=== PATIENT | female | born 1945 | race Caucasian/White ===

== ENCOUNTER 2021-12-21 13:40 | Inpatient (IN) | payer MEDICARE, OTHER, SELFPAY ==
[2021-12-23] VITALS (10 sets, daily range): BP systolic 118–134; BP diastolic 57–82; PULSE 78–99; RESP 20; TEMP 36.2–36.9; O2SAT 92–95
[2021-12-23] MEDS: PIPERACILLIN/TAZOBACTAM 3.375 GM INJ IVPB ×2 (06:25→12:00)
[2021-12-23] MEDS: ENOXAPARIN 40 MG/0.4 ML INJ SUBCUT ×2 (06:25→17:25)
[2021-12-23] MEDS: SODIUM CHLORIDE 0.9 % (FLUSH) 10 ML SYRINGE IVF ×5 (06:26→23:43)
[2021-12-23] MEDS: HEPARIN 500 UNIT/5 ML SYRINGE 250 UNIT IVF ×4 (06:26→18:24)
[2021-12-23 06:52] LABS: Basophils Percent Auto 1.1 % (0.0-3.0); Eosinophils Percent Auto 3.3 % (0.0-7.0); Hematocrit 32.8 % (33.0-51.0); Hemoglobin* 10.5 gm/dL (12.0-16.0); Immature Granulocytes Abs Auto 0.12 K/uL (0.00-0.30); Mean Corpuscular HGB Conc 32 gm/dL (32-36); Mean Corpuscular Hemoglobin 29 pg (26-34); Mean Corpuscular Volume 92 fL (80-100); Monocytes Percent Auto 8.8 % (0.0-11.0); Neutrophils Percent Auto 70.4 % (42.0-72.0); Platelet Count* 92 K/uL (140-440); Red Blood Count 3.58 m/uL (4.00-5.20); White Blood Count* 2.74 K/uL (4.50-11.00)
[2021-12-23] MEDS: HYDROCODONE-ACETAMIN 5-325 MG 1 TAB PO ×2 (06:57→21:33)
[2021-12-23 07:06] LABS: Chloride* 102 mmol/L (96-114); Potassium* 3.6 mmol/L (3.6-5.1); Sodium* 135 mmol/L (135-149)
[2021-12-23 07:08] LABS: Creatinine* 0.9 mg/dL (0.5-1.5); Est. Creatinine Clearance* 39.04; Estimated Glomerular Filt Rate 67.08
[2021-12-23 07:09] LABS: Blood Urea Nitrogen* 23 mg/dL (7-30); Calcium* 8.1 mg/dL (8.4-10.6); Carbon Dioxide* 28 mmol/L (20-32); Glucose* 85 mg/dL (60-115)
--- NOTE | 2021-12-23 07:23 | PC.NURSE ---
SHIFT NOTE -: Pt pleasant and cooperative, A&O. Afebrile, oxygen saturations 90% and greater on room air. Productive and frequent cough. tele reads SR and at times ST. Pt up 1 assist with gait belt and walker, SOB and weak but steady on her feet. PRN [place] given x2 for chronic pain, pt reported effectiveness. Left jugular central line is patent, labs drawn this AM.
[2021-12-23 07:27] LABS: INR 1.56 (0.91-1.10); Prothrombin Time 19.1 Seconds
[2021-12-23 07:59] LABS: Slide Review Reflex Yes
[2021-12-23 08:02] LABS: Slide Review Acceptable Review (Acceptable)
[2021-12-23] MEDS: LACTOBACILLUS ACIDOPHILUS 1 TABLET 1 TAB PO (08:43)
[2021-12-23] MEDS: prednisoLONE acetate 1 % DROPS 1 DROP EYE-LEFT ×2 (08:43→21:37)
[2021-12-23] MEDS: FOLIC ACID 1 MG TABLET 3 MG PO (08:43)
[2021-12-23] MEDS: ALBUTEROL SULFATE 2.5 MG/3 ML VIAL.NEB NEB ×2 (08:43→21:35)
[2021-12-23] MEDS: atenoloL 25 MG TABLET PO (08:43)
[2021-12-23] MEDS: predniSONE 1 MG TABLET 4 MG PO (08:44)
[2021-12-23] MEDS: PANTOPRAZOLE SODIUM 40 MG INJ IVP (11:12)
--- NOTE | 2021-12-23 11:57 | P.IMPN_ITS ---
Progress Note: A&P Assessment and plan (1) Severe aortic stenosis: Problem details: Most recent echocardiogram obtained on 12/22/2021, normal LV chamber size, mildly increased LV wall thickness, normal global systolic function, EF estimated at 57%. Aortic valve peak velocity 3.8 m/sec, peak gradient 58 mmHg, mean gradient 34 mmHg, aortic valve area 1.13 cm2, dimensionless index 0.32, stroke volume index 47.9 mL per meter squared. Status: Acute Assessment and Plan: Will add furosemide 20 mg daily, starting today. Will not add an DANIELLE-inhibitor due to the fact that this can cause pancytopenia. However will add an ARB, losartan, 12.5 mg daily starting today. Will need cardiology consultation sooner than planned recheck in February 2022. Reviewed with patient and daughter and they are agreeable. Answered their questions. (2) Mitral stenosis: Problem details: Most recent echocardiogram obtained on 12/22/2021, mitral stenosis has increased compared to last echocardiogram in August of 2021. Left atrial size not specified with previous echo demonstrating mild to moderate increase in left atrial size. Status: Acute Assessment and Plan: Take monitor based on response to treatments for aortic stenosis as specified. Continue to monitor pleural effusions. 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 (5) Diastolic heart failure with preserved ejection fraction: Status: Acute (6) Pleural effusion on right: Status: Acute Assessment and Plan: [place] furosemide at low doses because of severe aortic stenosis. Continue to monitor weight. (7) Pleural effusion on left: Status: Acute Assessment and Plan: [place] furosemide at low doses because of the severe aortic stenosis. Continue monitor weight. (8) Bronchiectasis with acute exacerbation: Status: Acute Assessment and Plan: For now continue with the piperacillin and tazobactam IV. (9) Paroxysmal atrial fibrillation: Status: Acute Assessment and Plan: Consider switching from atenolol to metoprolol. (10) Chronic anticoagulation: Status: Acute Assessment and Plan: Apixaban has been stopped. Minimal anticoagulation due to central line. (11) Epistaxis: Status: Acute Assessment and Plan: Generally improved since stopping the apixaban. 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 (15) High risk medications (not anticoagulants) long-term use: Status: Acute Assessment and Plan: On hold as specified above. (16) Chronic use of steroids: Status: Acute Assessment and Plan: Stress doses of prednisone 40 mg daily x2 days and then stop Continue with daily dosing of 4 mg daily. (17) Chronic kidney disease, stage 3a: Status: Acute (18) Abnormal LFTs (liver function tests): Status: Acute Assessment and Plan: Differential diagnosis includes medication induced, fatty liver, hepatic congestion (19) Protein calorie malnutrition: Status: Acute Assessment and Plan: Consider nutritional consultation. (20) Gastroesophageal reflux disease: Status: Acute Time Spent With Patient Total time spent: 45 minutes Subjective Time Seen by Provider: 10:00 Date Seen: 12/23/21 Interval history: Hospital day 3. Patient indicates she generally feels improved. Still has dyspnea with exertion. Continues to have cough productive purulent sputum but closer to her baseline. Denies fevers, rigors, diaphoresis. Generally weak. Tolerating oral intake. No nausea vomiting. Denies chest heaviness, pressure, tightness, or pain. Denies syncope or near-syncope. No palpitations. Still has a sense of orthopnea without paroxysmal nocturnal dyspnea. Exam Narrative: Exam Narrative: Awake, alert, oriented to self, place, time, situation. Pleasant disposition. Articulate cooperative. Mood and affect are congruent. Ecchymosis about her neck and upper chest, from attempted central line placement efforts. No JVD, hepatojugular reflux, or carotid bruits in the sitting upright position. Does have a murmur of aortic stenosis that radiates into both sides of the neck. Lungs with scattered rhonchi. Decreased breath sounds in both bases. No wheezing. No crackles. Heart tones with regular rhythm, normal S1-S2. Loud systolic murmur across the entire precordium. PMI is not laterally displaced. Abdomen with active bowel sounds. Soft. Nontender. No organomegaly or masses. Pre tibial edema mildly bilaterally as well as pedal edema bilaterally. Independent in transfer, station, and gait. No tremor, asterixis, or ataxia. Skin is dry, thin, multiple areas of ecchymosis. Does not have jaundice, cyanosis, or rashes. Current weight 78.3 kg compared to 77 kg yesterday. Const: Vital Signs, click to edit/add: Vital Signs - 24 hr 12/23/21 03:00 12/23/21 08:00 12/23/21 08:04 Temperature 98.4 F 98.0 F Pulse Rate 91 Pulse Rate [Right Brachial] 87 99 Respiratory Rate 20 20 Blood Pressure [Ri ght Radial Artery] 130/57 L 124/58 L Pulse Oximetry 95 94 Labs Labs: Laboratory Results - last 24 hr 12/23/21 12/23/21 12/23/21 06:30 06:30 06:30 WBC 2.74 L RBC 3.58 L Hgb 10.5 L Hct 32.8 L MCV 92 MCH 29 MCHC 32 RDW Coeff of Navneet 20.0 H Plt Count 92 L Neut % (Auto) 70.4 Lymph % (Auto) 12.0 L [place] % (Auto) 8.8 Eos % (Auto) 3.3 Baso % (Auto) 1.1 Neut # (Auto) 1.90 Lymph # (Auto) 0.30 L Roosevelt # (Auto) 0.20 Eos # (Auto) 0.10 Baso # (Auto) 0.00 Abs Immat Gran (auto) 0.12 Diff Slide Review Acceptable Review INR 1.56 H Sodium 135 Potassium 3.6 Chloride 102 Carbon Dioxide 28 BUN 23 Creatinine 0.9 Estimated Creat Clear 39.04 Glucose 85 Calcium 8.1 L
[2021-12-23] MEDS: FUROSEMIDE 20 MG TABLET PO (12:29)
[2021-12-23] MEDS: predniSONE 20 MG TABLET 40 MG PO (12:30)
--- NOTE | 2021-12-23 13:07 | PC.SOCIAL ---
Met with pt. today who is still hopeful she can discharge home with home care in place through [facility]. If pt needs a SNF she prefers the [facility]. Spoke with the LTCC on potential admit and they do have a bed but pt. would need to be done with her PICC line abx and one of her autoimmune drugs would need to be looked unto more for cost, since pt. would be under her Med A stay the SNF would pay for the medication. director of social services will continue to work on discharge planning needs.
--- NOTE | 2021-12-23 14:38 | RESP.RT ---
pt seen this AM and afternoon. F/U with aerobika, which she uses well. Also talked about increase in steroid and Lasix dose. Pt. teary this AM. Pt with very loose congested non productive cough, however her BS are diminished, but clear after coughing. Will continue to encourage her.
--- NOTE | 2021-12-23 14:51 | PC.NURSE ---
PATIENT'S VSS AND AFEBRILE. POSTERIOR LUNG SOUNDS WITH BIBASILAR CRACKLES AND ANTERIOR LUNG SOUNDS COARSE WITH EXPIRATORY WHEEZING. PATIENT HAS FREQUENT, MOIST SOUNDING COUGH THAT IS PRODUCTIVE WITH MODERATE AMOUNT GREEN SPUTUM. PATIENT REPORTS DECREASED APPETITE BUT DENIES N/V. PATIENT DOES C/O GENERALIZED PAIN R/T RHEUMATOID ARTHRITIS THAT IS IMPROVED WITH PAIN MEDS AND REST. UP WITH A1, WALKER AND GAIT BELT. TOLERATING ACTIVITY WELL BUT REPORTS INCREASED WEAKNESS. HEMOCULT x2 TODAY WERE NEGATIVE.
[2021-12-23] MEDS: PIPERACILLIN/TAZOBACTAM 3.375 GM in 0.9 % SODIUM CHLORIDE Mini-bag 100 ML IVPB ×2 (17:29→23:42)
[2021-12-23] MEDS: FERROUS SULFATE 325 MG TABLET PO (21:36)
--- NOTE | 2021-12-23 21:51 | PC.NURSE ---
Shift Note [id number]: Pt friendly and cooperative, increased energy since admission. Moves well with assist x1 with walker and GB to chair for supper and to BR. VS WNL. LS with fine bibasilar crackles, upper lobes COA. Pt diligent with aerobika use as well as TCDB. Rates pain 4-6/10, generalized r/t RA diagnosis. Manter given PRN. Good appetite with supper, pt ate 75% of eggs and toast. LE's elevated, non-pitting edema present. Central line patent, dressing is intact with old blood beneath and edges previously reinforced with tape. Albuterol and Saline nebs given at HS.
[2021-12-24] VITALS (11 sets, daily range): BP systolic 118–144; BP diastolic 61–72; PULSE 60–78; RESP 20; TEMP 36.1–36.6; O2SAT 93–96
[2021-12-24] MEDS: HEPARIN 500 UNIT/5 ML SYRINGE 250 UNIT IVF ×7 (00:31→19:26)
[2021-12-24] MEDS: SODIUM CHLORIDE 0.9 % (FLUSH) 10 ML SYRINGE IVF ×7 (04:23→18:22)
[2021-12-24] MEDS: HYDROCODONE-ACETAMIN 5-325 MG 1 TAB PO ×2 (04:46→14:47)
[2021-12-24] MEDS: PIPERACILLIN/TAZOBACTAM 3.375 GM in 0.9 % SODIUM CHLORIDE Mini-bag 100 ML IVPB ×3 (06:21→18:22)
[2021-12-24 06:54] LABS: Slide Review Reflex No
[2021-12-24 07:07] LABS: Basophils Percent Auto 0.3 % (0.0-3.0); Hematocrit 32.8 % (33.0-51.0); Hemoglobin* 10.5 gm/dL (12.0-16.0); Immature Granulocytes Abs Auto 0.04 K/uL (0.00-0.30); Mean Corpuscular HGB Conc 32 gm/dL (32-36); Mean Corpuscular Hemoglobin 29 pg (26-34); Mean Corpuscular Volume 92 fL (80-100); Monocytes Percent Auto 3.7 % (0.0-11.0); Neutrophils Percent Auto 84.8 % (42.0-72.0); Platelet Count* 120 K/uL (140-440); RDW Coefficient of Variation % 19.3 % (11.5-15.5); Red Blood Count 3.58 m/uL (4.00-5.20); White Blood Count* 3.21 K/uL (4.50-11.00)
[2021-12-24] MEDS: ENOXAPARIN 40 MG/0.4 ML INJ SUBCUT (07:12)
--- NOTE | 2021-12-24 07:34 | PC.NURSE ---
Shift note: The pt is pleasant and cooperative. Central line to Left Jaguar vein has been intact and patent; has been locked with Heparin per protocol; Bruises noted under the dressing. Multiple bruises noted to neck , upper extremities. Short of breath with exertion, she has been in RA. Coughing up yellowish to white sputum. Tele has been NSR. The pt denied chest pain and other distress.
[2021-12-24 07:35] LABS: Albumin* 2.6 g/dL (3.3-5.0); Chloride* 100 mmol/L (96-114); INR 1.19 (0.91-1.10); Potassium* 3.6 mmol/L (3.6-5.1); Prothrombin Time 15.6 Seconds; Sodium* 133 mmol/L (135-149)
[2021-12-24 07:37] LABS: Creatinine* 0.9 mg/dL (0.5-1.5); Est. Creatinine Clearance* 39.04; Estimated Glomerular Filt Rate 67.08
[2021-12-24 07:38] LABS: Alanine Aminotransferase* 45 U/L (4-35); Alkaline Phosphatase* 170 U/L (40-150); Aspartate Amino Transferase* 72 U/L (12-35); Bilirubin Direct* 0.5 mg/dL (0.0-0.5); Bilirubin Total* 1.1 mg/dL (0.1-1.5); Blood Urea Nitrogen* 24 mg/dL (7-30); Calcium* 8.2 mg/dL (8.4-10.6); Carbon Dioxide* 26 mmol/L (20-32); Glucose* 115 mg/dL (60-115); Total Protein* 5.1 g/dL (6.0-8.3)
[2021-12-24] MEDS: predniSONE 20 MG TABLET 40 MG PO (07:38)
[2021-12-24 07:55] LABS: C Reactive Protein* 25.1 mg/dL (0.5-1.0)
[2021-12-24] MEDS: ALBUTEROL SULFATE 2.5 MG/3 ML VIAL.NEB NEB ×2 (08:51→20:32)
[2021-12-24] MEDS: predniSONE 1 MG TABLET 4 MG PO (08:52)
[2021-12-24] MEDS: FUROSEMIDE 20 MG TABLET PO (08:52)
[2021-12-24] MEDS: FOLIC ACID 1 MG TABLET 3 MG PO (08:52)
[2021-12-24] MEDS: LACTOBACILLUS ACIDOPHILUS 1 TABLET 1 TAB PO (08:52)
[2021-12-24] MEDS: atenoloL 25 MG TABLET PO (08:53)
[2021-12-24] MEDS: prednisoLONE acetate 1 % DROPS 1 DROP EYE-LEFT ×2 (09:00→20:32)
--- NOTE | 2021-12-24 10:26 | RESP.RT ---
Pt looking better today sitting in chair. Talking a neb and using aerobika. Reviewed at her request the proper way to take a neb treatment. SPO2 94% on RA. RR 16. BBS decreased with some Crackles. following pt at her request.
--- NOTE | 2021-12-24 10:50 | PC.SOCIAL ---
Met with pt. again to discuss discharge plans. Pt. states she feels better today and is still hoping to discharge home with home care at discharge. Pt. had been set up with [facility] for PT and OT. Pt. would like to add a SERVICE ADMINISTRATOR for bathing if they have availability. She is open to a nurse if recommended by physician. When pt. is closer to discharge will contact [facility] to update and send new orders.
--- NOTE | 2021-12-24 10:51 | CT_ITS ---
Final Report Patient: BRYCE STALLINGS Facility:?[facility] Patient ID:?[id number] Site Patient ID:?[id number]. Site :?[id number] Study:?CT Chest W/ 95CC ISOVUE-370 PE PROTOCOL-12/24/2021 11:54:25 AM Ordering Physician:Macy Giron Final Report: INDICATION: Bilateral pleural effusions. Patient with a history of pulmonary emboli. COMPARISON: No prior transaxial studies of the chest TECHNIQUE: : CT examination of the chest was performed with the uneventful intravenous administration of 95 cc of Isovue 3 7 while thin axial sections were obtained from above the apices of the lungs to the lung bases. Please note that all CT scans at this facility use dose modulation, iterative reconstruction, and/or weight-based dosing when appropriate to reduce radiation dose to as low as reasonably achievable. FINDINGS: : HEART and MEDIASTINUM: The heart size is normal. There is no mediastinal or hilar adenopathy or mass. There is no pericardial effusion.There is atherosclerotic vascular and valvular calcifications PULMONARY ARTERIAL CIRCULATION: There is no visible intraluminal filling defect to suggest pulmonary embolus. LUNGS: There is atelectasis of the lower lobes related to large bilateral effusions. Regarding the aerated lungs away from the atelectasis, no abnormalities are visible. PLEURAL SPACES: Significant bilateral effusions, right larger than left. The left effusion appears to be near entirely free-flowing. The right effusion has both free-flowing and loculated components VISUALIZED UPPER ABDOMEN: Status post cholecystectomy. Granulomatous calcifications of the spleen limited visualized upper abdominal structures appear normal. OSSEOUS STRUCTURES: Degenerative changes. Kyphosis. Bony ankylosis the dorsal spine. TUBES and LINES: None. IMPRESSION: 1. There is no indication of pulmonary embolus. 2. Significant bilateral pleural effusions, right larger than left. The left is nearly entirely free-flowing. The right is a mix of free-flowing and loculated fluid. 3. Bibasilar atelectasis with collapse of both lower lobes probably related to passive atelectasis from the effusions. The lungs anterior to the atelectasis appear normal. Please note that all CT scans at this facility use dose modulation, iterative reconstruction, and/or weight-based dosing when appropriate to reduce radiation dose to as low as reasonably achievable. Dictated by Luan Chang MD @ 12/24/2021 12:38:42 PM (Electronic Signature)
[2021-12-24] MEDS: FUROSEMIDE 40 MG TABLET PO (11:31)
[2021-12-24] MEDS: PANTOPRAZOLE SODIUM 40 MG INJ IVP (12:03)
[2021-12-24] MEDS: LOSARTAN POTASSIUM 50 MG TABLET 12.5 MG PO (12:05)
--- NOTE | 2021-12-24 15:49 | PM.IMPN1 ---
Progress Note: A&P Assessment and plan (1) Diastolic congestive heart failure due to valvular disease: Status: Acute Assessment and Plan: Patient has been assessed for valve replacement. We will stabilize her from an acute heart failure exacerbation and arrange cardiology follow-up soon after discharge. (2) Severe aortic stenosis: Problem details: Most recent echocardiogram obtained on 12/22/2021, normal LV chamber size, mildly increased LV wall thickness, normal global systolic function, EF estimated at 57%. Aortic valve peak velocity 3.8 m/sec, peak gradient 58 mmHg, mean gradient 34 mmHg, aortic valve area 1.13 cm2, dimensionless index 0.32, stroke volume index 47.9 mL per meter squared. Status: Acute Assessment and Plan: As above (3) Paroxysmal atrial fibrillation: Status: Acute Assessment and Plan: Rate controlled. Holding anticoagulation for 2 reasons. First, recurrent epistaxis. 2. Need for thoracentesis tomorrow. (4) Abnormal LFTs (liver function tests): Status: Acute Assessment and Plan: Trending. (5) Pancytopenia: Status: Acute Assessment and Plan: Improving. Likely from iatrogenic medication administration (6) Bilateral pleural effusion: Status: Acute Assessment and Plan: Discussed with general surgery. We will pursue diagnostic and possible therapeutic thoracentesis in the morning. Hold anticoagulation (7) Bronchiectasis with acute exacerbation: Status: Acute Assessment and Plan: on broad spectrum antibiotics currently Subjective Interval history: Daily Progress Note - Hospital Medicine Day #: 4 CC: Pneumonia versus atelectasis with bilateral effusions, history of strep pneumo bacteremia, pancytopenia OVERNIGHT UPDATES FROM STAFF & MED, LAB, IMAGING UPDATES Patient feels a little bit better today. We have got her Lasix reordered. She is on 20 mg daily, starting yesterday. I added a 40 mg dose this morning for a total of 60 mg. Her weight is stable. All of her pancytopenia numbers are generally improving or at least stable. I reimaged her chest which showed moderate pleural effusions that appear unchanged over the last 9 days. These were new from her admission earlier this month. She is on broad-spectrum antibiotics to cover for pneumonia however the CT today may indicate that this is more compressive atelectasis. Afebrile 118/62, 136/67 Pulse rate 76 Respiratory rate 20 Pulse ox 93% on room air Weight 78.8 kilos WBC count has increased to 3.2 from 2.7 Hemoglobin is stable at 10.5 Platelet count has increased from 92-120 Sodium is a touch low at 133 Liver enzymes are slowly increasing. AST has gone from 56-67 and today 72 ALT has increased from 43-40 7-45 Alk-phos 171, 165, 170 Total bilirubin 2.1 but that is down to 1.1 CRP initially 24.3 and this is 25, down from [address] chest this morning 1. There is no indication of pulmonary embolus. 2. Significant bilateral pleural effusions, right larger than left. The left is nearly entirely free-flowing. The right is a mix of free-flowing and loculated fluid. 3. Bibasilar atelectasis with collapse of both lower lobes probably related to passive atelectasis from the effusions. The lungs anterior to the atelectasis appear normal. Review of Systems: See subjective Cardiac: No new chest pain/pressure/palpitations. Respiratory: no new dyspnea. GI: No abdominal bloating Objective: A pleasant. Alert. No acute distress. Vitals: see above Lungs: Diffuse rhonchi, decreased at the bases Cardiac: Holosystolic loud systolic ejection murmur consistent with her known severe , radiates to the axilla bilaterally. One to 2+ pedal edema Disposition/Potential discharge - Likely to return to previous living situation. Total time is 35 minutes with greater than 50% spent in counseling and coordination of care. Exam Const: Vital Signs, click to edit/add: Vital Signs - 24 hr 12/23/21 16:00 12/23/21 20:09 12/23/21 21:33 Temperature 97.7 F 97.5 F L 97.5 F L Pulse Rate Pulse Rate [Apical ] Pulse Rate [Right Brachial] 86 81 Respiratory Rate 20 20 Blood Pressure [Ri ght Radial Artery] 132/71 118/61 Pulse Oximetry 92 93 12/23/21 23:40 12/23/21 23:52 12/24/21 00:11 Temperature 97.7 F Pulse Rate 69 Pulse Rate [Apical ] 83 Pulse Rate [Right Brachial] 83 83 Respiratory Rate 20 20 Blood Pressure [Ri ght Radial Artery] 127/64 Pulse Oximetry 95 12/24/21 04:25 12/24/21 07:00 12/24/21 07:28 Temperature 97.7 F Pulse Rate 60 Pulse Rate [Apical ] Pulse Rate [Right Brachial] 76 76 Respiratory Rate 20 20 Blood Pressure [Ri t Radial Artery] 144/69 H Pulse Oximetry 93 12/24/21 08:34 12/24/21 11:36 Temperature 97.8 F 97.7 F Pulse Rate Pulse Rate [Apical ] Pulse Rate [Right Brachial] 76 76 Respiratory Rate 20 20 Blood Pressure [Ri t Radial Artery] 136/67 118/62 Pulse Oximetry 93 93 Labs Labs: Laboratory Results - last 24 hr 12/24/21 12/24/21 12/24/21 06:30 06:30 06:30 WBC 3.21 L RBC 3.58 L Hgb 10.5 L Hct 32.8 L MCV 92 MCH 29 MCHC 32 RDW Coeff of Nav[place] 19.3 H Plt Count 120 L Neut % (Auto) 84.8 H Lymph % (Auto) 10.0 L [place] % (Auto) 3.7 Eos % (Auto) 0.0 Baso % (Auto) 0.3 Neut # (Auto) 2.70 Lymph # (Auto) 0.30 L [place] # (Auto) 0.10 Eos # (Auto) 0.00 Baso # (Auto) 0.00 Abs Immat Gran (auto) 0.04 INR 1.19 H Sodium 133 L Potassium 3.6 Chloride 100 Carbon Dioxide 26 BUN 24 Creatinine 0.9 Estimated Creat Clear 39.04 Glucose 115 Calcium 8.2 L Total Bilirubin 1.1 Direct Bilirubin 0.5 AST 72 H ALT 45 H Alkaline Phosphatase 170 H C-Reactive Protein 25.1 H Total Protein 5.1 L Albumin 2.6 L
[2021-12-24] MEDS: 0.9 % SODIUM CHLORIDE 250 ml IV (18:22)
[2021-12-24 19:14] LABS: NT Pro B Type NatriureticPept* 2740 PG/mL (0-125)
--- NOTE | 2021-12-24 19:41 | PC.NURSE ---
Pt is pleasant and cooperative, oriented x3. Central line to Left Jaguar vein has been intact and patent; has been locked with Heparin per protocol; Bruises noted under the dressing. Multiple bruises noted to neck , upper extremities. Short of breath with exertion, she has? been in RA. Coughing up clear sputum. Tele has been NSR. The pt denied chest pain and other distress.
[2021-12-24] MEDS: FERROUS SULFATE 325 MG TABLET PO (20:32)
[2021-12-25] VITALS (9 sets, daily range): BP systolic 111–153; BP diastolic 51–68; PULSE 65–91; RESP 16–20; TEMP 36.1–37.1; O2SAT 90–95
[2021-12-25] MEDS: PIPERACILLIN/TAZOBACTAM 3.375 GM in 0.9 % SODIUM CHLORIDE Mini-bag 100 ML IVPB ×5 (00:29→23:49)
[2021-12-25] MEDS: SODIUM CHLORIDE 0.9 % (FLUSH) 10 ML SYRINGE IVF ×11 (00:29→23:55)
[2021-12-25] MEDS: HEPARIN 500 UNIT/5 ML SYRINGE 250 UNIT IVF ×8 (01:24→18:32)
[2021-12-25] MEDS: HYDROCODONE-ACETAMIN 5-325 MG 1 TAB PO ×3 (03:52→23:50)
--- NOTE | 2021-12-25 07:03 | PC.NURSE ---
Shift note: The pt has been very pleasant and cooperative. The pt has been coughing less this shift; small clear sputum . She has been reporting mild joint pain; the pain has been managed with PRN pain medication. Still short of breath with exertion. Her energy has been improving gradually. King been in RA with Spo2 the 90s. She denied chest pain and other distress. Central dressing was changed last evening by following sterile technique and masking up the pt ; Biopatch was unable to attach to the insertions site due to central line catheter thickness- the pt tolerated the procedure with small pain while taking off the old dressing.
[2021-12-25 07:24] LABS: HCO3 VBG 30 mmol/L (21-28); PCO2 VBG 43 mmHG (40-50); pH VBG 7.451 (7.32-7.43)
[2021-12-25 07:39] LABS: Hematocrit 28.5 % (33.0-51.0); Hemoglobin* 9.2 gm/dL (12.0-16.0); Mean Corpuscular HGB Conc 32 gm/dL (32-36); Mean Corpuscular Hemoglobin 30 pg (26-34); Mean Corpuscular Volume 93 fL (80-100); Platelet Count* 166 K/uL (140-440); Red Blood Count 3.07 m/uL (4.00-5.20); White Blood Count* 3.12 K/uL (4.50-11.00)
[2021-12-25 07:47] LABS: Slide Review Reflex No
[2021-12-25 08:05] LABS: Albumin* 2.6 g/dL (3.3-5.0); Chloride* 102 mmol/L (96-114); Potassium* 3.1 mmol/L (3.6-5.1); Sodium* 137 mmol/L (135-149)
[2021-12-25 08:07] LABS: Creatinine* 0.9 mg/dL (0.5-1.5); Est. Creatinine Clearance* 39.04; Estimated Glomerular Filt Rate 67.08
[2021-12-25 08:08] LABS: Alkaline Phosphatase* 155 U/L (40-150); Aspartate Amino Transferase* 154 U/L (12-35); Bilirubin Total* 1.1 mg/dL (0.1-1.5); Blood Urea Nitrogen* 26 mg/dL (7-30); Carbon Dioxide* 28 mmol/L (20-32); Glucose* 79 mg/dL (60-115); Total Protein* 5.2 g/dL (6.0-8.3)
[2021-12-25 08:09] LABS: Alanine Aminotransferase* 75 U/L (4-35); Calcium* 8.1 mg/dL (8.4-10.6); Magnesium* 2.2 mg/dL (1.5-2.6)
[2021-12-25 08:26] LABS: C Reactive Protein* 18.2 mg/dL (0.5-1.0)
[2021-12-25] MEDS: LOSARTAN POTASSIUM 50 MG TABLET 12.5 MG PO (10:19)
[2021-12-25] MEDS: FOLIC ACID 1 MG TABLET 3 MG PO (10:20)
[2021-12-25] MEDS: predniSONE 1 MG TABLET 4 MG PO (10:21)
[2021-12-25] MEDS: LACTOBACILLUS ACIDOPHILUS 1 TABLET 1 TAB PO (10:22)
--- NOTE | 2021-12-25 10:22 | CRLHL7_ITS ---
For Patients: As a result of the Cures Act, medical imaging exams and procedure reports are released immediately into your electronic medical record. You may view this report before your referring provider. If you have questions, please contact your health care provider. Indication: Post thoracentesis Technique: Portable chest Comparison: Chest x-ray 12/22/2021 Findings: Stable cardiac mediastinal silhouette. Left PICC line unchanged. Bilateral small to moderate effusions not significantly changed. Probable underlying atelectasis and/or consolidation. No pneumothorax is seen. Impression: No pneumothorax. Dictated by Yue Ding MD @ 12/25/2021 10:58:21 AM (Electronically Signed)
[2021-12-25] MEDS: ALBUTEROL SULFATE 2.5 MG/3 ML VIAL.NEB NEB ×2 (10:23→20:58)
[2021-12-25] MEDS: atenoloL 25 MG TABLET PO (10:23)
[2021-12-25] MEDS: FUROSEMIDE 20 MG TABLET PO (10:23)
[2021-12-25] MEDS: prednisoLONE acetate 1 % DROPS 1 DROP EYE-LEFT ×2 (10:24→20:59)
--- NOTE | 2021-12-25 10:37 | P.PCN_ITS ---
Procedure Note Date Seen: 12/25/21 Date of procedure: 12/25/21 Will [facility] bill your pro fee for this procedure?: Yes Pre-op diagnosis: Bilateral pleural effusion Post-op diagnosis: same Procedure: Right thoracentesis with ultrasound guidance. After discussion of the risks and benefits the patient was placed in a seated position leaning over a table. Ultrasound guidance was used to identify the effusion. The patient had significant loculations on the right side. There was a very small window which was noted that appeared to be away from tethered lung as well as the diaphragm. I decided to attempt to aspirate fluid at least for diagnostic purposes. Once this was done the site was marked. The area was prepped and draped in the usual sterile fashion. Local anesthetic was used to anesthetize the skin and subcutaneous tissue down to the rib. Once the rib was encountered, an 18 gauge needle the needle was then used to again find the rib and was advanced over the top of the rib into the pleural space. This was done using ultrasound guidance. Blood-tinged fluid was aspirated. I was only able to aspirate 10 mL. At this point no further fluid returned. The needle was removed and dressing was placed over the stick site. Specimens were sent for chemistry, culture and cytology. Patient tolerated the procedure well. Estimated blood loss 1 mL Postprocedure chest x-ray revealed no pneumothorax. Anesthesia: local Surgeon: Nicole Blackwood Pathology: specimen obtained, sent to pathology Condition: stable Disposition: floor
[2021-12-25] MEDS: PANTOPRAZOLE SODIUM 40 MG INJ IVP (12:15)
--- NOTE | 2021-12-25 12:36 | PM.IMPN1 ---
Progress Note: A&P Assessment and plan (1) Bilateral pleural effusion: Status: Acute Assessment and Plan: General surgery attempted thoracentesis of the right lung today. Very little was removed due to loculations. Serosanguineous. Awaiting lab analysis. Considered either to be from acute CHF/valvular disease or possible empyema. continue abx CT yesterday of the chest was reviewed with the patient We held anticoagulation secondary to thoracentesis. Will restart that now. (2) Pancytopenia: Status: Acute Assessment and Plan: Hemoglobin worse. Platelets improved. Neutropenia stable. Thought likely to be related to recent med administration. Continue to monitor. (3) Bronchiectasis with acute exacerbation: Status: Acute Assessment and Plan: History of chronic bronchiectasis, strep pneumo bacteremia pneumonia. Patient was a readmission shortly after discharge. Can you on Zosyn. Reviewed CT for evidence of consolidation. None found. There is compressive atelectasis with loculated effusions. May need transfer to a cardiothoracic service. (4) Hypokalemia: Status: Acute Assessment and Plan: Replace. (5) Chronic anticoagulation: Status: Acute Assessment and Plan: Restarting low-dose apixaban (6) Chronic use of steroids: Status: Acute Assessment and Plan: Received 2 days of increased dose prednisone. Will return back to her 4 mg daily does (7) Chronic kidney disease, stage 3a: Status: Acute Assessment and Plan: Stable disease. (8) Diastolic congestive heart failure due to valvular disease: Problem details: Most recent echocardiogram obtained on 12/22/2021, normal LV chamber size, mildly increased LV wall thickness, normal global systolic function, EF estimated at 57%. Aortic valve peak velocity 3.8 m/sec, peak gradient 58 mmHg, mean gradient 34 mmHg, aortic valve area 1.13 cm2, dimensionless index 0.32, stroke volume index 47.9 mL per meter squared. Status: Acute Assessment and Plan: And gentle approach to her diuresis. Currently on 40 mg p.o. daily (9) Severe aortic stenosis: Problem details: Most recent echocardiogram obtained on 12/22/2021, normal LV chamber size, mildly increased LV wall thickness, normal global systolic function, EF estimated at 57%. Aortic valve peak velocity 3.8 m/sec, peak gradient 58 mmHg, mean gradient 34 mmHg, aortic valve area 1.13 cm2, dimensionless index 0.32, stroke volume index 47.9 mL per meter squared. Status: Acute (10) Paroxysmal atrial fibrillation: Status: Acute Assessment and Plan: rate controlled and back on OAC Subjective Interval history: Daily Progress Note - Hospital Medicine Day #: 5 Day 5 of Zosyn, q.6 Central Line Day CC: Pneumonia versus atelectasis with bilateral effusions, history of strep pneumo bacteremia, pancytopenia OVERNIGHT UPDATES FROM STAFF & MED, LAB, IMAGING UPDATES slightly improved. more energy. rested well. still coughing. ate well this morning. Afebrile Blood pressure 115/59, 153/68 Pulse rate 70s to 80s Respiratory rate 16 Ox 95% on room air Weight is down to 76.9 from 78 0.8 Pancytopenia: Hemoglobin has drifted down to 9.2, white blood cell count is stable at 3.1 Platelets have rebounded nicely to 166 Blood gas this morning is stable with a pH of 7.4, pCO2 is normal Potassium is dropped to 3.1 otherwise normal renal function CRP has down trended from 25-18 LFTs continue to fluctuate but mildly elevated CT yesterday communicated with patient. Showed the bilateral effusions. Concern for loculations. Thoracentesis was ordered and described below. Review of Systems: See subjective Cardiac: No new chest pain/pressure/palpitations. Respiratory: no new dyspnea. GI: No abdominal bloating Objective: Insightful. Asking questions. Ate her breakfast. Vitals: see above Lungs: Diminished. Scattered rhonchi. Cardiac: Holosystolic ejection murmur. Disposition/Potential discharge - Likely to return to previous living situation. Total time is 35 minutes with greater than 50% spent in counseling and coordination of care. Exam Const: Vital Signs, click to edit/add: Vital Signs - 24 hr 12/24/21 15:00 12/24/21 16:00 12/24/21 16:10 Temperature 97.8 F Pulse Rate 78 Pulse Rate [Apical ] Pulse Rate [Right Brachial] 70 76 Respiratory Rate 20 20 Blood Pressure [Ri ght Radial Artery] 136/67 Pulse Oximetry 93 93 12/24/21 19:30 12/24/21 23:55 12/25/21 01:37 Temperature 97.6 F 97 F L Pulse Rate 65 Pulse Rate [Apical ] 75 70 Pulse Rate [Right Brachial] 75 70 Respiratory Rate 20 20 Blood Pressure [Ri ght Radial Artery] 118/72 130/61 Pulse Oximetry 95 96 12/25/21 03:49 12/25/21 07:47 12/25/21 10:20 Temperature 97 F L 97.6 F Pulse Rate 65 Pulse Rate [Apical ] 70 Pulse Rate [Right Brachial] 73 73 89 Respiratory Rate 20 16 Blood Pressure [Ri ght Radial Artery] 116/66 153/68 H 115/59 L Pulse Oximetry 92 95 Labs Labs: Laboratory Results - last 24 hr 12/24/21 12/25/21 12/25/21 18:08 06:20 06:20 WBC 3.12 L RBC 3.07 L Hgb 9.2 L Hct 28.5 L MCV 93 MCH 30 MCHC 32 Plt Count 166 VBG pH VBG pCO2 VBG pO2 VBG HCO3 Sodium 137 Potassium 3.1 L Chloride 102 Carbon Dioxide 28 BUN 26 Creatinine 0.9 Estimated Creat Clear 39.04 Glucose 79 Calcium 8.1 L Magnesium 2.2 Total Bilirubin 1.1 AST 154 H ALT 75 H Alkaline Phosphatase 155 H C-Reactive Protein 18.2 H NT-Pro-B Natriuret Pep 2740 H Total Protein 5.2 L Albumin 2.6 L 12/25/21 06:20 WBC RBC Hgb Hct MCV MCH MCHC Plt Count VBG pH 7.451 H VBG pCO2 43 VBG pO2 44.0 VBG HCO3 30 H Sodium Potassium Chloride Carbon Dioxide BUN Creatinine Estimated Creat Clear Glucose Calcium Magnesium Total Bilirubin AST ALT Alkaline Phosphatase C-Reactive Protein NT-Pro-B Natriuret Pep Total Protein Albumin
[2021-12-25 12:42] LABS: pH Body Fluid* 8.5
[2021-12-25 12:45] LABS: Albumin Body Fluid* 1.5 gm/dL; Amylase Body Fluid* < 30 U/L; Cholesterol Body Fluid* < 50 mg/dL
[2021-12-25 12:46] LABS: Glucose Body Fluid* 37 mg/dL
[2021-12-25] MEDS: APIXABAN 5 MG TABLET 2.5 MG PO ×2 (13:14→20:58)
[2021-12-25] MEDS: POTASSIUM CHLORIDE 10 MEQ/100 ML PIGGYBACK 100 MEQ IVPB ×2 (13:23→15:06)
[2021-12-25] MEDS: FUROSEMIDE 40 MG TABLET PO (13:24)
[2021-12-25 17:17] LABS: Procalcitonin* 0.69 ng/mL (<0.50)
[2021-12-25] MEDS: POTASSIUM CHLORIDE 10 MEQ CAPSULE ER 20 MEQ PO (17:57)
--- NOTE | 2021-12-25 18:41 | PC.NURSE ---
End of Shift: Patient pleasant and cooperative. Patient is vitally stable, lung course anteriorly and with crackles posteriorly, BS WNL, Central line heprin locked. Patient rated pain at most 7/10, generalized pain and requested norco once. Patient is SBA with walker to the toilet. Patient is urinating and had 2 loose BM's this shift. Patient is tolerating regular diet. Patient's cough is productive occasionally with a small amount of clear sputum. Thoracentesis performed today only 10cc's removed.
[2021-12-25 19:05] LABS: NT Pro B Type NatriureticPept* 2140 PG/mL (0-125)
[2021-12-25 19:20] LABS: Procalcitonin* 0.65 ng/mL (<0.50)
[2021-12-25] MEDS: FERROUS SULFATE 325 MG TABLET PO (20:59)
[2021-12-25] MEDS: 0.9 % SODIUM CHLORIDE 250 ml IV (23:50)
[2021-12-26] VITALS (9 sets, daily range): BP systolic 120–133; BP diastolic 55–61; PULSE 71–96; RESP 18–20; TEMP 36–37; O2SAT 94–96
[2021-12-26] MEDS: HEPARIN 500 UNIT/5 ML SYRINGE 250 UNIT IVF ×4 (03:55→18:53)
[2021-12-26] MEDS: SODIUM CHLORIDE 0.9 % (FLUSH) 10 ML SYRINGE IVF ×6 (03:56→18:54)
[2021-12-26] MEDS: PIPERACILLIN/TAZOBACTAM 3.375 GM in 0.9 % SODIUM CHLORIDE Mini-bag 100 ML IVPB ×4 (06:16→23:44)
[2021-12-26] MEDS: HYDROCODONE-ACETAMIN 5-325 MG 1 TAB PO (06:34)
--- NOTE | 2021-12-26 07:17 | PC.NURSE ---
Shift note; The pt has been reporting mild short of breath with exertion; she has been coughing small clear sputum. She denied chest pain. Pain has been managed with PRN [place]. Central Lumens have been flushed with saline and Locked with heparin as ordered. Blood was drawn from the line this AM without any difficulties. The pt refused to get her daily weight done at 0600 I'm comfortable
[2021-12-26 07:27] LABS: HCO3 VBG 29 mmol/L (21-28); PCO2 VBG 43 mmHG (40-50); PO2 VBG 36.7 mmHG (25-47); pH VBG 7.442 (7.32-7.43)
[2021-12-26] MEDS: POTASSIUM CHLORIDE 10 MEQ CAPSULE ER 20 MEQ PO ×2 (07:38→17:50)
[2021-12-26 07:48] LABS: Albumin* 2.7 g/dL (3.3-5.0); Chloride* 105 mmol/L (96-114); Potassium* 3.6 mmol/L (3.6-5.1); Sodium* 137 mmol/L (135-149)
[2021-12-26 07:50] LABS: Bilirubin Total* 1.2 mg/dL (0.1-1.5); Carbon Dioxide* 30 mmol/L (20-32); Creatinine* 1.1 mg/dL (0.5-1.5); Est. Creatinine Clearance* 35.49; Estimated Glomerular Filt Rate 52.73; Hematocrit 30.5 % (33.0-51.0); Hemoglobin* 9.6 gm/dL (12.0-16.0); Mean Corpuscular HGB Conc 32 gm/dL (32-36); Mean Corpuscular Hemoglobin 30 pg (26-34); Mean Corpuscular Volume 94 fL (80-100); Platelet Count* 161 K/uL (140-440); Red Blood Count 3.23 m/uL (4.00-5.20)
[2021-12-26 07:51] LABS: Alanine Aminotransferase* 70 U/L (4-35); Alkaline Phosphatase* 154 U/L (40-150); Aspartate Amino Transferase* 93 U/L (12-35); Blood Urea Nitrogen* 28 mg/dL (7-30); Calcium* 8.1 mg/dL (8.4-10.6); Glucose* 79 mg/dL (60-115); Magnesium* 2.1 mg/dL (1.5-2.6)
[2021-12-26 08:33] LABS: C Reactive Protein* 14.6 mg/dL (0.5-1.0)
[2021-12-26 08:47] LABS: White Blood Count* 1.59 K/uL (4.50-11.00)
[2021-12-26 08:52] LABS: Slide Review Reflex Yes
[2021-12-26] MEDS: predniSONE 1 MG TABLET 4 MG PO (08:57)
[2021-12-26] MEDS: atenoloL 25 MG TABLET PO (08:58)
[2021-12-26] MEDS: FUROSEMIDE 40 MG TABLET PO (08:59)
[2021-12-26] MEDS: ALBUTEROL SULFATE 2.5 MG/3 ML VIAL.NEB NEB ×2 (08:59→20:57)
[2021-12-26] MEDS: LACTOBACILLUS ACIDOPHILUS 1 TABLET 1 TAB PO (09:00)
[2021-12-26] MEDS: LOSARTAN POTASSIUM 50 MG TABLET 12.5 MG PO (09:00)
[2021-12-26] MEDS: APIXABAN 5 MG TABLET 2.5 MG PO ×2 (09:02→20:58)
[2021-12-26] MEDS: FOLIC ACID 1 MG TABLET 3 MG PO (09:04)
[2021-12-26] MEDS: prednisoLONE acetate 1 % DROPS 1 DROP EYE-LEFT ×2 (10:20→21:23)
[2021-12-26] MEDS: PANTOPRAZOLE SODIUM 40 MG INJ IVP (12:24)
[2021-12-26 14:06] LABS: Slide Review Acceptable Review (Acceptable)
[2021-12-26 16:02] LABS: ABG PCO2 34 mmHG (35-45); HCO3 ABG 26 mmol/L (21-28); PO2 ABG 63.7 mmHG (80-105); pH ABG 7.49 (7.35-7.45)
[2021-12-26 17:04] LABS: Base Excess ABG 2.8 mmol/L (-3.0-3.0); Oxygen Saturation ABG 94 % (92-100); TCO2 ABG 24 mmol/l (21-30)
--- NOTE | 2021-12-26 20:14 | P.IMPN_ITS ---
Progress Note: A&P Assessment and plan (1) Bilateral pleural effusion: Status: Acute Assessment and Plan: Room air, right side is loculated, left side free flowing. Right sided thoracentesis is apparently transudative. Negative culture and Gram stain. Likely will need some sort of interventional client account specialist, IR for drainage and relief of burden related to her effusions. May greatest concern is that her strep pneumo bacteremia seated the right-sided effusion. But generally they are from her worsening valvular heart disease. (2) Pancytopenia: Status: Acute Assessment and Plan: Myelodysplastic syndrome related to chronic illness with acute exacerbation, verses iatrogenic medicine effect She may need more blood transfused this weekend She would benefit from a Hematology consultation (3) Bronchiectasis with acute exacerbation: Status: Acute Assessment and Plan: Continues on broad-spectrum antibiotics. Sputum culture has returned. Blood cultures are negative. Procalcitonin mildly elevated. I suspect the c onsolidative appearance on a chest x-ray is better explained by CT which shows compression atelectasis from her bilateral effusions. (4) Severe aortic stenosis: Problem details: Most recent echocardiogram obtained on 12/22/2021, normal LV chamber size, mildly increased LV wall thickness, normal global systolic function, EF estimated at 57%. Aortic valve peak velocity 3.8 m/sec, peak gradient 58 mmHg, mean gradient 34 mmHg, aortic valve area 1.13 cm2, dimensionless index 0.32, stroke volume index 47.9 mL per meter squared. Status: Acute Assessment and Plan: Noted. (5) Diastolic congestive heart failure due to valvular disease: Problem details: Most recent echocardiogram obtained on 12/22/2021, normal LV chamber size, mildly increased LV wall thickness, normal global systolic function, EF estimated at 57%. Aortic valve peak velocity 3.8 m/sec, peak gradient 58 mmHg, mean gradient 34 mmHg, aortic valve area 1.13 cm2, dimensionless index 0.32, stroke volume i ndex 47.9 mL per meter squared. Status: Acute Assessment and Plan: Noted. Ongoing diuresis. (6) Chronic kidney disease, stage 3a: Status: Acute Assessment and Plan: Stable (7) Chronic use of steroids: Status: Acute Assessment and Plan: She received 2 days of increased prednisone, 40 mg. Now back to 4 mg daily. (8) Chronic anticoagulation: Status: Acute Assessment and Plan: High risk for PE. Back on low-dose 2.5 mg apixaban. Plan I spoke with the medical professionals of the day with the [facility] [place]'s at approximately 9:00 p.m.. December 26. He agreed that Interventional Pulmonary Medicine or Interventional Radiology would be best to assess her ongoing effusions. A cardiology consult to help manage diuresis and cardiac function. Id and or Hematology to address her caicedo cytopenia. Number, there were no beds tonight. Her case is open for possible transfer this weekend. Time Spent With Patient Total time spent: Thirty-five Subjective Interval history: Daily Progress Note - Hospital Medicine Day #: 6 CC: Aortic stenosis, large pulmonary effusions, history of strep pneumo OVERNIGHT UPDATES FROM STAFF & MED, LAB, IMAGING UPDATES 120/55 Pulse 91 Respirations 20 Afebrile Room air 94% 70 kilos CBC reflects an ongoing neutropenia, worse today. 1.59, ANC 1335. Initial white blood cell count was 6.94 Hemoglobin 9.6, admission hemoglobin was 8.1, it increased to 11.3 after 2 units, down trending Platelets normal, uptrending ABG this evening shows pH of 7.49, pCO2 34 Normal electrolytes, stable renal function. Vacillating elevated LFTs Down trending BNP Mild stable elevation of procalcitonin Review of Systems: See subjective Cardiac: No new chest pain/pressure/palpitations. Respiratory: Ongoing dyspnea, productive cough GI: No abdominal bloating Edema, chronic 1 to 2+ Objective: Looks chronically ill. Ecchymoses across the chest from her central line placement. Vitals: see above Lungs: Clear. Cardiac: Holosystolic ejection murmur radiation to the axilla Disposition/Potential discharge - Looking to transfer to multi disciplinary, higher level of care Total time is 35 minutes with greater than 50% spent in counseling and coordination of care. Exam Const: Vital Signs, click to edit/add: Vital Signs - 24 hr 12/25/21 23:40 12/26/21 01:45 12/26/21 03:50 Temperature 97.1 F L 97.6 F Pulse Rate 76 Pulse Rate [Right Brachial] 91 96 Respiratory Rate 20 20 Blood Pressure [Ri ght Radial Artery] 129/58 L 127/61 Pulse Oximetry 90 96 12/26/21 08:00 12/26/21 08:23 12/26/21 12:00 Temperature 98.2 F 98.2 F 98.1 F Pulse Rate 71 Pulse Rate [Right Brachial] 85 Respiratory Rate 20 18 Blood Pressure [Ri t Radial Artery] 123/55 L 133/60 Pulse Oximetry 94 94 12/26/21 14:00 Temperature 98.6 F Pulse Rate Pulse Rate [Right Brachial] 92 Respiratory Rate 20 Blood Pressure [[facility] Radial Artery] 120/55 L Pulse Oximetry Labs Labs: Laboratory Results - last 24 hr 12/26/21 12/26/21 12/26/21 06:25 06:25 06:25 WBC 1.59 L* RBC 3.23 L Hgb 9.6 L Hct 30.5 L MCV 94 MCH 30 MCHC 32 Plt Count 161 Diff Slide Review Acceptable Review ABG pH ABG pCO2 ABG pO2 ABG HCO3 ABG Total CO2 ABG O2 Saturation ABG Base Excess VBG pH 7.442 H VBG pCO2 43 VBG pO2 36.7 VBG HCO3 29 H Sodium 137 Potassium 3.6 Chloride 105 Carbon Dioxide 30 BUN 28 Creatinine 1.1 Estimated Creat Clear 35.49 Glucose 79 Calcium 8.1 L Magnesium 2.1 Total Bilirubin 1.2 AST 93 H ALT 70 H Alkaline Phosphatase 154 H C-Reactive Protein 14.6 H Total Protein 5.0 L Albumin 2.7 L 12/26/21 16:00 WBC RBC Hgb Hct MCV MCH MCHC Plt Count Diff Slide Review ABG pH 7.49 H ABG pCO2 34 L ABG pO2 63.7 L ABG HCO3 26 ABG Total CO2 24 ABG O2 Saturation 94 ABG Base Excess 2.8 VBG pH VBG pCO2 VBG pO2 VBG HCO3 Sodium Potassium Chloride Carbon Dioxide BUN Creatinine Estimated Creat Clear Glucose Calcium Magnesium Total Bilirubin AST ALT Alkaline Phosphatase C-Reactive Protein Total Protein Albumin
--- NOTE | 2021-12-26 20:55 | PC.NURSE ---
shift note: vss stable. pt on RA with sats >92%. LS course anterior [place] with wet sounding congested cough. pt producing thick yellow phlegm. Posterior LS with fine crkls. pt has bandaid intact covering bruised site from recent thoracentesis. Pt a&ox3. Pt has multiple bruises to u/e. central line patent with flushes. Bruising at central line site. Pt has non pitting edema to bilat l/e. Pt states ankles and lower calf tender to touch. HR 90-100 NSR.
[2021-12-26] MEDS: FERROUS SULFATE 325 MG TABLET PO (20:57)
[2021-12-26] MEDS: 0.9 % SODIUM CHLORIDE 250 ml IV (23:44)
[2021-12-27] VITALS (15 sets, daily range): BP systolic 105–129; BP diastolic 42–82; PULSE 78–99; RESP 18–20; TEMP 35.9–37.1; O2SAT 84–94
[2021-12-27] MEDS: HEPARIN 500 UNIT/5 ML SYRINGE 250 UNIT IVF ×6 (00:48→18:29)
[2021-12-27] MEDS: SODIUM CHLORIDE 0.9 % (FLUSH) 10 ML SYRINGE IVF ×5 (00:50→17:24)
[2021-12-27] MEDS: HYDROCODONE-ACETAMIN 5-325 MG 1 TAB PO ×3 (03:26→22:00)
[2021-12-27] MEDS: PIPERACILLIN/TAZOBACTAM 3.375 GM in 0.9 % SODIUM CHLORIDE Mini-bag 100 ML IVPB (06:39)
--- NOTE | 2021-12-27 07:00 | CRLHL7_ITS ---
For Patients: As a result of the Cures Act, medical imaging exams and procedure reports are released immediately into your electronic medical record. You may view this report before your referring provider. If you have questions, please contact your health care provider. INDICATION: pleural effusionscompare to CXR., 12.25.2021 HISTORY: Pleural effusions. COMPARISON: 12/25/2021. 12/22/2021. TECHNIQUE: Chest, 2 views. FINDINGS: Bilateral pleural effusions, right larger than left, stable from 12/22/2021. The effusion on the right has increased in size when compared with 12/25/2021. speed operator leads overlie the patient. There is no pneumothorax identified. There is a left IJ central venous catheter with its tip in the SVC. Bowel gas pattern is normal in the upper abdomen. The osseous structures are intact. IMPRESSION: Bilateral pleural effusions, right larger than left, stable when compared with 12/22/2021. The pleural effusion on the right has increased in size when compared with 12/25/2021, 1044 hours. Dictated by Swapnil Nix MD @ 12/27/2021 8:20:13 AM Dictated by: Swapnil Nix MD @ 12/27/2021 08:20:21 (Electronically Signed)
[2021-12-27 07:16] LABS: HCO3 VBG 28 mmol/L (21-28); Ionized Calcium* 1.15 mmol/L (1.11-1.30); Lactate* 1.4 mmol/L (0.5-1.9); PCO2 VBG 41 mmHG (40-50); PO2 VBG 37.3 mmHG (25-47)
[2021-12-27 07:22] LABS: Basophils Percent Auto 1.8 % (0.0-3.0); Hematocrit 34.4 % (33.0-51.0); Hemoglobin* 10.8 gm/dL (12.0-16.0); Immature Granulocytes Abs Auto 0.01 K/uL (0.00-0.30); Lymphocytes Percent Auto 38.9 % (20-44); Mean Corpuscular HGB Conc 31 gm/dL (32-36); Mean Corpuscular Hemoglobin 30 pg (26-34); Mean Corpuscular Volume 94 fL (80-100); Monocytes Percent Auto 9.7 % (0.0-11.0); Neutrophils Percent Auto 40.7 % (42.0-72.0); Platelet Count* 151 K/uL (140-440); RDW Coefficient of Variation % 19.1 % (11.5-15.5); Red Blood Count 3.65 m/uL (4.00-5.20)
[2021-12-27 07:45] LABS: Albumin* 2.9 g/dL (3.3-5.0); Chloride* 105 mmol/L (96-114)
[2021-12-27 07:46] LABS: Potassium* 3.5 mmol/L (3.6-5.1); Sodium* 137 mmol/L (135-149)
[2021-12-27 07:48] LABS: Bilirubin Total* 1.4 mg/dL (0.1-1.5); Creatinine* 1.1 mg/dL (0.5-1.5); Est. Creatinine Clearance* 35.49; Estimated Glomerular Filt Rate 52.73
[2021-12-27 07:49] LABS: Alanine Aminotransferase* 63 U/L (4-35); Alkaline Phosphatase* 165 U/L (40-150); Aspartate Amino Transferase* 62 U/L (12-35); Blood Urea Nitrogen* 24 mg/dL (7-30); Calcium* 8.5 mg/dL (8.4-10.6); Carbon Dioxide* 27 mmol/L (20-32); Glucose* 95 mg/dL (60-115); Magnesium* 2.2 mg/dL (1.5-2.6); Total Protein* 5.5 g/dL (6.0-8.3)
--- NOTE | 2021-12-27 07:50 | PC.NURSE ---
Pt pleasant, cooperative and fatigued. Up with 1 assist to bathroom or chair. Voidng without difficulty. Has 3 Lumen IJ. Ports were flushed blood withdrawn and then flushed again and heparinized. Brown port sluggish. Up in chair at 7 this morning. VSS
[2021-12-27 08:00] LABS: NT Pro B Type NatriureticPept* 2060 PG/mL (0-125)
[2021-12-27 08:03] LABS: Troponin I* 0.01 ng/mL (0.01-0.04)
[2021-12-27 08:04] LABS: C Reactive Protein* 16.6 mg/dL (0.5-1.0)
[2021-12-27 08:05] LABS: Procalcitonin* 0.43 ng/mL (<0.50)
[2021-12-27 08:08] LABS: INR 1.36 (0.91-1.10); Prothrombin Time 17.2 Seconds
[2021-12-27 08:44] LABS: Slide Review Reflex Yes; White Blood Count* 1.13 K/uL (4.50-11.00)
[2021-12-27 08:46] LABS: Slide Review Acceptable Review (Acceptable)
[2021-12-27] MEDS: ALBUTEROL SULFATE 2.5 MG/3 ML VIAL.NEB NEB ×2 (08:48→21:45)
[2021-12-27] MEDS: prednisoLONE acetate 1 % DROPS 1 DROP EYE-LEFT ×2 (08:48→21:45)
[2021-12-27] MEDS: POTASSIUM CHLORIDE 10 MEQ CAPSULE ER 20 MEQ PO (08:49)
[2021-12-27] MEDS: LACTOBACILLUS ACIDOPHILUS 1 TABLET 1 TAB PO (08:50)
[2021-12-27] MEDS: atenoloL 25 MG TABLET PO (08:50)
[2021-12-27] MEDS: FUROSEMIDE 40 MG TABLET PO (08:50)
[2021-12-27] MEDS: predniSONE 1 MG TABLET 4 MG PO (08:50)
[2021-12-27] MEDS: APIXABAN 5 MG TABLET 2.5 MG PO (08:52)
[2021-12-27] MEDS: LOSARTAN POTASSIUM 50 MG TABLET 12.5 MG PO (08:53)
--- NOTE | 2021-12-27 08:57 | PC.NURSE ---
Critical value reported by lab - WBC 1.13, Dr. Ray notified.
[2021-12-27] MEDS: FOLIC ACID 1 MG TABLET 3 MG PO (08:58)
[2021-12-27] MEDS: SODIUM CHLORIDE 3% 1 NEB IH ×2 (09:18→21:45)
[2021-12-27] MEDS: PANTOPRAZOLE SODIUM 40 MG INJ IVP (11:14)
--- NOTE | 2021-12-27 12:32 | PC.NURSE ---
shift note: reported off to Julianne VIDES @1000. During a.m assessment pt found to have audible wet cough and inspirations. Anterior LS course and bibasilar posterior LS with crkls. Pt maintains sats 93% on RA. Pt expressing sob with ambulation to bathroom. Pt up in recliner. Central line blue port heparinized after zosyn infusion. line patet without resistance. noted bruising to bilat u/e and central line site. tele with NSR. bilat ankles with edema nonpitting. Heart murmur noted. Pt appears to be in good spirits
--- NOTE | 2021-12-27 14:19 | P.IMPN_ITS ---
Progress Note: A&P Assessment and plan (1) Hypokalemia: Status: Acute Assessment and Plan: Change KCl to 40 mEq BID Give additional 40 mEq po once today Monitor Continue with low dose furosemide for CHF management (2) Bilateral pleural effusion: Problem details: Transudative per pleural fluid analysis, with neg gram stain and 48 hour culture thus far. Status: Acute Assessment and Plan: Continue with low dose furosemide diuresis for now In contact with [facility] regarding possible transfer still - still no bed availability today thus far (3) Chronic anticoagulation: Problem details: History of unprovoked PEs in the past, and still has paroxysmal atrial fibrillation Status: Acute Assessment and Plan: Continue with low-dose apixaban 2.5 mg p.o. b.i.d. (4) High risk medications (not anticoagulants) long-term use: Status: Acute Assessment and Plan: Continue hold these medicines. (5) Chronic use of steroids: Status: Acute Assessment and Plan: Will continue tapering effort toward her usual dose of prednisone 5 mg p.o. daily (6) Chronic kidney disease, stage 3a: Status: Acute Assessment and Plan: Continue to monitor. Continue to adjust medicine doses accordingly. (7) Diastolic congestive heart failure due to valvular disease: Problem details: Most recent echocardiogram obtained on 12/22/2021, normal LV chamber size, mildly increased LV wall thickness, normal global systolic function, EF estimated at 57%. Aortic valve peak velocity 3.8 m/sec, peak gradient 58 mmHg, mean gradient 34 mmHg, aortic valve area 1.13 cm2, dimensionless index 0.32, stroke volume index 47.9 mL per meter squared. Status: Acute Assessment and Plan: Continue with low-dose furosemide. (8) Mitral stenosis: Problem details: Most recent echocardiogram obtained on 12/22/2021, mitral stenosis has increased compared to last echocardiogram in August of 2021. Left atrial size not specified with previous echo demonstrating mild to moderate increase in left atrial size. Status: Acute Assessment and Plan: Would benefit from Cardiology consultation in near future (9) Severe aortic stenosis: Problem details: Most recent echocardiogram obtained on 12/22/2021, normal LV chamber size, mildly increased LV wall thickness, normal global systolic function, EF estimated at 57%. Aortic valve peak velocity 3.8 m/sec, peak gradient 58 mmHg, mean gradient 34 mmHg, aortic valve area 1.13 cm2, dimensionless index 0.32, stroke volume index 47.9 mL per meter squared. 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 Certainly her rheumatoid medications can contribute to this. Additionally the Zosyn that she is currently receiving for the bronchiectasis is likely driving this as well. The question is whether not there are other underlying causes such as myelodysplastic disorder and so forth. Status: Acute Assessment and Plan: Stop her piperacillin and tazobactam and continue to monitor her CBC. (17) Bronchiectasis with acute exacerbation: Problem details: Chronic problem with acute exacerbation Status: Acute Assessment and Plan: Stop the piperacillin and tazobactam. Continue with supportive pulmonary hygiene efforts. (18) Epistaxis: Problem details: No longer problematic since we decreased the dose of the apixaban from 5 mg p.o. b.i.d. to 2.5 mg p.o. b.i.d. Status: Acute (19) Protein calorie malnutrition: Status: Acute Assessment and Plan: Continue to encourage adequate oral intake Plan I discussed with the patient and her daughter Claribel, and both are in agreement to above stated plans and recommendations. Answered their questions are satisfaction. Continue to try to make arrangements for patient transfer to [facility] if possible. Time Spent With Patient Total time spent: 50 minutes Subjective Time Seen by Provider: 08:00 Date Seen: 12/27/21 Interval history: Hospital day number 7. Generally speaking she states she feels a little better today than she did yesterday. Continues to have dyspnea with minimal exertion. Able to walk from bed to chair at bedside. Able to walk from bedside to bathroom. After arriving at the sites she says it takes 1-2 minutes for her to catch her breath. Still not requiring oxygen supplementation. Still has a loose cough. Cough productive of purulent sputum at times. Sputum production less today than yesterday. Tells me she had a coughing paroxysm last night productive of a lot of sputum. Denies hemoptysis. No further epistaxis. Denies chest heaviness, pressure, tightness, or pain. Denies syncope or near- syncope. States if she is too winded sometime she gets dizzy. Still has a poor appetite. Forces herself to eat. Denies nausea or vomiting. Denies abdominal pain. Acknowledges loose stools the consistency of watery cream of wheat for the past 2-3 days. Denies blood loss of any sort. Denies melena or hematochezia. No fevers, rigors, or diaphoresis. Denies rash of any sort. Exam Narrative: Exam Narrative: In no acute distress. Alert, oriented to self, place, time, situation. Cooperative, friendly, articulate. Mood and affect are congruent. Cranial nerves 3-12 are grossly normal., save mild to moderate decreased hearing which is chronic and bilateral. No tremor, asterixis, or ataxia. No obvious focal motor neurologic deficits. Independent in transfer, station, and gait. Skin is thin, multiple ecchymosis in upper extremities and neck and chest. No jaundice or petechiae. No other rashes. No cyanosis. Decreased breath sounds in bases of both lungs. Fine rales bibasilarly. Scattered rhonchi. No wheezing. Kyphotic posture. Chest wall excursions full with respiratory efforts. No CVA tenderness. Heart tones with regular rhythm. Normal S1-S2. Loud systolic murmur across precordium that radiates into the left axilla. PMI is not laterally displaced. Abdomen with active bowel sounds, soft, nontender. Extremities with pedal edema bilaterally. No pretibial edema bilaterally today. Capillary refill less than 3 seconds in upper and lower extremities. Const: Vital Signs, click to edit/add: Vital Signs - 24 hr 12/26/21 15:00 12/26/21 20:00 12/26/21 23:00 Temperature 96.8 F L Pulse Rate 91 84 Pulse Rate [Right Brachial] 82 85 Respiratory Rate 20 20 Blood Pressure [Ri ght Radial Artery] 125/58 L Pulse Oximetry 94 94 94 12/27/21 00:00 12/27/21 03:26 12/27/21 04:00 Temperature 96.9 F L 97.9 F 97.9 F Pulse Rate Pulse Rate [Right Brachial] 85 Respiratory Rate 20 Blood Pressure [Ri ght Radial Artery] 129/59 L 128/50 L Pulse Oximetry 84 L 12/27/21 05:54 12/27/21 07:30 12/27/21 07:45 Temperature Pulse Rate 84 88 Pulse Rate [Right Brachial] Respiratory Rate 20 18 20 Blood Pressure [Ri t Radial Artery] Pulse Oximetry 94 93 94 12/27/21 08:32 12/27/21 11:13 12/27/21 12:00 Temperature 97.5 F L 96.7 F L 97.2 F L Pulse Rate Pulse Rate [Right Brachial] 82 80 Respiratory Rate 18 20 Blood Pressure [Ri ght Radial Artery] 123/56 L 124/82 Pulse Oximetry 93 94 12/27/21 12:07 Temperature 97.2 F L Pulse Rate Pulse Rate [Right Brachial] Respiratory Rate Blood Pressure [Ri ght Radial Artery] Pulse Oximetry Labs Labs: Laboratory Results - last 24 hr 12/26/21 12/27/21 12/27/21 16:00 06:51 06:51 WBC 1.13 L* RBC 3.65 L Hgb 10.8 L Hct 34.4 MCV 94 MCH 30 MCHC 31 L RDW Coeff of Navneet 19.1 H Plt Count 151 Neut % (Auto) 40.7 L Lymph % (Auto) 38.9 [place] % (Auto) 9.7 Eos % (Auto) 8.0 H Baso % (Auto) 1.8 Neut # (Auto) 0.50 L Lymph # (Auto) 0.40 L [place] # (Auto) 0.10 Eos # (Auto) 0.10 Baso # (Auto) 0.00 Abs Immat Gran (auto) 0.01 Diff Slide Review Acceptable Review INR 1.36 H ABG pH 7.49 H ABG pCO2 34 L ABG pO2 63.7 L ABG HCO3 26 ABG Total CO2 24 ABG O2 Saturation 94 ABG Base Excess 2.8 VBG pH VBG pCO2 VBG pO2 VBG HCO3 Sodium Potassium Chloride Carbon Dioxide BUN Creatinine Estimated Creat Clear Glucose Lactate Calcium Ionized Calcium Sam Magnesium Total Bilirubin AST ALT Alkaline Phosphatase Troponin I C-Reactive Protein NT-Pro-B Natriuret Pep Total Protein Albumin Procalcitonin 12/27/21 12/27/21 06:51 06:51 WBC RBC Hgb Hct MCV MCH MCHC RDW Coeff of Navneet Plt Count Neut % (Auto) Lymph % (Auto) [place] % (Auto) Eos % (Auto) Baso % (Auto) Neut # (Auto) Lymph # (Auto) [place] # (Auto) Eos # (Auto) Baso # (Auto) Abs Immat Gran (auto) Diff Slide Review INR ABG pH ABG pCO2 ABG pO2 ABG HCO3 ABG Total CO2 ABG O2 Saturation ABG Base Excess VBG pH 7.440 H VBG pCO2 41 VBG pO2 37.3 VBG HCO3 28 Sodium 137 Potassium 3.5 L Chloride 105 Carbon Dioxide 27 BUN 24 Creatinine 1.1 Estimated Creat Clear 35.49 Glucose 95 Lactate 1.4 Calcium 8.5 Ionized Calcium Sam 1.15 Magnesium 2.2 Total Bilirubin 1.4 AST 62 H ALT 63 H Alkaline Phosphatase 165 H Troponin I 0.01 C-Reactive Protein 16.6 H NT-Pro-B Natriuret Pep 2060 H Total Protein 5.5 L Albumin 2.9 L Procalcitonin 0.43
[2021-12-27] MEDS: POTASSIUM CHLORIDE 10 MEQ CAPSULE ER 40 MEQ PO ×2 (15:03→17:21)
[2021-12-27] MEDS: cefTRIAXone 1 GM in 0.9 % SODIUM CHLORIDE Mini-bag 100 ML IVPB (17:22)
--- NOTE | 2021-12-27 18:44 | PC.NURSE ---
Pt given [place] for pain 4-12/05 with relief. She is up in chair from [id number]. Ate 2 meals this shift, tolerated ambulating to BR with SBA and walker. NSR on tele. 90-94% on RA. Central line flushes well and heparin locked site blue and brown line easily flushes and drsg is intact. Crackles LS and course cough kinney sputum .
[2021-12-27] MEDS: FERROUS SULFATE 325 MG TABLET PO (21:45)
[2021-12-28 03:55] VITALS: BP 123/59; PULSE 92; RESP 18; TEMP 36.8; O2SAT 95
[2021-12-28] MEDS: HEPARIN 500 UNIT/5 ML SYRINGE 250 UNIT IVF ×2 (03:57→06:14)
[2021-12-28] MEDS: SODIUM CHLORIDE 0.9 % (FLUSH) 10 ML SYRINGE IVF ×2 (03:58→06:14)
--- NOTE | 2021-12-28 05:23 | PC.NURSE ---
Shift note: The pt has been pleasant and cooperative. She has been sleeping without any distress. Mild short of breath with exertion. Spo2 has been in the 90s in RA. She denied chest pain. Small Cream sputum noted when coughing. Pain has been well managed with pain medicine. Central line x3 lumen dressing has been C/D/I- Bruise noted under the dressing.
[2021-12-28] MEDS: HYDROCODONE-ACETAMIN 5-325 MG 1 TAB PO (06:36)
[2021-12-28 06:41] LABS: Basophils Percent Auto 1.2 % (0.0-3.0); Eosinophils Percent Auto 7.2 % (0.0-7.0); Hematocrit 24.8 % (33.0-51.0); Immature Granulocytes Abs Auto 0.07 K/uL (0.00-0.30); Lymphocytes Percent Auto 42.8 % (20-44); Mean Corpuscular HGB Conc 31 gm/dL (32-36); Mean Corpuscular Hemoglobin 29 pg (26-34); Mean Corpuscular Volume 96 fL (80-100); Neutrophils Percent Auto 32.6 % (42.0-72.0); Platelet Count* 135 K/uL (140-440); RDW Coefficient of Variation % 19.3 % (11.5-15.5); Red Blood Count 2.59 m/uL (4.00-5.20)
[2021-12-28 07:00] VITALS: PULSE 90; PULSE 92; RESP 20; O2SAT 92
[2021-12-28 07:01] LABS: Chloride* 106 mmol/L (96-114); Sodium* 135 mmol/L (135-149)
[2021-12-28 07:04] LABS: Blood Urea Nitrogen* 24 mg/dL (7-30); Carbon Dioxide* 28 mmol/L (20-32); Creatinine* 1.1 mg/dL (0.5-1.5); Est. Creatinine Clearance* 35.49; Estimated Glomerular Filt Rate 52.73
[2021-12-28 07:05] LABS: Calcium* 8.6 mg/dL (8.4-10.6); Glucose* 90 mg/dL (60-115); Magnesium* 2.3 mg/dL (1.5-2.6)
[2021-12-28 07:43] LABS: Hemoglobin* 7.6 gm/dL (12.0-16.0); White Blood Count* 1.66 K/uL (4.50-11.00)
[2021-12-28 07:44] LABS: Slide Review Reflex Yes
[2021-12-28 07:53] VITALS: TEMP 36.8
[2021-12-28 07:58] LABS: Slide Review Acceptable Review (Acceptable)
[2021-12-28 08:00] VITALS: BP 104/44; PULSE 90; RESP 20; TEMP 36.6; O2SAT 95
[2021-12-28] MEDS: FOLIC ACID 1 MG TABLET 3 MG PO (08:52)
[2021-12-28] MEDS: ALBUTEROL SULFATE 2.5 MG/3 ML VIAL.NEB NEB (08:53)
[2021-12-28] MEDS: predniSONE 1 MG TABLET 4 MG PO (08:53)
[2021-12-28] MEDS: LACTOBACILLUS ACIDOPHILUS 1 TABLET 1 TAB PO (08:53)
[2021-12-28] MEDS: atenoloL 25 MG TABLET PO (08:53)
[2021-12-28] MEDS: SODIUM CHLORIDE 3% 1 NEB IH (09:24)
--- NOTE | 2021-12-28 09:32 | PC.NURSE ---
Pt will be transferring to [facility], cancelled [facility] 1unit.
[2021-12-28] MEDS: LOSARTAN POTASSIUM 50 MG TABLET 12.5 MG PO (09:39)
[2021-12-28] MEDS: prednisoLONE acetate 1 % DROPS 1 DROP EYE-LEFT (09:40)
[2021-12-28] MEDS: FUROSEMIDE 20 MG TABLET PO (09:40)
[2021-12-28 10:28] VITALS: BP 115/57; PULSE 101; RESP 22; TEMP 36.8; O2SAT 93
--- NOTE | 2021-12-28 10:33 | PC.NURSE ---
Pt. Given AM meds, see MAR. She is accepted at [facility] at 0940 and transferred by EMS at 1030. Report given to Patsy VIDES from EMS, to Hunter Beltran. Claribel dtr is updated by dtr. Pt belongings signed by dtr and sent home meds sent with EMS.
--- NOTE | 2021-12-28 11:42 | PC.NURSE ---
Report given to Erma at [facility] 3d.
--- NOTE | 2021-12-28 16:30 | PM.DS1 ---
DS: Providers Provider Date of admission: 12/21/21 13:40 Primary care physician: Kyle Healy MD Admitting Clinician: Glenna Rodgers MD Attending Physician on discharge: Glenna Rodgers MD DS: Diagnosis Discharge Diagnosis (1) Diastolic congestive heart failure due to valvular disease: Status: Acute Problem details: Most recent echocardiogram obtained on 12/22/2021, normal LV chamber size, mildly increased LV wall thickness, normal global systolic function, EF estimated at 57%. Aortic valve peak velocity 3.8 m/sec, peak gradient 58 mmHg, mean gradient 34 mmHg, aortic valve area 1.13 cm2, dimensionless index 0.32, stroke volume index 47.9 mL per meter squared. (2) Diastolic heart failure with preserved ejection fraction: Status: Acute (3) Severe aortic stenosis: Status: Acute Problem details: Most recent echocardiogram obtained on 12/22/2021, normal LV chamber size, mildly increased LV wall thickness, normal global systolic function, EF estimated at 57%. Aortic valve peak velocity 3.8 m/sec, peak gradient 58 mmHg, mean gradient 34 mmHg, aortic valve area 1.13 cm2, dimensionless index 0.32, stroke volume index 47.9 mL per meter squared. (4) Mitral stenosis: Status: Acute Problem details: Most recent echocardiogram obtained on 12/22/2021, mitral stenosis has increased compared to last echocardiogram in August of 2021. Left atrial size not specified with previous echo demonstrating mild to moderate increase in left atrial size. (5) Mitral annular calcification: Status: Acute (6) Valvular cardiomyopathy: Status: Acute (7) Bronchiectasis with acute exacerbation: Status: Acute Problem details: Chronic problem with acute exacerbation (8) Pancytopenia: Status: Acute Problem details: This is most likely multifactorial. Certainly her rheumatoid medications can contribute to this. Additionally the Zosyn that she is currently receiving for the bronchiectasis is likely driving this as well. The question is whether not there are other underlying causes such as myelodysplastic disorder and so forth. (9) Protein calorie malnutrition: Status: Acute (10) Paroxysmal atrial fibrillation: Status: Acute (11) Rheumatoid arthritis: Status: Acute (12) CMV retinitis: Status: Acute Problem details: Left eye blindness (13) Gastroesophageal reflux disease: Status: Acute (14) Chronic kidney disease, stage 3a: Status: Acute (15) Chronic use of steroids: Status: Acute (16) High risk medications (not anticoagulants) long-term use: Status: Acute (17) Chronic anticoagulation: Status: Acute Problem details: History of unprovoked PEs in the past, and still has paroxysmal atrial fibrillation (18) Bilateral pleural effusion: Status: Acute Problem details: Transudative per pleural fluid analysis, with neg gram stain and 48 hour culture thus far. (19) Hypokalemia: Status: Acute DS: Summary Hospital Course Hospital Course: Patient has multiple complex conditions prompted us to attempt to transfer her to a tertiary care medical facility early on and her hospital stay here at this time. Unfortunately there is a lack of bed availability in tertiary care medical facilities across the [facility] at this time. Ultimately we were able to make arrangements for her to be transferred to [facility]. Dr. Marques Coker accepted the patient in transfer. On presentation to the hospital at this time we restarted the piperacillin and tazobactam. Her cough which is productive of purulent sputum has improved slightly throughout her hospital stay with receipt of this treatment. In her recent hospitalization she had bacteremia which grew out pansensitive streptococcal pneumoniae. She also had sputum culture that grew out pansensitive Streptococcus pneumoniae. During that particular hospitalization she received 3 days worth of piperacillin with tazobactam and then was switched to oral azithromycin. Patient developed a pancytopenia during the course of hospitalization. We had already stopped her various high risk medications related to her rheumatoid arthritis while she was here in the hospital. Over time we made the decision to stop the piperacillin and tazobactam with a thought that this was causing bone marrow suppression. At that time we switched to ceftriaxone IV. We also worked up her bilateral pleural effusions during the course her current hospital stay. The right side is loculated, left side is not. Our general surgeon was able to obtain a 10 mL sample on the right side. Findings consistent with a transudate. We worked on gradually trying to diurese her with low-dose furosemide. We also added low-dose losartan. We opted not to use an DANIELLE inhibitor given the high risk of possible bone marrow suppression. We were able to diurese 3 kg during her hospital stay at this time. We made multiple attempts to transfer patient to various tertiary care facilities across the [facility] for additional tertiary care that we are not able to provide our critical access hospital hospital. Ultimately she was accepted at the [place], [place]. She will certainly benefit from specialty consultation from Pulmonary, Cardiology, Interventional Radiology, thoracic surgery, Rheumatology, Hematology, Infectious Diseases. Status at Discharge Cognitive/behavioral status at discharge: Pleasant, cooperative, articulate. Alert, oriented to self, place, time, situation. Mood and affect are congruent. Functional status at discharge: uses cane/walker Overall status at discharge: patient is not back to baseline Time Spent with Patient Time attestation: Total time spent providing and/or coordinating discharge services: Time spent: Greater than 30 minutes Exam Narrative: Exam Narrative: Appears relatively comfortable at rest. Becomes dyspneic with minimal exertion. Cough still productive of purulent sputum. Lungs for the most part are clear. Still has rhonchi and rales. No wheezing. Heart tones with regular rhythm with a loud systolic murmur across the precordium radiating to the left axilla. Abdomen with active bowel sounds soft nontender. Skin is thin and dry. Ecchymoses son neck and chest at site of central line placement. Const: Vital Signs, click to edit/add: Vital Signs - 24 hr 12/27/21 19:35 12/27/21 23:15 12/28/21 03:55 Temperature 98.8 F 97.3 F L 98.2 F Pulse Rate 86 Pulse Rate [Right Brachial] 91 99 92 Respiratory Rate 18 18 18 Blood Pressure [Ri ght Radial Artery] 127/62 105/42 L 123/59 L Pulse Oximetry 93 92 95 12/28/21 07:00 12/28/21 07:53 12/28/21 08:00 Temperature 98.2 F 97.8 F Pulse Rate 92 Pulse Rate [Right Brachial] 90 90 Respiratory Rate 20 20 Blood Pressure [Ri ght Radial Artery] 104/44 L Pulse Oximetry 92 95 12/28/21 10:28 Temperature 98.2 F Pulse Rate Pulse Rate [Right Brachial] 101 H Respiratory Rate 22 Blood Pressure [Ri ght Radial Artery] 115/57 L Pulse Oximetry 93 DS: Data Data Completed and Pending Labs on day of discharge: Labs from last 24 hours 12/28/21 12/28/21 12/28/21 06:20 06:20 06:10 WBC 1.66 L* RBC 2.59 L Hgb 7.6 L* Hct 24.8 L MCV 96 MCH 29 MCHC 31 L RDW Coeff of Navneet 19.3 H Plt Count 135 L Neut % (Auto) 32.6 L Lymph % (Auto) 42.8 [place] % (Auto) 12.0 H Eos % (Auto) 7.2 H Baso % (Auto) 1.2 Neut # (Auto) 0.50 L Lymph # (Auto) 0.70 L [place] # (Auto) 0.20 Eos # (Auto) 0.10 Baso # (Auto) 0.00 Abs Immat Gran (auto) 0.07 Diff Slide Review Acceptable Review Sodium 135 Potassium 5.0 Chloride 106 Carbon Dioxide 28 BUN 24 Creatinine 1.1 Estimated Creat Clear 35.49 Glucose 90 Calcium 8.6 Magnesium 2.3 Crossmatch (AHG) See Detail Preliminary micro results at discharge 12/25/21 10:15 Body Fluid Culture - Preliminary Pleural Fluid NO GROWTH AFTER 48 HOURS Discharge Plan Discharge Disposition: [facility] Discharge Location: [facility] Date of Admission: 12/21/21 13:40 Attending Provider on Discharge: Julio Ray Primary Care Provider: Kyle Healy Condition: Unchanged Anticipated Discharge Date/Time: 12/28/21 10:30 Discharge Medications: Continued albuterol sulfate 2.5 mg /3 mL (0.083 %) solution for nebulization 2.5 mg inhalation BID 0RF atenolol 25 mg tablet 25 mg PO DAILY 0RF folic acid 1 mg tablet 3 mg PO DAILY 0RF furosemide 20 mg tablet 20 mg PO DAILY 0RF Label Comments: PRN hydrocodone-acetaminophen 5-325 mg tablet 1 tab PO Q6H PRN0RF Lactobacillus acidophilus 0.5 mg (100 million cell) tablet 1,000 mmu cells PO DAILY 0RF prednisolone acetate 1 % drops,suspension 1 drp ophthalmic (eye) BID 0RF Label Comments: LEFT EYE prednisone 1 mg tablet 4 mg PO DAILY 0RF rosuvastatin [Crestor] 5 mg tablet 5 mg PO HS 0RF Saline Nasal 0.65 % aerosol,spray 1 spray intranasal QID PRN0RF sodium chloride 7 % solution for nebulization 1 inh inhalation BID 0RF valganciclovir [Valcyte] 450 mg tablet 900 mg PO DAILY 0RF Discontinued Eliquis 5 mg tablet 5 mg PO BID 0RF ascorbic acid (vitamin C) 500 mg tablet 500 mg PO HS 0RF cholecalciferol (vitamin D3) 50 mcg (2,000 unit) tablet 2,000 unit PO DAILY 0RF Enbrel SureClick 50 mg/mL (1 mL) pen injector 50 mg subcut QWEEK 0RF Label Comments: TAKES ON MONDAYS ferrous gluconate 324 mg (37.5 mg iron) tablet 324 mg PO HS 0RF methotrexate sodium 2.5 mg tablet 15 mg PO .Q7DAYS 0RF Rx Instructions: 15 PO daily; multivitamin Tablet 1 tab PO DAILY 0RF Discharge Orders: Discharge Order (Routine); Ordered 12/28/21 Ordered By: Julio Ray Follow Up Appointments: Kyle Healy MD [Primary Care Provider] - Forms: [facility] Info Instructions Hospital Course: Patient has multiple complex conditions prompted us to attempt to transfer her to a tertiary care medical facility early on and her hospital stay here at this time. Unfortunately there is a lack of bed availability in tertiary care medical facilities across the [facility] at this time. Ultimately we were able to make arrangements for her to be transferred to [facility]. Dr. Marques Coker accepted the patient in transfer. On presentation to the hospital at this time we restarted the piperacillin and tazobactam. Her cough which is productive of purulent sputum has improved slightly throughout her hospital stay with receipt of this treatment. In her recent hospitalization she had bacteremia which grew out pansensitive streptococcal pneumoniae. She also had sputum culture that grew out pansensitive Streptococcus pneumoniae. During that particular hospitalization she received 3 days worth of piperacillin with tazobactam and then was switched to oral azithromycin. Patient developed a pancytopenia during the course of hospitalization. We had already stopped her various high risk medications related to her rheumatoid arthritis while she was here in the hospital. Over time we made the decision to stop the piperacillin and tazobactam with a thought that this was causing bone marrow suppression. At that time we switched to ceftriaxone IV. We also worked up her bilateral pleural effusions during the course her current hospital stay. The right side is loculated, left side is not. Our general surgeon was able to obtain a 10 mL sample on the right side. Findings consistent with a transudate. We worked on gradually trying to diurese her with low-dose furosemide. We also added low-dose losartan. We opted not to use an DANIELLE inhibitor given the high risk of possible bone marrow suppression. We were able to diurese 3 kg during her hospital stay at this time. We made multiple attempts to transfer patient to various tertiary care facilities across the state for additional tertiary care that we are not able to provide our critical access hospital hospital. Ultimately she was accepted at the [facility], [place], [place]. She will certainly benefit from specialty consultation from Pulmonary, Cardiology, Interventional Radiology, thoracic surgery, Rheumatology, Hematology, Infectious Diseases. Discharge Comment: Transfered to [facility]
== END 2021-12-28 11:30 | disposition short-term general hospital (02) | DRG 190 ==
PROVIDERS: Family Medicine; Hospitalist; Internal Medicine; Admitting Provider Family Medicine; Emergency Provider Family Medicine; PCP Family Medicine; Visit Provider Family Medicine
DX: J47.1 Bronchiectasis with (acute) exacerbation (principal); E43 Unspecified severe protein-calorie malnutrition; I50.31 Acute diastolic (congestive) heart failure; I13.0 Hypertensive heart and chronic kidney disease with heart failure and stage 1 through stage 4 chronic kidney disease, or unspecified chronic kidney disease; I43 Cardiomyopathy in diseases classified elsewhere; J90 Pleural effusion, not elsewhere classified; D68.32 Hemorrhagic disorder due to extrinsic circulating anticoagulants; D61.818 Other pancytopenia; C94.6 Myelodysplastic disease, not elsewhere classified; H30.892 Other chorioretinal inflammations, left eye; N18.31 Chronic kidney disease, stage 3a; D64.9 Anemia, unspecified; R04.0 Epistaxis; T45.515A Adverse effect of anticoagulants, initial encounter; E87.6 Hypokalemia; E86.0 Dehydration; I48.0 Paroxysmal atrial fibrillation; Z79.01 Long term (current) use of anticoagulants; Z86.711 Personal history of pulmonary embolism; K76.0 Fatty (change of) liver, not elsewhere classified; M05.9 Rheumatoid arthritis with rheumatoid factor, unspecified; M85.80 Other specified disorders of bone density and structure, unspecified site; Z79.52 Long term (current) use of systemic steroids; I35.0 Nonrheumatic aortic (valve) stenosis; I05.0 Rheumatic mitral stenosis; K21.9 Gastro-esophageal reflux disease without esophagitis; H54.40 Blindness, one eye, unspecified eye
CPT/HCPCS: 32555; 36415; 36430; 36600; 71045; 71046; 71260; 74176; 76705; 76882; 76942; 80048; 80053; 80076; 81001; 82042; 82150; 82330; 82803; 82945; 83605; 83735; 83880; 83986; 84145; 84157; 84311; 84484; 85018; 85025; 85027; 85610; 86140; 86850; 86900; 86901; 86922; 87040; 87070; 87205; 87493; 87635; 88112; 93005; 93306; 94640; 97110; 97116; 97161; 97166; 97535; 99283; 99284; A4221; A9270; C1751; C9113; J0696; J1642; J1650; J1940; J2543; J3480; J7050; J7120; J7512; J8610; P9016; Q9967

== ENCOUNTER 2021-12-28 10:10 | Outpatient (CLI) | payer MEDICARE, OTHER, SELFPAY | END 2021-12-28 10:11 | disposition home or self-care (01) | LOC: AMB 01-05 12:29 | PROVIDERS: PCP Family Medicine; Visit Provider Family Medicine | DX: J90 Pleural effusion, not elsewhere classified (principal); R06.09 Other forms of dyspnea; R05.9 Cough, unspecified | CPT/HCPCS: A0425; A0427 ==

== ENCOUNTER 2022-01-16 10:26 | Outpatient (CLI) | payer MEDICARE, OTHER, SELFPAY ==
[2022-01-16 17:34] LABS: C Reactive Protein* 3.8 mg/dL (0.5-1.0)
== END 2022-01-16 10:27 | disposition home or self-care (01) ==
LOC: LONREF 10:28
PROVIDERS: PCP Family Medicine; Visit Provider Family Medicine
DX: R05.9 Cough, unspecified (principal); J94.2 Hemothorax; J47.9 Bronchiectasis, uncomplicated; M06.9 Rheumatoid arthritis, unspecified
CPT/HCPCS: 86140

== ENCOUNTER 2022-05-04 13:43 | Outpatient (CLI) | payer MEDICARE, OTHER, SELFPAY ==
[2022-05-04 18:00] LABS: Albumin* 4.2 g/dL (3.3-5.0); Chloride* 105 mmol/L (96-114)
[2022-05-04 18:01] LABS: Sodium* 143 mmol/L (135-149)
[2022-05-04 18:03] LABS: Alkaline Phosphatase* 80 U/L (40-150); Aspartate Amino Transferase* 39 U/L (12-35); Bilirubin Total* 0.7 mg/dL (0.1-1.5); Blood Urea Nitrogen* 22 mg/dL (7-30); Carbon Dioxide* 26 mmol/L (20-32); Creatinine* 1.2 mg/dL (0.5-1.5); Estimated Glomerular Filt Rate 48 ml/min; Total Protein* 6.5 g/dL (6.0-8.3)
[2022-05-04 18:04] LABS: Alanine Aminotransferase* 31 U/L (4-35); Glucose* 120 mg/dL (60-115)
== END 2022-05-04 13:44 | disposition home or self-care (01) ==
LOC: LONREF 13:43
PROVIDERS: PCP Family Medicine; Visit Provider Family Medicine
DX: B25.9 Cytomegaloviral disease, unspecified (principal); H30.90 Unspecified chorioretinal inflammation, unspecified eye
CPT/HCPCS: 80053

== ENCOUNTER 2022-08-03 17:34 | Outpatient (REF) | payer MEDICARE, OTHER, SELFPAY ==
[2022-08-03 17:55] LABS: Basophils Absolute Auto 0.02 K/uL (0.00-0.30); Basophils Percent Auto 0.3 % (0.0-3.0); Hematocrit 33.8 % (33.0-51.0); Hemoglobin* 10.9 gm/dL (12.0-16.0); Immature Granulocytes Abs Auto 0.03 K/uL (0.00-0.30); Immature Granulocytes Pct Auto 0.4 %; Lymphocytes Percent Auto 6.6 % (20-44); Mean Corpuscular HGB Conc 32 gm/dL (32-36); Mean Corpuscular Hemoglobin 33 pg (26-34); Mean Corpuscular Volume 102 fL (80-100); Monocytes Percent Auto 8.7 % (0.0-11.0); Platelet Count* 162 K/uL (140-440); RDW Coefficient of Variation % 14.7 % (11.5-15.5); Red Blood Count 3.33 m/uL (4.00-5.20); White Blood Count* 7.39 K/uL (4.50-11.00)
[2022-08-03 18:30] LABS: Slide Review Reflex No
[2022-08-03 19:19] LABS: Creatinine* 0.9 mg/dL (0.5-1.5); Estimated Glomerular Filt Rate 67 ml/min
[2022-08-03 19:20] LABS: Alanine Aminotransferase* 91 U/L (4-35); Aspartate Amino Transferase* 95 U/L (12-35)
== END 2022-08-03 17:35 | disposition home or self-care (01) ==
LOC: LAB 17:34
PROVIDERS: PCP Family Medicine; Visit Provider Internal Medicine
DX: Z79.899 Other long term (current) drug therapy (principal); I10 Essential (primary) hypertension; E78.5 Hyperlipidemia, unspecified
CPT/HCPCS: 36415; 82565; 84450; 84460; 85025

== ENCOUNTER 2022-08-04 14:54 | Outpatient (REF) | payer MEDICARE, OTHER, SELFPAY | END 2022-08-04 14:55 | disposition home or self-care (01) | LOC: LAB 14:54 | PROVIDERS: PCP Family Medicine | DX: J47.9 Bronchiectasis, uncomplicated (principal) | CPT/HCPCS: 87070; 87077; 87185 ==

== ENCOUNTER 2022-09-15 15:19 | Emergency (ER) | payer MEDICARE, OTHER, SELFPAY ==
[2022-09-15] VITALS (17 sets, daily range): BP systolic 124–135; BP diastolic 55–79; PULSE 86–119; RESP 18–20; TEMP 36.4; O2SAT 97–100; BMI 28.3
--- NOTE | 2022-09-15 16:08 | ED_ITS ---
HPI - General Adult General Chief complaint: Shortness of Breath/Dyspnea Stated complaint: Shortness of breath Time Seen by Provider: 09/15/22 16:08 History of Present Illness HPI narrative: Tanner is a 77-year-old female past medical history includes congestive heart failure, atrial fibrillation on chronic anticoagulation with Eliquis, chronic kidney disease, aortic stenosis, hypertension, bronchiectasis, anxiety presents emergency department with daughter via private car with shortness of breath. Patient states she saw her pulmonary doctor 2 weeks ago, she was tried on azithromycin and transition to Augmentin for some abnormal sputum cultures, she did finish the antibiotics 1 week ago and has been doing well, she has had increased lower extremity edema over the last 10 days, worsening orthopnea and shortness of breath especially on exertion. She denies any chest pain or back pain. She denies any fevers or chills. She denies any wait gain. She has been eating and drinking normally, she has had more weakness associated with this shortness of breath. No sick contacts. Related Data Home Medications Medication Instructions Recorded Confirmed Lactobacillus acidophilus 0.5 mg 1,000 mmu cells PO DAILY 12/22/21 09/28/22 (100 million cell) tablet albuterol sulfate 2.5 mg/3 mL 2.5 mg inhalation BID 12/22/21 09/28/22 (0.083 %) solution for nebulization folic acid 1 mg tablet 3 mg PO DAILY 12/22/21 09/28/22 furosemide 20 mg tablet 20 mg PO DAILY 12/22/21 09/28/22 sodium chloride 0.65 % nasal spray 1 spray intranasal QID PRN 12/22/21 08/03/22 aerosol (Saline Nasal) sodium chloride 7 % for 1 inh inhalation BID 12/22/21 08/03/22 nebulization ascorbic acid (vitamin C) 500 mg 1 g PO QDAY 01/16/22 09/28/22 tablet cholecalciferol (vitamin D3) 50 50 mcg PO QDAY 01/16/22 09/28/22 mcg (2,000 unit) capsule multivitamin 1 tab PO QAM 01/16/22 09/28/22 methotrexate sodium 2.5 mg tablet 17.5 mg PO .Every 7 Days 03/10/22 09/28/22 prednisone 10 mg tablet 10 mg PO QDAY 03/10/22 09/28/22 Previous Rx's Medication Instructions Recorded ferrous gluconate 324 mg (37.5 mg 324 mg PO QDAY #100 tabs 02/26/22 iron) tablet apixaban 5 mg tablet (Eliquis) 2.5 mg PO BID #90 tabs 03/31/22 rosuvastatin 5 mg tablet See Rx Instructions .Route 07/09/22 .COMPLEX #90 tabs sulfamethoxazole 800 1 tab PO BID #20 tabs 08/03/22 mg-trimethoprim 160 mg tablet (Bactrim DS) valganciclovir 450 mg tablet See Rx Instructions .Route 08/22/22 .COMPLEX #90 tabs hydrocodone 5 mg-acetaminophen 325 1 tab PO Q6H PRN pain #40 tabs 10/02/22 mg tablet Allergies Allergy/AdvReac Type Severity Reaction Status Date / Time NSAIDS (Non-Steroidal Allergy Severe GI bleed Verified 09/28/22 17:34 Anti-Inflamma terbinafine Allergy Intermediate Headache Verified 09/28/22 17:34 levofloxacin AdvReac Severe tendon Verified 09/28/22 17:34 rupture Review of Systems Status of ROS: Reports: 10 or more systems reviewed and unremarkable except as noted in History and below [facility] Medical History (Updated 09/30/22 @ 00:01 by ) Abnormal LFTs (liver function tests) ?R79.89 - Other specified abnormal findings of blood chemistry (ICD-10) History of vitamin D deficiency ?Z86.39 - Personal history of other endocrine, nutritional and metabolic disease (ICD-10) Mitral annular calcification ?I05.9 - Rheumatic mitral valve disease, unspecified (ICD-10) POLST (Physician Orders for Life-Sustaining Treatment) ?Z78.9 - Other specified health status (ICD-10) 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 of unspecified site (ICD-10) Surgical History History of left nephrectomy ?Z90.5 - Acquired absence of kidney (ICD-10) History of lithotripsy ?Z98.890 - Other specified postprocedural states (ICD-10) History of lumbar fusion (04/2010) ?Z98.1 - Arthrodesis status (ICD-10) S/P cataract extraction ?Z98.49 - Cataract extraction status, unspecified eye (ICD-10) S/P cholecystectomy ?Z90.49 - Acquired absence of other specified parts of digestive tract (ICD- 10) Family History Mother Breast cancer, Onset Age: 70 Sister Breast cancer, Onset Age: 35 Social History Smoking Status: Never smoker How often do you have a drink containing alcohol: monthly or less AUDIT-C Alcohol total score: 1 Non-prescribed substance use: denies use Little interest or pleasure in doing things: not at all Feeling down, depressed, or hopeless: several days service: No Exam Narrative: Exam Narrative: General: No obvious distress sitting comfortably nontoxic in appearance HEENT: Pupils equal round reactive to light, extraocular muscles intact Neck: Supple, no JVD Lungs: Bibasilar crackles and diminished breath sounds Heart: Sinus tachycardia Abdomen: Obese, bowel sounds present, non tender. Extremities: +3 pitting edema lower extremities bilaterally, CMS intact Neuro awake and oriented x3 Psych: normal affect and mood. Const: Vital Signs, click to edit/add: Vital Signs - 24 hr 09/15/22 15:28 09/15/22 16:18 09/15/22 16:19 Temperature 97.5 F L Pulse Rate 98 100 Pulse Rate [Pulse Oximeter] 119 H Respiratory Rate 18 Blood Pressure 126/79 Blood Pressure [Ri ght Upper Arm] 135/69 Pulse Oximetry 99 99 97 Oxygen Delivery Me thod Room Air 09/15/22 16:30 09/15/22 16:31 09/15/22 17:00 Temperature Pulse Rate 105 H 100 94 Pulse Rate [Pulse Oximeter] Respiratory Rate Blood Pressure 125/59 L Blood Pressure [Ri ght Upper Arm] Pulse Oximetry 100 100 98 Oxygen Delivery Me thod 09/15/22 17:02 09/15/22 17:30 09/15/22 17:32 Temperature Pulse Rate 96 99 95 Pulse Rate [Pulse Oximeter] Respiratory Rate Blood Pressure 124/65 132/60 Blood Pressure [Ri ght Upper Arm] Pulse Oximetry 98 99 98 Oxygen Delivery Mt thod 09/15/22 17:33 09/15/22 18:02 09/15/22 18:32 Temperature Pulse Rate 92 Pulse Rate [Pulse Oximeter] Respiratory Rate Blood Pressure 128/55 L 125/66 Blood Pressure [Ri ght Upper Arm] Pulse Oximetry 97 Oxygen Delivery Me thod 09/15/22 19:00 09/15/22 19:02 09/15/22 19:30 Temperature Pulse Rate 107 H 96 87 Pulse Rate [Pulse Oximeter] Respiratory Rate Blood Pressure 131/56 L Blood Pressure [Ri ght Upper Arm] Pulse Oximetry 97 98 98 Oxygen Delivery Me thod 09/15/22 19:32 Temperature Pulse Rate 86 Pulse Rate [Pulse Oximeter] Respiratory Rate Blood Pressure 127/57 L Blood Pressure [Ri ght Upper Arm] Pulse Oximetry 99 Oxygen Delivery Me thod Course Course Hospital Course: 4:15 PM: AIDET performed, workup will include IV peripheral, EKG, BNP, CBC, lactate, blood cultures, COVID/influenza/RSV, and imaging XR chest two view, rule out heart failure exasperation versus possible worsening pneumonia. Differential includes viral upper respiratory illness, pneumonia, COVID, strep throat illness, bronchitis, COPD exacerbation, chronic cough, sepsis, worsening heart failure, PE, pneumothorax, pulmonary edema, less likely ACS. Reevaluation(s) Reevaluation #1: Imaging: IMPRESSION: Stable small bilateral pleural effusions. No significant pulmonary vascular congestion. Patient's EKG showed a sinus tachycardia, bpm 107, no acute changes compared to previous, BMP was within normal limits, CBC showed no leukocytosis, lactate normal, imaging showed no acute cardiopulmonary process, it did show stable small bilateral pleural effusions. vitals remained stable. Will obtain CTA chest angiogram, 20 mg IV Lasix. Patient and daughter were in agreement. Time: 17:51 Reevaluation #2: CTA Chest: IMPRESSION: No pulmonary embolism. Significant interval decrease in the size of the previously seen bilateral pleural effusions. Small residual effusions remain. Diffuse bronchial thickening, likely representing chronic bronchitis, and mild bronchiectasis. Mucous plugging in the left lower lobe with associated atelectasis. Tree-in-bud nodules in the right upper lobe and patchy ground-glass opacities in the left upper lobe, compatible with infection. Patient and daughter updated on imaging results, imaging did show significant interval decrease in size of previous seen bilateral pleural effusions, over further still diffuse bronchial thickening which represents chronic bronchitis and mild bronchiectasis with associated atelectasis. No changes to be made with the medications at this time, vitals remained stable, she can follow-up as an outpatient with Pulmonary as scheduled on 10/22 and primary care provider over the next 7-10 days, return precautions given. Time: 19:52 Vital Signs Vital signs: Initial Vital Signs Temperature 97.5 F L 09/15/22 15:28 Temperature Source Temporal Artery Scan 09/15/22 15:28 Pulse Rate 119 H 09/15/22 15:28 Pulse Rhythm Regular 09/15/22 15:28 Pulse Strength 3+ Normal 09/15/22 15:28 Respiratory Rate 18 09/15/22 15:28 Blood Pressure 135/69 09/15/22 15:28 Blood Pressure Mean 91 09/15/22 15:28 Blood Pressure Position Sitting 09/15/22 15:28 Pulse Oximetry 99 09/15/22 15:28 Oxygen Delivery Method Room Air 09/15/22 15:28 Vital Signs Temperature 97.5 F L 09/15/22 15:28 Pulse Rate 119 H 09/15/22 15:28 Respiratory Rate 18 09/15/22 15:28 Blood Pressure 135/69 09/15/22 15:28 Pulse Oximetry 99 09/15/22 15:28 Oxygen Delivery Method Room Air 09/15/22 15:28 Temperature 97.5 F L 09/15/22 15:28 Pulse Rate 98 09/15/22 20:10 Respiratory Rate 20 09/15/22 20:10 Blood Pressure 127/55 L 09/15/22 20:10 Pulse Oximetry 99 09/15/22 19:32 Oxygen Delivery Method Room Air 09/15/22 15:28 Medical Decision Making Lab Data Labs: Lab Results 09/15/22 09/15/22 Range/Units 16:29 16:40 WBC 3.86 L (4.50-11.00) K/uL RBC 2.85 L (4.00-5.20) m/uL Hgb 9.4 L (12.0-16.0) gm/dL Hct 30.3 L (33.0-51.0) % MCV 106 H (80-100) fL MCH 33 (26-34) pg MCHC 31 L (32-36) gm/dL RDW Coeff of Navneet 18.6 H (11.5-15.5) % Plt Count 102 L (140-440) K/uL Neut % (Auto) 83.5 H (42.0-72.0) % Lymph % (Auto) 6.7 L (20-44) % Treasure % (Auto) 8.0 (0.0-11.0) % Eos % (Auto) 0.0 (0.0-7.0) % Baso % (Auto) 0.0 (0.0-3.0) % Neut # (Auto) 3.20 (1.7-7.0) K/uL Lymph # (Auto) 0.30 L (0.90-2.90) K/uL Treasure # (Auto) 0.30 (0.00-0.90) K/UL Eos # (Auto) 0.00 (0.00-0.50) K/uL Baso # (Auto) 0.00 (0.00-0.30) K/uL Diff Slide Review Acceptable Review (Acceptable) INR 1.21 H (0.91-1.10) Sodium 138 (135-149) mmol/L Potassium 4.0 (3.6-5.1) mmol/L Chloride 105 (96-114) mmol/L Carbon Dioxide 28 (20-32) mmol/L BUN 12 (7-30) mg/dL Creatinine 0.9 (0.5-1.5) mg/dL Estimated Creat Clear 40.21 Estimated GFR 67 ml/min Glucose 111 (60-115) mg/dL Lactate 1.7 (0.5-1.9) mmol/L Calcium 8.4 (8.4-10.6) mg/dL Total Bilirubin 0.8 (0.1-1.5) mg/dL AST 52 H (12-35) U/L ALT 43 H (4-35) U/L Alkaline Phosphatase 79 (40-150) U/L NT-Pro-B Natriuret Pep 2880 pg/mL Total Protein 6.1 (6.0-8.3) g/dL Albumin 3.4 (3.3-5.0) g/dL SARS-CoV-2 (PCR) Negative SARS-CoV-2 (Negative) Influenza Type A (PCR) Negative PCR FLU A (Negative) Influenza Type B (PCR) Negative PCR FLU B (Negative) RSV (PCR) Negative PCR RSV (Negative) Discharge Plan Discharge Clinical Impression: Bronchiectasis, Bilateral pleural effusion, Chronic bronchitis Patient Disposition: Home, Self-Care Condition: Improved Instructions: [place] pleural (ED), Bronchiectasis (ED), How Your Lungs Work (ED) Additional Instructions: Patient to continue her original regimen of medications, no changes to be made to her diuretics at this time, she has proper follow-up with pulmonary on October 22, she should also follow-up with her primary care provider over the next 7-10 days, return precautions given Activity Level: No Restrictions Prescriptions: No Action prednisone 10 mg tablet 10 mg PO QDAY methotrexate sodium 2.5 mg tablet 17.5 mg PO .Every 7 Days Rx Instructions: takes on wednesday sulfamethoxazole-trimethoprim [Bactrim DS] 800-160 mg tablet 1 tab PO BID Qty: 20 0RF cholecalciferol (vitamin D3) 50 mcg (2,000 unit) capsule 50 mcg PO QDAY multivitamin Tablet 1 tab PO QAM ascorbic acid (vitamin C) 500 mg tablet 1 g PO QDAY albuterol sulfate 2.5 mg /3 mL (0.083 %) solution for nebulization 2.5 mg inhalation BID folic acid 1 mg tablet 3 mg PO DAILY furosemide 20 mg tablet 20 mg PO DAILY Patient Comments: PRN Lactobacillus acidophilus 0.5 mg (100 million cell) tablet 1,000 mmu cells PO DAILY Saline Nasal 0.65 % aerosol,spray 1 spray intranasal QID PRN sodium chloride 7 % solution for nebulization 1 inh inhalation BID ferrous gluconate 324 mg (37.5 mg iron) tablet 324 mg PO QDAY Qty: 100 3RF Eliquis 5 mg tablet 2.5 mg PO BID Qty: 90 3RF rosuvastatin 5 mg tablet See Rx Instructions .ROUTE .COMPLEX Qty: 90 3RF Dose Instruction: TAKE 1 TABLET BY MOUTH DAILY Rx Instructions: TAKE 1 TABLET BY MOUTH DAILY valganciclovir 450 mg tablet See Rx Instructions .ROUTE .COMPLEX Qty: 90 3RF Dose Instruction: TAKE 1 TABLET BY MOUTH DAILY Rx Instructions: TAKE 1 TABLET BY MOUTH DAILY hydrocodone-acetaminophen 5-325 mg tablet 1 tab PO Q6H PRN (Reason: pain) Qty: 40 0RF Follow Up/Referrals: Kyle Healy MD [Primary Care Provider] - Stand Alone Forms: [employer] Info Instructions
--- NOTE | 2022-09-15 16:30 | CRLHL7_ITS ---
For Patients: As a result of the Century Cures Act, medical imaging exams and procedure reports are released immediately into your electronic medical record. You may view this report before your referring provider. If you have questions, please contact your health care provider. INDICATION: Question HF exacerbation. TECHNIQUE: Chest 2 views. COMPARISON: Chest radiograph 08/03/2022. FINDINGS: Stable small bilateral pleural effusions with minimal bibasilar atelectasis. No new focal consolidation. No pneumothorax. Normal heart size and pulmonary vascularity. Dense mitral annulus calcifications. Surgical clips right upper quadrant. Degenerative changes of the spine. Partially visualized lumbar spine hardware. IMPRESSION: Stable small bilateral pleural effusions. No significant pulmonary vascular congestion. Dictated by Kenisha Carrillo MD @ 09/15/2022 5:49:16 PM (Electronically Signed)
[2022-09-15 16:42] LABS: Lactate* 1.7 mmol/L (0.5-1.9)
[2022-09-15 16:44] LABS: Hematocrit 30.3 % (33.0-51.0); Hemoglobin* 9.4 gm/dL (12.0-16.0); Immature Granulocytes Pct Auto 1.8 %; Lymphocytes Percent Auto 6.7 % (20-44); Mean Corpuscular HGB Conc 31 gm/dL (32-36); Mean Corpuscular Hemoglobin 33 pg (26-34); Mean Corpuscular Volume 106 fL (80-100); Neutrophils Percent Auto 83.5 % (42.0-72.0); Platelet Count* 102 K/uL (140-440); RDW Coefficient of Variation % 18.6 % (11.5-15.5); Red Blood Count 2.85 m/uL (4.00-5.20); White Blood Count* 3.86 K/uL (4.50-11.00)
[2022-09-15 16:48] LABS: Slide Review Reflex Yes
[2022-09-15 17:00] LABS: Albumin* 3.4 g/dL (3.3-5.0); Chloride* 105 mmol/L (96-114); INR 1.21 (0.91-1.10); Prothrombin Time 16.1 Seconds; Sodium* 138 mmol/L (135-149)
[2022-09-15 17:02] LABS: Creatinine* 0.9 mg/dL (0.5-1.5); Est. Creatinine Clearance* 40.21; Estimated Glomerular Filt Rate 67 ml/min
[2022-09-15 17:03] LABS: Alanine Aminotransferase* 43 U/L (4-35); Alkaline Phosphatase* 79 U/L (40-150); Aspartate Amino Transferase* 52 U/L (12-35); Bilirubin Total* 0.8 mg/dL (0.1-1.5); Blood Urea Nitrogen* 12 mg/dL (7-30); Calcium* 8.4 mg/dL (8.4-10.6); Carbon Dioxide* 28 mmol/L (20-32); Glucose* 111 mg/dL (60-115); Total Protein* 6.1 g/dL (6.0-8.3)
[2022-09-15 17:12] LABS: PCR FLU A Negative PCR FLU A (Negative); PCR FLU B Negative PCR FLU B (Negative); PCR RSV Negative PCR RSV (Negative)
[2022-09-15 17:14] LABS: SARS PCR* Negative SARS-CoV-2 (Negative)
[2022-09-15 17:14] LABS: NT Pro B Type NatriureticPept* 2880 pg/mL
[2022-09-15 17:46] LABS: Slide Review Acceptable Review (Acceptable)
--- NOTE | 2022-09-15 18:22 | CRLHL7_ITS ---
For Patients: As a result of the Century Cures Act, medical imaging exams and procedure reports are released immediately into your electronic medical record. You may view this report before your referring provider. If you have questions, please contact your health care provider. INDICATION: Heart failure exacerbation versus chronic bronchiectasis. TECHNIQUE: CT chest PE was acquired with 95 cc Isovue 370 IV contrast. COMPARISON: Chest CT 12/24/2021. FINDINGS: Heart and vasculature: Contrast opacification of the pulmonary arterial tree is adequate. No sign of pulmonary embolism. Heart size is normal. Thoracic aorta and pulmonary artery are normal in caliber.Coronary artery and thoracic aorta atherosclerotic calcification. Aortic valve and heavy mitral annulus calcifications. Trace pericardial effusion. Lungs and pleura: Significant interval decrease in size of the previously seen bilateral pleural effusions. Small residual effusions remain. Mild bibasilar atelectasis. There are tree-in-bud nodules in the posterior mid right upper lobe. Patchy areas of ground-glass within the left upper lobe, some with tree-in-bud nodules. These are new compared to the prior exam. Diffuse bronchial wall thickening and bronchiectasis. There is mucous plugging several airways in the left lower lobe posteriorly. Mild diffuse bronchiectasis. No pneumothorax. Right upper lobe calcified granuloma. Lymph nodes/mediastinum: No lymphadenopathy. Few scattered calcified mediastinal lymph nodes. Chest wall: No masses. Upper abdomen: Splenic calcified granulomata. Cholecystectomy. Bones: Multilevel degenerative changes with accentuated thoracic kyphosis and ankle oasis the dorsal spine. IMPRESSION: No pulmonary embolism. Significant interval decrease in the size of the previously seen bilateral pleural effusions. Small residual effusions remain. Diffuse bronchial thickening, likely representing chronic bronchitis, and mild bronchiectasis. Mucous plugging in the left lower lobe with associated atelectasis. Tree-in-bud nodules in the right upper lobe and patchy ground-glass opacities in the left upper lobe, compatible with infection. Please note that all CT scans at this facility use dose modulation, iterative reconstruction, and/or weight-based dosing when appropriate to reduce radiation dose to as low as reasonably achievable. Dictated by Дмитрий Macias MD @ 09/15/2022 7:40:15 PM (Electronically Signed)
[2022-09-15] MEDS: FUROSEMIDE 10 MG/ML inj 20 MG IVP (19:03)
== END 2022-09-15 20:12 | disposition home or self-care (01) ==
PROVIDERS: Emergency Provider Student in an Organized Health Care Education/Training Program; PCP Family Medicine
DX: J47.9 Bronchiectasis, uncomplicated (principal); J91.8 Pleural effusion in other conditions classified elsewhere
CPT/HCPCS: 36415; 71046; 71260; 80053; 83605; 83880; 85025; 85610; 87040; 87502; 87634; 87635; 93005; 96374; 99283; 99284; 99285; J1940; Q9967

== ENCOUNTER 2022-09-28 17:14 | Emergency (ER) | payer MEDICARE, OTHER, SELFPAY ==
[2022-09-28 17:27] VITALS: BP 134/80; PULSE 114; RESP 18; TEMP 36.6; O2SAT 95; BMI 28.3
[2022-09-28 18:07] VITALS: PULSE 103; O2SAT 96
--- NOTE | 2022-09-28 18:31 | CRLHL7_ITS ---
For Patients: As a result of the Century Cures Act, medical imaging exams and procedure reports are released immediately into your electronic medical record. You may view this report before your referring provider. If you have questions, please contact your health care provider. INDICATION: Chest pain and cough COMPARISON: September 15, 2022 TECHNIQUE: Two views of the chest were acquired FINDINGS: TUBES AND LINES: None. HEART AND MEDIASTINUM: The heart size is normal. The mediastinal contour appears normal for patient age. LUNGS AND PLEURAL SPACES: The lungs appear normal.Minimal blunting of the right costophrenic angle probably representing a small amount of pleural fluid or pleural thickening. Similar to the prior study. OSSEOUS STRUCTURES: Age-appropriate appearance. No acute focal finding. IMPRESSION: The lungs are clear. Minimal blunting the right costophrenic angle unchanged probably a small pleural effusion and a small amount of pleural thickening. Dictated by Luan Chang MD @ 09/28/2022 7:38:30 PM (Electronically Signed)
--- NOTE | 2022-09-28 18:34 | ED_ITS ---
HPI - General Adult General Chief complaint: Weakness Stated complaint: Weakness, High pulse Time Seen by Provider: 09/28/22 18:16 History of Present Illness HPI narrative: This 77-year-old female comes in reporting shortness of breath and weakness when ambulating even just 10 steps. She states that these symptoms have been worsening over the past 2-4 weeks. She was seen here 2 weeks ago and had a workup. She states that she has not felt any better but rather feels worse. She states that she has not been able to eat food not because she is not hungry but because she does not have the strength and breath to put together food for herself. She states that she lives in the basement of a home where her daughter lives. She does have a history of paroxysmal atrial fibrillation and was noted to have an increased heart rate initially when ambulance came today. She arrives here with the heart rate at around 100 beats per minute. She also has a history of pulmonary embolism and is on Eliquis. She reports seeing a hoop punch and coiler operator every 6 months lasts for management of severe aortic stenosis and Munir mitral stenosis. The last appointment was 3 months ago and there was discussion for her next appointment in December to include a a decision whether not to repair her aortic stenosis. Related Data Home Medications Medication Instructions Recorded Confirmed Lactobacillus acidophilus 0.5 mg 1,000 mmu cells PO DAILY 12/22/21 09/28/22 (100 million cell) tablet albuterol sulfate 2.5 mg/3 mL 2.5 mg inhalation BID 12/22/21 09/28/22 (0.083 %) solution for nebulization folic acid 1 mg tablet 3 mg PO DAILY 12/22/21 09/28/22 furosemide 20 mg tablet 20 mg PO DAILY 12/22/21 09/28/22 sodium chloride 0.65 % nasal spray 1 spray intranasal QID PRN 12/22/21 08/03/22 aerosol (Saline Nasal) sodium chloride 7 % for 1 inh inhalation BID 12/22/21 08/03/22 nebulization ascorbic acid (vitamin C) 500 mg 1 g PO QDAY 01/16/22 09/28/22 tablet cholecalciferol (vitamin D3) 50 50 mcg PO QDAY 01/16/22 09/28/22 mcg (2,000 unit) capsule multivitamin 1 tab PO QAM 01/16/22 09/28/22 methotrexate sodium 2.5 mg tablet 17.5 mg PO .Every 7 Days 03/10/22 09/28/22 prednisone 10 mg tablet 10 mg PO QDAY 03/10/22 09/28/22 Previous Rx's Medication Instructions Recorded ferrous gluconate 324 mg (37.5 mg 324 mg PO QDAY #100 tabs 02/26/22 iron) tablet apixaban 5 mg tablet (Eliquis) 2.5 mg PO BID #90 tabs 03/31/22 rosuvastatin 5 mg tablet See Rx Instructions .Route 07/09/22 .COMPLEX #90 tabs sulfamethoxazole 800 1 tab PO BID #20 tabs 08/03/22 mg-trimethoprim 160 mg tablet (Bactrim DS) valganciclovir 450 mg tablet See Rx Instructions .Route 08/22/22 .COMPLEX #90 tabs hydrocodone 5 mg-acetaminophen 325 1 tab PO Q6H PRN pain #40 tabs 09/04/22 mg tablet Allergies Allergy/AdvReac Type Severity Reaction Status Date / Time NSAIDS (Non-Steroidal Allergy Severe GI bleed Verified 09/28/22 17:34 Anti-Inflamma terbinafine Allergy Intermediate Headache Verified 09/28/22 17:34 levofloxacin AdvReac Severe tendon Verified 09/28/22 17:34 rupture Review of Systems Status of ROS: Reports: 10 or more systems reviewed and unremarkable except as noted in History and below Narrative: Constitutional: No fevers, no weight gain or loss. Eyes: No discharge. No vision changes. HENT: No congestion, no sore throat, no ear pain. Cardiovascular: No chest pain, no palpitations. Respiratory: Shortness of breath with any kind of exertion. She does report a cough. Gastrointestinal: No abdominal pain, no vomiting, no diarrhea. Genitourinary: No dysuria, no hematuria. Musculoskeletal: Normal range of motion. Skin: No rashes, no pruritis. Neurological: No dizziness, sensory change, speech change. Generalized fatigue and weakness. Endo/Heme/Allergies: No bruising or bleeding. No polydipsia. Pysch: no suicidality, no anxiety, no insomnia. All other systems reviewed and are negative. 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 of unspecified site (ICD-10) Surgical History History of left nephrectomy ?Z90.5 - Acquired absence of kidney (ICD-10) History of lithotripsy ?Z98.890 - Other specified postprocedural states (ICD-10) History of lumbar fusion (04/2010) ?Z98.1 - Arthrodesis status (ICD-10) S/P cataract extraction ?Z98.49 - Cataract extraction status, unspecified eye (ICD-10) S/P cholecystectomy ?Z90.49 - Acquired absence of other specified parts of digestive tract (ICD- 10) Family History Mother Breast cancer, Onset Age: 70 Sister Breast cancer, Onset Age: 35 Social History Smoking Status: Never smoker How often do you have a drink containing alcohol: monthly or less AUDIT-C Alcohol total score: 1 Non-prescribed substance use: denies use Little interest or pleasure in doing things: not at all Feeling down, depressed, or hopeless: several days service: No Exam Narrative: Exam Narrative: Constitutional: Well-developed, well-nourished, no acute distress. HEENT: Normocephalic, atraumatic. Neck: Normal range of motion. Nontender. Supple. Heart: Regular. Borderline tachycardia. Intact distal pulses. Holosystolic ejection murmur. Lungs: Clear to auscultation. No chest discomfort. No wheezes, rhonchi, or rales. No use of accessory muscles for breathing. Abdomen: Normal bowel sounds. Nontender. No rebound tenderness. Genitalia: Deferred. Back: No midline tenderness. Normal range of motion. Extremities: Normal range of motion. No injury. No pedal edema. Skin: Intact. No rash. Warm. No erythema or pallor. Neurologic: No altered sensation. No weakness. Alert and oriented. Psychiatric: No suicidality. No anxiety or depression. No insomnia. Nursing notes and vitals signs are reviewed. Const: Vital Signs, click to edit/add: Vital Signs - 24 hr 09/28/22 17:27 09/28/22 18:07 09/28/22 20:32 Temperature 97.9 F Pulse Rate [Left P ulse Oximeter] 114 H 103 H 86 Respiratory Rate 18 Blood Pressure [Le ft Upper Arm] 134/80 105/59 L Pulse Oximetry 95 96 97 Oxygen Delivery Me thod Room Air Room Air Room Air Course Vital Signs Vital signs: Initial Vital Signs Temperature 97.9 F 09/28/22 17:27 Temperature Source Temporal Artery Scan 09/28/22 17:27 Pulse Rate 114 H 09/28/22 17:27 Respiratory Rate 18 09/28/22 17:27 Blood Pressure 134/80 09/28/22 17:27 Blood Pressure Mean 98 09/28/22 17:27 Blood Pressure Position Sitting 09/28/22 17:27 Pulse Oximetry 95 09/28/22 17:27 Oxygen Delivery Method Room Air 09/28/22 17:27 Vital Signs Temperature 97.9 F 09/28/22 17:27 Pulse Rate 114 H 09/28/22 17:27 Respiratory Rate 18 09/28/22 17:27 Blood Pressure 134/80 09/28/22 17:27 Pulse Oximetry 95 09/28/22 17:27 Oxygen Delivery Method Room Air 09/28/22 17:27 Temperature 97.9 F 09/28/22 17:27 Pulse Rate 86 09/28/22 20:32 Respiratory Rate 18 09/28/22 17:27 Blood Pressure 105/59 L 09/28/22 20:32 Pulse Oximetry 97 09/28/22 20:32 Oxygen Delivery Method Room Air 09/28/22 20:32 Medical Decision Making MDM Narrative Medical decision making narrative: This patient comes in reporting weakness and shortness of breath with activity. She does have a history of aortic stenosis which is rated at moderate to severe. She also has some mitral stenosis. Chest x-ray today returns with essentially reassuring findings. Her lab results also are not showing any sign of new infection. Her EKG shows sinus rhythm and a rate around 90-100 beats per minute. It seems that her symptoms have worsened over the last month or so and this could be attributed to her worsening aortic and mitral stenosis. I did talk with the patient about options going forward and stated that her hoop punch and coiler operator should be involved at some point to consider more definitive treatment for her symptoms. Patient states that she feels okay to go home and does have support with her daughter and grandchildren there. She feels that she is okay to function there and will be able to call her hoop punch and coiler operator tomorrow to make plans going forward. Lab Data Labs: Lab Results 09/28/22 09/28/22 Range/Units 18:32 19:05 WBC 11.20 H (4.50-11.00) K/uL RBC 3.06 L (4.00-5.20) m/uL Hgb 9.9 L (12.0-16.0) gm/dL Hct 31.5 L (33.0-51.0) % MCV 103 H (80-100) fL MCH 32 (26-34) pg MCHC 31 L (32-36) gm/dL RDW Coeff of Navneet 18.1 H (11.5-15.5) % Plt Count 156 (140-440) K/uL Neut % (Auto) 89.7 H (42.0-72.0) % Lymph % (Auto) 5.8 L (20-44) % [place] % (Auto) 2.4 (0.0-11.0) % Eos % (Auto) 0.0 (0.0-7.0) % Baso % (Auto) 0.1 (0.0-3.0) % Neut # (Auto) 10.00 H (1.7-7.0) K/uL Lymph # (Auto) 0.60 L (0.90-2.90) K/uL [place] # (Auto) 0.30 (0.00-0.90) K/UL Eos # (Auto) 0.00 (0.00-0.50) K/uL Baso # (Auto) 0.00 (0.00-0.30) K/uL INR 1.21 H (0.91-1.10) Sodium 136 (135-149) mmol/L Potassium 3.6 (3.6-5.1) mmol/L Chloride 103 (96-114) mmol/L Carbon Dioxide 29 (20-32) mmol/L BUN 15 (7-30) mg/dL Creatinine 0.8 (0.5-1.5) mg/dL Estimated Creat Clear 40.21 Estimated GFR 77 ml/min Glucose 116 H (60-115) mg/dL Calcium 8.2 L (8.4-10.6) mg/dL NT-Pro-B Natriuret Pep 1670 pg/mL SARS-CoV-2 (PCR) Negative SARS-CoV-2 (Negative) Influenza Type A (PCR) Negative PCR FLU A (Negative) Influenza Type B (PCR) Negative PCR FLU B (Negative) RSV (PCR) Negative PCR RSV (Negative) POC Troponin I 0.04 (0.01-0.04) ng/ml Imaging Data Chest x-ray: Radiologist's impression: The lungs are clear. Minimal blunting the right costophrenic angle unchanged probably a small pleural effusion and a small amount of pleural thickening. ECG Data Attestation: I personally reviewed and interpreted this ECG as follows: Interpretation: Normal sinus rhythm. Rate is 95 beats per minute. There are no ST or T-wave abnormalities. 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 Follow up with hoop punch and coiler operator for ongoing management of aortic and mitral stenosis. Return if worsening symptoms happen. Prescriptions: No Action prednisone 10 mg tablet 10 mg PO QDAY methotrexate sodium 2.5 mg tablet 17.5 mg PO .Every 7 Days Rx Instructions: takes on wednesday sulfamethoxazole-trimethoprim [Bactrim DS] 800-160 mg tablet 1 tab PO BID Qty: 20 0RF cholecalciferol (vitamin D3) 50 mcg (2,000 unit) capsule 50 mcg PO QDAY multivitamin Tablet 1 tab PO QAM ascorbic acid (vitamin C) 500 mg tablet 1 g PO QDAY albuterol sulfate 2.5 mg /3 mL (0.083 %) solution for nebulization 2.5 mg inhalation BID folic acid 1 mg tablet 3 mg PO DAILY furosemide 20 mg tablet 20 mg PO DAILY Patient Comments: PRN Lactobacillus acidophilus 0.5 mg (100 million cell) tablet 1,000 mmu cells PO DAILY Saline Nasal 0.65 % aerosol,spray 1 spray intranasal QID PRN sodium chloride 7 % solution for nebulization 1 inh inhalation BID ferrous gluconate 324 mg (37.5 mg iron) tablet 324 mg PO QDAY Qty: 100 3RF Eliquis 5 mg tablet 2.5 mg PO BID Qty: 90 3RF rosuvastatin 5 mg tablet See Rx Instructions .ROUTE .COMPLEX Qty: 90 3RF Dose Instruction: TAKE 1 TABLET BY MOUTH DAILY Rx Instructions: TAKE 1 TABLET BY MOUTH DAILY valganciclovir 450 mg tablet See Rx Instructions .ROUTE .COMPLEX Qty: 90 3RF Dose Instruction: TAKE 1 TABLET BY MOUTH DAILY Rx Instructions: TAKE 1 TABLET BY MOUTH DAILY hydrocodone-acetaminophen 5-325 mg tablet 1 tab PO Q6H PRN (Reason: pain) Qty: 40 0RF Follow Up/Referrals: Kyle Healy MD [Primary Care Provider] - Stand Alone Forms: [facility] Info Instructions
--- OUTSIDE RECORDS SUMMARY | 2022-09-28 18:40 | XMS_ITS | Continuity of Care Document ---
Author Name Unknown Organization [facility] Address [address] [address] [place] [address] Phone Care Team Providers Care Healthcare Architect Name Role Phone Tosha West Unavailable Unavailable [...] on Encounter [facility] Compl [facility], [address] [address], [place], [place], [id number], [place] tel:[phone] [facility] No Information 9 Stephen Givens. [address], [id number], [place]. tel:[phone] [facility], [address] [address], [place], [place], [id number], [place] tel:[phone] [facility] No Information 9 No Information Init Inpt Cons New/est Mod-hi [facility], [address] [address], [place], [place], [id number], tel:[phone] [facility] No Information 9 Christine Kraft. [address] [facility] [address], [place], [place], [id number], [place]. tel:[phone] Family History Family Member Type Diagnosis Age At Onset No Information Payers Payer name Insurance type Covered green party ID Authoriza tion(s) No Information Social History Type Description Quantity Date Captured Comments Sex Female Smoking Status No Information Chief Complaint And Reason For Visit No Information Reason For Referral Reason For Referral No Information Plan Of Treatment Date Type Action Status No Information History Of Present Illness Encounter Date Complaint History Of Prese nt Illness No Information Functional Status Date Functional Assessmen t No Information Instructions Date Instruction Additional Infor mation No Information Assessments Type Assessment Date No Information Patient Care Teams Name Effective Dates (start - stop) Status Members No Information
[2022-09-28 19:34] LABS: PCR FLU A Negative PCR FLU A (Negative); PCR FLU B Negative PCR FLU B (Negative); PCR RSV Negative PCR RSV (Negative)
[2022-09-28 19:35] LABS: Basophils Percent Auto 0.1 % (0.0-3.0); Hematocrit 31.5 % (33.0-51.0); Hemoglobin* 9.9 gm/dL (12.0-16.0); Lymphocytes Percent Auto 5.8 % (20-44); Mean Corpuscular HGB Conc 31 gm/dL (32-36); Mean Corpuscular Hemoglobin 32 pg (26-34); Mean Corpuscular Volume 103 fL (80-100); Monocytes Percent Auto 2.4 % (0.0-11.0); Neutrophils Percent Auto 89.7 % (42.0-72.0); Platelet Count* 156 K/uL (140-440); RDW Coefficient of Variation % 18.1 % (11.5-15.5); Red Blood Count 3.06 m/uL (4.00-5.20)
[2022-09-28 19:38] LABS: SARS PCR* Negative SARS-CoV-2 (Negative)
[2022-09-28 19:41] LABS: Troponin, Point-of-Care* 0.04 ng/ml (0.01-0.04)
[2022-09-28 19:46] LABS: Slide Review Reflex No
[2022-09-28 19:49] LABS: Chloride* 103 mmol/L (96-114)
[2022-09-28 19:50] LABS: Potassium* 3.6 mmol/L (3.6-5.1); Sodium* 136 mmol/L (135-149)
[2022-09-28 19:51] LABS: INR 1.21 (0.91-1.10); Prothrombin Time 16.1 Seconds
[2022-09-28 19:53] LABS: Blood Urea Nitrogen* 15 mg/dL (7-30); Calcium* 8.2 mg/dL (8.4-10.6); Carbon Dioxide* 29 mmol/L (20-32); Creatinine* 0.8 mg/dL (0.5-1.5); Est. Creatinine Clearance* 40.21; Estimated Glomerular Filt Rate 77 ml/min; Glucose* 116 mg/dL (60-115)
[2022-09-28 20:04] LABS: NT Pro B Type NatriureticPept* 1670 pg/mL
[2022-09-28 20:32] VITALS: BP 105/59; PULSE 86; O2SAT 97
[2022-09-28 21:25] VITALS: PULSE 91; O2SAT 99
== END 2022-09-28 22:20 | disposition home or self-care (01) ==
PROVIDERS: Emergency Provider Emergency Medicine Emergency Medical Services; PCP Family Medicine
DX: I34.2 Nonrheumatic mitral (valve) stenosis (principal); I50.32 Chronic diastolic (congestive) heart failure; Z79.01 Long term (current) use of anticoagulants
CPT/HCPCS: 36415; 71046; 80048; 83880; 84484; 85025; 85610; 87631; 93005; 99284

== ENCOUNTER 2022-10-22 13:29 | Outpatient (REF) | payer MEDICARE, OTHER, SELFPAY ==
[2022-10-22 14:05] LABS: Alanine Aminotransferase* 33 U/L (4-35); Aspartate Amino Transferase* 51 U/L (12-35); Estimated Glomerular Filt Rate 59 ml/min
[2022-10-22 14:11] LABS: Basophils Absolute Auto 0.02 K/uL (0.00-0.30); Basophils Percent Auto 0.4 % (0.0-3.0); Eosinophils Absolute Auto 0.03 K/uL (0.00-0.50); Eosinophils Percent Auto 0.5 % (0.0-7.0); Hematocrit 31.6 % (33.0-51.0); Hemoglobin* 9.5 gm/dL (12.0-16.0); Immature Granulocytes Abs Auto 0.02 K/uL (0.00-0.30); Immature Granulocytes Pct Auto 0.4 %; Lymphocytes Percent Auto 6.6 % (20-44); Mean Corpuscular HGB Conc 30 gm/dL (32-36); Mean Corpuscular Hemoglobin 33 pg (26-34); Mean Corpuscular Volume 110 fL (80-100); Monocytes Percent Auto 0.7 % (0.0-11.0); Neutrophils Percent Auto 91.4 % (42.0-72.0); Platelet Count* 118 K/uL (140-440); RDW Coefficient of Variation % 19.5 % (11.5-15.5); Red Blood Count 2.87 m/uL (4.00-5.20); White Blood Count* 5.46 K/uL (4.50-11.00)
[2022-10-22 14:14] LABS: Slide Review Reflex No
== END 2022-10-22 13:30 | disposition home or self-care (01) ==
LOC: NPINS 13:29
PROVIDERS: PCP Family Medicine; Visit Provider Internal Medicine
DX: Z79.899 Other long term (current) drug therapy (principal)
CPT/HCPCS: 82565; 84450; 84460; 85025

== ENCOUNTER 2023-01-04 11:46 | Outpatient (REF) | payer MEDICARE, OTHER, SELFPAY | END 2023-01-04 11:47 | disposition home or self-care (01) | LOC: NPINS 11:46 | PROVIDERS: PCP Family Medicine; Visit Provider Internal Medicine | DX: R91.8 Other nonspecific abnormal finding of lung field (principal); J47.9 Bronchiectasis, uncomplicated | CPT/HCPCS: 87070 ==

== ENCOUNTER 2023-01-22 12:34 | Outpatient (CLI) | payer MEDICARE, OTHER, SELFPAY ==
--- OUTSIDE RECORDS SUMMARY | 2023-01-22 12:37 | XMS_ITS | Continuity of Care Document ---
Author Name Unknown Organization [facility] Address [address] [place] [address] Phone Care Team Providers Care Engineering Professionals Name Role Phone Unavailable Unavailable Unavailable Advance Directives Directive Yes / No Effective Date File Name No Information Encounters Encounter Description Practice Location Reason(s) For Visit Diagnoses Date Provider Providers Copied on Encounter Z [facility], [address], [place], [address], [place] tel:[phone] [facility] No Information [phone] No Information Family History Family Member Type [...]
--- OUTSIDE RECORDS SUMMARY | 2023-01-22 12:37 | XMS_ITS | Continuity of Care Document ---
Author Name Unknown Organization [facility] Address [address] [address] [place] [address] Phone Care Team Providers Care Aircraft Maintenance Engineer Name Role Phone Tosha West Unavailable Unavailable [...] Compl [facility], [address] [address], [place], [place], [id number], [place] tel:[phone] [facility] No Information 9 Stephen Givens. [address], [id number], [place]. tel:[phone] Subsqt H[facility] E[facility]r Compl [facility], [address] [address], [place], [place], [id number], [place] tel:[phone] [facility] No Information 9 No Information Init Inpt Cons New/est Mod-hi [facility], [address] [address], [place], [place], [id number], tel:[phone] [facility] No Information 9 Christine Kraft. [address] [facility], [place], [place], [id number], [place]. tel:[phone] Family History Family Member Type Diagnosis Age [...]
== END 2023-01-22 12:35 | disposition home or self-care (01) ==
LOC: WOUND 12:35
PROVIDERS: PCP Family Medicine; Visit Provider Nurse Practitioner Family
DX: L89.893 Pressure ulcer of other site, stage 3 (principal); L98.8 Other specified disorders of the skin and subcutaneous tissue; E46 Unspecified protein-calorie malnutrition; Z68.27 Body mass index [BMI] 27.0-27.9, adult
CPT/HCPCS: 11042; 99213

== ENCOUNTER 2023-01-26 15:08 | Outpatient (CLI) | payer MEDICARE, OTHER, SELFPAY | END 2023-01-26 15:09 | disposition home or self-care (01) | LOC: WOUND 15:08 | PROVIDERS: PCP Family Medicine; Visit Provider Nurse Practitioner Family | DX: L89.893 Pressure ulcer of other site, stage 3 (principal); L98.8 Other specified disorders of the skin and subcutaneous tissue | CPT/HCPCS: 99213 ==

== ENCOUNTER 2023-01-28 12:32 | Outpatient (CLI) | payer MEDICARE, OTHER, SELFPAY | END 2023-01-28 12:33 | disposition home or self-care (01) | PROVIDERS: PCP Family Medicine; Visit Provider Nurse Practitioner Family | DX: L89.893 Pressure ulcer of other site, stage 3 (principal) | CPT/HCPCS: 97597 ==

== ENCOUNTER 2023-02-01 17:44 | Outpatient (REF) | payer MEDICARE, OTHER, SELFPAY ==
[2023-02-01 17:59] LABS: Chloride* 99 mmol/L (96-114); Sodium* 136 mmol/L (135-149)
[2023-02-01 18:02] LABS: Estimated Glomerular Filt Rate 59 ml/min
[2023-02-01 18:03] LABS: Blood Urea Nitrogen* 16 mg/dL (7-30); Calcium* 9.4 mg/dL (8.4-10.6); Carbon Dioxide* 29 mmol/L (20-32); Glucose* 124 mg/dL (60-115)
== END 2023-02-01 17:45 | disposition home or self-care (01) ==
LOC: NPINS 17:44
PROVIDERS: PCP Family Medicine; Visit Provider Internal Medicine
DX: I50.9 Heart failure, unspecified (principal)
CPT/HCPCS: 80048; 82103

== ENCOUNTER 2023-02-05 10:49 | Outpatient (CLI) | payer MEDICARE, OTHER, SELFPAY | END 2023-02-05 10:50 | disposition home or self-care (01) | LOC: WOUND 10:49 | PROVIDERS: PCP Family Medicine; Visit Provider Nurse Practitioner Family | DX: L89.893 Pressure ulcer of other site, stage 3 (principal); E46 Unspecified protein-calorie malnutrition; Z68.27 Body mass index [BMI] 27.0-27.9, adult | CPT/HCPCS: 11042 ==

== ENCOUNTER 2023-02-19 13:46 | Outpatient (CLI) | payer MEDICARE, OTHER, SELFPAY ==
[2023-02-19 15:34] LABS: Eosinophils Percent Auto 0.1 % (0.0-7.0); Hematocrit 35.2 % (33.0-51.0); Hemoglobin* 10.7 gm/dL (12.0-16.0); Lymphocytes Percent Auto 5.2 % (20-44); Mean Corpuscular HGB Conc 30 gm/dL (32-36); Mean Corpuscular Hemoglobin 33 pg (26-34); Mean Corpuscular Volume 107 fL (80-100); Monocytes Percent Auto 1.3 % (0.0-11.0); Neutrophils Percent Auto 92.8 % (42.0-72.0); Platelet Count* 142 K/uL (140-440); RDW Coefficient of Variation % 16.2 % (11.5-15.5); Red Blood Count 3.29 m/uL (4.00-5.20); White Blood Count* 7.89 K/uL (4.50-11.00)
[2023-02-19 15:35] LABS: Basophils Absolute Auto 0.02 K/uL (0.00-0.30); Basophils Percent Auto 0.3 % (0.0-3.0); Eosinophils Absolute Auto 0.01 K/uL (0.00-0.50); Immature Granulocytes Abs Auto 0.02 K/uL (0.00-0.30); Immature Granulocytes Pct Auto 0.3 %
[2023-02-19 15:46] LABS: Slide Review Reflex No
[2023-02-19 15:49] LABS: C Reactive Protein* 5.3 mg/dL (0.5-1.0)
[2023-02-21 10:00] LABS: Prealbumin 16.8 mg/dL (20.0-40.0)
== END 2023-02-19 13:47 | disposition home or self-care (01) ==
PROVIDERS: PCP Family Medicine; Visit Provider Nurse Practitioner Family
DX: L89.893 Pressure ulcer of other site, stage 3 (principal); E46 Unspecified protein-calorie malnutrition; Z68.27 Body mass index [BMI] 27.0-27.9, adult
CPT/HCPCS: 11042; 36415; 82040; 84134; 85025; 86140; 87070

== ENCOUNTER 2023-02-19 16:16 | Emergency (ER) | payer MEDICARE, OTHER, SELFPAY ==
[2023-02-19 16:35] VITALS: BP 123/69; PULSE 75; RESP 16; TEMP 36.1; O2SAT 98; BMI 26.9
--- NOTE | 2023-02-19 16:46 | CRLHL7_ITS ---
For Patients: As a result of the Century Cures Act, medical imaging exams and procedure reports are released immediately into your electronic medical record. You may view this report before your referring provider. If you have questions, please contact your health care provider. INDICATION: COUGH TECHNIQUE: Chest 2 views. COMPARISON: September 28, 2022 IMPRESSION: Evaluation is limited due to patient rotation. Patchy opacity at the left lung base may represent atelectasis or developing consolidation. No evidence of effusion or pneumothorax given limitations. Postoperative changes of the lumbar spine incompletely visualized. Dictated by Miguel Ferris MD @ 02/19/2023 6:05:29 PM (Electronically Signed)
[2023-02-19 17:28] LABS: Eosinophils Absolute Auto 0.01 K/uL (0.00-0.50); Eosinophils Percent Auto 0.1 % (0.0-7.0); Hemoglobin* 10.6 gm/dL (12.0-16.0); Immature Granulocytes Abs Auto 0.03 K/uL (0.00-0.30); Immature Granulocytes Pct Auto 0.4 %; Lymphocytes Percent Auto 5.6 % (20-44); Mean Corpuscular HGB Conc 31 gm/dL (32-36); Mean Corpuscular Hemoglobin 33 pg (26-34); Mean Corpuscular Volume 106 fL (80-100); Monocytes Percent Auto 1.3 % (0.0-11.0); Neutrophils Percent Auto 92.6 % (42.0-72.0); Platelet Count* 153 K/uL (140-440); RDW Coefficient of Variation % 16.3 % (11.5-15.5); Slide Review Reflex No; White Blood Count* 7.52 K/uL (4.50-11.00)
--- NOTE | 2023-02-19 17:34 | ED.GENADULT ---
HPI - General Adult General Chief complaint: Cough Stated complaint: Green spittle--unresponsive to antibiotics Time Seen by Provider: 02/19/23 17:32 History of Present Illness HPI narrative: Patient reports many complications due to RA. She has been treated with abx and steroids for bronchial infection however green sputum and cough returned shortly after finishing medication. Received a call today from her senior chemical process engineer after reaching out to their office on Wednesday, advising patient to be seen in ED. Patient recently moved into a senior apartment and is tearful in triage. 77-year-old woman presenting to the emergency department with concern of cough, somewhat productive of a newly yellow-green sputum over the last 2 days. Underlying history of bronchiectasis. Has had chronic cough of for 3 or 4 years at least. Earlier this year in August/September was evaluated through this emergency department noted to have pleural effusions that were drained. Does have a history of rheumatoid arthritis resulting in nephrectomy. She does have heart failure with diastolic dysfunction with severe stenosis and mitral stenosis. Treated for bronchiectasis in early January with 5 days of azithromycin and 7 days of cefuroxime. She has had changes to her rheumatoid regimen and now she says only taking methotrexate low-dose prednisone. Was discontinued from immunologics. Does also have b.i.d. albuterol and normal saline nebulizations. Also does have a history of atrial fibrillation with multiple pulmonary emboli and continues to take Eliquis. Somewhat recent transfer of care moving to this area though still doctors at [facility] for pulmonology and rheumatology I believe. Has been off of this most recent course of antibiotics for about 2 weeks. Did call into her senior chemical process engineer and then recommended to be seen in the emergency department. She does not have a fever. She is not more short of breath. Has been seen regularly in wound care clinic to resolve an abdominal postoperative wound from nephrectomy. Related Data Home Medications Medication Instructions Recorded Confirmed Lactobacillus acidophilus 0.5 mg 1,000 mmu cells PO DAILY 12/22/21 01/29/23 (100 million cell) tablet albuterol sulfate 2.5 mg/3 mL 2.5 mg inhalation BID 12/22/21 01/29/23 (0.083 %) solution for nebulization folic acid 1 mg tablet 3 mg PO DAILY 12/22/21 01/29/23 ascorbic acid (vitamin C) 500 mg 1 g PO QDAY 01/16/22 01/29/23 tablet cholecalciferol (vitamin D3) 50 50 mcg PO QDAY 01/16/22 01/29/23 mcg (2,000 unit) capsule multivitamin 1 tab PO QAM 01/16/22 01/29/23 methotrexate sodium 2.5 mg tablet 17.5 mg PO .Every 7 Days 03/10/22 01/29/23 prednisone 10 mg tablet 10 mg PO QDAY 03/10/22 01/29/23 metoprolol succinate 25 mg 50 mg PO QDAY 01/29/23 01/29/23 tablet,extended release 24 hr mometasone-formoterol HFA 100 2 puff inhalation BID 02/02/23 mcg-5 mcg/actuation aerosol inhaler sodium chloride 3 % for 4 ml inhalation .COMPLEX 02/02/23 nebulization Previous Rx's Medication Instructions Recorded ferrous gluconate 324 mg (37.5 mg 324 mg PO QDAY #100 tabs 02/26/22 iron) tablet apixaban 5 mg tablet (Eliquis) 2.5 mg (1/2 x 5 mg) PO BID #90 tabs 03/31/22 rosuvastatin 5 mg tablet See Rx Instructions .Route 07/09/22 .COMPLEX #90 tabs valganciclovir 450 mg tablet See Rx Instructions .Route 08/22/22 .COMPLEX #90 tabs nystatin 100,000 unit/gram topical 1 applic topical QDAY #30 grams 11/05/22 powder furosemide 20 mg tablet 20 mg PO DAILY #90 tabs 12/17/22 azithromycin 250 mg tablet See Rx Instructions PO .COMPLEX #6 01/29/23 tabs cefuroxime axetil 500 mg tablet 500 mg PO BID #14 tabs 01/29/23 hydrocodone 5 mg-acetaminophen 325 1 tab PO Q6H PRN pain #40 tabs 02/16/23 mg tablet metoprolol succinate 25 mg 25 mg PO BID #180 tabs 02/16/23 tablet,extended release 24 hr amoxicillin 875 mg-potassium 1 tab PO BID 8 days #16 tabs 02/19/23 clavulanate 125 mg tablet Allergies Allergy/AdvReac Type Severity Reaction Status Date / Time NSAIDS (Non-Steroidal Allergy Severe GI bleed Verified 01/29/23 14:16 Anti-Inflamma terbinafine Allergy Intermediate Headache Verified 01/29/23 14:16 levofloxacin AdvReac Severe tendon Verified 01/29/23 14:16 rupture Review of Systems Status of ROS: Reports: 6 or more systems reviewed and unremarkable except as noted in History and below [facility] Medical History History of kidney stones ?Z87.442 - Personal history of urinary calculi (ICD-10) History of adenomatous polyp of colon ?Z86.010 - Personal history of colonic polyps (ICD-10) POLST (Physician Orders for Life-Sustaining Treatment) ?Z78.9 - Other specified health status (ICD-10) History of vitamin D deficiency ?Z86.39 - Personal history of other endocrine, nutritional and metabolic disease (ICD-10) Mitral annular calcification ?I05.9 - Rheumatic mitral valve disease, unspecified (ICD-10) Abnormal LFTs (liver function tests) ?R79.89 - Other specified abnormal findings of blood chemistry (ICD-10) Surgical History S/P cataract extraction ?Z98.49 - Cataract extraction status, unspecified eye (ICD-10) S/P cholecystectomy ?Z90.49 - Acquired absence of other specified parts of digestive tract (ICD-10) History of left nephrectomy ?Z90.5 - Acquired absence of kidney (ICD-10) History of lumbar fusion (04/2010) ?Z98.1 - Arthrodesis status (ICD-10) History of lithotripsy ?Z98.890 - Other specified postprocedural states (ICD-10) Family History Mother Breast cancer, Onset Age: 70 Sister Breast cancer, Onset Age: 35 Social History What is your current living situation?: I presently have a place to live Problems where you live: no known problems In the past 12 months, utilities in danger of being shut off: no In the past 12 mos, have been you worried that your food would run out before you had money to buy more?: never true In the past 12 mos, the food you bought just didn't last and you didn't have money to buy more?: never true Smoking Status: Never smoker How often do you have a drink containing alcohol: monthly or less AUDIT-C Alcohol total score: 1 Non-prescribed substance use: denies use How often does anyone, including family, friends and others, physically hurt you: never How often does anyone, including family, friends and others, insult or talk down to you: never How often does anyone, including family, friends and others, threaten you with harm: never How often does anyone, including family, friends and others, scream or curse at you: never Little interest or pleasure in doing things: several days Feeling down, depressed, or hopeless: several days service: No Exam Narrative: Exam Narrative: Pleasant. NAD. Intermittent moderate productive cough. Does not appear to be tachypneic or labored in her breathing. Lungs with diffusely harsh sounds. Cardiac murmurs audible through her back. There are diffuse trace end inspiratory crackles and clearing squeaks more so in the right lower lung actually. Heart appears to be in a regular rate and rhythm today. She has a 3/6 systolic murmur question though loudest right sternal border present also throughout the anterior chest. Lower extremities with small amount of bruising right greater than left. 1+ pretibial pitting edema. As well perfused. Otherwise extremities with changes consistent at the MCP joints in particular of rheumatoid arthritis. Abdomen is soft and nontender. Clean dressing without surrounding erythema over presumed wound. Coughing up yellow-green sputum intermittently. Rhinorrhea present. Const: Vital Signs, click to edit/add: Vital Signs - 24 hr 02/19/23 16:35 02/19/23 19:20 Temperature 97.0 F L 97.6 F Pulse Rate [Pulse Oximeter] 75 98 Respiratory Rate 16 16 Blood Pressure [Ri ght Upper Arm] 123/69 118/69 Pulse Oximetry 98 95 Oxygen Delivery Me thod Room Air Documenting provider has reviewed patient's vital signs: yes Course Vital Signs Vital signs: Initial Vital Signs Temperature 97.0 F L 02/19/23 16:35 Temperature Source Temporal Artery Scan 02/19/23 16:35 Pulse Rate 75 02/19/23 16:35 Respiratory Rate 16 02/19/23 16:35 Blood Pressure 123/69 02/19/23 16:35 Blood Pressure Mean 87 02/19/23 16:35 Pulse Oximetry 98 02/19/23 16:35 Vital Signs Temperature 97.0 F L 02/19/23 16:35 Pulse Rate 75 02/19/23 16:35 Respiratory Rate 16 02/19/23 16:35 Blood Pressure 123/69 02/19/23 16:35 Pulse Oximetry 98 02/19/23 16:35 Temperature 97.6 F 02/19/23 19:20 Pulse Rate 98 02/19/23 19:20 Respiratory Rate 16 02/19/23 19:20 Blood Pressure 118/69 02/19/23 19:20 Pulse Oximetry 95 02/19/23 19:20 Oxygen Delivery Method Room Air 02/19/23 19:20 Medical Decision Making MDM Narrative Medical decision making narrative: Basic labs and chest x-ray has been completed by the time I am seeing Ms. James. Chest x-ray by my read looks to have some mild increase in density in the right lower lung compared to prior chest x-ray. It is rotated. Osteoarthritic changes are noted Radiology over-read notes similar question atelectasis verses evolving infiltrate. And I would note that prior CT imaging noted mucous plugging an atelectatic change in the left lower lung, among other findings. I do review sputum cultures from October and December of this year.. No sensitivities appear to be available. Only significant organism looks to be Haemophilus influenzae in October. Nothing further available per my conversation also with the lab. I discuss this case with pulmonology on-call for Ms. James's pulmonology clinic. Did suggest initiating antibiotics maybe with steroids. Sputum collection as well. And follow-up with primary early next week. Did discuss treatment options with Tanner. She would prefer not to increase steroid dosing. Will be initiating then Augmentin. I think this should also address H flu if present. Did review interactions. There is some concern raised in EMR of potential interaction with methotrexate though I see no indication/concerns of this in prescribing reference. Please see patient discharge plan. Lab Data Lab results reviewed: Yes I reviewed the patient's lab results Labs: Lab Results 02/19/23 Range/Units 17:10 WBC 7.52 (4.50-11.00) K/uL RBC 3.20 L (4.00-5.20) m/uL Hgb 10.6 L (12.0-16.0) gm/dL Hct 34.0 (33.0-51.0) % MCV 106 H (80-100) fL MCH 33 (26-34) pg MCHC 31 L (32-36) gm/dL RDW Coeff of Navneet 16.3 H (11.5-15.5) % Plt Count 153 (140-440) K/uL Neut % (Auto) 92.6 H (42.0-72.0) % Lymph % (Auto) 5.6 L (20-44) % [place] % (Auto) 1.3 (0.0-11.0) % Eos % (Auto) 0.1 (0.0-7.0) % Baso % (Auto) 0.0 (0.0-3.0) % Neut # (Auto) 7.00 (1.7-7.0) K/uL Lymph # (Auto) 0.40 L (0.90-2.90) K/uL [place] # (Auto) 0.10 (0.00-0.90) K/UL Eos # (Auto) 0.01 (0.00-0.50) K/uL Baso # (Auto) 0.00 (0.00-0.30) K/uL Abs Immat Gran (auto) 0.03 (0.00-0.30) K/uL Imm/Tot Granulo (auto) 0.4 % Sodium 137 (135-149) mmol/L Potassium 4.6 (3.6-5.1) mmol/L Chloride 104 (96-114) mmol/L Carbon Dioxide 28 (20-32) mmol/L Anion Gap 5 L (7-15) mEq/L BUN 36 H (7-30) mg/dL Creatinine 0.9 (0.5-1.5) mg/dL Estimated Creat Clear 40.21 Estimated GFR 67 ml/min Glucose 140 H (60-115) mg/dL Calcium 8.8 (8.4-10.6) mg/dL SARS-CoV-2 (PCR) Negative SARS-CoV-2 (Negative) Influenza Type A (PCR) Negative PCR FLU A (Negative) Influenza Type B (PCR) Negative PCR FLU B (Negative) RSV (PCR) Negative PCR RSV (Negative) Discharge Plan Discharge Clinical Impression: Cough, Bronchiectasis Patient Disposition: Home, Self-Care Condition: Stable Additional Instructions: Unclear whether not there really is a pneumonia or more atelectasis from mucus plugging present in your lungs maybe that left lower lung in particular. Reviewing your last 2 sputum cultures however, it looks like the only ?significant? organism that grew out was Haemophilus influenzae. Thankfully it does not appear that you have a pulmonary effusion today. Will be initiating Augmentin from [facility] (unfortunately this does not appear to be present in [facility] at the moment. Will be sent to your pharmacy after initial dose here) I understand you would prefer not to increase your steroid dosing. Please check in on Wednesday with your senior chemical process engineer and maybe personal vehicle advisor. Sputum cultures will be pending here. These will likely be sent to [facility] for development. Otherwise for cough might consider sucking on ice chips, sleeping under the mist of a cool mist humidifier, menthol vapors, anesthetic throat sprays or lozenges like Chloraseptic or Sucrets. This is of course provided that there is more of a throat area irritation that is causing or contributing to your cough. Chronic rhinorrhea can contribute to cough but has you are saying you do not have a sense of throat tickle, unclear if treatment for this would be beneficial. This might include antihistamines like loratadine or fexofenadine, nasal steroid sprays, pseudoephedrine or phenylephrine. Prescriptions: New amoxicillin-pot clavulanate 875-125 mg tablet 1 tab PO BID 8 Days Qty: 16 0RF No Action prednisone 10 mg tablet 10 mg PO QDAY methotrexate sodium 2.5 mg tablet 17.5 mg PO .Every 7 Days Rx Instructions: takes on wednesday nystatin 100,000 unit/gram powder 1 applic topical QDAY Qty: 30 1RF cholecalciferol (vitamin D3) 50 mcg (2,000 unit) capsule 50 mcg PO QDAY multivitamin Tablet 1 tab PO QAM ascorbic acid (vitamin C) 500 mg tablet 1 g PO QDAY metoprolol succinate 25 mg tablet extended release 24 hr 50 mg PO QDAY cefuroxime axetil 500 mg tablet 500 mg PO BID Qty: 14 0RF azithromycin 250 mg tablet See Rx Instructions PO .COMPLEX Qty: 6 0RF Rx Instructions: For 250 mg dose pack: take 500 mg today (day 1), then 250 mg for 4 days (days 2-5) PO albuterol sulfate 2.5 mg /3 mL (0.083 %) solution for nebulization 2.5 mg inhalation BID folic acid 1 mg tablet 3 mg PO DAILY Lactobacillus acidophilus 0.5 mg (100 million cell) tablet 1,000 mmu cells PO DAILY ferrous gluconate 324 mg (37.5 mg iron) tablet 324 mg PO QDAY Qty: 100 3RF Eliquis 5 mg tablet 2.5 mg PO BID Qty: 90 3RF rosuvastatin 5 mg tablet See Rx Instructions .ROUTE .COMPLEX Qty: 90 3RF Dose Instruction: TAKE 1 TABLET BY MOUTH DAILY Rx Instructions: TAKE 1 TABLET BY MOUTH DAILY valganciclovir 450 mg tablet See Rx Instructions .ROUTE .COMPLEX Qty: 90 3RF Dose Instruction: TAKE 1 TABLET BY MOUTH DAILY Rx Instructions: TAKE 1 TABLET BY MOUTH DAILY furosemide 20 mg tablet 20 mg PO DAILY Qty: 90 0RF mometasone-formoterol 100-5 mcg/actuation HFA aerosol inhaler 2 puff inhalation BID sodium chloride 3 % solution for nebulization 4 ml inhalation .COMPLEX Rx Instructions: use twice a day with albuterol nebs hydrocodone-acetaminophen 5-325 mg tablet 1 tab PO Q6H PRN (Reason: pain) Qty: 40 0RF metoprolol succinate 25 mg tablet extended release 24 hr 25 mg PO BID Qty: 180 3RF Follow Up/Referrals: Kyle Healy MD [Primary Care Provider] - Stand Alone Forms: [employer] Info Instructions
[2023-02-19 17:41] LABS: Chloride* 104 mmol/L (96-114); Potassium* 4.6 mmol/L (3.6-5.1); Sodium* 137 mmol/L (135-149)
[2023-02-19 17:44] LABS: Anion Gap 5 mEq/L (7-15); Blood Urea Nitrogen* 36 mg/dL (7-30); Carbon Dioxide* 28 mmol/L (20-32); Creatinine* 0.9 mg/dL (0.5-1.5); Est. Creatinine Clearance* 40.21; Estimated Glomerular Filt Rate 67 ml/min
[2023-02-19 17:45] LABS: Calcium* 8.8 mg/dL (8.4-10.6); Glucose* 140 mg/dL (60-115)
[2023-02-19 18:02] LABS: PCR FLU A Negative PCR FLU A (Negative); PCR FLU B Negative PCR FLU B (Negative); PCR RSV Negative PCR RSV (Negative); SARS PCR* Negative SARS-CoV-2 (Negative)
[2023-02-19 19:20] VITALS: BP 118/69; PULSE 98; RESP 16; TEMP 36.4; O2SAT 95
[2023-02-19] MEDS: AMOXICILLIN/CLAVULANATE 875 mg/125 mg TABLET PO (20:01)
== END 2023-02-19 20:20 | disposition home or self-care (01) ==
PROVIDERS: Family Medicine; Emergency Provider Family Medicine; PCP Family Medicine
DX: J47.9 Bronchiectasis, uncomplicated (principal)
CPT/HCPCS: 36415; 71046; 80048; 82040; 84134; 85025; 86140; 87070; 87631; 94640; 99284; A9270

== ENCOUNTER 2023-02-26 13:53 | Outpatient (CLI) | payer MEDICARE, OTHER, SELFPAY | END 2023-02-26 13:54 | disposition home or self-care (01) | LOC: WOUND 13:54 | PROVIDERS: PCP Family Medicine; Visit Provider Nurse Practitioner Family | DX: L89.893 Pressure ulcer of other site, stage 3 (principal); L98.8 Other specified disorders of the skin and subcutaneous tissue; L24.A9 Irritant contact dermatitis due friction or contact with other specified body fluids; E46 Unspecified protein-calorie malnutrition; Z68.27 Body mass index [BMI] 27.0-27.9, adult | CPT/HCPCS: 11042; 99212 ==

== ENCOUNTER 2023-03-05 13:24 | Outpatient (CLI) | payer MEDICARE, OTHER, SELFPAY ==
--- OUTSIDE RECORDS SUMMARY | 2023-03-05 13:26 | XMS_ITS | Continuity of Care Document ---
Author Name Unknown Organization [facility] Address [address] [address] [place] [address] Phone Care Team Providers Care Hat Body Inspector Name Role Phone Tosha West Unavailable Unavailable [...] Compl [facility], [address] [address], [place], [place], [id number], [place] tel:[phone] [facility] No Information 9 Stephen Givens. [address], [id number], [place]. tel:[phone] [facility] Hosp-[facility] E&m Minr Compl [facility], [address] [address], [place], [place], [id number], [place] tel:[phone] [facility] No Information 9 No Information Init Inpt Cons New/est Mod-hi [facility], [address] [address], [place], [place], [id number], tel:[phone] [facility] No Information 9 Christine Kraft. [address] [facility] [address], [place], [place], [id number], [place]. tel:[phone] Family History Family Member Type Diagnosis Age At Onset No Information Payers Payer name Insurance type Covered alliance party ID Authoriza tion(s) No Information Social [...]
--- OUTSIDE RECORDS SUMMARY | 2023-03-05 13:27 | XMS_ITS | Continuity of Care Document ---
Author Name Unknown Organization [facility] Address [address] [place] [address] Phone Care Team Providers Care Steel Inspector Name Role Phone Unavailable Unavailable Unavailable Advance Directives Directive Yes / No Effective Date File Name No Information Encounters Encounter Description Practice Location Reason(s) For Visit Diagnoses Date Provider Providers Copied on Encounter Z [facility], [address], [place], [address], [place] tel:[phone] [facility] No Information [phone] No Information Family History Family Member Type Diagnosis Age At Onset No Information Payers Payer name Insurance type Covered libertarian ID Authoriza tion(s) No Information Social History [...]
--- OUTSIDE RECORDS SUMMARY | 2023-03-05 13:27 | XMS_ITS | Continuity of Care Document ---
Author Name Unknown Organization [facility] Address [address] [place] [address] Phone Care Team Providers Care Marketing Programs Specialist Name Role Phone Ritchie Mclaughlin MD Unavailable Unavailable Allergies, Adverse Reactions, Alerts Substance Reaction Status Criticality levofloxacin Active No Information NSAIDS (Non-Steroidal Anti-Inflammatory Drug) Active No Information Medications Medication Instructions Dosage Effective Dates (start - stop) Status Comments furosemide 40 mg tablet take 1 by Oral route 2 times every day 1 - Active potassium chloride ER 20 mEq tablet,extended release(part/cryst) take 1 tablet by oral route every day with food 20 MEQ - Active prednisone 1 mg tablet take 2 tablet by ORAL route every day 2 MG - Active folic acid 1 mg tablet take 1 tablet by ORAL route every day 1 MG - Active methotrexate sodium 2.5 mg tablet take 2 by Oral route every week 2 - Active omeprazole 20 mg capsule,delayed release take 1 capsule by ORAL route 2 times every day before a meal 20 MG - Active [place] 5 mg-325 mg tablet take 1 - 2 Tablet by ORAL route every 6 hours as needed for pain 1-2 Tablet - Active atenolol 25 mg tablet take 1 tablet by ORAL route every day 25 MG - Active alendronate 70 mg tablet take 1 tablet by oral route every week in the morning, at least 30 min before first food, beverage, or medication of day 70 MG - Active nystatin 100,000 unit/mL oral suspension take 5 milliliter by oral route 4 times every day [id number] UNITS - Active duloxetine 30 mg capsule,delayed release 1 cap PO qd for 2 weeks then may increase to 2 caps PO qd - Active Procedures Procedure Date OFFICE/OUTPATIENT VISIT, [facility] Advance Directives Directive Yes / No Effective Date File Name No Information Encounters Encounter Description Practice Location Reason(s) For Visit Diagnoses Date Provider Providers Copied on Encounter [facility], [address] [address], [place], [place], [id number], tel:[phone] [facility] No Information 3 Lissette Dugan. [address] [facility] [address], [place], [place], [id number] . tel: [phone] OFFICE/OUTPA TIENT VISIT, [facility], [address] [address], [place], [place], [id number], tel:[phone] [facility] Musculoskelet al Pain (chief complaint) Rheumatoid arthritis, unspecifiedFi bromyalgia 8 Yves Allen. [address] [address], [place], [place], [id number] , [place]. tel: [phone] Referring Provider: Alejandro Marinelli MD, [address] [address], [place], [address] . tel:[phone] Family History Family Member Type Diagnosis Age At Onset Mother Problem (finding) Alive and well Father Problem (finding) prostate cancer (Cause Of ) Mother Problem (finding) malignant neop lasm of breast in first degree relative Payers Payer name Insurance type Covered green party ID Authoriza tion(s) [place] MB [id number] [employer] [employer] Supplemental CI [id number] Social History Type Description Quantity Date Captured Comments Sex Female Smoking Status No Information Chief Complaint And Reason For Visit No Information Reason For Referral Reason For Referral No Information History Of Present Illness Encounter Date Complaint History Of Prese nt Illness Musculoskeletal Pain 72 yr old f emale patient is here today as a new patient referred by Dr. Edmar Schultz for Rheumatoid Arthritis I have reviewed records from Dr. Schultz which revealed: DOS:08/25/17 Patient went in for a follow up for Rheumatoid Arthritis. Patient reported fatigue, joint swelling and weakness. Patient has had a hx of Psoriatic Arthritis and Rheumatoid Arthritis and is here today to establish care. Pt states she has had a hx of Psoriatic Arthritis since 20+ years. Patient was then diagnosed with Rheumatoid about 15 years ago. States she comes to [place] every 9 years and would like to establish care with our office today. Patient states she had established care with her Dry Primer Powder Blender back in [place] Dr. Henley and patient has brought some medical records with her. Patient complains of bilateral ankles, feet, left knee , lower back , bilateral shoulders, hands and wrists. Patient states her pain varies from day to day recently. States the last couple of months her pain has increased and progressed. Patinet has noticed some constant swelling in bilateral hands and left knee. Patient describes her overall joint pain as achy, throbbing and shooting pains with certain movements. States her pain is constant. Patient is allergic to NSAIDS and is unable to take any over the counter medications for her pain. States she takes Saddle Brook prescribed by her previous Dry Primer Powder Blender Dr. Henley and states this takes the edge off but phillips not get full relief.Patient states she has tried Indocin 60mg but had a GI bleed due to taking this. States from [id number] she tried Humira and states she could not afford it due to being on Medicare. States she also tried Orencia , Rituxan and Acetemra infusions in the past and states this was ineffective. States she is currently taking Remicade infusions and states she has them every 2 months in [facility]. States the Remicade has been increased twice sine starting this due to it being ineffective. Pt is currently taking Alendronate 70mg, FA, [place] 5-325mg PRN, Prednisone 2mg QD, MTX 5mg QWKPrior Rheumatology in [place] Dr. Swapnil Henley. Patient has records with her today. No recent x-raysLabs were ordered at her visit on 08/25/17. Labs have been requested. Denies fever, chills, headache, chest pain, shortness of breath, nausea, or vomiting. Functional Status Date Functional Assessmen t No Information Instructions Date Instruction Additional Infor mation No Information Assessments Type Assessment Date No Information Patient Care Teams Name Effective Dates (start - stop) Status Members No Information
--- NOTE | 2023-03-05 15:00 | CRLHL7_ITS ---
For Patients: As a result of the Century Cures Act, medical imaging exams and procedure reports are released immediately into your electronic medical record. You may view this report before your referring provider. If you have questions, please contact your health care provider. Indication: NONHEALING ULCER MIDLINE ABD - AREA OF INCISION FROM LEFT SIDED NEPHRECTOMY Technique: Grayscale and color Doppler ultrasound of the abdominal wall performed. Comparison: None Findings: Hypoechoic tissue extends from the skin wound deep to the abdominal wall fascia. No hernia. No drainable fluid collection. No abnormal vascularity. Impression: Hypoechoic phlegmonous tissue extending from the skin surface at the site of the open skin wound extending to the intact abdominal wall fascia. Dictated by José Miguel Mckeon MD @ 03/05/2023 2:26:05 PM (Electronically Signed)
== END 2023-03-05 13:25 | disposition home or self-care (01) ==
LOC: WOUND 13:24
PROVIDERS: PCP Family Medicine; Visit Provider Nurse Practitioner Family
DX: L89.893 Pressure ulcer of other site, stage 3 (principal); L24.A9 Irritant contact dermatitis due friction or contact with other specified body fluids
CPT/HCPCS: 11042; 76705

== ENCOUNTER 2023-03-12 13:16 | Outpatient (CLI) | payer MEDICARE, OTHER, SELFPAY ==
--- OUTSIDE RECORDS SUMMARY | 2023-03-12 13:19 | XMS_ITS | Continuity of Care Document ---
Author Name Unknown Organization [facility] Address [address] [facility] [address] [place] [address] Phone Care Team Providers Care Financial Center Manager Name Role Phone Ritchie Mclaughlin MD Unavailable [...] before a meal 20 MG - Active Dalton 5 mg-325 mg tablet take 1 - [...] by oral route 4 times every day 510071 UNITS - Active duloxetine 30 mg capsule,delayed release 1 cap PO qd for 2 weeks then may increase to 2 caps PO qd - Active Procedures Procedure Date OFFICE/OUTPATIENT VISIT, [facility] Advance Directives Directive Yes / No Effective Date File Name No Information Encounters Encounter Description Practice Location Reason(s) For Visit Diagnoses Date Provider Providers Copied on Encounter [facility], [address] [address], [place], [place], [id number], tel:[phone] [facility] No Information 3 Lissette Dugan. [address] [facility] [address], [place], [place], [id number] . tel: [phone] OFFICE/OUTPA TIENT VISIT, [facility], [address] [address], [place], [place], [id number], tel:[phone] [facility] Musculoskelet al Pain (chief complaint) Rheumatoid arthritis, unspecifiedFi bromyalgia 8 Yves Allen. [address] [facility], [address] [address], [place], [place], [id number] , [place]. tel: [phone] Referring Provider: Alejandro Marinelli MD, [address] [address], [place], [address] . tel:[phone] Family History Family Member Type Diagnosis Age At Onset Mother Problem (finding) Alive and well Father Problem (finding) prostate cancer (Cause Of ) Mother Problem (finding) malignant neop lasm of breast in first degree relative Payers Payer name Insurance type Covered constitution party ID Authoriza tion(s) [place] Medicare QBI MB [id number] [place] Supplemental CI [id number] Social History Type Description Quantity Date Captured [...] 15 years ago. States she comes to [place] every 9 years and would like to establish care with our office today. Patient states she had established care with her Microfilm Machine Operator back in [place] Dr. Henley and patient has brought some [...] medications for her pain. States she takes Dalton prescribed by her previous Microfilm Machine Operator Dr. Henley and states this takes the edge off but phillips not get full relief.Patient states she has tried Indocin 60mg but had a GI bleed due to taking this. States from 2316-4940 she tried Humira and states she could not afford it due to being on Medicare. States she also tried Orencia , Rituxan and Acetemra infusions in the past and states this was ineffective. States she is currently taking Remicade infusions and states she has them every 2 months in [facility]. States the Remicade has been increased twice sine starting this due to it being ineffective. Pt is currently taking Alendronate 70mg, FA, Dalton 5-325mg PRN, Prednisone 2mg QD, MTX 5mg QWKPrior Rheumatology in [place] Dr. Swapnil Henley. Patient has records with [...]
--- OUTSIDE RECORDS SUMMARY | 2023-03-12 13:19 | XMS_ITS | Continuity of Care Document ---
Author Name Unknown Organization Z [facility] Address [address] [place] [address] Phone Care Team Providers Care Virtual Assistant Name Role Phone Unavailable Unavailable Unavailable Advance Directives Directive Yes / No Effective Date File Name No Information Encounters Encounter Description Practice Location Reason(s) For Visit Diagnoses Date Provider Providers Copied on Encounter Z [facility], [address], [place], [address], [place] tel:[phone] [facility] No Information [phone] No Information [...]
== END 2023-03-12 13:17 | disposition home or self-care (01) ==
LOC: WOUND 13:16
PROVIDERS: PCP Family Medicine; Visit Provider Nurse Practitioner Family
DX: L89.894 Pressure ulcer of other site, stage 4 (principal); L24.A9 Irritant contact dermatitis due friction or contact with other specified body fluids
CPT/HCPCS: 11043

== ENCOUNTER 2023-03-19 13:22 | Outpatient (CLI) | payer MEDICARE, OTHER, SELFPAY ==
--- OUTSIDE RECORDS SUMMARY | 2023-03-19 13:24 | XMS_ITS | Continuity of Care Document ---
Author Name Unknown Organization Z [facility] [place] Address [address] [place] [address] Phone Care Team Providers Care Chain Sales Representative Name Role Phone Unavailable Unavailable Unavailable Advance Directives Directive Yes / No Effective Date File Name No Information Encounters Encounter Description Practice Location Reason(s) For Visit Diagnoses Date Provider Providers Copied on Encounter Z [facility], [address], [place], [address], [place] tel:[phone] [facility] No Information [phone] [...]
--- OUTSIDE RECORDS SUMMARY | 2023-03-19 13:25 | XMS_ITS | Continuity of Care Document ---
Author Name Unknown Organization [facility] Address [address] [facility] [address] [place] [address] Phone Care Team Providers Care Ophthalmic Medical Technician Name Role Phone Ritchie Mclaughlin MD Unavailable [...] before a meal 20 MG - Active Helena 5 mg-325 mg tablet take 1 - [...] by oral route 4 times every day 331239 UNITS - Active duloxetine 30 mg capsule,delayed release 1 cap PO qd for 2 weeks then may increase to 2 caps PO qd - Active Procedures Procedure Date OFFICE/OUTPATIENT VISIT, [facility] Advance Directives Directive Yes / No Effective Date File Name No Information Encounters Encounter Description Practice Location Reason(s) For Visit Diagnoses Date Provider Providers Copied on Encounter [facility], [address] [address], [place], [place], [id number], tel:[phone] [facility] No Information 3 Lissette Dugan. [address] [facility] [address], [place], [place], [id number] . tel: [phone] OFFICE/OUTPA TIENT VISIT, [facility], [address] [address], [place], [place], [id number], tel:[phone] [facility] Musculoskelet al Pain (chief complaint) Rheumatoid arthritis, unspecifiedFi bromyalgia 8 Yves Allen. [address] [facility], [address] [address], [place], [place], [id number] , [place]. tel: [phone] Referring Provider: Alejandro Marinelli MD, [address] [address], [place], [address] . tel:[phone] Family History Family Member Type Diagnosis Age At Onset Mother Problem (finding) Alive and well Father Problem (finding) prostate cancer (Cause Of ) Mother Problem (finding) malignant neop lasm of breast in first degree relative Payers Payer name Insurance type Covered libertarian ID Authoriza tion(s) [place] Medicare QBI MB [id number] [place] [employer] [place] Supplemental CI [id number] Social History Type Description Quantity Date Captured [...] 15 years ago. States she comes to [place] every 9 years and would like to establish care with our office today. Patient states she had established care with her Waste Oil Pumper back in [place] Dr. Henley and patient has brought some [...] medications for her pain. States she takes Helena prescribed by her previous Waste Oil Pumper Dr. Henley and states this takes the edge off but phillips not get full relief.Patient states she has tried Indocin 60mg but had a GI bleed due to taking this. States from 8155-7311 she tried Humira and states she could not afford it due to being on Medicare. States she also tried Orencia , Rituxan and Acetemra infusions in the past and states this was ineffective. States she is currently taking Remicade infusions and states she has them every 2 months in [facility]. States the Remicade has been increased twice sine starting this due to it being ineffective. Pt is currently taking Alendronate 70mg, FA, Helena 5-325mg PRN, Prednisone 2mg QD, MTX 5mg QWKPrior Rheumatology in [place] Dr. Swapnil Henley. Patient has records with [...]
== END 2023-03-19 13:23 | disposition home or self-care (01) ==
PROVIDERS: PCP Family Medicine; Visit Provider Nurse Practitioner Family
DX: L89.894 Pressure ulcer of other site, stage 4 (principal); L98.8 Other specified disorders of the skin and subcutaneous tissue; L24.A9 Irritant contact dermatitis due friction or contact with other specified body fluids
CPT/HCPCS: 11042

== ENCOUNTER 2023-03-26 13:21 | Outpatient (CLI) | payer MEDICARE, OTHER, SELFPAY | END 2023-03-26 13:22 | disposition home or self-care (01) | LOC: WOUND 13:21 | PROVIDERS: PCP Family Medicine; Visit Provider Nurse Practitioner Family | DX: L89.894 Pressure ulcer of other site, stage 4 (principal) | CPT/HCPCS: 15271; Q4158 ==

== ENCOUNTER 2023-04-02 12:36 | Outpatient (CLI) | payer MEDICARE, OTHER, SELFPAY ==
--- OUTSIDE RECORDS SUMMARY | 2023-04-02 12:38 | XMS_ITS | Continuity of Care Document ---
Author Name Unknown Organization [facility] Address [address] [facility] [address] [place] [address] Phone Care Team Providers Care Hand Pleater Name Role Phone Ritchie Mclaughlin MD Unavailable [...] before a meal 20 MG - Active [place] 5 mg-325 mg tablet take 1 - [...] by oral route 4 times every day [id number] UNITS - Active duloxetine 30 mg capsule,delayed release 1 cap PO qd for 2 weeks then may increase to 2 caps PO qd - Active Procedures Procedure Date OFFICE/OUTPATIENT VISIT, [facility] Advance Directives Directive Yes / No Effective Date File Name No Information Encounters Encounter Description Practice Location Reason(s) For Visit Diagnoses Date Provider Providers Copied on Encounter [facility], [address] [address], [place], [place], [id number], tel:[phone] [facility] No Information 3 Lissette Dugan. [address] [facility] [address], [place], [place], [id number] . tel: [phone] OFFICE/OUTPA TIENT VISIT, [facility], [address] [address], [place], [place], [id number], tel:[phone] [facility] Musculoskelet al Pain (chief complaint) Rheumatoid arthritis, unspecifiedFi bromyalgia 8 Yves Allen. [address] [facility] [address], [place], [place], [id number] , [place]. tel: [phone] Referring Provider: Alejandro Marinelli MD, [address] [address], [place], [address] . tel:[phone] Family History Family Member Type Diagnosis Age At Onset Mother Problem (finding) Alive and well Father Problem (finding) prostate cancer (Cause Of ) Mother Problem (finding) malignant neop lasm of breast in first degree relative Payers Payer name Insurance type Covered libertarian ID Authoriza tion(s) [place] Medicare QBI MB [id number] [place] [employer] [place] Supplemental CI [id number] Social History Type Description Quantity Date Captured [...] 15 years ago. States she comes to [place] every 9 years and would like to establish care with our office today. Patient states she had established care with her Chemist Internship back in [place] Dr. Henley and patient has brought some [...] medications for her pain. States she takes [place] prescribed by her previous Chemist Internship Dr. Henley and states this takes the edge off but phillips not get full relief.Patient states she has tried Indocin 60mg but had a GI bleed due to taking this. States from 2943-0798 she tried Humira and states she could not afford it due to being on Medicare. States she also tried Orencia , Rituxan and Acetemra infusions in the past and states this was ineffective. States she is currently taking Remicade infusions and states she has them every 2 months in [facility]. States the Remicade has been increased twice sine starting this due to it being ineffective. Pt is currently taking Alendronate 70mg, FA, [place] 5-325mg PRN, Prednisone 2mg QD, MTX 5mg QWKPrior Rheumatology in [place] Dr. Swapnil Henley. Patient has records with [...]
--- OUTSIDE RECORDS SUMMARY | 2023-04-02 12:38 | XMS_ITS | Continuity of Care Document ---
Author Name Unknown Organization Z [facility] [place] Address [address] [place] [address] Phone Care Team Providers Care Medical Billing Instructor Name Role Phone Unavailable Unavailable Unavailable Advance Directives Directive Yes / No Effective Date File Name No Information Encounters Encounter Description Practice Location Reason(s) For Visit Diagnoses Date Provider Providers Copied on Encounter Z [facility], [address], [place], [address], [place] tel:[phone] [facility] No Information 0 [phone] 7 No Information Family History Family Member [...]
== END 2023-04-02 12:37 | disposition home or self-care (01) ==
LOC: WOUND 12:36
PROVIDERS: PCP Family Medicine; Visit Provider Nurse Practitioner Family
DX: L89.894 Pressure ulcer of other site, stage 4 (principal)
CPT/HCPCS: 15271; Q4158

== ENCOUNTER 2023-04-09 13:22 | Outpatient (CLI) | payer MEDICARE, OTHER, SELFPAY ==
--- OUTSIDE RECORDS SUMMARY | 2023-04-09 13:24 | XMS_ITS | Continuity of Care Document ---
Author Name Unknown Organization Z [facility] [place] Address [address] [place] [address] Phone Care Team Providers Care Personalized Living Manager Nurse Name Role Phone Unavailable Unavailable Unavailable Advance Directives Directive Yes / No Effective Date File Name No Information Encounters Encounter Description Practice Location Reason(s) For Visit Diagnoses Date Provider Providers Copied on Encounter Z [facility], [address], [place], [address], [place] tel:[phone] [facility] No Information 0 [phone] 7 No Information [...]
--- OUTSIDE RECORDS SUMMARY | 2023-04-09 13:24 | XMS_ITS | Continuity of Care Document ---
Author Name Unknown Organization [facility] Address [address] [facility] [address] [place] [address] Phone Care Team Providers Care Access Tech Name Role Phone Ritchie Mclaughlin MD Unavailable [...] day with food 20 MEQ - Active duloxetine 30 mg capsule,delayed release 1 cap PO qd for 2 weeks then may increase to 2 caps PO qd - Active nystatin 100,000 unit/mL oral suspension take 5 milliliter by oral route 4 times every day [id number] UNITS - Active alendronate 70 mg tablet take 1 tablet by oral route every week in the morning, at least 30 min before first food, beverage, or medication of day 70 MG - Active atenolol 25 mg tablet take 1 tablet by ORAL route every day 25 MG - Active Wilson 5 mg-325 mg tablet take 1 - 2 Tablet by ORAL route every 6 hours as needed for pain 1-2 Tablet - Active omeprazole 20 mg capsule,delayed release take 1 capsule by ORAL route 2 times every day before a meal 20 MG - Active methotrexate sodium 2.5 mg tablet take 2 by Oral route every week 2 - Active folic acid 1 mg tablet take 1 tablet by ORAL route every day 1 MG - Active prednisone 1 mg tablet take 2 tablet by ORAL route every day 2 MG - Active Procedures Procedure Date OFFICE/OUTPATIENT VISIT, [facility] Advance Directives Directive Yes / No Effective Date File Name No Information Encounters Encounter Description Practice Location Reason(s) For Visit Diagnoses Date Provider Providers Copied on Encounter [facility], [address], [id number], tel:[phone] [facility] No Information 3 Lissette Dugan. [address] [facility], [address] [address], [place], [place], [id number] . tel: [phone] OFFICE/OUTPA TIENT VISIT, [facility], [address] [facility] [address], [place], [place], [id number], tel:[phone] [facility] Musculoskelet al Pain (chief complaint) Rheumatoid arthritis, unspecifiedFi bromyalgia 8 Yves Allen. [address] [facility], [address] [address], [place], [place], [id number] , [place]. tel: [phone] Referring Provider: Alejandro Marinelli MD, [address] [address], [place], [address] . tel:[phone] Family History Family Member Type Diagnosis Age At Onset Mother Problem (finding) Alive and well Father Problem (finding) prostate cancer (Cause Of ) Mother Problem (finding) malignant neop lasm of breast in first degree relative Payers Payer name Insurance type Covered green party ID Authoriza tion(s) Ri Medicare QBI MB [id number] [place] [employer] [place] Supplemental CI [id number] Social History Type Description Quantity Date Captured [...] 15 years ago. States she comes to [place] every 9 years and would like to establish care with our office today. Patient states she had established care with her Print Room Worker back in [place] Dr. Henley and patient has brought [...] medications for her pain. States she takes Wilson prescribed by her previous Print Room Worker Dr. Henley and states this takes the edge off but phillips not get full relief.Patient states she has tried Indocin 60mg but had a GI bleed due to taking this. States from 8172-5735 she tried Humira and states she could not afford it due to being on Medicare. States she also tried Orencia , Rituxan and Acetemra infusions in the past and states this was ineffective. States she is currently taking Remicade infusions and states she has them every 2 months in [facility]. States the Remicade has been increased twice sine starting this due to it being ineffective. Pt is currently taking Alendronate 70mg, FA, Wilson 5-325mg PRN, Prednisone 2mg QD, MTX 5mg QWKPrior Rheumatology in [place] Dr. Swapnil Henley. Patient has records [...]
== END 2023-04-09 13:23 | disposition home or self-care (01) ==
LOC: WOUND 13:22
PROVIDERS: PCP Family Medicine; Visit Provider Nurse Practitioner Family
DX: L89.894 Pressure ulcer of other site, stage 4 (principal)
CPT/HCPCS: 15271; Q4158

== ENCOUNTER 2023-04-16 12:51 | Outpatient (CLI) | payer MEDICARE, OTHER, SELFPAY | END 2023-04-16 12:52 | disposition home or self-care (01) | LOC: WOUND 12:51 | PROVIDERS: PCP Family Medicine; Visit Provider Nurse Practitioner Family | DX: L89.894 Pressure ulcer of other site, stage 4 (principal) | CPT/HCPCS: 15271; Q4158 ==

== ENCOUNTER 2023-04-23 13:23 | Outpatient (CLI) | payer MEDICARE, OTHER, SELFPAY | END 2023-04-23 13:24 | disposition home or self-care (01) | LOC: WOUND 13:23 | PROVIDERS: PCP Family Medicine; Visit Provider Nurse Practitioner Family | DX: L89.894 Pressure ulcer of other site, stage 4 (principal); E46 Unspecified protein-calorie malnutrition; Z68.27 Body mass index [BMI] 27.0-27.9, adult | CPT/HCPCS: 15271; Q4158 ==

== ENCOUNTER 2023-04-26 11:13 | Outpatient (CLI) | payer MEDICARE, OTHER, SELFPAY | END 2023-04-26 11:14 | disposition home or self-care (01) | LOC: AMB 04-28 11:45 | PROVIDERS: PCP Family Medicine; Visit Provider Family Medicine | DX: R53.1 Weakness (principal) | CPT/HCPCS: A0425; A0427 ==

== ENCOUNTER 2023-04-26 11:48 | Inpatient (IN) | payer MEDICARE, OTHER, SELFPAY ==
[2023-04-26] VITALS (25 sets, daily range): BP systolic 76–130; BP diastolic 40–78; PULSE 66–101; RESP 16–18; TEMP 36.4–38; O2SAT 94–100; BMI 28.1
--- NOTE | 2023-04-26 12:13 | CRLHL7_ITS ---
For Patients: As a result of the Century Cures Act, medical imaging exams and procedure reports are released immediately into your electronic medical record. You may view this report before your referring provider. If you have questions, please contact your health care provider. Indication: Cough Comparison: None available. Technique: Single AP view chest Findings: There is hyperinflation and chronic interstitial change. There is minimal blunting of left costophrenic angle likely representing a pleural effusion with adjacent compressive atelectasis and/or infiltrates. The cardiac silhouette is mildly prominent. The bony thorax is grossly intact. Impression: Minimal blunting of left costophrenic angle likely representing pleural effusion with adjacent compressive atelectasis and/or infiltrate. Dictated by Ugo Carlisle MD @ 04/26/2023 3:14:22 PM (Electronically Signed)
--- NOTE | 2023-04-26 12:15 | ED_ITS ---
HPI - Weakness General Chief complaint: Weakness Stated complaint: Tired, cough Time Seen by Provider: 04/26/23 12:05 History of Present Illness HPI Narrative: This 77-year-old female comes in with her daughter. She reports weakness such that she felt that she could not get out of bed. She is incontinent of urine and states that she voided in the bed could she was too weak to get up. She arrives here with borderline tachycardia and a temperature to 100.4? F. She lives alone at home. She does exhibit some confusion also with these symptoms. She does have a chronic cough but this is not worse. She does not report any shortness of breath. She does have a history of urinary tract infections. Related Data Home Medications Medication Instructions Recorded Confirmed Lactobacillus acidophilus 0.5 mg 1,000 mmu cells PO DAILY 12/22/21 03/22/23 (100 million cell) tablet albuterol sulfate 2.5 mg/3 mL 2.5 mg inhalation BID 12/22/21 03/22/23 (0.083 %) solution for nebulization folic acid 1 mg tablet 3 mg PO DAILY 12/22/21 03/22/23 ascorbic acid (vitamin C) 500 mg 1 g PO QDAY 01/16/22 03/22/23 tablet cholecalciferol (vitamin D3) 50 50 mcg PO QDAY 01/16/22 03/22/23 mcg (2,000 unit) capsule multivitamin 1 tab PO QAM 01/16/22 03/22/23 methotrexate sodium 2.5 mg tablet 17.5 mg PO .Every 7 Days 03/10/22 03/22/23 prednisone 10 mg tablet 10 mg PO QDAY 03/10/22 03/22/23 mometasone-formoterol HFA 100 2 puff inhalation BID 02/02/23 03/22/23 mcg-5 mcg/actuation aerosol inhaler sodium chloride 3 % for 4 ml inhalation .COMPLEX 02/02/23 03/22/23 nebulization Previous Rx's Medication Instructions Recorded ferrous gluconate 324 mg (37.5 mg 324 mg PO QDAY #100 tabs 02/26/22 iron) tablet rosuvastatin 5 mg tablet See Rx Instructions .Route 07/09/22 .COMPLEX #90 tabs nystatin 100,000 unit/gram topical 1 applic topical QDAY #30 grams 11/05/22 powder furosemide 20 mg tablet 20 mg PO DAILY #90 tabs 12/17/22 metoprolol succinate 25 mg 25 mg PO BID #180 tabs 02/16/23 tablet,extended release 24 hr valganciclovir 450 mg tablet See Rx Instructions .Route 02/24/23 .COMPLEX #90 tabs paroxetine HCl 20 mg tablet 20 mg PO QDAY #30 tabs 03/22/23 apixaban 5 mg tablet (Eliquis) 2.5 mg (1/2 x 5 mg) PO BID #90 tabs 03/23/23 hydrocodone 5 mg-acetaminophen 325 1 tab PO Q6H PRN pain #40 tabs 04/12/23 mg tablet Allergies Allergy/AdvReac Type Severity Reaction Status Date / Time NSAIDS (Non-Steroidal Allergy Severe GI bleed Verified 03/22/23 12:56 Anti-Inflamma terbinafine Allergy Intermediate Headache Verified 03/22/23 12:56 levofloxacin AdvReac Severe tendon Verified 03/22/23 12:56 rupture Review of Systems Status of ROS: Reports: 10 or more systems reviewed and unremarkable except as noted in History and below Narrative: Constitutional: No weight gain or loss. Eyes: No discharge. No vision changes. HENT: No congestion, no sore throat, no ear pain. Cardiovascular: No chest pain, no palpitations. Respiratory: No shortness of breath, no wheezes. Chronic occasional cough. Gastrointestinal: No abdominal pain, no vomiting, no diarrhea. Genitourinary: Incontinent of urine. Musculoskeletal: Normal range of motion. Skin: No rashes, no pruritis. Neurological: No dizziness, sensory change, speech change. She reports generalized weakness. No unilateral weakness. Endo/Heme/Allergies: No bruising or bleeding. No polydipsia. Pysch: no suicidality, no anxiety, no insomnia. All other systems reviewed and are negative. 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 - Rheumatic mitral valve disease, unspecified (ICD-10) Abnormal LFTs (liver function tests) ?R79.89 - Other specified abnormal findings of blood chemistry (ICD-10) Surgical History S/P cataract extraction ?Z98.49 - Cataract extraction status, unspecified eye (ICD-10) S/P cholecystectomy ?Z90.49 - Acquired absence of other specified parts of digestive tract (ICD- 10) History of left nephrectomy ?Z90.5 - Acquired absence of kidney (ICD-10) History of lumbar fusion (04/2010) ?Z98.1 - Arthrodesis status (ICD-10) History of lithotripsy ?Z98.890 - Other specified postprocedural states (ICD-10) Family History Mother Breast cancer, Onset Age: 70 Sister Breast cancer, Onset Age: 35 Social History What is your current living situation?: I presently have a place to live Problems where you live: no known problems In the past 12 months, utilities in danger of being shut off: no In past 12 months, lack of transportation kept you from medical appts, meetings, work, or getting things needed for daily living: no In the past 12 mos, have been you worried that your food would run out before you had money to buy more?: never true In the past 12 mos, the food you bought just didn't last and you didn't have money to buy more?: never true Smoking Status: Never smoker How often do you have a drink containing alcohol: monthly or less AUDIT-C Alcohol total score: 1 Non-prescribed substance use: denies use How often does anyone, including family, friends and others, physically hurt you : never How often does anyone, including family, friends and others, insult or talk down to you: never How often does anyone, including family, friends and others, threaten you with harm: never How often does anyone, including family, friends and others, scream or curse at you: never Little interest or pleasure in doing things: more than half the days Feeling down, depressed, or hopeless: more than half the days service: No Exam Narrative: Exam Narrative: Constitutional: Well-developed, well-nourished, no acute distress. HEENT: Normocephalic, atraumatic. Neck: Normal range of motion. Nontender. Supple. Heart: Regular. No murmurs. Normal rate. Intact distal pulses. Lungs: Clear to auscultation. No chest discomfort. No wheezes, rhonchi, or rales. Abdomen: Normal bowel sounds. Nontender. No rebound tenderness. Genitalia: Deferred. Back: No midline tenderness. Normal range of motion. Extremities: Normal range of motion. No injury. Skin: Intact. No rash. Warm. No erythema or pallor. Neurologic: No altered sensation. Generalized weakness. Alert and oriented. She does appear to have some confusion with difficulty answering questions at times. Psychiatric: No suicidality. No anxiety or depression. No insomnia. Nursing notes and vitals signs are reviewed. Const: Vital Signs, click to edit/add: Vital Signs - 24 hr 04/26/23 11:56 04/26/23 12:40 04/26/23 13:33 Temperature 100.4 F H 100.4 F H Pulse Rate 89 Pulse Rate [Pulse Oximeter] 101 H Respiratory Rate 16 Blood Pressure 94/49 L Blood Pressure [Ri ght Upper Arm] 130/78 Pulse Oximetry 94 95 Oxygen Delivery Me thod Room Air 04/26/23 13:34 04/26/23 13:45 04/26/23 14:08 Temperature Pulse Rate 87 85 85 Pulse Rate [Pulse Oximeter] Respiratory Rate Blood Pressure Blood Pressure [Ri ght Upper Arm] Pulse Oximetry 94 96 94 Oxygen Delivery Me thod 04/26/23 14:11 04/26/23 14:13 04/26/23 14:15 Temperature Pulse Rate 78 79 77 Pulse Rate [Pulse Oximeter] Respiratory Rate Blood Pressure 81/40 L 84/41 L 88/41 L Blood Pressure [Ri ght Upper Arm] Pulse Oximetry 97 100 98 Oxygen Delivery Me thod 04/26/23 14:16 04/26/23 14:30 04/26/23 14:32 Temperature Pulse Rate 80 75 Pulse Rate [Pulse Oximeter] Respiratory Rate Blood Pressure 83/40 L Blood Pressure [Ri ght Upper Arm] Pulse Oximetry 98 100 Oxygen Delivery Me thod 04/26/23 14:33 04/26/23 14:45 04/26/23 14:46 Temperature 98.1 F Pulse Rate 79 76 Pulse Rate [Pulse Oximeter] Respiratory Rate Blood Pressure Blood Pressure [Ri ght Upper Arm] Pulse Oximetry 97 97 Oxygen Delivery Me thod 04/26/23 14:46 Temperature 98.1 F Pulse Rate Pulse Rate [Pulse Oximeter] Respiratory Rate Blood Pressure Blood Pressure [Ri ght Upper Arm] Pulse Oximetry Oxygen Delivery Me thod Course Vital Signs Vital signs: Initial Vital Signs Temperature 100.4 F H 04/26/23 11:56 Temperature Source Temporal Artery Scan 04/26/23 11:56 Pulse Rate 101 H 04/26/23 11:56 Respiratory Rate 16 04/26/23 11:56 Blood Pressure 130/78 04/26/23 11:56 Blood Pressure Mean 95 04/26/23 11:56 Pulse Oximetry 94 04/26/23 11:56 Oxygen Delivery Method Room Air 04/26/23 11:56 Vital Signs Temperature 100.4 F H 04/26/23 11:56 Pulse Rate 101 H 04/26/23 11:56 Respiratory Rate 16 04/26/23 11:56 Blood Pressure 130/78 04/26/23 11:56 Pulse Oximetry 94 04/26/23 11:56 Oxygen Delivery Method Room Air 04/26/23 11:56 Temperature 98.1 F 04/26/23 14:46 Pulse Rate 76 04/26/23 14:45 Respiratory Rate 16 04/26/23 11:56 Blood Pressure 83/40 L 04/26/23 14:32 Pulse Oximetry 97 04/26/23 14:45 Oxygen Delivery Method Room Air 04/26/23 11:56 MDM - Weakness MDM Narrative Medical decision making narrative: This patient comes in displaying some symptoms of confusion and does arrive with a borderline fever with temperature of 100.4? F. She lives in an independent living facility and normally functions well. Since last night however she reports weakness and has had some confusion. She was incontinent of urine and when nurses changed her to get a urine sample she was full of stool in her pants. An IV was established and labs are acquired. Her lactate level returns in normal range at 1.3. Her blood pressures have been a little low throughout her stay here. She did received 2 L of normal saline intravenously. After blood cultures she received a g of Rocephin as her urine is showing evidence of infection. I did speak with the hospitalist sales professional bilingual, Dr. Rodgers, who agrees to her admission into the hospital for ongoing management and treatment. Lab Data Labs: Lab Results 04/26/23 04/26/23 04/26/23 Range/Units 12:00 12:35 14:08 WBC 3.55 L (4.50-11.00) K/uL RBC 3.38 L (4.00-5.20) m/uL Hgb 10.9 L (12.0-16.0) gm/dL Hct 35.0 (33.0-51.0) % MCV 104 H (80-100) fL MCH 32 (26-34) pg MCHC 31 L (32-36) gm/dL RDW Coeff of Navneet 16.6 H (11.5-15.5) % Plt Count 100 L (140-440) K/uL Neut % (Auto) 75.0 H (42.0-72.0) % Lymph % (Auto) 14.6 L (20-44) % [place] % (Auto) 8.2 (0.0-11.0) % Eos % (Auto) 1.1 (0.0-7.0) % Baso % (Auto) 0.8 (0.0-3.0) % Neut # (Auto) 2.70 (1.7-7.0) K/uL Lymph # (Auto) 0.50 L (0.90-2.90) K/uL [place] # (Auto) 0.30 (0.00-0.90) K/UL Eos # (Auto) 0.00 (0.00-0.50) K/uL Baso # (Auto) 0.00 (0.00-0.30) K/uL Abs Immat Gran (auto) 0.00 (0.00-0.30) K/uL Imm/Tot Granulo (auto) 0.3 % Sodium 134 L (135-149) mmol/L Potassium 3.9 (3.6-5.1) mmol/L Chloride 96 (96-114) mmol/L Carbon Dioxide 27 (20-32) mmol/L Anion Gap 11 (7-15) mEq/L BUN 22 (7-30) mg/dL Creatinine 0.9 (0.5-1.5) mg/dL Estimated GFR 67 ml/min Glucose 95 (60-115) mg/dL Lactate 1.3 (0.5-1.9) mmol/L Calcium 8.4 (8.4-10.6) mg/dL Urine Color Yellow (Yellow) Urine Appearance Cloudy A (Clear) Urine pH 6.5 (5.0-8.5) Ur Specific [place] 1.020 (1.000-1.030) Urine Protein 1+ A (Negative) Urine Glucose (UA) Negative (Negative) Urine Ketones 1+ A (Negative) Urine Blood Trace-intact A (Negative) Urine Nitrite Negative (Negative) Urine Bilirubin Negative (Negative) Urine Urobilinogen 0.2 (0.2-1.0) Ur Leukocyte Esterase 1+ A (Negative) Urine RBC 5-10 A (0-2) Urine WBC 10-25 A (0-5) Ur Squamous Epith Cells Few (None-Few) Urine Bacteria Few A (None) SARS-CoV-2 (PCR) Negative SARS-CoV-2 (Negative) Influenza Type A (PCR) Negative PCR FLU A (Negative) Influenza Type B (PCR) Negative PCR FLU B (Negative) RSV (PCR) Negative PCR RSV (Negative) ECG Data Attestation: I personally reviewed and interpreted this ECG as follows: Interpretation: Normal sinus rhythm. Rate is 89 beats per minute. There are no ST or T-wave abnormalities. Discharge Plan Discharge Clinical Impression: Urinary tract infection Patient Disposition: Admitted As Inpatient Condition: Unchanged Prescriptions: No Action prednisone 10 mg tablet 10 mg PO QDAY methotrexate sodium 2.5 mg tablet 17.5 mg PO .Every 7 Days Rx Instructions: takes on wednesday nystatin 100,000 unit/gram powder 1 applic topical QDAY Qty: 30 1RF paroxetine HCl 20 mg tablet 20 mg PO QDAY Qty: 30 5RF cholecalciferol (vitamin D3) 50 mcg (2,000 unit) capsule 50 mcg PO QDAY multivitamin Tablet 1 tab PO QAM ascorbic acid (vitamin C) 500 mg tablet 1 g PO QDAY albuterol sulfate 2.5 mg /3 mL (0.083 %) solution for nebulization 2.5 mg inhalation BID folic acid 1 mg tablet 3 mg PO DAILY Lactobacillus acidophilus 0.5 mg (100 million cell) tablet 1,000 mmu cells PO DAILY ferrous gluconate 324 mg (37.5 mg iron) tablet 324 mg PO QDAY Qty: 100 3RF rosuvastatin 5 mg tablet See Rx Instructions .ROUTE .COMPLEX Qty: 90 3RF Dose Instruction: TAKE 1 TABLET BY MOUTH DAILY Rx Instructions: TAKE 1 TABLET BY MOUTH DAILY furosemide 20 mg tablet 20 mg PO DAILY Qty: 90 0RF mometasone-formoterol 100-5 mcg/actuation HFA aerosol inhaler 2 puff inhalation BID sodium chloride 3 % solution for nebulization 4 ml inhalation .COMPLEX Rx Instructions: use twice a day with albuterol nebs metoprolol succinate 25 mg tablet extended release 24 hr 25 mg PO BID Qty: 180 3RF valganciclovir 450 mg tablet See Rx Instructions .ROUTE .COMPLEX Qty: 90 3RF Dose Instruction: TAKE 1 TABLET BY MOUTH DAILY Rx Instructions: TAKE 1 TABLET BY MOUTH DAILY Eliquis 5 mg tablet 2.5 mg PO BID Qty: 90 3RF hydrocodone-acetaminophen 5-325 mg tablet 1 tab PO Q6H PRN (Reason: pain) Qty: 40 0RF Follow Up/Referrals: Kyle Healy MD [Primary Care Provider] -
[2023-04-26] MEDS: ACETAMINOPHEN 500 MG TABLET 1000 MG PO (12:40)
[2023-04-26 12:44] LABS: PCR FLU A Negative PCR FLU A (Negative); PCR FLU B Negative PCR FLU B (Negative); PCR RSV Negative PCR RSV (Negative)
[2023-04-26] MEDS: 0.9 % SODIUM CHLORIDE 1000 ml 1,000 ML IV (12:45)
--- NOTE | 2023-04-26 12:45 | ED.NURSE ---
Pt changed out of clothes and into hospital gown. Strong odor of urine and faeces noted. Pt was wearing brief from home that was soaked through with urine and full of stool. Pt cleaned with harjeet wipes and wet washcloths. Once cleaned, area of redness noted around pt's bottom, skin protectant paste applied. Pt reported she did not know when the last time she changed her briefs were. notified of findings.
[2023-04-26 12:46] LABS: SARS PCR* Negative SARS-CoV-2 (Negative)
[2023-04-26 12:49] LABS: Lactate* 1.3 mmol/L (0.5-1.9)
[2023-04-26 12:51] LABS: Basophils Percent Auto 0.8 % (0.0-3.0); Eosinophils Percent Auto 1.1 % (0.0-7.0); Hemoglobin* 10.9 gm/dL (12.0-16.0); Immature Granulocytes Pct Auto 0.3 %; Lymphocytes Percent Auto 14.6 % (20-44); Mean Corpuscular HGB Conc 31 gm/dL (32-36); Mean Corpuscular Hemoglobin 32 pg (26-34); Mean Corpuscular Volume 104 fL (80-100); Monocytes Percent Auto 8.2 % (0.0-11.0); Platelet Count* 100 K/uL (140-440); RDW Coefficient of Variation % 16.6 % (11.5-15.5); Red Blood Count 3.38 m/uL (4.00-5.20); White Blood Count* 3.55 K/uL (4.50-11.00)
[2023-04-26 12:55] LABS: Slide Review Reflex No
[2023-04-26 13:12] LABS: Chloride* 96 mmol/L (96-114); Sodium* 134 mmol/L (135-149)
[2023-04-26 13:13] LABS: Potassium* 3.9 mmol/L (3.6-5.1)
[2023-04-26 13:15] LABS: Creatinine* 0.9 mg/dL (0.5-1.5); Estimated Glomerular Filt Rate 67 ml/min
[2023-04-26 13:16] LABS: Anion Gap 11 mEq/L (7-15); Blood Urea Nitrogen* 22 mg/dL (7-30); Calcium* 8.4 mg/dL (8.4-10.6); Carbon Dioxide* 27 mmol/L (20-32); Glucose* 95 mg/dL (60-115)
--- NOTE | 2023-04-26 14:24 | ED.NURSE ---
Pt is now noticeably more oriented than when she arrived. Pt is A&Ox4. BP noted to be trending lower. notified of these findings. IV in L AC infiltrated, removed. New IV inserted.
[2023-04-26 14:28] LABS: Appearance Urine Cloudy (Clear); Bilirubin Urine Negative (Negative); Blood Urine Trace-intact (Negative); Color Urine Yellow (Yellow); Glucose Urine Negative (Negative); Ketones Urine 1+ (Negative); Leukocyte Esterase Urine 1+ (Negative); Nitrite Urine Negative (Negative); Protein Urine 1+ (Negative); Urobilinogen Urine 0.2 (0.2-1.0); pH Urine 6.5 (5.0-8.5)
[2023-04-26 14:35] LABS: Bacteria Urine Few; Squamous Epithelial Cell Urine Few (None-Few)
--- NOTE | 2023-04-26 15:15 | ED.NURSE ---
MD Perea notified of pt's continued low BP's. Pt BP trending at ~80/40.
[2023-04-26] MEDS: cefTRIAXone 1 GM in 0.9 % SODIUM CHLORIDE Mini-bag 100 ML IVPB (15:16)
--- NOTE | 2023-04-26 15:46 | ED.NURSE ---
Hospitalist notified of pt's continuing trending lower BPs.
[2023-04-26] MEDS: 0.9 % SODIUM CHLORIDE 1000 ml 1,000 ML 500 ML IV (15:50)
--- NOTE | 2023-04-26 16:57 | PM.IMHP1 ---
Hospitalist- H&P: HPI History of Present Illness Date Seen: 04/26/23 Chief complaint: Tired, cough Narrative: Tanner James is a 77 year old female presented to the emergency room this morning with her daughter for primary concern of weakness. Patient lives at the [facility]. Over the past 1-2 days, she has had progressive weakness and was unable to get out of bed this morning. She had a fever at home. Daughter also notices intermittent confusion upon arrival. No chest pain or dyspnea. She has a chronic cough that is unchanged, given history of bronchiectasis. Other symptoms include incontinence (not typical for her), history of UTIs. She did have diarrhea in the emergency room during evaluation. ER course and findings: - pancytopenia (not new) - hypotension, minimal improvement with normal saline bolus - temperature of 100.4? - lactate within normal limits - + WBC on UA, negative nitrite - blunting of left costophrenic angle on chest x-ray likely representing pleural effusion with atelectasis and/or infiltrate - received ceftriaxone after cultures obtained Given patient's immunosuppressed status, fever, and hypotension, she is admitted to the hospital. Confusion has significantly improved upon arrival to the floor. Patient is able to tell me her medications and dosages; she is also able to tell me the names of her specialists. She has no concerns of pain. Review of Systems Status of ROS: Reports: 10 or more systems reviewed and unremarkable except as noted in History and below Narrative: - has an abdominal wound that is being dressed by Home Care on Mondays and Wound Clinic on Fridays, she missed Home Care visit today - known aortic stenosis, follows with cardiology as an outpatient, no syncope - recently moved into the [facility], previously living with her daughter [facility] Medical History Enrolled in chronic care management ?Z78.9 - Other specified health status (ICD-10) History of kidney stones ?Z87.442 - Personal history of urinary calculi (ICD-10) POLST (Physician Orders for Life-Sustaining Treatment) ?Z78.9 - Other specified health status (ICD-10) Mitral annular calcification ?I05.9 - Rheumatic mitral valve disease, unspecified (ICD-10) Abnormal LFTs (liver function tests) ?R79.89 - Other specified abnormal findings of blood chemistry (ICD-10) Surgical History S/P cataract extraction ?Z98.49 - Cataract extraction status, unspecified eye (ICD-10) S/P cholecystectomy ?Z90.49 - Acquired absence of other specified parts of digestive tract (ICD-10) History of left nephrectomy ?Z90.5 - Acquired absence of kidney (ICD-10) History of lumbar fusion (04/2010) ?Z98.1 - Arthrodesis status (ICD-10) History of lithotripsy ?Z98.890 - Other specified postprocedural states (ICD-10) Family History Mother Breast cancer, Onset Age: 70 Sister Breast cancer, Onset Age: 35 Social History What is your current living situation?: I presently have a place to live Problems where you live: no known problems Problems where you live details: none In the past 12 months, utilities in danger of being shut off: no In past 12 months, lack of transportation kept you from medical appts, meetings, work, or getting things needed for daily living: no In the past 12 mos, have been you worried that your food would run out before you had money to buy more?: never true In the past 12 mos, the food you bought just didn't last and you didn't have money to buy more?: never true Smoking Status: Never smoker Second hand tobacco smoke exposure: No How often do you have a drink containing alcohol: never How often do you have six or more drinks on one occasion: Never AUDIT-C Alcohol total score: 0 Non-prescribed substance use: denies use Caffeine: No How often does anyone, including family, friends and others, physically hurt you: never How often does anyone, including family, friends and others, insult or talk down to you: never How often does anyone, including family, friends and others, threaten you with harm: never How often does anyone, including family, friends and others, scream or curse at you: never Little interest or pleasure in doing things: more than half the days Feeling down, depressed, or hopeless: more than half the days service: No Meds Home Medications and Allergies Home Medications Medication Instructions Recorded Confirmed Type Lactobacillus acidophilus 0.5 mg 1,000 mmu cells PO DAILY 12/22/21 04/26/23 History (100 million cell) tablet albuterol sulfate 2.5 mg/3 mL 2.5 mg inhalation Q6H PRN 12/22/21 04/26/23 History (0.083 %) solution for nebulization folic acid 1 mg tablet 3 mg PO DAILY 12/22/21 04/26/23 History ascorbic acid (vitamin C) 500 mg 1 g PO DAILY 01/16/22 04/26/23 History tablet cholecalciferol (vitamin D3) 50 50 mcg PO DAILY 01/16/22 04/26/23 History mcg (2,000 unit) capsule multivitamin 1 tab PO QAM 01/16/22 04/26/23 History methotrexate sodium 2.5 mg tablet 17.5 mg PO .Every 7 Days 03/10/22 04/26/23 History mometasone-formoterol HFA 100 2 puff inhalation BID 02/02/23 04/26/23 History mcg-5 mcg/actuation aerosol inhaler sodium chloride 3 % for 4 ml inhalation .COMPLEX 02/02/23 04/26/23 History nebulization ferrous gluconate 324 mg (37.5 mg 324 mg PO DAILY 04/26/23 04/26/23 History iron) tablet paroxetine HCl 20 mg tablet 20 mg PO DAILY 04/26/23 04/26/23 History prednisone 5 mg tablet 7.5 mg PO DAILY 04/26/23 04/26/23 History Allergies Allergy/AdvReac Type Severity Reaction Status Date / Time NSAIDS (Non-Steroidal Allergy Severe GI bleed Verified 03/22/23 12:56 Anti-Inflamma terbinafine Allergy Intermediate Headache Verified 03/22/23 12:56 levofloxacin AdvReac Severe tendon Verified 03/22/23 12:56 rupture Exam Narrative: Exam Narrative: GEN: Alert and oriented, intermittent coughing paroxysms HEENT: Normal external ears, EOMIs bilaterally, no scleral icterus CV: RRR, blowing systolic murmur heard across precordium R: Coarse lung sounds throughout, no wheezing Ab: Soft and nontender, abdominal wound is covered and patient defers formal exam as she requires specific dressing changes with wound care team. No surrounding erythema or crepitus Ext: wwp, no concerning edema Skin: No concerning skin lesions or rashes on exposed skin Neuro: Nonfocal Psych: Appropriate, no concern for gross cognitive impairment Const: Vital Signs, click to edit/add: Vital Signs - 24 hr 04/26/23 11:56 04/26/23 12:40 04/26/23 13:33 Temperature 100.4 F H 100.4 F H Pulse Rate 89 Pulse Rate [Pulse Oximeter] 101 H Respiratory Rate 16 Blood Pressure 94/49 L Blood Pressure [Ri ght Arm] Blood Pressure [Ri ght Upper Arm] 130/78 Pulse Oximetry 94 95 Oxygen Delivery Me thod Room Air 04/26/23 13:34 04/26/23 13:45 04/26/23 14:08 Temperature Pulse Rate 87 85 85 Pulse Rate [Pulse Oximeter] Respiratory Rate Blood Pressure Blood Pressure [Ri ght Arm] Blood Pressure [Ri ght Upper Arm] Pulse Oximetry 94 96 94 Oxygen Delivery Me thod 04/26/23 14:11 04/26/23 14:13 04/26/23 14:15 Temperature Pulse Rate 78 79 77 Pulse Rate [Pulse Oximeter] Respiratory Rate Blood Pressure 81/40 L 84/41 L 88/41 L Blood Pressure [Ri ght Arm] Blood Pressure [Ri ght Upper Arm] Pulse Oximetry 97 100 98 Oxygen Delivery Me thod 04/26/23 14:16 04/26/23 14:30 04/26/23 14:32 Temperature Pulse Rate 80 75 Pulse Rate [Pulse Oximeter] Respiratory Rate Blood Pressure 83/40 L Blood Pressure [Ri ght Arm] Blood Pressure [Ri ght Upper Arm] Pulse Oximetry 98 100 Oxygen Delivery Me thod 04/26/23 14:33 04/26/23 14:45 04/26/23 14:46 Temperature 98.1 F Pulse Rate 79 76 Pulse Rate [Pulse Oximeter] Respiratory Rate Blood Pressure Blood Pressure [Ri ght Arm] Blood Pressure [Ri ght Upper Arm] Pulse Oximetry 97 97 Oxygen Delivery Me thod 04/26/23 14:46 04/26/23 14:47 04/26/23 15:00 Temperature 98.1 F Pulse Rate 76 71 Pulse Rate [Pulse Oximeter] Respiratory Rate Blood Pressure 85/40 L Blood Pressure [Ri ght Arm] Blood Pressure [Ri ght Upper Arm] Pulse Oximetry 99 96 Oxygen Delivery Me thod 04/26/23 15:02 04/26/23 15:03 04/26/23 15:15 Temperature Pulse Rate 71 66 68 Pulse Rate [Pulse Oximeter] Respiratory Rate Blood Pressure 82/41 L Blood Pressure [Ri ght Arm] Blood Pressure [Ri ght Upper Arm] Pulse Oximetry 96 98 100 Oxygen Delivery Me thod 04/26/23 15:17 04/26/23 15:30 04/26/23 16:34 Temperature 97.7 F Pulse Rate 72 74 Pulse Rate [Pulse Oximeter] 82 Respiratory Rate 16 Blood Pressure 81/41 L 76/40 L Blood Pressure [Ri ght Arm] 101/50 L Blood Pressure [Ri ght Upper Arm] Pulse Oximetry 100 95 97 Oxygen Delivery Me thod Room Air Hospitalist - H&P: Result Labs Labs: Short CBC 04/26/23 Range/Units 12:35 WBC 3.55 L (4.50-11.00) K/uL Hgb 10.9 L (12.0-16.0) gm/dL Hct 35.0 (33.0-51.0) % Plt Count 100 L (140-440) K/uL BMP 04/26/23 12:35 Sodium 134 L Potassium 3.9 Chloride 96 Carbon Dioxide 27 BUN 22 Creatinine 0.9 Glucose 95 Calcium 8.4 Urine 04/26/23 Range/Units 14:08 Urine Color Yellow (Yellow) Urine Appearance Cloudy A (Clear) Urine pH 6.5 (5.0-8.5) Ur Specific [place] 1.020 (1.000-1.030) Urine Protein 1+ A (Negative) Urine Glucose (UA) Negative (Negative) Assessment and Plan Assessment and plan (1) Fever: Problem comment: - concerning given immunosuppressed status - ddx: UTI, PNA, viral illness, vasculitis - blood and urine cultures pending - antibiotics broadened to Zosyn (04/26) Status: Acute (2) Hypotension: Problem comment: - potentially related to acute illness/infection (although reassuring lactate), adrenal insufficiency given chronic prednisone use - received 2L of NS in ED, will continue IVFs at a lower rate (given history) - stress dose IV Hydrocortisone initiated 04/26 Status: Acute (3) Paroxysmal atrial fibrillation: Problem comment: - sinus rhythm on admission, continue Abixaban Status: Chronic (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 Technically limited exam. 2. Normal LV size, mildly increased wall thickness, normal global systolic function with an estimated EF of 65 - 70%. 3. The aortic valve is sclerotic and mean gradient 25 mmHg, ana 1.0 cm2, DI 0.33 (lvot diameter of 2.0), prior mean gradient was 34 mmHg, DI of 0.32, ana 1.13 cm2 (lvot diameter 2.1), moderate to severe stenosis and no regurgitation. 4. Moderately enlarged left atrium. 5. The mitral valve is sclerotic and mean mitral valve gradient is 6 mmHg at hr of 83 bpm (not well evaluated), mild mitral regurgitation. Comparison Compared to prior exam images and report of 12/22/2021: - Mitral stenosis has increased. Status: Chronic Plan - per above - continue Eliquis for ppx - daughter Claribel updated by phone, questions answered
[2023-04-26] MEDS: PANTOPRAZOLE SODIUM 40 MG INJ IVP (17:55)
[2023-04-26] MEDS: PIPERACILLIN/TAZOBACTAM 3.375 GM in 0.9 % SODIUM CHLORIDE Mini-bag 100 ML IVPB (17:55)
[2023-04-26] MEDS: HYDROCORTISONE SOD SUCCINATE 50 MG/ML inj IVP ×2 (17:55→21:30)
--- NOTE | 2023-04-26 18:57 | PC.NURSE ---
End of shift - [facility] 15[facility]35. Pt alert and oriented with mild confusion noted by difficulty answering admission questions and losing train of thought while speaking. Pt up to bathroom with walker, gait belt, and 1 assist. Pt reports continence of bowel and bladder at baseline, but had soiled brief during shift. Tolerating regular diet and fluids. Pt reported not being hygienic for the past 2 months. Misc bruising on bilateral LE noted on assessment. Pt stated that the bruises are years old and attributed bruising to L eye blindness and decreased health. Abdominal dressing noted on arrival. Dressing showed dried, sanguinous discharge but patient refused re-dressing of the wound during shift. Pt reported that they see a wound care nurse who changes the dressing on Mondays. notified, placed consult for wound clinic. Family at bedside at end of shift.
[2023-04-26] MEDS: METOPROLOL SUCCINATE (XL) 25 MG TAB PO (21:27)
[2023-04-26] MEDS: APIXABAN 5 MG TABLET 2.5 MG PO (21:32)
[2023-04-26] MEDS: SODIUM CHLORIDE 0.9 % (FLUSH) 10 ML SYRINGE 5 ML IVF (21:35)
[2023-04-26] MEDS: HYDROCODONE-ACETAMIN 5-325 MG 1 TAB PO (22:52)
[2023-04-27] VITALS (10 sets, daily range): BP systolic 95–129; BP diastolic 52–70; PULSE 61–72; RESP 17–18; TEMP 36.2–36.7; O2SAT 98–100; BMI 26.8
[2023-04-27] MEDS: IPRAT-ALBUT 0.5-2.5 MG/3 ML NEB 1 NEB IH ×2 (00:11→18:18)
[2023-04-27] MEDS: PIPERACILLIN/TAZOBACTAM 3.375 GM in 0.9 % SODIUM CHLORIDE Mini-bag 100 ML IVPB ×4 (00:12→18:18)
[2023-04-27] MEDS: HYDROCORTISONE SOD SUCCINATE 50 MG/ML inj IVP ×2 (05:03→10:19)
[2023-04-27 06:57] LABS: Lactate* 1.5 mmol/L (0.5-1.9)
[2023-04-27 07:05] LABS: Basophils Percent Auto 1.1 % (0.0-3.0); Hematocrit 30.2 % (33.0-51.0); Hemoglobin* 9.4 gm/dL (12.0-16.0); Lymphocytes Percent Auto 15.9 % (20-44); Mean Corpuscular HGB Conc 31 gm/dL (32-36); Mean Corpuscular Hemoglobin 33 pg (26-34); Mean Corpuscular Volume 105 fL (80-100); Monocytes Percent Auto 5.3 % (0.0-11.0); Neutrophils Percent Auto 77.7 % (42.0-72.0); RDW Coefficient of Variation % 16.2 % (11.5-15.5); Red Blood Count 2.89 m/uL (4.00-5.20)
[2023-04-27 07:49] LABS: Platelet Count* 79 K/uL (140-440)
[2023-04-27 07:50] LABS: White Blood Count* 1.89 K/uL (4.50-11.00)
[2023-04-27 08:13] LABS: Albumin* 2.6 g/dL (3.3-5.0); Chloride* 104 mmol/L (96-114); Potassium* 3.7 mmol/L (3.6-5.1); Sodium* 137 mmol/L (135-149)
--- NOTE | 2023-04-27 08:13 | PC.NURSE ---
Patient pleasant, alert and cooperative. Ambulated to bathroom well with assist of one, walker and gait belt. IV saline locked and patent. Coughing up cream-colored phlegm with streaks of red blood. PRN Oxy give at 2250 for pain rated 6/10. MRSA nasal swab collected.
[2023-04-27 08:16] LABS: Alanine Aminotransferase* 65 U/L (4-35); Alkaline Phosphatase* 78 U/L (40-150); Anion Gap 11 mEq/L (7-15); Aspartate Amino Transferase* 95 U/L (12-35); Bilirubin Total* 0.5 mg/dL (0.1-1.5); Carbon Dioxide* 22 mmol/L (20-32); Creatinine* 0.8 mg/dL (0.5-1.5); Est. Creatinine Clearance* 40.21; Estimated Glomerular Filt Rate 77 ml/min; Glucose* 134 mg/dL (60-115)
[2023-04-27 08:17] LABS: Calcium* 7.2 mg/dL (8.4-10.6)
[2023-04-27] MEDS: MULTIVITAMIN/MINERALS 1 TABLET 1 TAB PO (08:23)
[2023-04-27] MEDS: METOPROLOL SUCCINATE (XL) 25 MG TAB PO ×2 (08:23→21:22)
[2023-04-27 08:24] LABS: Procalcitonin* 0.68 ng/mL (<0.50)
[2023-04-27] MEDS: FERROUS SULFATE 325 MG TABLET PO (08:24)
[2023-04-27] MEDS: PARoxetine 20 MG TABLET PO (08:24)
[2023-04-27] MEDS: APIXABAN 5 MG TABLET 2.5 MG PO ×2 (08:24→21:22)
[2023-04-27] MEDS: SODIUM CHLORIDE 0.9 % (FLUSH) 10 ML SYRINGE 5 ML IVF ×2 (08:25→21:26)
[2023-04-27] MEDS: LACTOBACILLUS ACIDOPHILUS 1 TABLET 1 TAB PO (08:25)
[2023-04-27 08:31] LABS: Blood Urea Nitrogen* 22 mg/dL (7-30)
[2023-04-27 09:38] LABS: Slide Review Reflex No
[2023-04-27] MEDS: HYDROCODONE-ACETAMIN 5-325 MG 1 TAB PO ×2 (10:23→23:01)
--- NOTE | 2023-04-27 13:16 | P.IMCN_ITS ---
Date of Consult Consult date: 04/27/23 Requesting Physician: Hospitalist Primary Care Provider: Kyle Healy MD Consult Narrative Narrative: Tanner James is a 77 year old female known to wound services being seen today for evaluation of known abd wound. Patient hospitalized for hypoxic respiratory failure, bacteremia, etc. Primary wound care provider Renae Rosado CNP. Wound has been stable and most recently received allografting with kerecis. Last seen in wound center 04/23/23 (please reference provider encounter note). Primary etiology was presumed pressure ulcer as wound was within pannus folds secondary etiology MASD. Review of Systems Status of ROS: Reports: 6 or more systems reviewed and unremarkable except as noted in History and below [facility] Medical History (Updated 04/29/23 @ 14:30 by Alejandro Vasquez MD) Hypoxic respiratory failure ?J96.91 - Respiratory failure, unspecified with hypoxia (ICD-10) Methotrexate adverse reaction ?T45.1X5A - Adverse effect of antineoplastic and immunosuppressive drugs, initial encounter (ICD-10) Fatty liver ?K76.0 - Fatty (change of) liver, not elsewhere classified (ICD-10) Pleural effusion ?J90 - Pleural effusion, not elsewhere classified (ICD-10) Chronic wound ?T14.8XXA - Other injury of unspecified body region, initial encounter (ICD- 10) Immunosuppression ?D84.9 - Immunodeficiency, unspecified (ICD-10) Enrolled in chronic care management ?Z78.9 - Other specified health status (ICD-10) History of kidney stones ?Z87.442 - Personal history of urinary calculi (ICD-10) POLST (Physician Orders for Life-Sustaining Treatment) ?Z78.9 - Other specified health status (ICD-10) Mitral annular calcification ?I05.9 - Rheumatic mitral valve disease, unspecified (ICD-10) Abnormal LFTs (liver function tests) ?R79.89 - Other specified abnormal findings of blood chemistry (ICD-10) Surgical History S/P cataract extraction ?Z98.49 - Cataract extraction status, unspecified eye (ICD-10) S/P cholecystectomy ?Z90.49 - Acquired absence of other specified parts of digestive tract (ICD- 10) History of left nephrectomy ?Z90.5 - Acquired absence of kidney (ICD-10) History of lumbar fusion (04/2010) ?Z98.1 - Arthrodesis status (ICD-10) History of lithotripsy ?Z98.890 - Other specified postprocedural states (ICD-10) Family History Mother Breast cancer, Onset Age: 70 Sister Breast cancer, Onset Age: 35 Social History What is your current living situation?: I presently have a place to live Problems where you live: no known problems Problems where you live details: none In the past 12 months, utilities in danger of being shut off: no In past 12 months, lack of transportation kept you from medical appts, meetings, work, or getting things needed for daily living: no In the past 12 mos, have been you worried that your food would run out before you had money to buy more?: never true In the past 12 mos, the food you bought just didn't last and you didn't have money to buy more?: never true Smoking Status: Never smoker Second hand tobacco smoke exposure: No How often do you have a drink containing alcohol: never How often do you have six or more drinks on one occasion: Never AUDIT-C Alcohol total score: 0 Non-prescribed substance use: denies use Caffeine: No How often does anyone, including family, friends and others, physically hurt you : never How often does anyone, including family, friends and others, insult or talk down to you: never How often does anyone, including family, friends and others, threaten you with harm: never How often does anyone, including family, friends and others, scream or curse at you: never Little interest or pleasure in doing things: more than half the days Feeling down, depressed, or hopeless: more than half the days service: No Meds Home Medications and Allergies Home Medications Medication Instructions Recorded Confirmed Type Lactobacillus acidophilus 0.5 mg 1,000 mmu cells PO DAILY 12/22/21 04/26/23 History (100 million cell) tablet albuterol sulfate 2.5 mg/3 mL 2.5 mg inhalation Q6H PRN 12/22/21 04/26/23 Histo ry (0.083 %) solution for nebulization folic acid 1 mg tablet 3 mg PO DAILY 12/22/21 04/26/23 History ascorbic acid (vitamin C) 500 mg 1 g PO DAILY 01/16/22 04/26/23 History tablet cholecalciferol (vitamin D3) 50 50 mcg PO DAILY 01/16/22 04/26/23 History mcg (2,000 unit) capsule multivitamin 1 tab PO QAM 01/16/22 04/26/23 History methotrexate sodium 2.5 mg tablet 17.5 mg PO .Every 7 Days 03/10/22 04/26/23 History mometasone-formoterol HFA 100 2 puff inhalation BID 02/02/23 04/26/23 History mcg-5 mcg/actuation aerosol inhaler sodium chloride 3 % for 4 ml inhalation .COMPLEX 02/02/23 04/26/23 History nebulization ferrous gluconate 324 mg (37.5 mg 324 mg PO DAILY 04/26/23 04/26/23 History iron) tablet paroxetine HCl 20 mg tablet 20 mg PO DAILY 04/26/23 04/26/23 History prednisone 5 mg tablet 7.5 mg PO DAILY 04/26/23 04/26/23 History Allergies Allergy/AdvReac Type Severity Reaction Status Date / Time NSAIDS (Non-Steroidal Allergy Severe GI bleed Verified 03/22/23 12:56 Anti-Inflamma terbinafine Allergy Intermediate Headache Verified 03/22/23 12:56 levofloxacin AdvReac Severe tendon Verified 03/22/23 12:56 rupture Exam Narrative: Exam Narrative: General: NAD, ALert. Sitting comfortably in chair talking on cell phone. Eyes: wearing glasses, EOM observed WNL Pulmonary: unlabored, speaking in full sentences ABD wound: left lower quadrant. measuring 2.5X1X1.5cm. Fat and fascia exposed. Periwound within normal limits. Const: Vital Signs, click to edit/add: Vital Signs - 24 hr 04/26/23 13:33 04/26/23 13:34 04/26/23 13:45 Temperature Pulse Rate 89 87 85 Pulse Rate [Pulse Oximeter] Respiratory Rate Blood Pressure 94/49 L Blood Pressure [Le ft Arm] Blood Pressure [Ri ght Arm] Pulse Oximetry 95 94 96 Oxygen Delivery Me thod 04/26/23 14:08 04/26/23 14:11 04/26/23 14:13 Temperature Pulse Rate 85 78 79 Pulse Rate [Pulse Oximeter] Respiratory Rate Blood Pressure 81/40 L 84/41 L Blood Pressure [Le ft Arm] Blood Pressure [Ri ght Arm] Pulse Oximetry 94 97 100 Oxygen Delivery Me thod 04/26/23 14:15 04/26/23 14:16 04/26/23 14:30 Temperature Pulse Rate 77 80 75 Pulse Rate [Pulse Oximeter] Respiratory Rate Blood Pressure 88/41 L Blood Pressure [Le ft Arm] Blood Pressure [Ri ght Arm] Pulse Oximetry 98 98 100 Oxygen Delivery Me thod 04/26/23 14:32 04/26/23 14:33 04/26/23 14:45 Temperature Pulse Rate 79 76 Pulse Rate [Pulse Oximeter] Respiratory Rate Blood Pressure 83/40 L Blood Pressure [Le ft Arm] Blood Pressure [Ri ght Arm] Pulse Oximetry 97 97 Oxygen Delivery Me thod 04/26/23 14:46 04/26/23 14:46 04/26/23 14:47 Temperature 98.1 F 98.1 F Pulse Rate 76 Pulse Rate [Pulse Oximeter] Respiratory Rate Blood Pressure 85/40 L Blood Pressure [Le ft Arm] Blood Pressure [Ri ght Arm] Pulse Oximetry 99 Oxygen Delivery Me thod 04/26/23 15:00 04/26/23 15:02 04/26/23 15:03 Temperature Pulse Rate 71 71 66 Pulse Rate [Pulse Oximeter] Respiratory Rate Blood Pressure 82/41 L Blood Pressure [Le ft Arm] Blood Pressure [Ri ght Arm] Pulse Oximetry 96 96 98 Oxygen Delivery Me thod 04/26/23 15:15 04/26/23 15:17 04/26/23 15:30 Temperature Pulse Rate 68 72 74 Pulse Rate [Pulse Oximeter] Respiratory Rate Blood Pressure 81/41 L 76/40 L Blood Pressure [Le ft Arm] Blood Pressure [Ri ght Arm] Pulse Oximetry 100 100 95 Oxygen Delivery Me thod 04/26/23 16:34 04/26/23 16:34 04/26/23 20:30 Temperature 97.7 F 97.8 F Pulse Rate Pulse Rate [Pulse Oximeter] 82 72 Respiratory Rate 16 16 18 Blood Pressure Blood Pressure [Le ft Arm] 97/47 L Blood Pressure [Ri ght Arm] 101/50 L Pulse Oximetry 97 97 94 Oxygen Delivery Me thod Room Air Room Air Room Air 04/26/23 23:00 04/26/23 23:00 04/27/23 03:00 Temperature 97.6 F 97.5 F L Pulse Rate Pulse Rate [Pulse Oximeter] 69 61 Respiratory Rate 16 17 Blood Pressure Blood Pressure [Le ft Arm] 121/50 L 111/55 L Blood Pressure [Ri ght Arm] Pulse Oximetry 94 99 Oxygen Delivery Me thod Room Air Room Air Room Air 04/27/23 05:30 04/27/23 07:25 04/27/23 08:15 Temperature Pulse Rate 64 66 Pulse Rate [Pulse Oximeter] Respiratory Rate 18 Blood Pressure Blood Pressure [Le ft Arm] Blood Pressure [Ri ght Arm] Pulse Oximetry 100 Oxygen Delivery Me thod Room Air 04/27/23 08:20 04/27/23 10:23 Temperature 97.5 F L 97.2 F L Pulse Rate Pulse Rate [Pulse Oximeter] 63 64 Respiratory Rate 18 18 Blood Pressure Blood Pressure [Le ft Arm] 129/70 112/62 Blood Pressure [Ri ght Arm] Pulse Oximetry 100 99 Oxygen Delivery Me thod Room Air Documenting provider has reviewed patient's vital signs: yes Labs Labs: Short CBC 04/27/23 Range/Units 05:38 WBC 1.89 L* (4.50-11.00) K/uL Hgb 9.4 L (12.0-16.0) gm/dL Hct 30.2 L (33.0-51.0) % Plt Count 79 L (140-440) K/uL BMP 04/26/23 04/27/23 12:35 05:38 Sodium 134 L 137 Potassium 3.9 3.7 Chloride 96 104 Carbon Dioxide 27 22 BUN 22 22 Creatinine 0.9 0.8 Glucose 95 134 H Calcium 8.4 7.2 L Liver Function 04/27/23 Range/Units 05:38 Total Bilirubin 0.5 (0.1-1.5) mg/dL AST 95 H (12-35) U/L ALT 65 H (4-35) U/L Alkaline Phosphatase 78 (40-150) U/L Albumin 2.6 L (3.3-5.0) g/dL Urine 04/26/23 Range/Units 14:08 Urine Color Yellow (Yellow) Urine Appearance Cloudy A (Clear) Urine pH 6.5 (5.0-8.5) Ur Specific [place] 1.020 (1.000-1.030) Urine Protein 1+ A (Negative) Urine Glucose (UA) Negative (Negative) Assessment and Plan Assessment and plan (1) Chronic wound: Problem comment: Appears stable. Previous evaluation has not shown obvious underlying pathology. Continue outpatient wound care plan in coordination with Wound Care Clinic. Status: Acute (2) Immunosuppression: Problem comment: Due to pancytopenia, methotrexate and prednisone therapy. Status: Acute Plan wound cleansed and redressed by this assembly instructions writer. Wound care order (supplies at bedside): thoroughly cleanse wound with vashe apply stimulen collagen to wound bed cut hydrofera blue to size of wound bed lightly moisten with normal saline, ring out excess place into woundbed, be cautious to not place onto intact skin bolster with silicone mesh (adaptic was used today, but okay to use mepitel) cover with mepilex 4X4 change EOD & PRN Patient next scheduled wound center appt. 05/07/23 with Renae Rosado CNP Bedside RN updated on wound care orders.
--- NOTE | 2023-04-27 13:33 | PM.IMPN1 ---
Progress Note: A&P Assessment and plan (1) Fever: Problem details: - concerning given immunosuppressed status - ddx: UTI, PNA, viral illness, vasculitis - blood and urine and sputum cultures pending - antibiotics broadened to Zosyn (04/26) to treat Pseudomonas in bronchiectasis Status: Acute (2) Urinary tract infection: Problem details: Pending cultures on Zosyn Status: Acute (3) Essential hypertension: Problem details: With hypotension on admission will cautiously reintroduce normal blood pressure/heart medicines Status: Chronic (4) Chronic anticoagulation: Problem details: History of unprovoked PEs in the past, and still has paroxysmal atrial fibrillation Status: Chronic (5) Immunosuppression: Problem details: Due to pancytopenia, methotrexate and prednisone therapy. Status: Acute (6) Pancytopenia: Problem details: Uncertain cause. This is chronic but clearly worse today. Methotrexate will be held. Closely monitor. Status: Chronic (7) Protein calorie malnutrition: Status: Chronic (8) Chronic use of steroids: Problem details: Prednisone 7.5 mg daily. Will switch from IV steroids to moderate stress dose oral steroids Status: Chronic (9) Severe aortic stenosis: Problem details: - Last TTE 06/18 with results below - follows with Cardiology as outpatient Final Impressions: 1. Technically limited exam. 2. Normal LV size, mildly increased wall thickness, normal global systolic function with an estimated EF of 65 - 70%. 3. The aortic valve is sclerotic and mean gradient 25 mmHg, ana 1.0 cm2, DI 0.33 (lvot diameter of 2.0), prior mean gradient was 34 mmHg, DI of 0.32, ana 1.13 cm2 (lvot diameter 2.1), moderate to severe stenosis and no regurgitation. 4. Moderately enlarged left atrium. 5. The mitral valve is sclerotic and mean mitral valve gradient is 6 mmHg at hr of 83 bpm (not well evaluated), mild mitral regurgitation. Comparison Compared to prior exam images and report of 12/22/2021: - Mitral stenosis has increased. Status: Chronic (10) Bronchiectasis with acute exacerbation: Problem details: Continue home medications. Continue to manage secretions. 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 Stress dose steroids. Status: Chronic (13) Chronic kidney disease, stage 3a: Problem details: Continue to monitor. Status: Chronic (14) Chronic wound: Problem details: Appears stable. Previous evaluation has not shown obvious underlying pathology. Continue outpatient wound care plan in [facility] with [facility]. Status: Acute Plan Continue in hospital for evaluation and management of fever, acute exacerbation of bronchiectasis, UTI, pancytopenia an immunocompromised status. Time Spent With Patient Total time spent: Total time spent today is 70 minutes, 45 minutes in coordination of care and discussing with patient and other providers management of above chronic medical problems Subjective Date Seen: 04/27/23 Interval history: 77-year-old admitted to the hospital with 2 days of fever, weakness, confusion. Patient reports she has had some longstanding decline in her overall health with multiple medical problems. This took turn for the worse in the last couple days. She lives at [facility] and was noted by her daughter to be acutely confused and quite weak. She was documented as having a fever at that time as well. Since admission to the hospital her confusion has resolved. She reports she had a good appetite today and has been able to eat for the last few days. She has a chronic cough due to chronic bronchiectasis. She does not think this is worse than usual or that her sputum has changed substantially she is continuously coughing up sputum however. He has a chronic pleural effusion which is relatively stable though question of atelectasis or infiltrate at her lung base adjacent to the pleural effusion. She is not having any new urinary symptoms. She does have pyuria on her urinalysis and culture is pending. COVID test is negative. She has an abdominal wound that has [facility] getting [facility] the last several months. This is a nonhealing ulcer in her mid abdomen. This is not appear to be infected recently. She has had a history of pancytopenia though this is worse on this hospital admission. She does take methotrexate for rheumatoid arthritis. She is also on prednisone 7.5 mg daily for her rheumatoid arthritis. Today she reports generally feeling better. She feels like confusion is resolved and she is feeling stronger today. She has been treated with piperacillin tazobactam. Exam Narrative: Exam Narrative: She is alert and appears in no distress. Speech is normal. She gives most of her own history with fairly good detail. She forgets some details including her medications. Head is without trauma. Oropharynx is normal. Neck is supple without mass or adenopathy. Respirations are clear to auscultation with occasional basilar crackles at her lung bases. Fairly good air exchange in all lung solano. Cardiovascular: S1, S2, regular rate and rhythm. Harsh 2/6 systolic ejection murmur heard best at the right upper sternal border. Abdomen is soft without tenderness or mass. Mid abdominal wound is inspected she has I 1.5 cm diameter deep ulcer that is packed with dressing. there is no surrounding erythema and there is no tenderness. Const: Vital Signs, click to edit/add: Vital Signs - 24 hr 04/26/23 13:34 04/26/23 13:45 04/26/23 14:08 Temperature Pulse Rate 87 85 85 Pulse Rate [Pulse Oximeter] Respiratory Rate Blood Pressure Blood Pressure [Le ft Arm] Blood Pressure [Ri ght Arm] Pulse Oximetry 94 96 94 Oxygen Delivery Me thod 04/26/23 14:11 04/26/23 14:13 04/26/23 14:15 Temperature Pulse Rate 78 79 77 Pulse Rate [Pulse Oximeter] Respiratory Rate Blood Pressure 81/40 L 84/41 L 88/41 L Blood Pressure [Le ft Arm] Blood Pressure [Ri ght Arm] Pulse Oximetry 97 100 98 Oxygen Delivery Me thod 04/26/23 14:16 04/26/23 14:30 04/26/23 14:32 Temperature Pulse Rate 80 75 Pulse Rate [Pulse Oximeter] Respiratory Rate Blood Pressure 83/40 L Blood Pressure [Le ft Arm] Blood Pressure [Ri ght Arm] Pulse Oximetry 98 100 Oxygen Delivery Me thod 04/26/23 14:33 04/26/23 14:45 04/26/23 14:46 Temperature 98.1 F Pulse Rate 79 76 Pulse Rate [Pulse Oximeter] Respiratory Rate Blood Pressure Blood Pressure [Le ft Arm] Blood Pressure [Ri ght Arm] Pulse Oximetry 97 97 Oxygen Delivery Me thod 04/26/23 14:46 04/26/23 14:47 04/26/23 15:00 Temperature 98.1 F Pulse Rate 76 71 Pulse Rate [Pulse Oximeter] Respiratory Rate Blood Pressure 85/40 L Blood Pressure [Le ft Arm] Blood Pressure [Ri ght Arm] Pulse Oximetry 99 96 Oxygen Delivery Me thod 04/26/23 15:02 04/26/23 15:03 04/26/23 15:15 Temperature Pulse Rate 71 66 68 Pulse Rate [Pulse Oximeter] Respiratory Rate Blood Pressure 82/41 L Blood Pressure [Le ft Arm] Blood Pressure [Ri ght Arm] Pulse Oximetry 96 98 100 Oxygen Delivery Me thod 04/26/23 15:17 04/26/23 15:30 04/26/23 16:34 Temperature 97.7 F Pulse Rate 72 74 Pulse Rate [Pulse Oximeter] 82 Respiratory Rate 16 Blood Pressure 81/41 L 76/40 L Blood Pressure [Le ft Arm] Blood Pressure [Ri ght Arm] 101/50 L Pulse Oximetry 100 95 97 Oxygen Delivery Me thod Room Air 04/26/23 16:34 04/26/23 20:30 04/26/23 23:00 Temperature 97.8 F 97.6 F Pulse Rate Pulse Rate [Pulse Oximeter] 72 69 Respiratory Rate 16 18 16 Blood Pressure Blood Pressure [Le ft Arm] 97/47 L 121/50 L Blood Pressure [Ri ght Arm] Pulse Oximetry 97 94 94 Oxygen Delivery Me thod Room Air Room Air Room Air 04/26/23 23:00 04/27/23 03:00 04/27/23 05:30 Temperature 97.5 F L Pulse Rate 64 Pulse Rate [Pulse Oximeter] 61 Respiratory Rate 17 Blood Pressure Blood Pressure [Le ft Arm] 111/55 L Blood Pressure [Ri ght Arm] Pulse Oximetry 99 Oxygen Delivery Me thod Room Air Room Air 04/27/23 07:25 04/27/23 08:15 04/27/23 08:20 Temperature 97.5 F L Pulse Rate 66 Pulse Rate [Pulse Oximeter] 63 Respiratory Rate 18 18 Blood Pressure Blood Pressure [Le ft Arm] 129/70 Blood Pressure [Ri ght Arm] Pulse Oximetry 100 100 Oxygen Delivery Me thod Room Air Room Air 04/27/23 10:23 Temperature 97.2 F L Pulse Rate Pulse Rate [Pulse Oximeter] 64 Respiratory Rate 18 Blood Pressure Blood Pressure [Le ft Arm] 112/62 Blood Pressure [Ri ght Arm] Pulse Oximetry 99 Oxygen Delivery Me thod Documenting provider has reviewed patient's vital signs: yes Labs Labs: Laboratory Results - last 24 hr 04/26/23 04/27/23 14:08 05:38 WBC 1.89 L* RBC 2.89 L Hgb 9.4 L Hct 30.2 L MCV 105 H MCH 33 MCHC 31 L RDW Coeff of Navneet 16.2 H Plt Count 79 L Neut % (Auto) 77.7 H Lymph % (Auto) 15.9 L [place] % (Auto) 5.3 Eos % (Auto) 0.0 Baso % (Auto) 1.1 Neut # (Auto) 1.50 L Lymph # (Auto) 0.30 L [place] # (Auto) 0.10 Eos # (Auto) 0.00 Baso # (Auto) 0.00 Abs Immat Gran (auto) 0.00 Imm/Tot Granulo (auto) 0.0 Sodium 137 Potassium 3.7 Chloride 104 Carbon Dioxide 22 Anion Gap 11 BUN 22 Creatinine 0.8 Estimated Creat Clear 40.21 Estimated GFR 77 Glucose 134 H Lactate 1.5 Calcium 7.2 L Total Bilirubin 0.5 AST 95 H ALT 65 H Alkaline Phosphatase 78 Total Protein 5.0 L Albumin 2.6 L Procalcitonin 0.68 H Urine Color Yellow Urine Appearance Cloudy A Urine pH 6.5 Ur Specific [place] 1.020 Urine Protein 1+ A Urine Glucose (UA) Negative Urine Ketones 1+ A Urine Blood Trace-intact A Urine Nitrite Negative Urine Bilirubin Negative Urine Urobilinogen 0.2 Ur Leukocyte Esterase 1+ A Urine RBC 5-10 A Urine WBC 10-25 A Ur Squamous Epith Cells Few Urine Bacteria Few A
[2023-04-27] MEDS: predniSONE 10 MG TABLET PO (18:24)
--- NOTE | 2023-04-27 18:26 | PC.NURSE ---
Pt alert and oriented. VSS. Pt SBA with walker and gait belt. Pt had pain ranging from 0-5; see EMAR for intervention. Pt up to chair during shift. Pt had no loose stools on shift; one formed BM. ? ?
[2023-04-28] VITALS (7 sets, daily range): BP systolic 106–140; BP diastolic 51–78; PULSE 58–77; RESP 18–20; TEMP 36.5–37.3; O2SAT 94–99
[2023-04-28] MEDS: PIPERACILLIN/TAZOBACTAM 3.375 GM in 0.9 % SODIUM CHLORIDE Mini-bag 100 ML IVPB ×4 (00:41→18:19)
[2023-04-28] MEDS: 0.9 % SODIUM CHLORIDE 250 ml IV (00:42)
[2023-04-28 06:58] LABS: Basophils Percent Auto 0.3 % (0.0-3.0); Eosinophils Percent Auto 0.3 % (0.0-7.0); Hematocrit 29.2 % (33.0-51.0); Hemoglobin* 8.9 gm/dL (12.0-16.0); Immature Granulocytes Pct Auto 0.3 %; Lymphocytes Percent Auto 13.6 % (20-44); Mean Corpuscular HGB Conc 31 gm/dL (32-36); Mean Corpuscular Hemoglobin 32 pg (26-34); Mean Corpuscular Volume 104 fL (80-100); Monocytes Percent Auto 12.9 % (0.0-11.0); Neutrophils Percent Auto 72.6 % (42.0-72.0); Platelet Count* 111 K/uL (140-440); RDW Coefficient of Variation % 16.2 % (11.5-15.5); White Blood Count* 2.94 K/uL (4.50-11.00)
[2023-04-28 07:01] LABS: Slide Review Reflex No
[2023-04-28 07:20] LABS: Albumin* 2.6 g/dL (3.3-5.0); Chloride* 105 mmol/L (96-114); Potassium* 3.3 mmol/L (3.6-5.1); Sodium* 139 mmol/L (135-149)
[2023-04-28 07:22] LABS: Creatinine* 0.9 mg/dL (0.5-1.5); Est. Creatinine Clearance* 40.21; Estimated Glomerular Filt Rate 67 ml/min
[2023-04-28 07:23] LABS: Alanine Aminotransferase* 50 U/L (4-35); Alkaline Phosphatase* 76 U/L (40-150); Anion Gap 13 mEq/L (7-15); Aspartate Amino Transferase* 70 U/L (12-35); Bilirubin Total* 0.3 mg/dL (0.1-1.5); Blood Urea Nitrogen* 26 mg/dL (7-30); Carbon Dioxide* 21 mmol/L (20-32); Glucose* 114 mg/dL (60-115); Total Protein* 4.8 g/dL (6.0-8.3)
[2023-04-28 07:24] LABS: Calcium* 7.9 mg/dL (8.4-10.6)
[2023-04-28] MEDS: OMEPRAZOLE 20 MG CAPSULE DR PO (07:41)
--- NOTE | 2023-04-28 08:02 | PC.NURSE ---
Patient pleasant, alert and oriented. Ambulates well with assist of one, walker and gait belt. Intermittent cough with thick creamy-brown and yellow sputum; no noted blood. Dressing to abdomen intact with a scant amount of drainage seen through. PRN [place] given at 2300 for right hip pain.
[2023-04-28] MEDS: FERROUS SULFATE 325 MG TABLET PO (09:07)
[2023-04-28] MEDS: predniSONE 10 MG TABLET PO ×2 (09:07→18:19)
[2023-04-28] MEDS: APIXABAN 5 MG TABLET 2.5 MG PO ×2 (09:08→20:54)
[2023-04-28] MEDS: MULTIVITAMIN/MINERALS 1 TABLET 1 TAB PO (09:08)
[2023-04-28] MEDS: FOLIC ACID 1 MG TABLET 3 MG PO (09:08)
[2023-04-28] MEDS: PARoxetine 20 MG TABLET PO (09:08)
[2023-04-28] MEDS: METOPROLOL SUCCINATE (XL) 25 MG TAB PO ×2 (09:09→20:54)
[2023-04-28] MEDS: POTASSIUM BICARB 25 MEQ EFFERVESCENT TAB PO (09:18)
[2023-04-28] MEDS: LACTOBACILLUS ACIDOPHILUS 1 TABLET 1 TAB PO (09:18)
[2023-04-28] MEDS: SODIUM CHLORIDE 0.9 % (FLUSH) 10 ML SYRINGE 5 ML IVF ×2 (09:20→20:56)
[2023-04-28] MEDS: VALGANCICLOVIR 450 MG PO (10:52)
--- NOTE | 2023-04-28 13:07 | P.IMPN_ITS ---
Progress Note: A&P Assessment and plan (1) Bronchiectasis with acute exacerbation: Problem details: Continue home medications. Continue to manage secretions. Zosyn for antibiotic therapy for now. Status: Inactive (2) Immunosuppression: Problem details: Due to pancytopenia, methotrexate and prednisone therapy. Status: Acute (3) Chronic wound: Problem details: Appears stable. Previous evaluation has not shown obvious underlying pathology. Continue outpatient wound care plan in [facility] with [facility]. Status: Acute (4) Pancytopenia: Problem details: Uncertain cause. Improved today. Continue to hold methotrexate and monitor. Status: Chronic (5) Protein calorie malnutrition: Problem details: Oral intake is quite good. Status: Chronic (6) Chronic kidney disease, stage 3a: Problem details: Continue to monitor. Status: Chronic (7) Chronic use of steroids: Problem details: Prednisone 7.5 mg daily. Will switch from IV steroids to moderate stress dose oral steroids Status: Chronic (8) Chronic anticoagulation: Problem details: History of unprovoked PEs in the past, and still has paroxysmal atrial fibrillation Status: Chronic (9) Essential hypertension: Problem details: With hypotension on admission will cautiously reintroduce normal blood pressure/heart medicines Status: Chronic (10) Urinary tract infection: Problem details: Pending cultures on Zosyn Status: Acute (11) Methotrexate adverse reaction: Problem details: With pancytopenia, elevated transaminases, chronic lung disease I am concerned about methotrexate toxicity. Will stop methotrexate pending outpatient follow- up with Rheumatology. Patient reports chronic manager is looking at starting a biologic medicine for her Status: Acute (12) Bacteremia: Problem details: Positive blood culture today. Initiated vancomycin pending cultures. MRSA swab is negative making MRSA pneumonia unlikely. Status: Acute (13) Severe aortic stenosis: Problem details: - Last TTE 06/18 with results below - follows with Cardiology as outpatient. Follow-up echo and cardiology appointment next month. More urgent evaluation if becoming symptomatic. Final Impressions: 1. Technically limited exam. 2. Normal LV size, mildly increased wall thickness, normal global systolic function with an estimated EF of 65 - 70%. 3. The aortic valve is sclerotic and mean gradient 25 mmHg, ana 1.0 cm2, DI 0.33 (lvot diameter of 2.0), prior mean gradient was 34 mmHg, DI of 0.32, ana 1.13 cm2 (lvot diameter 2.1), moderate to severe stenosis and no regurgitation. 4. Moderately enlarged left atrium. 5. The mitral valve is sclerotic and mean mitral valve gradient is 6 mmHg at hr of 83 bpm (not well evaluated), mild mitral regurgitation. Comparison Compared to prior exam images and report of 12/22/2021: - Mitral stenosis has increased. Status: Chronic Plan Continue in-hospital on IV antibiotics for treatment of bronchiectasis at exacerbation, UTI, bacteremia. Clinically is improving. Depending on cultures may be able to discharge home tomorrow. Time Spent With Patient Total time spent: Total time spent today is 60 minutes. 45 minutes was spent discussing with the patient and other providers her multiple and complex medical problems, challenging clinical choices especially related to her immunosuppression and methotrexate as well as other potential treatments for rheumatoid arthritis. We also discussed antibiotics for bronchiectasis than her previous problems with Levaquin possibly causing tendon rupture in her elbows. Subjective Date Seen: 04/28/23 Interval history: 77-year-old admitted to the hospital with 2 days of fever, weakness, confusion. Patient reports she has had some longstanding decline in her overall health with multiple medical problems. This took turn for the worse in the last couple days. She lives at [facility] and was noted by her daughter to be acutely confused and quite weak. She was documented as having a fever at that time as well. Since admission to the hospital her confusion has resolved. She reports she had a good appetite today and has been able to eat for the last few days. She has a chronic cough due to chronic bronchiectasis. She does not think this is worse than usual or that her sputum has changed substantially she is continuously coughing up sputum however. He has a chronic pleural effusion which is relatively stable though question of atelectasis or infiltrate at her lung base adjacent to the pleural effusion. She is not having any new urinary symptoms. She does have pyuria on her urinalysis and culture is pending. COVID test is negative. She has an abdominal wound that has been getting [facility] for the last several months. This is a nonhealing ulcer in her mid abdomen. This is not appear to be infected recently. She has had a history of pancytopenia though this is worse on this hospital admission. She does take methotrexate for rheumatoid arthritis. She is also on prednisone 7.5 mg daily for her rheumatoid arthritis. Again today she reports generally feeling better. She feels like confusion is resolved and she is feeling stronger today. she is not aware of any fever. Her cough is still prominent but she reports unchanged from her baseline. She is ambulating with standby assistance and that is going fairly well. She has been treated with piperacillin tazobactam. early this morning she had 1 of 4 blood cultures positive for Gram-positive cocci in clusters. She has been started on vancomycin pending further cultures and sensitivities. Exam Narrative: Exam Narrative: She is alert and appears in no distress. Mood and affect are bright. Respirations with a few by lateral crackles primarily at the lung bases but also upper lung solano. Fair air exchange all lung solano. Cardiovascular: S1, S2, regular rate and rhythm. Harsh 2/6 systolic ejection murmur. Abdomen is soft without tenderness or mass. Const: Vital Signs, click to edit/add: Vital Signs - 24 hr 04/27/23 15:15 04/27/23 15:15 04/27/23 15:58 Temperature 97.2 F L Pulse Rate 61 Pulse Rate [Pulse Oximeter] 66 Respiratory Rate 18 18 Blood Pressure [Le ft Arm] 113/52 L Pulse Oximetry 98 [facility] 04/27/23 20:00 04/27/23 23:00 04/27/23 23:00 Temperature 98.0 F Pulse Rate Pulse Rate [Pulse Oximeter] 69 Respiratory Rate 18 18 Blood Pressure [Le ft Arm] 111/53 L Pulse Oximetry 98 98 [facility] 04/27/23 23:00 04/28/23 00:25 04/28/23 02:40 Temperature 97.8 F 97.8 F Pulse Rate 63 Pulse Rate [Pulse Oximeter] 72 68 Respiratory Rate 18 18 Blood Pressure [Le ft Arm] 95/67 106/54 L Pulse Oximetry 98 97 [facility] 04/28/23 07:00 04/28/23 07:00 04/28/23 07:00 Temperature 97.7 F Pulse Rate Pulse Rate [Pulse Oximeter] 61 61 Respiratory Rate 18 18 18 Blood Pressure [Le ft Arm] 130/64 Pulse Oximetry 95 95 [facility] 04/28/23 11:00 Temperature 97.7 F Pulse Rate Pulse Rate [Pulse Oximeter] 74 Respiratory Rate 20 Blood Pressure [Le ft Arm] 133/53 L Pulse Oximetry 99 Oxygen Delivery Me thod Room Air Documenting provider has reviewed patient's vital signs: yes Labs Labs: Laboratory Results - last 24 hr 04/28/23 05:49 WBC 2.94 L RBC 2.80 L Hgb 8.9 L Hct 29.2 L MCV 104 H MCH 32 MCHC 31 L RDW Coeff of Navneet 16.2 H Plt Count 111 L Neut % (Auto) 72.6 H Lymph % (Auto) 13.6 L [place] % (Auto) 12.9 H Eos % (Auto) 0.3 Baso % (Auto) 0.3 Neut # (Auto) 2.10 Lymph # (Auto) 0.40 L [place] # (Auto) 0.40 Eos # (Auto) 0.00 Baso # (Auto) 0.00 Abs Immat Gran (auto) 0.00 Imm/Tot Granulo (auto) 0.3 Sodium 139 Potassium 3.3 L Chloride 105 Carbon Dioxide 21 Anion Gap 13 BUN 26 Creatinine 0.9 Estimated Creat Clear 40.21 Estimated GFR 67 Glucose 114 Calcium 7.9 L Total Bilirubin 0.3 AST 70 H ALT 50 H Alkaline Phosphatase 76 Total Protein 4.8 L Albumin 2.6 L
[2023-04-28] MEDS: HYDROCODONE-ACETAMIN 5-325 MG 1 TAB PO (15:09)
--- NOTE | 2023-04-28 19:25 | PC.NURSE ---
End of shift note: patient is alert and oriented, pleasant and cooperative. Patient up to BR and chair with SBA. Patient tolerating a reg diet. PRN pain med administered x1 see eMAR. patient afebrile this shift, VSS and NSR on tele.
[2023-04-29] VITALS (19 sets, daily range): BP systolic 96–166; BP diastolic 50–100; PULSE 62–124; RESP 20–38; TEMP 36.1–38.1; O2SAT 90–99
[2023-04-29] MEDS: PIPERACILLIN/TAZOBACTAM 3.375 GM in 0.9 % SODIUM CHLORIDE Mini-bag 100 ML IVPB ×5 (00:42→23:49)
[2023-04-29] MEDS: 0.9 % SODIUM CHLORIDE 250 ml IV (00:42)
[2023-04-29] MEDS: HYDROCODONE-ACETAMIN 5-325 MG 1 TAB PO ×2 (01:21→19:33)
[2023-04-29] MEDS: ACETAMINOPHEN 325 MG TABLET 975 MG PO (02:43)
[2023-04-29] MEDS: IPRAT-ALBUT 0.5-2.5 MG/3 ML NEB 1 NEB IH (02:45)
--- NOTE | 2023-04-29 04:50 | PC.NURSE ---
Patient pleasant, alert and oriented.? Stated she was feeling ?out of sorts? tonight when thinking about how it will be when she goes home. PRN [place] given for pain rated 6/10 in right hip. O2 sats 84% on room air and patient reported feeling SOB. O2 applied at 2 LPM, sats increased to 92%. PRN neb treatment effective. Temp 100.1 at 0243. Patient reported she felt ok. PRN Tylenol given. Recheck temp 98.4.?
[2023-04-29] MEDS: OMEPRAZOLE 20 MG CAPSULE DR PO (05:49)
[2023-04-29 06:39] LABS: Basophils Percent Auto 0.3 % (0.0-3.0); Eosinophils Percent Auto 1.9 % (0.0-7.0); Hematocrit 27.4 % (33.0-51.0); Hemoglobin* 8.5 gm/dL (12.0-16.0); Immature Granulocytes Pct Auto 2.2 %; Lymphocytes Percent Auto 13.7 % (20-44); Mean Corpuscular HGB Conc 31 gm/dL (32-36); Mean Corpuscular Hemoglobin 32 pg (26-34); Mean Corpuscular Volume 104 fL (80-100); Monocytes Percent Auto 14.3 % (0.0-11.0); Neutrophils Percent Auto 67.6 % (42.0-72.0); Platelet Count* 128 K/uL (140-440); RDW Coefficient of Variation % 16.6 % (11.5-15.5); Red Blood Count 2.63 m/uL (4.00-5.20); White Blood Count* 3.22 K/uL (4.50-11.00)
[2023-04-29 06:40] LABS: Slide Review Reflex No
[2023-04-29] MEDS: FOLIC ACID 1 MG TABLET 3 MG PO (08:40)
[2023-04-29] MEDS: MULTIVITAMIN/MINERALS 1 TABLET 1 TAB PO (08:40)
[2023-04-29] MEDS: LACTOBACILLUS ACIDOPHILUS 1 TABLET 1 TAB PO (08:41)
[2023-04-29] MEDS: VALGANCICLOVIR 450 MG PO (08:41)
[2023-04-29] MEDS: METOPROLOL SUCCINATE (XL) 25 MG TAB PO (08:41)
[2023-04-29] MEDS: FERROUS SULFATE 325 MG TABLET PO (08:41)
[2023-04-29] MEDS: APIXABAN 5 MG TABLET 2.5 MG PO ×2 (08:41→20:41)
[2023-04-29] MEDS: predniSONE 10 MG TABLET PO (08:43)
[2023-04-29] MEDS: SODIUM CHLORIDE 0.9 % (FLUSH) 10 ML SYRINGE 5 ML IVF ×3 (08:44→20:42)
--- NOTE | 2023-04-29 10:07 | CRLHL7_ITS ---
For Patients: As a result of the Century Cures Act, medical imaging exams and procedure reports are released immediately into your electronic medical record. You may view this report before your referring provider. If you have questions, please contact your health care provider. Indication: Hypoxia Technique: Volumetric multidetector CT images of the chest were obtained after the administration of IV contrast. 95 cc Isovue 370 low osmolar intravenous contrast Comparison: CT chest with contrast September 15, 2022. Findings: The thoracic inlet and thyroid gland are unremarkable. The thoracic aorta is non aneurysmal. There is no central filling defect to suggest pulmonary embolism. There are reactive mediastinal and hilar lymph nodes. There is marked central bronchial thickening and interstitial prominence. There are extensive interstitial and airspace opacities within the upper lobes with bibasilar pleural effusions with adjacent compressive atelectasis. Overall these findings likely represent developing pulmonary edema and/or multifocal infiltrates. There is no evidence of pulmonary mass or suspicious pulmonary nodule. The partially visualized upper abdominal viscera are within normal limits. The thoracic vertebral body heights are grossly maintained with diffuse flowing anterior osteophytosis and ossification of the interspinous ligament. Impression: Extensive interstitial and airspace opacities seen throughout the bilateral hemithoraces with basilar pleural effusions likely representing developing pulmonary edema and/or multifocal infiltrates. Please note that all CT scans at this facility use dose modulation, iterative reconstruction, and/or weight-based dosing when appropriate to reduce radiation dose to as low as reasonably achievable. Dictated by Ugo Carlisle MD @ 04/29/2023 12:16:23 PM (Electronically Signed)
--- NOTE | 2023-04-29 10:20 | PC.SOCIAL ---
Addendum entered by Samanta Vargas LCSW 04/29/23 10:32: Update from Hospitalist that patient will not be discharged today. Social work to follow up as needed. Message left for [facility]. Original Note: Discharge Planning: Called [facility] [phone]. They would like a call back when patient is going to be discharged. Social work to follow up as needed.
[2023-04-29 10:40] LABS: HCO3 VBG 24 mmol/L (21-28); PCO2 VBG 45 mmHG (40-50); PO2 VBG 24.3 mmHG (25-47); pH VBG 7.332 (7.32-7.43)
[2023-04-29 10:42] LABS: Basophils Absolute Auto 0.02 K/uL (0.00-0.30); Basophils Percent Auto 0.3 % (0.0-3.0); Eosinophils Absolute Auto 0.25 K/uL (0.00-0.50); Eosinophils Percent Auto 3.9 % (0.0-7.0); Hematocrit 37.8 % (33.0-51.0); Hemoglobin* 11.7 gm/dL (12.0-16.0); Immature Granulocytes Abs Auto 0.27 K/uL (0.00-0.30); Immature Granulocytes Pct Auto 4.2 %; Lymphocytes Absolute Auto 1.69 K/uL (0.90-2.90); Lymphocytes Percent Auto 26.2 % (20-44); Mean Corpuscular HGB Conc 31 gm/dL (32-36); Mean Corpuscular Hemoglobin 32 pg (26-34); Mean Corpuscular Volume 104 fL (80-100); Monocytes Percent Auto 9.4 % (0.0-11.0); Neutrophils Absolute Auto 3.62 K/uL (1.7-7.0); Platelet Count* 199 K/uL (140-440); RDW Coefficient of Variation % 16.8 % (11.5-15.5); Red Blood Count 3.63 m/uL (4.00-5.20); White Blood Count* 6.46 K/uL (4.50-11.00)
[2023-04-29 10:43] LABS: Slide Review Reflex Yes
[2023-04-29 10:59] LABS: Chloride* 106 mmol/L (96-114); Potassium* 3.7 mmol/L (3.6-5.1); Sodium* 141 mmol/L (135-149)
[2023-04-29 11:01] LABS: Est. Creatinine Clearance* 40.21; Estimated Glomerular Filt Rate 59 ml/min
[2023-04-29 11:02] LABS: Anion Gap 13 mEq/L (7-15); Blood Urea Nitrogen* 23 mg/dL (7-30); Carbon Dioxide* 22 mmol/L (20-32); Glucose* 84 mg/dL (60-115)
[2023-04-29 11:03] LABS: Calcium* 8.3 mg/dL (8.4-10.6)
[2023-04-29 11:05] LABS: C Reactive Protein* 5.7 mg/dL (0.5-1.0)
[2023-04-29 11:06] LABS: Slide Review Acceptable Review (Acceptable)
[2023-04-29 11:14] LABS: NT Pro B Type NatriureticPept* 7770 pg/mL; Troponin I* 0.03 ng/mL (0.01-0.04)
[2023-04-29 11:19] LABS: Procalcitonin* 0.38 ng/mL (<0.50)
[2023-04-29] MEDS: POTASSIUM BICARB 25 MEQ EFFERVESCENT TAB PO (12:30)
[2023-04-29] MEDS: FUROSEMIDE 10 MG/ML inj 40 MG IVP (12:30)
--- NOTE | 2023-04-29 14:19 | PM.IMPN1 ---
Progress Note: A&P Assessment and plan (1) Hypoxic respiratory failure: Problem details: Appears primarily to be heart failure. Underlying bronchiectasis, COPD and possibly pneumonia. Treat for hospital-acquired pneumonia. Now on high-flow nasal cannula. Status: Acute (2) Immunosuppression: Problem details: Due to pancytopenia, methotrexate and prednisone therapy. Status: Acute (3) Urinary tract infection: Problem details: Citrobacter sensitive to Zosyn Status: Acute (4) Fever: Problem details: Has fever today despite 4 days of Zosyn. Concern for C diff. Status: Acute (5) Bacteremia: Problem details: Recheck blood cultures with fever. Previous blood culture is coag-negative staph Status: Acute (6) Methotrexate adverse reaction: Problem details: With pancytopenia, elevated transaminases, chronic lung disease I am concerned about methotrexate toxicity. Will stop methotrexate pending outpatient follow-up with Rheumatology. Patient reports social service manager is looking at starting a biologic medicine for her Status: Acute (7) Fatty liver: Status: Acute (8) Chronic wound: Problem details: Appears stable. Previous evaluation has not shown obvious underlying pathology. Continue outpatient wound care plan in [facility] with [facility]. Status: Acute (9) Pleural effusion: Problem details: Chronic pleural effusions. History of spontaneous bilateral hemo thorax in December 2021 Status: Acute (10) Paroxysmal atrial fibrillation: Problem details: - sinus rhythm on admission, continue Abixaban Status: Chronic (11) Rheumatoid arthritis: Problem details: Hold methotrexate. Stress dose steroids. Status: Chronic (12) Bronchiectasis: Problem details: Continue outpatient medications. Continue to work on clearing secretions. Also treat for hospital-acquired pneumonia Status: Acute (13) Pancytopenia: Problem details: Uncertain cause. Improved today. Continue to hold methotrexate and monitor. Status: Chronic (14) Chronic anticoagulation: Problem details: History of unprovoked PEs in the past, and still has paroxysmal atrial fibrillation Status: Chronic (15) Severe aortic stenosis: Problem details: With heart failure exacerbation will obtain echocardiogram. Close monitoring of fluid status and blood pressure with severe aortic stenosis - Last TTE 06/18 with results below - follows with Cardiology as outpatient. Follow-up echo and cardiology appointment next month. More urgent evaluation if becoming symptomatic. Final Impressions: 1. Technically limited exam. 2. Normal LV size, mildly increased wall thickness, normal global systolic function with an estimated EF of 65 - 70%. 3. The aortic valve is sclerotic and mean gradient 25 mmHg, ana 1.0 cm2, DI 0.33 (lvot diameter of 2.0), prior mean gradient was 34 mmHg, DI of 0.32, ana 1.13 cm2 (lvot diameter 2.1), moderate to severe stenosis and no regurgitation. 4. Moderately enlarged left atrium. 5. The mitral valve is sclerotic and mean mitral valve gradient is 6 mmHg at hr of 83 bpm (not well evaluated), mild mitral regurgitation. Comparison Compared to prior exam images and report of 12/22/2021: - Mitral stenosis has increased. Status: Chronic Plan Patient is admitted to CCU for critical care of hypoxic respiratory failure. Now on high-flow nasal cannula. Time Spent With Patient Total time spent: Total time spent today is 70 minutes in critical care evaluation management Subjective Date Seen: 04/29/23 Interval history: 77-year-old admitted to the hospital with 2 days of fever, weakness, confusion. Patient reports she has had some longstanding decline in her overall health with multiple medical problems. This took turn for the worse in the last couple days. She lives at [facility] and was noted by her daughter to be acutely confused and quite weak. She was documented as having a fever at that time as well. Since admission to the hospital her confusion has resolved. She reports she had a good appetite today and has been able to eat for the last few days. She has a chronic cough due to chronic bronchiectasis. She does not think this is worse than usual or that her sputum has changed substantially she is continuously coughing up sputum however. He has a chronic pleural effusion which is relatively stable though question of atelectasis or infiltrate at her lung base adjacent to the pleural effusion. She is not having any new urinary symptoms. She does have pyuria on her urinalysis and culture is pending. COVID test is negative. She has an abdominal wound that has been getting [facility] for the last several months. This is a nonhealing ulcer in her mid abdomen. This is not appear to be infected recently. She has had a history of pancytopenia though this is worse on this hospital admission. She does take methotrexate for rheumatoid arthritis. She is also on prednisone 7.5 mg daily for her rheumatoid arthritis. Again today she reports generally feeling better. She feels like confusion is resolved and she is feeling stronger today. she is not aware of any fever. Her cough is still prominent but she reports unchanged from her baseline. She is ambulating with standby assistance and that is going fairly well. She has been treated with piperacillin tazobactam. She had 1 of 4 blood cultures positive for Gram-positive cocci in clusters this is now appearing to be a contaminant as they are coag-negative. Urine culture shows Citrobacter. Overnight she developed hypoxia out with worsening of her cough. She has put on nasal cannula oxygen. This morning her symptoms got worse and she was requiring high-flow oxygen. She was transferred to CCU for critical care. She continues to have cough productive of a clearish sputum. She is quite weak. Less responsive. Exam Narrative: Exam Narrative: She appears in moderate respiratory distress. Cough productive of clear sputum. She arouses to voice but falls asleep easily. Less interactive today. Respirations with diffuse crackles and decreased breath sounds. Cardiovascular: S1, S2, regular rate and rhythm. Abdomen is soft with with mild to moderate left-sided tenderness. No mass. Const: Vital Signs, click to edit/add: Vital Signs - 24 hr 04/28/23 15:00 04/28/23 15:00 04/28/23 15:00 Temperature 97.7 F Pulse Rate Pulse Rate [Pulse Oximeter] 77 77 Respiratory Rate 20 20 20 Blood Pressure [Le ft Arm] 118/51 L Blood Pressure [Ri ght Arm] Pulse Oximetry 96 96 Oxygen Delivery Me thod Room Air Room Air Oxygen Flow Rate Fraction of Inspir ed Oxygen 04/28/23 15:00 04/28/23 19:45 04/28/23 22:42 Temperature 98.4 F 99.2 F Pulse Rate 65 Pulse Rate [Pulse Oximeter] 68 77 Respiratory Rate 20 20 Blood Pressure [Le ft Arm] 116/57 L 140/78 H Blood Pressure [Ri ght Arm] 117/51 L Pulse Oximetry 97 94 Oxygen Delivery Me thod Room Air Room Air Oxygen Flow Rate Fraction of Inspir ed Oxygen 04/29/23 01:55 04/29/23 02:43 04/29/23 02:45 Temperature 100.1 F H Pulse Rate 76 Pulse Rate [Pulse Oximeter] Respiratory Rate Blood Pressure [Le ft Arm] Blood Pressure [Ri ght Arm] Pulse Oximetry 92 Oxygen Delivery Me thod Nasal Cannula Oxygen Flow Rate 2 Fraction of Inspir ed Oxygen 04/29/23 03:00 04/29/23 04:00 04/29/23 07:22 Temperature 100.1 F H 98.4 F Pulse Rate 63 Pulse Rate [Pulse Oximeter] 84 Respiratory Rate 22 Blood Pressure [Le ft Arm] 117/60 Blood Pressure [Ri ght Arm] Pulse Oximetry 92 Oxygen Delivery Me thod Nasal Cannula Oxygen Flow Rate 2 Fraction of Inspir ed Oxygen 04/29/23 07:52 04/29/23 07:52 04/29/23 10:35 Temperature 97.3 F L 100.5 F H Pulse Rate Pulse Rate [Pulse Oximeter] 71 124 H Respiratory Rate 22 22 38 H Blood Pressure [Le ft Arm] 122/53 L 166/100 H Blood Pressure [Ri ght Arm] Pulse Oximetry 99 99 90 Oxygen Delivery Me thod Room Air Room Air Nasal Cannula Oxygen Flow Rate 0 2 Fraction of Inspir ed Oxygen 04/29/23 10:59 04/29/23 13:31 Temperature 100.5 F H Pulse Rate Pulse Rate [Pulse Oximeter] 124 H Respiratory Rate 38 H Blood Pressure [Le ft Arm] 166/100 H Blood Pressure [Ri ght Arm] Pulse Oximetry 90 Oxygen Delivery Me thod Nasal Cannula Oxygen Flow Rate 2 30 Fraction of Inspir ed Oxygen 30 Documenting provider has reviewed patient's vital signs: yes Labs Labs: Laboratory Results - last 24 hr 04/29/23 04/29/23 04/29/23 05:52 10:36 10:36 WBC 3.22 L 6.46 RBC 2.63 L 3.63 L Hgb 8.5 L 11.7 L Hct 27.4 L 37.8 MCV 104 H 104 H MCH 32 32 MCHC 31 L 31 L RDW Coeff of Navneet 16.6 H 16.8 H Plt Count 128 L 199 Neut % (Auto) 67.6 56.0 Lymph % (Auto) 13.7 L 26.2 [place] % (Auto) 14.3 H 9.4 Eos % (Auto) 1.9 3.9 Baso % (Auto) 0.3 0.3 Neut # (Auto) 2.20 3.62 Lymph # (Auto) 0.40 L 1.69 [place] # (Auto) 0.50 0.60 Eos # (Auto) 0.10 0.25 Baso # (Auto) 0.00 0.02 Abs Immat Gran (auto) 0.10 0.27 Imm/Tot Granulo (auto) 2.2 4.2 Diff Slide Review Acceptable Review VBG pH 7.332 VBG pCO2 45 VBG pO2 24.3 L VBG HCO3 24 Sodium Cancelled 141 Potassium Cancelled Chloride Carbon Dioxide Anion Gap BUN Creatinine Estimated Creat Clear Estimated GFR Glucose Calcium Troponin I C-Reactive Protein NT-Pro-B Natriuret Pep Procalcitonin 04/29/23 04/29/23 04/29/23 10:36 10:36 10:36 WBC RBC Hgb Hct MCV MCH MCHC RDW Coeff of [place] Plt Count Neut % (Auto) Lymph % (Auto) [place] % (Auto) Eos % (Auto) Baso % (Auto) Neut # (Auto) Lymph # (Auto) [place] # (Auto) Eos # (Auto) Baso # (Auto) Abs Immat Gran (auto) Imm/Tot Granulo (auto) Diff Slide Review VBG pH VBG pCO2 VBG pO2 VBG HCO3 Sodium Potassium 3.7 Chloride Cancelled 106 Carbon Dioxide Cancelled 22 Anion Gap Cancelled BUN Creatinine Estimated Creat Clear Estimated GFR Glucose Calcium Troponin I C-Reactive Protein NT-Pro-B Natriuret Pep Procalcitonin 04/29/23 04/29/23 04/29/23 10:36 10:36 10:36 WBC RBC Hgb Hct MCV MCH MCHC RDW Coeff of Nav[place] Plt Count Neut % (Auto) Lymph % (Auto) [place] % (Auto) Eos % (Auto) Baso % (Auto) Neut # (Auto) Lymph # (Auto) [place] # (Auto) Eos # (Auto) Baso # (Auto) Abs Immat Gran (auto) Imm/Tot Granulo (auto) Diff Slide Review VBG pH VBG pCO2 VBG pO2 VBG HCO3 Sodium Potassium Chloride Carbon Dioxide Anion Gap 13 BUN Cancelled 23 Creatinine Cancelled 1.0 Estimated Creat Clear Cancelled Estimated GFR Glucose Calcium Troponin I C-Reactive Protein NT-Pro-B Natriuret Pep Procalcitonin 04/29/23 04/29/23 04/29/23 10:36 10:36 10:36 WBC RBC Hgb Hct MCV MCH MCHC RDW Coeff of [place] Plt Count Neut % (Auto) Lymph % (Auto) [place] % (Auto) Eos % (Auto) Baso % (Auto) Neut # (Auto) Lymph # (Auto) [place] # (Auto) Eos # (Auto) Baso # (Auto) Abs Immat Gran (auto) Imm/Tot Granulo (auto) Diff Slide Review VBG pH VBG pCO2 VBG pO2 VBG HCO3 Sodium Potassium Chloride Carbon Dioxide Anion Gap BUN Creatinine Estimated Creat Clear 40.21 Estimated GFR Cancelled 59 Glucose Cancelled 84 Calcium Cancelled Troponin I C-Reactive Protein NT-Pro-B Natriuret Pep Procalcitonin 04/29/23 04/29/23 10:36 10:36 WBC RBC Hgb Hct MCV MCH MCHC RDW Coeff of [place] Plt Count Neut % (Auto) Lymph % (Auto) [place] % (Auto) Eos % (Auto) Baso % (Auto) Neut # (Auto) Lymph # (Auto) [place] # (Auto) Eos # (Auto) Baso # (Auto) Abs Immat Gran (auto) Imm/Tot Granulo (auto) Diff Slide Review VBG pH VBG pCO2 VBG pO2 VBG HCO3 Sodium Potassium Chloride Carbon Dioxide Anion Gap BUN Creatinine Estimated Creat Clear Estimated GFR Glucose Calcium 8.3 L Troponin I 0.03 C-Reactive Protein 5.7 H NT-Pro-B Natriuret Pep 7770 Procalcitonin Cancelled 0.[address] scan - chest: Radiologist's impression: Indication: Hypoxia Technique: Volumetric multidetector CT images of the chest were obtained after the administration of IV contrast. 95 cc Isovue 370 low osmolar intravenous contrast Comparison: CT chest with contrast September 15, 2022. Findings: The thoracic inlet and thyroid gland are unremarkable. The thoracic aorta is non aneurysmal. There is no central filling defect to suggest pulmonary embolism. There are reactive mediastinal and hilar lymph nodes. There is marked central bronchial thickening and interstitial prominence. There are extensive interstitial and airspace opacities within the upper lobes with bibasilar pleural effusions with adjacent compressive atelectasis. Overall these findings likely represent developing pulmonary edema and/or multifocal infiltrates. There is no evidence of pulmonary mass or suspicious pulmonary nodule. The partially visualized upper abdominal viscera are within normal limits. The thoracic vertebral body heights are grossly maintained with diffuse flowing anterior osteophytosis and ossification of the interspinous ligament. Impression: Extensive interstitial and airspace opacities seen throughout the bilateral hemithoraces with basilar pleural effusions likely representing developing pulmonary edema and/or multifocal infiltrates. Please note that all CT scans at this facility use dose modulation, iterative reconstruction, and/or weight-based dosing when appropriate to reduce radiation dose to as low as reasonably achievable.
[2023-04-29 16:21] LABS: C.Difficile Negative (Negative); CDIFFEPI 027 PRESUMPTIVE NEGATIVE (Negative)
[2023-04-29] MEDS: POTASSIUM BICARB 25 MEQ EFFERVESCENT TAB 50 MEQ PO (18:22)
--- NOTE | 2023-04-29 18:22 | PC.NURSE ---
Pt alert and oriented. Pt had no complaints of pain during shift (01-07). Mid-morning Pt had complaints of trouble breathing and shortness of breath. Hospitalist notified; PE study order along with lab work. Pt placed on oxygen between 2-3 Liters. Pt changed to high flow O2 by RT. Pt changed to CCU from floor care. Report given to Loren VIDES.?
[2023-04-29] MEDS: predniSONE 10 MG TABLET 20 MG PO (18:23)
[2023-04-29] MEDS: FUROSEMIDE 10 MG/ML inj 80 MG IVP (18:23)
--- NOTE | 2023-04-29 18:53 | PC.NURSE ---
shift note: vss stable. pt maintaining 97% on hiflo O2. LS very dim with bibasilar faint crkls. pt has wet cough. Pt denies pain. arango place @ 1500 today with 950cc out right away. another 1000cc emptied @ 1700 for total 1950cc by 1700. Pt has patent SL rt AC. HR irreg. pt has non pitting l/e edema with scd's in place.
[2023-04-29] MEDS: PARoxetine 20 MG TABLET PO (20:41)
[2023-04-30] VITALS (19 sets, daily range): BP systolic 95–132; BP diastolic 46–73; PULSE 59–83; RESP 16–20; TEMP 36–36.9; O2SAT 92–98
[2023-04-30] MEDS: HYDROCODONE-ACETAMIN 5-325 MG 1 TAB PO ×3 (02:26→21:00)
--- NOTE | 2023-04-30 05:21 | PC.NURSE ---
[id number] Pt slept well during night between cares, requested to sit up in chair at midnight, sat up for approx 2 hours, tolerated very well . ambulated to br with walker, GB, SBA, also tolerated well. encouraged pt to take deep breaths, she's coughing up thick brown phlegm, but pt states she's feeling better and better with every hour that passes. arango in place, patent and draining. states she has some chronic pain in her shoulders, managed with prn medication. denies sob, chest pain, difficultly breathing, lightheaded/dizziness, N/V or headache
[2023-04-30] MEDS: PIPERACILLIN/TAZOBACTAM 3.375 GM in 0.9 % SODIUM CHLORIDE Mini-bag 100 ML IVPB ×3 (06:06→18:15)
[2023-04-30] MEDS: 0.9 % SODIUM CHLORIDE 250 ml IV (06:06)
[2023-04-30] MEDS: OMEPRAZOLE 20 MG CAPSULE DR PO (06:07)
[2023-04-30 06:26] LABS: HCO3 VBG 32 mmol/L (21-28); Lactate* 1.4 mmol/L (0.5-1.9); PCO2 VBG 46 mmHG (40-50); PO2 VBG 23.8 mmHG (25-47); pH VBG 7.449 (7.32-7.43)
[2023-04-30 06:29] LABS: Eosinophils Percent Auto 0.3 % (0.0-7.0); Hematocrit 31.9 % (33.0-51.0); Hemoglobin* 9.9 gm/dL (12.0-16.0); Immature Granulocytes Pct Auto 3.4 %; Lymphocytes Percent Auto 15.6 % (20-44); Mean Corpuscular HGB Conc 31 gm/dL (32-36); Mean Corpuscular Hemoglobin 32 pg (26-34); Mean Corpuscular Volume 102 fL (80-100); Monocytes Percent Auto 9.6 % (0.0-11.0); Neutrophils Percent Auto 71.1 % (42.0-72.0); Platelet Count* 133 K/uL (140-440); RDW Coefficient of Variation % 16.7 % (11.5-15.5); Red Blood Count 3.13 m/uL (4.00-5.20); White Blood Count* 3.85 K/uL (4.50-11.00)
[2023-04-30 06:45] LABS: Albumin* 2.7 g/dL (3.3-5.0); Chloride* 99 mmol/L (96-114)
[2023-04-30 06:46] LABS: Potassium* 3.9 mmol/L (3.6-5.1); Sodium* 139 mmol/L (135-149)
[2023-04-30 06:48] LABS: Anion Gap 9 mEq/L (7-15); Aspartate Amino Transferase* 77 U/L (12-35); Bilirubin Total* 0.6 mg/dL (0.1-1.5); Blood Urea Nitrogen* 27 mg/dL (7-30); Carbon Dioxide* 31 mmol/L (20-32); Creatinine* 1.2 mg/dL (0.5-1.5); Est. Creatinine Clearance* 33.51; Estimated Glomerular Filt Rate 47 ml/min
[2023-04-30 06:49] LABS: Alanine Aminotransferase* 60 U/L (4-35); Alkaline Phosphatase* 105 U/L (40-150); Glucose* 149 mg/dL (60-115); Magnesium* 2.3 mg/dL (1.5-2.6)
[2023-04-30 07:07] LABS: Slide Review Reflex No
--- NOTE | 2023-04-30 07:21 | CRLHL7_ITS ---
For Patients: As a result of the Cures Act, medical imaging exams and procedure reports are released immediately into your electronic medical record. You may view this report before your referring provider. If you have questions, please contact your health care provider. INDICATION: HYPOXIA TECHNIQUE: Chest 1 view COMPARISON: 04/29/2023 FINDINGS: Improved aeration within the chest compared to the prior study. Trace pleural effusions remain. No pneumothorax. Stable mediastinum. IMPRESSION: There has been mild improvement in the multifocal pulmonary infiltrates compared to the prior study. Dictated by José Miguel Mckeon MD @ 04/30/2023 8:31:54 AM (Electronically Signed)
[2023-04-30] MEDS: APIXABAN 5 MG TABLET 2.5 MG PO ×2 (08:49→20:58)
[2023-04-30] MEDS: FERROUS SULFATE 325 MG TABLET PO (08:50)
[2023-04-30] MEDS: LACTOBACILLUS ACIDOPHILUS 1 TABLET 1 TAB PO (08:50)
[2023-04-30] MEDS: FOLIC ACID 1 MG TABLET 3 MG PO (08:50)
[2023-04-30] MEDS: MULTIVITAMIN/MINERALS 1 TABLET 1 TAB PO (08:50)
[2023-04-30] MEDS: VALGANCICLOVIR 450 MG PO (08:50)
--- NOTE | 2023-04-30 08:58 | PM.IMPN1 ---
Progress Note: A&P Assessment and plan (1) Hypoxic respiratory failure: Problem details: Appears primarily to be heart failure. Underlying bronchiectasis, COPD and possibly pneumonia. Treat for hospital-acquired pneumonia. Now on high-flow nasal cannula. Status: Acute (2) Chronic wound: Problem details: Appears stable. Previous evaluation has not shown obvious underlying pathology. Continue outpatient wound care plan in [facility] with [facility]. Status: Acute (3) Severe aortic stenosis: Problem details: Echo done yesterday showed worsening valvular disease, particularly worsening aortic stenosis Status: Chronic (4) Immunosuppression: Problem details: Due to pancytopenia, methotrexate and prednisone therapy. Status: Acute (5) Diastolic congestive heart failure due to valvular disease: Problem details: Most recent echocardiogram obtained on 12/22/2021, normal LV chamber size, mildly increased LV wall thickness, normal global systolic function, EF estimated at 57%. Aortic valve peak velocity 3.8 m/sec, peak gradient 58 mmHg, mean gradient 34 mmHg, aortic valve area 1.13 cm2, dimensionless index 0.32, stroke volume index 47.9 mL per meter squared. Status: Chronic (6) Chronic kidney disease, stage 3a: Problem details: Continue to monitor. Status: Chronic (7) Pancytopenia: Problem details: Uncertain cause. Improved today. Continue to hold methotrexate and monitor. Status: Chronic (8) Protein calorie malnutrition: Problem details: Oral intake is quite good. Status: Chronic (9) Chronic use of steroids: Problem details: Prednisone 7.5 mg daily. Will switch from IV steroids to moderate stress dose oral steroids Status: Chronic (10) Chronic anticoagulation: Problem details: History of unprovoked PEs in the past, and still has paroxysmal atrial fibrillation Status: Chronic (11) Hypotension: Problem details: Blood pressure was better and with diuresis blood pressures are borderline low. Continue to monitor. Continue diuresis as aggressively she tolerates Status: Acute (12) Fever: Problem details: Has fever today despite 4 days of Zosyn. C diff negative. Fever improved. Pending cultures continue vancomycin and Zosyn Status: Acute (13) Urinary tract infection: Problem details: Citrobacter sensitive to Zosyn Status: Acute (14) Paroxysmal atrial fibrillation: Problem details: - sinus rhythm on admission, continue Abixaban Status: Chronic (15) Methotrexate adverse reaction: Problem details: With pancytopenia, elevated transaminases, chronic lung disease I am concerned about methotrexate toxicity. Will stop methotrexate pending outpatient follow-up with Rheumatology. Patient reports apprentice is looking at starting a biologic medicine for her Status: Acute (16) Bacteremia: Problem details: Recheck blood cultures with fever. Previous blood culture is coag-negative staph Status: Acute (17) Fatty liver: Status: Acute Plan Continue in hospital for IV antibiotics, ongoing diuresis. Worsening aortic stenosis will require outpatient cardiology follow-up. Time Spent With Patient Total time spent: Total time spent today is 60 minutes, 40 minutes in coordination of care and discussing with patient and other providers ongoing evaluation and management of hypoxic respiratory failure, heart failure, infections. Subjective Date Seen: 04/30/23 Interval history: 77-year-old admitted to the hospital with 2 days of fever, weakness, confusion. Patient reports she has had some longstanding decline in her overall health with multiple medical problems. This took turn for the worse in the last couple days. She lives at [facility] and was noted by her daughter to be acutely confused and quite weak. She was documented as having a fever at that time as well. Since admission to the hospital her confusion has resolved. She reports she had a good appetite today and has been able to eat for the last few days. She has a chronic cough due to chronic bronchiectasis. She does not think this is worse than usual or that her sputum has changed substantially she is continuously coughing up sputum however. He has a chronic pleural effusion which is relatively stable though question of atelectasis or infiltrate at her lung base adjacent to the pleural effusion. She is not having any new urinary symptoms. She does have pyuria on her urinalysis and culture is pending. COVID test is negative. She has an abdominal wound that has been getting [facility] for the last several months. This is a nonhealing ulcer in her mid abdomen. This is not appear to be infected recently. She has had a history of pancytopenia though this is worse on this hospital admission. She does take methotrexate for rheumatoid arthritis. She is also on prednisone 7.5 mg daily for her rheumatoid arthritis. Again today she reports generally feeling better. She feels like confusion is resolved and she is feeling stronger today. she is not aware of any fever. Her cough is still prominent but she reports unchanged from her baseline. She is ambulating with standby assistance and that is going fairly well. She has been treated with piperacillin tazobactam. She had 1 of 4 blood cultures positive for Gram-positive cocci in clusters this is now appearing to be a contaminant as they are coag-negative. Urine culture shows Citrobacter. Yesterday transferred to CCU for hypoxic respiratory failure. On high-flow nasal cannula. Received diuresis. This morning she is alert. She is tolerating being off nasal cannula briefly. She has had breakfast this morning. Overall she reports feeling better. Exam Narrative: Exam Narrative: Today she is alert and back to baseline mental status. Mood and affect are bright. She is able to carry on a conversation. She is oriented to her circumstances. She remembers almost nothing from yesterday but does remember the day before. Respirations with few fine crackles and coarse breath sounds without consolidation. No wheezing. Cardiovascular: S1, S2 with harsh 2/6 systolic ejection murmur. Abdomen is soft without tenderness. Abdominal wound is without evidence of infection. Extremities without edema. Const: Vital Signs, click to edit/add: Vital Signs - 24 hr 04/29/23 10:35 04/29/23 10:59 04/29/23 13:31 Temperature 100.5 F H 100.5 F H Pulse Rate Pulse Rate [Bilate ral Dorsalis Pedis ] Pulse Rate [Pulse Oximeter] 124 H 124 H Respiratory Rate 38 H 38 H Blood Pressure [Le ft Arm] 166/100 H 166/100 H Pulse Oximetry 90 90 Oxygen Delivery Me thod Nasal Cannula Nasal Cannula Oxygen Flow Rate 2 2 30 Fraction of Inspir ed Oxygen 30 04/29/23 15:00 04/29/23 15:00 04/29/23 15:00 Temperature 98.6 F Pulse Rate Pulse Rate [Bilate ral Dorsalis Pedis ] 96 109 H Pulse Rate [Pulse Oximeter] Respiratory Rate 22 22 Blood Pressure [Le ft Arm] 154/80 H Pulse Oximetry 93 97 Oxygen Delivery Me thod High Flow Nasal Ca nnula High Flow Nasal Ca nnula Oxygen Flow Rate 30 30 Fraction of Inspir ed Oxygen 30 30 04/29/23 15:00 04/29/23 15:30 04/29/23 18:11 Temperature Pulse Rate 76 Pulse Rate [Bilate ral Dorsalis Pedis ] Pulse Rate [Pulse Oximeter] Respiratory Rate Blood Pressure [Le ft Arm] Pulse Oximetry Oxygen Delivery Me thod Oxygen Flow Rate Fraction of Inspir ed Oxygen 30 25 04/29/23 18:39 04/29/23 19:52 04/29/23 19:52 Temperature 97.5 F L 99.0 F Pulse Rate Pulse Rate [Bilate ral Dorsalis Pedis ] 92 Pulse Rate [Pulse Oximeter] 94 Respiratory Rate 22 20 Blood Pressure [Le ft Arm] 116/63 107/63 Pulse Oximetry 97 97 Oxygen Delivery Me thod High Flow Nasal Ca nnula High Flow Nasal Ca nnula Oxygen Flow Rate 30 30 Fraction of Inspir ed Oxygen 25 25 25 04/29/23 20:46 04/29/23 20:46 04/29/23 21:58 Temperature 98.5 F Pulse Rate Pulse Rate [Bilate ral Dorsalis Pedis ] Pulse Rate [Pulse Oximeter] 87 Respiratory Rate 20 Blood Pressure [Le ft Arm] 103/65 Pulse Oximetry 96 Oxygen Delivery Me thod High Flow Nasal Ca nnula Oxygen Flow Rate 30 Fraction of Inspir ed Oxygen 25 25 25 04/29/23 21:58 04/29/23 22:34 04/29/23 22:34 Temperature 97.0 F L Pulse Rate Pulse Rate [Bilate ral Dorsalis Pedis ] Pulse Rate [Pulse Oximeter] 82 Respiratory Rate 20 20 20 Blood Pressure [Le ft Arm] 96/50 L Pulse Oximetry 95 93 Oxygen Delivery Me thod High Flow Nasal Ca nnula High Flow Nasal Ca nnula Oxygen Flow Rate 30 30 Fraction of Inspir ed Oxygen 25 25 04/29/23 23:00 04/29/23 23:46 04/29/23 23:46 Temperature 97.6 F Pulse Rate 67 Pulse Rate [Bilate ral Dorsalis Pedis ] Pulse Rate [Pulse Oximeter] 62 Respiratory Rate 26 H Blood Pressure [Le ft Arm] 107/53 L Pulse Oximetry 93 Oxygen Delivery Me thod High Flow Nasal Ca nnula Oxygen Flow Rate 30 Fraction of Inspir ed Oxygen 25 25 04/30/23 01:59 04/30/23 01:59 04/30/23 04:00 Temperature 96.8 F L Pulse Rate Pulse Rate [Bilate ral Dorsalis Pedis ] Pulse Rate [Pulse Oximeter] 69 Respiratory Rate 18 Blood Pressure [Le ft Arm] 102/52 L Pulse Oximetry 96 Oxygen Delivery Me thod High Flow Nasal Ca nnula Oxygen Flow Rate 30 Fraction of Inspir ed Oxygen 25 25 25 04/30/23 04:00 04/30/23 06:00 04/30/23 06:00 Temperature 97.6 F 97.6 F Pulse Rate Pulse Rate [Bilate ral Dorsalis Pedis ] Pulse Rate [Pulse Oximeter] 61 66 Respiratory Rate 16 16 Blood Pressure [Le ft Arm] 95/46 L 104/53 L Pulse Oximetry 97 97 Oxygen Delivery Me thod High Flow Nasal Ca nnula High Flow Nasal Ca nnula Oxygen Flow Rate 30 30 Fraction of Inspir ed Oxygen 25 25 25 04/30/23 07:00 04/30/23 07:40 04/30/23 08:00 Temperature Pulse Rate 59 L Pulse Rate [Bilate ral Dorsalis Pedis ] Pulse Rate [Pulse Oximeter] Respiratory Rate 18 Blood Pressure [Le ft Arm] Pulse Oximetry 98 Oxygen Delivery Me thod High Flow Nasal Ca nnula Oxygen Flow Rate 30 Fraction of Inspir ed Oxygen 25 25 04/30/23 08:02 Temperature 97.8 F Pulse Rate Pulse Rate [Bilate ral Dorsalis Pedis ] Pulse Rate [Pulse Oximeter] 69 Respiratory Rate 18 Blood Pressure [Le ft Arm] 98/55 L Pulse Oximetry 98 Oxygen Delivery Me thod High Flow Nasal Ca nnula Oxygen Flow Rate Fraction of Inspir ed Oxygen Documenting provider has reviewed patient's vital signs: yes Labs Labs: Laboratory Results - last 24 hr 04/29/23 04/29/23 04/29/23 10:36 10:36 10:36 WBC 6.46 RBC 3.63 L Hgb 11.7 L Hct 37.8 MCV 104 H MCH 32 MCHC 31 L RDW Coeff of Nav[place] 16.8 H Plt Count 199 Neut % (Auto) 56.0 Lymph % (Auto) 26.2 [place] % (Auto) 9.4 Eos % (Auto) 3.9 Baso % (Auto) 0.3 Neut # (Auto) 3.62 Lymph # (Auto) 1.69 [place] # (Auto) 0.60 Eos # (Auto) 0.25 Baso # (Auto) 0.02 Abs Immat Gran (auto) 0.27 Imm/Tot Granulo (auto) 4.2 Diff Slide Review Acceptable Review VBG pH 7.332 VBG pCO2 45 VBG pO2 24.3 L VBG HCO3 24 Sodium Cancelled 141 Potassium Cancelled 3.7 Chloride Cancelled Carbon Dioxide Anion Gap BUN Creatinine Estimated Creat Clear Estimated GFR Glucose Lactate Calcium Magnesium Total Bilirubin Direct Bilirubin AST ALT Alkaline Phosphatase Troponin I C-Reactive Protein NT-Pro-B Natriuret Pep Total Protein Albumin Procalcitonin Stl C. diff Tox B Gene Stl C. diff [id number] 04/29/23 04/29/23 04/29/23 10:36 10:36 10:36 WBC RBC Hgb Hct MCV MCH MCHC RDW Coeff of [place] Plt Count Neut % (Auto) Lymph % (Auto) [place] % (Auto) Eos % (Auto) Baso % (Auto) Neut # (Auto) Lymph # (Auto) [place] # (Auto) Eos # (Auto) Baso # (Auto) Abs Immat Gran (auto) Imm/Tot Granulo (auto) Diff Slide Review VBG pH VBG pCO2 VBG pO2 VBG HCO3 Sodium Potassium Chloride 106 Carbon Dioxide Cancelled 22 Anion Gap Cancelled 13 BUN Cancelled Creatinine Estimated Creat Clear Estimated GFR Glucose Lactate Calcium Magnesium Total Bilirubin Direct Bilirubin AST ALT Alkaline Phosphatase Troponin I C-Reactive Protein NT-Pro-B Natriuret Pep Total Protein Albumin Procalcitonin Stl C. diff Tox B Gene Stl C. diff [id number] 04/29/23 04/29/23 04/29/23 10:36 10:36 10:36 WBC RBC Hgb Hct MCV MCH MCHC RDW Coeff of [place] Plt Count Neut % (Auto) Lymph % (Auto) [place] % (Auto) Eos % (Auto) Baso % (Auto) Neut # (Auto) Lymph # (Auto) [place] # (Auto) Eos # (Auto) Baso # (Auto) Abs Immat Gran (auto) Imm/Tot Granulo (auto) Diff Slide Review VBG pH VBG pCO2 VBG pO2 VBG HCO3 Sodium Potassium Chloride Carbon Dioxide Anion Gap BUN 23 Creatinine Cancelled 1.0 Estimated Creat Clear Cancelled 40.21 Estimated GFR Cancelled Glucose Lactate Calcium Magnesium Total Bilirubin Direct Bilirubin AST ALT Alkaline Phosphatase Troponin I C-Reactive Protein NT-Pro-B Natriuret Pep Total Protein Albumin Procalcitonin Stl C. diff Tox B Gene Stl C. diff [id number] 04/29/23 04/29/23 04/29/23 10:36 10:36 10:36 WBC RBC Hgb Hct MCV MCH MCHC RDW Coeff of [place] Plt Count Neut % (Auto) Lymph % (Auto) [place] % (Auto) Eos % (Auto) Baso % (Auto) Neut # (Auto) Lymph # (Auto) [place] # (Auto) Eos # (Auto) Baso # (Auto) Abs Immat Gran (auto) Imm/Tot Granulo (auto) Diff Slide Review VBG pH VBG pCO2 VBG pO2 VBG HCO3 Sodium Potassium Chloride Carbon Dioxide Anion Gap BUN Creatinine Estimated Creat Clear Estimated GFR 59 Glucose Cancelled 84 Lactate Calcium Cancelled 8.3 L Magnesium Total Bilirubin Direct Bilirubin AST ALT Alkaline Phosphatase Troponin I 0.03 C-Reactive Protein 5.7 H NT-Pro-B Natriuret Pep 7770 Total Protein Albumin Procalcitonin Cancelled Stl C. diff Tox B Gene Stl C. diff [id number] 04/29/23 04/29/23 04/30/23 10:36 14:59 06:10 WBC 3.85 L RBC 3.13 L Hgb 9.9 L Hct 31.9 L MCV 102 H MCH 32 MCHC 31 L RDW Coeff of Nav[place] 16.7 H Plt Count 133 L Neut % (Auto) 71.1 Lymph % (Auto) 15.6 L [place] % (Auto) 9.6 Eos % (Auto) 0.3 Baso % (Auto) 0.0 Neut # (Auto) 2.70 Lymph # (Auto) 0.60 L [place] # (Auto) 0.40 Eos # (Auto) 0.00 Baso # (Auto) 0.00 Abs Immat Gran (auto) 0.10 Imm/Tot Granulo (auto) 3.4 Diff Slide Review VBG pH 7.449 H VBG pCO2 46 VBG pO2 23.8 L VBG HCO3 32 H Sodium 139 Potassium 3.9 Chloride 99 Carbon Dioxide 31 Anion Gap 9 BUN 27 Creatinine 1.2 Estimated Creat Clear 33.51 Estimated GFR 47 Glucose 149 H Lactate 1.4 Calcium 8.0 L Magnesium 2.3 Total Bilirubin 0.6 Direct Bilirubin 0.0 AST 77 H ALT 60 H Alkaline Phosphatase 105 Troponin I C-Reactive Protein NT-Pro-B Natriuret Pep Total Protein 5.0 L Albumin 2.7 L Procalcitonin 0.38 Stl C. diff Tox B Gene Negative Stl C. diff [id number] PRESUMPTIVE NEGATIVE Imaging Echo: Radiologist's impression: ECHOCARDIOGRAM ? ? BRYCE STALLINGS : 1945 77 years Study Date: 04/29/2023 4:23:22 PM Gender: F BP: 154/80 mmHg Height: 160.00 cm BSA: 1.75 m?? Weight: 72.00 kg Tech: CESAR Referring MD: LEONOR FLEMING Site: [facility] Reading Location: [facility] Patient Location: Inpatient. ? ? Procedure: 2D, Color Doppler and Spectral Doppler. ? Indication for study: Heart failure (HC); Aortic stenosis ? ? Cardiac Rhythm: Regular.Study quality: Fair. ? Final Impressions: 1. Normal LV size, not well visualized wall thickness, normal global systolic function with an estimated EF of 60 - 65%. 2. Right ventricular cavity size is normal, global systolic RV function is normal. 3. Moderately enlarged left atrium. 4. The aortic valve is not well visualized, sclerotic and calcified, severe stenosis and no regurgitation. The aortic valve peak velocity is 3.9 m/s, the peak gradient is 60 mmHg, and the mean gradient is 39 mmHg. The aortic valve area is 0.67 cm?? with a dimensionless index of 0.22. The stroke volume index is 28.0 ml/m??. 5. The mitral valve is sclerotic, mild to moderate mitral regurgitation. There is a mean diastolic gradient of 6 mmHg at a HR of 85 bpm. 6. Mild-moderate tricuspid regurgitation. 7. Moderately increased estimated pulmonary systolic pressures by tricuspid regurgitation velocity and right atrial pressure (~49 mmHg). 8. The inferior vena cava is normal sized, respiratory size variation less than 50%. 9. Findings discussed with Dr. Rodgers. ? Comparison ? When compared to the report of the prior study of 06/25/22, the is now severe, there is more MR and TR, and the estimated PA systolic pressure is higher. Chamber Sizes and Function Normal left ventricular size, not well visualized wall thickness, normal global systolic function with an estimated EF of 60 - 65%. Left atrial size is moderately enlarged. Right ventricular cavity size is normal, global systolic RV function is normal. RV wall thickness is normal. The right atrium is not well visualized. The pulmonary artery is of normal size and origin. The sinus of Valsalva is normal sized. The ascending aorta is normal sized. ? Valves, RV Pressures and Diastolic Function ? The aortic valve is not well visualized , sclerotic and calcified, severe stenosis and no regurgitation. The mitral valve is sclerotic, mild to moderate mitral regurgitation. Mitral annular calcification is present. Indeterminate pattern of LV diastolic filling. The tricuspid valve is normal in structure. Tricuspid regurgitation is mild-moderate. The tricuspid regurgitant velocity is 3.2 m/s, the estimated right ventricular systolic pressure is 41 mmHg plus right atrial pressure. There is moderately increased estimated pulmonary pressure by tricuspid regurgitation velocity and right atrial pressure. The pulmonic valve is not well visualized. Mild pulmonary regurgitation. ? Masses, Effusion, Shunts There is no pericardial effusion. The inferior vena cava is normal sized, respiratory size variation less than 50%. No left to right shunting was detected by limited color flow Doppler interrogation of the interatrial septum. ? MEASUREMENTS AND CALCULATIONS ? 2-D Measurements and LV Function: ? LVID (d) 3.9 cm LV FS% (2D) 29 % LVID (s) 2.8 cm LVOT diameter 2.0 cm LVPW (d) 1.4 cm HR 93 bpm Ao Sinus 2.8 cm LA Vol index 38 ml/m2 Asc Ao 3.4 cm LA 4.4 cm ? Diastology: Mitral Tissue Doppler Pulmonary veins E Peak 1.8 m/s e', Septum 0.04 m/s Pulm s 51.4 cm/s A Peak 1.5 m/s e', Lateral 0.06 m/s Pulm d 31.7 cm/s E/A 1.2 E/e' Average 36.12 Pulm s/d ratio 1.62 DT 179 msec ? Aortic Valve: ? Vmax 3.9 m/s RADHA (V) 0.67 cm?? AI P 1/2 369 msec VTI 0.73 m RADHA (I) 0.67 cm?? LVOT V max 0.8 m/s Max PG 60 mmHg LVOT VTI 0.16 m Mean PG 39 mmHg SV 49 ml Dim Index 0.22 SV index 28 ml/m?? CO 4.6 l/min CI 2.6 l/min/m??
[2023-04-30] MEDS: SODIUM CHLORIDE 0.9 % (FLUSH) 10 ML SYRINGE 5 ML IVF ×2 (09:24→11:46)
[2023-04-30] MEDS: METOPROLOL SUCCINATE (XL) 25 MG TAB PO ×2 (09:24→20:58)
[2023-04-30] MEDS: predniSONE 10 MG TABLET 20 MG PO ×2 (09:25→18:15)
[2023-04-30] MEDS: FUROSEMIDE 10 MG/ML inj IVP (10:25)
[2023-04-30] MEDS: POTASSIUM CHLORIDE 10 MEQ CAPSULE ER PO (10:26)
[2023-04-30] MEDS: FUROSEMIDE 20 MG TABLET PO (13:36)
[2023-04-30] MEDS: POTASSIUM CHLORIDE 10 MEQ CAPSULE ER 20 MEQ PO (16:17)
[2023-04-30] MEDS: FUROSEMIDE 10 MG/ML inj 20 MG IVP (18:14)
--- NOTE | 2023-04-30 18:49 | PC.NURSE ---
End of shift-- Very pleasant and cooperative, alert and oriented patient. VSS, though mildly hypotensive this morning and pt is afebrile. SPO2 maintained >90% on high flow n.c. at 30L with 21% FIO2. She c/o some mild arthritis pain this morning and was given a [place] once today with stated relief. Crackles auscultated in bilateral bases this afternoon with expiratory wheezing noted. Pt has a frequent, productive cough with clear sputum which she stated has cleared tremendously since yesterday. Telemetry shows NSR with occasional PACs. She denied nausea and ate 50-100% of 2 meals plus an ensure today and tolerated it well. Pt reported a BM overnight last night. [place] is patent and drained adequate amounts of clear, yellow urine today. She was up to the chair and back with SBA and walker and tolerated it well. Report to oncoming shift.
[2023-04-30] MEDS: PARoxetine 20 MG TABLET PO (20:58)
[2023-04-30] MEDS: NYSTATIN POWDER 1 APPLIC TOPICAL (21:00)
[2023-05-01] VITALS (19 sets, daily range): BP systolic 106–128; BP diastolic 55–63; PULSE 54–97; RESP 20–24; TEMP 35.7–37; O2SAT 91–98
[2023-05-01] MEDS: PIPERACILLIN/TAZOBACTAM 3.375 GM in 0.9 % SODIUM CHLORIDE Mini-bag 100 ML IVPB ×5 (00:16→23:40)
[2023-05-01] MEDS: 0.9 % SODIUM CHLORIDE 250 ml IV ×2 (00:22→23:41)
--- NOTE | 2023-05-01 05:42 | PC.NURSE ---
end of shift - Pt pleasant and cooperative during shift. Pt did not ambulate from bed during shift. Pt has arango catheter in place and did not have a BM during shift. Pt denied pain during shift. Pt observed to sleep during majority of shift. Resting comfortably at end of shift.
[2023-05-01] MEDS: OMEPRAZOLE 20 MG CAPSULE DR PO (06:18)
[2023-05-01 07:05] LABS: Lactate* 2.7 mmol/L (0.5-1.9)
[2023-05-01 07:22] LABS: Basophils Absolute Auto 0.01 K/uL (0.00-0.30); Basophils Percent Auto 0.2 % (0.0-3.0); Eosinophils Absolute Auto 0.02 K/uL (0.00-0.50); Eosinophils Percent Auto 0.4 % (0.0-7.0); Hematocrit 34.5 % (33.0-51.0); Hemoglobin* 10.8 gm/dL (12.0-16.0); Immature Granulocytes Abs Auto 0.18 K/uL (0.00-0.30); Immature Granulocytes Pct Auto 3.5 %; Lymphocytes Percent Auto 13.9 % (20-44); Mean Corpuscular HGB Conc 31 gm/dL (32-36); Mean Corpuscular Hemoglobin 32 pg (26-34); Mean Corpuscular Volume 102 fL (80-100); Monocytes Percent Auto 9.2 % (0.0-11.0); Neutrophils Percent Auto 72.8 % (42.0-72.0); Platelet Count* 160 K/uL (140-440); RDW Coefficient of Variation % 16.8 % (11.5-15.5); Red Blood Count 3.38 m/uL (4.00-5.20); White Blood Count* 5.19 K/uL (4.50-11.00)
[2023-05-01 08:05] LABS: Slide Review Reflex No
[2023-05-01 08:20] LABS: Chloride* 104 mmol/L (96-114)
[2023-05-01] MEDS: POTASSIUM CHLORIDE 10 MEQ CAPSULE ER PO (08:20)
[2023-05-01] MEDS: FERROUS SULFATE 325 MG TABLET PO (08:20)
[2023-05-01 08:21] LABS: Potassium* 3.7 mmol/L (3.6-5.1)
[2023-05-01] MEDS: FUROSEMIDE 20 MG TABLET 40 MG PO ×2 (08:21→14:43)
[2023-05-01 08:23] LABS: Anion Gap 8 mEq/L (7-15); Carbon Dioxide* 28 mmol/L (20-32); Est. Creatinine Clearance* 40.21; Estimated Glomerular Filt Rate 59 ml/min; Sodium* 140 mmol/L (135-149)
[2023-05-01] MEDS: HYDROCODONE-ACETAMIN 5-325 MG 1 TAB PO ×2 (08:23→21:23)
[2023-05-01 08:24] LABS: Blood Urea Nitrogen* 28 mg/dL (7-30); Calcium* 8.4 mg/dL (8.4-10.6); Glucose* 96 mg/dL (60-115); Magnesium* 2.3 mg/dL (1.5-2.6)
[2023-05-01] MEDS: predniSONE 10 MG TABLET 20 MG PO ×2 (08:24→18:12)
[2023-05-01] MEDS: FOLIC ACID 1 MG TABLET 3 MG PO (08:25)
[2023-05-01] MEDS: METOPROLOL SUCCINATE (XL) 25 MG TAB PO ×2 (08:25→21:21)
[2023-05-01] MEDS: LACTOBACILLUS ACIDOPHILUS 1 TABLET 1 TAB PO (08:26)
[2023-05-01] MEDS: APIXABAN 5 MG TABLET 2.5 MG PO ×2 (08:26→21:21)
[2023-05-01] MEDS: VALGANCICLOVIR 450 MG PO (08:27)
[2023-05-01] MEDS: MULTIVITAMIN/MINERALS 1 TABLET 1 TAB PO (08:27)
[2023-05-01] MEDS: SODIUM CHLORIDE 0.9 % (FLUSH) 10 ML SYRINGE 5 ML IVF ×2 (08:32→21:22)
[2023-05-01] MEDS: IPRAT-ALBUT 0.5-2.5 MG/3 ML NEB 1 NEB IH (08:39)
--- NOTE | 2023-05-01 13:19 | PM.IMPN1 ---
Progress Note: A&P Assessment and plan (1) Hypoxic respiratory failure: Problem details: Appears primarily to be heart failure. Contributing factors include bronchiectasis, COPD and possible pneumonia. Status: Acute (2) Chronic wound: Problem details: Appears stable. Previous evaluation has not shown obvious underlying pathology. Continue outpatient wound care plan in [facility] with [facility]. Status: Acute (3) Severe aortic stenosis: Problem details: Echo done yesterday showed worsening valvular disease, particularly worsening aortic stenosis. Outpatient follow-up with Cardiology Status: Chronic (4) Immunosuppression: Problem details: Due to pancytopenia, methotrexate and prednisone therapy. Status: Acute (5) Diastolic congestive heart failure due to valvular disease: Problem details: Echocardiogram on this admission shows now severe aortic stenosis with worsening mitral valve disease as well. Outpatient follow-up with Cardiology Status: Chronic (6) Chronic kidney disease, stage 3a: Problem details: Continue to monitor. Status: Chronic (7) Pancytopenia: Problem details: Uncertain cause. Improved today. Continue to hold methotrexate and monitor. Status: Chronic (8) Protein calorie malnutrition: Problem details: Oral intake is quite good. Status: Chronic (9) Chronic use of steroids: Problem details: Prednisone 7.5 mg daily. Taper stress dose steroids Status: Chronic (10) Chronic anticoagulation: Problem details: History of unprovoked PEs in the past, and still has paroxysmal atrial fibrillation. Continue apixaban Status: Chronic (11) Hypotension: Problem details: Blood pressure was better and with diuresis blood pressures are borderline low. Continue to monitor. Continue diuresis as aggressively she tolerates. Caution due to severe Status: Acute (12) Fever: Problem details: Fever appears to have resolved. Status: Acute (13) Urinary tract infection: Problem details: Citrobacter sensitive to Zosyn Status: Acute (14) Paroxysmal atrial fibrillation: Problem details: - sinus rhythm on admission, continue Abixaban Status: Chronic (15) Methotrexate adverse reaction: Problem details: With pancytopenia, elevated transaminases, chronic lung disease I am concerned about methotrexate toxicity. Will stop methotrexate pending outpatient follow-up with Rheumatology. Patient reports seafood technology specialist is looking at starting a biologic medicine for her Status: Acute (16) Bacteremia: Problem details: Recheck blood cultures with fever. Previous blood culture is micrococcus, probably a contaminant Status: Acute (17) Fatty liver: Problem details: Stable Status: Acute Plan Continue in hospital for additional IV antibiotics and monitoring of blood counts and electrolytes, fever and respiratory status. Possible discharge to home tomorrow if clinically doing well. Time Spent With Patient Total time spent: Total time spent today is 40 minutes, 30 minutes in coordination of care discussing with patient other providers ongoing evaluation and management of hypoxic respiratory failure, heart failure, urinary tract infection, bronchiectasis Subjective Date Seen: 05/01/23 Interval history: 77-year-old admitted to the hospital with 2 days of fever, weakness, confusion. Patient reports she has had some longstanding decline in her overall health with multiple medical problems. This took turn for the worse in the last couple days. She lives at [facility] [place] and was noted by her daughter to be acutely confused and quite weak. She was documented as having a fever at that time as well. Since admission to the hospital her confusion has resolved. She reports she had a good appetite today and has been able to eat for the last few days. She has a chronic cough due to chronic bronchiectasis. She does not think this is worse than usual or that her sputum has changed substantially she is continuously coughing up sputum however. He has a chronic pleural effusion which is relatively stable though question of atelectasis or infiltrate at her lung base adjacent to the pleural effusion. She is not having any new urinary symptoms. She does have pyuria on her urinalysis and culture is pending. COVID test is negative. She has an abdominal wound that has been getting [facility] the last several months. This is a nonhealing ulcer in her mid abdomen. This is not appear to be infected recently. She has had a history of pancytopenia though this is worse on this hospital admission. She does take methotrexate for rheumatoid arthritis. She is also on prednisone 7.5 mg daily for her rheumatoid arthritis. Again today she reports generally feeling better. She feels like confusion is resolved and she is feeling stronger today. she is not aware of any fever. Her cough is still prominent but she reports unchanged from her baseline. She is ambulating with standby assistance and that is going fairly well. She has been treated with piperacillin tazobactam. She had 1 of 4 blood cultures positive for Gram-positive cocci in clusters. This appears to be micrococcus. Probably a contaminant. Urine culture shows Citrobacter sensitive to piperacillin tazobactam Recovering well from hypoxic respiratory failure 2 days ago. Has not needed supplemental oxygen for the last day. Has been getting high-flow on 21% oxygen for humidity. With this she reports that she is sleeping better and having less episodes of waking up at night with coughing and trouble clearing her mucous. She is walking in the hallway. She feels strong and did not get dyspneic today. She is eating well. Exam Narrative: Exam Narrative: She is alert and appears in no distress. She is oriented to her circumstances and gives her own history. Respirations with few basilar crackles otherwise clear. Cardiovascular: S1, S2, 2/6 harsh systolic ejection murmur. Abdomen is soft without tenderness or mass. Extremities without edema. Prominent bruising on the extremities is chronic. Const: Vital Signs, click to edit/add: Vital Signs - 24 hr 04/30/23 14:00 04/30/23 15:00 04/30/23 15:00 Temperature Pulse Rate Pulse Rate [Pulse Oximeter] 82 Respiratory Rate 16 Blood Pressure [Le ft Arm] Pulse Oximetry 95 Oxygen Delivery Me thod High Flow Nasal Ca nnula Oxygen Flow Rate 30 Fraction of Inspir ed Oxygen 21 21 04/30/23 16:00 04/30/23 16:10 04/30/23 16:18 Temperature 98.5 F Pulse Rate 77 Pulse Rate [Pulse Oximeter] 82 Respiratory Rate 16 Blood Pressure [Le ft Arm] 116/58 L Pulse Oximetry 96 Oxygen Delivery Me thod Room Air Oxygen Flow Rate Fraction of Inspir ed Oxygen 21 04/30/23 18:00 04/30/23 20:55 04/30/23 20:55 Temperature 98.4 F Pulse Rate Pulse Rate [Pulse Oximeter] 82 Respiratory Rate 16 Blood Pressure [Le ft Arm] 119/73 Pulse Oximetry 97 Oxygen Delivery Me thod Room Air Oxygen Flow Rate 30 Fraction of Inspir ed Oxygen 21 21 21 04/30/23 21:46 04/30/23 21:46 04/30/23 22:00 Temperature Pulse Rate 78 Pulse Rate [Pulse Oximeter] 83 Respiratory Rate 16 Blood Pressure [Le ft Arm] Pulse Oximetry Oxygen Delivery Me thod Oxygen Flow Rate Fraction of Inspir ed Oxygen 21 04/30/23 23:00 05/01/23 00:00 05/01/23 00:00 Temperature Pulse Rate Pulse Rate [Pulse Oximeter] 67 Respiratory Rate 20 20 Blood Pressure [Le ft Arm] 106/55 L Pulse Oximetry 95 95 Oxygen Delivery Me thod High Flow Nasal Ca nnula High Flow Nasal Ca nnula Oxygen Flow Rate 30 30 Fraction of Inspir ed Oxygen 21 21 21 05/01/23 02:00 05/01/23 02:47 05/01/23 04:00 Temperature Pulse Rate Pulse Rate [Pulse Oximeter] 54 L Respiratory Rate 24 Blood Pressure [Le ft Arm] 111/55 L Pulse Oximetry 95 Oxygen Delivery Me thod High Flow Nasal Ca nnula Oxygen Flow Rate 30 Fraction of Inspir ed Oxygen 21 21 21 05/01/23 05:41 05/01/23 07:00 05/01/23 07:00 Temperature Pulse Rate Pulse Rate [Pulse Oximeter] 65 Respiratory Rate 22 22 Blood Pressure [Le ft Arm] Pulse Oximetry 91 Oxygen Delivery Me thod High Flow Nasal Ca nnula Oxygen Flow Rate 30 Fraction of Inspir ed Oxygen 21 21 05/01/23 07:00 05/01/23 07:23 05/01/23 08:00 Temperature 98.6 F Pulse Rate 62 Pulse Rate [Pulse Oximeter] 65 Respiratory Rate 22 Blood Pressure [Le ft Arm] 121/62 Pulse Oximetry 91 Oxygen Delivery Me thod High Flow Nasal Ca nnula Oxygen Flow Rate 30 30 Fraction of Inspir ed Oxygen 21 21 05/01/23 09:00 05/01/23 11:00 Temperature Pulse Rate Pulse Rate [Pulse Oximeter] Respiratory Rate Blood Pressure [Le ft Arm] Pulse Oximetry Oxygen Delivery Me thod Oxygen Flow Rate Fraction of Inspir ed Oxygen 21 21 Documenting provider has reviewed patient's vital signs: yes Labs Labs: Laboratory Results - last 24 hr 05/01/23 06:30 WBC 5.19 RBC 3.38 L Hgb 10.8 L Hct 34.5 MCV 102 H MCH 32 MCHC 31 L RDW Coeff of Navneet 16.8 H Plt Count 160 Neut % (Auto) 72.8 H Lymph % (Auto) 13.9 L [place] % (Auto) 9.2 Eos % (Auto) 0.4 Baso % (Auto) 0.2 Neut # (Auto) 3.80 Lymph # (Auto) 0.70 L [place] # (Auto) 0.50 Eos # (Auto) 0.02 Baso # (Auto) 0.01 Abs Immat Gran (auto) 0.18 Imm/Tot Granulo (auto) 3.5 Sodium 140 Potassium 3.7 Chloride 104 Carbon Dioxide 28 Anion Gap 8 BUN 28 Creatinine 1.0 Estimated Creat Clear 40.21 Estimated GFR 59 Glucose 96 Lactate 2.7 H Calcium 8.4 Magnesium 2.3
--- NOTE | 2023-05-01 20:01 | PC.NURSE ---
HFNC decreased to 20LPM/21% FiO2, pt O2 sats fluctutating between 94-98%. Ongoing persistent cough, pt producing thinner clear sputum. PRN duo-neb given this am, pt states she uses nebs BID at home. 2 stools, somewhat loose. Pt educated on increasing fermented foods/probiotics into her diet. Domo simms'indira, pt has voided x2 since removal.
[2023-05-01] MEDS: PARoxetine 20 MG TABLET PO (21:22)
[2023-05-01] MEDS: NYSTATIN POWDER 1 APPLIC TOPICAL (21:23)
[2023-05-02 01:00] VITALS: O2SAT 98
[2023-05-02 01:13] VITALS: O2SAT 98
[2023-05-02 03:00] VITALS: BP 111/70; PULSE 68; RESP 20; TEMP 35.8; O2SAT 95
[2023-05-02 04:01] VITALS: O2SAT 96
[2023-05-02] MEDS: OMEPRAZOLE 20 MG CAPSULE DR PO (06:19)
[2023-05-02] MEDS: PIPERACILLIN/TAZOBACTAM 3.375 GM in 0.9 % SODIUM CHLORIDE Mini-bag 100 ML IVPB (06:19)
[2023-05-02 06:36] LABS: Basophils Absolute Auto 0.01 K/uL (0.00-0.30); Basophils Percent Auto 0.2 % (0.0-3.0); Eosinophils Absolute Auto 0.01 K/uL (0.00-0.50); Eosinophils Percent Auto 0.2 % (0.0-7.0); Hematocrit 32.1 % (33.0-51.0); Hemoglobin* 9.9 gm/dL (12.0-16.0); Immature Granulocytes Abs Auto 0.21 K/uL (0.00-0.30); Immature Granulocytes Pct Auto 3.6 %; Lymphocytes Percent Auto 13.7 % (20-44); Mean Corpuscular HGB Conc 31 gm/dL (32-36); Mean Corpuscular Hemoglobin 31 pg (26-34); Mean Corpuscular Volume 102 fL (80-100); Neutrophils Percent Auto 72.3 % (42.0-72.0); Platelet Count* 170 K/uL (140-440); RDW Coefficient of Variation % 16.6 % (11.5-15.5); Red Blood Count 3.15 m/uL (4.00-5.20); White Blood Count* 5.78 K/uL (4.50-11.00)
[2023-05-02 06:44] LABS: Slide Review Reflex No
--- NOTE | 2023-05-02 06:56 | PC.NURSE ---
End of shift - Pt alert, oriented, and cooperative during shift. Pt up to bathroom with walker and gait belt. Pt reported feeling stronger during ambulation. Pt tolerating high flow and regular diet. Pt reported pain in R hip described as burning. Interventions given per MAR with verbalized relief. Pt observed to sleep during shift. Pt resting comfortably in bed at end of shift.
[2023-05-02 07:00] VITALS: BP 125/64; PULSE 61; PULSE 68; RESP 14; RESP 20; O2SAT 97
[2023-05-02 07:08] LABS: Chloride* 103 mmol/L (96-114); Potassium* 3.7 mmol/L (3.6-5.1); Sodium* 138 mmol/L (135-149)
[2023-05-02 07:10] LABS: Creatinine* 0.9 mg/dL (0.5-1.5); Est. Creatinine Clearance* 40.21; Estimated Glomerular Filt Rate 67 ml/min
[2023-05-02 07:11] LABS: Anion Gap 5 mEq/L (7-15); Blood Urea Nitrogen* 29 mg/dL (7-30); Calcium* 8.3 mg/dL (8.4-10.6); Carbon Dioxide* 30 mmol/L (20-32); Glucose* 93 mg/dL (60-115)
[2023-05-02] MEDS: POTASSIUM CHLORIDE 10 MEQ CAPSULE ER PO (08:12)
[2023-05-02] MEDS: FUROSEMIDE 20 MG TABLET 40 MG PO (08:12)
[2023-05-02] MEDS: FERROUS SULFATE 325 MG TABLET PO (08:12)
[2023-05-02] MEDS: predniSONE 10 MG TABLET PO (08:14)
[2023-05-02] MEDS: IPRAT-ALBUT 0.5-2.5 MG/3 ML NEB 1 NEB IH (08:14)
--- NOTE | 2023-05-02 08:22 | PM.DS1 ---
DS: Providers Provider Date Seen: 05/02/23 Date of admission: 04/26/23 17:48 Primary care physician: Kyle Healy MD Admitting Clinician: Bree Rose MD Attending Physician on discharge: Mian Vasquez MD Date of Discharge: 05/02/23 DS: Diagnosis Discharge Diagnosis (1) Sepsis: Status: Acute Problem details: On admission and early in hospital stay patient had sepsis with fever and hypotension. Started on Zosyn and aggressive fluid resuscitation. Subsequently the source was felt to be urinary tract infection with Citrobacter. (2) Hypoxic respiratory failure: Status: Acute Problem details: Appears primarily to be heart failure. Contributing factors include bronchiectasis, COPD and possible pneumonia. (3) Urinary tract infection: Status: Acute Problem details: Citrobacter sensitive to Zosyn (4) Immunosuppression: Status: Acute Problem details: Due to pancytopenia, methotrexate and prednisone therapy. (5) Pancytopenia: Status: Chronic Problem details: Uncertain cause. Improved today. Continue to hold methotrexate and monitor. May also be a side effect of valganciclovir. (6) Protein calorie malnutrition: Status: Chronic Problem details: Oral intake has been good once she recovered from her acute illness. (7) Chronic use of steroids: Status: Chronic Problem details: Prednisone 7.5 mg daily. Received stress dose steroids with sepsis. Tapered back to outpatient prednisone (8) Chronic anticoagulation: Status: Chronic Problem details: History of unprovoked PEs in the past, and still has paroxysmal atrial fibrillation. Continue apixaban (9) Mitral stenosis: Status: Chronic Problem details: During his hospital stay echocardiogram showed progression of mitral stenosis (10) Bacteremia: Status: Acute Problem details: Recheck blood cultures with fever. Previous blood culture is micrococcus, probably a contaminant (11) Methotrexate adverse reaction: Status: Acute Problem details: With pancytopenia, elevated transaminases, chronic lung disease I am concerned about methotrexate toxicity. Will stop methotrexate pending outpatient follow-up with Rheumatology. Patient reports project associate is looking at starting a biologic medicine for her (12) Fatty liver: Status: Acute Problem details: Stable (13) Chronic wound: Status: Acute Problem details: Appears stable. Previous evaluation has not shown obvious underlying pathology. Continue outpatient wound care plan in coordination with [facility]. (14) Paroxysmal atrial fibrillation: Status: Chronic Problem details: - sinus rhythm on admission, continue Abixaban and metoprolol for rate control (15) Bronchiectasis: Status: Acute Problem details: Continue outpatient medications. Continue to work on clearing secretions. Also treat for hospital-acquired pneumonia (16) Severe aortic stenosis: Status: Chronic Problem details: Echo done yesterday showed worsening valvular disease, particularly worsening aortic stenosis. Outpatient follow-up with Cardiology (17) Acute exacerbation of congestive heart failure: Status: Acute Problem details: Due to sepsis with fluid resuscitation and valvular heart disease. At discharge furosemide increased to 40 mg daily DS: Summary Hospital Course Hospital Course: 77-year-old female admitted to the hospital with onset of profound weakness and fever at home. Time of admission she was found to be hypotensive, febrile consistent with sepsis. She was started on fluid resuscitation and IV Zosyn. She received stress dose steroids. Initial considerations were urinary tract infection and pneumonia with bronchiectasis. She did have a positive blood culture which eventually grew micrococcus which was thought to be a contaminant. Urine culture grew Citrobacter which was sensitive to Zosyn. She developed hypoxic respiratory failure and was placed on high-flow nasal cannula. This was thought to be a combination of her sepsis with fluid resuscitation as well as her valvular heart disease. This was managed with diuresis. Echocardiogram showed worsening of her aortic stenosis and mitral stenosis as well. Over the past 3 days she has been managed without supplemental oxygen. She is now back on oral medications. At discharge her furosemide has been increased to 40 mg daily and her methotrexate has been discontinued. She had worsening of her pancytopenia on admission and this was thought possibly due to methotrexate. Valganciclovir can also cause this but it was continued. She will need outpatient follow-up with her primary care provider to reassess her heart failure and volume status and electrolytes. She will need for follow-up with her project associate to decide what to do about her rheumatoid arthritis off methotrexate. She has follow-up with her civil structural designer in May to address her valvular heart disease. She has follow-up with her nickel plater to address her bronchiectasis. Status at Discharge Functional status at discharge: uses cane/walker Overall status at discharge: patient is progressing back to baseline Time Spent with Patient Time attestation: Total time spent providing and/or coordinating discharge services: Time spent: Greater than 30 minutes Exam Narrative: Exam Narrative: She is alert and appears in no distress. Breathing easily on room air. O2 sats in the upper 90s. She is observed to have a cough productive of a clear sputum which she reports is typical for her. Respirations with coarse breath sounds especially at the bases. No wheezing. Cardiovascular: S1, S2, 2/6 systolic ejection murmur. Abdomen is soft there is no tenderness or mass. She does have some irritation in the skin folds under her abdominal pannus. No significant edema. Const: Vital Signs, click to edit/add: Vital Signs - 24 hr 05/01/23 11:00 05/01/23 12:00 05/01/23 13:00 Temperature 98.2 F Pulse Rate Pulse Rate [Pulse Oximeter] 69 Respiratory Rate 22 Blood Pressure [Le ft Arm] 107/55 L Pulse Oximetry 94 Oxygen Delivery Me thod High Flow Nasal Ca nnula Oxygen Flow Rate 20 Fraction of Inspir ed Oxygen 21 21 21 05/01/23 15:00 05/01/23 15:00 05/01/23 15:00 Temperature Pulse Rate Pulse Rate [Pulse Oximeter] 97 Respiratory Rate 22 22 Blood Pressure [Le ft Arm] Pulse Oximetry 94 Oxygen Delivery Me thod High Flow Nasal Ca nnula Oxygen Flow Rate 20 Fraction of Inspir ed Oxygen 21 21 05/01/23 15:00 05/01/23 16:00 05/01/23 17:00 Temperature 97.6 F Pulse Rate 68 Pulse Rate [Pulse Oximeter] 97 Respiratory Rate 22 Blood Pressure [Le ft Arm] 125/63 Pulse Oximetry 94 Oxygen Delivery Me thod High Flow Nasal Ca nnula Oxygen Flow Rate 20 Fraction of Inspir ed Oxygen 21 21 05/01/23 19:00 05/01/23 19:00 05/01/23 21:00 Temperature 98.4 F Pulse Rate Pulse Rate [Pulse Oximeter] 74 Respiratory Rate 20 Blood Pressure [Le ft Arm] 128/62 Pulse Oximetry 97 Oxygen Delivery Me thod High Flow Nasal Ca nnula Oxygen Flow Rate Fraction of Inspir ed Oxygen 21 21 05/01/23 22:54 05/01/23 22:56 05/01/23 23:00 Temperature Pulse Rate 65 Pulse Rate [Pulse Oximeter] Respiratory Rate 20 Blood Pressure [Le ft Arm] Pulse Oximetry 98 Oxygen Delivery Me thod High Flow Nasal Ca nnula Oxygen Flow Rate 30 Fraction of Inspir ed Oxygen 21 21 05/01/23 23:00 05/02/23 01:00 CDT 05/02/23 01:13 CDT Temperature 96.3 F L Pulse Rate Pulse Rate [Pulse Oximeter] 76 Respiratory Rate 20 Blood Pressure [Le ft Arm] 116/57 L Pulse Oximetry 98 Oxygen Delivery Me thod High Flow Nasal Ca nnula Oxygen Flow Rate Fraction of Inspir ed Oxygen 21 21 05/02/23 03:00 05/02/23 03:00 05/02/23 04:01 Temperature 96.4 F L Pulse Rate Pulse Rate [Pulse Oximeter] 68 Respiratory Rate 20 Blood Pressure [Le ft Arm] 111/70 Pulse Oximetry 95 Oxygen Delivery Me thod High Flow Nasal Ca nnula Oxygen Flow Rate 20 Fraction of Inspir ed Oxygen 21 21 21 Documenting provider has reviewed patient's vital signs: yes DS: Data Data Completed and Pending Completed studies during hospitalization: Procedures Drainage of Right Pleural Cavity, Percutaneous Approach, Diagnostic (12/21/21) Insertion of Infusion Device into Left Internal Jugular Vein, Percutaneous Approach (12/21/21) Labs on day of discharge: Labs from last 24 hours 05/02/23 06:02 WBC 5.78 RBC 3.15 L Hgb 9.9 L Hct 32.1 L MCV 102 H MCH 31 MCHC 31 L RDW Coeff of Navneet 16.6 H Plt Count 170 Neut % (Auto) 72.3 H Lymph % (Auto) 13.7 L [place] % (Auto) 10.0 Eos % (Auto) 0.2 Baso % (Auto) 0.2 Neut # (Auto) 4.20 Lymph # (Auto) 0.80 L [place] # (Auto) 0.60 Eos # (Auto) 0.01 Baso # (Auto) 0.01 Abs Immat Gran (auto) 0.21 Imm/Tot Granulo (auto) 3.6 Sodium 138 Potassium 3.7 Chloride 103 Carbon Dioxide 30 Anion Gap 5 L BUN 29 Creatinine 0.9 Estimated Creat Clear 40.21 Estimated GFR 67 Glucose 93 Lactate 2.0 H Calcium 8.3 L Preliminary micro results at discharge 04/29/23 14:23 Blood Culture - Preliminary Blood NO GROWTH AFTER 48 HOURS 04/29/23 14:23 Blood Culture - Preliminary Blood NO GROWTH AFTER 48 HOURS Imaging Echo: Radiologist's impression: BRYCE STALLINGS : 1945 77 years Study Date: 04/29/2023 4:23:22 PM Gender: F BP: 154/80 mmHg Height: 160.00 cm BSA: 1.75 m?? Weight: 72.00 kg Tech: CESAR Referring MD: ALEJANDRO VASQUEZ Site: [facility] Reading Location: [facility] Patient Location: Inpatient. ? ? Procedure: 2D, Color Doppler and Spectral Doppler. ? Indication for study: Heart failure (HC); Aortic stenosis ? ? Cardiac Rhythm: Regular.Study quality: Fair. ? Final Impressions: 1. Normal LV size, not well visualized wall thickness, normal global systolic function with an estimated EF of 60 - 65%. 2. Right ventricular cavity size is normal, global systolic RV function is normal. 3. Moderately enlarged left atrium. 4. The aortic valve is not well visualized, sclerotic and calcified, severe stenosis and no regurgitation. The aortic valve peak velocity is 3.9 m/s, the peak gradient is 60 mmHg, and the mean gradient is 39 mmHg. The aortic valve area is 0.67 cm?? with a dimensionless index of 0.22. The stroke volume index is 28.0 ml/m??. 5. The mitral valve is sclerotic, mild to moderate mitral regurgitation. There is a mean diastolic gradient of 6 mmHg at a HR of 85 bpm. 6. Mild-moderate tricuspid regurgitation. 7. Moderately increased estimated pulmonary systolic pressures by tricuspid regurgitation velocity and right atrial pressure (~49 mmHg). 8. The inferior vena cava is normal sized, respiratory size variation less than 50%. 9. Findings discussed with Dr. Rodgers. ? Comparison ? When compared to the report of the prior study of 06/25/22, the is now severe, there is more MR and TR, and the estimated PA systolic pressure is higher. CT scan - chest: Radiologist's impression: Indication: Hypoxia Technique: Volumetric multidetector CT images of the chest were obtained after the administration of IV contrast. 95 cc Isovue 370 low osmolar intravenous contrast Comparison: CT chest with contrast September 15, 2022. Findings: The thoracic inlet and thyroid gland are unremarkable. The thoracic aorta is non aneurysmal. There is no central filling defect to suggest pulmonary embolism. There are reactive mediastinal and hilar lymph nodes. There is marked central bronchial thickening and interstitial prominence. There are extensive interstitial and airspace opacities within the upper lobes with bibasilar pleural effusions with adjacent compressive atelectasis. Overall these findings likely represent developing pulmonary edema and/or multifocal infiltrates. There is no evidence of pulmonary mass or suspicious pulmonary nodule. The partially visualized upper abdominal viscera are within normal limits. The thoracic vertebral body heights are grossly maintained with diffuse flowing anterior osteophytosis and ossification of the interspinous ligament. Impression: Extensive interstitial and airspace opacities seen throughout the bilateral hemithoraces with basilar pleural effusions likely representing developing pulmonary edema and/or multifocal infiltrates. Discharge Plan Discharge Disposition: Home, Self-Care Date of Admission: 04/26/23 17:48 Attending Provider on Discharge: Alejandro Vasquez Consulting Providers: Eva Gore Primary Care Provider: Kyle Healy Condition: Unchanged Anticipated Discharge Date/Time: 05/02/23 09:35 Discharge Medications: Continued cholecalciferol (vitamin D3) 50 mcg (2,000 unit) capsule 50 mcg PO DAILY multivitamin Tablet 1 tab PO QAM ascorbic acid (vitamin C) 500 mg tablet 1 g PO DAILY albuterol sulfate 2.5 mg /3 mL (0.083 %) solution for nebulization 2.5 mg inhalation Q6H PRN folic acid 1 mg tablet 3 mg PO DAILY Lactobacillus acidophilus 0.5 mg (100 million cell) tablet 1,000 mmu cells PO DAILY paroxetine HCl 20 mg tablet 20 mg PO DAILY ferrous gluconate 324 mg (37.5 mg iron) tablet 324 mg PO DAILY prednisone 5 mg tablet 7.5 mg PO DAILY rosuvastatin 5 mg tablet See Rx Instructions .ROUTE .COMPLEX Qty: 90 3RF Dose Instruction: TAKE 1 TABLET BY MOUTH DAILY Rx Instructions: TAKE 1 TABLET BY MOUTH DAILY mometasone-formoterol 100-5 mcg/actuation HFA aerosol inhaler 2 puff inhalation BID sodium chloride 3 % solution for nebulization 4 ml inhalation .COMPLEX Rx Instructions: use twice a day with albuterol nebs metoprolol succinate 25 mg tablet extended release 24 hr 25 mg PO BID Qty: 180 3RF valganciclovir 450 mg tablet See Rx Instructions .ROUTE .COMPLEX Qty: 90 3RF Dose Instruction: TAKE 1 TABLET BY MOUTH DAILY Rx Instructions: TAKE 1 TABLET BY MOUTH DAILY Eliquis 5 mg tablet 2.5 mg PO BID Qty: 90 3RF hydrocodone-acetaminophen 5-325 mg tablet 1 tab PO Q6H PRN (Reason: pain) Qty: 40 0RF Changed furosemide 20 mg tablet 40 mg PO DAILY Qty: 90 0RF Discontinued methotrexate sodium 2.5 mg tablet 17.5 mg PO .Every 7 Days Rx Instructions: takes on wednesday Discharge Orders: Discharge Order (Routine); Ordered 05/02/23 Ordered By: Alejandro Vasquez Additional Instructions: Check your weight every morning at the same time. Record your weight and bring this to your doctor's appointment. Activity Level: Activity as Tolerated Discharge Diet: Regular Follow Up Appointments: Kyle Healy MD [Primary Care Provider] - (3-5 days. Check CBC, basic metabolic panel) Forms: [employer] Info Instructions
[2023-05-02] MEDS: HYDROCODONE-ACETAMIN 5-325 MG 1 TAB PO (08:31)
[2023-05-02] MEDS: LACTOBACILLUS ACIDOPHILUS 1 TABLET 1 TAB PO (08:56)
[2023-05-02] MEDS: METOPROLOL SUCCINATE (XL) 25 MG TAB PO (08:56)
[2023-05-02] MEDS: FOLIC ACID 1 MG TABLET 3 MG PO (08:56)
[2023-05-02] MEDS: APIXABAN 5 MG TABLET 2.5 MG PO (08:56)
[2023-05-02] MEDS: MULTIVITAMIN/MINERALS 1 TABLET 1 TAB PO (08:57)
[2023-05-02] MEDS: VALGANCICLOVIR 450 MG PO (08:57)
[2023-05-02] MEDS: NYSTATIN POWDER 1 APPLIC TOPICAL (09:01)
[2023-05-02] MEDS: SODIUM CHLORIDE 0.9 % (FLUSH) 10 ML SYRINGE 5 ML IVF (09:01)
--- NOTE | 2023-05-02 12:23 | PC.NURSE ---
Patient discharged back to the [facility]. Did call and notified them of her returning to there facility. Also attempted to let the Pharmacy General Manager also know left a message asking Shereen to call back and haven't received a call as of yet.
--- NOTE | 2023-05-02 12:48 | PC.NURSE ---
Nursing Care Hours: [id number] Pt this shift alert and oriented, calm and cooperative. Rating sciatic pain R hip 4/10, treated per eMAR. Declined heating pad, discussed using massage and stretching. VSS. High flow running, was allowed to take an hour break per RT. Duoneb given. Productive cough but LS clear. Declined shower. Tele strip shows sinus arrhythmia. IV removed for discharge, held pressure and arm elevated 5 min d/t increased bleeding. Advised pt to watch for signs of bleeding from site and apply pressure and hold arm elevated for 10 min. Discharge instructions explained to pt and adult son, included warm humid showers, getting a room humidifier, using a pulse oximeter to check oxygen saturations, drinking plenty of fluids, using Aerobika and alternating between activity and rest. All questions and concerns addressed. Pt wheeled out to vehicle in stable condition.
--- NOTE | 2023-05-03 17:18 | PC.SOCIAL ---
Social work: Called [facility] [phone] to confirm receipt of resumption of care orders when pt was discharged yesterday 05/02/23. Per intake, they did not receive any information on pt's discharge or need for resumption of care. Faxed MD orders, discharge summary and H&P to [facility] at [phone] for follow up.
== END 2023-05-02 12:01 | disposition home or self-care (01) | DRG 871 ==
LOC: ED 15:14 → MEDSURG 15:29
PROVIDERS: Family Medicine; Admitting Provider Family Medicine; Emergency Provider Emergency Medicine Emergency Medical Services; PCP Family Medicine; Visit Provider Family Medicine
DX: A41.9 Sepsis, unspecified organism (principal); I50.33 Acute on chronic diastolic (congestive) heart failure; L89.894 Pressure ulcer of other site, stage 4; J96.91 Respiratory failure, unspecified with hypoxia; J96.01 Acute respiratory failure with hypoxia; N39.0 Urinary tract infection, site not specified; B25.8 Other cytomegaloviral diseases; H30.892 Other chorioretinal inflammations, left eye; D61.818 Other pancytopenia; E46 Unspecified protein-calorie malnutrition; J47.1 Bronchiectasis with (acute) exacerbation; I13.0 Hypertensive heart and chronic kidney disease with heart failure and stage 1 through stage 4 chronic kidney disease, or unspecified chronic kidney disease; T45.1X5A Adverse effect of antineoplastic and immunosuppressive drugs, initial encounter; I48.0 Paroxysmal atrial fibrillation; N18.31 Chronic kidney disease, stage 3a; Z87.442 Personal history of urinary calculi; R32 Unspecified urinary incontinence; H54.62 Unqualified visual loss, left eye, normal vision right eye; M06.9 Rheumatoid arthritis, unspecified; I08.0 Rheumatic disorders of both mitral and aortic valves; Z79.631 Long term (current) use of antimetabolite agent; Z86.711 Personal history of pulmonary embolism; Z79.01 Long term (current) use of anticoagulants; Z92.25 Personal history of immunosuppression therapy; Z79.52 Long term (current) use of systemic steroids; K76.0 Fatty (change of) liver, not elsewhere classified
CPT/HCPCS: 15271; 36415; 51701; 71045; 71275; 80048; 80053; 80076; 81001; 82803; 83605; 83735; 83880; 84145; 84484; 85025; 86140; 87040; 87070; 87081; 87086; 87186; 87493; 87631; 93005; 93306; 94640; 94664; 94761; 97110; 97116; 97162; 97165; 97530; 97535; 99284; 99285; G0378; A9153; A9270; C9113; J0696; J1720; J1940; J2543; J3370; J7030; J7050; J7120; J7512; Q4158; Q9967

== ENCOUNTER 2023-05-04 00:43 | Inpatient (IN) | payer MEDICARE, OTHER, SELFPAY ==
[2023-05-04] VITALS (15 sets, daily range): BP systolic 92–124; BP diastolic 49–72; PULSE 59–98; RESP 16–20; TEMP 36.4–37.1; O2SAT 94–100; BMI 26.4; BMI 25.7
--- NOTE | 2023-05-04 01:19 | CRLHL7_ITS ---
For Patients: As a result of the Century Cures Act, medical imaging exams and procedure reports are released immediately into your electronic medical record. You may view this report before your referring provider. If you have questions, please contact your health care provider. INDICATION: Weakness. TECHNIQUE: Chest 2 views. COMPARISON: 04/30/2023. FINDINGS: Cardiovascular and mediastinum: Heart size and vasculature are normal in caliber and appearance. Lungs and pleural spaces: Decreased multifocal airspace opacities. No new focal consolidation. No pleural effusions. No pneumothorax. Bones and soft tissues: No significant findings. IMPRESSION: Decreased multifocal airspace opacities. No new focal consolidation. Dictated by Don Kingston MD @ 05/04/2023 2:08:16 AM (Electronically Signed)
[2023-05-04 01:30] LABS: Appearance Urine Clear (Clear); Bilirubin Urine Negative (Negative); Blood Urine Trace-intact (Negative); Color Urine Yellow (Yellow); Glucose Urine Negative (Negative); Ketones Urine Negative (Negative); Leukocyte Esterase Urine Negative (Negative); Nitrite Urine Negative (Negative); Protein Urine Negative (Negative); Urobilinogen Urine 0.2 (0.2-1.0); pH Urine 5.5 (5.0-8.5)
[2023-05-04 01:35] LABS: Bacteria Urine Few; Hyaline Casts Urine Moderate (None-Few); RBC Urine 0-2 (0-2); Squamous Epithelial Cell Urine Few (None-Few)
--- NOTE | 2023-05-04 02:07 | ED_ITS ---
HPI - General Adult General Chief complaint: Weakness Stated complaint: disoriented, weak Time Seen by Provider: 05/04/23 00:51 Source: patient and family Mode of arrival: ambulatory Limitations: no limitations History of Present Illness HPI narrative: 77-year-old female presents the emergency department with weakness. Patient was hospitalized for 6 days, discharged from the hospital 2 and half days ago. Denies fever, new falls or trauma since discharge. She tells me that she does not feel like she can care for herself in independent living. When she was texting her family today, she told then that she was just not feeling well. She denies any specific, focal complaint. When family went to check on her later this evening, she was in her bed, sitting in her own urine and feces. Stools have been loose, ?smells of antibiotics? per family. No fever, no dysuria. Has a chronic cough but not worse than usual. No chest pain or shortness of breath. I reviewed the discharge summary and see that she was technically able to ambulate with a cane or walker and passed her physical therapy assessment and therefore did not qualify for intermediate facility or rehab placement and was not interested in it at the time. She is reconsidering this. Reports that she did stay 21 days at a rehab center after an illness I year ago and found this helpful. Denies any focal neurological changes, no stroke-like symptoms. Reports that she has been taking her medications as prescribed. She was put on increased dose of furosemide following hospital discharge, she is uncertain of the correlation with this and her current symptoms. She did have worsening heart valvular disease based on hospitalization echo. Notes are reviewed. Extensive past medical history reviewed from hospital discharge. Autoimmune disease, chronic heart disease, chronic lung disease. Use of immunosuppressants, pancytopenic, generalized weakness, multiple others. All reviewed. Medications reported as stable from discharge. Has known chronic wound that she sees [facility]. Reports that this is unchanged. ROS notable for the generalized symptoms as above, otherwise nonspecific. Related Data Home Medications Medication Instructions Recorded Confirmed Lactobacillus acidophilus 0.5 mg 1,000 mmu cells PO DAILY 12/22/21 04/26/23 (100 million cell) tablet albuterol sulfate 2.5 mg/3 mL 2.5 mg inhalation Q6H PRN 12/22/21 04/26/23 (0.083 %) solution for nebulization folic acid 1 mg tablet 3 mg PO DAILY 12/22/21 04/26/23 ascorbic acid (vitamin C) 500 mg 1 g PO DAILY 01/16/22 04/26/23 tablet cholecalciferol (vitamin D3) 50 50 mcg PO DAILY 01/16/22 04/26/23 mcg (2,000 unit) capsule multivitamin 1 tab PO QAM 01/16/22 04/26/23 mometasone-formoterol HFA 100 2 puff inhalation BID 02/02/23 04/26/23 mcg-5 mcg/actuation aerosol inhaler sodium chloride 3 % for 4 ml inhalation .COMPLEX 02/02/23 04/26/23 nebulization ferrous gluconate 324 mg (37.5 mg 324 mg PO DAILY 04/26/23 04/26/23 iron) tablet paroxetine HCl 20 mg tablet 20 mg PO DAILY 04/26/23 04/26/23 prednisone 5 mg tablet 7.5 mg PO DAILY 04/26/23 04/26/23 Previous Rx's Medication Instructions Recorded rosuvastatin 5 mg tablet See Rx Instructions .Route 07/09/22 .COMPLEX #90 tabs metoprolol succinate 25 mg 25 mg PO BID #180 tabs 02/16/23 tablet,extended release 24 hr valganciclovir 450 mg tablet See Rx Instructions .Route 02/24/23 .COMPLEX #90 tabs apixaban 5 mg tablet (Eliquis) 2.5 mg (1/2 x 5 mg) PO BID #90 tabs 03/23/23 hydrocodone 5 mg-acetaminophen 325 1 tab PO Q6H PRN pain #40 tabs 04/12/23 mg tablet furosemide 20 mg tablet 40 mg (2 x 20 mg) PO DAILY #90 tabs 05/02/23 Allergies Allergy/AdvReac Type Severity Reaction Status Date / Time NSAIDS (Non-Steroidal Allergy Severe GI bleed Verified 03/22/23 12:56 Anti-Inflamma terbinafine Allergy Intermediate Headache Verified 03/22/23 12:56 levofloxacin AdvReac Severe tendon Verified 03/22/23 12:56 rupture [facility] Medical History Essential hypertension ?I10 - Essential (primary) hypertension (ICD-10) 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 - Cytomegaloviral disease, unspecified (ICD-10) ?H30.90 - Unspecified chorioretinal inflammation, unspecified eye (ICD-10) Rheumatoid arthritis ?M06.9 - Rheumatoid arthritis, unspecified (ICD-10) Paroxysmal atrial fibrillation ?I48.0 - Paroxysmal atrial fibrillation (ICD-10) Sepsis ?A41.9 - Sepsis, unspecified organism (ICD-10) Hypoxic respiratory failure ?J96.91 - Respiratory failure, unspecified with hypoxia (ICD-10) Methotrexate adverse reaction ?T45.1X5A - Adverse effect of antineoplastic and immunosuppressive drugs, initial encounter (ICD-10) Fatty liver ?K76.0 - Fatty (change of) liver, not elsewhere classified (ICD-10) Pleural effusion ?J90 - Pleural effusion, not elsewhere classified (ICD-10) Chronic wound ?T14.8XXA - Other injury of unspecified body region, initial encounter (ICD- 10) Immunosuppression ?D84.9 - Immunodeficiency, unspecified (ICD-10) Enrolled in chronic care management ?Z78.9 - Other specified health status (ICD-10) History of kidney stones ?Z87.442 - Personal history of urinary calculi (ICD-10) POLST (Physician Orders for Life-Sustaining Treatment) ?Z78.9 - Other specified health status (ICD-10) Mitral annular calcification ?I05.9 - Rheumatic mitral valve disease, unspecified (ICD-10) Abnormal LFTs (liver function tests) ?R79.89 - Other specified abnormal findings of blood chemistry (ICD-10) Surgical History S/P cataract extraction ?Z98.49 - Cataract extraction status, unspecified eye (ICD-10) S/P cholecystectomy ?Z90.49 - Acquired absence of other specified parts of digestive tract (ICD- 10) History of left nephrectomy ?Z90.5 - Acquired absence of kidney (ICD-10) History of lumbar fusion (04/2010) ?Z98.1 - Arthrodesis status (ICD-10) History of lithotripsy ?Z98.890 - Other specified postprocedural states (ICD-10) Family History Mother Breast cancer, Onset Age: 70 Sister Breast cancer, Onset Age: 35 Social History What is your current living situation?: I presently have a place to live Problems where you live: no known problems Problems where you live details: none In the past 12 months, utilities in danger of being shut off: no In past 12 months, lack of transportation kept you from medical appts, meetings, work, or getting things needed for daily living: no In the past 12 mos, have been you worried that your food would run out before you had money to buy more?: never true In the past 12 mos, the food you bought just didn't last and you didn't have money to buy more?: never true Smoking Status: Never smoker Second hand tobacco smoke exposure: No How often do you have a drink containing alcohol: never How often do you have six or more drinks on one occasion: Never AUDIT-C Alcohol total score: 0 Non-prescribed substance use: denies use Caffeine: No How often does anyone, including family, friends and others, physically hurt you : never How often does anyone, including family, friends and others, insult or talk down to you: never How often does anyone, including family, friends and others, threaten you with harm: never How often does anyone, including family, friends and others, scream or curse at you: never Little interest or pleasure in doing things: more than half the days Feeling down, depressed, or hopeless: more than half the days service: No Exam Const: Vital Signs, click to edit/add: Vital Signs - 24 hr 05/04/23 00:59 05/04/23 03:04 05/04/23 03:30 Temperature 97.9 F Pulse Rate [Pulse Oximeter] 84 64 59 L Respiratory Rate 18 16 16 Blood Pressure [Ri ght Upper Arm] 97/58 L 108/56 L 103/53 L Pulse Oximetry 99 94 98 Oxygen Delivery Me thod Room Air Room Air Room Air 05/04/23 04:30 Temperature Pulse Rate [Pulse Oximeter] 59 L Respiratory Rate 16 Blood Pressure [Ri ght Upper Arm] 110/54 L Pulse Oximetry 97 Oxygen Delivery Me thod Room Air Documenting provider has reviewed patient's vital signs: yes Common normals: no apparent distress Other: Appears well nourished, well hydrated, nontoxic. HENMT: Common normals: normocephalic Head and scalp: normocephalic Mouth: oral and palatal mucosa normal Throat: posterior oropharynx normal Eye: Common normals: conjunctivae normal General eye: normal appearance of both eyes Conjunctiva: conjunctiva(e) normal Neck & C-Spine: Common normals: no lymphadenopathy General: normal visual inspection Resp: Common normals: normal respiratory effort and no use of accessory muscles Other: Mildly decreased at both bases but no obvious crackles. Mild coarse upper airway sounds do clear with cough. No wheeze. Cardio: Common normals: regular rate, regular rhythm, S1 normal heart sound and S2 normal heart sound Rate: regular rate Rhythm: regular rhythm Heart sounds: S1 normal and S2 normal Other: Systolic ejection murmur noted, sounds consistent with previously reported result GI: Common normals: Normal to inspection, nondistended, normoactive bowel sounds present, soft to palpation, non-tender and no hepatosplenomegaly Inspection: normal to inspection Palpation: soft and no hepatosplenomegaly Other: Mild intertrigo with no ulcerations of abdominal folds. Extremity: Common normals: normal to inspection, full ROM, normal capillary refill and no pedal edema Neuro: Speech: speech normal Motor exam: strength 5/5 throughout and no movement abnormalities noted Other: Globally weak, nonfocal. Psych: Attitude: engaged Activity/motor behavior: appropriate eye contact Skin: Common normals: no rashes or lesions noted General skin exam: no rashes or lesions noted Course Course ED Course: Generalized weakness, uncertain etiology. Could be worsening infection, new neurological process, adrenal crisis, cardiac issue, among others. Recommend basic labs, chest x-ray, urinalysis. Will need trial of ambulation here in the ED. C diff test. According to her last PT assessment, I am uncertain if she would meet criteria for intermediate facility and rehab placement. May need repeat consult. Appears to not be safe at home currently. Reevaluation(s) Time of Reevaluation #1: 04:58 Reevaluation #1: Spoke with Cardiology, Dr. Chatman. We both agree that the elevated troponins are of questionable clinical significance. I did talk with the patient again and she still absolutely not having any chest pain. She certainly is not endorsing any specific dyspnea on exertion but rather just weakness which of course is worse on exertion as well. My overall impression is significant overall deconditioning. Dr. Chatman thinks that she could potentially benefit from a valve procedure but only if she can rehab to the point of independent am bulation 1st. At this point, she is a vulnerable adult and cannot safely live independently. I am going to put her in the hospital for observation get a new PT assessment. If needed, we can consider a short-term rehab facility. I did let the patient and her son know that this may not be covered by insurance as she may not qualify for 1. That will be determined by her PT assessment. She did have a recent inpatient stay and that may be helpful to determine status, but is not an absolute reason. She verbalizes understanding and agreement. I spoke with the hospitalist and he does accept admission for weakness, PT consult and possible rehab placement if qualified. Will need outpatient Cardiology consult for valve procedure. Transfer for valve procedure emergently is not warranted nor needed. Vital Signs Vital signs: Initial Vital Signs Temperature 97.9 F 05/04/23 00:59 Temperature Source Temporal Artery Scan 05/04/23 00:59 Pulse Rate 84 05/04/23 00:59 Respiratory Rate 18 05/04/23 00:59 Blood Pressure 97/58 L 05/04/23 00:59 Blood Pressure Mean 71 05/04/23 00:59 Blood Pressure Position Sitting 05/04/23 00:59 Pulse Oximetry 99 05/04/23 00:59 Oxygen Delivery Method Room Air 05/04/23 00:59 Vital Signs Temperature 97.9 F 05/04/23 00:59 Pulse Rate 84 05/04/23 00:59 Respiratory Rate 18 05/04/23 00:59 Blood Pressure 97/58 L 05/04/23 00:59 Pulse Oximetry 99 05/04/23 00:59 Oxygen Delivery Method Room Air 05/04/23 00:59 Temperature 97.9 F 05/04/23 00:59 Pulse Rate 59 L 05/04/23 04:30 Respiratory Rate 16 05/04/23 04:30 Blood Pressure 110/54 L 05/04/23 04:30 Pulse Oximetry 97 05/04/23 04:30 Oxygen Delivery Method Room Air 05/04/23 04:30 Medications Administered Medications: Discontinued Medications Generic Name Dose Route Start Last Admin Trade Name Freq PRN Reason Stop Dose Admin Sodium Chloride 1,000 mls @ 500 mls/hr 05/04/23 01:21 05/04/23 04:47 0.9 % Sodium Chloride 1000 Ml IV 05/04/23 03:20 Infused .Q2H MICHELLE Infusion Medical Decision Making Lab Data Lab results reviewed: Yes I reviewed the patient's lab results Lab results narrative: Labs are reassuring except for worsening troponins and BNP. See notes regarding profiler discussion. Labs: Lab Results 05/04/23 05/04/23 05/04/23 Range/Units 01:15 01:19 02:05 WBC 8.70 (4.50-11.00) K/uL RBC 3.67 L (4.00-5.20) m/uL Hgb 11.6 L (12.0-16.0) gm/dL Hct 36.7 (33.0-51.0) % MCV 100 (80-100) fL MCH 32 (26-34) pg MCHC 32 (32-36) gm/dL RDW Coeff of [place] 16.8 H (11.5-15.5) % Plt Count 182 (140-440) K/uL Neut % (Auto) 74.7 H (42.0-72.0) % Lymph % (Auto) 12.2 L (20-44) % [place] % (Auto) 8.2 (0.0-11.0) % Eos % (Auto) 0.3 (0.0-7.0) % Baso % (Auto) 0.1 (0.0-3.0) % Neut # (Auto) 6.50 (1.7-7.0) K/uL Lymph # (Auto) 1.10 (0.90-2.90) K/uL [place] # (Auto) 0.70 (0.00-0.90) K/UL Eos # (Auto) 0.03 (0.00-0.50) K/uL Baso # (Auto) 0.01 (0.00-0.30) K/uL Abs Immat Gran (auto) 0.39 H (0.00-0.30) K/uL Imm/Tot Granulo (auto) 4.5 % Sodium 136 (135-149) mmol/L Potassium 3.7 (3.6-5.1) mmol/L Chloride 98 (96-114) mmol/L Carbon Dioxide 29 (20-32) mmol/L Anion Gap 9 (7-15) mEq/L BUN 44 H (7-30) mg/dL Creatinine 1.2 (0.5-1.5) mg/dL Estimated Creat Clear 33.51 Estimated GFR 47 ml/min Glucose 125 H (60-115) mg/dL Lactate 2.1 H (0.5-1.9) mmol/L Calcium 9.2 (8.4-10.6) mg/dL Magnesium 2.3 (1.5-2.6) mg/dL Total Bilirubin 0.8 (0.1-1.5) mg/dL AST 82 H (12-35) U/L ALT 69 H (4-35) U/L Alkaline Phosphatase 131 (40-150) U/L Troponin I 0.32 H* (0.01-0.04) ng/mL NT-Pro-B Natriuret Pep 66553 pg/mL Total Protein 6.2 (6.0-8.3) g/dL Albumin 3.5 (3.3-5.0) g/dL Urine Color Yellow (Yellow) Urine Appearance Clear (Clear) Urine pH 5.5 (5.0-8.5) Ur Specific [place] 1.020 (1.000-1.030) Urine Protein Negative (Negative) Urine Glucose (UA) Negative (Negative) Urine Ketones Negative (Negative) Urine Blood Trace-intact A (Negative) Urine Nitrite Negative (Negative) Urine Bilirubin Negative (Negative) Urine Urobilinogen 0.2 (0.2-1.0) Ur Leukocyte Esterase Negative (Negative) Urine RBC 0-2 (0-2) Urine WBC 2-5 (0-5) Ur Squamous Epith Cells Few (None-Few) Urine Bacteria Few A (None) Hyaline Casts Moderate A (None-Few) POC Troponin I 0.30 H (0.01-0.04) ng/ml 05/04/23 Range/Units 03:40 WBC (4.50-11.00) K/uL RBC (4.00-5.20) m/uL Hgb (12.0-16.0) gm/dL Hct (33.0-51.0) % MCV (80-100) fL MCH (26-34) pg MCHC (32-36) gm/dL RDW Coeff of [place] (11.5-15.5) % Plt Count (140-440) K/uL Neut % (Auto) (42.0-72.0) % Lymph % (Auto) (20-44) % [place] % (Auto) (0.0-11.0) % Eos % (Auto) (0.0-7.0) % Baso % (Auto) (0.0-3.0) % Neut # (Auto) (1.7-7.0) K/uL Lymph # (Auto) (0.90-2.90) K/uL [place] # (Auto) (0.00-0.90) K/UL Eos # (Auto) (0.00-0.50) K/uL Baso # (Auto) (0.00-0.30) K/uL Abs Immat Gran (auto) (0.00-0.30) K/uL Imm/Tot Granulo (auto) % Sodium (135-149) mmol/L Potassium (3.6-5.1) mmol/L Chloride (96-114) mmol/L Carbon Dioxide (20-32) mmol/L Anion Gap (7-15) mEq/L BUN (7-30) mg/dL Creatinine (0.5-1.5) mg/dL Estimated Creat Clear Estimated GFR ml/min Glucose (60-115) mg/dL Lactate (0.5-1.9) mmol/L Calcium (8.4-10.6) mg/dL Magnesium (1.5-2.6) mg/dL Total Bilirubin (0.1-1.5) mg/dL AST (12-35) U/L ALT (4-35) U/L Alkaline Phosphatase (40-150) U/L Troponin I (0.01-0.04) ng/mL NT-Pro-B Natriuret Pep pg/mL Total Protein (6.0-8.3) g/dL Albumin (3.3-5.0) g/dL Urine Color (Yellow) Urine Appearance (Clear) Urine pH (5.0-8.5) Ur Specific [place] (1.000-1.030) Urine Protein (Negative) Urine Glucose (UA) (Negative) Urine Ketones (Negative) Urine Blood (Negative) Urine Nitrite (Negative) Urine Bilirubin (Negative) Urine Urobilinogen (0.2-1.0) Ur Leukocyte Esterase (Negative) Urine RBC (0-2) Urine WBC (0-5) Ur Squamous Epith Cells (None-Few) Urine Bacteria (None) Hyaline Casts (None-Few) POC Troponin I 0.31 H (0.01-0.04) ng/ml Imaging Data Chest x-ray: Attestation: I have reviewed the pertinent imaging results. My impression: Improving edema and infiltrates from last week. No new pertinent findings Radiologist's impression: IMPRESSION: Decreased multifocal airspace opacities. No new focal consolidation. Dictated by Don Kingston MD @ 05/04/2023 2:08:16 AM ECG Data Attestation: I personally reviewed and interpreted this ECG as follows: Prior ECG tracings: available for review Interpretation: Normal sinus rhythm, rate of 64. [place] appears normal. Normal ST and T-wave segments. Normal indexes. Normal EKG. Discharge Plan Discharge Clinical Impression: Weakness, Aortic stenosis, severe, Frailty syndrome in geriatric patient Patient Disposition: Admitted As Observation
--- OUTSIDE RECORDS SUMMARY | 2023-05-04 02:16 | XMS_ITS | Continuity of Care Document ---
Author Name Unknown Organization [facility] Address [address] [place] [address] Phone Care Team Providers Care Poultry Scalder Name Role Phone Unavailable Unavailable Unavailable Advance Directives Directive Yes / No Effective Date File Name No Information Encounters Encounter Description Practice Location Reason(s) For Visit Diagnoses Date Provider Providers Copied on Encounter [facility], [address], [place], [address], [place] tel:[phone] No Information [phone] No Information [...]
--- OUTSIDE RECORDS SUMMARY | 2023-05-04 02:16 | XMS_ITS | Continuity of Care Document ---
Author Name Unknown Organization [facility] Address [address] [facility] [address] [place] [address] Phone Care Team Providers Care Grain Sacker Name Role Phone Ritchie Mclaughlin MD Unavailable Unavailable Allergies, Adverse Reactions, Alerts Substance Reaction Status Criticality levofloxacin Active No Information NSAIDS (Non-Steroidal Anti-Inflammatory Drug) Active No Information Medications Medication Instructions Dosage Effective Dates (start - stop) Status Comments duloxetine 30 mg capsule,delayed release 1 cap PO qd for 2 weeks then may increase to 2 caps PO qd - Active potassium chloride ER 20 mEq tablet,extended release(part/cryst) take 1 tablet by oral route every day with food 20 MEQ - Active furosemide 40 mg tablet take 1 by Oral route 2 times every day 1 - Active nystatin 100,000 unit/mL oral suspension take 5 milliliter by oral route 4 times every day [id number] UNITS - Active alendronate 70 mg tablet take 1 tablet by oral route every week in the morning, at least 30 min before first food, beverage, or medication of day 70 MG - Active atenolol 25 mg tablet take 1 tablet by ORAL route every day 25 MG - Active [place] 5 mg-325 mg tablet take 1 - [...] Diagnoses Date Provider Providers Copied on Encounter [facility], [address], [id number], tel:[phone] [facility] No Information 3 Lissette Dugan. [address] [facility] [address], [place], [place], [id number] . tel: [phone] OFFICE/OUTPA TIENT VISIT, Formerly [facility], [facility], [address] [facility] [address], [place], [place], [id number], tel:[phone] [facility] Musculoskelet al Pain (chief complaint) Rheumatoid arthritis, unspecifiedFi bromyalgia 8 Yves Allen. [address] [facility] [address], [place], [place], [id number] , [place]. tel: [phone] Referring Provider: Alejandro Marinelli MD, [address] [address], [place], [address] . tel:[phone] Family History Family Member Type Diagnosis Age At Onset Mother Problem (finding) Alive and well Father Problem (finding) prostate cancer (Cause Of ) Mother Problem (finding) malignant neop lasm of breast in first degree relative Payers Payer name Insurance type Covered libertarian ID Authoriza tion(s) Co Medicare QBI MB [id number] [place] Supplemental CI [id number] Social History Type Description Quantity Date Captured [...] 15 years ago. States she comes to [place] every 9 years and would like to establish care with our office today. Patient states she had established care with her Cardiopulmonary Supervisor back in [place] Dr. Henley and patient has brought some [...] medications for her pain. States she takes Chattanooga prescribed by her previous Cardiopulmonary Supervisor Dr. Henley and states this takes the edge off but phillips not get full relief.Patient states she has tried Indocin 60mg but had a GI bleed due to taking this. States from [id number] she tried Humira and states she could not afford it due to being on Medicare. States she also tried Orencia , Rituxan and Acetemra infusions in the past and states this was ineffective. States she is currently taking Remicade infusions and states she has them every 2 months in [facility]. States the Remicade has been increased twice sine starting this due to it being ineffective. Pt is currently taking Alendronate 70mg, FA, [place] 5-325mg PRN, Prednisone 2mg QD, MTX 5mg QWKPrior Rheumatology in [place] Dr. Swapnil Henley. Patient has records with [...]
--- OUTSIDE RECORDS SUMMARY | 2023-05-04 02:16 | XMS_ITS | Continuity of Care Document ---
Author Name Unknown Organization [facility] Address [address] [address] [place] [address] Phone Care Team Providers Care Algebra Tutor Name Role Phone Tosha West Unavailable Unavailable [...] Compl [facility], [address] [address], [place], [place], [id number], [place] tel:[phone] [facility] No Information 9 Stephen Givens. [address], [id number], [place]. tel:[phone] [facility] H[facility] Compl [facility], [address] [address], [place], [place], [id number], [place] tel:[phone] [facility] No Information 9 No Information Init Inpt Cons New/est Mod-hi [facility], [address] [address], [place], [place], [id number], tel:[phone] [facility] No Information 9 Christine Kraft. [address] [facility] [address], [place], [place], [id number], [place]. tel:[phone] Family History Family Member Type Diagnosis Age [...]
[2023-05-04 02:17] LABS: Lactate* 2.1 mmol/L (0.5-1.9)
[2023-05-04 02:20] LABS: Basophils Absolute Auto 0.01 K/uL (0.00-0.30); Basophils Percent Auto 0.1 % (0.0-3.0); Eosinophils Absolute Auto 0.03 K/uL (0.00-0.50); Eosinophils Percent Auto 0.3 % (0.0-7.0); Hematocrit 36.7 % (33.0-51.0); Hemoglobin* 11.6 gm/dL (12.0-16.0); Immature Granulocytes Abs Auto 0.39 K/uL (0.00-0.30); Immature Granulocytes Pct Auto 4.5 %; Lymphocytes Percent Auto 12.2 % (20-44); Mean Corpuscular HGB Conc 32 gm/dL (32-36); Mean Corpuscular Hemoglobin 32 pg (26-34); Mean Corpuscular Volume 100 fL (80-100); Monocytes Percent Auto 8.2 % (0.0-11.0); Neutrophils Percent Auto 74.7 % (42.0-72.0); Platelet Count* 182 K/uL (140-440); RDW Coefficient of Variation % 16.8 % (11.5-15.5); Red Blood Count 3.67 m/uL (4.00-5.20)
[2023-05-04 02:21] LABS: Slide Review Reflex No
[2023-05-04 02:34] LABS: Albumin* 3.5 g/dL (3.3-5.0); Chloride* 98 mmol/L (96-114); Sodium* 136 mmol/L (135-149)
[2023-05-04 02:35] LABS: Potassium* 3.7 mmol/L (3.6-5.1)
[2023-05-04 02:37] LABS: Alanine Aminotransferase* 69 U/L (4-35); Alkaline Phosphatase* 131 U/L (40-150); Anion Gap 9 mEq/L (7-15); Aspartate Amino Transferase* 82 U/L (12-35); Bilirubin Total* 0.8 mg/dL (0.1-1.5); Blood Urea Nitrogen* 44 mg/dL (7-30); Calcium* 9.2 mg/dL (8.4-10.6); Carbon Dioxide* 29 mmol/L (20-32); Creatinine* 1.2 mg/dL (0.5-1.5); Est. Creatinine Clearance* 33.51; Estimated Glomerular Filt Rate 47 ml/min; Glucose* 125 mg/dL (60-115); Magnesium* 2.3 mg/dL (1.5-2.6); Total Protein* 6.2 g/dL (6.0-8.3)
[2023-05-04] MEDS: 0.9 % SODIUM CHLORIDE 1000 ml 1,000 ML 500 ML IV (02:40)
[2023-05-04 02:49] LABS: NT Pro B Type NatriureticPept* 25000 pg/mL
[2023-05-04 02:50] LABS: Troponin I* 0.32 ng/mL (0.01-0.04)
[2023-05-04 03:50] LABS: Troponin, Point-of-Care* 0.31 ng/ml (0.01-0.04)
--- NOTE | 2023-05-04 06:37 | W.PM.TELEH&P ---
Telehealth- H&P: HPI History of Present Illness Date Seen: 05/04/23 Chief complaint: Generalized Weakness Narrative: Tanner James is seen as an Interactive Telehealth visit. Tanner James is a 77 year old female who presented to the emergency room with worsening generalized weakness and inability to care for herself. Tanner is a significant past medical history of just being discharged from the hospital on 05/02, approximately 2 days ago. She was discharged after being treated for sepsis from a urinary source, hypoxic respiratory failure due to congestive heart failure along with valvular heart disease including mitral stenosis and severe aortic stenosis, chronic abdominal wound, paroxysmal atrial fibrillation, protein calorie malnutrition recent generalized deconditioning. Tanner did have therapies during her hospital stay, but felt that she would be able to return back home in an independent living situation. Unfortunately, over the last 2 days she has been having increased weakness and today her family found her laying in bed covered in stool and incontinent of urine. Tanner denies any falls but states that she has been very weak. She denies any chest pain or shortness of breath. She does not believe she had any syncopal type episode and now agrees that she most likely will need increased help for her daily activities. With her inability to do her ADLs and return back to her current independent living situation, she is currently being admitted to the medical service for further evaluation and treatment. At the time I am seeing Tanner, she denies any other acute complaints or problems currently. Review of Systems Status of ROS: Reports: 10 or more systems reviewed and unremarkable except as noted in History and below [facility] Medical History Essential hypertension ?I10 - Essential (primary) hypertension (ICD-10) 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 - Cytomegaloviral disease, unspecified (ICD-10) ?H30.90 - Unspecified chorioretinal inflammation, unspecified eye (ICD-10) Rheumatoid arthritis ?M06.9 - Rheumatoid arthritis, unspecified (ICD-10) Paroxysmal atrial fibrillation ?I48.0 - Paroxysmal atrial fibrillation (ICD-10) Sepsis ?A41.9 - Sepsis, unspecified organism (ICD-10) Hypoxic respiratory failure ?J96.91 - Respiratory failure, unspecified with hypoxia (ICD-10) Methotrexate adverse reaction ?T45.1X5A - Adverse effect of antineoplastic and immunosuppressive drugs, initial encounter (ICD-10) Fatty liver ?K76.0 - Fatty (change of) liver, not elsewhere classified (ICD-10) Pleural effusion ?J90 - Pleural effusion, not elsewhere classified (ICD-10) Chronic wound ?T14.8XXA - Other injury of unspecified body region, initial encounter (ICD-10) Immunosuppression ?D84.9 - Immunodeficiency, unspecified (ICD-10) Enrolled in chronic care management ?Z78.9 - Other specified health status (ICD-10) History of kidney stones ?Z87.442 - Personal history of urinary calculi (ICD-10) POLST (Physician Orders for Life-Sustaining Treatment) ?Z78.9 - Other specified health status (ICD-10) Mitral annular calcification ?I05.9 - Rheumatic mitral valve disease, unspecified (ICD-10) Abnormal LFTs (liver function tests) ?R79.89 - Other specified abnormal findings of blood chemistry (ICD-10) Surgical History S/P cataract extraction ?Z98.49 - Cataract extraction status, unspecified eye (ICD-10) S/P cholecystectomy ?Z90.49 - Acquired absence of other specified parts of digestive tract (ICD-10) History of left nephrectomy ?Z90.5 - Acquired absence of kidney (ICD-10) History of lumbar fusion (04/2010) ?Z98.1 - Arthrodesis status (ICD-10) History of lithotripsy ?Z98.890 - Other specified postprocedural states (ICD-10) Family History Mother Breast cancer, Onset Age: 70 Sister Breast cancer, Onset Age: 35 Social History What is your current living situation?: I presently have a place to live Problems where you live: no known problems Problems where you live details: none In the past 12 months, utilities in danger of being shut off: no In past 12 months, lack of transportation kept you from medical appts, meetings, work, or getting things needed for daily living: no In the past 12 mos, have been you worried that your food would run out before you had money to buy more?: never true In the past 12 mos, the food you bought just didn't last and you didn't have money to buy more?: never true Smoking Status: Never smoker Second hand tobacco smoke exposure: No How often do you have a drink containing alcohol: never How often do you have six or more drinks on one occasion: Never AUDIT-C Alcohol total score: 0 Non-prescribed substance use: denies use Caffeine: No How often does anyone, including family, friends and others, physically hurt you: never How often does anyone, including family, friends and others, insult or talk down to you: never How often does anyone, including family, friends and others, threaten you with harm: never How often does anyone, including family, friends and others, scream or curse at you: never Little interest or pleasure in doing things: more than half the days Feeling down, depressed, or hopeless: more than half the days service: No Meds Home Medications and Allergies Home Medications Medication Instructions Recorded Confirmed Type Lactobacillus acidophilus 0.5 mg 1,000 mmu cells PO DAILY 12/22/21 04/26/23 History (100 million cell) tablet albuterol sulfate 2.5 mg/3 mL 2.5 mg inhalation Q6H PRN 12/22/21 04/26/23 History (0.083 %) solution for nebulization folic acid 1 mg tablet 3 mg PO DAILY 12/22/21 04/26/23 History ascorbic acid (vitamin C) 500 mg 1 g PO DAILY 01/16/22 04/26/23 History tablet cholecalciferol (vitamin D3) 50 50 mcg PO DAILY 01/16/22 04/26/23 History mcg (2,000 unit) capsule multivitamin 1 tab PO QAM 01/16/22 04/26/23 History mometasone-formoterol HFA 100 2 puff inhalation BID 02/02/23 04/26/23 History mcg-5 mcg/actuation aerosol inhaler sodium chloride 3 % for 4 ml inhalation .COMPLEX 02/02/23 04/26/23 History nebulization ferrous gluconate 324 mg (37.5 mg 324 mg PO DAILY 04/26/23 04/26/23 History iron) tablet paroxetine HCl 20 mg tablet 20 mg PO DAILY 04/26/23 04/26/23 History prednisone 5 mg tablet 7.5 mg PO DAILY 04/26/23 04/26/23 History Allergies Allergy/AdvReac Type Severity Reaction Status Date / Time NSAIDS (Non-Steroidal Allergy Severe GI bleed Verified 03/22/23 12:56 Anti-Inflamma terbinafine Allergy Intermediate Headache Verified 03/22/23 12:56 levofloxacin AdvReac Severe tendon Verified 03/22/23 12:56 rupture Exam Narrative Exam Narrative: Physical Exam GENERAL: ?vital signs reviewed, well developed and nourished, in no distress. Generalized weakness is noted. HEENT: R pupil is round and reactive to light. 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 Extraocular movements are grossly within normal limits and oral mucosa is dry. NECK: Supple without lymphadenopathy or thyromegaly according to nursing staff examination observation HEART: Regular rate and rhythm with a significant 4/6 JOEL best heard over the aorta.? LUNGS: Clear to auscultation bilaterally with decreased breath sounds at the bilateral bases ABDOMEN: Observation from nurse assisted exam, abdomen appears soft, nontender, and nondistended with Positive bowel sounds noted. There is a midabdominal wound that is packed. Minimal drainage without erythema. EXTREMITIES: Strength and sensation is observed to be grossly decreased, but symmetric in the upper and lower extremities.? No focal strength deficit is observed. Trace edema is noted. SKIN:? Observed warm and dry with color normal NEURO: Alert, awake and oriented ?3. Answers all questions appropriately. No focal neuro deficits are noted. PSYCH: ?Affect normal Const Vital Signs, click to edit/add: Vital Signs - 24 hr 05/04/23 00:59 05/04/23 03:04 05/04/23 03:30 Temperature 97.9 F Pulse Rate Pulse Rate [Pulse Oximeter] 84 64 59 L Respiratory Rate 18 16 16 Blood Pressure [Right Upper Arm] 97/58 L 108/56 L 103/53 L Pulse Oximetry 99 94 98 Oxygen Delivery Method Room Air Room Air Room Air 05/04/23 04:30 05/04/23 06:10 Temperature Pulse Rate 68 Pulse Rate [Pulse Oximeter] 59 L Respiratory Rate 16 Blood Pressure [Right Upper Arm] 110/54 L Pulse Oximetry 97 Oxygen Delivery Method Room Air Documenting provider has reviewed patient's vital signs: yes Hospitalist - H&P: Result Labs Labs: Short CBC 05/04/23 Range/Units 02:05 WBC 8.70 (4.50-11.00) K/uL Hgb 11.6 L (12.0-16.0) gm/dL Hct 36.7 (33.0-51.0) % Plt Count 182 (140-440) K/uL BMP 05/04/23 02:05 Sodium 136 Potassium 3.7 Chloride 98 Carbon Dioxide 29 BUN 44 H Creatinine 1.2 Glucose 125 H Calcium 9.2 Cardiac Enzymes 05/04/23 Range/Units 02:05 Troponin I 0.32 H* (0.01-0.04) ng/mL Liver Function 05/04/23 Range/Units 02:05 Total Bilirubin 0.8 (0.1-1.5) mg/dL AST 82 H (12-35) U/L ALT 69 H (4-35) U/L Alkaline Phosphatase 131 (40-150) U/L Albumin 3.5 (3.3-5.0) g/dL Urine 05/04/23 Range/Units 01:15 Urine Color Yellow (Yellow) Urine Appearance Clear (Clear) Urine pH 5.5 (5.0-8.5) Ur Specific [place] 1.020 (1.000-1.030) Urine Protein Negative (Negative) Urine Glucose (UA) Negative (Negative) Assessment and Plan Assessment and plan (1) Weakness: Status: Acute Plan Assessment: 1. Generalized weakness and deconditioning with inability to do ADLs 2. Recent extended hospitalization with multiple medical problems contributing to #1 above 3. Rheumatoid arthritis on recent immunosuppression including current prednisone therapy 4. Severe aortic stenosis as well as mitral stenosis 5. 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 Mildly elevated troponin most likely myocardial infarction type II from demand ischemia from chronic disease including severe aortic stenosis with no sign of acute cardiac decompensation currently 7. COPD 8. Paroxysmal atrial fibrillation currently anticoagulated on apixaban 9. Fatty liver 10. Bronchiectasis 11. Depression and chronic anxiety 12. Chronic kidney disease stage III 13. Protein calorie malnutrition 14. Chronic abdominal wound of undetermined origin with decreased healing ability due to number of medical conditions above Plan: At this time aTnner will be admitted to the medical service. She does seem to have a number of chronic medical problems that for the most part seem to be somewhat stable, but unfortunately she seems to be having worsening generalized weakness and deconditioning. It is quite apparent that she is not able to function independently at this time and will need a higher level of care such as a rehab setting or alf facility. I do note that her creatinine has slightly elevated as well as her BUN and she may be having sequelae of some slight volume depletion, especially with the increased Lasix dosing that she was given on discharge from her recent hospitalization. At this point I will hold her Lasix and will ask for her attending to reevaluate her volume status over the next 1 to 2 days. I will ask for physical therapy, Occupational Therapy and public health social worker she Tanner for evaluation and treatment. I will ask for a C. difficile screen with her recent diarrhea which may also be contributing to her weakness as well as her possible minor volume depletion. I have discussed this plan with Tanner and she is agreeable to proceed as she does also feel that she will need more help at least in the near future. We will continue to follow closely from medical standpoint I have discussed CODE STATUS with Tanner and she does desire no CODE BLUE. This will be ordered as per her wishes. Telehealth: Statement Statement Telehealth Visit: Today's History and Physical is provided via interactive telehealth by Addy Delong MD.? Patient is located at [facility].? Provider is located at [facility].? Nursing staff assisted with the patient's exam. The visit being done today meets criteria for a telehealth visit and the patient or patient?s parent/guardian is aware the visit is a telehealth visit. Camera Start Time: 06:00 Camera End Time: 06:18
[2023-05-04] MEDS: HYDROCODONE-ACETAMIN 5-325 MG 1 TAB PO ×2 (08:02→20:00)
[2023-05-04] MEDS: ASCORBIC ACID 500 MG TABLET 1000 MG PO (09:18)
[2023-05-04] MEDS: METOPROLOL SUCCINATE (XL) 25 MG TAB PO (09:18)
--- NOTE | 2023-05-04 09:18 | PC.SOCIAL ---
Social work: Pt is currently receiving services from [facility] out of [place] office [phone]. Called and informed them of pt being hospitalized. [facility] requested information be faxed at discharge if home care needs to be resumed to fax [phone].
[2023-05-04] MEDS: predniSONE 5 MG TABLET 10 MG PO (09:19)
[2023-05-04] MEDS: APIXABAN 5 MG TABLET 2.5 MG PO (09:19)
[2023-05-04] MEDS: FOLIC ACID 1 MG TABLET 3 MG PO (09:19)
[2023-05-04] MEDS: SODIUM CHLORIDE 0.9 % (FLUSH) 10 ML SYRINGE 5 ML IVF (09:19)
[2023-05-04] MEDS: PARoxetine 20 MG TABLET PO (09:19)
[2023-05-04] MEDS: MULTIVITAMIN/MINERALS 1 TABLET 1 TAB PO (09:19)
[2023-05-04] MEDS: SODIUM CHLORIDE 3% 1 NEB IH ×2 (10:00)
[2023-05-04] MEDS: VALGANCICLOVIR 450 MG TABLET PO (10:10)
--- NOTE | 2023-05-04 12:37 | PM.WSCN ---
Date of Consult Consult date: 05/04/23 Requesting Physician: Hospitalist Primary Care Provider: Kyle Healy MD Consult Narrative Narrative: Tanner James is a 77 year old female known to wound services hospitalized for acute exacerbation of CHF as well as pulmonary/COPd exacerbation. on IV abx. Known chronic wound to left lower abdomen. please reference wound center visits for more information. Today wound is stable. wound healing delayed d/t chronic immunosuppression with methotrexate. Patient denies pain to wound are any concerns related to wound. Inguinal Groove/Pannus Fold Interigo/MASD also present. 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 - Cytomegaloviral disease, unspecified (ICD-10) ?H30.90 - Unspecified chorioretinal inflammation, unspecified eye (ICD-10) Rheumatoid arthritis ?M06.9 - Rheumatoid arthritis, unspecified (ICD-10) Paroxysmal atrial fibrillation ?I48.0 - Paroxysmal atrial fibrillation (ICD-10) Sepsis ?A41.9 - Sepsis, unspecified organism (ICD-10) Hypoxic respiratory failure ?J96.91 - Respiratory failure, unspecified with hypoxia (ICD-10) Methotrexate adverse reaction ?T45.1X5A - Adverse effect of antineoplastic and immunosuppressive drugs, initial encounter (ICD-10) Fatty liver ?K76.0 - Fatty (change of) liver, not elsewhere classified (ICD-10) Pleural effusion ?J90 - Pleural effusion, not elsewhere classified (ICD-10) Chronic wound ?T14.8XXA - Other injury of unspecified body region, initial encounter (ICD-10) Immunosuppression ?D84.9 - Immunodeficiency, unspecified (ICD-10) Enrolled in chronic care management ?Z78.9 - Other specified health status (ICD-10) History of kidney stones ?Z87.442 - Personal history of urinary calculi (ICD-10) POLST (Physician Orders for Life-Sustaining Treatment) ?Z78.9 - Other specified health status (ICD-10) Mitral annular calcification ?I05.9 - Rheumatic mitral valve disease, unspecified (ICD-10) Abnormal LFTs (liver function tests) ?R79.89 - Other specified abnormal findings of blood chemistry (ICD-10) Surgical History S/P cataract extraction ?Z98.49 - Cataract extraction status, unspecified eye (ICD-10) S/P cholecystectomy ?Z90.49 - Acquired absence of other specified parts of digestive tract (ICD-10) History of left nephrectomy ?Z90.5 - Acquired absence of kidney (ICD-10) History of lumbar fusion (04/2010) ?Z98.1 - Arthrodesis status (ICD-10) History of lithotripsy ?Z98.890 - Other specified postprocedural states (ICD-10) Family History Mother Breast cancer, Onset Age: 70 Sister Breast cancer, Onset Age: 35 Social History What is your current living situation?: I presently have a place to live Problems where you live: no known problems Problems where you live details: na In the past 12 months, utilities in danger of being shut off: no In past 12 months, lack of transportation kept you from medical appts, meetings, work, or getting things needed for daily living: no Smoking Status: Never smoker Second hand tobacco smoke exposure: No How often do you have a drink containing alcohol: never How often do you have six or more drinks on one occasion: Never AUDIT-C Alcohol total score: 0 Non-prescribed substance use: denies use Caffeine: No How often does anyone, including family, friends and others, physically hurt you: never How often does anyone, including family, friends and others, insult or talk down to you: never How often does anyone, including family, friends and others, threaten you with harm: never How often does anyone, including family, friends and others, scream or curse at you: never Little interest or pleasure in doing things: more than half the days Feeling down, depressed, or hopeless: more than half the days service: No Meds Home Medications and Allergies Home Medications Medication Instructions Recorded Confirmed Type Lactobacillus acidophilus 0.5 mg 1,000 mmu cells PO DAILY 12/22/21 05/04/23 History (100 million cell) tablet albuterol sulfate 2.5 mg/3 mL 2.5 mg inhalation Q6H PRN 12/22/21 05/04/23 History (0.083 %) solution for nebulization folic acid 1 mg tablet 3 mg PO DAILY 12/22/21 05/04/23 History ascorbic acid (vitamin C) 500 mg 1 g PO DAILY 01/16/22 05/04/23 History tablet cholecalciferol (vitamin D3) 50 50 mcg PO DAILY 01/16/22 05/04/23 History mcg (2,000 unit) capsule multivitamin 1 tab PO QAM 01/16/22 05/04/23 History mometasone-formoterol HFA 100 2 puff inhalation BID 02/02/23 05/04/23 History mcg-5 mcg/actuation aerosol inhaler sodium chloride 3 % for 4 ml inhalation .COMPLEX 02/02/23 05/04/23 History nebulization ferrous gluconate 324 mg (37.5 mg 324 mg PO DAILY 04/26/23 04/26/23 History iron) tablet paroxetine HCl 20 mg tablet 20 mg PO DAILY 04/26/23 05/04/23 History prednisone 5 mg tablet 7.5 mg PO DAILY 04/26/23 05/04/23 History Allergies Allergy/AdvReac Type Severity Reaction Status Date / Time NSAIDS (Non-Steroidal Allergy Severe GI bleed Verified 03/22/23 12:56 Anti-Inflamma terbinafine Allergy Intermediate Headache Verified 03/22/23 12:56 levofloxacin AdvReac Severe tendon Verified 03/22/23 12:56 rupture Exam Narrative: Exam Narrative: General: NAD, ALert, sitting up in recliner Eyes: wearing glasses Pulmonary: speaking in full sentences, on RA Wound: 2.5X1X1.5cm. undermining of 1cm 8-10 & 2-4 o'clock. drainage smaller serosang. 75% slough, 25% granulation. Marya-wound WNL. Psych: normal affect Const: Vital Signs, click to edit/add: Vital Signs - 24 hr 05/04/23 00:59 05/04/23 03:04 05/04/23 03:30 Temperature 97.9 F Pulse Rate Pulse Rate [Pulse Oximeter] 84 64 59 L Pulse Rate [orthos tatic lying Left P ulse Oximeter] Pulse Rate [orthos tatic sitting Left Pulse Oximeter] Pulse Rate [orthos tatic standing Lef t Pulse Oximeter] Respiratory Rate 18 16 16 Blood Pressure [Ri ght Arm] Blood Pressure [Ri ght Upper Arm] 97/58 L 108/56 L 103/53 L Blood Pressure [or thostatic lying Ri ght Arm] Blood Pressure [or thostatic sitting Right Arm] Blood Pressure [or thostatic standing Right Arm] Pulse Oximetry 99 94 98 Oxygen Delivery Me thod Room Air Room Air Room Air 05/04/23 04:30 05/04/23 05:35 05/04/23 06:10 Temperature 97.6 F Pulse Rate 68 Pulse Rate [Pulse Oximeter] 59 L 62 Pulse Rate [orthos tatic lying Left P ulse Oximeter] Pulse Rate [orthos tatic sitting Left Pulse Oximeter] Pulse Rate [orthos tatic standing Lef t Pulse Oximeter] Respiratory Rate 16 16 Blood Pressure [Ri ght Arm] 113/60 Blood Pressure [Ri ght Upper Arm] 110/54 L Blood Pressure [or thostatic lying Ri ght Arm] Blood Pressure [or thostatic sitting Right Arm] Blood Pressure [or thostatic standing Right Arm] Pulse Oximetry 97 99 Oxygen Delivery Nh thod Room Air Room Air 05/04/23 07:37 05/04/23 07:43 05/04/23 09:28 Temperature 97.6 F Pulse Rate 79 Pulse Rate [Pulse Oximeter] 72 Pulse Rate [orthos tatic lying Left P ulse Oximeter] Pulse Rate [orthos tatic sitting Left Pulse Oximeter] Pulse Rate [orthos tatic standing Lef t Pulse Oximeter] Respiratory Rate 20 16 Blood Pressure [Ri ght Arm] 124/60 Blood Pressure [Ri ght Upper Arm] Blood Pressure [or thostatic lying Ri ght Arm] Blood Pressure [or thostatic sitting Right Arm] Blood Pressure [or thostatic standing Right Arm] Pulse Oximetry 99 100 Oxygen Delivery Me thod Room Air Room Air 05/04/23 10:05 05/04/23 11:05 Temperature 98.0 F Pulse Rate Pulse Rate [Pulse Oximeter] 65 Pulse Rate [orthos tatic lying Left P ulse Oximeter] 70 Pulse Rate [orthos tatic sitting Left Pulse Oximeter] 83 Pulse Rate [orthos tatic standing Lef t Pulse Oximeter] 98 Respiratory Rate 16 Blood Pressure [Ri ght Arm] 110/49 L Blood Pressure [Ri ght Upper Arm] Blood Pressure [or thostatic lying Ri ght Arm] 105/68 Blood Pressure [or thostatic sitting Right Arm] 99/66 Blood Pressure [or thostatic standing Right Arm] 92/49 L Pulse Oximetry 94 Oxygen Delivery Me thod Room Air Documenting provider has reviewed patient's vital signs: yes Labs Labs: Short CBC 05/04/23 Range/Units 02:05 WBC 8.70 (4.50-11.00) K/uL Hgb 11.6 L (12.0-16.0) gm/dL Hct 36.7 (33.0-51.0) % Plt Count 182 (140-440) K/uL BMP 05/04/23 02:05 Sodium 136 Potassium 3.7 Chloride 98 Carbon Dioxide 29 BUN 44 H Creatinine 1.2 Glucose 125 H Calcium 9.2 Cardiac Enzymes 05/04/23 Range/Units 02:05 Troponin I 0.32 H* (0.01-0.04) ng/mL Liver Function 05/04/23 Range/Units 02:05 Total Bilirubin 0.8 (0.1-1.5) mg/dL AST 82 H (12-35) U/L ALT 69 H (4-35) U/L Alkaline Phosphatase 131 (40-150) U/L Albumin 3.5 (3.3-5.0) g/dL Urine 05/04/23 Range/Units 01:15 Urine Color Yellow (Yellow) Urine Appearance Clear (Clear) Urine pH 5.5 (5.0-8.5) Ur Specific [place] 1.020 (1.000-1.030) Urine Protein Negative (Negative) Urine Glucose (UA) Negative (Negative) Assessment and Plan Assessment and plan (1) Immunosuppression: Problem comment: Due to pancytopenia, methotrexate and prednisone therapy. Status: Acute (2) Pressure ulcer of other site, stage 3: Status: Acute (3) Intertriginous dermatitis associated with moisture: Status: Acute Plan 1. Abdominal wound: stable, no acute concerns. Wound cleansed and redressed by this promotion writer. Continue with dressings as ordered: Wound care order (supplies at bedside): thoroughly cleanse wound with vashe apply stimulen collagen to wound bed cut hydrofera blue to size of wound bed lightly moisten with normal saline, ring out excess place into woundbed, be cautious to not place onto intact skin bolster with silicone mesh (adaptic was used today, but okay to use mepitel) cover with mepilex 4X4 change EOD & PRN cleansing guaze, vashe, hydrofera elieser, mepitel, and jose at bedside for next dressing change to occur by nursing on 05/06/23. 2. Inguinal Groove/Pannus Fold Interigo/MASD: stable, continue to cleanse the area, pat dry, place interdry with end of cloth open to air to allow for wicking. Change daily.
--- NOTE | 2023-05-04 13:24 | P.IMPN_ITS ---
Progress Note: A&P Assessment and plan (1) Sepsis: Problem details: On admission and early in hospital stay patient had sepsis with fever and hypotension. Started on Zosyn and aggressive fluid resuscitation. Subsequently the source was felt to be urinary tract infection with Citrobacter. Status: Acute (2) Acute exacerbation of congestive heart failure: Problem details: On last admission had an increase in her furosemide dose. On this admission she appears to be metabolically dry. ProBNP is markedly increased however. Concern of heart failure secondary to her severe valvular disease Status: Acute (3) Weakness: Problem details: This is the patient's primary complaint with the last 2 admissions. She is also found to have other medical problems likely contributing to her acute on chronic weakness. Status: Acute (4) Frailty syndrome in geriatric patient: Problem details: Now self reporting she can take care of herself Status: Acute (5) Methotrexate adverse reaction: Problem details: With pancytopenia, elevated transaminases, chronic lung disease I am concerned about methotrexate toxicity. Will stop methotrexate pending outpatient follow- up with Rheumatology. Patient reports chief technologist is looking at starting a biologic medicine for her Status: Acute (6) Fatty liver: Problem details: Stable Status: Acute (7) Immunosuppression: Problem details: Due to pancytopenia, methotrexate and prednisone therapy. Status: Acute (8) Bronchiectasis: Problem details: Continue outpatient medications. Continue to work on clearing secretions. Also treat for hospital-acquired pneumonia Status: Acute (9) Hyperlipidemia: Status: Chronic (10) Severe aortic stenosis: Problem details: Echo done yesterday showed worsening valvular disease, particularly worsening aortic stenosis. Outpatient follow-up with Cardiology Status: Chronic (11) Mitral stenosis: Problem details: During his hospital stay echocardiogram showed progression of mitral stenosis Status: Chronic (12) Pancytopenia: Problem details: Uncertain cause. Improved today. Continue to hold methotrexate and monitor. May also be a side effect of valganciclovir. Status: Chronic (13) Altered mental status: Problem details: On both admissions patient had confusion and difficulty giving history. She gives me a history however of not really recalling any events that happened between the afternoon of discharge and the morning of re admission, about 2 days. Unclear if she was unconscious or just confused enough that she did not register her memories. Status: Acute (14) Non-ST elevated myocardial infarction (non-STEMI): Problem details: Patient has a new elevated troponin associated with worsening of her valvular heart disease, particularly her aortic stenosis. ProBNP is also much worse. I am concerned this contributing to her weakness and inability to care for herself. Will need to talk with Cardiology about a plan going forward. Status: Acute Plan She will be admitted to the hospital for evaluation of weakness, altered mental status and confusion and heart disease, severe aortic stenosis and elevated troponin. Subjective Date Seen: 05/04/23 Interval history: 77-year-old female readmitted to the hospital with weakness and altered mental status. Patient was hospitalized last week for an episode of weakness and il lness. See notes from last week for details. In summary, her last admission was also for profound weakness. She was hospitalized and diagnosed with sepsis with hypotension and fever. Ultimately this was thought to be due to urinary tract infection due to Citrobacter. She received about 1 week of Zosyn for treatment of this. There was a question also of a flare of her bronchiectasis. She did develop acute heart failure during her hospital stay this was thought to be due to her sepsis with aggressive fluid resuscitation and her severe aortic stenosis. She had diuresis after that and for 2 days prior to discharge she was able to breathe without supplemental oxygen. Her fever had resolved her blood pressure and other vital signs had normalized. She was able to ambulate fairly well and was able to independently make it to the bathroom and back. After discharge she was at home in her independent living apartment. She reports that afternoon she was doing okay. She does not remember much of what happened after the evening that she was discharged until last night when she came back to the hospital. She is unsure if she was unconscious. She reported being confused. She apparently called her daughter to come and check on her. Family found her incontinent of bowel and bladder in her bed. She does not recall falling, hitting her head. She has not had any chest pain. She is not short of breath. She has not had nausea vomiting. She is not aware of a fever. She has a chronic cough which is unchanged and productive of clear sputum. She tells me today she is just too weak to take care of herself Exam Narrative: Exam Narrative: She is alert and gives her own history. She can give very few details of what happened over the previous 2 days since discharge. Const: Vital Signs, click to edit/add: Vital Signs - 24 hr 05/04/23 00:59 05/04/23 03:04 05/04/23 03:30 Temperature 97.9 F Pulse Rate Pulse Rate [Pulse Oximeter] 84 64 59 L Pulse Rate [orthos tatic lying Left P ulse Oximeter] Pulse Rate [orthos tatic sitting Left Pulse Oximeter] Pulse Rate [orthos tatic standing Lef t Pulse Oximeter] Respiratory Rate 18 16 16 Blood Pressure [Ri ght Arm] Blood Pressure [Ri ght Upper Arm] 97/58 L 108/56 L 103/53 L Blood Pressure [or thostatic lying Ri ght Arm] Blood Pressure [or thostatic sitting Right Arm] Blood Pressure [or thostatic standing Right Arm] Pulse Oximetry 99 94 98 Oxygen Delivery Me thod Room Air Room Air Room Air 05/04/23 04:30 05/04/23 05:35 05/04/23 06:10 Temperature 97.6 F Pulse Rate 68 Pulse Rate [Pulse Oximeter] 59 L 62 Pulse Rate [orthos tatic lying Left P ulse Oximeter] Pulse Rate [orthos tatic sitting Left Pulse Oximeter] Pulse Rate [orthos tatic standing Lef t Pulse Oximeter] Respiratory Rate 16 16 Blood Pressure [Ri ght Arm] 113/60 Blood Pressure [Ri ght Upper Arm] 110/54 L Blood Pressure [or thostatic lying Ri ght Arm] Blood Pressure [or thostatic sitting Right Arm] Blood Pressure [or thostatic standing Right Arm] Pulse Oximetry 97 99 Oxygen Delivery Me thod Room Air Room Air 05/04/23 07:37 05/04/23 07:43 05/04/23 09:28 Temperature 97.6 F Pulse Rate 79 Pulse Rate [Pulse Oximeter] 72 Pulse Rate [orthos tatic lying Left P ulse Oximeter] Pulse Rate [orthos tatic sitting Left Pulse Oximeter] Pulse Rate [orthos tatic standing Lef t Pulse Oximeter] Respiratory Rate 20 16 Blood Pressure [Ri ght Arm] 124/60 Blood Pressure [Ri ght Upper Arm] Blood Pressure [or thostatic lying Ri ght Arm] Blood Pressure [or thostatic sitting Right Arm] Blood Pressure [or thostatic standing Right Arm] Pulse Oximetry 99 100 Oxygen Delivery Me thod Room Air Room Air 05/04/23 10:05 05/04/23 11:05 Temperature 98.0 F Pulse Rate Pulse Rate [Pulse Oximeter] 65 Pulse Rate [orthos tatic lying Left P ulse Oximeter] 70 Pulse Rate [orthos tatic sitting Left Pulse Oximeter] 83 Pulse Rate [orthos tatic standing Lef t Pulse Oximeter] 98 Respiratory Rate 16 Blood Pressure [Ri ght Arm] 110/49 L Blood Pressure [Ri ght Upper Arm] Blood Pressure [or thostatic lying Ri ght Arm] 105/68 Blood Pressure [or thostatic sitting Right Arm] 99/66 Blood Pressure [or thostatic standing Right Arm] 92/49 L Pulse Oximetry 94 Oxygen Delivery Me thod Room Air Documenting provider has reviewed patient's vital signs: yes Labs Labs: Laboratory Results - last 24 hr 05/04/23 05/04/23 05/04/23 01:15 01:19 02:05 WBC 8.70 RBC 3.67 L Hgb 11.6 L Hct 36.7 MCV 100 MCH 32 MCHC 32 RDW Coeff of [place] 16.8 H Plt Count 182 Neut % (Auto) 74.7 H Lymph % (Auto) 12.2 L [place] % (Auto) 8.2 Eos % (Auto) 0.3 Baso % (Auto) 0.1 Neut # (Auto) 6.50 Lymph # (Auto) 1.10 [place] # (Auto) 0.70 Eos # (Auto) 0.03 Baso # (Auto) 0.01 Abs Immat Gran (auto) 0.39 H Imm/Tot Granulo (auto) 4.5 Sodium 136 Potassium 3.7 Chloride 98 Carbon Dioxide 29 Anion Gap 9 BUN 44 H Creatinine 1.2 Estimated Creat Clear 33.51 Estimated GFR 47 Glucose 125 H Lactate 2.1 H Calcium 9.2 Magnesium 2.3 Total Bilirubin 0.8 AST 82 H ALT 69 H Alkaline Phosphatase 131 Troponin I 0.32 H* NT-Pro-B Natriuret Pep 41010 Total Protein 6.2 Albumin 3.5 Urine Color Yellow Urine Appearance Clear Urine pH 5.5 Ur Specific [place] 1.020 Urine Protein Negative Urine Glucose (UA) Negative Urine Ketones Negative Urine Blood Trace-intact A Urine Nitrite Negative Urine Bilirubin Negative Urine Urobilinogen 0.2 Ur Leukocyte Esterase Negative Urine RBC 0-2 Urine WBC 2-5 Ur Squamous Epith Cells Few Urine Bacteria Few A Hyaline Casts Moderate A POC Troponin I 0.30 H 05/04/23 03:40 WBC RBC Hgb Hct MCV MCH MCHC RDW Coeff of [place] Plt Count Neut % (Auto) Lymph % (Auto) [place] % (Auto) Eos % (Auto) Baso % (Auto) Neut # (Auto) Lymph # (Auto) [place] # (Auto) Eos # (Auto) Baso # (Auto) Abs Immat Gran (auto) Imm/Tot Granulo (auto) Sodium Potassium Chloride Carbon Dioxide Anion Gap BUN Creatinine Estimated Creat Clear Estimated GFR Glucose Lactate Calcium Magnesium Total Bilirubin AST ALT Alkaline Phosphatase Troponin I NT-Pro-B Natriuret Pep Total Protein Albumin Urine Color Urine Appearance Urine pH Ur Specific [place] Urine Protein Urine Glucose (UA) Urine Ketones Urine Blood Urine Nitrite Urine Bilirubin Urine Urobilinogen Ur Leukocyte Esterase Urine RBC Urine WBC Ur Squamous Epith Cells Urine Bacteria Hyaline Casts POC Troponin I 0.31 H Imaging Chest x-ray: Radiologist's impression: INDICATION: Weakness. TECHNIQUE: Chest 2 views. COMPARISON: 04/30/2023. FINDINGS: Cardiovascular and mediastinum: Heart size and vasculature are normal in caliber and appearance. Lungs and pleural spaces: Decreased multifocal airspace opacities. No new focal consolidation. No pleural effusions. No pneumothorax. Bones and soft tissues: No significant findings. IMPRESSION: Decreased multifocal airspace opacities. No new focal consolidation.
--- NOTE | 2023-05-04 16:52 | PC.SOCIAL ---
Discharge planning: Met with pt regarding discharge plan. Pt is requesting short term rehab placement after this hospital stay. Provided pt with resources list of snf facilities including state survey ratings. Pt is requesting placement at [facility] as first choice and [facility] [place] as second choice. Called and faxed information to [facility] and awaiting decision on admission. 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
--- NOTE | 2023-05-04 17:10 | PM.DS1 ---
DS: Providers Provider Date Seen: 05/04/23 Date of admission: 05/04/23 09:59 Primary care physician: Kyle Healy MD Admitting Clinician: Julio Ray MD Attending Physician on discharge: Mian Vasquez MD Date of Discharge: 05/04/23 DS: Diagnosis Discharge Diagnosis (1) Weakness: Status: Acute Problem details: This is the patient's primary complaint with the last 2 admissions. She is also found to have other medical problems likely contributing to her acute on chronic weakness. (2) Non-ST elevated myocardial infarction (non-STEMI): Status: Acute Problem details: Patient has a new elevated troponin associated with worsening of her valvular heart disease, particularly her aortic stenosis. ProBNP is also much worse. I am concerned this contributing to her weakness and inability to care for herself. Will need to talk with Cardiology about a plan going forward. (3) Aortic stenosis, severe: Status: Acute Problem details: See echocardiogram from April 29 (4) Acute exacerbation of congestive heart failure: Status: Acute Problem details: On last admission had an increase in her furosemide dose. On this admission she appears to be metabolically dry. ProBNP is markedly increased however. Concern of heart failure secondary to her severe valvular disease (5) Altered mental status: Status: Acute Problem details: On both admissions this past week patient had confusion and difficulty giving history. She gives me a history however of not really recalling any events that happened between the afternoon of discharge and the morning of re admission, about 2 days. Unclear if she was unconscious or just confused enough that she did not register her memories. (6) Frailty syndrome in geriatric patient: Status: Acute Problem details: On discharge 2 days ago she was able to take care of herself in terms of cognitive function and mobility (7) Sepsis: Status: Acute Problem details: On admission and early in hospital stay patient had sepsis with fever and hypotension. Started on Zosyn and aggressive fluid resuscitation. Subsequently the source was felt to be urinary tract infection with Citrobacter. (8) Methotrexate adverse reaction: Status: Acute Problem details: With pancytopenia, elevated transaminases, chronic lung disease I am concerned about methotrexate toxicity. Will stop methotrexate pending outpatient follow-up with Rheumatology. 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 (9) Fatty liver: Status: Acute Problem details: Stable (10) Immunosuppression: Status: Acute Problem details: Due to pancytopenia, methotrexate and prednisone therapy. (11) Bronchiectasis: Status: Acute Problem details: Continue outpatient medications. Continue to work on clearing secretions. Also treat for hospital-acquired pneumonia (12) COPD (chronic obstructive pulmonary disease): Status: Acute DS: Summary Hospital Course Hospital Course: 77-year-old female readmitted to the hospital 2 days after hospital discharge. She presents with 2 days of weakness and altered mental status. Unclear if she has had syncope. She denies chest pain or dyspnea at rest but does have exertional dyspnea. Nine days ago she was admitted to the hospital with weakness and confusion. At that time she was hypotensive and appeared to have sepsis. Ultimately was felt that the sepsis was possibly due to urinary tract infection with Citrobacter. She was treated with piperacillin tazobactam for 1 week and her symptoms of sepsis resolved. Her confusion and weakness also resolved relatively quickly. With resuscitation for her sepsis she did develop congestive heart failure. She had pulmonary edema. She was placed on high-flow oxygen and given diuresis. With this she relatively quickly resolved her heart failure signs and symptoms. At that time an echocardiogram was obtained and worsening of her aortic stenosis and mitral regurgitation. At the time she had a troponin of 0.03 and a proBNP of about 7000. She had pancytopenia during hospital stay and methotrexate was discontinued as a possible culprit for this. She was continued on valganciclovir another possible culprit for her pancytopenia. Her cell counts did improve during her hospital stay. With resolution of her heart failure and findings of sepsis she was discharged to home 2 days ago. Since being home reports she has not been doing well. She has mostly been in bed. She was incontinent of stool in bed. She was confused and remembers few details from the last 2 days. She reports being profoundly weak. Again denies fever, dyspnea, chest pain. At the time of re-admission last night her chest x-ray looked normal for her without heart failure. Her troponin came back at 0.3 to and her proBNP came back at 30,000, marked increases from 5 days ago when she was clinically in acute heart failure. Additional evaluation today shows no other obvious acute illness. I spoke with Cardiology, Dr. Atkinson, regarding her current status. There is concern that her profound weakness could be related to her heart disease. On that basis she is being transferred to [facility] for Cardiology consultation. I discussed this with the patient and she is very much interested in being transferred for this consultation with the understanding that valve surgery/TAVR would be a consideration. Status at Discharge Functional status at discharge: bed bound Overall status at discharge: patient is not back to baseline Time Spent with Patient Time attestation: Total time spent providing and/or coordinating discharge services: Exam Const: Vital Signs, click to edit/add: Vital Signs - 24 hr 05/04/23 00:59 05/04/23 03:04 05/04/23 03:30 Temperature 97.9 F Pulse Rate Pulse Rate [Pulse Oximeter] 84 64 59 L Pulse Rate [orthos tatic lying Left P ulse Oximeter] Pulse Rate [orthos tatic sitting Left Pulse Oximeter] Pulse Rate [orthos tatic standing Lef t Pulse Oximeter] Respiratory Rate 18 16 16 Blood Pressure [Ri ght Arm] Blood Pressure [Ri ght Upper Arm] 97/58 L 108/56 L 103/53 L Blood Pressure [or thostatic lying Ri ght Arm] Blood Pressure [or thostatic sitting Right Arm] Blood Pressure [or thostatic standing Right Arm] Pulse Oximetry 99 94 98 Oxygen Delivery Me thod Room Air Room Air Room Air 05/04/23 04:30 05/04/23 05:35 05/04/23 06:10 Temperature 97.6 F Pulse Rate 68 Pulse Rate [Pulse Oximeter] 59 L 62 Pulse Rate [orthos tatic lying Left P ulse Oximeter] Pulse Rate [orthos tatic sitting Left Pulse Oximeter] Pulse Rate [orthos tatic standing Lef t Pulse Oximeter] Respiratory Rate 16 16 Blood Pressure [Ri ght Arm] 113/60 Blood Pressure [Ri ght Upper Arm] 110/54 L Blood Pressure [or thostatic lying Ri ght Arm] Blood Pressure [or thostatic sitting Right Arm] Blood Pressure [or thostatic standing Right Arm] Pulse Oximetry 97 99 Oxygen Delivery Me thod Room Air Room Air 05/04/23 07:37 05/04/23 07:43 05/04/23 09:28 Temperature 97.6 F Pulse Rate 79 Pulse Rate [Pulse Oximeter] 72 Pulse Rate [orthos tatic lying Left P ulse Oximeter] Pulse Rate [orthos tatic sitting Left Pulse Oximeter] Pulse Rate [orthos tatic standing Lef t Pulse Oximeter] Respiratory Rate 20 16 Blood Pressure [Ri ght Arm] 124/60 Blood Pressure [Ri ght Upper Arm] Blood Pressure [or thostatic lying Ri ght Arm] Blood Pressure [or thostatic sitting Right Arm] Blood Pressure [or thostatic standing Right Arm] Pulse Oximetry 99 100 Oxygen Delivery Me thod Room Air Room Air 05/04/23 10:05 05/04/23 11:05 05/04/23 15:57 Temperature 98.0 F 98.0 F Pulse Rate Pulse Rate [Pulse Oximeter] 65 82 Pulse Rate [orthos tatic lying Left P ulse Oximeter] 70 Pulse Rate [orthos tatic sitting Left Pulse Oximeter] 83 Pulse Rate [orthos tatic standing Lef t Pulse Oximeter] 98 Respiratory Rate 16 16 Blood Pressure [Ri ght Arm] 110/49 L 116/66 Blood Pressure [Ri ght Upper Arm] Blood Pressure [or thostatic lying Ri ght Arm] 105/68 Blood Pressure [or thostatic sitting Right Arm] 99/66 Blood Pressure [or thostatic standing Right Arm] 92/49 L Pulse Oximetry 94 96 Oxygen Delivery Me thod Room Air Room Air 05/04/23 16:21 Temperature Pulse Rate 71 Pulse Rate [Pulse Oximeter] Pulse Rate [orthos tatic lying Left P ulse Oximeter] Pulse Rate [orthos tatic sitting Left Pulse Oximeter] Pulse Rate [orthos tatic standing Lef t Pulse Oximeter] Respiratory Rate Blood Pressure [Ri ght Arm] Blood Pressure [Ri ght Upper Arm] Blood Pressure [or thostatic lying Ri ght Arm] Blood Pressure [or thostatic sitting Right Arm] Blood Pressure [or thostatic standing Right Arm] Pulse Oximetry Oxygen Delivery Me thod DS: Data Data Completed and Pending Completed studies during hospitalization: Procedures Drainage of Right Pleural Cavity, Percutaneous Approach, Diagnostic (12/21/21) Insertion of Infusion Device into Left Internal Jugular Vein, Percutaneous Approach (12/21/21) Labs on day of discharge: Labs from last 24 hours 05/04/23 05/04/23 05/04/23 03:40 02:05 01:19 WBC 8.70 RBC 3.67 L Hgb 11.6 L Hct 36.7 MCV 100 MCH 32 MCHC 32 RDW Coeff of Nav[place] 16.8 H Plt Count 182 Neut % (Auto) 74.7 H Lymph % (Auto) 12.2 L [place] % (Auto) 8.2 Eos % (Auto) 0.3 Baso % (Auto) 0.1 Neut # (Auto) 6.50 Lymph # (Auto) 1.10 [place] # (Auto) 0.70 Eos # (Auto) 0.03 Baso # (Auto) 0.01 Abs Immat Gran (auto) 0.39 H Imm/Tot Granulo (auto) 4.5 Sodium 136 Potassium 3.7 Chloride 98 Carbon Dioxide 29 Anion Gap 9 BUN 44 H Creatinine 1.2 Estimated Creat Clear 33.51 Estimated GFR 47 Glucose 125 H Lactate 2.1 H Calcium 9.2 Magnesium 2.3 Total Bilirubin 0.8 AST 82 H ALT 69 H Alkaline Phosphatase 131 Troponin I 0.32 H* NT-Pro-B Natriuret Pep 16712 Total Protein 6.2 Albumin 3.5 Urine Color Urine Appearance Urine pH Ur Specific Sparks Urine Protein Urine Glucose (UA) Urine Ketones Urine Blood Urine Nitrite Urine Bilirubin Urine Urobilinogen Ur Leukocyte Esterase Urine RBC Urine WBC Ur Squamous Epith Cells Urine Bacteria Hyaline Casts POC Troponin I 0.31 H 0.30 H 05/04/23 01:15 WBC RBC Hgb Hct MCV MCH MCHC RDW Coeff of [place] Plt Count Neut % (Auto) Lymph % (Auto) [place] % (Auto) Eos % (Auto) Baso % (Auto) Neut # (Auto) Lymph # (Auto) [place] # (Auto) Eos # (Auto) Baso # (Auto) Abs Immat Gran (auto) Imm/Tot Granulo (auto) Sodium Potassium Chloride Carbon Dioxide Anion Gap BUN Creatinine Estimated Creat Clear Estimated GFR Glucose Lactate Calcium Magnesium Total Bilirubin AST ALT Alkaline Phosphatase Troponin I NT-Pro-B Natriuret Pep Total Protein Albumin Urine Color Yellow Urine Appearance Clear Urine pH 5.5 Ur Specific [place] 1.020 Urine Protein Negative Urine Glucose (UA) Negative Urine Ketones Negative Urine Blood Trace-intact A Urine Nitrite Negative Urine Bilirubin Negative Urine Urobilinogen 0.2 Ur Leukocyte Esterase Negative Urine RBC 0-2 Urine WBC 2-5 Ur Squamous Epith Cells Few Urine Bacteria Few A Hyaline Casts Moderate A POC Troponin I Preliminary micro results at discharge 05/04/23 01:15 Urine Culture - Preliminary Urine,Clean Catch Culture in Progress Discharge Plan Discharge Disposition: [facility] Date of Admission: 05/04/23 09:59 Attending Provider on Discharge: Alejandro Vasquez Primary Care Provider: Kyle Healy Discharge Orders: Transfer of Care to Other Hospital (ORDER); Ordered 05/04/23 Ordered By: Alejandro Vasquez Oxygen: No
--- NOTE | 2023-05-04 18:36 | PC.NURSE ---
Pt alert and oriented. VSS. Pt had complaints of pain ranging from 0-4; see EMAR for intervention. Pt assist of one with gait belt and walker. Pt?s dressing dry and intact; changed today by Yovany (wound care). Pt to be transferred to [place] nurse to nurse report done with Eva charge nurse at [place] Pt will be going to unit 5500 room 5049. Awaiting EMS transport.?
--- NOTE | 2023-05-04 21:57 | PC.NURSE ---
Pt transferred to [facility] via EMS at 2133. A&O pleasant and cooperative. VSS. denies chest pain. reports right hip pain. PRN norco given w/ stated relief.
== END 2023-05-04 21:34 | disposition short-term general hospital (02) | DRG 280 ==
LOC: ED 05:01 → MEDSURG 05:27
PROVIDERS: Admitting Provider Internal Medicine; Emergency Provider Family Medicine; PCP Family Medicine; Visit Provider Internal Medicine
DX: I21.4 Non-ST elevation (NSTEMI) myocardial infarction (principal); I50.43 Acute on chronic combined systolic (congestive) and diastolic (congestive) heart failure; A41.9 Sepsis, unspecified organism; I13.0 Hypertensive heart and chronic kidney disease with heart failure and stage 1 through stage 4 chronic kidney disease, or unspecified chronic kidney disease; D61.818 Other pancytopenia; B25.9 Cytomegaloviral disease, unspecified; H30.90 Unspecified chorioretinal inflammation, unspecified eye; N39.0 Urinary tract infection, site not specified; E46 Unspecified protein-calorie malnutrition; N18.30 Chronic kidney disease, stage 3 unspecified; T45.1X5A Adverse effect of antineoplastic and immunosuppressive drugs, initial encounter; R53.1 Weakness; I48.0 Paroxysmal atrial fibrillation; J44.9 Chronic obstructive pulmonary disease, unspecified; B96.89 Other specified bacterial agents as the cause of diseases classified elsewhere; R41.82 Altered mental status, unspecified; I08.0 Rheumatic disorders of both mitral and aortic valves; M06.9 Rheumatoid arthritis, unspecified; F32.A Depression, unspecified; F41.9 Anxiety disorder, unspecified; Z79.01 Long term (current) use of anticoagulants; Z79.631 Long term (current) use of antimetabolite agent; Z79.52 Long term (current) use of systemic steroids; K76.0 Fatty (change of) liver, not elsewhere classified; S31.109A Unspecified open wound of abdominal wall, unspecified quadrant without penetration into peritoneal cavity, initial encounter; J47.9 Bronchiectasis, uncomplicated
CPT/HCPCS: 36415; 71046; 80053; 81003; 81015; 83605; 83735; 83880; 84484; 85025; 87040; 87086; 87493; 93005; 97110; 97162; 97166; 97535; 99284; 99285; A9153; A9270; G0378; J7030; J7512

== ENCOUNTER 2023-06-04 12:36 | Outpatient (CLI) | payer MEDICARE, OTHER, SELFPAY ==
--- OUTSIDE RECORDS SUMMARY | 2023-06-04 12:38 | XMS_ITS | Continuity of Care Document ---
Author Name Unknown Organization [facility] Address [address] [place] [address] Phone Care Team Providers Care Senior Licensing Manager Name Role Phone Ritchie Mclaughlin MD [...] before a meal 20 MG - Active Rose[place] 5 mg-325 mg tablet take 1 - [...] by oral route 4 times every day [id number] UNITS - Active duloxetine 30 mg capsule,delayed release 1 cap PO qd for 2 weeks then may increase to 2 caps PO qd - Active Procedures Procedure Date OFFICE/OUTPATIENT VISIT, [facility] Advance Directives Directive Yes / No Effective Date File Name No Information Encounters Encounter Description Practice Location Reason(s) For Visit Diagnoses Date Provider Providers Copied on Encounter [facility], [address] [address], [place], [place], [id number], tel:[phone] [facility] No Information 3 Lissette Dugan. [address] [address], [place], [place], [id number] . tel: [phone] OFFICE/OUTPA TIENT VISIT, [facility] [place] [facility], [address] [address], [place], [place], [id number], tel:[phone] [facility] Musculoskelet al Pain (chief complaint) Rheumatoid arthritis, unspecifiedFi bromyalgia 8 Yves Allen. [address] [address], [place], [place], [id number] , [place]. tel: [phone] Referring Provider: Alejandro Marinelli MD, [address] [address], [place], [address] . tel:[phone] Family History Family Member Type Diagnosis Age At Onset Mother Problem (finding) Alive and well Father Problem (finding) prostate cancer (Cause Of ) Mother Problem (finding) malignant neop lasm of breast in first degree relative Payers Payer name Insurance type Covered alliance party ID Authoriza tion(s) [place] [id number] [place] Supplemental CI [id number] Social History Type Description Quantity Date Captured [...] 15 years ago. States she comes to [place] every 9 years and would like to establish care with our office today. Patient states she had established care with her Acid Conditioning Worker back in [place] Dr. Henley and patient has brought some [...] medications for her pain. States she takes Rose[place] prescribed by her previous Acid Conditioning Worker Dr. Henley and states this takes the edge off but phillips not get full relief.Patient states she has tried Indocin 60mg but had a GI bleed due to taking this. States from 1532-7116 she tried Humira and states she could not afford it due to being on Medicare. States she also tried Orencia , Rituxan and Acetemra infusions in the past and states this was ineffective. States she is currently taking Remicade infusions and states she has them every 2 months in [facility]. States the Remicade has been increased twice sine starting this due to it being ineffective. Pt is currently taking Alendronate 70mg, FA, [place] 5-325mg PRN, Prednisone 2mg QD, MTX 5mg QWKPrior Rheumatology in [place] Dr. Swapnil Henley. Patient has records with [...]
--- OUTSIDE RECORDS SUMMARY | 2023-06-04 12:39 | XMS_ITS | Continuity of Care Document ---
Author Name Unknown Organization [facility] Address [address] [place] [address] Phone Care Team Providers Care Corporate Law Assistant Name Role Phone Unavailable Unavailable Unavailable Advance Directives Directive Yes / No Effective Date File Name No Information Encounters Encounter Description Practice Location Reason(s) For Visit Diagnoses Date Provider Providers Copied on Encounter [facility], [address], [place], [address], [place] tel:[phone] [facility] No Information 0 [phone] No Information [...]
--- OUTSIDE RECORDS SUMMARY | 2023-06-04 12:39 | XMS_ITS | Continuity of Care Document ---
Author Name Unknown Organization [facility] Address [address] [place] [address] Phone Care Team Providers Care Beveling Machine Operator Name Role Phone Bailee Jeter MD Unavailable Unavailable Allergies, Adverse Reactions, Alerts [...] mL (20 mg/mL) intravenous solution as per pollution control engineer - No Longer Active Rasuvo (PF) 12.5 mg/0.25 mL subcutaneous auto-injector per rheumatology - No Longer Active prednisone 5 mg tablet take 1 tablet by oral route every day 5 MG - No Longer Active Procedures Procedure Date Unlisted Eval & Mgmt Serv Offic outpt EM [facility] Advance Directives Directive Yes / No Effective Date File Name No Information Encounters Encounter Description Practice Location Reason(s) For Visit Diagnoses Date Provider Providers Copied on Encounter Unlisted Eval & Mgmt Serv [facility], [address], [place], [place], [id number], tel:[phone] [facility] Infusion. (chief complaint) Rheumatoid arthritis, unspecified Corona Morocho. [address] [place] [address].,, [address], [place], [place], [id number], . tel:[phone] Referring Provider: Bailee Jeter [address] [place], [place] [address] [address], [address], [place], [address]. tel:[phone] Offic outpt EM [facility], [address], [place], [place], [address], tel:[phone] [facility] HTN. (chief complaint)e care (chief complaint) Elevated blood pressure readingEdema Corona Morocho. [address] [place] [address],, [address], [place], [place], [id number], [place]. tel:[phone] Referring Provider: Bailee Jeter [address] [place] [address], [address], [place], [address]. tel:[phone] Family History Family Member Type Diagnosis Age At Onset Mother Problem (finding) malignant neop lasm of breast in first degree relative Mother Problem (finding) stroke Father Problem (finding) prostate cancer Mother Problem (finding) hypertension Payers Payer name Insurance type Covered libertarian ID Authoriza tion(s) Medicare MB [id number] [place] [id number] Social History Type Description Quantity Date Captured [...] of HTN. Previous PCP retired. 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 Reports hx of RA, followed by pollution control engineer in [place]. Reports was seen in ER a few [...] arthritis, unspecifie d impression offered referral to rheumatologi . she will call back. Patient Care Teams Name Effective Dates (start - stop) Status Members No Information
== END 2023-06-04 12:37 | disposition home or self-care (01) ==
LOC: WOUND 12:36
PROVIDERS: PCP Family Medicine; Visit Provider Family Medicine
DX: L89.894 Pressure ulcer of other site, stage 4 (principal); I50.20 Unspecified systolic (congestive) heart failure
CPT/HCPCS: 11042

== ENCOUNTER 2023-06-11 13:48 | Outpatient (CLI) | payer MEDICARE, OTHER, SELFPAY ==
--- OUTSIDE RECORDS SUMMARY | 2023-06-11 13:50 | XMS_ITS | Continuity of Care Document ---
Author Name Unknown Organization [facility] Address [address] [place] [address] Phone Care Team Providers Care Ordained Minister Name Role Phone Ritchie Mclaughlin MD Unavailable [...] before a meal 20 MG - Active [place] 5 mg-325 mg tablet take 1 - [...] by oral route 4 times every day [id number] UNITS - Active duloxetine 30 mg capsule,delayed release 1 cap PO qd for 2 weeks then may increase to 2 caps PO qd - Active Procedures Procedure Date OFFICE/OUTPATIENT VISIT, [facility] Advance Directives Directive Yes / No Effective Date File Name No Information Encounters Encounter Description Practice Location Reason(s) For Visit Diagnoses Date Provider Providers Copied on Encounter [facility], [address] [address], [place], [place], [id number], tel:[phone] [facility] No Information 3 Lissette Dugan. [address] [address], [place], [place], [id number] . tel: [phone] OFFICE/OUTPA TIENT VISIT, [facility], [address] [address], [place], [place], [id number], tel:[phone] [facility] Musculoskelet al Pain (chief complaint) Rheumatoid arthritis, unspecifiedFi bromyalgia 8 Yves Allen. [address] [address], [place], [place], [id number] , [place]. tel: [phone] Referring Provider: Alejandro Marinelli MD, [address] [address], [place], [address] . tel:[phone] Family History Family Member Type Diagnosis Age At Onset Mother Problem (finding) Alive and well Father Problem (finding) prostate cancer (Cause Of ) Mother Problem (finding) malignant neop lasm of breast in first degree relative Payers Payer name Insurance type Covered libertarian ID Authoriza tion(s) [place] QBI MB [id number] [place] [employer] [place] Supplemental CI [id number] Social History Type Description Quantity Date Captured [...] 15 years ago. States she comes to [place] every 9 years and would like to establish care with our office today. Patient states she had established care with her Gauger Chief Delivery back in [place] Dr. Henley and [...] medications for her pain. States she takes [place] prescribed by her previous Gauger Chief Delivery Dr. Henley and states this takes the edge off but phillips not get full relief.Patient states she has tried Indocin 60mg but had a GI bleed due to taking this. States from 1631-2583 she tried Humira and states she could not afford it due to being on Medicare. States she also tried Orencia , Rituxan and Acetemra infusions in the past and states this was ineffective. States she is currently taking Remicade infusions and states she has them every 2 months in [facility]. States the Remicade has been increased twice sine starting this due to it being ineffective. Pt is currently taking Alendronate 70mg, FA, [place] 5-325mg PRN, Prednisone 2mg QD, MTX 5mg [...]
--- OUTSIDE RECORDS SUMMARY | 2023-06-11 13:51 | XMS_ITS | Continuity of Care Document ---
Author Name Unknown Organization [facility] Address [address] [facility] [address] [place] [address] Phone Care Team Providers Care Piercing Mill Operator Name Role Phone Bailee Jeter MD [...] needed for pain 1.00 tablet - Active atenolol 25 mg tablet take 1 tablet by oral route every day 25 MG - Active folic acid 1 mg tablet take 1 tablet by oral route every day 1 MG - Active furosemide 40 mg tablet take 1 tablet by oral route every day 40 MG - Active prednisone 20 mg tablet take2 tablets by oral route every day - No Longer Active prednisone 5 mg tablet take 1 tablet by oral route every day 5 MG - No Longer Active Rasuvo (PF) 12.5 mg/0.25 mL subcutaneous auto-injector per rheumatology - No Longer Active Actemra 400 mg/20 mL (20 mg/mL) intravenous solution as per information systems security manager - No Longer Active potassium chloride ER 20 mEq tablet,extended release take 1 tablet by oral route every day with food 20 MEQ - No Longer Active omeprazole 40 mg capsule,delayed release take 1 capsule by oral route every day before a meal 40 MG - No Longer Active Procedures Procedure Date Unlisted Eval & Mgmt Serv Offic outpt EM [facility] Advance Directives Directive Yes / No Effective Date File Name No Information Encounters Encounter Description Practice Location Reason(s) For Visit Diagnoses Date Provider Providers Copied on Encounter Unlisted Eval & Mgmt Serv [facility], [address], [place], [place], [id number], tel:[phone] [facility] Infusion. (chief complaint) Rheumatoid arthritis, unspecified Corona Morocho. [address] [place] [address].,, [address], [place], [place], [id number], . tel:[phone] Referring Provider: Bailee Jeter [address] [place], [place] [address] [facility], [address], [place], [address]. tel:[phone] [facility], [address], [place], [place], [id number], tel:[phone] [facility] HTN. (chief complaint)e care (chief complaint) Elevated blood pressure readingEdema Corona Morocho. [address] [place] [address],, [address], [place], [place], [id number], [place]. tel:[phone] Referring Provider: Bailee Jeter [address] [place] [place] [address], [address], [place], [address]. tel:[phone] Family History Family Member Type Diagnosis Age At Onset Mother Problem (finding) malignant neop lasm of breast in first degree relative Mother Problem (finding) stroke Father Problem (finding) prostate cancer Mother Problem (finding) hypertension Payers Payer name Insurance type Covered green party ID Authoriza tion(s) Medicare MB [id number] Nelson [id number] Social History Type Description Quantity Date Captured [...] of HTN. Previous PCP retired. 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 Reports hx of RA, followed by information systems security manager in [place]. Reports was seen in ER a few [...]
--- OUTSIDE RECORDS SUMMARY | 2023-06-11 13:51 | XMS_ITS | Continuity of Care Document ---
Author Name Unknown Organization [facility] Address [address] [place] [address] Phone Care Team Providers Care Canary Raiser Name Role Phone Unavailable Unavailable Unavailable Advance Directives Directive Yes / No Effective Date File Name No Information Encounters Encounter Description Practice Location Reason(s) For Visit Diagnoses Date Provider Providers Copied on Encounter Z [facility], [address], [place], [address], [place] tel:[phone] [facility] No Information [phone] No Information Family History Family Member Type Diagnosis Age At Onset No Information Payers Payer name Insurance type Covered republican ID Authoriza tion(s) No Information Social History [...]
== END 2023-06-11 13:49 | disposition home or self-care (01) ==
LOC: WOUND 13:48
PROVIDERS: PCP Family Medicine; Visit Provider Nurse Practitioner Family
DX: L89.894 Pressure ulcer of other site, stage 4 (principal)
CPT/HCPCS: 11042

== ENCOUNTER 2023-06-21 11:56 | Emergency (ER) | payer MEDICARE, OTHER, SELFPAY ==
[2023-06-21] VITALS (16 sets, daily range): BP systolic 102–136; BP diastolic 43–56; PULSE 62–74; RESP 16–18; TEMP 36.5–36.8; O2SAT 97–100; BMI 26.9
--- NOTE | 2023-06-21 12:06 | CRLHL7_ITS ---
For Patients: As a result of the Century Cures Act, medical imaging exams and procedure reports are released immediately into your electronic medical record. You may view this report before your referring provider. If you have questions, please contact your health care provider. INDICATION: Post upper swelling with only TAVR. TECHNIQUE: Multiple axial images were obtained from the diaphragm to the symphysis pubis without contrast. Sagittal and coronal re-formatted images were obtained. COMPARISON: 12/21/2021. FINDINGS: There are minimal bilateral effusions decreased from the previous study. There is an aortic valve replacement. There are calcification of the mitral valve anulus. There is atelectasis in lung bases. The liver, pancreas and adrenal glands are unremarkable. There are calcifications in the spleen consistent with previous granulomatous disease. The gallbladder is surgically absent. The left kidney is absent. There is no stone seen in the right kidney or ureter. There is no hydronephrosis. There is no evidence of a bowel obstruction. There is a large amount of stool in the ascending and transverse colon. The abdominal aorta is normal in caliber. There are atherosclerotic calcifications. There are calcified uterine fibroids. There is stranding of the fat in the right groin and lower abdomen. There is increased soft tissue in the right groin and anterior abdominal wall with consistent with a hematoma. There is also increased soft tissue in the right retroperitoneal space consistent with a retroperitoneal hematoma measuring approximately 7.1 x 2.5 cm on image #82 of series 2. This measures approximately 14 cm in the craniocaudal dimension. There is fusion at L4-5. There are degenerative changes in the spine IMPRESSION: 1. Hematoma in the right lower anterior abdominal wall and retroperitoneal space likely secondary to the patient`s recent procedure. Stranding of the subcutaneous fat in the right groin. 2. Status post cholecystectomy. 3. Aortic valve replacement. 4. Minimal bilateral pleural effusions. Please note that all CT scans at this facility use dose modulation, iterative reconstruction, and/or weight-based dosing when appropriate to reduce radiation dose to as low as reasonably achievable. Dictated by Alejandro Centeno MD @ 06/21/2023 1:30:33 PM (Electronically Signed)
--- NOTE | 2023-06-21 12:06 | CRLHL7_ITS ---
For Patients: As a result of the Century Cures Act, medical imaging exams and procedure reports are released immediately into your electronic medical record. You may view this report before your referring provider. If you have questions, please contact your health care provider. INDICATION: Right leg pain and swelling. Status post TAVR procedure. FINDINGS: Right lower extremity venous ultrasound was performed using grayscale imaging with color Doppler and spectral analysis. The right common femoral vein, superficial femoral vein and popliteal vein are all fully compressible with spontaneous venous flow and augmentation. The peroneal vein, posterior tibial vein, greater saphenous vein and profunda femoral vein are patent. The contralateral left common femoral vein is patent. IMPRESSION: No evidence of deep venous thrombosis in the right lower extremity veins. Dictated by Alejandro Centeno MD @ 06/21/2023 1:40:54 PM (Electronically Signed)
--- NOTE | 2023-06-21 12:09 | ED_ITS ---
HPI - General Adult General Chief complaint: Skin/Abscess/Foreign Body Stated complaint: heart procedure on wed, groin pain Time Seen by Provider: 06/21/23 11:59 History of Present Illness HPI narrative: Patient is a 78 year white female recently underwent a TAVR procedure on the 5 days ago, since then she has had significant bruising about her lower abdomen and upper leg. She has a wound in her right groin that has yet to fully heal. She does not feel feverish or ill. She does have a good amount of pain and burning feeling in her right groin. She has had chronic lower extremity swelling, she denies this being markedly worse but she has bruising that goes all the across her lower abdomen into her groin and into her upper right leg. She came in because of the pain today. She feels better from the TAVR. She continues take her Eliquis. Related Data Home Medications Medication Instructions Recorded Confirmed Lactobacillus acidophilus 0.5 mg 1,000 mmu cells PO DAILY 12/22/21 05/04/23 (100 million cell) tablet albuterol sulfate 2.5 mg/3 mL 2.5 mg inhalation Q6H PRN 12/22/21 05/04/23 (0.083 %) solution for nebulization folic acid 1 mg tablet 3 mg PO DAILY 12/22/21 05/04/23 ascorbic acid (vitamin C) 500 mg 1 g PO DAILY 01/16/22 05/04/23 tablet cholecalciferol (vitamin D3) 50 50 mcg PO DAILY 01/16/22 05/04/23 mcg (2,000 unit) capsule multivitamin 1 tab PO QAM 01/16/22 05/04/23 mometasone-formoterol HFA 100 2 puff inhalation BID 02/02/23 05/04/23 mcg-5 mcg/actuation aerosol inhaler sodium chloride 3 % for 4 ml inhalation .COMPLEX 02/02/23 05/04/23 nebulization paroxetine HCl 20 mg tablet 20 mg PO DAILY 04/26/23 05/04/23 prednisone 5 mg tablet 7.5 mg PO DAILY 04/26/23 05/04/23 Previous Rx's Medication Instructions Recorded rosuvastatin 5 mg tablet See Rx Instructions .Route 07/09/22 .COMPLEX #90 tabs metoprolol succinate 25 mg 25 mg PO BID #180 tabs 02/16/23 tablet,extended release 24 hr valganciclovir 450 mg tablet See Rx Instructions .Route 02/24/23 .COMPLEX #90 tabs apixaban 5 mg tablet (Eliquis) 2.5 mg (1/2 x 5 mg) PO BID #90 tabs 03/23/23 furosemide 20 mg tablet 40 mg (2 x 20 mg) PO DAILY #90 tabs 05/02/23 ferrous gluconate 324 mg (37.5 mg 324 mg PO DAILY #30 tabs 06/09/23 iron) tablet hydrocodone 5 mg-acetaminophen 325 1 tab PO Q6H PRN pain #56 tabs 06/09/23 mg tablet Allergies Allergy/AdvReac Type Severity Reaction Status Date / Time NSAIDS (Non-Steroidal Allergy Severe GI bleed Verified 06/21/23 15:22 Anti-Inflamma terbinafine Allergy Intermediate Headache Verified 06/21/23 15:22 levofloxacin AdvReac Severe tendon Verified 06/21/23 15:22 rupture Review of Systems 2 Status of ROS: Reports: 6 or more systems reviewed and unremarkable except as noted in History and below [facility] Medical History Non-ST elevated myocardial infarction (non-STEMI) ?I21.4 - Non-ST elevation (NSTEMI) myocardial infarction (ICD-10) Altered mental status ?R41.82 - Altered mental status, unspecified (ICD-10) Essential hypertension ?I10 - Essential (primary) hypertension (ICD-10) 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 - Cytomegaloviral disease, unspecified (ICD-10) ?H30.90 - Unspecified chorioretinal inflammation, unspecified eye (ICD-10) Rheumatoid arthritis ?M06.9 - Rheumatoid arthritis, unspecified (ICD-10) Paroxysmal atrial fibrillation ?I48.0 - Paroxysmal atrial fibrillation (ICD-10) Sepsis ?A41.9 - Sepsis, unspecified organism (ICD-10) Hypoxic respiratory failure ?J96.91 - Respiratory failure, unspecified with hypoxia (ICD-10) Methotrexate adverse reaction ?T45.1X5A - Adverse effect of antineoplastic and immunosuppressive drugs, initial encounter (ICD-10) Fatty liver ?K76.0 - Fatty (change of) liver, not elsewhere classified (ICD-10) Pleural effusion ?J90 - Pleural effusion, not elsewhere classified (ICD-10) Chronic wound ?T14.8XXA - Other injury of unspecified body region, initial encounter (ICD- 10) Immunosuppression ?D84.9 - Immunodeficiency, unspecified (ICD-10) Enrolled in chronic care management ?Z78.9 - Other specified health status (ICD-10) History of kidney stones ?Z87.442 - Personal history of urinary calculi (ICD-10) POLST (Physician Orders for Life-Sustaining Treatment) ?Z78.9 - Other specified health status (ICD-10) Mitral annular calcification ?I05.9 - Rheumatic mitral valve disease, unspecified (ICD-10) Abnormal LFTs (liver function tests) ?R79.89 - Other specified abnormal findings of blood chemistry (ICD-10) Surgical History S/P cataract extraction ?Z98.49 - Cataract extraction status, unspecified eye (ICD-10) S/P cholecystectomy ?Z90.49 - Acquired absence of other specified parts of digestive tract (ICD- 10) History of left nephrectomy ?Z90.5 - Acquired absence of kidney (ICD-10) History of lumbar fusion (04/2010) ?Z98.1 - Arthrodesis status (ICD-10) History of lithotripsy ?Z98.890 - Other specified postprocedural states (ICD-10) Family History Mother Breast cancer, Onset Age: 70 Sister Breast cancer, Onset Age: 35 Social History What is your current living situation?: I presently have a place to live Problems where you live: no known problems Problems where you live details: na In the past 12 months, utilities in danger of being shut off: no In past 12 months, lack of transportation kept you from medical appts, meetings, work, or getting things needed for daily living: no Smoking Status: Never smoker Do you use any of these nicotine containing products: None Second hand tobacco smoke exposure: No How often do you have a drink containing alcohol: never How often do you have six or more drinks on one occasion: Never AUDIT-C Alcohol total score: 0 Non-prescribed substance use: denies use Caffeine: No How often does anyone, including family, friends and others, physically hurt you : never How often does anyone, including family, friends and others, insult or talk down to you: never How often does anyone, including family, friends and others, threaten you with harm: never How often does anyone, including family, friends and others, scream or curse at you: never Little interest or pleasure in doing things: more than half the days Feeling down, depressed, or hopeless: more than half the days service: No Exam Narrative: Exam Narrative: Objective: Patient is alert orient x3 Medical chart reviewed Patient is alert or x3 as mention she is in no distress, noncyanotic, talks in even unlabored sentences. Her abdomen shows a large pannus. She has got bruising in her right lower abdomen she has got a non healed wound in her right groin. That will need some wound care. This is about 3 cm by a half a cm. Does not appear infected. She has violaceous discoloration of her upper right thigh across her abdomen into her groin and to the left side of her abdomen. She has no left leg pain or other concern. She does not really describe leg pain but describes pain in her groin. There does not appear to be any swelling or increased size pulsatile mass. I am able to move and stretch her leg around without any difficulty and she has no pain on hip internal external rotation or flexion extension. Distal CMS is intact. Const: Vital Signs, click to edit/add: Vital Signs - 24 hr 06/21/23 12:07 06/21/23 12:31 06/21/23 14:18 Temperature 98.3 F Pulse Rate [Pulse Oximeter] 73 64 Respiratory Rate 18 18 Blood Pressure [Ri t Upper Arm] 134/56 L 136/52 L Pulse Oximetry 100 98 98 Oxygen Delivery Me thod Room Air Room Air Course Vital Signs Vital signs: Initial Vital Signs Temperature 98.3 F 06/21/23 12:07 Temperature Source Temporal Artery Scan 06/21/23 12:07 Pulse Rate 73 06/21/23 12:07 Pulse Rhythm Regular 06/21/23 12:07 Respiratory Rate 18 06/21/23 12:07 Blood Pressure 134/56 L 06/21/23 12:07 Blood Pressure Mean 82 06/21/23 12:07 Blood Pressure Position Supine 06/21/23 12:07 Pulse Oximetry 100 06/21/23 12:07 Oxygen Delivery Method Room Air 06/21/23 12:07 Vital Signs Temperature 98.3 F 06/21/23 12:07 Pulse Rate 73 06/21/23 12:07 Respiratory Rate 18 06/21/23 12:07 Blood Pressure 134/56 L 06/21/23 12:07 Pulse Oximetry 100 06/21/23 12:07 Oxygen Delivery Method Room Air 06/21/23 12:07 Temperature 98 F 06/21/23 16:40 Pulse Rate 66 06/21/23 16:40 Respiratory Rate 17 06/21/23 16:40 Blood Pressure 128/52 L 06/21/23 16:40 Pulse Oximetry 98 06/21/23 16:21 Oxygen Delivery Method Room Air 06/21/23 14:18 Medications Administered Medications: Discontinued Medications Generic Name Dose Route Start Last Admin Trade Name Freq PRN Reason Stop Dose Admin Hydrocodone Bitart/Acetaminophen 1 tab 06/21/23 12:06 06/21/23 14:05 Hydrocodone-Acetamin 5-325 Mg 1 Tab PO 06/21/23 12:07 1 tab ONCE ONE Administration Hydromorphone HCl 0.5 mg 06/21/23 17:14 06/21/23 17:17 Hydromorphone 0.5 Mg/0.5 Ml Inj IVP 06/21/23 17:15 0.5 mg ONCE ONE Administration Medical Decision Making MDM Narrative Medical decision making narrative: [age] white female on Eliquis 5 days status post TAVR procedure with bruising since the TAVR procedure. She continues on her Eliquis. She has a non fully healed wound in the right groin certainly this could that have dehisced and at this point I think she needs wound care as well as I think we can check a CT of her abdomen her ultrasound of her leg to make sure there is no clotting aneurysmal activity or fluid collections. If these are out reasonable I think simply wound care would be appropriate as well as some pain medication. Will give her [place] small dose now and T instructor and wound dressing care. Would do wet-to-dry dressing cover with paper tape bandage and follow up with primary care in the next couple of days. Addendum 1:46 p.m. the patient has a very low hemoglobin at 7. She has got obvious a lot of bleeding into her abdomen. She has got violaceous bruising in her lower abdomen. She also has a lower abdominal hematoma and retroperitoneal hematoma the retroperitoneal hematoma is 7.1 x 2.5 14 cm in the craniocaudal dimension there is also soft tissue in the right groin and anterior abdominal wall consistent with hematoma. At this point I will consult with [facility] regarding treatment planning post TAVR procedure with retroperitoneal hemorrhage and lower abdominal hematoma. They may need surgical consultation. Disposition pending their recommendations. Addendum 2:15 p.m. discussed case with Dr. Braxton MILLER at [facility] who recommended vascular consult and they wanted a CT with IV contrast of his abdomen and pelvis. He is also concerned about the dehiscence in her wound. Will get a CT with IV contrast, will started transfusion. May need transfer to [facility] per vascular and Cardiology recommendation and will get the patient on a waiting list. Also if she stays in our hospital recommended stopping Eliquis for now. Lab Data Labs: Lab Results 06/21/23 Range/Units 12:15 WBC 7.63 (4.50-11.00) K/uL RBC 2.36 L (4.00-5.20) m/uL Hgb 7.6 L* (12.0-16.0) gm/dL Hct 25.1 L (33.0-51.0) % MCV 106 H (80-100) fL MCH 32 (26-34) pg MCHC 30 L (32-36) gm/dL RDW Coeff of Nav[place] 16.0 H (11.5-15.5) % Plt Count 100 L (140-440) K/uL Neut % (Auto) 78.0 H (42.0-72.0) % Lymph % (Auto) 13.6 L (20-44) % [place] % (Auto) 6.4 (0.0-11.0) % Eos % (Auto) 0.9 (0.0-7.0) % Baso % (Auto) 0.4 (0.0-3.0) % Neut # (Auto) 6.00 (1.7-7.0) K/uL Lymph # (Auto) 1.00 (0.90-2.90) K/uL [place] # (Auto) 0.50 (0.00-0.90) K/UL Eos # (Auto) 0.07 (0.00-0.50) K/uL Baso # (Auto) 0.03 (0.00-0.30) K/uL Abs Immat Gran (auto) 0.05 (0.00-0.30) K/uL Imm/Tot Granulo (auto) 0.7 % Sodium 137 (135-149) mmol/L Potassium 3.4 L (3.6-5.1) mmol/L Chloride 105 (96-114) mmol/L Carbon Dioxide 26 (20-32) mmol/L Anion Gap 6 L (7-15) mEq/L BUN 39 H (7-30) mg/dL Creatinine 1.1 (0.5-1.5) mg/dL Estimated Creat Clear 35.99 Estimated GFR 52 ml/min Glucose 119 H (60-115) mg/dL Calcium 8.5 (8.4-10.6) mg/dL Blood Type A Positive Antibody Screen NEGATIVE Crossmatch ([facility]) See Detail Discharge Plan Discharge Clinical Impression: Retroperitoneal bleed Prescriptions: No Action cholecalciferol (vitamin D3) 50 mcg (2,000 unit) capsule 50 mcg PO DAILY multivitamin Tablet 1 tab PO QAM ascorbic acid (vitamin C) 500 mg tablet 1 g PO DAILY albuterol sulfate 2.5 mg /3 mL (0.083 %) solution for nebulization 2.5 mg inhalation Q6H PRN folic acid 1 mg tablet 3 mg PO DAILY Lactobacillus acidophilus 0.5 mg (100 million cell) tablet 1,000 mmu cells PO DAILY paroxetine HCl 20 mg tablet 20 mg PO DAILY prednisone 5 mg tablet 7.5 mg PO DAILY furosemide 20 mg tablet 40 mg PO DAILY Qty: 90 0RF rosuvastatin 5 mg tablet See Rx Instructions .ROUTE .COMPLEX Qty: 90 3RF Dose Instruction: TAKE 1 TABLET BY MOUTH DAILY Rx Instructions: TAKE 1 TABLET BY MOUTH DAILY mometasone-formoterol 100-5 mcg/actuation HFA aerosol inhaler 2 puff inhalation BID sodium chloride 3 % solution for nebulization 4 ml inhalation .COMPLEX Rx Instructions: use twice a day with albuterol nebs metoprolol succinate 25 mg tablet extended release 24 hr 25 mg PO BID Qty: 180 3RF valganciclovir 450 mg tablet See Rx Instructions .ROUTE .COMPLEX Qty: 90 3RF Dose Instruction: TAKE 1 TABLET BY MOUTH DAILY Rx Instructions: TAKE 1 TABLET BY MOUTH DAILY Eliquis 5 mg tablet 2.5 mg PO BID Qty: 90 3RF ferrous gluconate 324 mg (37.5 mg iron) tablet 324 mg PO DAILY Qty: 30 5RF hydrocodone-acetaminophen 5-325 mg tablet 1 tab PO Q6H PRN (Reason: pain) Qty: 56 0RF Follow Up/Referrals: Kyle Healy MD [Primary Care Provider] -
[2023-06-21 12:23] LABS: Basophils Absolute Auto 0.03 K/uL (0.00-0.30); Basophils Percent Auto 0.4 % (0.0-3.0); Eosinophils Absolute Auto 0.07 K/uL (0.00-0.50); Eosinophils Percent Auto 0.9 % (0.0-7.0); Hematocrit 25.1 % (33.0-51.0); Immature Granulocytes Abs Auto 0.05 K/uL (0.00-0.30); Immature Granulocytes Pct Auto 0.7 %; Lymphocytes Percent Auto 13.6 % (20-44); Mean Corpuscular HGB Conc 30 gm/dL (32-36); Mean Corpuscular Hemoglobin 32 pg (26-34); Mean Corpuscular Volume 106 fL (80-100); Monocytes Percent Auto 6.4 % (0.0-11.0); Platelet Count* 100 K/uL (140-440); Red Blood Count 2.36 m/uL (4.00-5.20); White Blood Count* 7.63 K/uL (4.50-11.00)
--- OUTSIDE RECORDS SUMMARY | 2023-06-21 12:23 | XMS_ITS | Continuity of Care Document ---
Author Name Unknown Organization Z [facility] Address [address] [place] [address] Phone Care Team Providers Care Bilingual Manager Name Role Phone Unavailable Unavailable Unavailable Advance Directives Directive Yes / No Effective Date File Name No Information Encounters Encounter Description Practice Location Reason(s) For Visit Diagnoses Date Provider Providers Copied on Encounter Z [facility], [address], [place], [address], [place] tel:[phone] [facility] No Information 0 [phone] 7 [...]
--- OUTSIDE RECORDS SUMMARY | 2023-06-21 12:23 | XMS_ITS | Continuity of Care Document ---
Author Name Unknown Organization [facility] Address [address] [facility] [address] [place] [address] Phone Care Team Providers Care Passenger Brakeman Name Role Phone Corona EASTMAN MD, Bailee [...] mL (20 mg/mL) intravenous solution as per cellars supervisor - No Longer Active Rasuvo (PF) 12.5 mg/0.25 mL subcutaneous auto-injector per rheumatology - No Longer Active prednisone 5 mg tablet take 1 tablet by oral route every day 5 MG - No Longer Active Procedures Procedure Date Unlisted Eval & Mgmt Serv Offic outpt EM [facility] Sever Advance Directives Directive Yes / No Effective Date File Name No Information Encounters Encounter Description Practice Location Reason(s) For Visit Diagnoses Date Provider Providers Copied on Encounter Unlisted Eval & Mgmt Serv [facility], [address], [place], [place], [id number], tel:[phone] [facility] Infusion. (chief complaint) Rheumatoid arthritis, unspecified Corona Morocho. [address] [place] [address],, [address], [place], [place], [id number], . tel:[phone] Referring Provider: Bailee Jeter MD, [address] [place] [address], [address], [place], [address]. tel:[phone] Offic outpt EM [facility], [address], [place], [place], [id number], tel:[phone] [facility] HTN. (chief complaint)e st care (chief complaint) Elevated blood pressure readingEdema Corona Morocho. [address] [place] [address],, [address], [place], [place], [address], [place]. tel:[phone] Referring Provider: Bailee Jeter MD, [address] [place] [address]., [address], [place], [address]. tel:[phone] Family History Family Member Type Diagnosis Age At Onset Mother Problem (finding) malignant neop lasm of breast in first degree relative Mother Problem (finding) stroke Father Problem (finding) prostate cancer Mother Problem (finding) hypertension Payers Payer name Insurance type Covered green party ID Miriam matute(s) Medicare MB [id number] Nelson [id number] Social History Type Description Quantity Date Captured [...] of HTN. Previous PCP retired. 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 Reports hx of RA, followed by cellars supervisor in [place]. Reports was seen in ER a few [...] arthritis, unspecifie d impression offered referral to rheumatjim merrill she will call back. Patient Care Teams Name Effective Dates (start - stop) Status Members No Information
--- OUTSIDE RECORDS SUMMARY | 2023-06-21 12:23 | XMS_ITS | Continuity of Care Document ---
Author Name Unknown Organization [facility] Address [address] [facility] [address] [place] [address] Phone Care Team Providers Care Turbo Electric Operator Name Role Phone Ritchie Mclaughlin MD Unavailable [...] by oral route 4 times every day [id number] UNITS - Active alendronate 70 mg tablet take 1 tablet by oral route every week in the morning, at least 30 min before first food, beverage, or medication of day 70 MG - Active atenolol 25 mg tablet take 1 tablet by ORAL route every day 25 MG - Active Sarasota 5 mg-325 mg tablet take 1 - [...] - Active Procedures Procedure Date OFFICE/OUTPATIENT VISIT, [facility] Advance Directives Directive Yes / No Effective Date File Name No Information Encounters Encounter Description Practice Location Reason(s) For Visit Diagnoses Date Provider Providers Copied on Encounter [facility], [address], [id number], tel:[phone] [facility] No Information 3 Lissette Dugan. [address] [facility] [address], [place], [place], [id number] . tel: [phone] OFFICE/OUTPA TIENT VISIT, [facility], [address] [facility] [address], [place], [place], [address], tel:[phone] [facility] Musculoskelet al Pain (chief complaint) Rheumatoid arthritis, unspecifiedFi bromyalgia 8 Yves Allen. [address] [facility], [address] [address], [place], [place], [id number] , [place]. tel: [phone] Referring Provider: Alejandro Marinelli MD, [address] [address], [place], [address] . tel:[phone] Family History Family Member Type Diagnosis Age At Onset Mother Problem (finding) Alive and well Father Problem (finding) prostate cancer (Cause Of ) Mother Problem (finding) malignant neop lasm of breast in first degree relative Payers Payer name Insurance type Covered libertarian ID Authoriza tion(s) Ne Medicare QBI MB [id number] [facility] Supplemental CI [id number] Social History Type Description Quantity Date Captured [...] 15 years ago. States she comes to [place] every 9 years and would like to establish care with our office today. Patient states she had established care with her Hand Sprayer back in [place] Dr. Henley and patient [...] medications for her pain. States she takes Saras[place] prescribed by her previous Hand Sprayer Dr. Henley and states this takes the edge off but phillips not get full relief.Patient states she has tried Indocin 60mg but had a GI bleed due to taking this. States from 4742-5343 she tried Humira and states she could not afford it due to being on Medicare. States she also tried Orencia , Rituxan and Acetemra infusions in the past and states this was ineffective. States she is currently taking Remicade infusions and states she has them every 2 months in [facility]. States the Remicade has been increased twice sine starting this due to it being ineffective. Pt is currently taking Alendronate 70mg, FA, Sarasota 5-325mg PRN, Prednisone 2mg QD, MTX 5mg [...]
--- OUTSIDE RECORDS SUMMARY | 2023-06-21 12:23 | XMS_ITS | Continuity of Care Document ---
Author Name Unknown Organization [facility] Address [address] [address] [place] [address] Phone Care Team Providers Care Property Investor Name Role Phone Tosha West Unavailable Unavailable [...] Compl [facility], [address] [address], [place], [place], [id number], [place] tel:[phone] [facility] No Information 9 Stephen Givens. [address], [id number], [place]. tel:[phone] Subsqt Hosp-da E&m Minr Compl [facility], [address] [address], [place], [place], [address], [place] tel:[phone] [facility] No Information 9 No Information Init Inpt Cons New/est Mod-hi [facility], [address] [address], [place], [place], [id number], tel:[phone] [facility] No Information 9 Christine Kraft. [address] [facility] [address], [place], [place], [id number], [place]. tel:[phone] Family History Family Member Type Diagnosis Age [...]
[2023-06-21 12:24] LABS: Hemoglobin* 7.6 gm/dL (12.0-16.0)
[2023-06-21 12:34] LABS: Slide Review Reflex No
[2023-06-21 12:39] LABS: Chloride* 105 mmol/L (96-114); Potassium* 3.4 mmol/L (3.6-5.1); Sodium* 137 mmol/L (135-149)
[2023-06-21 12:42] LABS: Anion Gap 6 mEq/L (7-15); Blood Urea Nitrogen* 39 mg/dL (7-30); Carbon Dioxide* 26 mmol/L (20-32); Creatinine* 1.1 mg/dL (0.5-1.5); Est. Creatinine Clearance* 35.99; Estimated Glomerular Filt Rate 52 ml/min; Glucose* 119 mg/dL (60-115)
[2023-06-21 12:43] LABS: Calcium* 8.5 mg/dL (8.4-10.6)
--- NOTE | 2023-06-21 14:04 | CRLHL7_ITS ---
For Patients: As a result of the Century Cures Act, medical imaging exams and procedure reports are released immediately into your electronic medical record. You may view this report before your referring provider. If you have questions, please contact your health care provider. INDICATION: Right retroperitoneal space and right groin hematoma. Status post recent TAVR. TECHNIQUE: Multiple axial images were obtained from the diaphragm to the symphysis initiation of 63 mL of Isovue-370 intravenously. Sagittal and coronal re-formatted images were obtained. COMPARISON: CT abdomen and pelvis without contrast done earlier same day. FINDINGS: There are minimal bilateral effusion with atelectasis, unchanged. There is an aortic valve replacement. The gallbladder is surgically absent. There is no focal liver lesion. There are multiple tiny low dense areas in the spleen which are not fully characterized on this study. There are multiple calcifications in the spleen consistent with previous granulomatous disease. The pancreas and adrenal glands are unremarkable. The left kidney is surgically absent. There is no mass or hydronephrosis in the right kidney. There is no evidence of a bowel obstruction there is a large amount of stool in the colon. There is a contrast blush in the right groin by the common femoral artery consistent with extravasation of contrast. The contrast blush measure approximate 1.3 x 1.0 cm. There is a hematoma within this region measuring at least 3.8 x 2.8 cm. With soft tissue extending inferiorly along the inguinal canal. There is also a retroperitoneal hematoma extending up from the right groin, unchanged in appearance from the previous CT scan without contrast. This measures approximate 7.1 cm in transverse dimension by 2.5 cm in AP dimension by a 14 cm in craniocaudad dimension. There is stranding of subcutaneous fat in the lower pelvis/groin. There degenerative in the spine. There is fusion at L4-5. There are calcified uterine fibroids. IMPRESSION: Active extravasation of contrast from the right common femoral artery in the right groin/anterior abdominal wall and extending into the right retroperitoneal space and into the inguinal canal. This likely secondary to patient`s recent TAVR placement. Minimal bilateral effusions with associated atelectasis. Please note that all CT scans at this facility use dose modulation, iterative reconstruction, and/or weight-based dosing when appropriate to reduce radiation dose to as low as reasonably achievable. Dictated by Alejandro Centeno MD @ 06/21/2023 3:55:35 PM (Electronically Signed)
[2023-06-21] MEDS: HYDROCODONE-ACETAMIN 5-325 MG 1 TAB PO (14:05)
--- NOTE | 2023-06-21 15:54 | ED.NURSE ---
informed consent went over with pt regarding blood transfusion.
--- NOTE | 2023-06-21 16:34 | ED.NURSE ---
Pt report given to nurse Abbot KENZIE VIDES.
[2023-06-21] MEDS: HYDROmorphone 0.5 mg/0.5 ml inj IVP (17:17)
--- NOTE | 2023-06-21 17:35 | ED.NURSE ---
Pt report given to EMS.
--- NOTE | 2023-06-24 13:10 | ED.GENADULT ---
HPI - General Adult General Chief complaint: Skin/Abscess/Foreign Body Stated complaint: heart procedure on wed, groin pain Time Seen by Provider: 06/21/23 11:59 Related Data Home Medications Medication Instructions Recorded Confirmed Lactobacillus acidophilus 0.5 mg 1,000 mmu cells PO DAILY 12/22/21 05/04/23 (100 million cell) tablet albuterol sulfate 2.5 mg/3 mL 2.5 mg inhalation Q6H PRN 12/22/21 05/04/23 (0.083 %) solution for nebulization folic acid 1 mg tablet 3 mg PO DAILY 12/22/21 05/04/23 ascorbic acid (vitamin C) 500 mg 1 g PO DAILY 01/16/22 05/04/23 tablet cholecalciferol (vitamin D3) 50 50 mcg PO DAILY 01/16/22 05/04/23 mcg (2,000 unit) capsule multivitamin 1 tab PO QAM 01/16/22 05/04/23 mometasone-formoterol HFA 100 2 puff inhalation BID 02/02/23 05/04/23 mcg-5 mcg/actuation aerosol inhaler sodium chloride 3 % for 4 ml inhalation .COMPLEX 02/02/23 05/04/23 nebulization paroxetine HCl 20 mg tablet 20 mg PO DAILY 04/26/23 05/04/23 prednisone 5 mg tablet 7.5 mg PO DAILY 04/26/23 05/04/23 Previous Rx's Medication Instructions Recorded rosuvastatin 5 mg tablet See Rx Instructions .Route 07/09/22 .COMPLEX #90 tabs metoprolol succinate 25 mg 25 mg PO BID #180 tabs 02/16/23 tablet,extended release 24 hr valganciclovir 450 mg tablet See Rx Instructions .Route 02/24/23 .COMPLEX #90 tabs apixaban 5 mg tablet (Eliquis) 2.5 mg (1/2 x 5 mg) PO BID #90 tabs 03/23/23 furosemide 20 mg tablet 40 mg (2 x 20 mg) PO DAILY #90 tabs 05/02/23 ferrous gluconate 324 mg (37.5 mg 324 mg PO DAILY #30 tabs 06/09/23 iron) tablet hydrocodone 5 mg-acetaminophen 325 1 tab PO Q6H PRN pain #56 tabs 06/09/23 mg tablet Allergies Allergy/AdvReac Type Severity Reaction Status Date / Time NSAIDS (Non-Steroidal Allergy Severe GI bleed Verified 06/21/23 15:22 Anti-Inflamma terbinafine Allergy Intermediate Headache Verified 06/21/23 15:22 levofloxacin AdvReac Severe tendon Verified 06/21/23 15:22 rupture PFSH [facility] Medical History Non-ST elevated myocardial infarction (non-STEMI) ?I21.4 - Non-ST elevation (NSTEMI) myocardial infarction (ICD-10) Altered mental status ?R41.82 - Altered mental status, unspecified (ICD-10) Essential hypertension ?I10 - Essential (primary) hypertension (ICD-10) 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 - Cytomegaloviral disease, unspecified (ICD-10) ?H30.90 - Unspecified chorioretinal inflammation, unspecified eye (ICD-10) Rheumatoid arthritis ?M06.9 - Rheumatoid arthritis, unspecified (ICD-10) Paroxysmal atrial fibrillation ?I48.0 - Paroxysmal atrial fibrillation (ICD-10) Sepsis ?A41.9 - Sepsis, unspecified organism (ICD-10) Hypoxic respiratory failure ?J96.91 - Respiratory failure, unspecified with hypoxia (ICD-10) Methotrexate adverse reaction ?T45.1X5A - Adverse effect of antineoplastic and immunosuppressive drugs, initial encounter (ICD-10) Fatty liver ?K76.0 - Fatty (change of) liver, not elsewhere classified (ICD-10) Pleural effusion ?J90 - Pleural effusion, not elsewhere classified (ICD-10) Chronic wound ?T14.8XXA - Other injury of unspecified body region, initial encounter (ICD-10) Immunosuppression ?D84.9 - Immunodeficiency, unspecified (ICD-10) Enrolled in chronic care management ?Z78.9 - Other specified health status (ICD-10) History of kidney stones ?Z87.442 - Personal history of urinary calculi (ICD-10) POLST (Physician Orders for Life-Sustaining Treatment) ?Z78.9 - Other specified health status (ICD-10) Mitral annular calcification ?I05.9 - Rheumatic mitral valve disease, unspecified (ICD-10) Abnormal LFTs (liver function tests) ?R79.89 - Other specified abnormal findings of blood chemistry (ICD-10) Surgical History S/P cataract extraction ?Z98.49 - Cataract extraction status, unspecified eye (ICD-10) S/P cholecystectomy ?Z90.49 - Acquired absence of other specified parts of digestive tract (ICD-10) History of left nephrectomy ?Z90.5 - Acquired absence of kidney (ICD-10) History of lumbar fusion (04/2010) ?Z98.1 - Arthrodesis status (ICD-10) History of lithotripsy ?Z98.890 - Other specified postprocedural states (ICD-10) Family History Mother Breast cancer, Onset Age: 70 Sister Breast cancer, Onset Age: 35 Social History What is your current living situation?: I presently have a place to live Problems where you live: no known problems Problems where you live details: na In the past 12 months, utilities in danger of being shut off: no In past 12 months, lack of transportation kept you from medical appts, meetings, work, or getting things needed for daily living: no Smoking Status: Never smoker Do you use any of these nicotine containing products: None Second hand tobacco smoke exposure: No How often do you have a drink containing alcohol: never How often do you have six or more drinks on one occasion: Never AUDIT-C Alcohol total score: 0 Non-prescribed substance use: denies use Caffeine: No How often does anyone, including family, friends and others, physically hurt you: never How often does anyone, including family, friends and others, insult or talk down to you: never How often does anyone, including family, friends and others, threaten you with harm: never How often does anyone, including family, friends and others, scream or curse at you: never Little interest or pleasure in doing things: more than half the days Feeling down, depressed, or hopeless: more than half the days service: No Course Vital Signs Vital signs: Initial Vital Signs Temperature 98.3 F 06/21/23 12:07 Temperature Source Temporal Artery Scan 06/21/23 12:07 Pulse Rate 73 06/21/23 12:07 Pulse Rhythm Regular 06/21/23 12:07 Respiratory Rate 18 06/21/23 12:07 Blood Pressure 134/56 L 06/21/23 12:07 Blood Pressure Mean 82 06/21/23 12:07 Blood Pressure Position Supine 06/21/23 12:07 Pulse Oximetry 100 06/21/23 12:07 Oxygen Delivery Method Room Air 06/21/23 12:07 Vital Signs Temperature 98.3 F 06/21/23 12:07 Pulse Rate 73 06/21/23 12:07 Respiratory Rate 18 06/21/23 12:07 Blood Pressure 134/56 L 06/21/23 12:07 Pulse Oximetry 100 06/21/23 12:07 Oxygen Delivery Method Room Air 06/21/23 12:07 Temperature 98 F 06/21/23 16:40 Pulse Rate 66 06/21/23 16:40 Respiratory Rate 17 06/21/23 16:40 Blood Pressure 128/52 L 06/21/23 16:40 Pulse Oximetry 98 06/21/23 16:21 Oxygen Delivery Method Room Air 06/21/23 14:18 Medications Administered Medications: Discontinued Medications Generic Name Dose Route Start Last Admin Trade Name Freq PRN Reason Stop Dose Admin Hydrocodone Bitart/Acetaminophen 1 tab 06/21/23 12:06 06/21/23 14:05 Hydrocodone-Acetamin 5-325 Mg 1 Tab PO 06/21/23 12:07 1 tab ONCE ONE Administration Hydromorphone HCl 0.5 mg 06/21/23 17:14 06/21/23 17:17 Hydromorphone 0.5 Mg/0.5 Ml Inj IVP 06/21/23 17:15 0.5 mg ONCE ONE Administration Medical Decision Making Lab Data Labs: Lab Results 06/21/23 Range/Units 12:15 WBC 7.63 (4.50-11.00) K/uL RBC 2.36 L (4.00-5.20) m/uL Hgb 7.6 L* (12.0-16.0) gm/dL Hct 25.1 L (33.0-51.0) % MCV 106 H (80-100) fL MCH 32 (26-34) pg MCHC 30 L (32-36) gm/dL RDW Coeff of Navneet 16.0 H (11.5-15.5) % Plt Count 100 L (140-440) K/uL Neut % (Auto) 78.0 H (42.0-72.0) % Lymph % (Auto) 13.6 L (20-44) % [place] % (Auto) 6.4 (0.0-11.0) % Eos % (Auto) 0.9 (0.0-7.0) % Baso % (Auto) 0.4 (0.0-3.0) % Neut # (Auto) 6.00 (1.7-7.0) K/uL Lymph # (Auto) 1.00 (0.90-2.90) K/uL Screven # (Auto) 0.50 (0.00-0.90) K/UL Eos # (Auto) 0.07 (0.00-0.50) K/uL Baso # (Auto) 0.03 (0.00-0.30) K/uL Abs Immat Gran (auto) 0.05 (0.00-0.30) K/uL Imm/Tot Granulo (auto) 0.7 % Sodium 137 (135-149) mmol/L Potassium 3.4 L (3.6-5.1) mmol/L Chloride 105 (96-114) mmol/L Carbon Dioxide 26 (20-32) mmol/L Anion Gap 6 L (7-15) mEq/L BUN 39 H (7-30) mg/dL Creatinine 1.1 (0.5-1.5) mg/dL Estimated Creat Clear 35.99 Estimated GFR 52 ml/min Glucose 119 H (60-115) mg/dL Calcium 8.5 (8.4-10.6) mg/dL Blood Type A Positive Antibody Screen NEGATIVE Crossmatch (G) See Detail Critical Care Time Critical Care Time Total Critical Care Time in Minutes: 85 Discharge Plan Discharge Clinical Impression: Retroperitoneal bleed Prescriptions: No Action cholecalciferol (vitamin D3) 50 mcg (2,000 unit) capsule 50 mcg PO DAILY multivitamin Tablet 1 tab PO QAM ascorbic acid (vitamin C) 500 mg tablet 1 g PO DAILY albuterol sulfate 2.5 mg /3 mL (0.083 %) solution for nebulization 2.5 mg inhalation Q6H PRN folic acid 1 mg tablet 3 mg PO DAILY Lactobacillus acidophilus 0.5 mg (100 million cell) tablet 1,000 mmu cells PO DAILY paroxetine HCl 20 mg tablet 20 mg PO DAILY prednisone 5 mg tablet 7.5 mg PO DAILY furosemide 20 mg tablet 40 mg PO DAILY Qty: 90 0RF rosuvastatin 5 mg tablet See Rx Instructions .ROUTE .COMPLEX Qty: 90 3RF Dose Instruction: TAKE 1 TABLET BY MOUTH DAILY Rx Instructions: TAKE 1 TABLET BY MOUTH DAILY mometasone-formoterol 100-5 mcg/actuation HFA aerosol inhaler 2 puff inhalation BID sodium chloride 3 % solution for nebulization 4 ml inhalation .COMPLEX Rx Instructions: use twice a day with albuterol nebs metoprolol succinate 25 mg tablet extended release 24 hr 25 mg PO BID Qty: 180 3RF valganciclovir 450 mg tablet See Rx Instructions .ROUTE .COMPLEX Qty: 90 3RF Dose Instruction: TAKE 1 TABLET BY MOUTH DAILY Rx Instructions: TAKE 1 TABLET BY MOUTH DAILY Eliquis 5 mg tablet 2.5 mg PO BID Qty: 90 3RF ferrous gluconate 324 mg (37.5 mg iron) tablet 324 mg PO DAILY Qty: 30 5RF hydrocodone-acetaminophen 5-325 mg tablet 1 tab PO Q6H PRN (Reason: pain) Qty: 56 0RF Follow Up/Referrals: Kyle Healy MD [Primary Care Provider] -
== END 2023-06-21 17:30 | disposition home or self-care (01) ==
PROVIDERS: Family Medicine; Emergency Provider Internal Medicine; PCP Family Medicine
DX: K68.3 Retroperitoneal hematoma (principal); M79.651 Pain in right thigh
CPT/HCPCS: 36415; 36430; 74176; 74177; 80048; 85025; 86850; 86900; 86901; 86922; 93971; 94761; 96374; 99284; 99285; A9270; J1170; P9016; Q9967

== ENCOUNTER 2023-06-21 17:32 | Outpatient (CLI) | payer MEDICARE, OTHER, SELFPAY ==
--- OUTSIDE RECORDS SUMMARY | 2023-06-23 10:15 | XMS_ITS | Continuity of Care Document ---
Author Name Unknown Organization [facility] Address [address] [facility] [address] [place] [address] Phone Care Team Providers Care Shipping Room Helper Name Role Phone Ritchie Mclaughlin MD Unavailable [...] before a meal 20 MG - Active K[place] 5 mg-325 mg tablet take 1 - [...] by oral route 4 times every day 192614 UNITS - Active duloxetine 30 mg capsule,delayed release 1 cap PO qd for 2 weeks then may increase to 2 caps PO qd - Active Procedures Procedure Date OFFICE/OUTPATIENT VISIT, [facility] Advance Directives Directive Yes / No Effective Date File Name No Information Encounters Encounter Description Practice Location Reason(s) For Visit Diagnoses Date Provider Providers Copied on Encounter [facility], [address] [address], [place], [place], [id number], tel:[phone] [facility] No Information 3 Lissette Dugan. [address] [facility] [address], [place], [place], [id number] . tel: [phone] OFFICE/OUTPA TIENT VISIT, [facility], [address] [address], [place], [place], [id number], tel:[phone] [facility] Musculoskelet al Pain (chief complaint) Rheumatoid arthritis, unspecifiedFi bromyalgia 8 Yves Allen. [address] [facility] [address], [place], [place], [address] , [place]. tel: [phone] Referring Provider: Alejandro Marinelli MD, [address] [address], [place], [address] . tel:[phone] Family History Family Member Type Diagnosis Age At Onset Mother Problem (finding) Alive and well Father Problem (finding) prostate cancer (Cause Of ) Mother Problem (finding) malignant neop lasm of breast in first degree relative Payers Payer name Insurance type Covered green party ID Authoriza tion(s) [place] QBI MB [id number] [place] [facility] [place] Supplemental CI [id number] Social History Type Description Quantity Date Captured [...] 15 years ago. States she comes to [place] every 9 years and would like to establish care with our office today. Patient states she had established care with her Ranch Hand back in [place] Dr. Henley and patient [...] medications for her pain. States she takes [place] prescribed by her previous Ranch Hand Dr. Henley and states this takes the edge off but phillips not get full relief.Patient states she has tried Indocin 60mg but had a GI bleed due to taking this. States from 3644-3112 she tried Humira and states she could not afford it due to being on Medicare. States she also tried Orencia , Rituxan and Acetemra infusions in the past and states this was ineffective. States she is currently taking Remicade infusions and states she has them every 2 months in [facility]. States the Remicade has been increased twice sine starting this due to it being ineffective. Pt is currently taking Alendronate 70mg, FA, [place] 5-325mg PRN, Prednisone 2mg QD, MTX 5mg [...]
--- OUTSIDE RECORDS SUMMARY | 2023-06-23 10:15 | XMS_ITS | Continuity of Care Document ---
Author Name Unknown Organization [facility] Address [address] [place] [address] Phone Care Team Providers Care Follow Up Specialist Name Role Phone Unavailable Unavailable Unavailable Advance Directives Directive Yes / No Effective Date File Name No Information Encounters Encounter Description Practice Location Reason(s) For Visit Diagnoses Date Provider Providers Copied on Encounter [facility], [address], [place], [address], [place] tel:[phone] [facility] No Information [phone] No [...]
--- OUTSIDE RECORDS SUMMARY | 2023-06-23 10:15 | XMS_ITS | Continuity of Care Document ---
Author Name Unknown Organization [facility] Address [address] [facility] [address] [place] [address] Phone Care Team Providers Care Cable Wirer Name Role Phone Corona EASTMAN MD, Bailee [...] mL (20 mg/mL) intravenous solution as per studio technician - No Longer Active Rasuvo (PF) 12.5 mg/0.25 mL subcutaneous auto-injector per rheumatology - No Longer Active prednisone 5 mg tablet take 1 tablet by oral route every day 5 MG - No Longer Active Procedures Procedure Date Unlisted Eval & Mgmt Serv Offic outpt EM [facility] Advance Directives Directive Yes / No Effective Date File Name No Information Encounters Encounter Description Practice Location Reason(s) For Visit Diagnoses Date Provider Providers Copied on Encounter Unlisted Eval & Mgmt Serv [facility], [address], [place], [place], [id number], tel:[phone] [facility] Infusion. (chief complaint) Rheumatoid arthritis, unspecified Corona Morocho. [address] [place] [address],, [address], [place], [place], [address], . tel:[phone] Referring Provider: Bailee Jeter MD, [address] [place] [address], [address], [place], [address]. tel:[phone] Offic outpt EM [facility], [address], [place], [place], [address], tel:[phone] [facility] HTN. (chief complaint)e st care (chief complaint) Elevated blood pressure readingEdema Corona Morocho. [address] [place] [address],, [address], [place], [place], [address], [place]. tel:[phone] Referring Provider: Bailee Jeter MD, [address] [place] [address]., [address], [place], [address]. tel:[phone] Family History Family Member Type Diagnosis Age At Onset Mother Problem (finding) malignant neop lasm of breast in first degree relative Mother Problem (finding) stroke Father Problem (finding) prostate cancer Mother Problem (finding) hypertension Payers Payer name Insurance type Covered democrat ID Miriam matute(s) Medicare MB [id number] Nelson [id number] Social History Type Description Quantity Date Captured [...] of HTN. Previous PCP retired. 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 Reports hx of RA, followed by studio technician in [place]. Reports was seen in ER a few [...]
== END 2023-06-21 17:33 | disposition home or self-care (01) ==
LOC: AMB 06-23 10:13
PROVIDERS: PCP Family Medicine; Visit Provider Family Medicine
DX: K62.5 Hemorrhage of anus and rectum (principal)
CPT/HCPCS: A0425; A0434

== ENCOUNTER 2023-07-02 13:39 | Outpatient (CLI) | payer MEDICARE, OTHER, SELFPAY ==
--- OUTSIDE RECORDS SUMMARY | 2023-07-02 13:41 | XMS_ITS | Continuity of Care Document ---
Author Name Unknown Organization [facility] Address [address] [place] [address] Phone Care Team Providers Care Shoe Sewing Machine Operator And Tender Name Role Phone Ritchie Mclaughlin MD Unavailable [...] before a meal 20 MG - Active [place] 5 mg-325 mg tablet take 1 - [...] by oral route 4 times every day [id number] UNITS - Active duloxetine 30 mg capsule,delayed release 1 cap PO qd for 2 weeks then may increase to 2 caps PO qd - Active Procedures Procedure Date OFFICE/OUTPATIENT VISIT, [facility] Advance Directives Directive Yes / No Effective Date File Name No Information Encounters Encounter Description Practice Location Reason(s) For Visit Diagnoses Date Provider Providers Copied on Encounter [facility], [address] [address], [place], [place], [id number], tel:[phone] [facility] No Information 3 Lissette Dugan. [address] [address], [place], [place], [id number] . tel: [phone] OFFICE/OUTPA TIENT VISIT, [facility], [address] [address], [place], [place], [id number], tel:[phone] [facility] Musculoskelet al Pain (chief complaint) Rheumatoid arthritis, unspecifiedFi bromyalgia 8 Yves Allen. [address] [address], [place], [place], [id number] , [place]. tel: [phone] Referring Provider: Alejandro Marinelli MD, [address] [address], [place], [address] . tel:[phone] Family History Family Member Type Diagnosis Age At Onset Mother Problem (finding) Alive and well Father Problem (finding) prostate cancer (Cause Of ) Mother Problem (finding) malignant neop lasm of breast in first degree relative Payers Payer name Insurance type Covered libertarian ID Authoriza tion(s) [place] Q[place] MB [id number] [place] Supplemental CI [id number] Social History Type Description Quantity Date Captured [...] states she had established care with her Coding Machine Operator back in [place] Dr. Henley and patient has brought some [...] medications for her pain. States she takes Albert[place] prescribed by her previous Coding Machine Operator Dr. Henley and states this takes the edge off but phillips not get full relief.Patient states she has tried Indocin 60mg but had a GI bleed due to taking this. States from [id number] she tried Humira and states she could not afford it due to being on Medicare. States she also tried Orencia , Rituxan and Acetemra infusions in the past and states this was ineffective. States she is currently taking Remicade infusions and states she has them every 2 months in [facility]. States the Remicade has been increased twice sine starting this due to it being ineffective. Pt is currently taking Alendronate 70mg, FA, [place] 5-325mg PRN, Prednisone 2mg QD, MTX 5mg QWKPrior Rheumatology in [place] Dr. Swapnil Henley. Patient has records with [...]
--- OUTSIDE RECORDS SUMMARY | 2023-07-02 13:41 | XMS_ITS | Continuity of Care Document ---
Author Name Unknown Organization [facility] Address [address] [place] [address] Phone Care Team Providers Care Balance Recesser Name Role Phone Unavailable Unavailable Unavailable Advance Directives Directive Yes / No Effective Date File Name No Information Encounters Encounter Description Practice Location Reason(s) For Visit Diagnoses Date Provider Providers Copied on Encounter Z [facility], [address], [place], [address], [place] tel:[phone] [facility] No Information 0 [phone] No Information Family History Family Member Type Diagnosis Age At Onset No Information Payers Payer name Insurance type Covered democrat ID Authoriza tion(s) No Information Social History [...]
--- OUTSIDE RECORDS SUMMARY | 2023-07-02 13:42 | XMS_ITS | Continuity of Care Document ---
Author Name Unknown Organization [facility] Address [address] [place] [address] Phone Care Team Providers Care Fur Buyer Name Role Phone Corona EASTMAN MD, Bailee [...] mL (20 mg/mL) intravenous solution as per machine feed operator - No Longer Active Rasuvo (PF) 12.5 mg/0.25 mL subcutaneous auto-injector per rheumatology - No Longer Active prednisone 5 mg tablet take 1 tablet by oral route every day 5 MG - No Longer Active Procedures Procedure Date Unlisted Eval & Mgmt Serv Offic outpt EM [facility] Advance Directives Directive Yes / No Effective Date File Name No Information Encounters Encounter Description Practice Location Reason(s) For Visit Diagnoses Date Provider Providers Copied on Encounter Unlisted Eval & Mgmt Serv [facility], [address], [place], [place], [id number], tel:[phone] [facility] Infusion. (chief complaint) Rheumatoid arthritis, unspecified Corona Morocho. [address] [place] [address],, [address], [place], [place], [id number], . tel:[phone] Referring Provider: Bailee Jeter MD, [address] [place] [address], [address], [place], [address]. tel:[phone] Offic outpt EM [facility], [address], [place], [place], [id number], tel:[phone] [facility] HTN. (chief complaint)e st care (chief complaint) Elevated blood pressure readingEdema Corona Morocho. [address] [place] [address],, [address], [place], [place], [id number], [place]. tel:[phone] Referring Provider: Bailee Jeter MD, [address] [place] [address]., [address], [place], [address]. tel:[phone] Family History Family Member Type Diagnosis Age At Onset Mother Problem (finding) malignant neop lasm of breast in first degree relative Mother Problem (finding) stroke Father Problem (finding) prostate cancer Mother Problem (finding) hypertension Payers Payer name Insurance type Covered republican ID Miriam matute(s) Medicare MB [id number] Nelson [id number] Social History Type Description Quantity Date Captured [...] of HTN. Previous PCP retired. 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 Reports hx of RA, followed by machine feed operator in [place]. Reports was seen in ER a few [...]
== END 2023-07-02 13:40 | disposition home or self-care (01) ==
LOC: WOUND 13:39
PROVIDERS: PCP Family Medicine; Visit Provider Nurse Practitioner Family
DX: L89.894 Pressure ulcer of other site, stage 4 (principal)
CPT/HCPCS: 11042

== ENCOUNTER 2023-07-16 14:46 | Outpatient (CLI) | payer MEDICARE, OTHER, SELFPAY ==
--- OUTSIDE RECORDS SUMMARY | 2023-07-16 14:49 | XMS_ITS | Clinical Summary ---
Author Name Unknown Organization [facility] Address [address] [place] [address] Care Team Providers Care Packing Floor Worker Name Role Phone Elsewhere, Pcp Primary Care Provider Unavailabl e Source Comments Patient records contain information from all sites at [facility]. For routine questions regarding patient records, call [phone] during business hours, M-F 8:00 AM - 5:00 PM Central Time. Record requests for emergency care only can be directed to [phone] at any time.[facility] Allergies Active Allergy Reactions Criticality Noted Date Comments Levofloxacin Other (see comments) 07/09/2021 Severe tendon issues Nsaids (Non-Steroidal Anti-Inflammatory Drug) GI bleeding 01/22/2017 Terbinafine Hcl Other (see comments),Headache 04/29/2020 Headaches, fever Medications Medication Sig Dispensed Refills Start Date End Date Status rosuvastatin (CRESTOR) 5 mg tablet Take 5 mg by mouth at bedtime. 0 05/07/2020 Active HYDROcodone-acet aminophen (NORCO) 5-325 mg per tablet Take 1 tablet by mouth every 6 (six) hours as needed for pain. 0 12/31/2016 Active folic acid 1 mg tablet Take 3 mg by mouth as directed. Daily EXCEPT Mondays. 0 04/29/2020 Active cholecalciferol (VITAMIN D3) 50 mcg (2,000 Unit) tablet Take 2,000 Units by mouth daily. 0 01/31/2015 Active multivitamin-Ca- iron-minerals tablet Take 1 tablet by mouth daily. 0 11/04/2015 Active prednisoLONE acetate, PF, 1 % drops,suspension Administer 2 drops into the left eye at bedtime. Started in September. Label was not on bottle; unsure number of drops. To left eye at bedtime. 0 Active valGANciclovir (VALCYTE) 450 mg tablet Take 450 mg by mouth daily. Started in September for eye infection; is to remain on indefinitely. 0 Active ferrous gluconate 324 mg (37.5 mg iron) tablet Take 37.5 mg of iron by mouth daily. 0 Active ascorbic acid, vitamin C, (VITAMIN C) 250 mg tablet Take 250 mg by mouth daily. With her iron tablet 0 Active furosemide (LASIX) 40 mg tablet Take 40 mg by mouth daily. Just started 12/27/21; dose was being adjusted. 0 Active potassium chloride (KLORCON/K-TAB) 10 mEq ER tablet Take 40 mEq by mouth daily with breakfast. Do not crush or chew. 0 Active albuterol 2.5 mg /3 mL nebulizer solutionIndicati ons:Bronchiectas is (FORMERLY [facility]) USE 1 VIAL VIA NEBULIZER TWICE DAILY. USE PRIOR TO SALINE NEBULIZER SOLUTION FOR BRONCHIAL HYGIENE(MUCUS CLEARANCE) 180 mL 11 01/30/2022 Active sodium chloride (HYPERSAL) 7 % nebulizer solutionIndicati ons:Bronchiectas is (FORMERLY [facility]) USE 1 VIAL VIA NEBULIZER TWICE DAILY. USE ALBUTEROL BEFORE THIS TREATMENT. USE AEROBIKA FLUTTER VALVE AFTER THIS TREATMENT 240 mL 11 01/30/2022 Active apixaban (ELIQUIS) 2.5 mg tablet TAKE 1 TABLET BY MOUTH TWO TIMES A DAY 30 tablet 0 01/08/2022 Active atenoloL (TENORMIN) 25 mg tablet Take 25 mg by mouth daily. 0 11/27/2010 2 Discontinued Active Problems Problem Noted Date Diagnosed Date Hemothorax 01/05/2022 Pancytopenia 01/05/2022 Immunodeficiency Due To Drugs 01/05/2022 Toxicity Immunosuppressive Therapy Subsequent Retinitis Cytomegalovirus 01/05/2022 Effusion Pleural 12/28/2021 Anemia 12/25/2020 Anemia Posthemorrhagic Acute (Blood Loss Anemia) 12/25/2020 Hypertension Essential Primary 12/24/2020 Obesity Body Mass Index 30-39.9 Adult 12/24/2020 Arthritis Rheumatoid 12/24/2020 Chronic Kidney Disease 12/24/2020 Fracture Lumbar Second Closed Initial 12/24/2020 Overview: L2 TP fracture Fracture Tibia Closed Initial Left 12/24/2020 Tear Wrist Ligament Initial Left 12/24/2020 Overview: Concern for partial thickness scapholunate ligament tear Laceration Forehead Initial 12/24/2020 History Of Falling 12/23/2020 Resolved Problems Problem Noted Date Diagnosed Date Resolved Date Failure Renal Acute (Acute Kidney Injury) 12/25/2020 12/25/2020 Encounters Date Type Department Care Team Description 07/06/2023 Clinical Communication Department of Family Medicine in [place] [address] [place] [address] Louie Malagon M.D. Cardiac Rehab from Last 3 Months Immunizations Name Administration Dates Next Due Tdap 12/23/2020 Social History Tobacco Use Types Packs/Day Years Used Date Smoking Tobacco: Never Alcohol Use Standard Drinks/Week Comments Not Currently 0 (1 standard drink = 0.6 oz pur e alcohol) Humiliation, Afraid, Rape, and Kick questionnair e Answer Date Recorded Within the last year, have y ou been afraid of your partner or ex-partner? No 08/12/2022 Within the last year, have y ou been humiliated or emotionally abused in other ways by your partner or ex-partner? No Within the last year, have y ou been kicked, hit, slapped, or otherwise physically hurt by your partner or ex-partner? No 08/12/2022 Within the last year, have y ou been raped or forced to have any kind of sexual activity by your partner or ex-partner? No 08/12/2022 Social Connection and Isolat ion Panel [NHANES] Answer Date Recorded In a typical week, how many times do you talk on the phone with family, friends, or neighbors? More than three times a week 08/12/2022 How often do you get togethe r with friends or relatives? Twice a week 08/12/2022 How often do you attend chur or sikhism services? Never 08/12/2022 Do you belong to any clubs o r organizations such as jainism groups, unions, fraternal or athletic groups, or school groups? No 08/12/2022 How often do you attend meet ings of the clubs or organizations you belong to? Never 08/12/2022 Are you , , di vorced, , never , or living with a partner? 08/12/2022 AUDIT-C Answer Date Recorded Q1: How often do you have a drink containing alc ohol? Never 08/12/2022 Average Number of Drinks Not on file 023 Frequency of Binge Drinking Not on file 07/29 Overall Financial Resource Strain (CARDIA) Answe r Date Recorded How hard is it for you to pa y for the very basics like food, housing, medical care, and heating? Not hard at all 08/12/2022 [facility] of Occupat ional Health - Occupational Stress Questionnaire Answer Date Recorded Do you feel stress - tense, restless, nervous, or anxious, or unable to sleep at night because your mind is troubled all the time - these days? Only a little 08/12/2022 Exercise Vital Sign Answer Date Recorde d On average, how many days pe r week do you engage in moderate to strenuous exercise (like a brisk walk)? 1 day 08/12/2022 On average, how many minutes do you engage in exercise at this level? 10 min 08/12/2022 Hunger Vital Sign Answer Date Recorded Within the past 12 months, y ou worried that your food would run out before you got the money to buy more. Never true 08/12/19 23 Within the past 12 months, t he food you bought just didn't last and you didn't have money to get more. Never true 08/12/2022 PRAPARE - Transportation Answer Date Re corded In the past 12 months, has l ack of transportation kept you from medical appointments or from getting medications? No 07/29 In the past 12 months, has l ack of transportation kept you from meetings, work, or from getting things needed for daily living? No 08/12/2022 Housing Stability Vital Sign Answer Dez e Recorded In the last 12 months, was t here a time when you were not able to pay the mortgage or rent on time? No 08/12/2022 In the last 12 months, how many places have you lived? 1 08/12/2022 In the last 12 months, was t here a time when you did not have a steady place to sleep or slept in a penitentiary (including now)? No 08/12/2022 Nutrition Answer Date Recorded Nutrition: EVOO Fat Source No 08/12 On average, how many serving s of fruits and vegetables do you eat per day (serving size is equal to 1 cup or approximately the size of a tennis ball)? 2-3 08/12/2022 Dental Answer Date Recorded Dental: Regular Dentist Yes 08/12/19 Employment Answer Date Recorded Employment status Retired 08/12/2022 Education Answer Date Recorded What is the highest level of school you have completed or the highest degree you have received? 12th grade 08/12/2022 Sex and Gender Information Value Date Recorded Sex Assigned at Not on file Gender Identity Female 12/26/2020 10:22 AM CDT Sexual Orientation Not on file Last Filed Vital Signs Vital Sign Reading Time Taken Comments Blood Pressure 136/67 01/09/2022 8:24 AM CDT Pulse 90 01/09/2022 8:24 AM CDT Temperature 36.1 ??C (97 ??F) 08/17/2022 10:57 AM CLINICAL DIETITIAN Respiratory Rate 18 01/09/2022 8:24 AM CDT Oxygen Saturation 98% 01/09/2022 8:24 AM CDT Inhaled Oxygen Concentration - - Weight 74.1 kg (163 lb 5.8 oz) 01/06/2022 11:26 AM CDT Height 160 cm (5' 2.99) 01/06/2022 11:26 AM CDT Body Mass Index 28.95 01/06/2022 11:26 AM CDT Plan of Treatment Health Maintenance Due Date Last Done Comments Office Visit for Blood Pressure Check / Re-check 1945 Zoster Vaccines (1 of 2) 1966 COVID-19 Vaccine ( season) 2023 03/24/2022, 05/02/2021, 09/10/2020, Additional history exists Depression Screening (Annual PHQ-2) 06/28/2023 Fall Risk Screen (Annual) 06/28/2023 Creatinine Level (Kidney Function Test) 06/28/2024 06/28/2023, 06/27/2023, 06/25/2023, Additional history exists Potassium Level 06/28/2024 06/28/2023, 05/30, 06/25/2023, Additional history exists Sodium Level 06/28/2024 06/28/2023, 05/29, 06/22/2023, Additional history exists DTaP,Tdap,and Td Vaccines (4 - Td or Tdap) 12/23/2030 12/23/2020, 05/28/2012, 06/28/2011, Additional history exists Pneumococcal vaccine (65+ years) Completed 03/28/2016, 03/09/2016, 03/28/2015, Additional history exists Mammogram Discontinued 02/08/2019, 02/02/2018 Influenza Vaccine Completed 04/15/2023, , 04/23/2021, Additional history exists HPV Vaccines Aged Out No longer eligi ble based on patient's age to complete this topic Advance Directives For more information, please contact: [phone] Latest Code Status on File Code Status Date Activated Date Inactivated Comments DNR/DNI 12/28/2021 12:42 PM 01/09/2022 1:10 PM Code Status History Code Status Date Activated Date Inactivated Comments DNR/DNI 12/23/2020 8:47 PM 12/25/2020 5:38 PM Full Code 12/23/2020 8:20 PM 12/23/2020 8:47 PM Question Answer Comments Full Code: Discussed Care Teams Packing Floor Worker Relationship Specialty Start Date End Date Elsewhere, Pcp PCP - General 12/24/20
--- OUTSIDE RECORDS SUMMARY | 2023-07-16 14:49 | XMS_ITS ---
Author Name Unknown Organization [facility] Address [address] [place] [address] Care Team Providers Care Can Feeder Name Role Phone Unavailable Unavailable Unavailable Surgery Details Not on file Complications Check Surgery Details section. Procedure Estimated Blood Loss Check Surgery Details section. Procedure Findings Check Surgery Details section. Procedure Specimens Taken Check Surgery Details section.
--- OUTSIDE RECORDS SUMMARY | 2023-07-16 14:49 | XMS_ITS | Data Portability ---
Author Name Unknown Address [address] [place] [address] Phone [phone] Organization [facility] Address [address] [place] [address] Assessment No assessment recorded. Plan of Treatment Reminders Order Date Submit Date Provider Last Modified By Organization Details Last Modified Time Details Appointments None recorded. Lab None recorded. Referral None recorded. Procedures None recorded. Surgeries nephrectomy , hand assisted laparoscopi c (SURG) 2020 021 tebbert Not available 09:31:04 Imaging None recorded. Medication Orders None recorded. Patient TargetsNo targets recorded. Patient InstructionsNo instructions recorded. Reason for Referral None Reported. Results Created Date Observation Date Name Description Value Unit Range Abnormal Flag LastModifiedBy Organization Detail LastModifiedTime Result Notes None recorded. 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 Lamont Bravo MD [address] [place] [address], [phone], [facility] 2 16:32:18 Recurrent urinary tract infection Active 022 Managed with daily Bactrim Lamont Bravo MD [address] [place] [address], [phone], [facility] 16:32:42 Problem Notes None recorded. Procedures Surgical History Date Name Laterality Status Provider Name and Address Organization Details Recorded Time 07/11/19 22 NEPHRECTOMY, HAND ASSISTED LAPAROSCOPIC (SURG) completed Mary omss [facility] 07/17/2021 09:46:04 Imaging Results None recorded. Procedure Notes None recorded. Medical Equipment None Reported. Allergies Allergen ID Allergen Name Allergen Category Reaction Reaction Severity Criticality Documentation Date Start Date Code Code System Note Provider Name and Address Organization Details Recorded Time 896273 Non-stero idal anti-infl ammatory agent (product) medicatio n Not available Not available Not available 03/20/2021 25593 005 SNOMED Lamont Bravo MD [address] [place] [address],[address] [place] [address], [phone], [facility] 1 16:22:56 [id number] Levaquin medicatio n Not available Not available Not available 03/20/2021 25359 2 Bree Bravo MD [address] [place] [address],[address] [place] [address], [phone], [facility] 1 16:23:24 [id number] levofloxa giorgio medicatio n other Not available Not available 08/11/20212021 58806 Bree Bravo MD [address] [place] [address],[address], [place], [phone], [facility] 2 16:06:24 [id number] terbinafi ne hydrochlo ride medicatio n fever headache Not available Not available Not available 08/11/20212019 13492 8 Bree Bravo MD [address] [place] [address],[address] [place] [address], [phone], [facility] 2 16:06:24 Medications Name Sig Start Date Stop Date Status Note LastModified by Organization Details LastModified Time compair xlt compre cmpressr FOR HOME USE active Not Available Not Available No t Available magic mouthwash SWISH AND SPIT 5 ML BY MOUTH FOUR TIMES DAILY NEEDED active Not Available Not Available No t Available compound drug active Not Available Not Available Not Available doxycycline hyclate 100 mg capsule TAKE 1 CAPSULE BY MOUTH TWICE DAILY FOR 10 DAYS 08/11 completed Not Available Not Available Not Available albuterol sulfate 2.5 mg/3 mL (0.083 %) solution for nebulizatio n active Not Available Not Available Not Available azithromyci n 250 mg tablet 08/11 completed Not Available Not Available Not Available fluconazole 150 mg tablet TAKE 1 TABLET BY MOUTH EVERY 3 DAYS 08/11 completed Not Available Not Available Not Available hydrocodone 5 mg-acetamin ophen 325 mg tablet TAKE 1 TABLET BY MOUTH EVERY 6 HOURS NEEDED 2021 active Not Available Not Available Not Avai lable prednisone 5 mg tablet TAKE 1 TABLET BY MOUTH THREE TIMES DAILY active Not Available Not Available No t Available atenolol 25 mg tablet TAKE 1 TABLET BY MOUTH DAILY active Not Available Not Available No t Available sulfamethox azole 800 mg-trimetho prim 160 mg tablet TAKE 1 TABLET BY MOUTH DAILY active Not Available Not Available No t Available terbinafine HCl 250 mg tablet TK 1 T PO D 08/11 completed Not Available Not Available Not Available methotrexat e sodium 2.5 mg tablet TAKE 6 TABLETS BY MOUTH EVERY 7 DAYS active Not Available Not Available No t Available prednisone 1 mg tablet TAKE 2 TABLETS BY MOUTH DAILY 08/11 completed Not Available Not Available Not Available cephalexin 500 mg capsule TAKE 1 CAPSULE BY MOUTH THREE TIMES DAILY 08/11 completed Not Available Not Available Not Available brimonidine 0.2 % eye drops 08/11 completed Not Available Not Available Not Available folic acid 1 mg tablet TAKE 3 TABLETS BY MOUTH DAILY active Not Available Not Available No t Available furosemide 20 mg tablet TAKE 1 TABLET BY MOUTH DAILY active Not Available Not Available No t Available cefuroxime axetil 500 mg tablet TAKE 1 TABLET BY MOUTH TWICE DAILY 08/11 completed Not Available Not Available Not Available itraconazol e 100 mg capsule TAKE 2 CAPSULES BY MOUTH EVERY MORNING AND 2 EVERY EVENING FOR FIRST 7 DAYS OF EACH MONTH active Not Available Not Available No t Available oxycodone 5 mg tablet 08/11 completed Not Available Not Available Not Available enoxaparin 80 mg/0.8 mL subcutaneou s syringe INJECT 1 SYRINGE TWICE DAILY . START 3 CALENDAR DAYS BEFORE YOUR SURGERY 08/11 completed Not Available Not Available Not Available rosuvastati n 5 mg tablet TAKE 1 TABLET BY MOUTH DAILY active Not Available Not Available No t Available sodium chloride 7 % for nebulizatio n USE 1 VIAL VIA NEBULIZER TWICE DAILY. USE ALBUTEROL BEFORE THIS TREATMENT . USE AEROBIKA FLUTTER VALVE AFTER THIS TREATMENT active Not Available Not Available No t Available Eliquis 5 mg tablet TAKE 1 TABLET BY MOUTH TWICE DAILY active Not Available Not Available No t Available Vitals Date Recorded Body height Body mass index (BMI) Body weight Provider Name and Address Organization Details Last Updated DateTime 03/20/2021 160.02 cm 33.7 kg/m2 54834.55 g Lamont Bravo MD [address] [place] [address],[address], [phone] [place] [address] Urology 03/20/2021 16:22:47 Date Recorded Body height Body mass index (BMI) Body weight Provider Name and Address Organization Details Last Updated DateTime 08/11/2021 160.02 cm 28.3 kg/m2 39536.78 g Lamont Bravo MD [address] [place] [address],[place] [phone] [place] [address] Urology 08/11/2021 16:06:06 Social History Question Answer Notes LastModified by Organizat ion Details LastModified Time Tobacco Smoking Status Never Smoker Lamont Bravo MD [address] [place] [address],[address], [phone] [place] [address] Urology 03/20/2021 16:24:21 What Is Your Level Of Alcohol Consumption? None Information not available 03/20/2021 What Is Your Level Of Caffeine Consumption? Occasional Information not available 03/20/2021 What Was The Date Of Your Most Recent Tobacco Screening? 08/11/2021 Information not available 08/11/2021 Do You Use Any Illicit Or Recreational Drugs? No Information not available 03/20/2021 Do You Or Have You Ever Used Any Other Forms Of Tobacco Or Nicotine? No Information not available 03/20/2021 Sex: Female Functional Status None recorded. Mental Status None recorded. Family History Relationship Description Onset Age of this Age Resolved Age Notes Father Family history of pr ostate cancer Mother Family history of br east cancer Medical History Condition Response High Blood Pressure Y Kidney Stones Y High Cholesterol Y Heart Disease Y Gynecological HistoryNo gynecological history recorded. Obstetrics History GPAL:G 0 P 0 0 0 0 Immunizations Vaccine Type Date Status Provider Name and Address Organization Details Recorded Time pneumococcal polysaccharide PPV23 04/30/2010 completed Lamont Bravo MD [address] [place] [address],[address] [place] [address], [phone], [facility] 08/11/2021 16:07:09 Pneumococcal conjugate PCV 13 01/31/2015 completed Lamont Bravo MD [address] [place] [address],[address], [phone], [facility] 08/11/2021 16:07:09 pneumococcal polysaccharide PPV23 03/28/2015 completed Lamont Bravo MD [address] [place] [address],[address], [phone], [facility] 08/11/2021 16:07:09 Pneumococcal conjugate PCV 13 03/28/2016 completed Lamont Bravo MD [address] [place] [address],[address], [phone], [facility] 08/11/2021 16:07:10 pneumococcal polysaccharide PPV23 03/09/2016 completed Lamont Bravo MD [address] [place] [address],[address], [phone], [facility] 08/11/2021 16:07:10 Past Encounters Encounter ID Performer Location Encounter Start Date Encounter Closed Date Diagnosis/Indication [id number] MD TAMIKA Hudson_Nara [address] [place] [address] 03/20/2021 16:12:05 03/24/2021 11:06:39 Kidney stone [id number] MD TAMIKA Hudson_Nara [address] [place] [address] 08/11/2021 15:52:49 08/12/2021 12:43:33 Xanthogranulomatous pyelonephritis Health Concerns Section Related Observation LastModified by Organization Detai ls LastModified Time None Recorded Concern Status LastModified by Organization Details LastModified Time None Recorded Advance Directives Directive None Recorded Payers Encounter Date Sequence Insurance Name Policy Number Policy Oshea Covered Member ID Oshea Member ID Guarantor Name 08/11/2021 1 [place]: [employer] Tanner James [id number] [employer] Stephanie James 08/11/2021 2 [employer] (MEDICARE SUPPLEMENT) Tanner James [id number] [employer] Brown Erika 03/20/2021 1 MEDIC[place] B-[place]: [employer] Tanner James [id number] Tanner James 03/20/2021 2 [employer] (MEDICARE SUPPLEMENT) Tanner James [id number] Tanner James Notes Date Note Type Note Provider Name and Address Organization Details Recorded Time 03/20/2021 text/html HPI Notes: New patient here to discuss nephrectomy. She fell when she was at [place] and that led to a CT scan that showed an atrophic kidney and a staghorn stone. She's had recurrent pyelonephritis as well. She had ESWL in 2002. She also has a poor aortic valve. Lamont Bravo MD [address] [place] [address],[address] [place] [address], [phone], [facility] 03/20/2021 17:02:40 08/11/2021 text/html HPI Notes: She h as recovered well from surgery. 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 Lamont Bravo MD [address] [place] [address],[address], [place], [phone], [facility] 08/11/2021 16:37:50 OBGyn Episode No OBEpisode recorded.
--- OUTSIDE RECORDS SUMMARY | 2023-07-16 14:49 | XMS_ITS | Referral Summary ---
Author Name Unknown Organization [facility] Address [address] [place] [address] Care Team Providers Care Attending Radiologist Name Role Phone Elsewhere, Pcp Primary Care Provider Unavailabl e Source Comments Patient records contain information from all sites at [facility]. For routine questions regarding patient records, call [phone] during business hours, M-F 8:00 AM - 5:00 PM Central Time. Record requests for emergency care only can be directed to [phone] at any time.[facility] Encounters Date Type Department Care Team Description 07/06/2023 Clinical Communication Department of Family Medicine in [place], [place] [address] [place] [address] Louie Malagon M.D. Cardiac Rehab from Last 3 Months Allergies Active Allergy Reactions Criticality Noted Date [...] mg /3 mL nebulizer solutionIndicati ons:Bronchiectas is (HCC) USE 1 VIAL VIA NEBULIZER TWICE DAILY. USE PRIOR TO SALINE NEBULIZER SOLUTION FOR BRONCHIAL HYGIENE(MUCUS CLEARANCE) 180 mL 11 01/30/2022 Active sodium chloride (HYPERSAL) 7 % nebulizer solutionIndicati ons:Bronchiectas is (HCC) USE 1 VIAL VIA NEBULIZER TWICE DAILY. [...] Renal Acute (Acute Kidney Injury) 12/25/2020 12/25/2020 Immunizations Name Administration Dates Next Due Tdap [...] How often do you attend chur or buddhism services? Never 08/12/2022 Do you belong to any clubs o r organizations such as cheondoism groups, unions, fraternal or athletic groups, or [...] and heating? Not hard at all 08/12/2022 [facility] - Occupational Stress [...] place to sleep or slept in a group home (including now)? No 08/12/2022 Nutrition Answer Date [...] 36.1 ??C (97 ??F) 08/17/2022 10:57 AM [employer] Respiratory Rate 18 01/09/2022 8:24 AM CDT Oxygen Saturation 98% 01/09/2022 8:24 AM CDT Inhaled Oxygen Concentration - - Weight 74.1 kg (163 lb 5.8 oz) 01/06/2022 11:26 AM CDT Height 160 cm (5' 2.99) 01/06/2022 11:26 AM CDT Body Mass Index 28.95 01/06/2022 11:26 AM CDT Plan of Treatment Not on file Advance Directives For more information, please contact: [phone] Latest Code Status on File Code Status Date Activated Date Inactivated Comments DNR/DNI 12/28/2021 12:42 PM 01/09/2022 1:10 PM Code Status History Code Status Date Activated Date Inactivated Comments DNR/DNI 12/23/2020 8:47 PM 12/25/2020 5:38 PM Full Code 12/23/2020 8:20 PM 12/23/2020 8:47 PM Question Answer Comments Full Code: Discussed Care Teams Attending Radiologist Relationship Specialty Start Date End Date Elsewhere, Pcp PCP - General 12/24/20
--- OUTSIDE RECORDS SUMMARY | 2023-07-16 14:49 | XMS_ITS | Clinical Summary ---
Author Name Unknown Organization [facility] Address [place], [place] [address] Care Team Providers Care Pipe Coverer Name Role Phone Swapnil Henley MD Unavailable [phone] Unavailable Funmi Medina Unavailable [phone] Kyle Healy MD Primary Care Provider [phone] Allergies Active Allergy Reactions Criticality Noted Date Comments Terbinafine Hcl Fever,Headache 04/29/2020 Headaches, fever Levofloxacin Other - Describe In Comment Field 07/09/2021 Severe tendon issues Nsaids (Non-Steroidal Anti-Inflammatory Drug) GI Bleeding 01/22/2017 Medications Medication Sig Dispensed Refills Start Date End Date Status Cholecalciferol, Vitamin D3, (VITAMIN D-3) 2,000 unit tabletIndications:V itamin D deficiency Take 1 tablet by mouth once daily. 0 02/01/20 15 Active multivit-min/iron/f olic acid/K (ADULTS MULTIVITAMIN ORAL) Take 1 Tab by mouth once daily. 0 11/04/19 16 Active Lactobacillus acidophilus (PROBIOTIC) 10 billion cell cap Take 1 Capsule by mouth once daily. 0 Active folic acid 1 mg tablet Take 3 tablets by mouth once daily. 0 04/29/20 20 Active rosuvastatin (CRESTOR) 5 mg tabletIndications:D yslipidemia Take 1 tablet by mouth at bedtime. 90 tablet 3 05/07/20 20 Active sodium chloride (OCEAN) 0.65 % nasal solutionIndications :Nasal dryness Inhale 2 Sprays into affected nostril(s) every 30 minutes if needed for Nasal Congestion or Nasal Dryness. 45 mL 0 04/22/20 21 Active furosemide (Lasix) 20 mg tablet Take 40 mg by mouth every morning. 0 Active predniSONE (DELTASONE) 5 mg tablet Take 10 mg by mouth once daily with a meal. 0 Active PARoxetine (PAXIL) 20 mg tablet Take 20 mg by mouth at bedtime. 0 Active valGANciclovir (Valcyte) 450 mg tablet Take 450 mg by mouth once daily with a meal. 0 Active acetaminophen (TYLENOL) 325 mg tabletIndications:F ibromyalgia Take 2 Tablets (650 mg) by mouth every 4 hours if needed for Pain (For mild pain.). Max acetaminophen dose: 4000mg in 24 hrs. 0 05/07/20 23 Active albuterol (PROVENTIL) 0.083 % neb solution Inhale 3 mL (2.5 mg) via a nebulizer two times daily. May give an additional 2.5 mg via neb twice daily if needed. OK to mix albuterol neb solution and 3% sodium chloride solution together during BID administrations. 0 05/11/20 23 Active sodium chloride 3% nebulization 3 % nebulizer solutionIndications :Bronchiectasis with acute lower respiratory infection (HC) Inhale 4 ml (one vial) via nebulization route, twice daily. OK to mix albuterol neb solution and 3% sodium chloride solution together during BID administrations. 0 05/11/20 23 Active artificial tears, peg 400-propylene glycol, (Systane) 0.4-0.3 % ophthalmic dropperette Place 2 Drops into both eyes two times daily. 0 05/11/20 23 Active sennosides (SENNA) 8.6 mg tablet Take 1 Tablet (8.6 mg) by mouth two times daily. Hold for loose stools. 0 05/17/20 23 Active ascorbic acid, vitamin C, (Vitamin C) 1,000 mg tablet Take 0.5 Tablets (500 mg) by mouth once daily. 0 06/11/20 23 Active ferrous sulfate, 65 mg elemental, (Iron) tablet Take 325 mg by mouth once daily with a meal. 0 Active guaiFENesin (Mucinex) 600 mg Extended-Release tablet Take 2 Tablets (1,200 mg) by mouth 2 times daily if needed for Expectoration. 0 06/11/20 23 Active metoprolol succinate (TOPROL XL) 25 mg Sustained-Release tablet Take 1 Tablet (25 mg) by mouth two times daily. 0 06/11/20 23 Active apixaban (ELIQUIS) 2.5 mg tabletIndications:p ulmonary thromboembolism Take 1 Tablet (2.5 mg) by mouth two times daily. 0 06/30/19 24 Active nystatin powder (MYCOSTATIN) powderIndications:Y east infection of the skin Apply topically to affected area(s) two times daily. To pannus 0 06/30/19 24 Active oxyCODONE (ROXICODONE) 5 mg immediate release tabletIndications:P seudoaneurysm of femoral artery following procedure (HC) Take 2 Tablets (10 mg) by mouth every 4 hours if needed for Pain. 20 Tablet 0 06/30/19 24 Active polyethylene glycol (MIRALAX; GLYCOLAX) 17 g per packet packetIndications:C onstipation, unspecified constipation type Take 17 g by mouth or nasogastric tube once daily if needed for Constipation. 0 06/30/19 24 Active apixaban (ELIQUIS) 2.5 mg tabletIndications:p ulmonary thromboembolism Take 1 Tablet (2.5 mg) by mouth two times daily. Ok to restart taking 3 days after surgery 07/14/21Wednesday 0 03/17/20 22 024 Discontinued HYDROcodone-acetami nophen (5-325 mg/tablet)Indicatio ns:Fibromyalgia Take 1 Tablet by mouth every 6 hours if needed for Pain. Max acetaminophen dose: 4000 mg in 24 hrs. 20 Tablet 0 06/02/20 23 024 Discontinued(*I P Discontinued) Active Problems Problem Noted Date Diagnosed Date Pseudoaneurysm of femoral artery following proce dure 06/29/2023 Retroperitoneal hematoma 06/21/2023 Acute blood loss anemia 06/21/2023 Acute respiratory failure with hypoxia Morbid (severe) obesity due to excess calories 1 07/21/2022 Hemorrhagic disorder due to extrinsic circulating anticoagulants 05/21/2023 NSTEMI (non-ST elevated myocardial infarction) 1 07/05/2022 Aortic stenosis, severe 05/05/2023 Acute on chronic heart failu re with preserved ejection fraction 05/05/2023 Acute encephalopathy 05/05/2023 Immunosuppression 05/05/2023 COPD (chronic obstructive pulmonary disease) 01/2023 Methotrexate adverse reaction 05/05/2023 Pancytopenia 05/05/2023 Open abdominal wall wound 05/05/2023 Anticoagulated 05/05/2023 Age related osteoporosis 10/04/2018 Fibromyalgia 10/04/2018 Essential hypertension 01/21/2018 Anxiety 05/14/2016 Current chronic use of systemic steroids 016 CKD (chronic kidney disease) stage 3, GFR 30-59 ml/min 11/10/2013 Rheumatoid arthritis involvi ng multiple sites with positive rheumatoid factor 11/13/2009 Overview: Followed by Dr Swapnil Henley: Sheila Joonberry On MTX and prednisone. June 2012 tried plaquinil [no improvement ] Summer 2012 failed arenacea. 2014 Failed Rituxin; Start Remicade fall 2015 Resolved Problems Problem Noted Date Diagnosed Date Resolved Date Nonfunctioning kidney 07/11/20212022 Pulmonary emboli 04/12/2021 05/05/2023 EMELI (acute kidney injury) 04/12/2021 Staghorn kidney stones 04/12/202105/05 Anemia due to acute blood loss 12/25/2020 05/05/2023 Closed fracture of second lumbar vertebra 12/24/2020 05/05/2023 Overview: L2 TP fracture Closed fracture of tibia 12/24/202001/2023 Laceration of forehead 12/24/202005/05 Rupture of ligament of wrist 12/24/2020 05/05/2023 Overview: Concern for partial thickness scapholunate ligament tear History of falling 12/23/2020 Obesity due to excess calori es with serious comorbidity 01/17/2019 05/05/2023 Gout 10/10/2018 05/05/2023 Long-term use of immunosuppressant medication 10/05/19 19 05/05/2023 Primary osteoarthritis of both knees 10/04/2018 05/05/2023 Screening for colon cancer 01/12/2018 1 07/05/2022 Overview: Large 1cm tubular adenomatous polyp removed on colonoscopy on 10/26/18. 3 year follow up recommended (October 2021). Pulmonary embolism 12/14/2016 9 Hyponatremia 12/10/2016 05/05/2023 Pneumonia 12/10/2016 10/10/2018 Renal insufficiency 12/10/2016 10/11/19 19 Fever and chills 12/10/2016 10/10/2018 Rheumatoid arthritis involving multiple sites 12/11/1905/05/2023 Diastolic heart failure 05/25/2016 11/0 01/2023 Alcoholism 05/14/2016 05/05/2023 Ocular migraine 11/15/2015 05/05/2023 Morbid obesity with BMI of 40.0-44.9, adult 11/15/2015 01/17/2019 Psoriatic arthritis 01/16/2015 05/05/20 Fatty infiltration of liver 11/21/2013 05/05/2023 Overview: ULTRASOUND 10/2013; Abnormal liver function tests; history of Ethanol abuse; Diastolic dysfunction, left ventricle 11/10/2013 05/05/2023 Overview: Echocardiogram 09/2013 [place]; Ejection fraction 65% H/O alcohol abuse 11/10/2013 05/05/2023 Overview: Quit alcohol use 2007 Vitamin D deficiency 08/23/2013 023 Family history of breast can cer in first degree relative 05/14/2013 05/05/2023 Overview: Mother, daughter: Stress to patient need for annual mammogram; 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 Patient discontinued 05/2012. 12/20/2012 start venlafaxine 37.5mg Osteopenia 12/07/2011 05/05/2023 Overview: Knot Bumper wants patient to be on alendronate indefinitely due to her prednisone use so she restarted it on 10/04/18. DXA 02/12/18 Hip T-score -1.9 FRAX = 10.8% / 2% STOP alendronate and repeat DXA in 1 year (January 2019) DXA 05/2015 Hip T -1.8 FRAX = 19.2% / 3.5% START alendronate DXA -; T hip -1.61 FRAX = 14%/2.2% (Rx was not recommended; repeat DXA 2014) Aortic stenosis, moderate 10/26/2011 Overview: Systolic murmur. ECHO: 03/2009: EF WNL. Surgical wound infection 06/30/2010 GERD (gastroesophageal reflux disease) 04/29/2010 05/05/2023 Overview: Atypical chest pain Spinal stenosis, lumbar curtis on, without neurogenic claudication 04/25/2010 10/26/2011 Degenerative spondylolisthesis 04/25/2010 05/05/2023 Psoriatic arthritis 11/13/2009 11/14/19 10 Spinal stenosis, lumbar curtis on, without neurogenic claudication 11/13/2009 05/05/2023 Overview: History lumbar lamiX and Fusion Dr Corea 04/2010 Acute Anemia 04/13/2009 04/21/2010 Overview: HGB 9.6 ON ADMIT TO [facility] 03/2009; ENDOSCOPY REVEALED SHALLOW GASTRIC ULCERATIONS WITH CMV GASTRITIS AND H PYLORI; TREATED WITH CLARITHROMYCIN, AMPICILLIN AND OMEPRAZOLE Hypotension 04/13/2009 11/13/2009 Blood in stool 04/13/2009 11/13/2009 Acute renal failure 04/13/2009 11/14/19 10 Fatigue 04/13/2009 11/13/2009 Loss of weight 04/13/2009 11/13/2009 UTI (urinary tract infection) 04/13/2009 04/21/2010 Thrombocytopenia 04/13/2009 11/13/2009 Hypertension 04/13/2009 01/21/2018 Rheumatoid arthritis(714.0) 12/25/2008 11/13/2009 Health maintenance 12/25/2008 7 Overview: Last PE, 11/26/11 Pap, 04/2011 negative Lipids, 11/26/11 total- 225 trig- 139 hdl- 72 ldl- 125 Mammo, 05/2011 normal Dexa, 11/26/11 osteopenia; Hip -1.61 Forearm -1.67 Colonoscopy, 11/12/08; normal; repeat at 5 year due to FH Td, 03/15/03 Hematuria 05/05/2023 Encounters Date Type Department Care Team Description 07/15/2023 Telephone [facility] [address] [place] [address] [place] [address] Tyree Armijo MD Results (Echo ) 07/14/2023 2:37 PM LOT ATTENDANT - 07/14/2023 11:59 PM LOT ATTENDANT Hospital Encounter [facility] [address] [place] [address] Tyree Armijo MD Homol, Arvitt Moderate aortic valve stenosis 07/14/2023 Travel 07/09/2023 3:30 PM LOT ATTENDANT Office Visit [facility] [address] [place] [address] Aki Angela MD CV Vascular Est (Wound check and Drain removal; s/p PSA repair) 07/09/2023 Travel 06/29/2023 Telephone [facility] [address] [place] [address] Aki Angela MD Appointment Request 06/23/2023 9:39 AM LOT ATTENDANT Anesthesia Event [facility] [address], [place] [address] Andreia Carlson MD 06/23/2023 9:15 AM LOT ATTENDANT - 06/23/2023 11:41 AM LOT ATTENDANT Surgery [facility] [address], [place] [address] Aki Angela MD RIGHT FEMORAL PSEUDOANEURYSM REPAIR 06/21/2023 6:26 PM LOT ATTENDANT - 07/01/2023 11:20 AM LOT ATTENDANT Hospital Encounter [facility] [address] [place] [address] [facility] [place] Hospitalists Of Hubert Richardson MD Hennum, Nate Stanley MD Pseudoaneurysm (HC) (Primary Dx); Acute pulmonary embolism, unspecified pulmonary embolism type, unspecified whether acute cor pulmonale present (HC); Yeast infection of the skin; Pseudoaneurysm of femoral artery following procedure (HC); Constipation, unspecified constipation type Discharge Disposition: Residential Facility 06/16/2023 6:03 AM LOT ATTENDANT - 06/18/2023 4:10 PM LOT ATTENDANT Hospital Encounter [facility] [address] [place] [address] Rey Rousseau MD Bouhia, Sara, CRNA Anderson, Andreia Mckeon MD Aortic valve stenosis, etiology of cardiac valve disease unspecified (Primary Dx); Fibromyalgia Discharge Disposition: Home Self Care 06/16/2023 Travel 06/15/2023 Orders Only [facility] [address] [place] [address] Rehan Alarcon NP <No scans attached> 06/11/2023 9:00 AM LOT ATTENDANT Office Visit [facility] [address] [address] Toni Osuna MBBS CV Valve Est (VALVE EST:PRE-OP TAVR,LABS PRIOR,NEEDS EKG,[facility] 5WALK,LETTER SENT, HJK//PCP: Kyle Healy MD/) 06/11/2023 8:30 AM LOT ATTENDANT Orders Only [facility] [address] [address] Lab 06/11/2023 Telephone [facility] [address] [address] Rey Rousseau MD Health Maintenance Update (TAVR arrival time change) 06/11/2023 Telephone [facility] [address] [place] [phone] Rey Rousseau MD 06/11/2023 Travel 06/04/2023 Patient Outreach [facility] Care Management - Care Management Navigation/[facility] [address] [place] [address] Funmi Medina [facility] Transition 06/02/2023 10:[address] [facility] [address]ter [address] [address] Claudia Alexandre NP Transitional Care Visit (Follow up & discharge) 05/26/2023 11:[address] [facility] Shelter [address] [address] Milvia Almeida MD Transitional Care Visit (Follow up) 05/26/2023 Orders Only [address] [address] Claudia Alexandre, HERNAN Refill Request 05/25/2023 Nurse Triage [address] [address] Migdalia Carr, radiographer technologist Management 05/25/2023 Telephone [facility] [address] [place] [phone] Rey Rousseau MD Surgery Scheduled (TAVR scheduling. ) 05/17/2023 9:[address] [facility] [address] [address] Claudia Alexandre NP Transitional Care Visit (Follow up) 05/15/2023 Nurse Triage [address] [address] Christina Rogers, PEEWEE Concerns (lump RLQ) 05/13/2023 Orders Only [facility] Scanner 1 scan: (1-Ord) [facility], BASIC METABOLIC PANEL RESULTS, 05/13/2023 05/13/2023 Nurse Triage [address] [address] Tadeo Mcmullen, RN Abnormal Lab Results 05/12/2023 11:30 AM LOT ATTENDANT Shelter [address] [address] Milvia Almeida MD Transitional Care Visit (Initial) 05/11/2023 Patient Outreach [facility] Care Management - Care Management Navigation/[facility] [address] [place] [address] Funmi Medina [facility] Transition 05/10/2023 11:00 AM LOT ATTENDANT Shelter [address] [address] Claudia Alexandre NP Transitional Care Visit (Admit) 05/09/2023 Nurse Triage [address] [address] Chio Coker RN Medication Management 05/04/2023 10:28 PM LOT ATTENDANT - 05/08/2023 11:09 AM LOT ATTENDANT Hospital Encounter [facility] [address] [place] [address] [facility] Hospitalists Of Sunny Rivera MD Larson, Allie Culp MD Fibromyalgia (Primary Dx) Discharge Disposition: Residential Facility 04/29/2023 5:00 PM CDT Ancillary Procedure [facility] [place] [facility] [address] [place] [address] from Last 3 Months Immunizations Name Administration Dates Next Due AMB INFLUENZA IIV3 (AGE 65+ YRS) PF (Flu Clinic Only) 04/19/2018 Hepatitis A (Adult) 10/20/2004,03/07/2004 Influenza, High-dose Inactivated 04/25/2019,02/26,03/30/2014 Influenza, IIV3 (Age >=3 years) 04/03/20 13,04/15/2012,04/30/2010,2008 Oral Polio Vaccine 03/07/2004 Pneumococcal Poly,23-Valent (Pneumovax) 03/09/2016,03/28/2015,04/30/2010 Pneumococcal conj 13-Valent (Prevnar 13) 03/28/2016,01/31/2015 Td (Age >=7 Years) 03/15/2003 Tdap 05/28/2012 Typhoid (injectable) 03/07/2004 Family History Medical History Relation Name Comments Cancer-breast Daughter Cancer-prostate Father 85, living Cancer-breast Mother Heart Disease Mother S/p angioplast y in her 80s Stroke Mother Ruptured AVM - recovered fully Good Health Other 6 siblings and 3 children all in good health Relation Name Status Comments Daughter Father Mother Other Social History Tobacco Use Types Packs/Day Years Used Date Smoking Tobacco: Never Smokeless Tobacco: Never Tobacco Cessation:Counseling Given: Yes Alcohol Use Standard Drinks/Week Comments Not Currently 0 (1 standard drink = 0.6 oz pure alcohol) Went through treatment for alcoholism in 2007 - had been a very functional alcoholic PHQ-2 Answer Date Recorded PHQ-2 Score 2 01/17/2019 Social Connections Answer Date Recorded Frequency of Communication with Friends and Fami ly Not on file 06/25/2021 Financial Resource Strain Answer Date R ecorded Difficulty of Paying Living Expenses Not on file 06/25/2021 Difficulty of Paying Living Expenses Not on file 06/25/2021 Sex and Gender Information Value Date Recorded Sex Assigned at Not on file Gender Identity Not on file Sexual Orientation Not on file Obstetrics History Last Filed Vital Signs Vital Sign Reading Time Taken Comments Blood Pressure 124/58 07/09/2023 3:27 PM LOT ATTENDANT Pulse 78 07/09/2023 3:27 PM LOT ATTENDANT Temperature 36.4 ??C (97.6 ??F) 07/01/2023 8:06 AM CS T Respiratory Rate 16 07/09/2023 3:27 PM LOT ATTENDANT Oxygen Saturation 96% 07/09/2023 3:27 PM LOT ATTENDANT Inhaled Oxygen Concentration - - Weight 79.4 kg (175 lb) 07/09/2023 3:27 PM LOT ATTENDANT Height 160 cm (5' 3) 06/21/2023 6:40 PM LOT ATTENDANT Body Mass Index 31 06/21/2023 6:40 PM LOT ATTENDANT Plan of Treatment Upcoming Encounters Date Type Department Care Team (Late st Contact Info) Description 07/27/2023 9:30 AM LOT ATTENDANT Appointment [facility] [address] [facility] [place] [address] 07/27/2023 11:20 AM LOT ATTENDANT Orders Only [facility] [address] [address] [place] [phone] 07/27/2023 11:30 AM LOT ATTENDANT Appointment [facility] [address] [place] [address] 07/27/2023 1:00 PM LOT ATTENDANT Office Visit [facility] [address] [place] [address] [place] [address] Health Maintenance Due Date Last Done Comments Hepatitis C screening for age 18-79 1963 Medicare Wellness for age 65+ 01/17/2020 01/17/2019, 01/12/2018, 12/20/2012 Depression screening for age 12+ 01/18/2020 01/17/2019, 01/12/2018, 03/09/2016, Additional history exists Tetanus booster 05/28/2022 05/28/2012, 03/15/2003 COVID-19 vaccine series ( season) 2023 03/24/2022, 05/02/2021, 09/10/2020, Additional history exists Influenza for age 65+ 02/26/2023 04/25/2019 , 04/19/2018, 03/09/2016, Additional history exists BMI (ht and wt on same day) for age 18+ 06/11/2024 06/11/2023, 07/02/2022, 01/29/2021, Additional history exists Zoster (shingles) series for age 50+ (1 of 2) 06/27/2025 Postponed from 1997 (Other) Tdap Completed 05/28/2012 Pneumococcal series for age 65+ Completed 03/28/2016, 03/09/2016, 03/28/2015, Additional history exists DEXA/DXA scan for age 65+ Completed 2017, 02/27/2015, 11/26/2011 Medical Devices Implanted Type Area Flame Hardening Machine Operator Device Identifier Shelf Expiration Date Model / Serial / Lot Screw Tsrh Og Thin 6.5x50mm - [id number] Implanted:Qty: 3 on 04/28/2010 at [facility] N/A: Spine [employer]FAM[employer] DANEK [id number] / / Screw Locking 4x20mm Fine Tip Titnm - [id number] Implanted:Qty: 4 on 04/28/2010 at [facility] ConferenceEdge [id number] # / / Screw Thin Crest 6.5x45mm - [id number] Implanted:Qty: 1 on 04/28/2010 at [facility] [id number]# / / Set Screw 3dx - [id number] Implanted:Qty: 4 on 04/28/2010 at [facility] [id number]# / / Cnnctr Tsrh 3dx Sm - [id number] Implanted:Qty: 4 on 04/28/2010 at [facility] Medtronic [id number]# / / Rios 3.5cmx5.5mm Pre-Cut - [id number] Implanted:Qty: 2 on 04/28/2010 at [facility] [id number]# / / Kit Infuse Md - [id number] Implanted:Qty: 1 on 04/28/2010 at [facility] Spine [facility] 10/26/2012 [id number]# / / [id number] Filler Bio [id number] - [id number] Implanted:Qty: 1 on 04/28/2010 at [facility] [id number]# / / [id number] Synfix Lr 26mm Implanted:Qty: 1 on 04/28/2010 at [facility] [employer] 08.802.017 S / / [id number] Description:SYNFIX LR 26MM Procedures Procedure Name Priority Date/Time Associated Diagnosis Comments ECHO TTE COMPLETE WO CONTRAST Routine 07/15/2023 3:26 PM LOT ATTENDANT Moderate aortic valve stenosis SCAN-CARDIAC STRIP 07/01/2023 4:46 AM LOT ATTENDANT SCAN-CARDIAC STRIP 06/30/2023 8:37 PM LOT ATTENDANT SCAN-CARDIAC STRIP 06/29/2023 10:53 PM LOT ATTENDANT SCAN-CARDIAC STRIP 06/29/2023 7:18 PM LOT ATTENDANT SCAN-CARDIAC STRIP 06/29/2023 10:43 AM LOT ATTENDANT SCAN CORRESP-IMAGING 06/29/2023 10:21 AM LOT ATTENDANT SCAN-CARDIAC STRIP 06/29/2023 2:02 AM LOT ATTENDANT PLATELET ORDER STAT 06/28/2023 11:06 PM LOT ATTENDANT SCAN-CARDIAC STRIP 06/28/2023 9:38 PM LOT ATTENDANT RENAL FUNCTION PANEL Early AM 06/28/2023 7:47 AM LOT ATTENDANT SCAN-CARDIAC STRIP 06/28/2023 7:18 AM LOT ATTENDANT SCAN-CARDIAC STRIP 06/28/2023 12:58 AM LOT ATTENDANT SCAN-CARDIAC STRIP 06/27/2023 6:48 PM LOT ATTENDANT SCAN-CARDIAC STRIP 06/27/2023 6:[address] ANGIO ABDOMEN PELVIS Routine 06/27/2023 4:32 PM LOT ATTENDANT CREATININE PUSHPA 06/27/2023 2:43 PM LOT ATTENDANT POTASSIUM Today 06/27/2023 2:43 PM LOT ATTENDANT HEMOGLOBIN PUSHPA 06/27/2023 2:43 PM LOT ATTENDANT SCAN-CARDIAC STRIP 06/27/2023 7:28 AM LOT ATTENDANT SCAN-CARDIAC STRIP 06/26/2023 4:49 PM LOT ATTENDANT HEMOGLOBIN Early AM 06/26/2023 8:04 AM LOT ATTENDANT SCAN-CARDIAC STRIP 06/26/2023 6:53 AM LOT ATTENDANT SCAN-CARDIAC STRIP 06/25/2023 8:13 PM LOT ATTENDANT TRANSFUSE RBC (NURSE COMMUNICATION ORDER) STAT 06/25/2023 2:11 PM LOT ATTENDANT RBC W/O TYPE & SCREEN Today 06/25/2023 9:16 AM LOT ATTENDANT RED BLOOD CELLS EA UNIT Today 06/25/2023 9:13 AM LOT ATTENDANT HEMOGLOBIN Early AM 06/25/2023 7:16 AM LOT ATTENDANT CREATININE Early AM 06/25/2023 7:16 AM LOT ATTENDANT POTASSIUM Early AM 06/25/2023 7:16 AM LOT ATTENDANT SCAN-CARDIAC STRIP 06/25/2023 5:53 AM LOT ATTENDANT SCAN-CARDIAC STRIP 06/25/2023 12:00 AM LOT ATTENDANT SCAN-CARDIAC STRIP 06/24/2023 11:15 PM LOT ATTENDANT SCAN-CARDIAC STRIP 06/24/2023 7:05 PM LOT ATTENDANT SCAN-CARDIAC STRIP 06/24/2023 3:43 PM LOT ATTENDANT SCAN-CARDIAC STRIP 06/24/2023 8:21 AM LOT ATTENDANT TSH PUSHPA 06/24/2023 7:37 AM LOT ATTENDANT PLATELET COUNT PUSHPA 06/24/2023 7:37 AM LOT ATTENDANT PHOSPHORUS PUSHPA 06/24/2023 7:37 AM LOT ATTENDANT CALCIUM PUSHPA 06/24/2023 7:37 AM LOT ATTENDANT MAGNESIUM PUSHPA 06/24/2023 7:37 AM LOT ATTENDANT POTASSIUM Early AM 06/24/2023 7:37 AM LOT ATTENDANT HEMOGLOBIN Early AM 06/24/2023 7:37 AM LOT ATTENDANT SCAN-CARDIAC STRIP 06/24/2023 12:33 AM LOT ATTENDANT SCAN-CARDIAC STRIP 06/23/2023 7:35 PM LOT ATTENDANT SCAN-CARDIAC STRIP 06/23/2023 3:57 PM LOT ATTENDANT ENDOTRACHEAL TUBE Routine 06/23/2023 10:22 AM LOT ATTENDANT ENDOTRACHEAL TUBE Routine 06/23/2023 10:22 AM LOT ATTENDANT ENDOTRACHEAL TUBE Routine 06/23/2023 10:22 AM LOT ATTENDANT CUTDOWN FEMORAL ARTERY 06/23/2023 9:26 AM LOT ATTENDANT RIGHT FEMORAL PSEUDOANEURYSM Case Notes RIGHT FEMORAL PSEUDOANEURYSM REPAIR SCAN-CARDIAC STRIP 06/23/2023 7:35 AM LOT ATTENDANT TYPE & SCREEN Timed 06/23/2023 6:23 AM LOT ATTENDANT PLATELET ESTIMATE Timed 06/23/2023 6:23 AM LOT ATTENDANT BASIC METABOLIC PANEL Timed 06/23/2023 6:23 AM LOT ATTENDANT CBC W PLT NO DIFF Timed 06/23/2023 6:23 AM LOT ATTENDANT SCAN-CARDIAC STRIP 06/22/2023 11:17 PM LOT ATTENDANT SCAN-CARDIAC STRIP 06/22/2023 9:58 PM LOT ATTENDANT SCAN-CARDIAC STRIP 06/22/2023 3:46 PM LOT ATTENDANT HEMOGLOBIN Timed 06/22/2023 2:09 PM LOT ATTENDANT SCAN-CARDIAC STRIP 06/22/2023 8:28 AM LOT ATTENDANT PLATELET ESTIMATE Timed 06/22/2023 6:49 AM LOT ATTENDANT CBC W PLT NO DIFF Early AM 06/22/2023 6:49 AM LOT ATTENDANT BASIC METABOLIC PANEL Early AM 06/22/2023 6:49 AM LOT ATTENDANT US ARTERIAL LOWER EXTREMITY PSEUDOANEURYSM RIGHT Routine 06/22/2023 1:45 AM LOT ATTENDANT SCAN-CARDIAC STRIP 06/21/2023 11:05 PM LOT ATTENDANT HEMOGLOBIN STAT 06/21/2023 7:26 PM LOT ATTENDANT SCAN-CARDIAC STRIP 06/21/2023 6:43 PM LOT ATTENDANT SCAN-CARDIAC STRIP 06/21/2023 12:00 AM LOT ATTENDANT SCAN-CARDIAC STRIP 06/18/2023 10:09 AM LOT ATTENDANT MAGNESIUM Early AM 06/18/2023 6:50 AM LOT ATTENDANT POTASSIUM Early AM 06/18/2023 6:50 AM LOT ATTENDANT SCAN-CARDIAC STRIP 06/17/2023 11:55 PM LOT ATTENDANT SCAN-CARDIAC STRIP 06/17/2023 4:46 PM LOT ATTENDANT SCAN-CARDIAC STRIP 06/17/2023 9:01 AM LOT ATTENDANT SCAN-CARDIAC STRIP 06/17/2023 7:12 AM LOT ATTENDANT PLATELET ESTIMATE Timed 06/17/2023 6:24 AM LOT ATTENDANT BASIC METABOLIC PANEL Early AM 06/17/2023 6:24 AM LOT ATTENDANT CBC W PLT NO DIFF Early AM 06/17/2023 6:24 AM LOT ATTENDANT EKG 12 LEAD Early AM 06/17/2023 5:37 AM LOT ATTENDANT SCAN-CARDIAC STRIP 06/16/2023 11:36 PM LOT ATTENDANT SCAN-CARDIAC STRIP 06/16/2023 11:34 PM LOT ATTENDANT EKG 12 LEAD PUSHPA 06/16/2023 3:24 PM LOT ATTENDANT SCAN-CARDIAC STRIP 06/16/2023 1:53 PM LOT ATTENDANT ECHO TTE LIMITED W CONTRAST W COLOR Routine 06/16/2023 11:49 AM LOT ATTENDANT HCHG ACTIVATED CLOTTING TM CV Timed 06/16/2023 8:50 AM LOT ATTENDANT CVL TAVR Routine 06/16/2023 8:31 AM LOT ATTENDANT RED BLOOD CELLS EA UNIT STAT 06/16/2023 7:30 AM LOT ATTENDANT RED BLOOD CELLS EA UNIT STAT 06/16/2023 7:30 AM LOT ATTENDANT TYPE & SCREEN Preop 06/16/2023 6:48 AM LOT ATTENDANT GLUCOSE, FASTING Preop 06/16/2023 6:48 AM LOT ATTENDANT EKG 12 LEAD Routine 06/11/2023 9:05 AM LOT ATTENDANT Aortic valve stenosis, etiology of cardiac valve disease unspecified TYPE & SCREEN Routine 06/11/2023 8:58 AM LOT ATTENDANT Pre-op testing ALBUMIN Routine 06/11/2023 8:58 AM LOT ATTENDANT Pre-op testing CBC W PLT NO DIFF Routine 06/11/2023 8:58 AM LOT ATTENDANT Pre-op testing BASIC METABOLIC PANEL Routine 06/11/2023 8:58 AM LOT ATTENDANT Pre-op testing SCAN-LABORATORY REPORT 05/13/2023 12:00 AM LOT ATTENDANT SCAN-CARDIAC STRIP 05/07/2023 9:50 PM LOT ATTENDANT NM CARDIAC AMYLOID TC PYP Routine 05/07/2023 12:47 PM LOT ATTENDANT SCAN-CARDIAC STRIP 05/07/2023 9:00 AM LOT ATTENDANT MAGNESIUM Early AM 05/07/2023 8:19 AM LOT ATTENDANT POTASSIUM Early AM 05/07/2023 8:19 AM LOT ATTENDANT PROTEIN ELP,URINE RANDOM Today 05/06/2023 7:50 PM LOT ATTENDANT IMMUNOFIXATION ELP, URINE Today 05/06/2023 7:50 PM LOT ATTENDANT SCAN-CARDIAC STRIP 05/06/2023 7:08 PM LOT ATTENDANT IMMUNOGLOBULINS FREE LT CHAIN SERUM Today 05/06/2023 5:11 PM LOT ATTENDANT IMMUNOFIXATION,SERUM Today 05/06/2023 5:11 PM LOT ATTENDANT PROTEIN ELP,SERUM Today 05/06/2023 5:11 PM LOT ATTENDANT WHITE BLOOD COUNT Early AM 05/06/2023 8:09 AM LOT ATTENDANT MAGNESIUM Early AM 05/06/2023 8:09 AM LOT ATTENDANT POTASSIUM Early AM 05/06/2023 8:09 AM LOT ATTENDANT CTA CHEST ABD PELVIS TAVR - DUAL READ Routine 05/06/2023 7:41 AM LOT ATTENDANT SCAN-CARDIAC STRIP 05/06/2023 7:08 AM LOT ATTENDANT SCAN-CARDIAC STRIP 05/06/2023 3:38 AM LOT ATTENDANT SCAN-CARDIAC STRIP 05/05/2023 4:26 PM LOT ATTENDANT URINE CULTURE Today 05/05/2023 11:06 AM LOT ATTENDANT BLOOD CULTURE Today 05/05/2023 9:42 AM LOT ATTENDANT MAGNESIUM PUSHPA 05/05/2023 9:36 AM LOT ATTENDANT BLOOD CULTURE Today 05/05/2023 9:36 AM LOT ATTENDANT LACTATE VENOUS Today 05/05/2023 9:36 AM LOT ATTENDANT SCAN CORRESP-EKG RESULTS 05/05/2023 8:42 AM LOT ATTENDANT SCAN CORRESP-LABORATORY RESULTS 05/05/2023 8:42 AM LOT ATTENDANT SCAN CORRESP-DIAGNOSTICS 05/05/2023 8:42 AM LOT ATTENDANT SCAN-CARDIAC STRIP 05/05/2023 8:11 AM LOT ATTENDANT TROPONIN T (HS) ONE TIME Timed 05/05/2023 4:40 AM LOT ATTENDANT PRO-BNP Early AM 05/05/2023 4:40 AM LOT ATTENDANT BASIC METABOLIC PANEL Early AM 05/05/2023 4:40 AM LOT ATTENDANT CBC W PLT NO DIFF Early AM 05/05/2023 4:40 AM LOT ATTENDANT SCAN-CARDIAC STRIP 05/05/2023 12:28 AM LOT ATTENDANT TROPONIN T (HS) ACUTE W/2HR REFLEX STAT 05/05/2023 12:12 AM LOT ATTENDANT ECHO TTE COMPLETE WO CONTRAST Routine 04/29/2023 5:17 PM CDT Heart failure (HC) Aortic stenosis from Last 3 Months Results * ECHO TTE COMPLETE WO CONTRAST (07/15/2023 3:26 PM LOT ATTENDANT) Only the most recent of2 resultswithin the time period is included. AORTIC VALVE MEAN PG 4 mmHg EJECTION FRACTION 65 % LVEDD 3.8 cm Anatomical Region Laterality Modality Ultrasound 07/14/2023 2:46 PM LOT ATTENDANT Narrative 07/14/2023 5:16 PM LOT ATTENDANT ECHOCARDIOGRAM TANNER JAMES ?Accession#: ?? [id number] : ?1945 78 years Study Date: ?? 07/14/2023 2:46:41 PM Gender: F ? BP: ? 131/65 mmHg Height: 160.00 cm ? BSA: ?1.82 m? ? ? Weight: 79.00 kg ?Tech: ? AH ?Referring MD: TYREE ARMIJO Site: ? [facility] Reading Location: [facility] OP Patient Location: Procedure: 2D, Spectral Doppler and Color Doppler. Indication for study: TAVR Cardiac Rhythm: Normal sinus.Study quality: Technically limited. Imaging limitations: This study was subject to imaging limitations due to body habitus. Final Impressions: 1. Technically limited exam. 2. Normal left ventricular size, moderately increased wall thickness, normal global systolic function, calculated EF of 65 %. 3. The aortic valve is a normal functioning 26 mm Saima 3 bioprosthesis AVR, CoreValve bioprosthesis AVR and Medtronic Evolut FX, no stenosis and no regurgitation. 4. Moderately enlarged left atrium. 5. The mitral valve is sclerotic, moderate mitral regurgitation. 6. Severe MAC present. Chamber Sizes and Function Normal left ventricular size, moderately increased wall thickness, normal global systolic function, calculated EF of 65 %. Left atrial size is moderately enlarged. Right ventricular cavity size is normal, global systolic RV function is normal. The right atrium is normal. Right atrial area is 16 cm? ? ?. The pulmonary artery is of normal size and origin. The sinus of Valsalva is not well visualized. The ascending aorta is normal sized. Valves, RV Pressures and Diastolic Function The aortic valve is a normal functioning 26 mm Saima 3 bioprosthesis replacement, CoreValve bioprosthesis replacement and Medtronic Evolut FX, no stenosis and no regurgitation. The mitral valve is sclerotic, moderate mitral regurgitation. Severe mitral annular calcification is present. Indeterminate pattern of LV diastolic filling. The tricuspid valve is not well visualized. Tricuspid regurgitation is regurgitation is not evident. The pulmonic valve is normal. Mild pulmonary regurgitation. Masses, Effusion, Shunts There is no pericardial effusion. The inferior vena cava is normal sized, respiratory size variation greater than 50%. No left to right shunting was detected by limited color flow Doppler interrogation of the interatrial septum. MEASUREMENTS AND CALCULATIONS 2-D Measurements and LV Function: LVID (d) 3.8 cm Planimetered EF 65 % LVID (s) 2.5 cm LV FS% (2D) ? 34 % IVS (d) ??1.3 cm LVOT diameter ?? 2.0 cm LVPW (d) 1.2 cm HR ?71 bpm Asc Ao ?? 2.7 cm RA area ? 16 cm? ? ? LA ? 4.5 cm Diastology: Mitral ?Tissue Doppler E Peak 1.9 m/s ??e', Septum ? 0.05 m/s A Peak 1.0 m/s ??e', Lateral ?0.05 m/s E/A ?1.9 ?E/e' Average ?? 36.08 DT ? 246 msec Aortic Valve: Vmax ? 1.3 m/s ??RADHA (V) ?? 2.73 cm? ? ? VTI ?0.32 m ?? RADHA (I) ?? 2.71 cm? ? ? LVOT V max 1.1 m/s ??Max PG ?7 mmHg LVOT VTI ?? 0.27 m ?? Mean PG ?? 4 mmHg SV ? 86 ml ?Dim Index 0.86 SV index ?? 47 ml/m? ? ? CO ?6.1 l/min ?CI ?3.3 l/min/m? ? ? Mitral Valve: MVA ? 3.1 cm? ? ? MR TVI 1.49 m MV P 1/2 ??71 msec MV Mean G 5 mmHg Tricuspid Valve and estimated PA pressures: TAPSE 2.4 cm Pulmonic Valve: PV Vmax ??1.3 m/s PV meanG 4 mmHg PV VTI ?? 0.29 m PV AT ?119 msec . This study was interpreted by an [facility] accredited facility. ??Final ?? Procedure Note Mayito Pardo MD - 07/14/2023 ECHOCARDIOGRAM TANNER JAMES : 1945 78 years Study Date: 07/14/2023 2:46:41 PM Gender: F BP: 131/65 mmHg Height: 160.00 cm BSA: 1.82 m? ? ? Weight: 79.00 kg Tech: Referring MD: TYREE ARMIJO Site: [facility] Reading Location: [facility] OP Patient Location: Procedure: 2D, Spectral Doppler and Color Doppler. Indication for study: TAVR Cardiac Rhythm: Normal sinus.Study quality: Technically limited. Imaging limitations: This study was subject to imaging limitations due tobody habitus. Final Impressions: 1. Technically limited exam. 2. Normal left ventricular size, moderately increased wall thickness,normal global systolic function, calculated EF of 65 %. 3. The aortic valve is a normal functioning 26 mm Saima 3 bioprosthesisAVR, CoreValve bioprosthesis AVR and Medtronic Evolut FX, no stenosis andno regurgitation. 4. Moderately enlarged left atrium. 5. The mitral valve is sclerotic, moderate mitral regurgitation. 6. Severe MAC present. Chamber Sizes and Function Normal left ventricular size, moderately increased wall thickness, normalglobal systolic function, calculated EF of 65 %. Left atrial size ismoderately enlarged. Right ventricular cavity size is normal, globalsystolic RV function is normal. The right atrium is normal. Right atrialarea is 16 cm? ? ?. The pulmonary artery is of normal size and origin. Thesinus of Valsalva is not well visualized. The ascending aorta is normalsized. Valves, RV Pressures and Diastolic Function The aortic valve is a normal functioning 26 mm Saima 3 bioprosthesisreplacement, CoreValve bioprosthesis replacement and Medtronic Evolut FX,no stenosis and no regurgitation. The mitral valve is sclerotic, moderatemitral regurgitation. Severe mitral annular calcification is present.Indeterminate pattern of LV diastolic filling. The tricuspid valve is notwell visualized. Tricuspid regurgitation is regurgitation is not evident.The pulmonic valve is normal. Mild pulmonary regurgitation. Masses, Effusion, Shunts There is no pericardial effusion. The inferior vena cava is normal sized,respiratory size variation greater than 50%. No left to right shunting wasdetected by limited color flow Doppler interrogation of the interatrialseptum. MEASUREMENTS AND CALCULATIONS 2-D Measurements and LV Function: LVID (d) 3.8 cm Planimetered EF 65 % LVID (s) 2.5 cm LV FS% (2D) 34 % IVS (d) 1.3 cm LVOT diameter 2.0 cm LVPW (d) 1.2 cm HR 71 bpm Asc Ao 2.7 cm RA area 16 cm? ? ? LA 4.5 cm Diastology: Mitral Tissue Doppler E Peak 1.9 m/s e', Septum 0.05 m/s A Peak 1.0 m/s e', Lateral 0.05 m/s E/A 1.9 E/e' Average 36.08 DT 246 msec Aortic Valve: Vmax 1.3 m/s RADHA (V) 2.73 cm? ? ? VTI 0.32 m RADHA (I) 2.71 cm? ? ? LVOT V max 1.1 m/s Max PG 7 mmHg LVOT VTI 0.27 m Mean PG 4 mmHg SV 86 ml Dim Index 0.86 SV index 47 ml/m? ? ? CO 6.1 l/min CI 3.3 l/min/m? ? ? Mitral Valve: MVA 3.1 cm? ? ? MR TVI 1.49 m MV P 1/2 71 msec MV Mean G 5 mmHg Tricuspid Valve and estimated PA pressures: TAPSE 2.4 cm Pulmonic Valve: PV Vmax 1.3 m/s PV meanG 4 mmHg PV VTI 0.29 m PV AT 119 msec . This study was interpreted by an [facility] accredited facility. Final Tyree Armijo MD ECHO ORD * SCAN-CARDIAC STRIP (07/01/2023 4:46 AM LOT ATTENDANT) Scanner OTHER * SCAN-CARDIAC STRIP (06/30/2023 8:37 PM LOT ATTENDANT) Scanner OTHER * SCAN-CARDIAC STRIP (06/29/2023 10:53 PM LOT ATTENDANT) Scanner OTHER * SCAN-CARDIAC STRIP (06/29/2023 7:18 PM LOT ATTENDANT) Scanner OTHER * SCAN-CARDIAC STRIP (06/29/2023 10:43 AM LOT ATTENDANT) Scanner OTHER * SCAN CORRESP-IMAGING (06/29/2023 10:21 AM LOT ATTENDANT) Anatomical Region Laterality Modality Other Narrative 06/29/2023 10:21 AM LOT ATTENDANT Ordered by an unspecified provider. Other Clinical Staff OTHER * SCAN-CARDIAC STRIP (06/29/2023 2:02 AM LOT ATTENDANT) Scanner OTHER * PLATELET ORDER, 1 unit (06/28/2023 11:06 PM LOT ATTENDANT) QUANTITY 1 06/28/2023 11:06 PM LOT ATTENDANT [facility] [employer] LAB BLOOD BANK Blood BLOOD SPECIMEN / Unknown 06/28/2023 11:03 PM LOT ATTENDANT Joseline Lundberg MD BLOOD BANK [facility] [address] [place] [address], * SCAN-CARDIAC STRIP (06/28/2023 9:38 PM LOT ATTENDANT) Scanner OTHER * (ABNORMAL) RENAL FUNCTION PANEL (06/28/2023 7:47 AM LOT ATTENDANT) SODIUM 140 136 - 145 mmol/L 06/28/2023 8:46 AM [facility] POTASSIUM 4.1 3.5 - 5.1 mmol/L 06/28/2023 8:46 AM [facility] CHLORIDE 105 98 - 107 mmol/L 06/28/2023 8:46 AM [facility] CO2,TOTAL 27 22 - 29 mmol/L 06/28/2023 8:46 AM [facility] ANION GAP 8 5 - 18 06/28/2023 8:46 AM [facility] GLUCOSE 103(H) 70 - 99 mg/dL 06/28/2023 8:46 AM [facility] CALCIUM 8.7(L) 8.8 - 10.2 mg/dL 06/28/2023 8:46 AM [facility] BUN 35(H) 8 - 23 mg/dL 06/28/2023 8:46 AM [facility] CREATININE 1.24(H) 0.50 - 0.90 mg/dL 06/28/2023 8:46 AM [facility] BUN/CREAT RATIO 28(H) 10 - 20 8:46 AM [facility] eGFR 45(L) >90 mL/min/1.7 3m2 06/28/2023 8:46 AM [facility] Comment:As of 2021, eG FR is calculated by the CKD-EPI creatinine equation without race adjustment. ??eGFR can be influenced by muscle mass, exercise, and diet. ??The reported eGFR is an estimation only and is only applicable if the renal function is stable. PHOSPHORUS 3.0 2.5 - 4.5 mg/dL 06/28/2023 8:46 AM [facility] ALBUMIN 2.9(L) 4.0 - 4.9 g/dL 06/28/2023 8:46 AM [facility] Blood BLOOD SPECIMEN / Unknown Venipuncture / Unknown 06/28/2023 7:47 AM LOT ATTENDANT 06/28/2023 8:16 AM LOT ATTENDANT Nate To MD CHEMISTRY [facility] [address] [place] [address], * SCAN-CARDIAC STRIP (06/28/2023 7:18 AM LOT ATTENDANT) Scanner OTHER * SCAN-CARDIAC STRIP (06/28/2023 12:58 AM LOT ATTENDANT) Scanner OTHER * SCAN-CARDIAC STRIP (06/27/2023 6:48 PM LOT ATTENDANT) Scanner OTHER * SCAN-CARDIAC STRIP (06/27/2023 6:36 PM LOT ATTENDANT) Scanner OTHER * CT ANGIO ABDOMEN PELVIS (06/27/2023 4:32 PM LOT ATTENDANT) Anatomical Region Laterality Modality Abdomen, Pelvis Computed Tomogra phy 06/29/2023 9:58 AM LOT ATTENDANT Narrative 06/29/2023 9:58 AM LOT ATTENDANT For Patients: ??As a result of the Century Cures Act, medical imaging exams and procedure reports are released immediately into your electronic medical record. ??You may view this report before your referring provider. ??If you have questions, please contact your health care provider. 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 Technique: CTA of the abdomen and pelvis with 80 cc of Omnipaque 350 administered. Multiplanar reformats are included. Please note that all CT scans at this facility use dose modulation, iterative reconstruction, and/or weight-based dosing when appropriate to reduce radiation dose to as low as reasonably achievable. Comparison: CTA abdomen/pelvis from 05/06/2023. Findings: Vascular: Tortuous atherosclerotic abdominal aorta without aneurysm. Celiac artery is patent. Atherosclerotic plaque at the origin of the superior mesenteric artery with resulting mild stenosis. Superior mesenteric artery beyond this point is patent. Inferior mesenteric artery is patent. Minor atherosclerotic plaque at the origin of the right renal artery. Right renal artery is otherwise patent. Left-sided renal artery stump from nephrectomy. Atherosclerotic right common, external and internal iliac arteries without aneurysm or high-grade stenosis. Atherosclerotic left common, external and internal iliac arteries. Soft ulcerated plaque involving the left internal iliac artery near its origin with moderate stenosis of the lumen. Right common femoral artery exhibits mild focal stenosis at the origin from atherosclerotic plaque. There is no evidence of recurrent pseudoaneurysm. Left common femoral artery exhibits mild stenosis just proximal to the take-off of the profunda femoral artery from soft plaque. Visualized portions of the superficial and profunda femoral arteries on both sides are mildly narrowed from circumferential atherosclerotic plaque. Nonvascular: Imaged chest: Postop changes of total aortic valve replacement. The visualized portion of the prosthesis is well seated. Bibasilar pleural effusions and associated compressive atelectasis. Reticular opacities at the lung bases compatible with additional atelectasis or fibrosis. Abdomen/pelvis: Liver is normal in appearance without focal lesion. Cholecystectomy changes. Compensatory prominence of the common bile duct. Pancreas is within normal limits. Multiple calcified splenic granulomas. Right kidney is within normal limits. Left-sided nephrectomy changes. GI tract is normal in caliber without evidence of obstruction or associated inflammatory process. Multiple calcified fibroids within the uterus. No visible bladder abnormality. Within the right retroperitoneal space anterior to the psoas muscle and iliacus muscle there is an ill-defined soft tissue density mass most compatible with a hematoma. It measures up to 40 millimeters in AP dimension, 66 millimeters in TR dimension, and 120 millimeters in CC dimension. There is also contiguous ill-defined hematoma within the right inguinal canal/femoral compartment where it tracks along the right common femoral artery. Extensive subcutaneous soft tissue anasarca. Osseous structures: No acute fractures or other acute osseous abnormalities. Widespread osteoarthritis. Postop changes of L4-5 interbody/dorsal lateral spinal fusion. No evidence of hardware failure. Laminectomies at L3-4/L4-5. Impression: 1. 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 There is a large ill-defined hematoma within the right retroperitoneum and contiguous right femoral/inguinal compartments. No evidence of active arterial bleeding within this multi compartmental hematoma. 2. Widespread atherosclerotic changes throughout the imaged abdominal pelvic arterial vasculature without advanced stenosis involving the major branches. There is moderate stenosis of the left internal iliac artery origin. 3. Postop changes of total aortic valve replacement, new since the recent pre-surgical exam. No CT visualized complications. Please note that all CT scans at this facility use dose modulation, iterative reconstruction, and/or weight-based dosing when appropriate to reduce radiation dose to as low as reasonably achievable. Dictated by Jerel Smalls MD @ 06/29/2023 9:58:47 AM (Electronically Signed) Procedure Note Jerel Smalls MD - 06/29/2023 For Patients: As a result of the Cures Act, medical imagingexams and procedure reports are released immediately into your electronicmedical record. You may view this report before your referring provider.If you have questions, please contact your health care provider. Indication: History of retroperitoneal hematoma status post right common femoralartery pseudoaneurysm repair. Technique: CTA of the abdomen and pelvis with 80 cc of Omnipaque 350 administered.Multiplanar reformats are included. Please note that all CT scans at this facility use dose modulation,iterative reconstruction, and/or weight-based dosing when appropriate toreduce radiation dose to as low as reasonably achievable. Comparison: CTA abdomen/pelvis from 05/06/2023. Findings: Vascular: Tortuous atherosclerotic abdominal aorta without aneurysm.Celiac artery is patent. Atherosclerotic plaque at the origin of thesuperior mesenteric artery with resulting mild stenosis. Superiormesenteric artery beyond this point is patent. Inferior mesenteric arteryis patent. Minor atherosclerotic plaque at the origin of the right renalartery. Right renal artery is otherwise patent. Left-sided renal arterystump from nephrectomy. Atherosclerotic right common, external andinternal iliac arteries without aneurysm or high-grade stenosis.Atherosclerotic left common, external and internal iliac arteries. Softulcerated plaque involving the left internal iliac artery near its originwith moderate stenosis of the lumen. Right common femoral artery exhibitsmild focal stenosis at the origin from atherosclerotic plaque. There is noevidence of recurrent pseudoaneurysm. Left common femoral artery exhibitsmild stenosis just proximal to the take-off of the profunda femoral arteryfrom soft plaque. Visualized portions of the superficial and profundafemoral arteries on both sides are mildly narrowed from circumferentialatherosclerotic plaque. Nonvascular: Imaged chest: Postop changes of total aortic valve replacement. Thevisualized portion of the prosthesis is well seated. Bibasilar pleuraleffusions and associated compressive atelectasis. Reticular opacities atthe lung bases compatible with additional atelectasis or fibrosis. Abdomen/pelvis: Liver is normal in appearance without focal lesion.Cholecystectomy changes. Compensatory prominence of the common bile duct.Pancreas is within normal limits. Multiple calcified splenic granulomas.Right kidney is within normal limits. Left-sided nephrectomy changes. GItract is normal in caliber without evidence of obstruction or associatedinflammatory process. Multiple calcified fibroids within the uterus. Novisible bladder abnormality. Within the right retroperitoneal spaceanterior to the psoas muscle and iliacus muscle there is an ill-definedsoft tissue density mass most compatible with a hematoma. It measures upto 40 millimeters in AP dimension, 66 millimeters in TR dimension, and 120millimeters in CC dimension. There is also contiguous ill-defined hematomawithin the right inguinal canal/femoral compartment where it tracks alongthe right common femoral artery. Extensive subcutaneous soft tissueanasarca. Osseous structures: No acute fractures or other acute osseousabnormalities. Widespread osteoarthritis. Postop changes of L4-5interbody/dorsal lateral spinal fusion. No evidence of hardware failure.Laminectomies at L3-4/L4-5. Impression: 1. Provided history of right common femoral artery pseudoaneurysm repair,without evidence of residual or recurrent pseudoaneurysm arising from theright common femoral artery. There is a large ill-defined hematoma withinthe right retroperitoneum and contiguous right femoral/inguinalcompartments. No evidence of active arterial bleeding within this multicompartmental hematoma. 2. Widespread atherosclerotic changes throughout the imaged abdominalpelvic arterial vasculature without advanced stenosis involving the majorbranches. There is moderate stenosis of the left internal iliac arteryorigin. 3. Postop changes of total aortic valve replacement, new since the recentpre- surgical exam. No CT visualized complications. Please note that all CT scans at this facility use dose modulation,iterative reconstruction, and/or weight-based dosing when appropriate toreduce radiation dose to as low as reasonably achievable. Dictated by Jerel Smalls MD @ 06/29/2023 9:58:47 AM (Electronically Signed) Rosetta SIMONS CT * (ABNORMAL) HEMOGLOBIN (06/27/2023 2:43 PM LOT ATTENDANT) Only the most recent of6 resultswithin the time period is included. Pathologist [facility] HEMOGLOBIN 9.1(L) 12.0 - 16.0 g/dL 06/27/2023 2:55 PM LOT ATTENDANT [facility] MCV 101(H) 80 - 100 fL 06/27/2023 2:55 PM LOT ATTENDANT [facility] Blood BLOOD SPECIMEN / Unknown Butterfly / Unknown 06/27/2023 2:43 PM LOT ATTENDANT 06/27/2023 2:50 PM LOT ATTENDANT Nate To MD HEMATOLOGY Performing Organization Address [facility] Co de Phone Number [facility] [address] [address], [place] * POTASSIUM (06/27/2023 2:43 PM LOT ATTENDANT) Only the most recent of6 resultswithin the time period is included. [facility] POTASSIUM 4.6 3.5 - 5.1 mmol/L 06/27/2023 3:24 PM LOT ATTENDANT [facility] Blood BLOOD SPECIMEN / Unknown Butterfly / Unknown 06/27/2023 2:43 PM LOT ATTENDANT 06/27/2023 3:08 PM LOT ATTENDANT Samia Jimenez RN CHEMISTRY Performing Organization Address City/[facility]/ZIP Co de Phone Number [facility] [address] [address], [place] * (ABNORMAL) Creatinine TODAY (06/27/2023 2:43 PM LOT ATTENDANT) Only the most recent of2 resultswithin the time period is included. Pathologist [facility] eGFR 37(L) >90 mL/min/1.7 3m2 06/27/2023 3:24 PM LOT ATTENDANT [facility] TRAL LABORATORY Comment:As of 2021, eG FR is calculated by the CKD-EPI creatinine equation without race adjustment. ??eGFR can be influenced by muscle mass, exercise, and diet. ??The reported eGFR is an estimation only and is only applicable if the renal function is stable. CREATININE 1.48(H) 0.50 - 0.90 mg/dL 06/27/2023 3:24 PM LOT ATTENDANT [facility] Blood BLOOD SPECIMEN / Unknown Butterfly / Unknown 06/27/2023 2:43 PM LOT ATTENDANT 06/27/2023 3:08 PM LOT ATTENDANT Nate To MD CHEMISTRY Performing Organization Address City/[facility]/ZIP Co de Phone Number [facility] [address] [place] [address], [place] * SCAN-CARDIAC STRIP (06/27/2023 7:28 AM LOT ATTENDANT) Scanner OTHER * SCAN-CARDIAC STRIP (06/26/2023 4:49 PM LOT ATTENDANT) Scanner OTHER * SCAN-CARDIAC STRIP (06/26/2023 6:53 AM LOT ATTENDANT) Scanner OTHER * SCAN-CARDIAC STRIP (06/25/2023 8:13 PM LOT ATTENDANT) Scanner OTHER * TRANSFUSE RBC (NURSE COMMUNICATION ORDER) (06/25/2023 4:16 PM LOT ATTENDANT) Blood BLOOD SPECIMEN / Unknown Nate To MD NURSING BLOOD B ANK * RBC W/O TYPE & SCREEN (06/25/2023 9:16 AM LOT ATTENDANT) QUANTITY 1 06/25/2023 9:1 6 AM LOT ATTENDANT [facility] Blood BLOOD SPECIMEN / Unknown 06/25/2023 9:13 AM LOT ATTENDANT Nate To MD BLOOD BANK Performing Organization Address City/[facility]/ZIP Co de Phone Number [facility] [address] [place] [address], [place] [phone] * RED BLOOD CELLS EA UNIT (06/25/2023 9:13 AM LOT ATTENDANT) Only the most recent of3 resultswithin the time period is included. CROSSMATCH Compatible Compatible [employer] LAB BLOOD BANK PRODUCT BLOOD TYPE A Rh Positive [employer] LAB BLOOD BANK PRODUCT ID NUMBER [id number] [facility] LAB BLOOD BANK PRODUCT STATUS Transfused [facility] Seva CoffeeCENTRAL LAB BLOOD BANK PRODUCT DESCRIPTION RBC -1 LR [facility] [employer] LAB BLOOD BANK PRODUCT CODE [id number] [facility] BLOOD BANK ISSUE DATE/TIME 06/25/23 13:48 [employer] BLOOD BANK Nate To MD BLOOD BANK [facility] BLOOD BANK [address] [place] [address], * SCAN-CARDIAC STRIP (06/25/2023 5:53 AM LOT ATTENDANT) Scanner OTHER * SCAN-CARDIAC STRIP (06/25/2023 12:00 AM LOT ATTENDANT) Scanner OTHER * SCAN-CARDIAC STRIP (06/24/2023 11:15 PM LOT ATTENDANT) Scanner OTHER * SCAN-CARDIAC STRIP (06/24/2023 7:05 PM LOT ATTENDANT) Scanner OTHER * SCAN-CARDIAC STRIP (06/24/2023 3:43 PM LOT ATTENDANT) Scanner OTHER * SCAN-CARDIAC STRIP (06/24/2023 8:21 AM LOT ATTENDANT) Scanner OTHER * TSH FOR ADD ON (06/24/2023 7:37 AM LOT ATTENDANT) TSH 1.38 0.27 - 4.20 uIU/mL 06/24/2023 9:52 AM LOT ATTENDANT [facility] Blood BLOOD SPECIMEN / Unknown Venipuncture / Unknown 06/24/2023 7:37 AM LOT ATTENDANT 06/24/2023 7:43 AM LOT ATTENDANT Narrative [facility] - 06/24/2023 9:52 AM LOT ATTENDANT In Adults, TSH values between 5.00 and 10.00 uIU/ml do not necessarily indicate the presence of Hypothyroidism. Correlation with clinical findings such as presence of goiter and/or Thyroperoxidase (TPO) Antibody may be helpful. For more information please refer to DEANDRE 2004; 291: 228-238. Nate To MD CHEMISTRY Performing Organization Address City/[facility] Co de Phone Number [facility] [address] [place] [address], [place] * (ABNORMAL) Platelets FOR ADD ON (06/24/2023 7:37 AM LOT ATTENDANT) PLATELET COUNT 90(L) 140 - 440 thou/cu mm 06/24/2023 9:43 AM LOT ATTENDANT [facility] TRAL LABORATORY MPV 12.3(H) 6.5 - 11.0 fL 06/24/2023 9:43 AM LOT ATTENDANT [facility] TRAL LABORATORY Blood BLOOD SPECIMEN / Unknown Venipuncture / Unknown 06/24/2023 7:37 AM LOT ATTENDANT 06/24/2023 7:43 AM LOT ATTENDANT Nate To MD [facility] [address] [place] [address], [place] * Phosphorus FOR ADD ON (06/24/2023 7:37 AM LOT ATTENDANT) PHOSPHORUS 3.4 2.5 - 4.5 mg/dL 06/24/2023 9:52 AM LOT ATTENDANT [facility] RAL LABORATORY Blood BLOOD SPECIMEN / Unknown Venipuncture / Unknown 06/24/2023 7:37 AM LOT ATTENDANT 06/24/2023 7:43 AM LOT ATTENDANT Nate To MD CHEMISTRY Performing Organization Address [facility] de Phone Number [facility] [address] [place] [address], * Magnesium FOR ADD ON (06/24/2023 7:37 AM LOT ATTENDANT) Only the most recent of5 resultswithin the time period is included. MAGNESIUM 2.4 1.6 - 2.4 mg/dL 06/24/2023 9:52 AM LOT ATTENDANT [facility] Blood BLOOD SPECIMEN / Unknown Venipuncture / Unknown 06/24/2023 7:37 AM LOT ATTENDANT 06/24/2023 7:43 AM LOT ATTENDANT Nate To MD CHEMISTRY Performing Organization Address [facility] Phone Number [facility] [address] [place] [address], * (ABNORMAL) Calcium FOR ADD ON (06/24/2023 7:37 AM LOT ATTENDANT) CALCIUM 8.4(L) 8.8 - 10.2 mg/dL 06/24/2023 9:55 AM LOT ATTENDANT [facility] Blood BLOOD SPECIMEN / Unknown Venipuncture / Unknown 06/24/2023 7:37 AM LOT ATTENDANT 06/24/2023 7:43 AM LOT ATTENDANT Nate To MD CHEMISTRY Performing Organization Address [facility] Co de Phone Number [facility] [address] [place] [address], [place] * SCAN-CARDIAC STRIP (06/24/2023 12:33 AM LOT ATTENDANT) Scanner OTHER * SCAN-CARDIAC STRIP (06/23/2023 7:35 PM LOT ATTENDANT) Scanner OTHER * SCAN-CARDIAC STRIP (06/23/2023 3:57 PM LOT ATTENDANT) Scanner OTHER * HCHG TUBE PR1, HCHG INSTRUMENT DISP PR10, HCHG STYLET PR1 (06/23/2023 10:22 AM LOT ATTENDANT) Narrative Elvis Steen CRNA - 06/23/2023 10:22 AM LOT ATTENDANT Elvis Steen CRNA ? 06/23/2023 10:23 AM Procedure: ETT Patient location during procedure: OR ETT Properties Mask Ventilation: easy Final Technique: video laryngoscopy Type: straight Location: oral Cuffed: yes Tube Size: 7.0 mm Stylet: yes Laryngoscope Blade: Glidescope Blade Size: 3 Cormack-Lehane Grade View: 1 Insertion Attempts: 1 Placement Verification: auscultation, end tidal CO2 and symmetrical chest wall movement Assessment: pharynx clear, atraumatic and dentition unchanged Secured at: 20 Measured From: lips Difficulty: 0 (not difficult) Difficulty Comment: limited neck mobility Notes: HX of RA, elective [place] d/t to overal stiffness and reduced ROM. Elvis Steen CRNA ANESTHESIA PX NO TE ORDERABLES * SCAN-CARDIAC STRIP (06/23/2023 7:35 AM LOT ATTENDANT) Scanner OTHER * (ABNORMAL) PLATELET ESTIMATE (06/23/2023 6:23 AM LOT ATTENDANT) Only the most recent of3 resultswithin the time period is included. Pathologist [facility] PLATELET ESTIMATE Decreased (A) Adequate, No estimate 06/23/2023 8:17 AM LOT ATTENDANT [facility] TR[facility] LABORAT[facility] Blood BLOOD SPECIMEN / Unknown Butterfly / Unknown 06/23/2023 6:23 AM LOT ATTENDANT 06/23/2023 6:58 AM LOT ATTENDANT Claudia SIMONS [facility] [address] [place] [address], * Type and Screen (06/23/2023 6:23 AM LOT ATTENDANT) Only the most recent of3 resultswithin the time period is included. Pathologist [facility] ABORH A Rh Positive 06/23/2023 8:07 AM LOT ATTENDANT [facility] LAB BLOOD BANK ANTIBODY SCREEN Negative Negative 06/23/2023 8:07 AM [facility] SPECIMEN EXPIRATION DATE/TIME 06/26/23 23:59 06/23/2023 8:07 AM [facility] Blood BLOOD SPECIMEN / Unknown Butterfly / Unknown 06/23/2023 6:23 AM LOT ATTENDANT 06/23/2023 6:58 AM LOT ATTENDANT Claudia SIMONS BLOOD BANK [facility] [address] [place] [address], * (ABNORMAL) CBC with Platelet no Diff (06/23/2023 6:23 AM LOT ATTENDANT) Only the most recent of5 resultswithin the time period is included. WHITE BLOOD COUNT 7.6 4.5 - 11.0 thou/cu mm 06/23/2023 8:17 AM [facility] TRAL LABORATORY RED BLOOD COUNT 2.47(L) 4.00 - 5.20 mil/cu mm 06/23/2023 8:17 AM [facility] TRAL LABORATORY HEMOGLOBIN 7.9(L) 12.0 - 16.0 g/dL 06/23/2023 8:17 AM [facility] TRAL LABORATORY HEMATOCRIT 25.7(L) 33.0 - 51.0 % 06/23/2023 8:17 AM LOT ATTENDANT [facility] TRAL LABORATORY MCV 104(H) 80 - 100 fL 06/23/2023 8:17 AM [facility] TRAL LABORATORY MCH 32.0 26.0 - 34.0 pg 06/23/2023 8:17 AM [facility] TRAL LABORATORY MCHC 30.7(L) 32.0 - 36.0 g/dL 06/23/2023 8:17 AM [facility] TRAL LABORATORY RDW 18.5(H) 11.5 - 15.5 % 06/23/2023 8:17 AM [facility] TRAL LABORATORY PLATELET COUNT 82(L) 140 - 440 thou/cu mm 06/23/2023 8:17 AM [facility] TRAL LABORATORY MPV 12.3(H) 6.5 - 11.0 fL 06/23/2023 8:17 AM [facility] TRAL LABORATORY NRBC 0.3 % 06/23/2023 8:17 AM [facility] TRAL LABORATORY ABS NRBC 0.0 thou /cu mm 06/23/2023 8:17 AM [facility] LAB[facility] Blood BLOOD SPECIMEN / Unknown Butterfly / Unknown 06/23/2023 6:23 AM LOT ATTENDANT 06/23/2023 6:[address] [facility] Claudia SIMONS HEMATOLOGY [facility] [address] [place] [address], * (ABNORMAL) Basic Metabolic Panel (06/23/2023 6:23 AM LOT ATTENDANT) Only the most recent of5 resultswithin the time period is included. SODIUM 145 136 - 145 mmol/L 06/23/2023 7:57 AM [facility] TRAL LABORATORY POTASSIUM 4.5 3.5 - 5.1 mmol/L 06/23/2023 7:57 AM [facility] TRAL LABORATORY CHLORIDE 110(H) 98 - 107 mmol/L 06/23/2023 7:57 AM [facility] TRAL LABORATORY CO2,TOTAL 26 22 - 29 mmol/L 06/23/2023 7:57 AM [facility] TRAL LABORATORY ANION GAP 9 5 - 18 06/23/2023 7:57 AM [facility] TRAL LABORATORY GLUCOSE 83 70 - 99 mg/dL 06/23/2023 7:57 AM [facility] TRAL LABORATORY CALCIUM 8.5(L) 8.8 - 10.2 mg/dL 06/23/2023 7:57 AM [facility] TRAL LABORATORY BUN 29(H) 8 - 23 mg/dL 06/23/2023 7:57 AM LOT ATTENDANT [facility] TRAL LABORATORY CREATININE 1.20(H) 0.50 - 0.90 mg/dL 06/23/2023 7:57 AM LOT ATTENDANT [facility] TRAL LABORATORY BUN/CREAT RATIO 24(H) 10 - 20 7:57 AM LOT ATTENDANT [facility] TRAL LABORATORY eGFR 47(L) >90 mL/min/1.7 3m2 06/23/2023 7:57 AM LOT ATTENDANT [facility] TRAL LABORATORY Comment:As of 2021, eG FR is calculated by the CKD-EPI creatinine equation without race adjustment. ??eGFR can be influenced by muscle mass, exercise, and diet. ??The reported eGFR is an estimation only and is only applicable if the renal function is stable. Blood BLOOD SPECIMEN / Unknown Butterfly / Unknown 06/23/2023 6:23 AM LOT ATTENDANT 06/23/2023 6:58 AM LOT ATTENDANT Claudia SIMONS [facility] [address] [place] [address], * SCAN-CARDIAC STRIP (06/22/2023 11:17 PM LOT ATTENDANT) Scanner OTHER * SCAN-CARDIAC STRIP (06/22/2023 9:58 PM LOT ATTENDANT) Scanner OTHER * SCAN-CARDIAC STRIP (06/22/2023 3:46 PM LOT ATTENDANT) Scanner OTHER * SCAN-CARDIAC STRIP (06/22/2023 8:28 AM LOT ATTENDANT) Scanner OTHER * US ARTERIAL LOWER EXTREMITY PSEUDOANEURYSM RIGHT (06/22/2023 1:45 AM LOT ATTENDANT) Anatomical Region Laterality Modality LEG R Ultrasound 06/22/2023 8:49 AM LOT ATTENDANT Narrative 06/22/2023 8:49 AM LOT ATTENDANT For Patients: ??As a result of the Cures Act, medical imaging exams and procedure reports are released immediately into your electronic medical record. ??You may view this report before your referring provider. ??If you have questions, please contact your health care provider. Indication: Groin pain and swelling after recent procedure. Technique: Duplex ultrasound examination of the right groin performed with menon scale, color Doppler imaging, and spectral analysis. Ultrasound-guided compression was performed. Comparison: None available. Findings: On spectral and color doppler imaging there is a multiphasic waveform within the common femoral and proximal superficial femoral arteries. Elevated velocities are noted at the right external iliac and right common femoral arteries of 238 centimeters/second and 192 centimeters/second respectively. The common femoral vein where imaged is patent on color and spectral analysis. No definite AV fistula. Surrounding soft tissues demonstrate hematoma measuring 2.2 x 2.4 x 3.1 centimeters. Pseudoaneurysm measuring 2.2 x 1.7 x 1.7 centimeters. There is a short neck with a with the measuring 5 millimeters. Ultrasound-guided compression was performed for 10 minutes with inability to compress. Impression: Pseudoaneurysm in the right groin measuring 2.2 x 1.7 x 1.7 centimeters with a short neck measuring 5 millimeters associated hematoma. Unsuccessful ultrasound-guided compression with maintained flow within the pseudoaneurysm. Given the short neck and high location in the common femoral artery this pseudoaneurysm would not be amenable to percutaneous thrombin injection. Vascular surgery consultation regarding operative repair vs close interval follow up. Elevated velocities of the right external iliac artery and right common femoral artery. Attention on follow-up. Dictated by Robert Roth MD @ 06/22/2023 8:49:24 AM (Electronically Signed) Procedure Note Robert Roth MD - 06/22/2023 For Patients: As a result of the Cures Act, medical imagingexams and procedure reports are released immediately into your electronicmedical record. You may view this report before your referring provider.If you have questions, please contact your health care provider. Indication: Groin pain and swelling after recent procedure. Technique: Duplex ultrasound examination of the right groin performed with greyscale, color Doppler imaging, and spectral analysis. Ultrasound-guidedcompression was performed. Comparison: None available. Findings: On spectral and color doppler imaging there is a multiphasic waveformwithin the common femoral and proximal superficial femoral arteries.Elevated velocities are noted at the right external iliac and right commonfemoral arteries of 238 centimeters/second and 192 centimeters/secondrespectively. The common femoral vein where imaged is patent on color and spectralanalysis. No definite AV fistula. Surrounding soft tissues demonstrate hematoma measuring 2.2 x 2.4 x 3.1centimeters. Pseudoaneurysm measuring 2.2 x 1.7 x 1.7 centimeters. Thereis a short neck with a with the measuring 5 millimeters. Ultrasound-guided compression was performed for 10 minutes with inabilityto compress. Impression: Pseudoaneurysm in the right groin measuring 2.2 x 1.7 x 1.7 centimeterswith a short neck measuring 5 millimeters associated hematoma.Unsuccessful ultrasound-guided compression with maintained flow within thepseudoaneurysm. Given the short neck and high location in the commonfemoral artery this pseudoaneurysm would not be amenable to percutaneousthrombin injection. Vascular surgery consultation regarding operativerepair vs close interval follow up. Elevated velocities of the right external iliac artery and right commonfemoral artery. Attention on follow-up. Dictated by Robert Roth MD @ 06/22/2023 8:49:24 AM (Electronically Signed) Jen Martinez DO [place] * SCAN-CARDIAC STRIP (06/21/2023 11:05 PM LOT ATTENDANT) Scanner OTHER * SCAN-CARDIAC STRIP (06/21/2023 6:43 PM LOT ATTENDANT) Scanner OTHER * SCAN-CARDIAC STRIP (06/21/2023 12:00 AM LOT ATTENDANT) Narrative 06/21/2023 12:00 AM LOT ATTENDANT Ordered by an unspecified provider. Other Clinical Staff OTHER * SCAN-CARDIAC STRIP (06/18/2023 10:09 AM LOT ATTENDANT) Scanner OTHER * SCAN-CARDIAC STRIP (06/17/2023 11:55 PM LOT ATTENDANT) Scanner OTHER * SCAN-CARDIAC STRIP (06/17/2023 4:46 PM LOT ATTENDANT) Scanner OTHER * SCAN-CARDIAC STRIP (06/17/2023 9:01 AM LOT ATTENDANT) Scanner OTHER * SCAN-CARDIAC STRIP (06/17/2023 7:12 AM LOT ATTENDANT) Scanner OTHER * EKG - In AM (06/17/2023 5:37 AM LOT ATTENDANT) Only the most recent of3 resultswithin the time period is included. Interpretation Normal sinus rhythm Left ventricular hypertrophy with repolarization abnormality ( R in aVL ) Abnormal ECG When compared with ECG of 16-JUN-2023 15:24, (Unconfirmed) No significant change was found BEYOND NOW Ventricular Rate 70 BPM BEYOND NOW Atrial Rate 70 BPM BEYOND NOW P-R Interval 136 ms BEYOND NOW QRS Duration 80 ms BEYOND NOW QT 420 ms BEYOND NOW QTc 453 ms BEYOND NOW P Shandon -24 degrees BEYOND NOW R Shandon degrees BEYOND NOW T Shandon 144 degrees BEYOND NOW 06/17/2023 5:37 AM LOT ATTENDANT 06/18/2023 9:31 AM LOT ATTENDANT Toni CARTAGENA EKG ORD BEYOND NOW [place], [place] * SCAN-CARDIAC STRIP (06/16/2023 11:36 PM LOT ATTENDANT) Scanner OTHER * SCAN-CARDIAC STRIP (06/16/2023 11:34 PM LOT ATTENDANT) Scanner OTHER * SCAN-CARDIAC STRIP (06/16/2023 1:53 PM LOT ATTENDANT) Scanner OTHER * ECHO TTE LIMITED W CONTRAST W COLOR (06/16/2023 11:49 AM LOT ATTENDANT) AORTIC VALVE MEAN PG 3 mmHg EJECTION FRACTION 66 % LVEDD 3.2 cm EJECTION FRACTION 70 - 75% Anatomical Region Laterality Modality Ultrasound 06/16/2023 9:59 AM LOT ATTENDANT Narrative 06/16/2023 1:54 PM LOT ATTENDANT ECHOCARDIOGRAM TANNER JAMES ?Accession#: ?? [id number] : ?1945 78 years Study Date: ?? 06/16/2023 9:59:09 AM Gender: F ? BP: ? 131/83 mmHg Height: 160.00 cm ? BSA: ?1.71 m? ? ? Weight: 68.00 kg ?Tech: ? AH ?Referring MD: REHAN ALARCON Site: ? [facility] Reading Location: [facility] Patient Location: Procedure: Limited 2D. Indication for study: Immediate post TAVR echocardiogram Cardiac Rhythm: Regular.Study quality: Technically limited. Final Impressions: Limited Echocardiogram performed 1. Technically limited exam. 2. Normal LV size, estimated EF of 70 - 75%. 3. S/P 26 mm Evolut FX bioprosthetic AVR, no stenosis, no regurgitation. 4. Severe mitral annular calcification. 5. The mitral valve is sclerotic, moderate regurgitation, mild-moderate stenosis (MG 5 mmHg @ HR 70 bpm). 6. No pericardial effusion. 7. Echo contrast was administered to enhance visualization of all left ventricular segments. Comparison Compared to prior exam of 04/29/2023: - S/P AVR Chamber Sizes and Function Normal left ventricular size, normal global systolic function with an estimated EF of 70 - 75%. Valves, RV Pressures and Diastolic Function The aortic valve is functioning 26 mm Evolut FX. The mitral valve is sclerotic, moderate mitral regurgitation. The mitral valve peak velocity is 1.51 m/s and the mean gradient is 5.0 mmHg. Severe mitral annular calcification is present. Masses, Effusion, Shunts There is no pericardial effusion. MEASUREMENTS AND CALCULATIONS 2-D Measurements and LV Function: LVID (d) 3.2 cm LV FS% (2D) 25 % LVID (s) 2.4 cm HR ?71 bpm IVS (d) ??1.1 cm LVPW (d) 1.2 cm Aortic Valve: Vmax ? 1.1 m/s Max PG ?5 mmHg VTI ?0.23 m ??Mean PG ?? 3 mmHg LVOT V max 0.9 m/s Dim Index 0.83 LVOT VTI ?? 0.19 m Mitral Valve: MV Mean G 5 mmHg Contrast documentation: 2 ml diluted Definity, lot #[id number], [facility]# [id number] was administered peripherally to enhance visualization of all left ventricular segments. . Report modified by Swapnil Vincent MD on 06/16/2023 1:55:14 PM. This study was interpreted by an [facility] accredited facility. ??Final (Updated) ?? Procedure Note Swapnil Vincent MD - 06/16/2023 ECHOCARDIOGRAM TANNER JAMES : 1945 78 years Study Date: 06/16/2023 9:59:09 AM Gender: F BP: 131/83 mmHg Height: 160.00 cm BSA: 1.71 m? ? ? Weight: 68.00 kg Tech: Referring MD: REHAN ALARCON Site: [facility] Reading Location: [facility] Patient Location: Procedure: Limited 2D. Indication for study: Immediate post TAVR echocardiogram Cardiac Rhythm: Regular.Study quality: Technically limited. Final Impressions: Limited Echocardiogram performed 1. Technically limited exam. 2. Normal LV size, estimated EF of 70 - 75%. 3. S/P 26 mm Evolut FX bioprosthetic AVR, no stenosis, noregurgitation. 4. Severe mitral annular calcification. 5. The mitral valve is sclerotic, moderate regurgitation, mild-moderatestenosis (MG 5 mmHg @ HR 70 bpm). 6. No pericardial effusion. 7. Echo contrast was administered to enhance visualization of all leftventricular segments. Comparison Compared to prior exam of 04/29/2023: - S/P AVR Chamber Sizes and Function Normal left ventricular size, normal global systolic function with anestimated EF of 70 - 75%. Valves, RV Pressures and Diastolic Function The aortic valve is functioning 26 mm Evolut FX. The mitral valve issclerotic, moderate mitral regurgitation. The mitral valve peak velocityis 1.51 m/s and the mean gradient is 5.0 mmHg. Severe mitral annularcalcification is present. Masses, Effusion, Shunts There is no pericardial effusion. MEASUREMENTS AND CALCULATIONS 2-D Measurements and LV Function: LVID (d) 3.2 cm LV FS% (2D) 25 % LVID (s) 2.4 cm HR 71 bpm IVS (d) 1.1 cm LVPW (d) 1.2 cm Aortic Valve: Vmax 1.1 m/s Max PG 5 mmHg VTI 0.23 m Mean PG 3 mmHg LVOT V max 0.9 m/s Dim Index 0.83 LVOT VTI 0.19 m Mitral Valve: MV Mean G 5 mmHg Contrast documentation: 2 ml diluted Definity, lot #[id number], [facility]#[id number] was administered peripherally to enhance visualization of allleft ventricular segments. . Report modified by Swapnil Vincent MD on 06/16/2023 1:55:14 PM. This study was interpreted by an [facility] accredited facility. Final (Updated) Rehan Alarcon [employer] ECHO ORD * (ABNORMAL) ACTIVATED CLOTTING TIME [id number] ACT (06/16/2023 8:50 AM LOT ATTENDANT) ACTIVATED CLOTTING TIME, POCT 247(H) 74 - 125 sec 06/17/2023 1:11 AM LOT ATTENDANT [facility] Blood BLOOD SPECIMEN / Unknown 06/16/2023 8:50 AM LOT ATTENDANT 06/17/2023 1:11 AM LOT ATTENDANT Rey Rousseau MD HEMATOLOGY [facility] [address] [place] [address], [place] * CVL TAVR (06/16/2023 8:31 AM LOT ATTENDANT) Anatomical Region Laterality Modality X-Ray Angiograph y 06/16/2023 8:31 AM LOT ATTENDANT Narrative Procedure Note Rey Rousseau MD - 06/16/2023 9:45 AM CST DATE OF SERVICE: 06/16/2023 PROCEDURE: Transcatheter aortic valve implantation. PREOPERATIVE DIAGNOSIS: Severe aortic stenosis POSTOPERATIVE DIAGNOSIS: s/p TAVR OPERATORS: Rey Rousseau MD, PhD García Cullen, [facility] Arlene Lowe PA-C, [facility] Toni Osuna MD DESCRIPTION The risks, benefits and alternatives to the procedure were discussed withthe patient and family. Informed consent was obtained from the patientprior to proceeding. The patient was brought to the hybrid operating roomand sedated with conscious sedation. The chest, neck and groins wereprepped and draped in the usual sterile fashion. Ultrasound-guided accesswas performed for placing sheath in the left common femoral vein and bothfemoral arteries. Through the right femoral artery, 2 ProGlide sutureswere placed. We then crossed the aortic valve in standard fashion with anAL1 catheter and a straight wire. The mean gradient was 64.6 mmHg,consistent with a diagnosis of severe aortic valve stenosis. A temporarypacemaker was advanced into the right ventricle with active fixation usedto obtain adequate thresholds. We then exchanged for an Evolut FX 26mmwhich was deployed in a single deployment. Post-dilatation was performedwith a True Balloon 22mm. There was no evidence of significant AR. Themean gradient fell to 2.2mmHg. The arterial access sites were closedusing the ProGlide sutures and on Angioseal 6-Fr. The pacemaker wasremoved as there was no conduction delay. There were no complications.The patient was transferred to anesthesia recovery unit in hemodynamicallystable condition. Rey Rousseau MD, PhD Permit Technician [facility] [address], [address] [place] [address] O: [phone] F: [phone] Transcriptions Rey Rousseau MD - 06/16/2023 10:05 AM CST [facility] Cardiac Catheterization Report Name: TANNER JAMES Event Date: 06/16/2023 08:31 Excellian ID #: [id number] CASSIUS #: [id number] Diagnostic Physician: REY ROUSSEAU [facility] Interventional Physician: REY ROUSSEAU [facility] Referring Physician: Date: 1945 Gender: Female Age: 78 Summary/Conclusions PRESENTATION / INDICATIONS * Severe aortic valve stenosis VASCULAR ACCESS * Using ultrasound guidance and a percutaneous technique, the right commonfemoral artery was accessed. Ultrasound was used to confirm vesselpatency, localizing needle into the lumen of the vessel. An image wassaved for the medical record. * Using ultrasound guidance and a percutaneous technique, the left commonfemoral artery was accessed. Ultrasound was used to confirm vesselpatency, localizing needle into the lumen of the vessel. An image wassaved for the medical record. * Using ultrasound guidance and a percutaneous technique, the left femoralvein was accessed. Ultrasound was used to confirm vessel patency,localizing needle into the lumen of the vessel. An image was saved for themedical record. VALVULAR AND STRUCTURAL HEART INTERVENTION * Transcatheter aortic valve replacement (TAVR) was performed with EvolutFX 26mm. Post BAV with True Balloon 22mm. * The mean gradient was reduced from 64.6 to 2.2 mmHg SPECIAL PROCEDURES * Right femoral arteriotomy was successfully closed utilizing a closuredevice * Left femoral arteriotomy was successfully closed utilizing a closuredevice SPECIAL EQUIPMENT * A temporary pacemaker was inserted during the procedure. RECOMMENDATIONS & PLAN * Medical Rx * Follow up with primary physician * Follow up with solutions market consultant Consent & [place] Protocol The risks, benefits, and alternatives of the procedure were discussed withthe patient and written informed consent was obtained. [place] protocol was followed. TIME OUT conducted just prior tostarting procedure confirmed patient identity, site/side, procedure,patient position, and availability of correct equipment and implants (ifapplicable). Staff Name Title Rey Rousseau Permit Technician Toni Osuna Fellow Trinidad Raman RN Nurse Astrid Day RN, Chad CVT Scrub Ralph Vizcaino RT(R) Monitor Arlene Lowe Physician Hair Assistant Kendell Lincoln Fellow Procedures ? Ultrasound Guided Vascular Access ? Ultrasound Guided Vascular Access ? Aortic Root Angiogram ? Left Heart Cath No Ventriculogram ? Temporary Pacemaker ? TAVR Transfemoral ? Valvuloplasty Aortic ? Femoral Closure Device ? Femoral Closure Device ? Femoral Closure Device ? Femoral Closure Device ? Femoral Closure Device Hemodynamics State: Baseline Pressures (mmHg) Site Systolic Diastolic End Diastolic A Wave V Wave Mean AO 133 58 86 LV 198 4 21 Valves Aortic Valve Mean Gradient: 64.57 State: Phase 2 Pressures (mmHg) Site Systolic Diastolic End Diastolic A Wave V Wave Mean AO 140 52 84 LV 140 8 31 Valves Aortic Valve Mean Gradient: 2.2 Procedure Details Estimated Blood Loss: < 30 ml Specimen Collected: None Level of Sedation Achieved: Moderate Procedure Start: 08:31 Procedure End: 09:35 Procedure Time: 64 min Fluoroscopy Time: 14.3 min Cumulative Air Kerma: 475 mGy DAP: 4074 uGy/M2 Contrast: Omnipaque (low-osmolar), 55 ml Physiologic Data Weight: 68.9 kg BSA: 1.72 m2 Vascular Access Time Access Sheath Size 08:35 Left Femoral Vein, sheath inserted. 08:35 Left Femoral Artery, sheath inserted 08:40 Right Femoral Artery, sheath inserted Medications Ordered and Administered Start Time Stop Time Medication Dose Units Route Ordered By Given By 08:21 Fentanyl 50 mcg IV Rey Rousseau Shawna RN 08:22 Versed 1 mg IV Rey Rousseau Shawna RN 08:28 Versed 1 mg IV Rey Rousseau Shawna RN 08:28 Fentanyl 50 mcg IV Rey Rousseau Shawna RN 08:31 O2 2 l per min Nasal cannula Rey Rousseau ShawnaRN 08:35 1% Lidocaine 10 ml Subcut Rey Rousseau Jai 08:39 1% Lidocaine 10 ml Subcut Rey Rousseau Jai 08:42 Heparin 6000 units IV Rey Rousseau Shawna RN 08:42 Fentanyl 25 mcg IV Rey Rousseau Shawna RN 08:43 Versed 0.5 mg IV Rey Rousseau Shawna RN 08:54 Heparin 2000 units IV Rey Rousseau Shawna RN 09:01 Fentanyl 25 mcg IV Rey Rousseau Shawna RN 09:14 Versed 0.5 mg IV Rey Rousseau Shawna RN 09:19 Protamine 60 mg IV Rey Rousseau Shawna RN 09:28 1% Lidocaine w/Epi 1:100,000 10 ml Subcut Sarah Rousseau Caitlin PA 09:28 1% Lidocaine w/Epi 1:100,000 10 ml Subcut Sarah Rousseau Caitlin PA I personally monitored the patient?s conscious sedation during theprocedure. Conscious sedation starts with the first sedation medication dose ofFentanyl or Versed and ends when the procedure is completed, the patientis stable for recovery status, and the physician or other qualified healthcare professional providing the sedation ends personal qxbyacclbeduuc-cu-digp time with the patient. The medications listed above were verbally ordered by me and read back tome as documented above. Refer to the procedure log report for additional case details. electronically signed on 06/16/2023 10:05:06 AM with status of Final Rey Rousseau MD [facility] [address] [place] [address] (p) [phone](f) Rey Rousseau MD CV IMAGING * Glucose, Fasting (06/16/2023 6:48 AM LOT ATTENDANT) GLUCOSE 87 70 - 99 mg/dL 06/16/2023 7:39 AM LOT ATTENDANT [facility] Blood BLOOD SPECIMEN / Unknown Venipuncture / Unknown 06/16/2023 6:48 AM LOT ATTENDANT 06/16/2023 6:54 AM LOT ATTENDANT Rehan Alarcon NP CHEMISTRY Performing Organization Address [facility] Co de Phone Number [facility] [address] [place] [address], * ALBUMIN (06/11/2023 8:58 AM LOT ATTENDANT) ALBUMIN 4.0 4.0 - 4.9 g/dL 06/11/2023 9:44 AM LOT ATTENDANT [facility] Blood BLOOD SPECIMEN / Unknown Venipuncture / Unknown 06/11/2023 8:58 AM LOT ATTENDANT 06/11/2023 9:05 AM LOT ATTENDANT Rey Rousseau MD CHEMISTRY Performing Organization Address [facility] Co de Phone Number [facility] [address] [place] [address], * SCAN-LABORATORY REPORT (05/13/2023 12:00 AM LOT ATTENDANT) Scanner OTHER * SCAN-CARDIAC STRIP (05/07/2023 9:50 PM LOT ATTENDANT) Scanner OTHER * NM CARDIAC AMYLOID TC PYP (05/07/2023 12:47 PM LOT ATTENDANT) Anatomical Region Laterality Modality Nuclear Medicine Impressions 05/07/2023 4:24 PM LOT ATTENDANT HMDP imaging was normal. Visual score was 0. This study is NOT suggestive of transthyretin-related cardiac amyloidosis (ATTR). (visual score 0 OR H/CL ratio <1). Other types of amyloid (i.e. AL amyloid) are not excluded. If echo/CMR are strongly positive for ATTR and 99mTc-HMDP imaging is negative, consider further evaluation including endomyocardial biopsy. There was no evidence of extracardiac activity. There were no prior studies available for comparison. CARDIAC PYP PROCEDURE: This patient received 14.4 mCi 99m Tc-HMDP. ??Anterior and left lateral resting planar imaging was performed 180 minutes post IV injection. FINDINGS: The overall quality of the study was excellent. Visual scoring was 0 ?0=absent cardiac uptake ?1=mild uptake less than rib uptake ?2=moderate uptake equal to rib uptake ?3=high uptake greater than rib uptake with mild/absent rib uptake There was no evidence of extracardiac activity. This study was interpreted by: Ron Escobar MD ? Cardiology This study was performed by an [facility] Nuclear/PET Accredited Facility (Releasing physician is signing physician) Narrative 05/07/2023 4:24 PM LOT ATTENDANT Patient name: Tanner James ? Study date: May 07, 2023 HMDP CARDIAC AMYLOID IMAGING REPORT [facility] INDICATION: r/o cardiac amyloidosis. 77 y.o. female HEIGHT: 5 feet 3 inches ?WEIGHT: 143 pounds HISTORY: HF. NSTEMI. PAF. OTHER SYMPTOMATOLOGY INCLUDES: Kidney disease. HTN. COPD. PE. Left nephrectomy. Arlene SIMONS NM * SCAN-CARDIAC STRIP (05/07/2023 9:00 AM LOT ATTENDANT) Scanner OTHER * (ABNORMAL) IMMUNOFIXATION ELP, URINE (05/06/2023 7:50 PM LOT ATTENDANT) IFIX INTERP,URINE Immunofixation on urine shows incomplete monoclonal protein free lambda light chains with no associated heavy chain detected. The finding of a monoclonal protein may be associated with a lymphoproliferative or plasma cell disorder. Consider serum free light chains to further evaluate, if not already performed. Interpreted and electronically signed by: Kenisha Antoine MD 05/11/2023 7:38 PM LOT ATTENDANT [facility] Jenn Rykert LABORATORY ENTRAL LABORATORY PROTEIN QUANT,RAND URINE 21(H) 1 - 14 mg/dL 05/11/2023 7:38 PM LOT ATTENDANT [facility] ENTR[facility] LABORATORY Urine URINE SPECIMEN / Unknown Non-Blood / Unknown 05/06/2023 7:50 PM LOT ATTENDANT 05/06/2023 8:03 PM LOT ATTENDANT Arlene SIMONS URINE [facility] [address] [place] [address], * (ABNORMAL) PROTEIN ELP,URINE RANDOM (05/06/2023 7:50 PM LOT ATTENDANT) URINE,MONOCLO NAL #1(%) 4.6 <=0.0 % 05/11/2023 7:54 PM LOT ATTENDANT [facility] LABORAT[facility] URINE,MONOCLO NAL #1 0.97 <=0.00 mg/dL 05/11/2023 7:54 PM LOT ATTENDANT [facility] ELP INTERP, URINE Monoclonal protein detected in alpha-beta region, confirmed by immunofixation. Interpreted and electronically signed by: Kenisha Antoine MD 05/11/2023 7:54 PM LOT ATTENDANT [facility] PROTEIN QUANT,RAND URINE 21(H) 1 - 14 mg/dL 05/11/2023 7:54 PM LOT ATTENDANT [facility] Urine URINE SPECIMEN / Unknown Non-Blood / Unknown 05/06/2023 7:50 PM LOT ATTENDANT 05/06/2023 8:03 PM LOT ATTENDANT Arlene SIMONS URINE [facility] [address] [place] [id number], [place] * SCAN-CARDIAC STRIP (05/06/2023 7:08 PM LOT ATTENDANT) Scanner OTHER * (ABNORMAL) IMMUNOGLOBULINS FREE LT CHAIN SERUM (05/06/2023 5:11 PM LOT ATTENDANT) KAPPA FREE LIGHT CHAIN, S 3.51(H) 0.33 - 1.94 mg/dL 05/07/2023 1:58 PM LOT ATTENDANT [facility] TRAL LABORATORY LAMBDA FREE LIGHT CHAIN, S 3.75(H) 0.57 - 2.63 mg/dL 05/07/2023 1:58 PM LOT ATTENDANT [facility] TRAL LABORATORY KAPPA/LAMBDA FLC RATIO 0.94 0.26 - 1.65 05/07/2023 1:58 PM LOT ATTENDANT [facility] TRAL LABORATORY Blood BLOOD SPECIMEN / Unknown Butterfly / Unknown 05/06/2023 5:11 PM LOT ATTENDANT 05/06/2023 5:20 PM LOT ATTENDANT Arlene SIMONS SEND OUTS [facility] [address] [place] [address], * (ABNORMAL) IMMUNOFIXATION,SERUM (05/06/2023 5:11 PM LOT ATTENDANT) IGG 474.46(L) 610.30 - 1,616.00 mg/dL 05/10/2023 4:58 PM LOT ATTENDANT [facility] IGA 43.55(L) 84.50 - 499.00 mg/dL 05/10/2023 4:58 PM LOT ATTENDANT [facility] NTRAL LAB[facility] IGM 73.58 35.00 - 242.00 mg/dL 05/10/2023 4:58 PM LOT ATTENDANT [facility] IFIX INTERP,SERUM Immunofixation on serum shows no monoclonal protein detected and no free light chains detected. Interpreted and electronically signed by: Kenisha Antoine MD 05/10/2023 4:58 PM LOT ATTENDANT [facility] Blood BLOOD SPECIMEN / Unknown Butterfly / Unknown 05/06/2023 5:11 PM LOT ATTENDANT 05/06/2023 5:20 PM LOT ATTENDANT Arlene SIMONS CHEMISTRY [facility] [address] [place] [address], * (ABNORMAL) PROTEIN ELP,SERUM (05/06/2023 5:11 PM LOT ATTENDANT) ELP,ALBUMIN 2.51(L) 3.31 - 5.31 g/dL 05/10/2023 4:58 PM LOT ATTENDANT [facility] ELP,ALPHA 1 0.38 0.19 - 0.42 g/dL 05/10/2023 4:58 PM LOT ATTENDANT [facility] ELP,ALPHA 2 0.73 0.44 - 1.03 g/dL 05/10/2023 4:58 PM LOT ATTENDANT [facility] ELP,GAMMA 0.42(L) 0.59 - 1.46 g/dL 05/10/2023 4:58 PM LOT ATTENDANT [facility] ELP,BETA 0.46(L) 0.52 - 1.05 g/dL 05/10/2023 4:58 PM LOT ATTENDANT [facility] ELP INTERP,SERUM 1. Moderate hypogammaglobulinemia can be seen in immunodeficiency states, protein-losing enteropathy, advanced age, or light chain disease. Consider serum free light chains, urine protein electrophoresis and/or urine immunofixation to rule out pure light chain disease. No monoclonal protein detected. 2. Moderate hypoproteinemia and moderate hypoalbuminemia, may be seen in nephrosis, malnutrition, malabsorption, and chronic disease. ?? 3. Decreased Beta-globulins, possible decreased transferrin, C-3 complement, and /or B-lipoprotein. ? Interpreted and electronically signed by: Kenisha Antoine MD ? 05/10/2023 4:58 PM LOT ATTENDANT [facility] PROTEIN,TOTA L 4.5(L) 6.0 - 8.0 g/dL 05/10/2023 4:58 PM LOT ATTENDANT [facility] Blood BLOOD SPECIMEN / Unknown Butterfly / Unknown 05/06/2023 5:11 PM LOT ATTENDANT 05/06/2023 5:20 PM LOT ATTENDANT Arlene SIMONS CHEMISTRY Performing Organization Address [facility] Co de Phone Number [facility] [address] [place] [address], [place] * WHITE BLOOD COUNT (05/06/2023 8:09 AM LOT ATTENDANT) [facility] WHITE BLOOD COUNT 7.4 4.5 - 11.0 thou/cu mm 05/06/2023 8:58 AM LOT ATTENDANT [facility] RAL LABORATORY NRBC 0.0 % 05/06/2023 8:58 AM LOT ATTENDANT [facility] ABS NRBC 0.0 thou /cu mm 05/06/2023 8:58 AM LOT ATTENDANT [facility] Blood BLOOD SPECIMEN / Unknown Butterfly / Unknown 05/06/2023 8:09 AM LOT ATTENDANT 05/06/2023 8:21 AM LOT ATTENDANT Allie Sylvester MD HEMATOLOGY Performing Organization Address [facility] de Phone Number [facility] [address] [place] [address], [place] * CTA CHEST ABD PELVIS TAVR - DUAL READ (05/06/2023 7:41 AM LOT ATTENDANT) Anatomical Region Laterality Modality CHEST, Abdomen, Pelvis Computed Tomography Impressions 05/06/2023 12:17 PM LOT ATTENDANT 1. Subtle ground-glass opacities throughout the bilateral lungs is nonspecific but may be related to volume overload in the setting of trace bilateral pleural effusions or the patient`s history of rheumatoid arthritis/bronchiolitis obliterans given underline bronchial wall thickening. Infection to be excluded on clinical grounds. 2. Cutaneous defect at the central lower abdominal wall measuring 1.8 centimeters with associated continues thickening and packing material. Clinical correlation advised. 3. 2.1 x 1.8 centimeter ground-glass right upper lobe lesion. Anterior right upper lobe nodular opacity measuring 8 millimeters. Three-month follow-up CT chest is recommended. 4. Left retroperitoneal soft tissue attenuation measuring 3.6 x 1.3 centimeters in the left nephrectomy surgical bed, this may be postsurgical hematoma. Recommend correlation to prior imaging and attention on follow-up CT chest. 5. Pancreatic ductal dilatation measuring up to 4 millimeters at the pancreatic tail with no obstructing mass delineated. MRI can be considered as clinically indicated. 6. Please see separate dictation for all cardiac and arterial structures. [employer] GUIDELINES - SUBSOLID NODULES: GROUND GLASS - nodule less than 6 mm: No routine follow-up. - nodule greater than 6 mm: CT at 6-12 months to confirm persistence, then CT every 2 years until 5 years. PART SOLID - nodule less than 6 mm: No routine follow-up. - nodule greater than 6 mm: CT at 3-6 months to confirm persistence. If unchanged and solid component remains less than 6 mm, annual CT should be performed for 5 years. MULTIPLE - nodule less than 6 mm: CT at 3-6 months. If stable, consider CT at 2 and 4 years. - nodule greater than 6 mm: CT at 3-6 months. Subsequent management based on the most suspicious nodule(s). Please note that all CT scans at this facility use dose modulation, iterative reconstruction, and/or weight-based dosing when appropriate to reduce radiation dose to as low as reasonably achievable. Dictated by Robert Roth MD @ 05/06/2023 10:39:34 AM Signed by: Robert Roth MD @05/06/2023 10:39:34 AM (Electronic Signature) Narrative 05/06/2023 12:17 PM LOT ATTENDANT Images from the original result were not included. STUDY: CTA CHEST, ABDOMEN, AND PELVIS TAVR Study date: Indication: 77 year-old woman with aortic valvular stenosis referred for evaluation of aortic valve annulus, thoracic aorta anatomy, and arterial access anatomy to determine candidacy for transcatheter aortic valve replacement (TAVR) procedure. STUDY PARAMETERS: Scanner: Siemens Definition Drive Contrast: 100 ml of Omnipaque 350 Scan protocol: Helical with dose modulation for heart image acquisition. ?? High-pitch for chest, abdomen, and pelvis image acquisition. Radiation dose length product: 1557 for heart and chest, abdomen, pelvis imaging. Image quality: Good FINDINGS: Aortic valve: Trileaflet. Aortic valve calcium score 1630 Annulus: Angles: Optimal deployment projection (balloon expandable device): THAI 12, Caudal 11 degrees Optimal deployment projections (self expandable device): MEDINA 13, Caudal 33 degrees Left ventricle / aortic ??angle: 47 degrees LVOT calcification: none Access: Other findings: Extensive MAC with prominent basilar septal myocardial calcification. Coronary arteries: ?Left main: Mild disease. ?Left anterior descending artery: Mild calcification. ? D1: patent ?Left circumflex artery: Patent ?Right coronary artery: Mild ostial calcification without significant stenosis. Left ventricle septal ECV: ??46% Noncardiac findings: Please see separate radiology report. FINAL IMPRESSIONS: Trileaflet calcified aortic valve with a calcium score of 1630. Best fitting TAVR device options include #23 mm Saima 3 (6% oversized) Transfemoral access best is right side. No invasive angiography is needed prior to aortic valve intervention. Extensive MAC with prominent myocardial basal septal calcification. Increase ECV 46% - myocardial fibrosis or amyloidosis FOR PATIENT: Results are automatically released to your [employer] account once available, in compliance with federal regulations. ?? This means that you may see your results before your provider has had a chance to review them. ??Please allow 2-3 business days for your provider to comment on the results. Ralph Hernandez MD [facility] For Patients: As a result of the Century Cures Act, medical imaging exams and procedure reports are released immediately into your electronic medical record. ??You may view this report before your referring provider. ?? If you have questions, please contact your health care provider. OVER-READ ??OVER-READ ??OVER-READ OVER-READ: DETAILED RADIOLOGY EXTRACARDIAC OVER-READ OF CARDIAC CT 05/06/2023 TECHNIQUE: ??CTA of the chest, abdomen and pelvis was performed per [facility] protocol. Please see Cardiology dictation for details on technique. 100 cc Omnipaque-350 intravenous contrast. ?? This exam is being performed in conjunction with the services provided by the [facility] ([facility]). CLINICAL HISTORY: Over-read of non-cardiovascular structures requested for patient with history of aortic stenosis. FINDINGS: ??Please see separate dictation for all cardiac and arterial structures. Chest: Thyroid: Subcentimeter low-attenuation nodules and calcification. Mediastinum: Normal esophagus. Patent central airways. Lymph Nodes: Prominent right lower paratracheal lymph node with preserved fatty hilum measuring 1.1 centimeters. Calcified mediastinal lymph node consistent with prior granulomatous infection. Lungs: Bibasilar atelectasis. 2.1 x 1.8 centimeter ground-glass right upper lobe lesion. Subtle ground-glass opacities throughout the bilateral lungs most notably at the right upper posterior lobe. peribronchial wall thickening. Anterior right upper lobe nodular opacity measuring up to 8 millimeters series 14, image 90. Additional smaller bilateral nodules measuring up to 5 millimeters (right upper lobe on series 14, image 158), possibly impacted small airways, attention on follow-up. Pulmonary artery: No central pulmonary artery embolism. Pleural spaces: No pneumothorax. Trace bilateral pleural effusions. Right major fissure nodular pleural thickening, attention on follow up. Chest Wall: Unremarkable. Other: Left maxillary mucosal thickening. Abdomen/Pelvis: Arterial phase of acquisition limits evaluation of solid organs, and bowel on top of the low dose imaging technique. Liver: Non-cirrhotic morphology. No obvious suspicious lesion. Gallbladder: Cholecystectomy. Unchanged calculus at the gallbladder fossa measuring 7 millimeters. Bile Ducts: No intrahepatic biliary dilatation. The common bile duct is dilated likely on the basis of cholecystectomy. Spleen: Normal size. Adrenal glands: Unremarkable. Kidneys: Left nephrectomy.. Right renal cyst and additional subcentimeter low-attenuation lesions too small to characterize. In the nephrectomy surgical bed, left retroperitoneal indistinct soft tissue attenuation measuring 3.6 x 1.3 centimeters series 14, image 284 posterior to the splenic flexure and tracking anteriorly to the posterior tail of the pancreas in the region of surgical suture. Pancreas: No obvious arterial phase lesion. Pancreatic ductal dilatation measuring up to 4 millimeters at the pancreatic tail. No obstructing mass is delineated. Lymph nodes: No enlarged retroperitoneal, mesenteric, inguinal, or pelvic adenopathy by size criteria. Bowel: Unremarkable. Peritoneum: No abdominal/pelvis ascites. Abdominal Wall: Mid lower abdominal continuous defect measuring 1.8 centimeters with associated cutaneous thickening and packing material. Scattered calcified granulomas.. Urinary bladder: Limited evaluation due to underdistention. No gross pathology. Reproductive structures: Uterine calcifications likely degenerated fibroids. MSK: Bilateral glenohumeral and thoracolumbar spine degenerative changes. Chronic right posterior rib fractures. Postsurgical findings at the lumbar spine. Arlene SIMONS CT * SCAN-CARDIAC STRIP (05/06/2023 7:08 AM LOT ATTENDANT) Scanner OTHER * SCAN-CARDIAC STRIP (05/06/2023 3:38 AM LOT ATTENDANT) Scanner OTHER * SCAN-CARDIAC STRIP (05/05/2023 4:26 PM LOT ATTENDANT) Scanner OTHER * URINE CULTURE (05/05/2023 11:06 AM LOT ATTENDANT) CULTURE <10,000 CFU/mL multiple organisms 05/06/2023 11:54 AM LOT ATTENDANT [facility] Urine URINE SPECIMEN / Unknown Non-Blood / Unknown 05/05/2023 11:06 AM LOT ATTENDANT 05/05/2023 11:20 AM LOT ATTENDANT Allie Sylvester MD MICROBIOLOGY Performing Organization Address City/[facility]/ZIP Co de Phone Number [facility] [address] [address], * BLOOD CULTURE (05/05/2023 9:42 AM LOT ATTENDANT) Only the most recent of2 resultswithin the time period is included. CULTURE No Growth. 05/09/2023 10:13 AM LOT ATTENDANT [facility] Blood BLOOD SPECIMEN / Unknown Venipuncture / Unknown 05/05/2023 9:42 AM LOT ATTENDANT 05/05/2023 9:51 AM LOT ATTENDANT Narrative [facility] - 05/09/2023 10:13 AM LOT ATTENDANT Low volume blood culture received; possible false negative culture. Allie Sylvester MD MICROBIOLOGY Performing Organization Address City/[facility]/ZIP Co de Phone Number [facility] [address] [place] [address], * Lactate TODAY (05/05/2023 9:36 AM LOT ATTENDANT) Pathologist [facility] LACTATE,VENOUS 1.5 0.5 - 2.0 mmol/L 05/05/2023 10:42 AM LOT ATTENDANT [facility] Blood BLOOD SPECIMEN / Unknown Venipuncture / Unknown 05/05/2023 9:36 AM LOT ATTENDANT 05/05/2023 9:51 AM LOT ATTENDANT Sunny Rivera MD CHEMISTRY [facility] [address] [place] [address], * SCAN CORRESP-LABORATORY RESULTS (05/05/2023 8:42 AM LOT ATTENDANT) Narrative 05/05/2023 8:42 AM LOT ATTENDANT Ordered by an unspecified provider. Other Clinical Staff OTHER * SCAN CORRESP-EKG RESULTS (05/05/2023 8:42 AM LOT ATTENDANT) Narrative 05/05/2023 8:42 AM LOT ATTENDANT Ordered by an unspecified provider. Other Clinical Staff OTHER * SCAN CORRESP-DIAGNOSTICS (05/05/2023 8:42 AM LOT ATTENDANT) Narrative 05/05/2023 8:42 AM LOT ATTENDANT Ordered by an unspecified provider. Other Clinical Staff OTHER * SCAN-CARDIAC STRIP (05/05/2023 8:11 AM LOT ATTENDANT) Scanner OTHER * (ABNORMAL) TROPONIN T (HS) ONE TIME (05/05/2023 4:40 AM LOT ATTENDANT) Pathologist [facility] TROPONIN T HS 145(H) 6-10 ng/L ng/L 05/05/2023 5:38 AM LOT ATTENDANT [facility] Blood BLOOD SPECIMEN / Unknown Butterfly / Unknown 05/05/2023 4:40 AM LOT ATTENDANT 05/05/2023 4:50 AM LOT ATTENDANT Sunny Rivera MD CHEMISTRY Performing Organization Address [facility] de Phone Number [facility] [address] [place] [address], [place] * (ABNORMAL) Pro Brain natriuretic peptide AM (05/05/2023 4:40 AM LOT ATTENDANT) PRO-BNP 7,685(H) <450 pg/mL 05/05/2023 5:41 AM LOT ATTENDANT [facility] Blood BLOOD SPECIMEN / Unknown Butterfly / Unknown 05/05/2023 4:40 AM LOT ATTENDANT 05/05/2023 4:50 AM LOT ATTENDANT Narrative [facility] - 05/05/2023 5:41 AM LOT ATTENDANT The following cut-points have been suggested for the use of proBNP for the diagnostic evaluation of heart failure (HF) in patient with acute dyspnea. Patients with eGFR >= 60 Diagnosis (rule in CHF) ? <50 Years Old ?450 pg/mL 50 - 75 Years Old ?900 pg/mL >75 Years Old ? 1800 pg/mL Exclusion (rule out CHF) Age Independent ?300 pg/mL A cutoff of 1200 pg/mL for patients with an eGFR <60 yields a diagnostic sensitivity of 89% and specificity of 72% for acute congestive heart failure. ? Sunny Rivera MD SEND OUTS Performing Organization Address [facility] Co de Phone Number [facility] [address] [place] [address], [place] * SCAN-CARDIAC STRIP (05/05/2023 12:28 AM LOT ATTENDANT) Scanner OTHER * (ABNORMAL) TROPONIN T (HS) ACUTE W/2HR REFLEX (05/05/2023 12:12 AM LOT ATTENDANT) TROPONIN T HS 155(H) 6-10 ng/L ng/L 05/05/2023 12:56 AM LOT ATTENDANT [facility] Blood BLOOD SPECIMEN / Unknown Venipuncture / Unknown 05/05/2023 12:12 AM LOT ATTENDANT 05/05/2023 12:19 AM LOT ATTENDANT Narrative [facility] - 05/05/2023 12:56 AM LOT ATTENDANT hs-cTnT (Elecsys Troponin T Gen 5) concentration (s) above the sex-specific 99th percentile (16 ng/L or greater for males or 11 ng/L or greater for females) are indicative of myocardial injury. If initial hs-cTnT <=100 ng/L at presentation, a 0h/2h ABSOLUTE (ng/L) delta change (rising or falling) of >=10 ng/L suggests a significant change, whereas a 0h/2h delta change <=3 ng/L suggests no significant change. If initial hs-cTnT >100 ng/L at presentation, a 0h/2h/ RELATIVE (percent, %) delta change of 20% is suggested to distinguish patients with acute vs. chronic myocardial injury. There are multiple etiologies that can cause hs-cTnT increases above the 99th percentile (myocardial injury) other than acute myocardial infarction. Clinical context and careful clinical evaluation are critical for diagnosis and risk-stratification. The diagnosis of acute myocardial infarction requires a rising and/or falling pattern in hs-cTnT concentrations with at least one value above the sex-specific 99th percentile PLUS at least one of the following clinical criteria: ischemic symptoms, new or presumed new significant ST-T wave changes or new LBBB, development of pathological Q waves, imaging evidence of new loss of viable myocardium or new regional wall motion abnormality, or identification of intracoronary atherothrombosis or an acute angiographic culprit on coronary angiography. In appropriate low-risk patients with a non-ischemic electrocardiogram without active chest pain with a symptom onset >3-hours without recurrence, a single initial hs-cTnT<6 ng/L identifies patient with a very low risk in emergency department patient population. Sunny Rivera MD CHEMISTRY [facility]TRAL LAB[facility] [address] [place] [address], from Last 3 Months Advance Directives Documents on File Type Date Recorded Patient [employer] Cann[employer]er Expl anation POLST 04/29/2021 POLST 02/02/2017 1:11 PM 06/29 12/17 Healthcare Directive 04/28/2010 010 Latest Code Status on File Code Status Date Activated Date Inactivated Comments DNR 06/21/2023 6:49 PM 07/01/2023 1:56 PM Question Answer Comments Code Status Discussion: Reviewed Preferences Code Status History Code Status Date Activated Date Inactivated Comments DNR 06/17/2023 3:26 PM 06/18/2023 7:16 PM Question Answer Comments Code Status Discussion: Reviewed Preferences Full Code 06/16/2023 9:43 AM 06/17/2023 3:26 PM Question Answer Comments Code Status Discussion: Reviewed Preferences DNR 05/05/2023 6:18 AM 05/08/2023 2:13 PM Question Answer Comments Code Status Discussion: Reviewed Preferences Full Code 05/04/2023 11:48 PM 05/05/2023 6:18 AM Question Answer Comments Code Status Discussion: Reviewed Preferences Care Teams Pipe Coverer Relationship Specialty Start Date End Date Kyle Healy MD [address] [place] [address] PCP - General Family Practice 07/14/23 Swapnil Henley MD Rheumatology 12/20/12 Marlys Woodruff, RD [address] [place] [address] Registered Dietitian [employer]ognos Administrator 07/05/18 Funmi Medina COTA [address] [place], [place] [id number] Occupational Therapy 05/11/23 Mary Carpio Cardiology - Interventional 01/12/18 DR. Luo Dentistry - General 01/12/18
--- OUTSIDE RECORDS SUMMARY | 2023-07-16 14:50 | XMS_ITS | Encounter Summary ---
Author Name Unknown Organization [facility] Address [address], [place] [address] Care Team Providers Care Shotblaster Name Role Phone Basilio Healy MD Primary Care Provider [phone] Reason for Referral * Procedure/Equipment (Routine) - Incomplete Specialty Diagnoses / Procedures Referred By Contac t Referred To Contact Diagnoses Bronchiectasis, uncomplicated (HRC) Lung infiltrate Procedures CT Chest WO IV Cont Shara Mitchell MD [address] [place] [id number] Referral ID Status Reason Start Date Expiration Date V isits Requested Visits Authorized [id number] Incomplete 04/21/2023 07/20/2024 1 1 Reason for Visit * Reason Comments ORDERS Encounter Details Date Type Department Care Team Description 12/04/2022 Telephone Specialty Center [facility] Pulmonary Medicine [address] [place] [phone] Shara Mitchell MD [facility] [id number] ORDERS Social History Tobacco Use Types Packs/Day Years Used Date Smoking Tobacco: Never Smokeless Tobacco: Never Alcohol Use Standard Drinks/Week Comments No 0 (1 standard drink = 0.6 oz pure alcohol) Went through treatment for alcoholism in 2007 - had been a very functional alcoholic Sex and Gender Information Value Date Recorded Sex Assigned at Not on file Gender Identity Not on file Sexual Orientation Not on file documented as of this encounter Nursing Notes * Raysa Rosas RN - 12/21/2022 3:19 PM CDT Fax for order not received. Wrong fax. Faxed again with right fax number. * Rochelle Lynch RN - 12/14/2022 9:22 AM CDT Sputum order faxed to [facility]. Pt scheduled for ct prior to appt in mar * Shara Mitchell MD - 12/14/2022 8:09 AM CDT Orders printed and signed. Thanks. * Helen Hickey RN - 12/07/2022 11:[address] Mitchell, Both orders pended for print. Please sign if appropriate. Thank you * Shara Mitchell MD - 12/04/2022 11:24 AM CDT Okay to enter sputum culture order and CT chest. Thanks. * Tosha Calero LPN - 12/04/2022 10:21 AM CDT Last Office Visit: 10/22/22. plan: in 6 months with cherelle/DLCO and CT chest . F/U Scheduled: 04/22/23. Pt would like an order for future Sputum Culture sent to [facility]. Ct scan is order for after 04/30/23, a new order will needed if CT scan should be done prior to appt. Dr Mitchell, please advise. Thank you documented in this encounter Plan of Treatment Scheduled Orders Name Type Priority Associated Diagnoses Orde r Schedule CT Chest WO IV Cont Imaging New Routine Bronchiectasis, uncomplicated (HRC) Lung infiltrate Expected: 04/21/2023 (Approximate), Expires: 04/20/2024 documented as of this encounter Visit Diagnoses Diagnosis Bronchiectasis, uncomplicated (HRC)- Primary Lung infiltrate Other nonspecific abnormal finding of lung field documented in this encounter Care Teams Shotblaster Relationship Specialty Start Date End Date Basilio Healy MD [facility] [address] [place] [address] PCP - General Family Practice 10/28/22 documented as of this encounter
--- OUTSIDE RECORDS SUMMARY | 2023-07-16 14:50 | XMS_ITS | Encounter Summary ---
Author Name Unknown Organization [facility] Address [address], [place] [address] Care Team Providers Care Medical Numerical Control Operator Name Role Phone Basilio Healy MD Primary Care Provider [phone] Encounter Details Date Type Department Care Team Description 12/17/2022 Telephone Specialty Center [address] Pulmonary Medicine [address] [place], [place] [phone] Shara Mitchell MD [address] [facility] [address] [place] [address] Social History Tobacco Use Types Packs/Day Years [...] as of this encounter Nursing Notes * Tosha Jane - 12/17/2022 2:12 PM CDT Patient calling in stating that [facility] does not have her Mucinex prescriptions for 120 tablets. Called [facility] to verify and confirmed that they do not have the prescription. RX resent per protocol. documented in this encounter Plan of Treatment Not on file documented as of this encounter Visit Diagnoses Not on filedocumented in this encounter Care Teams Medical Numerical Control Operator Relationship Specialty Start Date End Date Basilio Healy MD [facility] [address] [place] [address] PCP - General Family Practice 10/28/22 documented as of this encounter
--- OUTSIDE RECORDS SUMMARY | 2023-07-16 14:50 | XMS_ITS | Encounter Summary ---
Author Name Unknown Organization [facility] Address [address], [place] [address] Care Team Providers Care Sawyer Cork Slabs Name Role Phone Basilio Healy MD Primary Care Provider [phone] Reason for Visit * Reason Comments Follow-up Encounter Details Date Type Department Care Team Description 01/07/2023 2:30 PM CDT Office Visit [facility] [address] [place] [address] Man Sánchez MD [facility] [place], [place] [id number] Rheumatoid arthritis involving multiple joints (HRC) (Primary Dx); High risk medication use; Primary osteoarthritis of both knees; Current chronic use of systemic steroids; Age related osteoporosis, unspecified pathological fracture presence (HRC); Transaminitis Social History Tobacco Use Types Packs/Day Years [...] on file documented as of this encounter Patient Instructions * Patient Instructions* Man Sánchez MD - 01/07/2023 2:30 PM CDT Longstanding history of seronegative rheumatoid arthritis and presence of generalized osteoarthritis. Patient has been stable current therapy with methotrexate 7 tablets once week and prednisone 7.5 mgdaily. No significant signs of active synovitis on physical exam. Not a good candidate for systemic NSAIDs. Continue pain medication as PCP. Recommend topical treatment like Aspercreme with lidocaine cream or Voltaren gel 3 4 times daily. In the future may consider repeating steroid injections in the knees. Presence of osteoporosis and chronic systemic steroid use. Recently patient could not tolerate Fosamax therapy secondary to musculoskeletal symptoms. The decision was made to try Reclast infusion once a year. Will submit the papers to her insurance for pre approval. Continue calcium vitamin-D supplement daily. Will repeat DEXA scan in 2 years to monitor bone mineral density and assess treatment outcome. Return to clinic 6 months for follow-up or sooner if needed. documented in this encounter Progress Notes * Man Sánchez MD - 01/07/2023 2:30 PM CDT Rheumatology Follow up Note Chief Complaint Patient presents with Follow-up HPI: Tanner James is a 77 y.o. female with medical history as stated below including longstanding history of seronegative rheumatoid arthritis, generalized osteoarthritis and osteoporosis is coming today for follow-up accompanied by her daughter. Currently patient feels at baseline. Denies any red hot swollen joints. Morning stiffness lasting couple of hours. Complains of mild bilateral knee pain predominantly on the left. Recently tried gabapentin but could not tolerate secondary to worsening of the swelling in her lower extremities. Was recently started on Fosamax for the low bone mass but could not tolerate secondary to musculoskeletal symptoms. On methotrexate 7 tablets once a week and prednisone 7.5 mg daily. Patient takes hydrocodone as per PCP. Not a good candidate for NSAIDs secondary to previous historyof GI bleed and being on apixaban. Patient Active Problem List Diagnosis Psoriatic arthropathy (HRC) Spinal stenosis, non-cervical Rheumatoid arthritis (HRC) Long-term use of immunosuppressant medication Fibromyalgia Primary osteoarthritis of both knees Age related osteoporosis (HRC) Obesity due to excess calories with serious comorbidity (HRC) Gout Essential hypertension (HRC) Screening for colon cancer Rheumatoid arthritis involving multiple sites (HRC) Hyponatremia Ocular migraine Current chronic use of systemic steroids Psoriatic arthritis (HRC) Fatty infiltration of liver (HRC) H/O alcohol abuse Diastolic dysfunction, left ventricle CKD (chronic kidney disease) stage 3, GFR 30-59 ml/min (HRC) Vitamin D deficiency (HRC) Family history of breast cancer in first degree relative Chronic anxiety (HRC) Osteopenia Mild aortic sclerosis GERD (gastroesophageal reflux disease) Degenerative spondylolisthesis Spinal stenosis, lumbar region, without neurogenic claudication Rheumatoid arthritis involving multiple joints (HRC) Abnormal LFTs (liver function tests) Alcohol abuse Anxiety (HRC) Bronchiectasis, uncomplicated (HRC) Closed fracture of second lumbar vertebra (HRC) CMV retinitis (HRC) Diastolic dysfunction Hematuria High risk medication use History of fall Mitral stenosis (HRC) Osteoarthritis of knee Paroxysmal atrial fibrillation (HRC) Mitral annular calcification Aortic stenosis, moderate (HRC) 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 3 year follow up ESOPHAGOGASTRODUODENOSCOPY ([facility]) 04/14/09 eswl LUMBAR FUSION ([facility]) 04/2010 lami and fusion; Dr Corea Outpatient Encounter Medications as of 01/07/2023 Medication Sig Note Dispense Refill albuterol 2.5 mg/3 mL, 0.083%, (PROVENTIL) nebulizer solution 1 Vial (2.5 mg) by Nebulization routeevery 6 hours as needed for Wheezing. 180 mL 11 Apixaban (ELIQUIS OR) 2.5 mg two times a day. Ascorbic Acid (VITAMIN C OR) ascorbic acid (VITAMINC) 250 MG tablet Take 1 Tablet (250 mg) by mouth daily. Cholecalciferol 2000 UNITS Take 2,000 Int'l Units by mouth daily. ferrous gluconate (FERGON) 324 (38 Fe) MG tablet Take 1 Tablet (324 mg) by mouth daily. fluticasone-salmeterol (ADVAIR HFA) 115-21 mcg/actuation inhaler Inhale 2 Puffs two times a day. With spacer. Rinse mouth/gargle after use. 1 Each 11 folic acid 1 MG tablet Take 3 Tablets (3 mg) by mouth daily. 270 Tablet 3 guaiFENesin (MUCINEX) 600 MG 12 hour release tablet Take 2 Tablets (1,200 mg) by mouth two times a day. 120 Tablet 11 HYDROcodone-acetaminophen (NORCO) 5-325 MG tablet TAKE 1 TABLET BY MOUTH EVERY 6 HOURS NEEDED. FOR PAIN 90 Tablet 0 methotrexate 2.5 MG tablet Take 7 Tablets (17.5 mg) by mouth once every week. 91 Tablet 1 metoprolol succinate (TOPROL XL) 25 MG 24 hour release tablet Take 1 Tablet (25 mg) by mouth daily. Multiple Vitamins-Minerals (MULTIVITAMIN ADULT OR) Take 1 tablet by mouth daily (every 24 hours). predniSONE (DELTASONE) 5 MG tablet Take 1.5 Tablets (7.5 mg) by mouth daily. 135 Tablet 1 Probiotic Product (SUPER PROBIOTIC OR) daily. rosuvastatin (CRESTOR) 5 MG tablet Take 1 Tablet (5 mg) by mouth daily. sodium chloride 3 % nebulizer solution Inhale 4 mL two times a day. 240 mL 11 valGANciclovir (VALCYTE) 450 MG tablet Take 1 Tablet (450 mg) by mouth daily. [DISCONTINUED] alendronate (FOSAMAX) 70 MG tablet Take 1 Tablet (70 mg) by mouth once every week. Take 30 minutes before first [id number]. Avoid lying down for 30 minutes. 01/07/2023: MSK pain 13 Tablet 3 [DISCONTINUED] benzonatate (TESSALON) 200 MG capsule Take 1 Capsule (200 mg) by mouth three times aday as needed for Cough. 90 Capsule 1 [DISCONTINUED] folic acid 1 MG tablet Take 3 Tablets (3 mg) by mouth daily. 270 Tablet 3 [DISCONTINUED] gabapentin (NEURONTIN) 100 MG capsule 100 mg at bedtime for a week, than 200 mg at bedtime the second week, than 300 mg at bedtime thereafter. (Patient not taking: Reported on 01/07/2023) 01/07/2023: lower ext swelling 90 Capsule 5 [DISCONTINUED] methotrexate 2.5 MG tablet Take 7 Tablets (17.5 mg) by mouth once every week. 91 Tablet 1 [DISCONTINUED] predniSONE (DELTASONE) 5 MG tablet Take 1.5 Tablets (7.5 mg) by mouth daily. Take 10mg in the morning once a day as needed for joint pain. 135 Tablet 1 No facility-administered encounter medications on file as of 01/07/2023. Allergies Allergen Reactions Nsaids Other, see comments HUT Reaction: GI Bleeding; HUT Severity: High; HUT Noted: [id number] Levaquin [Levofloxacin] Other, see comments Muscles snapped Terbinafine Muscle Aches/Weakness Social History Substance and Sexual Activity Alcohol Use No Alcohol/week: 0.0 standard drinks Comment: Went through treatment for alcoholism in 2007 - had been a very functional alcoholic Social History Tobacco Use Smoking Status Never Smokeless Tobacco Never EXAM General Appearance: Pleasant, alert, appropriate appearance for age. No acute distress HEENT Exam: Normocephalic, atraumatic, clear sclera. Neck Exam: Supple, no masses or nodes. Chest/Respiratory Exam: Normal chest wall and respirations. Clear to auscultation. Cardiovascular Exam: Regular rate and rhythm, no murmur. Musculoskeletal Exam: Normal muscle bulk. Mild swelling between the 2nd, 3rd and 4th MCP joints bilaterally. No warmth, erythema or tenderness. Osteoarthritic changes in both hands. No signs of active synovitis. No joint effusion. Full range of motion in all 4 extremities. Normal muscle strength inall 4 extremities. Skin: Pitting edema in the lower extremities distally bilaterally. Neurologic Exam: Nonfocal, normal gross motor movement, tone, and coordination. No tremor. Lab: Lab Results Component Value Date EXT RSLT - WBC 6.55 05/04/2022 RBC 3.99 02/02/2022 EXT RSLT - HGB 9.5 (L) 10/22/2022 HCT 38.9 02/02/2022 MCV 97.5 02/02/2022 RDW 18.0 (H) 02/02/2022 EXT RSLT - PLATELET COUNT 118 (L) 10/22/2022 Lab Results Component Value Date EST RSLT - AST 51 (H) 10/22/2022 Lab Results Component Value Date EXT RSLT - CREATININE 1.2 05/04/2022 Assessment and Plan: Longstanding history of seronegative rheumatoid arthritis and presence of generalized osteoarthritis. Patient has been stable on current therapy with methotrexate 7 tablets once a week and prednisone 7.5 mg daily. No significant signs of active synovitis on physical exam. Not a good candidate for systemic NSAIDs secondary to history of GI bleed and being on blood thinners. Currently on hydrocodone p.r.n. as per PCP. Recommend topical treatment like Aspercreme with lidocaine cream or Voltaren gel 3 4 times daily. In the future may consider repeating steroid injections in the knees. Presence of osteoporosis and chronic systemic steroid use. Recently patient could not tolerate Fosamax therapy secondary to musculoskeletal symptoms. The decision was made to try Reclast infusion once a year. Will submit the papers to her insurance for pre approval. Continue calcium and vitamin-D supplement daily. Will repeat DEXA scan in 2 years to monitor bone mineral density and assess treatment outcome. High risk medication use. Close monitoring of kidney, liver function CBC. Provided patient with a new requisition for blood work since patient does the blood work and not feel clinic. Recommend doing blood work today since patient is here and will check inflammatory markers to monitor disease activity. Return to clinic 6 months for follow-up or sooner if needed. Total of 40 minutes was spent reviewing previous medical records, consulting patient and charting. Man Sánchez. Rheumatology [facility] 01/07/2023 This note consists of symbols derived from keyboarding, and voice recognition software. As a result, wrong word or '[id number]' substitutions may have occurred due to the inherent limitations of voice recognition software. There may be errors in the script that have gone undetected. Please consider this when interpreting information found in this chart. documented in this encounter Plan of Treatment Scheduled Orders Name Type Priority Associated Diagnoses Orde r Schedule ALT (SGPT) (every 3 months) Lab Routine Rheumatoid arthritis involving multiple joints (HRC) High risk medication use Every 3 Months for 4 Occurrences starting 01/07/2023 until 01/08/2024, 1 completed AST (every 3 months) Lab Routine Rheumatoid arthritis involving multiple joints (HRC) High risk medication use Every 3 Months for 4 Occurrences starting 01/07/2023 until 01/08/2024, 1 completed CBC -W/Diff (every 3 months) Lab Routine Rheumatoid arthritis involving multiple joints (HRC) High risk medication use Every 3 Months for 4 Occurrences starting 01/07/2023 until 01/08/2024, 1 completed Creatinine / GFR (every 3 months) Lab Routine Rheumatoid arthritis involving multiple joints (HRC) High risk medication use Every 3 Months for 4 Occurrences starting 01/07/2023 until 01/08/2024, 1 completed documented as of this encounter Results * (ABNORMAL) Creatinine / GFR (every 3 months) (01/07/2023 3:02 PM CDT) Creatinine 1.00 0.55 - 1.02 mg/dL 01/07/2023 4:35 PM CDT [facility] GFR, Estimated 59(L) >60 mL/min/1.7 3m2 01/07/2023 4:35 PM CDT [facility] Blood Venipuncture / Unknown 01/07/2023 3:02 PM CDT 01/07/2023 3:02 PM CDT Narrative [facility] - 01/07/2023 4:35 PM CDT The National Kidney Disease Education Program suggests measuring Cystatin C in patients with eGFRcrea of 45 to 59 ml/min/1.73^2 who do not have other markers of kidney damage (i.e. elevated urine Albumin/Creatinine Ratio or a prior Cystatin C confirming the presence of chronic kidney disease). Man Sánchez MD LAB_1 Performing Organization Address City/[facility]/ZIP Co de Phone Number [facility] [address] [place] [address], [facility] [phone] * AST (every 3 months) (01/07/2023 3:02 PM CDT) AST (SGOT) 40 10 - 40 U/L 01/07/2023 4:35 PM CDT [facility] Blood Venipuncture / Unknown 01/07/2023 3:02 PM CDT 01/07/2023 3:02 PM CDT Man Sánchez MD LAB_1 Performing Organization Address [facility]/ZIP Co de Phone Number [facility] [address] [place] [address], [facility] [phone] * ALT (SGPT) (every 3 months) (01/07/2023 3:02 PM CDT) ALT (SGPT) 28 <=55 U/L 01/07/2023 4:35 PM CDT [facility] Blood Venipuncture / Unknown 01/07/2023 3:02 PM CDT 01/07/2023 3:02 PM CDT Man Sánchez MD LAB_1 Performing Organization Address [facility]/ZIP Co de Phone Number [facility] [address] [place] [address], [facility] [phone] * (ABNORMAL) ESR (01/07/2023 3:02 PM CDT) Pathologist [facility] Sedimentation Rate 27(H) 0 - 20 mm/hr 01/07/2023 3:41 PM CDT [facility] Blood Venipuncture / Unknown 01/07/2023 3:02 PM CDT 01/07/2023 3:02 PM CDT Man Sánchez MD LAB_1 Performing Organization Address [facility] de Phone Number [facility] [address] [place] [address], [facility] [phone] * (ABNORMAL) C-Reactive Protein (01/07/2023 3:02 PM CDT) Pathologist [facility] C-Reactive Protein 5.5(H) 0.0 - 0.7 mg/dL 01/07/2023 4:35 PM CDT [facility] Blood Venipuncture / Unknown 01/07/2023 3:02 PM CDT 01/07/2023 3:02 PM CDT Man Sánchez MD LAB_1 Performing Organization Address [facility] Co de Phone Number [facility] [address] [place] [address], [facility] [phone] documented in this encounter Visit Diagnoses Diagnosis Rheumatoid arthritis involving multiple joints (HRC)- Primary High risk medication use Encounter for long-term (current) use of other medications Primary osteoarthritis of both knees Primary localized osteoarthrosis, lower leg Current chronic use of systemic steroids Age related osteoporosis, unspecified pathological fracture presence (HRC) Transaminitis Nonspecific elevation of levels of transaminase or lactic acid dehydrogenase (LDH) documented in this encounter Care Teams Sawyer Cork Slabs Relationship Specialty Start Date End Date Basilio Healy MD [facility] [address] [place] [address] PCP - General Family Practice 10/28/22 documented as of this encounter
--- OUTSIDE RECORDS SUMMARY | 2023-07-16 14:50 | XMS_ITS | Encounter Summary ---
Author Name Unknown Organization [facility] Address [address] [place] [address] Care Team Providers Care Community Leader Name Role Phone Basilio Healy MD Primary Care Provider Encounter Details Date Type Department Care Team Description 03/17/2023 Orders Only HIM DEPARTMENT Provider, [place] [address] Social History Tobacco Use Types Packs/Day Years [...] on file documented as of this encounter Plan of Treatment Not on file documented as of this encounter Procedures Procedure Name Priority Date/Time Associated Diagnosis Comments LABORATORY REPORT 03/17/2023 documented in this encounter Results * LABORATORY REPORT (03/17/2023) Interface Provider DUMMY/OTHER/AR documented in this encounter Visit Diagnoses Not on filedocumented in this encounter Care Teams Community Leader Relationship Specialty Start Date End Date Basilio Healy MD [facility] [address] [place] [address] PCP - General Family Practice 10/28/22 documented as of this encounter
--- OUTSIDE RECORDS SUMMARY | 2023-07-16 14:50 | XMS_ITS | Encounter Summary ---
Author Name Unknown Organization [facility] Address [address] [place] [address] Care Team Providers Care Bead Machine Operator Name Role Phone Basilio Healy MD Primary Care Provider [phone] Reason for Visit * Reason Comments Symptoms Encounter Details Date Type Department Care Team Description 02/16/2023 Telephone [facility] Pulmonary Medicine [address] [place], [place] [id number] Shara Mitchell MD [address] [facility] [address] [place], [place] [id number] Symptoms Social History Tobacco Use Types Packs/Day Years [...] as of this encounter Nursing Notes * Helen Hickey RN - 02/19/2023 3:10 PM CDT Attempted to contact pt, no answer or VM. Quilt Sewer spoke to daughter, indicated pt will need to be physically evaluated. She stated her mother is at a MD appt today and will notify her of the message. * Mati Sampson RN - 02/18/2023 9:45 AM CDT Attempted to call patient, but line busy and unable to leave . Nursing please contact patient again in future. * Wanda Saenz MD - 02/18/2023 7:23 AM CDT Since patient did not improve with antibiotics, she needs to be evaluated by primary care or . * Tosha Calero LPN - 02/17/2023 3:57 PM CDT Pt calling to check status on phone call from 02/16. Pt is feeling, weak, loss of appetite, increased fatigue. Dr Saenz, please advise in Dr Mitchells absence. Thank you * Mati Sampson RN - 02/16/2023 4:10 PM CDT Pulmonary Diagnosis: Bronchiectasis Pulmonary Provider: Dr. Mitchell Pt calling today with c/o: Coughing and dark green sputum SOB: No Fever: No Wheezing: No Cough: Yes Sputum: Yes Color: Dark Green Chest tightness: No Chest pain: No Sore throat: Yes Edema: No On O2? No Recent steroids/antibiotics: Yes Z-pack, 2 weeks ago Current pulmonary medications: Prednisone, albuterol neb, advair HFA, guaifenesin, sodium chloride neb. Comments or Recommendation given: Patient instructed to go to urgent care if symptoms worsen. Dr. Mcwilliams, please advise in Dr. Mitchell's absence for next steps as primary care provider is no longer willing to refill antibiotics. Patient has appointment scheduled on 04/22/23. Ok to leave detailed message on phone [phone]. documented in this encounter Plan of Treatment Not on file documented as of this encounter Visit Diagnoses Not on filedocumented in this encounter Care Teams Bead Machine Operator Relationship Specialty Start Date End Date Basilio Healy MD [facility] [address] [facility] [place] [address] PCP - General Family Practice 10/28/22 documented as of this encounter
--- OUTSIDE RECORDS SUMMARY | 2023-07-16 14:50 | XMS_ITS | Encounter Summary ---
Author Name Unknown Organization [facility] Address [address], [place] [address] Care Team Providers Care Husbandry Technician Name Role Phone Basilio Healy MD Primary Care Provider [phone] Encounter Details Date Type Department Care Team Description 01/07/2023 3:00 PM CDT Lab Visit [facility] [address] [place] [address] Rheumatoid arthritis involving multiple joints (HRC); High risk medication use Social History Tobacco Use Types Packs/Day Years [...] Procedure Name Priority Date/Time Associated Diagnosis Comments CBC AND DIFFERENTIAL PANEL Routine 01/07/2023 3:02 PM CDT Rheumatoid arthritis involving multiple joints (HRC) High risk medication use CREATININE / GFR Routine 01/07/2023 3:02 PM CDT Rheumatoid arthritis involving multiple joints (HRC) High risk medication use COMPLETE BLOOD COUNT-W/DIFF Routine 01/07/2023 3:02 PM CDT Rheumatoid arthritis involving multiple joints (HRC) High risk medication use C-REACTIVE PROTEIN Routine 01/07/2023 3: 02 PM CDT Rheumatoid arthritis involving multiple joints (HRC) High risk medication use ALT (SGPT) Routine 01/07/2023 3:02 PM CDT Rheumatoid arthritis involving multiple joints (HRC) High risk medication use AST Routine 01/07/2023 3:02 PM CDT Rheumatoid arthritis involving multiple joints (HRC) High risk medication use ESR Routine 01/07/2023 3:02 PM CDT Rheumatoid arthritis involving multiple joints (HRC) High risk medication use documented in this encounter Results * (ABNORMAL) Complete Blood Count-W/Diff (01/07/2023 3:02 PM CDT) WBC 11.0(H) 3.5 - 10.5 x10(9)/L 01/07/2023 3:06 PM [facility] RBC 3.02(L) 3.90 - 5.03 x10(12)/L 01/07/2023 3:06 PM [facility] Hemoglobin 10.2(L) 12.0 - 15.5 g/dL 01/07/2023 3:06 PM [facility] HCT 33.2(L) 34.9 - 44.5 % 01/07/2023 3:06 PM [facility] MCV 109.9(H) 80.0 - 100.0 fL 01/07/2023 3:06 PM [facility] MCH 33.8(H) 27.6 - 33.3 pg 01/07/2023 3:06 PM [facility] MCHC 30.7(L) 31.5 - 35.2 g/dL 01/07/2023 3:06 PM [facility] RDW 17.1(H) 11.9 - 15.5 % 01/07/2023 3:06 PM [facility] Platelets 155 150 - 450 x10(9)/L 01/07/2023 3:06 PM [facility] Automated NRBC 0 <=0 /100 WBC 01/07/2023 3:06 PM [facility] Neutrophil Absolute 10.3(H) 1.7 - 7.0 10(9)/L 01/07/2023 3:06 PM [facility] Lymphocyte Absolute 0.5(L) 1.0 - 4.8 10(9)/L 01/07/2023 3:06 PM [facility] Monocyte Absolute 0.1(L) 0.2 - 0.9 10(9)/L 01/07/2023 3:06 PM [facility] Eosinophil Absolute 0.0 0.0 - 0.5 10(9)/L 01/07/2023 3:06 PM T [facility] Basophil Absolute 0.0 0.0 - 0.3 10(9)/L 01/07/2023 3:06 PM T [facility] Immature Granulocyte % 0.9(H) 0.0 - 0.5 % 01/07/2023 3:06 PM [facility] Blood Venipuncture / Unknown 01/07/2023 3:02 PM CDT 01/07/2023 3:02 PM CDT Man Sánchez MD LAB_1 [facility] [address] [place] [address], [facility] [phone] * (ABNORMAL) Creatinine / GFR (every 3 months) (01/07/2023 3:02 PM CDT) Creatinine 1.00 0.55 - 1.02 mg/dL 01/07/2023 4:35 PM T [facility] GFR, Estimated 59(L) >60 mL/min/1.7 3m2 01/07/2023 4:35 PM T [facility] Blood Venipuncture / Unknown 01/07/2023 3:02 PM CDT 01/07/2023 3:02 PM CDT Narrative [facility] - 01/07/2023 4:35 PM CDT The National Kidney Disease Education Program suggests measuring Cystatin C in patients with eGFRcrea of 45 to 59 ml/min/1.73^2 who do not have other markers of kidney damage (i.e. elevated urine Albumin/Creatinine Ratio or a prior Cystatin C confirming the presence of chronic kidney disease). Man Sánchez MD LAB_1 Performing Organization Address [facility] de Phone Number [facility] [id number] [place], [place] [id number], [facility] [phone] * AST (every 3 months) (01/07/2023 3:02 PM CDT) AST (SGOT) 40 10 - 40 U/L 01/07/2023 4:35 PM CDT [facility] Blood Venipuncture / Unknown 01/07/2023 3:02 PM CDT 01/07/2023 3:02 PM CDT Man Sánchez MD LAB_1 Performing Organization Address [facility] Phone Number [address] [address], [facility] [phone] * ALT (SGPT) (every 3 months) (01/07/2023 3:02 PM CDT) ALT (SGPT) 28 <=55 U/L 01/07/2023 4:35 PM CDT [facility] Blood Venipuncture / Unknown 01/07/2023 3:02 PM CDT 01/07/2023 3:02 PM CDT Man Sánchez MD LAB_1 Performing Organization Address [facility] de Phone Number [facility] [address] [place] [address], [facility] [phone] * (ABNORMAL) ESR (01/07/2023 3:02 PM CDT) Sedimentation Rate 27(H) 0 - 20 mm/hr 01/07/2023 3:41 PM CDT [facility] Blood Venipuncture / Unknown 01/07/2023 3:02 PM CDT 01/07/2023 3:02 PM CDT Man Sánchez MD LAB_1 Performing Organization Address [facility]/ZIP Co de Phone Number [facility] [address] [place] [address], [facility] [phone] * (ABNORMAL) C-Reactive Protein (01/07/2023 3:02 PM CDT) C-Reactive Protein 5.5(H) 0.0 - 0.7 mg/dL 01/07/2023 4:35 PM CDT [facility] Blood Venipuncture / Unknown 01/07/2023 3:02 PM CDT 01/07/2023 3:02 PM CDT Man Sánchez MD LAB_1 Performing Organization Address [facility]/ZIP Co de Phone Number [facility] [address] [place] [address], [facility] [phone] documented in this encounter Visit Diagnoses Diagnosis Rheumatoid arthritis involving multiple joints (HRC) High risk medication use Encounter for long-term (current) use of other medications documented in this encounter Care Teams Husbandry Technician Relationship Specialty Start Date End Date Basilio Healy MD [facility] [address] [place] [address] PCP - General Family Practice 10/28/22 documented as of this encounter
--- OUTSIDE RECORDS SUMMARY | 2023-07-16 14:50 | XMS_ITS | Encounter Summary ---
Author Name Unknown Organization [facility] Address [address] [place] [address] Care Team Providers Care Commissary Worker Name Role Phone Basilio Healy MD Primary Care Provider [phone] Reason for Visit * Reason Onset Date Comments Refill 12/17/2022 Encounter Details Date Type Department Care Team Description 12/17/2022 Refill [facility] [address] Pulmonary Medicine [address] [place], [place] [phone] Shara Mitchell MD [address] [facility] [address] [place] [address] Refill Social History Tobacco Use Types Packs/Day Years [...] as of this encounter Nursing Notes * Rochelle Lynch RN - 12/17/2022 2:57 PM CDT Pt would like to change benzonatate to #90 instead of #30. Please sign if appropriate documented in this encounter Plan of Treatment Not on file documented as of this encounter Visit Diagnoses Diagnosis Persistent cough Cough documented in this encounter Care Teams Commissary Worker Relationship Specialty Start Date End Date Basilio Healy MD [facility] [address] [place] [address] PCP - General Family Practice 10/28/22 documented as of this encounter
--- OUTSIDE RECORDS SUMMARY | 2023-07-16 14:50 | XMS_ITS | Encounter Summary ---
Author Name Unknown Organization [facility] Address [address] [place] [address] Care Team Providers Care Distributed Generation Project Manager Name Role Phone Basilio Healy MD Primary Care Provider [phone] Encounter Details Date Type Department Care Team Description 03/11/2023 Orders Only HIM DEPARTMENT Provider, [place] [address] Social History Tobacco Use Types Packs/Day Years [...] Priority Date/Time Associated Diagnosis Comments LABORATORY REPORT 03/11/2023 documented in this encounter Results * LABORATORY REPORT (03/11/2023) Interface Provider DUMMY/OTHER/AR documented in this encounter Visit Diagnoses Not on filedocumented in this encounter Care Teams Distributed Generation Project Manager Relationship Specialty Start Date End Date Basilio Healy MD [facility] [address] [place] [address] PCP - General Family Practice 10/28/22 documented as of this encounter
--- OUTSIDE RECORDS SUMMARY | 2023-07-16 14:50 | XMS_ITS | Encounter Summary ---
Author Name Unknown Organization [facility] Address [address] [place] [address] Care Team Providers Care Neuropsychiatric Aide Name Role Phone Basilio Healy MD Primary Care Provider [phone] Reason for Visit * Reason Comments Refill Encounter Details Date Type Department Care Team Description 11/15/2022 Refill Specialty Center [address] Pulmonary Medicine [address] [place], [place] [phone] Shara Mitchell MD [address] [facility] [address] [place], [place] [phone] Refill Social History Tobacco Use Types Packs/Day [...] on filedocumented in this encounter Care Teams Neuropsychiatric Aide Relationship Specialty Start Date End Date Basilio Healy MD [facility] [address] [place] [address] PCP - General Family Practice 10/28/22 documented as of this encounter
--- OUTSIDE RECORDS SUMMARY | 2023-07-16 14:50 | XMS_ITS | Encounter Summary ---
Author Name Unknown Organization [facility] Address [address] [place] [address] Care Team Providers Care Helicopter Pilot Name Role Phone Basilio Healy MD Primary Care Provider [phone] Reason for Visit * Reason Comments RESULTS, TEST Encounter Details Date Type Department Care Team Description 11/10/2022 Telephone Specialty Center [address] Pulmonary Medicine [address] [place] [address] Shara Mitchell MD [address] [facility] [address] [place] [address] RESULTS, TEST Social History Tobacco Use Types Packs/Day Years [...] Nursing Notes * Rochelle Lynch RN - 11/12/2022 10:07 AM CDT Pt called with the below recommendations. Pt verbalized understanding of instructions. Pt will calloffice if cough persists to be scheduled for bronch * Shara Mitchell MD - 11/12/2022 9:32 AM CDT She can try Tessalon and OTC Delsym for her cough. If the cough persists, she will need a bronchoscopy. Thanks. * Day North RN - 11/12/2022 8:58 AM CDT Called patient & advised of the information below. She would like Dr. Mitchell to know that her cough is different now - it is a dry non-productive cough & it is really wearing on her. She is wondering if Dr. Mitchell would send in a prescriptio to help her coughing. She is taking the Mucinex as prescribed, but is frustrated that it is not helping her get her mucus out. Dr. Mitchell - please advise on a medication to treat her cough. Patient would like a call back regarding this concern. Thank you. * Shara Mitchell MD - 11/11/2022 8:23 PM CDT Sputum culture grew Group A Strep (not Strep pneumoniae). She was prescribed doxycycline on 10/29/22,which does not typically cover Group A Strep. So, I would like her to add Augmentin 500mg BID for 7days. I would like her to take both antibiotics to ensure all organisms are well covered. The Augmentin can interact with her methotrexate. So, I have lowered the dose (500mg rather than 875mg) and duration. Thanks. * Rochelle Lynch RN - 11/10/2022 10:28 AM CDT Please review sputum culture results. In your office. documented in this encounter Plan of Treatment Not on file documented as of this encounter Visit Diagnoses Diagnosis Acute bronchitis due to Streptococcus- Primary Acute bronchitis Acute bronchitis, unspecified organism Persistent cough Cough documented in this encounter Care Teams Helicopter Pilot Relationship Specialty Start Date End Date Basilio Healy MD [facility] [address] [place] [address] PCP - General Family Practice 10/28/22 documented as of this encounter
--- OUTSIDE RECORDS SUMMARY | 2023-07-16 14:50 | XMS_ITS | Encounter Summary ---
Author Name Unknown Organization [facility] Address [address] [place] [address] Care Team Providers Care Negative Checker Name Role Phone Basilio Healy MD Primary Care Provider [phone] Encounter Details Date Type Department Care Team Description 07/13/[address] [facility] [address] Rheumatology [address] [facility] [place], [place] [phone] Swapnil Henley MD [address] [place], [place] [phone] Social History Tobacco Use Types Packs/Day Years [...] Procedure Name Priority Date/Time Associated Diagnosis Comments PAOLA (DIABETIC EYE EXAM) 07/13/2023 documented in this encounter Results * PAOLA (DIABETIC EYE EXAM) (07/13/2023) Swapnil Henley MD DUMMY/OTHER/AR documented in this encounter Visit Diagnoses Not on filedocumented in this encounter Care Teams Negative Checker Relationship Specialty Start Date End Date Basilio Healy MD [facility] [address] [facility] [address] PCP - General Family Practice 10/28/22 documented as of this encounter
--- OUTSIDE RECORDS SUMMARY | 2023-07-16 14:50 | XMS_ITS | Encounter Summary ---
Author Name Unknown Organization [facility] Address [address] [place] [address] Care Team Providers Care Spooling Operator Name Role Phone Elsewhere, Pcp Primary Care Provider Unavailabl e Reason for Visit * Reason Onset Date Comments Cardiac Rehab 07/06/2023 Encounter Details Date Type Department Care Team (Late st Contact Info) Description 07/06/2023 Clinical Communication Department of Family Medicine in [place], [place] [address] [place] [phone] Louie Malagon M.D. [address] [place] [address] Cardiac Rehab Social History Tobacco Use Types Packs/Day Years [...] 08/12/2022 How often do you attend chur ch or taoism services? Never 08/12/2022 Do you belong to any clubs o r organizations such as taoist groups, unions, fraternal or athletic groups, or [...] and heating? Not hard at all 08/12/2022 [facility] - Occupational Stress [...] place to sleep or slept in a mcc (including now)? No 08/12/2022 Nutrition Answer Date [...] AM CDT Sexual Orientation Not on file documented as of this encounter Miscellaneous Notes * Telephone Encounter - Samanta Leigh R.N. - 07/06/2023 2:14 PM CITY ADMINISTRATOR Cardiac rehab referral received on 07/06/23. 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 Compression treatment was unsuccessful. Pt underwent vascular surgical repair on 06/23/23. I contacted patient to determine if she is currently at a correction facility or at home. Advised to contact our office at her convenience. Electronically signed by: Samanta Leigh R.N. 07/06/23 2:21 PM CITY ADMINISTRATOR ADMINISTRATOR documented in this encounter Plan of Treatment Not on file documented as of this encounter Visit Diagnoses Not on filedocumented in this encounter Care Teams Spooling Operator Relationship Specialty Start Date End Date Elsewhere, Pcp PCP - General 12/24/20 documented as of this encounter
--- OUTSIDE RECORDS SUMMARY | 2023-07-16 14:50 | XMS_ITS | Encounter Summary ---
Author Name Unknown Organization [facility] Address [address] [place] [address] Care Team Providers Care Kettle Room Helper Name Role Phone Basilio Healy MD Primary Care Provider [phone] Encounter Details Date Type Department Care Team Description 12/23/2022 Orders Only HIM DEPARTMENT Provider, [place] [address] Social History Tobacco Use Types Packs/Day Years [...] Priority Date/Time Associated Diagnosis Comments LABORATORY REPORT 12/23/2022 documented in this encounter Results * LABORATORY REPORT (12/23/2022) Interface Provider DUMMY/OTHER/AR documented in this encounter Visit Diagnoses Not on filedocumented in this encounter Care Teams Kettle Room Helper Relationship Specialty Start Date End Date Basilio Healy MD [facility] [address] [place] [address] PCP - General Family Practice 10/28/22 documented as of this encounter
--- OUTSIDE RECORDS SUMMARY | 2023-07-16 14:50 | XMS_ITS | Encounter Summary ---
Author Name Unknown Organization [facility] Address [address], [place] [address] Care Team Providers Care Print Traffic Manager Name Role Phone Basilio Healy MD Primary Care Provider [phone] Reason for Visit * Reason Comments FYI Encounter Details Date Type Department Care Team Description 04/28/2023 Telephone [place] [address] Rheumatology [address] [facility] [place] [address] Man Sánchez MD [address] [place] [address] FYI Social History Tobacco Use Types Packs/Day Years [...] as of this encounter Nursing Notes * Lory Kasper RN - 05/03/2023 9:27 AM CST Spoke with patient, given the providers message and they verbalized understanding. TRICIAN UNDERGROUND * Man Sánchez MD - 05/03/2023 9:22 AM CST Please let the patient know: I am not sure what was the context for discontinuing the methotrexate but I am okay with holding the methotrexate at this time and see the outcome in the next couple of months. Will re-evaluate her joint symptoms on the next follow-up appointment while patient has been off the methotrexate. TRICIAN UNDERGROUND * Chela Brock RN - 04/28/2023 11:23 AM CDT FYI- Patient calling, is in [facility] [place], [place]. She is calling to let you know the [facility] Doctor, Dr. Hung has taken her off her methotrexate medication for good. He told her it was a terrible medication. She has a follow-up to see you in June. documented in this encounter Plan of Treatment Not on file documented as of this encounter Visit Diagnoses Not on filedocumented in this encounter Care Teams Print Traffic Manager Relationship Specialty Start Date End Date Basilio Healy MD [facility] [address] [place] [address] PCP - General Family Practice 10/28/22 documented as of this encounter
--- OUTSIDE RECORDS SUMMARY | 2023-07-16 14:50 | XMS_ITS | Clinical Summary ---
Author Name Unknown Organization [facility] Address [address] [place] [address] Care Team Providers Care Electrical Maintenance Technician Name Role Phone Basilio Healy MD Primary Care Provider [phone] Source Comments You are receiving this document as you are listed as the primary care provider,follow-up provider, or the patient has been referred to you for consultation.This is in compliance with the Medicare and[facility] EHR Incentive Program,which states Providers who transition their patient to another setting of careor provider of care or refers their patient to another provider of care shouldprovide summary care record for each transition of care or referral. Optini Allergies Active Allergy Reactions Criticality Noted Date Comments Levofloxacin Other, see comments 02/02/2022 Muscles snapped Nsaids Other, see comments High 03/18/2011 HUT Reaction: GI Bleeding; HUT Severity: High; HUT Noted: [id number] Terbinafine Muscle Aches/Weakness 02/02/2022 Medications Medication Sig Dispensed Refills Start Date End Date Status Cholecalciferol 2000 UNITS Take 2,000 Int'l Units by mouth daily. 0 10/29/2014 Active Multiple Vitamins-Minerals (MULTIVITAMIN ADULT OR) Take 1 tablet by mouth daily (every 24 hours). 0 11/04/2015 Active Probiotic Product (SUPER PROBIOTIC OR) daily. 0 Active HYDROcodone-acetami nophen (NORCO) 5-325 MG tabletIndications:P soriatic arthropathy (HRC) TAKE 1 TABLET BY MOUTH EVERY 6 HOURS NEEDED. FOR PAIN 90 Tablet 0 01/17/2020 Active Ascorbic Acid (VITAMIN C OR) 0 Active rosuvastatin (CRESTOR) 5 MG tablet Take 1 Tablet (5 mg) by mouth daily. 0 Active valGANciclovir (VALCYTE) 450 MG tablet Take 1 Tablet (450 mg) by mouth daily. 0 Active Apixaban (ELIQUIS OR) 2.5 mg two times a day. 0 Active albuterol 2.5 mg/3 mL, 0.083%, (PROVENTIL) nebulizer solutionIndications :Bronchiectasis, uncomplicated (HRC) 1 Vial (2.5 mg) by Nebulization route every 6 hours as needed for Wheezing. 180 mL 11 04/23/2022 Active ferrous gluconate (FERGON) 324 (38 Fe) MG tablet Take 1 Tablet (324 mg) by mouth daily. 0 Active ascorbic acid (VITAMINC) 250 MG tablet Take 1 Tablet (250 mg) by mouth daily. 0 Active sodium chloride 3 % nebulizer solutionIndications :Bronchiectasis, uncomplicated (HRC) Inhale 4 mL two times a day. 240 mL 11 10/22/2022 Active fluticasone-salmete rol (ADVAIR HFA) 115-21 mcg/actuation inhaler Inhale 2 Puffs two times a day. With spacer. Rinse mouth/gargle after use. 1 Each 11 11/04/2022 Active guaiFENesin (MUCINEX) 600 MG 12 hour release tablet Take 2 Tablets (1,200 mg) by mouth two times a day. 120 Tablet 11 12/17/2022 Active metoprolol succinate (TOPROL XL) 25 MG 24 hour release tablet Take 1 Tablet (25 mg) by mouth daily. 0 12/26/2022 Active predniSONE (DELTASONE) 5 MG tabletIndications:R heumatoid arthritis involving multiple joints (HRC),High risk medication use Take 1.5 Tablets (7.5 mg) by mouth daily. 135 Tablet 1 01/07/2023 Active methotrexate 2.5 MG tabletIndications:R heumatoid arthritis involving multiple joints (HRC),High risk medication use Take 7 Tablets (17.5 mg) by mouth once every week. 91 Tablet 1 01/07/2023 Active folic acid 1 MG tabletIndications:R heumatoid arthritis involving multiple joints (HRC),High risk medication use Take 3 Tablets (3 mg) by mouth daily. 270 Tablet 3 01/07/2023 Active Active Problems Patient Care Coordination No te Formatting of this note migh t be different from the original. Rheumatology- Patient receives drug assistance for Enbrel from [employer]. Approved until 06/27/22-jm Problem Noted Date Diagnosed Date DNR (do not resuscitate) 10/28/2022 Overview: DNR/DNI code status. Confirmed with patient and her daughter on 10/22/22 at Pulmonary Clinic visit. 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 3 year follow up recommended (October 2021). Rheumatoid arthritis involving multiple sites Hyponatremia 12/10/2016 Ocular migraine 11/15/2015 Current chronic use of systemic steroids 016 Rheumatoid arthritis 04/18/2015 Psoriatic arthritis 01/16/2015 Fatty infiltration of liver 11/21/2013 Overview: ULTRASOUND 10/2013; Abnormal liver function tests; history of Ethanol abuse; H/O alcohol abuse 11/10/2013 Overview: Quit alcohol use 2007 Diastolic dysfunction, left ventricle 11/10/2013 Overview: Echocardiogram 09/2013 [place]; Ejection fraction 65% CKD (chronic kidney disease) stage 3, GFR 30-59 ml/min 11/10/2013 Vitamin D deficiency 08/23/2013 Family history of breast cancer in first degree relative 05/14/2013 Overview: Mother, daughter: Stress to patient need for annual mammogram; 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 Patient discontinued 05/2012. 12/20/2012 start venlafaxine 37.5mg Osteopenia 12/07/2011 Overview: Mixing Machine Tender Cork Rod wants patient to be on alendronate indefinitely due to her prednisone use so she restarted it on 10/04/18. DXA 02/12/18 Hip T-score -1.9 FRAX = 10.8% / 2% STOP alendronate and repeat DXA in 1 year (January 2019) DXA 05/2015 Hip T -1.8 FRAX = 19.2% / 3.5% START alendronate DXA 12-07; T hip -1.61 FRAX = 14%/2.2% (Rx was not recommended; repeat DXA 2014) Mild aortic sclerosis 10/26/2011 Overview: Systolic murmur. ECHO: 03/2009: EF WNL. Aortic stenosis, moderate 10/26/2011 Overview: Systolic murmur. ECHO: 03/2009: EF WNL. Spinal stenosis, non-cervical 11/27/2010 Overview: Spinal Stenosis GERD (gastroesophageal reflux disease) 0 Overview: Atypical chest pain Degenerative spondylolisthesis 04/25/2010 Spinal stenosis, lumbar curtis on, without neurogenic claudication 11/13/2009 Overview: History lumbar lamiX and Fusion Dr Corea 04/2010 Rheumatoid arthritis involving multiple joints 0 11/13/2009 Overview: Followed by Dr Swapnil Henley: Sheila Burleson On MTX and prednisone. June 2012 tried plaquinil [no improvement ] Summer 2012 failed arenacea. 2014 Failed Rituxin; Start Remicade fall 2015 Psoriatic arthropathy 06/05/2004 Overview: LW Onset: ; Arthritis Psoriatic Resolved Problems Problem Noted Date Diagnosed Date Resolved Date Pulmonary embolism 12/14/2016 9 Fever and chills 12/10/2016 10/10/2018 Renal insufficiency 12/10/2016 10/11/19 19 Pneumonia 12/10/2016 10/10/2018 Morbid obesity with BMI of 40.0-44.9, adult 11/15/2015 01/17/2019 Overview: Morbid obesity with BMI of 40.0-44.9, adult (HC) Shoulder impingement 04/03/2013 017 Surgical wound infection 06/30/2010 Spinal stenosis, lumbar curtis on, without neurogenic claudication 04/25/2010 10/26/2011 Psoriatic arthritis 11/13/2009 11/14/19 10 Hypertension 04/13/2009 01/21/2018 Thrombocytopenia 04/13/2009 11/13/2009 Overview: Thrombocytopenia UTI (urinary tract infection) 04/13/2009 04/21/2010 Loss of weight 04/13/2009 11/13/2009 Fatigue 04/13/2009 11/13/2009 Acute renal failure 04/13/2009 11/14/19 10 Blood in stool 04/13/2009 11/13/2009 Hypotension 04/13/2009 11/13/2009 Anemia 04/13/2009 04/21/2010 Overview: HGB 9.6 ON ADMIT TO [facility] 03/2009; ENDOSCOPY REVEALED SHALLOW GASTRIC ULCERATIONS WITH CMV GASTRITIS AND H PYLORI; TREATED WITH CLARITHROMYCIN, AMPICILLIN AND OMEPRAZOLE Health maintenance examination 12/25/2008 11/02/2016 Overview: Last PE, 11/26/11 Pap, 04/2011 negative Lipids, 11/26/11 total- 225 trig- 139 hdl- 72 ldl- 125 Mammo, 05/2011 normal Dexa, 11/26/11 osteopenia; Hip -1.61 Forearm -1.67 Colonoscopy, 11/12/08; normal; repeat at 5 year due to FH Td, 03/15/03 Rheumatoid arthritis 12/25/2008 010 Overview: Rheumatoid arthritis(714.0) Encounters Date Type Department Care Team Description 07/13/2023 Orders Only [place] [address] [place] [address]. [place] [address] Swapnil Henley MD 04/28/2023 Telephone [place] [address] [place] [address] [facility] [place] [address] Man Sánchez MD FYI from Last 3 Months Immunizations Name Administration Dates Next Due Flu Vac (3+ yrs) 04/03/2013, 2,04/30/2010, 009,04/10/2003 Flu Vac Preserv Free (3+yrs) 04/30/2010,04/15/20 09 HepA Adult (19+ yrs) 10/20/2004,03/07/2004 HepA Ped/Adol (1-18 yrs) 10/20/2004 HepA, Pediatric (DO NOT USE; for [facility]IC only) 10/20/2004 IPV (Polio) 03/07/2004 Influenza (Fluad) 04/19/2018 Influenza IIV3 (Trivalent) F luzone Highdose, 65+ Yrs (61703) 04/25/2019,03/09/2016,03/30/2014 Influenza IIV4 (Quadrivalent ) 0.5mL (70419) 04/23/2021,04/25/2019,04/19/2018, 016,03/30/2014,04/03/2013,04/15/2012,08/2009,04/15/2009,04/10/2003 Influenza IIV4 (Quadrivalent ) Fluzone, 65+ Yrs 05/04/2022 OPV, Trivalent (Orimune or tOPV) 03/07/2004 PCV13 (Prevnar) 03/28/2016,01/31/2015 PPSV23 (Pneumovax) 03/09/2016,03/28/2015, 010 Pfizer Bivalent 12+ 03/24/2022 Pfizer Monovalent 12+ Purple Top 05/02/2021,08/26,08/20/2020 Td 03/15/2003 Tdap 12/23/2020,05/28/2012 Typhoid (Typhim Vi, IM) 03/07/2004 Family History Medical History Relation Name Comments Cancer, Prostate Father 85, living Cancer, Breast Mother Heart Disease Mother S/p angioplast y in her 80s Stroke Mother Ruptured AVM - recovered fully Cancer, Breast Daughter Good Health Other 6 siblings and 3 children all in good health Relation Name Status Comments Father Mother Daughter Other Social History Tobacco Use Types Packs/Day [...] on file Sexual Orientation Not on file Last Filed Vital Signs Vital Sign Reading Time Taken Comments Blood Pressure 135/72 07/18/2019 3:38 PM PUBLIC HEALTH PROFESSOR Pulse 104 10/22/2022 1:45 PM CDT Temperature 36.7 ??C (98 ??F) 04/07/2016 8:25 AM CDT Respiratory Rate 18 02/12/2014 11:42 AM CDT Oxygen Saturation 98% 10/22/2022 1:45 PM CDT Inhaled Oxygen Concentration - - Weight 72.6 kg (160 lb) 10/22/2022 1:45 PM CDT Height 160 cm (5' 3) 10/22/2022 1:45 PM CDT Body Mass Index 28.34 10/22/2022 1:45 PM CDT Plan of Treatment Health Maintenance Due Date Last Done Comments Medicare Annual Wellness Visit 1945 COVID-19 Vaccine ( season) 2023 03/24/2022, 05/02/2021, 09/10/2020, Additional history exists Influenza (#1) 2023 05/04/2022, 03/29, 04/25/2019, Additional history exists Colonoscopy 10/27/2023 10/26/2018 (Comp leted), 11/12/2008 (Completed) Dexa 10/07/2024 10/07/2022 DTaP/Tdap/Td (3 - Tdap) 12/23/2030 12/24/19, 05/28/2012, 03/15/2003 IPV (Polio) Aged Out 03/07/2004, 03/07/2004 No lo nger eligible based on patient's age to complete this topic HepA Completed 10/20/2004, 09/27, 10/20/2004, Additional history exists Hep C Screening (Preventive Services) Completed 12/12/2015 Pneumococcal 65+ Yrs Completed 03/28/2016, 03/09/2016, 03/28/2015, Additional history exists HepB Aged Out No longer eligi ble based on patient's age to complete this topic Hib Aged Out No longer eligi ble based on patient's age to complete this topic MCV4 Aged Out No longer eligi ble based on patient's age to complete this topic Procedures Procedure Name Priority Date/Time Associated Diagnosis Comments PAOLA (DIABETIC EYE EXAM) 07/13/2023 from Last 3 Months Results * PAOLA (DIABETIC EYE EXAM) (07/13/2023) Swapnil Henley MD DUMMY/OTHER/AR from Last 3 Months Advance Directives Documents on File Type Date Recorded 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
--- OUTSIDE RECORDS SUMMARY | 2023-07-16 14:50 | XMS_ITS | Encounter Summary ---
Author Name Unknown Organization [facility] Address [address] [place] [address] Care Team Providers Care Web Marketing Intern Name Role Phone Elsewhere, Pcp Primary Care Provider Unavailabl e Reason for Referral * Outpatient (Routine) - Authorized Specialty Diagnoses / Procedures Referred By Nithya urias Referred To Contact Orthopedic Surgery Bree Coker D.PRonak [address] [place] [address] [facility] Region Referral ID Status Reason Start Date Expiration Date V isits Requested Visits Authorized [id number] Authorized 08/17/2022 08/16/2025 1 1 IRATORY TECHNICIAN Reason for Visit * Reason Comments Nail Trim * Appointment Request (Routine) - Closed Specialty Diagnoses / Procedures Referred By Contac t Referred To Contact Podiatry Referral ID Status Reason Start Date Expiration Date Visits Re quested Visits Authorized [id number] Closed 08/12/2022 08/12/2023 1 1 Encounter Details Date Type Department Care Team (Latest Contact Info) Description 08/17/2022 11:15 AM RESPIRATORY TECHNICIAN Comprehensive Visit Department of Orthopedic Surgery in [place], [place] [address] [place] [phone] Bree Coker D.PShantanuMShantanu [address] [place] [address] Onychomycosis (Primary Dx); Arthritis Rheumatoid (HCC); Peripheral Vascular Disease (HCC) Discharge Disposition: Home or Self Care Social History Tobacco Use Types Packs/Day Years [...] often do you attend chur ch or episcopal services? Never 08/12/2022 Do you belong to any clubs o r organizations such as restorationist groups, unions, fraternal or athletic groups, or [...] and heating? Not hard at all 08/12/2022 [facility] [place] [facility] Occupat ional Health - Occupational Stress [...] money to buy more. Never true 08/12/19 Within the past 12 months, t he [...] place to sleep or slept in a senior living (including now)? No 08/12/2022 Nutrition Answer Date [...] on file documented as of this encounter Last Filed Vital Signs Vital Sign Reading Time Taken Comments Blood Pressure - - Pulse - - Temperature 36.1 ??C (97 ??F) 08/17/2022 10:57 AM RESPIRATORY TECHNICIAN Respiratory Rate - - Oxygen Saturation - - Inhaled Oxygen Concentration - - Weight - - Height - - Body Mass Index - - documented in this encounter Consult Notes * Bree Coker D.P.M. - 08/17/2022 11:15 AM CST [facility] Podiatric Medicine and Surgery New Patient Clinic Note Name: Tanner James : 1945 Sex: female Date: 08/17/2022 Tanner James is a 77 y.o. female who was referred to the Podiatric Surgery Clinic by self for consultation of nailcare. ASSESSMENT #1 Onychomycosis #2 Arthritis Rheumatoid (HCC) #3 Peripheral Vascular Disease (HCC) PLAN Using a sterile toenail mariah, performed sharp debridement to thickened elongated onychomycotic toenail plates digits 1 through 5 bilateral feet to normal thickness and length. No bleeding was noted upon debridement of nail plates and all nail plates were prepped and cleansed with alcohol before and after procedure. Instructed patient to monitor feet after the debridement that occurred today for any signs of acuteinfection such as increased redness, swelling, drainage, newly developed sores or lesions. Should they notice any acute changes, they will contact the podiatry clinic and/or present to emergency department for immediate evaluation. Patient expressed understanding and was in agreement with this plan. Patient will return to Podiatry Clinic in 3 months for routine footcare, sooner if any acute concerns develop. CHIEF COMPLAINT Nail Trim HISTORY OF PRESENT ILLNESS Tanner James is a 77 y.o. female who [facility]. Patient moved in with her daughter and her family recently from [place]. She was getting her toenails trimmed by 2 ankle toes, but due to recently losing eyesight and 1 of her eyes, she is unable to take the bus to this location. She reports that due to her rheumatoid arthritis she is unable to trim her toenails herself. They have also become quite thick because of the toenail fungus which adds extra challenge. She would like to have assistance with this today. No further concerns at this time. HISTORY No past medical history on file. MEDICATIONS Current Outpatient Medications Medication Sig Dispense Refill apixaban (ELIQUIS) 2.5 mg tablet TAKE 1 TABLET BY MOUTH TWO TIMES A DAY 30 tablet 0 ascorbic acid, vitamin C, (VITAMIN C) 250 mg tablet Take 250 mg by mouth daily. With her iron tablet cholecalciferol (VITAMIN D3) 50 mcg (2,000 Unit) tablet Take 2,000 Units by mouth daily. ferrous gluconate 324 mg (37.5 mg iron) tablet Take 37.5 mg of iron by mouth daily. folic acid 1 mg tablet Take 3 mg by mouth as directed. Daily EXCEPT Mondays. furosemide (LASIX) 40 mg tablet Take 40 mg by mouth daily. Just started 12/27/21; dose was being adjusted. hlzxzrxyjmhg-Ds-zppc-minerals tablet Take 1 tablet by mouth daily. prednisoLONE acetate, PF, 1 % drops,suspension Administer 2 drops into the left eye at bedtime. Started in September. Label was not on bottle; unsure number of drops. To left eye at bedtime. predniSONE (DELTASONE) 10 mg tablet TAKE 1 TABLET BY MOUTH DAILY FOR 3 DOSES 3 tablet 0 predniSONE (DELTASONE) 2.5 mg tablet TAKE 3 TABLETS BY MOUTH DAILY FOR 7 DOSES 21 tablet 0 rosuvastatin (CRESTOR) 5 mg tablet Take 5 mg by mouth at bedtime. valGANciclovir (VALCYTE) 450 mg tablet Take 450 mg by mouth daily. Started in September for eye infection; is to remain on indefinitely. albuterol 2.5 mg /3 mL nebulizer solution USE 1 VIAL VIA NEBULIZER TWICE DAILY. USE PRIOR TO SALINENEBULIZER SOLUTION FOR BRONCHIAL HYGIENE(MUCUS CLEARANCE) 180 mL 11 HYDROcodone-acetaminophen (NORCO) 5-325 mg per tablet Take 1 tablet by mouth every 6 (six) hours asneeded for pain. potassium chloride (KLORCON/K-TAB) 10 mEq ER tablet Take 40 mEq by mouth daily with breakfast. Do not crush or chew. predniSONE (DELTASONE) 1 mg tablet TAKE 4 TABLETS BY MOUTH DAILY 120 tablet 0 sodium chloride (HYPERSAL) 7 % nebulizer solution USE 1 VIAL VIA NEBULIZER TWICE DAILY. USE ALBUTEROL BEFORE THIS TREATMENT. USE AEROBIKA FLUTTER VALVE AFTER THIS TREATMENT 240 mL 11 No current facility-administered medications for this visit. ALLERGIES Allergies Allergen Reactions Levofloxacin Other (see comments) Severe tendon issues Nsaids (Non-Steroidal Anti-Inflammatory Drug) GI bleeding Terbinafine Hcl Other (see comments) and Headache Headaches, fever PSYCHOSOCIAL HISTORY Social History Socioeconomic History Marital status: Spouse name: Not on file Number of children: Not on file Years of education: Not on file Highest education level: 12th grade Occupational History Not on file Tobacco Use Smoking status: Never Smokeless tobacco: Not on file Vaping Use Vaping Use: never used Substance and Sexual Activity Alcohol use: Not Currently Drug use: Never Sexual activity: Defer Other Topics Concern Not on file Social History Narrative Not on file Social Determinants of Health Financial Resource Strain: Low Risk Difficulty of Paying Living Expenses: Not hard at all Food Insecurity: No Food Insecurity Worried About Running Out of Food in the Last Year: Never true Ran Out of Food in the Last Year: Never true Transportation Needs: No Transportation Needs Lack of Transportation (Medical): No Lack of Transportation (Non-Medical): No Physical Activity: Insufficiently Active Days of Exercise per Week: 1 day Minutes of Exercise per Session: 10 min Stress: No Stress Concern Present Feeling of Stress : Only a little Social Connections: Socially Isolated Frequency of Communication with Friends and Family: More than three times a week Frequency of Social Gatherings with Friends and Family: Twice a week Attends Tenriism Services: Never Active Member of Clubs or Organizations: No Attends Club or Organization Meetings: Never Marital Status: Intimate Partner Violence: Not At Risk Fear of Current or Ex-Partner: No Emotionally Abused: No Physically Abused: No Sexually Abused: No Housing Stability: Low Risk Unable to Pay for Housing in the Last Year: No Number of Places Lived in the Last Year: 1 Unstable Housing in the Last Year: No FAMILY HISTORY No family history on file. REVIEW OF SYSTEMS All other ROS negative except for those noted in HPI. PHYSICAL EXAMINATION Vital Signs: Temp 36.1 ??C (Temporal) There is no height or weight on file to calculate BMI. General: Appears well, in no apparent distress. Alert and oriented times three, pleasant and cooperative. Respiratory: No evidence of respiratory distress. Breathing is regular and non-labored. Psych: Appropriate affect, judgement and insight. Vascular: Pulses: PT 0/4 and DP 0/4 bilateral Hair growth absent at the level of the digits. Capillary refill less than three seconds Lower extremity/foot edema present, moderate nonpitting edema present to bilateral lower extremities, symmetric. Neurological: Protective sensation Intact bilateral to light touch Dermatologic: Skin thin, shiny and atrophic, without open lesions bilateral Slight purple hue noted to the digits on the right foot. Blanchable. Bilateral 1st, 2nd, 3rd, 4th, and 5th toenail(s) are thickened, dystrophic, discolored and full of subungual debris. Drainage is not present. Absent pain on palpation of affected nail(s). Musculoskeletal: Strength rated 5/5 with inversion, eversion, DF and PF bilateral. Normal tone bilateral lower extremities. Decreased medial longitudinal arch height, bilateral and symmetric Primary care physician: ELSEWHERE, PCP Jonelle SandersPShantanuMShantanu IRATORY TECHNICIAN documented in this encounter Plan of Treatment Scheduled Referrals Name Type Priority Associated Diagnoses Order Schedule Orthopedic Surgery office visit (clinic) Outpatient Referral Routine Expected: 11/14/2022 (Approximate), Expires: 11/15/2023 documented as of this encounter Visit Diagnoses Diagnosis Onychomycosis- Primary Arthritis Rheumatoid (HCC) Peripheral Vascular Disease (HCC) documented in this encounter Care Teams Web Marketing Intern Relationship Specialty Start Date End Date Elsewhere, Pcp PCP - General 12/24/20 documented as of this encounter
--- OUTSIDE RECORDS SUMMARY | 2023-07-16 14:50 | XMS_ITS | Encounter Summary ---
Author Name Unknown Organization [facility] Address [address] [place] [address] Care Team Providers Care Buccaro Name Role Phone Basilio Healy MD Primary Care Provider [phone] Reason for Visit * Reason Comments RESULTS, TEST Encounter Details Date Type Department Care Team Description 03/02/2023 Telephone [facility] Pulmonary Medicine [address] [place] [address] Shara Mitchell MD [address] [facility] [address] [place] [address] RESULTS, TEST Social History Tobacco [...] as of this encounter Nursing Notes * Shara Mitchell MD - 03/03/2023 12:08 PM CDT Thank you for the update. Agree with recommendations. * Rochelle Lynch RN - 03/03/2023 11:11 AM CDT Pt notified. Pt took augmentin x 8 days. Coughing yet. Pt using sodium chloride and albuterol. Pt not using inhaler (advair). Pt not using aerobika as prescribed. Will send pt the following instructions for medication use. Use albuterol in the morning and evening Use sodium chloride after albuterol morning and evening Use aerobika after the albuterol and sodium chloride morning and evening. See AEROBIKA information sheet Use Advair 2 puffs twice a day after albuterol, sodium chloride and aerobika. Call [phone] to make a follow up appointment with Dr. Mitchell Call [facility] patient assistance program to see if they are able to help with cost of Advair [phone] * Shara Mitchell MD - 03/03/2023 8:27 AM CDT Sputum culture from [facility] 02/19/23 reviewed. It showed normal bacteria you would find in the airway (normal upper respiratory lópez). They did not find any organisms associated with pulmonary infections, which is great. No change to treatment plan. Thanks. * Rochelle Lynch RN - 03/02/2023 9:39 AM CDT Please see sputum results from 02/19/23. Thank you documented in this encounter Plan of Treatment Not on file documented as of this encounter Visit Diagnoses Not on filedocumented in this encounter Care Teams Buccaro Relationship Specialty Start Date End Date Basilio Healy MD [facility] [address] [place] [address] PCP - General Family Practice 10/28/22 documented as of this encounter
--- OUTSIDE RECORDS SUMMARY | 2023-07-16 14:51 | XMS_ITS | Encounter Summary ---
Author Name Unknown Organization [facility] Address [address], [place] [address] Care Team Providers Care Account Support Associate Name Role Phone Unavailable Primary Care Provider Unavailabl e Reason for Visit * Reason Comments Orders Needed Encounter Details Date Type Department Care Team Description 09/21/2022 Telephone Specialty Center 3931 Pulmonary Medicine [address] [place], [place] [phone] Shara Mitchell MD [address] [facility] [address] [place], [place] [phone] Orders Needed Social History Tobacco Use Types Packs/Day Years [...] Nursing Notes * Rochelle Lynch RN - 09/21/2022 3:20 PM CDT Pt notified * Shara Mitchell MD - 09/21/2022 3:03 PM CDT Rx signed. Thanks. * Helen Hickey RN - 09/21/2022 1:37 PM CDT Pt calling in to request a Rx for Mucinex be called in per discussion at last office visit. Dr. Mitchell, Rx pended for review and signature if appropriate. Thank you Pt requests call back when signed, ok to leave detailed message. documented in this encounter Plan of Treatment Not on file documented as of this encounter Visit Diagnoses Not on filedocumented in this encounter
--- OUTSIDE RECORDS SUMMARY | 2023-07-16 14:51 | XMS_ITS | Encounter Summary ---
Author Name Unknown Organization [facility] Address [address] [place] [address] Care Team Providers Care Field Support Engineer Name Role Phone Unavailable Primary Care Provider Unavailabl e Reason for Visit * Procedure/Equipment (Routine) - Incomplete Specialty Diagnoses / Procedures Referred By Contac t Referred To Contact Procedures Foreign Image(S) XR Chest Provider, Foreign Images [address] [place] [address] Referral ID Status Reason Start Date Expiration Date V isits Requested Visits Authorized [id number] Incomplete 09/23/2022 12/23/2023 1 1 Encounter Details Date Type Department Care Team Description 09/15/2022 9:00 AM CDT Ancillary Procedure [facility] PACS [address] [place] [address] Provider, Foreign Images [address] [place] [address] Social History Tobacco Use Types Packs/Day Years [...] Procedure Name Priority Date/Time Associated Diagnosis Comments FOREIGN IMAGE(S) XR CHEST Routine 09/15/2022 9:00 AM CDT documented in this encounter Results * Foreign Image(S) XR Chest (09/15/2022 9:00 AM CDT) Narrative POCT - 09/23/2022 8:57 AM CDT These outside images have been uploaded into PACS. If the results were provided, they will be located in the patient's chart under the Media or Imaging tab. Foreign Images Provider RAD NON-REPORTAB LES Performing Organization Address City/State/[facility] Co de Phone Number POCT documented in this encounter Visit Diagnoses Not on filedocumented in this encounter
--- OUTSIDE RECORDS SUMMARY | 2023-07-16 14:51 | XMS_ITS | Encounter Summary ---
Author Name Unknown Organization [facility] Address [address] [place] [address] Care Team Providers Care Store Stock Help Name Role Phone Unavailable Primary Care Provider Unavailabl e Reason for Visit * Reason Comments Symptoms Encounter Details Date Type Department Care Team Description 09/15/2022 Telephone [facility] 3931 Pulmonary Medicine [address] [place], [place] [phone] Shara Mitchell MD [address] [facility] [address] [place], [place] [phone] Symptoms Social History Tobacco Use Types Packs/Day [...] Nursing Notes * Rochelle Lynch RN - 09/15/2022 1:04 PM CDT Given below recommendation. Pt verbalized understanding of said recommendations. * Comfort Ron MD - 09/15/2022 12:40 PM CDT She has a complicated history involving bronchiectasis, but also bilateral pleural effusions. I would recommend that she be seen in urgent care to rule out pneumonia or recurrence of her pleural effusions. Traditionally we avoid inhaled corticosteroids in patients with bronchiectasis unless absolutely necessary, and she has a follow-up with Dr. Mitchell in a month so I will let her make that decision. This sounds like an acute issue and I do think that she would be better served by being seen in primary or urgent care as I can not easily identify the cause of her symptoms without seeing her. * Rochelle Lynch RN - 09/15/2022 11:51 AM CDT Pt calling today with c/o SOB: With activity Fever: No Wheezing: Yes Cough: Yes Sputum: Yes Color: green, brown, clear Chest tightness: No Chest pain: No Loss of taste/smell: No Sore throat: No Edema: Yes feet x 2 weeks ago On O2? No Liters per Minute: O2 sat% Unknown % Current medications: albuterol, sodium chloride, NOT using aerobika or sinus rinse. Comments or Recommendation given: Pt will restart aerobika bid, increase fluid intake, start AM sinus rinse. Pt will call flight communications operator due to new feet edema. Dr Mitchell is out of the office but per last note If cough/dyspnea worsen, could consider a trial of ICS/LABA inhaler . Please advise on a new ics/laba start. Thank you Pharmacy:[facility] documented in this encounter Plan of Treatment Not on file documented as of this encounter Visit Diagnoses Not on filedocumented in this encounter
--- OUTSIDE RECORDS SUMMARY | 2023-07-16 14:51 | XMS_ITS | Encounter Summary ---
Author Name Unknown Organization [facility] Address [address] [place] [address] Care Team Providers Care Web Site Developer Name Role Phone Unavailable Primary Care Provider Unavailabl e Reason for Visit * Reason Comments Pulmonary Encounter Details Date Type Department Care Team Description 07/30/2022 Telephone Specialty Center 3931 Pulmonary Medicine [address] [place], [place] [phone] Shara Mitchell MD [address] [facility] [address] [place], [place] [address] Pulmonary Social History Tobacco Use Types Packs/Day Years [...] Nursing Notes * Rochelle Lynch RN - 07/31/2022 8:38 AM CST Pt notified that order was sent to lab. Pt will go to if symptoms are acute R OPERATOR * Shara Mitchell MD - 07/30/2022 3:47 PM CST Yes, it would be reasonable for her to get a sputum sample. Thanks. R OPERATOR * Rochelle Lynch RN - 07/30/2022 12:03 PM CST Pt would like to do a sputum culture. Please sign sputum order. Pt has take doxy in 04/18 and 06/18and 07/20. Nurses fax to [facility] [phone] R OPERATOR documented in this encounter Plan of Treatment Not on file documented as of this encounter Visit Diagnoses Diagnosis Bronchiectasis, uncomplicated (HRC)- Primary documented in this encounter
--- OUTSIDE RECORDS SUMMARY | 2023-07-16 14:51 | XMS_ITS | Encounter Summary ---
Author Name Unknown Organization [facility] Address [address] [place] [address] Care Team Providers Care Timber Cutter Name Role Phone Unavailable Primary Care Provider Unavailabl e Encounter Details Date Type Department Care Team Description 09/17/2022 Notes/Orders [facility] [address] [place], [place] [phone] Man Sánchez MD [address] [place] [address] Social History Tobacco Use Types Packs/Day Years [...] on file documented as of this encounter Progress Notes * Man Sánchez MD - 09/17/2022 9:03 AM CDT Recent blood work shows normal kidney function and mild elevation of liver enzymes. Mild anemia hemoglobin 10.9. Normal red blood cells and platelet count. Recommend lowering methotrexate down to 6 tablets once a week. Continue folic acid daily. Will discuss further on the next follow-up appointment. Sincerely, Dr. Sánchez. documented in this encounter Plan of Treatment Not on file documented as of this encounter Visit Diagnoses Not on filedocumented in this encounter
--- OUTSIDE RECORDS SUMMARY | 2023-07-16 14:51 | XMS_ITS | Encounter Summary ---
Author Name Unknown Organization [facility] Address [address] [place] [address] Care Team Providers Care [employer] Planners Name Role Phone Basilio Healy MD Primary Care Provider [phone] Reason for Referral * Procedure/Equipment (Routine) - Incomplete Specialty Diagnoses / Procedures Referred By Contac t Referred To Contact Diagnoses Bronchiectasis, uncomplicated (HRC) Lung infiltrate Procedures CT Chest WO IV Cont Shara Arango MD [address] [address] Referral ID Status Reason Start Date Expiration Date V isits Requested Visits Authorized [id number] Incomplete 04/30/2023 07/29/2024 1 1 * Consult/Transfer Care (Routine) - Closed Specialty Diagnoses / Procedures Referred By Contharley t Referred To Contact Diagnoses Bronchiectasis, uncomplicated (HRC) Shara Arango MD [address] [address] Referral ID Status Reason Start Date Expiration Date Visits Re quested Visits Authorized [id number] Closed 10/22/2022 04/20/2023 1 1 Scheduling Instructions This order is your clinician's recommendation for a service and is not an insurance referral which authorizes payment. The recommended service and/or location may not be covered by your insurance plan. Please call the number on your insurance card to find out your specific benefits and coverage for the recommended services and/or location. If you need help scheduling the recommended services, please ask your clinician's staff to assist you. Question Answer Diagnosis? OTHER (ILD, CF, RLD, Pulm HTN, etc) Option for the patient to transition to the Phase III/Medically Supervised Exercise Program if appropriate Yes May check glucose per protocol (see policy link below) or if patient has symptoms? Yes Comments Fairjvw-Ridges Reason for Visit * Reason Comments Follow-up Encounter Details Date Type Department Care Team Description 10/22/2022 1:45 PM CDT Office Visit [facility] [address] [place] [address] Shara Arango MD [address] [facility] [address] [place] [address] Bronchiectasis, uncomplicated (HRC) (Primary Dx); Chronic cough; Lung infiltrate; DNR (do not resuscitate); Pulmonary nodules/lesions, multiple Social History Tobacco Use Types Packs/Day Years [...] Taken Comments Blood Pressure - - Pulse 104 10/22/2022 1:45 PM CDT Temperature - - Respiratory Rate - - Oxygen Saturation 98% 10/22/2022 1:45 PM CDT Inhaled Oxygen Concentration - - Weight 72.6 kg (160 lb) 10/22/2022 1:45 PM CDT Height 160 cm (5' 3) 10/22/2022 1:45 PM CDT Body Mass Index 28.34 10/22/2022 1:45 PM CDT documented in this encounter Patient Instructions * Patient Instructions* Shara Arango MD - 10/22/2022 1:45 PM CDT Start pulmonary rehab Start Dulera inhaler with a spacer, 2 puffs twice a day. Remember to rinse and gargle after each use. Try the Dulera inhaler for at least 1 month to see if this improves your shortness of breath and cough I am going to change your sodium chloride solution to 3% rather than 7% Continue sodium chloride nebs and albuterol nebs twice a day Continue Aerobika at least twice a day Keep your immunizations up-to-date I will update our records to indicate your DNR/DNI code status. Please send a copy of your POLST form when able. documented in this encounter Progress Notes * Shara Arango MD - 10/22/2022 1:45 PM CDTAddended by: SHARA ARANGO on: 10/28/2022 11:46 AM Modules accepted: Orders * Rochelle Powell RN - 10/22/2022 1:45 PM CDTAddended by: ROCHELLE POWELL on: 10/28/2022 01:14 PM Modules accepted: Orders * Rochelle Powell RN - 10/22/2022 1:45 PM CDTAddended by: ORCHELLE POWELL on: 10/28/2022 03:34 PM Modules accepted: Orders * Shara Arango MD - 10/22/2022 1:45 PM CDT PULMONARY FOLLOW-UP REASON FOR VISIT: Tanner James is a 77 y.o. female is here today for follow up of bronchiectasis SUBJECTIVE: We last did a phone visit on 07/30/22 to discuss increased respiratory symptoms. She is here today with her daughter. She was seen by me in initial consultation to establish care for bronchiectasis on 04/23/22. She had been previously followed at [facility]. Please see my original consult note for full details. Briefly, she has a complex PMH, including prior bilateral spontaneous hemothoraces (hospitalized at [facility] December 2021), multiple pulmonary emboli, bronchiectasis, moderate-severe aortic stenosis, rheumatoidarthritis (on immunosuppression), prior psoriatic arthritis, atrial fibrillation, multiple hospitalization for pneumonia, anxiety, diastolic dysfunction, and a left nephrectomy 07/11/2021 for staghorncalculus. For her airway clearance she does 7% sodium chloride nebs plus albuterol b.i.d. She has quite prolonged coughing after her neb treatments. She is wondering if the 7% saline nebs are contributing. Shehas been using her Aerobika at least BID. At her prior visit, her spirometry was relatively normal,but her DLCO was 50%. She tends to get recurrent respiratory infections. She has been coughing up various colors of sputum. She coughs a lot. She needs to hold her sternum when having more intense coughing. She has shortness of breath with any exertion. No recent URIs or wheezing. She breaths through her mouth. No fevers or chills. She feels fatigued. Her weight has been stable. She notes to feelings of depression, which make it difficult for her to adhere to her airway clearance regimen. Her multiple medical issues have been hard for her to manage. She has been using a cane/walker due to balance issues. She lives with her daughter, who has been very helpful. When discussing goals of care, they both note she is DNR/DNI. Her wishes have been updated since her advance directive from 2017. She is a lifelong nonsmoker. OBJECTIVE: Pulse (!) 104 Ht 5' 3 (1.6 m) Wt 160 lb (72.6 kg) SpO2 98% BMI 28.34 kg/m?? General: Alert, NAD, able to speak in full sentences HEENT: Sclerae anicteric, MMM Lungs: Scattered crackles bilaterally CV: RRR Neuro: Appropriate with questions. RESULTS: Prior sputum culture (Jul 2022, performed at lab outside [facility]): Positive for Strep (not pneumoniae) and Haemophilus influenza CT chest (today), images reviewed by me with the patient: 1. New tree-in-bud nodularity in the upper lobes and left lower lobe. New larger nodular opacities in the right upper and lower lobes. 2. No significant change in mild diffuse bronchiectasis with bronchial wall thickening and mucus plugging in the left lower lobe, suggesting superimposed bronchitis. 3. Small bilateral pleural effusions with mild bilateral lower lobe atelectasis. 4. Unchanged low density paravertebral nodules in the chest. Stability since the prior exam favors benign etiology such as dilated lymphatics or extramedullary hematopoiesis. Recommend continued attention on follow-up exams. PFTs (today): FVC 74%, FEV1 65%, and ratio 69, consistent with moderate obstruction. DLCO 52%. Decreased since March 2022. ASSESSMENT: 1) Bronchiectasis: Predominantly in bilateral lower lobes on CT from January 2022. On Aerobika, 7% saline, and albuterol nebs BID. Last pneumonia was December 2021, but sputum culture from Jul 2022 with H. flu and Strep. Chronic productive cough. 2) ILD: ? Mild ILD, which could be due to RA vs MTX vs prior pneumonias. 3) Bilateral tree-in-bud infiltrates: Concerning for infection, such as atypical Mycobacterial infection. Lifelong non-smoker 4) Chronic cough: Due to bronchiectasis and recurrent infections. 5) Fractionization of care 6) History of PE: On anticoagulation. Hospitalized at [facility] March 2021 7) History bilateral hemothoraces: Hospitalized at [facility] December 2021. Chest tube on right. Improved onCT from January 2022. 8) Parakeet exposure (2019): Now removed from home. 9) Immunosuppressed status: Due to RA treatment with prednisone, Enbrel, and MTX. 10) Small bilateral pleural effusions: Etiology unclear. 11) DNR/DNI code status: Discussed today. RECOMMENDATIONS: 1) Reviewed symptoms, diagnosis, and treatment of bronchiectasis 2) Previously given a printed handout on bronchiectasis 3) Change 7% saline to 3% saline and use BID with albuterol nebs 4) Use Aerobika BID 5) Repeat sputum culture for AFB, fungal, and routine cultures 6) Start Mucinex BID 7) Continue baseline prednisone 7.5mg daily (for RA) 8) Start Dulera (ICS/LABA inhaler) 2 puffs BID. Given a spacer to use. 8) If bronchiectasis worsens, check immunoglobulin levels and alpha 1 antitrypsin level 9) Consider bronch if patient not improving. 10) Start pulmonary rehab 11) She will mail in updated POLST Return to pulmonary clinic ([facility]) in 6 months with cherelle/DLCO and CT chest, sooner PRN. Shraa Arango MD 10/22/2022 Total time: 65 minutes ADDENDUM: Called patient on 10/28/[address] chest results in more detail. I would like her to drop off a sputum sample at [facility] for AFB, funga, and routine cultures. documented in this encounter Plan of Treatment Scheduled Orders Name Type Priority Associated Diagnoses Orde r Schedule Spirometry with Diffusion PFT Routine Bronchiectasis, uncomplicated (HRC) Expected: 04/23/2023, Expires: 10/22/2023 Sputum Culture & Smear (Sputum, Expectorated) Microbiology Routine Bronchiectasis, uncomplicated (HRC) Lung infiltrate Ordered: 10/28/2022 Fungus Culture (Sputum) Microbiology Routine Bronchiectasis, uncomplicated (HRC) Lung infiltrate Ordered: 10/28/2022 CT Chest WO IV Cont Imaging New Routine Bronchiectasis, uncomplicated (HRC) Lung infiltrate Expected: 04/30/2023 (Approximate), Expires: 04/29/2024 Scheduled Referrals Name Type Priority Associated Diagnoses Orde r Schedule Pulmonary Rehab Referral Routine Bronchiectasis, uncomplicated (HRC) Ordered: 10/22/2022 documented as of this encounter Visit Diagnoses Diagnosis Bronchiectasis, uncomplicated (HRC)- Primary Chronic cough Cough Lung infiltrate Other nonspecific abnormal finding of lung field DNR (do not resuscitate) Do not resuscitate status Pulmonary nodules/lesions, multiple Other nonspecific abnormal finding of lung field documented in this encounter Care Teams [employer] Planners Relationship Specialty Start Date End Date Basilio Healy MD [facility] [address] [place] [address] PCP - General Family Practice 10/28/22 documented as of this encounter
--- OUTSIDE RECORDS SUMMARY | 2023-07-16 14:51 | XMS_ITS | Encounter Summary ---
Author Name Unknown Organization [facility] Address [address], [place] [address] Care Team Providers Care Case Resource Manager Name Role Phone Basilio Healy MD Primary Care Provider [phone] Reason for Visit * Reason Comments Symptoms Encounter Details Date Type Department Care Team Description 10/29/2022 Telephone Specialty Center 3931 Pulmonary Medicine [address] [place], [place] [phone] Shara Mitchell MD [address] [facility] [address] [place], [place] [phone] Symptoms Social History Tobacco Use Types Packs/Day [...] Nursing Notes * Shara Mitchell MD - 10/29/2022 1:39 PM CDT I talked to her on the phone. She should be doing all of her airway clearance techniques (nebs, Aerobika, Mucinex, etc). I will send a Rx for doxycycline to her pharmacy, although it would be great to get her sputum culture to the lab prior to starting this. However, if her symptoms continue to worsen, okay to start doxycycline even if she has not yet collected her sputum sample. We mailed her some sputum cups yesterday to drop off a sample in [place]. So, she should be receiving those soon. Thanks. * Tosha Calero LPN - 10/29/2022 12:26 PM CDT Pt calling to report that her sputum has changed from a lemon yellow to a light green in color, pt current temp is 98.3 F orally, this up from baseline of 97.[address] Mitchell, please advise on next steps. Thank you documented in this encounter Plan of Treatment Not on file documented as of this encounter Visit Diagnoses Diagnosis Acute bronchitis, unspecified organism- Primary documented in this encounter Care Teams Case Resource Manager Relationship Specialty Start Date End Date Basilio Healy MD [facility] [address] [place] [address] PCP - General Family Practice 10/28/22 documented as of this encounter
--- OUTSIDE RECORDS SUMMARY | 2023-07-16 14:51 | XMS_ITS | Encounter Summary ---
Author Name Unknown Organization [facility] Address [address] [place] [address] Care Team Providers Care Well Shooter Name Role Phone Unavailable Primary Care Provider Unavailabl e Reason for Visit * Procedure/Equipment (Routine) - Incomplete Specialty Diagnoses / Procedures Referred By Contac t Referred To Contact Procedures Foreign Image(S) XR Chest Provider, Foreign Images [address] [place] [address] Referral ID Status Reason Start Date Expiration Date V isits Requested Visits Authorized [id number] Incomplete 09/23/2022 12/23/2023 1 1 Encounter Details Date Type Department Care Team Description 08/03/2022 8:55 AM RN FLOAT Ancillary Procedure [facility] [address]ACS [address] [place] [address] Provider, Foreign Images [address] [place] [address] Social History Tobacco Use Types Packs/Day Years [...] Diagnosis Comments FOREIGN IMAGE(S) XR CHEST Routine 08/03/2022 8:55 AM RN FLOAT documented in this encounter Results * Foreign Image(S) XR Chest (08/03/2022 8:55 AM RN FLOAT) Narrative POCT - 09/23/2022 8:55 AM CDT These outside images have been uploaded into PACS. If the results were provided, they will be located in the patient's chart under the Media or Imaging tab. Foreign Images Provider RAD NON-REPORTAB LES POCT documented in this encounter Visit Diagnoses Not on filedocumented in this encounter
--- OUTSIDE RECORDS SUMMARY | 2023-07-16 14:51 | XMS_ITS | Encounter Summary ---
Author Name Unknown Organization [facility] Address [address] [place] [address] Care Team Providers Care Dye House Vat Worker Name Role Phone Basilio Healy MD Primary Care Provider [phone] Reason for Visit * Reason Comments Prior Authorization For Medication Encounter Details Date Type Department Care Team Description 11/04/2022 Telephone [facility] Pulmonary Medicine [address] [place], [place] [phone] Shara Mitchell MD [address] [facility] [address] [place], [place] [phone] Prior Authorization For Medication Social History Tobacco Use Types Packs/Day Years [...] Nursing Notes * Rochelle Lynch RN - 11/04/2022 12:54 PM CDT Dulera is not covered. Pt got letter. Will change to covered medication advair hfa. Changed per standing order. documented in this encounter Plan of Treatment Not on file documented as of this encounter Visit Diagnoses Not on filedocumented in this encounter Care Teams Dye House Vat Worker Relationship Specialty Start Date End Date Basilio Healy MD [facility] [address] [place] [address] PCP - General Family Practice 10/28/22 documented as of this encounter
--- OUTSIDE RECORDS SUMMARY | 2023-07-16 14:51 | XMS_ITS | Encounter Summary ---
Author Name Unknown Organization [facility] Address [address], [place] [address] Care Team Providers Care License Clerk Name Role Phone Unavailable Primary Care Provider Unavailabl e Reason for Visit * Reason Comments Phone Visit Encounter Details Date Type Department Care Team Description 10/08/2022 12:30 PM CDT Phone Visit [facility] [address] [place], [place] [address] Man Sánchez MD [address] [place] [address] Rheumatoid arthritis involving multiple joints (HRC) (Primary Dx); High risk medication use; Primary osteoarthritis of both knees; Current chronic use of systemic steroids; Age related osteoporosis, unspecified pathological fracture presence (HRC); Osteopenia of hip, unspecified laterality; Transaminitis Social History Tobacco Use Types Packs/Day [...] Progress Notes * Man Sánchez MD - 10/08/2022 12:30 PM CDT Rheumatology Follow up Note This is a phone visit. Patient is located at home. Physician is located in the clinic. HPI: Tanner James is a 77 y.o. female with medical history as stated below including longstanding history of seronegative inflammatory arthritis with high suspicion for rheumatoid arthritis is scheduled today for follow-up. Patient was not able to arrange for transportation so she converted to a phone visit. Complains of increased generalized joint pain. Complains of left knee pain, left shoulder pain and right hand pain. Symptoms are worse in the morning with morning stiffness lasting 2-3 hours. Currently on prednisone 7.5 mg daily and methotrexate 7 tablets once a week. On her last appointment methotrexate was increased from 6-7 tablets. Patient does not see any change in her joint symptoms. Also she is not sure if there was any benefit in her joint symptoms while on higher dose of systemic prednisone. Denies any red hot swollen joints. Currently on hydrocodone as per PCP. Patient has a history of GI bleed and has been avoiding NSAIDs. Previously tried Tylenol with no significant benefit. Currently patient is on apixaban. Patient had a DEXA scan yesterday. Patient Active Problem List Diagnosis Psoriatic arthropathy [...] valvular disease (HRC) Immunosuppression (HRC) Chronic cough Past Medical History: Diagnosis Date ETOH abuse went through rehab 2007 Gastritis 03/2009 Hypertension (HRC) 04/13/2009 Kidney stone LBP (low back pain) Morbid obesity with BMI of 40.0-44.9, adult ([facility]) 11/15/2015 Pneumonia 12/10/2016 with PE Pulmonary embolism ([facility]) 12/14/2016 Rheumatoid arthritis(714.0) ([facility]) 12/25/2008 Shoulder impingement 04/03/2013 Past Surgical History: Procedure Laterality Date COLONOSCOPY W/ POLYPECTOMY ([facility]) 10/26/2018 2 specimens (5 polyp). 3 year follow up ESOPHAGOGASTRODUODENOSCOPY ([facility]) 04/14/09 eswl LUMBAR FUSION ([facility]) 04/2010 lami and fusion; Dr Corea Outpatient Encounter Medications as of 10/08/2022 Medication Sig Dispense Refill albuterol 2.5 mg/3 mL, 0.083%, (PROVENTIL) nebulizer solution 1 Vial (2.5 mg) by Nebulization routeevery 6 hours as needed for Wheezing. 180 mL 11 alendronate (FOSAMAX) 70 MG tablet Take 1 Tablet (70 mg) by mouth once every week. Take 30 minutes before first uses-cxrma-zkqxgqsmzq. Avoid lying down for 30 minutes. 13 Tablet 3 Apixaban (ELIQUIS OR) 2.5 mg two times a day. Ascorbic Acid (VITAMIN C OR) ascorbic acid (VITAMINC) 250 MG tablet Take 1 Tablet (250 mg) by mouth daily. Cholecalciferol 2000 UNITS Take 2,000 Int'l Units by mouth daily. ferrous gluconate (FERGON) 324 (38 Fe) MG tablet Take 1 Tablet (324 mg) by mouth daily. folic acid 1 MG tablet Take 3 Tablets (3 mg) by mouth daily. 270 Tablet 3 gabapentin (NEURONTIN) 100 MG capsule 100 mg at bedtime for a week, than 200 mg at bedtime the second week, than 300 mg at bedtime thereafter. 90 Capsule 5 guaiFENesin (MUCINEX) 600 MG 12 hour release tablet Take 2 Tablets (1,200 mg) by mouth two times a day. 60 Tablet 11 HYDROcodone-acetaminophen (NORCO) 5-325 MG tablet TAKE 1 TABLET BY MOUTH EVERY 6 HOURS NEEDED. FOR PAIN 90 Tablet 0 methotrexate 2.5 MG tablet Take 7 Tablets (17.5 mg) by mouth once every week. 91 Tablet 1 Multiple Vitamins-Minerals (MULTIVITAMIN ADULT OR) Take 1 tablet by mouth daily (every 24 hours). predniSONE (DELTASONE) 5 MG tablet Take 1.5 Tablets (7.5 mg) by mouth daily. Take 10 mg in the morning once a day as needed for joint pain. 135 Tablet 1 Probiotic Product (SUPER PROBIOTIC OR) daily. rosuvastatin (CRESTOR) 5 MG tablet Take 1 Tablet (5 mg) by mouth daily. sodium chloride 7 % nebulizer solution Inhale 4 mL two times a day. 240 mL 11 valGANciclovir (VALCYTE) 450 MG tablet Take 1 Tablet (450 mg) by mouth daily. [DISCONTINUED] alendronate (FOSAMAX) 70 MG tablet Take 70 mg by mouth once every week. Take 30 minutes before first zeky-vpoty-nakqhslmwn. Avoid lying down for 30 minutes. (Patient not taking: Reported on 02/02/2022) [DISCONTINUED] allopurinol (ZYLOPRIM) 300 MG tablet Take 300 mg by mouth. (Patient not taking: Reported on 02/02/2022) [DISCONTINUED] ATENolol (TENORMIN) 25 MG tablet Take 1 tablet by mouth daily (every 24 hours). LW Comment:taking for jitteriness LW Addl Instr:given by Dr Monet at [facility] (Patient not taking: Reported on 02/02/2022) 90 3 [DISCONTINUED] Biotin Take 5,000 mcg by mouth daily (every 24 hours). (Patient not taking: Reportedon 02/02/2022) [DISCONTINUED] doxycycline monohydrate (MONODOX) 100 MG capsule Take 1 Capsule (100 mg) by mouth two times a day. 20 Capsule 3 [DISCONTINUED] etanercept (ENBREL) 50 MG/ML pen injection Inject 50 mg subcutaneously once a week. Indications: Rheumatoid Arthritis, M06.9 (Patient not taking: Reported on 02/02/2022) 12 Each 3 [DISCONTINUED] methotrexate 2.5 MG tablet Take 7 Tablets (17.5 mg) by mouth once every week. 91 Tablet 1 [DISCONTINUED] omeprazole (PRILOSEC) 20 MG capsule Indications: PN: MERNA WALKER WedNovember 04, 2015 9:19 AM Received from: External Pharmacy. Takes every other day (Patient not taking: Reported on 02/02/2022) 1 [DISCONTINUED] predniSONE (DELTASONE) 10 MG tablet Take 4 tabs daily x3 days, 3 tabs daily x3 days,2 tabs daily x3 days, 1 tab daily x3 days, then resume usual 7.5mg daily dose 30 Tablet 0 No facility-administered encounter medications on file as of 10/08/2022. Allergies Allergen Reactions Nsaids Other, see comments HUT Reaction: GI Bleeding; HUT Severity: High; HUT Noted: [id number] Levaquin [Levofloxacin] Other, see comments Muscles snapped Terbinafine Muscle Aches/Weakness Social History Substance and Sexual Activity Alcohol Use No Alcohol/week: 0.0 standard drinks Comment: Went through treatment for alcoholism in 2007 - had been a very functional alcoholic Social History Tobacco Use Smoking Status Never Smokeless Tobacco Never EXAM This is a phone visit, not able to do physical exam. Lab: Lab Results Component Value Date EXT RSLT - WBC 6.55 05/04/2022 RBC 3.99 02/02/2022 EXT RSLT - HGB 12.7 05/04/2022 HCT 38.9 02/02/2022 MCV 97.5 02/02/2022 RDW 18.0 (H) 02/02/2022 EXT RSLT - PLATELET COUNT 153 05/04/2022 Lab Results Component Value Date EST RSLT - AST 39 (H) 05/04/2022 Lab Results Component Value Date EXT RSLT - CREATININE 1.2 05/04/2022 Assessment and Plan: Recent blood work showed normal kidney function, normal CBC, mild elevation of AST, normal ALT. Patient with longstanding history of seronegative inflammatory arthritis/rheumatoid arthritis and generalized osteoarthritis has been complaining of generalized joint pain. Did not see much benefit from increasing methotrexate to 7 tablets once a week and also did not seemuch benefit from being on prednisone 10 mg daily. Recently prednisone was decreased to 7.5 mg daily with no significant change in her joint symptoms. Not able to do a physical exam today since this is a phone visit. Suspect a component of generalized osteoarthritis contributing to her symptoms. Not a good candidate for systemic NSAIDs secondary to being on blood thinners and history of GI bleeding. Patient is on hydrocodone as per PCP. Recommend using topical treatment like Voltaren gel or Aspercreme with lidocaine cream 3-4 times daily. Patient had a DEXA scan today. DEXA scan reviewed by me shows osteopenia in the hip with a T-score of-1.9 in the femoral neck. The lumbar spine is excluded from the reading secondary to degenerative changes and hardware. FRAX score calculated by me shows 10 year major osteoporotic fracture is 29%, hip fracture risk 13%qualifying her for osteoporosis treatment. Patient has osteoporosis and she is at high risk for fragility fractures. Patient is on systemic prednisone for many years which can contribute to worsening of the osteoporosis. Discussed with the patient treatment options, risks and benefits. The decision was made to start treatment with Fosamax therapy once a week. Recommend taking calcium and vitamin-D supplement daily. Recommend weight-bearing exercise and strengthening activities of the lower extremities. Will repeat DEXA scan in 2 years to monitor bone mineral density and assess treatment outcome. Total of 30 minutes was spent with the patient on the phone. Total of 40 minutes was spent reviewing previous medical records, consulting patient and charting. Man Sánchez. Rheumatology [facility] This note consists of symbols derived from keyboarding, and voice recognition software. As a result, wrong word or '[id number]' substitutions may have occurred due to the inherent limitations of voice recognition software. There may be errors in the script that have gone undetected. Please consider this when interpreting information found in this chart. documented in this encounter Plan of Treatment Not on file documented as of this encounter Visit Diagnoses Diagnosis Rheumatoid arthritis involving multiple joints (HRC)- Primary High risk medication use Encounter for long-term (current) use of other medications Primary osteoarthritis of both knees Primary localized osteoarthrosis, lower leg Current chronic use of systemic steroids Age related osteoporosis, unspecified pathological fracture presence (HRC) Osteopenia of hip, unspecified laterality Transaminitis Nonspecific elevation of levels of transaminase or lactic acid dehydrogenase (LDH) documented in this encounter
--- OUTSIDE RECORDS SUMMARY | 2023-07-16 14:51 | XMS_ITS | Encounter Summary ---
Author Name Unknown Organization [facility] Address [address] [place] [address] Care Team Providers Care Net Web Application Developer Name Role Phone Unavailable Primary Care Provider Unavailabl e Reason for Visit * Reason Comments RESULTS, TEST Encounter Details Date Type Department Care Team Description 08/14/2022 Telephone Specialty Center 3931 Pulmonary Medicine [address] [place], [place] [phone] Shara Mitchell MD [address] [facility] [address] [place], [place] [phone] RESULTS, TEST Social History Tobacco Use Types [...] as of this encounter Nursing Notes * Vianney Dan RN - 08/21/2022 8:16 AM CST Images from the original note were not included. Shara Mitchell MD You; Rigoberto Zimmerman Nrsg-Pn 12 hours ago (7:44 PM) EM Please see if she is available for a video visit on Aug 24 at 8:30am, when I???m back in the office. Thanks. Called pt and scheduled her for a video visit on 08/24 at 8:30 am. ROFIT DIRECTOR * Vianney Dna RN - 08/19/2022 1:54 PM CST Called pt with this information. She said she just finished Bactrim DS 1 week ago. She's still coughing all day long and bringing up a dark yellow phlegm, but she said the cough is better than it was1 month ago. She feels very weak and has started using her walker again. She denies fever/chills, chest pain, wheezing, loss of taste smell, or sore throat. She reports losing her taste for about 2 we eks 1 month ago. She has some chest tightness when coughing, and she's SOB with activity and when talking for extended periods of time. She's on 7.5 mg of prednisone daily and uses her 7% sodium chloride nebs with albuterol BID. Dr. Mitchell, please advise if any action is needed. Thank you! ROFIT DIRECTOR * Shara Mitchell MD - 08/19/2022 10:12 AM CST It appears her sputum culture from 08/04/22 grew Haemophilus influenza and Strep. There is no antibiotic susceptibility testing on the Haemophilus. She has previously been treated with doxycycline on several occasional (Mar 2022, May 2022, and Jun 2022). Pulmonary RNs: Please call and see if she is still having respiratory symptoms. Has she taken any recent antibiotics? ROFIT DIRECTOR * Rochelle Lynch RN - 08/14/2022 7:45 AM CST Please review sputum culture. On sign board ROFIT DIRECTOR documented in this encounter Plan of Treatment Not on file documented as of this encounter Visit Diagnoses Not on filedocumented in this encounter
--- OUTSIDE RECORDS SUMMARY | 2023-07-16 14:51 | XMS_ITS | Encounter Summary ---
Author Name Unknown Organization [facility] Address [address] [place] [address] Care Team Providers Care Web Press Operator Helper Offset Name Role Phone Unavailable Primary Care Provider Unavailabl e Reason for Visit * Procedure/Equipment (Routine) - Incomplete Specialty Diagnoses / Procedures Referred By Contac t Referred To Contact Diagnoses Bronchiectasis, uncomplicated (HRC) Chronic cough Immunosuppression (HRC) Procedures CT Chest WO IV Cont Shara Mitchell MD [address] [address] Referral ID Status Reason Start Date Expiration Date V isits Requested Visits Authorized [id number] Incomplete 10/22/2022 01/21/2024 1 1 Encounter Details Date Type Department Care Team Description 10/22/2022 11:40 AM CDT Ancillary Procedure [place] [address] Scan [address] [place], [place] [address] Shara Mitchell MD [address] [id number] Bronchiectasis, uncomplicated (HRC); Chronic cough; Immunosuppression (HRC) Social History Tobacco Use Types Packs/Day Years [...] Procedure Name Priority Date/Time Associated Diagnosis Comments CT CHEST WO IV CONT Routine 10/22/2022 11:51 AM CDT Bronchiectasis, uncomplicated (HRC) Chronic cough Immunosuppression (HRC) documented in this encounter Results * CT Chest WO IV Cont (10/22/2022 11:51 AM CDT) Anatomical Region Laterality Modality Chest, Lung Computed Tomogra phy 10/22/2022 11:4 1 AM CDT Impressions 10/22/2022 1:54 PM CDT COMPARISON: 02/18/2020 TECHNIQUE: Noncontrast images were obtained through the chest. FINDINGS: CHEST WALL AND LOWER NECK: Unremarkable. LYMPHADENOPATHY: No mediastinal, hilar or axillary adenopathy. CARDIOMEDIASTINUM: Dense mitral annular calcification. Mild coronary and aortic vascular opacification. Multiple unchanged paraspinal low density paraspinal nodules, with the largest measuring 2.2 x 1.5 cm (series 4 slice 28). This is located along the right anterior aspect of the T9 vertebral body stability favors benign etiology. These could represent dilated lymphatics. VISUALIZED UPPER ABDOMEN: Postoperative changes of left nephrectomy. Decreased size of a now 1.8 x 3.3 cm left-sided retroperitoneal soft tissue density. Decrease in size compared to prior exam there is benign etiology. This could represent postoperative scarring. 3 mm nonobstructive calculus in the lower pole the right kidney. Multiple calcified granulomas in the spleen. BONES: Unremarkable. LUNG AND PLEURA: There is a new 6 x 7 mm nodular opacity at the anterior aspect of the right upper lobe (series 5 slice 25). There are also multiple new sub-6 mm tree-in-bud type opacities in the lateral aspect of the right upper lobe (series 5 slice 30-38). There are also new tree-in-bud opacities in the left upper lobe laterally and in the left lower lobe. There is also a 12 x 9 mm nodular opacity in the right lower lobe (slice 62). There is mild bronchiectasis throughout the lungs. There is associated bronchial wall thickening in the left lower lobe with areas of mucus plugging. There are small bilateral pleural effusions, with mild bilateral lower lobe atelectasis. IMPRESSION: 1. New tree-in-bud nodularity in the upper lobes and left lower lobe. New larger nodular opacities in the right upper and lower lobes. These findings are favored to represent an infectious/inflammatory process, however a short interval follow-up CT in 3-6 months is recommended to ensure resolution. 2. No significant change in mild diffuse [...] hematopoiesis. Recommend continued attention on follow-up exams. PN Consensus Recommendation for multiple solid nodule greater than 8 mm Low risk: CT Chest WO IV Cont at 3-6 months, then consider CT Chest WO IV Cont at 18-24 months. High risk (older age, smoking history, emphysema, fibrosis): CT Chest WO IV Cont at 3-6 months, then a CT Chest WO IV Cont at 18-24 months. PN Consensus Recommendations are not intended for patients younger than 35 years, patients that are immunocompromised or patients with cancer. Imaging follow-up for these patients should be based on the overall clinical picture. Recommend non-urgent pulmonary consultation. Abnormal findings requiring follow-up. ??Recommend: See above. Recommendation: Imaging follow-up. Narrative Procedure Note Aki Santana MD - 10/22/2022 IMPRESSION COMPARISON: 02/18/2020 TECHNIQUE: Noncontrast images were obtained through the chest. FINDINGS: CHEST WALL AND LOWER NECK: Unremarkable. LYMPHADENOPATHY: No mediastinal, hilar or axillary adenopathy. CARDIOMEDIASTINUM: Dense mitral annular calcification. Mild coronary andaortic vascular opacification. Multiple unchanged paraspinal low densityparaspinal nodules, with the largest measuring 2.2 x 1.5 cm (series 4slice 28). This is located along the right anterior aspect of the E7rjrnffhze body stability favors benign etiology. These could representdilated lymphatics. VISUALIZED UPPER ABDOMEN: Postoperative changes of left nephrectomy.Decreased size of a now 1.8 x 3.3 cm left-sided retroperitoneal softtissue density. Decrease in size compared to prior exam there is benignetiology. This could represent postoperative scarring. 3 mm nonobstructivecalculus in the lower pole the right kidney. Multiple calcified granulomasin the spleen. BONES: Unremarkable. LUNG AND PLEURA: There is a new 6 x 7 mm nodular opacity at the anterioraspect of the right upper lobe (series 5 slice 25). There are alsomultiple new sub-6 mm tree-in-bud type opacities in the lateral aspect ofthe right upper lobe (series 5 slice 30- 38). There are also sbwluwn-oo-jlm opacities in the left upper lobe laterally and in the leftlower lobe. There is also a 12 x 9 mm nodular opacity in the right lowerlobe (slice 62). There is mild bronchiectasis throughout the lungs. Thereis associated bronchial wall thickening in the left lower lobe with areasof mucus plugging. There are small bilateral pleural effusions, with mildbilateral lower lobe atelectasis. IMPRESSION: 1. New tree-in-bud nodularity in the upper lobes and left lower lobe. Newlarger nodular opacities in the right upper and lower lobes. Thesefindings are favored to represent an infectious/inflammatory process,however a short interval follow-up CT in 3-6 months is recommended toensure resolution. 2. No significant change in mild diffuse bronchiectasis with bronchialwall thickening and mucus plugging in the left lower lobe, suggestingsuperimposed bronchitis. 3. Small bilateral pleural effusions with mild bilateral lower lobeatelectasis. 4. Unchanged low density paravertebral nodules in the chest. Stabilitysince the prior exam favors benign etiology such as dilated lymphatics orextramedullary hematopoiesis. Recommend continued attention on follow-upexams. PN Consensus Recommendation for multiple solid nodule greater than 8 mm Low risk: CT Chest WO IV Cont at 3-6 months, then consider CT Chest WO IVCont at 18-24 months. High risk (older age, smoking history, emphysema, fibrosis): CT Chest WOIV Cont at 3-6 months, then a CT Chest WO IV Cont at 18-24 months. PN Consensus Recommendations are not intended for patients younger than 35years, patients that are immunocompromised or patients with cancer.Imaging follow-up for these patients should be based on the overallclinical picture. Recommend non-urgent pulmonary consultation. Abnormal findings requiring follow-up. Recommend: See above. Recommendation: Imaging follow-up. Shara Mitchell MD RAD CT documented in this encounter Visit Diagnoses Diagnosis Bronchiectasis, uncomplicated (HRC) Chronic cough Cough Immunosuppression (HRC) Unspecified disorder of immune mechanism documented in this encounter
--- OUTSIDE RECORDS SUMMARY | 2023-07-16 14:51 | XMS_ITS | Encounter Summary ---
Author Name Unknown Organization [facility] Address [address] [place] [address] Care Team Providers Care Sterile Process Tech Name Role Phone Unavailable Primary Care Provider Unavailabl e Reason for Visit * Procedure/Equipment (Routine) - Incomplete Specialty Diagnoses / Procedures Referred By Contac t Referred To Contact Diagnoses Rheumatoid arthritis involving multiple joints (HRC) High risk medication use Current chronic use of systemic steroids Screening for osteoporosis Procedures DXA Bone Density Spine/Hip Inc Bon'Appt FX Assess DXA Bone Density Spine/Hip Man Sánchez MD [address] [place] [address] Referral ID Status Reason Start Date Expiration Date V isits Requested Visits Authorized [id number] Incomplete 05/07/2022 08/06/2023 1 1 Encounter Details Date Type Department Care Team Description 10/07/2022 4:00 PM CDT Ancillary Procedure [facility] [facility] [address] [place] [address] Man Sánchez MD [address] [place], [place] [address] Rheumatoid arthritis involving multiple joints (HRC); High risk medication use; Current chronic use of systemic steroids; Screening for osteoporosis Social History Tobacco Use Types Packs/Day Years [...] Procedure Name Priority Date/Time Associated Diagnosis Comments DXA BONE DENSITY SPINE/HIP INC VERT FX ASSESS Routine 10/07/2022 3:48 PM CDT Rheumatoid arthritis involving multiple joints (HRC) High risk medication use Current chronic use of systemic steroids Screening for osteoporosis documented in this encounter Results * DXA Bone Density Spine/Hip Inc Vert FX Assess (10/07/2022 3:48 PM CDT) DXA Hip Left Bone Mineral Density 0.825 gm/cm2 EXTERNAL RESULTS DXA Hip Left T-Score -1.0 EXTERNAL RESULTS DXA Hip Left Z-Score 0.8 EXTERNAL RESULTS DXA Femur Left Bone Mineral Density 0.643 gm/cm2 EXTERNAL RESULTS DXA Femur Left T-Score -1.9 EXTERNAL RESULTS DXA Femur Left Z-Score 0.2 EXTERNAL RESULTS Anatomical Region Laterality Modality Spine, Hip Radiographic Karolyn ging Narrative 10/07/2022 4:24 PM CDT Table formatting from the original result was not included. Patient Name: Tanner James Densitometer: [employer] W Appt Dept/Resource: [facility]ensity GRANDA BONE Demographics Age: 77 y.o. Gender: Female Height: 5' 3 (1.6 m) Height at age 27: 5.5 Weight: 161 lb (73 kg) Race: Medical/Surgical History Menstrual periods: None Age of menopause: 47 ?? Able to stand from a chair easily without use of the arms?: Yes, with difficulty How many falls indoors/outdoors within the last 12 months?: 0 History of fractures in parents: No History of previous fractures?: Yes Location: Spine Hip replacement?: No Oral cortisone or steroid medication for more than 3 months?: Yes, currently ?? At least 5 mg prednisone or equivalent?: Yes Currently or have taken medications to treat osteoporosis?: No ?? Taking any aromatase inhibitor medication for breast cancer - anti-estrogen excluding tamoxifen?: No ?? Have had the following medical conditions: Rheumatoid Arthritis Dietary/Habit Alcohol 3 units or more per day on average?: No Currently smoking tobacco? No Daily servings of calcium rich food: 1 Do you take a daily calcium supplement?: Yes, once per day Dual-X-ray Absorptiometry (DXA) Results Skeletal Site BMD (gm/cm2) T-Score Z-Score % Change from Previous Scan dated: N/A Spine (Not Scanned) N/A N/A N/A N/A Left Hip (Total) 0.825 -1.0 0.8 N/A Left Hip (Femoral neck) 0.643 -1.9 0.2 N/A Right Hip (Total) N/A N/A N/A N/A Right Hip (Femoral neck) N/A N/A N/A N/A Forearm (/) (Not Scanned) N/A N/A N/A N/A ??*N/A indicates that measurements were either not needed or not valid TBS: Trabecular Bone Score (TBS): 1.588 FRAX Score: 10 Year Risk Hip Fracture: 9.9% 10 Year Risk Major Osteoporotic Fracture: 34% (variables included prior fracture, rheumatoid arthritis and chronic prednisone use) VERTEBRAL FRACTURE ASSESSMENT Spinal fixation hardware in the lower lumbar spine Comments: *This is a baseline study at this center (no comparison) Lumbar spine bone density is not reported because of the presence of spinal fixation hardware and considerable degenerative change falsely elevating bone density Diagnosis: *Osteopenia of left hip. Patient has a high risk of fracture Recommendations:. In the setting of FRAX score > 20%, as in this case, one can consider pharmacotherapy for low bone mass to reduce fracture risk. ??Clinical correlation needed. ??Consider repeat bone density in 2 years or as clinically indicated. FRAX Explanation: The 10 year risks of hip and major osteoporotic fractures (clinical spine, forearm, hip or shoulder fracture) are calculated by the FRAX algorithm based on femoral neck bone density, age, gender, race/ethnicity, weight, height, previous fracture, parental hip fracture, smoking status, glucocorticoid intake, history of RA, secondary osteoporosis, and high alcohol consumption. FRAX fracture risk estimates are adjusted for Trabecular Bone Score (TBS) when available. Trabecular Bone Score (TBS) is a measure of the microarchitectural integrity of trabecular bone, and is derived from the [id number] changes of bone density embedded in the AP spine BMD image. TBS is only modestly correlated with BMD, and is modestly associated with incident major osteoporotic and hip fractures independent of BMD and other risk factors. FRAX Fracture Risk Categories in terms of major osteoporotic fractures: < 10% = low fracture risk ? 10% and <15% = mildly increased fracture risk ? 15% and <20% = moderately increased fracture risk ? 20% and <30% = high fracture risk ? 30% = very high fracture risk National Osteoporosis Foundation Treatment Guideline A clinician may consider FDA-approved medical therapies in postmenopausal women and men aged 50 years and older, if one or more of the following is present (clinical correlation required and therapy may not always be indicated): 1. The patient has a hip or vertebral fracture. 2. T-score ? -2.5 at the femoral neck, hip, or spine after appropriate evaluation to exclude secondary causes. 3. Low bone mass (T-score between -1.0 and -2.5 at the femoral neck, hip or spine) and a 10-year probability of a hip fracture ? 3% or a 10-year probability of a major osteoporosis-related fracture ? 20% based on the FRAX scores. ?? Man Sánchez MD RAD DEXA documented in this encounter Visit Diagnoses Diagnosis Rheumatoid arthritis involving multiple joints (HRC) High risk medication use Encounter for long-term (current) use of other medications Current chronic use of systemic steroids Screening for osteoporosis Special screening for osteoporosis documented in this encounter
--- OUTSIDE RECORDS SUMMARY | 2023-07-16 14:51 | XMS_ITS | Encounter Summary ---
Author Name Unknown Organization [facility] Address [address] [place] [address] Care Team Providers Care Associate Chemist Name Role Phone Unavailable Primary Care Provider Unavailabl e Reason for Visit * Reason Comments Forms Encounter Details Date Type Department Care Team Description 08/24/2022 Telephone [facility] [address] Pulmonary Medicine [address] [place], [place] [phone] Shara Mitchell MD [address] [facility] [address] [place], [place] [address] Forms Social History Tobacco Use Types Packs/Day Years [...] of this encounter Nursing Notes * Rochelle Lynch, PEEWEE - 09/16/2022 2:26 PM CDT [facility] will send cd with cxr s * Nieves Sylvester RN - 08/24/2022 1:48 PM CST CLAU mailed to pt with business reply letter per request from Dr. Mitchell. Pt seen virtually today and states CXR was done through [facility] within the last month which is not accessible through [facility]. BEATER documented in this encounter Plan of Treatment Not on file documented as of this encounter Visit Diagnoses Not on filedocumented in this encounter
--- OUTSIDE RECORDS SUMMARY | 2023-07-16 14:51 | XMS_ITS | Encounter Summary ---
Author Name Unknown Organization [facility] Address [address] [address] Care Team Providers Care Associate Professor Of Chemistry Name Role Phone Unavailable Primary Care Provider Unavailabl e Reason for Visit * Reason Comments Follow-up Encounter Details Date Type Department Care Team Description 08/24/2022 8:30 AM MOLDED GRID AND PARTS INSPECTOR [facility] 39[address] Pulmonary Medicine [address] [place], [place] [phone] Shara Mitchell MD [address] [facility] [address] [place], [place] [address] Acute exacerbation of bronchiectasis (HRC) (Primary Dx); Acute sinusitis, recurrence not specified, unspecified location; Post-nasal drainage Social History Tobacco Use Types Packs/Day Years [...] Pressure - - Pulse - - Temperature - - Respiratory Rate - - Oxygen Saturation - - Inhaled Oxygen Concentration - - Weight 73 kg (161 lb) 08/21/2022 3:48 PM MOLDED GRID AND PARTS INSPECTOR Height 160 cm (5' 3) 08/21/2022 3:48 PM MOLDED GRID AND PARTS INSPECTOR Body Mass Index 28.52 08/21/2022 3:48 PM MOLDED GRID AND PARTS INSPECTOR documented in this encounter Patient Instructions * Patient Instructions* Shara Mitchell MD - 08/24/2022 8:30 AM MOLDED GRID AND PARTS INSPECTOR Take Augmentin twice a day for 10 days Take azithromycin for 5 days Take prednisone taper as follows: 40 mg daily for 3 days, 30 mg daily for 3 days, 20 mg daily for 3days, 10 mg daily for 3 days, then resume your usual 7.5 mg daily dose Use NeilMed nasal saline irrigation once to twice daily to help with nasal congestion, postnasal drainage, and cough Your recent sputum culture grew Strep and Haemophilus I will try to obtain your recent chest xray results from the [facility] ED GRID AND PARTS INSPECTOR documented in this encounter Progress Notes * Shara Mitchell MD - 08/24/2022 8:30 AM CST PULMONARY FOLLOW-UP REASON FOR VISIT: Tanner James is a 77 y.o. female is having a video visit today follow up of bronchiectasis with increased respiratory symptoms SUBJECTIVE: Unfortunately she was not able to get the video system to work, and we needed to convert to a telephone visit. She was previously seen by me in initial consultation to establish care for bronchiectasis on 04/23/22. She had been previously followed at [facility]. Please see my original consult note for full details. 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 For her airway clearance she does 7% sodium chloride nebs plus albuterol b.i.d. At her last visit, she was asked to start Aerobika BID. She is not on any inhalers. At her prior visit, her spirometry was relatively normal, but her DLCO was 50%. She tends to get recurrent respiratory infections. She has taken doxycycline 3 times since her lastvisit (March 2022, May 2022, and June 2022). It tends to help temporarily. She got a bad respiratory infection in May 2022 and has been coughing more since then. She has also had persistent nasal congestion since that time. In the morning she will cough up brownish to greenish sputumand then it tends to turn more yellow-green throughout the day. She was recently given a prescription for Bactrim DS by her primary earlier in July, which also seemed to help a little. She previously had a CXR at [facility] within the last month (done through her primary clinic), but wasnot sure of the results. Currently, she still has a productive cough of yellow-green sputum. She has persistent nasal congestion and for the last 2 days has had epistaxis. She does not use any nasal sprays or nasal saline irrigation. She has shortness of breath with any exertion. No fevers, night sweats, wheezing, or chestpain outside of coughing. She notes to feelings of depression, which make it difficult for her to adhere to her airway clearance regimen. She has been trying to get at least once daily nebulizer treatments done, but does not always do them twice a day. Her multiple medical issues have been hard for her to manage. She also got a viral illness in her eye and is unable to see out of that eye. So, she cannot drive.She lives with her daughter, who has been very helpful. OBJECTIVE: PHONE VISIT General: Does not sound in acute distress, intermittent congested sounding cough, sounds like she has nasal congestion, able to speak in full sentences Neuro: Appropriate with questions. RESULTS: Recent sputum culture (performed at lab outside [facility]): Positive for Strep (not pneumoniae)and Haemophilus influenza ASSESSMENT: 1) Bronchiectasis: Current acute exacerbation. Predominantly in bilateral lower lobes on CT from January 2022. On 7% saline and albuterol nebs BID, but only doing daily recently. Has Aerobika at home and is supposed to use BID. Last pneumonia was December 2021. Chronic productive cough. Recent sputum culture with Haemophilus and Strep. 2) ILD: ? Mild ILD, which could be due to RA vs MTX vs prior pneumonias. Attention at follow-up. 3) Lifelong non-smoker 4) Chronic cough: Due to bronchiectasis. 5) Fractionization of care 6) History of PE: On anticoagulation. Hospitalized at [facility] March 2021 7) History bilateral hemothoraces: Hospitalized at [facility] December 2021. Chest tube on right. Improved onCT from January 2022. 8) Parakeet exposure (2019): Now removed from home. 9) Immunosuppressed status: Due to RA treatment with prednisone, Enbrel, and MTX. RECOMMENDATIONS: 1) Reviewed symptoms, diagnosis, and treatment of bronchiectasis 2) Previously given a printed handout on bronchiectasis 3) Try to use 7% saline and albuterol nebs BID consistently 4) Use Aerobika BID 5) Reviewed recent sputum culture 6) Take Augmentin BID for 10 days and a Zpak 7) Prednisone taper: 40mg daily for 3 days, 30mg daily for 3 days, 20mg daily for 3 days, 10mg daily for 3 days, then resume 7.5mg daily 8) If cough/dyspnea worsen, could consider a trial of ICS/LABA inhaler 8) If bronchiectasis worsens, check immunoglobulin levels and alpha 1 antitrypsin level 9) Consider addition of Mucinex if mucus is difficult to expectorate 10) Start Enzo Med nasal saline irrigation Return to pulmonary clinic ([place]) at previously scheduled visit in September 2022. Shara Mitchell MD 08/24/2022 Total time: 55 minutes ED GRID AND PARTS INSPECTOR documented in this encounter Plan of Treatment Not on file documented as of this encounter Visit Diagnoses Diagnosis Acute exacerbation of bronchiectasis (HRC)- Primary Bronchiectasis with acute exacerbation Acute sinusitis, recurrence not specified, unspecified location Post-nasal drainage Unspecified sinusitis (chronic) documented in this encounter
--- OUTSIDE RECORDS SUMMARY | 2023-07-16 14:51 | XMS_ITS | Encounter Summary ---
Author Name Unknown Organization [facility] Address [address] [place] [address] Care Team Providers Care Brazing Machine Operator Helper Name Role Phone Unavailable Primary Care Provider Unavailabl e Encounter Details Date Type Department Care Team Description 08/27/2022 Orders Only HIM DEPARTMENT Provider, [place] [address] Social History Tobacco Use Types Packs/Day Years [...] Priority Date/Time Associated Diagnosis Comments LABORATORY REPORT 08/27/2022 documented in this encounter Results * LABORATORY REPORT (08/27/2022) Interface Provider DUMMY/OTHER/AR documented in this encounter Visit Diagnoses Not on filedocumented in this encounter
--- OUTSIDE RECORDS SUMMARY | 2023-07-16 14:51 | XMS_ITS | Encounter Summary ---
Author Name Unknown Organization [facility] Address [address] [place] [address] Care Team Providers Care Mail Examiner Name Role Phone Unavailable Primary Care Provider Unavailabl e Encounter Details Date Type Department Care Team Description 10/22/2022 1:00 PM CDT Pulmonary Lab Visit PULMONARY LAB AT [address] [id number] Bronchiectasis, uncomplicated (HRC); Chronic cough Social History Tobacco Use Types Packs/Day Years [...] Procedure Name Priority Date/Time Associated Diagnosis Comments COMPLETE PULMONARY FUNCTION TEST Routine 10/22/2022 1:09 PM CDT Bronchiectasis, uncomplicated (HRC) Chronic cough documented in this encounter Results * Pulmonary Function Test - Complete (10/22/2022 1:09 PM CDT) 10/22/2022 1:09 PM CDT Shara Mitchell MD PN PFT ORDERABLES PN BREEZE documented in this encounter Visit Diagnoses Diagnosis Bronchiectasis, uncomplicated (HRC) Chronic cough Cough documented in this encounter
--- OUTSIDE RECORDS SUMMARY | 2023-07-16 14:51 | XMS_ITS | Encounter Summary ---
Author Name Unknown Organization [facility] Address [address] [place] [address] Care Team Providers Care Shop Repairer Name Role Phone Basilio Healy MD Primary Care Provider [phone] Reason for Visit * Reason Comments Refill Encounter Details Date Type Department Care Team Description 02/06/2016 Refill [facility] [address] [facility] [place], [place] [address] Swapnil Henley MD [address] [place] [address] Refill Social History Tobacco Use Types Packs/Day Years Used Date Smoking Tobacco: Never Assessed Sex and Gender Information Value Date Recorded Sex Assigned at Not on file Gender Identity Not on file Sexual Orientation Not on file documented as of this encounter Plan of Treatment Not on file documented as of this encounter Visit Diagnoses Not on filedocumented in this encounter Care Teams Shop Repairer Relationship Specialty Start Date End Date Basilio Healy MD [facility] [address] [place] [address] PCP - General Family Practice 10/28/22 documented as of this encounter
--- OUTSIDE RECORDS SUMMARY | 2023-07-16 14:51 | XMS_ITS | Encounter Summary ---
Author Name Unknown Organization [facility] Address [address] [place] [address] Care Team Providers Care Herb Doctor Name Role Phone Unavailable Primary Care Provider Unavailabl e Reason for Visit * Reason Comments Symptoms Encounter Details Date Type Department Care Team Description 10/01/2022 Telephone Specialty Center 3931 Pulmonary Medicine [address] [place], [place] [phone] Shara Mitchell MD [address] [facility] [address] [place], [place] [phone] Symptoms Social History Tobacco Use Types Packs/Day [...] as of this encounter Nursing Notes * Nieves Torres, RN - 10/01/2022 2:09 PM CDT Pt left a voicemail that she is having problems breathing and requesting call back. #[phone] Pt contacted. ER x2 in the last month. Feeling physically stronger today but is feeling depressed. Not using Aerobika d/t fatigue with cough and lack of sleep. Willing to try to use again but not really sure how. Instructions reviewed (also mailed to pt). Did encourage pt to talk with family and her PCP regarding depression. Lives with family. Agreeable to this. No further pulmonary questions at this time. Will keep appt on 10/22/22. documented in this encounter Plan of Treatment Not on file documented as of this encounter Visit Diagnoses Not on filedocumented in this encounter
--- OUTSIDE RECORDS SUMMARY | 2023-07-16 14:51 | XMS_ITS | Encounter Summary ---
Author Name Unknown Organization [facility] Address [address] [place] [address] Care Team Providers Care Instructor Kindergarten Name Role Phone Unavailable Primary Care Provider Unavailabl e Encounter Details Date Type Department Care Team Description 09/24/2022 Orders Only HIM DEPARTMENT Provider, MD [place] [address] Social History Tobacco Use Types Packs/Day Years [...] Priority Date/Time Associated Diagnosis Comments LABORATORY REPORT 09/24/2022 documented in this encounter Results * LABORATORY REPORT (09/24/2022) Interface Provider DUMMY/OTHER/AR documented in this encounter Visit Diagnoses Not on filedocumented in this encounter
--- OUTSIDE RECORDS SUMMARY | 2023-07-16 14:51 | XMS_ITS | Encounter Summary ---
Author Name Unknown Organization [facility] Address [address] [place] [address] Care Team Providers Care Traffic Rate Computer Name Role Phone Unavailable Primary Care Provider Unavailabl e Reason for Visit * Reason Comments QUESTIONS, GENERAL Encounter Details Date Type Department Care Team Description 08/21/2022 Telephone Specialty Center 3931 Pulmonary Medicine [address] [place], [place] [phone] Shara Mitchell MD [address] [facility] [address] [place], [place] [phone] QUESTIONS, GENERAL Social History Tobacco Use Types Packs/Day Years [...] as of this encounter Nursing Notes * Andreia Lovell - 08/21/2022 3:02 PM CST Called Tanner and gave instructions for video visit. She wasn't sure it would work so I put a noteto please do a phone call if video doesn't work URAL ANTHROPOLOGY PROFESSOR * Nieves Sylvester RN - 08/21/2022 2:49 PM CST Pt left a voicemail regarding questions with instructions for video appt on Thursday 08/24 @ 0830. Needs to discuss this today if possible. Ok for detailed voicemail. Frontline, can someone reach out to pt to discuss video instructions? Thank you! URAL ANTHROPOLOGY PROFESSOR documented in this encounter Plan of Treatment Not on file documented as of this encounter Visit Diagnoses Not on filedocumented in this encounter
== END 2023-07-16 14:47 | disposition home or self-care (01) ==
LOC: WOUND 14:46
PROVIDERS: PCP Family Medicine; Visit Provider Physician Assistant
DX: L89.894 Pressure ulcer of other site, stage 4 (principal)
CPT/HCPCS: 97597

== ENCOUNTER 2023-07-23 14:53 | Outpatient (CLI) | payer MEDICARE, OTHER, SELFPAY ==
--- OUTSIDE RECORDS SUMMARY | 2023-07-23 14:54 | XMS_ITS | Data Portability ---
Author Name Unknown Address [address] [place] [id number] Phone [phone] Organization [facility], [facility] Address [address] [place] [address] Assessment No assessment recorded. Plan of Treatment [...] with a nephrect gilmar. 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 Procedures Surgical History Date Name Laterality Status Provider Name and Address Organization Details Recorded Time 07/11/19 22 NEPHRECTOMY, HAND ASSISTED LAPAROSCOPIC (SURG) completed Mary moss [facility] 07/17/2021 09:46:04 Imaging Results None recorded. Procedure Notes None recorded. Medical Equipment None Reported. Allergies Allergen ID Allergen Name Allergen Category Reaction Reaction Severity Criticality Documentation Date Start Date Code Code System Note Provider Name and Address Organization Details Recorded Time 632035 Non-stero idal anti-infl ammatory agent (product) medicatio n Not available Not available Not available 03/20/2021 00870 005 SNOMED Lamont Bravo MD [address] [place] [address],[address] [place] [address], [phone], [facility] 1 16:22:56 [id number] Levaquin medicatio n Not available Not available Not available 03/20/2021 [id number] 2 Bree Bravo MD [address] [place] [address],[address], [phone], [facility] 1 16:23:24 [id number] levofloxa giorgio medicatio n other Not available Not available 08/11/20212021 56154 Bree Bravo MD [address] [place] [address],[address], [place], [phone], [facility] 2 16:06:24 [id number] terbinafi ne hydrochlo ride medicatio n fever headache Not available Not available Not available 08/11/20212019 35053 8 Bree Bravo MD [address] [place] [address],[address] [place] [address], [phone], [facility] 2 16:06:24 Medications Name Sig Start Date Stop Date Status Note LastModified by Organization Details LastModified Time magic mouthwash SWISH AND SPIT 5 ML BY MOUTH FOUR TIMES DAILY NEEDED active Not Available Not Available No t Available compound drug active Not Available Not Available Not Available compair xlt compre cmpressr FOR HOME USE active Not Available Not Available No t Available doxycycline hyclate 100 mg capsule TAKE [...] Updated DateTime 03/20/2021 160.02 cm 33.7 kg/m2 76448.55 g Lamont Bravo MD [address] [place] [address],[address], [phone] [place] [address] Urology 03/20/2021 16:22:47 Date Recorded Body height Body mass index (BMI) Body weight Provider Name and Address Organization Details Last Updated DateTime 08/11/2021 160.02 cm 28.3 kg/m2 25869.78 g Lamont Bravo MD [address] [place] [address],[place] [phone] [place] [address] Urology 08/11/2021 16:06:06 Social History Question Answer Notes LastModified by Organizat ion Details LastModified Time Tobacco Smoking Status Never Smoker Lamont Bravo MD [address] [place] [address],[address], [phone] [place] [address] Urology 03/20/2021 16:24:21 What Is Your Level [...] br east cancer Medical History Condition Response Heart Disease Y High Blood Pressure Y Kidney Stones Y High Cholesterol Y Gynecological HistoryNo gynecological history recorded. Obstetrics History GPAL:G 0 P 0 0 0 0 Immunizations Vaccine Type Date Status Provider Name and Address Organization Details Recorded Time pneumococcal polysaccharide PPV23 04/30/2010 completed Lamont Bravo MD [address] [place] [address],[address] [place] [address], [phone], [facility] 08/11/2021 16:07:09 Pneumococcal conjugate PCV 13 01/31/2015 completed Lamont Bravo MD [address] [place] [address],[address], [phone], [facility] 08/11/2021 16:07:09 pneumococcal polysaccharide PPV23 03/28/2015 completed Lamont Bravo MD [address] [place] [address],[address], [phone], [facility] 08/11/2021 16:07:09 Pneumococcal conjugate PCV 13 03/28/2016 completed Lamont Bravo MD [address] [place] [address],[address], [phone], [facility] 08/11/2021 16:07:10 pneumococcal polysaccharide PPV23 03/09/2016 completed Lamont Bravo MD [address] [place] [address],[address], [phone], [facility] 08/11/2021 16:07:10 Past Encounters Encounter ID Performer Location Encounter Start Date Encounter Closed Date Diagnosis/Indication [id number] MD TAMIKA Hudson_Nara [address] [place] [address] 03/20/2021 16:12:05 03/24/2021 11:06:39 Kidney stone [id number] MD TAMIKA Hudson_Nara [address] 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 Tanner James [id number] [employer] Stephanie James 08/11/2021 2 [employer] (MEDICARE SUPPLEMENT) Tanner James [id number] [employer] Brown Erika 03/20/2021 1 [place]: [id number] Tanner James [id number] Tanner James 03/20/2021 2 [employer] (MEDICARE SUPPLEMENT) Tanner James [id number] Tanner James Notes Date Note Type Note Provider Name and Address Organization Details Recorded Time 03/20/2021 text/html HPI Notes: New patient here to discuss nephrectomy. 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 She's had recurrent pyelonephritis as well. She had ESWL in 2002. She also has a poor aortic valve. Lamont Bravo MD [address] [place] [address],[address] [place] [address], [phone], [facility] 03/20/2021 17:02:40 08/11/2021 text/html HPI Notes: She h as recovered well from surgery. 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 Lamont Bravo MD [address] [place] [address],[address], [place], [phone], [facility] 08/11/2021 16:37:50 OBGyn Episode No OBEpisode recorded.
--- OUTSIDE RECORDS SUMMARY | 2023-07-23 14:55 | XMS_ITS | Clinical Summary ---
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 Patient discontinued 05/2012. 12/20/2012 start venlafaxine 37.5mg Osteopenia 12/07/2011 05/05/2023 Overview: Commercial Drafter wants patient to be on alendronate indefinitely [...] 04/21/2010 Overview: HGB 9.6 ON ADMIT TO [facility] 03/2009; ENDOSCOPY REVEALED SHALLOW GASTRIC ULCERATIONS [...] Type Department Care Team Description 07/15/2023 Telephone [facility] [address] [place] [address] [place] [address] Tyree Armijo MD Results (Echo ) 07/14/2023 2:37 PM FURNACE LINER - 07/14/2023 11:59 PM FURNACE LINER Hospital Encounter [facility] [address] [place] [address] Tyree Armijo MD Homol, Arvitt Moderate aortic valve stenosis 07/14/2023 Travel 07/09/2023 3:30 PM FURNACE LINER Office Visit [facility] [address] [place] [address] Aki Angela MD CV Vascular Est (Wound check and Drain removal; s/p PSA repair) 07/09/2023 Travel 06/29/2023 Telephone [facility] [address] [place] [address] Aki Angela MD Appointment Request 06/23/2023 9:39 AM FURNACE LINER Anesthesia Event [facility] [address], [place] [address] Andreia Carlson MD 06/23/2023 9:15 AM FURNACE LINER - 06/23/2023 11:41 AM FURNACE LINER Surgery [facility] [address], [place] [address] Aki Angela MD RIGHT FEMORAL PSEUDOANEURYSM REPAIR 06/21/2023 6:26 PM FURNACE LINER - 07/01/2023 11:20 AM FURNACE LINER Hospital Encounter [facility] [address] [place] [address] [facility], [facility] Hospitalists Of Hubert Richardson MD Hennum, Nate Stanley MD Pseudoaneurysm (HC) (Primary Dx); Acute pulmonary embolism, unspecified pulmonary embolism type, unspecified whether acute cor pulmonale present (HC); Yeast infection of the skin; Pseudoaneurysm of femoral artery following procedure (HC); Constipation, unspecified constipation type Discharge Disposition: Care Home Facility 06/16/2023 6:03 AM FURNACE LINER - 06/18/2023 4:10 PM FURNACE LINER Hospital Encounter [facility] [address] [place] [address] Rey Rousseau MD Bouhia, Sara, CRNA Anderson, Andreia Mckeon MD Aortic valve stenosis, etiology of cardiac valve disease unspecified (Primary Dx); Fibromyalgia Discharge Disposition: Home Self Care 06/16/2023 Travel 06/15/2023 Orders Only [facility] [address] [place] [address] Rehan Alarcon NP <No scans attached> 06/11/2023 9:00 AM FURNACE LINER Office Visit [facility] [address] [address] Toni Osuna MBBS CV Valve Est (VALVE EST:PRE-OP TAVR,LABS PRIOR,NEEDS EKG,[facility] 5WALK,LETTER SENT, HJK//PCP: Kyle Healy MD/) 06/11/2023 8:30 AM FURNACE LINER Orders Only [facility] [address] [address] Lab 06/11/2023 Telephone [facility] [address] [address] Rey Rousseau MD Health Maintenance Update (TAVR arrival time change) 06/11/2023 Telephone [facility] [address] [place] [phone] Rey Rousseau MD 06/11/2023 Travel 06/04/2023 Patient Outreach [facility] Care Management - Care Management Navigation/[facility] Health [address] [place] [address] Funmi Medina [facility] TCU Transition 06/02/2023 10:00 AM [facility] [address] [address] Claudia Alexandre NP Transitional Care Visit (Follow up & discharge) 05/26/2023 11:00 AM [facility] [address] [address] Milvia Almeida MD Transitional Care Visit (Follow up) 05/26/2023 Orders Only [address] [address] Claudia Alexandre, HERNAN Refill Request 05/25/2023 Nurse Triage [address] [address] Migdalia Carr, director of analytics Management 05/25/2023 Telephone [facility] [address] [place] [phone] Rey Rousseau MD Surgery Scheduled (TAVR scheduling. ) 05/17/2023 9:00 AM [facility] [address] [address] Claudia Alexandre NP Transitional Care Visit (Follow up) 05/15/2023 Nurse Triage [address] [address] Christina Rogers, PEEWEE Concerns (lump RLQ) 05/13/2023 Orders Only [facility] Scanner 1 scan: (1-Ord) HEALTH [facility], BASIC METABOLIC PANEL RESULTS, 05/13/2023 05/13/2023 Nurse Triage [address] [address] Tadeo Mcmullen, RN Abnormal Lab Results 05/12/2023 11:30 AM [facility] [address] [address] Milvia Almeida MD Transitional Care Visit (Initial) 05/11/2023 Patient Outreach [facility] Care Management - Care Management Navigation/[facility] [address] [place] [address] Funmi Medina [facility] TCU Transition 05/10/2023 11:00 AM [facility] [address] [address] Claudia Alexandre NP Transitional Care Visit (Admit) 05/09/2023 Nurse Triage [address] [address] Chio Coker RN Medication Management 05/04/2023 10:28 PM FURNACE LINER - 05/08/2023 11:09 AM FURNACE LINER Hospital Encounter [facility] [address] [place] [address] [facility], [facility] Hospitalists Of Sunny Rivera MD Larson, Allie Culp MD Fibromyalgia (Primary Dx) Discharge Disposition: Care Home Facility 04/29/2023 5:00 PM CDT Ancillary Procedure [facility] [address] [place] [address] from Last 3 Months Immunizations Name Administration [...] Comments Blood Pressure 124/58 07/09/2023 3:27 PM FURNACE LINER Pulse 78 07/09/2023 3:27 PM FURNACE LINER Temperature 36.4 ??C (97.6 ??F) 07/01/2023 8:06 AM CS T Respiratory Rate 16 07/09/2023 3:27 PM FURNACE LINER Oxygen Saturation 96% 07/09/2023 3:27 PM FURNACE LINER Inhaled Oxygen Concentration - - Weight 79.4 kg (175 lb) 07/09/2023 3:27 PM FURNACE LINER Height 160 cm (5' 3) 06/21/2023 6:40 PM FURNACE LINER Body Mass Index 31 06/21/2023 6:40 PM FURNACE LINER Plan of Treatment Upcoming Encounters Date Type Department Care Team (Late st Contact Info) Description 07/27/2023 9:30 AM FURNACE LINER Appointment [facility] [address] [facility] [place] [address] 07/27/2023 11:20 AM FURNACE LINER Orders Only [facility] [address] [address] [place] [phone] 07/27/2023 11:30 AM FURNACE LINER Hospital Encounter [facility] [address] [place] [address] Rehan Alarcon, HERNAN [address] [facility] [address] [place] [address] 07/27/2023 1:00 PM FURNACE LINER Office Visit [facility] [address] [id number] [place] [phone] Health Maintenance Due Date Last Done Comments [...] 02/27/2015, 11/26/2011 Medical Devices Implanted Type Area Rawhide Trimmer Device Identifier Shelf Expiration Date Model / Serial / Lot Screw Tsrh Og Thin 6.5x50mm - [id number] Implanted:Qty: 3 on 04/28/[address] [facility] N/A: Spine [employer] [id number]# / / Screw Locking 4x20mm Fine Tip Titnm - [id number] Implanted:Qty: 4 on 04/28/[address] [facility] Kinetic [id number] # / / Screw Thin Crest 6.5x45mm - [id number] Implanted:Qty: 1 on 04/28/2010 at [facility] [id number]# / / Set Screw 3dx - [id number] Implanted:Qty: 4 on 04/28/2010 at [facility] [id number]# / / Cnnctr Tsrh 3dx Sm - [id number] Implanted:Qty: 4 on 04/28/[address] [facility] Medtronic [id number]# / / Rios 3.5cmx5.5mm Pre-Cut - [id number] Implanted:Qty: 2 on 04/28/2010 at [facility] [id number]# / / Kit Infuse Md - [id number] Implanted:Qty: 1 on 04/28/[address] [facility] Spine [facility] 10/26/2012 [id number]# / / [id number] Filler Bio [id number] - [id number] Implanted:Qty: 1 on 04/28/2010 at [facility] [id number]# / / [id number] Synfix Lr 26mm Implanted:Qty: 1 on 04/28/[address] [facility] Spine Kinetic [id number] S / / [id number] Description:SYNFIX LR 26MM Procedures Procedure Name Priority Date/Time Associated Diagnosis Comments ECHO TTE COMPLETE WO CONTRAST Routine 07/15/2023 3:26 PM FURNACE LINER Moderate aortic valve stenosis SCAN-CARDIAC STRIP 07/01/2023 4:46 AM FURNACE LINER SCAN-CARDIAC STRIP 06/30/2023 8:37 PM FURNACE LINER SCAN-CARDIAC STRIP 06/29/2023 10:53 PM FURNACE LINER SCAN-CARDIAC STRIP 06/29/2023 7:18 PM FURNACE LINER SCAN-CARDIAC STRIP 06/29/2023 10:43 AM FURNACE LINER SCAN CORRESP-IMAGING 06/29/2023 10:21 AM FURNACE LINER SCAN-CARDIAC STRIP 06/29/2023 2:02 AM FURNACE LINER PLATELET ORDER STAT 06/28/2023 11:06 PM FURNACE LINER SCAN-CARDIAC STRIP 06/28/2023 9:38 PM FURNACE LINER RENAL FUNCTION PANEL Early AM 06/28/2023 7:47 AM FURNACE LINER SCAN-CARDIAC STRIP 06/28/2023 7:18 AM FURNACE LINER SCAN-CARDIAC STRIP 06/28/2023 12:58 AM FURNACE LINER SCAN-CARDIAC STRIP 06/27/2023 6:48 PM FURNACE LINER SCAN-CARDIAC STRIP 06/27/2023 6:[address] ANGIO ABDOMEN PELVIS Routine 06/27/2023 4:32 PM FURNACE LINER CREATININE PUSHPA 06/27/2023 2:43 PM FURNACE LINER POTASSIUM Today 06/27/2023 2:43 PM FURNACE LINER HEMOGLOBIN PUSHPA 06/27/2023 2:43 PM FURNACE LINER SCAN-CARDIAC STRIP 06/27/2023 7:28 AM FURNACE LINER SCAN-CARDIAC STRIP 06/26/2023 4:49 PM FURNACE LINER HEMOGLOBIN Early AM 06/26/2023 8:04 AM FURNACE LINER SCAN-CARDIAC STRIP 06/26/2023 6:53 AM FURNACE LINER SCAN-CARDIAC STRIP 06/25/2023 8:13 PM FURNACE LINER TRANSFUSE RBC (NURSE COMMUNICATION ORDER) STAT 06/25/2023 2:11 PM FURNACE LINER RBC W/O TYPE & SCREEN Today 06/25/2023 9:16 AM FURNACE LINER RED BLOOD CELLS EA UNIT Today 06/25/2023 9:13 AM FURNACE LINER HEMOGLOBIN Early AM 06/25/2023 7:16 AM FURNACE LINER CREATININE Early AM 06/25/2023 7:16 AM FURNACE LINER POTASSIUM Early AM 06/25/2023 7:16 AM FURNACE LINER SCAN-CARDIAC STRIP 06/25/2023 5:53 AM FURNACE LINER SCAN-CARDIAC STRIP 06/25/2023 12:00 AM FURNACE LINER SCAN-CARDIAC STRIP 06/24/2023 11:15 PM FURNACE LINER SCAN-CARDIAC STRIP 06/24/2023 7:05 PM FURNACE LINER SCAN-CARDIAC STRIP 06/24/2023 3:43 PM FURNACE LINER SCAN-CARDIAC STRIP 06/24/2023 8:21 AM FURNACE LINER TSH PUSHPA 06/24/2023 7:37 AM FURNACE LINER PLATELET COUNT PUSHPA 06/24/2023 7:37 AM FURNACE LINER PHOSPHORUS PUSHPA 06/24/2023 7:37 AM FURNACE LINER CALCIUM PUSHPA 06/24/2023 7:37 AM FURNACE LINER MAGNESIUM PUSHPA 06/24/2023 7:37 AM FURNACE LINER POTASSIUM Early AM 06/24/2023 7:37 AM FURNACE LINER HEMOGLOBIN Early AM 06/24/2023 7:37 AM FURNACE LINER SCAN-CARDIAC STRIP 06/24/2023 12:33 AM FURNACE LINER SCAN-CARDIAC STRIP 06/23/2023 7:35 PM FURNACE LINER SCAN-CARDIAC STRIP 06/23/2023 3:57 PM FURNACE LINER ENDOTRACHEAL TUBE Routine 06/23/2023 10:22 AM FURNACE LINER ENDOTRACHEAL TUBE Routine 06/23/2023 10:22 AM FURNACE LINER ENDOTRACHEAL TUBE Routine 06/23/2023 10:22 AM FURNACE LINER CUTDOWN FEMORAL ARTERY 06/23/2023 9:26 AM FURNACE LINER RIGHT FEMORAL PSEUDOANEURYSM Case Notes RIGHT FEMORAL PSEUDOANEURYSM REPAIR SCAN-CARDIAC STRIP 06/23/2023 7:35 AM FURNACE LINER TYPE & SCREEN Timed 06/23/2023 6:23 AM FURNACE LINER PLATELET ESTIMATE Timed 06/23/2023 6:23 AM FURNACE LINER BASIC METABOLIC PANEL Timed 06/23/2023 6:23 AM FURNACE LINER CBC W PLT NO DIFF Timed 06/23/2023 6:23 AM FURNACE LINER SCAN-CARDIAC STRIP 06/22/2023 11:17 PM FURNACE LINER SCAN-CARDIAC STRIP 06/22/2023 9:58 PM FURNACE LINER SCAN-CARDIAC STRIP 06/22/2023 3:46 PM FURNACE LINER HEMOGLOBIN Timed 06/22/2023 2:09 PM FURNACE LINER SCAN-CARDIAC STRIP 06/22/2023 8:28 AM FURNACE LINER PLATELET ESTIMATE Timed 06/22/2023 6:49 AM FURNACE LINER CBC W PLT NO DIFF Early AM 06/22/2023 6:49 AM FURNACE LINER BASIC METABOLIC PANEL Early AM 06/22/2023 6:49 AM FURNACE LINER US ARTERIAL LOWER EXTREMITY PSEUDOANEURYSM RIGHT Routine 06/22/2023 1:45 AM FURNACE LINER SCAN-CARDIAC STRIP 06/21/2023 11:05 PM FURNACE LINER HEMOGLOBIN STAT 06/21/2023 7:26 PM FURNACE LINER SCAN-CARDIAC STRIP 06/21/2023 6:43 PM FURNACE LINER SCAN-CARDIAC STRIP 06/21/2023 12:00 AM FURNACE LINER SCAN-CARDIAC STRIP 06/18/2023 10:09 AM FURNACE LINER MAGNESIUM Early AM 06/18/2023 6:50 AM FURNACE LINER POTASSIUM Early AM 06/18/2023 6:50 AM FURNACE LINER SCAN-CARDIAC STRIP 06/17/2023 11:55 PM FURNACE LINER SCAN-CARDIAC STRIP 06/17/2023 4:46 PM FURNACE LINER SCAN-CARDIAC STRIP 06/17/2023 9:01 AM FURNACE LINER SCAN-CARDIAC STRIP 06/17/2023 7:12 AM FURNACE LINER PLATELET ESTIMATE Timed 06/17/2023 6:24 AM FURNACE LINER BASIC METABOLIC PANEL Early AM 06/17/2023 6:24 AM FURNACE LINER CBC W PLT NO DIFF Early AM 06/17/2023 6:24 AM FURNACE LINER EKG 12 LEAD Early AM 06/17/2023 5:37 AM FURNACE LINER SCAN-CARDIAC STRIP 06/16/2023 11:36 PM FURNACE LINER SCAN-CARDIAC STRIP 06/16/2023 11:34 PM FURNACE LINER EKG 12 LEAD PUSHPA 06/16/2023 3:24 PM FURNACE LINER SCAN-CARDIAC STRIP 06/16/2023 1:53 PM FURNACE LINER ECHO TTE LIMITED W CONTRAST W COLOR Routine 06/16/2023 11:49 AM FURNACE LINER HCHG ACTIVATED CLOTTING TM CV Timed 06/16/2023 8:50 AM FURNACE LINER CVL TAVR Routine 06/16/2023 8:31 AM FURNACE LINER RED BLOOD CELLS EA UNIT STAT 06/16/2023 7:30 AM FURNACE LINER RED BLOOD CELLS EA UNIT STAT 06/16/2023 7:30 AM FURNACE LINER TYPE & SCREEN Preop 06/16/2023 6:48 AM FURNACE LINER GLUCOSE, FASTING Preop 06/16/2023 6:48 AM FURNACE LINER EKG 12 LEAD Routine 06/11/2023 9:05 AM FURNACE LINER Aortic valve stenosis, etiology of cardiac valve disease unspecified TYPE & SCREEN Routine 06/11/2023 8:58 AM FURNACE LINER Pre-op testing ALBUMIN Routine 06/11/2023 8:58 AM FURNACE LINER Pre-op testing CBC W PLT NO DIFF Routine 06/11/2023 8:58 AM FURNACE LINER Pre-op testing BASIC METABOLIC PANEL Routine 06/11/2023 8:58 AM FURNACE LINER Pre-op testing SCAN-LABORATORY REPORT 05/13/2023 12:00 AM FURNACE LINER SCAN-CARDIAC STRIP 05/07/2023 9:50 PM FURNACE LINER NM CARDIAC AMYLOID TC PYP Routine 05/07/2023 12:47 PM FURNACE LINER SCAN-CARDIAC STRIP 05/07/2023 9:00 AM FURNACE LINER MAGNESIUM Early AM 05/07/2023 8:19 AM FURNACE LINER POTASSIUM Early AM 05/07/2023 8:19 AM FURNACE LINER PROTEIN ELP,URINE RANDOM Today 05/06/2023 7:50 PM FURNACE LINER IMMUNOFIXATION ELP, URINE Today 05/06/2023 7:50 PM FURNACE LINER SCAN-CARDIAC STRIP 05/06/2023 7:08 PM FURNACE LINER IMMUNOGLOBULINS FREE LT CHAIN SERUM Today 05/06/2023 5:11 PM FURNACE LINER IMMUNOFIXATION,SERUM Today 05/06/2023 5:11 PM FURNACE LINER PROTEIN ELP,SERUM Today 05/06/2023 5:11 PM FURNACE LINER WHITE BLOOD COUNT Early AM 05/06/2023 8:09 AM FURNACE LINER MAGNESIUM Early AM 05/06/2023 8:09 AM FURNACE LINER POTASSIUM Early AM 05/06/2023 8:09 AM FURNACE LINER CTA CHEST ABD PELVIS TAVR - DUAL READ Routine 05/06/2023 7:41 AM FURNACE LINER SCAN-CARDIAC STRIP 05/06/2023 7:08 AM FURNACE LINER SCAN-CARDIAC STRIP 05/06/2023 3:38 AM FURNACE LINER SCAN-CARDIAC STRIP 05/05/2023 4:26 PM FURNACE LINER URINE CULTURE Today 05/05/2023 11:06 AM FURNACE LINER BLOOD CULTURE Today 05/05/2023 9:42 AM FURNACE LINER MAGNESIUM PUSHPA 05/05/2023 9:36 AM FURNACE LINER BLOOD CULTURE Today 05/05/2023 9:36 AM FURNACE LINER LACTATE VENOUS Today 05/05/2023 9:36 AM FURNACE LINER SCAN CORRESP-EKG RESULTS 05/05/2023 8:42 AM FURNACE LINER SCAN CORRESP-LABORATORY RESULTS 05/05/2023 8:42 AM FURNACE LINER SCAN CORRESP-DIAGNOSTICS 05/05/2023 8:42 AM FURNACE LINER SCAN-CARDIAC STRIP 05/05/2023 8:11 AM FURNACE LINER TROPONIN T (HS) ONE TIME Timed 05/05/2023 4:40 AM FURNACE LINER PRO-BNP Early AM 05/05/2023 4:40 AM FURNACE LINER BASIC METABOLIC PANEL Early AM 05/05/2023 4:40 AM FURNACE LINER CBC W PLT NO DIFF Early AM 05/05/2023 4:40 AM FURNACE LINER SCAN-CARDIAC STRIP 05/05/2023 12:28 AM FURNACE LINER TROPONIN T (HS) ACUTE W/2HR REFLEX STAT 05/05/2023 12:12 AM FURNACE LINER ECHO TTE COMPLETE WO CONTRAST Routine 04/29/2023 5:17 PM CDT Heart failure (HC) Aortic stenosis from Last 3 Months Results * ECHO TTE COMPLETE WO CONTRAST (07/15/2023 3:26 PM FURNACE LINER) Only the most recent of2 resultswithin the time period is included. AORTIC VALVE MEAN PG 4 mmHg EJECTION FRACTION 65 % LVEDD 3.8 cm Anatomical Region Laterality Modality Ultrasound 07/14/2023 2:46 PM FURNACE LINER Narrative 07/14/2023 5:16 PM FURNACE LINER ECHOCARDIOGRAM TANNER JAMES ?Accession#: ?? [id number] : ?1945 78 years Study Date: ?? 07/14/2023 2:46:41 PM Gender: F ? BP: ? 131/65 mmHg Height: 160.00 cm ? BSA: ?1.82 m? ? ? Weight: 79.00 kg ?Tech: ? AH ?Referring MD: TYREE ARMIJO Site: ? [facility] Reading Location: ANW OP Patient [...] . This study was interpreted by an [facility] accredited facility. ??Final ?? Procedure Note Mayito Pardo MD - 07/14/2023 ECHOCARDIOGRAM TANNER JAMES : 1945 78 years Study Date: 07/14/2023 2:46:41 PM Gender: F BP: 131/65 mmHg Height: 160.00 cm BSA: 1.82 m? ? ? Weight: 79.00 kg Tech: Referring MD: TYREE ARMIJO Site: [facility] Reading Location: ANW OP Patient [...] . This study was interpreted by an [facility] accredited facility. Final Tyree Armijo MD ECHO ORD * SCAN-CARDIAC STRIP (07/01/2023 4:46 AM FURNACE LINER) Scanner OTHER * SCAN-CARDIAC STRIP (06/30/2023 8:37 PM FURNACE LINER) Scanner OTHER * SCAN-CARDIAC STRIP (06/29/2023 10:53 PM FURNACE LINER) Scanner OTHER * SCAN-CARDIAC STRIP (06/29/2023 7:18 PM FURNACE LINER) Scanner OTHER * SCAN-CARDIAC STRIP (06/29/2023 10:43 AM FURNACE LINER) Scanner OTHER * SCAN CORRESP-IMAGING (06/29/2023 10:21 AM FURNACE LINER) Anatomical Region Laterality Modality Other Narrative 06/29/2023 10:21 AM FURNACE LINER Ordered by an unspecified provider. Other Clinical Staff OTHER * SCAN-CARDIAC STRIP (06/29/2023 2:02 AM FURNACE LINER) Scanner OTHER * PLATELET ORDER, 1 unit (06/28/2023 11:06 PM FURNACE LINER) QUANTITY 1 06/28/2023 11:06 PM FURNACE LINER [facility] [employer] LAB BLOOD BANK Blood BLOOD SPECIMEN / Unknown 06/28/2023 11:03 PM FURNACE LINER Joseline Lundberg MD BLOOD BANK [facility] [employer] BLOOD B[facility] [address] [place] [address], * SCAN-CARDIAC STRIP (06/28/2023 9:38 PM [facility]) Scanner OTHER * (ABNORMAL) RENAL FUNCTION PANEL (06/28/2023 7:47 AM [facility]) SODIUM 140 136 - 145 mmol/L 06/28/2023 8:46 AM [facility] POTASSIUM 4.1 3.5 - 5.1 mmol/L 06/28/2023 8:46 AM [facility] CHLORIDE 105 98 - 107 mmol/L 06/28/2023 8:46 AM [facility] CO2,TOTAL 27 22 - 29 mmol/L 06/28/2023 8:46 AM [facility] ANION GAP 8 5 - 18 06/28/2023 8:46 AM [facility] GLUCOSE 103(H) 70 - 99 mg/dL 06/28/2023 8:46 AM [facility] CALCIUM 8.7(L) 8.8 - 10.2 mg/dL 06/28/2023 8:46 AM [facility] BUN 35(H) 8 - 23 mg/dL 06/28/2023 8:46 AM [facility] CREATININE 1.24(H) 0.50 - 0.90 mg/dL 06/28/2023 8:46 AM [facility] BUN/CREAT RATIO 28(H) 10 - 20 8:46 AM [facility] eGFR 45(L) >90 mL/min/1.7 3m2 06/28/2023 8:46 AM [facility] Comment:As of 2021, eG FR is calculated by the CKD-EPI creatinine equation without race adjustment. ??eGFR can be influenced by muscle mass, exercise, and diet. ??The reported eGFR is an estimation only and is only applicable if the renal function is stable. PHOSPHORUS 3.0 2.5 - 4.5 mg/dL 06/28/2023 8:46 AM [facility] ALBUMIN 2.9(L) 4.0 - 4.9 g/dL 06/28/2023 8:46 AM FURNACE LINER [facility] Blood BLOOD SPECIMEN / Unknown Venipuncture / Unknown 06/28/2023 7:47 AM FURNACE LINER 06/28/2023 8:16 AM FURNACE LINER Nate To MD [facility] [address] [place] [address], * SCAN-CARDIAC STRIP (06/28/2023 7:18 AM FURNACE LINER) Scanner OTHER * SCAN-CARDIAC STRIP (06/28/2023 12:58 AM FURNACE LINER) Scanner OTHER * SCAN-CARDIAC STRIP (06/27/2023 6:48 PM FURNACE LINER) Scanner OTHER * SCAN-CARDIAC STRIP (06/27/2023 6:36 PM FURNACE LINER) Scanner OTHER * CT ANGIO ABDOMEN PELVIS (06/27/2023 4:32 PM FURNACE LINER) Anatomical Region Laterality Modality Abdomen, Pelvis Computed Tomogra phy 06/29/2023 9:58 AM FURNACE LINER Narrative 06/29/2023 9:58 AM FURNACE LINER For Patients: ??As a result of the 21st Century Cures Act, medical imaging exams and [...] CT * (ABNORMAL) HEMOGLOBIN (06/27/2023 2:43 PM FURNACE LINER) Only the most recent of6 resultswithin the time period is included. Pathologist [facility] HEMOGLOBIN 9.1(L) 12.0 - 16.0 g/dL 06/27/2023 2:55 PM FURNACE LINER [facility] MCV 101(H) 80 - 100 fL 06/27/2023 2:55 PM FURNACE LINER [facility] Blood BLOOD SPECIMEN / Unknown Butterfly / Unknown 06/27/2023 2:43 PM FURNACE LINER 06/27/2023 2:50 PM FURNACE LINER Nate To MD HEMATOLOGY Performing Organization Address City/[facility]/ZIP Co de Phone Number [facility] [address] [place] [address], [place] * POTASSIUM (06/27/2023 2:43 PM FURNACE LINER) Only the most recent of6 resultswithin the time period is included. Pathologist [facility] POTASSIUM 4.6 3.5 - 5.1 mmol/L 06/27/2023 3:24 PM [facility] Blood BLOOD SPECIMEN / Unknown Butterfly / Unknown 06/27/2023 2:43 PM [facility]ER 06/27/2023 3:08 PM [facility]ER Samia Jimenez RN CHEMISTRY Performing Organization Address City/[facility]/ZIP Co de Phone Number [facility] [address] [place] [address], [place] * (ABNORMAL) Creatinine TODAY (06/27/2023 2:43 PM FURNACE LINER) Only the most recent of2 resultswithin the time period is included. Pathologist [facility] eGFR 37(L) >90 mL/min/1.7 3m2 06/27/2023 3:24 PM [facility] Comment:As of 2021, eG FR is calculated by the CKD-EPI creatinine equation without race adjustment. ??eGFR can be influenced by muscle mass, exercise, and diet. ??The reported eGFR is an estimation only and is only applicable if the renal function is stable. CREATININE 1.48(H) 0.50 - 0.90 mg/dL 06/27/2023 3:24 PM [facility] Blood BLOOD SPECIMEN / Unknown Butterfly / Unknown 06/27/2023 2:43 PM [facility]NACE LINER 06/27/2023 3:08 PM [facility] Nate To MD [facility] [address] [address], * SCAN-CARDIAC STRIP (06/27/2023 7:28 AM FURNACE LINER) Scanner OTHER * SCAN-CARDIAC STRIP (06/26/2023 4:49 PM FURNACE LINER) Scanner OTHER * SCAN-CARDIAC STRIP (06/26/2023 6:53 AM FURNACE LINER) Scanner OTHER * SCAN-CARDIAC STRIP (06/25/2023 8:13 PM FURNACE LINER) Scanner OTHER * TRANSFUSE RBC (NURSE COMMUNICATION ORDER) (06/25/2023 4:16 PM FURNACE LINER) Blood BLOOD SPECIMEN / Unknown Nate To MD NURSING BLOOD B ANK * RBC W/O TYPE & SCREEN (06/25/2023 9:16 AM [facility]URNACE LINER) QUANTITY 1 06/25/2023 9:1 6 AM [facility] Blood BLOOD SPECIMEN / Unknown 06/25/2023 9:13 AM [facility]UR[facility]ER Nate To MD BLOOD BANK Performing Organization Address [facility]/NEW [facility] Co de Phone Number [employer] LAB BLOOD BANK [address] [place] [address], * RED BLOOD CELLS EA UNIT (06/25/2023 9:13 AM FURNACE LINER) Only the most recent of3 resultswithin the time period is included. CROSSMATCH Compatible Compatible [employer] LAB BLOOD BANK PRODUCT BLOOD TYPE A Rh Positive [employer] [facility] BLOOD BANK PRODUCT ID NUMBER [id number] [employer] LAB BLOOD BANK PRODUCT STATUS [employer] LAB BLOOD BANK PRODUCT DESCRIPTION RBC -1 LR [employer] LAB BLOOD BANK PRODUCT CODE [id number] [employer] LAB BLOOD BANK ISSUE DATE/TIME 06/25/23 13:48 [employer] BLOOD BANK Nate To MD BLOOD BANK Performing Organization Address [facility] Co de Phone Number [employer] LAB BLOOD BANK [address] [place] [address], * SCAN-CARDIAC STRIP (06/25/2023 5:53 AM FURNACE LINER) Scanner OTHER * SCAN-CARDIAC STRIP (06/25/2023 12:00 AM FURNACE LINER) Scanner OTHER * SCAN-CARDIAC STRIP (06/24/2023 11:15 PM FURNACE LINER) Scanner OTHER * SCAN-CARDIAC STRIP (06/24/2023 7:05 PM FURNACE LINER) Scanner OTHER * SCAN-CARDIAC STRIP (06/24/2023 3:43 PM FURNACE LINER) Scanner OTHER * SCAN-CARDIAC STRIP (06/24/2023 8:21 AM FURNACE LINER) Scanner OTHER * TSH FOR ADD ON (06/24/2023 7:37 AM FURNACE LINER) TSH 1.38 0.27 - 4.20 uIU/mL 06/24/2023 9:52 AM FURNACE LINER [facility] Blood BLOOD SPECIMEN / Unknown Venipuncture / Unknown 06/24/2023 7:37 AM FURNACE LINER 06/24/2023 7:43 AM FURNACE LINER Narrative [facility] - 06/24/2023 9:52 AM FURNACE LINER In Adults, TSH values between 5.00 and 10.00 uIU/ml do not necessarily indicate the presence of Hypothyroidism. Correlation with clinical findings such as presence of goiter and/or Thyroperoxidase (TPO) Antibody may be helpful. For more information please refer to DEANDRE 2004; 291: 228-238. Nate To MD CHEMISTRY Performing Organization Address [facility] Co de Phone Number [facility] [address] [place] [address], * (ABNORMAL) Platelets FOR ADD ON (06/24/2023 7:37 AM FURNACE LINER) PLATELET COUNT 90(L) 140 - 440 thou/cu mm 06/24/2023 9:43 AM FURNACE LINER [facility] TRAL LABORATORY MPV 12.3(H) 6.5 - 11.0 fL 06/24/2023 9:[address] [facility] LABORATORY Blood BLOOD SPECIMEN / Unknown Venipuncture / Unknown 06/24/2023 7:37 AM FURNACE LINER 06/24/2023 7:43 AM FURNACE LINER Nate To MD HEMATOLOGY Performing Organization Address City/[facility]/ZIP Co de Phone Number [facility] [address] [place] [address], * Phosphorus FOR ADD ON (06/24/2023 7:37 AM FURNACE LINER) PHOSPHORUS 3.4 2.5 - 4.5 mg/dL 06/24/2023 9:52 AM FURNACE LINER [facility] Blood BLOOD SPECIMEN / Unknown Venipuncture / Unknown 06/24/2023 7:37 AM FURNACE LINER 06/24/2023 7:43 AM FURNACE LINER Nate To MD CHEMISTRY Performing Organization Address [facility] Co de Phone Number [facility] [address] [place] [address], [place] * Magnesium FOR ADD ON (06/24/2023 7:37 AM FURNACE LINER) Only the most recent of5 resultswithin the time period is included. MAGNESIUM 2.4 1.6 - 2.4 mg/dL 06/24/2023 9:52 AM FURNACE LINER [facility] Blood BLOOD SPECIMEN / Unknown Venipuncture / Unknown 06/24/2023 7:37 AM FURNACE LINER 06/24/2023 7:43 AM FURNACE LINER Nate To MD CHEMISTRY Performing Organization Address [facility] de Phone Number [facility] [address] [place] [address], [place] * (ABNORMAL) Calcium FOR ADD ON (06/24/2023 7:37 AM FURNACE LINER) CALCIUM 8.4(L) 8.8 - 10.2 mg/dL 06/24/2023 9:55 AM FURNACE LINER [facility] Blood BLOOD SPECIMEN / Unknown Venipuncture / Unknown 06/24/2023 7:37 AM FURNACE LINER 06/24/2023 7:43 AM FURNACE LINER Nate To MD CHEMISTRY Performing Organization Address [facility] Co de Phone Number [facility] [address] [place] [address], [place] * SCAN-CARDIAC STRIP (06/24/2023 12:33 AM FURNACE LINER) Scanner OTHER * SCAN-CARDIAC STRIP (06/23/2023 7:35 PM FURNACE LINER) Scanner OTHER * SCAN-CARDIAC STRIP (06/23/2023 3:57 PM FURNACE LINER) Scanner OTHER * HCHG TUBE PR1, HCHG INSTRUMENT DISP PR10, HCHG STYLET PR1 (06/23/2023 10:22 AM FURNACE LINER) Narrative Elvis Steen CRNA - 06/23/2023 10:22 AM FURNACE LINER Elvis Steen CRNA ? 06/23/2023 10:23 AM [...] neck mobility Notes: HX of RA, elective Buckingham d/t to overal stiffness and reduced ROM. Elvis Steen CRNA ANESTHESIA PX NO TE ORDERABLES * SCAN-CARDIAC STRIP (06/23/2023 7:35 AM FURNACE LINER) Scanner OTHER * (ABNORMAL) PLATELET ESTIMATE (06/23/2023 6:23 AM FURNACE LINER) Only the most recent of3 resultswithin the time period is included. PLATELET ESTIMATE Decreased (A) Adequate, No estimate 06/23/2023 8:17 AM FURNACE LINER [facility] [employer] TR[facility] LABORATORY Blood BLOOD SPECIMEN / Unknown Butterfly / Unknown 06/23/2023 6:23 AM FURNACE LINER 06/23/2023 6:58 AM FURNACE LINER Claudia SIMONS [facility] [address] [place] [address], [place] * Type and Screen (06/23/2023 6:23 AM FURNACE LINER) Only the most recent of3 resultswithin the time period is included. Pathologist [facility] ABORH A Rh Positive 06/23/2023 8:07 AM FURNACE LINER [facility] ANTIBODY SCREEN Negative Negative 06/23/2023 8:07 AM FURNACE LINER [facility] SPECIMEN EXPIRATION DATE/TIME 06/26/23 23:59 06/23/2023 8:07 AM FURNACE LINER [facility] LAB BLOOD BANK Blood BLOOD SPECIMEN / Unknown Butterfly / Unknown 06/23/2023 6:23 AM FURNACE LINER 06/23/2023 6:58 AM FURNACE LINER Claudia SIMONS BLOOD BANK [facility] [address] [place] [address], * (ABNORMAL) CBC with Platelet no Diff (06/23/2023 6:23 AM FURNACE LINER) Only the most recent of5 resultswithin the time period is included. Pathologist [facility] WHITE BLOOD COUNT 7.6 4.5 - 11.0 thou/cu mm 06/23/2023 8:17 AM [facility] TRAL LABORATORY RED BLOOD COUNT 2.47(L) 4.00 - 5.20 mil/cu mm 06/23/2023 8:17 AM [facility] TRAL LABORATORY HEMOGLOBIN 7.9(L) 12.0 - 16.0 g/dL 06/23/2023 8:17 AM [facility] TRAL LABORATORY HEMATOCRIT 25.7(L) 33.0 - 51.0 % 06/23/2023 8:17 AM [facility] TRAL LABORATORY MCV 104(H) 80 - 100 fL 06/23/2023 8:17 AM [facility] TRAL LABORATORY MCH 32.0 26.0 - 34.0 pg 06/23/2023 8:17 AM [facility] TRAL LABORATORY MCHC 30.7(L) 32.0 - 36.0 g/dL 06/23/2023 8:17 AM [facility] TRAL LABORATORY RDW 18.5(H) 11.5 - 15.5 % 06/23/2023 8:17 AM [facility] TRAL LABORATORY PLATELET COUNT 82(L) 140 - 440 thou/cu mm 06/23/2023 8:17 AM [facility] TR[facility] LABORATORY MPV 12.3(H) 6.5 - 11.0 fL 06/23/2023 8:17 AM [facility] TRAL LABORATORY NRBC 0.3 % 06/23/2023 8:17 AM [facility] TRAL LABORATORY ABS NRBC 0.0 thou /cu mm 06/23/2023 8:17 AM [facility] LAB[facility] Blood BLOOD SPECIMEN / Unknown Butterfly / Unknown 06/23/2023 6:23 AM FURNACE LINER 06/23/2023 6:58 AM [facility] Claudia SIMONS HEMATOLOGY [facility] [address] [place] [address], * (ABNORMAL) Basic Metabolic Panel (06/23/2023 6:23 AM FURNACE LINER) Only the most recent of5 resultswithin the time period is included. SODIUM 145 136 - 145 mmol/L 06/23/2023 7:57 AM [facility] TRAL LABORATORY POTASSIUM 4.5 3.5 - 5.1 mmol/L 06/23/2023 7:57 AM [facility] TRAL LABORATORY CHLORIDE 110(H) 98 - 107 mmol/L 06/23/2023 7:57 AM [facility] LAB[facility] CO2,TOTAL 26 22 - 29 mmol/L 06/23/2023 7:57 AM [facility] TRAL LABORATORY ANION GAP 9 5 - 18 06/23/2023 7:57 AM [facility] TRAL LABORATORY GLUCOSE 83 70 - 99 mg/dL 06/23/2023 7:57 AM FURNACE LINER [facility] TRAL LABORATORY CALCIUM 8.5(L) 8.8 - 10.2 mg/dL 06/23/2023 7:57 AM FURNACE LINER [facility] LABORAT[facility] TRAL LABORATORY BUN 29(H) 8 - 23 mg/dL 06/23/2023 7:57 AM FURNACE LINER [facility] TRAL LABORATORY CREATININE 1.20(H) 0.50 - 0.90 mg/dL 06/23/2023 7:57 AM [facility] TRAL LABORATORY BUN/CREAT RATIO 24(H) 10 - 20 7:57 AM [facility] TRAL LABORATORY eGFR 47(L) >90 mL/min/1.7 3m2 06/23/2023 7:57 AM [facility] TRAL LABORATORY Comment:As of 2021, eG FR is calculated by the CKD-EPI creatinine equation without race adjustment. ??eGFR can be influenced by muscle mass, exercise, and diet. ??The reported eGFR is an estimation only and is only applicable if the renal function is stable. Blood BLOOD SPECIMEN / Unknown Butterfly / Unknown 06/23/2023 6:23 AM FURNACE LINER 06/23/2023 6:58 AM FURNACE LINER Claudia SIMONS CHEMISTRY [facility] LABORATORY [address] [place] [address], * SCAN-CARDIAC STRIP (06/22/2023 11:17 PM FURNACE LINER) Scanner OTHER * SCAN-CARDIAC STRIP (06/22/2023 9:58 PM FURNACE LINER) Scanner OTHER * SCAN-CARDIAC STRIP (06/22/2023 3:46 PM FURNACE LINER) Scanner OTHER * SCAN-CARDIAC STRIP (06/22/2023 8:28 AM FURNACE LINER) Scanner OTHER * US ARTERIAL LOWER EXTREMITY PSEUDOANEURYSM RIGHT (06/22/2023 1:45 AM FURNACE LINER) Anatomical Region Laterality Modality LEG R Ultrasound 06/22/2023 8:49 AM FURNACE LINER Narrative 06/22/2023 8:49 AM FURNACE LINER For Patients: ??As a result of the [...] [place] * SCAN-CARDIAC STRIP (06/21/2023 11:05 PM FURNACE LINER) Scanner OTHER * SCAN-CARDIAC STRIP (06/21/2023 6:43 PM FURNACE LINER) Scanner OTHER * SCAN-CARDIAC STRIP (06/21/2023 12:00 AM FURNACE LINER) Narrative 06/21/2023 12:00 AM FURNACE LINER Ordered by an unspecified provider. Other Clinical Staff OTHER * SCAN-CARDIAC STRIP (06/18/2023 10:09 AM FURNACE LINER) Scanner OTHER * SCAN-CARDIAC STRIP (06/17/2023 11:55 PM FURNACE LINER) Scanner OTHER * SCAN-CARDIAC STRIP (06/17/2023 4:46 PM FURNACE LINER) Scanner OTHER * SCAN-CARDIAC STRIP (06/17/2023 9:01 AM FURNACE LINER) Scanner OTHER * SCAN-CARDIAC STRIP (06/17/2023 7:12 AM FURNACE LINER) Scanner OTHER * EKG - In AM (06/17/2023 5:37 AM FURNACE LINER) Only the most recent of3 resultswithin the [...] NOW QTc 453 ms BEYOND NOW P Buckley -24 degrees BEYOND NOW R Buckley degrees BEYOND NOW T Buckley 144 degrees BEYOND NOW 06/17/2023 5:37 AM FURNACE LINER 06/18/2023 9:31 AM FURNACE LINER Toni CARTAGENA EKG ORD BEYOND NOW [place], [place] * SCAN-CARDIAC STRIP (06/16/2023 11:36 PM FURNACE LINER) Scanner OTHER * SCAN-CARDIAC STRIP (06/16/2023 11:34 PM FURNACE LINER) Scanner OTHER * SCAN-CARDIAC STRIP (06/16/2023 1:53 PM FURNACE LINER) Scanner OTHER * ECHO TTE LIMITED W CONTRAST W COLOR (06/16/2023 11:49 AM FURNACE LINER) AORTIC VALVE MEAN PG 3 mmHg EJECTION FRACTION 66 % LVEDD 3.2 cm EJECTION FRACTION 70 - 75% Anatomical Region Laterality Modality Ultrasound 06/16/2023 9:59 AM FURNACE LINER Narrative 06/16/2023 1:54 PM FURNACE LINER ECHOCARDIOGRAM TANNER JAMES ?Accession#: ?? [id number] : ?1945 78 years Study Date: ?? 06/16/2023 9:59:09 AM Gender: F ? BP: ? 131/83 mmHg Height: 160.00 cm ? BSA: ?1.71 m? ? ? Weight: 68.00 kg ?Tech: ? AH ?Referring MD: REHAN ALARCON Site: ? [facility] Reading Location: [facility] Patient Location: Procedure: Limited 2D. Indication [...] documentation: 2 ml diluted Definity, lot #[id number], [facility]# [id number] was administered peripherally to enhance visualization of all left ventricular segments. . Report modified by Swapnil Vincent MD on 06/16/2023 1:55:14 PM. This study was interpreted by an [facility] accredited facility. ??Final (Updated) ?? Procedure Note Swapnil Vincent MD - 06/16/2023 ECHOCARDIOGRAM TANNER JAMES : 1945 78 years Study Date: 06/16/2023 9:59:09 AM Gender: F BP: 131/83 mmHg Height: 160.00 cm BSA: 1.71 m? ? ? Weight: 68.00 kg Tech: Referring MD: REHAN ALARCON Site: [facility] Reading Location: [facility] Patient Location: Procedure: Limited 2D. Indication [...] documentation: 2 ml diluted Definity, lot #[id number], [facility]#[id number] was administered peripherally to enhance visualization of allleft ventricular segments. . Report modified by Swapnil Vincent MD on 06/16/2023 1:55:14 PM. This study was interpreted by an [facility] accredited facility. Final (Updated) Rehan Alarcon DATA CENTER MANAGER ECHO ORD * (ABNORMAL) ACTIVATED CLOTTING TIME ONY216 ACT (06/16/2023 8:50 AM FURNACE LINER) ACTIVATED CLOTTING TIME, POCT 247(H) 74 - 125 sec 06/17/2023 1:11 AM FURNACE LINER [facility] Blood BLOOD SPECIMEN / Unknown 06/16/2023 8:50 AM FURNACE LINER 06/17/2023 1:11 AM FURNACE LINER Rey Rousseau MD HEMATOLOGY [facility] LABORATORY [address] [place] [address], [place] * CVL TAVR (06/16/2023 8:31 AM FURNACE LINER) Anatomical Region Laterality Modality X-Ray Angiograph y 06/16/2023 8:31 AM FURNACE LINER Narrative Procedure Note Rey Rousseau MD - 06/16/2023 9:45 AM CST DATE OF SERVICE: 06/16/2023 PROCEDURE: Transcatheter aortic valve implantation. PREOPERATIVE DIAGNOSIS: Severe aortic stenosis POSTOPERATIVE DIAGNOSIS: s/p TAVR OPERATORS: Rey Rousseau MD, PhD García [facility] Arlene Lowe PA-C, MPAS Toni Osuna MD DESCRIPTION The risks, benefits [...] in hemodynamicallystable condition. Rey Rousseau MD, PhD Hospital Mortician [facility] [place][Note 2]'[facility] [address], [address] [place] [address] O: [phone] F: [phone] Transcriptions Rey Rousseau MD - 06/16/2023 10:05 AM CST [facility] [place][Note 2] at [facility] Cardiac Catheterization Report Name: TANNER JAMES Event Date: 06/16/2023 08:31 Excellian ID #: [id number] CASSIUS #: [id number] Diagnostic Physician: REY ROUSSEAU [facility] [place][Note 2] Interventional Physician: REY ROUSSEAU [facility] [place][Note 2] Referring Physician: Date: 1945 Gender: Female Age: [...] with primary physician * Follow up with director financial systems Consent & Reedy Protocol The risks, benefits, and alternatives of the procedure were discussed withthe patient and written informed consent was obtained. Reedy protocol was followed. TIME OUT conducted just prior tostarting procedure confirmed patient identity, site/side, procedure,patient position, and availability of correct equipment and implants (ifapplicable). Staff Name Title Rey Rousseau Hospital Mortician Toni Osuna Fellow Trinidad Raman RN Nurse Astrid Day RN Nurse Eder Salazar CVT Scrub Ralph Vizcaino RT(R) Monitor Arlene Lowe Physician Associate Pastor Kendell Lincoln Fellow Procedures ? Ultrasound Guided [...] 08:39 1% Lidocaine 10 ml Subcut Rey Rousseau, Toni 08:42 Heparin 6000 units IV Rey Rousseau [...] healthcare professional providing the sedation ends personal [id number] time with the patient. The medications listed above were verbally ordered by me and read back tome as documented above. Refer to the procedure log report for additional case details. electronically signed on 06/16/2023 10:05:06 AM with status of Final Rey Rousseau MD [facility] [address] [place] [address] (p) [phone](f) Rey Rousseau MD CV IMAGING * Glucose, Fasting (06/16/2023 6:48 AM FURNACE LINER) GLUCOSE 87 70 - 99 mg/dL 06/16/2023 7:39 AM FURNACE LINER [facility] LABORAT[facility] Blood BLOOD SPECIMEN / Unknown Venipuncture / Unknown 06/16/2023 6:48 AM FURNACE LINER 06/16/2023 6:54 AM FURNACE LINER Rehan Alarcon NP CHEMISTRY Performing Organization Address [facility] Co de Phone Number [facility] [address] * ALBUMIN (06/11/2023 8:58 AM FURNACE LINER) ALBUMIN 4.0 4.0 - 4.9 g/dL 06/11/2023 9:44 AM FURNACE LINER [facility] Blood BLOOD SPECIMEN / Unknown Venipuncture / Unknown 06/11/2023 8:58 AM FURNACE LINER 06/11/2023 9:05 AM FURNACE LINER Rey Rousseau MD CHEMISTRY Performing Organization Address [facility] de Phone Number [facility] [address] [place] [address], * SCAN-LABORATORY REPORT (05/13/2023 12:00 AM FURNACE LINER) Scanner OTHER * SCAN-CARDIAC STRIP (05/07/2023 9:50 PM FURNACE LINER) Scanner OTHER * NM CARDIAC AMYLOID TC PYP (05/07/2023 12:47 PM FURNACE LINER) Anatomical Region Laterality Modality Nuclear Medicine Impressions 05/07/2023 4:24 PM FURNACE LINER HMDP imaging was normal. Visual score was [...] Cardiology This study was performed by an [facility] Nuclear/PET Accredited Facility (Releasing physician is signing physician) Narrative 05/07/2023 4:24 PM FURNACE LINER Patient name: Tanner James ? Study date: May 07, 2023 HMDP CARDIAC AMYLOID IMAGING REPORT [facility] INDICATION: r/o cardiac amyloidosis. 77 y.o. female HEIGHT: 5 feet 3 inches ?WEIGHT: 143 pounds HISTORY: HF. NSTEMI. PAF. OTHER SYMPTOMATOLOGY INCLUDES: Kidney disease. HTN. COPD. PE. Left nephrectomy. Arlene SIMONS NM * SCAN-CARDIAC STRIP (05/07/2023 9:00 AM FURNACE LINER) Scanner OTHER * (ABNORMAL) IMMUNOFIXATION ELP, URINE (05/06/2023 7:50 PM FURNACE LINER) IFIX INTERP,URINE Immunofixation on urine shows incomplete monoclonal protein free lambda light chains with no associated heavy chain detected. The finding of a monoclonal protein may be associated with a lymphoproliferative or plasma cell disorder. Consider serum free light chains to further evaluate, if not already performed. Interpreted and electronically signed by: Kenisha Antoine MD 05/11/2023 7:38 PM FURNACE LINER [facility] PROTEIN QUANT,RAND URINE 21(H) 1 - 14 mg/dL 05/11/2023 7:38 PM FURNACE LINER [facility] Urine URINE SPECIMEN / Unknown Non-Blood / Unknown 05/06/2023 7:50 PM FURNACE LINER 05/06/2023 8:03 PM FURNACE LINER Arlene SIMONS URINE [facility] [address] 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 Interpreted and electronically signed by: Kenisha Antoine MD 05/11/2023 7:54 PM FURNACE LINER [facility] PROTEIN QUANT,RAND URINE 21(H) 1 - 14 mg/dL 05/11/2023 7:54 PM FURNACE LINER [facility] Urine URINE SPECIMEN / Unknown Non-Blood / Unknown 05/06/2023 7:50 PM FURNACE LINER 05/06/2023 8:03 PM FURNACE LINER Arlene SIMONS URINE Performing Organization Address City/[facility]/ZIP Co de Phone Number [facility] [address] [place] [address], * SCAN-CARDIAC STRIP (05/06/2023 7:08 PM FURNACE LINER) Scanner OTHER * (ABNORMAL) IMMUNOGLOBULINS FREE LT CHAIN SERUM (05/06/2023 5:11 PM FURNACE LINER) KAPPA FREE LIGHT CHAIN, S 3.51(H) 0.33 - 1.94 mg/dL 05/07/2023 1:58 PM FURNACE LINER [facility] TRAL LABORATORY LAMBDA FREE LIGHT CHAIN, S 3.75(H) 0.57 - 2.63 mg/dL 05/07/2023 1:58 PM FURNACE LINER [facility] TRAL LABORATORY KAPPA/LAMBDA FLC RATIO 0.94 0.26 - 1.65 05/07/2023 1:58 PM FURNACE LINER [facility] TRAL LABORATORY Blood BLOOD SPECIMEN / Unknown Butterfly / Unknown 05/06/2023 5:11 PM FURNACE LINER 05/06/2023 5:20 PM FURNACE LINER Arlene SIMONS SEND OUTS Performing Organization Address City/[facility]/ZIP Co de Phone Number [facility] [address] [place] [address], * (ABNORMAL) IMMUNOFIXATION,SERUM (05/06/2023 5:11 PM FURNACE LINER) IGG 474.46(L) 610.30 - 1,616.00 mg/dL 05/10/2023 4:58 PM FURNACE LINER [facility] LABORATORY- NTRAL LABORATORY IGA 43.55(L) 84.50 - 499.00 mg/dL 05/10/2023 4:58 PM FURNACE LINER [facility] NTRAL LABORATORY IGM 73.58 35.00 - 242.00 mg/dL 05/10/2023 4:58 PM FURNACE LINER [facility] NTRAL LABORATORY IFIX INTERP,SERUM Immunofixation on serum shows no monoclonal protein detected and no free light chains detected. Interpreted and electronically signed by: Kenisha Antoine MD 05/10/2023 4:58 PM FURNACE LINER [facility] LABORAT[facility] Blood BLOOD SPECIMEN / Unknown Butterfly / Unknown 05/06/2023 5:11 PM FURNACE LINER 05/06/2023 5:20 PM FURNACE LINER Arlene SIMONS [facility]MISTRY [facility] [address] [place] [address], * (ABNORMAL) PROTEIN ELP,SERUM (05/06/2023 5:11 PM FURNACE LINER) ELP,ALBUMIN 2.51(L) 3.31 - 5.31 g/dL 05/10/2023 4:58 PM FURNACE LINER [facility] LABOR[facility] ELP,ALPHA 1 0.38 0.19 - 0.42 g/dL 05/10/2023 4:58 PM FURNACE LINER [facility] ELP,ALPHA 2 0.73 0.44 - 1.03 g/dL 05/10/2023 4:58 PM FURNACE LINER [facility] ELP,GAMMA 0.42(L) 0.59 - 1.46 g/dL 05/10/2023 4:58 PM FURNACE [facility] ELP,BETA 0.46(L) 0.52 - 1.05 g/dL 05/10/2023 4:58 PM [facility]URNACE [facility] ELP INTERP,SERUM 1. Moderate hypogammaglobulinemia can [...] Kenisha Antoine MD ? 05/10/2023 4:58 PM FURNACE LINER [facility] PROTEIN,TOTA L 4.5(L) 6.0 - 8.0 g/dL 05/10/2023 4:58 PM FURNACE LINER [facility] Blood BLOOD SPECIMEN / Unknown Butterfly / Unknown 05/06/2023 5:11 PM FURNACE LINER 05/06/2023 5:20 PM FURNACE LINER Arlene SIMONS CHEMISTRY Performing Organization Address [facility] Co de Phone Number [facility] [address] [address], [place] * WHITE BLOOD COUNT (05/06/2023 8:09 AM FURNACE LINER) [facility] WHITE BLOOD COUNT 7.4 4.5 - 11.0 thou/cu mm 05/06/2023 8:58 AM FURNACE LINER [facility] NRBC 0.0 % 05/06/2023 8:58 AM FURNACE LINER [facility] ABS NRBC 0.0 thou /cu mm 05/06/2023 8:58 AM FURNACE LINER [facility] Blood BLOOD SPECIMEN / Unknown Butterfly / Unknown 05/06/2023 8:09 AM FURNACE LINER 05/06/2023 8:21 AM FURNACE LINER Allie Sylvester MD HEMATOLOGY Performing Organization Address City/[facility] Co de Phone Number [facility] [address] [address], [place] * CTA CHEST ABD PELVIS TAVR - DUAL READ (05/06/2023 7:41 AM FURNACE LINER) Anatomical Region Laterality Modality CHEST, Abdomen, Pelvis Computed Tomography Impressions 05/06/2023 12:17 PM FURNACE LINER 1. Subtle ground-glass opacities throughout the bilateral [...] AM (Electronic Signature) Narrative 05/06/2023 12:17 PM FURNACE LINER Images from the original result were not [...] Angles: Optimal deployment projection (balloon expandable device): PERSIAN 12, Caudal 11 degrees Optimal deployment projections [...] PATIENT: Results are automatically released to your [employer] ([employer]) account once available, in compliance with federal regulations. ?? This means that you may see your results before your provider has had a chance to review them. ??Please allow 2-3 business days for your provider to comment on the results. Ralph Hernandez MD [facility] For Patients: As a result of the 21st Century Cures Act, medical imaging exams and procedure reports are released immediately into your electronic medical record. ??You may view this report before your referring provider. ?? If you have questions, please contact your health care provider. OVER-READ ??OVER-READ ??OVER-READ OVER-READ: DETAILED RADIOLOGY EXTRACARDIAC OVER-READ OF CARDIAC CT 05/06/2023 TECHNIQUE: ??CTA of the chest, abdomen and pelvis was performed per [facility] protocol. Please see Cardiology dictation for details on technique. 100 cc Omnipaque-350 intravenous contrast. ?? This exam is being performed in conjunction with the services provided by the [facility] ([facility]). CLINICAL HISTORY: Over-read of non-cardiovascular structures [...] CT * SCAN-CARDIAC STRIP (05/06/2023 7:08 AM FURNACE LINER) Scanner OTHER * SCAN-CARDIAC STRIP (05/06/2023 3:38 AM FURNACE LINER) Scanner OTHER * SCAN-CARDIAC STRIP (05/05/2023 4:26 PM FURNACE LINER) Scanner OTHER * URINE CULTURE (05/05/2023 11:06 AM FURNACE LINER) CULTURE <10,000 CFU/mL multiple organisms 05/06/2023 11:54 AM FURNACE LINER [facility] Urine URINE SPECIMEN / Unknown Non-Blood / Unknown 05/05/2023 11:06 AM FURNACE LINER 05/05/2023 11:20 AM FURNACE LINER Allie Sylvester MD MICROBIOLOGY [facility] [address] [place] [address], * BLOOD CULTURE (05/05/2023 9:42 AM FURNACE LINER) Only the most recent of2 resultswithin the time period is included. CULTURE No Growth. 05/09/2023 10:13 AM FURNACE LINER [facility] Blood BLOOD SPECIMEN / Unknown Venipuncture / Unknown 05/05/2023 9:42 AM FURNACE LINER 05/05/2023 9:51 AM FURNACE LINER Narrative [facility] - 05/09/2023 10:13 AM FURNACE LINER Low volume blood culture received; possible false negative culture. Allie Sylvester MD MICROBIOLOGY Performing Organization Address City/[facility]/ZIP Co de Phone Number [facility] [address] [place] [address], * Lactate TODAY (05/05/2023 9:36 AM FURNACE LINER) [facility] LACTATE,VENOUS 1.5 0.5 - 2.0 mmol/L 05/05/2023 10:42 AM FURNACE LINER [facility] Blood BLOOD SPECIMEN / Unknown Venipuncture / Unknown 05/05/2023 9:36 AM FURNACE LINER 05/05/2023 9:51 AM FURNACE LINER Sunny Rivera MD CHEMISTRY Performing Organization Address [facility] Co de Phone Number [facility] [address] [place] [address], * SCAN CORRESP-LABORATORY RESULTS (05/05/2023 8:42 AM FURNACE LINER) Narrative 05/05/2023 8:42 AM FURNACE LINER Ordered by an unspecified provider. Other Clinical Staff OTHER * SCAN CORRESP-EKG RESULTS (05/05/2023 8:42 AM FURNACE LINER) Narrative 05/05/2023 8:42 AM FURNACE LINER Ordered by an unspecified provider. Other Clinical Staff OTHER * SCAN CORRESP-DIAGNOSTICS (05/05/2023 8:42 AM FURNACE LINER) Narrative 05/05/2023 8:42 AM FURNACE LINER Ordered by an unspecified provider. Other Clinical Staff OTHER * SCAN-CARDIAC STRIP (05/05/2023 8:11 AM FURNACE LINER) Scanner OTHER * (ABNORMAL) TROPONIN T (HS) ONE TIME (05/05/2023 4:40 AM FURNACE LINER) [facility] TROPONIN T HS 145(H) 6-10 ng/L ng/L 05/05/2023 5:38 AM FURNACE LINER [facility] Blood BLOOD SPECIMEN / Unknown Butterfly / Unknown 05/05/2023 4:40 AM FURNACE LINER 05/05/2023 4:50 AM FURNACE LINER Sunny Rivera MD CHEMISTRY Performing Organization Address [facility] Co de Phone Number [facility] [address] [place] [address], * (ABNORMAL) Pro Brain natriuretic peptide AM (05/05/2023 4:40 AM FURNACE LINER) PRO-BNP 7,685(H) <450 pg/mL 05/05/2023 5:41 AM FURNACE LINER [facility] Blood BLOOD SPECIMEN / Unknown Butterfly / Unknown 05/05/2023 4:40 AM FURNACE LINER 05/05/2023 4:50 AM FURNACE LINER Narrative [facility] - 05/05/2023 5:41 AM FURNACE LINER The following cut-points have been suggested for [...] failure. ? Sunny Rivera MD SEND OUTS [facility] [address] [place] [address], * SCAN-CARDIAC STRIP (05/05/2023 12:28 AM FURNACE LINER) Scanner OTHER * (ABNORMAL) TROPONIN T (HS) ACUTE W/2HR REFLEX (05/05/2023 12:12 AM FURNACE LINER) TROPONIN T HS 155(H) 6-10 ng/L ng/L 05/05/2023 12:56 AM FURNACE LINER [facility] Blood BLOOD SPECIMEN / Unknown Venipuncture / Unknown 05/05/2023 12:12 AM FURNACE LINER 05/05/2023 12:19 AM FURNACE LINER Narrative [facility] - 05/05/2023 12:56 AM FURNACE LINER hs-cTnT (Elecsys Troponin T Gen 5) concentration [...] department patient population. Sunny Rivera MD CHEMISTRY [employer] [facility] 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 Luo Dentistry - General 01/12/18
--- OUTSIDE RECORDS SUMMARY | 2023-07-23 14:56 | XMS_ITS | Referral Summary ---
Author Name Unknown Organization [facility] Address [address] [place] [address] Care Team Providers Care Mop Worker Name Role Phone Elsewhere, Pcp Primary Care Provider Unavailabl e Source Comments Patient records contain information from all sites at [facility]. For routine questions regarding patient records, call [phone] during business hours, M-F 8:00 AM - 5:00 PM Central Time. Record requests for emergency care only can be directed to [phone] at any time.[facility] Encounters Date Type Department Care Team Description 07/06/2023 Clinical Communication Department of Family Medicine in [place], [place] [address] [place] [address] Louie Malagon M.D. Cardiac Rehab [...] How often do you attend chur or oriental orthodox services? Never 08/12/2022 Do you belong to any clubs o r organizations such as orthodox groups, unions, fraternal or athletic groups, or [...] and heating? Not hard at all 08/12/2022 [facility] [place] of Occupat ional Health - Occupational Stress [...] place to sleep or slept in a detention (including now)? No 08/12/2022 Nutrition Answer Date [...] 36.1 ??C (97 ??F) 08/17/2022 10:57 AM GARBAGE DEPOT WORKER Respiratory Rate 18 01/09/2022 8:24 AM CDT Oxygen Saturation 98% 01/09/2022 8:24 AM CDT Inhaled Oxygen Concentration - - Weight 74.1 kg (163 lb 5.8 oz) 01/06/2022 11:26 AM CDT Height 160 cm (5' 2.99) 01/06/2022 11:26 AM CDT Body Mass Index 28.95 01/06/2022 11:26 AM CDT Plan of Treatment Not on file Advance Directives For more information, please contact: [phone] Latest Code Status on File Code Status Date Activated Date Inactivated Comments DNR/DNI 12/28/2021 12:42 PM 01/09/2022 1:10 PM Code Status History Code Status Date Activated Date Inactivated Comments DNR/DNI 12/23/2020 8:47 PM 12/25/2020 5:38 PM Full Code 12/23/2020 8:20 PM 12/23/2020 8:47 PM Question Answer Comments Full Code: Discussed Care Teams Mop Worker Relationship Specialty Start Date End Date Elsewhere, Pcp PCP - General 12/24/20
--- OUTSIDE RECORDS SUMMARY | 2023-07-23 14:56 | XMS_ITS | Continuity of Care Document ---
Author Name Unknown Organization [facility] Address [address] [place] [address] Phone Care Team Providers Care Assistant Professor Of Archaeology Name Role Phone Ritchie Mclaughlin MD Unavailable [...] before a meal 20 MG - Active Johnstown 5 mg-325 mg tablet take 1 - [...] by oral route 4 times every day [id number] UNITS - Active duloxetine 30 mg capsule,delayed release 1 cap PO qd for 2 weeks then may increase to 2 caps PO qd - Active Procedures Procedure Date OFFICE/OUTPATIENT VISIT, [facility] Advance Directives Directive Yes / No Effective Date File Name No Information Encounters Encounter Description Practice Location Reason(s) For Visit Diagnoses Date Provider Providers Copied on Encounter [facility], [address] [address], [place], [place], [id number], tel:[phone] [facility] No Information 3 Lissette Dugan. [address] [address], [place], [place], [id number] . tel: [phone] OFFICE/OUTPA TIENT VISIT, [facility], [address] [address], [place], [place], [id number], tel:[phone] [facility] Musculoskelet al Pain (chief complaint) Rheumatoid arthritis, unspecifiedFi bromyalgia 8 Yves Allen. [address] [address], [place], [place], [id number] , [place]. tel: [phone] Referring Provider: Alejandro Marinelli MD, [address] [address], [place], [address] . tel:[phone] Family History Family Member Type Diagnosis Age At Onset Mother Problem (finding) Alive and well Father Problem (finding) prostate cancer (Cause Of ) Mother Problem (finding) malignant neop lasm of breast in first degree relative Payers Payer name Insurance type Covered green party ID Authoriza tion(s) [place] [id number] Supplemental CI [id number] Social History Type Description Quantity Date Captured [...] 15 years ago. States she comes to [place] every 9 years and would like to establish care with our office today. Patient states she had established care with her International Travel Consultant back in [place] Dr. Henley and patient has brought some [...] medications for her pain. States she takes Johnstown prescribed by her previous International Travel Consultant Dr. Henley and states this takes the edge off but phillips not get full relief.Patient states she has tried Indocin 60mg but had a GI bleed due to taking this. States from 7589-1636 she tried Humira and states she could not afford it due to being on Medicare. States she also tried Orencia , Rituxan and Acetemra infusions in the past and states this was ineffective. States she is currently taking Remicade infusions and states she has them every [address] [facility]. States the Remicade has been increased twice sine starting this due to it being ineffective. Pt is currently taking Alendronate 70mg, FA, Johnstown 5-325mg PRN, Prednisone 2mg QD, MTX 5mg QWKPrior Rheumatology in [place] Dr. Swapnil Henley. Patient has records with [...]
--- OUTSIDE RECORDS SUMMARY | 2023-07-23 14:56 | XMS_ITS | Encounter Summary ---
Author Name Unknown Organization [facility] Address [address] [place] [address] Care Team Providers Care Bleach Supervisor Name Role Phone Basilio Healy MD Primary Care Provider Encounter Details Date Type Department Care Team Description 03/17/2023 Orders Only HIM DEPARTMENT Provider, [place] [address] Social History Tobacco Use Types Packs/Day Years [...] on filedocumented in this encounter Care Teams Bleach Supervisor Relationship Specialty Start Date End Date Basilio Healy MD [facility] [address] [place] [address] PCP - General Family Practice 10/28/22 documented as of this encounter
--- OUTSIDE RECORDS SUMMARY | 2023-07-23 14:56 | XMS_ITS | Encounter Summary ---
Author Name Unknown Organization [facility] Address [address] [place] [address] Care Team Providers Care Director Of Curriculum Name Role Phone Basilio Healy MD Primary Care Provider [phone] Reason for Visit * Reason Comments RESULTS, TEST Encounter Details Date Type Department Care Team Description 03/02/2023 Telephone Specialty [facility] [address] Pulmonary Medicine [address] [place] [address] Shara Mitchell MD [address] [facility] [address] [place] [address] RESULTS, TEST Social History Tobacco [...] after albuterol, sodium chloride and aerobika. Call [phone] to make a follow up appointment with Dr. Mitchell Call [facility] patient assistance program to see if they are able to help with cost of Advair [phone] * Shara Mitchell MD - 03/03/2023 8:27 AM CDT Sputum culture from [facility] 02/19/23 reviewed. It showed normal [...] on filedocumented in this encounter Care Teams Director Of Curriculum Relationship Specialty Start Date End Date Basilio Healy MD [facility] [address] [place] [address] PCP - General Family Practice 10/28/22 documented as of this encounter
--- OUTSIDE RECORDS SUMMARY | 2023-07-23 14:56 | XMS_ITS | Encounter Summary ---
Author Name Unknown Organization [facility] Address [address] [place] [address] Care Team Providers Care Bus Company Manager Name Role Phone Elsewhere, Pcp Primary Care Provider Unavailabl e Reason for Visit * Reason Onset Date Comments Cardiac Rehab 07/06/2023 Encounter Details Date Type Department Care Team (Late st Contact Info) Description 07/06/2023 Clinical Communication Department of Family Medicine in [place], [place] [address] [place] [phone] Louie Malagon M.D. [address] [place] [address] Cardiac Rehab Social History Tobacco [...] often do you attend chur ch or episcopalian services? Never 08/12/2022 Do you belong to any clubs o r organizations such as jehovah's witness groups, unions, fraternal or athletic groups, or [...] and heating? Not hard at all 08/12/2022 [facility] of Occupat ional Health - Occupational Stress [...] place to sleep or slept in a jail (including now)? No 08/12/2022 Nutrition Answer Date [...] Samanta Leigh R.N. - 07/06/2023 2:14 PM CORPORATE TUTOR Cardiac rehab referral received on 07/06/23. 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 Pt was admitted to 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 Compression treatment was unsuccessful. Pt underwent vascular surgical repair on 06/23/23. I contacted patient to determine if she is currently at a [facility] facility or at home. Advised to contact our office at her convenience. Electronically signed by: Samanta Leigh R.N. 07/06/23 2:21 PM CORPORATE TUTOR ORATE TUTOR documented in this encounter Plan of Treatment Not on file documented as of this encounter Visit Diagnoses Not on filedocumented in this encounter Care Teams Bus Company Manager Relationship Specialty Start Date End Date Elsewhere, Pcp PCP - General 12/24/20 documented as of this encounter
--- OUTSIDE RECORDS SUMMARY | 2023-07-23 14:56 | XMS_ITS | Encounter Summary ---
Author Name Unknown Organization [facility] Address [address] [place] [address] Care Team Providers Care Behavioral Health Clinician Name Role Phone Elsewhere, Pcp Primary Care Provider Unavailabl e Reason for Referral * Outpatient (Routine) - Authorized Specialty Diagnoses / Procedures Referred By Nithya urias Referred To Contact Orthopedic Surgery Bree Coker D.PRonak [address] [place] [address] [facility] Region Referral ID Status Reason Start Date Expiration Date V isits Requested Visits Authorized [id number] Authorized 08/17/2022 08/16/2025 1 1 RVISOR NET MAKING Reason for Visit * Reason Comments Nail Trim * Appointment Request (Routine) - Closed Specialty Diagnoses / Procedures Referred By Contac t Referred To Contact Podiatry Referral ID Status Reason Start Date Expiration Date Visits Re quested Visits Authorized [id number] Closed 08/12/2022 08/12/2023 1 1 Encounter Details Date Type Department Care Team (Latest Contact Info) Description 08/17/2022 11:15 AM SUPERVISOR NET MAKING Comprehensive Visit Department of Orthopedic Surgery in [place], [place] [address] [place] [phone] Bree Coker D.PShantanuMShantanu [address] [place] [address] Onychomycosis (Primary Dx); Arthritis Rheumatoid [...] often do you attend chur ch or samaritan services? Never 08/12/2022 Do you belong to any clubs o r organizations such as baptism groups, unions, fraternal or athletic groups, or [...] and heating? Not hard at all 08/12/2022 [facility] [place] of Occupat ional Health - Occupational Stress [...] place to sleep or slept in a care home (including now)? No 08/12/2022 Nutrition Answer [...] 36.1 ??C (97 ??F) 08/17/2022 10:57 AM SUPERVISOR NET MAKING Respiratory Rate - - Oxygen Saturation - - Inhaled Oxygen Concentration - - Weight - - Height - - Body Mass Index - - documented in this encounter Consult Notes * Bree Coker D.P.M. - 08/17/2022 11:15 AM CST [facility] New Patient Clinic [...] y.o. female who [facility]. Patient moved in with her daughter and her family recently from [place]. She was getting her toenails trimmed by [...] Just started 12/27/21; dose was being adjusted. mcdiqxeipwjy-In-rvcm-minerals tablet Take 1 tablet by mouth daily. [...] Friends and Family: Twice a week Attends Jehovah'S Witness Services: Never Active Member of Clubs or [...] Primary care physician: ELSEWHERE, PCP Jonelle SandersPShantanuMShantanu RVISOR NET MAKING documented in this encounter Plan of Treatment Scheduled Referrals Name Type Priority Associated Diagnoses Order Schedule Orthopedic Surgery office visit (clinic) Outpatient Referral Routine Expected: 11/14/2022 (Approximate), Expires: 11/15/2023 documented as of this encounter Visit Diagnoses Diagnosis Onychomycosis- Primary Arthritis Rheumatoid (HCC) Peripheral Vascular Disease (HCC) documented in this encounter Care Teams Behavioral Health Clinician Relationship Specialty Start Date End Date Elsewhere, Pcp PCP - General 12/24/20 documented as of this encounter
--- OUTSIDE RECORDS SUMMARY | 2023-07-23 14:56 | XMS_ITS ---
Author Name Unknown Organization [facility] Address [address] [place] [address] Care Team Providers Care Comfort Station Attendant Name Role Phone Unavailable Unavailable Unavailable Surgery Details Not on file Complications Check Surgery Details section. Procedure Estimated Blood Loss Check Surgery Details section. Procedure Findings Check Surgery Details section. Procedure Specimens Taken Check Surgery Details section.
--- OUTSIDE RECORDS SUMMARY | 2023-07-23 14:56 | XMS_ITS | Encounter Summary ---
Author Name Unknown Organization [facility] Address [address] [place] [address] Care Team Providers Care Anti Tank Missileman Name Role Phone Basilio Healy MD Primary Care Provider [phone] Encounter Details Date Type Department Care Team Description 07/13/2023 Orders Only [facility] [address] Rheumatology [address] [facility] [place], [place] [id number] Swapnil Henley MD [address] [place], [place] [id number] Social History Tobacco Use Types Packs/Day Years [...] on filedocumented in this encounter Care Teams Anti Tank Missileman Relationship Specialty Start Date End Date Basilio Healy MD [facility] [address] [facility] [address] PCP - General Family Practice 10/28/22 documented as of this encounter
--- OUTSIDE RECORDS SUMMARY | 2023-07-23 14:56 | XMS_ITS | Continuity of Care Document ---
Author Name Unknown Organization [facility] Address [address] [facility] [address] [place] [address] Phone Care Team Providers Care Retail Sales Associate Seasonal Name Role Phone Corona EASTMAN MD, Bailee [...] mL (20 mg/mL) intravenous solution as per development expert - No Longer Active Rasuvo (PF) 12.5 mg/0.25 mL subcutaneous auto-injector per rheumatology - No Longer Active prednisone 5 mg tablet take 1 tablet by oral route every day 5 MG - No Longer Active Procedures Procedure Date Unlisted Eval & Mgmt Serv Offic outpt EM [facility] Sever Advance Directives Directive Yes / No Effective Date File Name No Information Encounters Encounter Description Practice Location Reason(s) For Visit Diagnoses Date Provider Providers Copied on Encounter Unlisted Eval & Mgmt Serv [facility], [address], [place], [place], [id number], tel:[phone] [facility] Infusion. (chief complaint) Rheumatoid arthritis, unspecified Corona Morocho. [address] [place] [address],, [address], [place], [place], [id number], . tel:[phone] Referring Provider: Bailee Jeter MD, [address] [place] [address], [address], [place], [address]. tel:[phone] Offic outpt EM [facility], [address], [place], [place], [id number], tel:[phone] [facility] HTN. (chief complaint)e st care (chief complaint) Elevated blood pressure readingEdema Corona Morocho. [address] [place] [address],, [address], [place], [place], [id number], [place]. tel:[phone] Referring Provider: Bailee Jeter MD, [address] [place] [address]., [address], [place], [address]. tel:[phone] Family History Family Member Type Diagnosis Age At Onset Mother Problem (finding) malignant neop lasm of breast in first degree relative Mother Problem (finding) stroke Father Problem (finding) prostate cancer Mother Problem (finding) hypertension Payers Payer name Insurance type Covered constitution party ID Miriam matute(s) Medicare MB [id number] [place] [id number] Social History Type Description Quantity Date Captured [...] of HTN. Previous PCP retired. 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 Reports hx of RA, followed by development expert in [place]. Reports was seen in ER a few [...]
--- OUTSIDE RECORDS SUMMARY | 2023-07-23 14:56 | XMS_ITS | Continuity of Care Document ---
Author Name Unknown Organization [facility] Address [address] [place] [address] Phone Care Team Providers Care Mine Utility Operator Name Role Phone Unavailable Unavailable Unavailable Advance Directives Directive Yes / No Effective Date File Name No Information Encounters Encounter Description Practice Location Reason(s) For Visit Diagnoses Date Provider Providers Copied on Encounter [facility], [address], [place], [address], [place] tel:[phone] [facility] No Information [phone] No Information [...]
--- OUTSIDE RECORDS SUMMARY | 2023-07-23 14:56 | XMS_ITS | Clinical Summary ---
Author Name Unknown Organization [facility] Address [address] [place] [address] Care Team Providers Care Spindraw Operator Name Role Phone Basilio Healy MD Primary Care Provider [phone] Source Comments You are receiving this document as you are listed as the primary care provider,follow-up provider, or the patient has been referred to you for consultation.This is in compliance with the Medicare andJoint [facility] Hospital[facility] EHR Incentive Program,which states Providers who transition their patient to another setting of careor provider of care or refers their patient to another provider of care shouldprovide summary care record for each transition of care or referral. Myfac[employer] Allergies Active Allergy Reactions Criticality Noted Date [...] Patient receives drug assistance for Enbrel from [employer]. 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 Patient discontinued 05/2012. 12/20/2012 start venlafaxine 37.5mg Osteopenia 12/07/2011 Overview: Plate Glass Installer wants patient to be on alendronate indefinitely [...] 04/21/2010 Overview: HGB 9.6 ON ADMIT TO [facility] 03/2009; ENDOSCOPY REVEALED SHALLOW GASTRIC [...] Department Care Team Description 07/13/2023 Orders Only [place] [address] [place] [address]. [place] [address] Swapnil Henley MD 04/28/2023 Telephone [place] [address] [place] [address] [facility] [place] [address] Mna Sánchez MD FYI from Last 3 Months Immunizations Name Administration Dates Next Due Flu Vac (3+ yrs) 04/03/2013, 2,04/30/2010, 009,04/10/2003 Flu Vac Preserv Free (3+yrs) 04/30/2010,04/15/20 09 HepA Adult (19+ yrs) 10/20/2004,03/07/2004 HepA Ped/Adol (1-18 yrs) 10/20/2004 HepA, Pediatric (DO NOT USE; for MIIC only) 10/20/2004 IPV (Polio) 03/07/2004 Influenza (Fluad) 04/19/2018 Influenza IIV3 (Trivalent) F luzone Highdose, 65+ Yrs (59535) 04/25/2019,03/09/2016,03/30/2014 Influenza IIV4 (Quadrivalent ) 0.5mL (72220) 04/23/2021,04/25/2019,04/19/2018, 016,03/30/2014,04/03/2013,04/15/2012,08/2009,04/15/2009,04/10/2003 Influenza IIV4 (Quadrivalent ) Fluzone, [...] Comments Blood Pressure 135/72 07/18/2019 3:38 PM NUCLEAR SECURITY OFFICER Pulse 104 10/22/2022 1:45 PM CDT Temperature [...] Documents on File Type Date Recorded Patient Olive Knocker Expl anation POLST 02/02/2017 01/05/2017 Care Teams Spindraw Operator Relationship Specialty Start Date End Date Basilio Healy MD [facility] [address] [place] [address] PCP - General Family Practice 10/28/22
--- OUTSIDE RECORDS SUMMARY | 2023-07-23 14:56 | XMS_ITS | Encounter Summary ---
Author Name Unknown Organization [facility] Address [address] [place] [address] Care Team Providers Care Can Pusher Name Role Phone Basilio Healy MD Primary Care Provider [phone] Reason for Visit * Reason Comments Symptoms Encounter Details Date Type Department Care Team Description 02/16/2023 Telephone Specialty Center 3931 Pulmonary Medicine 3931 [place], [place] [phone] Shara Mitchell MD 3931 [facility] [address] [place], [place] [id number] Symptoms Social History Tobacco Use Types Packs/Day [...] to contact pt, no answer or VM. Stack Supervisor spoke to daughter, indicated pt will need [...] Ok to leave detailed message on phone [phone]. documented in this encounter Plan of Treatment Not on file documented as of this encounter Visit Diagnoses Not on filedocumented in this encounter Care Teams Can Pusher Relationship Specialty Start Date End Date Basilio Healy MD [facility] [address] [place] [address] PCP - General Family Practice 10/28/22 documented as of this encounter
--- OUTSIDE RECORDS SUMMARY | 2023-07-23 14:56 | XMS_ITS | Clinical Summary ---
Author Name Unknown Organization [facility] Address [address] [place] [address] Care Team Providers Care Canvas Goods Supervisor Name Role Phone Elsewhere, Pcp Primary Care Provider Unavailabl e Source Comments Patient records contain information from all sites at [facility]. For routine questions regarding patient records, call [phone] during business hours, M-F 8:00 AM - 5:00 PM Central Time. Record requests for emergency care only can be directed to [phone] at any time.[facility] Allergies Active Allergy Reactions Criticality Noted [...] mg /3 mL nebulizer solutionIndicati ons:Bronchiectas is ([facility]) USE 1 VIAL VIA NEBULIZER TWICE DAILY. USE PRIOR TO SALINE NEBULIZER SOLUTION FOR BRONCHIAL HYGIENE(MUCUS CLEARANCE) 180 mL 11 01/30/2022 Active sodium chloride (HYPERSAL) 7 % nebulizer solutionIndicati ons:Bronchiectas is ([facility]) USE 1 VIAL VIA NEBULIZER TWICE DAILY. [...] Clinical Communication Department of Family Medicine in [place] [address] [place] [address] Louie Malagon M.D. Cardiac Rehab from Last [...] How often do you attend chur or congregation services? Never 08/12/2022 Do you belong to any clubs o r organizations such as samaritan groups, unions, fraternal or athletic groups, or [...] and heating? Not hard at all 08/12/2022 [facility] of Occupat ional Health - Occupational Stress [...] 36.1 ??C (97 ??F) 08/17/2022 10:57 AM PATHOLOGY LABORATORY AIDES TEACHER Respiratory Rate 18 01/09/2022 8:24 AM CDT [...] Advance Directives For more information, please contact: [phone] Latest Code Status on File Code Status Date Activated Date Inactivated Comments DNR/DNI 12/28/2021 12:42 PM 01/09/2022 1:10 PM Code Status History Code Status Date Activated Date Inactivated Comments DNR/DNI 12/23/2020 8:47 PM 12/25/2020 5:38 PM Full Code 12/23/2020 8:20 PM 12/23/2020 8:47 PM Question Answer Comments Full Code: Discussed Care Teams Canvas Goods Supervisor Relationship Specialty Start Date End Date Elsewhere, Pcp PCP - General 12/24/20
--- OUTSIDE RECORDS SUMMARY | 2023-07-23 14:56 | XMS_ITS | Encounter Summary ---
Author Name Unknown Organization [facility] Address [address] [address] Care Team Providers Care Library Clerk Name Role Phone Basilio Healy MD Primary Care Provider [phone] Reason for Visit * Reason Comments FYI Encounter Details Date Type Department Care Team Description 04/28/2023 Telephone [place] [id number] [facility]umatology [address] [facility] [place] [address] Man Sánchez MD [address] [place] [address] FYI Social History Tobacco Use [...] the providers message and they verbalized understanding. RITY PROFESSIONAL * Man Sánchez MD - 05/03/2023 9:22 [...] while patient has been off the methotrexate. RITY PROFESSIONAL * Chela Brock RN - 04/28/2023 11:23 AM CDT FYI- Patient calling, is in [facility] in [place], [place]. She is calling to let you know [facility] Doctor, Dr. Hung has taken her off her methotrexate medication for good. He told her it was a terrible medication. She has a follow-up to see you in June. documented in this encounter Plan of Treatment Not on file documented as of this encounter Visit Diagnoses Not on filedocumented in this encounter Care Teams Library Clerk Relationship Specialty Start Date End Date Basilio Healy MD [facility] [address] [place] [address] PCP - General Family Practice 10/28/22 documented as of this encounter
--- OUTSIDE RECORDS SUMMARY | 2023-07-23 14:56 | XMS_ITS | Encounter Summary ---
Author Name Unknown Organization [facility] Address [address] [place] [address] Care Team Providers Care Associate Professor Of Mathematics Name Role Phone Basilio Healy MD Primary Care Provider [phone] Encounter Details Date Type Department Care Team Description 03/11/2023 Orders Only [facility] DEPARTMENT Provider, [place] [address] Social History Tobacco Use Types Packs/Day Years [...] on filedocumented in this encounter Care Teams Associate Professor Of Mathematics Relationship Specialty Start Date End Date Basilio Healy MD [facility] [address] [place] [address] PCP - General Family Practice 10/28/22 documented as of this encounter
--- OUTSIDE RECORDS SUMMARY | 2023-07-23 14:57 | XMS_ITS | Encounter Summary ---
Author Name Unknown Organization [facility] Address [address], [place] [address] Care Team Providers Care Pricing Supervisor Name Role Phone Unavailable Primary Care Provider Unavailabl e Reason for Visit * Reason Comments Orders Needed Encounter Details Date Type Department Care Team Description 09/21/2022 Telephone Specialty Center 3931 Pulmonary Medicine [address] [place], [place] [phone] Shara Mitchell MD 3931 [facility] [address] [place], [place] [phone] Orders Needed Social History Tobacco Use Types [...]
--- OUTSIDE RECORDS SUMMARY | 2023-07-23 14:57 | XMS_ITS | Encounter Summary ---
Author Name Unknown Organization [facility] Address [address] [place] [address] Care Team Providers Care Posting Specialist Name Role Phone Basilio Healy MD Primary Care Provider [phone] Reason for Referral * Procedure/Equipment (Routine) - Incomplete Specialty Diagnoses / Procedures Referred By Contac t Referred To Contact Diagnoses Bronchiectasis, uncomplicated (HRC) Lung infiltrate Procedures CT Chest WO IV Cont Shara Arango MD [address] [address] Referral ID Status Reason Start Date Expiration Date V isits Requested Visits Authorized [id number] Incomplete 04/30/2023 07/29/2024 1 1 * Consult/Transfer Care (Routine) - Closed Specialty Diagnoses / Procedures Referred By Contharley t Referred To Contact Diagnoses Bronchiectasis, uncomplicated (HRC) Shara Arango MD [address] [address] Referral ID Status Reason Start Date Expiration Date Visits Re quested Visits Authorized [id number] Closed 10/22/2022 04/20/2023 1 1 Scheduling Instructions [...] Description 10/22/2022 1:45 PM CDT Office Visit [facility] [address] [place] [address] Shara Arango MD 3931 [facility] [address] [place] [address] Bronchiectasis, uncomplicated (HRC) (Primary Dx); [...] PM CDTAddended by: ROCHELLE POWELL on: 10/28/2022 03:34 PM Modules accepted: [...] 04/23/22. She had been previously followed at [facility]. Please see my original consult note for full details. 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 Hospitalized at [facility] March 2021 7) History bilateral hemothoraces: Hospitalized at [place] December 2021. Chest tube on right. Improved [...] in updated POLST Return to pulmonary clinic ([place]) in 6 months with cherelle/DLCO and CT chest, sooner PRN. Shara Arango MD 10/22/2022 Total time: 65 minutes ADDENDUM: Called patient on 10/28/[address] chest results in more detail. I would like her to drop off a sputum sample at [facility] for [facility]B, funga, and routine cultures. documented [...] field documented in this encounter Care Teams Posting Specialist Relationship Specialty Start Date End Date Basilio Healy MD [facility] [address] [place] [address] PCP - General Family Practice 10/28/22 documented as of this encounter
--- OUTSIDE RECORDS SUMMARY | 2023-07-23 14:57 | XMS_ITS | Encounter Summary ---
Author Name Unknown Organization [facility] Address [address] [place] [address] Care Team Providers Care Connie Scratcher Name Role Phone Unavailable Primary Care Provider Unavailabl e Reason for Visit * Procedure/Equipment (Routine) - Incomplete Specialty Diagnoses / Procedures Referred By Contac t Referred To Contact Diagnoses Rheumatoid arthritis involving multiple joints (HRC) High risk medication use Current chronic use of systemic steroids Screening for osteoporosis Procedures [facility] Bone Density Spine[employer] aiHitt FX Assess DXA [facility] Density Spine/Hip Man Sánchez MD [address] [place] [address] Referral ID Status Reason Start Date Expiration Date V isits Requested Visits Authorized [id number] Incomplete 05/07/2022 08/06/2023 1 1 Encounter Details Date Type Department Care Team Description 10/07/2022 4:00 PM CDT Ancillary Procedure [place] [facility] [address] [place] [address] Man Sánchez MD [address] [place], [place] [address] Rheumatoid arthritis involving multiple joints (HRC); High [...] not included. Patient Name: Tanner James Densitometer: OpGen W Appt Dept/Resource: [facility] Bone Density GRANDA [...] trabecular bone, and is derived from the nlpyw-sw-[id number] changes of bone density embedded in the [...]
--- OUTSIDE RECORDS SUMMARY | 2023-07-23 14:57 | XMS_ITS | Encounter Summary ---
Author Name Unknown Organization [facility] Address [address] [address] Care Team Providers Care Transportation Planning Engineer Name Role Phone Basilio Healy MD Primary Care Provider [phone] Encounter Details Date Type Department Care Team Description 01/07/2023 3:00 PM CDT Lab Visit [facility] [address] [place] [address] Rheumatoid arthritis involving multiple joints [...] 3.5 - 10.5 x10(9)/L 01/07/2023 3:06 PM [facility] RBC 3.02(L) 3.90 - 5.03 x10(12)/L 01/07/2023 3:06 PM [facility] Hemoglobin 10.2(L) 12.0 - 15.5 g/dL 01/07/2023 3:06 PM [facility] HCT 33.2(L) 34.9 - 44.5 % 01/07/2023 3:06 PM [facility] MCV 109.9(H) 80.0 - 100.0 fL 01/07/2023 3:06 PM [facility] MCH 33.8(H) 27.6 - 33.3 pg 01/07/2023 3:06 PM [facility] MCHC 30.7(L) 31.5 - 35.2 g/dL 01/07/2023 3:06 PM [facility] RDW 17.1(H) 11.9 - 15.5 % 01/07/2023 3:06 PM [facility] Platelets 155 150 - 450 x10(9)/L 01/07/2023 3:06 PM [facility] Automated NRBC 0 <=0 /100 WBC 01/07/2023 3:06 PM [facility] Neutrophil Absolute 10.3(H) 1.7 - 7.0 10(9)/L 01/07/2023 3:06 PM [facility] Lymphocyte Absolute 0.5(L) 1.0 - 4.8 10(9)/L 01/07/2023 3:06 PM [facility] Monocyte Absolute 0.1(L) 0.2 - 0.9 10(9)/L 01/07/2023 3:06 PM [facility] Eosinophil Absolute 0.0 0.0 - 0.5 10(9)/L 01/07/2023 3:06 PM [facility] Basophil Absolute 0.0 0.0 - 0.3 10(9)/L 01/07/2023 3:06 PM [facility] Immature Granulocyte % 0.9(H) 0.0 - 0.5 % 01/07/2023 3:06 PM [facility] Blood Venipuncture / Unknown 01/07/2023 3:02 PM CDT 01/07/2023 3:02 PM CDT Man Sánchez MD LAB_1 [facility] [address] [place] [address], [facility] [phone] * (ABNORMAL) Creatinine / GFR (every 3 months) (01/07/2023 3:02 PM CDT) Creatinine 1.00 0.55 - 1.02 mg/dL 01/07/2023 4:35 PM [facility] GFR, Estimated 59(L) >60 mL/min/1.7 3m2 01/07/2023 4:35 PM [facility] Blood Venipuncture / Unknown 01/07/2023 3:02 PM CDT 01/07/2023 3:02 PM CDT Narrative [facility] - 01/07/2023 4:35 PM CDT The National Kidney Disease Education Program suggests measuring Cystatin C in patients with eGFRcrea of 45 to 59 ml/min/1.73^2 who do not have other markers of kidney damage (i.e. elevated urine Albumin/Creatinine Ratio or a prior Cystatin C confirming the presence of chronic kidney disease). Man Sánchez MD LAB_1 Performing Organization Address [facility] de Phone Number [facility] [address] [place], [place] [address], [facility] [phone] * AST (every 3 months) (01/07/2023 3:02 PM CDT) AST (SGOT) 40 10 - 40 U/L 01/07/2023 4:35 PM CDT [facility] Blood Venipuncture / Unknown 01/07/2023 3:02 PM CDT 01/07/2023 3:02 PM CDT Man Sánchez MD LAB_1 Performing Organization Address [facility] Phone Number [address] [address], [facility] [phone] * ALT (SGPT) (every 3 months) (01/07/2023 3:02 PM CDT) ALT (SGPT) 28 <=55 U/L 01/07/2023 4:35 PM CDT [facility] Blood Venipuncture / Unknown 01/07/2023 3:02 PM CDT 01/07/2023 3:02 PM CDT Man Sánchez MD LAB_1 Performing Organization Address [facility] de Phone Number [facility] [address] [place] [address], [facility] [phone] * (ABNORMAL) ESR (01/07/2023 3:02 PM CDT) Sedimentation Rate 27(H) 0 - 20 mm/hr 01/07/2023 3:41 PM CDT [facility] Blood Venipuncture / Unknown 01/07/2023 3:02 PM CDT 01/07/2023 3:02 PM CDT Man Sánchez MD LAB_1 Performing Organization Address [facility]/ZIP Co de Phone Number [facility] [address] [place] [address], [facility] [phone] * (ABNORMAL) C-Reactive Protein (01/07/2023 3:02 PM CDT) C-Reactive Protein 5.5(H) 0.0 - 0.7 mg/dL 01/07/2023 4:35 PM CDT [facility] Blood Venipuncture / Unknown 01/07/2023 3:02 PM CDT 01/07/2023 3:02 PM CDT Man Sánchez MD LAB_1 Performing Organization Address [facility]/ZIP Co de Phone Number [facility] [address] [place] [address], [facility] [phone] documented in this encounter Visit Diagnoses Diagnosis Rheumatoid arthritis involving multiple joints (HRC) High risk medication use Encounter for long-term (current) use of other medications documented in this encounter Care Teams Transportation Planning Engineer Relationship Specialty Start Date End Date Basilio Healy MD [facility] [address] [place] [address] PCP - General Family Practice 10/28/22 documented as of this encounter
--- OUTSIDE RECORDS SUMMARY | 2023-07-23 14:57 | XMS_ITS | Encounter Summary ---
Author Name Unknown Organization [facility] Address [address] [place] [address] Care Team Providers Care Silk Presser Name Role Phone Basilio Healy MD Primary Care Provider [phone] Reason for Visit * Reason Comments RESULTS, TEST Encounter Details Date Type Department Care Team Description 11/10/2022 Telephone Specialty Center 3931 Pulmonary Medicine [address] [place] [address] Shara Mitchell MD [address] [facility] [address] [place] [address] RESULTS, TEST Social History Tobacco [...] Cough documented in this encounter Care Teams Silk Presser Relationship Specialty Start Date End Date Basilio Healy MD [facility] [address] [place] [address] PCP - General Family Practice 10/28/22 documented as of this encounter
--- OUTSIDE RECORDS SUMMARY | 2023-07-23 14:57 | XMS_ITS | Encounter Summary ---
Author Name Unknown Organization [facility] Address [address], [place] [address] Care Team Providers Care Meter Inspector Name Role Phone Unavailable Primary Care Provider Unavailabl e Reason for Visit * Reason Comments Phone Visit Encounter Details Date Type Department Care Team Description 10/08/2022 12:30 PM CDT Phone Visit [facility] [address] [place], [place] [address] Man Sánchez MD [address] [place] [address] Rheumatoid arthritis involving multiple joints (HRC) (Primary [...] Morbid obesity with BMI of 40.0-44.9, adult ([facility]) 11/15/2015 Pneumonia 12/10/2016 with PE Pulmonary embolism ([facility]) 12/14/2016 Rheumatoid arthritis(714.0) ([facility]) 12/25/2008 Shoulder impingement 04/03/2013 Past Surgical History: Procedure Laterality Date COLONOSCOPY W/ POLYPECTOMY ([facility]) 10/26/2018 2 specimens (5 polyp). 3 year follow up ESOPHAGOGASTRODUODENOSCOPY ([facility]) 04/14/09 eswl LUMBAR FUSION ([facility]) 04/2010 lami and fusion; Dr Corea Outpatient Encounter Medications as of 10/08/2022 Medication Sig Dispense Refill albuterol 2.5 mg/3 mL, 0.083%, (PROVENTIL) nebulizer solution 1 Vial (2.5 mg) by Nebulization routeevery 6 hours as needed for Wheezing. 180 mL 11 alendronate (FOSAMAX) 70 MG tablet Take 1 Tablet (70 mg) by mouth once every week. Take 30 minutes before first hztp-secny-wvunfxhkft. Avoid lying down for 30 minutes. 13 [...] every week. Take 30 minutes before first qlhi-iqbnb-vcaxfquqvq. Avoid lying down for 30 minutes. (Patient not taking: Reported on 02/02/2022) [DISCONTINUED] allopurinol (ZYLOPRIM) 300 MG tablet Take 300 mg by mouth. (Patient not taking: Reported on 02/02/2022) [DISCONTINUED] ATENolol (TENORMIN) 25 MG tablet Take 1 tablet by mouth daily (every 24 hours). LW Comment:taking for jitteriness LW Addl Instr:given by Dr Monet at [facility] (Patient not taking: Reported on 02/02/2022) 90 [...] GI Bleeding; HUT Severity: High; HUT Noted: [id number] Levaquin [Levofloxacin] Other, see comments Muscles snapped [...] previous medical records, consulting patient and charting. Mna Sánchez. Rheumatology [facility] This note consists of symbols derived from keyboarding, and voice recognition software. As a result, wrong word or 'kevyl-n-ovvy' substitutions may have occurred due to the [...]
--- OUTSIDE RECORDS SUMMARY | 2023-07-23 14:57 | XMS_ITS | Encounter Summary ---
Author Name Unknown Organization [facility] Address [address] [place] [address] Care Team Providers Care Rapid Outsole Stitcher Name Role Phone Basilio Healy MD Primary Care Provider [phone] Reason for Visit * Reason Comments Refill Encounter Details Date Type Department Care Team Description 11/15/2022 Refill Specialty Center 3931 Pulmonary Medicine [address] [place], [place] [phone] Shara Mitchell MD [address] [facility] [address] [place], [place] [address] Refill Social History Tobacco Use Types Packs/Day [...] on filedocumented in this encounter Care Teams Rapid Outsole Stitcher Relationship Specialty Start Date End Date Basilio Healy MD [facility] [address] [place] [address] PCP - General Family Practice 10/28/22 documented as of this encounter
--- OUTSIDE RECORDS SUMMARY | 2023-07-23 14:57 | XMS_ITS | Encounter Summary ---
Author Name Unknown Organization [facility] Address [address] [place] [address] Care Team Providers Care Medical Staff Services Coordinator Name Role Phone Unavailable Primary Care Provider Unavailabl e Encounter Details Date Type Department Care Team Description 08/27/2022 Orders Only HIM DEPARTMENT Provider, [place] [address] Social History Tobacco Use Types Packs/Day Years [...]
--- OUTSIDE RECORDS SUMMARY | 2023-07-23 14:57 | XMS_ITS | Encounter Summary ---
Author Name Unknown Organization [facility] Address [address] [place] [address] Care Team Providers Care Director Emergency Name Role Phone Basilio Healy MD Primary Care Provider [phone] Encounter Details Date Type Department Care Team Description 12/23/2022 Orders Only HIM DEPARTMENT Provider, [place] [address] Social History Tobacco Use Types Packs/Day Years [...] filedocumented in this encounter Care Teams Director Emergency Relationship Specialty Start Date End Date Basilio Healy MD [facility] [address] [place] [address] PCP - General Family Practice 10/28/22 documented as of this encounter
--- OUTSIDE RECORDS SUMMARY | 2023-07-23 14:57 | XMS_ITS | Encounter Summary ---
Author Name Unknown Organization [facility] Address [address] [place] [address] Care Team Providers Care Service Establishment Attendant Name Role Phone Basilio Healy MD Primary Care Provider [phone] Reason for Visit * Reason Comments Prior Authorization For Medication Encounter Details Date Type Department Care Team Description 11/04/2022 Telephone [facility] 3931 Pulmonary Medicine [address]31 [place], [place] [phone] Shara Mitchell MD [address] [facility] [address] [place], [place] [phone] Prior Authorization For Medication Social History Tobacco [...] on filedocumented in this encounter Care Teams Service Establishment Attendant Relationship Specialty Start Date End Date Basilio Healy MD [facility] [address] [place] [address] PCP - General Family Practice 10/28/22 documented as of this encounter
--- OUTSIDE RECORDS SUMMARY | 2023-07-23 14:57 | XMS_ITS | Encounter Summary ---
Author Name Unknown Organization [facility] Address [address], [place] [address] Care Team Providers Care Chemistry Faculty Member Name Role Phone Basilio Healy MD Primary Care Provider [phone] Reason for Visit * Reason Comments Symptoms Encounter Details Date Type Department Care Team Description 10/29/2022 Telephone [facility] 3931 Pulmonary Medicine [address]31 [place], [place] [phone] Shara Mitchell MD 3931 [facility] [address] [place], [place] [phone] Symptoms Social History Tobacco Use Types Packs/Day [...] yesterday to drop off a sample in [place]. So, she should be receiving those soon. [...] Primary documented in this encounter Care Teams Chemistry Faculty Member Relationship Specialty Start Date End Date Basilio Healy MD [facility] [address] [place] [address] PCP - General Family Practice 10/28/22 documented as of this encounter
--- OUTSIDE RECORDS SUMMARY | 2023-07-23 14:57 | XMS_ITS | Encounter Summary ---
Author Name Unknown Organization [facility] Address [address], [place] [address] Care Team Providers Care Conference Assistant Name Role Phone Basilio Healy MD Primary Care Provider Encounter Details Date Type Department Care Team Description 12/17/2022 Telephone Specialty Center 3931 Pulmonary Medicine [address]31 [place], [place] [phone] Shara Mitchell MD 3931 [facility] [address] [place] [address] Social History Tobacco Use Types [...] on filedocumented in this encounter Care Teams Conference Assistant Relationship Specialty Start Date End Date Basilio Healy MD [facility] [address] [place] [address] PCP - General Family Practice 10/28/22 documented as of this encounter
--- OUTSIDE RECORDS SUMMARY | 2023-07-23 14:57 | XMS_ITS | Encounter Summary ---
Author Name Unknown Organization [facility] Address [address] [place] [address] Care Team Providers Care Montessori Preschool Teacher Name Role Phone Unavailable Primary Care Provider Unavailabl e Reason for Visit * Reason Comments Symptoms Encounter Details Date Type Department Care Team Description 10/01/2022 Telephone Specialty Center 3931 Pulmonary Medicine 3931 [place], [place] [phone] Shara Mitchell MD [address] [facility] [address] [place], [place] [phone] Symptoms Social History Tobacco Use Types Packs/Day [...] having problems breathing and requesting call back. #[phone] Pt contacted. ER x2 in the last [...]
--- OUTSIDE RECORDS SUMMARY | 2023-07-23 14:57 | XMS_ITS | Encounter Summary ---
Author Name Unknown Organization [facility] Address [address] [place] [address] Care Team Providers Care Fisheries Diver Name Role Phone Unavailable Primary Care Provider Unavailabl e Reason for Visit * Reason Comments Symptoms Encounter Details Date Type Department Care Team Description 09/15/2022 Telephone Specialty Center 3931 Pulmonary Medicine [address]31 [place], [place] [phone] Shara Mitchell MD 3931 [facility] [address] [place], [place] [phone] Symptoms Social History Tobacco Use Types Packs/Day [...] start AM sinus rinse. Pt will call content producer due to new feet edema. Dr Mitchell is out of the office but per last note If cough/dyspnea worsen, could consider a trial of ICS/LABA inhaler . Please advise on a new ics/laba start. Thank you Pharmacy:[facility] [place] documented in this encounter Plan of Treatment Not on file documented as of this encounter Visit Diagnoses Not on filedocumented in this encounter
--- OUTSIDE RECORDS SUMMARY | 2023-07-23 14:57 | XMS_ITS | Encounter Summary ---
Author Name Unknown Organization [facility] Address [address] [place] [address] Care Team Providers Care Technical Sales Support Manager Name Role Phone Unavailable Primary Care Provider Unavailabl e Encounter Details Date Type Department Care Team Description 10/22/2022 1:00 PM CDT Pulmonary Lab Visit PULMONARY LAB AT [address] [address] Bronchiectasis, uncomplicated (HRC); Chronic cough Social History [...]
--- OUTSIDE RECORDS SUMMARY | 2023-07-23 14:57 | XMS_ITS | Encounter Summary ---
Author Name Unknown Organization [facility] Address [address] [place] [address] Care Team Providers Care Athlete Manager Name Role Phone Unavailable Primary Care Provider Unavailabl e Reason for Visit * Procedure/Equipment (Routine) - Incomplete Specialty Diagnoses / Procedures Referred By Contac t Referred To Contact Procedures Foreign Image(S) XR Chest Provider, Foreign Images [address] [place] [address] Referral ID Status Reason Start Date Expiration Date V isits Requested Visits Authorized [id number] Incomplete 09/23/2022 12/23/2023 1 1 Encounter Details Date Type Department Care Team Description 09/15/2022 9:00 AM CDT Ancillary Procedure [facility] [address] [place] [address] Provider, Foreign Images [address] [place] [address] Social History Tobacco Use Types Packs/Day Years [...] Provider RAD NON-REPORTAB LES Performing Organization Address City/State/[facility] Co de Phone Number POCT documented in this encounter Visit Diagnoses Not on filedocumented in this encounter
--- OUTSIDE RECORDS SUMMARY | 2023-07-23 14:57 | XMS_ITS | Encounter Summary ---
Author Name Unknown Organization [facility] Address [address] [place] [address] Care Team Providers Care Second Hand Paper Machine Name Role Phone Unavailable Primary Care Provider Unavailabl e Encounter Details Date Type Department Care Team Description 09/17/2022 Notes/Orders [facility] [address] [place], [place] [address] Man Sánchez MD [address] [place] [address] Social History Tobacco Use Types [...]
--- OUTSIDE RECORDS SUMMARY | 2023-07-23 14:57 | XMS_ITS | Encounter Summary ---
Author Name Unknown Organization [facility] Address [address], [place] [address] Care Team Providers Care Special Education Math Teacher Name Role Phone Basilio Healy MD Primary Care Provider [phone] Reason for Visit * Reason Comments Follow-up Encounter Details Date Type Department Care Team Description 01/07/2023 2:30 PM CDT Office Visit [facility] [address] [place] [address] Man Sánchez MD [facility] [place], [place] [phone] Rheumatoid arthritis involving multiple joints (HRC) (Primary [...] went through rehab 2007 Gastritis 03/2009 Hypertension ([facility]) 04/13/2009 Kidney stone LBP (low back pain) Morbid obesity with BMI of 40.0-44.9, adult ([facility]) 11/15/2015 Pneumonia 12/10/2016 with PE Pulmonary embolism ([facility]) 12/14/2016 Rheumatoid arthritis(714.0) ([facility]) 12/25/2008 Shoulder impingement 04/03/2013 Past Surgical History: Procedure Laterality Date COLONOSCOPY W/ POLYPECTOMY ([facility]) 10/26/2018 2 specimens (5 polyp). 3 year follow up ESOPHAGOGASTRODUODENOSCOPY ([facility]) 04/14/09 eswl LUMBAR FUSION ([facility]) 04/2010 lami and fusion; Dr [...] every week. Take 30 minutes before first [id number]-[id number]. Avoid lying down for 30 minutes. 01/07/2023: [...] GI Bleeding; HUT Severity: High; HUT Noted: [id number] Levaquin [Levofloxacin] Other, see comments Muscles snapped [...] consulting patient and charting. Man Sánchez. Rheumatology [facility] 01/07/2023 This note consists of symbols derived from keyboarding, and voice recognition software. As a result, wrong word or 'vrnia-x-nsyj' substitutions may have occurred due to the [...] - 1.02 mg/dL 01/07/2023 4:35 PM CDT [facility] GFR, Estimated 59(L) >60 mL/min/1.7 3m2 01/07/2023 4:35 PM CDT [facility] Blood Venipuncture / Unknown 01/07/2023 3:02 PM CDT 01/07/2023 3:02 PM CDT Narrative [facility] - 01/07/2023 4:35 PM CDT The National Kidney Disease Education Program suggests measuring Cystatin C in patients with eGFRcrea of 45 to 59 ml/min/1.73^2 who do not have other markers of kidney damage (i.e. elevated urine Albumin/Creatinine Ratio or a prior Cystatin C confirming the presence of chronic kidney disease). Man Sánchez MD LAB_1 Performing Organization Address City/[facility]/ZIP Co de Phone Number [facility] [address] [place] [address], [facility] [phone] * AST (every 3 months) (01/07/2023 3:02 PM CDT) AST (SGOT) 40 10 - 40 U/L 01/07/2023 4:35 PM CDT [facility] Blood Venipuncture / Unknown 01/07/2023 3:02 PM CDT 01/07/2023 3:02 PM CDT Man Sánchez MD LAB_1 Performing Organization Address [facility]/ZIP Co de Phone Number [facility] [address] [place] [address], [facility] [phone] * ALT (SGPT) (every 3 months) (01/07/2023 3:02 PM CDT) ALT (SGPT) 28 <=55 U/L 01/07/2023 4:35 PM CDT [facility] Blood Venipuncture / Unknown 01/07/2023 3:02 PM CDT 01/07/2023 3:02 PM CDT Man Sánchez MD LAB_1 Performing Organization Address [facility]/ZIP Co de Phone Number [facility] [address] [place] [address], [facility] [phone] * (ABNORMAL) ESR (01/07/2023 3:02 PM CDT) Pathologist [facility] Sedimentation Rate 27(H) 0 - 20 mm/hr 01/07/2023 3:41 PM CDT [facility] Blood Venipuncture / Unknown 01/07/2023 3:02 PM CDT 01/07/2023 3:02 PM CDT Man Sánchez MD LAB_1 Performing Organization Address [facility] de Phone Number [facility] [address] [place] [address], [facility] [phone] * (ABNORMAL) C-Reactive Protein (01/07/2023 3:02 PM CDT) Pathologist [facility] C-Reactive Protein 5.5(H) 0.0 - 0.7 mg/dL 01/07/2023 4:35 PM CDT [facility] Blood Venipuncture / Unknown 01/07/2023 3:02 PM CDT 01/07/2023 3:02 PM CDT Man Sánchez MD LAB_1 Performing Organization Address [facility] Co de Phone Number [facility] [address] [place] [address], [facility] [phone] documented in this encounter Visit Diagnoses Diagnosis [...] (LDH) documented in this encounter Care Teams Special Education Math Teacher Relationship Specialty Start Date End Date Basilio Healy MD [facility] [address] [place] [address] PCP - General Family Practice 10/28/22 documented as of this encounter
--- OUTSIDE RECORDS SUMMARY | 2023-07-23 14:57 | XMS_ITS | Encounter Summary ---
Author Name Unknown [facility] Address [address] [place] [address] Care Team Providers Care Multimedia Author Name Role Phone Basilio Healy MD Primary Care Provider [phone] Reason for Visit * Reason Onset Date Comments Refill 12/17/2022 Encounter Details Date Type Department Care Team Description 12/17/2022 Refill Specialty Center 3931 Pulmonary Medicine [address] [place], [place] [phone] Shara Mitchell MD [address] [facility] [address] [place] [address] Refill Social History Tobacco Use [...] Cough documented in this encounter Care Teams Multimedia Author Relationship Specialty Start Date End Date Basilio Healy MD [facility] [address] [place] [address] PCP - General Family Practice 10/28/22 documented as of this encounter
--- OUTSIDE RECORDS SUMMARY | 2023-07-23 14:57 | XMS_ITS | Encounter Summary ---
Author Name Unknown Organization [facility] Address [address] [place] [address] Care Team Providers Care Underbaster Name Role Phone Unavailable Primary Care Provider Unavailabl e Encounter Details Date Type Department Care Team Description 09/24/2022 Orders Only HIM DEPARTMENT Provider, MD [place] [address] Social History Tobacco Use Types Packs/Day Years [...]
--- OUTSIDE RECORDS SUMMARY | 2023-07-23 14:57 | XMS_ITS | Encounter Summary ---
Author Name Unknown Organization [facility] Address [address] [place] [address] Care Team Providers Care Flour Blender Name Role Phone Unavailable Primary Care Provider Unavailabl e Reason for Visit * Procedure/Equipment (Routine) - Incomplete Specialty Diagnoses / Procedures Referred By Contac t Referred To Contact Diagnoses Bronchiectasis, uncomplicated (HRC) Chronic cough Immunosuppression (HRC) Procedures CT Chest WO IV Cont Shara Mitchell MD [address] [address] Referral ID Status Reason Start Date Expiration Date V isits Requested Visits Authorized [id number] Incomplete 10/22/2022 01/21/2024 1 1 Encounter Details Date Type Department Care Team Description 10/22/2022 11:40 AM CDT Ancillary [place] [address] [place], [place] [address] Shara Mitchell MD [address] [address] Bronchiectasis, uncomplicated (HRC); Chronic cough; Immunosuppression (HRC) [...] along the right anterior aspect of the [id number] body stability favors benign etiology. These could [...] 5 slice 30- 38). There are also csxwuds-ji-vnm opacities in the left upper lobe laterally [...]
--- OUTSIDE RECORDS SUMMARY | 2023-07-23 14:57 | XMS_ITS | Encounter Summary ---
Author Name Unknown Organization [facility] Address [address], [place] [address] Care Team Providers Care Anode Machine Operator Name Role Phone Basilio Healy MD Primary Care Provider [phone] Reason for Referral * Procedure/Equipment (Routine) - Incomplete Specialty Diagnoses / Procedures Referred By Contac t Referred To Contact Diagnoses Bronchiectasis, uncomplicated (HRC) Lung infiltrate Procedures CT Chest WO IV Cont Shara Mitchell MD [address] [place] [address] Referral ID Status Reason Start Date Expiration Date V isits Requested Visits Authorized [id number] Incomplete 04/21/2023 07/20/2024 1 1 Reason for Visit * Reason Comments ORDERS Encounter Details Date Type Department Care Team Description 12/04/2022 Telephone Specialty Center [facility] Pulmonary Medicine [address] [place] [id number] Shara Mitchell MD [facility] [address] [address] ORDERS Social History Tobacco Use Types Packs/Day [...] 9:22 AM CDT Sputum order faxed to [place]. Pt scheduled for ct prior to appt [...] order for future Sputum Culture sent to [facility]. Ct scan is order for after 04/30/23, [...] field documented in this encounter Care Teams Anode Machine Operator Relationship Specialty Start Date End Date Basilio Healy MD [facility] [address] [place] [address] PCP - General Family Practice 10/28/22 documented as of this encounter
--- OUTSIDE RECORDS SUMMARY | 2023-07-23 14:58 | XMS_ITS | Encounter Summary ---
Author Name Unknown Organization [facility] Address [address] [place] [address] Care Team Providers Care Dog Pound Attendant Name Role Phone Basilio Healy MD Primary Care Provider [phone] Reason for Visit * Reason Comments Refill Encounter Details Date Type Department Care Team Description 02/06/2016 Refill [facility] [address]00 Rheumatology [address]00 [facility] [place], [place] [address] Swapnil Henley MD [address] [place] [address] Refill Social History Tobacco Use Types Packs/Day Years Used Date Smoking Tobacco: Never Assessed Sex and Gender Information Value Date Recorded Sex Assigned at Not on file Gender Identity Not on file Sexual Orientation Not on file documented as of this encounter Plan of Treatment Not on file documented as of this encounter Visit Diagnoses Not on filedocumented in this encounter Care Teams Dog Pound Attendant Relationship Specialty Start Date End Date Basilio Healy MD [facility] [address] [place] [address] PCP - General Family Practice 10/28/22 documented as of this encounter
--- OUTSIDE RECORDS SUMMARY | 2023-07-23 14:58 | XMS_ITS | Encounter Summary ---
Author Name Unknown Organization [facility] Address [address] [place] [address] Care Team Providers Care Embedded Firmware Developer Name Role Phone Unavailable Primary Care Provider Unavailabl e Reason for Visit * Reason Comments RESULTS, TEST Encounter Details Date Type Department Care Team Description 08/14/2022 Telephone Specialty Center 3931 Pulmonary Medicine [address] [place], [place] [phone] Shara Mitchell MD [address] [facility] [address] [place], [place] [phone] RESULTS, TEST Social History Tobacco Use Types [...] video visit on 08/24 at 8:30 am. Y WORKER * Vianney Dan RN - 08/19/2022 1:54 PM CST Called [...] if any action is needed. Thank you! Y WORKER * Shara Mitchell MD - 08/19/2022 10:12 [...] symptoms. Has she taken any recent antibiotics? Y WORKER * Rochelle Lynch RN - 08/14/2022 7:45 AM CST Please review sputum culture. On sign board Y WORKER documented in this encounter Plan of Treatment Not on file documented as of this encounter Visit Diagnoses Not on filedocumented in this encounter
--- OUTSIDE RECORDS SUMMARY | 2023-07-23 14:58 | XMS_ITS | Encounter Summary ---
Author Name Unknown Organization [facility] Address [address] [place] [address] Care Team Providers Care Brewery Pumper Name Role Phone Unavailable Primary Care Provider Unavailabl e Reason for Visit * Reason Comments Pulmonary Encounter Details Date Type Department Care Team Description 07/30/2022 Telephone Specialty Center 3931 Pulmonary Medicine [address] [place], [place] [phone] Shara Mitchell MD [address] [facility] [address] [place], [place] [address] Pulmonary Social History Tobacco Use Types Packs/Day [...] go to if symptoms are acute R GIFTS MANAGER * Shara Mitchell MD - 07/30/2022 3:47 PM CST Yes, it would be reasonable for her to get a sputum sample. Thanks. R GIFTS MANAGER * Rochelle Lynch RN - 07/30/2022 12:03 PM CST Pt would like to do a sputum culture. Please sign sputum order. Pt has take doxy in 04/18 and 06/18and 07/20. Nurses fax to [facility] [phone] R GIFTS MANAGER documented in this encounter Plan of Treatment Not on file documented as of this encounter Visit Diagnoses Diagnosis Bronchiectasis, uncomplicated (HRC)- Primary documented in this encounter
--- OUTSIDE RECORDS SUMMARY | 2023-07-23 14:58 | XMS_ITS | Encounter Summary ---
Author Name Unknown Organization [facility] Address [address] [place] [address] Care Team Providers Care Passenger Representative Name Role Phone Unavailable Primary Care Provider Unavailabl e Reason for Visit * Reason Comments QUESTIONS, GENERAL Encounter Details Date Type Department Care Team Description 08/21/2022 Telephone Specialty Center 3931 Pulmonary Medicine [address] [place], [place] [phone] Shara Mitchell MD [address] [facility] [address] [place], [place] [phone] QUESTIONS, GENERAL Social History Tobacco Use Types [...] a phone call if video doesn't work N RESOURCES SUPERVISOR * Nieves Sylvester RN - 08/21/2022 2:49 PM CST Pt left a voicemail regarding questions with instructions for video appt on Thursday 08/24 @ 0830. Needs to discuss this today if possible. Ok for detailed voicemail. Frontline, can someone reach out to pt to discuss video instructions? Thank you! N RESOURCES SUPERVISOR documented in this encounter Plan of Treatment Not on file documented as of this encounter Visit Diagnoses Not on filedocumented in this encounter
--- OUTSIDE RECORDS SUMMARY | 2023-07-23 14:58 | XMS_ITS | Encounter Summary ---
Author Name Unknown Organization [facility] Address [address] [place] [address] Care Team Providers Care Admitting Officer Name Role Phone Unavailable Primary Care Provider Unavailabl e Reason for Visit * Reason Comments Forms Encounter Details Date Type Department Care Team Description 08/24/2022 Telephone Specialty Center 3931 Pulmonary Medicine [address] [place], [place] [phone] Shara Mitchell MD [address] [facility] [address] [place], [place] [phone] Forms Social History Tobacco Use Types Packs/Day [...] Lynch, PEEWEE - 09/16/2022 2:26 PM CDT [facility] will send cd with cxr s * Nieves Sylvester RN - 08/24/2022 1:48 PM CST CLAU mailed to pt with business reply letter per request from Dr. Mitchell. Pt seen virtually today and states CXR was done through [facility] within the last month which is not accessible through [facility]. FLOOR SUPERVISOR documented in this encounter Plan of Treatment Not on file documented as of this encounter Visit Diagnoses Not on filedocumented in this encounter
--- OUTSIDE RECORDS SUMMARY | 2023-07-23 14:58 | XMS_ITS | Encounter Summary ---
Author Name Unknown Organization [facility] Address [address] [place] [address] Care Team Providers Care Health It Specialist Name Role Phone Unavailable Primary Care Provider Unavailabl e Reason for Visit * Procedure/Equipment (Routine) - Incomplete Specialty Diagnoses / Procedures Referred By Contac t Referred To Contact Procedures Foreign Image(S) XR Chest Provider, [facility] [address] [place] [address] Referral ID Status Reason Start Date Expiration Date V isits Requested Visits Authorized [id number] Incomplete 09/23/2022 12/23/2023 1 1 Encounter Details Date Type Department Care Team Description 08/03/2022 8:55 AM MATERIAL ATTENDANT Ancillary Procedure [facility] PACS [address] [place] [address] Provider, [facility] [address] [place] [address] Social History Tobacco Use Types Packs/Day Years [...] IMAGE(S) XR CHEST Routine 08/03/2022 8:55 AM MATERIAL ATTENDANT documented in this encounter Results * Foreign Image(S) XR Chest (08/03/2022 8:55 AM MATERIAL ATTENDANT) Narrative POCT - 09/23/2022 8:55 AM CDT These outside images have been uploaded into PACS. If the results were provided, they will be located in the patient's chart under the Media or Imaging tab. Foreign Images Provider RAD NON-REPORTAB LES POCT documented in this encounter Visit Diagnoses Not on filedocumented in this encounter
== END 2023-07-23 14:54 | disposition home or self-care (01) ==
LOC: WOUND 14:53
PROVIDERS: PCP Family Medicine; Visit Provider Nurse Practitioner Family
DX: L89.894 Pressure ulcer of other site, stage 4 (principal); L98.8 Other specified disorders of the skin and subcutaneous tissue; I50.20 Unspecified systolic (congestive) heart failure
CPT/HCPCS: G0463

== ENCOUNTER 2023-07-30 10:44 | Outpatient (CLI) | payer MEDICARE, OTHER, SELFPAY | END 2023-07-30 10:45 | disposition home or self-care (01) | LOC: WOUND 10:45 | PROVIDERS: PCP Family Medicine; Visit Provider Nurse Practitioner Family | DX: L89.894 Pressure ulcer of other site, stage 4 (principal) | CPT/HCPCS: 97597 ==

== ENCOUNTER 2023-08-24 13:50 | Outpatient (CLI) | payer MEDICARE, OTHER, SELFPAY | END 2023-08-24 13:51 | disposition home or self-care (01) | PROVIDERS: PCP Family Medicine; Visit Provider Family Medicine | DX: E78.5 Hyperlipidemia, unspecified (principal); I10 Essential (primary) hypertension; M06.9 Rheumatoid arthritis, unspecified | CPT/HCPCS: 80048; 80061; 80076 ==

== ENCOUNTER 2023-08-27 13:22 | Outpatient (CLI) | payer MEDICARE, OTHER, SELFPAY | END 2023-08-27 13:23 | disposition home or self-care (01) | LOC: WOUND 13:22 | PROVIDERS: PCP Family Medicine; Visit Provider Nurse Practitioner Family | DX: L89.899 Pressure ulcer of other site, unspecified stage (principal); E46 Unspecified protein-calorie malnutrition; I35.0 Nonrheumatic aortic (valve) stenosis | CPT/HCPCS: G0463 ==

== ENCOUNTER 2023-09-03 08:15 | Outpatient (CLI) | payer MEDICARE, OTHER, SELFPAY | END 2023-09-03 08:16 | disposition home or self-care (01) | LOC: WOUND 08:15 | PROVIDERS: PCP Family Medicine; Visit Provider Nurse Practitioner Family | DX: L89.894 Pressure ulcer of other site, stage 4 (principal); E46 Unspecified protein-calorie malnutrition; I35.0 Nonrheumatic aortic (valve) stenosis | CPT/HCPCS: 11042; 95806 ==

== ENCOUNTER 2023-09-10 12:48 | Outpatient (CLI) | payer MEDICARE, OTHER, SELFPAY | END 2023-09-10 12:49 | disposition home or self-care (01) | LOC: WOUND 12:49 | PROVIDERS: PCP Family Medicine; Visit Provider Nurse Practitioner Family | DX: L89.894 Pressure ulcer of other site, stage 4 (principal); I35.0 Nonrheumatic aortic (valve) stenosis; B35.3 Tinea pedis | CPT/HCPCS: 15271; G0463; Q4101 ==

== ENCOUNTER 2023-09-17 13:20 | Outpatient (CLI) | payer MEDICARE, OTHER, SELFPAY | END 2023-09-17 13:21 | disposition home or self-care (01) | LOC: WOUND 13:21 | PROVIDERS: PCP Family Medicine; Visit Provider Nurse Practitioner Family | DX: L89.894 Pressure ulcer of other site, stage 4 (principal); E46 Unspecified protein-calorie malnutrition; Z68.30 Body mass index [BMI] 30.0-30.9, adult | CPT/HCPCS: 11042; 87070 ==

== ENCOUNTER 2023-09-24 12:50 | Outpatient (CLI) | payer MEDICARE, OTHER, SELFPAY | END 2023-09-24 12:51 | disposition home or self-care (01) | LOC: WOUND 12:50 | PROVIDERS: PCP Family Medicine; Visit Provider Family Medicine | DX: L89.893 Pressure ulcer of other site, stage 3 (principal) | CPT/HCPCS: 11042 ==

== ENCOUNTER 2023-09-24 13:58 | Outpatient (CLI) | payer MEDICARE, OTHER, SELFPAY ==
[2023-09-24 14:10] LABS: Basophils Absolute Auto 0.01 K/uL (0.00-0.30); Basophils Percent Auto 0.1 % (0.0-3.0); Eosinophils Absolute Auto 0.01 K/uL (0.00-0.50); Eosinophils Percent Auto 0.1 % (0.0-7.0); Hematocrit 38.5 % (33.0-51.0); Hemoglobin* 12.2 gm/dL (12.0-16.0); Immature Granulocytes Abs Auto 0.02 K/uL (0.00-0.30); Immature Granulocytes Pct Auto 0.3 %; Lymphocytes Percent Auto 18.1 % (20-44); Mean Corpuscular HGB Conc 32 gm/dL (32-36); Mean Corpuscular Hemoglobin 32 pg (26-34); Mean Corpuscular Volume 101 fL (80-100); Monocytes Percent Auto 4.2 % (0.0-11.0); Neutrophils Percent Auto 77.2 % (42.0-72.0); Platelet Count* 100 K/uL (140-440); RDW Coefficient of Variation % 18.2 % (11.5-15.5); Red Blood Count 3.83 m/uL (4.00-5.20); White Blood Count* 7.13 K/uL (4.50-11.00)
[2023-09-24 14:41] LABS: Slide Review Reflex No
== END 2023-09-24 13:59 | disposition home or self-care (01) ==
LOC: LAB 13:59
PROVIDERS: PCP Family Medicine; Visit Provider Family Medicine
DX: D61.818 Other pancytopenia (principal); L89.893 Pressure ulcer of other site, stage 3
CPT/HCPCS: 11042; 36415; 85025

== ENCOUNTER 2023-10-01 13:24 | Outpatient (CLI) | payer MEDICARE, OTHER, SELFPAY | END 2023-10-01 13:25 | disposition home or self-care (01) | LOC: WOUND 13:24 | PROVIDERS: PCP Family Medicine; Visit Provider Nurse Practitioner Family | DX: L89.894 Pressure ulcer of other site, stage 4 (principal); I35.0 Nonrheumatic aortic (valve) stenosis | CPT/HCPCS: 15271; Q4158 ==

== ENCOUNTER 2023-10-08 13:05 | Outpatient (CLI) | payer MEDICARE, OTHER, SELFPAY ==
--- OUTSIDE RECORDS SUMMARY | 2023-10-08 13:07 | XMS_ITS | Data Portability ---
Author Name Unknown Address [address] [place] [address] Phone [phone] Organization [facility], [facility] Address [address] [place] [address] Assessment No assessment recorded. Plan of Treatment [...] with a nephrect gilmar. Lamont Bravo MD [address] [place] [address], [phone], [facility] 2 16:32:18 Recurrent urinary tract infection Active 022 Managed with daily Bactrim Lamont Bravo MD [address] [place] [address], [phone], [facility] 16:32:42 Problem Notes None recorded. Procedures Surgical History Date Name Laterality Status Provider Name and Address Organization Details Recorded Time 07/11/19 22 NEPHRECTOMY, HAND ASSISTED LAPAROSCOPIC (SURG) completed Mary moss [facility] 07/17/2021 09:46:04 Imaging Results None recorded. Procedure Notes None recorded. Medical Equipment None Reported. Allergies Allergen ID Allergen Name Allergen Category Reaction Reaction Severity Criticality Documentation Date Start Date Code Code System Note Provider Name and Address Organization Details Recorded Time 623246 Non-stero idal anti-infl ammatory agent (product) medicatio n Not available Not available Not available 03/20/2021 00200 005 SNOMED Lamont Bravo MD [address] [place] [address],[address] [place] [address], [phone], [facility] 1 16:22:56 [id number] Levaquin medicatio n Not available Not available Not available 03/20/2021 98906 2 Bree Bravo MD [address] [place] [address],[address], [place], [phone], [facility] 1 16:23:24 [id number] levofloxa giorgio medicatio n other Not available Not available 08/11/20212021 [id number] Bree Bravo MD [address] [place] [address],[address], [place], [phone], [facility] 2 16:06:24 [id number] terbinafi ne hydrochlo ride medicatio n fever headache Not available Not available Not available 08/11/20212019 [id number] 8 Bree Bravo MD [address] [place] [address],[address] [place] [address], [phone], [facility] 2 16:06:24 Medications Name Sig [...] Updated DateTime 03/20/2021 160.02 cm 33.7 kg/m2 63593.55 g Lamont Bravo MD [address] [place] [address],[address], [phone] [place] [address] Urology 03/20/2021 16:22:47 Date Recorded Body height Body mass index (BMI) Body weight Provider Name and Address Organization Details Last Updated DateTime 08/11/2021 160.02 cm 28.3 kg/m2 30652.78 g Lamont Bravo MD [address] [place] [address],[place] [phone] [place] [address] Urology 08/11/2021 16:06:06 Social History Question Answer Notes LastModified by Organizat ion Details LastModified Time Tobacco Smoking Status Never Smoker Lamont Bravo MD [address] [place] [address],[address], [phone] [place] [address] Urology 03/20/2021 16:24:21 What Is Your Level [...] polysaccharide PPV23 04/30/2010 completed Lamont Bravo MD [address] [place] [address],[address] [place] [address], [phone], [facility] 08/11/2021 16:07:09 Pneumococcal conjugate PCV 13 01/31/2015 completed Lamont Bravo MD [address] [place] [address],[address], [phone], [facility] 08/11/2021 16:07:09 pneumococcal polysaccharide PPV23 03/28/2015 completed Lamont Bravo MD [address] [place] [address],[address], [phone], [facility] 08/11/2021 16:07:09 Pneumococcal conjugate PCV 13 03/28/2016 completed Lamont Bravo MD [address] [place] [address],[address], [phone], [facility] 08/11/2021 16:07:10 pneumococcal polysaccharide PPV23 03/09/2016 completed Lamont Bravo MD [address] [place] [address],[address], [phone], [facility] 08/11/2021 16:07:10 Past Encounters Encounter ID Performer Location Encounter Start Date Encounter Closed Date Diagnosis/Indication Diagnosis SNOMED-CT Code [id number] MD TAMIKA Hudson_Edinjuju [address] [place] [address] 03/20/2021 16:12:05 03/24/2021 11:06:39 Kidney stone [id number] MD Sondra Hudson [address] 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 Health Concerns Section Related Observation LastModified by Organization Detai ls LastModified Time None Recorded Concern Status LastModified by Organization Details LastModified Time None Recorded Advance Directives Directive None Recorded Payers Encounter Date Sequence Insurance Name Policy Number Policy Oshea Covered Member ID Oshea Member ID Guarantor Name 08/11/2021 1 [place] [employer] Tanner James [id number] Tanner James 08/11/2021 2 [facility] (MEDICARE SUPPLEMENT) Tanner James [id number] Tanner James 03/20/2021 1 [place] [employer] Tanner James [id number] Tanner James 03/20/2021 2 [facility] (MEDICARE SUPPLEMENT) Tanner James [id number] Tanner James Notes Date Note Type Note Provider Name and Address Organization Details Recorded Time 03/20/2021 text/html HPI Notes: New patient here to discuss nephrectomy. 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 She's had recurrent pyelonephritis as well. She had ESWL in 2002. She also has a poor aortic valve. Lamont Bravo MD [address] [place] [address],[address] [place] [address], [phone], [facility] 03/20/2021 17:02:40 08/11/2021 text/html HPI Notes: She h as recovered well from surgery. 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 Lamont Bravo MD [address] [place] [address],[address], [place], [address], [facility] 08/11/2021 16:37:50 OBGyn Episode No OBEpisode recorded.
--- OUTSIDE RECORDS SUMMARY | 2023-10-08 13:08 | XMS_ITS | Clinical Summary ---
Author Name Unknown Organization [facility] Address [place], [place] [address] Care Team Providers Care Tower Crane Operator Name Role Phone Swapnil Henley MD Unavailable Hernanlona Marlys N RD Unavailable Funmi Medina Unavailable [phone] Kyle Healy MD Primary Care Provider Allergies Active Allergy Reactions Criticality Noted Date Comments Terbinafine Hcl Fever,Headache 04/29/2020 Headaches, fever Levofloxacin Other - Describe In Comment Field 07/09/2021 Severe tendon issues Nsaids (Non-Steroidal Anti-Inflammatory Drug) GI Bleeding 01/22/2017 Medications Medication Sig Dispensed Refills Start Date End Date Status Cholecalciferol, Vitamin D3, (VITAMIN D-3) 2,000 unit tabletIndications:Vit penaloza D deficiency Take 1 tablet by mouth once daily. 0 01/31/2015 Active multivit-min/iron/fol ic acid/K (ADULTS MULTIVITAMIN ORAL) Take 1 Tab by mouth once daily. 11/04/2015 Active Lactobacillus acidophilus (PROBIOTIC) 10 billion cell cap Take 1 Capsule by mouth once daily. Active folic acid 1 mg tablet Take 3 tablets by mouth once daily. 0 04/29/2020 Active rosuvastatin (CRESTOR) 5 mg tabletIndications:Dys lipidemia Take 1 tablet by mouth at bedtime. 90 tablet 3 05/07/2020 Active sodium chloride (OCEAN) 0.65 % nasal solutionIndications:N tanner dryness Inhale 2 Sprays into affected nostril(s) every 30 minutes if needed for Nasal Congestion or Nasal Dryness. 45 mL 04/22/2021 Active furosemide (Lasix) 20 mg tablet Take 40 mg by mouth every morning. Active predniSONE (DELTASONE) 5 mg tablet Take 10 mg by mouth once daily with a meal. Active PARoxetine (PAXIL) 20 mg tablet Take 20 mg by mouth at bedtime. Active valGANciclovir (Valcyte) 450 mg tablet Take 450 mg by mouth once daily with a meal. Active acetaminophen (TYLENOL) 325 mg tabletIndications:Fib romyalgia Take 2 Tablets (650 mg) by mouth every 4 hours if needed for Pain (For mild pain.). Max acetaminophen dose: 4000mg in 24 hrs. 0 05/07/2023 Active albuterol (PROVENTIL) 0.083 % neb solution Inhale 3 mL (2.5 mg) via a nebulizer two times daily. May give an additional 2.5 mg via neb twice daily if needed. OK to mix albuterol neb solution and 3% sodium chloride solution together during BID administrations. 0 05/11/2023 Active sodium chloride 3% nebulization 3 % nebulizer solutionIndications:B ronchiectasis with acute lower respiratory infection (HC) Inhale 4 ml (one vial) via nebulization route, twice daily. OK to mix albuterol neb solution and 3% sodium chloride solution together during BID administrations. 0 05/11/2023 Active artificial tears, peg 400-propylene glycol, (Systane) 0.4-0.3 % ophthalmic dropperette Place 2 Drops into both eyes two times daily. 0 05/11/2023 Active sennosides (SENNA) 8.6 mg tablet Take 1 Tablet (8.6 mg) by mouth two times daily. Hold for loose stools. 0 05/17/2023 Active ascorbic acid, vitamin C, (Vitamin C) 1,000 mg tablet Take 0.5 Tablets (500 mg) by mouth once daily. 06/11/2023 Active ferrous sulfate, 65 mg elemental, (Iron) tablet Take 325 mg by mouth once daily with a meal. Active guaiFENesin (Mucinex) 600 mg Extended-Release tablet Take 2 Tablets (1,200 mg) by mouth 2 times daily if needed for Expectoration. 06/11/2023 Active metoprolol succinate (TOPROL XL) 25 mg Sustained-Release tablet Take 1 Tablet (25 mg) by mouth two times daily. 06/11/2023 Active apixaban (ELIQUIS) 2.5 mg tabletIndications:pul monary thromboembolism Take 1 Tablet (2.5 mg) by mouth two times daily. 06/30/2023 Active nystatin powder (MYCOSTATIN) powderIndications:Jen st infection of the skin Apply topically to affected area(s) two times daily. 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 20 Tablet 06/30/2023 Active polyethylene glycol (MIRALAX; GLYCOLAX) 17 g per packet packetIndications:Con stipation, unspecified constipation type Take 17 g by mouth or nasogastric tube once daily if needed for Constipation. 06/30/2023 Active Active Problems Problem Noted Date Diagnosed Date [...] 11/13/2009 Overview: Followed by Dr Swapnil Henley: Park NIcollet On MTX and prednisone. June 2012 tried [...] 12/10/2016 10/10/2018 Rheumatoid arthritis involving multiple sites 12/11/19 17 05/05/2023 Diastolic heart failure 05/25/2016 11/0 01/2023 Alcoholism 05/14/2016 05/05/2023 Ocular migraine 11/15/2015 05/05/2023 Morbid obesity with BMI of 40.0-44.9, adult 11/15/2015 01/17/2019 Psoriatic arthritis 01/16/2015 05/05/20 Fatty infiltration of liver 11/21/2013 05/05/2023 Overview: ULTRASOUND 10/2013; Abnormal liver function tests; history of Ethanol abuse; Diastolic dysfunction, left ventricle 11/10/2013 05/05/2023 Overview: Echocardiogram 09/2013 [place]; Ejection fraction 65% H/O alcohol abuse 11/10/2013 05/05/2023 Overview: Quit alcohol use 2007 Vitamin D deficiency 08/23/2013 023 Family history of breast can cer in first degree relative 05/14/2013 05/05/2023 Overview: Mother, daughter: Stress to patient need for annual mammogram; 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 Patient discontinued 05/2012. 12/20/2012 start venlafaxine 37.5mg Osteopenia 12/07/2011 05/05/2023 Overview: Pediatric Licensed Practical Nurse wants patient to be on alendronate indefinitely [...] 04/21/2010 Overview: [facility]; ENDOSCOPY REVEALED SHALLOW GASTRIC ULCERATIONS WITH [...] Encounters Date Type Department Care Team Description 07/27/2023 4:20 PM CASING BUILDER Office Visit [facility] [address] [place] [address] Marcos, Vsrg 07/27/2023 1:00 PM CASING BUILDER Office Visit [facility] [address] [phone] Rehan Alarcon NP CV Valve Est (VALVE EST: 30 DAY F/U S/P TAVR, LABS, CT MORPH, & TTE PRIOR, NEEDS EKG, KCCQ12, 5M WALK, LETTER SENT, JLS//PCP: Kyle Healy MD/) 07/27/2023 11:30 AM CASING BUILDER - 07/27/2023 11:59 PM CASING BUILDER Hospital Encounter [facility] [address] [place], [place] [phone] Rehan Alarcon NP Severe aortic stenosis 07/27/2023 11:20 AM CASING BUILDER Orders Only [facility] [address] [phone] Lab (/) 07/27/2023 Travel 07/15/[address] Jarquin [address] [place] [id number] Tyree Armijo MD Results (Echo ) 07/14/2023 2:37 PM CASING BUILDER - 07/14/2023 11:59 PM CASING BUILDER Hospital Encounter [facility] [address] [place], [place] [phone] Tyree Armijo MD Homol, Arvitt Moderate aortic valve stenosis 07/14/2023 Travel 07/09/2023 3:30 PM CASING BUILDER Office Visit [facility] [address], [place] [phone] Aki Angela MD CV Vascular Est (Wound check and Drain removal; s/p PSA repair) 07/09/2023 Travel from Last 3 Months Immunizations Name Administration [...] Sign Reading Time Taken Comments Blood Pressure 159/76 07/27/2023 1:14 PM CASING BUILDER Pulse 52 07/27/2023 1:14 PM CASING BUILDER Temperature 36.4 ??C (97.6 ??F) 07/01/2023 8:06 AM CS T Respiratory Rate 16 07/09/2023 3:27 PM CASING BUILDER Oxygen Saturation 97% 07/27/2023 1:14 PM CASING BUILDER Inhaled Oxygen Concentration - - Weight 80.3 kg (177 lb) 07/27/2023 1:14 PM CASING BUILDER Height 160 cm (5' 3) 07/27/2023 1:14 PM CASING BUILDER Body Mass Index 31.35 07/27/2023 1:14 PM CASING BUILDER Plan of Treatment Health Maintenance Due Date Last Done Comments Hepatitis C screening for age 18-79 1963 Depression screening for age 12+ 01/18/2020 01/17/2019, 01/12/2018, 03/09/2016, Additional history exists Medicare Wellness for age 65+ 01/18/2020 01/17/2019, 01/12/2018, 12/20/2012 Tetanus booster 05/28/2022 05/28/2012, 03/15/2003 COVID-19 vaccine series ( season) 2023 03/24/2022, 05/02/2021, 09/10/2020, Additional history exists Influenza for age 65+ 02/27/2024 04/25/2019 , 04/19/2018, 03/09/2016, Additional history exists BMI (ht and wt on same day) for age 18+ 07/27/2024 07/27/2023, 06/11/2023, 07/02/2022, Additional history exists Zoster (shingles) series for age 50+ (1 of 2) 06/27/2025 Postponed from 1997 (Other) Tdap Completed 05/28/2012 Pneumococcal series for age 65+ Completed 03/28/2016, 03/09/2016, 03/28/2015, Additional history exists DEXA/DXA scan for age 65+ Completed 2017, 02/27/2015, 11/26/2011 Medical Devices Implanted Type Area Bladder Trimmer Device Identifier Shelf Expiration Date Model / Serial / Lot Screw Tsrh Og Thin 6.5x50mm - [id number] Implanted:Qty: 3 on 04/28/2010 at [facility] N/A: Spine SOFAMOR DANEK [id number]# / / Screw Locking 4x20mm Fine Tip Titnm - [id number] Implanted:Qty: 4 on 04/28/2010 at [facility] [employer] [id number] # / / Screw Thin Crest 6.5x45mm - [id number] Implanted:Qty: 1 on 04/28/2010 at [facility] SOFAMOR DANEK [id number]# / / Set Screw 3dx - [id number] Implanted:Qty: 4 on 04/28/2010 at [id number] / / Cnnctr Tsrh 3dx Sm - [id number] Implanted:Qty: 4 on 04/28/2010 at [facility] Medtronic [id number]# / / Rios 3.5cmx5.5mm Pre-Cut - [id number] Implanted:Qty: 2 on 04/28/2010 at [facility] [id number]# / / Kit Infuse Md - [id number] Implanted:Qty: 1 on 04/28/2010 at [facility] 10/26/2012 [id number]# / / [id number] Filler Bio [id number] - [id number] Implanted:Qty: 1 on 04/28/2010 at [facility] [id number]# / / [id number] Synfix Lr 26mm Implanted:Qty: 1 on 04/28/2010 at [facility] Spine [employer] [id number] S / / [id number] Description:SYNFIX LR 26MM Procedures Procedure Name Priority Date/Time Associated Diagnosis Comments EKG 12 LEAD Routine 07/27/2023 1:13 PM CASING BUILDER S/P TAVR (transcatheter aortic valve replacement) CT CARDIAC MORPHOLOGY W DUAL READ Routine 07/27/2023 12:56 PM CASING BUILDER Severe aortic stenosis PLATELET ESTIMATE Routine 07/27/2023 11: 41 AM CASING BUILDER Severe aortic stenosis CBC W PLT NO DIFF Routine 07/27/2023 11: 41 AM CASING BUILDER Severe aortic stenosis BASIC METABOLIC PANEL Routine 07/27/2023 11:41 AM CASING BUILDER Severe aortic stenosis ECHO TTE COMPLETE WO CONTRAST Routine 07/15/2023 3:26 PM CASING BUILDER Moderate aortic valve stenosis XR DXA BONE DENSITY 2 SITES AXIAL Routine 02/02/2018 3:00 PM CDT Disorder of bone Osteopenia, unspecified location from Last 3 Months or Most Recently Relevant to Health Maintenance Results * CT CARDIAC MORPHOLOGY W DUAL READ (07/27/2023 12:56 PM CASING BUILDER) Anatomical Region Laterality Modality HEART Computed Tomogra phy Impressions 07/28/2023 6:54 AM CASING BUILDER ?? 2+ HALT of the noncoronary cusp of the Evolut FX valve. Restricted noncoronary cusp motion with normal motion of the other two leaflets. Aligned commissures of the Evolut valve - this should not restrict potential future coronary cannulation. Normal left ventricular systolic function. FINDINGS: The Evolut valve is well positioned. There is 2+ HALT on the noncoronary cusp. Restricted noncoronary cusp opening is seen, with the other two leaflets opening normally. The commissures are aligned and coronary cannulation should not be restricted. LEFT VENTRICLE: Normal global systolic function. MD LATRICE Jj/shravan For Patients: As a result of the Century Cures Act, medical imaging exams and procedure reports are released immediately into your electronic medical record. ??You may view this report before your referring provider. ?? If you have questions, please contact your health care provider. OVER-READ ??OVER-READ ??OVER-READ OVER-READ: DETAILED RADIOLOGY EXTRACARDIAC OVER-READ OF CARDIAC CT 07/27/2023 COMPARISON: ??06/27/2023. TECHNIQUE: ??Please see cardiology report for technical information. ??70 cc Omnipaque-350 intravenous contrast. ?? This exam is being performed in conjunction with the services provided by the [facility] ([facility]). CLINICAL HISTORY: ??Cardiac over-read. FINDINGS/IMPRESSION: ??No pathologic adenopathy in the [id number]. No hiatus hernia. No significant finding in the visualized lung parenchyma. Small nodules of indistinct soft tissue at the right paraspinal margin may be lymph nodes versus perhaps nerve sheath tumors. Review of a CT scan of the chest from 2020 reveals no significant interval change. Please see cardiology dictation for discussion of cardiomediastinal findings. Please note that all CT scans at this facility use dose modulation, iterative reconstruction and/or weight-based dosing when appropriate to reduce radiation dose to as low as reasonably achievable. ?? Wero Osborne M.D. Diagnostic/Musculoskeletal Radiologist [email or web address] SDS/sp / Narrative 07/28/2023 6:54 AM CASING BUILDER Results are automatically released to your [facility] account once available, in compliance with federal regulations. ??This means that you may see your results before your provider has had a chance to review them. ??Please allow 2-3 business days for your provider to comment on the results. STUDY: CARDIAC CTA, 07/27/2023 STUDY PARAMETERS: Contrast used: Omnipaque 350, 70 mL; spiral scan; 8.6 mSv radiation dose; Siemens SOMATOM Force [address] INDICATIONS: Followup Evolut FX TAVR, assess for HALT. SCAN QUALITY: ??Good. Rehan Alarcon NP CT * (ABNORMAL) PLATELET ESTIMATE (07/27/2023 11:41 AM CASING BUILDER) [facility] PLATELET ESTIMATE Decreased (A) Adequate, No estimate 07/27/2023 12:44 PM CASING BUILDER [facility] Blood BLOOD SPECIMEN / Unknown Venipuncture / Unknown 07/27/2023 11:41 AM CASING BUILDER 07/27/2023 11:48 AM CASING BUILDER Narrative [facility] - 07/27/2023 12:44 PM CASING BUILDER This procedure was originally ordered at [facility]. Rehan Alarcon NP [facility] [address] [place] [address], * (ABNORMAL) CBC W PLT NO DIFF (07/27/2023 11:41 AM CASING BUILDER) [facility] WHITE BLOOD COUNT 7.7 4.5 - 11.0 thou/cu mm 07/27/2023 12:44 PM CASING BUILDER [facility] RED BLOOD COUNT 4.15 4.00 - 5.20 mil/cu mm 07/27/2023 12:44 PM CASING BUILDER [facility] HEMOGLOBIN 12.7 12.0 - 16.0 g/dL 07/27/2023 12:44 PM [facility] HEMATOCRIT 40.9 33.0 - 51.0 % 07/27/2023 12:44 PM [facility] MCV 99 80 - 100 fL 07/27/2023 12:44 PM [facility] MCH 30.6 26.0 - 34.0 pg 07/27/2023 12:44 PM [facility] MCHC 31.1(L) 32.0 - 36.0 g/dL 07/27/2023 12:44 PM [facility] RDW 15.6(H) 11.5 - 15.5 % 07/27/2023 12:44 PM [facility] PLATELET COUNT 95(L) 140 - 440 thou/cu mm 07/27/2023 12:44 PM [facility] MPV 11.6(H) 6.5 - 11.0 fL 07/27/2023 12:44 PM [facility] NRBC 0.0 % 07/27/2023 12:44 PM [facility] ABS NRBC 0.0 thou /cu mm 07/27/2023 12:[address] [facility] Blood BLOOD SPECIMEN / Unknown Venipuncture / Unknown 07/27/2023 11:41 AM CASING BUILDER 07/27/2023 11:48 AM CASING BUILDER Narrative [facility] - 07/27/2023 12:44 PM CASING BUILDER This procedure was originally ordered at [facility]. Rehan Alarcon NP HEMATOLOGY [facility] [address] [place] [address], * (ABNORMAL) BASIC METABOLIC PANEL (07/27/2023 11:41 AM CASING BUILDER) SODIUM 139 136 - 145 mmol/L 07/27/2023 12:20 PM [facility] POTASSIUM 4.2 3.5 - 5.1 mmol/L 07/27/2023 12:20 PM [facility] CHLORIDE 102 98 - 107 mmol/L 07/27/2023 12:20 PM [facility] CO2,TOTAL 28 22 - 29 mmol/L 07/27/2023 12:20 PM [facility] ANION GAP 9 5 - 18 07/27/2023 12:20 PM [facility] GLUCOSE 110(H) 70 - 99 mg/dL 07/27/2023 12:20 PM [facility] CALCIUM 9.0 8.8 - 10.2 mg/dL 07/27/2023 12:20 PM [facility] BUN 32(H) 8 - 23 mg/dL 07/27/2023 12:20 PM [facility] CREATININE 1.25(H) 0.50 - 0.90 mg/dL 07/27/2023 12:20 PM [facility] BUN/CREAT RATIO 26(H) 10 - 20 12:20 PM [facility] eGFR 45(L) >90 mL/min/1.7 3m2 07/27/2023 12:20 PM [facility] Comment:As of 2021, eG FR is calculated by the CKD-EPI creatinine equation without race adjustment. ??eGFR can be influenced by muscle mass, exercise, and diet. ??The reported eGFR is an estimation only and is only applicable if the renal function is stable. Blood BLOOD SPECIMEN / Unknown Venipuncture / Unknown 07/27/2023 11:41 AM CASING BUILDER 07/27/2023 11:48 AM CASING BUILDER Rehan Alarcon NP [facility]MISTRY [facility] [address] [place] [address], [place] * ECHO TTE COMPLETE WO CONTRAST (07/15/2023 3:26 PM CASING BUILDER) AORTIC VALVE MEAN PG 4 mmHg EJECTION FRACTION 65 % LVEDD 3.8 cm Anatomical Region Laterality Modality Ultrasound 07/14/2023 2:46 PM CASING BUILDER Narrative 07/14/2023 5:16 PM CASING BUILDER ECHOCARDIOGRAM TANNER JAMES ?Accession#: ?? [id number] : ?1945 78 years Study Date: ?? 07/14/2023 2:46:41 PM Gender: F ? BP: ? 131/65 mmHg Height: 160.00 cm ? BSA: ?1.82 m? ? ? Weight: 79.00 kg ?Tech: ? AH ?Referring MD: TYREE ARMIJO Site: ? [facility] Reading Location: [facility]W OP Patient Location: Procedure: [...] . This study was interpreted by an [facility] accredited facility. ??Final ?? Procedure Note Mayito Pardo MD - 07/14/2023 ECHOCARDIOGRAM TANNER JAMES : 1945 78 years Study Date: 07/14/2023 2:46:41 PM Gender: F BP: 131/65 mmHg Height: 160.00 cm BSA: 1.82 m? ? ? Weight: 79.00 kg Tech: Referring MD: TYREE ARMIJO Site: [facility] Reading Location: [facility] OP Patient Location: Procedure: [...] . This study was interpreted by an [facility] accredited facility. Final Tyree Armijo MD ECHO ORD * XR DXA BONE DENSITY 2 SITES AXIAL (02/02/2018 3:00 PM CDT) Anatomical Region Laterality Modality Spine, HIPS, HIPL, HIPR Other 02/02/2018 3:41 PM CDT Narrative 02/02/2018 3:44 PM CDT EXAM: XR DXA BONE DENSITY 2 SITES AXIAL INDICATION: Disorder of bone. ??Osteopenia. ??Postmenopausal. TECHNIQUE: Standardized bone density measurements were obtained using the [employer] bone densitometry system. COMPARISON: None. FINDINGS: SPINE: ??BMD = 1.463 gm/cm2 for the L1-L3 levels. T-score = 2.3 Z-score = 3.4 The bone mineral density within the spine may be suboptimally evaluated due to degenerative changes. HIP: ??BMD = 0.781 gm/cm2 for the left neck region T-score = -1.9 Z-score = -0.5 IMPRESSION: 1. ??Normal BMD of the spine. ??However, bone mineral density the quantification of the lumbar spine may be limited by degenerative changes. 2. ??Osteopenia of the hip. FRAX Score: 10 year risk of major osteoporotic fracture is 10.8%. ??Risk of hip fracture is 2.0%. Procedure Note Wero Kirkpatrick MD - 02/02/2018 EXAM: XR DXA BONE DENSITY 2 SITES AXIAL INDICATION: Disorder of bone. Osteopenia. Postmenopausal. TECHNIQUE: Standardized bone density measurements were obtained using the [employer] bone densitometry system. COMPARISON: None. FINDINGS: SPINE: BMD = 1.463 gm/cm2 for the L1-L3 levels. T-score = 2.3 Z-score = 3.4 The bone mineral density within the spine may be suboptimally evaluateddue to degenerative changes. HIP: BMD = 0.781 gm/cm2 for the left neck region T-score = -1.9 Z-score = -0.5 IMPRESSION: 1. Normal BMD of the spine. However, bone mineral density thequantification of the lumbar spine may be limited by degenerative changes. 2. Osteopenia of the hip. FRAX Score: 10 year risk of major osteoporotic fracture is 10.8%. Risk ofhip fracture is 2.0%. Francis Ferro MD DEXA from Last 3 Months or Most Recently Relevant to Health Maintenance Advance Directives Documents on File Type Date Recorded Patient Venue Attendant Expl anation POLST 04/29/2021 POLST 02/02/2017 1:11 PM 06/29 12/17 Healthcare Directive 04/28/2010 010 * DNR (Latest Code Status on File) Date Activated Date Inactivated Comments 06/21/2023 6:49 PM 07/01/2023 1:56 PM Question Answer Comments Code Status Discussion: Reviewed Preferences * DNR Date Activated Date Inactivated Comments 06/17/2023 3:26 PM 06/18/2023 7:16 PM Question Answer Comments Code Status Discussion: Reviewed Preferences * Full Code Date Activated Date Inactivated Comments 06/16/2023 9:43 AM 06/17/2023 3:26 PM Question Answer Comments Code Status Discussion: Reviewed Preferences * DNR Date Activated Date Inactivated Comments 05/05/2023 6:18 AM 05/08/2023 2:13 PM Question Answer Comments Code Status Discussion: Reviewed Preferences * Full Code Date Activated Date Inactivated Comments 05/04/2023 11:48 PM 05/05/2023 6:18 AM Question Answer Comments Code Status Discussion: Reviewed Preferences Care Teams Tower Crane Operator Relationship Specialty Start Date End Date Kyle Healy MD [address] [place] [address] PCP - General Family Practice 07/14/23 Swapnil Henley MD Rheumatology 12/20/12 Marlys Woodruff, RD [address] [place] [address] Registered Dietitian Mental Health Case Manager 07/05/18 Funmi Medina, STAN[place] [address] [place] [address] Occupational Therapy 05/11/23 Mary Carpio Cardiology - Interventional 01/12/18 DR. Luo Dentistry - General 01/12/18
--- OUTSIDE RECORDS SUMMARY | 2023-10-08 13:08 | XMS_ITS | Encounter Summary ---
Author Name Unknown Organization [facility] Address [address] [place] [address] Care Team Providers Care Brim Curler Name Role Phone Elsewhere, Pcp Primary Care Provider Unavailabl e Reason for Visit * Reason Onset Date Comments Cardiac Rehab 07/06/2023 Encounter Details Date Type Department Care Team (Late st Contact Info) Description 07/06/2023 Clinical Communication Department of Family Medicine in [place], [place] [address] [place] [phone] Louie Malagon M.D. [address] [place] [phone] Cardiac Rehab Social History Tobacco Use Types [...] often do you attend chur ch or confucianism services? Never 08/12/2022 Do you belong to any clubs o r organizations such as episcopalian groups, unions, fraternal or athletic groups, or [...] and heating? Not hard at all 08/12/2022 [facility] - Occupational [...] place to sleep or slept in a half-way (including now)? No 08/12/2022 Nutrition Answer Date [...] Telephone Encounter - Samanta Leigh R.N. - 08/03/2023 1:32 PM BRINE TANK OPERATOR I contacted Es to discuss. She is not interested in cardiac rehab at this time. 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 She has a current flare up of RA as she had been taken off all her medications. I provided contact information if she decidesto proceed with CR. She was appreciative of information. Electronically signed by: Samanta Leigh R.N. 08/03/23 1:35 PM BRINE TANK OPERATOR E TANK OPERATOR * Telephone Encounter - Samanta Leigh R.N. - 07/06/2023 2:14 PM BRINE TANK OPERATOR Cardiac rehab referral received on 07/06/23. 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 Compression treatment was unsuccessful. Pt underwent vascular surgical repair on 06/23/23. I contacted patient to determine if she is currently at a half-way facility or at home. Advised to contact our office at her convenience. Electronically signed by: Samanta Leigh R.N. 07/06/23 2:21 PM BRINE TANK OPERATOR E TANK OPERATOR documented in this encounter Plan of Treatment Not on file documented as of this encounter Visit Diagnoses Not on filedocumented in this encounter Care Teams Brim Curler Relationship Specialty Start Date End Date Elsewhere, Pcp PCP - General 12/24/20 documented as of this encounter
--- OUTSIDE RECORDS SUMMARY | 2023-10-08 13:08 | XMS_ITS | Clinical Summary ---
Author Name Unknown Organization [facility] Address [address] [place] [address] Care Team Providers Care Gas Burner Operator Name Role Phone Elsewhere, Pcp Primary Care Provider Unavailabl e Source Comments Patient records contain information from all sites at [facility]. For routine questions regarding patient records, call [phone] during business hours, M-F 8:00 AM - 5:00 PM Central Time. Record requests for emergency care only can be directed to [phone] at any time.[facility] Allergies Active Allergy Reactions Criticality Noted [...] /3 mL nebulizer solutionIndicati ons:Bronchiectas is ([facility]) USE 1 VIAL VIA NEBULIZER TWICE DAILY. USE PRIOR TO SALINE NEBULIZER SOLUTION FOR BRONCHIAL HYGIENE(MUCUS CLEARANCE) 180 mL 11 01/30/2022 Active sodium chloride (HYPERSAL) 7 % nebulizer solutionIndicati ons:Bronchiectas is ([facility]) USE 1 VIAL VIA NEBULIZER TWICE DAILY. [...] often do you attend chur ch or spiritism services? Never 08/12/2022 Do you belong to any clubs o r organizations such as alevism groups, unions, fraternal or athletic groups, or [...] and heating? Not hard at all 08/12/2022 [facility] - Occupational Stress Questionnaire Answer Date Recorded [...] 36.1 ??C (97 ??F) 08/17/2022 10:57 AM LIFT MANAGER Respiratory Rate 18 01/09/2022 8:24 AM CDT [...] (Annual) 06/28/2023 Creatinine Level (Kidney Function Test) 07/27/2024 07/27/2023, 06/28/2023, 06/27/2023, Additional history exists Potassium Level 07/27/2024 07/27/2023, 06/2023, 06/27/2023, Additional history exists Sodium Level 07/27/2024 07/27/2023, 06/2023, 06/23/2023, Additional history exists DTaP,Tdap,and Td Vaccines (4 [...] Advance Directives For more information, please contact: [phone] * DNR/DNI (Latest Code Status on File) Date Activated Date Inactivated Comments 12/28/2021 12:42 PM 01/09/2022 1:10 PM * DNR/DNI Date Activated Date Inactivated Comments 12/23/2020 8:47 PM 12/25/2020 5:38 PM * Full Code Date Activated Date Inactivated Comments 12/23/2020 8:20 PM 12/23/2020 8:47 PM Question Answer Comments Full Code: Discussed Care Teams Gas Burner Operator Relationship Specialty Start Date End Date Elsewhere, Pcp PCP - General 12/24/20
--- OUTSIDE RECORDS SUMMARY | 2023-10-08 13:08 | XMS_ITS ---
Author Name Unknown Organization [facility] Address [address] [place] [address] Care Team Providers Care Drug Abuse Technician Name Role Phone Unavailable Unavailable Unavailable Surgery Details Not on file Complications Check Surgery Details section. Procedure Estimated Blood Loss Check Surgery Details section. Procedure Findings Check Surgery Details section. Procedure Specimens Taken Check Surgery Details section.
--- OUTSIDE RECORDS SUMMARY | 2023-10-08 13:08 | XMS_ITS | Encounter Summary ---
Author Name Unknown Organization [facility] Address [address] [address] Care Team Providers Care Poker Prop Player Name Role Phone Basilio Healy MD Primary Care Provider [phone] Reason for Referral * (Routine) - New Request Specialty Diagnoses / Procedures Referred By Contac t Referred To Contact Diagnoses Rheumatoid arthritis involving multiple joints (HRC) Primary osteoarthritis of both knees Procedures Triamcinolone Acet Inj Nos: (per 10 mg) Man Sánchez MD [address] [place] [address] Referral ID Status Reason Start Date Expiration Date V isits Requested Visits Authorized [id number] New Request 08/09/2023 11/07/2024 1 1 AL WORKER DELINQUENCY PREVENTION Reason for Visit * Reason Comments Follow-up Encounter Details Date Type Department Care Team (Late st Contact Info) Description 08/09/2023 12:00 PM SOCIAL WORKER DELINQUENCY PREVENTION Office Visit [facility] [address] [place] [address] Man Sánchez MD [address] [place] [address] Rheumatoid arthritis involving multiple joints (HRC) (Primary Dx); High risk medication use; Primary osteoarthritis of both knees; Current chronic use of systemic steroids; Age related osteoporosis, unspecified pathological fracture presence (HRC) Social History Tobacco Use Types Packs/Day [...] * Patient Instructions* Man Sánchez MD - 08/09/2023 12:00 PM SOCIAL WORKER DELINQUENCY PREVENTION Longstanding history of seronegative rheumatoid arthritis and generalized osteoarthritis. Patient has been off methotrexate the last 3-4 months secondary to health issues. Has been complaining of increased joint pain both hands, wrists, shoulders, knees, ankles. Patient has been taking prednisone 10 mg daily. There is presence of active synovitis in the hands bilaterally. Presence of tenderness in the rightshoulder with passive range of motion. Mild synovial thickening and tenderness in the knees and ankles bilaterally. The decision was made to resume methotrexate 7 tablets once week. Continue folic acid 3 mg daily. Continue prednisone 10 mg daily. After 2-3 weeks recommend slow taper of prednisone by 2.5 mg every2 weeks as tolerated. Recommend blood work every 2-3 months while on methotrexate. Not a good candidate for systemic NSAIDs secondary to decreased kidney function and being on blood thinners. Continue pain management as per PCP. Patient received steroid injection in the right shoulder and right knee. History of osteoporosis and chronic systemic steroid use. Previously patient could not tolerate oral Fosamax therapy secondary to side effects predominantly musculoskeletal symptoms. Last year she was approved for the Reclast infusion but never received the infusion. Recommend starting treatment with Reclast infusions once a year. Will repeat DEXA scan in 2 years to monitor bone mineral density. Recommend taking calcium vitamin-D supplement daily. Return to clinic in 4 months follow-up or sooner if needed. AL WORKER DELINQUENCY PREVENTION documented in this encounter Progress Notes * Man Sánchez MD - 08/09/2023 12:00 PM CST Rheumatology Follow up Note Chief Complaint Patient presents with Follow-up HPI: Tanner James is a 78 y.o. female with medical history as stated below aortic stenosis s/p TAVR on 06/16/23, hypertension, hyperlipidemia, paroxysmal atrial fibrillation, (s/p DCCV), h/o PE on Eliquis, bronchiectasis, and CKD h/o left nephrectomy (2021) and seronegative inflammatory arthritis/rheumatoid arthritis is coming today for follow-up accompanied by her son. Patient has failed to follow-up in the last eight months secondary to having health issues. In April she was treated for urosepsis. In May she is status post valve replacement. Methotrexate has been on hold for the last 3-4 months. Patient has been complaining of increased joint pain. Was given higher dose of systemic prednisone while inpatient then slowly has been taper down. Currently on 10 mg daily maintenance. Complains of bilateral hand pain, swelling and stiffness predominantly in the MCP joints. Complainsof right shoulder pain with limitation range of motion. Complains of bilateral knee pain. Complains of chronic low back pain shooting down the right lower extremity. Patient is on hydrocodone as per PCP. Patient Active Problem List Diagnosis Psoriatic arthropathy [...] went through rehab 2007 Gastritis 03/2009 Hypertension ([facility]) 04/13/2009 Kidney stone LBP (low back pain) Morbid obesity with BMI of 40.0-44.9, adult ([facility]) 11/15/2015 Pneumonia 12/10/2016 with PE Pulmonary embolism ([facility]) 12/14/2016 Rheumatoid arthritis(714.0) ([facility]) 12/25/2008 Shoulder impingement 04/03/2013 Past Surgical History: Procedure Laterality Date COLONOSCOPY W/ POLYPECTOMY ([facility]) 10/26/2018 2 specimens (5 polyp). 3 year follow up ESOPHAGOGASTRODUODENOSCOPY ([facility]) 04/14/09 eswl LUMBAR FUSION ([facility]) 04/2010 lami and fusion; Dr Corea Outpatient Encounter Medications as of 08/09/2023 Medication Sig Dispense Refill albuterol 2.5 mg/3 mL, 0.083%, (PROVENTIL) nebulizer solution 1 Vial (2.5 mg) by Nebulization routeevery 6 hours as needed for Wheezing. 180 mL 11 Apixaban (ELIQUIS OR) 2.5 mg two times a day. Ascorbic Acid (VITAMIN C OR) ascorbic acid (VITAMINC) 250 MG tablet Take 1 Tablet (250 mg) by mouth daily. (Patient not taking: Reported on 08/09/2023) Cholecalciferol 2000 UNITS Take 2,000 Int'l Units by mouth daily. ferrous gluconate (FERGON) 324 (38 Fe) MG tablet Take 1 Tablet (324 mg) by mouth daily. fluticasone-salmeterol (ADVAIR HFA) 115-21 mcg/actuation inhaler Inhale 2 Puffs two times a day. With spacer. Rinse mouth/gargle after use. (Patient not taking: Reported on 08/09/2023) 1 Each 11 folic acid 1 MG tablet Take 3 Tablets (3 mg) by mouth daily. 270 Tablet 3 furosemide (LASIX) 40 MG tablet Take 1 Tablet (40 mg) by mouth daily. guaiFENesin (MUCINEX) 600 MG 12 hour release tablet Take 2 Tablets (1,200 mg) by mouth two times a day. (Patient not taking: Reported on 08/09/2023) 120 Tablet 11 HYDROcodone-acetaminophen (NORCO) 5-325 MG [...] tablet by mouth daily (every 24 hours). PARoxetine (PAXIL) 20 MG tablet Take 1 Tablet (20 mg) by mouth daily. PREDNISOLONE ACETATE OP Place 2 Drops into eye(s). (Patient not taking: Reported on 08/09/2023) predniSONE (DELTASONE) 5 MG tablet Take 1.5 [...] Tablet (450 mg) by mouth daily. [DISCONTINUED] folic acid 1 MG tablet Take 3 Tablets (3 mg) by mouth daily. (Patient not taking: Reported on 08/09/2023) 270 Tablet 3 [DISCONTINUED] methotrexate 2.5 MG tablet Take 7 Tablets (17.5 mg) by mouth once every week. (Patient not taking: Reported on 08/09/2023) 91 Tablet 1 No facility-administered encounter medications on file as of 08/09/2023. Allergies Allergen Reactions Nsaids Other, see comments HUT Reaction: GI Bleeding; HUT Severity: High; [facility] Noted: [id number] Levaquin [Levofloxacin] Other, see comments Muscles snapped Terbinafine Muscle Aches/Weakness Social History Substance and Sexual Activity Alcohol Use No Alcohol/week: 0.0 standard drinks of alcohol Comment: Went through treatment for alcoholism in [...] no murmur. Musculoskeletal Exam: Normal muscle bulk. Presence of mild synovial thickening and tenderness in the 2nd through 5th MCPs on the right, 3rd MCP on the left. Right shoulder pain with passive range of motion and mild limitation. Tenderness and questionable synovial thickening in the knees bilaterally. Presence of swelling and tenderness in the ankles bilaterally. No joint effusion. Full range of motion in all 4 extremities. Normal muscle strength in all 4 extremities. Skin: no rash Neurologic Exam: Nonfocal, normal gross motor movement, tone, and coordination. No tremor. Lab: Lab Results Component Value Date WBC 11.0 (H) 01/07/2023 RBC 3.02 (L) 01/07/2023 Hemoglobin 10.2 (L) 01/07/2023 HCT 33.2 (L) 01/07/2023 MCV 109.9 (H) 01/07/2023 RDW 17.1 (H) 01/07/2023 Platelets 155 01/07/2023 Lab Results Component Value Date AST (SGOT) 40 01/07/2023 Lab Results Component Value Date Creatinine 1.00 01/07/2023 Procedure note: Right knee intra-articular steroid injection. After discussing the risks and benefits and taking verbal consent, area was cleaned with chlorhexidine/alcohol swab, ethyl chloride spray was used to numb the area. Patient received 40 mg of Kenalog mixed with 2 cc of lidocaine 1% in the right knee, lateral approach using 25-gauge 1-1/5 needle. Patient tolerated the procedure well, no complications. Band-Aid was applied. Procedure note: Right shoulder steroid injection After discussing the risks and benefits and taking verbal consent, area was cleaned with chlorhexidine/alcohol swab, ethyl chloride spray was used to numb the area. Patient received 40 mg Kenalog mixed with 2 cc of lidocaine 1% in the right shoulder, posterior approach using 25-gauge 1-1/5 needle. Patient tolerated the procedure well, no complications. Band-Aid was applied. Assessment and Plan: Longstanding history of seronegative inflammatory arthritis/ rheumatoid arthritis and generalized osteoarthritis. Patient has been off methotrexate the last 3-4 months secondary to health issues. Recent urosepsis and a wound infection in the abdominal wall. Has been complaining of increased joint pain both hands, wrists, shoulders, knees, ankles. Patient has been taking prednisone 10 mg daily. There is presence of active synovitis as described above. The decision was made to resume methotrexate 7 tablets once a week. Continue folic acid 3 mg daily. Continue prednisone 10 mg daily. After 2-3 weeks recommend slow taper of prednisone by 2.5 mg every2 weeks as tolerated. Recommend blood work every 2-3 months while on methotrexate. Not a good candidate for systemic NSAIDs secondary to decreased kidney function and being on blood thinners. Continue pain management as per PCP. Patient received steroid injection in the right shoulder and right knee. History of osteoporosis and chronic systemic steroid use. Previously patient could not tolerate oral Fosamax therapy secondary to side effects predominantly musculoskeletal symptoms. Last year she was approved for the Reclast infusion but never received the infusion. Recommend starting treatment with Reclast infusions once a year. Will repeat DEXA scan in 2 years to monitor bone mineral density. Recommend taking calcium vitamin-D supplement daily. Return to clinic in 4 months follow-up or sooner if needed. Man Sánchez. Rheumatology Sheila Whatley 08/09/2023 This note consists of symbols derived from keyboarding, and voice recognition software. As a result, wrong word or '[id number]' substitutions may have occurred due to the inherent limitations of voice recognition software. There may be errors in the script that have gone undetected. Please consider this when interpreting information found in this chart. AL WORKER DELINQUENCY PREVENTION documented in this encounter Plan of Treatment Upcoming Encounters Date Type Department Care Team (Late st Contact Info) Description 10/13/2023 2:00 PM CDT Hospital Encounter [facility] [address] [place] [address] 10/26/2023 12:40 PM CDT [place] [facility] [address] [place] [address] Shara Mitchell MD [address] [facility] [address] [place] [address] 10/28/2023 12:30 PM CDT [facility]ointment [facility] [address] [facility] [place] [address] 10/28/2023 1:45 PM CDT Office Visit [facility] [address] [place] [address] Shara Mitchell MD [address] [facility] [address] [place], [place] [address] 12/13/2023 1:00 PM CDT Appointment [facility] [address] [place] [address] Man Sánchez MD [address] [place], [place] [phone] documented as of this encounter Visit Diagnoses Diagnosis Rheumatoid arthritis involving multiple joints (HRC)- Primary High risk medication use Encounter for long-term (current) use of other medications Primary osteoarthritis of both knees Primary localized osteoarthrosis, lower leg Current chronic use of systemic steroids Age related osteoporosis, unspecified pathological fracture presence (HRC) documented in this encounter Care Teams Poker Prop Player Relationship Specialty Start Date End Date Basilio Healy MD [facility] [address] [place] [address] PCP - General Family Practice 10/28/22 documented as of this encounter
--- OUTSIDE RECORDS SUMMARY | 2023-10-08 13:08 | XMS_ITS | Encounter Summary ---
Author Name Unknown Organization [facility] Address [address] [place] [address] Care Team Providers Care Utility Worker Name Role Phone Basilio Healy MD Primary Care Provider [phone] Encounter Details Date Type Department Care Team (Latest Contact Info) Description 09/02/2023 Orders Only HIM DEPARTMENT Provider, [place] [address] Social History Tobacco Use Types Packs/Day Years [...] as of this encounter Plan of Treatment Upcoming Encounters Date Type Department Care Team ( st Contact Info) Description 10/13/2023 2:00 PM CDT Hospital Encounter [facility] [address] [place] [address] 10/26/2023 12:40 PM CDT [place] [address] [place] [address] Shara Mitchell MD [address] [facility] [address] [place] [address] 10/28/2023 12:30 PM CDT Appointment [facility] [facility] [address] [place] [address] 10/28/2023 1:45 PM CDT Office Visit [facility] Pul[facility] Medicine [address] [place] [address] Shara Mitchell MD [address] [facility] [address] [place], [place] [address] 12/13/2023 1:00 PM CDT Appointment [facility] [address] [place], [place] [phone] Man Sánchez MD [address] [place], [place] [id number] documented as of this encounter Procedures Procedure Name Priority Date/Time Associated Diagnosis Comments LABORATORY REPORT 09/02/2023 documented in this encounter Results * LABORATORY REPORT (09/02/2023) Interface Provider MD DUMMY/OTHER/AR documented in this encounter Visit Diagnoses Not on filedocumented in this encounter Care Teams Utility Worker Relationship Specialty Start Date End Date Basilio Healy MD [facility] [address] [place] [address] PCP - General Family Practice 10/28/22 documented as of this encounter
--- OUTSIDE RECORDS SUMMARY | 2023-10-08 13:08 | XMS_ITS | Encounter Summary ---
Author Name Unknown Organization [facility] Address [address] [place] [address] Care Team Providers Care Food Processor Name Role Phone Basilio Healy MD Primary Care Provider [phone] Encounter Details Date Type Department Care Team (Late st Contact Info) Description 08/20/2023 Telephone [facility] Pul[facility] Medicine [address] [place], [place] [phone] Shara Mitchell MD [address] [facility] [address] [place], [place] [phone] Social History Tobacco Use Types Packs/Day Years [...] as of this encounter Nursing Notes * Mati Sampson RN - 08/20/2023 4:05 PM CST Yes, a CT will still be needed prior to 10/27 follow-up. Called patient and relayed this information.She was transferred to radiology to make a CT appointment before her follow-up RESCENT LIGHTING MODEL MAKER * Yessenia Olivarez - 08/20/2023 4:00 PM CST Pt is scheduled for f/u with Stephen 10/27. She had heart issues and surgery in May 2023 and her pulmonary issues have mostly subsided- she doesn't cough or use her cpap anymore. She wanted to check in with Dr Mitchell anyway to make sure she is doing well. There was a chest CT order but she has had several Cts recently at [facility]- does she need this imaging with us before her appt? RESCENT LIGHTING MODEL MAKER documented in this encounter Plan of Treatment Upcoming Encounters Date Type Department Care Team (Late st Contact Info) Description 10/13/2023 2:00 PM CDT Hospital Encounter [facility] [address] [place] [address] 10/26/2023 12:40 PM CDT [place] [facility] [address] [place] [address] [place] [address] [place] [address] 10/28/2023 12:30 PM CDT Appointment [facility] [address] [place] [address] 10/28/2023 1:45 PM CDT Office Visit [facility] [address] [facility] Medicine [address] [place] [address] Shara Mitchell MD [address] [place] [address] 12/13/2023 1:00 PM CDT Appointment [facility] [address] [place] [address] Man Sánchez MD [address] [place] [address] documented as of this encounter Visit Diagnoses Not on filedocumented in this encounter Care Teams Food Processor Relationship Specialty Start Date End Date Basilio Healy MD [facility] [address] [place] [address] PCP - General Family Practice 10/28/22 documented as of this encounter
--- OUTSIDE RECORDS SUMMARY | 2023-10-08 13:08 | XMS_ITS | Clinical Summary ---
Author Name Unknown Organization [facility] Address [address] [place] [address] Care Team Providers Care Paint Prepper Name Role Phone Basilio Healy MD Primary Care Provider [phone] Source Comments You are receiving this document as you are listed as the primary care provider,follow-up provider, or the patient has been referred to you for consultation.This is in compliance with the Medicare and[facility] EHR Incentive Program,which states Providers who transition their patient to another setting of careor provider of care or refers their patient to another provider of care shouldprovide summary care record for each transition of care or referral. [employer] [facility] Allergies Active Allergy Reactions Criticality Noted Date Comments Levofloxacin Other, see comments 02/02/2022 Muscles snapped Nsaids Other, see comments High 03/18/2011 HUT Reaction: GI Bleeding; HUT Severity: High; HUT Noted: [id number] Terbinafine Muscle Aches/Weakness 02/02/2022 Medications Medication Sig Dispensed Refills Start Date End Date Status Cholecalciferol 2000 UNITS Take 2,000 Int'l Units by mouth daily. 10/29/2014 Active Multiple Vitamins-Minerals (MULTIVITAMIN ADULT OR) Take 1 tablet by mouth daily (every 24 hours). 11/04/2015 Active Probiotic Product (SUPER PROBIOTIC OR) daily. Active HYDROcodone-acetami nophen (NORCO) 5-325 MG tabletIndications:P soriatic arthropathy (HRC) TAKE 1 TABLET BY MOUTH EVERY 6 HOURS NEEDED. FOR PAIN 90 Tablet 01/17/2020 Active Ascorbic Acid (VITAMIN C OR) Active rosuvastatin (CRESTOR) 5 MG tablet Take 1 Tablet (5 mg) by mouth daily. Active valGANciclovir (VALCYTE) 450 MG tablet Take 1 Tablet (450 mg) by mouth daily. Active Apixaban (ELIQUIS OR) 2.5 mg two times a day. Active albuterol 2.5 mg/3 mL, 0.083%, (PROVENTIL) nebulizer solutionIndications :Bronchiectasis, uncomplicated (HRC) 1 Vial (2.5 mg) by Nebulization route every 6 hours as needed for Wheezing. 180 mL 11 04/23/2022 Active ferrous gluconate (FERGON) 324 (38 Fe) MG tablet Take 1 Tablet (324 mg) by mouth daily. Active ascorbic acid (VITAMINC) 250 MG tablet Take 1 Tablet (250 mg) by mouth daily. Active sodium chloride 3 % nebulizer solutionIndications :Bronchiectasis, uncomplicated (HRC) Inhale 4 mL two times a day. 240 mL 11 10/22/2022 Active fluticasone-salmete rol (ADVAIR HFA) 115-21 mcg/actuation inhaler Inhale 2 Puffs two times a day. With spacer. Rinse mouth/gargle after use. 1 Each 11 11/04/2022 Active Additional Information Patient not taking.Reported on 08/09/2023 guaiFENesin (MUCINEX) 600 MG 12 hour release tablet Take 2 Tablets (1,200 mg) by mouth two times a day. 120 Tablet 11 12/17/2022 Active Additional Information Patient not taking.Reported on 08/09/2023 metoprolol succinate (TOPROL XL) 25 MG 24 hour release tablet Take 1 Tablet (25 mg) by mouth daily. 12/26/2022 Active predniSONE (DELTASONE) 5 MG tabletIndications:R heumatoid arthritis involving multiple joints (HRC),High risk medication use Take 1.5 Tablets (7.5 mg) by mouth daily. 135 Tablet 1 01/07/2023 Active furosemide (LASIX) 40 MG tablet Take 1 Tablet (40 mg) by mouth daily. 05/02/2023 Active PARoxetine (PAXIL) 20 MG tablet Take 1 Tablet (20 mg) by mouth daily. Active PREDNISOLONE ACETATE OP Place 2 Drops into eye(s). Active methotrexate 2.5 MG tabletIndications:R heumatoid arthritis involving multiple joints (HRC),High risk medication use Take 7 Tablets (17.5 mg) by mouth once every week. 91 Tablet 1 08/09/2023 Active folic acid 1 MG tabletIndications:R heumatoid arthritis involving multiple joints (HRC),High risk medication use Take 3 Tablets (3 mg) by mouth daily. 270 Tablet 3 08/09/2023 Active Active Problems Patient Care Coordination No te Formatting of this note migh t be different from the original. Rheumatology- Patient receives drug assistance for Enbrel from [employer]. 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 Patient discontinued 05/2012. 12/20/2012 start venlafaxine 37.5mg Osteopenia 12/07/2011 Overview: [employer] wants patient to be on alendronate indefinitely [...] 04/21/2010 Overview: HGB 9.6 ON ADMIT TO [facility] 03/2009; ENDOSCOPY REVEALED SHALLOW GASTRIC ULCERATIONS [...] Encounters Date Type Department Care Team Description 09/02/2023 Orders Only HIM DEPARTMENT Provider, MD Wendy 08/20/2023 Telephone [facility] Pulmonary Medicine [address] [place] [address] Shara Mitchell MD 08/09/2023 12:00 PM BEHAVIORAL GENETICIST Office Visit [facility] [address] [place], [place] [phone] Man Sánchez MD Rheumatoid arthritis involving multiple joints (HRC) (Primary Dx); High risk medication use; Primary osteoarthritis of both knees; Current chronic use of systemic steroids; Age related osteoporosis, unspecified pathological fracture presence (HRC) 07/13/2023 Orders Only [facility] [address] [place] [address]. [place] [address] Swapnil Henley MD from Last 3 Months Immunizations Name Administration Dates Next Due Flu Vac (3+ yrs) 04/03/2013, 2,04/30/2010, 009,04/10/2003 Flu Vac Preserv Free (3+yrs) 04/30/2010,04/15/20 09 HepA Adult (19+ yrs) 10/20/2004,03/07/2004 HepA Ped/Adol (1-18 yrs) 10/20/2004 HepA, Pediatric (DO NOT USE; for [facility] only) 10/20/2004 IPV (Polio) 03/07/2004 Influenza (Fluad) 04/19/2018 Influenza IIV3 (Trivalent) F kelly Highdose, 65+ Yrs (24666) 04/25/2019,03/09/2016,03/30/2014 Influenza IIV4 (Quadrivalent ) 0.5mL (00392) 04/23/2021,04/25/2019,04/19/2018, 016,03/30/2014,04/03/2013,04/15/2012,08/2009,04/15/2009,04/10/2003 Influenza IIV4 (Quadrivalent ) Fluzone, [...] Comments Blood Pressure 135/72 07/18/2019 3:38 PM BEHAVIORAL GENETICIST Pulse 104 10/22/2022 1:45 PM CDT Temperature 36.7 ??C (98 ??F) 04/07/2016 8:25 AM CDT Respiratory Rate 18 02/12/2014 11:42 AM CDT Oxygen Saturation 98% 10/22/2022 1:45 PM CDT Inhaled Oxygen Concentration - - Weight 72.6 kg (160 lb) 10/22/2022 1:45 PM CDT Height 160 cm (5' 3) 10/22/2022 1:45 PM CDT Body Mass Index 28.34 10/22/2022 1:45 PM CDT Plan of Treatment Upcoming Encounters Date Type Department Care Team (Late st Contact Info) Description 10/13/2023 2:00 PM CDT Hospital Encounter [facility] [address] [place] [address] 10/26/2023 12:40 PM CD[place] [facility] [address] [place] [address] [place] [address] [place] [address] 10/28/2023 12:30 PM CDT [facility]ointment [facility] [address] Pulmonary Lab [address] [place] [address] 10/28/2023 1:45 PM CDT Office Visit [facility] [address] Pulmonary [address] [place] [address] Shara Mitchell MD [address] [place] [address] 12/13/2023 1:00 PM CDT Appointment [facility] [address] [place] [address] Man Sánchez MD [address] [place] [address] Health Maintenance Due Date Last Done Comments Medicare Annual Wellness Visit 1945 COVID-19 Vaccine ( - 2022-24 season) 2023 03/24/2022, 05/02/2021, 09/10/2020, Additional history exists Colonoscopy 10/27/2023 10/26/2018 (Comp [...] Completed 03/28/2016, 03/09/2016, 03/28/2015, Additional history exists Influenza Completed 04/15/2023, 12/2021, 04/23/2021, Additional history exists HepB Aged Out No longer eligi ble based on patient's age to complete this topic Hib Aged Out No longer eligi ble based on patient's age to complete this topic MCV4 Aged Out No longer eligi ble based on patient's age to complete this topic Procedures Procedure Name Priority Date/Time Associated Diagnosis Comments LABORATORY REPORT 09/02/2023 EXT RSLT - CREATININE Routine 08/24/2023 2:15 PM BEHAVIORAL GENETICIST EXT RSLT - AST Routine 08/24/2023 2:15 PM BEHAVIORAL GENETICIST EXT RSLT - ALT Routine 08/24/2023 2:15 PM BEHAVIORAL GENETICIST EXT RSLT - WHITE BLOOD CELL COUNT (WBC) Routine 08/24/2023 2:15 PM BEHAVIORAL GENETICIST EXT RSLT - HEMOGLOBIN Routine 08/24/2023 2:15 PM BEHAVIORAL GENETICIST EXT RSLT - PLATELET COUNT Routine 08/24/2023 2:15 PM BEHAVIORAL GENETICIST PAOLA (DIABETIC EYE EXAM) 07/13/2023 DXA BONE DENSITY SPINE/HIP INC VERT FX ASSESS Routine 10/07/2022 3:48 PM CDT Rheumatoid arthritis involving multiple joints (HRC) High risk medication use Current chronic use of systemic steroids Screening for osteoporosis HEPATITIS C PCR QUANTITATIVE Routine 12/12/2015 11:44 AM CDT Encounter for long-term (current) use of medications from Last 3 Months or Most Recently Relevant to Health Maintenance Results * LABORATORY REPORT (09/02/2023) Interface Provider MD CLANCY/OTHER/AR * Creatinine (Ext Rslt) (08/24/2023 2:15 PM BEHAVIORAL GENETICIST) EXT RSLT - CREATININE 1.0 0.5 - 1.0 mg/dL PN EXTERNAL LAB-SEE SCANNED DOCUMENT 08/24/2023 2:15 PM BEHAVIORAL GENETICIST Man Sánchez MD LAB EXTERNAL RESULT Performing Organization Address City/[facility] Co de Phone Number PN EXTERNAL LAB-SEE SCANNED DOCUMENT Do Not Mail * White Blood Cell Count (WBC) (Ext Rslt) (08/24/2023 2:15 PM BEHAVIORAL GENETICIST) EXT RSLT - WBC 9.16 4.50 - 11.0 K/uL PN EXTERNAL LAB-SEE SCANNED DOCUMENT 08/24/2023 2:15 PM BEHAVIORAL GENETICIST Man Sánchez MD LAB EXTERNAL RESULT Performing Organization Address City/[facility]/ZIP Co de Phone Number PN EXTERNAL LAB-SEE SCANNED DOCUMENT Do Not Mail * Hemoglobin (Ext Rslt) (08/24/2023 2:15 PM BEHAVIORAL GENETICIST) EXT RSLT - HGB 12.8 12.0 - 16.0 gm/dL PN EXTERNAL LAB-SEE SCANNED DOCUMENT 08/24/2023 2:15 PM BEHAVIORAL GENETICIST Man Sánchez MD LAB EXTERNAL RESULT Performing Organization Address [facility] de Phone Number PN EXTERNAL LAB-SEE SCANNED DOCUMENT Do Not Mail * (ABNORMAL) Platelet Count (Ext Rslt) (08/24/2023 2:15 PM BEHAVIORAL GENETICIST) Pathologist [facility] EXT RSLT - PLATELET COUNT 96(L) 140 - 440 K/uL PN EXTERNAL LAB-SEE SCANNED DOCUMENT 08/24/2023 2:15 PM BEHAVIORAL GENETICIST Man Sánchez MD LAB EXTERNAL RESULT Performing Organization Address [facility] de Phone Number PN EXTERNAL LAB-SEE SCANNED DOCUMENT Do Not Mail * (ABNORMAL) AST (Ext Rslt) (08/24/2023 2:15 PM BEHAVIORAL GENETICIST) Pathologist [facility] EST RSLT - AST 39(H) 12 - 35 U/L PN EXTERNAL LAB-SEE SCANNED DOCUMENT 08/24/2023 2:15 PM BEHAVIORAL GENETICIST Man Sánchez MD LAB EXTERNAL RESULT Performing Organization Address [facility] de Phone Number PN EXTERNAL LAB-SEE SCANNED DOCUMENT Do Not Mail * ALT (Ext Rslt) (08/24/2023 2:15 PM BEHAVIORAL GENETICIST) [facility] EXT RSLT - ALT 31 4 - 35 U/L PN E XTERNAL LAB-SEE SCANNED DOCUMENT 08/24/2023 2:15 PM BEHAVIORAL GENETICIST Man Sánchez MD LAB EXTERNAL RESULT Performing Organization Address [facility] Co de Phone Number PN EXTERNAL LAB-SEE SCANNED DOCUMENT Do Not Mail * PAOLA (DIABETIC EYE EXAM) (07/13/2023) Swapnil Henley MD DUMMY/OTHER/AR * DXA Bone Density Spine/Hip Inc Vert [...] not included. Patient Name: Tanner James Densitometer: [email or web address] W Appt Dept/Resource: [facility] GRANDA BONE Demographics Age: 77 [...] (Femoral neck) N/A N/A N/A N/A Forearm (1/3) (Not Scanned) N/A N/A N/A N/A ??*N/A [...] trabecular bone, and is derived from the [id number] changes of bone density embedded in the [...] scores. ?? Man Sánchez MD RAD DEXA * Hepatitis C PCR Quantitative (12/12/2015 11:44 AM CDT) HCV Quant Interp Not Detected Not Detected HP CONVERSION Comment: Test Performed by Real Time PCR CLIA Number [id number] HCV Quant iu/ml <12 IU/ml HP CONVERSION Comment:CLIA Number [id number] HCV Quant Log iu/ml <1.08 Log IU/ml HP CONVERSION Comment: Performed at [facility], [address] [place] [address] ??[id number] CLIA Number [id number] 12/12/2015 11:4 4 AM CDT 12/12/2015 3:01 PM CDT Swapnil Henley MD LAB_1 HP CONVERSION from Last 3 Months or Most Recently Relevant to Health Maintenance Advance Directives Documents on File Type Date Recorded Patient Window 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
--- OUTSIDE RECORDS SUMMARY | 2023-10-08 13:08 | XMS_ITS | Referral Summary ---
Author Name Unknown Organization [facility] Address [address] [place] [address] Care Team Providers Care Cutting Table Operator Name Role Phone Elsewhere, Pcp Primary Care Provider Unavailabl e Source Comments Patient records contain information from all sites at [facility]. For routine questions regarding patient records, call [phone] during business hours, M-F 8:00 AM - 5:00 PM Central Time. Record requests for emergency care only can be directed to [phone] at any time.[facility] Allergies Active Allergy Reactions Criticality Noted Date [...] mg /3 mL nebulizer solutionIndicati ons:Bronchiectas is ([facility]) USE 1 VIAL VIA NEBULIZER TWICE DAILY. USE PRIOR TO SALINE NEBULIZER SOLUTION FOR BRONCHIAL HYGIENE(MUCUS CLEARANCE) 180 mL 11 01/30/2022 Active sodium chloride (HYPERSAL) 7 % nebulizer solutionIndicati ons:Bronchiectas is ([facility]) USE 1 VIAL VIA NEBULIZER TWICE DAILY. [...] often do you attend chur ch or mosque services? Never 08/12/2022 Do you belong to any clubs o r organizations such as anabaptism groups, unions, fraternal or athletic groups, or [...] and heating? Not hard at all 08/12/2022 [facility] - Occupational Stress Questionnaire Answer Date [...] place to sleep or slept in a longterm (including now)? No 08/12/2022 Nutrition Answer Date [...] 36.1 ??C (97 ??F) 08/17/2022 10:57 AM DAM WORKER Respiratory Rate 18 01/09/2022 8:24 AM CDT Oxygen Saturation 98% 01/09/2022 8:24 AM CDT Inhaled Oxygen Concentration - - Weight 74.1 kg (163 lb 5.8 oz) 01/06/2022 11:26 AM CDT Height 160 cm (5' 2.99) 01/06/2022 11:26 AM CDT Body Mass Index 28.95 01/06/2022 11:26 AM CDT Plan of Treatment Not on file Advance Directives For more information, please contact: [phone] * DNR/DNI (Latest Code Status on File) Date Activated Date Inactivated Comments 12/28/2021 12:42 PM 01/09/2022 1:10 PM * DNR/DNI Date Activated Date Inactivated Comments 12/23/2020 8:47 PM 12/25/2020 5:38 PM * Full Code Date Activated Date Inactivated Comments 12/23/2020 8:20 PM 12/23/2020 8:47 PM Question Answer Comments Full Code: Discussed Care Teams Cutting Table Operator Relationship Specialty Start Date End Date Elsewhere, Pcp PCP - General 12/24/20
--- OUTSIDE RECORDS SUMMARY | 2023-10-08 13:08 | XMS_ITS | Encounter Summary ---
Author Name Unknown Organization [facility] Address [address] [place] [address] Care Team Providers Care Welfare Officer Name Role Phone Basilio Healy MD Primary Care Provider [phone] Encounter Details Date Type Department Care Team (Late st Contact Info) Description 07/13/2023 Orders Only [facility] 38[address] Rheumatology [address] [facility] [place], [place] [id number] Swapnil Henley MD [address] [place] [address] Social History Tobacco Use Types Packs/Day Years [...] 10/13/2023 2:00 PM CDT Hospital Encounter [facility] [address] [place], [place] [address] 10/26/2023 12:40 PM [place] [address] [place], [place] [address] Shara Mitchell MD [address] [facility] [address] [place], [place] [address] 10/28/2023 12:30 PM CDT Appointment [facility] 3931 Pulmonary Lab [address] [place] [address] 10/28/2023 1:45 PM CDT Office Visit [facility] 3931 Pulmonary Medicine [address] [place] [address] Shara Mitchell MD [address] [facility] [address] [place], [place] [address] 12/13/2023 1:00 PM CDT Appointment [facility] [address] [place], [place] [phone] Man Sánchez MD [address] [place], [place] [address] documented as of this encounter Procedures Procedure Name Priority Date/Time Associated Diagnosis Comments PAOLA (DIABETIC EYE EXAM) 07/13/2023 documented in this encounter Results * PAOLA (DIABETIC EYE EXAM) (07/13/2023) Swapnil Henley MD DUMMY/OTHER/AR documented in this encounter Visit Diagnoses Not on filedocumented in this encounter Care Teams Welfare Officer Relationship Specialty Start Date End Date Basilio Healy MD [facility] [address] [place] [address] PCP - General Family Practice 10/28/22 documented as of this encounter
--- OUTSIDE RECORDS SUMMARY | 2023-10-08 13:09 | XMS_ITS | Encounter Summary ---
Author Name Unknown Organization [facility] Address [address] [place] [address] Care Team Providers Care Hip Hop Dance Instructor Name Role Phone Basilio Healy MD Primary Care Provider [phone] Reason for Visit * Reason Comments Refill Encounter Details Date Type Department Care Team (Late Contact Info) Description 02/06/2016 Refill [facility] [address] Rheumatology [facility] [place], [place] [address] Swapnil Henley MD [address] [place] [address] Refill Social History Tobacco Use Types Packs/Day Years Used Date Smoking Tobacco: Never Assessed Sex and Gender Information Value Date Recorded Sex Assigned at Not on file Gender Identity Not on file Sexual Orientation Not on file documented as of this encounter Plan of Treatment Upcoming Encounters Date Type Department Care Team (Late Contact Info) Description 10/13/2023 2:00 PM CDT Hospital Encounter [facility] [address] [place] [address] 10/26/2023 12:40 PM CDT [place]oint[place] [facility] [address] [place] [address] Shara Mitchell MD [address] [facility] [address] [place] [address] 10/28/2023 12:30 PM CDT Appointment [facility] 3931 Pulmonary Lab [address] [place] [address] 10/28/2023 1:45 PM CDT Office Visit [facility] 3931 Pulmonary Medicine [address] [place] [address] Shara Mitchell MD [address] [facility] [address] [place] [address] 12/13/2023 1:00 PM CDT Appointment [facility] [address] [place], [place] [phone] Man Sánchez MD [address] [place], [place] [address] documented as of this encounter Visit Diagnoses Not on filedocumented in this encounter Care Teams Hip Hop Dance Instructor Relationship Specialty Start Date End Date Basilio Healy MD [facility] [address] [place] [address] PCP - General Family Practice 10/28/22 documented as of this encounter
== END 2023-10-08 13:06 | disposition home or self-care (01) ==
LOC: WOUND 13:05
PROVIDERS: PCP Family Medicine; Visit Provider Nurse Practitioner Family
DX: L89.893 Pressure ulcer of other site, stage 3 (principal); I35.0 Nonrheumatic aortic (valve) stenosis
CPT/HCPCS: 11042

== ENCOUNTER 2023-10-09 11:58 | Emergency (ER) | payer MEDICARE, OTHER, SELFPAY ==
[2023-10-09 12:21] VITALS: BP 122/58; PULSE 61; RESP 14; TEMP 36.2; O2SAT 100; BMI 29.8
--- NOTE | 2023-10-09 12:26 | ED_ITS ---
HPI - General Adult General Time Seen by Provider: 12:26 Date Seen: 10/09/23 Chief complaint: Back Injury/Pain Stated complaint: Chronic care pain issues Time Seen by Provider: 10/09/23 12:04 Source: patient, RN notes reviewed and old records reviewed Mode of arrival: wheelchair Limitations: no limitations History of Present Illness HPI narrative: This 78-year-old female is coming into the ER of her own accord, accompanied by her daughter. She is coming in for right sciatic up, states it is worsening. She states this is been progressive over the last 2 weeks. Her history is a bit complex. She had a TAVR done in May of 2023 at [facility]. 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 She did see her primary Dr. Healy on the , they had ordered CT imaging of her abdomen pelvis. This is scheduled to happen this coming Wednesday. She has been using Vicodin, states she could not really get comfortable last night. She had to prop herself up off the right side, seemed to help. She has abdominal pannus, had significant prior weight loss. When she was lifting the pannus area off it seemed to help her symptoms. She feels the pain in her right leg, goes down the back of the leg almost to the ankle, maybe into the side of the foot. She does not feel any weakness, no numbness or tingling. There is pain that is increasing with walking down the leg. She has no midline pain in her back, feels more pain in the buttock and gluteal region. No fevers or chills. No acute trauma. She is on chronic prednisone for rheumatoid arthritis. She is also chronically anticoagulated with Eliquis, has a history of underlying atrial fibrillation and has had 2 pulmonary emboli before. She reportedly has had lumbar fusion at some level before. Related Data Home Medications Medication Instructions Recorded Confirmed Lactobacillus acidophilus 0.5 mg 1,000 mmu cells PO DAILY 12/22/21 10/04/23 (100 million cell) tablet folic acid 1 mg tablet 3 mg PO DAILY 12/22/21 10/04/23 ascorbic acid (vitamin C) 500 mg 1 g PO DAILY 01/16/22 10/04/23 tablet cholecalciferol (vitamin D3) 50 50 mcg PO DAILY 01/16/22 10/04/23 mcg (2,000 unit) capsule multivitamin 1 tab PO QAM 01/16/22 10/04/23 methotrexate sodium 2.5 mg tablet 17.5 mg PO 08/24/23 10/04/23 prednisone 10 mg tablet 10 mg PO DAILY 08/24/23 10/04/23 Previous Rx's Medication Instructions Recorded valganciclovir 450 mg tablet See Rx Instructions .Route 02/24/23 .COMPLEX #90 tabs apixaban 5 mg tablet (Eliquis) 2.5 mg (1/2 x 5 mg) PO BID #90 tabs 08/24/23 furosemide 40 mg tablet 40 mg PO DAILY #90 tabs 08/24/23 metoprolol succinate 25 mg 25 mg PO BID #180 tabs 08/24/23 tablet,extended release 24 hr paroxetine HCl 20 mg tablet 20 mg PO DAILY #90 tabs 08/24/23 rosuvastatin 5 mg tablet See Rx Instructions .Route 08/24/23 .COMPLEX #90 tabs ferrous gluconate 324 mg (37.5 mg 324 mg PO DAILY #90 tabs 08/27/23 iron) tablet hydrocodone 5 mg-acetaminophen 325 1 tab PO Q6H PRN pain #56 tabs 09/27/23 mg tablet Allergies Allergy/AdvReac Type Severity Reaction Status Date / Time NSAIDS (Non-Steroidal Allergy Severe GI bleed Verified 10/04/23 11:18 Anti-Inflamma terbinafine Allergy Intermediate Headache Verified 10/04/23 11:18 levofloxacin AdvReac Severe tendon Verified 10/04/23 11:18 rupture Review of Systems Status of ROS: Reports: 6 or more systems reviewed and unremarkable except as noted in History and below [facility] Medical History Paroxysmal atrial fibrillation ?I48.0 - Paroxysmal atrial fibrillation (ICD-10) Pleural effusion ?J90 - Pleural effusion, not elsewhere classified (ICD-10) Chronic wound ?T14.8XXA - Other injury of unspecified body region, initial encounter (ICD- 10) History of kidney stones ?Z87.442 - Personal history of urinary calculi (ICD-10) POLST (Physician Orders for Life-Sustaining Treatment) ?Z78.9 - Other specified health status (ICD-10) Mitral annular calcification ?I05.9 - Rheumatic mitral valve disease, unspecified (ICD-10) Surgical History Status post transcatheter aortic valve replacement (TAVR) using bioprosthesis ?Z95.3 - Presence of xenogenic heart valve (ICD-10) S/P cataract extraction ?Z98.49 - Cataract extraction status, unspecified eye (ICD-10) S/P cholecystectomy ?Z90.49 - Acquired absence of other specified parts of digestive tract (ICD- 10) History of left nephrectomy ?Z90.5 - Acquired absence of kidney (ICD-10) History of lumbar fusion (04/2010) ?Z98.1 - Arthrodesis status (ICD-10) History of lithotripsy ?Z98.890 - Other specified postprocedural states (ICD-10) Family History Mother Breast cancer, Onset Age: 70 Sister Breast cancer, Onset Age: 35 Social History What is your current living situation?: I presently have a place to live Problems where you live: no known problems Problems where you live details: na In the past 12 months, utilities in danger of being shut off: no In past 12 months, lack of transportation kept you from medical appts, meetings, work, or getting things needed for daily living: no Smoking Status: Never smoker Do you use any of these nicotine containing products: None Second hand tobacco smoke exposure: No How often do you have a drink containing alcohol: never How often do you have six or more drinks on one occasion: Never AUDIT-C Alcohol total score: 0 Non-prescribed substance use: denies use Caffeine: No How often does anyone, including family, friends and others, physically hurt you : never How often does anyone, including family, friends and others, insult or talk down to you: never How often does anyone, including family, friends and others, threaten you with harm: never How often does anyone, including family, friends and others, scream or curse at you: never Little interest or pleasure in doing things: more than half the days Feeling down, depressed, or hopeless: more than half the days service: No Exam Const: Vital Signs, click to edit/add: Vital Signs - 24 hr 10/09/23 12:21 10/09/23 12:43 10/09/23 14:33 Temperature 97.2 F L Pulse Rate [Pulse Oximeter] 61 53 L Respiratory Rate 14 18 Blood Pressure [Ri ght Upper Arm] 122/58 L 179/90 H Pulse Oximetry 100 99 99 Oxygen Delivery Me thod Room Air Room Air Patient is brought back in a wheelchair, she is a 78-year-old female that is a lert, interactive, no apparent distress. Able to speak in complete sentences. Pupils are equal round, conjugate gaze, sclera clear. No midline tenderness over her back. She has pain is somewhat on palpation in the right buttock area generally, feel no mass. Negative straight leg raising on the right side. Strength of her right lower extremity is 5/5, no deficits noted. Normal light touch sensation. She is able to stand from the wheelchair in easily pivot into the bed. She does stand up for me to examine. She has significant lower pannus that overlies each thigh. The right side does seem like it is exceptionally bigger than the left. She states the pannus is where it is hurting. I do not feel any palpable masses within the thigh. Lungs are clear, good air entry, no wheezing or crackles. CV regular rate and rhythm, no significant murmur heard, normal S1-S2. Abdomen has a central wound with a bandage over it that [facility] It is in between in upper and the lower folds of her abdominal wall. No surrounding erythema. Documenting provider has reviewed patient's vital signs: yes Course Course ED Course: Will give patient 5 mg oxycodone for pain, did ask her if she needed something for pain and she stated would be nice if she could get something for pain control. She did bring up that she had had dilaudid in the hospital, did get oxycodone in the hospital in tolerated both. Reviewed with her that we would start with oral medicines, can increased pain management if needed. We will get baseline labs on her, note her kidney function was stable to proceed with her CTs when checked on the . She will have abdomen pelvis with IV contrast, lumbar spine reconstruction. We will take her CT down into her upper thigh on the right side. Reevaluation(s) Time of Reevaluation #1: 13:10 Reevaluation #1: Nursing staff came to tell me that the daughter stepped out of the room, told nursing staff that the patient seems to be becoming more reliant on pain medicines in their opinion. She will have pain pills in her pocket at times, take pain meds and not be telling people. Sounds as if her daughter is con cerned about patient's usage of pain medicines. Time of Reevaluation #2: 16:45 Reevaluation #2: Reviewed with patient that the lumbar CT is showing changes that would be consistent with right sciatica. She doesn't have any new bleeding. We discussed increasing her prednisone, taking it with food. She states she has enough at home. She is reassured that we are not finding any new bleeding issues. As far as treatment if this is coming from her lumbar spine, injections may be a possibility but she will have to weigh the need to be off anticoagulants, she will need to follow up with her primary this next week peer will provide her with a physical therapy referral form. Vital Signs Vital signs: Initial Vital Signs Temperature 97.2 F L 10/09/23 12:21 Temperature Source Temporal Artery Scan 10/09/23 12:21 Pulse Rate 61 10/09/23 12:21 Pulse Rhythm Regular 10/09/23 12:21 Respiratory Rate 14 10/09/23 12:21 Blood Pressure 122/58 L 10/09/23 12:21 Blood Pressure Mean 79 10/09/23 12:21 Blood Pressure Position Sitting 10/09/23 12:21 Pulse Oximetry 100 10/09/23 12:21 Oxygen Delivery Method Room Air 10/09/23 12:21 Vital Signs Temperature 97.2 F L 10/09/23 12:21 Pulse Rate 61 10/09/23 12:21 Respiratory Rate 14 10/09/23 12:21 Blood Pressure 122/58 L 10/09/23 12:21 Pulse Oximetry 100 10/09/23 12:21 Oxygen Delivery Method Room Air 10/09/23 12:21 Temperature 97.2 F L 10/09/23 12:21 Pulse Rate 53 L 10/09/23 14:33 Respiratory Rate 18 10/09/23 14:33 Blood Pressure 179/90 H 10/09/23 14:33 Pulse Oximetry 99 10/09/23 14:33 Oxygen Delivery Method Room Air 10/09/23 14:33 Medications Administered Medications: Discontinued Medications Generic Name Dose Route Start Last Admin Trade Name Opal PRN Reason Stop Dose Admin Oxycodone HCl 5 mg 10/09/23 12:54 10/09/23 13:10 Oxycodone 5 Mg Tablet PO 10/09/23 12:55 5 mg ONCE ONE Administration Medical Decision Making Lab Data Lab results reviewed: Yes I reviewed the patient's lab results Labs: Lab Results 10/09/23 Range/Units 13:00 WBC 6.87 (4.50-11.00) K/uL RBC 3.84 L (4.00-5.20) m/uL Hgb 12.5 (12.0-16.0) gm/dL Hct 39.8 (33.0-51.0) % MCV 104 H (80-100) fL MCH 33 (26-34) pg MCHC 31 L (32-36) gm/dL RDW Coeff of Navneet 18.2 H (11.5-15.5) % Plt Count 88 L (140-440) K/uL Neut % (Auto) 79.5 H (42.0-72.0) % Lymph % (Auto) 15.9 L (20-44) % Hutchinson % (Auto) 3.5 (0.0-11.0) % Eos % (Auto) 0.4 (0.0-7.0) % Baso % (Auto) 0.3 (0.0-3.0) % Neut # (Auto) 5.50 (1.7-7.0) K/uL Lymph # (Auto) 1.10 (0.90-2.90) K/uL Hutchinson # (Auto) 0.20 (0.00-0.90) K/UL Eos # (Auto) 0.03 (0.00-0.50) K/uL Baso # (Auto) 0.02 (0.00-0.30) K/uL Abs Immat Gran (auto) 0.03 (0.00-0.30) K/uL Imm/Tot Granulo (auto) 0.4 % Sodium 139 (135-149) mmol/L Potassium 4.6 (3.6-5.1) mmol/L Chloride 109 (96-114) mmol/L Carbon Dioxide 31 (20-32) mmol/L Anion Gap -1 L (7-15) mEq/L BUN 31 H (7-30) mg/dL Creatinine 1.0 (0.5-1.5) mg/dL Estimated Creat Clear 39.59 Estimated GFR 58 ml/min Glucose 111 (60-115) mg/dL Lactate 2.0 H (0.5-1.9) mmol/L Calcium 8.4 (8.4-10.6) mg/dL Total Bilirubin 0.6 (0.1-1.5) mg/dL AST 45 H (12-35) U/L ALT 42 H (4-35) U/L Alkaline Phosphatase 54 (40-150) U/L Total Protein 6.4 (6.0-8.3) g/dL Albumin 3.9 (3.3-5.0) g/dL Imaging Data CT scan - abdomen: Attestation: I have reviewed the pertinent imaging results. Radiologist's impression: Patient: BRYCE STALLINGS Facility:?[facility] Patient ID:?[id number] Site Patient ID:?[id number]. Site :?[id number] Study:?CT Abdomen/Pelvis W/IV-10/09/2023 2:34:06 PM Ordering Physician:MELINDA Final Report: INDICATION: History of femoral hematoma and retroperitoneal bleed, with increasing right- sided sciatica. TECHNIQUE: Multiplanar CT examination of the abdomen and pelvis was performed after the administration of 83 mL Isovue 370 intravenous contrast. COMPARISON: CT abdomen pelvis 06/21/2023. FINDINGS: Lower chest: No focal consolidation. Normal heart size. No pleural effusions or pneumothorax. History of TAVR. Subsegmental atelectasis and dependent atelectasis of the lung bases. Small calcified granuloma within the right lower lobe. Coronary arterial calcifications. Liver: Unremarkable. Gallbladder: Cholecystectomy. Biliary: Within normal limits given patient`s cholecystectomy status. Pancreas: Within normal limits. Spleen: Tiny calcified granulomas. Stable appearance of the innumerable subcentimeter hypodensities within the splenic parenchyma, nonspecific. Adrenal glands: Unremarkable. Renal/ureters/bladder: Status post left nephrectomy. The right kidney appears normal in size and enhancement. No obstructive uropathy or urolithiasis. The bladder appears within normal limits Pelvis: Calcified fibroid uterus. Gastrointestinal: No bowel wall thickening or bowel obstruction. Normal appendix. No significant colonic diverticulosis. Moderate colonic stool burden. Vasculature: No aortic aneurysm. The portal vein remains patent. Severe atherosclerotic calcifications of the abdominal aorta and its branches. Lymph nodes: No pathologic lymphadenopathy by size criteria. Peritoneum/retroperitoneum: No free fluid or pneumoperitoneum. No drainable fluid collections. No retroperitoneal hematoma identified on today`s examination. Abdominal wall/soft tissues: Unremarkable. Bones: No acute osseous abnormalities. Please refer to the separately dictated report on the CT of the lumbar spine performed concurrently for full discussion of its findings. IMPRESSION: 1. No acute abdominopelvic pathology. No retroperitoneal hematoma or hemoperitoneum on today`s examination. 2. Coronary arterial calcifications. Advise correlation with ASCVD evaluation. Please note that all CT scans at this facility use dose modulation, iterative reconstruction, and/or weight-based dosing when appropriate to reduce radiation dose to as low as reasonably achievable. Dictated by Edwin Lewis MD @ 10/09/2023 3:59:54 PM (Electronic Signature) CT lumbar spine: Attestation: I have reviewed the pertinent imaging results. Radiologist's impression: Patient: BRYCE STALLINGS Facility:?[facility] Patient ID:?[id number] Site Patient ID:?[id number]. Site :?1945 Study:?CT Spine Lumbar W/IV-10/09/2023 2:34:37 PM Ordering Physician:MELINDA Final Report: Indication: Right sciatica. Previous right femoral hematoma. Technique: CT of the lumbar spine was performed with intravenous contrast. Contrast: 83 cc Isovue 370. Comparison: None relevant available. Findings: Postsurgical changes of anterior and posterior fusion at L4-5. Lumbar vertebral body heights are maintained without fracture. Diffuse osteopenia. Moderate to severe multilevel disc height loss and degeneration. Prior posterior decompression at the L2, L3 and L4 levels. Moderate dextroconvex curvature. At L1-2, disc bulge results in mgah-ai-lbuhdhid spinal canal narrowing. Ewml-sc-aynvuzmt left and mild right neural foraminal narrowing. At L5-S1, moderate to severe right and mild left neural foraminal narrowing secondary to disc bulge and facet hypertrophy. Impression: 1. No acute osseous injury within the lumbar spine. 2. Postsurgical change of the anterior and posterior fusion at L4-5. 3. Prior posterior decompression at L2, L3 and L4. 4. At L1-2, fuvo-ky-mqtbiryv spinal canal and left neural foraminal narrowing. 5. At L5-S1, moderate to severe right and mild left neural foraminal stenosis. Please note that all CT scans at this facility use dose modulation, iterative reconstruction, and/or weight-based dosing when appropriate to reduce radiation dose to as low as reasonably achievable. Dictated by Shade Priest MD @ 10/09/2023 3:09:54 PM (Electronic Signature) CT- Other: Attestation: I have reviewed the pertinent imaging results. Radiologist's impression: Patient: BRYCE STALLINGS Facility:?[facility] Patient ID:?[id number] Site Patient ID:?[id number]. Site :?1945 Study:?CT Extremity Right FEMUR WITH IV CONTRAST-10/09/2023 2:36:19 PM Ordering Physician:MELINDA Preliminary Report: INDICATION: History of known femoral hematoma. TECHNIQUE: Multiplanar CT examination of the right femur was performed after the administration of 83 mL of Isovue 370 intravenous contrast. COMPARISON: None. FINDINGS: No abnormal fluid collections are identified suggestive of a soft tissue hematoma. No acute fractures or dislocation. There is degenerative joint space narrowing of the right hip joint, with marginal osteophytosis compatible with severe osteoarthritic degeneration. Pubic rami appear intact. No diastasis of the pubic symphysis. Moderate arthrosis of the pubic symphysis. There is diffuse fatty atr ophy of the hamstring musculature, nonspecific. The soft tissues are unremarkable. No radiopaque foreign bodies. Extensive atherosclerotic calcifications of the right common femoral artery and its br anches. No aneurysm. No definite extravasation of contrast on this single phase examination suggestive of arterial injury. IMPRESSION: 1. No soft tissue hematoma of the visualized right lower extremity on this examination. No definite extravasation of contrast suggestive of arterial injury. 2. No acute fractures or dislocation. Otherwise, unremarkable CT examination of the right femur. Dictated by Edwin Lewis MD @ 10/09/2023 4:13:50 PM Read by:?Edwin Lewis MD @ 10/09/2023 16:13:56 Discharge Plan Discharge Clinical Impression: Sciatica associated with disorder of lumbar spine Patient Disposition: Home, Self-Care Condition: Stable Instructions: Lumbar Radiculopathy (ED) Additional Instructions: Need to get physical therapy referral from Dr. Healy if you would like an outside organization. Referral provided for [facility] physical therapy if you would like to use that. Take 20 mg of prednisone tonight with food. Then for the next 4 days take 20 mg twice a day with food. Can use your pain medicines at home as you have. Please follow-up in clinic this next week. Activity Level: Activity as Tolerated Prescriptions: No Action cholecalciferol (vitamin D3) 50 mcg (2,000 unit) capsule 50 mcg PO DAILY multivitamin Tablet 1 tab PO QAM ascorbic acid (vitamin C) 500 mg tablet 1 g PO DAILY methotrexate sodium 2.5 mg tablet 17.5 mg PO prednisone 10 mg tablet 10 mg PO DAILY rosuvastatin 5 mg tablet See Rx Instructions .ROUTE .COMPLEX Qty: 90 3RF Dose Instruction: TAKE 1 TABLET BY MOUTH DAILY Rx Instructions: TAKE 1 TABLET BY MOUTH DAILY metoprolol succinate 25 mg tablet extended release 24 hr 25 mg PO BID Qty: 180 3RF furosemide 40 mg tablet 40 mg PO DAILY Qty: 90 3RF Eliquis 5 mg tablet 2.5 mg PO BID Qty: 90 3RF paroxetine HCl 20 mg tablet 20 mg PO DAILY Qty: 90 3RF folic acid 1 mg tablet 3 mg PO DAILY Lactobacillus acidophilus 0.5 mg (100 million cell) tablet 1,000 mmu cells PO DAILY valganciclovir 450 mg tablet See Rx Instructions .ROUTE .COMPLEX Qty: 90 3RF Dose Instruction: TAKE 1 TABLET BY MOUTH DAILY Rx Instructions: TAKE 1 TABLET BY MOUTH DAILY ferrous gluconate 324 mg (37.5 mg iron) tablet 324 mg PO DAILY Qty: 90 3RF hydrocodone-acetaminophen 5-325 mg tablet 1 tab PO Q6H PRN (Reason: pain) Qty: 56 0RF Follow Up/Referrals: Kyle Healy MD [Primary Care Provider] - Stand Alone [facility] Info Inst[facility]
[2023-10-09 12:43] VITALS: O2SAT 99
--- NOTE | 2023-10-09 12:43 | CT_ITS ---
Patient: BRYCE STALLINGS Facility:?[facility] Patient ID:?[id number] Site Patient ID:?[id number]. Site :?1945 Study:?CT-Spine Lumbar W/IV-10/09/2023 2:34:37 PM Ordering Physician:MELINDA Final Report: Indication: Right sciatica. Previous right femoral hematoma. Technique: CT of the lumbar spine was performed with intravenous contrast. Contrast: 83 cc Isovue 370. Comparison: None relevant available. Findings: Postsurgical changes of anterior and posterior fusion at L4-5. Lumbar vertebral body heights are maintained without fracture. Diffuse osteopenia. Moderate to severe multilevel disc height loss and degeneration. Prior posterior decompression at the L2, L3 and L4 levels. Moderate dextroconvex curvature. At L1-2, disc bulge results in eihj-mp-uwmoryxq spinal canal narrowing. Zvso-um-afiqlwpi left and mild right neural foraminal narrowing. At L5-S1, moderate to severe right and mild left neural foraminal narrowing secondary to disc bulge and facet hypertrophy. Impression: 1. No acute osseous injury within the lumbar spine. 2. Postsurgical change of the anterior and posterior fusion at L4-5. 3. Prior posterior decompression at L2, L3 and L4. 4. At L1-2, plvt-dj-euoavcvz spinal canal and left neural foraminal narrowing. 5. At L5-S1, moderate to severe right and mild left neural foraminal stenosis. Please note that all CT scans at this facility use dose modulation, iterative reconstruction, and/or weight-based dosing when appropriate to reduce radiation dose to as low as reasonably achievable. Dictated by Shade Priest MD @ 10/09/2023 3:09:54 PM Signed by:?Shade Priest MD @10/09/2023 3:09:54 PM (Electronic Signature)
--- NOTE | 2023-10-09 12:43 | CT_ITS ---
Patient: BRYCE STALLINGS Facility:?[facility] Patient ID:?[id number] Site Patient ID:?[id number]. Site :?1945 Study:?CT-Abdomen/Pelvis W/IV-10/09/2023 2:34:06 PM Ordering Physician:MELINDA Final Report: INDICATION: History of femoral hematoma and retroperitoneal bleed, with increasing right- sided sciatica. TECHNIQUE: Multiplanar CT examination of the abdomen and pelvis was performed after the administration of 83 mL Isovue 370 intravenous contrast. COMPARISON: CT abdomen pelvis 06/21/2023. FINDINGS: Lower chest: No focal consolidation. Normal heart size. No pleural effusions or pneumothorax. History of TAVR. Subsegmental atelectasis and dependent atelectasis of the lung bases. Small calcified granuloma within the right lower lobe. Coronary arterial calcifications. Liver: Unremarkable. Gallbladder: Cholecystectomy. Biliary: Within normal limits given patient`s cholecystectomy status. Pancreas: Within normal limits. Spleen: Tiny calcified granulomas. Stable appearance of the innumerable subcentimeter hypodensities within the splenic parenchyma, nonspecific. Adrenal glands: Unremarkable. Renal/ureters/bladder: Status post left nephrectomy. The right kidney appears normal in size and enhancement. No obstructive uropathy or urolithiasis. The bladder appears within normal limits Pelvis: Calcified fibroid uterus. Gastrointestinal: No bowel wall thickening or bowel obstruction. Normal appendix. No significant colonic diverticulosis. Moderate colonic stool burden. Vasculature: No aortic aneurysm. The portal vein remains patent. Severe atherosclerotic calcifications of the abdominal aorta and its branches. Lymph nodes: No pathologic lymphadenopathy by size criteria. Peritoneum/retroperitoneum: No free fluid or pneumoperitoneum. No drainable fluid collections. No retroperitoneal hematoma identified on today`s examination. Abdominal wall/soft tissues: Unremarkable. Bones: No acute osseous abnormalities. Please refer to the separately dictated report on the CT of the lumbar spine performed concurrently for full discussion of its findings. IMPRESSION: 1. No acute abdominopelvic pathology. No retroperitoneal hematoma or hemoperitoneum on today`s examination. 2. Coronary arterial calcifications. Advise correlation with ASCVD evaluation. Please note that all CT scans at this facility use dose modulation, iterative reconstruction, and/or weight-based dosing when appropriate to reduce radiation dose to as low as reasonably achievable. Dictated by Edwin Lewis MD @ 10/09/2023 3:59:54 PM Signed by:?Edwin Lewis MD @10/09/2023 3:59:54 PM (Electronic Signature)
--- NOTE | 2023-10-09 12:43 | CT_ITS ---
Patient: BRYCE STALLINGS Facility:?[facility] Patient ID:?[id number] Site Patient ID:?[id number]. Site :?[id number] Study:?CT-Extremity Right FEMUR WITH IV CONTRAST-10/09/2023 2:36:19 PM Ordering Physician:MELINDA Final Report: INDICATION: Increasing right side sciatica. Hematoma. TECHNIQUE: Intravenous contrast enhanced CT of the right femur/thigh. 83 mL Isovue 370 intravenous contrast administered. COMPARISON: 06/21/2023. FINDINGS: No acute hematoma involving the right thigh. No mass or fluid collection involving the right thigh. There are degenerative changes of the right hip. No acute femoral fracture. Note that the field of view excludes the distal most femur and distal most thigh. No significant abnormality along the course of the included right sciatic nerve or right femoral nerve. There is atrophy of the hamstrings musculature and a portion of the adductor musculature. IMPRESSION: 1. No hematoma involving the right thigh. 2. No abnormality along the included course of the right sciatic or right femoral nerve. 3. Atrophy of hamstring musculature and a portion of the adductor musculature. Please note that all CT scans at this facility use dose modulation, iterative reconstruction, and/or weight-based dosing when appropriate to reduce radiation dose to as low as reasonably achievable. Dictated by Robbi Hernandez MD @ 10/11/2023 7:31:55 AM Signed by:?Robbi Hernandez MD @10/11/2023 7:31:55 AM (Electronic Signature)
[2023-10-09 13:10] LABS: Basophils Absolute Auto 0.02 K/uL (0.00-0.30); Basophils Percent Auto 0.3 % (0.0-3.0); Eosinophils Absolute Auto 0.03 K/uL (0.00-0.50); Eosinophils Percent Auto 0.4 % (0.0-7.0); Hematocrit 39.8 % (33.0-51.0); Hemoglobin* 12.5 gm/dL (12.0-16.0); Immature Granulocytes Abs Auto 0.03 K/uL (0.00-0.30); Immature Granulocytes Pct Auto 0.4 %; Lymphocytes Percent Auto 15.9 % (20-44); Mean Corpuscular HGB Conc 31 gm/dL (32-36); Mean Corpuscular Hemoglobin 33 pg (26-34); Mean Corpuscular Volume 104 fL (80-100); Monocytes Percent Auto 3.5 % (0.0-11.0); Neutrophils Percent Auto 79.5 % (42.0-72.0); Platelet Count* 88 K/uL (140-440); RDW Coefficient of Variation % 18.2 % (11.5-15.5); Red Blood Count 3.84 m/uL (4.00-5.20); White Blood Count* 6.87 K/uL (4.50-11.00)
[2023-10-09] MEDS: OXYCODONE 5 MG TABLET PO (13:10)
--- OUTSIDE RECORDS SUMMARY | 2023-10-09 13:14 | XMS_ITS | Clinical Summary ---
Author Name Unknown Organization [facility] Address [address] [place] [address] Care Team Providers Care Condominium Association Manager Name Role Phone Elsewhere, Pcp Primary Care Provider Unavailabl e Source Comments Patient records contain information from all sites at [facility]. For routine questions regarding patient records, call [phone] during business hours, M-F 8:00 AM - 5:00 PM Central Time. Record requests for emergency care only can be directed to [phone] at any time.[facility] Allergies Active Allergy Reactions Criticality Noted Date Comments Levofloxacin Other (see comments) 07/09/2021 Severe tendon issues Nsaids (Non-Steroidal Anti-Inflammatory Drug) GI bleeding 01/22/2017 Terbinafine Hcl Other (see comments),Headache 04/29/2020 Headaches, fever Medications Medication Sig Dispensed Refills Start Date End Date Status rosuvastatin (CRESTOR) 5 mg tablet Take 5 mg by mouth at bedtime. 05/07/2020 Active HYDROcodone-acet aminophen (NORCO) 5-325 mg per tablet Take 1 tablet by mouth every 6 (six) hours as needed for pain. 12/31/2016 Active folic acid 1 mg tablet Take 3 mg by mouth as directed. Daily EXCEPT Mondays. 04/29/2020 Active cholecalciferol (VITAMIN D3) 50 mcg (2,000 Unit) tablet Take 2,000 Units by mouth daily. 01/31/2015 Active multivitamin-Ca- iron-minerals tablet Take 1 tablet by mouth daily. 11/04/2015 Active prednisoLONE acetate, PF, 1 % drops,suspension Administer 2 drops into the left eye at bedtime. Started in September. Label was not on bottle; unsure number of drops. To left eye at bedtime. Active valGANciclovir (VALCYTE) 450 mg tablet Take 450 mg by mouth daily. Started in September for eye infection; is to remain on indefinitely. Active ferrous gluconate 324 mg (37.5 mg iron) tablet Take 37.5 mg of iron by mouth daily. Active ascorbic acid, vitamin C, (VITAMIN C) 250 mg tablet Take 250 mg by mouth daily. With her iron tablet Active furosemide (LASIX) 40 mg tablet Take 40 mg by mouth daily. Just started 12/27/21; dose was being adjusted. Active potassium chloride (KLORCON/K-TAB) 10 mEq ER tablet Take 40 mEq by mouth daily with breakfast. Do not crush or chew. Active albuterol 2.5 mg /3 mL nebulizer [...] MOUTH TWO TIMES A DAY 30 tablet 01/08/2022 Active atenoloL (TENORMIN) 25 mg tablet Take 25 mg by mouth daily. 11/27/2010 2 Discontinued Active Problems Problem Noted [...] How often do you attend chur or restoration services? Never 08/12/2022 Do you belong to any clubs o r organizations such as druze groups, unions, fraternal or athletic groups, or [...] and heating? Not hard at all 08/12/2022 [facility] Occupational Stress Questionnaire Answer Date [...] place to sleep or slept in a long term (including now)? No 08/12/2022 Nutrition Answer Date [...] 36.1 ??C (97 ??F) 08/17/2022 10:57 AM PANMAN Respiratory Rate 18 01/09/2022 8:24 AM CDT [...] Procedure Name Priority Date/Time Associated Diagnosis Comments EXTI BASIC METABOLIC PANEL, S/P Routine 07/27/2023 11:41 AM PANMAN BI BREAST SCREENING BILATERAL WITH TOMOSYNTHESIS Routine 02/08/2019 1:03 PM CDT from Last 3 Months or Most Recently Relevant to Health Maintenance Advance Directives For more information, please contact: [phone] * DNR/DNI (Latest Code Status on File) Date Activated Date Inactivated Comments 12/28/2021 12:42 PM 01/09/2022 1:10 PM * DNR/DNI Date Activated Date Inactivated Comments 12/23/2020 8:47 PM 12/25/2020 5:38 PM * Full Code Date Activated Date Inactivated Comments 12/23/2020 8:20 PM 12/23/2020 8:47 PM Question Answer Comments Full Code: Discussed Care Teams Condominium Association Manager Relationship Specialty Start Date End Date Elsewhere, Pcp PCP - General 12/24/20
--- OUTSIDE RECORDS SUMMARY | 2023-10-09 13:14 | XMS_ITS | Clinical Summary ---
Author Name Unknown Organization [employer] [facility] Address [place], [place] [address] Care Team Providers Care Greens Tier Name Role Phone Swapnil Henley MD Unavailable Hernanlona Marlys N RD Unavailable Funmi Medina Unavailable [phone] Kyle Healy MD Primary Care Provider Allergies [...] annual mammogram; annual physical exam breast and center administrator Shoulder impingement 04/03/2013 017 Chronic anxiety 12/21/2011 05/05/2023 Overview: Start sertraline 11/26/11; improved although residual; increase dose from 50mg to 100mg 12/21/2011. Patient discontinued 05/2012. 12/20/2012 start venlafaxine 37.5mg Osteopenia 12/07/2011 05/05/2023 Overview: Orthopedic Shoes Salesperson wants patient to be on alendronate indefinitely [...] 04/21/2010 Overview: [facility]; ENDOSCOPY REVEALED SHALLOW GASTRIC [...] Department Care Team Description 07/27/2023 4:20 PM ROOFER GYPSUM [place] [facility] [address] [address] Marcos, Vsrg 07/27/2023 1:00 PM ROOFER GYPSUM [place] [facility] [address] [phone] Rehan Alarcon NP CV Valve Est (VALVE EST: 30 DAY F/U S/P TAVR, LABS, CT MORPH, & TTE PRIOR, NEEDS EKG, KCCQ12, 5M WALK, LETTER SENT, JLS//PCP: Kyle Healy MD/) 07/27/2023 11:30 AM ROOFER GYPSUM - 07/27/2023 11:59 PM ROOFER GYPSUM Hospital Encounter [facility] [address] [place], [place] [phone] Rehan Alarcon NP Severe aortic stenosis 07/27/2023 11:20 AM ROOFER GYPSUM Orders Only [facility] [address] [phone] Lab (/) 07/27/2023 Travel 07/15/[address] Jarquin [address] [place] [phone] Tyree Armijo MD Results (Echo ) 07/14/2023 2:37 PM ROOFER GYPSUM - 07/14/2023 11:59 PM ROOFER GYPSUM Hospital Encounter [facility] [address], [place] [phone] Tyree Armijo MD Homol, [place] Moderate aortic valve stenosis 07/14/2023 Travel from Last 3 Months Immunizations Name [...] Comments Blood Pressure 159/76 07/27/2023 1:14 PM ROOFER GYPSUM Pulse 52 07/27/2023 1:14 PM ROOFER GYPSUM Temperature 36.4 ??C (97.6 ??F) 07/01/2023 8:06 AM CS T Respiratory Rate 16 07/09/2023 3:27 PM ROOFER GYPSUM Oxygen Saturation 97% 07/27/2023 1:14 PM ROOFER GYPSUM Inhaled Oxygen Concentration - - Weight 80.3 kg (177 lb) 07/27/2023 1:14 PM ROOFER GYPSUM Height 160 cm (5' 3) 07/27/2023 1:14 PM ROOFER GYPSUM Body Mass Index 31.35 07/27/2023 1:14 PM ROOFER GYPSUM Plan of Treatment Health Maintenance Due Date [...] 02/27/2015, 11/26/2011 Medical Devices Implanted Type Area Road Test Examiner Device Identifier Shelf Expiration Date Model / Serial / Lot Screw Tsrh Og Thin 6.5x50mm - [id number] Implanted:Qty: 3 on 04/28/2010 at [facility] N/A: Spine SOFAMOR DANEK [id number]# / / Screw Locking 4x20mm Fine Tip Titnm - [id number] Implanted:Qty: 4 on 04/28/2010 at [facility] Refresh.io [id number] # / / Screw Thin Crest 6.5x45mm - [id number] Implanted:Qty: 1 on 04/28/2010 at [facility] [place] [id number]# / / Set Screw 3dx - [id number] Implanted:Qty: 4 on 04/28/2010 at [facility] [place] [id number]# / / Cnnctr Tsrh 3dx Sm - [id number] Implanted:Qty: 4 on 04/28/2010 at [facility] Medtronic [id number]# / / Rios 3.5cmx5.5mm Pre-Cut - [id number] Implanted:Qty: 2 on 04/28/2010 at [facility] [id number] / / Delfino Acuna Md - [id number] Implanted:Qty: 1 on 04/28/2010 at [facility] Spine SOFAMOR DANEK 10/26/2012 [id number]# / / [id number] Filler Bio [id number] - [id number] Implanted:Qty: 1 on 04/28/2010 at [facility] [id number]# / / [id number] Synfix Lr 26mm Implanted:Qty: 1 on 04/28/2010 at [facility] Spine Refresh.io [id number] S / / [id number] Description:SYNFIX LR 26MM Procedures Procedure Name Priority Date/Time Associated Diagnosis Comments EKG 12 LEAD Routine 07/27/2023 1:13 PM ROOFER GYPSUM S/P TAVR (transcatheter aortic valve replacement) CT CARDIAC MORPHOLOGY W DUAL READ Routine 07/27/2023 12:56 PM ROOFER GYPSUM Severe aortic stenosis PLATELET ESTIMATE Routine 07/27/2023 11: 41 AM ROOFER GYPSUM Severe aortic stenosis CBC W PLT NO DIFF Routine 07/27/2023 11: 41 AM ROOFER GYPSUM Severe aortic stenosis BASIC METABOLIC PANEL Routine 07/27/2023 11:41 AM ROOFER GYPSUM Severe aortic stenosis ECHO TTE COMPLETE WO CONTRAST Routine 07/15/2023 3:26 PM ROOFER GYPSUM Moderate aortic valve stenosis XR DXA BONE DENSITY 2 SITES AXIAL Routine 02/02/2018 3:00 PM CDT Disorder of bone Osteopenia, unspecified location from Last 3 Months or Most Recently Relevant to Health Maintenance Results * CT CARDIAC MORPHOLOGY W DUAL READ (07/27/2023 12:56 PM ROOFER GYPSUM) Anatomical Region Laterality Modality HEART Computed Tomogra phy Impressions 07/28/2023 6:54 AM ROOFER GYPSUM ?? 2+ HALT of the noncoronary cusp [...] restricted. LEFT VENTRICLE: Normal global systolic function. Ralph Hernandez MD JRYossi/car For Patients: As a result of the [...] conjunction with the services provided by the [facility] ([facility]). CLINICAL HISTORY: ??Cardiac over-read. FINDINGS/IMPRESSION: ??No pathologic adenopathy in the [id number]. No hiatus hernia. No significant finding in [...] M.D. Diagnostic/Musculoskeletal Radiologist [email or web address] BISI/sp / Narrative 07/28/2023 6:54 AM ROOFER GYPSUM Results are automatically released to your [employer] ([employer]) account once available, in compliance with federal [...] * (ABNORMAL) PLATELET ESTIMATE (07/27/2023 11:41 AM ROOFER GYPSUM) Pathologist [facility] PLATELET ESTIMATE Decreased (A) Adequate, No estimate 07/27/2023 12:44 PM ROOFER GYPSUM [facility] Blood BLOOD SPECIMEN / Unknown Venipuncture / Unknown 07/27/2023 11:41 AM ROOFER GYPSUM 07/27/2023 11:48 AM ROOFER GYPSUM Narrative [facility] - 07/27/2023 12:44 PM ROOFER GYPSUM This procedure was originally ordered at [facility]. Rehan Alarcon NP HEMATOLOGY [facility] [address] [place] [address], * (ABNORMAL) CBC W PLT NO DIFF (07/27/2023 11:41 AM ROOFER GYPSUM) Pathologist [facility] WHITE BLOOD COUNT 7.7 4.5 - 11.0 thou/cu mm 07/27/2023 12:44 PM ROOFER GYPSUM [facility] RED BLOOD COUNT 4.15 4.00 - 5.20 mil/cu mm 07/27/2023 12:44 PM ROOFER GYPSUM [facility] HEMOGLOBIN 12.7 12.0 - 16.0 g/dL 07/27/2023 12:44 PM ROOFER GYPSUM [facility] HEMATOCRIT 40.9 33.0 - 51.0 % 07/27/2023 12:44 PM ROOFER GYPSUM [facility] MCV 99 80 - 100 fL 07/27/2023 12:44 PM [facility] MCH 30.6 26.0 - 34.0 pg 07/27/2023 12:44 PM [facility] MCHC 31.1(L) 32.0 - 36.0 g/dL 07/27/2023 12:44 PM [facility] RDW 15.6(H) 11.5 - 15.5 % 07/27/2023 12:44 PM [facility] PLATELET COUNT 95(L) 140 - 440 thou/cu mm 07/27/2023 12:44 PM [facility] MPV 11.6(H) 6.5 - 11.0 fL 07/27/2023 12:44 PM [facility] NRBC 0.0 % 07/27/2023 12:44 PM [facility] ABS NRBC 0.0 thou /cu mm 07/27/2023 12:44 PM [facility] Blood BLOOD SPECIMEN / Unknown Venipuncture / Unknown 07/27/2023 11:41 AM ROOFER GYPSUM 07/27/2023 11:48 AM ROOFER GYPSUM [facility] - 07/27/2023 12:44 PM ROOFER GYPSUM This procedure was originally ordered at [facility]. Rehan Alarcon PATIENT MONITOR HEMATOLOGY [facility] [address] [place] [phone], * (ABNORMAL) BASIC METABOLIC PANEL (07/27/2023 11:41 AM ROOFER GYPSUM) SODIUM 139 136 - 145 mmol/L 07/27/2023 12:20 PM [facility] POTASSIUM 4.2 3.5 - 5.1 mmol/L 07/27/2023 12:20 PM [facility] CHLORIDE 102 98 - 107 mmol/L 07/27/2023 12:20 PM ROOFER GYPSUM [facility] CO2,TOTAL 28 22 - 29 mmol/L 07/27/2023 12:20 PM [facility] ANION GAP 9 5 - 18 07/27/2023 12:20 PM [facility] GLUCOSE 110(H) 70 - 99 mg/dL 07/27/2023 12:20 PM [facility] CALCIUM 9.0 8.8 - 10.2 mg/dL 07/27/2023 12:20 PM [facility] BUN 32(H) 8 - 23 mg/dL 07/27/2023 12:20 PM [facility] CREATININE 1.25(H) 0.50 - 0.90 mg/dL 07/27/2023 12:20 PM [facility] BUN/CREAT RATIO 26(H) 10 - 20 12:20 PM [facility] eGFR 45(L) >90 mL/min/1.7 3m2 07/27/2023 12:20 PM [facility] Comment:As of 2021, eG FR is calculated by the CKD-EPI creatinine equation without race adjustment. ??eGFR can be influenced by muscle mass, exercise, and diet. ??The reported eGFR is an estimation only and is only applicable if the renal function is stable. Blood BLOOD SPECIMEN / Unknown Venipuncture / Unknown 07/27/2023 11:41 AM ROOFER GYPSUM 07/27/2023 11:48 AM ROOFER GYPSUM Rehan Alarcon NP [facility] [address] [place] [address], [place] * ECHO TTE COMPLETE WO CONTRAST (07/15/2023 3:26 PM ROOFER GYPSUM) AORTIC VALVE MEAN PG 4 mmHg EJECTION FRACTION 65 % LVEDD 3.8 cm Anatomical Region Laterality Modality Ultrasound 07/14/2023 2:46 PM ROOFER GYPSUM Narrative 07/14/2023 5:16 PM ROOFER GYPSUM ECHOCARDIOGRAM TANNER JAMES ?Accession#: ?? [id number] : ?1945 78 years Study Date: ?? 07/14/2023 2:46:41 PM Gender: F ? BP: ? 131/65 mmHg Height: 160.00 cm ? BSA: ?1.82 m? ? ? Weight: 79.00 kg ?Tech: ? AH ?Referring MD: TYREE ARMIJO Site: ? [facility] Reading Location: ANW OP Patient Location: [...] valve is a normal functioning 26 mm Asima 3 bioprosthesis AVR, CoreValve bioprosthesis AVR and [...] . This study was interpreted by an [facility] accredited facility. ??Final ?? Procedure Note Mayito Pardo MD - 07/14/2023 ECHOCARDIOGRAM TANNER JAMES : 1945 78 years Study Date: 07/14/2023 2:46:41 PM Gender: F BP: 131/65 mmHg Height: 160.00 cm BSA: 1.82 m? ? ? Weight: 79.00 kg Tech: Referring MD: TYREE ARMIJO Site: [facility] Reading Location: ANW OP Patient Location: [...] . This study was interpreted by an [facility] accredited facility. Final Tyree Armijo MD ECHO ORD * XR DXA BONE DENSITY 2 SITES AXIAL (02/02/2018 3:00 PM CDT) Anatomical Region Laterality Modality Spine, HIPS, HIPL, HIPR Other 02/02/2018 3:41 PM CDT Narrative 02/02/2018 3:44 PM CDT EXAM: XR DXA BONE DENSITY 2 SITES AXIAL INDICATION: Disorder of bone. ??Osteopenia. ??Postmenopausal. TECHNIQUE: Standardized bone density measurements were obtained using the Sakti3 bone densitometry system. COMPARISON: None. FINDINGS: SPINE: [...] bone density measurements were obtained using the Gild bone densitometry system. COMPARISON: None. 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 Luo Dentistry - General 01/12/18
--- OUTSIDE RECORDS SUMMARY | 2023-10-09 13:14 | XMS_ITS ---
Author Name Unknown Organization [facility] Address [address] [place] [address] Care Team Providers Care Coal Gasification Technician Name Role Phone Unavailable Unavailable Unavailable Surgery Details Not on file Complications Check Surgery Details section. Procedure Estimated Blood Loss Check Surgery Details section. Procedure Findings Check Surgery Details section. Procedure Specimens Taken Check Surgery Details section.
--- OUTSIDE RECORDS SUMMARY | 2023-10-09 13:14 | XMS_ITS | Data Portability ---
Author Name Unknown Address [address] [place] [address] Phone [phone] Organization [facility], [facility] Address [address] [facility] [address] [place] [address] Assessment No assessment recorded. Plan of Treatment [...] with a nephrect gilmar. Lamont Bravo MD [address] [place] [address], [phone], [facility] 2 16:32:18 Recurrent urinary tract infection Active 022 Managed with daily Bactrim Lamont Bravo MD [address] [place] [address], [phone], [facility] 16:32:42 Problem Notes None recorded. Procedures Surgical History Date Name Laterality Status Provider Name and Address Organization Details Recorded Time 07/11/19 22 NEPHRECTOMY, HAND ASSISTED LAPAROSCOPIC (SURG) completed Mary moss [facility] 07/17/2021 09:46:04 Imaging Results None recorded. Procedure Notes None recorded. Medical Equipment None Reported. Allergies Allergen ID Allergen Name Allergen Category Reaction Reaction Severity Criticality Documentation Date Start Date Code Code System Note Provider Name and Address Organization Details Recorded Time 216823 Non-stero idal anti-infl ammatory agent (product) medicatio n Not available Not available Not available 03/20/2021 41914 005 SNOMED Lamont Bravo MD [address] [place] [address],[address] [place] [address], [phone], [facility] 1 16:22:56 [id number] Levaquin medicatio n Not available Not available Not available 03/20/2021 50739 2 Bree Bravo MD [address] [place] [address],[address], [place], [phone], [facility] 1 16:23:24 204211 levofloxa giorgio medicatio n other Not available Not available 08/11/20212021 73490 Bree Bravo MD [address] [place] [address],[address], [place], [phone], [facility] 2 16:06:24 101808 terbinafi ne hydrochlo ride medicatio n fever headache Not available Not available Not available 08/11/20212019 72173 8 Bree Bravo MD [address] [place] [address],[address] [place] [address], [phone], [facility] 2 16:06:24 Medications Name Sig Start [...] Updated DateTime 03/20/2021 160.02 cm 33.7 kg/m2 54636.55 g Lamont Bravo MD [address] [place] [address],[address], [phone] [place] [address] Urology 03/20/2021 16:22:47 Date Recorded Body height Body mass index (BMI) Body weight Provider Name and Address Organization Details Last Updated DateTime 08/11/2021 160.02 cm 28.3 kg/m2 54064.78 g Lamont Bravo MD [address] [place] [address],[place] [phone] [place] [address] Urology 08/11/2021 16:06:06 Social History Question Answer Notes LastModified by Organizat ion Details LastModified Time Tobacco Smoking Status Never Smoker Lamont Bravo MD [address] [place] [address],[address], [phone] [place] [address] Urology 03/20/2021 16:24:21 What Is Your Level [...] polysaccharide PPV23 04/30/2010 completed Lamont Bravo MD [address] [place] [address],[address] [place] [address], [phone], [facility] 08/11/2021 16:07:09 Pneumococcal conjugate PCV 13 01/31/2015 completed Lamont Bravo MD [address] [place] [address],[address], [phone], [facility] 08/11/2021 16:07:09 pneumococcal polysaccharide PPV23 03/28/2015 completed Lamont Bravo MD [address] [place] [address],[address], [phone], [facility] 08/11/2021 16:07:09 Pneumococcal conjugate PCV 13 03/28/2016 completed Lamont Bravo MD [address] [place] [address],[address], [address], [facility] 08/11/2021 16:07:10 pneumococcal polysaccharide PPV23 03/09/2016 completed Lamont Bravo MD [address] [place] [address],[address], [address], [facility] 08/11/2021 16:07:10 Past Encounters Encounter ID Performer Location Encounter Start Date Encounter Closed Date Diagnosis/Indication Diagnosis SNOMED-CT Code [id number] MD TAMIKA Hudson_Edinjuju [address] [place] [address] 03/20/2021 16:12:05 03/24/2021 11:06:39 Kidney stone [id number] MD Sondra Hudson [address] 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 Health Concerns Section Related Observation LastModified by Organization Detai ls LastModified Time None Recorded Concern Status LastModified by Organization Details LastModified Time None Recorded Advance Directives Directive None Recorded Payers Encounter Date Sequence Insurance Name Policy Number Policy Oshea Covered Member ID Oshea Member ID Guarantor Name 08/11/2021 1 [place] [employer] Tanner James [id number] Tanner James 08/11/2021 2 [facility] (MEDICARE SUPPLEMENT) Tanner James [id number] Tanner James 03/20/2021 1 [place] [employer] Tanner James [id number] Tanner James 03/20/2021 2 [facility] (MEDICARE SUPPLEMENT) Tanner James [id number] Tanner James Notes Date Note Type Note Provider Name and Address Organization Details Recorded Time 03/20/2021 text/html HPI Notes: New patient here to discuss nephrectomy. She fell when she was at [place] and that led to a CT scan that showed an atrophic kidney and a staghorn stone. She's had recurrent pyelonephritis as well. She had ESWL in 2002. She also has a poor aortic valve. Lamont Bravo MD [address] [place] [address],[address] [place] [address], [phone], [facility] 03/20/2021 17:02:40 08/11/2021 text/html HPI Notes: She h as recovered well from surgery. 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 Lamont Bravo MD [address] [place] [address],[address], [place], [address], [facility] 08/11/2021 16:37:50 OBGyn Episode No OBEpisode recorded.
--- OUTSIDE RECORDS SUMMARY | 2023-10-09 13:14 | XMS_ITS | Referral Summary ---
Author Name Unknown Organization [facility] Address [address] [place] [address] Care Team Providers Care Electrical Maintenance Man Name Role Phone Elsewhere, Pcp Primary Care Provider Unavailabl e Source Comments Patient records contain information from all sites at [facility]. For routine questions regarding patient records, call [phone] during business hours, M-F 8:00 AM - 5:00 PM Central Time. Record requests for emergency care only can be directed to [phone] at any time.[facility] Allergies Active Allergy Reactions Criticality Noted [...] How often do you attend chur or latter day services? Never 08/12/2022 Do you belong to any clubs o r organizations such as christian groups, unions, fraternal or athletic groups, or [...] and heating? Not hard at all 08/12/2022 [facility] - Occupational Stress Questionnaire Answer Date Recorded [...] place to sleep or slept in a skilled nursing (including now)? No 08/12/2022 Nutrition Answer Date [...] 36.1 ??C (97 ??F) 08/17/2022 10:57 AM [employer] Respiratory Rate 18 01/09/2022 8:24 AM CDT Oxygen Saturation 98% 01/09/2022 8:24 AM CDT Inhaled Oxygen Concentration - - Weight 74.1 kg (163 lb 5.8 oz) 01/06/2022 11:26 AM CDT Height 160 cm (5' 2.99) 01/06/2022 11:26 AM CDT Body Mass Index 28.95 01/06/2022 11:26 AM CDT Plan of Treatment Not on file Procedures Procedure Name Priority Date/Time Associated Diagnosis Comments EXTI BASIC METABOLIC PANEL, S/P Routine 07/27/2023 11:41 AM [employer] BI BREAST SCREENING BILATERAL WITH TOMOSYNTHESIS Routine 02/08/2019 1:03 PM CDT from Last 3 Months or Most Recently Relevant to Health Maintenance Advance Directives For more information, please contact: [phone] * DNR/DNI (Latest Code Status on File) Date Activated Date Inactivated Comments 12/28/2021 12:42 PM 01/09/2022 1:10 PM * DNR/DNI Date Activated Date Inactivated Comments 12/23/2020 8:47 PM 12/25/2020 5:38 PM * Full Code Date Activated Date Inactivated Comments 12/23/2020 8:20 PM 12/23/2020 8:47 PM Question Answer Comments Full Code: Discussed Care Teams Electrical Maintenance Man Relationship Specialty Start Date End Date Elsewhere, Pcp PCP - General 12/24/20
[2023-10-09 13:15] LABS: Slide Review Reflex No
--- OUTSIDE RECORDS SUMMARY | 2023-10-09 13:15 | XMS_ITS | Encounter Summary ---
Author Name Unknown Organization [facility] Address [address] [place] [address] Care Team Providers Care Petroleum Terminal Plant Operator Name Role Phone Basilio Healy MD Primary Care Provider [phone] Encounter Details Date Type Department Care Team (Late st Contact Info) Description 07/13/2023 Orders Only [facility] 3800 Rheumatology [address] [facility] [place], [place] [phone] Swapnil Henley MD [address] [place], [place] [address] Social History Tobacco Use Types Packs/Day Years [...] 10/13/2023 2:00 PM CDT Hospital Encounter [facility] [address] [place], [place] [address] 10/26/2023 12:40 PM CDT [place] [address] [place], [place] [address]687 Shara Mitchell MD [address] [facility] [address] [place], [place] [address] 10/28/2023 12:30 PM CDT Appointment [facility] 3931 Pulmonary Lab 3931 [place] [address] 10/28/2023 1:45 PM CDT Office Visit Specialty Center 3931 Pulmonary Medicine 3931 [place] [address] Shara Mitchell MD [address] [facility] [address] [place], [place] [address] 12/13/2023 1:00 PM CDT Appointment [facility] [address] [place], [place] [phone] Man Sánchez MD [address] [place], [place] [address] documented as of this encounter Procedures Procedure Name Priority Date/Time Associated Diagnosis Comments PAOLA (DIABETIC EYE EXAM) 07/13/2023 documented in this encounter Results * PAOLA (DIABETIC EYE EXAM) (07/13/2023) Swapnil Henley MD DUMMY/OTHER/AR documented in this encounter Visit Diagnoses Not on filedocumented in this encounter Care Teams Petroleum Terminal Plant Operator Relationship Specialty Start Date End Date Basilio Healy MD [facility] [address] [place] [address] PCP - General Family Practice 10/28/22 documented as of this encounter
--- OUTSIDE RECORDS SUMMARY | 2023-10-09 13:15 | XMS_ITS | Encounter Summary ---
Author Name Unknown Organization [facility] Address [address] [place] [address] Care Team Providers Care R And D Lab Technician Name Role Phone Basilio Healy MD Primary Care Provider [phone] Reason for Visit * Reason Comments Refill Encounter Details Date Type Department Care Team (Late Contact Info) Description 02/06/2016 Refill [facility] 3800 Rheumatology [facility] [place], [place] [address] Swapnil Henley MD 3800 [place] [address] Refill Social History Tobacco Use Types Packs/Day [...] PM CDT Hospital Encounter [facility] [address] [place] [address] 10/26/2023 12:40 PM CD[address] [place] [place] [address] [place] [address] Shara Mitchell MD [address] [facility] [address] [place] [address] 10/28/2023 12:30 PM CDT Appointment [facility] 3931 Pulmonary Lab 3931 [place] [address] 10/28/2023 1:45 PM CDT Office Visit [facility] 3931 Pulmonary Medicine [address] [place] [address] Shara Mitchell MD [address] [facility] [address] [place] [address] 12/13/2023 1:00 PM CDT Appointment [facility] [address] [place], [place] [phone] Man Sánchez MD [address] [place], [place] [address] documented as of this encounter Visit Diagnoses Not on filedocumented in this encounter Care Teams R And D Lab Technician Relationship Specialty Start Date End Date Basilio Healy MD [facility] [address] [place] [address] PCP - General Family Practice 10/28/22 documented as of this encounter
--- OUTSIDE RECORDS SUMMARY | 2023-10-09 13:15 | XMS_ITS | Encounter Summary ---
Author Name Unknown Organization [facility] Address [address] [place] [address] Care Team Providers Care Paraprofessional Aide Teacher Name Role Phone Basilio Healy MD Primary Care Provider [phone] Encounter Details Date Type Department Care Team (Latest Contact Info) Description 09/02/2023 Orders Only HIM DEPARTMENT Provider, [place] [address] Social History Tobacco Use Types Packs/Day Years [...] 10/13/2023 2:00 PM CDT Hospital Encounter [facility] Center [address] [place] [address] 10/26/2023 12:40 PM CDT [place] Scan [address] [place] [address] Shara Mitchell MD [address] [facility] [address] [place] [address] 10/28/2023 12:30 PM CDT Appointment [facility] 3931 Pulmonary Lab [address] [place] [address] 10/28/2023 1:45 PM CDT Office Visit [facility]ty Center 3931 Pulmonary Medicine [address] [place] [address] Shara Mitchell MD [address] [facility] [address] [place], [place] [address] 12/13/2023 1:00 PM CDT Appointment [place] [address] [place], [place] [phone] Man Sánchez MD [address] [place], [place] [phone] documented as of this encounter Procedures Procedure Name Priority Date/Time Associated Diagnosis Comments LABORATORY REPORT 09/02/2023 documented in this encounter Results * LABORATORY REPORT (09/02/2023) Interface Provider MD DUMMY/OTHER/AR documented in this encounter Visit Diagnoses Not on filedocumented in this encounter Care Teams Paraprofessional Aide Teacher Relationship Specialty Start Date End Date Basilio Healy MD [facility] [address] [place] [address] PCP - General Family Practice 10/28/22 documented as of this encounter
--- OUTSIDE RECORDS SUMMARY | 2023-10-09 13:15 | XMS_ITS | Encounter Summary ---
Author Name Unknown Organization [facility] Address [address] [place] [address] Care Team Providers Care Osd Clerk Name Role Phone Basilio Healy MD Primary Care Provider [phone] Reason for Referral * (Routine) - New Request Specialty Diagnoses / Procedures Referred By Contac t Referred To Contact Diagnoses Rheumatoid arthritis involving multiple joints (HRC) Primary osteoarthritis of both knees Procedures Triamcinolone Acet Inj Nos: (per 10 mg) Man Sánchez MD [address] [place] [address] Referral ID Status Reason Start Date Expiration Date V isits Requested Visits Authorized [id number] New Request 08/09/2023 11/07/2024 1 1 SEALER Reason for Visit * Reason Comments Follow-up Encounter Details Date Type Department Care Team (Late st Contact Info) Description 08/09/2023 12:00 PM DRUM SEALER Office Visit [facility] [address] [place] [address] Man Sánchez MD [address] [place] [address] Rheumatoid arthritis involving multiple joints [...] Man Sánchez MD - 08/09/2023 12:00 PM DRUM SEALER Longstanding history of seronegative rheumatoid arthritis and [...] 4 months follow-up or sooner if needed. SEALER documented in this encounter Progress Notes * [...] went through rehab 2007 Gastritis 03/2009 Hypertension ([facility]) 04/13/2009 Kidney stone LBP (low back pain) Morbid obesity with BMI of 40.0-44.9, adult ([facility]) 11/15/2015 Pneumonia 12/10/2016 with PE Pulmonary embolism ([facility]) 12/14/2016 Rheumatoid arthritis(714.0) ([facility]) 12/25/2008 Shoulder impingement 04/03/2013 Past Surgical History: Procedure Laterality Date COLONOSCOPY W/ POLYPECTOMY ([facility]) 10/26/2018 2 specimens (5 polyp). 3 year follow up ESOPHAGOGASTRODUODENOSCOPY ([facility]) 04/14/09 eswl LUMBAR FUSION ([facility]) 04/2010 lami and fusion; Dr Corea Outpatient [...] HUT Reaction: GI Bleeding; HUT Severity: High; [facility] Noted: [id number] Levaquin [Levofloxacin] Other, see comments Muscles snapped [...] software. As a result, wrong word or 'shsig-i-arfo' substitutions may have occurred due to the inherent limitations of voice recognition software. There may be errors in the script that have gone undetected. Please consider this when interpreting information found in this chart. SEALER documented in this encounter Plan of Treatment Upcoming Encounters Date Type Department Care Team (Late st Contact Info) Description 10/13/2023 2:00 PM CDT Hospital Encounter [facility] [address] [place] [address] 10/26/2023 12:40 PM CDT [place] [address] [place] [address] Shara Mitchell MD [address] [facility] [address] [place] [address] 10/28/2023 12:30 PM CDT Appointment [facility] 3931 Pulmonary Lab [address] [facility] [place] [address] 10/28/2023 1:45 PM CDT Office Visit [facility]ty Center 3931 Pulmonary Medicine [address] [place] [address] Shara Mitchell MD [address] [facility] [address] [place], [place] [address] 12/13/2023 1:00 PM CDT Appointment [facility] [address] [place] [address] Man Sánchez MD [address] [place], [place] [address] documented as of this encounter Visit Diagnoses Diagnosis Rheumatoid arthritis involving multiple joints (HRC)- Primary High risk medication use Encounter for long-term (current) use of other medications Primary osteoarthritis of both knees Primary localized osteoarthrosis, lower leg Current chronic use of systemic steroids Age related osteoporosis, unspecified pathological fracture presence (HRC) documented in this encounter Care Teams Osd Clerk Relationship Specialty Start Date End Date Basilio Healy MD [facility] [address] [place] [address] PCP - General Family Practice 10/28/22 documented as of this encounter
--- OUTSIDE RECORDS SUMMARY | 2023-10-09 13:15 | XMS_ITS | Encounter Summary ---
Author Name Unknown Organization [facility] Address [address] [place] [address] Care Team Providers Care Commercial Helicopter Pilot Name Role Phone Elsewhere, Pcp Primary Care Provider Unavailabl e Reason for Visit * Reason Onset Date Comments Cardiac Rehab 07/06/2023 Encounter Details Date Type Department Care Team (Late st Contact Info) Description 07/06/2023 Clinical Communication Department of Family Medicine in [place], [place] [address] [place] [phone] Louie Malagon M.D. [address] [place] [phone] Cardiac Rehab Social History Tobacco Use Types [...] often do you attend chur ch or adventism services? Never 08/12/2022 Do you belong to any clubs o r organizations such as protestant groups, unions, fraternal or athletic groups, or [...] and heating? Not hard at all 08/12/2022 [facility] - Occupational [...] place to sleep or slept in a intermediate (including now)? No 08/12/2022 Nutrition Answer Date [...] Samanta Leigh R.N. - 08/03/2023 1:32 PM UNIT ASSISTANT I contacted Es to discuss. She is [...] by: Samanta Leigh R.N. 08/03/23 1:35 PM UNIT ASSISTANT ASSISTANT * Telephone Encounter - Samanta Leigh R.N. - 07/06/2023 2:14 PM UNIT ASSISTANT Cardiac rehab referral received on 07/06/23. 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 Compression treatment was unsuccessful. Pt underwent vascular surgical repair on 06/23/23. I contacted patient to determine if she is currently at a nursing home facility or at home. Advised to contact our office at her convenience. Electronically signed by: Samanta Leigh R.N. 07/06/23 2:21 PM UNIT ASSISTANT ASSISTANT documented in this encounter Plan of Treatment Not on file documented as of this encounter Visit Diagnoses Not on filedocumented in this encounter Care Teams Commercial Helicopter Pilot Relationship Specialty Start Date End Date Elsewhere, Pcp PCP - General 12/24/20 documented as of this encounter
--- OUTSIDE RECORDS SUMMARY | 2023-10-09 13:15 | XMS_ITS | Encounter Summary ---
Author Name Unknown Organization [facility] Address [address] [place] [address] Care Team Providers Care Physicist Astrophysics Name Role Phone Basilio Healy MD Primary Care Provider [phone] Encounter Details Date Type Department Care Team (Late st Contact Info) Description 08/20/2023 Telephone Specialty Center 3931 Pulmonary Medicine [address] [place], [place] [phone] Shara Mitchell MD [address] [facility] [address] [place], [place] [phone] Social History Tobacco Use Types Packs/Day Years [...] make a CT appointment before her follow-up RT DEVELOPER * Yessenia Olivarez - 08/20/2023 4:00 PM [...] this imaging with us before her appt? RT DEVELOPER documented in this encounter Plan of Treatment Upcoming Encounters Date Type Department Care Team (Late st Contact Info) Description 10/13/2023 2:00 PM CDT Hospital Encounter [facility] [address] [place] [address] 10/26/2023 12:40 [address] [place] Scan [address] [place] [address] [place] [address] [place] [address] 10/28/2023 12:30 PM CDT Appointment [facility] [address] Pulmonary Lab [address] [place] [address] 10/28/2023 1:45 PM CDT Office Visit [facility] 39[address] Pulmonary Medicine [address] [place] [address] Shara Mitchell MD [address] [place] [address] 12/13/2023 1:00 PM CDT Appointment [facility] [address] [place] [address] Man Sánchez MD [address] [place] [address] documented as of this encounter Visit Diagnoses Not on filedocumented in this encounter Care Teams Physicist Astrophysics Relationship Specialty Start Date End Date Basilio Healy MD [facility] [address] [place] [address] PCP - General Family Practice 10/28/22 documented as of this encounter
--- OUTSIDE RECORDS SUMMARY | 2023-10-09 13:15 | XMS_ITS | Clinical Summary ---
Author Name Unknown Organization [facility] Address [address] [place] [address] Care Team Providers Care Dryer And Washer Mechanic Name Role Phone Basilio Healy MD Primary Care Provider [phone] Source Comments You are receiving this document as you are listed as the primary care provider,follow-up provider, or the patient has been referred to you for consultation.This is in compliance with the Medicare and[facility] EHR Incentive Program,which states Providers who transition their patient to another setting of careor provider of care or refers their patient to another provider of care shouldprovide summary care record for each transition of care or referral. [employer] Allergies Active Allergy Reactions Criticality Noted Date [...] Patient receives drug assistance for Enbrel from [employer]. Approved until 06/27/22-jm Problem Noted Date Diagnosed [...] annual mammogram; annual physical exam breast and automation lead Chronic anxiety 12/21/2011 Overview: Start sertraline 11/26/11; improved although residual; increase dose from 50mg to 100mg 12/21/2011. Patient discontinued 05/2012. 12/20/2012 start venlafaxine 37.5mg Osteopenia 12/07/2011 Overview: Catering Truck Operator wants patient to be on alendronate indefinitely [...] 04/21/2010 Overview: HGB 9.6 ON ADMIT TO [facility] 03/2009; ENDOSCOPY REVEALED SHALLOW GASTRIC [...] Telephone [facility] [facility] [address] [place] [address] Shara Mitchell MD 08/09/2023 12:00 PM [employer] Office Visit [facility] [address] [place], [place] [address] Man Sánchez MD Rheumatoid arthritis involving multiple joints (HRC) (Primary Dx); High risk medication use; Primary osteoarthritis of both knees; Current chronic use of systemic steroids; Age related osteoporosis, unspecified pathological fracture presence (HRC) 07/13/[address] [facility] [address] [place] [address]. [place] [address] Swapnil Henley MD from Last 3 Months Immunizations Name Administration Dates Next Due Flu Vac (3+ yrs) 04/03/2013, 2,04/30/2010, 009,04/10/2003 Flu Vac Preserv Free (3+yrs) 04/30/2010,04/15/20 09 HepA Adult (19+ yrs) 10/20/2004,03/07/2004 HepA Ped/Adol (1-18 yrs) 10/20/2004 HepA, Pediatric (DO NOT USE; for MIIC only) 10/20/2004 IPV (Polio) 03/07/2004 Influenza (Fluad) 04/19/2018 Influenza IIV3 (Trivalent) F kelly Highdose, 65+ Yrs (37714) 04/25/2019,03/09/2016,03/30/2014 Influenza IIV4 (Quadrivalent ) 0.5mL (94542) 04/23/2021,04/25/2019,04/19/2018, 016,03/30/2014,04/03/2013,04/15/2012,08/2009,04/15/2009,04/10/2003 Influenza IIV4 (Quadrivalent ) Fluzone, [...] Comments Blood Pressure 135/72 07/18/2019 3:38 PM [employer] Pulse 104 10/22/2022 1:45 PM CDT Temperature [...] PM CDT Hospital Encounter [facility] [address] [place] [address] 10/26/2023 12:40 PM CDT [place] [facility] [address] [place] [address] [place] [address] [place] [address] 10/28/2023 12:30 PM CDT Appointment [facility] [address] [place] [address] 10/28/2023 1:45 PM CDT Office Visit [facility] [address] [place] [address] Shara Mitchell MD [address] [place] [address] 12/13/2023 1:00 PM CDT Appointment [facility] [address] [place] [address] Man Sánchez MD [address] [place] [address] Health Maintenance Due Date Last Done Comments [...] RSLT - CREATININE Routine 08/24/2023 2:15 PM [employer] EXT RSLT - AST Routine 08/24/2023 2:15 PM [employer] EXT RSLT - ALT Routine 08/24/2023 2:15 PM [employer] EXT RSLT - WHITE BLOOD CELL COUNT (WBC) Routine 08/24/2023 2:15 PM [employer] EXT RSLT - HEMOGLOBIN Routine 08/24/2023 2:15 PM [employer] EXT RSLT - PLATELET COUNT Routine 08/24/2023 2:15 PM [employer] PAOLA (DIABETIC EYE EXAM) 07/13/2023 DXA BONE [...] * Creatinine (Ext Rslt) (08/24/2023 2:15 PM [employer]) EXT RSLT - CREATININE 1.0 0.5 - 1.0 mg/dL PN EXTERNAL LAB-SEE SCANNED DOCUMENT 08/24/2023 2:15 PM [employer] Man Sánchez MD LAB EXTERNAL RESULT Performing Organization Address City/[facility] Co de Phone Number PN EXTERNAL LAB-SEE SCANNED DOCUMENT Do Not Mail * White Blood Cell Count (WBC) (Ext Rslt) (08/24/2023 2:15 PM [employer]) EXT RSLT - WBC 9.16 4.50 - 11.0 K/uL PN EXTERNAL LAB-SEE SCANNED DOCUMENT 08/24/2023 2:15 PM [employer] Man Sánchez MD LAB EXTERNAL RESULT Performing Organization Address City/[facility]/ZIP Co de Phone Number PN EXTERNAL LAB-SEE SCANNED DOCUMENT Do Not Mail * Hemoglobin (Ext Rslt) (08/24/2023 2:15 PM [employer]) EXT RSLT - HGB 12.8 12.0 - 16.0 gm/dL PN EXTERNAL LAB-SEE SCANNED DOCUMENT 08/24/2023 2:15 PM [employer] Man Sánchez MD LAB EXTERNAL RESULT Performing Organization Address [facility] de Phone Number PN EXTERNAL LAB-SEE SCANNED DOCUMENT Do Not Mail * (ABNORMAL) Platelet Count (Ext Rslt) (08/24/2023 2:15 PM [employer]) Pathologist [facility] [place] EXT RSLT - PLATELET COUNT 96(L) 140 - 440 K/uL PN EXTERNAL LAB-SEE SCANNED DOCUMENT 08/24/2023 2:15 PM [employer] Man Sánchez MD LAB EXTERNAL RESULT Performing Organization Address [facility] de Phone Number PN EXTERNAL LAB-SEE SCANNED DOCUMENT Do Not Mail * (ABNORMAL) AST (Ext Rslt) (08/24/2023 2:15 PM [employer]) Pathologist [facility] [place] EST RSLT - AST 39(H) 12 - 35 U/L PN EXTERNAL LAB-SEE SCANNED DOCUMENT 08/24/2023 2:15 PM [employer] Man Sánchez MD LAB EXTERNAL RESULT Performing Organization Address [facility] de Phone Number PN EXTERNAL LAB-SEE SCANNED DOCUMENT Do Not Mail * ALT (Ext Rslt) (08/24/2023 2:15 PM [employer]) [facility] EXT RSLT - ALT 31 4 - 35 U/L PN E XTERNAL LAB-SEE SCANNED DOCUMENT 08/24/2023 2:15 PM [employer] Man Sánchez MD LAB EXTERNAL RESULT Performing Organization Address [facility] Co de Phone Number PN EXTERNAL LAB-SEE [...] not included. Patient Name: Tanner James Densitometer: [employer] W Appt Dept/Resource: [facility] Bone Density GRANDA [...] trabecular bone, and is derived from the [id number] changes of bone density embedded in the [...] Performed by Real Time PCR CLIA Number [id number] HCV Quant iu/ml <12 IU/ml HP CONVERSION Comment:CLIA Number [id number] HCV Quant Log iu/ml <1.08 Log IU/ml HP CONVERSION Comment: Performed at [facility], [address] [place] [address] ??[id number] CLIA Number [id number] 12/12/2015 11:4 4 AM CDT 12/12/2015 3:01 PM CDT Swapnil Henley MD LAB_1 HP CONVERSION from Last 3 Months or Most Recently Relevant to Health Maintenance Advance Directives Documents on File Type Date Recorded Patient Vascular Technologist Expl anation POLST 02/02/2017 01/05/2017 Care Teams Dryer And Washer Mechanic Relationship Specialty Start Date End Date Basilio Healy MD [facility] [address] [place] [address] PCP - General Family Practice 10/28/22
[2023-10-09 13:52] LABS: Albumin* 3.9 g/dL (3.3-5.0); Chloride* 109 mmol/L (96-114); Potassium* 4.6 mmol/L (3.6-5.1); Sodium* 139 mmol/L (135-149)
[2023-10-09 13:54] LABS: Est. Creatinine Clearance* 39.59; Estimated Glomerular Filt Rate 58 ml/min
[2023-10-09 13:55] LABS: Alanine Aminotransferase* 42 U/L (4-35); Alkaline Phosphatase* 54 U/L (40-150); Anion Gap -1 mEq/L (7-15); Aspartate Amino Transferase* 45 U/L (12-35); Bilirubin Total* 0.6 mg/dL (0.1-1.5); Blood Urea Nitrogen* 31 mg/dL (7-30); Carbon Dioxide* 31 mmol/L (20-32); Glucose* 111 mg/dL (60-115); Total Protein* 6.4 g/dL (6.0-8.3)
[2023-10-09 13:56] LABS: Calcium* 8.4 mg/dL (8.4-10.6)
[2023-10-09 14:33] VITALS: BP 179/90; PULSE 53; RESP 18; O2SAT 99
== END 2023-10-09 17:20 | disposition home or self-care (01) ==
PROVIDERS: Emergency Provider Family Medicine; PCP Family Medicine
DX: M51.17 Intervertebral disc disorders with radiculopathy, lumbosacral region (principal)
CPT/HCPCS: 36415; 72132; 73701; 74177; 80053; 83605; 85025; 94761; 99284; 99285; A9270; Q9967

== ENCOUNTER 2023-10-15 13:21 | Outpatient (CLI) | payer MEDICARE, OTHER, SELFPAY | END 2023-10-15 13:22 | disposition home or self-care (01) | LOC: WOUND 13:21 | PROVIDERS: PCP Family Medicine; Visit Provider Nurse Practitioner Family | DX: L89.894 Pressure ulcer of other site, stage 4 (principal); I35.0 Nonrheumatic aortic (valve) stenosis; E46 Unspecified protein-calorie malnutrition; Z68.30 Body mass index [BMI] 30.0-30.9, adult | CPT/HCPCS: 11042 ==

== ENCOUNTER 2023-10-21 10:24 | Outpatient (CLI) | payer MEDICARE, OTHER, SELFPAY ==
--- OUTSIDE RECORDS SUMMARY | 2023-10-26 17:56 | XMS_ITS | Clinical Summary ---
Author Name Unknown Organization [facility] Address [address] [place] [address] Care Team Providers Care Pediatric Audiologist Name Role Phone Elsewhere, Pcp Primary Care Provider Unavailabl e Source Comments Patient records contain information from all sites at [facility]. For routine questions regarding patient records, call [phone] during business hours, M-F 8:00 AM - 5:00 PM Central Time. Record requests for emergency care only can be directed to [phone] at any time.[facility] Allergies Active Allergy Reactions Criticality [...] How often do you attend chur or shinto services? Never 08/12/2022 Do you belong to any clubs o r organizations such as uatsdin groups, unions, fraternal or athletic groups, or [...] and heating? Not hard at all 08/12/2022 [facility] - Occupational Stress Questionnaire Answer Date Recorded [...] place to sleep or slept in a retirement (including now)? No 08/12/2022 Nutrition Answer Date [...] 36.1 ??C (97 ??F) 08/17/2022 10:57 AM WOOL CLASSER Respiratory Rate 18 01/09/2022 8:24 AM CDT [...] METABOLIC PANEL, S/P Routine 07/27/2023 11:41 AM WOOL CLASSER BI BREAST SCREENING BILATERAL WITH TOMOSYNTHESIS Routine 02/08/2019 1:03 PM CDT from Last 3 Months or Most Recently Relevant to Health Maintenance Advance Directives For more information, please contact: [phone] * DNR/DNI (Latest Code Status on File) Date Activated Date Inactivated Comments 12/28/2021 12:42 PM 01/09/2022 1:10 PM * DNR/DNI Date Activated Date Inactivated Comments 12/23/2020 8:47 PM 12/25/2020 5:38 PM * Full Code Date Activated Date Inactivated Comments 12/23/2020 8:20 PM 12/23/2020 8:47 PM Question Answer Comments Full Code: Discussed Care Teams Pediatric Audiologist Relationship Specialty Start Date End Date Elsewhere, Pcp PCP - General 12/24/20
--- OUTSIDE RECORDS SUMMARY | 2023-10-26 17:56 | XMS_ITS | Referral Summary ---
Author Name Unknown Organization [facility] Address [address] [place] [address] Care Team Providers Care Metal Checker Name Role Phone Elsewhere, Pcp Primary Care Provider Unavailabl e Source Comments Patient records contain information from all sites at [facility]. For routine questions regarding patient records, call [phone] during business hours, M-F 8:00 AM - 5:00 PM Central Time. Record requests for emergency care only can be directed to [phone] at any time.[facility] Allergies Active Allergy Reactions Criticality Noted Date [...] How often do you attend chur or rastafari services? Never 08/12/2022 Do you belong to any clubs o r organizations such as anabaptist groups, unions, fraternal or athletic groups, or [...] and heating? Not hard at all 08/12/2022 [facility] - Occupational Stress Questionnaire Answer Date [...] 36.1 ??C (97 ??F) 08/17/2022 10:57 AM BILLING DEPARTMENT SUPERVISOR Respiratory Rate 18 01/09/2022 8:24 AM CDT [...] METABOLIC PANEL, S/P Routine 07/27/2023 11:41 AM BILLING DEPARTMENT SUPERVISOR BI BREAST SCREENING BILATERAL WITH TOMOSYNTHESIS Routine 02/08/2019 1:03 PM CDT from Last 3 Months or Most Recently Relevant to Health Maintenance Advance Directives For more information, please contact: [phone] * DNR/DNI (Latest Code Status on File) Date Activated Date Inactivated Comments 12/28/2021 12:42 PM 01/09/2022 1:10 PM * DNR/DNI Date Activated Date Inactivated Comments 12/23/2020 8:47 PM 12/25/2020 5:38 PM * Full Code Date Activated Date Inactivated Comments 12/23/2020 8:20 PM 12/23/2020 8:47 PM Question Answer Comments Full Code: Discussed Care Teams Metal Checker Relationship Specialty Start Date End Date Elsewhere, Pcp PCP - General 12/24/20
--- OUTSIDE RECORDS SUMMARY | 2023-10-26 17:56 | XMS_ITS | Encounter Summary ---
Author Name Unknown Organization [facility] Address [address] [place] [address] Care Team Providers Care Remote Inpatient Coder Name Role Phone Elsewhere, Pcp Primary Care Provider Unavailabl e Reason for Visit * Reason Onset Date Comments Cardiac Rehab 07/06/2023 Encounter Details Date Type Department Care Team (Late st Contact Info) Description 07/06/2023 Clinical Communication Department of Family Medicine in [place], [place] [address] [place] [phone] Louie Malagon M.D. [address] [place] [phone] Cardiac Rehab Social History Tobacco Use Types [...] often do you attend chur ch or sabianism services? Never 08/12/2022 Do you belong to [...] and heating? Not hard at all 08/12/2022 [facility] - Occupational Stress [...] Samanta Leigh R.N. - 08/03/2023 1:32 PM STEAM BOX TENDER I contacted Es to discuss. She is [...] by: Samanta Leigh R.N. 08/03/23 1:35 PM STEAM BOX TENDER M BOX TENDER * Telephone Encounter - Samatna Leigh R.N. - 07/06/2023 2:14 PM STEAM BOX TENDER Cardiac rehab referral received on 07/06/23. 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 Compression treatment was unsuccessful. Pt underwent vascular surgical repair on 06/23/23. I contacted patient to determine if she is currently at a fpc facility or at home. Advised to contact our office at her convenience. Electronically signed by: Samanta Leigh R.N. 07/06/23 2:21 PM STEAM BOX TENDER M BOX TENDER documented in this encounter Plan of Treatment Not on file documented as of this encounter Visit Diagnoses Not on filedocumented in this encounter Care Teams Remote Inpatient Coder Relationship Specialty Start Date End Date Elsewhere, Pcp PCP - General 12/24/20 documented as of this encounter
--- OUTSIDE RECORDS SUMMARY | 2023-10-26 17:56 | XMS_ITS | Clinical Summary ---
Author Name Unknown Organization [facility] Address [address] [place] [address] Care Team Providers Care Farmer Diversified Crops Name Role Phone Basilio Healy MD Primary Care Provider Source Comments You are receiving this document as you are listed as the primary care provider,follow-up provider, or the patient has been referred to you for consultation.This is in compliance with the Medicare and[facility] EHR Incentive Program,which states Providers who transition their patient to another setting of careor provider of care or refers their patient to another provider of care shouldprovide summary care record for each transition of care or referral. Pin digital Allergies Active Allergy Reactions Criticality Noted Date [...] Patient receives drug assistance for Enbrel from [employer]. 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 Patient discontinued 05/2012. 12/20/2012 start venlafaxine 37.5mg Osteopenia 12/07/2011 Overview: Manufacturing Lab Technician wants patient to be on alendronate indefinitely [...] 04/21/2010 Overview: HGB 9.6 ON ADMIT TO [facility] 03/2009; ENDOSCOPY REVEALED SHALLOW GASTRIC [...] Telephone [facility] Pulmonary Medicine [address] [place], [place] [id number] Shara Mitchell MD 08/09/2023 12:00 PM CUSTOMER SALES SERVICE MANAGER Office Visit [facility] [address] [place], [place] [phone] Man Sánchez MD Rheumatoid arthritis involving multiple [...] IIV3 (Trivalent) F kelly Highdose, 65+ Yrs (04981) 04/25/2019,03/09/2016,03/30/2014 Influenza IIV4 (Quadrivalent ) 0.5mL (09603) 04/23/2021,04/25/2019,04/19/2018, 016,03/30/2014,04/03/2013,04/15/2012,08/2009,04/15/2009,04/10/2003 Influenza IIV4 (Quadrivalent ) Fluzone, [...] Comments Blood Pressure 135/72 07/18/2019 3:38 PM CUSTOMER SALES SERVICE MANAGER Pulse 104 10/22/2022 1:45 PM CDT [...] Care Team (Late st Contact Info) Description 10/28/2023 12:30 PM CDT Appointment [facility] Pulmonary Lab [address] [place], [place] [address] 10/28/2023 1:45 PM CDT Office Visit [facility] Pulmonary Medicine [address] [place], [place] [phone] Shara Mitchell MD [address] [facility] [address] [place], [place] [phone] 12/13/2023 1:00 PM CDT Appointment [facility] [address] [place], [place] [phone] Man Sánchez MD [address] [place], [place] [phone] Health Maintenance Due Date Last Done Comments [...] RSLT - CREATININE Routine 08/24/2023 2:15 PM CUSTOMER SALES SERVICE MANAGER EXT RSLT - AST Routine 08/24/2023 2:15 PM CUSTOMER SALES SERVICE MANAGER EXT RSLT - ALT Routine 08/24/2023 2:15 PM CUSTOMER SALES SERVICE MANAGER EXT RSLT - WHITE BLOOD CELL COUNT (WBC) Routine 08/24/2023 2:15 PM CUSTOMER SALES SERVICE MANAGER EXT RSLT - HEMOGLOBIN Routine 08/24/2023 2:15 PM CUSTOMER SALES SERVICE MANAGER EXT RSLT - PLATELET COUNT Routine 08/24/2023 2:15 PM CUSTOMER SALES SERVICE MANAGER DXA BONE DENSITY SPINE/HIP INC VERT [...] * LABORATORY REPORT (09/02/2023) Interface Provider DUMMY/OTHER/AR * Creatinine (Ext Rslt) (08/24/2023 2:15 PM CUSTOMER SALES SERVICE MANAGER) [facility] EXT RSLT - CREATININE 1.0 0.5 - 1.0 mg/dL PN EXTERNAL LAB-SEE SCANNED DOCUMENT 08/24/2023 2:15 PM CUSTOMER SALES SERVICE MANAGER Man Sánchez MD LAB EXTERNAL RESULT Performing Organization Address [facility] de Phone Number PN EXTERNAL LAB-SEE SCANNED DOCUMENT Do Not Mail * White Blood Cell Count (WBC) (Ext Rslt) (08/24/2023 2:15 PM CUSTOMER SALES SERVICE MANAGER) [facility] EXT RSLT - WBC 9.16 4.50 - 11.0 K/uL PN EXTERNAL LAB-SEE SCANNED DOCUMENT 08/24/2023 2:15 PM CUSTOMER SALES SERVICE MANAGER Man Sánchez MD LAB EXTERNAL RESULT Performing Organization Address [facility] de Phone Number PN EXTERNAL LAB-SEE SCANNED DOCUMENT Do Not Mail * Hemoglobin (Ext Rslt) (08/24/2023 2:15 PM CUSTOMER SALES SERVICE MANAGER) [facility] EXT RSLT - HGB 12.8 12.0 - 16.0 gm/dL PN EXTERNAL LAB-SEE SCANNED DOCUMENT 08/24/2023 2:15 PM CUSTOMER SALES SERVICE MANAGER Man Sánchez MD LAB EXTERNAL RESULT Performing Organization Address [facility] de Phone Number PN EXTERNAL LAB-SEE SCANNED DOCUMENT Do Not Mail * (ABNORMAL) Platelet Count (Ext Rslt) (08/24/2023 2:15 PM CUSTOMER SALES SERVICE MANAGER) [facility] EXT RSLT - PLATELET COUNT 96(L) 140 - 440 K/uL PN EXTERNAL LAB-SEE SCANNED DOCUMENT 08/24/2023 2:15 PM CUSTOMER SALES SERVICE MANAGER Mna Sánchez MD LAB EXTERNAL RESULT Performing Organization Address [facility] de Phone Number PN EXTERNAL LAB-SEE SCANNED DOCUMENT Do Not Mail * (ABNORMAL) AST (Ext Rslt) (08/24/2023 2:15 PM CUSTOMER SALES SERVICE MANAGER) Pathologist [facility] EST RSLT - AST 39(H) 12 - 35 U/L PN EXTERNAL LAB-SEE SCANNED DOCUMENT 08/24/2023 2:15 PM CUSTOMER SALES SERVICE MANAGER Man Sánchez MD LAB EXTERNAL RESULT Performing Organization Address [facility] de Phone Number PN EXTERNAL LAB-SEE SCANNED DOCUMENT Do Not Mail * ALT (Ext Rslt) (08/24/2023 2:15 PM CUSTOMER SALES SERVICE MANAGER) [facility] EXT RSLT - ALT 31 4 - 35 U/L PN E XTERNAL LAB-SEE SCANNED DOCUMENT 08/24/2023 2:15 PM CUSTOMER SALES SERVICE MANAGER Man Sánchez MD LAB EXTERNAL RESULT Performing Organization Address [facility] de Phone Number PN EXTERNAL LAB-SEE SCANNED DOCUMENT Do Not Mail * DXA Bone Density Spine/Hip Inc Vert FX Assess (10/07/2022 3:48 PM CDT) [facility] DXA Hip Left Bone Mineral Density 0.825 [...] not included. Patient Name: Tanner James Densitometer: Law[employer]ite W Appt Dept/Resource: Granda Bone Density GRANDA [...] trabecular bone, and is derived from the ytinx-wq-gwvhd changes of bone density embedded in the [...] Performed by Real Time PCR CLIA Number [id number] HCV Quant iu/ml <12 IU/ml HP CONVERSION Comment:CLIA Number [id number] HCV Quant Log iu/ml <1.08 Log IU/ml HP CONVERSION Comment: Performed at [facility], [address] ??[address] [place] Number [id number] 12/12/2015 11:4 4 AM CDT 12/12/2015 3:01 PM CDT Swapnil Henley MD LAB_1 HP CONVERSION from Last 3 Months or Most Recently Relevant to Health Maintenance Advance Directives Documents on File Type Date Recorded Patient Personal Service Representative Expl anation POLST 02/02/2017 01/05/2017 Care Teams Farmer Diversified Crops Relationship Specialty Start Date End Date Basilio Healy MD [facility] [address] [place] [address] PCP - General Family Practice 10/28/22
--- OUTSIDE RECORDS SUMMARY | 2023-10-26 17:56 | XMS_ITS | Encounter Summary ---
Author Name Unknown Organization [facility] Address [address], [place] [address] Care Team Providers Care Financial Sales Professional Name Role Phone Basilio Healy MD Primary Care Provider [phone] Reason for Referral * (Routine) - New Request Specialty Diagnoses / Procedures Referred By Contac t Referred To Contact Diagnoses Rheumatoid arthritis involving multiple joints (HRC) Primary osteoarthritis of both knees Procedures Triamcinolone Acet Inj Nos: (per 10 mg) Man Sánchez MD [address] [place] [address] Referral ID Status Reason Start Date Expiration Date V isits Requested Visits Authorized [id number] New Request 08/09/2023 11/07/2024 1 1 ONOMY INSTRUCTOR Reason for Visit * Reason Comments Follow-up Encounter Details Date Type Department Care Team (Late st Contact Info) Description 08/09/2023 12:00 PM ASTRONOMY INSTRUCTOR Office Visit [facility] [address] [place] [address] Man Sánchez MD [address] [place] [address] Rheumatoid arthritis involving multiple joints [...] Man Sánchez MD - 08/09/2023 12:00 PM ASTRONOMY INSTRUCTOR Longstanding history of seronegative rheumatoid arthritis and [...] 4 months follow-up or sooner if needed. ONOMY INSTRUCTOR documented in this encounter Progress Notes * [...] went through rehab 2007 Gastritis 03/2009 Hypertension ([facility]) 04/13/2009 Kidney stone LBP (low back pain) Morbid obesity with BMI of 40.0-44.9, adult ([facility]) 11/15/2015 Pneumonia 12/10/2016 with PE Pulmonary embolism ([facility]) 12/14/2016 Rheumatoid arthritis(714.0) ([facility]) 12/25/2008 Shoulder impingement 04/03/2013 Past Surgical History: Procedure Laterality Date COLONOSCOPY W/ POLYPECTOMY ([facility]) 10/26/2018 2 specimens (5 polyp). 3 year follow up ESOPHAGOGASTRODUODENOSCOPY ([facility]) 04/14/09 eswl LUMBAR FUSION ([facility]) 04/2010 lami and fusion; Dr Corea Outpatient [...] HUT Reaction: GI Bleeding; HUT Severity: High; [facility] Noted: [id number] Levaquin [Levofloxacin] Other, see comments Muscles snapped [...] sooner if needed. Man Ramírez MD Rheumatology [facility] What[facility] 08/09/2023 This note consists of symbols derived from keyboarding, and voice recognition software. As a result, wrong word or 'yzerk-i-pncm' substitutions may have occurred due to the inherent limitations of voice recognition software. There may be errors in the script that have gone undetected. Please consider this when interpreting information found in this chart. ONOMY INSTRUCTOR documented in this encounter Plan of Treatment Upcoming Encounters Date Type Department Care Team (Late st Contact Info) Description 10/28/2023 12:30 PM CDT Appointment [facility] [address] [place] [address] 10/28/2023 1:45 PM CDT Office Visit [facility] [address] Pulmonary Medicine [address] [place] [id number] [place] [address] [place] [address] [address] [place], [place] [address] 12/13/2023 1:00 PM CDT Appointment [facility] [address] [place], [place] [address] Man Sánchez MD [facility] [place] [address] documented as of this encounter Visit Diagnoses Diagnosis Rheumatoid arthritis involving multiple joints (HRC)- Primary High risk medication use Encounter for long-term (current) use of other medications Primary osteoarthritis of both knees Primary localized osteoarthrosis, lower leg Current chronic use of systemic steroids Age related osteoporosis, unspecified pathological fracture presence (HRC) documented in this encounter Care Teams Financial Sales Professional Relationship Specialty Start Date End Date Basilio Healy MD [facility] [address] [place] [address] PCP - General Family Practice 10/28/22 documented as of this encounter
--- OUTSIDE RECORDS SUMMARY | 2023-10-26 17:56 | XMS_ITS | Clinical Summary ---
Author Name Unknown Organization [employer] [facility] Address [place], [place] [address] Care Team Providers Care Punch Finisher Name Role Phone Swapnil Henley MD Unavailable Hernanlona Marlys N RD Unavailable Funmi Medina Unavailable [phone] Kyle Healy MD Primary Care Provider [phone] Allergies Active Allergy Reactions Criticality Noted Date [...] annual mammogram; annual physical exam breast and retrimmer Shoulder impingement 04/03/2013 017 Chronic anxiety 12/21/2011 05/05/2023 Overview: Start sertraline 11/26/11; improved although residual; increase dose from 50mg to 100mg 12/21/2011. Patient discontinued 05/2012. 12/20/2012 start venlafaxine 37.5mg Osteopenia 12/07/2011 05/05/2023 Overview: Metal Pourer wants patient to be on alendronate indefinitely [...] Overview: [facility]; ENDOSCOPY REVEALED SHALLOW GASTRIC [...] Department Care Team Description 07/27/2023 4:20 PM AUTO SEAT COVER INSTALLER Office Visit [facility] [address] [place] [address] Marcos, Vsrg 07/27/2023 1:00 PM AUTO SEAT COVER INSTALLER Office Visit [facility] [address] [phone] Rehan Alarcon, HERNAN CV Valve Est (VALVE EST: 30 DAY F/U S/P TAVR, LABS, CT MORPH, & TTE PRIOR, NEEDS EKG, KCCQ12, 5M WALK, LETTER SENT, JLS//PCP: Kyle Healy MD/) 07/27/2023 11:30 AM AUTO SEAT COVER INSTALLER - 07/27/2023 11:59 PM AUTO SEAT COVER INSTALLER Hospital Encounter [facility] [address] [place] [address] Rehan Alarcon NP Severe aortic stenosis 07/27/2023 11:20 AM AUTO SEAT COVER INSTALLER Orders Only [facility] [address] [phone] Lab (/) 07/27/2023 Travel from Last 3 [...] Comments Blood Pressure 159/76 07/27/2023 1:14 PM AUTO SEAT COVER INSTALLER Pulse 52 07/27/2023 1:14 PM AUTO SEAT COVER INSTALLER Temperature 36.4 ??C (97.6 ??F) 07/01/2023 8:06 AM CS T Respiratory Rate 16 07/09/2023 3:27 PM AUTO SEAT COVER INSTALLER Oxygen Saturation 97% 07/27/2023 1:14 PM AUTO SEAT COVER INSTALLER Inhaled Oxygen Concentration - - Weight 80.3 kg (177 lb) 07/27/2023 1:14 PM AUTO SEAT COVER INSTALLER Height 160 cm (5' 3) 07/27/2023 1:14 PM AUTO SEAT COVER INSTALLER Body Mass Index 31.35 07/27/2023 1:14 PM AUTO SEAT COVER INSTALLER Plan of Treatment Health Maintenance Due Date [...] 02/27/2015, 11/26/2011 Medical Devices Implanted Type Area Chartered Accountant Device Identifier Shelf Expiration Date Model / Serial / Lot Screw Tsrh Og Thin 6.5x50mm - [id number] Implanted:Qty: 3 on 04/28/2010 at [facility] N/A: Spine [employer]FAMOR [employer]ANEK [id number]# / / Screw Locking 4x20mm Fine Tip Titnm - [id number] Implanted:Qty: 4 on 04/28/2010 at [facility] [employer] 04.802.211 # / / Screw Thin Crest 6.5x45mm - [id number] Implanted:Qty: 1 on 04/28/2010 at [facility] [id number]# / / Set Screw 3dx - [id number] Implanted:Qty: 4 on 04/28/2010 at [facility] [id number]# / / Cnnctr Tsrh 3dx Sm - [id number] Implanted:Qty: 4 on 04/28/2010 at [facility] Medtronic [id number]# / / Rios 3.5cmx5.5mm Pre-Cut - [id number] Implanted:Qty: 2 on 04/28/2010 at [facility] [id number]# / / Kit Infuse Md - [id number] Implanted:Qty: 1 on 04/28/2010 at [facility] Spine [employer]OR [employer]ANEK 10/26/2012 [id number]# / / [id number] Filler Bio [id number] 5 - [id number] Implanted:Qty: 1 on 04/28/2010 at [facility] [place] [id number]# / / [id number] Synfix Lr 26mm Implanted:Qty: 1 on 04/28/2010 at [facility] Spine [employer] [id number] S / / [id number] Description:SYNFIX LR 26MM Procedures Procedure Name Priority Date/Time Associated Diagnosis Comments EKG 12 LEAD Routine 07/27/2023 1:13 PM AUTO SEAT COVER INSTALLER S/P TAVR (transcatheter aortic valve replacement) CT CARDIAC MORPHOLOGY W DUAL READ Routine 07/27/2023 12:56 PM AUTO SEAT COVER INSTALLER Severe aortic stenosis PLATELET ESTIMATE Routine 07/27/2023 11: 41 AM AUTO SEAT COVER INSTALLER Severe aortic stenosis CBC W PLT NO DIFF Routine 07/27/2023 11: 41 AM AUTO SEAT COVER INSTALLER Severe aortic stenosis BASIC METABOLIC PANEL Routine 07/27/2023 11:41 AM AUTO SEAT COVER INSTALLER Severe aortic stenosis XR DXA BONE DENSITY 2 SITES AXIAL Routine 02/02/2018 3:00 PM CDT Disorder of bone Osteopenia, unspecified location from Last 3 Months or Most Recently Relevant to Health Maintenance Results * CT CARDIAC MORPHOLOGY W DUAL READ (07/27/2023 12:56 PM AUTO SEAT COVER INSTALLER) Anatomical Region Laterality Modality HEART Computed Tomogra phy Impressions 07/28/2023 6:54 AM AUTO SEAT COVER INSTALLER ?? 2+ HALT of the noncoronary cusp [...] conjunction with the services provided by the [facility] ([facility]). CLINICAL HISTORY: ??Cardiac over-read. FINDINGS/IMPRESSION: ??No pathologic adenopathy in the [id number]. No hiatus hernia. No significant finding in [...] [email or web address] SDS/sp / Narrative 07/28/2023 6:54 AM AUTO SEAT COVER INSTALLER Results are automatically released to your [employer] ([email or web address]) account once available, in compliance with federal [...] for HALT. SCAN QUALITY: ??Good. Rehan Alarcon INTERNATIONAL MARKETING COORDINATOR CT * (ABNORMAL) PLATELET ESTIMATE (07/27/2023 11:41 AM AUTO SEAT COVER INSTALLER) PLATELET ESTIMATE Decreased (A) Adequate, No estimate 07/27/2023 12:44 PM [facility] Blood BLOOD SPECIMEN / Unknown Venipuncture / Unknown 07/27/2023 11:41 AM AUTO SEAT COVER INSTALLER 07/27/2023 11:48 AM AUTO SEAT COVER INSTALLER Narrative [facility] - 07/27/2023 12:44 PM AUTO SEAT COVER INSTALLER This procedure was originally ordered at [facility]. Rehan Alarcon NP HEMATOLOGY [facility] [address] [place] [address], * (ABNORMAL) CBC W PLT NO DIFF (07/27/2023 11:41 AM AUTO SEAT COVER INSTALLER) Pathologist [facility] WHITE BLOOD COUNT 7.7 4.5 - 11.0 thou/cu mm 07/27/2023 12:44 PM [facility] TRAL LABORAT[facility] RED BLOOD COUNT 4.15 4.00 - 5.20 mil/cu mm 07/27/2023 12:44 PM [facility] HEMOGLOBIN 12.7 12.0 - 16.0 g/dL 07/27/2023 12:44 PM [facility] HEMATOCRIT 40.9 33.0 - 51.0 % 07/27/2023 12:44 PM [facility] MCV 99 80 - 100 [...] - 440 thou/cu mm 07/27/2023 12:44 PM [facility] MPV 11.6(H) 6.5 - 11.0 fL 07/27/2023 12:44 PM [facility] NRBC 0.0 % 07/27/2023 12:44 PM [facility] ABS NRBC 0.0 thou /cu mm 07/27/2023 12:44 PM [facility] Blood BLOOD SPECIMEN / Unknown Venipuncture / Unknown 07/27/2023 11:41 AM AUTO SEAT COVER INSTALLER 07/27/2023 11:48 AM AUTO SEAT COVER INSTALLER [facility] LABORATORY - 07/27/2023 12:44 PM AUTO SEAT COVER INSTALLER This procedure was originally ordered at [facility]. Rehan Alarcon NP HEMATOLOGY [facility] [address] [place] [address], * (ABNORMAL) BASIC METABOLIC PANEL (07/27/2023 11:41 AM AUTO SEAT COVER INSTALLER) SODIUM 139 136 - 145 mmol/L 07/27/2023 12:20 PM [facility] POTASSIUM 4.2 3.5 - 5.1 mmol/L 07/27/2023 12:20 PM [facility] CHLORIDE 102 98 - 107 mmol/L 07/27/2023 12:20 PM [facility] CO2,TOTAL 28 22 - 29 [...] 0.50 - 0.90 mg/dL 07/27/2023 12:20 PM AUTO SEAT COVER INSTALLER [facility] TRAL LABORATORY BUN/CREAT RATIO 26(H) 10 - 20 12:20 PM AUTO SEAT COVER INSTALLER [facility] TRAL LABORATORY eGFR 45(L) >90 mL/min/1.7 [...] Unknown Venipuncture / Unknown 07/27/2023 11:41 AM AUTO SEAT COVER INSTALLER 07/27/2023 11:48 AM AUTO SEAT COVER INSTALLER Rehan Alarcon NP CHEMISTRY Performing Organization Address City/State/[facility] Co de Phone Number [facility] [address] [address], * XR DXA BONE DENSITY 2 SITES AXIAL (02/02/2018 3:00 PM CDT) Anatomical Region Laterality Modality Spine, HIPS, HIPL, HIPR Other 02/02/2018 3:41 PM CDT Narrative 02/02/2018 3:44 PM CDT EXAM: XR DXA BONE DENSITY 2 SITES AXIAL INDICATION: Disorder of bone. ??Osteopenia. ??Postmenopausal. TECHNIQUE: Standardized bone density measurements were obtained using the [employer]spatial/[employer] bone densitometry system. COMPARISON: None. FINDINGS: SPINE: [...] bone density measurements were obtained using the [employer] bone densitometry system. COMPARISON: None. FINDINGS: SPINE: [...] Documents on File Type Date Recorded Patient Tanner Rotary Drum Continuous Process Expl anation POLST 04/29/2021 POLST 02/02/2017 1:11 [...] Code Status Discussion: Reviewed Preferences Care Teams Punch Finisher Relationship Specialty Start Date End Date Kyle Healy MD [address] [place] [address] PCP - General Family Practice 07/14/23 Swapnil Henley MD Rheumatology 12/20/12 Marlys Woodruff, RD [address] [place] [address] Registered Dietitian Applied Marine Physics Professor 07/05/18 Funmi Medina, ANGEL [address] [place] [address] Occupational Therapy 05/11/23 Mary Carpio Cardiology - Interventional 01/12/18 DR. Luo Dentistry - General 01/12/18
--- OUTSIDE RECORDS SUMMARY | 2023-10-26 17:56 | XMS_ITS | Encounter Summary ---
Author Name Unknown Organization [facility] Address [address] [place] [address] Care Team Providers Care Mold Making Plastics Sheets Supervisor Name Role Phone Basilio Healy MD Primary Care Provider [phone] Encounter Details Date Type Department Care Team (Latest Contact Info) Description 09/02/2023 Orders Only HIM DEPARTMENT ProviderWendy [place] [address] Social History Tobacco Use Types Packs/Day Years [...] Appointment [facility] Pul[facility] [address] [place] [address] 10/28/2023 1:45 PM CDT Office Visit Specialty Center [facility] Pulmonary Medicine [address] [place] [address] Shara Mitchell MD [address] [facility] [address] [place] [address] 12/13/2023 1:00 PM CDT Appointment [facility] [address] [place] [address] Man Sánchez MD [facility] [place] [address] documented as of this encounter Procedures Procedure Name Priority Date/Time Associated Diagnosis Comments LABORATORY REPORT 09/02/2023 documented in this encounter Results * LABORATORY REPORT (09/02/2023) Interface Provider MD DUMMY/OTHER/AR documented in this encounter Visit Diagnoses Not on filedocumented in this encounter Care Teams Mold Making Plastics Sheets Supervisor Relationship Specialty Start Date End Date Basilio Healy MD [facility] [address] [place] [address] PCP - General Family Practice 10/28/22 documented as of this encounter
--- OUTSIDE RECORDS SUMMARY | 2023-10-26 17:56 | XMS_ITS | Encounter Summary ---
Author Name Unknown Organization [facility] Address [address] [place] [address] Care Team Providers Care Zone Maintenance Technician Name Role Phone Basilio Healy MD Primary Care Provider [phone] Encounter Details Date Type Department Care Team (Late st Contact Info) Description 08/20/2023 Telephone Specialty Center 39[address] Pulmonary Medicine [address] [place], [place] [phone] Shara Mitchell MD [address] [facility] [address] [place], [place] [phone] Social History Tobacco Use Types Packs/Day Years [...] make a CT appointment before her follow-up TRICAL WORKER * Yessenia Olivarez - 08/20/2023 4:00 PM [...] this imaging with us before her appt? TRICAL WORKER documented in this encounter Plan of Treatment Upcoming Encounters Date Type Department Care Team (Late st Contact Info) Description 10/28/2023 12:30 PM CDT Appointment Specialty Center [facility] Pulmonary Lab [address] [place] [address] 10/28/2023 1:45 PM CDT Office Visit Specialty Center [address] Pulmonary Medicine [address] [place] [address] Shara Mitchell MD [address] [facility] [address] [place] [address] 12/13/2023 1:00 PM CDT Appointment [facility] [address] [place], [place] [phone] Man Sánchez MD [address] [place] [address] documented as of this encounter Visit Diagnoses Not on filedocumented in this encounter Care Teams Zone Maintenance Technician Relationship Specialty Start Date End Date Basilio Healy MD [facility] [address] [place] [address] PCP - General Family Practice 10/28/22 documented as of this encounter
--- OUTSIDE RECORDS SUMMARY | 2023-10-26 17:56 | XMS_ITS | Encounter Summary ---
Author Name Unknown Organization [facility] Address [address] [place] [address] Care Team Providers Care Senior Erp Consultant Name Role Phone Basilio Healy MD Primary Care Provider [phone] Reason for Visit * Reason Comments Refill Encounter Details Date Type Department Care Team (Late Contact Info) Description 02/06/2016 Refill [place] [address] [place] [address]. [place], [place] [address] Swapnil Henley MD [address] [place] [address] Refill Social History Tobacco Use Types Packs/Day Years Used Date Smoking Tobacco: Never Assessed Sex and Gender Information Value Date Recorded Sex Assigned at Not on file Gender Identity Not on file Sexual Orientation Not on file documented as of this encounter Plan of Treatment Upcoming Encounters Date Type Department Care Team (Late Contact Info) Description 10/28/2023 12:30 PM CDT Appointment [facility]ty [facility] [address] Pul[address] Lab [address] [place] [address] 10/28/2023 1:45 PM CDT Office Visit Specialty Center 3931 Pulmonary Medicine [address] [place] [address] Shara Mitchell MD [address] [facility] [address] [place] [address] 12/13/2023 1:00 PM CDT Appointment [facility] [address] [place] [address] Man Sánchez MD [address] [place] [address] documented as of this encounter Visit Diagnoses Not on filedocumented in this encounter Care Teams Senior Erp Consultant Relationship Specialty Start Date End Date Basilio Healy MD [facility] [address] [place] [address] PCP - General Family Practice 10/28/22 documented as of this encounter
--- OUTSIDE RECORDS SUMMARY | 2023-10-26 17:56 | XMS_ITS ---
Author Name Unknown Organization [facility] Address [address] [place] [address] Care Team Providers Care Custom Framing Specialist Name Role Phone Unavailable Unavailable Unavailable Surgery Details Not on file Complications Check Surgery Details section. Procedure Estimated Blood Loss Check Surgery Details section. Procedure Findings Check Surgery Details section. Procedure Specimens Taken Check Surgery Details section.
== END 2023-10-21 10:25 | disposition home or self-care (01) ==
LOC: AMB 10-26 17:53
PROVIDERS: PCP Family Medicine; Visit Provider Student in an Organized Health Care Education/Training Program
DX: M54.50 Low back pain, unspecified (principal); R53.1 Weakness
CPT/HCPCS: A0425; A0427

== ENCOUNTER 2023-10-21 11:00 | Inpatient (IN) | payer MEDICARE, OTHER, SELFPAY ==
[2023-10-21] VITALS (11 sets, daily range): BP systolic 128–188; BP diastolic 49–75; PULSE 78–94; RESP 16–19; TEMP 37–37.7; O2SAT 92–96; BMI 33.1; BMI 33.6
--- NOTE | 2023-10-21 11:08 | ED_ITS ---
HPI - General Adult General Date Seen: 10/21/23 Chief complaint: Back Injury/Pain Stated complaint: back pain Time Seen by Provider: 10/21/23 11:06 History of Present Illness HPI narrative: 78-year-old female with a history of sciatica, paroxysmal AFib (apixaban), history of 2 previous PEs in the distant past, lumbar fusion, TAVR (repair done in May 2023, complicated by pseudoaneurysm, also repair May 2023, femoral hematoma), rheumatoid arthritis, chronic pain, fibromyalgia, hypertension, coronary disease with NSTEMI, COPD, bronchiectasis, depression/anxiety, colon polyps, chronic kidney disease, anemia Was in the ER 10/07 for sciatica. Had been progressing for couple of weeks. Had been using Vicodin at home. Daughters expressed concern that she was relying too much on pain meds. She had a lumbar spine CT-no new bleeding. CT L spine Impression: 1. No acute osseous injury within the lumbar spine. 2. Postsurgical change of the anterior and posterior fusion at L4-5. 3. Prior posterior decompression at L2, L3 and L4. 4. At L1-2, [id number] spinal canal and left neural foraminal narrowing. 5. At L5-S1, moderate to severe right and mild left neural foraminal stenosis. CT abd pelvis IMPRESSION: 1. No acute abdominopelvic pathology. No retroperitoneal hematoma or hemoperitoneum on today`s examination. 2. Coronary arterial calcifications. Advise correlation with ASCVD evaluation. She was prescribed a 5 day burst of prednisone after her visit to the ER to try to treat her bulging disc. She completed that, with no change in her symptoms. Had follow-up contact with Dr. Healy, PCP. He ordered home physical therapy. She started that this week but has noticed any improvement in her strength. Patient notes that she really has been having trouble with low back pain and right leg radiating pain since last May (around the same time she had her TAVR, complicating hematoma and other problems). It has been ongoing for her since then. It sounds like it has been getting worse over time. Because the right leg is so painful and weak she has been switched from walking with a cane to walking with a walker. She has noted progressively worse trouble walking worse she point where she is leaning on her elbows on the walker. She also has trouble with balance. She has not fallen but she has lot of trouble getting around. She says that she actually had a month or 2 stay in a rehab facility starting in May after she had her TAVR but she has now been back in her independent living apartment. It sounds like she has been slowly worsening over time. She has gotten so weak that for the past couple of days she really has not been able to get into the kitchen to fix herself any food. She says she has had a little bit of fruit to eat. Her daughter came to check on her this morning and commented that she could not believe her mother had gotten like this and wondered how she got like this. The patient also says this morning she was just feeling so weak that she could get out of bed. She was incontinent of urine in the bed because she could not get out. She recalls that she had another episode of urinary (and stool) incontinence last fall because she was so weak and her back was hurting. This was her 1st episode of incontinence in the recent weeks. She is not having any fever. She does have a lot of back pain. No anterior abdominal pain. No other than incontinence no other definite urinary symptoms. No fevers. She has been taking her meds lately, including her Eliquis. She uses hydrocodone for pain. Her doctors been trying to get her to wean off that. He prescribed 56 tablets for a month long supply and she filled that on September 26. She has used 52 of the tablets and used her fifty-third tablet this morning. She tried to call her doctor's office to arrange a med refill this morning. However her daughter insisted that she come to the hospital because she was getting so weak. Her daughter was notable transfer her by private car. The patient apparently does have a medical transport system available to her. She called that they were not available today. Therefore they called the ambulance. The patient also notes that she still has swelling of her right abdominal pannus which is apparently a residual from a hematoma after her TAVR in May. It is not new or enlarging. She also has rheumatoid arthritis. She says she was diagnosed with bronchiectasis and chronic lung disease through the [facility] last year. She says she is not having any trouble breathing and has not used a nebulizer in months. Related Data Home Medications Medication Instructions Recorded Confirmed Lactobacillus acidophilus 0.5 mg 1,000 mmu cells PO DAILY 12/22/21 10/04/23 (100 million cell) tablet folic acid 1 mg tablet 3 mg PO DAILY 12/22/21 10/04/23 ascorbic acid (vitamin C) 500 mg 1 g PO DAILY 01/16/22 10/04/23 tablet cholecalciferol (vitamin D3) 50 50 mcg PO DAILY 01/16/22 10/04/23 mcg (2,000 unit) capsule multivitamin 1 tab PO QAM 01/16/22 10/04/23 methotrexate sodium 2.5 mg tablet 17.5 mg PO 08/24/23 10/04/23 prednisone 10 mg tablet 10 mg PO DAILY 08/24/23 10/04/23 Previous Rx's Medication Instructions Recorded valganciclovir 450 mg tablet See Rx Instructions .Route 02/24/23 .COMPLEX #90 tabs apixaban 5 mg tablet (Eliquis) 2.5 mg (1/2 x 5 mg) PO BID #90 tabs 08/24/23 furosemide 40 mg tablet 40 mg PO DAILY #90 tabs 08/24/23 metoprolol succinate 25 mg 25 mg PO BID #180 tabs 08/24/23 tablet,extended release 24 hr paroxetine HCl 20 mg tablet 20 mg PO DAILY #90 tabs 08/24/23 rosuvastatin 5 mg tablet See Rx Instructions .Route 08/24/23 .COMPLEX #90 tabs ferrous gluconate 324 mg (37.5 mg 324 mg PO DAILY #90 tabs 08/27/23 iron) tablet hydrocodone 5 mg-acetaminophen 325 1 tab PO Q6H PRN pain #56 tabs 09/27/23 mg tablet Allergies Allergy/AdvReac Type Severity Reaction Status Date / Time NSAIDS (Non-Steroidal Allergy Severe GI bleed Verified 10/21/23 11:08 Anti-Inflamma terbinafine Allergy Intermediate Headache Verified 10/21/23 11:08 levofloxacin AdvReac Severe tendon Verified 10/21/23 11:08 rupture [facility] Medical History Paroxysmal atrial fibrillation ?I48.0 - Paroxysmal atrial fibrillation (ICD-10) Pleural effusion ?J90 - Pleural effusion, not elsewhere classified (ICD-10) Chronic wound ?T14.8XXA - Other injury of unspecified body region, initial encounter (ICD- 10) History of kidney stones ?Z87.442 - Personal history of urinary calculi (ICD-10) POLST (Physician Orders for Life-Sustaining Treatment) ?Z78.9 - Other specified health status (ICD-10) Mitral annular calcification ?I05.9 - Rheumatic mitral valve disease, unspecified (ICD-10) Surgical History Status post transcatheter aortic valve replacement (TAVR) using bioprosthesis ?Z95.3 - Presence of xenogenic heart valve (ICD-10) S/P cataract extraction ?Z98.49 - Cataract extraction status, unspecified eye (ICD-10) S/P cholecystectomy ?Z90.49 - Acquired absence of other specified parts of digestive tract (ICD- 10) History of left nephrectomy ?Z90.5 - Acquired absence of kidney (ICD-10) History of lumbar fusion (04/2010) ?Z98.1 - Arthrodesis status (ICD-10) History of lithotripsy ?Z98.890 - Other specified postprocedural states (ICD-10) Family History Mother Breast cancer, Onset Age: 70 Sister Breast cancer, Onset Age: 35 Social History What is your current living situation?: I presently have a place to live Problems where you live: no known problems Problems where you live details: na In the past 12 months, utilities in danger of being shut off: no In past 12 months, lack of transportation kept you from medical appts, meetings, work, or getting things needed for daily living: no Smoking Status: Never smoker Do you use any of these nicotine containing products: None Second hand tobacco smoke exposure: No How often do you have a drink containing alcohol: never How often do you have six or more drinks on one occasion: Never AUDIT-C Alcohol total score: 0 Non-prescribed substance use: denies use Caffeine: No How often does anyone, including family, friends and others, physically hurt you : never How often does anyone, including family, friends and others, insult or talk down to you: never How often does anyone, including family, friends and others, threaten you with harm: never How often does anyone, including family, friends and others, scream or curse at you: never Little interest or pleasure in doing things: more than half the days Feeling down, depressed, or hopeless: more than half the days service: No Exam Narrative: Exam Narrative: Constitutional: Appears well-developed and well-nourished. Alert. Conversant but somewhat anxious. She cycles rapidly between symptoms. However we are able to have a conversation I am able to get what I think is a cogent, chronological history. She has weakness and requires assistance to sit forward in the bed. Overall though, Non toxic. HENT: Head: Atraumatic. Nose: Nose normal. Mouth/Throat: Oral mucosa is clear and moist. no trismus. Pharynx normal. Tonsils symmetric. No tonsillar enlargement, erythema, or exudate. Eyes: Conjunctivae normal. EOM normal. Pupils equal, round, and reactive to light. No scleral icterus. Neck: Normal range of motion. Neck supple. No tracheal deviation present. No JVD Cardiovascular: Normal rate, regular rhythm. No gallop. No friction rub. Systolic murmur heard. Symmetric radial artery pulses Pulmonary/Chest: Effort normal. No stridor. No respiratory distress. Bilateral scattered rales and rhonchi. No rhonchi . No tenderness. Abdominal: Soft. Bowel sounds normal. Fairly large pannus, but No distension. She has prominence of the right lower pannus which she says is left over from her previous hematoma. She has a good dressing in place in her central lower abdomen which is apparently a chronic nonhealing wound on her abdominal wall. No active drainage. No surrounding erythema. No sign of infection. No other mass. No tenderness. No rebound. No guarding. Musculoskeletal: RUE: Normal range of motion. No tenderness. No deformity LUE: Normal range of motion. No tenderness. No deformity Pelvis is stable. No midline step-off of her lumbar spine. She does have tenderness across the low back more on the right side and right lumbar paraspinous muscles and right buttock than on the left RLE: Normal range of motion. No edema. No tenderness. No deformity LLE: Normal range of motion. No edema. No tenderness. No deformity Neurological: Alert and oriented to person, place, and time. Normal strength. CN II-VII intact. No sensory deficit. GCS eye subscore is 4. GCS verbal subscore is 5. GCS motor subscore is 6. Normal coordination Sensory: Normal light touch sensation bilaterally on the anteromedial thigh (L3), medial malleolus (L4), dorsal first web space (L5), lateral malleolus (S1). Strength: 5/5 strength hip flexors (L3) on the rig ht and left 5/5 strength in the quadriceps (L4) on t he right and left 5/5 strength in the tibialis anterior 5/5 strength in the EHL (L5) on the righ t and left 5/5 strength in the gastrocnemius (S1) o n the right and left 5/5 strength in the hamstring on the rig ht and left DTRs: symmetric in the patella (2/4) . Unable to elicit in her Achilles Positive straight leg on the right. Negative on the left Unable to assess gait due to back pain and overall weakness. Skin: Skin findings suggestive of tinea cruris affecting her groin more on the left leg on the right Skin is warm and dry. No rash noted. No pallor. Normal capillary refill. Psychiatric: Normal mood. Normal affect. Const: Vital Signs, click to edit/add: Vital Signs - 24 hr 10/21/23 11:08 10/21/23 12:05 10/21/23 12:06 Temperature 98.7 F Pulse Rate [Pulse Oximeter] 80 Respiratory Rate 18 Blood Pressure [Ri ght Upper Arm] 141/57 H 144/70 H 134/50 L Pulse Oximetry 96 Oxygen Delivery Me thod Room Air 10/21/23 12:07 10/21/23 12:12 Temperature Pulse Rate [Pulse Oximeter] 78 79 Respiratory Rate 18 19 Blood Pressure [Ri ght Upper Arm] 128/49 L 141/57 H Pulse Oximetry 95 95 Oxygen Delivery Me thod Room Air Room Air Course Vital Signs Vital signs: Initial Vital Signs Temperature 98.7 F 10/21/23 11:08 Temperature Source Temporal Artery Scan 10/21/23 11:08 Pulse Rate 80 10/21/23 11:08 Respiratory Rate 18 10/21/23 11:08 Blood Pressure 141/57 H 10/21/23 11:08 Blood Pressure Mean 85 10/21/23 11:08 Blood Pressure Position Semi-Fowlers 10/21/23 11:08 Pulse Oximetry 96 10/21/23 11:08 Oxygen Delivery Method Room Air 10/21/23 11:08 Vital Signs Temperature 98.7 F 10/21/23 11:08 Pulse Rate 80 10/21/23 11:08 Respiratory Rate 18 10/21/23 11:08 Blood Pressure 141/57 H 10/21/23 11:08 Pulse Oximetry 96 10/21/23 11:08 Oxygen Delivery Method Room Air 10/21/23 11:08 Temperature 98.7 F 10/21/23 11:08 Pulse Rate 79 10/21/23 12:12 Respiratory Rate 19 10/21/23 12:12 Blood Pressure 141/57 H 10/21/23 12:12 Pulse Oximetry 95 10/21/23 12:12 Oxygen Delivery Method Room Air 10/21/23 12:12 Medications Administered Medications: Discontinued Medications Generic Name Dose Route Start Last Admin Trade Name Freq PRN Reason Stop Dose Admin Sodium Chloride 1,000 mls @ 1,000 mls/hr 10/21/23 12:15 10/21/23 12:30 0.9 % Sodium Chloride 1000 Ml IV 10/21/23 13:14 1,000 mls/hr .Q1H MICHELLE Administration Medical Decision Making MDM Narrative Medical decision making narrative: 78-year-old female with a complex past history brought to the ER today by EMS from her independent living apartment. She was brought in basically for generalized weakness, inability to care for herself at home. She does have a history of low back pain ongoing for the past several months and right leg pain and radicular symptoms. Based on my exam she does have symptoms that could be consistent with right lower extremity sciatica. She had a lumbar spine CT done last week in the ER that did show evidence for moderate to severe stenosis of the L5-S1 right neural foramen. Also mild left sided stenosis at that level and other mild to moderate fine. The patient's clinical symptoms could be consistent with a S1 radiculopathy. Although she was incontinent of urine this morning in bed, she is able to control her urine here in the ER. I do not think this represents evolving cauda equina syndrome. I think the urinary incontinence had to do with the fact that she was too weak to get out of bed and therefore was not able to urinate on the toilet She does have a chronic pain syndrome which is at least partly due to her right lower extremity sciatica but also other aches and pains due to RA and fibromyalgia. She is chronically on hydrocodone for the past few months. Her primary care provider is trying to wean her down. He had previously been prescribing 60 tablets per month. He gave her his prescription for 56 tablets this month. She says she has used almost all of them and only has 3 left (52 tablets in the 1st 25 days of the month) so has tried to call her doctor to get that prescription refilled. She is worried that she might run out of pain meds or the weekend if she does not get a refill today or tomorrow. In addition to her right leg weakness she does has generally home weakness all over. She has been using a walker to get around for the past several months but has gotten so weak that she really has to bend on her elbows just to get up and move and she has not really any been able to get up and move for the past few days. This would probably suggest a component of overall physical deconditioning contributing to her weakness. We did evaluate for possible metabolic or infectious causes of worsening weakness. Labs show normal white count, normal hemoglobin. She is not febrile. She is immunosuppressed because she was recently on steroids and she is on methotrexate for her RA. However no clear evidence for infection at this time. Blood pressure stable. No tachycardia. Venous lactic normal. White count normal. No clear serves or sepsis physiology here. UA is abnormal showing 50- 100 WBC, positive leukocyte esterase, negative nitrite. No squamous epithelial cells. Will treat with antibiotics for possible UTI. Sodium and electrolytes are normal. She does have elevated BUN at 41 which is similar to her previous BUNs over the recent months. However could represent possible pre renal/dehydration. IV fluids administered here in the ER. She does say that she has chronic bronchiectasis and chronic lung disease. She is not short of breath and has not used her nebulizers and month. However lung exam did reveal scattered rales and rhonchi. Suspect this is due to her chronic lung disease but we did do screening COVID/influenza PCR and it is negative Screening EKG shows sinus rhythm. No AFib or arrhythmia. She has voltage criteria for LVH with resulting strain pattern. Likely due to her previous aortic stenosis. No signs of any acute changes from a cardiac standpoint . no chest pain or shortness of breath. 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 She says this is been present since May. No recent expansion. Hemoglobin normal. She is anticoagulated on Eliquis (history of AFib, history of PE) Discussed this patient's case with her daughter and with our hospitalist, Dr. Vasquez. Plan will be to admit for observation, physical therapy consult, social work consult, and anticipate she may require higher level of care for rehab. Lab Data Labs: Lab Results 10/21/23 10/21/23 10/21/23 Range/Units 12:19 13:30 14:15 WBC 6.09 (4.50-11.00) K/uL RBC 3.68 L (4.00-5.20) m/uL Hgb 12.2 (12.0-16.0) gm/dL Hct 38.9 (33.0-51.0) % MCV 106 H (80-100) fL MCH 33 (26-34) pg MCHC 31 L (32-36) gm/dL RDW Coeff of Navneet 17.4 H (11.5-15.5) % Plt Count 68 L (140-440) K/uL Neut % (Auto) 79.4 H (42.0-72.0) % Lymph % (Auto) 13.1 L (20-44) % [place] % (Auto) 4.9 (0.0-11.0) % Eos % (Auto) 1.8 (0.0-7.0) % Baso % (Auto) 0.3 (0.0-3.0) % Neut # (Auto) 4.80 (1.7-7.0) K/uL Lymph # (Auto) 0.80 L (0.90-2.90) K/uL [place] # (Auto) 0.30 (0.00-0.90) K/UL Eos # (Auto) 0.11 (0.00-0.50) K/uL Baso # (Auto) 0.02 (0.00-0.30) K/uL Abs Immat Gran (auto) 0.03 (0.00-0.30) K/uL Imm/Tot Granulo (auto) 0.5 % Sodium 138 (135-149) mmol/L Potassium 4.1 (3.6-5.1) mmol/L Chloride 105 (96-114) mmol/L Carbon Dioxide 32 (20-32) mmol/L Anion Gap 1 L (7-15) mEq/L BUN 41 H (7-30) mg/dL Creatinine 1.0 (0.5-1.5) mg/dL Estimated Creat Clear 39.59 Estimated GFR 58 ml/min Glucose 102 (60-115) mg/dL Lactate 1.2 (0.5-1.9) mmol/L Calcium 8.3 L (8.4-10.6) mg/dL Total Bilirubin 0.9 (0.1-1.5) mg/dL AST 45 H (12-35) U/L ALT 32 (4-35) U/L Alkaline Phosphatase 58 (40-150) U/L Troponin I 0.04 (0.01-0.04) ng/mL Total Protein 5.6 L (6.0-8.3) g/dL Albumin 3.2 L (3.3-5.0) g/dL Urine Color Yellow (Yellow) Urine Appearance Cloudy A (Clear) Urine pH 7.0 (5.0-8.5) Ur Specific [place] 1.020 (1.000-1.030) Urine Protein Trace A (Negative) Urine Glucose (UA) Negative (Negative) Urine Ketones Negative (Negative) Urine Blood 2+ A (Negative) Urine Nitrite Negative (Negative) Urine Bilirubin Negative (Negative) Urine Urobilinogen 0.2 (0.2-1.0) Ur Leukocyte Esterase 1+ A (Negative) Urine RBC 5-10 A (0-2) Urine WBC 50-100 A (0-5) Ur Squamous Epith Cells None (None-Few) Urine Bacteria Many A (None) SARS-CoV-2 (PCR) Negative SARS-CoV-2 (Negative) Influenza Type A (PCR) Negative PCR FLU A (Negative) Influenza Type B (PCR) Negative PCR FLU B (Negative) RSV (PCR) Negative PCR RSV (Negative) ECG Data Attestation: I personally reviewed and interpreted this ECG as follows: Interpretation: Normal sinus rhythm Rate: 78 NV: 162. No delta wave QRS axis: Normal axis. Voltage criteria for LVH. ST segment/T wave: Tall T-waves in lead V2 and subtle ST elevation in V1 consistent with LVH and strain pattern. No STEMI. No ST segment depression. QTc: 446 Discharge Plan Discharge Clinical Impression: Low back pain, Sciatica, Generalized weakness, Acute UTI Prescriptions: No Action cholecalciferol (vitamin D3) 50 mcg (2,000 unit) capsule 50 mcg PO DAILY multivitamin Tablet 1 tab PO QAM ascorbic acid (vitamin C) 500 mg tablet 1 g PO DAILY methotrexate sodium 2.5 mg tablet 17.5 mg PO prednisone 10 mg tablet 10 mg PO DAILY rosuvastatin 5 mg tablet See Rx Instructions .ROUTE .COMPLEX Qty: 90 3RF Dose Instruction: TAKE 1 TABLET BY MOUTH DAILY Rx Instructions: TAKE 1 TABLET BY MOUTH DAILY metoprolol succinate 25 mg tablet extended release 24 hr 25 mg PO BID Qty: 180 3RF furosemide 40 mg tablet 40 mg PO DAILY Qty: 90 3RF Eliquis 5 mg tablet 2.5 mg PO BID Qty: 90 3RF paroxetine HCl 20 mg tablet 20 mg PO DAILY Qty: 90 3RF folic acid 1 mg tablet 3 mg PO DAILY Lactobacillus acidophilus 0.5 mg (100 million cell) tablet 1,000 mmu cells PO DAILY valganciclovir 450 mg tablet See Rx Instructions .ROUTE .COMPLEX Qty: 90 3RF Dose Instruction: TAKE 1 TABLET BY MOUTH DAILY Rx Instructions: TAKE 1 TABLET BY MOUTH DAILY ferrous gluconate 324 mg (37.5 mg iron) tablet 324 mg PO DAILY Qty: 90 3RF hydrocodone-acetaminophen 5-325 mg tablet 1 tab PO Q6H PRN (Reason: pain) Qty: 56 0RF Follow Up/Referrals: Kyle Healy MD [Primary Care Provider] -
[2023-10-21 12:29] LABS: Lactate* 1.2 mmol/L (0.5-1.9)
[2023-10-21] MEDS: 0.9 % SODIUM CHLORIDE 1000 ml 1,000 ML IV (12:30)
[2023-10-21 12:33] LABS: Basophils Absolute Auto 0.02 K/uL (0.00-0.30); Basophils Percent Auto 0.3 % (0.0-3.0); Eosinophils Absolute Auto 0.11 K/uL (0.00-0.50); Eosinophils Percent Auto 1.8 % (0.0-7.0); Hematocrit 38.9 % (33.0-51.0); Hemoglobin* 12.2 gm/dL (12.0-16.0); Immature Granulocytes Abs Auto 0.03 K/uL (0.00-0.30); Immature Granulocytes Pct Auto 0.5 %; Lymphocytes Percent Auto 13.1 % (20-44); Mean Corpuscular HGB Conc 31 gm/dL (32-36); Mean Corpuscular Hemoglobin 33 pg (26-34); Mean Corpuscular Volume 106 fL (80-100); Monocytes Percent Auto 4.9 % (0.0-11.0); Neutrophils Percent Auto 79.4 % (42.0-72.0); Platelet Count* 68 K/uL (140-440); RDW Coefficient of Variation % 17.4 % (11.5-15.5); Red Blood Count 3.68 m/uL (4.00-5.20); White Blood Count* 6.09 K/uL (4.50-11.00)
[2023-10-21 12:34] LABS: Slide Review Reflex No
[2023-10-21 12:44] LABS: Albumin* 3.2 g/dL (3.3-5.0); Chloride* 105 mmol/L (96-114); Potassium* 4.1 mmol/L (3.6-5.1); Sodium* 138 mmol/L (135-149)
[2023-10-21 12:47] LABS: Alanine Aminotransferase* 32 U/L (4-35); Alkaline Phosphatase* 58 U/L (40-150); Anion Gap 1 mEq/L (7-15); Aspartate Amino Transferase* 45 U/L (12-35); Bilirubin Total* 0.9 mg/dL (0.1-1.5); Blood Urea Nitrogen* 41 mg/dL (7-30); Carbon Dioxide* 32 mmol/L (20-32); Est. Creatinine Clearance* 39.59; Estimated Glomerular Filt Rate 58 ml/min; Glucose* 102 mg/dL (60-115); Total Protein* 5.6 g/dL (6.0-8.3)
[2023-10-21 12:48] LABS: Calcium* 8.3 mg/dL (8.4-10.6)
[2023-10-21 12:59] LABS: Troponin I* 0.04 ng/mL (0.01-0.04)
[2023-10-21 14:25] LABS: Appearance Urine Cloudy (Clear); Bilirubin Urine Negative (Negative); Blood Urine 2+ (Negative); Color Urine Yellow (Yellow); Glucose Urine Negative (Negative); Ketones Urine Negative (Negative); Leukocyte Esterase Urine 1+ (Negative); Nitrite Urine Negative (Negative); Protein Urine Trace (Negative); Urobilinogen Urine 0.2 (0.2-1.0)
[2023-10-21 14:28] LABS: PCR FLU A Negative PCR FLU A (Negative); PCR FLU B Negative PCR FLU B (Negative); PCR RSV Negative PCR RSV (Negative); SARS PCR* Negative SARS-CoV-2 (Negative)
[2023-10-21 14:57] LABS: Bacteria Urine Many; WBC Urine 50-100 (0-5)
[2023-10-21] MEDS: cefTRIAXone 1 GM in 0.9 % SODIUM CHLORIDE Mini-bag 100 ML IVPB (15:32)
[2023-10-21] MEDS: HYDROCODONE-ACETAMIN 5-325 MG 1 TAB PO (15:40)
--- NOTE | 2023-10-21 15:49 | ED.NURSE ---
Pt report given to juan daniel VIDES. Pt to room 245
--- NOTE | 2023-10-21 15:49 | PM.IMHP1 ---
Hospitalist- H&P: MARIO History of Present Illness Date Seen: 10/21/23 Chief complaint: back pain Narrative: Tanner James is a 78 year old female with chronic weakness, rheumatoid arthritis, aortic stenosis status post TAVR, COPD, obesity, fibromyalgia, anxiety, stage 3 chronic kidney disease, history of pulmonary embolism, left nephrectomy presents with acute on chronic weakness, loss of appetite, insomnia. Patient has had multiple hospital admissions over the last 6 months: April 2023 she was hospitalized here for weakness. At that time there was concern of multifactorial weakness including some heart failure with severe aortic stenosis, COPD, UTI, type 2 non STEMI. She was admitted for a week, discharge to home, readmitted 2 days later with ongoing weakness and fever. She was transferred to [facility] because of her fever and heart disease. April 2023 hospitalized at [facility] after transfer from [facility] for fever and cardiac evaluation. Fever resolved spontaneously. She was deemed an appropriate candidate for TAVR. [facility]charge to [facility] facility for about 1 month. 06/16/2023 hospitalized at [facility] for TAVR. Procedure went well. She reports resolution of her cardio-respiratory symptoms after TAVR. 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 Readmitted on June 21 for management of this. The hematoma has resolved but she still reporting pain in the area of her right groin, right abdomen, right thigh. Repeat CT imaging on October 09 2023 showed resolution of the hematoma. 10/09/2023 she was seen in our emergency department with 2 weeks of right low back pain radiating into her leg and foot. CT at that time showed moderate to severe right foraminal stenosis at L5-S1. Previous fusion at L4-5 and posterior decompression at L2-4. CT abdomen and pelvis showed no residual hematoma. She was given a course of prednisone for treatment of possible sciatica. She tells me now that it might have helped a little bit but she is unsure of this. She has been taking hydrocodone acetaminophen as needed for pain, she has had approximately 53 tablets in 24 days. She was prescribed physical therapy which is of uncertain benefit. The course of therapy has been completed. She reports no fever. She reports her breathing is better since her TAVR. She is having no chest pain. She reports a very poor appetite. She reports very poor sleep. She is having trouble falling asleep. She reports profound weakness. For at least 2 days she has been unable to get out of bed and go to the bathroom. She has been incontinent of urine in bed. She denies urinary frequency urgency or dysuria. Previous urinary tract infection in April grew Citrobacter resistant to cefazolin but susceptible to ceftriaxone. She reports that she is having generalized pain. She reports in ?hurting all over?. She also reports having pain in her low back radiating down her posterior lateral thigh and calf to her foot. She is not having any numbness that she is aware of. Her incontinence of urine was due to inability to get out of bed rather than inability to control her urine at all. 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) ?H30.92 - Unspecified chorioretinal inflammation, left eye (ICD-10) ?B25.9 - Cytomegaloviral disease, unspecified (ICD-10) 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 - Aneurysm of artery of lower extremity (ICD-10) Obesity (BMI 30.0-34.9) ?E66.9 - Obesity, unspecified (ICD-10) Alcohol use disorder ?F10.90 - Alcohol use, unspecified, uncomplicated (ICD-10) Pulmonary embolism ?I26.99 - Other pulmonary embolism without acute cor pulmonale (ICD-10) Gastrointestinal hemorrhage ?K92.2 - Gastrointestinal hemorrhage, unspecified (ICD-10) Aortic stenosis, severe ?I35.0 - Nonrheumatic aortic (valve) stenosis (ICD-10) Paroxysmal atrial fibrillation ?I48.0 - Paroxysmal atrial fibrillation (ICD-10) Pleural effusion ?J90 - Pleural effusion, not elsewhere classified (ICD-10) Chronic wound ?T14.8XXA - Other injury of unspecified body region, initial encounter (ICD-10) History of kidney stones ?Z87.442 - Personal history of urinary calculi (ICD-10) POLST (Physician Orders for Life-Sustaining Treatment) ?Z78.9 - Other specified health status (ICD-10) Mitral annular calcification ?I05.9 - Rheumatic mitral valve disease, unspecified (ICD-10) Surgical History Status post transcatheter aortic valve replacement (TAVR) using bioprosthesis ?Z95.3 - Presence of xenogenic heart valve (ICD-10) S/P cataract extraction ?Z98.49 - Cataract extraction status, unspecified eye (ICD-10) S/P cholecystectomy ?Z90.49 - Acquired absence of other specified parts of digestive tract (ICD-10) History of left nephrectomy ?Z90.5 - Acquired absence of kidney (ICD-10) History of lumbar fusion (04/2010) ?Z98.1 - Arthrodesis status (ICD-10) History of lithotripsy ?Z98.890 - Other specified postprocedural states (ICD-10) Family History Mother Breast cancer, Onset Age: 70 Sister Breast cancer, Onset Age: 35 Social History (Updated 10/21/23 @ 16:20 by Alejandro Vasquez MD) Narrative: She has been living independently at [facility]. Struggling with providing self cares. Daughter found her in bed with incontinence today and brought her to the emergency department. Code status is DNR DNI. What is your current living situation?: I presently have a place to live Problems where you live: no known problems Problems where you live details: na In the past 12 months, utilities in danger of being shut off: no In past 12 months, lack of transportation kept you from medical appts, meetings, work, or getting things needed for daily living: no Smoking Status: Never smoker Do you use any of these nicotine containing products: None Second hand tobacco smoke exposure: No How often do you have a drink containing alcohol: never How often do you have six or more drinks on one occasion: Never AUDIT-C Alcohol total score: 0 Non-prescribed substance use: denies use Caffeine: No How often does anyone, including family, friends and others, physically hurt you: never How often does anyone, including family, friends and others, insult or talk down to you: never How often does anyone, including family, friends and others, threaten you with harm: never How often does anyone, including family, friends and others, scream or curse at you: never Little interest or pleasure in doing things: more than half the days Feeling down, depressed, or hopeless: more than half the days service: No Meds Home Medications and Allergies Home Medications Medication Instructions Recorded Confirmed Type Lactobacillus acidophilus 0.5 mg 1,000 mmu cells PO DAILY 12/22/21 10/04/23 History (100 million cell) tablet folic acid 1 mg tablet 3 mg PO DAILY 12/22/21 10/21/23 History ascorbic acid (vitamin C) 500 mg 1 g PO DAILY 01/16/22 10/04/23 History tablet cholecalciferol (vitamin D3) 50 50 mcg PO DAILY 01/16/22 10/04/23 History mcg (2,000 unit) capsule multivitamin 1 tab PO QAM 01/16/22 10/21/23 History methotrexate sodium 2.5 mg tablet 17.5 mg PO Q7D 08/24/23 10/21/23 History ferrous gluconate 324 mg (38 mg 324 mg PO DAILY 10/21/23 10/21/23 History iron) tablet prednisone 5 mg tablet 7.5 mg PO DAILY 10/21/23 10/21/23 History Allergies Allergy/AdvReac Type Severity Reaction Status Date / Time NSAIDS (Non-Steroidal Allergy Severe GI bleed Verified 10/21/23 11:08 Anti-Inflamma terbinafine Allergy Intermediate Headache Verified 10/21/23 11:08 levofloxacin AdvReac Severe tendon Verified 10/21/23 11:08 rupture Exam Narrative: Exam Narrative: She is alert and appears in no distress. She gives her own history. She has trouble recalling details of recent events but is mostly able to confirm her medications. She is oriented to her circumstances. Head is without apparent trauma. Eyes normal. Extraocular movements are full. No facial asymmetry. Oropharynx is normal. Neck is supple without mass or adenopathy. Respirations are clear to auscultation except for an occasional basilar crackle which improves with coughing. No wheezing. Good air exchange all lung solano. Inspection of the back is normal. Palpation shows generalized tenderness over her back. Cardiovascular: S1, S2, regular rate and rhythm. 1/6 systolic murmur. No gallop or rub. Abdomen is soft. Bowel sounds present. She has mild diffuse tenderness. Bandage in the ER for umbilicus covering a surgical puncture site that is oozing bloody fluid. No visible evidence of hematoma in the abdomen, right groin, right flank or thigh. No significant rash under her abdominal pannus. Extremities: Upper extremities normal. Lower extremities with some chronic venous stasis skin changes. No significant edema. She has mild discomfort with palpation over her entire lower extremities bilaterally. Strength testing is full and symmetric in hip flexion, knee flexion extension, ankle dorsiflexion plantar flexion bilaterally. Blue staining over her toenails on the right. Some peeling and scaling of the skin around her medial plantar surface consistent with fungal dermatitis. Const: Vital Signs, click to edit/add: Vital Signs - 24 hr 10/21/23 11:08 10/21/23 12:05 10/21/23 12:06 Temperature 98.7 F Pulse Rate [Pulse Oximeter] 80 Respiratory Rate 18 Blood Pressure [Ri ght Upper Arm] 141/57 H 144/70 H 134/50 L Pulse Oximetry 96 Oxygen Delivery Me thod Room Air 10/21/23 12:07 10/21/23 12:12 10/21/23 15:43 Temperature Pulse Rate [Pulse Oximeter] 78 79 88 Respiratory Rate 18 19 18 Blood Pressure [Ri ght Upper Arm] 128/49 L 141/57 H 161/57 H Pulse Oximetry 95 95 92 Oxygen Delivery Me thod Room Air Room Air Room Air Documenting provider has reviewed patient's vital signs: yes Hospitalist - H&P: Result Labs Labs: Short CBC 10/21/23 Range/Units 12:19 WBC 6.09 (4.50-11.00) K/uL Hgb 12.2 (12.0-16.0) gm/dL Hct 38.9 (33.0-51.0) % Plt Count 68 L (140-440) K/uL BMP 10/21/23 12:19 Sodium 138 Potassium 4.1 Chloride 105 Carbon Dioxide 32 BUN 41 H Creatinine 1.0 Glucose 102 Calcium 8.3 L Cardiac Enzymes 10/21/23 Range/Units 12:19 Troponin I 0.04 (0.01-0.04) ng/mL Liver Function 10/21/23 Range/Units 12:19 Total Bilirubin 0.9 (0.1-1.5) mg/dL AST 45 H (12-35) U/L ALT 32 (4-35) U/L Alkaline Phosphatase 58 (40-150) U/L Albumin 3.2 L (3.3-5.0) g/dL Urine 10/21/23 Range/Units 14:15 Urine Color Yellow (Yellow) Urine Appearance Cloudy A (Clear) Urine pH 7.0 (5.0-8.5) Ur Specific [place] 1.020 (1.000-1.030) Urine Protein Trace A (Negative) Urine Glucose (UA) Negative (Negative) Assessment and Plan Assessment and plan (1) Generalized weakness: Status: Acute (2) Acute UTI: Problem comment: Not definitely symptomatic. Will start empiric treatment because of immunocompromised status and history of left nephrectomy Status: Acute (3) Fibromyalgia: Problem comment: She is having generalized pain and generalized tenderness to palpation. Previous diagnosis of fibromyalgia. Going to start her on pregabalin. Reduce her paroxetine dose. Status: Acute (4) Sciatica associated with disorder of lumbar spine: Problem comment: Has moderate to severe neural foraminal narrowing on the right L5-S1. Not obviously having neurologic deficits from this but radicular pain is present Status: Acute (5) Chronic pain: Problem comment: She does have specific pain suggestive of sciatic on the right without obvious neurologic deficits. It appears fibromyalgia or generalized chronic pain is even more troublesome for her right now. Trial of Lyrica. Minimize opioids. Avoid NSAIDs. Status: Acute (6) Rheumatoid arthritis: Problem comment: She is back on methotrexate. Not obviously having inflammatory arthritis at this time Status: Acute (7) Hematoma: Problem comment: Right femoral triangle area. Associated retroperitoneal hemorrhage. June 21, 2023. Secondary to femoral puncture from TAVR. Repeat CT scan from October 09 2023 showed complete resolution. Status: Acute (8) Chronic kidney disease, stage 3a: Problem comment: History of left nephrectomy. Avoid renal toxic drugs such as NSAIDs Status: Chronic (9) Cognitive impairment: Problem comment: Patient reports some increased confusion and forgetfulness. I observe some confusion over recent events. Consider cognitive screening. Consider reducing opioid use. Status: Acute (10) Immunocompromised state due to drug therapy: Problem comment: On chronic methotrexate Status: Acute Plan Patient is admitted to the hospital for ongoing evaluation management of acute on chronic weakness, urinary tract infection, other constitutional symptoms including fatigue, malaise, anorexia. Anticipate possible need for [facility] facility rehab. Total Time Spent Total Time Spent: Total time spent today is 90 minutes, 60 minutes in coordination of care and discussing with patient and other providers ongoing management of weakness, pain, constitutional symptoms and disposition
--- NOTE | 2023-10-21 16:34 | PC.SOCIAL ---
Discharge planning: Called [facility] admissions and was informed they do currently have a [facility] bed that they maybe able to accept a pt to tomorrow or Wednesday if pt need a higher level of care. [employer]dy [employer] worker to follow up tomorrow morning.
[2023-10-21] MEDS: METOPROLOL SUCCINATE (XL) 25 MG TAB PO (22:01)
[2023-10-21] MEDS: ASCORBIC ACID 500 MG TABLET 1000 MG PO (22:02)
[2023-10-21] MEDS: APIXABAN 5 MG TABLET 2.5 MG PO (22:02)
[2023-10-21] MEDS: ROSUVASTATIN CALCIUM 10 MG TABLET 5 MG PO (22:02)
[2023-10-21] MEDS: SODIUM CHLORIDE 0.9 % (FLUSH) 10 ML SYRINGE 5 ML IVF (22:03)
[2023-10-21] MEDS: FERROUS SULFATE 325 MG TABLET PO (22:03)
[2023-10-21] MEDS: PARoxetine 20 MG TABLET 10 MG PO (22:03)
[2023-10-21] MEDS: PREGABALIN 50 MG CAPSULE PO (22:05)
[2023-10-21] MEDS: ACETAMINOPHEN 325 MG TABLET 650 MG PO (22:35)
[2023-10-22] VITALS (9 sets, daily range): BP systolic 128–155; BP diastolic 58–69; PULSE 78–90; RESP 16–20; TEMP 36.5–37.8; O2SAT 90–97
[2023-10-22] MEDS: OXYCODONE 5 MG TABLET 2.5 MG PO ×3 (00:32→20:57)
--- NOTE | 2023-10-22 07:05 | PC.NURSE ---
Pt alert and oriented x3 with some forgetfulness/confusion when tired. Pt had temp of 99.9 gave PRN Tylenol with relief. Pt reports 4/10 pain left buttock/siadic pain down to left leg, pain managed with PRN medications.?Pt reports ?I feel more perky now than before. I feel better.? Pt is up A1 with walker and gait belt. Pt?s midline abdominal is CDI. ?
[2023-10-22] MEDS: cefTRIAXone 1 GM in 0.9 % SODIUM CHLORIDE Mini-bag 100 ML IVPB ×2 (09:00→13:29)
[2023-10-22] MEDS: APIXABAN 5 MG TABLET 2.5 MG PO ×2 (09:03→20:41)
[2023-10-22] MEDS: FOLIC ACID 1 MG TABLET 3 MG PO (09:03)
[2023-10-22] MEDS: predniSONE 5 MG TABLET 7.5 MG PO (09:04)
[2023-10-22] MEDS: METOPROLOL SUCCINATE (XL) 25 MG TAB PO ×2 (09:04→20:41)
[2023-10-22] MEDS: FUROSEMIDE 40 MG TABLET PO (09:04)
[2023-10-22] MEDS: ACETAMINOPHEN 325 MG TABLET 650 MG PO (09:04)
[2023-10-22] MEDS: MULTIVITAMIN/MINERALS 1 TABLET 1 TAB PO (09:04)
[2023-10-22] MEDS: LACTOBACILLUS ACIDOPHILUS 1 TABLET 1 TAB PO (09:05)
--- NOTE | 2023-10-22 10:18 | PC.SOCIAL ---
Addendum entered by HAKAN Vickers 10/22/23 12:00: Received call back from Bell at [facility] stating they have a private room available for pt on Wednesday10/25/23 if ready for discharge. Nurse to complete nurse to nurse on Wednesday prior to discharge. Original Note: Discharge planning: Called pt's dtr regarding d/c plan. Dtr confirms she would like pt to go to [facility] for a short term rehab stay at discharge. Explained to dtr that this stay will likely be a private pay stay as pt does not currently meet criteria for Medicare coverage of [facility] rehab stay. Dtr states pt has gone to rehab from previous hospital stays and will most likely be concerns about paying privately. Dtr requested to be part of that conversation when appropriate and that pt access to funds to pay for a rehab stay if needed. Called and secure emailed information to [facility] for evaluation for rehab stay. mission worker to follow up as needed.
[2023-10-22] MEDS: PREGABALIN 50 MG CAPSULE PO ×2 (10:50→20:43)
[2023-10-22] MEDS: VALGANCICLOVIR 450 MG PO (10:50)
[2023-10-22] MEDS: SODIUM CHLORIDE 0.9 % (FLUSH) 10 ML SYRINGE 5 ML IVF ×2 (10:54→20:42)
--- NOTE | 2023-10-22 11:38 | P.IMPN_ITS ---
Progress Note: A&P Assessment and plan (1) Generalized weakness: Problem details: Acute on chronic Status: Acute (2) Acute UTI: Problem details: Not definitely symptomatic. Will start empiric treatment because of immunocompromised status and history of left nephrectomy. Currently with fever. Culture pending. Status: Acute (3) Fibromyalgia: Problem details: She is having generalized pain and generalized tenderness to palpation. Previous diagnosis of fibromyalgia. Start on pregabalin. Switch from paroxetine to duloxetine Status: Acute (4) Sciatica associated with disorder of lumbar spine: Problem details: Has moderate to severe neural foraminal narrowing on the right L5-S1. Not obviously having neurologic deficits from this but radicular pain is present. Status: Acute (5) Chronic pain: Problem details: She does have specific pain suggestive of sciatic on the right without obvious neurologic deficits. It appears fibromyalgia or generalized chronic pain is even more troublesome for her right now. Trial of pregabalin and duloxetine. Minimize opioids. Avoid NSAIDs. Status: Acute (6) Rheumatoid arthritis: Problem details: She is back on methotrexate. Not obviously having inflammatory arthritis at this time Status: Acute (7) Hematoma: Problem details: Right femoral triangle area. Associated retroperitoneal hemorrhage. June 21, 2023. Secondary to femoral puncture from TAVR. Repeat CT scan from October 09 2023 showed complete resolution. Status: Acute (8) Chronic kidney disease, stage 3a: Problem details: History of left nephrectomy. Avoid renal toxic drugs such as NSAIDs Status: Chronic (9) Cognitive impairment: Problem details: Patient reports some increased confusion and forgetfulness. I observe some confusion over recent events. [place] on 10/22/2023 is 23/30. Consider reducing opioid use. Status: Acute (10) Immunocompromised state due to drug therapy: Problem details: On chronic methotrexate 17.5 mg weekly and prednisone 7.5 mg daily Status: Acute (11) Frailty syndrome in geriatric patient: Problem details: Probably need detention facility for rehab prior to going home. PT and OT to evaluate Status: Inactive (12) Depression: Problem details: Switch from paroxetine to Cymbalta Status: Acute Plan Continue in hospital for IV antibiotics pending clinical course and culture, assessment by therapy, management of pain and disability and disposition planning with social security assessor Time Spent With Patient Total time spent: Total time spent today is 50 minutes, 40 minutes in coordination of care and discussing with patient and other providers ongoing evaluation management of disability, fever, UTI, pain, depression Subjective Date Seen: 10/22/23 Interval history: Tanner James is a 78 year old female with chronic weakness, rheumatoid arthritis, aortic stenosis status post TAVR in May 2023, COPD, obesity, fibromyalgia, anxiety, stage 3 chronic kidney disease, history of pulmonary embolism, left nephrectomy presents with acute on chronic weakness, loss of appetite, insomnia. Patient has had multiple hospital admissions over the last 6 months: April 2023 she was hospitalized here for weakness. At that time there was concern of multifactorial weakness including some heart failure with severe aortic stenosis, COPD, UTI, type 2 non STEMI. She was admitted for a week, discharge to home, readmitted 2 days later with ongoing weakness and fever. She was transferred to [facility] because of her fever and heart disease. April 2023 hospitalized at [facility] after transfer from [facility] for fever and cardiac evaluation. Fever resolved spontaneously. She was deemed an appropriate candidate for TAVR. Discharge to detention facility for about 1 month. 06/16/2023 hospitalized at [facility] for TAVR. Procedure went well. She reports resolution of her cardio-respiratory symptoms after TAVR. 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 Readmitted on June 21 for management of this. The hematoma has resolved but she still reporting pain in the area of her right groin, right abdomen, right thigh. Repeat CT imaging on October 09 2023 showed resolution of the hematoma. 10/09/2023 she was seen in our emergency department with 2 weeks of right low back pain radiating into her leg and foot. CT at that time showed moderate to severe right foraminal stenosis at L5-S1. Previous fusion at L4-5 and posterior decompression at L2-4. CT abdomen and pelvis showed no residual hematoma. She was given a course of prednisone for treatment of possible sciatica. She tells me now that it might have helped a little bit but she is unsure of this. She has been taking hydrocodone acetaminophen as needed for pain, she has had approximately 53 tablets in 24 days. She was prescribed physical therapy which is of uncertain benefit. The course of therapy has been completed. She reports no fever. She reports her breathing is better since her TAVR. She is having no chest pain. She reports a very poor appetite. She reports very poor sleep. She is having trouble falling asleep. She reports profound weakness. For at least 2 days she has been unable to get out of bed and go to the bathroom. She has been incontinent of urine in bed. She denies urinary frequency urgency or dysuria. Previous urinary tract infection in April grew Citrobacter resistant to cefazolin but susceptible to ceftriaxone. She reports that she is having generalized pain. She reports in ?hurting all over?. She also reports having pain in her low back radiating down her posterior lateral thigh and calf to her foot. She is not having any numbness that she is aware of. Her incontinence of urine was due to inability to get out of bed rather than inability to control her urine at all. October 21: Patient reports feeling a little better today. She reports having some low back pain. Sitting in the chair she says she has a little bit of numbness in her right foot but will not specify where. She is not having pain shooting down her right leg. She has had a low-grade fever this morning. She reports no cough shortness of breath new chest or abdominal pain. No urinary symptoms. She has been eating well this morning. She reports being more tearful today. Exam Narrative: Exam Narrative: She is alert and appears in no distress. She is more conversant today and able to give some more history but still quite vague about events of the past week and unable to give much information about events leading to this hospital stay and her recent disability. Respirations are clear to auscultation. Cardiovascular: S1, S2, regular rate and rhythm. Abdomen is soft with minimal diffuse tenderness. She has less tenderness of with palpation over her entire body. No extremity edema. She moves all 4 extremities well. Const: Vital Signs, click to edit/add: Vital Signs - 24 hr 10/21/23 12:05 10/21/23 12:06 10/21/23 12:07 Temperature Pulse Rate [Pulse Oximeter] 78 Pulse Rate [Right Pulse Oximeter] Respiratory Rate 18 Blood Pressure [Le ft Arm] Blood Pressure [Ri ght Upper Arm] 144/70 H 134/50 L 128/49 L Pulse Oximetry 95 Oxygen Delivery Me thod Room Air 10/21/23 12:12 10/21/23 15:43 10/21/23 16:02 Temperature 99.4 F Pulse Rate [Pulse Oximeter] 79 88 Pulse Rate [Right Pulse Oximeter] 94 Respiratory Rate 19 18 18 Blood Pressure [Le ft Arm] 148/63 H Blood Pressure [Ri ght Upper Arm] 141/57 H 161/57 H Pulse Oximetry 95 92 95 Oxygen Delivery Me thod Room Air Room Air Room Air 10/21/23 16:02 10/21/23 20:02 10/21/23 22:07 Temperature 98.6 F 99.9 F H Pulse Rate [Pulse Oximeter] Pulse Rate [Right Pulse Oximeter] 86 84 Respiratory Rate 18 16 16 Blood Pressure [Le ft Arm] 162/61 H 188/75 H Blood Pressure [Ri ght Upper Arm] Pulse Oximetry 95 95 94 Oxygen Delivery Mt thod Room Air Room Air Room Air 10/21/23 22:35 10/21/23 22:35 10/21/23 23:30 Temperature 99.9 F H Pulse Rate [Pulse Oximeter] Pulse Rate [Right Pulse Oximeter] Respiratory Rate 16 18 Blood Pressure [Le ft Arm] Blood Pressure [Ri ght Upper Arm] Pulse Oximetry Oxygen Delivery Mt thod 10/22/23 03:23 10/22/23 05:48 10/22/23 07:00 Temperature 99.6 F 100.0 F H Pulse Rate [Pulse Oximeter] Pulse Rate [Right Pulse Oximeter] 85 Respiratory Rate 16 16 18 Blood Pressure [Le ft Arm] 155/67 H Blood Pressure [Ri ght Upper Arm] Pulse Oximetry 90 [facility] 10/22/23 09:04 Temperature 100.0 F H Pulse Rate [Pulse Oximeter] Pulse Rate [Right Pulse Oximeter] Respiratory Rate Blood Pressure [Le ft Arm] Blood Pressure [Ri ght Upper Arm] Pulse Oximetry Oxygen Delivery Me od Documenting provider has reviewed patient's vital signs: yes Labs Labs: Laboratory Results - last 24 hr 10/21/23 10/21/23 10/21/23 12:19 13:30 14:15 WBC 6.09 RBC 3.68 L Hgb 12.2 Hct 38.9 MCV 106 H MCH 33 MCHC 31 L RDW Coeff of Nav[place] 17.4 H Plt Count 68 L Neut % (Auto) 79.4 H Lymph % (Auto) 13.1 L [place] % (Auto) 4.9 Eos % (Auto) 1.8 Baso % (Auto) 0.3 Neut # (Auto) 4.80 Lymph # (Auto) 0.80 L [place] # (Auto) 0.30 Eos # (Auto) 0.11 Baso # (Auto) 0.02 Abs Immat Gran (auto) 0.03 Imm/Tot Granulo (auto) 0.5 Sodium 138 Potassium 4.1 Chloride 105 Carbon Dioxide 32 Anion Gap 1 L BUN 41 H Creatinine 1.0 Estimated Creat Clear 39.59 Estimated GFR 58 Glucose 102 Lactate 1.2 Calcium 8.3 L Total Bilirubin 0.9 AST 45 H ALT 32 Alkaline Phosphatase 58 Troponin I 0.04 Total Protein 5.6 L Albumin 3.2 L Urine Color Yellow Urine Appearance Cloudy A Urine pH 7.0 Ur Specific [place] 1.020 Urine Protein Trace A Urine Glucose (UA) Negative Urine Ketones Negative Urine Blood 2+ A Urine Nitrite Negative Urine Bilirubin Negative Urine Urobilinogen 0.2 Ur Leukocyte Esterase 1+ A Urine RBC 5-10 A Urine WBC 50-100 A Ur Squamous Epith Cells None Urine Bacteria Many A SARS-CoV-2 (PCR) Negative SARS-CoV-2 Influenza Type A (PCR) Negative PCR FLU A Influenza Type B (PCR) Negative PCR FLU B RSV (PCR) Negative PCR RSV
--- NOTE | 2023-10-22 13:33 | P.IMCN_ITS ---
Date of Consult Patient: [facility] Patient Consult date: 10/22/23 Requesting Physician: Hospitalist Primary Care Provider: Kyle Healy MD Consult Narrative Reason for consult: Pressure ulcer to abdomen Narrative: Tanner James is a 78 year old female well known to the wound center. Patient with multiple chronic conditions such as chronic weakness, rheumatoid arthritis, aortic stenosis status post TAVR in May 2023, COPD, obesity, fibromyalgia, anxiety, stage 3 chronic kidney disease, history of pulmonary embolism, left nephrectomy presents with acute on chronic weakness, loss of appetite, insomnia. Patient has had multiple hospital admissions over the last 6 months. See hospitalist progress notes for all details. Has been seen in Wound Center throug hout course of hospitalizations for same left abdominal wound. Area has closed in past after [place] applications, then re-opened a few weeks later. States presented via ambulance to emergency room later last evening. Admitted to hospital floor for several acute and chronic conditions. States was not making any sense verbally last evening. [place] this coming on for a few days. Plan will be for transfer to transitional care on Wednesday10-25-2023. Hopeful to continue care in Wound Center during transitional care stay. Review of Systems Status of ROS: Reports: 6 or more systems reviewed and unremarkable except as noted in History and below Cardio: Reports: edema Musculo: Reports: extremity pain and muscle weakness Integ/Breast: Reports: non-healing lesion [facility] Medical History (Updated 10/22/23 @ 14:37 by Renae Rosado APRN) Fever ?R50.9 - Fever, unspecified (ICD-10) Immunocompromised state due to drug therapy ?D84.821 - Immunodeficiency due to drugs (ICD-10) ?Z79.899 - Other termite inspector (current) drug therapy (ICD-10) Cognitive impairment ?R41.89 - Other symptoms and signs involving cognitive functions and awareness (ICD-10) 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) ?H30.92 - Unspecified chorioretinal inflammation, left eye (ICD-10) ?B25.9 - Cytomegaloviral disease, unspecified (ICD-10) 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 - Aneurysm of artery of lower extremity (ICD-10) Obesity (BMI 30.0-34.9) ?E66.9 - Obesity, unspecified (ICD-10) Alcohol use disorder ?F10.90 - Alcohol use, unspecified, uncomplicated (ICD-10) Pulmonary embolism ?I26.99 - Other pulmonary embolism without acute cor pulmonale (ICD-10) Gastrointestinal hemorrhage ?K92.2 - Gastrointestinal hemorrhage, unspecified (ICD-10) Aortic stenosis, severe ?I35.0 - Nonrheumatic aortic (valve) stenosis (ICD-10) Paroxysmal atrial fibrillation ?I48.0 - Paroxysmal atrial fibrillation (ICD-10) Pleural effusion ?J90 - Pleural effusion, not elsewhere classified (ICD-10) Chronic wound ?T14.8XXA - Other injury of unspecified body region, initial encounter (ICD- 10) History of kidney stones ?Z87.442 - Personal history of urinary calculi (ICD-10) POLST (Physician Orders for Life-Sustaining Treatment) ?Z78.9 - Other specified health status (ICD-10) Mitral annular calcification ?I05.9 - Rheumatic mitral valve disease, unspecified (ICD-10) Surgical History Status post transcatheter aortic valve replacement (TAVR) using bioprosthesis ?Z95.3 - Presence of xenogenic heart valve (ICD-10) S/P cataract extraction ?Z98.49 - Cataract extraction status, unspecified eye (ICD-10) S/P cholecystectomy ?Z90.49 - Acquired absence of other specified parts of digestive tract (ICD- 10) History of left nephrectomy ?Z90.5 - Acquired absence of kidney (ICD-10) History of lumbar fusion (04/2010) ?Z98.1 - Arthrodesis status (ICD-10) History of lithotripsy ?Z98.890 - Other specified postprocedural states (ICD-10) Family History Mother Breast cancer, Onset Age: 70 Sister Breast cancer, Onset Age: 35 Social History (Updated 10/21/23 @ 16:20 by Alejandro Vasquez MD) Narrative: She has been living independently at [facility]. Struggling with providing self cares. Daughter found her in bed with incontinence today and brought her to the emergency department. Code status is DNR DNI. What is your current living situation?: I presently have a place to live Problems where you live: no known problems Problems where you live details: na In the past 12 months, utilities in danger of being shut off: no In past 12 months, lack of transportation kept you from medical appts, meetings, work, or getting things needed for daily living: no In the past 12 mos, have been you worried that your food would run out before you had money to buy more?: never true In the past 12 mos, the food you bought just didn't last and you didn't have money to buy more?: never true Highest level of school completed/degree received: high school graduate Smoking Status: Never smoker Do you use any of these nicotine containing products: None Second hand tobacco smoke exposure: No How often do you have a drink containing alcohol: never How often do you have six or more drinks on one occasion: Never AUDIT-C Alcohol total score: 0 Non-prescribed substance use: denies use Caffeine: No How often does anyone, including family, friends and others, physically hurt you : never How often does anyone, including family, friends and others, insult or talk down to you: never How often does anyone, including family, friends and others, threaten you with harm: never How often does anyone, including family, friends and others, scream or curse at you: never Little interest or pleasure in doing things: more than half the days Feeling down, depressed, or hopeless: more than half the days service: No Meds Home Medications and Allergies Home Medications Medication Instructions Recorded Confirmed Type Lactobacillus acidophilus 0.5 mg 1,000 mmu cells PO DAILY 12/22/21 10/21/23 History (100 million cell) tablet folic acid 1 mg tablet 3 mg PO DAILY 12/22/21 10/21/23 History ascorbic acid (vitamin C) 500 mg 1 g PO DAILY 01/16/22 10/21/23 History tablet cholecalciferol (vitamin D3) 50 50 mcg PO DAILY 01/16/22 10/21/23 History mcg (2,000 unit) capsule multivitamin 1 tab PO QAM 01/16/22 10/21/23 History methotrexate sodium 2.5 mg tablet 17.5 mg PO Q7D 08/24/23 10/21/23 History ferrous gluconate 324 mg (38 mg 324 mg PO DAILY 10/21/23 10/21/23 History iron) tablet prednisone 5 mg tablet 7.5 mg PO DAILY 10/21/23 10/21/23 History Allergies Allergy/AdvReac Type Severity Reaction Status Date / Time NSAIDS (Non-Steroidal Allergy Severe GI bleed Verified 10/21/23 11:08 Anti-Inflamma terbinafine Allergy Intermediate Headache Verified 10/21/23 11:08 levofloxacin AdvReac Severe tendon Verified 10/21/23 11:08 rupture Exam Narrative: Exam Narrative: Seen today in room. Sitting in recliner. Noticable increased swelling to lower extremities. Free of open areas to lower extremities. Noticable fatigue. Alert to self and situation. Const: Vital Signs, click to edit/add: Vital Signs - 24 hr 10/21/23 15:43 10/21/23 16:02 10/21/23 16:02 Temperature 99.4 F Pulse Rate [Pulse Oximeter] 88 Pulse Rate [Right Pulse Oximeter] 94 Respiratory Rate 18 18 18 Blood Pressure [Le ft Arm] 148/63 H Blood Pressure [Ri ght Upper Arm] 161/57 H Pulse Oximetry 92 95 95 Oxygen Delivery Me thod Room Air Room Air Room Air 10/21/23 20:02 10/21/23 22:07 10/21/23 22:35 Temperature 98.6 F 99.9 F H 99.9 F H Pulse Rate [Pulse Oximeter] Pulse Rate [Right Pulse Oximeter] 86 84 Respiratory Rate 16 16 Blood Pressure [Le ft Arm] 162/61 H 188/75 H Blood Pressure [Ri ght Upper Arm] Pulse Oximetry 95 94 Oxygen Delivery Me thod Room Air Room Air 10/21/23 22:35 10/21/23 23:30 10/22/23 03:23 Temperature 99.6 F Pulse Rate [Pulse Oximeter] Pulse Rate [Right Pulse Oximeter] Respiratory Rate 16 18 16 Blood Pressure [Le ft Arm] Blood Pressure [Ri ght Upper Arm] Pulse Oximetry Oxygen Delivery Me thod 10/22/23 05:48 10/22/23 07:00 10/22/23 09:04 Temperature 100.0 F H 100.0 F H Pulse Rate [Pulse Oximeter] Pulse Rate [Right Pulse Oximeter] 85 Respiratory Rate 16 18 Blood Pressure [Le ft Arm] 155/67 H Blood Pressure [Ri ght Upper Arm] Pulse Oximetry 90 Oxygen Delivery Me thod Room Air 10/22/23 11:00 Temperature 98.6 F Pulse Rate [Pulse Oximeter] Pulse Rate [Right Pulse Oximeter] 90 Respiratory Rate 16 Blood Pressure [Le ft Arm] 128/58 L Blood Pressure [Ri ght Upper Arm] Pulse Oximetry 93 Oxygen Delivery Me thod Room Air General appearance: cooperative and comfortable Resp: Common normals: normal respiratory effort Effort & inspection: able to speak in complete sentences Extremity: General: edema Skin: Wounds: wounds noted size (Increased in size since last wound center appointment. 1x1x0.3cm today ), bed shiny and beefy red, drainage bloody and without odor Labs Labs: Urine 10/21/23 Range/Units 14:15 Urine Color Yellow (Yellow) Urine Appearance Cloudy A (Clear) Urine pH 7.0 (5.0-8.5) Ur Specific [place] 1.020 (1.000-1.030) Urine Protein Trace A (Negative) Urine Glucose (UA) Negative (Negative) Assessment and Plan Assessment and plan (1) Immunocompromised state due to drug therapy: Problem comment: On chronic methotrexate 17.5 mg weekly and prednisone 7.5 mg daily Status: Acute Assessment and Plan: Will continue to affect wound healing. (2) Cognitive impairment: Problem comment: Patient reports some increased confusion and forgetfulness. I observe some confusion over recent events. [place] on 10/22/2023 is 23/30. Consider reducing opioid use. Status: Acute (3) Pedal edema: Problem comment: Per PCP at [facility]: Edema is likely contributed to by her not being very active physically due to her physical limitations. Plan to check labs and refill furosemide 40 mg daily. Status: Chronic (4) Protein calorie malnutrition: Problem comment: Oral intake has been good once she recovered from her acute illness. Status: Chronic Assessment and Plan: [place] like over last few days her intake was good, though has been decreased past couple of weeks. Due to chronic comorbidities does not have residual stores to help sustain wound healing when unable to obtain enough calories and protein. (5) Generalized weakness: Problem comment: Acute on chronic Status: Acute Assessment and Plan: Continues to need assistance at home, chronic sciatic pain brought PT/OT back in home. Wound Care requested further care for nursing services to assist with wound. (6) Pressure ulcer of other site, stage 4: Problem comment: Chronic non-healing Status: Acute Assessment and Plan: Continues to increase in size over course of last 2-3 weeks. Wound Center we [facility], seen inpatient by Wound [facility] today for assessment and management. Increased drainage today. Per patient dressing has been removed for multiple individuals to visualize wound bed. Will start antibiotics for UTI during hospital course, wound does not present with clinical signs of infection. I do not feel needs to be separately cultured today. Will determine difference with next Wound Center visit if patient is able to return next week 10/29/23. No increased pain to area. Patient has noticeably gained weight, in past several months, skin being pulled apart due to location likely plays a role in size. Wound Care Orders: -Cleanse with Vashe or Alternative Wound cleanser. -Allow to remain on wound bed for 3-5 minutes each dressing. Easiest way to accomplish this is to moisten gauze and allow gauze to remain on Wound bed for duration. -Pack aquacel ag lightly into depth. -Cover with Silicone foam border dressing such as mepilex -Change 3x per week (Wednesday/Wednesday/Wednesday if able) Wound center AFTER[facility]CHOOL will not be needed to follow any further during hospitalization. Please feel free to re-consult if any further concerns.
--- NOTE | 2023-10-22 19:00 | PC.NURSE ---
End of Shift: The patient is alert and orientated... very involved with her care. The patient reported moderate pain in her R low back that radiates down her leg. PRN oxy given 1x and Tylenol given as well. Upon assessment this AM the patient had a fever... after administration of Tylenol appears to be afebrile. Weakness and ambulation are her concern at this time... can not return to [place] she is very motivated for rehab. Voided only a few times today but large amounts, and low PO intake. Call light within reach. Ax1 to commode w/ RW and GB per PT for safety and due to fatigue. Jenifer VIDES BSN
[2023-10-22] MEDS: DULOXETINE 30 MG CAPSULE DR PO (20:41)
[2023-10-22] MEDS: ASCORBIC ACID 500 MG TABLET 1000 MG PO (20:41)
[2023-10-22] MEDS: PARoxetine 20 MG TABLET 10 MG PO (20:41)
[2023-10-22] MEDS: FERROUS SULFATE 325 MG TABLET PO (20:42)
[2023-10-22] MEDS: ROSUVASTATIN CALCIUM 10 MG TABLET 5 MG PO (20:42)
[2023-10-23] VITALS (7 sets, daily range): BP systolic 137–156; BP diastolic 55–66; PULSE 74–90; RESP 16–28; TEMP 36.4–36.8; O2SAT 93–96
--- NOTE | 2023-10-23 01:19 | PC.NURSE ---
Rag Cutting Machine Feeder accessed pt's intervention list in order to document I&O as this telegraphic typewriter installer assisted pt to commode.
--- NOTE | 2023-10-23 06:57 | PC.NURSE ---
End of shift [id number] ? Pt alert, oriented to self, place, and situation. Intermittently disoriented to time. Tolerating RA, regular diet, fluids. Pt reported pain in R hip that increased with movement. Medication given per MAR with pt reporting improvement in pain. Up to bedside commode with stand and pivot, walker/gait belt, and 1 staff assist. Pt observed to sleep during shift, appears to be resting comfortably. ?
[2023-10-23] MEDS: cefTRIAXone 1 GM in 0.9 % SODIUM CHLORIDE Mini-bag 100 ML IVPB (08:52)
[2023-10-23] MEDS: SODIUM CHLORIDE 0.9 % (FLUSH) 10 ML SYRINGE 5 ML IVF ×2 (08:52→20:33)
[2023-10-23] MEDS: MULTIVITAMIN/MINERALS 1 TABLET 1 TAB PO (08:53)
[2023-10-23] MEDS: METOPROLOL SUCCINATE (XL) 25 MG TAB PO ×2 (08:53→20:29)
[2023-10-23] MEDS: LACTOBACILLUS ACIDOPHILUS 1 TABLET 1 TAB PO (08:53)
[2023-10-23] MEDS: FUROSEMIDE 40 MG TABLET PO (08:53)
[2023-10-23] MEDS: APIXABAN 5 MG TABLET 2.5 MG PO ×2 (08:53→20:27)
[2023-10-23] MEDS: FOLIC ACID 1 MG TABLET 3 MG PO (08:53)
[2023-10-23] MEDS: predniSONE 5 MG TABLET 7.5 MG PO (08:54)
[2023-10-23] MEDS: VALGANCICLOVIR 450 MG PO (08:57)
[2023-10-23] MEDS: PREGABALIN 50 MG CAPSULE PO ×2 (08:59→20:32)
--- NOTE | 2023-10-23 11:42 | P.IMPN_ITS ---
Progress Note: A&P Assessment and plan (1) Acute UTI: Problem details: On admission it was unclear whether the UTI was the cause of her symptoms. Now with 2 days of antibiotic therapy and marked improvement in her mental status and mobility and resolution of her urinary incontinence I think it is likely that they acute UTI was the cause of the acute deterioration. Culture growing Klebsiella pneumonia susceptible to cephalosporins, not ampicillin or nitrofurantoin. Status: Acute (2) Immunocompromised state due to drug therapy: Problem details: On chronic methotrexate 17.5 mg weekly and prednisone 7.5 mg daily Status: Acute (3) Cognitive impairment: Problem details: Patient reports some increased confusion and forgetfulness. I observe some confusion over recent events. [place] on 10/22/2023 is 23/30. Consider reducing opioid use. Status: Acute (4) Pedal edema: Problem details: Chronic lower extremity edema. Minimal venous stasis skin changes. Managed as an outpatient with furosemide. Recommend elevation and compression with Zana hose Status: Chronic (5) Generalized weakness: Problem details: Acute on chronic. Quite sedentary at baseline. Now with acute illness and metabolic encephalopathy from her UTI she had marked worsening. Now with treatment much better Status: Acute (6) Pressure ulcer of other site, stage 4: Problem details: Chronic non-healing Status: Acute (7) Sciatica associated with disorder of lumbar spine: Problem details: Has moderate to severe neural foraminal narrowing on the right L5-S1. Not obviously having neurologic deficits from this but radicular pain is present. Status: Acute (8) Hematoma: Problem details: Right femoral triangle area. Associated retroperitoneal hemorrhage. June 21, 2023. Secondary to femoral puncture from TAVR. Repeat CT scan from October 09 2023 showed complete resolution. Status: Acute (9) Rheumatoid arthritis: Problem details: She is back on methotrexate. Not obviously having inflammatory arthritis at this time Status: Acute (10) Metabolic encephalopathy: Problem details: On admission patient had increased confusion, forgetfulness, inability to ambulate. This has largely resolved in the last 2 days suggesting this was metabolic encephalopathy due to acute urinary tract infection. Status: Acute (11) Fibromyalgia: Problem details: She is having generalized pain and generalized tenderness to palpation. Previous diagnosis of fibromyalgia. Start on pregabalin. Switch from paroxetine to duloxetine Status: Acute Plan Continue in hospital for management of urinary tract infection, encephalopathy, weakness, disability. Discharge pending safe discharge plan. Time Spent With Patient Total time spent: Total time spent today is 45 minutes, 30 minutes in coordination care discussing with patient other providers management of weakness, urine infection, disability Subjective Date Seen: 10/23/23 Interval history: Tanner James is a 78 year old female with chronic weakness, rheumatoid arthritis, aortic stenosis status post TAVR in May 2023, COPD, obesity, fibromyalgia, anxiety, stage 3 chronic kidney disease, history of pulmonary embolism, left nephrectomy presents with acute on chronic weakness, loss of appetite, insomnia. Patient has had multiple hospital admissions over the last 6 months: April 2023 she was hospitalized here for weakness. At that time there was concern of multifactorial weakness including some heart failure with severe aortic stenosis, COPD, UTI, type 2 non STEMI. She was admitted for a week, discharge to home, readmitted 2 days later with ongoing weakness and fever. She was transferred to [facility] because of her fever and heart disease. April 2023 hospitalized at [facility] after transfer from [facility] for fever and cardiac evaluation. Fever resolved spontaneously. She was deemed an appropriate candidate for TAVR. Discharge to halfway facility for about 1 month. 06/16/2023 hospitalized at [place] for TAVR. Procedure went well. She reports resolution of her cardio-respiratory symptoms after TAVR. 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 Readmitted on June 21 for management of this. The hematoma has resolved but she still reporting pain in the area of her right groin, right abdomen, right thigh. Repeat CT imaging on October 09 2023 showed resolution of the hematoma. 10/09/2023 she was seen in our emergency department with 2 weeks of right low back pain radiating into her leg and foot. CT at that time showed moderate to severe right foraminal stenosis at L5-S1. Previous fusion at L4-5 and posterior decompression at L2-4. CT abdomen and pelvis showed no residual hematoma. She was given a course of prednisone for treatment of possible sciatica. She tells me now that it might have helped a little bit but she is unsure of this. She has been taking hydrocodone acetaminophen as needed for pain, she has had approximately 53 tablets in 24 days. She was prescribed physical therapy which is of uncertain benefit. The course of therapy has been completed. She reports no fever. She reports her breathing is better since her TAVR. She is having no chest pain. She reports a very poor appetite. She reports very poor sleep. She is having trouble falling asleep. She reports profound weakness. For at least 2 days she has been unable to get out of bed and go to the bathroom. She has been incontinent of urine in bed. She denies urinary frequency urgency or dysuria. Previous urinary tract infection in April grew Citrobacter resistant to cefazolin but susceptible to ceftriaxone. She reports that she is having generalized pain. She reports in ?hurting all over?. She also reports having pain in her low back radiating down her posterior lateral thigh and calf to her foot. She is not having any numbness that she is aware of. Her incontinence of urine was due to inability to get out of bed rather than inability to control her urine at all. October 21: Patient reports feeling a little better today. She reports having some low back pain. Sitting in the chair she says she has a little bit of numbness in her right foot but will not specify where. She is not having pain shooting down her right leg. She has had a low-grade fever this morning. She reports no cough shortness of breath new chest or abdominal pain. No urinary symptoms. She has been eating well this morning. She reports being more tearful today. October 22: Patient continues to report feeling better. Today she reports feeling stronger. She is now able to walk to the bathroom with standby assist. She is not aware of any fever. She has been eating well. She has got a little bit of cough and dyspnea with activity. She had minimal discomfort with ambulating with a walker. She feels like her lieu low back pain and sciatica is much better Exam Narrative: Exam Narrative: She is alert and appears in no distress. Respirations are clear to auscultation. Cardiovascular: S1, S2, regular rate and rhythm. Breathing is unlabored. Abdomen: Bowel sounds active. Abdomen is soft without tenderness or mass. Extremities: She has full strength in all 4 extremities. Minimal discomfort with strength testing in her right lower extremity. She has 1 to 2+ edema in both her ankles. Const: Vital Signs, click to edit/add: Vital Signs - 24 hr 10/22/23 12:30 10/22/23 16:17 10/22/23 21:03 Temperature 98.6 F 98.4 F 98.2 F Pulse Rate [Right Pulse Oximeter] 78 79 Respiratory Rate 20 20 Blood Pressure [Le ft Arm] 144/69 H 151/64 H Pulse Oximetry 92 97 Oxygen Delivery Me thod Room Air Room Air 10/22/23 23:17 10/23/23 05:49 10/23/23 08:48 Temperature 97.7 F Pulse Rate [Right Pulse Oximeter] 80 90 Respiratory Rate 20 20 28 H Blood Pressure [Le ft Arm] 145/60 H Pulse Oximetry 93 Oxygen Delivery Me thod Room Air 10/23/23 08:48 Temperature 98.3 F Pulse Rate [Right Pulse Oximeter] 90 Respiratory Rate 28 H Blood Pressure [Le ft Arm] 141/55 H Pulse Oximetry 96 Oxygen Delivery Me thod Room Air Documenting provider has reviewed patient's vital signs: yes
[2023-10-23] MEDS: OXYCODONE 5 MG TABLET 2.5 MG PO (15:17)
[2023-10-23] MEDS: ACETAMINOPHEN 325 MG TABLET 650 MG PO (15:17)
--- NOTE | 2023-10-23 18:50 | PC.NURSE ---
End of Shift: Pt calm, cooperative, and pleasant. Pt vitally stable, lungs sounds clear, BS active. IV saline locked and intact. Pt reports pain 6/10, Tylenol and Oxycodone given once. Pt 1 assist/walker/gait belt, urinating well, and 2 loose stools. Pt sat in chair for meals. Left abdominal wound c/d/i.
[2023-10-23] MEDS: ASCORBIC ACID 500 MG TABLET 1000 MG PO (20:27)
[2023-10-23] MEDS: DULOXETINE 30 MG CAPSULE DR PO (20:28)
[2023-10-23] MEDS: FERROUS SULFATE 325 MG TABLET PO (20:28)
[2023-10-23] MEDS: PARoxetine 20 MG TABLET 10 MG PO (20:29)
[2023-10-23] MEDS: ROSUVASTATIN CALCIUM 10 MG TABLET 5 MG PO (20:33)
--- NOTE | 2023-10-23 22:30 | PC.NURSE ---
Pt noted to be alert & oriented x 4 and able to make needs known. She is transferring/ambulating to and from bathroom with SBA using FWW and GB. Pt has been continent of bladder with no further loose stools noted. VSS and pt has been afebrile. IV to R FA patent and SL. Pt denied pain when asked and stated, I feel so much better today compared to how I felt yesterday. Dressing to L abdominal wound noted to be C/D/I upon assessment. TOMMIE stockings worn to bilateral lower extremities and were removed for 1 hour at HS.
[2023-10-24] VITALS (8 sets, daily range): BP systolic 139–167; BP diastolic 56–70; PULSE 78–86; RESP 16–24; TEMP 36.6–36.8; O2SAT 92–96
--- NOTE | 2023-10-24 06:08 | PC.NURSE ---
Shift note: Pt is doing well with A1, walker and GB. Back pain rated at 6/10, Oxycodone 2.5mg given at 0030. Restful night vital signs order ensured. Pt had adequate sleep. Alert and oriented.
[2023-10-24] MEDS: ACETAMINOPHEN 325 MG TABLET 650 MG PO (07:47)
[2023-10-24] MEDS: OXYCODONE 5 MG TABLET 2.5 MG PO ×2 (07:47)
[2023-10-24] MEDS: predniSONE 5 MG TABLET 7.5 MG PO (09:50)
[2023-10-24] MEDS: APIXABAN 5 MG TABLET 2.5 MG PO ×2 (09:51→20:53)
[2023-10-24] MEDS: MULTIVITAMIN/MINERALS 1 TABLET 1 TAB PO (09:52)
[2023-10-24] MEDS: PREGABALIN 50 MG CAPSULE PO ×2 (09:52→20:52)
[2023-10-24] MEDS: FOLIC ACID 1 MG TABLET 3 MG PO (09:52)
[2023-10-24] MEDS: METOPROLOL SUCCINATE (XL) 25 MG TAB PO ×2 (09:52→20:52)
[2023-10-24] MEDS: VALGANCICLOVIR 450 MG PO (09:53)
[2023-10-24] MEDS: LACTOBACILLUS ACIDOPHILUS 1 TABLET 1 TAB PO (09:53)
[2023-10-24] MEDS: FUROSEMIDE 40 MG TABLET PO (09:53)
[2023-10-24] MEDS: SODIUM CHLORIDE 0.9 % (FLUSH) 10 ML SYRINGE 5 ML IVF ×2 (09:54→20:55)
[2023-10-24] MEDS: cefTRIAXone 1 GM in 0.9 % SODIUM CHLORIDE Mini-bag 100 ML IVPB (09:55)
--- NOTE | 2023-10-24 12:06 | PM.IMPN1 ---
Progress Note: A&P Assessment and plan (1) Acute UTI: Problem details: On admission it was unclear whether the UTI was the cause of her symptoms. Now with 3 days of antibiotic therapy and marked improvement in her mental status and mobility and resolution of her urinary incontinence I think it is likely that they acute UTI was the cause of the acute deterioration. Culture growing Klebsiella pneumonia susceptible to cephalosporins, not ampicillin or nitrofurantoin. Status: Acute (2) Immunocompromised state due to drug therapy: Problem details: On chronic methotrexate 17.5 mg weekly and prednisone 7.5 mg daily Status: Acute (3) Cognitive impairment: Problem details: Patient reports some increased confusion and forgetfulness. I observe some confusion over recent events. This has much improved since admission. Much of her confusion and forgetfulness is from her acute illness. [place] on 10/22/2023 is 23/30. Consider reducing opioid use. Status: Acute (4) Pedal edema: Problem details: Chronic lower extremity edema. Minimal venous stasis skin changes. Managed as an outpatient with furosemide. Recommend elevation and compression with Zana hose Status: Chronic (5) Generalized weakness: Problem details: Acute on chronic. Quite sedentary at baseline. Now with acute illness and metabolic encephalopathy from her UTI she had marked worsening. Now with treatment much better. Status: Acute (6) Pressure ulcer of other site, stage 4: Problem details: Chronic non-healing Status: Acute (7) Sciatica associated with disorder of lumbar spine: Problem details: Has moderate to severe neural foraminal narrowing on the right L5-S1. Not obviously having neurologic deficits from this but radicular pain is present. Taper off opioids if possible. Pregabalin. Status: Inactive (8) Hematoma: Problem details: Right femoral triangle area. Associated retroperitoneal hemorrhage. June 21, 2023. Secondary to femoral puncture from TAVR. Repeat CT scan from October 09 2023 showed complete resolution. Status: Acute (9) Rheumatoid arthritis: Problem details: She is back on methotrexate. Not obviously having inflammatory arthritis at this time Status: Acute (10) Metabolic encephalopathy: Problem details: On admission patient had increased confusion, forgetfulness, inability to ambulate. This has largely resolved in the last 2 days suggesting this was metabolic encephalopathy due to acute urinary tract infection. Status: Acute (11) Fibromyalgia: Problem details: She is having generalized pain and generalized tenderness to palpation. Previous diagnosis of fibromyalgia. Start on pregabalin. Switch from paroxetine to duloxetine Status: Acute Plan Continue in hospital for management of pain, rehab, treatment of UTI. Probable discharge tomorrow to senior living facility for additional rehab. Time Spent With Patient Total time spent: Total time spent today is 40 minutes, 30 minutes in coordination of care and discussing with patient and other providers management of pain, disability, rehab Subjective Date Seen: 10/24/23 Interval history: Tanner James is a 78 year old female with chronic weakness, rheumatoid arthritis, aortic stenosis status post TAVR in May 2023, COPD, obesity, fibromyalgia, anxiety, stage 3 chronic kidney disease, history of pulmonary embolism, left nephrectomy presents with acute on chronic weakness, loss of appetite, insomnia. Patient has had multiple hospital admissions over the last 6 months: April 2023 she was hospitalized here for weakness. At that time there was concern of multifactorial weakness including some heart failure with severe aortic stenosis, COPD, UTI, type 2 non STEMI. She was admitted for a week, discharge to home, readmitted 2 days later with ongoing weakness and fever. She was transferred to [facility] because of her fever and heart disease. April [address] [facility] after transfer from [facility] for fever and cardiac evaluation. Fever resolved spontaneously. She was deemed an appropriate candidate for TAVR. Discharge to senior living facility for about 1 month. 06/16/2023 hospitalized at [place] for TAVR. Procedure went well. She reports resolution of her cardio-respiratory symptoms after TAVR. 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 Readmitted on June 21 for management of this. The hematoma has resolved but she still reporting pain in the area of her right groin, right abdomen, right thigh. Repeat CT imaging on October 09 2023 showed resolution of the hematoma. 10/09/2023 she was seen in our emergency department with 2 weeks of right low back pain radiating into her leg and foot. CT at that time showed moderate to severe right foraminal stenosis at L5-S1. Previous fusion at L4-5 and posterior decompression at L2-4. CT abdomen and pelvis showed no residual hematoma. She was given a course of prednisone for treatment of possible sciatica. She tells me now that it might have helped a little bit but she is unsure of this. She has been taking hydrocodone acetaminophen as needed for pain, she has had approximately 53 tablets in 24 days. She was prescribed physical therapy which is of uncertain benefit. The course of therapy has been completed. She reports no fever. She reports her breathing is better since her TAVR. She is having no chest pain. She reports a very poor appetite. She reports very poor sleep. She is having trouble falling asleep. She reports profound weakness. For at least 2 days she has been unable to get out of bed and go to the bathroom. She has been incontinent of urine in bed. She denies urinary frequency urgency or dysuria. Previous urinary tract infection in April grew Citrobacter resistant to cefazolin but susceptible to ceftriaxone. She reports that she is having generalized pain. She reports in ?hurting all over?. She also reports having pain in her low back radiating down her posterior lateral thigh and calf to her foot. She is not having any numbness that she is aware of. Her incontinence of urine was due to inability to get out of bed rather than inability to control her urine at all. October 21: Patient reports feeling a little better today. She reports having some low back pain. Sitting in the chair she says she has a little bit of numbness in her right foot but will not specify where. She is not having pain shooting down her right leg. She has had a low-grade fever this morning. She reports no cough shortness of breath new chest or abdominal pain. No urinary symptoms. She has been eating well this morning. She reports being more tearful today. October 22: Patient continues to report feeling better. Today she reports feeling stronger. She is now able to walk to the bathroom with standby assist. She is not aware of any fever. She has been eating well. She has got a little bit of cough and dyspnea with activity. She had minimal discomfort with ambulating with a walker. She feels like her lieu low back pain and sciatica is much better October 23: Patient continues to feel like she is getting better and stronger. She is eating well. She has no breathing problems though she does get dyspneic when she does walk. Poor exercise tolerance still present. Balance and strength in her legs is much improved. Sciatica in her right leg is much better. It appears she has had 3 doses of oxycodone 2.5 mg in the last day. Exam Narrative: Exam Narrative: She is alert and no distress. Mood and affect are bright. Respirations are clear to auscultation. Cardiovascular: S1, S2, regular rate and rhythm. Abdomen is soft without tenderness. Extremities with improved edema but support hose in place. Approximately equal strength in both lower extremities Const: Vital Signs, click to edit/add: Vital Signs - 24 hr 10/23/23 14:59 10/23/23 14:59 10/23/23 19:49 Temperature 98.2 F 97.7 F Pulse Rate [Right Pulse Oximeter] 79 79 74 Respiratory Rate 26 H 26 H 16 Blood Pressure [Le ft Arm] 156/66 H 137/55 L Pulse Oximetry 95 93 Oxygen Delivery Me thod Room Air Room Air 10/23/23 23:00 10/23/23 23:00 10/23/23 23:07 Temperature Pulse Rate [Right Pulse Oximeter] 74 Respiratory Rate 20 20 20 Blood Pressure [Le ft Arm] Pulse Oximetry Oxygen Delivery Me thod 10/24/23 06:00 10/24/23 07:43 10/24/23 07:43 Temperature 98.3 F Pulse Rate [Right Pulse Oximeter] 85 85 Respiratory Rate 18 22 22 Blood Pressure [Le ft Arm] 167/70 H Pulse Oximetry 92 Oxygen Delivery Me thod Room Air 10/24/23 11:08 Temperature 97.9 F Pulse Rate [Right Pulse Oximeter] 78 Respiratory Rate 24 Blood Pressure [Le ft Arm] 145/61 H Pulse Oximetry 96 Oxygen Delivery Me thod Room Air Documenting provider has reviewed patient's vital signs: yes
--- NOTE | 2023-10-24 18:26 | PC.NURSE ---
End of Shift: Pt calm, cooperative, and pleasant. Pt vitally stable, lung sounds clear, BS active. Pt reported 6/10 pain, Tylenol and Oxycodone given once. Pt 1 assist with walker, sat in chair for meals. Tolerating regular diet, urinating well, and had one BM. Left rib Mepilex c/d/i.
[2023-10-24] MEDS: FERROUS SULFATE 325 MG TABLET PO (20:51)
[2023-10-24] MEDS: DULOXETINE 30 MG CAPSULE DR PO (20:51)
[2023-10-24] MEDS: ASCORBIC ACID 500 MG TABLET 1000 MG PO (20:52)
[2023-10-24] MEDS: ROSUVASTATIN CALCIUM 10 MG TABLET 5 MG PO (20:53)
[2023-10-24] MEDS: PARoxetine 20 MG TABLET 10 MG PO (20:54)
[2023-10-25 06:00] VITALS: RESP 18
[2023-10-25] MEDS: OXYCODONE 5 MG TABLET 2.5 MG PO (06:29)
[2023-10-25] MEDS: ACETAMINOPHEN 325 MG TABLET 650 MG PO (06:32)
--- NOTE | 2023-10-25 06:41 | PC.NURSE ---
End of shift note [id number]: Pt alert & oriented x 4 and able to make needs known. She transfers with SBA using FWW and GB. She has been mostly?continent of bladder though incontinent of bladder as well. IV to R FA patent and SL. VSS and pt has been afebrile throughout the shift. Pt has been using call light appropriately. Dressing covering abdominal wound noted to be C/D/I upon inspection. PRN Tylenol and Oxycodone administered this morning for what pt reported as 7/10 R leg pain after ambulating to and from bathroom. Pt requested bilateral TOMMIE stockings be removed early this morning though has since been agreeable to having TEDs put back on. Pt was educated regarding importance of wearing TOMMIE stockings.
--- NOTE | 2023-10-25 07:47 | P.DS_ITS ---
DS: Providers Provider Date Seen: 10/25/23 Date of admission: 10/22/23 12:03 Primary care physician: Kyle Healy MD Admitting Clinician: Alejandro Vasquez MD Attending Physician on discharge: Alejandro Vasquez MD Date of Discharge: 10/25/23 DS: Diagnosis Discharge Diagnosis (1) Acute UTI: Status: Acute Problem details: On admission it was unclear whether the UTI was the cause of her symptoms. Now with 3 days of antibiotic therapy and marked improvement in her mental status and mobility and improvement in her urinary incontinence I think it is likely that they acute UTI was the cause of the acute deterioration. Culture growing Klebsiella pneumonia susceptible to cephalosporins, not ampicillin or nitrofurantoin. (2) Metabolic encephalopathy: Status: Acute Problem details: On admission patient had increased confusion, forgetfulness, inability to ambulate. This is much improved in the last 2 days suggesting this was metabolic encephalopathy due to acute urinary tract infection. (3) Sciatica: Status: Acute Problem details: Has been on [place] prior to admission now on low-dose oxycodone. Will need physical therapy and optimally wean off of opioid pain medicines to maximize independent ambulation. Pain is much better since admission. Study: CT-Spine Lumbar W/IV-10/09/2023 2:34:37 PM Ordering Physician: BERTO Final Report: Indication: Right sciatica. Previous right femoral hematoma. Technique: CT of the lumbar spine was performed with intravenous contrast. Contrast: 83 cc Isovue 370. Comparison: None relevant available. Findings: Postsurgical changes of anterior and posterior fusion at L4-5. Lumbar vertebral body heights are maintained without fracture. Diffuse osteopenia. Moderate to severe multilevel disc height loss and degeneration. Prior posterior decompression at the L2, L3 and L4 levels. Moderate dextroconvex curvature. At L1-2, disc bulge results in [id number] spinal canal narrowing. Erfr-cc-[id number] left and mild right neural foraminal narrowing. At L5-S1, moderate to severe right and mild left neural foraminal narrowing secondary to disc bulge and facet hypertrophy. Impression: 1. No acute osseous injury within the lumbar spine. 2. Postsurgical change of the anterior and posterior fusion at L4-5. 3. Prior posterior decompression at L2, L3 and L4. 4. At L1-2, wkji-pj-qcejoluz spinal canal and left neural foraminal narrowing. 5. At L5-S1, moderate to severe right and mild left neural foraminal stenosis. (4) Fibromyalgia: Status: Acute Problem details: She is having generalized pain and generalized tenderness to palpation. Previous diagnosis of fibromyalgia. Start on pregabalin. Switch from paro xetine to duloxetine. Wean off opioids (5) Chronic pain: Status: Acute Problem details: She does have specific pain suggestive of sciatic on the right without obvious neurologic deficits. It appears fibromyalgia and rheumatoid arthritis pain are significant cause of pain as well. Started on Lyrica. Switch from paroxetine to duloxetine. Wean off low-dose oxycodone as pain allows. (6) Chronic anxiety: Status: Chronic Problem details: Improved during his hospital stay (7) Depression: Status: Acute Problem details: Switch from paroxetine to Cymbalta. (8) Rheumatoid arthritis: Status: Acute Problem details: Not obviously having inflammatory arthritis at this time. Continue prednisone and methotrexate (9) Generalized weakness: Status: Acute Problem details: Acute on chronic. Quite sedentary at baseline. Now with acute illness and metabolic encephalopathy from her UTI she had marked worsening. Now with treatment much better. Needs increased physical activity to improve mobility for independent living (10) Cognitive impairment: Status: Acute Problem details: Patient reports some increased confusion and forgetfulness. I observe some confusion over recent events. This has much improved since admission. Much of her confusion and forgetfulness is from her acute illness. [place] on 10/22/2023 is 23/30. 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 Patient has had multiple hospital admissions over the last 6 months: April 2023 she was hospitalized here for weakness. At that time there was concern of multifactorial weakness including some heart failure with severe aortic stenosis, COPD, UTI, type 2 non STEMI. She was admitted for a week, discharge to home, readmitted 2 days later with ongoing weakness and fever. She was transferred to [facility] because of her fever and heart disease. April 2023 hospitalized at [facility] after transfer from [facility] for fever and cardiac evaluation. Fever resolved spontaneously. She was deemed an appropriate candidate for TAVR. Discharge to [facility] facility for about 1 month. 06/16/2023 hospitalized at [place] for TAVR. Procedure went well. She reports resolution of her cardio-respiratory symptoms after TAVR. 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 Readmitted on June 21 for management of this. The hematoma has resolved but she still reporting pain in the area of her right groin, right abdomen, right thigh. Repeat CT imaging on October 09 2023 showed resolution of the hematoma. 10/09/2023 she was seen in our emergency department with 2 weeks of right low back pain radiating into her leg and foot. CT at that time showed moderate to severe right foraminal stenosis at L5-S1. Previous fusion at L4-5 and posterior decompression at L2-4. CT abdomen and pelvis showed no residual hematoma. She was given a course of prednisone for treatment of possible sciatica. She tells me now that it might have helped a little bit but she is unsure of this. She has been taking hydrocodone acetaminophen as needed for pain, she has had approximately 53 tablets in 24 days. She was prescribed physical therapy which is of uncertain benefit. The course of therapy has been completed. She reports no fever. She reports her breathing is better since her TAVR. She is having no chest pain. She reports a very poor appetite. She reports very poor sleep. She is having trouble falling asleep. She reports profound weakness. For at least 2 days she has been unable to get out of bed and go to the bathroom. She has been incontinent of urine in bed. She denies urinary frequency urgency or dysuria. Previous urinary tract infection in April grew Citrobacter resistant to cefazolin but susceptible to ceftriaxone. She reports that she is having generalized pain. She reports in ?hurting all over?. She also reports having pain in her low back radiating down her posterior lateral thigh and calf to her foot. She is not having any numbness that she is aware of. Her incontinence of urine was due to inability to get out of bed rather than inability to control her urine at all. October 21: Patient reports feeling a little better today. She reports having some low back pain. Sitting in the chair she says she has a little bit of numbness in her right foot but will not specify where. She is not having pain shooting down her right leg. She has had a low-grade fever this morning. She reports no cough shortness of breath new chest or abdominal pain. No urinary symptoms. She has been eating well this morning. She reports being more tearful today. October 22: Patient continues to report feeling better. Today she reports feeling stronger. She is now able to walk to the bathroom with standby assist. She is not aware of any fever. She has been eating well. She has got a little bit of cough and dyspnea with activity. She had minimal discomfort with ambulating with a walker. She feels like her lieu low back pain and sciatica is much better October 23: Patient continues to feel like she is getting better and stronger. She is eating well. She has no breathing problems though she does get dyspneic when she does walk. Poor exercise tolerance still present. Balance and streng th in her legs is much improved. Sciatica in her right leg is much better. It appears she has had 3 doses of oxycodone 2.5 mg in the last day. October 24: Patient continues to feel better. She did have an episode of pain in her left arm this morning and did take with oxycodone 2.5 for that. We did discuss weaning off opioids and she is in agreement with that plan but continues to have significant at episodes of pain. Continues to report weakness with ambulation. Still requiring standby assistance. Mood is better. Status at Discharge Cognitive/behavioral status at discharge: Cognition, mood, orientation are much improved compared to admission Overall status at discharge: patient is progressing back to baseline Time Spent with Patient Time attestation: Total time spent providing and/or coordinating discharge services: Time spent: Greater than 30 minutes Exam Narrative: Exam Narrative: She is alert and appears in no distress. Speech is normal. She is oriented to her circumstances. Mood and affect are bright. Breathing is unlabored. Lower extremities have full strength bilaterally. 1+ edema. Const: Vital Signs, click to edit/add: Vital Signs - 24 hr 10/24/23 11:08 10/24/23 15:10 10/24/23 15:10 Temperature 97.9 F 98.3 F Pulse Rate [Right Pulse Oximeter] 78 86 86 Respiratory Rate 24 18 18 Blood Pressure [Le ft Arm] 145/61 H 139/62 Pulse Oximetry 96 94 Oxygen Delivery Me thod Room Air Room Air 10/24/23 19:28 10/24/23 23:00 10/24/23 23:19 Temperature 98.2 F Pulse Rate [Right Pulse Oximeter] 80 80 Respiratory Rate 16 16 20 Blood Pressure [Le ft Arm] 145/56 H Pulse Oximetry 95 Oxygen Delivery Me thod Room Air Room Air 10/24/23 23:20 10/25/23 06:00 Temperature Pulse Rate [Right Pulse Oximeter] Respiratory Rate 20 18 Blood Pressure [Le ft Arm] Pulse Oximetry Oxygen Delivery Me thod Documenting provider has reviewed patient's vital signs: yes DS: Data Data Completed and Pending Completed studies during hospitalization: Procedures Drainage of Right Pleural Cavity, Percutaneous Approach, Diagnostic (12/21/21) Insertion of Infusion Device into Left Internal Jugular Vein, Percutaneous Approach (12/21/21) Introduction of Other Gas into Respiratory Tract, Via Natural or Artificial Opening (04/26/23) Discharge Plan Discharge Disposition: [facility] Date of Admission: 10/22/23 12:03 Attending Provider on Discharge: Alejandro Vasquez Consulting Providers: Renae Rosado Primary Care Provider: Kyle Healy Anticipated Discharge Date/Time: 10/25/23 09:00 Discharge Medications: New sennosides-docusate sodium [Stool Softener-Laxative] 8.6-50 mg Tablet 1 - 2 tab PO BID PRNQty: 100 0RF oxycodone 5 mg Tablet 2.5 mg PO Q4H PRN (Reason: Pain) Qty: 30 0RF pregabalin [Lyrica] 50 mg Capsule 50 mg PO BID Qty: 60 0RF cephalexin 500 mg capsule 500 mg PO TID Qty: 20 0RF duloxetine 60 mg capsule,delayed release(DR/EC) 60 mg PO DAILY Qty: 30 0RF diclofenac sodium [Voltaren Arthritis Pain] 1 % gel 2 g topical QID PRNQty: 100 0RF Rx Instructions: apply to single elbow, wrist or hand; for hand includes palm/fingers/back of hand Continued cholecalciferol (vitamin D3) 50 mcg (2,000 unit) capsule 50 mcg PO DAILY multivitamin Tablet 1 tab PO QAM ascorbic acid (vitamin C) 500 mg tablet 1 g PO DAILY methotrexate sodium 2.5 mg tablet 17.5 mg PO Q7D rosuvastatin 5 mg tablet See Rx Instructions .ROUTE .COMPLEX Qty: 90 3RF Dose Instruction: TAKE 1 TABLET BY MOUTH DAILY Rx Instructions: TAKE 1 TABLET BY MOUTH DAILY metoprolol succinate 25 mg tablet extended release 24 hr 25 mg PO BID Qty: 180 3RF furosemide 40 mg tablet 40 mg PO DAILY Qty: 90 3RF Eliquis 5 mg tablet 2.5 mg PO BID Qty: 90 3RF folic acid 1 mg tablet 3 mg PO DAILY Lactobacillus acidophilus 0.5 mg (100 million cell) tablet 1,000 mmu cells PO DAILY prednisone 5 mg tablet 7.5 mg PO DAILY ferrous gluconate 324 mg (38 mg iron) tablet 324 mg PO DAILY valganciclovir 450 mg tablet See Rx Instructions .ROUTE .COMPLEX Qty: 90 3RF Dose Instruction: TAKE 1 TABLET BY MOUTH DAILY Rx Instructions: TAKE 1 TABLET BY MOUTH DAILY Discontinued paroxetine HCl 20 mg tablet 20 mg PO DAILY Qty: 90 3RF hydrocodone-acetaminophen 5-325 mg tablet 1 tab PO Q6H PRN (Reason: pain) Qty: 56 0RF Discharge Orders: Discharge Order (Routine); Ordered 10/25/23 Ordered By: Alejandro Vasquez Activity Level: Weight Bearing as Tolerated and Use Walker Discharge Diet: Regular Follow Up Appointments: Kyle Healy MD [Primary Care Provider] - Forms: [facility] Info Instructions Admit to: SNF Discharge Potential: Good Length of Stay: <30 days Can use facility standing orders?: Yes Code Status: DNR/DNI TEDs: Bilateral Knee Rehab Potential: Good Therapy: Physical Therapy and Occupational Therapy Therapy Orders: Evaluate and Treat Oxygen: No Urinary Catheter: No
[2023-10-25] MEDS: FUROSEMIDE 40 MG TABLET PO (08:25)
[2023-10-25] MEDS: LACTOBACILLUS ACIDOPHILUS 1 TABLET 1 TAB PO (08:25)
[2023-10-25] MEDS: PREGABALIN 50 MG CAPSULE PO (08:26)
[2023-10-25] MEDS: MULTIVITAMIN/MINERALS 1 TABLET 1 TAB PO (08:26)
[2023-10-25] MEDS: cephALEXin 500 MG CAPSULE PO (08:26)
[2023-10-25] MEDS: METOPROLOL SUCCINATE (XL) 25 MG TAB PO (08:26)
[2023-10-25] MEDS: APIXABAN 5 MG TABLET 2.5 MG PO (08:26)
[2023-10-25] MEDS: FOLIC ACID 1 MG TABLET 3 MG PO (08:26)
[2023-10-25] MEDS: VALGANCICLOVIR 450 MG PO (08:27)
[2023-10-25] MEDS: predniSONE 5 MG TABLET 7.5 MG PO (08:27)
[2023-10-25 09:37] VITALS: BP 136/74; PULSE 81; RESP 16; TEMP 36.8; O2SAT 90
--- NOTE | 2023-10-25 10:25 | PC.SOCIAL ---
Discharge planning- Secure e-mailed updated progress note from the weekend to Bell Collins in admissions at [facility]. Bell informs that nursing has accepted pt for admission today. Phone call to pt's daughter Claribel and provided update. Pt's daughter would like to transport and can be to the hospital at 10:30 am. Provided update to charge nurse. Completed preadmission screening. Confirmation #[id number]. Secure e-mailed copy of PAS and discharge orders to Bell Collins in admissions at [facility]. Will follow up as needed.
--- NOTE | 2023-10-25 11:58 | PC.NURSE ---
Discharge - Pt alert, oriented to self, place, situation. RN noted disorientation to time. Pt up to chair with standby assistance, walker, gait belt. Tolerating RA, regular diet, fluids. Pt denied pain. Continent of bowel and bladder during shift. VSS, afebrile, denied SOB, nausea, vomiting. Wound care done by RN per order instructions. IV removed with catheter intact. Pt d/c'd to [facility] via wheelchair with daughter at approximately 1105.
== END 2023-10-25 11:05 | DRG 689 ==
LOC: ED 12:06 → MEDSURG 15:18
PROVIDERS: Admitting Provider Family Medicine; Emergency Provider Emergency Medicine; PCP Family Medicine; Visit Provider Family Medicine
DX: N39.0 Urinary tract infection, site not specified (principal); G93.41 Metabolic encephalopathy; L89.894 Pressure ulcer of other site, stage 4; D84.821 Immunodeficiency due to drugs; H30.892 Other chorioretinal inflammations, left eye; B25.8 Other cytomegaloviral diseases; E46 Unspecified protein-calorie malnutrition; B96.1 Klebsiella pneumoniae [K. pneumoniae] as the cause of diseases classified elsewhere; R32 Unspecified urinary incontinence; M54.31 Sciatica, right side; M79.7 Fibromyalgia; M48.07 Spinal stenosis, lumbosacral region; M51.37 Other intervertebral disc degeneration, lumbosacral region; G89.29 Other chronic pain; M06.9 Rheumatoid arthritis, unspecified; T45.1X5A Adverse effect of antineoplastic and immunosuppressive drugs, initial encounter; Z79.631 Long term (current) use of antimetabolite agent; G31.84 Mild cognitive impairment of uncertain or unknown etiology; J44.9 Chronic obstructive pulmonary disease, unspecified; E66.9 Obesity, unspecified; I12.9 Hypertensive chronic kidney disease with stage 1 through stage 4 chronic kidney disease, or unspecified chronic kidney disease; N18.31 Chronic kidney disease, stage 3a; I48.0 Paroxysmal atrial fibrillation; Z79.01 Long term (current) use of anticoagulants; F41.8 Other specified anxiety disorders; F32.A Depression, unspecified; Z86.711 Personal history of pulmonary embolism; I35.0 Nonrheumatic aortic (valve) stenosis; Z95.3 Presence of xenogenic heart valve; R60.0 Localized edema; F11.90 Opioid use, unspecified, uncomplicated; F10.21 Alcohol dependence, in remission
CPT/HCPCS: 36415; 80053; 81001; 83605; 84484; 85025; 87086; 87186; 87631; 93005; 97110; 97116; 97161; 97165; 97530; 97535; 99284; 99285; A9153; A9270; G0378; J0696; J7030; J7512

== ENCOUNTER 2023-10-26 09:10 | Outpatient (CLI) | payer MEDICARE, OTHER, SELFPAY | END 2023-10-26 09:11 | disposition home or self-care (01) | LOC: AMB 11-01 16:43 | PROVIDERS: PCP Family Medicine; Visit Provider Emergency Medicine | DX: R50.9 Fever, unspecified (principal); R53.1 Weakness; M54.9 Dorsalgia, unspecified | CPT/HCPCS: A0425; A0427 ==

== ENCOUNTER 2023-10-26 09:35 | Inpatient (IN) | payer MEDICARE, OTHER, SELFPAY ==
[2023-10-26] VITALS (27 sets, daily range): BP systolic 100–145; BP diastolic 43–74; PULSE 66–112; RESP 20; TEMP 36.8–39.6; O2SAT 88–98; BMI 34.0; BMI 34.2
--- NOTE | 2023-10-26 09:51 | CT_ITS ---
Patient: BRYCE STALLINGS Facility:?[facility] Patient ID:?[id number] Site Patient ID:?[id number]. Site :?[id number] Study:?CT-Chest PE W 95cc ISOVUE 370-10/26/2023 11:37:32 AM Ordering Physician:?DR. KEMP Final Report: Indication: Hypoxia, fever Technique: Volumetric multidetector CT images of the chest were obtained after the administration of IV contrast. 95 cc Isovue 370 low osmolar intravenous contrast Comparison: CT chest April 29, 2023 Findings: The thoracic inlet and thyroid gland are unremarkable. The thoracic aorta is nonaneurysmal with scattered atherosclerotic calcification and aortic valve prosthesis. Extensive coronary artery calcification is again seen. There is no central filling defect to suggest pulmonary embolism. There is no evidence of mediastinal, hilar or axillary adenopathy. Prominent paraspinous lymph nodes are again appreciated similar to remote comparison, slightly decreased in conspicuity from previous. There is mild to moderate central bronchial thickening. There are developing interstitial and ground-glass opacities within the bilateral upper lobes likely representing developing infiltrates with trace right basilar pleural effusion with adjacent compressive atelectasis and/or parenchymal scar. There is no pneumothorax. There is no evidence of pulmonary mass or suspicious pulmonary nodule. The partially visualized upper abdominal viscera are within normal limits. The thoracic vertebral body heights are stable from comparison with mildly exaggerated thoracic kyphosis. There are diffuse flowing anterior osteophytosis in syndesmophytes as well as extensive ossification of the interspinous ligament which can be seen in the setting of ankylosing spondylitis. Impression: [id number] interstitial and ground-glass opacities of the bilateral upper lobes which may represent developing edema and/or multifocal infiltrates with trace right basilar pleural effusion with adjacent compressive atelectasis and/or infiltrates. No evidence of pulmonary embolus. Please note that all CT scans at this facility use dose modulation, iterative reconstruction, and/or weight-based dosing when appropriate to reduce radiation dose to as low as reasonably achievable. Dictated by Ugo Carlisle MD @ 10/26/2023 12:13:58 PM Signed by:?Ugo Carlisle MD @10/26/2023 12:13:58 PM (Electronic Signature)
--- NOTE | 2023-10-26 09:52 | CT_ITS ---
Patient: BRYCE STALLINGS Facility:?[facility] Patient ID:?[id number] Site Patient ID:?[id number]. Site :?[id number] Study:?CT-Abdomen/Pelvis 95CC ISOVUE 370-10/26/2023 11:35:08 AM Ordering Physician:?DR. KEMP Final Report: Indication: Hypoxia, fever Technique: Volumetric multidetector CT images of the abdomen and pelvis were obtained after the administration of intravenous contrast. 95 cc Isovue 370 low osmolar intravenous contrast Comparison: CT abdomen and pelvis October 09, 2023 and June 21, 2023 Findings: There is demonstration trace right basilar pleural effusion with basilar atelectasis. The liver is normal in attenuation without intrahepatic biliary ductal dilatation. The portal vein is patent. There is prior cholecystectomy. There is no significant common biliary ductal dilatation or abrupt cut off. There is again seen a somewhat heterogeneous appearance of the spleen with splenic granulomas. Minimal perisplenic inflammatory changes are again seen similar to previous exam. The stomach and duodenum are grossly unremarkable. The pancreas is normal in enhancement without significant atrophy. The adrenal glands are unremarkable. There is prior left nephrectomy with stable appearance of the right kidney. Minimal cystic change of the superior pole of the right kidney with otherwise no evidence of obstructive uropathy or radiopaque calculus. There is fluid within the proximal colon with moderate stool in the distal colon. The central small bowel is decompressed. The appendix is unremarkable. There is no significant mesenteric, retroperitoneal, or pelvic sidewall lymph nodes. The aorta is nonaneurysmal. There is no significant atherosclerotic disease appreciated. There is a Oliveros catheter within the urinary bladder. Calcified fibroid uterus is again seen. The pelvic viscera are otherwise grossly within normal limits. There is no free fluid or free air. The anterior abdominal wall is intact without significant hernias. The lumbar vertebral body heights are stable from previous exam with pedicle screw and posterior stabilization fixation changes of the L4-L5 level. Anterior interbody fusion device is appreciated. Impression: Minimal nonspecific fluid appreciated within the proximal colon which may represent minimal colitis change. Moderate stool seen in the distal colon. Stable granulomas and hypodensities within the spleen with minimal chronic perisplenic inflammatory change within the adjacent fat. Prior left nephrectomy. Otherwise, no definite acute intra-abdominal abnormality is appreciated. Please note that all CT scans at this facility use dose modulation, iterative reconstruction, and/or weight-based dosing when appropriate to reduce radiation dose to as low as reasonably achievable. Dictated by Ugo Carlisle MD @ 10/26/2023 12:04:12 PM Signed by:?Ugo Carlisle MD @10/26/2023 12:04:12 PM (Electronic Signature)
--- OUTSIDE RECORDS SUMMARY | 2023-10-26 10:31 | XMS_ITS | Data Portability ---
Author Name Unknown Address [address] [place] [address] Phone [phone] Organization [facility], [facility] Address [address] [facility] [address] [place] [address] Assessment No assessment recorded. Plan of Treatment [...] with a nephrect gilmar. Lamont Bravo MD [address] [place] [address], [phone], [facility] 2 16:32:18 Recurrent urinary tract infection Active 022 Managed with daily Bactrim Lamont Bravo MD [address] [place] [address], [phone], [facility] 16:32:42 Problem Notes None recorded. Procedures Surgical History Date Name Laterality Status Provider Name and Address Organization Details Recorded Time 07/11/19 22 NEPHRECTOMY, HAND ASSISTED LAPAROSCOPIC (SURG) completed Mary moss [facility] 07/17/2021 09:46:04 Imaging Results None recorded. Procedure Notes None recorded. Medical Equipment None Reported. Allergies Allergen ID Allergen Name Allergen Category Reaction Reaction Severity Criticality Documentation Date Start Date Code Code System Note Provider Name and Address Organization Details Recorded Time 033528 Non-stero idal anti-infl ammatory agent (product) medicatio n Not available Not available Not available 03/20/2021 03874 005 SNOMED Lamont Bravo MD [address] [place] [address],[address] [place] [address], [phone], [facility] 1 16:22:56 729094 Levaquin medicatio n Not available Not available Not available 03/20/2021 89846 2 RxCarroll Bravo MD [address] [place] [address],[address], [place], [phone], [facility] 1 16:23:24 007491 levofloxa giorgio medicatio n other Not available Not available 08/11/20212021 46686 Bree Bravo MD [address] [place] [address],[address], [place], [address], [facility] 2 16:06:24 661550 terbinafi ne hydrochlo ride medicatio n fever headache Not available Not available Not available 08/11/20212019 59776 8 Bree Bravo MD [address] [place] [address],[address] [place] [address], [phone], [facility] 2 16:06:24 Medications Name Sig Start Date Stop Date Status Note LastModified by Organization Details LastModified Time compound drug active Not Available Not Available [...] Updated DateTime 03/20/2021 160.02 cm 33.7 kg/m2 60090.55 g Lamont Bravo MD [address] [place] [address],[address], [phone] [place] [address] Urology 03/20/2021 16:22:47 Date Recorded Body height Body mass index (BMI) Body weight Provider Name and Address Organization Details Last Updated DateTime 08/11/2021 160.02 cm 28.3 kg/m2 76250.78 g Lamont Bravo MD [address] [place] [address],[place] [phone] [place] [address] Urology 08/11/2021 16:06:06 Social History Question Answer Notes LastModified by Organizat ion Details LastModified Time Tobacco Smoking Status Never Smoker Lamont Bravo MD [address] [place] [address],[address], [phone] [place] [address] Urology 03/20/2021 16:24:21 What Is Your Level [...] polysaccharide PPV23 04/30/2010 completed Lamont Bravo MD [address] [place] [address],[address] [place] [address], [phone], [facility] 08/11/2021 16:07:09 Pneumococcal conjugate PCV 13 01/31/2015 completed Lamont Bravo MD [address] [place] [address],[address], [address], [facility] 08/11/2021 16:07:09 pneumococcal polysaccharide PPV23 03/28/2015 completed Lamont Bravo MD [address] [place] [address],[address], [phone], [facility] 08/11/2021 16:07:09 Pneumococcal conjugate PCV 13 03/28/2016 completed Lamont Bravo MD [address] [place] [address],[address], [address], [facility] 08/11/2021 16:07:10 pneumococcal polysaccharide PPV23 03/09/2016 completed Lamont Bravo MD [address] [place] [address],[address], [address], [facility] 08/11/2021 16:07:10 Past Encounters Encounter ID Performer Location Encounter Start Date Encounter Closed Date Diagnosis/Indication Diagnosis SNOMED-CT Code [id number] MD TAMIKA Hudson_Edinjuju [address] [place] [address] 03/20/2021 16:12:05 03/24/2021 11:06:39 Kidney stone [id number] [id number] MD Sondra Hudson [address] 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 Health Concerns Section Related Observation LastModified by Organization Detai ls LastModified Time None Recorded Concern Status LastModified by Organization Details LastModified Time None Recorded Advance Directives Directive None Recorded Payers Encounter Date Sequence Insurance Name Policy Number Policy Oshea Covered Member ID Oshea Member ID Guarantor Name 08/11/2021 1 [place]: [id number] Tanner James [id number] Tanner James 08/11/2021 2 [facility] (MEDICARE SUPPLEMENT) Tanner James [id number] Tanner James 03/20/2021 1 [place] [employer] Tanner James [id number] Tanner James 03/20/2021 2 [facility] (MEDICARE SUPPLEMENT) Tanner James [id number] Tanner James Notes Date Note Type Note Provider Name and Address Organization Details Recorded Time 03/20/2021 text/html HPI Notes: New patient here to discuss nephrectomy. She fell when she was at [place] and that led to a CT scan that showed an atrophic kidney and a staghorn stone. She's had recurrent pyelonephritis as well. She had ESWL in 2002. She also has a poor aortic valve. Lamont Bravo MD [address] [place] [address],[address] [place] [address], [phone], [facility] 03/20/2021 17:02:40 08/11/2021 text/html HPI Notes: She h as recovered well from surgery. 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 Lamont Bravo MD [address] [place] [address],[address], [place], [address], [facility] 08/11/2021 16:37:50 OBGyn Episode No OBEpisode recorded.
--- OUTSIDE RECORDS SUMMARY | 2023-10-26 10:32 | XMS_ITS | Encounter Summary ---
Author Name Unknown Organization [facility] Address [address], [place] [address] Care Team Providers Care Surgical Appliance Fitter Name Role Phone Basilio Healy MD Primary Care Provider [phone] Reason for Referral * (Routine) - New Request Specialty Diagnoses / Procedures Referred By Contac t Referred To Contact Diagnoses Rheumatoid arthritis involving multiple joints (HRC) Primary osteoarthritis of both knees Procedures Triamcinolone Acet Inj Nos: (per 10 mg) Man Sánchez MD [address] [place] [address] Referral ID Status Reason Start Date Expiration Date V isits Requested Visits Authorized [id number] New Request 08/09/2023 11/07/2024 1 1 CIATE PRINCIPAL Reason for Visit * Reason Comments Follow-up Encounter Details Date Type Department Care Team (Late st Contact Info) Description 08/09/2023 12:00 PM ASSOCIATE PRINCIPAL Office Visit [facility] [address] [place] [address] Man Sánchez MD [address] [place] [address] Rheumatoid arthritis involving multiple joints [...] Man Sánchez MD - 08/09/2023 12:00 PM ASSOCIATE PRINCIPAL Longstanding history of seronegative rheumatoid arthritis and [...] 4 months follow-up or sooner if needed. CIATE PRINCIPAL documented in this encounter Progress Notes * [...] went through rehab 2007 Gastritis 03/2009 Hypertension ([facility]) 04/13/2009 Kidney stone LBP (low back pain) Morbid obesity with BMI of 40.0-44.9, adult ([facility]) 11/15/2015 Pneumonia 12/10/2016 with PE Pulmonary embolism ([facility]) 12/14/2016 Rheumatoid arthritis(714.0) ([facility]) 12/25/2008 Shoulder impingement 04/03/2013 Past Surgical History: Procedure Laterality Date COLONOSCOPY W/ POLYPECTOMY ([facility]) 10/26/2018 2 specimens (5 polyp). 3 year follow up ESOPHAGOGASTRODUODENOSCOPY ([facility]) 04/14/09 eswl LUMBAR FUSION ([facility]) 04/2010 lami and fusion; Dr [...] HUT Reaction: GI Bleeding; HUT Severity: High; [facility] Noted: [id number] Levaquin [Levofloxacin] Other, see comments Muscles snapped [...] months follow-up or sooner if needed. Man Ramírez MD [facility] [place] 08/09/2023 This note consists of symbols derived from keyboarding, and voice recognition software. As a result, wrong word or '[id number]' substitutions may have occurred due to the inherent limitations of voice recognition software. There may be errors in the script that have gone undetected. Please consider this when interpreting information found in this chart. CIATE PRINCIPAL documented in this encounter Plan of Treatment Upcoming Encounters Date Type Department Care Team (Late st Contact Info) Description 10/26/2023 12:40 PM CDT [place]ment [place] [facility] [address] [place] [address] Shraa Mitchell MD [address] [place] [address] 10/28/2023 12:30 PM CDT Appointment [facility] [address] Pulmonary [address] [place] [address] 10/28/2023 1:45 PM CDT Office Visit [facility] Pulmonary Medicine [address] [place] [address] Shara Mitchell MD [address] [place] [address] [place] [address] 12/13/2023 1:00 PM CDT Appointment [facility] [address] [place] [address] Man Sánchez MD [address] [place], [place] [phone] documented as of this encounter Visit Diagnoses Diagnosis Rheumatoid arthritis involving multiple joints (HRC)- Primary High risk medication use Encounter for long-term (current) use of other medications Primary osteoarthritis of both knees Primary localized osteoarthrosis, lower leg Current chronic use of systemic steroids Age related osteoporosis, unspecified pathological fracture presence (HRC) documented in this encounter Care Teams Surgical Appliance Fitter Relationship Specialty Start Date End Date Basilio Healy MD [facility] [address] [place] [address] PCP - General Family Practice 10/28/22 documented as of this encounter
--- OUTSIDE RECORDS SUMMARY | 2023-10-26 10:32 | XMS_ITS ---
Author Name Unknown Organization [facility] Address [address] [place] [address] Care Team Providers Care Lieutenant Shift Supervisor Name Role Phone Unavailable Unavailable Unavailable Surgery Details Not on file Complications Check Surgery Details section. Procedure Estimated Blood Loss Check Surgery Details section. Procedure Findings Check Surgery Details section. Procedure Specimens Taken Check Surgery Details section.
--- OUTSIDE RECORDS SUMMARY | 2023-10-26 10:32 | XMS_ITS | Encounter Summary ---
Author Name Unknown Organization [facility] Address [address] [place] [address] Care Team Providers Care Core Finisher Name Role Phone Basilio Healy MD Primary Care Provider [phone] Encounter Details Date Type Department Care Team (Late st Contact Info) Description 08/20/2023 Telephone [facility] 39[facility] Pulmonary Medicine [address] [place], [place] [phone] Shara Mitchell MD [address] [facility] [address] [place], [place] [phone] Social History Tobacco Use Types Packs/Day Years [...] make a CT appointment before her follow-up OR DIRECTOR CREATIVE SERVICES * Yessenia Olivarez - 08/20/2023 4:00 PM [...] this imaging with us before her appt? OR DIRECTOR CREATIVE SERVICES documented in this encounter Plan of Treatment Upcoming Encounters Date Type Department Care Team (Late st Contact Info) Description 10/26/2023 12:40 PM CDT Appoint[place] [address] [place] [address] Shara Mitchell MD [address] [address] 10/28/2023 12:30 PM CDT Appointment [facility] Pulmonary Lab [address] [place] [address] 10/28/2023 1:45 PM CDT Office Visit [facility] [address] Pulmonary Medicine [address] [place] [address] Shara Mitchell MD [address] [address] 12/13/2023 1:00 PM CDT Appointment [place] [facility] [address] [place] [address] Man Sánchez MD [address] [place], [place] [address] documented as of this encounter Visit Diagnoses Not on filedocumented in this encounter Care Teams Core Finisher Relationship Specialty Start Date End Date Basilio Healy MD [facility] [address] [place] [address] PCP - General Family Practice 10/28/22 documented as of this encounter
--- OUTSIDE RECORDS SUMMARY | 2023-10-26 10:32 | XMS_ITS | Encounter Summary ---
Author Name Unknown Organization [facility] Address [address] [place] [address] Care Team Providers Care Sand Bobber Name Role Phone Elsewhere, Pcp Primary Care Provider Unavailabl e Reason for Visit * Reason Onset Date Comments Cardiac Rehab 07/06/2023 Encounter Details Date Type Department Care Team (Late st Contact Info) Description 07/06/2023 Clinical Communication Department of Family Medicine in [place], [place] [address] [place] [phone] Louie Malagon M.D. [address] [place] [phone] Cardiac Rehab Social History Tobacco Use Types [...] often do you attend chur ch or adventist services? Never 08/12/2022 Do you belong to [...] and heating? Not hard at all 08/12/2022 [facility] - [...] place to sleep or slept in a long-term (including now)? No 08/12/2022 Nutrition Answer Date [...] Samanta Leigh R.N. - 08/03/2023 1:32 PM RETORT LOADER I contacted Es to discuss. She is [...] by: Samanta Leigh R.N. 08/03/23 1:35 PM RETORT LOADER RT LOADER * Telephone Encounter - Samanta Leigh R.N. - 07/06/2023 2:14 PM RETORT LOADER Cardiac rehab referral received on 07/06/23. 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 Compression treatment was unsuccessful. Pt underwent vascular surgical repair on 06/23/23. I contacted patient to determine if she is currently at a senior living facility or at home. Advised to contact our office at her convenience. Electronically signed by: Samanta Leigh R.N. 07/06/23 2:21 PM RETORT LOADER RT LOADER documented in this encounter Plan of Treatment Not on file documented as of this encounter Visit Diagnoses Not on filedocumented in this encounter Care Teams Sand Bobber Relationship Specialty Start Date End Date Elsewhere, Pcp PCP - General 12/24/20 documented as of this encounter
--- OUTSIDE RECORDS SUMMARY | 2023-10-26 10:32 | XMS_ITS | Encounter Summary ---
Author Name Unknown Organization [facility] Address [address] [place] [address] Care Team Providers Care Patternmaker Bench Name Role Phone Basilio Healy MD Primary Care Provider [phone] Encounter Details Date Type Department Care Team (Latest Contact Info) Description 09/02/2023 Orders Only [facility] ProviderWendy [place] [address] Social History Tobacco Use Types Packs/Day Years [...] Info) Description 10/26/2023 12:40 PM CD[place] [address] [place] [address] Shara Mitchell MD [address] [place] [address] [place] [address] 10/28/2023 12:30 PM CDT Appointment [facility] 3931 Pulmonary Lab [facility] [place] [address] 10/28/2023 1:45 PM CDT Office Visit [facility] Pulmonary Medicine [address] [place] [address] Shara Mitchell MD [address] [facility] [address] [place], [place] [address] 12/13/2023 1:00 PM CDT Appointment [place] [facility] [address] [place] [address] Man Sánchez MD [address] [place], [place] [phone] documented as of this encounter Procedures Procedure Name Priority Date/Time Associated Diagnosis Comments LABORATORY REPORT 09/02/2023 documented in this encounter Results * LABORATORY REPORT (09/02/2023) Interface Provider DUMMY/OTHER/AR documented in this encounter Visit Diagnoses Not on filedocumented in this encounter Care Teams Patternmaker Bench Relationship Specialty Start Date End Date Basilio Healy MD [facility] [address] [place] [address] PCP - General Family Practice 10/28/22 documented as of this encounter
--- OUTSIDE RECORDS SUMMARY | 2023-10-26 10:32 | XMS_ITS | Clinical Summary ---
Author Name Unknown Organization [facility] Address [address] [place] [address] Care Team Providers Care Character Actor Name Role Phone Elsewhere, Pcp Primary Care Provider Unavailabl e Source Comments Patient records contain information from all sites at [facility]. For routine questions regarding patient records, call [phone] during business hours, M-F 8:00 AM - 5:00 PM Central Time. Record requests for emergency care only can be directed to [phone] at any time.[facility] Allergies Active Allergy Reactions Criticality Noted Date [...] How often do you attend chur or confucianism services? Never 08/12/2022 Do you belong to any clubs o r organizations such as episcopal groups, unions, fraternal or athletic groups, or [...] and heating? Not hard at all 08/12/2022 [facility] - Occupational Stress Questionnaire Answer Date Recorded [...] 36.1 ??C (97 ??F) 08/17/2022 10:57 AM EXPERIENCE DESIGNER Respiratory Rate 18 01/09/2022 8:24 AM CDT [...] METABOLIC PANEL, S/P Routine 07/27/2023 11:41 AM EXPERIENCE DESIGNER BI BREAST SCREENING BILATERAL WITH TOMOSYNTHESIS Routine 02/08/2019 1:03 PM CDT from Last 3 Months or Most Recently Relevant to Health Maintenance Advance Directives For more information, please contact: [phone] * DNR/DNI (Latest Code Status on File) Date Activated Date Inactivated Comments 12/28/2021 12:42 PM 01/09/2022 1:10 PM * DNR/DNI Date Activated Date Inactivated Comments 12/23/2020 8:47 PM 12/25/2020 5:38 PM * Full Code Date Activated Date Inactivated Comments 12/23/2020 8:20 PM 12/23/2020 8:47 PM Question Answer Comments Full Code: Discussed Care Teams Character Actor Relationship Specialty Start Date End Date Elsewhere, Pcp PCP - General 12/24/20
--- OUTSIDE RECORDS SUMMARY | 2023-10-26 10:32 | XMS_ITS | Referral Summary ---
Author Name Unknown Organization [facility] Address [address] [place] [address] Care Team Providers Care Tie Knitter Helper Name Role Phone Elsewhere, Pcp Primary Care Provider Unavailabl e Source Comments Patient records contain information from all sites at [facility]. For routine questions regarding patient records, call [phone] during business hours, M-F 8:00 AM - 5:00 PM Central Time. Record requests for emergency care only can be directed to [phone] at any time.[facility] Allergies Active Allergy Reactions Criticality Noted Date [...] How often do you attend chur or spiritism services? Never 08/12/2022 Do you belong to any clubs o r organizations such as spiritism groups, unions, fraternal or athletic groups, or [...] and heating? Not hard at all 08/12/2022 [facility] [place] [facility] - Occupational Stress Questionnaire Answer Date Recorded [...] place to sleep or slept in a prison (including now)? No 08/12/2022 Nutrition Answer Date [...] 36.1 ??C (97 ??F) 08/17/2022 10:57 AM RESIDENT CARE ASSOCIATE Respiratory Rate 18 01/09/2022 8:24 AM CDT [...] METABOLIC PANEL, S/P Routine 07/27/2023 11:41 AM RESIDENT CARE ASSOCIATE BI BREAST SCREENING BILATERAL WITH TOMOSYNTHESIS Routine 02/08/2019 1:03 PM CDT from Last 3 Months or Most Recently Relevant to Health Maintenance Advance Directives For more information, please contact: [phone] * DNR/DNI (Latest Code Status on File) Date Activated Date Inactivated Comments 12/28/2021 12:42 PM 01/09/2022 1:10 PM * DNR/DNI Date Activated Date Inactivated Comments 12/23/2020 8:47 PM 12/25/2020 5:38 PM * Full Code Date Activated Date Inactivated Comments 12/23/2020 8:20 PM 12/23/2020 8:47 PM Question Answer Comments Full Code: Discussed Care Teams Tie Knitter Helper Relationship Specialty Start Date End Date Elsewhere, Pcp PCP - General 12/24/20
--- OUTSIDE RECORDS SUMMARY | 2023-10-26 10:32 | XMS_ITS | Encounter Summary ---
Author Name Unknown Organization [facility] Address [address] [place] [address] Care Team Providers Care Library Circulation Department Chief Name Role Phone Basilio Healy MD Primary Care Provider [phone] Reason for Visit * Reason Comments Refill Encounter Details Date Type Department Care Team (Late Contact Info) Description 02/06/2016 Refill [facility] [address] Rheumatology [address] [facility] [place], [place] [phone] Swapnil Henley MD [address] [place] [address] Refill Social History Tobacco Use Types Packs/Day Years Used Date Smoking Tobacco: Never Assessed Sex and Gender Information Value Date Recorded Sex Assigned at Not on file Gender Identity Not on file Sexual Orientation Not on file documented as of this encounter Plan of Treatment Upcoming Encounters Date Type Department Care Team (Late Contact Info) Description 10/26/2023 12:40 PM CDT [place] [address] [place] [address] Shara Mitchell MD [address] [facility] [address] [place] [address] 10/28/2023 12:30 PM CDT Appointment [facility] 3931 Pulmonary Lab [address] [place] [address] 10/28/2023 1:45 PM CDT Office Visit [facility] 3931 Pulmonary Medicine [address] [place] [address] Shara Mitchell MD [address] [facility] [address] [place], [place] [address] 12/13/2023 1:00 PM CDT Appointment [place] [facility] [address] [place] [address] Man Sánchez MD [address] [place], [place] [phone] documented as of this encounter Visit Diagnoses Not on filedocumented in this encounter Care Teams Library Circulation Department Chief Relationship Specialty Start Date End Date Basilio Healy MD [facility] BY [facility] [address] [place] [address] PCP - General Family Practice 10/28/22 documented as of this encounter
--- OUTSIDE RECORDS SUMMARY | 2023-10-26 10:32 | XMS_ITS | Clinical Summary ---
Author Name Unknown Organization [facility] Address [address] [place] [address] Care Team Providers Care Fruit Preserver Name Role Phone Basilio Healy MD Primary Care Provider [phone] Source Comments You are receiving this document as you are listed as the primary care provider,follow-up provider, or the patient has been referred to you for consultation.This is in compliance with the Medicare and[facility] EHR Incentive Program,which states Providers who transition their patient to another setting of careor provider of care or refers their patient to another provider of care shouldprovide summary care record for each transition of care or referral. [employer] Allergies Active Allergy Reactions Criticality Noted Date [...] Patient receives drug assistance for Enbrel from [employer]. 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 Patient discontinued 05/2012. 12/20/2012 start venlafaxine 37.5mg Osteopenia 12/07/2011 Overview: Welding Machine Operator/Tender wants patient to be on alendronate indefinitely [...] 04/21/2010 Overview: HGB 9.6 ON ADMIT TO [facility] 03/2009; ENDOSCOPY REVEALED SHALLOW GASTRIC ULCERATIONS [...] Telephone [facility] Pulmonary Medicine [address] [place], [place] [id number] Shara Mitchell MD 08/09/2023 12:00 PM POLICY AND PLANNING MANAGER Office Visit [facility] [address] [place], [place] [phone] Man Sánchez MD Rheumatoid arthritis involving multiple joints (HRC) (Primary Dx); High risk medication use; Primary osteoarthritis of both knees; Current chronic use of systemic steroids; Age related osteoporosis, unspecified pathological fracture presence (HRC) from Last 3 Months Immunizations Name Administration Dates Next Due Flu Vac (3+ yrs) 04/03/2013, 2,04/30/2010, 009,04/10/2003 Flu Vac Preserv Free (3+yrs) 04/30/2010,04/15/20 09 HepA Adult (19+ yrs) 10/20/2004,03/07/2004 HepA Ped/Adol (1-18 yrs) 10/20/2004 HepA, Pediatric (DO NOT USE; for MIIC only) 10/20/2004 IPV (Polio) 03/07/2004 Influenza (Fluad) 04/19/2018 Influenza IIV3 (Trivalent) F kelly Highdose, 65+ Yrs (71756) 04/25/2019,03/09/2016,03/30/2014 Influenza IIV4 (Quadrivalent ) 0.5mL (02385) 04/23/2021,04/25/2019,04/19/2018, 016,03/30/2014,04/03/2013,04/15/2012,08/2009,04/15/2009,04/10/2003 Influenza IIV4 (Quadrivalent ) Fluzone, [...] Comments Blood Pressure 135/72 07/18/2019 3:38 PM POLICY AND PLANNING MANAGER Pulse 104 10/22/2022 1:45 PM CDT Temperature [...] Info) Description 10/26/2023 12:40 [place] [facility] [address] [place] [address] Shara Mitchell MD [address] [phone] 10/28/2023 12:30 PM CDT Appointment [facility] [address] [place] [phone] 10/28/2023 1:45 PM CDT Office Visit [facility] [address] Pulmonary [address] [place] [address] Shara Mitchell MD [address] [phone] 12/13/2023 1:00 PM CDT Appointment [facility] [address] [place] [address] Man Sánchez MD [address] [place], [place] [phone] Health Maintenance Due Date Last Done Comments Medicare Annual Wellness Visit 1945 COVID-19 Vaccine ( season) 2023 03/24/2022, 05/02/2021, 09/10/2020, Additional history exists Colonoscopy 10/27/2023 10/26/2018 (Comp leted), 11/12/2008 (Completed) Dexa 10/07/2024 10/07/2022 DTaP/Tdap/Td (3 - Tdap) 12/23/2030 12/24/19 21, 05/28/2012, 03/15/2003 IPV (Polio) Aged Out 03/07/2004, 03/07/2004 No lo nger eligible based on patient's age to complete this topic HepA Completed 10/20/2004, 09/27, 10/20/2004, Additional history exists Hep C Screening (Preventive Services) Completed 12/12/2015 Pneumococcal 65+ Yrs Completed 03/28/2016, 03/09/2016, 03/28/2015, Additional history exists Influenza Completed 04/15/2023, 11/0 12/2021, 04/23/2021, Additional history exists HepB Aged [...] RSLT - CREATININE Routine 08/24/2023 2:15 PM POLICY AND PLANNING MANAGER EXT RSLT - AST Routine 08/24/2023 2:15 PM POLICY AND PLANNING MANAGER EXT RSLT - ALT Routine 08/24/2023 2:15 PM POLICY AND PLANNING MANAGER EXT RSLT - WHITE BLOOD CELL COUNT (WBC) Routine 08/24/2023 2:15 PM POLICY AND PLANNING MANAGER EXT RSLT - HEMOGLOBIN Routine 08/24/2023 2:15 PM POLICY AND PLANNING MANAGER EXT RSLT - PLATELET COUNT Routine 08/24/2023 2:15 PM POLICY AND PLANNING MANAGER DXA BONE DENSITY SPINE/HIP INC VERT FX [...] * Creatinine (Ext Rslt) (08/24/2023 2:15 PM POLICY AND PLANNING MANAGER) EXT RSLT - CREATININE 1.0 0.5 - 1.0 mg/dL PN EXTERNAL LAB-SEE SCANNED DOCUMENT 08/24/2023 2:15 PM POLICY AND PLANNING MANAGER Man Sánchez MD LAB EXTERNAL RESULT Performing Organization Address [facility] de Phone Number PN EXTERNAL LAB-SEE SCANNED DOCUMENT Do Not Mail * White Blood Cell Count (WBC) (Ext Rslt) (08/24/2023 2:15 PM POLICY AND PLANNING MANAGER) EXT RSLT - WBC 9.16 4.50 - 11.0 K/uL PN EXTERNAL LAB-SEE SCANNED DOCUMENT 08/24/2023 2:15 PM POLICY AND PLANNING MANAGER Man Sánchez MD LAB EXTERNAL RESULT Performing Organization Address [facility] de Phone Number PN EXTERNAL LAB-SEE SCANNED DOCUMENT Do Not Mail * Hemoglobin (Ext Rslt) (08/24/2023 2:15 PM POLICY AND PLANNING MANAGER) EXT RSLT - HGB 12.8 12.0 - 16.0 gm/dL PN EXTERNAL LAB-SEE SCANNED DOCUMENT 08/24/2023 2:15 PM POLICY AND PLANNING MANAGER Man Sánchez MD LAB EXTERNAL RESULT Performing Organization Address [facility] Co de Phone Number PN EXTERNAL LAB-SEE SCANNED DOCUMENT Do Not Mail * (ABNORMAL) Platelet Count (Ext Rslt) (08/24/2023 2:15 PM POLICY AND PLANNING MANAGER) Pathologist [facility] EXT RSLT - PLATELET COUNT 96(L) 140 - 440 K/uL PN EXTERNAL LAB-SEE SCANNED DOCUMENT 08/24/2023 2:15 PM POLICY AND PLANNING MANAGER Man Sánchez MD LAB EXTERNAL RESULT Performing Organization Address [facility] Co de Phone Number PN EXTERNAL LAB-SEE SCANNED DOCUMENT Do Not Mail * (ABNORMAL) AST (Ext Rslt) (08/24/2023 2:15 PM POLICY AND PLANNING MANAGER) Pathologist [facility] EST RSLT - AST 39(H) 12 - 35 U/L PN EXTERNAL LAB-SEE SCANNED DOCUMENT 08/24/2023 2:15 PM POLICY AND PLANNING MANAGER Man Sánchez MD LAB EXTERNAL RESULT Performing Organization Address [facility] Co de Phone Number PN EXTERNAL LAB-SEE SCANNED DOCUMENT Do Not Mail * ALT (Ext Rslt) (08/24/2023 2:15 PM POLICY AND PLANNING MANAGER) Pathologist [facility] EXT RSLT - ALT 31 4 - 35 U/L PN E XTERNAL LAB-SEE SCANNED DOCUMENT 08/24/2023 2:15 PM POLICY AND PLANNING MANAGER Man Sánchez MD LAB EXTERNAL RESULT Performing Organization Address [facility] de Phone Number PN EXTERNAL LAB-SEE SCANNED DOCUMENT Do Not Mail * DXA Bone Density Spine/Hip Inc Vert FX Assess (10/07/2022 3:48 PM CDT) [facility] DXA Hip Left Bone Mineral Density 0.825 [...] not included. Patient Name: Tanner James Densitometer: [employer] W Appt Dept/Resource: Granda Bone Density GRANDA [...] trabecular bone, and is derived from the [id number] changes of bone density embedded in the [...] Performed by Real Time PCR CLIA Number [id number] HCV Quant iu/ml <12 IU/ml HP CONVERSION Comment:CLIA Number [id number] HCV Quant Log iu/ml <1.08 Log IU/ml HP CONVERSION Comment: Performed at [facility], [address] [place] [address] ??[id number] CLIA Number [id number] 12/12/2015 11:4 4 AM CDT 12/12/2015 3:01 PM CDT Swapnil Henley MD LAB_1 HP CONVERSION from Last 3 Months or Most Recently Relevant to Health Maintenance Advance Directives Documents on File Type Date Recorded Patient Manager Wastewater Expl anation POLST 02/02/2017 01/05/2017 Care Teams Fruit Preserver Relationship Specialty Start Date End Date Basilio Healy MD [facility] [address] [place] [address] PCP - General Family Practice 10/28/22
--- OUTSIDE RECORDS SUMMARY | 2023-10-26 10:32 | XMS_ITS | Clinical Summary ---
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 Patient discontinued 05/2012. 12/20/2012 start venlafaxine 37.5mg Osteopenia 12/07/2011 05/05/2023 Overview: Arts Therapist wants patient to be on alendronate indefinitely [...] 04/21/2010 Overview: HGB 9.6 [facility] 03[facility]; ENDOSCOPY REVEALED SHALLOW GASTRIC ULCERATIONS WITH [...] Department Care Team Description 07/27/2023 4:20 PM DOOR OPERATOR Office Visit [facility] [address] [place] [address] Marcos, Vsrg 07/27/2023 1:00 PM DOOR OPERATOR Office Visit [facility] [address] [phone] Rehan Alarcon, HERNAN CV Valve Est (VALVE EST: 30 DAY F/U S/P TAVR, LABS, CT MORPH, & TTE PRIOR, NEEDS EKG, KCCQ12, 5M WALK, LETTER SENT, JLS//PCP: Kyle Healy MD/) 07/27/2023 11:30 AM DOOR OPERATOR - 07/27/2023 11:59 PM DOOR OPERATOR Hospital Encounter [facility] [address] [place] [address] Rehan Alarcon NP Severe aortic stenosis 07/27/2023 11:20 AM DOOR OPERATOR Orders Only [facility] [address] [phone] Lab (/) 07/27/2023 Travel from Last 3 Months Immunizations Name [...] Comments Blood Pressure 159/76 07/27/2023 1:14 PM DOOR OPERATOR Pulse 52 07/27/2023 1:14 PM DOOR OPERATOR Temperature 36.4 ??C (97.6 ??F) 07/01/2023 8:06 AM CS T Respiratory Rate 16 07/09/2023 3:27 PM DOOR OPERATOR Oxygen Saturation 97% 07/27/2023 1:14 PM DOOR OPERATOR Inhaled Oxygen Concentration - - Weight 80.3 kg (177 lb) 07/27/2023 1:14 PM DOOR OPERATOR Height 160 cm (5' 3) 07/27/2023 1:14 PM DOOR OPERATOR Body Mass Index 31.35 07/27/2023 1:14 PM DOOR OPERATOR Plan of Treatment Health Maintenance Due Date [...] 50+ (1 of 2) 06/27/2025 Postponed from 1966 (Other) Tdap Completed 05/28/2012 Pneumococcal series for age 65+ Completed 03/28/2016, 03/09/2016, 03/28/2015, Additional history exists DEXA/DXA scan for age 65+ Completed 2017, 02/27/2015, 11/26/2011 Medical Devices Implanted Type Area Librarian Assistant Device Identifier Shelf Expiration Date Model / Serial / Lot Screw Tsrh Og Thin 6.5x50mm - [id number] Implanted:Qty: 3 on 04/28/2010 at [facility] N/A: Spine SOF[employer]ANEK [id number]# / / Screw Locking 4x20mm Fine Tip Titnm - [id number] Implanted:Qty: 4 on 04/28/2010 at [facility] [employer] 04.802.211 # / / Screw Thin Crest 6.5x45mm - [id number] Implanted:Qty: 1 on 04/28/2010 at [facility] [id number]# / / Set Screw 3dx - [id number] Implanted:Qty: 4 on 04/28/2010 at [facility] [id number]# / / Cnnctr Tsrh 3dx Sm - [id number] Implanted:Qty: 4 on 04/28/2010 at [facility] Medtronic [id number]# / / Iros 3.5cmx5.5mm Pre-Cut - [id number] Implanted:Qty: 2 on 04/28/2010 at [facility] [id number]# / / Kit Infuse Md - [id number] Implanted:Qty: 1 on 04/28/2010 at [facility] Spine [employer]OR DANEK 10/26/2012 [id number]# / / [id number] Filler Bio [id number] 5 - [id number] Implanted:Qty: 1 on 04/28/2010 at [facility] CORONA DAMON [id number]# / / [id number] Synfix Lr 26mm Implanted:Qty: 1 on 04/28/2010 at [facility] Spine [employer] 08.802.017 S / / [id number] Description:SYNFIX LR 26MM Procedures Procedure Name Priority Date/Time Associated Diagnosis Comments EKG 12 LEAD Routine 07/27/2023 1:13 PM DOOR OPERATOR S/P TAVR (transcatheter aortic valve replacement) CT CARDIAC MORPHOLOGY W DUAL READ Routine 07/27/2023 12:56 PM DOOR OPERATOR Severe aortic stenosis PLATELET ESTIMATE Routine 07/27/2023 11: 41 AM DOOR OPERATOR Severe aortic stenosis CBC W PLT NO DIFF Routine 07/27/2023 11: 41 AM DOOR OPERATOR Severe aortic stenosis BASIC METABOLIC PANEL Routine 07/27/2023 11:41 AM DOOR OPERATOR Severe aortic stenosis XR DXA BONE DENSITY 2 SITES AXIAL Routine 02/02/2018 3:00 PM CDT Disorder of bone Osteopenia, unspecified location from Last 3 Months or Most Recently Relevant to Health Maintenance Results * CT CARDIAC MORPHOLOGY W DUAL READ (07/27/2023 12:56 PM DOOR OPERATOR) Anatomical Region Laterality Modality HEART Computed Tomogra phy Impressions 07/28/2023 6:54 AM DOOR OPERATOR ?? 2+ HALT of the noncoronary cusp [...] Normal global systolic function. Ralph Hernandez MD JRL/car For Patients: As a result of the [...] conjunction with the services provided by the [facility] ([facility]). CLINICAL HISTORY: ??Cardiac over-read. FINDINGS/IMPRESSION: ??No pathologic adenopathy in the [id number]. No hiatus hernia. No significant finding in [...] [email or web address] SDS/sp / Narrative 07/28/2023 6:54 AM DOOR OPERATOR Results are automatically released to your [employer]) account once available, in compliance with federal [...] for HALT. SCAN QUALITY: ??Good. Rehan Alarcon TRANSPORT PILOT CT * (ABNORMAL) PLATELET ESTIMATE (07/27/2023 11:41 AM DOOR OPERATOR) PLATELET ESTIMATE Decreased (A) Adequate, No estimate 07/27/2023 12:44 PM [facility] Blood BLOOD SPECIMEN / Unknown Venipuncture / Unknown 07/27/2023 11:41 AM DOOR OPERATOR 07/27/2023 11:48 AM DOOR OPERATOR Narrative [facility] - 07/27/2023 12:44 PM DOOR OPERATOR This procedure was originally ordered at [facility]. Rehan Alarcon NP HEMATOLOGY [facility] [address] [place] [address], * (ABNORMAL) CBC W PLT NO DIFF (07/27/2023 11:41 AM DOOR OPERATOR) Pathologist [facility] WHITE BLOOD COUNT 7.7 4.5 - 11.0 thou/cu mm 07/27/2023 12:44 PM [facility] RED BLOOD COUNT 4.15 4.00 - 5.20 mil/cu mm 07/27/2023 12:44 PM [facility] HEMOGLOBIN 12.7 12.0 - 16.0 g/dL 07/27/2023 12:44 PM [facility] HEMATOCRIT 40.9 33.0 - 51.0 % 07/27/2023 12:44 PM [facility] MCV 99 80 - 100 fL 07/27/2023 12:44 PM [facility] MCH 30.6 26.0 - 34.0 pg 07/27/2023 12:44 PM [facility] MCHC 31.1(L) 32.0 - 36.0 g/dL 07/27/2023 12:44 PM [facility] RDW 15.6(H) 11.5 - 15.5 % 07/27/2023 12:44 PM [facility] PLATELET COUNT 95(L) 140 - 440 thou/cu mm 07/27/2023 12:44 PM [facility] MPV 11.6(H) 6.5 - 11.0 fL 07/27/2023 12:44 PM [facility] NRBC 0.0 % 07/27/2023 12:44 PM [facility] ABS NRBC 0.0 thou /cu mm 07/27/2023 12:44 PM [facility] Blood BLOOD SPECIMEN / Unknown Venipuncture / Unknown 07/27/2023 11:41 AM DOOR OPERATOR 07/27/2023 11:48 AM DOOR OPERATOR [facility] - 07/27/2023 12:44 PM DOOR OPERATOR This procedure was originally ordered at [facility]. Rehan Alarcon NP HEMATOLOGY [facility] [address] [place] [address], * (ABNORMAL) BASIC METABOLIC PANEL (07/27/2023 11:41 AM DOOR OPERATOR) SODIUM 139 136 - 145 mmol/L 07/27/2023 12:20 PM [facility] POTASSIUM 4.2 3.5 - 5.1 mmol/L 07/27/2023 12:20 PM [facility] CHLORIDE 102 98 - 107 mmol/L 07/27/2023 12:20 PM [facility] CO2,TOTAL 28 22 - 29 mmol/L 07/27/2023 12:20 PM [facility] ANION GAP 9 5 - 18 07/27/2023 12:20 PM [facility] GLUCOSE 110(H) 70 - 99 mg/dL 07/27/2023 12:20 PM [facility] CALCIUM 9.0 8.8 - 10.2 mg/dL 07/27/2023 12:20 PM [facility] BUN 32(H) 8 - 23 mg/dL 07/27/2023 12:20 PM [facility] CREATININE 1.25(H) 0.50 - 0.90 mg/dL 07/27/2023 12:20 PM DOOR OPERATOR [facility] BUN/CREAT RATIO 26(H) 10 - 20 12:20 PM DOOR OPERATOR [facility] eGFR 45(L) >90 mL/min/1.7 3m2 07/27/2023 12:20 PM [facility] Comment:As of 2021, eG FR is calculated by the CKD-EPI creatinine equation without race adjustment. ??eGFR can be influenced by muscle mass, exercise, and diet. ??The reported eGFR is an estimation only and is only applicable if the renal function is stable. Blood BLOOD SPECIMEN / Unknown Venipuncture / Unknown 07/27/2023 11:41 AM DOOR OPERATOR 07/27/2023 11:48 AM DOOR OPERATOR Rehan Alarcon NP CHEMISTRY Performing Organization Address City/State/[facility] Co de Phone Number [facility] [address] [address], * XR DXA BONE DENSITY 2 SITES AXIAL (02/02/2018 3:00 PM CDT) Anatomical Region Laterality Modality Spine, HIPS, HIPL, HIPR Other 02/02/2018 3:41 PM CDT Narrative 02/02/2018 3:44 PM CDT EXAM: XR DXA BONE DENSITY 2 SITES AXIAL INDICATION: Disorder of bone. ??Osteopenia. ??Postmenopausal. TECHNIQUE: Standardized bone density measurements were obtained using the [employer] bone densitometry system. COMPARISON: None. FINDINGS: SPINE: [...] bone density measurements were obtained using the [employer] bone densitometry system. COMPARISON: None. FINDINGS: SPINE: [...] Documents on File Type Date Recorded Patient Cord Splicer Expl anation POLST 04/29/2021 POLST 02/02/2017 1:11 [...] Code Status Discussion: Reviewed Preferences Care Teams Oncology Rn Relationship Specialty Start Date End Date Kyle Healy MD [address] [place] [address] PCP - General Family Practice 07/14/23 Swapnil Henley MD Rheumatology 12/20/12 Marlys Woodruff, RD [address] [place], [place] [address] Registered Dietitian Public Finance Specialist 07/05/18 Funmi Medina, ANGEL [address] [place] [address] Occupational Therapy 05/11/23 Mary Carpio Cardiology - Interventional 01/12/18 DR. Luo Dentistry - General 01/12/18
[2023-10-26 10:40] LABS: HCO3 VBG 29 mmol/L (21-28); PCO2 VBG 45 mmHG (40-50); PO2 VBG < 30.1 mmHG (25-47); pH VBG 7.417 (7.32-7.43)
[2023-10-26] MEDS: ACETAMINOPHEN 500 MG TABLET 1000 MG PO (10:48)
[2023-10-26 10:50] LABS: Basophils Absolute Auto 0.03 K/uL (0.00-0.30); Basophils Percent Auto 0.4 % (0.0-3.0); Eosinophils Absolute Auto 0.25 K/uL (0.00-0.50); Eosinophils Percent Auto 3.2 % (0.0-7.0); Hematocrit 37.2 % (33.0-51.0); Hemoglobin* 12.2 gm/dL (12.0-16.0); Immature Granulocytes Abs Auto 0.05 K/uL (0.00-0.30); Immature Granulocytes Pct Auto 0.6 %; Lymphocytes Percent Auto 15.9 % (20-44); Mean Corpuscular HGB Conc 33 gm/dL (32-36); Mean Corpuscular Hemoglobin 34 pg (26-34); Mean Corpuscular Volume 103 fL (80-100); Monocytes Percent Auto 7.8 % (0.0-11.0); Neutrophils Percent Auto 72.1 % (42.0-72.0); Platelet Count* 78 K/uL (140-440); White Blood Count* 7.91 K/uL (4.50-11.00)
[2023-10-26 10:52] LABS: Appearance Urine Clear (Clear); Bilirubin Urine Negative (Negative); Color Urine Yellow (Yellow); Glucose Urine Negative (Negative)
[2023-10-26 10:53] LABS: Blood Urine Trace-intact (Negative); Ketones Urine Negative (Negative); Leukocyte Esterase Urine Negative (Negative); Nitrite Urine Negative (Negative); Protein Urine Negative (Negative); Specific Gravity Urine 1.025 (1.000-1.030); Urobilinogen Urine 0.2 (0.2-1.0); WBC Urine 0-2 (0-5)
[2023-10-26 10:54] LABS: Slide Review Reflex No
[2023-10-26 10:55] LABS: Albumin* 3.2 g/dL (3.3-5.0); Chloride* 103 mmol/L (96-114); INR 1.09 (0.91-1.10); Potassium* 3.7 mmol/L (3.6-5.1); Prothrombin Time 14.8 Seconds; Sodium* 136 mmol/L (135-149)
[2023-10-26 10:57] LABS: Bilirubin Total* 0.8 mg/dL (0.1-1.5); Est. Creatinine Clearance* 39.59; Estimated Glomerular Filt Rate 58 ml/min
--- NOTE | 2023-10-26 10:57 | ED_ITS ---
HPI - General Adult General Chief complaint: Weakness Stated complaint: sepsis Time Seen by Provider: 10/26/23 09:50 History of Present Illness HPI narrative: 78-year-old femal with h/o sciatica, paroxysmal AFib (apixaban), history of 2 previous PEs in the distant past, lumbar fusion, TAVR (repair done in May 2023, complicated by pseudoaneurysm, also repair May 2023, femoral hematoma), rheumatoid arthritis, chronic pain, fibromyalgia, hypertension, coronary disease with NSTEMI, COPD, bronchiectasis, depression/anxiety, colon polyps, chronic kidney disease, anemia, and recent UTI. I saw her myself here in the ER on 10/20 for back pain also generalized weakness. She does have a stenosis affecting her right L5 nerve root with probable cysts sciatica there. Urinalysis is abnormal. Urine culture grew Klebsiella. She was hospitalized for antibiotic therapy. Do nasal she improved after 3 days of hospitalization and IV antibiotics. Mental status and strength were better. In addition to her strength her confusion improved. There were discussions about trying to wean her off her chronic opiates for her back pain (due to history of chronic pain, alcoholism). She was weaned down to oxycodone 2.5 mg twice daily. She was discharged to a TCU yesterday. It sounds like she was doing well yesterday. This morning when her nurses came to check on her they noted that she seemed more confused again. She was febrile to 103. She had generalized weakness so was unable to get out of bed. She was brought back to the ER. She was also found to be hypoxic with sats in the high 80s on room air. She does have a history of COPD, who no definite edema. No other definite new symptoms. She is having some right-sided abdominal pain, but patient is unable to tell me if that started this morning her has been present for. No new sores or sacral ulcers. No new swelling in her legs. She is still on her anticoagulant. Otherwise history is limited because of mental status Related Data Home Medications Medication Instructions Recorded Confirmed Lactobacillus acidophilus 0.5 mg 1,000 mmu cells PO DAILY 12/22/21 10/26/23 (100 million cell) tablet folic acid 1 mg tablet 3 mg PO DAILY 12/22/21 10/26/23 ascorbic acid (vitamin C) 500 mg 1 g PO DAILY 01/16/22 10/26/23 tablet cholecalciferol (vitamin D3) 50 50 mcg PO DAILY 01/16/22 10/26/23 mcg (2,000 unit) capsule multivitamin 1 tab PO QAM 01/16/22 10/26/23 methotrexate sodium 2.5 mg tablet 17.5 mg PO Q7D 08/24/23 10/26/23 ferrous gluconate 324 mg (38 mg 324 mg PO DAILY 10/21/23 10/26/23 iron) tablet prednisone 5 mg tablet 7.5 mg PO DAILY 10/21/23 10/26/23 rosuvastatin 5 mg tablet 5 mg PO HS 10/26/23 10/26/23 valganciclovir 450 mg tablet 450 mg PO DAILY 10/26/23 10/26/23 Previous Rx's Medication Instructions Recorded apixaban 5 mg tablet (Eliquis) 2.5 mg (1/2 x 5 mg) PO BID #90 tabs 08/24/23 furosemide 40 mg tablet 40 mg PO DAILY #90 tabs 08/24/23 metoprolol succinate 25 mg 25 mg PO BID #180 tabs 08/24/23 tablet,extended release 24 hr cephalexin 500 mg capsule 500 mg PO TID #20 caps 10/25/23 diclofenac sodium 1 % topical gel 2 g topical QID PRN #100 grams 10/25/23 (Voltaren Arthritis Pain) duloxetine 60 mg capsule,delayed 60 mg PO DAILY #30 caps 10/25/23 release oxycodone 5 mg tablet 2.5 mg (1/2 x 5 mg) PO Q4H PRN 10/25/23 Pain #30 tabs pregabalin 50 mg capsule (Lyrica) 50 mg PO BID #60 caps 10/25/23 sennosides 8.6 mg-docusate sodium 1 - 2 tab PO BID PRN #100 tabs 10/25/23 50 mg tablet (Stool Softener-Laxative) Allergies Allergy/AdvReac Type Severity Reaction Status Date / Time NSAIDS (Non-Steroidal Allergy Severe GI bleed Verified 10/26/23 12:12 Anti-Inflamma terbinafine Allergy Intermediate Headache Verified 10/26/23 12:12 levofloxacin AdvReac Severe tendon Verified 10/26/23 12:12 rupture PFSH PFS Medical History (Updated 10/26/23 @ 13:57 by Дмитрий Gibbons MD) Acute UTI ?N39.0 - Urinary tract infection, site not specified (ICD-10) Hematoma ?T14.8XXA - Other injury of unspecified body region, initial encounter (ICD- 10) Non-ST elevated myocardial infarction (non-STEMI) ?I21.4 - Non-ST elevation (NSTEMI) myocardial infarction (ICD-10) Immunocompromised state due to drug therapy ?D84.821 - Immunodeficiency due to drugs (ICD-10) ?Z79.899 - 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 therapy (ICD-10) Cognitive impairment ?R41.89 - Other symptoms and signs involving cognitive functions and awareness (ICD-10) 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) ?H30.92 - Unspecified chorioretinal inflammation, left eye (ICD-10) ?B25.9 - Cytomegaloviral disease, unspecified (ICD-10) 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 - Aneurysm of artery of lower extremity (ICD-10) Obesity (BMI 30.0-34.9) ?E66.9 - Obesity, unspecified (ICD-10) Alcohol use disorder ?F10.90 - Alcohol use, unspecified, uncomplicated (ICD-10) Pulmonary embolism ?I26.99 - Other pulmonary embolism without acute cor pulmonale (ICD-10) Gastrointestinal hemorrhage ?K92.2 - Gastrointestinal hemorrhage, unspecified (ICD-10) Aortic stenosis, severe ?I35.0 - Nonrheumatic aortic (valve) stenosis (ICD-10) Pleural effusion ?J90 - Pleural effusion, not elsewhere classified (ICD-10) Chronic wound ?T14.8XXA - Other injury of unspecified body region, initial encounter (ICD- 10) History of kidney stones ?Z87.442 - Personal history of urinary calculi (ICD-10) POLST (Physician Orders for Life-Sustaining Treatment) ?Z78.9 - Other specified health status (ICD-10) Mitral annular calcification ?I05.9 - Rheumatic mitral valve disease, unspecified (ICD-10) Surgical History Status post transcatheter aortic valve replacement (TAVR) using bioprosthesis ?Z95.3 - Presence of xenogenic heart valve (ICD-10) S/P cataract extraction ?Z98.49 - Cataract extraction status, unspecified eye (ICD-10) S/P cholecystectomy ?Z90.49 - Acquired absence of other specified parts of digestive tract (ICD- 10) History of left nephrectomy ?Z90.5 - Acquired absence of kidney (ICD-10) History of lumbar fusion (04/2010) ?Z98.1 - Arthrodesis status (ICD-10) History of lithotripsy ?Z98.890 - Other specified postprocedural states (ICD-10) Family History Mother Breast cancer, Onset Age: 70 Sister Breast cancer, Onset Age: 35 Social History (Updated 10/21/23 @ 16:20 by Alejandro Vasquez MD) Narrative: She has been living independently at [facility]. Struggling with providing self cares. Daughter found her in bed with incontinence today and brought her to the emergency department. Code status is DNR DNI. What is your current living situation?: I presently have a place to live Problems where you live: no known problems Problems where you live details: na In the past 12 months, utilities in danger of being shut off: no In past 12 months, lack of transportation kept you from medical appts, meetings, work, or getting things needed for daily living: no In the past 12 mos, have been you worried that your food would run out before you had money to buy more?: never true In the past 12 mos, the food you bought just didn't last and you didn't have money to buy more?: never true Highest level of school completed/degree received: high school graduate Smoking Status: Never smoker Do you use any of these nicotine containing products: None Second hand tobacco smoke exposure: No How often do you have a drink containing alcohol: never How often do you have six or more drinks on one occasion: Never AUDIT-C Alcohol total score: 0 Non-prescribed substance use: denies use Caffeine: No How often does anyone, including family, friends and others, physically hurt you : never How often does anyone, including family, friends and others, insult or talk down to you: never How often does anyone, including family, friends and others, threaten you with harm: never How often does anyone, including family, friends and others, scream or curse at you: never Little interest or pleasure in doing things: more than half the days Feeling down, depressed, or hopeless: more than half the days service: No Exam Narrative: Exam Narrative: Constitutional: Appears well-developed. Heavyset. Lying back in bed. Generalized weakness and requires assistance to sit up. I am able to lift her legs off the bed but she is only able to hold them up off the bed for a 2nd or 2 before the drift back to the mattress. Symmetric generalized weakness.. HENT: Head: Atraumatic. Nose: Nose normal. Mouth/Throat: Oral mucosa is clear but dry, not desiccated. no trismus. Pharynx normal. Tonsils symmetric. No tonsillar enlargement, erythema, or exudate. Eyes: Conjunctivae normal. EOM normal. Pupils equal, round, and reactive to light. No scleral icterus. Neck: Normal range of motion. Neck supple. No tracheal deviation present. No visible JVD. Cardiovascular: Tachycardic, just over 100, regular rhythm. No gallop. No friction rub. No murmur heard. Symmetric radial artery pulses Pulmonary/Chest: Effort normal. No stridor. No respiratory distress. No wheezes. No rales. No rhonchi . No tenderness. Abdominal: Soft. Bowel sounds normal. No distension. No mass. Left upper and left lower quadrant tenderness. No rebound. No guarding. Musculoskeletal: RUE: Normal range of motion. No tenderness. No deformity LUE: Normal range of motion. No tenderness. No deformity RLE: Normal range of motion. No edema. No tenderness. No deformity LLE: Normal range of motion. No edema. No tenderness. No deformity Was rolled for back exam. No visible bedsores or and sacral ulcers. Neurological: A she is awake but drowsy. Not a good historian. Really can not recall what happened this morning. She follows commands appropriately. No focal strength deficits. She has generalized weakness. CN II-VII intact. No sensory deficit. GCS eye subscore is 4. GCS verbal subscore is 5. GCS motor subscore is 6. Normal coordination Skin: Multiple bruises on both lower extremities. No rash noted. No clear areas of erythema that would suggest cellulitis. No pallor. Normal capillary refill. Psychiatric: Somewhat drowsy but otherwise polite. She recalls meeting me from her last visit ER. Const: Vital Signs, click to edit/add: Vital Signs - 24 hr 10/26/23 09:53 10/26/23 10:00 10/26/23 10:30 Temperature 103.2 F H Pulse Rate Pulse Rate [Pulse Oximeter] 112 H 104 H Respiratory Rate 20 Blood Pressure Blood Pressure [Le ft Upper Arm] 143/67 H 124/74 142/70 H Pulse Oximetry 88 93 92 Oxygen Delivery Me thod Room Air Nasal Cannula Nasal Cannula 10/26/23 11:40 10/26/23 11:52 10/26/23 12:00 Temperature Pulse Rate 78 76 Pulse Rate [Pulse Oximeter] 87 Respiratory Rate Blood Pressure Blood Pressure [Le ft Upper Arm] 109/43 L Pulse Oximetry 96 97 97 Oxygen Delivery Me thod Nasal Cannula 10/26/23 12:02 10/26/23 12:30 10/26/23 12:32 Temperature Pulse Rate 76 76 79 Pulse Rate [Pulse Oximeter] Respiratory Rate Blood Pressure 100/43 L 117/53 L Blood Pressure [Le ft Upper Arm] Pulse Oximetry 97 98 98 Oxygen Delivery Me thod 10/26/23 12:35 10/26/23 13:00 10/26/23 13:02 Temperature 98.3 F Pulse Rate 70 70 Pulse Rate [Pulse Oximeter] Respiratory Rate Blood Pressure 109/45 L Blood Pressure [Le ft Upper Arm] Pulse Oximetry 96 96 Oxygen Delivery Me thod 10/26/23 13:03 10/26/23 13:30 10/26/23 13:31 Temperature Pulse Rate 72 67 68 Pulse Rate [Pulse Oximeter] Respiratory Rate Blood Pressure 110/46 L Blood Pressure [Le ft Upper Arm] Pulse Oximetry 96 96 97 Oxygen Delivery Me thod Course Vital Signs Vital signs: Initial Vital Signs Temperature 103.2 F H 10/26/23 09:53 Temperature Source Temporal Artery Scan 10/26/23 09:53 Pulse Rate 112 H 10/26/23 09:53 Respiratory Rate 20 10/26/23 09:53 Blood Pressure 143/67 H 10/26/23 09:53 Blood Pressure Mean 92 10/26/23 09:53 Blood Pressure Position Supine 10/26/23 09:53 Pulse Oximetry 88 10/26/23 09:53 Oxygen Delivery Method Room Air 10/26/23 09:53 Vital Signs Temperature 103.2 F H 10/26/23 09:53 Pulse Rate 112 H 10/26/23 09:53 Respiratory Rate 20 10/26/23 09:53 Blood Pressure 143/67 H 10/26/23 09:53 Pulse Oximetry 88 10/26/23 09:53 Oxygen Delivery Method Room Air 10/26/23 09:53 Temperature 98.3 F 10/26/23 12:35 Pulse Rate 68 10/26/23 13:31 Respiratory Rate 20 10/26/23 09:53 Blood Pressure 110/46 L 10/26/23 13:31 Pulse Oximetry 97 10/26/23 13:31 Oxygen Delivery Method Nasal Cannula 10/26/23 11:40 Medications Administered Medications: Discontinued Medications Generic Name Dose Route Start Last Admin Trade Name Freq PRN Reason Stop Dose Admin Acetaminophen 1,000 mg 10/26/23 09:50 10/26/23 10:48 Acetaminophen 500 Mg Tablet PO 10/26/23 09:51 1,000 mg ONCE ONE Administration Sodium Chloride 1,000 mls @ 1,000 mls/hr 10/26/23 10:00 10/26/23 12:50 0.9 % Sodium Chloride 1000 Ml IV 10/26/23 10:59 Infused .Q1H MICHELLE Infusion Piperacillin Sod/Tazobactam 100 mls @ 200 mls/hr 10/26/23 10:00 10/26/23 12 :24 Sod 4.5 gm/ Sodium Chloride IVPB 10/26/23 10:29 Infused ONCE ONE Infusion Vancomycin HCl 2,000 mg/ 520 mls @ 260 mls/hr 10/26/23 11:00 10/26/23 12:25 Sodium Chloride IVPB 10/26/23 12:59 260 mls/hr ONCE ONE Administration Protocol Medical Decision Making MDM Narrative Medical decision making narrative: 78-year-old female presenting to the ER today from her rehab facility after she was discharged from this hospital yesterday. She developed fever, weakness, hypoxia when she was checked this morning. It sounds like she was doing very well yesterday however. Infectious Disease. With fever concern is for possible infection or evolving sepsis. She did have sinus tachycardia upon presentation but normal blood pressure. At this point no clear sepsis physiology. We did send blood cultures into infectious workup. We started antibiotics for sepsis of unknown etiology because of her high temperature of 103?. At this point no clear evidence for UTI on catheterized urine sample. No evidence for active skin cellulitis or infected skin ulcers.. With left lower quadrant abdominal pain we did do CT scan to look for possible colitis, or other intra-abdominal pathology causing fever. CT scan is essentially normal. There is equivocal findings for possible mild colitis on the CT scan but overall would not be significant enough to explain her fever. COVID, influenza, RSV PCR negative. She was hypoxic but not really coughing. Blood gas shows normal pH-no sign of acute CO2 retention. The lung sounds are not wheezy. No sign of active bronchospasm or COPD exacerbation. Chest CT was obtained to look for possible PE given recent hospitalization and is normal. Chest CT scan does suggest bilateral upper lobe opacities that could be a pneumonia. Will treat with addition of Azithromycin (in addition to Zosyn and vanco already given) for her pneumonia. Differential for these upper lobe infiltrates would also be pulmonary edema. However with her high fever and acute onset, would favor infection over cardiac source. EKG shows a sinus tachycardia but no definite ischemia. Troponin detectable minimally above the baseline at 0.08, likely due to demand ischemia. After IV fluids, antibiotics, Tylenol for fever she is actually doing better. More alert and conversant. Still has generalized weakness. Still requiring nasal cannula to keep sats either the 80s. She will be rehospitalized here in [place]. Accepted by Dr. Vasquez, hospitalist. Lab Data Labs: Lab Results 10/26/23 10/26/23 10/26/23 Range/Units 10:15 10:20 Unknown WBC 7.91 (4.50-11.00) K/uL RBC 3.60 L (4.00-5.20) m/uL Hgb 12.2 (12.0-16.0) gm/dL Hct 37.2 (33.0-51.0) % MCV 103 H (80-100) fL MCH 34 (26-34) pg MCHC 33 (32-36) gm/dL RDW Coeff of Navneet 17.0 H (11.5-15.5) % Plt Count 78 L (140-440) K/uL Neut % (Auto) 72.1 H (42.0-72.0) % Lymph % (Auto) 15.9 L (20-44) % [place] % (Auto) 7.8 (0.0-11.0) % Eos % (Auto) 3.2 (0.0-7.0) % Baso % (Auto) 0.4 (0.0-3.0) % Neut # (Auto) 5.70 (1.7-7.0) K/uL Lymph # (Auto) 1.30 (0.90-2.90) K/uL [place] # (Auto) 0.60 (0.00-0.90) K/UL Eos # (Auto) 0.25 (0.00-0.50) K/uL Baso # (Auto) 0.03 (0.00-0.30) K/uL Abs Immat Gran (auto) 0.05 (0.00-0.30) K/uL Imm/Tot Granulo (auto) 0.6 % INR 1.09 (0.91-1.10) VBG pH 7.417 (7.32-7.43) VBG pCO2 45 (40-50) mmHG VBG pO2 < 30.1 (25-47) mmHG VBG HCO3 29 H (21-28) mmol/L Sodium 136 (135-149) mmol/L Potassium 3.7 (3.6-5.1) mmol/L Chloride 103 (96-114) mmol/L Carbon Dioxide 28 (20-32) mmol/L Anion Gap 5 L (7-15) mEq/L BUN 27 (7-30) mg/dL Creatinine 1.0 (0.5-1.5) mg/dL Estimated Creat Clear 39.59 Estimated GFR 58 ml/min Glucose 89 (60-115) mg/dL Calcium 8.3 L (8.4-10.6) mg/dL Total Bilirubin 0.8 (0.1-1.5) mg/dL AST 34 (12-35) U/L ALT 22 (4-35) U/L Alkaline Phosphatase 66 (40-150) U/L Troponin I 0.08 H* (0.01-0.04) ng/mL Total Protein 5.8 L (6.0-8.3) g/dL Albumin 3.2 L (3.3-5.0) g/dL Urine Color Yellow (Yellow) Urine Appearance Clear (Clear) Urine pH 6.0 (5.0-8.5) Ur Specific [place] 1.025 (1.000-1.030) Urine Protein Negative (Negative) Urine Glucose (UA) Negative (Negative) Urine Ketones Negative (Negative) Urine Blood Trace-intact A (Negative) Urine Nitrite Negative (Negative) Urine Bilirubin Negative (Negative) Urine Urobilinogen 0.2 (0.2-1.0) Ur Leukocyte Esterase Negative (Negative) Urine RBC 2-5 A (0-2) Urine WBC 0-2 (0-5) Ur Squamous Epith Cells None (None-Few) Urine Bacteria None (None) SARS-CoV-2 (PCR) Negative SARS-CoV-2 (Negative) Influenza Type A (PCR) Negative PCR FLU A (Negative) Influenza Type B (PCR) Negative PCR FLU B (Negative) RSV (PCR) Negative PCR RSV (Negative) Imaging Data CT Chest/Ab/Pelvis: Attestation: I have reviewed the pertinent imaging results. Radiologist's impression: Impression: Minimal nonspecific fluid appreciated within the proximal colon which may represent minimal colitis change. Moderate stool seen in the distal colon. Stable granulomas and hypodensities within the spleen with minimal chronic perisplenic inflammatory change within the adjacent fat. Prior left nephrectomy. Otherwise, no definite acute intra-abdominal abnormality is appreciated. CT scan - chest: Attestation: I have reviewed the pertinent imaging results. Radiologist's impression: Impression: [id number] interstitial and ground-glass opacities of the bilateral upper lobes which may represent developing edema and/or multifocal infiltrates with trace right basilar pleural effusion with adjacent compressive atelectasis and/or infiltrates. No evidence of pulmonary embolus. ECG Data Attestation: I personally reviewed and interpreted this ECG as follows: Interpretation: Sinus tach Rate: 109 MT: 154 QRS axis: normal axis ST segment/T wave: No ST segment elevation or depression. Nonspecific changes QTc: For 6 Discharge Plan Discharge Clinical Impression: Weakness, Hypoxia, Pneumonia Prescriptions: No Action cholecalciferol (vitamin D3) 50 mcg (2,000 unit) capsule 50 mcg PO DAILY multivitamin Tablet 1 tab PO QAM ascorbic acid (vitamin C) 500 mg tablet 1 g PO DAILY methotrexate sodium 2.5 mg tablet 17.5 mg PO Q7D rosuvastatin 5 mg tablet See Rx Instructions .ROUTE .COMPLEX Qty: 90 3RF Dose Instruction: TAKE 1 TABLET BY MOUTH DAILY Rx Instructions: TAKE 1 TABLET BY MOUTH DAILY metoprolol succinate 25 mg tablet extended release 24 hr 25 mg PO BID Qty: 180 3RF furosemide 40 mg tablet 40 mg PO DAILY Qty: 90 3RF Eliquis 5 mg tablet 2.5 mg PO BID Qty: 90 3RF folic acid 1 mg tablet 3 mg PO DAILY Lactobacillus acidophilus 0.5 mg (100 million cell) tablet 1,000 mmu cells PO DAILY prednisone 5 mg tablet 7.5 mg PO DAILY ferrous gluconate 324 mg (38 mg iron) tablet 324 mg PO DAILY sennosides-docusate sodium [Stool Softener-Laxative] 8.6-50 mg Tablet 1 - 2 tab PO BID PRNQty: 100 0RF oxycodone 5 mg Tablet 2.5 mg PO Q4H PRN (Reason: Pain) Qty: 30 0RF pregabalin [Lyrica] 50 mg Capsule 50 mg PO BID Qty: 60 0RF cephalexin 500 mg capsule 500 mg PO TID Qty: 20 0RF duloxetine 60 mg capsule,delayed release(DR/EC) 60 mg PO DAILY Qty: 30 0RF diclofenac sodium [Voltaren Arthritis Pain] 1 % gel 2 g topical QID PRNQty: 100 0RF Rx Instructions: apply to single elbow, wrist or hand; for hand includes palm/fingers/back of hand valganciclovir 450 mg tablet See Rx Instructions .ROUTE .COMPLEX Qty: 90 3RF Dose Instruction: TAKE 1 TABLET BY MOUTH DAILY Rx Instructions: TAKE 1 TABLET BY MOUTH DAILY Follow Up/Referrals: Kyle Healy MD [Primary Care Provider] -
[2023-10-26 10:58] LABS: Alanine Aminotransferase* 22 U/L (4-35); Alkaline Phosphatase* 66 U/L (40-150); Anion Gap 5 mEq/L (7-15); Aspartate Amino Transferase* 34 U/L (12-35); Blood Urea Nitrogen* 27 mg/dL (7-30); Calcium* 8.3 mg/dL (8.4-10.6); Carbon Dioxide* 28 mmol/L (20-32); Glucose* 89 mg/dL (60-115); Total Protein* 5.8 g/dL (6.0-8.3)
[2023-10-26 11:15] LABS: Troponin I* 0.08 ng/mL (0.01-0.04)
[2023-10-26 11:25] LABS: PCR FLU A Negative PCR FLU A (Negative); PCR FLU B Negative PCR FLU B (Negative); PCR RSV Negative PCR RSV (Negative); SARS PCR* Negative SARS-CoV-2 (Negative)
[2023-10-26] MEDS: PIPERACILLIN/TAZOBACTAM 4.5 GM in 0.9 % SODIUM CHLORIDE Mini-bag 100 ML IVPB (11:51)
[2023-10-26] MEDS: 0.9 % SODIUM CHLORIDE 1000 ml 1,000 ML IV (11:51)
--- NOTE | 2023-10-26 15:02 | PM.IMHP1 ---
Hospitalist- H&P: [facility] History of Present Illness Date Seen: 10/26/23 Chief complaint: sepsis Narrative: Tanner James is a 78 year old female admitted to the hospital with somnolence weakness fever and hypoxia. She was discharged from the hospital after treatment for a UTI with sepsis from Klebsiella pneumonia yesterday. She was discharged to [address] [place] [address]. For the last few days in the hospital and yesterday in the half-way she reportedly felt fine without any new problems or concerns, just the weakness from her recent illness. She has not had a fever or a cough or shortness of breath or hypoxia in the last few days. Summary from the past few months: Patient has had multiple hospital admissions over the last 6 months: April 2023 she was hospitalized here for weakness. At that time there was concern of multifactorial weakness including some heart failure with severe aortic stenosis, COPD, UTI, type 2 non STEMI. She had a CT of her chest which showed bilateral extensive interstitial airspace opacities consistent with pulmonary edema or multifocal infiltrates. At the time this was thought to be more likely heart failure. At the time she was on methotrexate and there was concern about some pulmonary toxicity so the methotrexate was held. She was admitted for a week, discharge to home, readmitted 2 days later with ongoing weakness and fever. She was transferred to [facility] because of her fever and heart disease. April 2023 hospitalized at [facility] after transfer from [facility] for fever and cardiac evaluation. Fever resolved spontaneously. She was deemed an appropriate candidate for TAVR. Discharge to detention facility for about 1 month. 06/16/2023 hospitalized at [place] for TAVR. Procedure went well. She reports resolution of her cardio-respiratory symptoms after TAVR. 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 Readmitted on June 21 for management of this. The hematoma has resolved but she still reporting pain in the area of her right groin, right abdomen, right thigh. Repeat CT imaging on October 09 2023 showed resolution of the hematoma. 10/09/2023 she was seen in our emergency department with 2 weeks of right low back pain radiating into her leg and foot. CT at that time showed moderate to severe right foraminal stenosis at L5-S1. Previous fusion at L4-5 and posterior decompression at L2-4. CT abdomen and pelvis showed no residual hematoma. She was given a course of prednisone for treatment of possible sciatica. She tells me now that it might have helped a little bit but she is unsure of this. She has been taking hydrocodone acetaminophen as needed for pain, she has had approximately 53 tablets in 24 days. She was prescribed physical therapy which is of uncertain benefit. The course of therapy has been completed. During her recent hospital stay she had improvement in her low back pain and sciatica going down her right leg. She was more mobile. She was requiring less pain medication and was able to wean down on her chronic opioid therapy. Her mood and mental status were quite good. Review of Systems Narrative: She reports a slight chronic cough but not a cough that has changed in the last few weeks. Since her TAVR in May she reports her breathing has been much better. She previously used an inhaler when she was short of breath but has stopped using it since she had her TAVR. [facility] Medical History (Updated 10/26/23 @ 15:46 by Alejandro Vasquez MD) Acute UTI ?N39.0 - Urinary tract infection, site not specified (ICD-10) Congestive heart failure ?I50.9 - Heart failure, unspecified (ICD-10) Pulmonary infiltrates ?R91.8 - Other nonspecific abnormal finding of lung field (ICD-10) Hematoma ?T14.8XXA - Other injury of unspecified body region, initial encounter (ICD-10) Non-ST elevated myocardial infarction (non-STEMI) ?I21.4 - Non-ST elevation (NSTEMI) myocardial infarction (ICD-10) Immunocompromised state due to drug therapy ?D84.821 - Immunodeficiency due to drugs (ICD-10) ?Z79.899 - Other [place] [facility] (current[facility] drug therapy (ICD-10) Cognitive impairment ?R41.89 - Other symptoms and signs involving cognitive functions and awareness (ICD-10) 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) ?H30.92 - Unspecified chorioretinal inflammation, left eye (ICD-10) ?B25.9 - Cytomegaloviral disease, unspecified (ICD-10) 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 - Aneurysm of artery of lower extremity (ICD-10) Obesity (BMI 30.0-34.9) ?E66.9 - Obesity, unspecified (ICD-10) Alcohol use disorder ?F10.90 - Alcohol use, unspecified, uncomplicated (ICD-10) Pulmonary embolism ?I26.99 - Other pulmonary embolism without acute cor pulmonale (ICD-10) Gastrointestinal hemorrhage ?K92.2 - Gastrointestinal hemorrhage, unspecified (ICD-10) Aortic stenosis, severe ?I35.0 - Nonrheumatic aortic (valve) stenosis (ICD-10) Pleural effusion ?J90 - Pleural effusion, not elsewhere classified (ICD-10) Chronic wound ?T14.8XXA - Other injury of unspecified body region, initial encounter (ICD-10) History of kidney stones ?Z87.442 - Personal history of urinary calculi (ICD-10) POLST (Physician Orders for Life-Sustaining Treatment) ?Z78.9 - Other specified health status (ICD-10) Mitral annular calcification ?I05.9 - Rheumatic mitral valve disease, unspecified (ICD-10) Surgical History Status post transcatheter aortic valve replacement (TAVR) using bioprosthesis ?Z95.3 - Presence of xenogenic heart valve (ICD-10) S/P cataract extraction ?Z98.49 - Cataract extraction status, unspecified eye (ICD-10) S/P cholecystectomy ?Z90.49 - Acquired absence of other specified parts of digestive tract (ICD-10) History of left nephrectomy ?Z90.5 - Acquired absence of kidney (ICD-10) History of lumbar fusion (04/2010) ?Z98.1 - Arthrodesis status (ICD-10) History of lithotripsy ?Z98.890 - Other specified postprocedural states (ICD-10) Family History Mother Breast cancer, Onset Age: 70 Sister Breast cancer, Onset Age: 35 Social History (Updated 10/26/23 @ 15:27 by Alejandro Vasquez MD) Narrative: Discharged yesterday to [facility]. Prior to the recent admission she has been living independently at [facility]. Struggling with providing self cares. Code status is DNR DNI. What is your current living situation?: I presently have a place to live Problems where you live: no known problems Problems where you live details: n/a In the past 12 months, utilities in danger of being shut off: no In past 12 months, lack of transportation kept you from medical appts, meetings, work, or getting things needed for daily living: no In the past 12 mos, have been you worried that your food would run out before you had money to buy more?: never true In the past 12 mos, the food you bought just didn't last and you didn't have money to buy more?: never true Highest level of school completed/degree received: high school graduate Smoking Status: Never smoker Do you use any of these nicotine containing products: None Second hand tobacco smoke exposure: Yes How often do you have a drink containing alcohol: never How often do you have six or more drinks on one occasion: Never AUDIT-C Alcohol total score: 0 Non-prescribed substance use: denies use Caffeine: Yes How often does anyone, including family, friends and others, physically hurt you: never How often does anyone, including family, friends and others, insult or talk down to you: never How often does anyone, including family, friends and others, threaten you with harm: never How often does anyone, including family, friends and others, scream or curse at you: never Little interest or pleasure in doing things: more than half the days Feeling down, depressed, or hopeless: more than half the days service: No Meds Home Medications and Allergies Home Medications Medication Instructions Recorded Confirmed Type Lactobacillus acidophilus 0.5 mg 100 mmu cells PO DAILY 12/22/21 10/26/23 History (100 million cell) tablet folic acid 1 mg tablet 3 mg PO DAILY 12/22/21 10/26/23 History ascorbic acid (vitamin C) 500 mg 1 g PO DAILY 01/16/22 10/26/23 History tablet cholecalciferol (vitamin D3) 50 50 mcg PO DAILY 01/16/22 10/26/23 History mcg (2,000 unit) capsule multivitamin 1 tab PO QAM 01/16/22 10/26/23 History methotrexate sodium 2.5 mg tablet 17.5 mg PO Q7D 08/24/23 10/26/23 History ferrous gluconate 324 mg (38 mg 324 mg PO DAILY 10/21/23 10/26/23 History iron) tablet prednisone 5 mg tablet 7.5 mg PO DAILY 10/21/23 10/26/23 History rosuvastatin 5 mg tablet 5 mg PO HS 10/26/23 10/26/23 History valganciclovir 450 mg tablet 450 mg PO DAILY 10/26/23 10/26/23 History Allergies Allergy/AdvReac Type Severity Reaction Status Date / Time NSAIDS (Non-Steroidal Allergy Severe GI bleed Verified 10/26/23 12:12 Anti-Inflamma terbinafine Allergy Intermediate Headache Verified 10/26/23 12:12 levofloxacin AdvReac Severe tendon Verified 10/26/23 12:12 rupture Exam Narrative: Exam Narrative: She is alert and appears in no distress. Her O2 sats are now in the low 90s on room air. Eyes normal. Oropharynx normal. Neck is supple without mass or adenopathy. No jugular venous distension. Respirations with an occasional scattered crackle. No wheezing. No consolidation. Cardiovascular: S1, S2, regular rate and rhythm. Abdomen: Bowel sounds active. Abdomen is soft without tenderness or mass. External genitalia and skin under the pannus is without erythema. Extremities with significant bruising and some chronic venous stasis change. No open ulcers no marked erythema no tenderness. She does poorly tolerate attempts to have her sit up in bed due to her sciatica, right low back and hip pain. Good peripheral perfusion. Const: Vital Signs, click to edit/add: Vital Signs - 24 hr 10/26/23 09:53 10/26/23 10:00 10/26/23 10:30 Temperature 103.2 F H Pulse Rate Pulse Rate [Pulse Oximeter] 112 H 104 H Pulse Rate [Right Pulse Oximeter] Respiratory Rate 20 Blood Pressure Blood Pressure [Le ft Arm] Blood Pressure [Le ft Upper Arm] 143/67 H 124/74 142/70 H Pulse Oximetry 88 93 92 Oxygen Delivery Me thod Room Air Nasal Cannula Nasal Cannula 10/26/23 11:40 10/26/23 11:52 10/26/23 12:00 Temperature Pulse Rate 78 76 Pulse Rate [Pulse Oximeter] 87 Pulse Rate [Right Pulse Oximeter] Respiratory Rate Blood Pressure Blood Pressure [Le ft Arm] Blood Pressure [Le ft Upper Arm] 109/43 L Pulse Oximetry 96 97 97 Oxygen Delivery Me thod Nasal Cannula 10/26/23 12:02 10/26/23 12:30 10/26/23 12:32 Temperature Pulse Rate 76 76 79 Pulse Rate [Pulse Oximeter] Pulse Rate [Right Pulse Oximeter] Respiratory Rate Blood Pressure 100/43 L 117/53 L Blood Pressure [Le ft Arm] Blood Pressure [Le ft Upper Arm] Pulse Oximetry 97 98 98 [facility] 10/26/23 12:35 10/26/23 13:00 10/26/23 13:02 Temperature 98.3 F Pulse Rate 70 70 Pulse Rate [Pulse Oximeter] Pulse Rate [Right Pulse Oximeter] Respiratory Rate Blood Pressure 109/45 L Blood Pressure [Le ft Arm] Blood Pressure [Le ft Upper Arm] Pulse Oximetry 96 96 [facility] 10/26/23 13:03 10/26/23 13:30 10/26/23 13:31 Temperature Pulse Rate 72 67 68 Pulse Rate [Pulse Oximeter] Pulse Rate [Right Pulse Oximeter] Respiratory Rate Blood Pressure 110/46 L Blood Pressure [Le ft Arm] Blood Pressure [Le ft Upper Arm] Pulse Oximetry 96 96 97 [facility] 10/26/23 13:32 10/26/23 14:00 10/26/23 14:02 Temperature Pulse Rate 68 74 73 Pulse Rate [Pulse Oximeter] Pulse Rate [Right Pulse Oximeter] Respiratory Rate Blood Pressure 111/52 L Blood Pressure [Le ft Arm] Blood Pressure [Le ft Upper Arm] Pulse Oximetry 97 97 97 [facility] 10/26/23 14:32 Temperature 98.3 F Pulse Rate Pulse Rate [Pulse Oximeter] Pulse Rate [Right Pulse Oximeter] 78 Respiratory Rate 20 Blood Pressure Blood Pressure [Le ft Arm] 129/55 L Blood Pressure [Le ft Upper Arm] Pulse Oximetry 92 [facility] Room Air Documenting provider has reviewed patient's vital signs: yes Hospitalist - H&P: Result Labs Labs: Short CBC 10/26/23 Range/Units 10:20 WBC 7.91 (4.50-11.00) K/uL Hgb 12.2 (12.0-16.0) gm/dL Hct 37.2 (33.0-51.0) % Plt Count 78 L (140-440) K/uL BMP 10/26/23 10:20 Sodium 136 Potassium 3.7 Chloride 103 Carbon Dioxide 28 BUN 27 Creatinine 1.0 Glucose 89 Calcium 8.3 L Cardiac Enzymes 10/26/23 Range/Units 10:20 Troponin I 0.08 H* (0.01-0.04) ng/mL Liver Function 10/26/23 Range/Units 10:20 Total Bilirubin 0.8 (0.1-1.5) mg/dL AST 34 (12-35) U/L ALT 22 (4-35) U/L Alkaline Phosphatase 66 (40-150) U/L Albumin 3.2 L (3.3-5.0) g/dL Urine 10/26/23 Range/Units Unknown Urine Color Yellow (Yellow) Urine Appearance Clear (Clear) Urine pH 6.0 (5.0-8.5) Ur Specific [place] 1.025 (1.000-1.030) Urine Protein Negative (Negative) Urine Glucose (UA) Negative (Negative) ECG Attestation: I personally reviewed and interpreted this ECG as follows: (Electrocardiogram shows sinus tachycardia. Probable LVH. Limb leads with nonspecific ST changes.) Imaging CT scan - abdomen: Radiologist's impression: Indication: Hypoxia, fever Technique: Volumetric multidetector CT images of the abdomen and pelvis were obtained after the administration of intravenous contrast. 95 cc Isovue 370 low osmolar intravenous contrast Comparison: CT abdomen and pelvis October 09, 2023 and June 21, 2023 Findings: There is demonstration trace right basilar pleural effusion with basilar atelectasis. The liver is normal in attenuation without intrahepatic biliary ductal dilatation. The portal vein is patent. There is prior cholecystectomy. There is no significant common biliary ductal dilatation or abrupt cut off. There is again seen a somewhat heterogeneous appearance of the spleen with splenic granulomas. Minimal perisplenic inflammatory changes are again seen similar to previous exam. The stomach and duodenum are grossly unremarkable. The pancreas is normal in enhancement without significant atrophy. The adrenal glands are unremarkable. There is prior left nephrectomy with stable appearance of the right kidney. Minimal cystic change of the superior pole of the right kidney with otherwise no evidence of obstructive uropathy or radiopaque calculus. There is fluid within the proximal colon with moderate stool in the distal colon. The central small bowel is decompressed. The appendix is unremarkable. There is no significant mesenteric, retroperitoneal, or pelvic sidewall lymph nodes. The aorta is nonaneurysmal. There is no significant atherosclerotic disease appreciated. There is a Oliveros catheter within the urinary bladder. Calcified fibroid uterus is again seen. The pelvic viscera are otherwise grossly within normal limits. There is no free fluid or free air. The anterior abdominal wall is intact without significant hernias. The lumbar vertebral body heights are stable from previous exam with pedicle screw and posterior stabilization fixation changes of the L4-L5 level. Anterior interbody fusion device is appreciated. Impression: Minimal nonspecific fluid appreciated within the proximal colon which may represent minimal colitis change. Moderate stool seen in the distal colon. Stable granulomas and hypodensities within the spleen with minimal chronic perisplenic inflammatory change within the adjacent fat. Prior left nephrectomy. Otherwise, no definite acute intra-abdominal abnormality is appreciated. CT scan - chest: Radiologist's impression: CT CHEST FROM 10/26/2023: Indication: Hypoxia, fever Technique: Volumetric multidetector CT images of the chest were obtained after the administration of IV contrast. 95 cc Isovue 370 low osmolar intravenous contrast Comparison: CT chest April 29, 2023 Findings: The thoracic inlet and thyroid gland are unremarkable. The thoracic aorta is nonaneurysmal with scattered atherosclerotic calcification and aortic valve prosthesis. Extensive coronary artery calcification is again seen. There is no central filling defect to suggest pulmonary embolism. There is no evidence of mediastinal, hilar or axillary adenopathy. Prominent paraspinous lymph nodes are again appreciated similar to remote comparison, slightly decreased in conspicuity from previous. There is mild to moderate central bronchial thickening. There are developing interstitial and ground-glass opacities within the bilateral upper lobes likely representing developing infiltrates with trace right basilar pleural effusion with adjacent compressive atelectasis and/or parenchymal scar. There is no pneumothorax. There is no evidence of pulmonary mass or suspicious pulmonary nodule. The partially visualized upper abdominal viscera are within normal limits. The thoracic vertebral body heights are stable from comparison with mildly exaggerated thoracic kyphosis. There are diffuse flowing anterior osteophytosis in syndesmophytes as well as extensive ossification of the interspinous ligament which can be seen in the setting of ankylosing spondylitis. Impression: [id number] interstitial and ground-glass opacities of the bilateral upper lobes which may represent developing edema and/or multifocal infiltrates with trace right basilar pleural effusion with adjacent compressive atelectasis and/or infiltrates. No evidence of pulmonary embolus. CT CHEST FROM 05/08/2023: Indication: Hypoxia Technique: Volumetric multidetector CT images of the chest were obtained after the administration of IV contrast. 95 cc Isovue 370 low osmolar intravenous contrast Comparison: CT chest with contrast September 15, 2022. Findings: The thoracic inlet and thyroid gland are unremarkable. The thoracic aorta is non aneurysmal. There is no central filling defect to suggest pulmonary embolism. There are reactive mediastinal and hilar lymph nodes. There is marked central bronchial thickening and interstitial prominence. There are extensive interstitial and airspace opacities within the upper lobes with bibasilar pleural effusions with adjacent compressive atelectasis. Overall these findings likely represent developing pulmonary edema and/or multifocal infiltrates. There is no evidence of pulmonary mass or suspicious pulmonary nodule. The partially visualized upper abdominal viscera are within normal limits. The thoracic vertebral body heights are grossly maintained with diffuse flowing anterior osteophytosis and ossification of the interspinous ligament. Impression: Extensive interstitial and airspace opacities seen throughout the bilateral hemithoraces with basilar pleural effusions likely representing developing pulmonary edema and/or multifocal infiltrates. Assessment and Plan Assessment and plan (1) Sepsis with acute hypoxic respiratory failure: Problem comment: Patient meets criteria for sepsis with fever (103 F in [facility]), tachycardia (109), hypotension (100/43), altered mental status, elevated troponin, hypoxia (85%). Vitals have improved with resuscitation and antibiotics in the emergency department. Status: Acute (2) Pulmonary infiltrates: Problem comment: Patient has infiltrates in this clinical setting more suggestive of infectious rather than heart failure. Notably in April of 2023 CT scan showed similar abnormal findings. At that time thought more likely to be heart failure. Since then she has had a TAVR to address her heart failure from aortic stenosis. Unclear if methotrexate is playing a role. May need bronchoscopy or other intervention to determine the cause of pulmonary infiltrates. Status: Acute (3) Pneumonia: Problem comment: Will treat as hospital-acquired pneumonia due to recent hospitalization and developing a pneumonia well on ceftriaxone/cephalexin Status: Acute (4) Congestive heart failure: Problem comment: History of heart failure thought primarily due to severe aortic stenosis now 4 months status post TAVR with apparently good symptomatic relief of exertional dyspnea Status: Acute (5) Immunocompromised state due to drug therapy: Problem comment: On chronic methotrexate 17.5 mg weekly and prednisone 7.5 mg daily Status: Acute (6) Generalized weakness: Problem comment: Profoundly weak today likely due to acute illness. Same thing happened last week and she had good clinical improvement with treating her infection. Status: Acute (7) Sciatica: Problem comment: Has been on [place] prior to admission now on low-dose oxycodone. Will need physical therapy and optimally wean off of opioid pain medicines to maximize independent ambulation. Pain significantly improved during last hospital stay despite weaning opioids. Study: CT-Spine Lumbar W/IV-10/09/2023 2:34:37 PM Impression: 1. No acute osseous injury within the lumbar spine. 2. Postsurgical change of the anterior and posterior fusion at L4-5. 3. Prior posterior decompression at L2, L3 and L4. 4. At L1-2, [id number] spinal canal and left neural foraminal narrowing. 5. At L5-S1, moderate to severe right and mild left neural foraminal stenosis. Status: Acute (8) Rheumatoid arthritis: Problem comment: On methotrexate and prednisone. Status: Acute (9) Chronic use of steroids: Problem comment: Prednisone 7.5 mg daily. Stress dose IV steroids with current sepsis Status: Chronic (10) Acute UTI: Problem comment: Last admission was thought to be triggered by UTI causing sepsis. Urine grew Klebsiella pneumonia and was treated with ceftriaxone and Keflex. Urinalysis looks much better today. Does not appear to be the cause of current sepsis Status: Acute Plan Patient admitted to the hospital for evaluation treatment of hypoxic respiratory failure with sepsis. Will need ongoing evaluation of pulmonary infiltrates and looking for other sources of sepsis. Total Time Spent Total Time Spent: Total time spent today is 75 minutes, 50 minutes in coordination of care, discussion with other providers and patient about evaluation management of recurrent acute illness and pulmonary infiltrates with hypoxia.
[2023-10-26 15:10] LABS: Lactate* 1.1 mmol/L (0.5-1.9)
[2023-10-26 15:43] LABS: Troponin I* 0.09 ng/mL (0.01-0.04)
[2023-10-26] MEDS: AZITHROMYCIN 250 MG TABLET 500 MG PO (16:08)
[2023-10-26] MEDS: HYDROCORTISONE SOD SUCCINATE 50 MG/ML inj IVP ×2 (16:08→23:23)
[2023-10-26] MEDS: OXYCODONE 5 MG TABLET 2.5 MG PO (16:24)
[2023-10-26] MEDS: PIPERACILLIN/TAZOBACTAM 3.375 GM in 0.9 % SODIUM CHLORIDE Mini-bag 100 ML IVPB ×2 (18:03→23:23)
--- NOTE | 2023-10-26 18:42 | PC.NURSE ---
Shift Summary: Patient pleasant and cooperative. Has not been up since arriving to floor, turn and repo in bed. Oliveros cath placed in ED, patent. Vitals stable, o2 sat >90% on RA. C/o pain in right lower back/hip, relief with PRN medication see MAR. Tolerating regular diet.
[2023-10-26 19:22] LABS: Legionella pneumo Ag Urine L. pneumo Negative (Negative); S pneumo Ag Urine S. pneumo Negative (Negative)
[2023-10-26] MEDS: PREGABALIN 50 MG CAPSULE PO (20:32)
[2023-10-26] MEDS: METOPROLOL SUCCINATE (XL) 25 MG TAB PO (20:33)
[2023-10-26] MEDS: APIXABAN 5 MG TABLET 2.5 MG PO (20:33)
[2023-10-26] MEDS: ROSUVASTATIN CALCIUM 10 MG TABLET 5 MG PO (20:33)
[2023-10-26] MEDS: SODIUM CHLORIDE 0.9 % (FLUSH) 10 ML SYRINGE 5 ML IVF (20:34)
[2023-10-27] VITALS (12 sets, daily range): BP systolic 130–167; BP diastolic 55–68; PULSE 63–76; RESP 18; TEMP 36.3–36.8; O2SAT 95–99
[2023-10-27] MEDS: HYDROCORTISONE SOD SUCCINATE 50 MG/ML inj IVP (06:04)
[2023-10-27] MEDS: PIPERACILLIN/TAZOBACTAM 3.375 GM in 0.9 % SODIUM CHLORIDE Mini-bag 100 ML IVPB ×4 (06:04→23:23)
--- NOTE | 2023-10-27 06:32 | PC.NURSE ---
pleasant and cooperative. calls appropriately. VSS. pt showed television writer a tissue of her sputum with a streak of blood on it, pt verbalized her cough has been dry, pt declined throat soothing interventions & stated she just wants to make sure I tell you guys everything. Pt reports this AM that she feels like her brain fog has cleared and that she is starting to feel like herself. Oliveros patent and draining.
[2023-10-27 06:36] LABS: Basophils Absolute Auto 0.01 K/uL (0.00-0.30); Basophils Percent Auto 0.1 % (0.0-3.0); Eosinophils Absolute Auto 0.02 K/uL (0.00-0.50); Eosinophils Percent Auto 0.3 % (0.0-7.0); Hematocrit 33.3 % (33.0-51.0); Hemoglobin* 10.9 gm/dL (12.0-16.0); Immature Granulocytes Abs Auto 0.06 K/uL (0.00-0.30); Immature Granulocytes Pct Auto 0.9 %; Lymphocytes Percent Auto 14.3 % (20-44); Mean Corpuscular HGB Conc 33 gm/dL (32-36); Mean Corpuscular Hemoglobin 34 pg (26-34); Mean Corpuscular Volume 103 fL (80-100); Monocytes Percent Auto 3.1 % (0.0-11.0); Neutrophils Percent Auto 81.3 % (42.0-72.0); Platelet Count* 80 K/uL (140-440); RDW Coefficient of Variation % 16.3 % (11.5-15.5); Red Blood Count 3.24 m/uL (4.00-5.20); White Blood Count* 7.05 K/uL (4.50-11.00)
[2023-10-27 06:37] LABS: Slide Review Reflex No
[2023-10-27 06:47] LABS: Chloride* 108 mmol/L (96-114); Sodium* 137 mmol/L (135-149)
[2023-10-27 06:48] LABS: Potassium* 3.5 mmol/L (3.6-5.1)
[2023-10-27 06:50] LABS: Anion Gap 4 mEq/L (7-15); Blood Urea Nitrogen* 25 mg/dL (7-30); Carbon Dioxide* 25 mmol/L (20-32); Creatinine* 0.9 mg/dL (0.5-1.5); Est. Creatinine Clearance* 39.59; Estimated Glomerular Filt Rate 66 ml/min
[2023-10-27 06:51] LABS: Calcium* 7.9 mg/dL (8.4-10.6); Glucose* 140 mg/dL (60-115)
[2023-10-27 07:02] LABS: Troponin I* 0.04 ng/mL (0.01-0.04)
[2023-10-27 08:33] LABS: NT Pro B Type NatriureticPept* 3050 pg/mL
[2023-10-27] MEDS: APIXABAN 5 MG TABLET 2.5 MG PO ×2 (09:01→20:41)
[2023-10-27] MEDS: PREGABALIN 50 MG CAPSULE PO ×2 (09:01→20:41)
[2023-10-27] MEDS: LACTOBACILLUS ACIDOPHILUS 1 TABLET 1 TAB PO (09:02)
[2023-10-27] MEDS: DULOXETINE 30 MG CAPSULE DR 60 MG PO (09:02)
[2023-10-27] MEDS: FOLIC ACID 1 MG TABLET 3 MG PO (09:02)
[2023-10-27] MEDS: MULTIVITAMIN/MINERALS 1 TABLET 1 TAB PO (09:02)
[2023-10-27] MEDS: ASCORBIC ACID 500 MG TABLET 1000 MG PO (09:02)
[2023-10-27] MEDS: FERROUS SULFATE 325 MG TABLET PO (09:02)
[2023-10-27] MEDS: METOPROLOL SUCCINATE (XL) 25 MG TAB PO ×2 (09:03→20:40)
[2023-10-27] MEDS: FUROSEMIDE 40 MG TABLET PO (09:03)
[2023-10-27] MEDS: OXYCODONE 5 MG TABLET 2.5 MG PO ×2 (09:03→23:23)
[2023-10-27] MEDS: SODIUM CHLORIDE 0.9 % (FLUSH) 10 ML SYRINGE 5 ML IVF ×2 (09:04→20:42)
--- NOTE | 2023-10-27 10:37 | PM.IMPN1 ---
Progress Note: A&P Assessment and plan (1) Sepsis with acute hypoxic respiratory failure: Problem details: Patient meets criteria for sepsis with fever (103 F in [facility]), tachycardia (109), hypotension (100/43), altered mental status, elevated troponin, hypoxia (85%). Vitals have improved with resuscitation and antibiotics in the emergency department. Sepsis and hypoxic respiratory failure both resolved by October 26. Status: Acute (2) Pulmonary infiltrates: Problem details: Patient has bilateral upper lobe patchy infiltrates in this clinical setting more suggestive of infectious rather than heart failure. Notably in April of 2023 CT scan showed similar abnormal findings only appeared quite a bit worse. At that time thought more likely to be heart failure. She clinically responded to diuresis and then TAVR. Since then she has had a TAVR to address her heart failure from aortic stenosis. Chronic dyspnea resolved with TAVR. Unclear if methotrexate is playing a role in pulmonary infiltrates. Possibly infiltrates are related to rheumatoid arthritis and interstitial lung disease. May need bronchoscopy or other intervention to determine the cause of pulmonary infiltrates. I spoke with Infectious Disease specification consultant , Dr. Osei, who recommended treatment for hospital-acquired pneumonia. He thinks it is premature to do an evaluation for immune compromised causes of pneumonia such as PJP, Nocardia, other fungal infections. Pending phone consultation with rheumatology and pulmonology. Status: Acute (3) Pneumonia: Problem details: Will treat as hospital-acquired pneumonia due to recent hospitalization and developing a pneumonia well on ceftriaxone/cephalexin. Clinically improving. Status: Acute (4) Rheumatoid arthritis: Problem details: On methotrexate and prednisone. Unclear if methotrexate contributing to pulmonary infiltrates or infiltrates related to rheumatoid arthritis. Status: Acute (5) Acute UTI: Problem details: Last admission was thought to be triggered by UTI causing sepsis. Urine grew Klebsiella pneumonia and was treated with ceftriaxone and Keflex. Urinalysis looks much better today. Does not appear to be the cause of current sepsis. Status: Acute (6) Congestive heart failure: Problem details: History of heart failure thought primarily due to severe aortic stenosis now 4 months status post TAVR with apparently good symptomatic relief of exertional dyspnea. 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 Has lost most vision in left eye Status: Acute (9) Immunocompromised state due to drug therapy: Problem details: On chronic methotrexate 17.5 mg weekly and prednisone 7.5 mg daily Status: Acute (10) Generalized weakness: Problem details: Profoundly weak on admission likely due to acute illness as well as relative adrenal insufficiency. Much better today with stress dose corticosteroids and antibiotics. Same thing happened last week and she had good clinical improvement with treating her infection. Status: Acute (11) Sciatica: Problem details: Has been on [place] prior to admission now on low-dose oxycodone. Will need physical therapy and optimally wean off of opioid pain medicines to maximize independent ambulation. Pain significantly improved during last hospital stay despite weaning opioids. Study: CT-Spine Lumbar W/IV-10/09/2023 2:34:37 PM Impression: 1. No acute osseous injury within the lumbar spine. 2. Postsurgical change of the anterior and posterior fusion at L4-5. 3. Prior posterior decompression at L2, L3 and L4. 4. At L1-2, [id number] spinal canal and left neural foraminal narrowing. 5. At L5-S1, moderate to severe right and mild left neural foraminal stenosis. Status: Acute (12) Chronic pain: Problem details: She does have specific pain suggestive of sciatic on the right without obvious neurologic deficits. It appears fibromyalgia and rheumatoid arthritis pain are significant cause of pain as well. Started on Lyrica. Switch from paroxetine to duloxetine. Wean off low-dose oxycodone as pain allows. Status: Acute (13) Fibromyalgia: Problem details: She is having generalized pain and generalized tenderness to palpation. Previous diagnosis of fibromyalgia. Start on pregabalin. Switch from paroxetine to duloxetine. Wean off opioids Status: Acute (14) Adrenal insufficiency: Problem details: She has had the appearance of adrenal insufficiency with each hospital admission. Chronically on prednisone 7.5 mg. Seems to respond very well to short course of IV hydrocortisone. Status: Acute Plan Patient is admitted with sepsis and acute hypoxic respiratory failure with pulmonary infiltrates. This developed while taking antibiotics for a episode of sepsis due to Klebsiella pneumonia UTI. She was clinically improving prior to the onset of acute fever, hypotension, tachycardia, weakness, altered mental status/somnolence. Now quickly got clinically better again. Her clinical scenario is complex. I wonder for pulmonary infiltrates are chronic dating back at least 6 months twin she was hospitalized in April. At that time she also clearly had congestive heart failure but may have also had these similar pulmonary infiltrates. Heart failure is clearly better. Pulmonary infiltrates are still present but also look better. Notably she does not have typical signs and symptoms of pneumonia such as cough and dyspnea. She did have hypoxia and fever yesterday morning but those have resolved after a few hours in the hospital. Need to evaluate for the possibility that she has a chronic pulmonary infiltrate possibly related to rheumatoid arthritis or methotrexate. May need bronchoscopy to evaluate this. Methotrexate and prednisone also make her immune compromised. ID specification consultant recommends temporarily holding off on workup for disease due to opportunistic infections pending her clinical course. Will need obvious aggressive evaluation and treatment if not getting better or getting worse. Pending rheumatology and pulmonary phone consultations. She also seems to have a component of relative adrenal insufficiency with her recent admissions. These respond nicely to IV hydrocortisone for short course. Time Spent With Patient Total time spent: Total time spent today is 70 minutes, 50 minutes in coordination care discussing with patient and other providers ongoing evaluation management of sepsis, pneumonia, pulmonary infiltrates, rheumatoid arthritis Subjective Date Seen: 10/27/23 Interval history: Tanner James is a 78 year old female admitted to the hospital with somnolence weakness fever and hypoxia. She was discharged from the hospital after treatment for a UTI with sepsis from Klebsiella pneumonia yesterday. She was discharged to [address] [place] [address]. For the last few days in the hospital and yesterday in the skilled nursing she reportedly felt fine without any new problems or concerns, just the weakness from her recent illness. She has not had a fever or a cough or shortness of breath or hypoxia in the last few days. Summary from the past few months: Patient has had multiple hospital admissions over the last 6 months: April 2023 she was hospitalized here for weakness. At that time there was concern of multifactorial weakness including some heart failure with severe aortic stenosis, COPD, UTI, type 2 non STEMI. She had a CT of her chest which showed bilateral extensive interstitial airspace opacities consistent with pulmonary edema or multifocal infiltrates. At the time this was thought to be more likely heart failure. At the time she was on methotrexate and there was concern about some pulmonary toxicity so the methotrexate was held. She was admitted for a week, discharge to home, readmitted 2 days later with ongoing weakness and fever. She was transferred to [facility] because of her fever and heart disease. At [facility] her fever resolved spontaneously. She was deemed an appropriate candidate for TAVR. Discharge to group home facility for about 1 month. 06/16/2023 hospitalized at [place] for TAVR. Procedure went well. She reports resolution of her cardio-respiratory symptoms after TAVR. She had been using and nebulizer regularly for her dyspnea. After her TAVR she has not required any inhaled treatments. 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 Readmitted on June 21 for management of this. The hematoma has resolved but she still reporting pain in the area of her right groin, right abdomen, right thigh. Repeat CT imaging on October 09 2023 showed resolution of the hematoma. 08/09/2023 she saw her die drawing checker. He noted synovitis and restarted her methotrexate 17.5 mg weekly. He thought she was on prednisone 10 mg daily though she probably is on 7.5 mg daily. 10/09/2023 she was seen in our emergency department with 2 weeks of right low back pain radiating into her leg and foot. CT at that time showed moderate to severe right foraminal stenosis at L5-S1. Previous fusion at L4-5 and posterior decompression at L2-4. CT abdomen and pelvis showed no residual hematoma. She was given a course of prednisone for treatment of possible sciatica. She tells me now that it might have helped a little bit but she is unsure of this. She has been taking hydrocodone acetaminophen as needed for pain, she has had approximately 53 tablets in 24 days. She was prescribed physical therapy which is of uncertain benefit. The course of therapy has been completed. During her recent hospital stay she had improvement in her low back pain and sciatica going down her right leg. She was more mobile. She was requiring less pain medication and was able to wean down on her chronic opioid therapy. Her mood and mental status were quite good. October 26: Patient reports feeling much better today. The constitutional symptoms that she had yesterday as well as on her admission on October 20 include profound weakness, somnolence, confusion have largely resolved overnight. She reports feeling much better today. She she is alert and interacting with staff, ambulating with therapy, eating breakfast. She has no specific symptoms or concerns today. Including no shortness of breath or cough or chest pain Exam Narrative: Exam Narrative: She is alert and appears in no distress. Mood and affect are bright. She is oriented to her circumstances. Breathing is unlabored on room air. Respirations with a few crackles bilaterally. Otherwise clear to auscultation. No wheezing or prolonged x-ray phase good air exchange in all lung [place]. Cardiovascular: S1, S2, regular rate and rhythm. Abdomen is soft without tenderness or mass. Extremities with 2+ edema but no redness or tenderness. Const: Vital Signs, click to edit/add: Vital Signs - 24 hr 10/26/23 11:40 10/26/23 11:52 10/26/23 12:00 Temperature Pulse Rate 78 76 Pulse Rate [Pulse Oximeter] 87 Pulse Rate [Right Pulse Oximeter] Respiratory Rate Blood Pressure Blood Pressure [Le ft Arm] Blood Pressure [Le ft Upper Arm] 109/43 L Pulse Oximetry 96 97 97 Oxygen Delivery Me thod Nasal Cannula 10/26/23 12:02 10/26/23 12:30 10/26/23 12:32 Temperature Pulse Rate 76 76 79 Pulse Rate [Pulse Oximeter] Pulse Rate [Right Pulse Oximeter] Respiratory Rate Blood Pressure 100/43 L 117/53 L Blood Pressure [Le ft Arm] Blood Pressure [Le ft Upper Arm] Pulse Oximetry 97 98 98 Oxygen Delivery Me thod 10/26/23 12:35 10/26/23 13:00 10/26/23 13:02 Temperature 98.3 F Pulse Rate 70 70 Pulse Rate [Pulse Oximeter] Pulse Rate [Right Pulse Oximeter] Respiratory Rate Blood Pressure 109/45 L Blood Pressure [Le ft Arm] Blood Pressure [Le ft Upper Arm] Pulse Oximetry 96 96 Oxygen Delivery Me thod 10/26/23 13:03 10/26/23 13:30 10/26/23 13:31 Temperature Pulse Rate 72 67 68 Pulse Rate [Pulse Oximeter] Pulse Rate [Right Pulse Oximeter] Respiratory Rate Blood Pressure 110/46 L Blood Pressure [Le ft Arm] Blood Pressure [Le ft Upper Arm] Pulse Oximetry 96 96 97 Oxygen Delivery Me thod 10/26/23 13:32 10/26/23 14:00 10/26/23 14:02 Temperature Pulse Rate 68 74 73 Pulse Rate [Pulse Oximeter] Pulse Rate [Right Pulse Oximeter] Respiratory Rate Blood Pressure 111/52 L Blood Pressure [Le ft Arm] Blood Pressure [Le ft Upper Arm] Pulse Oximetry 97 97 97 Oxygen Delivery Me thod 10/26/23 14:32 10/26/23 15:13 10/26/23 15:18 Temperature 98.3 F Pulse Rate Pulse Rate [Pulse Oximeter] Pulse Rate [Right Pulse Oximeter] 78 Respiratory Rate 20 20 Blood Pressure Blood Pressure [Le ft Arm] 129/55 L Blood Pressure [Le ft Upper Arm] Pulse Oximetry 92 94 94 Oxygen Delivery [facility] Room Air Room Air 10/26/23 16:39 10/26/23 18:19 10/26/23 20:01 Temperature 98.6 F Pulse Rate 66 Pulse Rate [Pulse Oximeter] Pulse Rate [Right Pulse Oximeter] 93 Respiratory Rate 20 20 Blood Pressure Blood Pressure [Le ft Arm] 137/63 Blood Pressure [Le ft Upper Arm] Pulse Oximetry 94 93 Oxygen Delivery [facility] Room Air Room Air 10/26/23 22:37 10/26/23 22:56 10/26/23 23:00 Temperature Pulse Rate 84 Pulse Rate [Pulse Oximeter] Pulse Rate [Right Pulse Oximeter] Respiratory Rate 20 20 Blood Pressure Blood Pressure [Le ft Arm] Blood Pressure [Le ft Upper Arm] Pulse Oximetry 93 Oxygen Delivery [facility] Room Air 10/26/23 23:00 10/27/23 04:00 10/27/23 07:30 Temperature 99.2 F 98.3 F Pulse Rate Pulse Rate [Pulse Oximeter] Pulse Rate [Right Pulse Oximeter] 83 75 Respiratory Rate 20 18 18 Blood Pressure Blood Pressure [Le ft Arm] 145/63 H 142/68 H Blood Pressure [Le ft Upper Arm] Pulse Oximetry 94 95 97 Oxygen Delivery [facility] Room Air Room Air Room Air 10/27/23 07:30 10/27/23 07:30 10/27/23 07:59 Temperature 97.9 F Pulse Rate 69 Pulse Rate [Pulse Oximeter] Pulse Rate [Right Pulse Oximeter] 71 71 Respiratory Rate 18 18 Blood Pressure Blood Pressure [Le ft Arm] 149/65 H Blood Pressure [Le ft Upper Arm] Pulse Oximetry 97 Oxygen Delivery [facility] Room Air Documenting provider has reviewed patient's vital signs: yes Labs Labs: Laboratory Results - last 24 hr 10/26/23 10/26/23 10/26/23 10:15 10:20 15:05 WBC 7.91 RBC 3.60 L Hgb 12.2 Hct 37.2 MCV 103 H MCH 34 MCHC 33 RDW Coeff of [place] 17.0 H Plt Count 78 L Neut % (Auto) 72.1 H Lymph % (Auto) 15.9 L [place] % (Auto) 7.8 Eos % (Auto) 3.2 Baso % (Auto) 0.4 Neut # (Auto) 5.70 Lymph # (Auto) 1.30 [place] # (Auto) 0.60 Eos # (Auto) 0.25 Baso # (Auto) 0.03 Abs Immat Gran (auto) 0.05 Imm/Tot Granulo (auto) 0.6 INR 1.09 VBG pH 7.417 VBG pCO2 45 VBG pO2 < 30.1 VBG HCO3 29 H Sodium 136 Potassium 3.7 Chloride 103 Carbon Dioxide 28 Anion Gap 5 L BUN 27 Creatinine 1.0 Estimated Creat Clear 39.59 Estimated GFR 58 Glucose 89 Lactate 1.1 Calcium 8.3 L Total Bilirubin 0.8 AST 34 ALT 22 Alkaline Phosphatase 66 Troponin I 0.08 H* 0.09 H* NT-Pro-B Natriuret Pep Total Protein 5.8 L Albumin 3.2 L Urine Color Urine Appearance Urine pH Ur Specific [place] Urine Protein Urine Glucose (UA) Urine Ketones Urine Blood Urine Nitrite Urine Bilirubin Urine Urobilinogen Ur Leukocyte Esterase Urine RBC Urine WBC Ur Squamous Epith Cells Urine Bacteria Urine L. pneumophilia Ag Urine Strep pneumoniae Ag SARS-CoV-2 (PCR) Negative SARS-CoV-2 Influenza Type A (PCR) Negative PCR FLU A Influenza Type B (PCR) Negative PCR FLU B RSV (PCR) Negative PCR RSV Lab Acknowledgement 10/26/23 10/26/23 10/27/23 15:13 Unknown 06:06 WBC 7.05 RBC 3.24 L Hgb 10.9 L Hct 33.3 MCV 103 H MCH 34 MCHC 33 RDW Coeff of [place] 16.3 H Plt Count 80 L Neut % (Auto) 81.3 H Lymph % (Auto) 14.3 L [place] % (Auto) 3.1 Eos % (Auto) 0.3 Baso % (Auto) 0.1 Neut # (Auto) 5.70 Lymph # (Auto) 1.00 [place] # (Auto) 0.20 Eos # (Auto) 0.02 Baso # (Auto) 0.01 Abs Immat Gran (auto) 0.06 Imm/Tot Granulo (auto) 0.9 INR VBG pH VBG pCO2 VBG pO2 VBG HCO3 Sodium 137 Potassium 3.5 L Chloride 108 Carbon Dioxide 25 Anion Gap 4 L BUN 25 Creatinine 0.9 Estimated Creat Clear 39.59 Estimated GFR 66 Glucose 140 H Lactate Calcium 7.9 L Total Bilirubin AST ALT Alkaline Phosphatase Troponin I 0.04 NT-Pro-B Natriuret Pep 3050 Total Protein Albumin Urine Color Yellow Urine Appearance Clear Urine pH 6.0 Ur Specific [place] 1.025 Urine Protein Negative Urine Glucose (UA) Negative Urine Ketones Negative Urine Blood Trace-intact A Urine Nitrite Negative Urine Bilirubin Negative Urine Urobilinogen 0.2 Ur Leukocyte Esterase Negative Urine RBC 2-5 A Urine WBC 0-2 Ur Squamous Epith Cells None Urine Bacteria None Urine L. pneumophilia Ag L. pneumo Negative Urine Strep pneumoniae Ag S. pneumo Negative SARS-CoV-2 (PCR) Influenza Type A (PCR) Influenza Type B (PCR) RSV (PCR) Lab Acknowledgement 10/27/23 08:03 WBC RBC Hgb Hct MCV MCH MCHC RDW Coeff of [place] Plt Count Neut % (Auto) Lymph % (Auto) [place] % (Auto) Eos % (Auto) Baso % (Auto) Neut # (Auto) Lymph # (Auto) [place] # (Auto) Eos # (Auto) Baso # (Auto) Abs Immat Gran (auto) Imm/Tot Granulo (auto) INR VBG pH VBG pCO2 VBG pO2 VBG HCO3 Sodium Potassium Chloride Carbon Dioxide Anion Gap BUN Creatinine Estimated Creat Clear Estimated GFR Glucose Lactate Calcium Total Bilirubin AST ALT Alkaline Phosphatase Troponin I NT-Pro-B Natriuret Pep Total Protein Albumin Urine Color Urine Appearance Urine pH Ur Specific [place] Urine Protein Urine Glucose (UA) Urine Ketones Urine Blood Urine Nitrite Urine Bilirubin Urine Urobilinogen Ur Leukocyte Esterase Urine RBC Urine WBC Ur Squamous Epith Cells Urine Bacteria Urine L. pneumophilia Ag Urine Strep pneumoniae Ag SARS-CoV-2 (PCR) Influenza Type A (PCR) Influenza Type B (PCR) RSV (PCR) Lab Acknowledgement Test Added
[2023-10-27] MEDS: predniSONE 20 MG TABLET PO (13:02)
[2023-10-27] MEDS: AZITHROMYCIN 250 MG TABLET 500 MG PO (15:42)
--- NOTE | 2023-10-27 18:50 | PC.NURSE ---
End of shift. pt was alert x3 this am but later in the day she was more confused and md was updated. Arango was d/c intact. She is up with SBA, FWW and GB. She has been continent of bladder since arango was d/c. Pt has been using call light appropriately. Dressing covering abdominal wound, it is changed 3 times a week, she was in the chair last time I tried to change it. supplies are in the room. PRN Tylenol and Oxycodone administered this morning. bilateral TOMMIE stockings on and off SL is patent. she is eating, drinking and voiding.
[2023-10-27] MEDS: ROSUVASTATIN CALCIUM 10 MG TABLET 5 MG PO (20:40)
[2023-10-28] VITALS (7 sets, daily range): BP systolic 121–161; BP diastolic 58–79; PULSE 53–92; RESP 16–20; TEMP 36.4–36.7; O2SAT 95–99
[2023-10-28] MEDS: PIPERACILLIN/TAZOBACTAM 3.375 GM in 0.9 % SODIUM CHLORIDE Mini-bag 100 ML IVPB ×3 (05:58→22:03)
[2023-10-28 06:32] LABS: Basophils Absolute Auto 0.02 K/uL (0.00-0.30); Basophils Percent Auto 0.3 % (0.0-3.0); Eosinophils Absolute Auto 0.04 K/uL (0.00-0.50); Eosinophils Percent Auto 0.5 % (0.0-7.0); Hematocrit 33.1 % (33.0-51.0); Immature Granulocytes Abs Auto 0.04 K/uL (0.00-0.30); Immature Granulocytes Pct Auto 0.5 %; Lymphocytes Percent Auto 13.9 % (20-44); Mean Corpuscular HGB Conc 33 gm/dL (32-36); Mean Corpuscular Hemoglobin 34 pg (26-34); Mean Corpuscular Volume 101 fL (80-100); Monocytes Percent Auto 7.6 % (0.0-11.0); Neutrophils Percent Auto 77.2 % (42.0-72.0); Platelet Count* 92 K/uL (140-440); Red Blood Count 3.27 m/uL (4.00-5.20); White Blood Count* 7.98 K/uL (4.50-11.00)
[2023-10-28 06:36] LABS: Slide Review Reflex No
--- NOTE | 2023-10-28 06:52 | PC.NURSE ---
: pleasant and cooperative. A x 1 with omayra and alysa. Sputum sample sent to lab. VSS.
[2023-10-28 06:54] LABS: Chloride* 110 mmol/L (96-114)
[2023-10-28 06:55] LABS: Potassium* 3.3 mmol/L (3.6-5.1); Sodium* 139 mmol/L (135-149)
[2023-10-28 06:57] LABS: Creatinine* 0.9 mg/dL (0.5-1.5); Est. Creatinine Clearance* 39.59; Estimated Glomerular Filt Rate 66 ml/min
[2023-10-28 06:58] LABS: Anion Gap 3 mEq/L (7-15); Blood Urea Nitrogen* 29 mg/dL (7-30); Calcium* 8.5 mg/dL (8.4-10.6); Carbon Dioxide* 26 mmol/L (20-32); Glucose* 136 mg/dL (60-115)
[2023-10-28] MEDS: predniSONE 20 MG TABLET PO (07:47)
[2023-10-28] MEDS: SODIUM CHLORIDE 0.9 % (FLUSH) 10 ML SYRINGE 5 ML IVF ×2 (07:56→20:57)
[2023-10-28] MEDS: POTASSIUM BICARB 25 MEQ EFFERVESCENT TAB 50 MEQ PO (09:31)
[2023-10-28] MEDS: FUROSEMIDE 40 MG TABLET PO (09:32)
[2023-10-28] MEDS: DULOXETINE 30 MG CAPSULE DR 60 MG PO (09:32)
[2023-10-28] MEDS: METOPROLOL SUCCINATE (XL) 25 MG TAB PO ×2 (09:33→20:55)
[2023-10-28] MEDS: FERROUS SULFATE 325 MG TABLET PO (09:33)
[2023-10-28] MEDS: LACTOBACILLUS ACIDOPHILUS 1 TABLET 1 TAB PO (09:33)
[2023-10-28] MEDS: FOLIC ACID 1 MG TABLET 3 MG PO (09:34)
[2023-10-28] MEDS: APIXABAN 5 MG TABLET 2.5 MG PO ×2 (09:34→20:55)
[2023-10-28] MEDS: ASCORBIC ACID 500 MG TABLET 1000 MG PO (09:35)
[2023-10-28] MEDS: MULTIVITAMIN/MINERALS 1 TABLET 1 TAB PO (09:35)
[2023-10-28] MEDS: PREGABALIN 50 MG CAPSULE PO ×2 (09:44→20:55)
--- NOTE | 2023-10-28 10:11 | P.IMPN_ITS ---
Progress Note: A&P Assessment and plan (1) Sepsis with acute hypoxic respiratory failure: Problem details: Patient meets criteria for sepsis with fever (103 F in [facility]), tachycardia (109), hypotension (100/43), altered mental status, elevated troponin, hypoxia (85%). Vitals have improved with resuscitation and antibiotics in the emergency department. Sepsis and hypoxic respiratory failure both resolved by October 26. Status: Acute (2) Pulmonary infiltrates: Problem details: Patient has bilateral upper lobe patchy infiltrates in this clinical setting more suggestive of infectious rather than heart failure. Notably in September 2022 she had similar but less prominent infiltrates with a similar ground glass appearance and distribution primarily in the upper lobes. April of 2023 CT scan showed similar abnormal findings only appeared quite a bit worse. At that time she clinically had acute heart failure. She clinically responded to diuresis and then TAVR in May. Chronic dyspnea resolved with TAVR. Unclear if methotrexate is playing a role in pulmonary infiltrates. Other consideration is that infiltrates are related to rheumatoid arthritis and rheumatoid interstitial lung disease. May need bronchoscopy or other intervention to determine the cause of pulmonary infiltrates. I spoke with Infectious Disease financial planning consultant , Dr. Osei, who recommended treatment for hospital-acquired pneumonia. He thinks it is premature to do an evaluation for opportunistic infections such as PJP, Nocardia, other fungal infections. Her molding line operator recommended holding her methotrexate for now and he would evaluate her on their next appointment on December 12. He recommended a higher dose of prednisone, 15 mg daily, pending that appointment Her armed custom protection officer noted that and a a CT scan done at their clinic she had some infiltrates a year ago. Local City Driver indicates that she does have definite bronchiectasis. PFTs have showed some obstruction but she thinks the obstruction is from bronchiectasis rather than COPD. She was supposed to have an appointment with pulmonology today and that is being rescheduled. Pulmonology is considering bronchoscopy. Status: Acute (3) Pneumonia: Problem details: Will treat as hospital-acquired pneumonia due to recent hospitalization and developing a pneumonia while on ceftriaxone/cephalexin. Clinically quickly improving. On Zithromax and Zosyn. MRSA nasal swab negative Status: Acute (4) Rheumatoid arthritis: Problem details: On methotrexate and prednisone. Unclear if methotrexate contributing to pulmonary infiltrates or infiltrates related to rheumatoid arthritis. Per Rheumatology, hold methotrexate for now and increase prednisone to 15 mg daily pending appointment on December 12. Status: Acute (5) Acute UTI: Problem details: Last admission was thought to be triggered by UTI causing sepsis. Urine grew Klebsiella pneumonia and was treated with ceftriaxone and Keflex. Urinalysis looks much better today. Does not appear to be the cause of current sepsis. Status: Acute (6) Congestive heart failure: Problem details: History of heart failure thought primarily due to severe aortic stenosis now 4 months status post TAVR with apparently good relief of exertional dyspnea. No evidence of heart failure exacerbation since TAVR. 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 Has lost most vision in left eye Status: Acute (9) Immunocompromised state due to drug therapy: Problem details: On chronic methotrexate 17.5 mg weekly and prednisone 7.5 mg daily. Infectious disease financial planning consultant recommended treatment for hospital-acquired pneumonia due to recent hospital stay. Follow-up with infectious disease if not getting better or getting worse. At that point consider evaluation for opportunistic infections. Status: Acute (10) Generalized weakness: Problem details: Profoundly weak on admission likely due to acute illness as well as relative adrenal insufficiency. Much better today with stress dose corticosteroids and antibiotics. Same thing happened last week and she had good clinical improvement with treating her infection. Status: Acute (11) Sciatica: Problem details: Has been on [place] prior to admission now on low-dose oxycodone. Will need physical therapy and optimally wean off of opioid pain medicines to maximize independent ambulation. Pain significantly improved during last hospital stay despite weaning opioids. Back/hip pain much better on this admission. Study: CT-Spine Lumbar W/IV-10/09/2023 2:34:37 PM Impression: 1. No acute osseous injury within the lumbar spine. 2. Postsurgical change of the anterior and posterior fusion at L4-5. 3. Prior posterior decompression at L2, L3 and L4. 4. At L1-2, [id number] spinal canal and left neural foraminal narrowing. 5. At L5-S1, moderate to severe right and mild left neural foraminal stenosis. Status: Acute (12) Chronic pain: Problem details: She does have specific pain suggestive of sciatic on the right without obvious neurologic deficits. It appears fibromyalgia and rheumatoid arthritis pain are significant cause of pain as well. Started on Lyrica. Switch from paroxetine to duloxetine. Wean off low-dose oxycodone as pain allows. Status: Acute (13) Fibromyalgia: Problem details: She is having generalized pain and generalized tenderness to palpation. Previous diagnosis of fibromyalgia. Start on pregabalin. Switch from paroxetine to duloxetine. Wean off opioids Status: Acute (14) Adrenal insufficiency: Problem details: She has had the appearance of adrenal insufficiency with each hospital admission. Chronically on prednisone 7.5 mg. Seems to respond very well to short course of IV hydrocortisone. Status: Acute (15) COPD (chronic obstructive pulmonary disease): Problem details: Probably does not have COPD. PFT's show some obstruction but probably due to bronchiectasis according to her armed custom protection officer Status: Acute (16) Acute confusion: Problem details: Patient is observed by nursing staff to have episodic events of confusion. These reliably occur when she is ill on admission. They tend to improve when she is treated for her illness as well as treated with stress dose steroids. She may also have a component of hospital-acquired delirium. She is still getting an occasional oxycodone 2.5 mg. She has been on chronic opioid therapy for years. Her [place] on 10/22/2023 was 23/30. Status: Acute (17) Weakness: Problem details: Profound weakness present with each acute illness and hospitalization and resolves fairly quickly when given stress dose steroids, fluids and antibiotics. Status: Acute (18) Depression: Problem details: Patient has longstanding depression and anxiety. With recent admission I switched her from paroxetine to duloxetine to see if her chronic pain/fibromyalgia would improve. Status: Acute (19) Chronic anxiety: Problem details: Chronic anxiety and depression. September 2019 for admission I switched her from paroxetine to duloxetine to see if she would get better pain control with her fibromyalgia. Status: Chronic (20) Chronic use of steroids: Problem details: Prednisone increased to 15 mg daily pending rheumatology follow-up 12/13/2023. She needs stress dose steroids with acute illness Status: Chronic Plan Continue in hospital for ongoing IV antibiotics for treatment of apparent sepsis pending cultures. Clinically much improved. If clinically stable and cultures are negative possible discharge tomorrow. Needs outpatient follow-up with pulmonology, Cardiology, Rheumatology. These appointments are already arranged or being arranged by the consultants. Time Spent With Patient Total time spent: Total time spent today is 50 minutes, 40 minutes in coordination of care discussing with patient other providers ongoing evaluation management of sepsis and confusion and weakness and rheumatoid arthritis and pneumonia Subjective Date Seen: 10/28/23 Interval history: Tanner James is a 78 year old female admitted to the hospital with somnolence weakness fever and hypoxia. She was discharged from the hospital after treatment for a UTI with sepsis from Klebsiella pneumonia yesterday. She was discharged to [address] [place] [address]. For the last few days in the hospital and yesterday in the custodial she reportedly felt fine without any new problems or concerns, just the weakness from her recent illness. She has not had a fever or a cough or shortness of breath or hypoxia in the last few days. Summary from the past few months: Patient has had multiple hospital admissions over the last 6 months: April 2023 she was hospitalized here for weakness. At that time there was concern of multifactorial weakness including some heart failure with severe aortic stenosis, COPD, UTI, type 2 non STEMI. She had a CT of her chest which showed bilateral extensive interstitial airspace opacities consistent with pulmonary edema or multifocal infiltrates. At the time this was thought to be more likely heart failure. At the time she was on methotrexate and there was concern about some pulmonary toxicity so the methotrexate was held. She was admitted for a week, discharge to home, readmitted 2 days later with ongoing weakness and fever. She was transferred to [facility] because of her fever and heart disease. At [facility] her fever resolved spontaneously. She was deemed an appropriate candidate for TAVR. Discharge to shelter facility for about 1 month. 06/16/2023 hospitalized at [facility] for TAVR. Procedure went well. She reports resolution of her cardio-respiratory symptoms after TAVR. She had been using and nebulizer regularly for her dyspnea. After her TAVR she has not required any inhaled treatments. 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 Readmitted on June 21 for management of this. The hematoma has resolved but she still reporting pain in the area of her right groin, right abdomen, right thigh. Repeat CT imaging on October 09 2023 showed resolution of the hematoma. 08/09/2023 she saw her molding line operator. He noted synovitis and restarted her methotrexate 17.5 mg weekly. He thought she was on prednisone 10 mg daily though she probably is on 7.5 mg daily. 10/09/2023 she was seen in our emergency department with 2 weeks of right low back pain radiating into her leg and foot. CT at that time showed moderate to severe right foraminal stenosis at L5-S1. Previous fusion at L4-5 and posterior decompression at L2-4. CT abdomen and pelvis showed no residual hematoma. She was given a course of prednisone for treatment of possible sciatica. She tells me now that it might have helped a little bit but she is unsure of this. She has been taking hydrocodone acetaminophen as needed for pain, she has had approximately 53 tablets in 24 days. She was prescribed physical therapy which is of uncertain benefit. The course of therapy has been completed. During her recent hospital stay she had improvement in her low back pain and sciatica going down her right leg. She was more mobile. She was requiring less pain medication and was able to wean down on her chronic opioid therapy. Her mood and mental status were quite good. October 26: Patient reports feeling much better today. The constitutional symptoms that she had yesterday as well as on her admission on October 20 include profound weakness, somnolence, confusion have largely resolved overnight. She reports feeling much better today. She she is alert and interacting with staff, ambulating with therapy, eating breakfast. She has no specific symptoms or concerns today. Including no shortness of breath or cough or chest pain. October 27: Nursing staff note occasional episodes of confusion. I have evaluated her on 4 occasions in the last 2 days for she seems to be at baseline mental status. No obvious delirium. Her mobility is back to baseline. Her mood and affect are bright other than some anxiety about her recurrent hospital admissions. She is eating well. I observe her to walk with a 4 wheeled walker quite well. Not having significant pain with ambulation. Exam Narrative: Exam Narrative: Walking fairly well with a four-wheel walker. Needs standby assist to stand. Walked 40 ft before getting short of breath. Alert and oriented. Good recall of recent events. Respirations are clear to auscultation except for occasional crackle. No wheezing. No consolidation. Cardiovascular: S1, S2, regular rate and rhythm. Abdomen is soft without tenderness or mass. Extremities with 1+ edema. Chronic bruising. No erythema or tenderness. No focal weakness. Const: Vital Signs, click to edit/add: Vital Signs - 24 hr 10/27/23 11:16 10/27/23 15:00 10/27/23 15:30 Temperature 97.7 F 97.3 F L Pulse Rate Pulse Rate [Right Pulse Oximeter] 70 76 76 Respiratory Rate 18 18 18 Blood Pressure [Le ft Arm] 130/55 L 167/66 H Pulse Oximetry [address] 10/27/23 16:33 10/27/23 16:46 10/27/23 16:46 Temperature Pulse Rate 67 Pulse Rate [Right Pulse Oximeter] Respiratory Rate 18 Blood Pressure [Le ft Arm] Pulse Oximetry [address] [facility] 10/27/23 19:40 10/27/23 22:44 10/27/23 22:44 Temperature 98.1 F Pulse Rate Pulse Rate [Right Pulse Oximeter] 74 Respiratory Rate 18 18 18 Blood Pressure [Le ft Arm] 140/56 H Pulse Oximetry [address] Room Air 10/27/23 22:53 10/27/23 23:15 10/28/23 04:14 Temperature 98.1 F 97.6 F Pulse Rate 63 Pulse Rate [Right Pulse Oximeter] 69 74 Respiratory Rate 18 20 Blood Pressure [Le ft Arm] 142/56 H 161/68 H Pulse Oximetry [address] [facility] Room Air 10/28/23 07:00 Temperature 97.8 F Pulse Rate Pulse Rate [Right Pulse Oximeter] 61 Respiratory Rate 16 Blood Pressure [Le ft Arm] 152/69 H Pulse Oximetry [address] [facility] Documenting provider has reviewed patient's vital signs: yes Labs Labs: Laboratory Results - last 24 hr 10/28/23 05:58 WBC 7.98 RBC 3.27 L Hgb 11.0 L Hct 33.1 MCV 101 H MCH 34 MCHC 33 RDW Coeff of Navneet 16.0 H Plt Count 92 L Neut % (Auto) 77.2 H Lymph % (Auto) 13.9 L Wink[place] % (Auto) 7.6 Eos % (Auto) 0.5 Baso % (Auto) 0.3 Neut # (Auto) 6.20 Lymph # (Auto) 1.10 [place]ink[place] # (Auto) 0.60 Eos # (Auto) 0.04 Baso # (Auto) 0.02 Abs Immat Gran (auto) 0.04 Imm/Tot Granulo (auto) 0.5 Sodium 139 Potassium 3.3 L Chloride 110 Carbon Dioxide 26 Anion Gap 3 L BUN 29 Creatinine 0.9 Estimated Creat Clear 39.59 Estimated GFR 66 Glucose 136 H Calcium 8.5
[2023-10-28] MEDS: 0.9 % SODIUM CHLORIDE 250 ml IV (12:27)
[2023-10-28] MEDS: AZITHROMYCIN 250 MG TABLET 500 MG PO (14:49)
--- NOTE | 2023-10-28 16:15 | PC.SOCIAL ---
Addendum entered by HAKAN Vickers 10/29/23 11:36: PAS completed and submitted prior to discharge. Confirmation #[id number]. Addendum entered by HAKAN Vickers 10/28/23 16:55: used car make ready worker was informed pt has an appointment at wound care tomorrow morning at 11:00 and that dtr should pick pt up from that appointment. Called and left message for dtr with this information. press worker helper to follow up tomorrow as needed. Original Note: Discharge planning: Received call from [facility] at [facility] states they can accept pt for admit tomorrow 10/29/23 between 10-noon. Called dtr Claribel, who is pleased with this plan and will pick pt up for transport at 10:00am. used car make ready worker to follow up as needed.
--- NOTE | 2023-10-28 19:35 | PC.NURSE ---
End of shift: Patient pleasant and cooperative, A&O. VSS, afebrile, SpO2 maintained above 90% on RA. Lung sounds CTA. Patient reported chronic pain in her right hip this morning, rated a 4/10 managed with position change. 1 assist with gait belt and walker. Patient managing regular diet, denies N/V. ?
[2023-10-28] MEDS: ROSUVASTATIN CALCIUM 10 MG TABLET 5 MG PO (20:55)
[2023-10-28] MEDS: OXYCODONE 5 MG TABLET 2.5 MG PO (20:55)
[2023-10-29] MEDS: PIPERACILLIN/TAZOBACTAM 3.375 GM in 0.9 % SODIUM CHLORIDE Mini-bag 100 ML IVPB (03:29)
[2023-10-29 03:30] VITALS: BP 138/63; PULSE 64; RESP 18; TEMP 36.5; O2SAT 98
[2023-10-29] MEDS: OXYCODONE 5 MG TABLET 2.5 MG PO ×2 (03:44→08:01)
--- NOTE | 2023-10-29 06:22 | PC.NURSE ---
SHIFT NOTE: Pt pleasant, cooperative. A&O, forgetful. PRN Oxycodone given x2 for chronic sciatica pain, pt reported relief. Denies SOB, CP and N/V. VSS on room air. Up 1 assist with a walker, but on the last walk to the BR this AM, the pt became very weak and had increased chronic pain which then required a 2 assist to get back to bed. Otherwise, pt had an uneventful night.
[2023-10-29 06:38] LABS: Basophils Absolute Auto 0.02 K/uL (0.00-0.30); Basophils Percent Auto 0.2 % (0.0-3.0); Eosinophils Percent Auto 2.5 % (0.0-7.0); Hematocrit 36.7 % (33.0-51.0); Hemoglobin* 11.9 gm/dL (12.0-16.0); Immature Granulocytes Abs Auto 0.12 K/uL (0.00-0.30); Immature Granulocytes Pct Auto 1.5 %; Mean Corpuscular HGB Conc 32 gm/dL (32-36); Mean Corpuscular Hemoglobin 33 pg (26-34); Mean Corpuscular Volume 103 fL (80-100); Monocytes Percent Auto 7.8 % (0.0-11.0); Platelet Count* 110 K/uL (140-440); RDW Coefficient of Variation % 16.4 % (11.5-15.5); Red Blood Count 3.58 m/uL (4.00-5.20); White Blood Count* 8.08 K/uL (4.50-11.00)
[2023-10-29 06:44] LABS: Slide Review Reflex No
[2023-10-29 06:58] LABS: Chloride* 105 mmol/L (96-114); Potassium* 3.4 mmol/L (3.6-5.1); Sodium* 139 mmol/L (135-149)
[2023-10-29 07:00] VITALS: BP 137/56; PULSE 65; RESP 16; TEMP 36.6; O2SAT 93
[2023-10-29 07:01] LABS: Anion Gap 4 mEq/L (7-15); Blood Urea Nitrogen* 32 mg/dL (7-30); Carbon Dioxide* 30 mmol/L (20-32); Creatinine* 1.1 mg/dL (0.5-1.5); Est. Creatinine Clearance* 35.99; Estimated Glomerular Filt Rate 52 ml/min; Glucose* 71 mg/dL (60-115)
[2023-10-29 07:02] LABS: Calcium* 8.2 mg/dL (8.4-10.6)
[2023-10-29] MEDS: FERROUS SULFATE 325 MG TABLET PO (07:59)
[2023-10-29] MEDS: LACTOBACILLUS ACIDOPHILUS 1 TABLET 1 TAB PO (07:59)
[2023-10-29] MEDS: POTASSIUM CHLORIDE 10 MEQ CAPSULE ER PO (07:59)
[2023-10-29] MEDS: PREGABALIN 50 MG CAPSULE PO (07:59)
[2023-10-29] MEDS: DULOXETINE 30 MG CAPSULE DR 60 MG PO (08:00)
[2023-10-29] MEDS: FOLIC ACID 1 MG TABLET 3 MG PO (08:00)
[2023-10-29] MEDS: FUROSEMIDE 40 MG TABLET PO (08:00)
[2023-10-29] MEDS: MULTIVITAMIN/MINERALS 1 TABLET 1 TAB PO (08:00)
[2023-10-29] MEDS: ASCORBIC ACID 500 MG TABLET 1000 MG PO (08:00)
[2023-10-29] MEDS: predniSONE 20 MG TABLET PO (08:00)
[2023-10-29] MEDS: METOPROLOL SUCCINATE (XL) 25 MG TAB PO (08:04)
[2023-10-29] MEDS: APIXABAN 5 MG TABLET 2.5 MG PO (08:04)
--- NOTE | 2023-10-29 10:02 | P.DS_ITS ---
DS: Providers Provider Date Seen: 10/29/23 Date of admission: 10/26/23 17:42 Primary care physician: Kyle Healy MD Admitting Clinician: Alejandro Vasquez MD Attending Physician on discharge: Alejandro Vasquez MD Date of Discharge: 10/29/23 DS: Diagnosis Discharge Diagnosis (1) Sepsis with acute hypoxic respiratory failure: Status: Acute Problem details: Patient meets criteria for sepsis with fever (103 F in [facility]), tachycardia (109), hypotension (100/43), altered mental status, elevated troponin, hypoxia (85%) on admission. Vitals have improved with resuscitation and antibiotics in the emergency department. Sepsis and hypoxic respiratory failure both resolved by October 26. (2) Pulmonary infiltrates: Status: Acute Problem details: Patient has bilateral upper lobe patchy infiltrates in this clinical setting more suggestive of infectious rather than heart failure. Notably in September 2022 she had similar but less prominent infiltrates with a similar ground glass appearance and distribution primarily in the upper lobes. April of 2023 CT scan showed similar abnormal findings only appeared quite a bit worse. At that time she clinically had acute heart failure. She clinically responded to diuresis and then TAVR in May. Chronic dyspnea resolved with TAVR. Unclear if methotrexate is playing a role in pulmonary infiltrates. Other consideration is that infiltrates are related to rheumatoid arthritis and rheumatoid interstitial lung disease. I spoke with Infectious Disease pre owned sales consultant , Dr. Osei, who recommended treatment for hospital-acquired pneumonia. He thinks it is premature to do an evaluation for opportunistic infections such as PJP, Nocardia, other fungal infections. She has received a 3 day course of a Zithromax sin and Zosyn and has not shown evidence of pneumonia, fever, hypoxia, elevated white count during her hospital stay. Her highway administrative engineer recommended holding her methotrexate for now and he would evaluate her on their next appointment on December 12. He recommended a higher dose of prednisone, 15 mg daily, pending that appointment Her real estate administrative assistant noted that and a a CT scan done at their clinic she had some infiltrates a year ago. Warehouse Shipping Associate indicates that she does have definite bronchiectasis. PFTs have showed some obstruction but she thinks the obstruction is from bronchiectasis rather than COPD. She was supposed to have an appointment with pulmonology today and that is being rescheduled. Pulmonology is considering bronchoscopy. (3) Pneumonia: Status: Acute Problem details: Will treat as hospital-acquired pneumonia due to recent hospitalization and developing a pneumonia while on ceftriaxone/cephalexin. Clinically quickly improving. On Zithromax and Zosyn. MRSA nasal swab negative (4) Rheumatoid arthritis: Status: Acute Problem details: On methotrexate and prednisone. Unclear if methotrexate contributing to pulmonary infiltrates or infiltrates related to rheumatoid arthritis. Per Rheumatology, hold methotrexate for now and increase prednisone to 15 mg daily pending appointment on December 12. (5) Acute UTI: Status: Acute Problem details: Last admission was thought to be triggered by UTI causing sepsis. Urine grew Klebsiella pneumonia and was treated with ceftriaxone and Keflex. Urinalysis looks much better today. Does not appear to be the cause of current sepsis. As of October 28 she has completed treatment for her UTI. (6) Congestive heart failure: Status: Acute Problem details: History of heart failure thought primarily due to severe aortic stenosis now 4 months status post TAVR with apparently good relief of exertional dyspnea. No evidence of heart failure exacerbation since TAVR. 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 Has lost most vision in left eye (9) Immunocompromised state due to drug therapy: Status: Acute Problem details: On chronic methotrexate 17.5 mg weekly and prednisone 7.5 mg daily. Infectious disease pre owned sales consultant recommended treatment for hospital-acquired pneumonia due to recent hospital stay. (10) Generalized weakness: Status: Acute Problem details: Profoundly weak on admission likely due to acute illness as well as relative adrenal insufficiency. Much better today with stress dose corticosteroids and antibiotics. Same thing happened last week and she had good clinical improvement with treating her infection. (11) Sciatica: Status: Acute Problem details: Has been on [place] prior to admission now on low-dose oxycodone. Will need physical therapy and optimally wean off of opioid pain medicines to maximize independent ambulation. Pain significantly improved during last hospital stay despite weaning opioids. Back/hip pain much better on this admission. Study: CT-Spine Lumbar W/IV-10/09/2023 2:34:37 PM Impression: 1. No acute osseous injury within the lumbar spine. 2. Postsurgical change of the anterior and posterior fusion at L4-5. 3. Prior posterior decompression at L2, L3 and L4. 4. At L1-2, [id number] spinal canal and left neural foraminal narrowing. 5. At L5-S1, moderate to severe right and mild left neural foraminal stenosis. (12) Chronic pain: Status: Acute Problem details: She does have specific pain suggestive of sciatic on the right without obvious neurologic deficits. It appears fibromyalgia and rheumatoid arthritis pain are significant cause of pain as well. Started on Lyrica. Switch from paroxetine to duloxetine. Wean off low-dose oxycodone as pain allows. (13) Fibromyalgia: Status: Acute Problem details: She is having generalized pain and generalized tenderness to palpation. Previous diagnosis of fibromyalgia. Start on pregabalin. Switch from paroxetine to duloxetine. Wean off opioids (14) Adrenal insufficiency: Status: Acute Problem details: She has had the appearance of adrenal insufficiency with each hospital admission. Chronically on prednisone 7.5 mg. Seems to respond very well to short course of IV hydrocortisone. (15) COPD (chronic obstructive pulmonary disease): Status: Acute Problem details: Probably does not have COPD. PFT's show some obstruction but probably due to bronchiectasis according to her real estate administrative assistant (16) Acute confusion: Status: Acute Problem details: Patient is observed by nursing staff to have episodic events of confusion. These reliably occur when she is ill on admission. They tend to improve when she is treated for her illness as well as treated with stress dose steroids. She may also have a component of hospital-acquired delirium. She is still getting an occasional oxycodone 2.5 mg. She has been on chronic opioid therapy for years. Her [place] on 10/22/2023 was 23/30. (17) Depression: Status: Acute Problem details: Patient has longstanding depression and anxiety. With recent admission I switched her from paroxetine to duloxetine to see if her chronic pain/fibromya lgia would improve. (18) Chronic anxiety: Status: Chronic Problem details: Chronic anxiety and depression. September 2019 for admission I switched her from paroxetine to duloxetine to see if she would get better pain control with her fibromyalgia. (19) Chronic use of steroids: Status: Chronic Problem details: Prednisone increased to 15 mg daily pending rheumatology follow-up 12/13/2023. She needs stress dose steroids with acute illness DS: Summary Status at Discharge Cognitive/behavioral status at discharge: Tanner Stallings is a 78 year old female admitted to the hospital with somnolence weakness fever and hypoxia. She was discharged from the hospital after treatment for a UTI with sepsis from Klebsiella pneumonia yesterday. She was discharged to [address] [place] [address]. For the last few days in the hospital and yesterday in the custodial she reportedly felt fine without any new problems or concerns, just the weakness from her recent illness. She has not had a fever or a cough or shortness of breath or hypoxia in the last few days. Summary from the past few months: Patient has had multiple hospital admissions over the last 6 months: April 2023 she was hospitalized here for weakness. At that time there was concern of multifactorial weakness including some heart failure with severe aortic stenosis, COPD, UTI, type 2 non STEMI. She had a CT of her chest which showed bilateral extensive interstitial airspace opacities consistent with pulmonary edema or multifocal infiltrates. At the time this was thought to be more likely heart failure. At the time she was on methotrexate and there was concern about some pulmonary toxicity so the methotrexate was held. She was admitted for a week, discharge to home, readmitted 2 days later with ongoing weakness and fever. She was transferred to [facility] because of her fever and heart disease. At [facility] her fever resolved s pontaneously. She was deemed an appropriate candidate for TAVR. Discharge to intermediate facility for about 1 month. 06/16/2023 hospitalized at [facility] for TAVR. Procedure went well. She reports resolution of her cardio-respiratory symptoms after TAVR. She had been using and nebulizer regularly for her dyspnea. After her TAVR she has not required any inhaled treatments. 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 Readmitted on June 21 for management of this. The hematoma has resolved but she still reporting pain in the area of her right groin, right abdomen, right thigh. Repeat CT imaging on October 09 2023 showed resolution of the hematoma. 08/09/[address] her [address] administrative engineer. He noted synovitis and restarted her methotrexate 17.5 mg weekly. He thought she was on prednisone 10 mg daily though she probably is on 7.5 mg daily. 10/09/2023 she was seen in our emergency department with 2 weeks of right low back pain radiating into her leg and foot. CT at that time showed moderate to severe right foraminal stenosis at L5-S1. Previous fusion at L4-5 and posterior decompression at L2-4. CT abdomen and pelvis showed no residual hematoma. She was given a course of prednisone for treatment of possible sciatica. She tells me now that it might have helped a little bit but she is unsure of this. She has been taking hydrocodone acetaminophen as needed for pain, she has had approximately 53 tablets in 24 days. She was prescribed physical therapy which is of uncertain benefit. The course of therapy has been completed. During her recent hospital stay she had improvement in her low back pain and sciatica going down her right leg. She was more mobile. She was requiring less pain medication and was able to wean down on her chronic opioid therapy. Her mood and mental status were quite good. October 26: Patient reports feeling much better today. The constitutional symptoms that she had yesterday as well as on her admission on October 20 include profound weakness, somnolence, confusion have largely resolved overnight. She reports feeling much better today. She she is alert and inte racting with staff, ambulating with therapy, eating breakfast. She has no specific symptoms or concerns today. Including no shortness of breath or cough or chest pain. October 27: Nursing staff note occasional episodes of confusion. I have evaluated her on 4 occasions in the last 2 days for she seems to be at baseline mental status. No obvious delirium. Her mobility is back to baseline. Her mood and affect are bright other than some anxiety about her recurrent hospital admissions. She is eating well. I observe her to walk with a 4 wheeled walker quite well. Not having significant pain with ambulation. October 28: Continues to have episodes of confusion. Today she is port 5th feeling weaker. Needed more assistance going to the bathroom. No fever, dyspnea, hypoxia. Vitals are normal. Cultures are negative JACKIE STALLINGS HAS MULTIPLE AND COMPLEX MEDICAL PROBLEMS. SHE WOULD BENEFIT FROM CONSULTATION WITH PULMONOLOGY AND INFECTIOUS DISEASE IF REQUIRING HOSPITALIZATION. HER PAPER BALER WORKS WITH [employer] [facility]. Functional status at discharge: uses cane/walker (Needs assistance with transfers and standby assistance with ambulation) Overall status at discharge: patient is progressing back to baseline Time Spent with Patient Time attestation: Total time spent providing and/or coordinating discharge services: Time spent: Greater than 30 minutes Exam Narrative: Exam Narrative: She is alert and appears in no distress. She is oriented to her circumstances. Breathing is unlabored on room air. Respirations with a few crackles scattered throughout lung solano. No wheezing rales or rhonchi. Good air exchange all lung solano. Cardiovascular: S1, S2, regular rate and rhythm. Abdomen is soft without tenderness or mass. Extremities with mild stable edema, support hose in place. Const: Vital Signs, click to edit/add: Vital Signs - 24 hr 10/28/23 11:00 10/28/23 15:00 10/28/23 15:00 Temperature 98.0 F Pulse Rate Pulse Rate [Right Pulse Oximeter] 68 68 Respiratory Rate 18 18 18 Blood Pressure [Le ft Arm] 149/67 H Pulse Oximetry 99 99 Oxygen Delivery Me thod Room Air Room Air 10/28/23 15:00 10/28/23 15:00 10/28/23 19:00 Temperature 97.7 F 97.6 F Pulse Rate 92 Pulse Rate [Right Pulse Oximeter] 73 74 Respiratory Rate 18 16 Blood Pressure [Le ft Arm] 121/70 136/79 Pulse Oximetry 98 95 Oxygen Delivery Me thod Room Air Room Air 10/28/23 23:00 10/28/23 23:00 10/28/23 23:00 Temperature 97.6 F Pulse Rate Pulse Rate [Right Pulse Oximeter] 64 64 Respiratory Rate 16 16 16 Blood Pressure [Le ft Arm] 137/58 L Pulse Oximetry 96 96 Oxygen Delivery Tx thod Room Air Room Air 10/29/23 03:30 10/29/23 07:00 10/29/23 07:00 Temperature 97.7 F 97.8 F Pulse Rate Pulse Rate [Right Pulse Oximeter] 64 65 Respiratory Rate 18 16 16 Blood Pressure [Le ft Arm] 138/63 137/56 L Pulse Oximetry 98 93 93 Oxygen Delivery Me thod Room Air Room Air Room Air Documenting provider has reviewed patient's vital signs: yes DS: Data Data Completed and Pending Completed studies during hospitalization: Procedure Labs on day of discharge: Labs from last 24 hours 10/29/23 06:04 WBC 8.08 RBC 3.58 L Hgb 11.9 L Hct 36.7 MCV 103 H MCH 33 MCHC 32 RDW Coeff of Navneet 16.4 H Plt Count 110 L Neut % (Auto) 76.0 H Lymph % (Auto) 12.0 L [place] % (Auto) 7.8 Eos % (Auto) 2.5 Baso % (Auto) 0.2 Neut # (Auto) 6.10 Lymph # (Auto) 1.00 [place] # (Auto) 0.60 Eos # (Auto) 0.20 Baso # (Auto) 0.02 Abs Immat Gran (auto) 0.12 Imm/Tot Granulo (auto) 1.5 Sodium 139 Potassium 3.4 L Chloride 105 Carbon Dioxide 30 Anion Gap 4 L BUN 32 H Creatinine 1.1 Estimated Creat Clear 35.99 Estimated GFR 52 Glucose 71 Calcium 8.2 L Preliminary micro results at discharge 10/28/23 00:45 Sputum Culture - Preliminary Sputum - Expectorated Sputum 10/26/23 10:20 Blood Culture - Preliminary Blood NO GROWTH AFTER 48 HOURS 10/26/23 10:05 Blood Culture - Preliminary Blood NO GROWTH AFTER [address] scan - abdomen: Radiologist's impression: Study:?CT-Abdomen/Pelvis 95CC ISOVUE 370-10/26/2023 11:35:08 AM Ordering Physician:?DR. KEMP Final Report: Indication: Hypoxia, fever Technique: Volumetric multidetector CT images of the abdomen and pelvis were obtained after the administration of intravenous contrast. 95 cc Isovue 370 low osmolar intravenous contrast Comparison: CT abdomen and pelvis October 09, 2023 and June 21, 2023 Findings: There is demonstration trace right basilar pleural effusion with basilar atelectasis. The liver is normal in attenuation without intrahepatic biliary ductal dilatation. The portal vein is patent. There is prior cholecystectomy. There is no significant common biliary ductal dilatation or abrupt cut off. There is again seen a somewhat heterogeneous appearance of the spleen with splenic granulomas. Minimal perisplenic inflammatory changes are again seen similar to previous exam. The stomach and duodenum are grossly unremarkable. The pancreas is normal in enhancement without significant atrophy. The adrenal glands are unremarkable. There is prior left nephrectomy with stable appearance of the right kidney. Minimal cystic change of the superior pole of the right kidney with otherwise no evidence of obstructive uropathy or radiopaque calculus. There is fluid within the proximal colon with moderate stool in the distal colon. The central small bowel is decompressed. The appendix is unremarkable. There is no significant mesenteric, retroperitoneal, or pelvic sidewall lymph nodes. The aorta is nonaneurysmal. There is no significant atherosclerotic disease appreciated. There is a Oliveros catheter within the urinary bladder. Calcified fibroid uterus is again seen. The pelvic viscera are otherwise grossly within normal limits. There is no free fluid or free air. The anterior abdominal wall is intact without significant hernias. The lumbar vertebral body heights are stable from previous exam with pedicle screw and posterior stabilization fixation changes of the L4-L5 level. Anterior interbody fusion device is appreciated. Impression: Minimal nonspecific fluid appreciated within the proximal colon which may represent minimal colitis change. Moderate stool seen in the distal colon. Stable granulomas and hypodensities within the spleen with minimal chronic perisplenic inflammatory change within the adjacent fat. Prior left nephrectomy. Otherwise, no definite acute intra-abdominal abnormality is appreciated. CT scan - chest: Radiologist's impression: Study:?CT-Chest PE W 95cc ISOVUE 370-10/26/2023 11:37:32 AM Ordering Physician:?DR. KEMP Final Report: Indication: Hypoxia, fever Technique: Volumetric multidetector CT images of the chest were obtained after the administration of IV contrast. 95 cc Isovue 370 low osmolar intravenous contrast Comparison: CT chest April 29, 2023 Findings: The thoracic inlet and thyroid gland are unremarkable. The thoracic aorta is nonaneurysmal with scattered atherosclerotic calcification and aortic valve prosthesis. Extensive coronary artery calcification is again seen. There is no central filling defect to suggest pulmonary embolism. There is no evidence of mediastinal, hilar or axillary adenopathy. Prominent paraspinous lymph nodes are again appreciated similar to remote comparison, slightly decreased in conspicuity from previous. There is mild to moderate central bronchial thickening. There are developing interstitial and ground-glass opacities within the bilateral upper lobes likely representing developing infiltrates with trace right basilar pleural effusion with adjacent compressive atelectasis and/or parenchymal scar. There is no pneumothorax. There is no evidence of pulmonary mass or suspicious pulmonary nodule. The partially visualized upper abdominal viscera are within normal limits. The thoracic vertebral body heights are stable from comparison with mildly exaggerated thoracic kyphosis. There are diffuse flowing anterior osteophytosis in syndesmophytes as well as extensive ossification of the interspinous ligament which can be seen in the setting of ankylosing spondylitis. Impression: [id number] interstitial and ground-glass opacities of the bilateral upper lobes which may represent developing edema and/or multifocal infiltrates with trace right basilar pleural effusion with adjacent compressive atelectasis and/or infiltrates. No evidence of pulmonary embolus. Discharge Plan Discharge Disposition: [facility] Date of Admission: 10/26/23 17:42 Attending Provider on Discharge: Alejandro Vasquez Consulting Providers: Joseline Cohen; Varghese Azevedo; Roslyn Calvo; Christian Martin; Jeevan Osei; Ilana Reynolds; Patsy Garcia; Melinda Alexis Primary Care Provider: Kyle Healy Discharge Medications: New oxycodone 5 mg tablet 2.5 mg PO Q4H PRN (Reason: pain) Qty: 30 0RF pregabalin 50 mg capsule 50 mg PO BID Qty: 60 0RF potassium chloride 10 mEq capsule, extended release 10 meq PO DAILY Qty: 30 0RF Continued cholecalciferol (vitamin D3) 50 mcg (2,000 unit) capsule 50 mcg PO DAILY multivitamin Tablet 1 tab PO QAM ascorbic acid (vitamin C) 500 mg tablet 1 g PO DAILY metoprolol succinate 25 mg tablet extended release 24 hr 25 mg PO BID Qty: 180 3RF furosemide 40 mg tablet 40 mg PO DAILY Qty: 90 3RF Eliquis 5 mg tablet 2.5 mg PO BID Qty: 90 3RF folic acid 1 mg tablet 3 mg PO DAILY Lactobacillus acidophilus 0.5 mg (100 million cell) tablet 100 mmu cells PO DAILY ferrous gluconate 324 mg (38 mg iron) tablet 324 mg PO DAILY sennosides-docusate sodium [Stool Softener-Laxative] 8.6-50 mg Tablet 1 - 2 tab PO BID PRNQty: 100 0RF duloxetine 60 mg capsule,delayed release(DR/EC) 60 mg PO DAILY Qty: 30 0RF diclofenac sodium [Voltaren Arthritis Pain] 1 % gel 2 g topical QID PRNQty: 100 0RF Rx Instructions: apply to single elbow, wrist or hand; for hand includes palm/fingers/back of hand valganciclovir 450 mg tablet 450 mg PO DAILY rosuvastatin 5 mg tablet 5 mg PO HS Changed prednisone 5 mg tablet 15 mg PO DAILY Qty: 90 0RF Discontinued methotrexate sodium 2.5 mg tablet 17.5 mg PO Q7D oxycodone 5 mg Tablet 2.5 mg PO Q4H PRN (Reason: Pain) Qty: 30 0RF pregabalin [Lyrica] 50 mg Capsule 50 mg PO BID Qty: 60 0RF cephalexin 500 mg capsule 500 mg PO TID Qty: 20 0RF Discharge Orders: Discharge Order (Routine); Ordered 10/29/23 Ordered By: Alejandro Vasquez Activity Level: Activity as Tolerated, Up with assist and Use Walker Discharge Diet: Regular Follow Up Appointments: Kyle Healy MD [Primary Care Provider] - Forms: [facility] Info Instructions Admit to: SNF Discharge Potential: Fair Can use facility standing orders?: Yes Rehab Potential: Fair Therapy: Physical Therapy and Occupational Therapy Therapy Orders: Evaluate and Treat Oxygen: No Urinary Catheter: No Lab Orders: basic metabolic panel and CBC in 6-7 days
--- NOTE | 2023-10-29 12:16 | PC.NURSE ---
Discharge Note: The patient discharged from the Med/surg unit and was wheeled to the [facility] clinic for her appointment today. The patient will return to rehab at [facility] after the appointment... EMS to transfer due to weakness. USES 4 wheeled RW as able... or Ez stand needed for weakness in BLE. IV was removed and her forearm was wrapped in coban. All discharge information/orders were faxed to [facility] Jenifer ROBLERON
--- NOTE | 2023-10-29 14:53 | PC.NURSE ---
1300 after patient discharge- Kat called from [facility] for a nurse to nurse on the patient. Report was given and all questions were answered. Jenifer VIDES BSN
== END 2023-10-29 10:56 | DRG 871 ==
LOC: ED 10:28 → MEDSURG 14:14
PROVIDERS: Admitting Provider Family Medicine; Emergency Provider Emergency Medicine; PCP Family Medicine; Visit Provider Family Medicine
DX: A41.9 Sepsis, unspecified organism (principal); J18.9 Pneumonia, unspecified organism; J96.01 Acute respiratory failure with hypoxia; D84.821 Immunodeficiency due to drugs; H30.892 Other chorioretinal inflammations, left eye; B25.8 Other cytomegaloviral diseases; E27.40 Unspecified adrenocortical insufficiency; N39.0 Urinary tract infection, site not specified; Y95 Nosocomial condition; M06.9 Rheumatoid arthritis, unspecified; T45.1X5A Adverse effect of antineoplastic and immunosuppressive drugs, initial encounter; Z79.52 Long term (current) use of systemic steroids; M48.07 Spinal stenosis, lumbosacral region; Z79.631 Long term (current) use of antimetabolite agent; I35.0 Nonrheumatic aortic (valve) stenosis; R91.8 Other nonspecific abnormal finding of lung field; I48.0 Paroxysmal atrial fibrillation; G89.29 Other chronic pain; M54.31 Sciatica, right side; M79.7 Fibromyalgia; F32.A Depression, unspecified; F41.9 Anxiety disorder, unspecified; J47.9 Bronchiectasis, uncomplicated; R41.0 Disorientation, unspecified; B96.1 Klebsiella pneumoniae [K. pneumoniae] as the cause of diseases classified elsewhere; I50.9 Heart failure, unspecified
CPT/HCPCS: 36415; 71275; 74177; 80048; 80053; 81001; 82803; 83605; 83880; 84484; 85025; 85610; 87040; 87070; 87081; 87449; 87631; 87899; 93005; 97110; 97116; 97162; 97166; 97530; 97535; 99284; 99285; A9153; A9270; J1720; J2543; J3370; J7030; J7050; J7512; Q9967

== ENCOUNTER 2023-10-29 10:56 | Outpatient (CLI) | payer MEDICARE, OTHER, SELFPAY ==
--- OUTSIDE RECORDS SUMMARY | 2023-10-29 10:59 | XMS_ITS | Clinical Summary ---
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 Patient discontinued 05/2012. 12/20/2012 start venlafaxine 37.5mg Osteopenia 12/07/2011 05/05/2023 Overview: Algology Teacher wants patient to be on alendronate indefinitely [...] [facility]; ENDOSCOPY REVEALED SHALLOW GASTRIC [...] due to FH Td, 03/15/03 Hematuria 05/05/2023 Immunizations Name Administration Dates Next Due AMB [...] Comments Blood Pressure 159/76 07/27/2023 1:14 PM RATE EXAMINER Pulse 52 07/27/2023 1:14 PM RATE EXAMINER Temperature 36.4 ??C (97.6 ??F) 07/01/2023 8:06 AM CS T Respiratory Rate 16 07/09/2023 3:27 PM RATE EXAMINER Oxygen Saturation 97% 07/27/2023 1:14 PM RATE EXAMINER Inhaled Oxygen Concentration - - Weight 80.3 kg (177 lb) 07/27/2023 1:14 PM RATE EXAMINER Height 160 cm (5' 3) 07/27/2023 1:14 PM RATE EXAMINER Body Mass Index 31.35 07/27/2023 1:14 PM RATE EXAMINER Plan of Treatment Health Maintenance Due Date [...] 02/27/2015, 11/26/2011 Medical Devices Implanted Type Area Manager Flight Device Identifier Shelf Expiration Date Model / Serial / Lot Screw Tsrh Og Thin 6.5x50mm - [id number] Implanted:Qty: 3 on 04/28/2010 at [facility] N/A: Spine [employer]ANEK [id number]# / / Screw Locking 4x20mm Fine Tip Titnm - [id number] Implanted:Qty: 4 on 04/28/2010 at [facility] [employer] [id number] # / / Screw Thin Crest 6.5x45mm - [id number] Implanted:Qty: 1 on 04/28/2010 at [facility] [id number]# / / Set Screw 3dx - [id number] Implanted:Qty: 4 on 04/28/2010 at [facility] [id number]# / / Cnnctr Tsrh 3dx Sm - [id number] Implanted:Qty: 4 on 04/28/2010 at [facility] Medtronic [id number]# / / Rios 3.5cmx5.5mm Pre-Cut - [id number] Implanted:Qty: 2 on 04/28/2010 at [facility] [id number]# / / Kit Infuse Md - [id number] Implanted:Qty: 1 on 04/28/2010 at [facility] Spine [facility] 10/26/2012 [id number]# / / [id number] Filler Bio [id number] - [id number] Implanted:Qty: 1 on 04/28/2010 at [facility] [id number]# / / [id number] Synfix Lr 26mm Implanted:Qty: 1 on 04/28/2010 at [facility] Spine [employer] 08.802.017 S / / [id number] Description:SYNFIX LR 26MM Procedures Procedure Name Priority Date/Time Associated Diagnosis Comments XR DXA BONE DENSITY 2 SITES AXIAL Routine 02/02/2018 3:00 PM CDT Disorder of bone Osteopenia, unspecified location from Last 3 Months or Most Recently Relevant to Health Maintenance Results * XR DXA BONE DENSITY 2 SITES AXIAL (02/02/2018 3:00 PM CDT) Anatomical Region Laterality Modality Spine, HIPS, HIPL, HIPR Other 02/02/2018 3:41 PM CDT Narrative 02/02/2018 3:44 PM CDT EXAM: XR DXA BONE DENSITY 2 SITES AXIAL INDICATION: Disorder of bone. ??Osteopenia. ??Postmenopausal. TECHNIQUE: Standardized bone density measurements were obtained using the BABYBOOM.ru/Theralogix bone densitometry system. COMPARISON: None. FINDINGS: SPINE: [...] bone density measurements were obtained using the Spocklyr/Theralogix bone densitometry system. COMPARISON: None. FINDINGS: SPINE: [...] Documents on File Type Date Recorded Patient Equipment Operation Instructor Expl anation POLST 04/29/2021 POLST 02/02/2017 1:11 [...] Code Status Discussion: Reviewed Preferences Care Teams Physical Meteorologist Relationship Specialty Start Date End Date Kyle Healy MD [address] [place] [address] PCP - General Family Practice 07/14/23 Swapnil Henley MD Rheumatology 12/20/12 Marlys Woodruff, RD [address] [place] [address] Registered Dietitian Security Controls Assessor 07/05/18 Funmi Medina, ANGEL [address] [place], [place] [phone] Occupational Therapy 05/11/23 Mary Carpio Cardiology - Interventional 01/12/18 DR. Luo Dentistry - General 01/12/18
--- OUTSIDE RECORDS SUMMARY | 2023-10-29 10:59 | XMS_ITS | Data Portability ---
Author Name Unknown Address [address] [place] [address] Phone [phone] Organization [facility] Address [address] [place] [address] Assessment No assessment recorded. Plan of Treatment [...] with a nephrect gilmar. Lamont Bravo MD [address] [place] [address], [phone], [facility] 2 16:32:18 Recurrent urinary tract infection Active 022 Managed with daily Bactrim Lamont Bravo MD [address] [place] [address], [phone], [facility] 16:32:42 Problem Notes None recorded. Procedures Surgical History Date Name Laterality Status Provider Name and Address Organization Details Recorded Time 07/11/19 22 NEPHRECTOMY, HAND ASSISTED LAPAROSCOPIC (SURG) completed Mary moss [facility] 07/17/2021 09:46:04 Imaging Results None recorded. Procedure Notes None recorded. Medical Equipment None Reported. Allergies Allergen ID Allergen Name Allergen Category Reaction Reaction Severity Criticality Documentation Date Start Date Code Code System Note Provider Name and Address Organization Details Recorded Time 759895 Non-stero idal anti-infl ammatory agent (product) medicatio n Not available Not available Not available 03/20/2021 96172 005 SNOMED Lamont Bravo MD [address] [place] [address],[address] [place] [address], [phone], [facility] 1 16:22:56 713793 Levaquin medicatio n Not available Not available Not available 03/20/2021 39417 2 Bree Bravo MD [address] [place] [address],[address] [place] [address], [phone], [facility] 1 16:23:24 114070 levofloxa giorgio medicatio n other Not available Not available 08/11/20212021 19983 Bree Bravo MD [address] [place] [address],[address], [place], [phone], [facility] 2 16:06:24 401049 terbinafi ne hydrochlo ride medicatio n fever headache Not available Not available Not available 08/11/20212019 13795 8 Bree Bravo MD [address] [place] [address],[address] [place] [address], [phone], [facility] 2 16:06:24 Medications Name Sig [...] Updated DateTime 03/20/2021 160.02 cm 33.7 kg/m2 80440.55 g Lamont Bravo MD [address] [place] [address],[address], [phone] [place] [address] Urology 03/20/2021 16:22:47 Date Recorded Body height Body mass index (BMI) Body weight Provider Name and Address Organization Details Last Updated DateTime 08/11/2021 160.02 cm 28.3 kg/m2 69196.78 g Lamont Bravo MD [address] [place] [address],[place] [phone] [place] [address] Urology 08/11/2021 16:06:06 Social History Question Answer Notes LastModified by Organizat ion Details LastModified Time Tobacco Smoking Status Never Smoker Lamont Bravo MD [address] [place] [address],[address], [phone] [place] [address] Urology 03/20/2021 16:24:21 What Is Your Level [...] polysaccharide PPV23 04/30/2010 completed Lamont Bravo MD [address] [place] [address],[address] [place] [address], [phone], [facility] 08/11/2021 16:07:09 Pneumococcal conjugate PCV 13 01/31/2015 completed Lamont Bravo MD [address] [place] [address],[address], [phone], [facility] 08/11/2021 16:07:09 pneumococcal polysaccharide PPV23 03/28/2015 completed Lamont Bravo MD [address] [place] [address],[address], [phone], [facility] 08/11/2021 16:07:09 Pneumococcal conjugate PCV 13 03/28/2016 completed Lamont Bravo MD [address] [place] [address],[address], [phone], [facility] 08/11/2021 16:07:10 pneumococcal polysaccharide PPV23 03/09/2016 completed Lamont Bravo MD [address] [place] [address],[address], [phone], [facility] 08/11/2021 16:07:10 Past Encounters Encounter ID Performer Location Encounter Start Date Encounter Closed Date Diagnosis/Indication Diagnosis SNOMED-CT Code [id number] MD TAMIKA Hudson_Edinjuju [address] [place] [address] 03/20/2021 16:12:05 03/24/2021 11:06:39 Kidney stone [id number] MD Sondra Hudson 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 Health Concerns Section Related Observation LastModified by Organization Detai ls LastModified Time None Recorded Concern Status LastModified by Organization Details LastModified Time None Recorded Advance Directives Directive None Recorded Payers Encounter Date Sequence Insurance Name Policy Number Policy Oshea Covered Member ID Oshea Member ID Guarantor Name 08/11/2021 1 [place] [email or web address] Tanner James [id number] Tanner James 08/11/2021 2 [facility] (MEDICARE SUPPLEMENT) Tanner James [id number] Tanner James 03/20/2021 1 [place] [employer] Tanner James [id number] Tanner James 03/20/2021 2 [facility] (MEDICARE SUPPLEMENT) Tanner James [id number] Tanner James Notes Date Note Type Note Provider Name and Address Organization Details Recorded Time 03/20/2021 text/html HPI Notes: New patient here to discuss nephrectomy. 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 She's had recurrent pyelonephritis as well. She had ESWL in 2002. She also has a poor aortic valve. Lamont Bravo MD [address] [place] [address],[address] [place] [address], [phone], [facility] 03/20/2021 17:02:40 08/11/2021 text/html HPI Notes: She h as recovered well from surgery. 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 Lamont Bravo MD [address] [place] [address],[address], [place], [address], [facility] 08/11/2021 16:37:50 OBGyn Episode No OBEpisode recorded.
--- OUTSIDE RECORDS SUMMARY | 2023-10-29 10:59 | XMS_ITS | Clinical Summary ---
Author Name Unknown Organization [facility] Address [address] [place] [address] Care Team Providers Care Lip Reading Teacher Name Role Phone Elsewhere, Pcp Primary Care Provider Unavailabl e Source Comments Patient records contain information from all sites at [facility]. For routine questions regarding patient records, call [phone] during business hours, M-F 8:00 AM - 5:00 PM Central Time. Record requests for emergency care only can be directed to [phone] at any time.[facility] Allergies Active Allergy Reactions Criticality Noted Date [...] How often do you attend chur or yarsani services? Never 08/12/2022 Do you belong to any clubs o r organizations such as mu-ism groups, unions, fraternal or athletic groups, or [...] heating? Not hard at all 08/12/2022 [facility] - Occupational Stress Questionnaire Answer Date Recorded [...] 36.1 ??C (97 ??F) 08/17/2022 10:57 AM PROGRAM SUPPORT CLERK Respiratory Rate 18 01/09/2022 8:24 AM CDT [...] METABOLIC PANEL, S/P Routine 07/27/2023 11:41 AM PROGRAM SUPPORT CLERK BI BREAST SCREENING BILATERAL WITH TOMOSYNTHESIS Routine 02/08/2019 1:03 PM CDT from Last 3 Months or Most Recently Relevant to Health Maintenance Advance Directives For more information, please contact: [phone] * DNR/DNI (Latest Code Status on File) Date Activated Date Inactivated Comments 12/28/2021 12:42 PM 01/09/2022 1:10 PM * DNR/DNI Date Activated Date Inactivated Comments 12/23/2020 8:47 PM 12/25/2020 5:38 PM * Full Code Date Activated Date Inactivated Comments 12/23/2020 8:20 PM 12/23/2020 8:47 PM Question Answer Comments Full Code: Discussed Care Teams Lip Reading Teacher Relationship Specialty Start Date End Date Elsewhere, Pcp PCP - General 12/24/20
--- OUTSIDE RECORDS SUMMARY | 2023-10-29 11:00 | XMS_ITS | Referral Summary ---
Author Name Unknown Organization [facility] Address [address] [place] [address] Care Team Providers Care Buyer Grain Name Role Phone Elsewhere, Pcp Primary Care Provider Unavailabl e Source Comments Patient records contain information from all sites at [facility]. For routine questions regarding patient records, call [phone] during business hours, M-F 8:00 AM - 5:00 PM Central Time. Record requests for emergency care only can be directed to [phone] at any time.[facility] Allergies Active Allergy Reactions Criticality Noted Date [...] How often do you attend chur or advent services? Never 08/12/2022 Do you belong to any clubs o r organizations such as mandaen groups, unions, fraternal or athletic groups, or [...] and heating? Not hard at all 08/12/2022 [facility] - Occupational Stress Questionnaire Answer Date Recorded [...] place to sleep or slept in a [place] health care facility (including now)? No 08/12/2022 Nutrition Answer Date [...] 36.1 ??C (97 ??F) 08/17/2022 10:57 AM EQUAL EMPLOYMENT OPPORTUNITY OFFICER Respiratory Rate 18 01/09/2022 8:24 AM CDT [...] METABOLIC PANEL, S/P Routine 07/27/2023 11:41 AM EQUAL EMPLOYMENT OPPORTUNITY OFFICER BI BREAST SCREENING BILATERAL WITH TOMOSYNTHESIS Routine 02/08/2019 1:03 PM CDT from Last 3 Months or Most Recently Relevant to Health Maintenance Advance Directives For more information, please contact: [phone] * DNR/DNI (Latest Code Status on File) Date Activated Date Inactivated Comments 12/28/2021 12:42 PM 01/09/2022 1:10 PM * DNR/DNI Date Activated Date Inactivated Comments 12/23/2020 8:47 PM 12/25/2020 5:38 PM * Full Code Date Activated Date Inactivated Comments 12/23/2020 8:20 PM 12/23/2020 8:47 PM Question Answer Comments Full Code: Discussed Care Teams Buyer Grain Relationship Specialty Start Date End Date Elsewhere, Pcp PCP - General 12/24/20
--- OUTSIDE RECORDS SUMMARY | 2023-10-29 11:00 | XMS_ITS | Encounter Summary ---
Author Name Unknown Organization [facility] Address [address] [place] [address] Care Team Providers Care Diesel Electrician Name Role Phone Basilio Healy MD Primary Care Provider [phone] Encounter Details Date Type Department Care Team (Late st Contact Info) Description 08/20/2023 Telephone [facility] Pulmonary Medicine [address] [place], [place] [phone] Shara Mitchell MD [address] [facility] [address] [place], [place] [phone] Social History Tobacco Use Types Packs/Day Years [...] make a CT appointment before her follow-up TY INSTRUCTOR * Yessenia Olivarez - 08/20/2023 4:00 PM [...] this imaging with us before her appt? TY INSTRUCTOR documented in this encounter Plan of Treatment Upcoming Encounters Date Type Department Care Team (Late st Contact Info) Description 12/13/2023 1:00 PM CDT Appointment [facility] [address] [place], [place] [address] Man Sánchez MD [address] [place] [address] 12/14/2023 1:00 PM CDT Appointment [facility] Pulmonary Lab [address] [place] [address] 12/14/2023 2:00 PM CDT Office Visit Specialty Center 39[facility] Pulmonary Medicine [address] [place] [address] Shara Mitchell MD [address] [facility] [address] [place] [address] documented as of this encounter Visit Diagnoses Not on filedocumented in this encounter Care Teams Diesel Electrician Relationship Specialty Start Date End Date Basilio Healy MD [facility] [address] [place] [address] PCP - General Family Practice 10/28/22 documented as of this encounter
--- OUTSIDE RECORDS SUMMARY | 2023-10-29 11:00 | XMS_ITS | Encounter Summary ---
Author Name Unknown Organization [facility] Address [address] [place] [address] Care Team Providers Care Sr Risk Management Consultant Name Role Phone Elsewhere, Pcp Primary Care Provider Unavailabl e Reason for Visit * Reason Onset Date Comments Cardiac Rehab 07/06/2023 Encounter Details Date Type Department Care Team (Late st Contact Info) Description 07/06/2023 Clinical Communication Department of Family Medicine in [place], [place] [address] [place] [phone] Louie Malagon M.D. [address] [place] [address] Cardiac Rehab Social History Tobacco [...] often do you attend chur ch or sikhism services? Never 08/12/2022 Do you [...] hard at all 08/12/2022 [facility] - Occupational [...] place to sleep or slept in a alf (including now)? No 08/12/2022 Nutrition Answer Date [...] Samanta Leigh R.N. - 08/03/2023 1:32 PM WINK CUTTER OPERATOR I contacted Es to discuss. She [...] by: Samanta Leigh R.N. 08/03/23 1:35 PM WINK CUTTER OPERATOR CUTTER OPERATOR * Telephone Encounter - Samanta Leigh R.N. - 07/06/2023 2:14 PM WINK CUTTER OPERATOR Cardiac rehab referral received on 07/06/23. 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 Compression treatment was unsuccessful. Pt underwent vascular surgical repair on 06/23/23. I contacted patient to determine if she is currently at a [facility] facility or at home. Advised to contact our office at her convenience. Electronically signed by: Samanta Leigh R.N. 07/06/23 2:21 PM WINK CUTTER OPERATOR CUTTER OPERATOR documented in this encounter Plan of Treatment Not on file documented as of this encounter Visit Diagnoses Not on filedocumented in this encounter Care Teams Sr Risk Management Consultant Relationship Specialty Start Date End Date Elsewhere, Pcp PCP - General 12/24/20 documented as of this encounter
--- OUTSIDE RECORDS SUMMARY | 2023-10-29 11:00 | XMS_ITS | Encounter Summary ---
Author Name Unknown Organization [facility] Address [address] [place] [address] Care Team Providers Care Rac Specialist Name Role Phone Basilio Healy MD Primary Care Provider [phone] Reason for Visit * Reason Comments Hospital / Follow Up Encounter Details Date Type Department Care Team (Late st Contact Info) Description 10/27/2023 Telephone Specialty Center 3931 Pulmonary Medicine [address] [place], [place] [phone] Shara Mitchell MD [address] [facility] [address] [place], [place] [phone] Hospital / Follow Up Social History Tobacco Use Types Packs/Day Years [...] encounter Nursing Notes * Andreia Lovell - 10/29/2023 9:43 AM CDT Called patient and scheduled spdl and follow up with Dr Mitchell on 12/13. * Rochelle Lynch RN - 10/27/2023 1:09 PM CDT Radiology sent an email to retrieve all chest films from [facility] in 2023. [facility]line, Please contact pt to reschedule. Thank you * Shara Mitchell MD - 10/27/2023 11:28 AM CDT I called and spoke with Dr. Vasquez, who is currently caring for Tanner at [facility]. She was recently admitted for a UTI and improved. She was at a correction but developed a fever and hypoxia and returned to the hospital. CT imaging showed infiltrates, chronicity unclear. Pulmonary RNs: She was scheduled to see me tomorrow, October 27, but this appointment will need to be rescheduled. Please see if we can obtain the CT imaging from [facility], and then she will not need a repeat CT prior to her visit. Thanks. * Ame Asencio, RN - 10/27/2023 9:27 AM CDT Incoming call from Dr. Vasquez from [facility]. He states patient is currently admitted and he would like to speak with Dr. Mitchell. He is requesting a call back on his cell phone, . documented in this encounter Plan of Treatment Upcoming Encounters Date Type Department Care Team (Late st Contact Info) Description 12/13/2023 1:00 PM CDT Appointment [facility] [address] [place], [place] [address] Man Sánchez MD [facility] [place], [place] [phone] 12/14/2023 1:00 PM CDT Appointment Specialty [facility] 39[address] Pulmonary Lab [address] [place], [place] [address] 12/14/2023 2:00 PM CDT Office Visit Specialty Center 3931 Pulmonary Medicine [address] [facility] [place] [address] Shara Mitchell MD [facility] [facility] [address] [place] [address] documented as of this encounter Visit Diagnoses Not on filedocumented in this encounter Care Teams Rac Specialist Relationship Specialty Start Date End Date Basilio Healy MD [facility] [address] [place] [address] PCP - General Family Practice 10/28/22 documented as of this encounter
--- OUTSIDE RECORDS SUMMARY | 2023-10-29 11:00 | XMS_ITS | Encounter Summary ---
Author Name Unknown Organization [facility] Address [address] [place] [address] Care Team Providers Care Butadiene Compressor Operator Name Role Phone Basilio Healy MD Primary Care Provider [phone] Encounter Details Date Type Department Care Team (Late st Contact Info) Description 10/27/2023 Notes/Orders [place] [address] [place] [address]. [place], [place] [phone] aMn Sánchez MD [facility] [place], [place] [phone] Social History Tobacco Use Types Packs/Day Years [...] Progress Notes * Man Sánchez MD - 10/27/2023 11:56 AM CDT Received a phone call from Dr.Thomas Vasquez who is a hospitalist. Patient was recently admitted with increased shortness of breath. Imaging studies showed increased lung capacities. The differential diagnosis is broad including an infection versus fluid overload versus methotrexate lung toxicity versus interstitial lung disease related to rheumatoid arthritis. Patient was recently restarted on methotrexate therapy after she was off therapy for almost 3 months. Currently on prednisone 7.5 mg daily. Recommend pulmonology evaluation and possible bronchoscopy. The plan is for a pulmonology evaluation as outpatient. In the meantime recommend increasing prednisone to 10-15 mg daily. It is okay to hold the methotrexate in the meantime. Patient has a follow-up appointment with me in a month. documented in this encounter Plan of Treatment Upcoming Encounters Date Type Department Care Team (Late st Contact Info) Description 12/13/2023 1:00 PM CDT Appointment [place] [facility] [address] [place] [address] Man Sánchez MD [address] [place], [place] [address] 12/14/2023 1:00 PM CDT Appointment Specialty [facility] 3931 Pulmonary Lab [address] [place] [address] 12/14/2023 2:00 PM CDT Office Visit Specialty Center 3931 Pulmonary Medicine [address] [place] [address] Shara Mitchell MD [address] [facility] [address] [place] [address] documented as of this encounter Visit Diagnoses Not on filedocumented in this encounter Care Teams Butadiene Compressor Operator Relationship Specialty Start Date End Date Basilio Healy MD [facility] [address] [place] [address] PCP - General Family Practice 10/28/22 documented as of this encounter
--- OUTSIDE RECORDS SUMMARY | 2023-10-29 11:00 | XMS_ITS | Encounter Summary ---
Author Name Unknown Organization [facility] Address [address] [place] [address] Care Team Providers Care Boss Dyer Name Role Phone Basilio Healy MD Primary Care Provider [phone] Encounter Details Date Type Department Care Team (Latest Contact Info) Description 09/02/2023 Orders Only HIM DEPARTMENT ProviderWendy [place] [address] Social History Tobacco Use Types Packs/Day Years [...] Care Team ( st Contact Info) Description 12/13/2023 1:00 PM CDT Appointment [facility] [address] [place] [address] Man Sánchez MD [facility] [place] [address] 12/14/2023 1:00 PM CDT Appointment [facility] Pulmonary Lab Formerly [facility] [place] [address] 12/14/2023 2:00 PM CDT Office Visit [facility] Pulmonary Medicine [address] [place] [address] Shara Mitchell MD [address] [facility] [address] [place] [address] documented as of this encounter Procedures Procedure Name Priority Date/Time Associated Diagnosis Comments LABORATORY REPORT 09/02/2023 documented in this encounter Results * LABORATORY REPORT (09/02/2023) Interface Provider DUMMY/OTHER/AR documented in this encounter Visit Diagnoses Not on filedocumented in this encounter Care Teams Boss Dyer Relationship Specialty Start Date End Date Basilio Healy MD [facility] [address] [place] [address] PCP - General Family Practice 10/28/22 documented as of this encounter
--- OUTSIDE RECORDS SUMMARY | 2023-10-29 11:00 | XMS_ITS | Encounter Summary ---
Author Name Unknown Organization [facility] Address [address], [place] [address] Care Team Providers Care Building Services Technician Name Role Phone Basilio Healy MD Primary Care Provider [phone] Reason for Visit * Reason Comments Refill Encounter Details Date Type Department Care Team (Late st Contact Info) Description 02/06/2016 Refill [place] [address] [place] [address]. [place], [place] [address] [place] [address] [place] [address] Refill Social History Tobacco Use Types Packs/Day Years Used Date Smoking Tobacco: Never Assessed Sex and Gender Information Value Date Recorded Sex Assigned at Not on file Gender Identity Not on file Sexual Orientation Not on file documented as of this encounter Plan of Treatment Upcoming Encounters Date Type Department Care Team (Late Contact Info) Description 12/13/2023 1:00 PM CDT Appointment [facility] [address] [place] [address] Man Sánchez MD [address] [place], [place] [address] 12/14/2023 1:00 PM CDT Appointment [facility] Pulmonary Lab [address] [place] [address] 12/14/2023 2:00 PM CDT Office Visit [facility]31 Pulmonary Medicine [address] [place] [address] Shara Mitchell MD [address] [facility] [address] [place] [address] documented as of this encounter Visit Diagnoses Not on filedocumented in this encounter Care Teams Building Services Technician Relationship Specialty Start Date End Date Basilio Healy MD [facility] [address] [place] [address] PCP - General Family Practice 10/28/22 documented as of this encounter
--- OUTSIDE RECORDS SUMMARY | 2023-10-29 11:00 | XMS_ITS | Encounter Summary ---
Author Name Unknown Organization [facility] Address [address] [address] Care Team Providers Care Strategic Alliances Manager Name Role Phone Basilio Healy MD Primary Care Provider [phone] Reason for Referral * (Routine) - New Request Specialty Diagnoses / Procedures Referred By Contac t Referred To Contact Diagnoses Rheumatoid arthritis involving multiple joints (HRC) Primary osteoarthritis of both knees Procedures Triamcinolone Acet Inj Nos: (per 10 mg) Man Sánchez MD [address] [place] [address] Referral ID Status Reason Start Date Expiration Date V isits Requested Visits Authorized [id number] New Request 08/09/2023 11/07/2024 1 1 SELECTOR Reason for Visit * Reason Comments Follow-up Encounter Details Date Type Department Care Team (Late st Contact Info) Description 08/09/2023 12:00 PM HIDE SELECTOR Office Visit [facility] [address] [place] [address] Man Sánchez MD [address] [place] [address] Rheumatoid arthritis involving multiple joints [...] Man Sánchez MD - 08/09/2023 12:00 PM HIDE SELECTOR Longstanding history of seronegative rheumatoid arthritis and [...] 4 months follow-up or sooner if needed. SELECTOR documented in this encounter Progress Notes * [...] History: Procedure Laterality Date COLONOSCOPY W/ POLYPECTOMY ([facility]) 10/26/2018 2 specimens (5 polyp). 3 year follow up ESOPHAGOGASTRODUODENOSCOPY ([facility]) 04/14/09 eswl LUMBAR FUSION ([facility]) 04/2010 lami and fusion; Dr Corea Outpatient [...] HUT Reaction: GI Bleeding; HUT Severity: High; [facility] Noted: [id number] Levaquin [Levofloxacin] Other, see comments Muscles snapped [...] sooner if needed. Man Ramírez MD Rheumatology [facility] 08/09/2023 This note consists of symbols derived from keyboarding, and voice recognition software. As a result, wrong word or '[id number]-[id number]' substitutions may have occurred due to the inherent limitations of voice recognition software. There may be errors in the script that have gone undetected. Please consider this when interpreting information found in this chart. SELECTOR documented in this encounter Plan of Treatment Upcoming Encounters Date Type Department Care Team (Late st Contact Info) Description 12/13/2023 1:00 PM CDT Appointment [facility] [address] [place], [place] [address] Man Sánchez MD [address] [place] [address] 12/14/2023 1:00 PM CDT Appointment [facility] 3931 Pulmonary Lab [address] [place], [place] [address] 12/14/2023 2:00 PM CDT Office Visit [facility] Pulmonary Medicine [address] [place] [address] Shara Mitchell MD [address] [facility] [address] [place] [address] documented as of this encounter Visit Diagnoses Diagnosis Rheumatoid arthritis involving multiple joints (HRC)- Primary High risk medication use Encounter for long-term (current) use of other medications Primary osteoarthritis of both knees Primary localized osteoarthrosis, lower leg Current chronic use of systemic steroids Age related osteoporosis, unspecified pathological fracture presence (HRC) documented in this encounter Care Teams Strategic Alliances Manager Relationship Specialty Start Date End Date Basilio Healy MD [facility] [address] [place] [address] PCP - General Family Practice 10/28/22 documented as of this encounter
--- OUTSIDE RECORDS SUMMARY | 2023-10-29 11:00 | XMS_ITS ---
Author Name Unknown Organization [facility] Address [address] [place] [address] Care Team Providers Care Child Welfare Specialist Name Role Phone Unavailable Unavailable Unavailable Surgery Details Not on file Complications Check Surgery Details section. Procedure Estimated Blood Loss Check Surgery Details section. Procedure Findings Check Surgery Details section. Procedure Specimens Taken Check Surgery Details section.
--- OUTSIDE RECORDS SUMMARY | 2023-10-29 11:00 | XMS_ITS | Clinical Summary ---
Author Name Unknown Organization [facility] Address [address] [place] [address] Care Team Providers Care Podiatry Doctor Name Role Phone Basilio Healy MD Primary Care Provider [phone] Source Comments You are receiving this document as you are listed as the primary care provider,follow-up provider, or the patient has been referred to you for consultation.This is in compliance with the Medicare and[place] Healthcare[employer] EHR Incentive Program,which states Providers who transition their patient to another setting of careor provider of care or refers their patient to another provider of care shouldprovide summary care record for each transition of care or referral. [employer] Allergies Active Allergy Reactions Criticality Noted Date [...] Patient receives drug assistance for Enbrel from [employer]. Approved until 06/27/22-jm Problem Noted Date Diagnosed [...] annual mammogram; annual physical exam breast and tufter hand Chronic anxiety 12/21/2011 Overview: Start sertraline 11/26/11; improved although residual; increase dose from 50mg to 100mg 12/21/2011. Patient discontinued 05/2012. 12/20/2012 start venlafaxine 37.5mg Osteopenia 12/07/2011 Overview: [facility] [employer] wants patient to be on alendronate indefinitely [...] Overview: HGB 9.6 ON ADMIT TO [facility] 03/2009; ENDOSCOPY REVEALED SHALLOW GASTRIC [...] Encounters Date Type Department Care Team Description 10/27/2023 Notes/Orders [facility] [address] [place] [address] Man Sánchez MD 10/27/2023 Telephone [facility]ty [facility] Pulmonary Medicine [address] [place] [address] Shara Mitchell MD Hospital / Follow Up 09/02/2023 Orders Only HIM DEPARTMENT Provider, MD Wendy 08/20/2023 Telephone Specialty [facility] Pulmonary Medicine [address] [place] [address] Shara Mitchell MD 08/09/2023 12:00 PM SHIP SCALER Office Visit [facility] [address] [place] [address] Man Sánchez MD Rheumatoid arthritis involving multiple [...] Influenza (Fluad) 04/19/2018 Influenza IIV3 (Trivalent) F luzorebecca Highdose, 65+ Yrs (26266) 04/25/2019,03/09/2016,03/30/2014 Influenza IIV4 (Quadrivalent ) 0.5mL (37244) 04/23/2021,04/25/2019,04/19/2018, 016,03/30/2014,04/03/2013,04/15/2012,08/2009,04/15/2009,04/10/2003 Influenza IIV4 (Quadrivalent ) Fluzone, [...] Comments Blood Pressure 135/72 07/18/2019 3:38 PM SHIP SCALER Pulse 104 10/22/2022 1:45 PM CDT Temperature [...] Info) Description 12/13/2023 1:00 PM CDT Appointment [facility] [address] [place], [place] [address] Man Sánchez MD [facility] [place], [place] [address] 12/14/2023 1:00 PM CDT Appointment [facility] [address] Pulmonary Lab [address] [place] [address] 12/14/2023 2:00 PM CDT Office Visit [facility] 3931 Pulmonary Medicine [address] [place], [place] [address] Shara Mitchell MD [address] [facility] [address] [place] [address] [phone] Health Maintenance Due Date Last Done Comments [...] RSLT - CREATININE Routine 08/24/2023 2:15 PM SHIP SCALER EXT RSLT - AST Routine 08/24/2023 2:15 PM SHIP SCALER EXT RSLT - ALT Routine 08/24/2023 2:15 PM SHIP SCALER EXT RSLT - WHITE BLOOD CELL COUNT (WBC) Routine 08/24/2023 2:15 PM SHIP SCALER EXT RSLT - HEMOGLOBIN Routine 08/24/2023 2:15 PM SHIP SCALER EXT RSLT - PLATELET COUNT Routine 08/24/2023 2:15 PM SHIP SCALER DXA BONE DENSITY SPINE/HIP INC VERT FX [...] * Creatinine (Ext Rslt) (08/24/2023 2:15 PM SHIP SCALER) Pathologist [facility] EXT RSLT - CREATININE 1.0 0.5 - 1.0 mg/dL PN EXTERNAL LAB-SEE SCANNED DOCUMENT 08/24/2023 2:15 PM SHIP SCALER Man Sánchez MD LAB EXTERNAL RESULT Performing Organization Address [facility] de Phone Number PN EXTERNAL LAB-SEE SCANNED DOCUMENT Do Not Mail * White Blood Cell Count (WBC) (Ext Rslt) (08/24/2023 2:15 PM SHIP SCALER) Pathologist [facility] EXT RSLT - WBC 9.16 4.50 - 11.0 K/uL PN EXTERNAL LAB-SEE SCANNED DOCUMENT 08/24/2023 2:15 PM SHIP SCALER Man Sánchez MD LAB EXTERNAL RESULT Performing Organization Address [facility] Co de Phone Number PN EXTERNAL LAB-SEE SCANNED DOCUMENT Do Not Mail * Hemoglobin (Ext Rslt) (08/24/2023 2:15 PM SHIP SCALER) Pathologist [facility] EXT RSLT - HGB 12.8 12.0 - 16.0 gm/dL PN EXTERNAL LAB-SEE SCANNED DOCUMENT 08/24/2023 2:15 PM SHIP SCALER Man Sánchez MD LAB EXTERNAL RESULT Performing Organization Address [facility] Co de Phone Number PN EXTERNAL LAB-SEE SCANNED DOCUMENT Do Not Mail * (ABNORMAL) Platelet Count (Ext Rslt) (08/24/2023 2:15 PM SHIP SCALER) [facility] EXT RSLT - PLATELET COUNT 96(L) 140 - 440 K/uL PN EXTERNAL LAB-SEE SCANNED DOCUMENT 08/24/2023 2:15 PM SHIP SCALER Man Sánchez MD LAB EXTERNAL RESULT Performing Organization Address [facility] de Phone Number PN EXTERNAL LAB-SEE SCANNED DOCUMENT Do Not Mail * (ABNORMAL) AST (Ext Rslt) (08/24/2023 2:15 PM SHIP SCALER) [facility] EST RSLT - AST 39(H) 12 - 35 U/L PN EXTERNAL LAB-SEE SCANNED DOCUMENT 08/24/2023 2:15 PM SHIP SCALER Man Sánchez MD LAB EXTERNAL RESULT Performing Organization Address [facility] de Phone Number PN EXTERNAL LAB-SEE SCANNED DOCUMENT Do Not Mail * ALT (Ext Rslt) (08/24/2023 2:15 PM SHIP SCALER) [facility] EXT RSLT - ALT 31 4 - 35 U/L PN E XTERNAL LAB-SEE SCANNED DOCUMENT 08/24/2023 2:15 PM SHIP SCALER Man Sánchez MD LAB EXTERNAL RESULT Performing Organization Address [facility] de Phone Number PN EXTERNAL LAB-SEE SCANNED DOCUMENT Do Not Mail * DXA Bone Density Spine/[employer]ip [employer] Vert FX Assess (10/07/2022 3:48 PM CDT) [facility] DXA Hip Left Bone Mineral Density 0.825 [...] not included. Patient Name: Tanner James Densitometer: [employer] W Appt Dept/Resource: Granda Bone Density GRANDA [...] trabecular bone, and is derived from the [id number]-[id number] changes of bone density embedded in the [...] Performed by Real Time PCR CLIA Number [id number] HCV Quant iu/ml <12 IU/ml HP CONVERSION Comment:CLIA Number [id number] HCV Quant Log iu/ml <1.08 Log IU/ml HP CONVERSION Comment: Performed at [facility], [address] [place] [id number] CLIA Number [id number] 12/12/2015 11:4 4 AM CDT 12/12/2015 3:01 PM CDT Swapnil Henley MD LAB_1 HP CONVERSION from Last 3 Months or Most Recently Relevant to Health Maintenance Advance Directives Documents on File Type Date Recorded Patient Care Advocate Expl anation POLST 02/02/2017 01/05/2017 Care Teams Podiatry Doctor Relationship Specialty Start Date End Date Basilio Healy MD [facility] [address] [place] [address] PCP - General Family Practice 10/28/22
== END 2023-10-29 10:57 | disposition home or self-care (01) ==
LOC: WOUND 10:56
PROVIDERS: PCP Family Medicine; Visit Provider Nurse Practitioner Family
DX: L89.894 Pressure ulcer of other site, stage 4 (principal); E46 Unspecified protein-calorie malnutrition; I35.0 Nonrheumatic aortic (valve) stenosis; Z68.30 Body mass index [BMI] 30.0-30.9, adult
CPT/HCPCS: 11042

== ENCOUNTER 2023-10-29 12:22 | Outpatient (CLI) | payer MEDICARE, OTHER, SELFPAY | END 2023-10-29 12:23 | disposition home or self-care (01) | LOC: AMB 11-02 15:27 | PROVIDERS: PCP Family Medicine; Visit Provider Family Medicine | DX: A41.9 Sepsis, unspecified organism (principal); J96.91 Respiratory failure, unspecified with hypoxia | CPT/HCPCS: A0425; A0428 ==

== ENCOUNTER 2023-11-05 13:19 | Outpatient (CLI) | payer MEDICARE, OTHER, SELFPAY | END 2023-11-05 13:20 | disposition home or self-care (01) | LOC: WOUND 13:19 | PROVIDERS: PCP Family Medicine; Visit Provider Nurse Practitioner Family | DX: L89.894 Pressure ulcer of other site, stage 4 (principal); M62.81 Muscle weakness (generalized) | CPT/HCPCS: 11042 ==

== ENCOUNTER 2023-11-19 13:27 | Outpatient (CLI) | payer MEDICARE, OTHER, SELFPAY ==
--- OUTSIDE RECORDS SUMMARY | 2023-11-19 13:30 | XMS_ITS | Clinical Summary ---
Author Organization [facility] Address [place], [place] [address] Care Team Providers Care Loan Teller Name Role Phone Swapnil Henley MD Unavailable Marlys Woodruff RD Unavailable [phone] Funmi Medina Unavailable [phone] Kyle Healy MD Primary Care Provider [phone] Allergies Active Allergy Reactions Criticality Noted Date [...] daily. 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 Patient discontinued 05/2012. 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 [...] 04/21/2010 Overview: HGB 9.6 ON ADMIT TO [facility] 03/2009; ENDOSCOPY REVEALED SHALLOW GASTRIC ULCERATIONS WITH [...] Encounters Date Type Department Care Team Description 11/12/2023 Lab Requisition [facility] [phone] Luci Meza NP 10/29/2023 Lab Requisition [facility] [phone] Juaquin Jones MD from Last 3 Months Immunizations Name [...] Comments Blood Pressure 159/76 07/27/2023 1:14 PM EDUCATION NURSE Pulse 52 07/27/2023 1:14 PM EDUCATION NURSE Temperature 36.4 ??C (97.6 ??F) 07/01/2023 8:06 AM CS T Respiratory Rate 16 07/09/2023 3:27 PM EDUCATION NURSE Oxygen Saturation 97% 07/27/2023 1:14 PM EDUCATION NURSE Inhaled Oxygen Concentration - - Weight 80.3 kg (177 lb) 07/27/2023 1:14 PM EDUCATION NURSE Height 160 cm (5' 3) 07/27/2023 1:14 PM EDUCATION NURSE Body Mass Index 31.35 07/27/2023 1:14 PM EDUCATION NURSE Plan of Treatment Health Maintenance Due Date [...] 02/27/2015, 11/26/2011 Medical Devices Implanted Type Area Panelboard Operator Device Identifier Shelf Expiration Date Model / Serial / Lot Screw Tsrh Og Thin 6.5x50mm - [id number] Implanted:Qty: 3 on 04/28/2010 at [facility] N/A: Spine [id number]# / / Screw Locking 4x20mm Fine Tip Titnm - [id number] Implanted:Qty: 4 on 04/28/2010 at [facility] [employer] [id number] # / / Screw Thin Crest 6.5x45mm - [id number] Implanted:Qty: 1 on 04/28/2010 at [facility] [id number]# / / Set Screw 3dx - [id number] Implanted:Qty: 4 on 04/28/2010 at [facility] [id number]# / / Cnnctr Tsrh 3dx Sm - [id number] Implanted:Qty: 4 on 04/28/2010 at [facility] Medtronic [id number]# / / Rios 3.5cmx5.5mm Pre-Cut - [id number] Implanted:Qty: 2 on 04/28/2010 at [facility] [id number]# / / Kit Infuse Md - [id number] Implanted:Qty: 1 on 04/28/2010 at [facility] Spine SOFOR DAN 10/26/2012 [id number]# / / [id number] Filler Bio [id number] - [id number] Implanted:Qty: 1 on 04/28/2010 at [facility] [id number]# / / [id number] Synfix Lr 26mm Implanted:Qty: 1 on 04/28/2010 at [facility] Spine [employer] Amplifinity [id number] S / / [id number] Description:SYNFIX LR 26MM Procedures Procedure Name Priority Date/Time Associated Diagnosis Comments BASIC METABOLIC PANEL Routine 11/16/2023 7:10 AM CDT Mild cognitive impairment of uncertain or unknown etiology HEMOGLOBIN Routine 11/16/2023 7:10 AM CDT Mild cognitive impairment of uncertain or unknown etiology RED CELL MORPHOLOGY Routine 11/02/2023 8 :05 AM CDT Pneumonia, unspecified organism Weakness Hypoxemia PLATELET ESTIMATE Routine 11/02/2023 8:0 5 AM CDT Pneumonia, unspecified organism Weakness Hypoxemia MANUAL DIFFERENTIAL Routine 11/02/2023 8 :05 AM CDT Pneumonia, unspecified organism Weakness Hypoxemia CBC WITH AUTO DIFFERENTIAL Routine 11/02/2023 8:05 AM CDT Pneumonia, unspecified organism Weakness Hypoxemia BASIC METABOLIC PANEL Routine 11/02/2023 8:05 AM CDT Pneumonia, unspecified organism Weakness Hypoxemia CBC WITH AUTO DIFFERENTIAL Routine 11/02/2023 8:05 AM CDT Pneumonia, unspecified organism Weakness Hypoxemia XR DXA BONE DENSITY 2 SITES AXIAL Routine 02/02/2018 3:00 PM CDT Disorder of bone Osteopenia, unspecified location from Last 3 Months or Most Recently Relevant to Health Maintenance Results * (ABNORMAL) HEMOGLOBIN (11/16/2023 7:10 AM CDT) HEMOGLOBIN 11.7(L) 12.0 - 16.0 g/dL 11/16/2023 8:00 AM CDT [facility] MCV 111(H) 80 - 100 fL 11/16/2023 8:00 AM CDT [facility] Blood BLOOD SPECIMEN / Unknown Venipuncture / Unknown 11/16/2023 7:10 AM CDT 11/16/2023 7:54 AM CDT Luci Meza NP HEMATOLOGY Performing Organization Address [facility] Co de Phone Number [facility] [address] [place] [address] * (ABNORMAL) BASIC METABOLIC PANEL (11/16/2023 7:10 AM CDT) Only the most recent of2 resultswithin the time period is included. SODIUM 147(H) 136 - 145 mmol/L 11/16/2023 8:23 AM CDT [facility] POTASSIUM 4.2 3.5 - 5.1 mmol/L 11/16/2023 8:23 AM [facility] CHLORIDE 108(H) 98 - 107 mmol/L 11/16/2023 8:23 AM [facility] CO2,TOTAL 30(H) 22 - 29 mmol/L 11/16/2023 8:23 AM [facility] ANION GAP 9 5 - 18 11/16/2023 8:23 AM [facility] GLUCOSE 86 70 - 99 mg/dL 11/16/2023 8:23 AM [facility] CALCIUM 8.9 8.8 - 10.2 mg/dL 11/16/2023 8:23 AM [facility] BUN 27(H) 8 - 23 mg/dL 11/16/2023 8:23 AM [facility] CREATININE 1.18(H) 0.50 - 0.90 mg/dL 11/16/2023 8:23 AM [facility] BUN/CREAT RATIO 23(H) 10 - 20 8:23 AM [facility] eGFR 48(L) >90 mL/min/1.7 3m2 11/16/2023 8:23 AM [facility] Comment:As of 2021, eG FR is calculated by the CKD-EPI creatinine equation without race adjustment. ??eGFR can be influenced by muscle mass, exercise, and diet. ??The reported eGFR is an estimation only and is only applicable if the renal function is stable. Blood BLOOD SPECIMEN / Unknown Venipuncture / Unknown 11/16/2023 7:10 AM CDT 11/16/2023 7:54 AM T Luci Meza NP CHEMISTRY [facility] [address] [place] [address] * (ABNORMAL) CBC WITH AUTO DIFFERENTIAL (11/02/2023 8:05 AM T) WHITE BLOOD COUNT 7.4 4.5 - 11.0 thou/cu mm 11/02/2023 12:05 PM [facility] RED BLOOD COUNT 3.79(L) 4.00 - 5.20 mil/cu mm 11/02/2023 12:05 PM [facility] HEMOGLOBIN 12.4 12.0 - 16.0 g/dL 11/02/2023 12:05 PM [facility] HEMATOCRIT 39.9 33.0 - 51.0 % 11/02/2023 12:05 PM [facility] MCV 105(H) 80 - 100 fL 11/02/2023 12:05 PM [facility] MCH 32.7 26.0 - 34.0 pg 11/02/2023 12:05 PM [facility] MCHC 31.1(L) 32.0 - 36.0 g/dL 11/02/2023 12:05 PM [facility] RDW 16.1(H) 11.5 - 15.5 % 11/02/2023 12:05 PM [facility] PLATELET COUNT 148 140 - 440 thou/cu mm 11/02/2023 12:05 PM [facility] MPV 11.0 6.5 - 11.0 fL 11/02/2023 12:05 PM [facility] Blood BLOOD SPECIMEN / Unknown Butterfly / Unknown 11/02/2023 8:05 AM CDT 11/02/2023 10:00 AM CDT Juaquin Jones MD HEMATOLOGY [facility] [address] [place] [address] * (ABNORMAL) RED CELL MORPHOLOGY (11/02/2023 8:05 AM CDT) ELLIPTOCYTES Few 11/02/2023 12:05 PM [facility] RBC COMMENT Present(A) RBC morphology appears normal, RBC morphology within normal limits for newborns. 11/02/2023 12:05 PM [facility] LARGE PLATELETS Present 12:05 PM [facility] Blood BLOOD SPECIMEN / Unknown Butterfly / Unknown 11/02/2023 8:05 AM CDT 11/02/2023 10:00 AM CDT Juaquin Jones MD HEMATOLOGY Performing Organization Address City/[facility]/ZIP Co de Phone Number [facility] [address] [place] [address] * PLATELET ESTIMATE (11/02/2023 8:05 AM CDT) PLATELET ESTIMATE Adequate Adequate, No estimate 11/02/2023 12:05 PM [facility] Blood BLOOD SPECIMEN / Unknown Butterfly / Unknown 11/02/2023 8:05 AM CDT 11/02/2023 10:00 AM CDT Juaquin Jones MD HEMATOLOGY Performing Organization Address [facility] Co de Phone Number [facility] [address] [place] [address] * MANUAL DIFFERENTIAL (11/02/2023 8:05 AM CDT) % NEUTROPHILS 66.0 % 11/02/2023 12:05 PM [facility] % LYMPHOCYTES 29.0 % 11/02/2023 12:05 PM [facility] % MONOCYTES 4.0 % 11/02/2023 12:05 PM [facility] % EOSINOPHILS 1.0 % 11/02/2023 12:05 PM [facility] % BASOPHILS 0.0 % 11/02/2023 12:05 PM [facility] NEUTROPHILS ABSOLUTE 4.9 1.7 - 7.0 thou/cu mm 11/02/2023 12:05 PM [facility] LYMPHOCYTES ABSOLUTE 2.1 0.9 - 2.9 thou/cu mm 11/02/2023 12:05 PM [facility] MONOCYTES ABSOLUTE 0.3 <0.9 thou/cu mm 11/02/2023 12:05 PM [facility] EOSINOPHILS ABSOLUTE 0.1 <0.5 thou/cu mm 11/02/2023 12:05 PM CDT [facility] BASOPHILS ABSOLUTE 0.0 <0.3 thou/cu mm 11/02/2023 12:05 PM CDT [facility] Blood BLOOD SPECIMEN / Unknown Butterfly / Unknown 11/02/2023 8:05 AM CDT 11/02/2023 10:00 AM CDT Juaquin Jones MD HEMATOLOGY [facility] [address] [place] [address] * XR DXA BONE DENSITY 2 SITES AXIAL (02/02/2018 3:00 PM CDT) Anatomical Region Laterality Modality Spine, HIPS, HIPL, HIPR Other 02/02/2018 3:41 PM CDT Narrative 02/02/2018 3:44 PM CDT EXAM: XR DXA BONE DENSITY 2 SITES AXIAL INDICATION: Disorder of bone. ??Osteopenia. ??Postmenopausal. TECHNIQUE: Standardized bone density measurements were obtained using the [employer] bone densitometry system. COMPARISON: None. FINDINGS: SPINE: [...] bone density measurements were obtained using the [employer] bone densitometry system. COMPARISON: None. 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 Luo Dentistry - General 01/12/18
--- OUTSIDE RECORDS SUMMARY | 2023-11-19 13:30 | XMS_ITS | Continuity of Care Document ---
Author Organization [facility] [place] Address [address] [place] [address] Phone Care Team Providers Care Gas Controller Name Role Phone Unavailable Unavailable Unavailable Advance Directives Directive Yes / No Effective Date File Name No Information Encounters Encounter Description Practice Location Reason(s) For Visit Diagnoses Date Provider Providers Copied on Encounter Z [facility], [address], [place], [address], [place] tel:[phone] [facility] No Information 5200 7 No Information Family History Family [...]
--- OUTSIDE RECORDS SUMMARY | 2023-11-19 13:30 | XMS_ITS | Data Portability ---
Author Organization [facility] Address [address] [facility] [address] [place] [address] Assessment No assessment recorded. Plan of Treatment [...] with a nephrect gilmar. Lamont Bravo MD [address] [place] [address],[facility] [address] [place] [address], [address], [facility] 16:32:18 Recurrent urinary tract infection Active 022 Managed with daily Bactrim Lamont Bravo MD [address] [place] [address],[address], [place], [address], [facility] 16:32:42 Problem Notes None recorded. Procedures Surgical History Date Name Laterality Status Provider Name and Address Organization Details Recorded Time 07/11/19 NEPHRECTOMY, HAND ASSISTED LAPAROSCOPIC (SURG) completed Mary moss [facility] 07/17/2021 09:46:04 Imaging Results None recorded. Procedure Notes None recorded. Medical Equipment None Reported. Allergies Allergen ID Allergen Name Allergen Category Reaction Reaction Severity Criticality Documentation Date Start Date Code Code System Note Provider Name and Address Organization Details Recorded Time 102315 Non-stero idal anti-infl ammatory agent (product) medicatio n Not available Not available Not available 03/20/2021 40613 005 SNOMED Lamont Bravo MD [address] [place] [address],[address], [place], [address], [facility] 1 16:22:56 883530 Levaquin medicatio n Not available Not available Not available 03/20/2021 76020 2 Bree Bravo MD [address] [place] [address],[address], [place], [address], [facility] 1 16:23:24 037199 levofloxa giorgio medicatio n other Not available Not available 08/11/20212021 66198 Bree Bravo MD [address] [place] [address],[address], [place], [address], [facility] 2 16:06:24 [id number] terbinafi ne hydrochlo ride medicatio n fever headache Not available Not available Not available 08/11/20212019 86791 8 Bree Bravo MD [address] [place] [address],[address], [place], [address], [facility] 2 16:06:24 Medications Name Sig Start Date [...] Updated DateTime 03/20/2021 160.02 cm 33.7 kg/m2 59458.55 g Lamont Bravo MD [address] [place] [address],[address], [phone] [place] [address] Urolog 03/20/2021 16:22:47 Date Recorded Body height Body mass index (BMI) Body weight Provider Name and Address Organization Details Last Updated DateTime 08/11/2021 160.02 cm 28.3 kg/m2 02305.78 g Lamont Bravo MD [address] [place] [address],[address] 08/11/2021 16:06:06 Social History Question Answer Notes LastModified by Organizat ion Details LastModified Time Tobacco Smoking Status Never Smoker Lamont Bravo MD [address] [place] [address],[address] [address], [facility] 03/20/2021 16:24:21 What Is Your Level Of [...] polysaccharide PPV23 04/30/2010 completed Lamont Bravo MD [address] [place] [address],[address], [address], [facility] 08/11/2021 16:07:09 Pneumococcal conjugate PCV 13 01/31/2015 completed Lamont Bravo MD [address] [place] [address],[address], [place], [address], [facility] 08/11/2021 16:07:09 pneumococcal polysaccharide PPV23 03/28/2015 completed Lamont Bravo MD [address] [place] [address],[address], [place], [address], [facility] 08/11/2021 16:07:09 Pneumococcal conjugate PCV 13 03/28/2016 completed Lamont Bravo MD [address] [place] [address],[address], [place], [address], [facility] 08/11/2021 16:07:10 pneumococcal polysaccharide PPV23 03/09/2016 completed Lamont Bravo MD [address] [place] [address],[address], [place], [address], [facility] 08/11/2021 16:07:10 Past Encounters Encounter ID Performer Location Encounter Start Date Encounter Closed Date Diagnosis/Indication Diagnosis SNOMED-CT Code [id number] MD TAMIKA [facility] [address] [place] [address] 03/20/2021 16:12:05 03/24/2021 11:06:39 Kidney stone [id number] MD TAMIKA [facility] 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 Tanner James [id number] Tanner Stephanie James 08/11/2021 2 [employer] [facility] (MEDICARE SUPPLEMENT) Tanner James [id number] Tanner Brown Erika 03/20/2021 1 [place] [employer] Tanner James [id number] Tanner James 03/20/2021 2 [employer] [place] (MEDICARE SUPPLEMENT) Tanner James [id number] Tanner James Notes Date Note Type Note Provider Name and Address Organization Details Recorded Time 03/20/2021 text/html HPI Notes: New patient here to discuss nephrectomy. She fell when she was at [place] and that led to a CT scan that showed an atrophic kidney and a staghorn stone. She's had recurrent pyelonephritis as well. She had ESWL in 2002. She also has a poor aortic valve. Lamont Bravo MD [address] [place] [address],[address] [place] [address], [address], [facility] 03/20/2021 17:02:40 08/11/2021 text/html HPI Notes: She h as recovered well from surgery. 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 Lamont Bravo MD [address] [place] [address],[address], [place], [address], [facility] 08/11/2021 16:37:50 OBGyn Episode No OBEpisode recorded.
--- OUTSIDE RECORDS SUMMARY | 2023-11-19 13:30 | XMS_ITS | Continuity of Care Document ---
Author Organization [facility] Address [address] [facility] [address] [place] [address] Phone Care Team Providers Care Public Relations Studies Director Name Role Phone Corona EASTMAN MD, [...] mL (20 mg/mL) intravenous solution as per worm raiser - No Longer Active Rasuvo (PF) 12.5 mg/0.25 mL subcutaneous auto-injector per rheumatology - No Longer Active prednisone 5 mg tablet take 1 tablet by oral route every day 5 MG - No Longer Active Procedures Procedure Date Unlisted Eval & Mgmt Serv Offic outpt EM [facility] Advance Directives Directive Yes / No Effective Date File Name No Information Encounters Encounter Description Practice Location Reason(s) For Visit Diagnoses Date Provider Providers Copied on Encounter Unlisted Eval & Mgmt Serv [facility], [address], [place], [place], [id number], tel:[phone] [facility] Infusion. (chief complaint) Rheumatoid arthritis, unspecified Corona Morocho. [address] [place] [address].,, [address], [place], [place], [id number], . tel:[phone] Referring Provider: Bailee Jeter MD, [address] [place] [address], [address], [place], [address]. tel:[phone] Offic outpt EM [facility], [address], [place], [place], [address], tel:[phone] [facility] HTN. (chief complaint)e st care (chief complaint) Elevated blood pressure readingEdema Corona Morocho. [address] [place] [address].,, [address], [place], [place], [id number], [place]. tel:[phone] Referring Provider: Bailee Jeter MD, [address] [place] [address]., [address], [place], [address]. tel:[phone] Family History Family Member Type Diagnosis Age At Onset Mother Problem (finding) malignant neop lasm of breast in first degree relative Mother Problem (finding) stroke Father Problem (finding) prostate cancer Mother Problem (finding) hypertension Payers Payer name Insurance type Covered green party ID Authoriza tion(s) Medicare MB [id number] Nelson [id number] Social History Type Description Quantity Date Captured [...] HTN. Previous PCP retired. 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 Reports hx of RA, followed by worm raiser in [place]. Reports was seen in ER a few [...]
--- OUTSIDE RECORDS SUMMARY | 2023-11-19 13:31 | XMS_ITS | Clinical Summary ---
Author Organization [facility] Address [address] [place] [address] Care Team Providers Care Field Service Coordinator Name Role Phone Basilio Healy MD Primary Care Provider [phone] Source Comments You are receiving this document [...] for each transition of care or referral. [employer] Allergies Active Allergy Reactions Criticality Noted Date [...] Patient receives drug assistance for Enbrel from [employer]. Approved until 06/27/22-jm Problem Noted Date Diagnosed [...] annual mammogram; annual physical exam breast and paleobotanist Chronic anxiety 12/21/2011 Overview: Start sertraline 11/26/11; improved although residual; increase dose from 50mg to 100mg 12/21/2011. Patient discontinued 05/2012. 12/20/2012 start venlafaxine 37.5mg Osteopenia 12/07/2011 Overview: Diamond Saw Operator wants patient to be on alendronate [...] Overview: Followed by Dr Swapnil Henley: Sheila uBrleson On MTX and prednisone. June 2012 tried [...] Type Department Care Team Description 10/27/2023 Notes/Orders [facility] [address] Rheumatology [address] [place] [address] Man Sánchez MD 10/27/2023 Telephone [facility] 3931 Pulmonary Medicine 39[address] [place] [address] Shara Mitchell MD Hospital / Follow Up 10/26/2023 10:40 AM CDT Ancillary Procedure Radiology PACS [address] [place] [address] Provider, Foreign Images 09/02/2023 Orders Only HIM DEPARTMENT ProviderWendy MD from Last 3 Months Immunizations Name Administration Dates Next Due Flu Vac (3+ yrs) 04/03/2013, 2,04/30/2010, 009,04/10/2003 Flu Vac Preserv Free (3+yrs) 04/30/2010,04/15/20 09 HepA Adult (19+ yrs) 10/20/2004,03/07/2004 HepA Ped/Adol (1-18 yrs) 10/20/2004 HepA, Pediatric (DO NOT USE; for MIIC only) 10/20/2004 IPV (Polio) 03/07/2004 Influenza (Fluad) 04/19/2018 Influenza IIV3 (Trivalent) Demetrice mendoza Highdose, 65+ Yrs (54923) 04/25/2019,03/09/2016,03/30/2014 Influenza IIV4 (Quadrivalent ) 0.5mL (79639) 04/23/2021,04/25/2019,04/19/2018, 016,03/30/2014,04/03/2013,04/15/2012,08/2009,04/15/2009,04/10/2003 Influenza IIV4 (Quadrivalent ) Fluzone, [...] Comments Blood Pressure 135/72 07/18/2019 3:38 PM CASTING ASSISTANT Pulse 104 10/22/2022 1:45 PM CDT Temperature [...] Info) Description 12/13/2023 1:00 PM CDT Appointment [facility] [address] [place], [place] [phone] Man Sánchez MD [address] [place], [place] [address] 12/14/2023 1:00 PM CDT Appointment [facility] 3931 Pulmonary Lab 3931 [place] [address] 12/14/2023 2:00 PM CDT Office Visit [facility] 3931 Pulmonary Medicine [address] [place], [place] [address] Shara Mitchell MD [address] [facility] [address] [place], [place] [address] Health Maintenance Due Date Last Done Comments Medicare Annual Wellness Visit 1945 COVID-19 Vaccine ( season) 2023 03/24/2022, 05/02/2021, 09/10/2020, Additional history exists Colonoscopy 10/27/2023 10/26/2018 (Comp leted), 11/12/2008 (Completed) Dexa 10/07/2024 10/07/2022, 02/02/2018 DTaP/Tdap/Td (3 - Tdap) 12/23/2030 12/24/19 21, [...] Priority Date/Time Associated Diagnosis Comments FOREIGN IMAGE(S) CT ANGIO CHEST Routine 10/26/2023 10:40 AM CDT LABORATORY REPORT 09/02/2023 EXT RSLT - CREATININE Routine 08/24/2023 2:15 PM CASTING ASSISTANT EXT RSLT - AST Routine 08/24/2023 2:15 PM CASTING ASSISTANT EXT RSLT - ALT Routine 08/24/2023 2:15 PM CASTING ASSISTANT EXT RSLT - WHITE BLOOD CELL COUNT (WBC) Routine 08/24/2023 2:15 PM CASTING ASSISTANT EXT RSLT - HEMOGLOBIN Routine 08/24/2023 2:15 PM CASTING ASSISTANT EXT RSLT - PLATELET COUNT Routine 08/24/2023 2:15 PM CASTING ASSISTANT DXA BONE DENSITY SPINE/HIP INC VERT FX ASSESS Routine 10/07/2022 3:48 PM CDT Rheumatoid arthritis involving multiple joints (HRC) High risk medication use Current chronic use of systemic steroids Screening for osteoporosis HEPATITIS C PCR QUANTITATIVE Routine 12/12/2015 11:44 AM CDT Encounter for long-term (current) use of medications from Last 3 Months or Most Recently Relevant to Health Maintenance Results * Foreign Image(s) CT Angio Chest (10/26/2023 10:40 AM CDT) Narrative POCT - 11/02/2023 10:36 AM CDT These outside images have been uploaded into PACS. If the results were provided, they will be located in the patient's chart under the Media or Imaging tab. Foreign Images Provider RAD NON-REPORTAB LES Performing Organization Address City/[facility] Co de Phone Number POCT * LABORATORY REPORT (09/02/2023) Interface Provider MD CLANCY/OTHER/AR * Creatinine (Ext Rslt) (08/24/2023 2:15 PM CASTING ASSISTANT) Pathologist [facility] EXT RSLT - CREATININE 1.0 0.5 - 1.0 mg/dL PN EXTERNAL LAB-SEE SCANNED DOCUMENT 08/24/2023 2:15 PM CASTING ASSISTANT Man Sánchez MD LAB EXTERNAL RESULT Performing Organization Address [facility] de Phone Number PN EXTERNAL LAB-SEE SCANNED DOCUMENT Do Not Mail * White Blood Cell Count (WBC) (Ext Rslt) (08/24/2023 2:15 PM CASTING ASSISTANT) Pathologist [facility] EXT RSLT - WBC 9.16 4.50 - 11.0 K/uL PN EXTERNAL LAB-SEE SCANNED DOCUMENT 08/24/2023 2:15 PM CASTING ASSISTANT Man Sánchez MD LAB EXTERNAL RESULT Performing Organization Address [facility] Co de Phone Number PN EXTERNAL LAB-SEE SCANNED DOCUMENT Do Not Mail * Hemoglobin (Ext Rslt) (08/24/2023 2:15 PM CASTING ASSISTANT) EXT RSLT - HGB 12.8 12.0 - 16.0 gm/dL PN EXTERNAL LAB-SEE SCANNED DOCUMENT 08/24/2023 2:15 PM CASTING ASSISTANT Man Sánchez MD LAB EXTERNAL RESULT Performing Organization Address [facility] Co de Phone Number PN EXTERNAL LAB-SEE SCANNED DOCUMENT Do Not Mail * (ABNORMAL) Platelet Count (Ext Rslt) (08/24/2023 2:15 PM CASTING ASSISTANT) [facility] EXT RSLT - PLATELET COUNT 96(L) 140 - 440 K/uL PN EXTERNAL LAB-SEE SCANNED DOCUMENT 08/24/2023 2:15 PM CASTING ASSISTANT Man Sáncehz MD LAB EXTERNAL RESULT Performing Organization Address [facility] de Phone Number PN EXTERNAL LAB-SEE SCANNED DOCUMENT Do Not Mail * (ABNORMAL) AST (Ext Rslt) (08/24/2023 2:15 PM CASTING ASSISTANT) [facility] EST RSLT - AST 39(H) 12 - 35 U/L PN EXTERNAL LAB-SEE SCANNED DOCUMENT 08/24/2023 2:15 PM CASTING ASSISTANT Man Sánchez MD LAB EXTERNAL RESULT Performing Organization Address [facility] Co de Phone Number PN EXTERNAL LAB-SEE SCANNED DOCUMENT Do Not Mail * ALT (Ext Rslt) (08/24/2023 2:15 PM CASTING ASSISTANT) [facility] EXT RSLT - ALT 31 4 - 35 U/L PN E XTERNAL LAB-SEE SCANNED DOCUMENT 08/24/2023 2:15 PM CASTING ASSISTANT Man Sánchez MD LAB EXTERNAL RESULT Performing Organization Address [facility] Co de Phone Number PN EXTERNAL LAB-SEE SCANNED DOCUMENT Do Not Mail * DXA Bone Density Spine/[employer] Vert FX Assess (10/07/2022 3:48 PM CDT) [facility] DXA Hip Left Bone Mineral Density 0.825 [...] not included. Patient Name: Tanner James Densitometer: [employer] W Appt Dept/Resource: Granda Bone Density GRANDA [...] trabecular bone, and is derived from the [id number]-[id number] changes of bone density embedded in the [...] Performed by Real Time PCR CLIA Number [id number] HCV Quant iu/ml <12 IU/ml HP CONVERSION Comment:CLIA Number [id number] HCV Quant Log iu/ml <1.08 Log IU/ml HP CONVERSION Comment: Performed at [facility], [address] [place] [address] ??[id number] CLIA Number [id number] 12/12/2015 11:4 4 AM CDT 12/12/2015 3:01 PM CDT Swapnil Henley MD LAB_1 HP CONVERSION from Last 3 Months or Most Recently Relevant to Health Maintenance Advance Directives Documents on File Type Date Recorded Patient Cutting Supervisor Expl anation POLST 02/02/2017 01/05/2017 Care Teams Field Service Coordinator Relationship Specialty Start Date End Date Basilio Healy MD [facility] [address] [place] [address] PCP - General Family Practice 10/28/22
--- OUTSIDE RECORDS SUMMARY | 2023-11-19 13:31 | XMS_ITS ---
Author Organization [facility] Address [address] [place] [address] Care Team Providers Care Project Coordinator Rn Name Role Phone Unavailable Unavailable Unavailable Surgery Details Not on file Complications Check Surgery Details section. Procedure Estimated Blood Loss Check Surgery Details section. Procedure Findings Check Surgery Details section. Procedure Specimens Taken Check Surgery Details section.
--- OUTSIDE RECORDS SUMMARY | 2023-11-19 13:31 | XMS_ITS | Clinical Summary ---
Author Organization [facility] Address [address] [place] [address] Care Team Providers Care Healthcare Management Name Role Phone Elsewhere, Pcp Primary Care Provider Unavailabl e Source Comments Patient records contain information from all sites at [facility]. For routine questions regarding patient records, call [phone] during business hours, M-F 8:00 AM - 5:00 PM Central Time. Record requests for emergency care only can be directed to [phone] at any time.[facility] Allergies Active Allergy Reactions Criticality [...] mg /3 mL nebulizer solutionIndicati ons:Bronchiectas is ([facility]) USE 1 VIAL VIA NEBULIZER TWICE DAILY. USE PRIOR TO SALINE NEBULIZER SOLUTION FOR BRONCHIAL HYGIENE(MUCUS CLEARANCE) 180 mL 11 01/30/2022 Active sodium chloride (HYPERSAL) 7 % nebulizer solutionIndicati ons:Bronchiectas is ([facility]) USE 1 VIAL VIA NEBULIZER TWICE DAILY. [...] How often do you attend chur or quaker services? Never 08/12/2022 Do you belong to [...] and heating? Not hard at all 08/12/2022 [facility] - Occupational Stress Questionnaire Answer Date [...] 36.1 ??C (97 ??F) 08/17/2022 10:57 AM NUCLEAR EQUIPMENT OPERATOR Respiratory Rate 18 01/09/2022 8:24 AM CDT [...] Vaccines (1 of 2) 1964 COVID-19 Vaccine (2022- season) 2023 03/24/2022, 05/02/2021, 09/10/2020, Additional history [...] METABOLIC PANEL, S/P Routine 07/27/2023 11:41 AM NUCLEAR EQUIPMENT OPERATOR BI BREAST SCREENING BILATERAL WITH TOMOSYNTHESIS Routine 02/08/2019 1:03 PM CDT from Last 3 Months or Most Recently Relevant to Health Maintenance Advance Directives For more information, please contact: [phone] * DNR/DNI (Latest Code Status on File) Date Activated Date Inactivated Comments 12/28/2021 12:42 PM 01/09/2022 1:10 PM * DNR/DNI Date Activated Date Inactivated Comments 12/23/2020 8:47 PM 12/25/2020 5:38 PM * Full Code Date Activated Date Inactivated Comments 12/23/2020 8:20 PM 12/23/2020 8:47 PM Question Answer Comments Full Code: Discussed Care Teams Healthcare Management Relationship Specialty Start Date End Date Elsewhere, Pcp PCP - General 12/24/20
--- OUTSIDE RECORDS SUMMARY | 2023-11-19 13:31 | XMS_ITS | Encounter Summary ---
Author Organization [employer] Address [address] [place] [address] Care Team Providers Care Laborer Pipeline Name Role Phone Basilio Healy MD Primary Care Provider Encounter Details Date Type Department Care Team (Late st Contact Info) Description 10/27/2023 Notes/Orders [place] [address] [place] [address]. [place], [place] [phone] Man Sánchez MD [address] [place] [id number] Social History Tobacco Use Types Packs/Day Years [...] Info) Description 12/13/2023 1:00 PM CDT Appointment [facility] [address] [place] [address] Man Sánchez MD [address] [place], [place] [address] 12/14/2023 1:00 PM CDT Appointment [facility] 3931 Pulmonary Lab [address]31 [place] [address] 12/14/2023 2:00 PM CDT Office Visit Specialty Center 3931 Pulmonary Medicine 3931 [place] [address] Shara Mitchell MD [address] [facility] [address] [place] [address] documented as of this encounter Visit Diagnoses Not on filedocumented in this encounter Care Teams Laborer Pipeline Relationship Specialty Start Date End Date Basilio Healy MD [facility] [address] [place] [address] PCP - General Family Practice 10/28/22 documented as of this encounter
--- OUTSIDE RECORDS SUMMARY | 2023-11-19 13:31 | XMS_ITS | Referral Summary ---
Author Organization [facility] Address [address] [place] [address] Care Team Providers Care Occupational Health Nurse Name Role Phone Elsewhere, Pcp Primary Care Provider Unavailabl e Source Comments Patient records contain information from all sites at [facility]. For routine questions regarding patient records, call [phone] during business hours, M-F 8:00 AM - 5:00 PM Central Time. Record requests for emergency care only can be directed to [phone] at any time.[facility] Allergies Active Allergy Reactions Criticality Noted Date [...] mg /3 mL nebulizer solutionIndicati ons:Bronchiectas is ([facility]) USE 1 VIAL VIA NEBULIZER TWICE DAILY. USE PRIOR TO SALINE NEBULIZER SOLUTION FOR BRONCHIAL HYGIENE(MUCUS CLEARANCE) 180 mL 11 01/30/2022 Active sodium chloride (HYPERSAL) 7 % nebulizer solutionIndicati ons:Bronchiectas is ([facility]) USE 1 VIAL VIA NEBULIZER [...] and heating? Not hard at all 08/12/2022 [facility] - Occupational Stress Questionnaire Answer Date [...] 36.1 ??C (97 ??F) 08/17/2022 10:57 AM COMMERCIAL ESCROW ASSISTANT Respiratory Rate 18 01/09/2022 8:24 AM CDT [...] METABOLIC PANEL, S/P Routine 07/27/2023 11:41 AM COMMERCIAL ESCROW ASSISTANT BI BREAST SCREENING BILATERAL WITH TOMOSYNTHESIS Routine 02/08/2019 1:03 PM CDT from Last 3 Months or Most Recently Relevant to Health Maintenance Advance Directives For more information, please contact: [phone] * DNR/DNI (Latest Code Status on File) Date Activated Date Inactivated Comments 12/28/2021 12:42 PM 01/09/2022 1:10 PM * DNR/DNI Date Activated Date Inactivated Comments 12/23/2020 8:47 PM 12/25/2020 5:38 PM * Full Code Date Activated Date Inactivated Comments 12/23/2020 8:20 PM 12/23/2020 8:47 PM Question Answer Comments Full Code: Discussed Care Teams Occupational Health Nurse Relationship Specialty Start Date End Date Elsewhere, Pcp PCP - General 12/24/20
--- OUTSIDE RECORDS SUMMARY | 2023-11-19 13:31 | XMS_ITS | Encounter Summary ---
Author Organization [facility] Address [address] [place] [address] Care Team Providers Care Verification Manager Name Role Phone Basilio Healy MD Primary Care Provider [phone] Reason for Visit * Reason Comments Hospital / Follow Up Encounter Details Date Type Department Care Team (Late st Contact Info) Description 10/27/2023 Telephone [facility] 3931 Pulmonary Medicine [address] [place], [place] [phone] Shara Mitchell MD [address] [facility] [address] [place], [place] [phone] Hospital / Follow Up Social History Tobacco [...] email to retrieve all chest films from [facility] in 2023. Frontline, Please contact pt to reschedule. Thank you * Shara Mitchell MD - 10/27/2023 11:28 AM CDT I called and spoke with Dr. Vasquez, who is currently caring for Tanner at [facility]. She was recently admitted for a UTI and improved. She was at a [facility] but developed a fever and hypoxia and returned to the hospital. CT imaging showed infiltrates, chronicity unclear. Pulmonary RNs: She was scheduled to see me tomorrow, October 27, but this appointment will need to be rescheduled. Please see if we can obtain the CT imaging from [facility], and then she will not need a repeat CT prior to her visit. Thanks. * Ame Asencio, RN - 10/27/2023 9:27 AM CDT Incoming call from Dr. Vasquez from [facility]. He states patient is currently admitted and he would like to speak with Dr. Mitchell. He is requesting a call back on his cell phone, . documented in this encounter Plan of Treatment Upcoming Encounters Date Type Department Care Team (Late st Contact Info) Description 12/13/2023 1:00 PM CDT Appointment [facility] [address] [place], [place] [address] Man Sánchez MD [facility] [place], [place] [address] 12/14/2023 1:00 PM CDT Appointment [facility] 3931 Pulmonary Lab [address] [place], [place] [address] 12/14/2023 2:00 PM CDT Office Visit [facility]ty Center 3931 Pulmonary Medicine [address] [place] [address] Shara Mitchell MD [address] [facility] [address] [place] [address] documented as of this encounter Visit Diagnoses Not on filedocumented in this encounter Care Teams Verification Manager Relationship Specialty Start Date End Date Basilio Healy MD [facility] [address] [place] [address] PCP - General Family Practice 10/28/22 documented as of this encounter
--- OUTSIDE RECORDS SUMMARY | 2023-11-19 13:31 | XMS_ITS | Encounter Summary ---
Author Organization [facility] Address [address] [place] [address] Care Team Providers Care Analog Ic Design Engineer Name Role Phone Basilio Healy MD Primary Care Provider [phone] Reason for Visit * (Routine) - Incomplete Specialty Diagnoses / Procedures Referred By Contac t Referred To Contact Procedures Foreign Image(s) CT Angio Chest Provider, Foreign Images [address] [place] [address] Referral ID Status Reason Start Date Expiration Date V isits Requested Visits Authorized [id number] Incomplete 11/02/2023 01/31/2025 1 1 Encounter Details Date Type Department Care Team (Late st Contact Info) Description 10/26/2023 10:40 AM CDT Ancillary Procedure Radiology PACS [address] [place] [address] Provider, Foreign Images [address] [place] [address] Social History Tobacco Use Types Packs/Day Years [...] Info) Description 12/13/2023 1:00 PM CDT Appointment [facility] [address] [place] [address] Man Sánchez MD [address] [place], [place] [address] 12/14/2023 1:00 PM CDT Appointment [facility] 3931 Pulmonary Lab [address] [facility] [place] [address] 12/14/2023 2:00 PM CDT Office Visit [facility] 3931 Pulmonary Medicine [address] [place] [address] Shara Mitchell MD [address]31 [facility] [address] [place], [place] [address] documented as of this encounter Procedures Procedure Name Priority Date/Time Associated Diagnosis Comments FOREIGN IMAGE(S) CT ANGIO CHEST Routine 10/26/2023 10:40 AM CDT documented in this encounter Results * Foreign Image(s) CT Angio Chest [...] on filedocumented in this encounter Care Teams Analog Ic Design Engineer Relationship Specialty Start Date End Date Basilio Healy MD [facility] [address] [place] [address] PCP - General Family Practice 10/28/22 documented as of this encounter
--- OUTSIDE RECORDS SUMMARY | 2023-11-19 13:31 | XMS_ITS | Encounter Summary ---
Author Organization [email or web address] Address [address] [place] [address] Care Team Providers Care Marketing And Communications Officer Name Role Phone Basilio Healy MD Primary Care Provider [phone] Encounter Details Date Type Department Care Team (Latest Contact Info) Description 09/02/2023 Orders Only HIM DEPARTMENT Provider, [place] [address] Social History Tobacco Use Types Packs/Day Years [...] Info) Description 12/13/2023 1:00 PM CDT Appointment [facility] [address] [place] [address] Man Sánchez MD [facility] [place] [address] 12/14/2023 1:00 PM CDT Appointment [facility] 3931 Pulmonary Lab [address]31 [place] [address] 12/14/2023 2:00 PM CDT Office Visit [facility]ty Center 3931 Pulmonary Medicine [address] [place] [address] Shara Mitchell MD [address] [facility] [address] [place] [address] documented as of this encounter Procedures Procedure Name Priority Date/Time Associated Diagnosis Comments LABORATORY REPORT 09/02/2023 documented in this encounter Results * LABORATORY REPORT (09/02/2023) Interface Provider DUMMY/OTHER/AR documented in this encounter Visit Diagnoses Not on filedocumented in this encounter Care Teams Marketing And Communications Officer Relationship Specialty Start Date End Date Basilio Healy MD [facility] [address] [place] [address] PCP - General Family Practice 10/28/22 documented as of this encounter
--- OUTSIDE RECORDS SUMMARY | 2023-11-19 13:32 | XMS_ITS | Encounter Summary ---
Author Organization [facility] Address [address] [place] [address] Care Team Providers Care Patient Financial Services Specialist Name Role Phone Basilio Healy MD Primary Care Provider [phone] Encounter Details Date Type Department Care Team (Late st Contact Info) Description 08/20/2023 Telephone [facility]ty Center 3931 Pulmonary Medicine [address] [place], [place] [phone] Shara Mitchell MD 3931 [facility] [address] [place], [place] [phone] Social History Tobacco Use Types Packs/Day Years [...] make a CT appointment before her follow-up N RESOURCES MANAGER * Yessenia Olivarez - 08/20/2023 4:00 PM [...] this imaging with us before her appt? N RESOURCES MANAGER documented in this encounter Plan of Treatment Upcoming Encounters Date Type Department Care Team (Late st Contact Info) Description 12/13/2023 1:00 PM CDT Appointment [facility] [address] [place], [place] [address] Man Sánchez MD [address] [place] [address] 12/14/2023 1:00 PM CDT Appointment [facility] 3931 Pulmonary Lab [address] [place] [address] 12/14/2023 2:00 PM CDT Office Visit Specialty Center 3931 Pulmonary Medicine [address] [place] [address] Shara Mitchell MD [address] [facility] [address] [place] [address] documented as of this encounter Visit Diagnoses Not on filedocumented in this encounter Care Teams Patient Financial Services Specialist Relationship Specialty Start Date End Date Basilio Healy MD [facility] [address] [place] [address] PCP - General Family Practice 10/28/22 documented as of this encounter
--- OUTSIDE RECORDS SUMMARY | 2023-11-19 13:32 | XMS_ITS | Encounter Summary ---
Author Organization [facility] Address [address] [place] [address] Care Team Providers Care Screen Printing Equipment Setter Name Role Phone Basilio Healy MD Primary Care Provider [phone] Reason for Visit * Reason Comments Refill Encounter Details Date Type Department Care Team (Late st Contact Info) Description 02/06/2016 Refill [place] [address] [place] [address]. [place], [place] [phone] Swapnil Henley MD [address] [place] [address] Refill Social History Tobacco Use Types Packs/Day Years Used Date Smoking Tobacco: Never Assessed Sex and Gender Information Value Date Recorded Sex Assigned at Not on file Gender Identity Not on file Sexual Orientation Not on file documented as of this encounter Plan of Treatment Upcoming Encounters Date Type Department Care Team (Late Contact Info) Description 12/13/2023 1:00 PM CDT Appointment [facility] [address] [place] [address] Man Sán[place] [address] [place] [id number] 12/14/2023 1:00 PM CDT Appointment [facility] 3931 Pulmonary Lab [address] [place] [address] 12/14/2023 2:00 PM CDT Office Visit [facility]ty Center 3931 Pulmonary Medicine [address] [place] [address] Shara Mitchell MD [address] [facility] [address] [place] [address] documented as of this encounter Visit Diagnoses Not on filedocumented in this encounter Care Teams Screen Printing Equipment Setter Relationship Specialty Start Date End Date Basilio Healy MD [facility] [address] [place] [address] PCP - General Family Practice 10/28/22 documented as of this encounter
== END 2023-11-19 13:28 | disposition home or self-care (01) ==
LOC: WOUND 13:28
PROVIDERS: PCP Family Medicine; Visit Provider Physician Assistant
DX: L89.894 Pressure ulcer of other site, stage 4 (principal)
CPT/HCPCS: 97597

== ENCOUNTER 2023-11-26 13:30 | Outpatient (CLI) | payer MEDICARE, OTHER, SELFPAY | END 2023-11-26 13:31 | disposition home or self-care (01) | LOC: WOUND 13:30 | PROVIDERS: PCP Family Medicine; Visit Provider Nurse Practitioner Family | DX: L89.894 Pressure ulcer of other site, stage 4 (principal); I35.0 Nonrheumatic aortic (valve) stenosis; M62.81 Muscle weakness (generalized) | CPT/HCPCS: 11042 ==

== ENCOUNTER 2023-12-03 10:34 | Outpatient (CLI) | payer MEDICARE, OTHER, SELFPAY ==
--- OUTSIDE RECORDS SUMMARY | 2023-12-03 10:38 | XMS_ITS ---
Author Organization [facility] Address [address] [place] [address] Care Team Providers Care Bridge Mechanic Name Role Phone Unavailable Unavailable Unavailable Surgery Details Not on file Complications Check Surgery Details section. Procedure Estimated Blood Loss Check Surgery Details section. Procedure Findings Check Surgery Details section. Procedure Specimens Taken Check Surgery Details section.
--- OUTSIDE RECORDS SUMMARY | 2023-12-03 10:38 | XMS_ITS | Clinical Summary ---
Author Organization [facility] Address [place], [place] [address] Care Team Providers Care Umbrella Cutter Name Role Phone Swapnil Henley MD Unavailable Marlys Woodruff RD Unavailable Funmi Medina Unavailable [phone] Kyle Healy MD Primary Care Provider [phone] Allergies Active Allergy Reactions Criticality Noted Date [...] annual mammogram; annual physical exam breast and licensed acupuncturist Shoulder impingement 04/03/2013 017 Chronic anxiety 12/21/2011 05/05/2023 Overview: Start sertraline 11/26/11; improved although residual; increase dose from 50mg to 100mg 12/21/2011. Patient discontinued 05/2012. 12/20/2012 start venlafaxine 37.5mg Osteopenia 12/07/2011 05/05/2023 Overview: Dog Races Manager wants patient to be on alendronate indefinitely [...] Overview: HGB 9.6 ON ADMIT TO [facility] 03/2009; ENDOSCOPY REVEALED SHALLOW GASTRIC ULCERATIONS WITH [...] Lab Requisition [facility] [phone] Luci Meza NP 10/29/2023 Lab Requisition [facility] [phone] Juaquin Jones MD from Last 3 Months [...] Comments Blood Pressure 159/76 07/27/2023 1:14 PM PHOTOGRAPH EDITOR Pulse 52 07/27/2023 1:14 PM PHOTOGRAPH EDITOR Temperature 36.4 ??C (97.6 ??F) 07/01/2023 8:06 AM CS T Respiratory Rate 16 07/09/2023 3:27 PM PHOTOGRAPH EDITOR Oxygen Saturation 97% 07/27/2023 1:14 PM PHOTOGRAPH EDITOR Inhaled Oxygen Concentration - - Weight 80.3 kg (177 lb) 07/27/2023 1:14 PM PHOTOGRAPH EDITOR Height 160 cm (5' 3) 07/27/2023 1:14 PM PHOTOGRAPH EDITOR Body Mass Index 31.35 07/27/2023 1:14 PM PHOTOGRAPH EDITOR Plan of Treatment Health Maintenance Due Date [...] 02/27/2015, 11/26/2011 Medical Devices Implanted Type Area E Learning Manager Device Identifier Shelf Expiration Date Model / Serial / Lot Screw Tsrh Og Thin 6.5x50mm - [id number] Implanted:Qty: 3 on 04/28/2010 at [facility] N/A: Spine SOFAMOR DANEK [id number]# / / Screw Locking 4x20mm Fine Tip Titnm - [id number] Implanted:Qty: 4 on 04/28/2010 at [facility] Giveo [id number] # / / Screw Thin Crest 6.5x45mm - [id number] Implanted:Qty: 1 on 04/28/2010 at [facility] [id number]# / / Set Screw 3dx - [id number] Implanted:Qty: 4 on 04/28/2010 at [facility] [id number]# / / Cnnctr Tsrh 3dx Sm - [id number] Implanted:Qty: 4 on 04/28/2010 at [facility] Medtronic [id number]# / / Rios 3.5cmx5.5mm Pre-Cut - [id number] Implanted:Qty: 2 on 04/28/2010 at [facility] [id number]# / / Kit Infuse Md - [id number] Implanted:Qty: 1 on 04/28/2010 at [facility] Spine SOFOR DAN 10/26/2012 [id number]# / / [id number] Filler Bio [id number] - [id number] Implanted:Qty: 1 on 04/28/2010 at [facility] [id number]# / / [id number] Synfix Lr 26mm Implanted:Qty: 1 on 04/28/2010 at [facility] Spine [email or web address] [id number] S / / [id number] Description:SYNFIX LR 26MM Procedures Procedure Name Priority [...] - 16.0 g/dL 11/16/2023 8:00 AM CDT [facility] MCV 111(H) 80 - 100 fL 11/16/2023 8:00 AM CDT [facility] Blood BLOOD SPECIMEN / Unknown Venipuncture / Unknown 11/16/2023 7:10 AM CDT 11/16/2023 7:54 AM CDT Luci Meza NP HEMATOLOGY Performing Organization Address [facility] Co de Phone Number [facility] [address] [place] [address] * (ABNORMAL) BASIC METABOLIC PANEL (11/16/2023 7:10 AM CDT) Only the most recent of2 resultswithin the time period is included. SODIUM 147(H) 136 - 145 mmol/L 11/16/2023 8:23 AM CDT [facility] POTASSIUM 4.2 3.5 - 5.1 mmol/L 11/16/2023 8:23 AM [facility] CHLORIDE 108(H) 98 - 107 mmol/L 11/16/2023 8:23 AM [facility] CO2,TOTAL 30(H) 22 - 29 mmol/L 11/16/2023 8:23 AM [facility] ANION GAP 9 5 - 18 11/16/2023 8:23 AM [facility] GLUCOSE 86 70 - 99 mg/dL 11/16/2023 8:23 AM [facility] CALCIUM 8.9 8.8 - 10.2 mg/dL 11/16/2023 8:23 AM [facility] BUN 27(H) 8 - 23 mg/dL 11/16/2023 8:23 AM [facility] CREATININE 1.18(H) 0.50 - 0.90 mg/dL 11/16/2023 8:23 AM [facility] BUN/CREAT RATIO 23(H) 10 - 20 8:23 AM [facility] eGFR 48(L) >90 mL/min/1.7 3m2 11/16/2023 8:23 AM [facility] Comment:As of 2021, eG FR is calculated by the CKD-EPI creatinine equation without race adjustment. ??eGFR can be influenced by muscle mass, exercise, and diet. ??The reported eGFR is an estimation only and is only applicable if the renal function is stable. Blood BLOOD SPECIMEN / Unknown Venipuncture / Unknown 11/16/2023 7:10 AM CDT 11/16/2023 7:54 AM T Luci Meza NP CHEMISTRY [facility] [address] [place] [address] * (ABNORMAL) CBC WITH AUTO DIFFERENTIAL (11/02/2023 8:05 AM T) WHITE BLOOD COUNT 7.4 4.5 - 11.0 thou/cu mm 11/02/2023 12:05 PM [facility] RED BLOOD COUNT 3.79(L) 4.00 - 5.20 mil/cu mm 11/02/2023 12:05 PM [facility] HEMOGLOBIN 12.4 12.0 - 16.0 g/dL 11/02/2023 12:05 PM [facility] HEMATOCRIT 39.9 33.0 - 51.0 % 11/02/2023 12:05 PM [facility] MCV 105(H) 80 - 100 fL 11/02/2023 12:05 PM [facility] MCH 32.7 26.0 - 34.0 pg 11/02/2023 12:05 PM [facility] MCHC 31.1(L) 32.0 - 36.0 g/dL 11/02/2023 12:05 PM [facility] RDW 16.1(H) 11.5 - 15.5 % 11/02/2023 12:05 PM [facility] PLATELET COUNT 148 140 - 440 thou/cu mm 11/02/2023 12:05 PM [facility] MPV 11.0 6.5 - 11.0 fL 11/02/2023 12:05 PM [facility] Blood BLOOD SPECIMEN / Unknown Butterfly / Unknown 11/02/2023 8:05 AM CDT 11/02/2023 10:00 AM CDT Juaquin Jones MD HEMATOLOGY [facility] [address] [place] [address] * (ABNORMAL) RED CELL MORPHOLOGY (11/02/2023 8:05 AM CDT) ELLIPTOCYTES Few 11/02/2023 12:05 PM [facility] RBC COMMENT Present(A) RBC morphology appears normal, RBC morphology within normal limits for newborns. 11/02/2023 12:05 PM [facility] LARGE PLATELETS Present 12:05 PM [facility] Blood BLOOD SPECIMEN / Unknown Butterfly / Unknown 11/02/2023 8:05 AM CDT 11/02/2023 10:00 AM CDT Juaquin Jones MD HEMATOLOGY Performing Organization Address City/[facility]/ZIP Co de Phone Number [facility] [address] [place] [address] * PLATELET ESTIMATE (11/02/2023 8:05 AM CDT) PLATELET ESTIMATE Adequate Adequate, No estimate 11/02/2023 12:05 PM [facility] Blood BLOOD SPECIMEN / Unknown Butterfly / Unknown 11/02/2023 8:05 AM CDT 11/02/2023 10:00 AM CDT Juaquin Jones MD HEMATOLOGY Performing Organization Address [facility] Co de Phone Number [facility] [address] [place] [address] * MANUAL DIFFERENTIAL (11/02/2023 8:05 AM CDT) % NEUTROPHILS 66.0 % 11/02/2023 12:05 PM [facility] % LYMPHOCYTES 29.0 % 11/02/2023 12:05 PM [facility] % MONOCYTES 4.0 % 11/02/2023 12:05 PM [facility] % EOSINOPHILS 1.0 % 11/02/2023 12:05 PM [facility] % BASOPHILS 0.0 % 11/02/2023 12:05 PM [facility] NEUTROPHILS ABSOLUTE 4.9 1.7 - 7.0 thou/cu mm 11/02/2023 12:05 PM [facility] LYMPHOCYTES ABSOLUTE 2.1 0.9 - 2.9 thou/cu mm 11/02/2023 12:05 PM [facility] MONOCYTES ABSOLUTE 0.3 <0.9 thou/cu mm 11/02/2023 12:05 PM [facility] EOSINOPHILS ABSOLUTE 0.1 <0.5 thou/cu mm 11/02/2023 12:05 PM CDT [facility] BASOPHILS ABSOLUTE 0.0 <0.3 thou/cu mm 11/02/2023 12:05 PM CDT [facility] Blood BLOOD SPECIMEN / Unknown Butterfly / Unknown 11/02/2023 8:05 AM CDT 11/02/2023 10:00 AM CDT Juaquin Jones MD HEMATOLOGY [facility] [address] [place] [address] * XR DXA BONE DENSITY 2 SITES AXIAL (02/02/2018 3:00 PM CDT) Anatomical Region Laterality Modality Spine, HIPS, HIPL, HIPR Other 02/02/2018 3:41 PM CDT Narrative 02/02/2018 3:44 PM CDT EXAM: XR DXA BONE DENSITY 2 SITES AXIAL INDICATION: Disorder of bone. ??Osteopenia. ??Postmenopausal. TECHNIQUE: Standardized bone density measurements were obtained using the [employer] bone densitometry system. COMPARISON: None. FINDINGS: SPINE: [...] bone density measurements were obtained using the [employer] bone densitometry system. COMPARISON: None. 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 Luo Dentistry - General 01/12/18
--- OUTSIDE RECORDS SUMMARY | 2023-12-03 10:38 | XMS_ITS | Clinical Summary ---
Author Organization [facility] Address [address] [place] [address] Care Team Providers Care Household Refrigeration Mechanic Name Role Phone Elsewhere, Pcp Primary Care Provider Unavailabl e Source Comments Patient records contain information from all sites at [facility]. For routine questions regarding patient records, call [phone] during business hours, M-F 8:00 AM - 5:00 PM Central Time. Record requests for emergency care only can be directed to [phone] at any time.[facility] Allergies Active Allergy Reactions Criticality [...] mg /3 mL nebulizer solutionIndicati ons:Bronchiectas is ([facility]) USE 1 VIAL VIA NEBULIZER TWICE DAILY. USE PRIOR TO SALINE NEBULIZER SOLUTION FOR BRONCHIAL HYGIENE(MUCUS CLEARANCE) 180 mL 11 01/30/2022 Active sodium chloride (HYPERSAL) 7 % nebulizer solutionIndicati ons:Bronchiectas is ([facility]) USE 1 VIAL VIA NEBULIZER TWICE DAILY. [...] How often do you attend chur or mosque services? Never 08/12/2022 Do you belong to any clubs o r organizations such as nondenominational groups, unions, fraternal or athletic groups, or [...] and heating? Not hard at all 08/12/2022 [facility] Occupational Stress Questionnaire Answer [...] 36.1 ??C (97 ??F) 08/17/2022 10:57 AM EMAIL SPECIALIST Respiratory Rate 18 01/09/2022 8:24 AM CDT [...] METABOLIC PANEL, S/P Routine 07/27/2023 11:41 AM EMAIL SPECIALIST BI BREAST SCREENING BILATERAL WITH TOMOSYNTHESIS Routine 02/08/2019 1:03 PM CDT from Last 3 Months or Most Recently Relevant to Health Maintenance Advance Directives For more information, please contact: [phone] * DNR/DNI (Latest Code Status on File) Date Activated Date Inactivated Comments 12/28/2021 12:42 PM 01/09/2022 1:10 PM * DNR/DNI Date Activated Date Inactivated Comments 12/23/2020 8:47 PM 12/25/2020 5:38 PM * Full Code Date Activated Date Inactivated Comments 12/23/2020 8:20 PM 12/23/2020 8:47 PM Question Answer Comments Full Code: Discussed Care Teams Household Refrigeration Mechanic Relationship Specialty Start Date End Date Elsewhere, Pcp PCP - General 12/24/20
--- OUTSIDE RECORDS SUMMARY | 2023-12-03 10:38 | XMS_ITS | Referral Summary ---
Author Organization [facility] Address [address] [place] [address] Care Team Providers Care Fortune Teller Name Role Phone Elsewhere, Pcp Primary Care Provider Unavailabl e Source Comments Patient records contain information from all sites at [facility]. For routine questions regarding patient records, call [phone] during business hours, M-F 8:00 AM - 5:00 PM Central Time. Record requests for emergency care only can be directed to [phone] at any time.[facility] Allergies Active Allergy Reactions Criticality Noted Date [...] mg /3 mL nebulizer solutionIndicati ons:Bronchiectas is ([facility]) USE 1 VIAL VIA NEBULIZER TWICE DAILY. USE PRIOR TO SALINE NEBULIZER SOLUTION FOR BRONCHIAL HYGIENE(MUCUS CLEARANCE) 180 mL 11 01/30/2022 Active sodium chloride (HYPERSAL) 7 % nebulizer solutionIndicati ons:Bronchiectas is ([facility]) USE 1 VIAL VIA NEBULIZER TWICE [...] How often do you attend chur or jew services? Never 08/12/2022 Do you belong to any clubs o r organizations such as scientologist groups, unions, fraternal or athletic groups, or [...] and heating? Not hard at all 08/12/2022 [facility] Occupational Stress Questionnaire Answer Date [...] place to sleep or slept in a assisted (including now)? No 08/12/2022 Nutrition Answer Date [...] 36.1 ??C (97 ??F) 08/17/2022 10:57 AM CENTER MEDICAL AND LAB DIRECTOR Respiratory Rate 18 01/09/2022 8:24 AM CDT [...] METABOLIC PANEL, S/P Routine 07/27/2023 11:41 AM CENTER MEDICAL AND LAB DIRECTOR BI BREAST SCREENING BILATERAL WITH TOMOSYNTHESIS Routine 02/08/2019 1:03 PM CDT from Last 3 Months or Most Recently Relevant to Health Maintenance Advance Directives For more information, please contact: [phone] * DNR/DNI (Latest Code Status on File) Date Activated Date Inactivated Comments 12/28/2021 12:42 PM 01/09/2022 1:10 PM * DNR/DNI Date Activated Date Inactivated Comments 12/23/2020 8:47 PM 12/25/2020 5:38 PM * Full Code Date Activated Date Inactivated Comments 12/23/2020 8:20 PM 12/23/2020 8:47 PM Question Answer Comments Full Code: Discussed Care Teams Fortune Teller Relationship Specialty Start Date End Date Elsewhere, Pcp PCP - General 12/24/20
--- OUTSIDE RECORDS SUMMARY | 2023-12-03 10:39 | XMS_ITS | Clinical Summary ---
Author Organization [facility] Address [address] [place] [address] Care Team Providers Care Cuffer Name Role Phone Basilio Healy MD Primary Care Provider [phone] Source Comments You are receiving this document as you are listed as the primary care provider,follow-up provider, or the patient has been referred to you for consultation.This is in compliance with the Medicare and[facility] Cent[facility]aid EHR Incentive Program,which states Providers who transition their patient to another setting of careor provider of care or refers their patient to another provider of care shouldprovide summary care record for each transition of care or referral. [facility] Allergies Active Allergy Reactions Criticality Noted Date [...] Patient receives drug assistance for Enbrel from [employer] Approved until 06/27/22-jm Problem Noted Date Diagnosed [...] annual mammogram; annual physical exam breast and solution director Chronic anxiety 12/21/2011 Overview: Start sertraline 11/26/11; improved although residual; increase dose from 50mg to 100mg 12/21/2011. Patient discontinued 05/2012. 12/20/2012 start venlafaxine 37.5mg Osteopenia 12/07/2011 Overview: Jig Bore Tool Maker wants patient to be on alendronate indefinitely [...] Type Department Care Team Description 10/27/2023 Notes/Orders [facility] [address] [place] [address] Man Sánchez MD 10/27/2023 Telephone [facility] 3931 Pulmonary Medicine [address] [place] [address] Shara Mitchell MD Hospital / Follow Up 10/26/2023 10:40 AM CDT Ancillary Procedure Radiology PACS [address] [place] [address] Provider, Foreign Images 09/02/2023 Orders Only HIM [...] IIV3 (Trivalent) Demetrice mendoza Highdose, 65+ Yrs (12713) 04/25/2019,03/09/2016,03/30/2014 Influenza IIV4 (Quadrivalent ) 0.5mL (25682) 04/23/2021,04/25/2019,04/19/2018, 016,03/30/2014,04/03/2013,04/15/2012,08/2009,04/15/2009,04/10/2003 Influenza IIV4 (Quadrivalent ) Fluzone, [...] Comments Blood Pressure 135/72 07/18/2019 3:38 PM PHYSICAL THERAPY ASSISTANT Pulse 104 10/22/2022 1:45 PM CDT [...] Info) Description 12/13/2023 1:00 PM CDT Appointment [facility] [address] [place], [place] [id number] Man Sánchez MD [address] [place], [place] [address] 12/14/2023 1:00 PM CDT Appointment [facility] 3931 Pulmonary Lab [address] [place] [address] 12/14/2023 2:00 PM CDT Office Visit Specialty Center 3931 Pulmonary Medicine [address] [place], [place] [address] Shara Mitchell MD [address] [facility] [address] [place], [place] [address] Health Maintenance Due Date Last Done Comments [...] 10/26/2023 10:40 AM CDT LABORATORY REPORT 09/02/2023 DXA BONE DENSITY SPINE/HIP INC VERT FX [...] Foreign Images Provider RAD NON-REPORTAB LES POCT * LABORATORY REPORT (09/02/2023) Interface Provider MD CLANCY/OTHER/AR * DXA Bone Density Spine/Hip Inc Vert [...] not included. Patient Name: Tanner James Densitometer: StrikeIron W Appt Dept/Resource: [facility] Bone Density GRANDA [...] trabecular bone, and is derived from the azumz-cu-jbwoh changes of bone density embedded in the [...] Performed by Real Time PCR CLIA Number [id number] HCV Quant iu/ml <12 IU/ml HP CONVERSION Comment:CLIA Number [id number] HCV Quant Log iu/ml <1.08 Log IU/ml HP CONVERSION Comment: Performed at [facility], [address] [place] [address] ??[id number] CLIA Number [id number] 12/12/2015 11:4 4 AM CDT 12/12/2015 3:01 PM CDT Swapnil Henley MD LAB_1 HP CONVERSION from Last 3 Months or Most Recently Relevant to Health Maintenance Advance Directives Documents on File Type Date Recorded Patient Vegetable Washing Machine Operator Expl dario POLST 02/02/2017 01/05/2017 Care Teams Cuffer Relationship Specialty Start Date End Date Basilio Healy MD [facility] [address] [place] [address] PCP - General Family Practice 10/28/22
--- OUTSIDE RECORDS SUMMARY | 2023-12-03 10:39 | XMS_ITS | Encounter Summary ---
Author Organization [facility] Address [address], [place] [address] Care Team Providers Care Nozzleman Name Role Phone Basilio Healy MD Primary Care Provider [phone] Reason for Visit * Reason Comments Refill Encounter Details Date Type Department Care Team (Late st Contact Info) Description 02/06/2016 Refill [place] [address] [place] [id number] Swapnil Henley MD [address] [place] [phone] Refill Social History Tobacco Use Types Packs/Day Years Used Date Smoking Tobacco: Never Assessed Sex and Gender Information Value Date Recorded Sex Assigned at Not on file Gender Identity Not on file Sexual Orientation Not on file documented as of this encounter Plan of Treatment Upcoming Encounters Date Type Department Care Team (Late st Contact Info) Description 12/13/2023 1:00 PM CDT Appointment [facility] [address] [place] [address] Man Sánchez [place] [address] [place] [address] 12/14/2023 1:00 PM CDT Appointment [facility] 3931 Pulmonary Lab [facility] [place] [address] 12/14/2023 2:00 PM CDT Office Visit Specialty Center 3931 Pulmonary Medicine [address] [place] [address] Shara Mitchell MD [address] [place] [address] documented as of this encounter Visit Diagnoses Not on filedocumented in this encounter Care Teams Nozzleman Relationship Specialty Start Date End Date Basilio Healy MD [facility] [address] [place] [address] PCP - General Family Practice 10/28/22 documented as of this encounter
--- OUTSIDE RECORDS SUMMARY | 2023-12-03 10:39 | XMS_ITS | Encounter Summary ---
Author Organization [facility] Address [address] [place] [address] Care Team Providers Care Carpenters Supervisor Name Role Phone Basilio Healy MD Primary Care Provider [phone] Reason for Visit * (Routine) - Incomplete Specialty Diagnoses / Procedures Referred By Contac t Referred To Contact Procedures Foreign Image(s) CT Angio Chest Provider, Foreign Images [address] [place] [address] Referral ID Status Reason Start Date Expiration Date V isits Requested Visits Authorized [id number] Incomplete 11/02/2023 01/31/2025 1 1 Encounter Details Date Type Department Care Team (Late st Contact Info) Description 10/26/2023 10:40 AM CDT Ancillary Procedure Radiology PACS [address] [place] [address] Provider, Foreign Images [address] [place] [address] Social History Tobacco Use Types Packs/Day Years [...] Info) Description 12/13/2023 1:00 PM CDT Appointment [facility] [address] [place] [address] Man Sánchez MD [address] [place], [place] [address] 12/14/2023 1:00 PM CDT Appointment [facility] [address] [facility] [place] [address] 12/14/2023 2:00 PM CDT Office Visit Specialty Center 3931 Pulmonary Medicine [address] [place] [address] Shara Mitchell MD [address] [facility] [address] [place], [place] [address] documented as of this encounter Procedures Procedure [...] on filedocumented in this encounter Care Teams Carpenters Supervisor Relationship Specialty Start Date End Date Basilio Healy MD [facility] [address] [place] [address] PCP - General Family Practice 10/28/22 documented as of this encounter
--- OUTSIDE RECORDS SUMMARY | 2023-12-03 10:39 | XMS_ITS | Encounter Summary ---
Author Organization [facility] Address [address] [place] [address] Care Team Providers Care Signalman Name Role Phone Basilio Healy MD Primary Care Provider [phone] Encounter Details Date Type Department Care Team (Late st Contact Info) Description 10/27/2023 Notes/Orders [place] [address] [place] [address]. [place], [place] [id number] Man Sánchez MD [address] [place] [phone] Social History Tobacco Use Types Packs/Day Years [...] Info) Description 12/13/2023 1:00 PM CDT Appointment [facility] [address] [place] [address] Man Sánchez MD [address] [place], [place] [address] 12/14/2023 1:00 PM CDT Appointment [facility] 3931 Pulmonary Lab [address] [place] [address] 12/14/2023 2:00 PM CDT Office Visit Specialty Center 3931 Pulmonary Medicine [address] [place] [address] Shara Mitchell MD [address] [facility] [address] [place] [address] documented as of this encounter Visit Diagnoses Not on filedocumented in this encounter Care Teams Signalman Relationship Specialty Start Date End Date Basilio Healy MD [facility] [address] [place] [address] PCP - General Family Practice 10/28/22 documented as of this encounter
--- OUTSIDE RECORDS SUMMARY | 2023-12-03 10:39 | XMS_ITS | Encounter Summary ---
Author Organization [facility] Address [address] [place] [address] Care Team Providers Care Tool Distributor Name Role Phone Basilio Healy MD Primary Care Provider [phone] Reason for Visit * Reason Comments Hospital / Follow Up Encounter Details Date Type Department Care Team (Late st Contact Info) Description 10/27/2023 Telephone [facility] Pulmonary Medicine [address] [place], [place] [id number] Shara Mitchell MD [address] [facility] [address] [place], [place] [id number] Hospital / Follow Up Social History Tobacco [...] email to retrieve all chest films from [facility] in 2023. Frontline, Please contact pt to reschedule. Thank you * Shara Mitchell MD - 10/27/2023 11:28 AM CDT I called and spoke with Dr. Vasquez, who is currently caring for Tanner at [facility]. She was recently admitted for a UTI and improved. She was at a intermediate but developed a fever and hypoxia and returned to the hospital. CT imaging showed infiltrates, chronicity unclear. Pulmonary RNs: She was scheduled to see me tomorrow, October 27, but this appointment will need to be rescheduled. Please see if we can obtain the CT imaging from [facility], and then she will not need a repeat CT prior to her visit. Thanks. * Ame Asencio, RN - 10/27/2023 9:27 AM CDT Incoming call from Dr. Vasquez from [facility]. He states patient is currently admitted and he would like to speak with Dr. Mitchell. He is requesting a call back on his cell phone, . documented in this encounter Plan of Treatment Upcoming Encounters Date Type Department Care Team (Late st Contact Info) Description 12/13/2023 1:00 PM CDT Appointment [place] [address] [place], [place] [address] Man Sánchez MD [facility] [place], [place] [address] 12/14/2023 1:00 PM CDT Appointment [facility] 3931 Pulmonary Lab [address] [place], [place] [address] 12/14/2023 2:00 PM CDT Office Visit Specialty Center 3931 Pulmonary Medicine [address] [place] [address] Shara Mitchell MD [address] [facility] [address] [place] [address] documented as of this encounter Visit Diagnoses Not on filedocumented in this encounter Care Teams Tool Distributor Relationship Specialty Start Date End Date Basilio Healy MD [facility] [address] [place] [address] PCP - General Family Practice 10/28/22 documented as of this encounter
--- OUTSIDE RECORDS SUMMARY | 2023-12-03 10:39 | XMS_ITS | Encounter Summary ---
Author Organization [facility] Address [address] [place] [address] Care Team Providers Care Roadmaster Name Role Phone Basilio Healy MD Primary Care Provider [phone] Encounter Details Date Type Department Care Team (Latest Contact Info) Description 09/02/2023 Orders Only HIM DEPARTMENT Provider, [place] [address] Social History Tobacco Use Types Packs/Day Years [...] Info) Description 12/13/2023 1:00 PM CDT Appointment [facility] [address] [place] [address] Man Sánchez MD [facility] [place] [address] 12/14/2023 1:00 PM CDT Appointment [facility] 3931 Pulmonary Lab [address] [place] [address] 12/14/2023 2:00 PM CDT Office Visit Specialty Center 3931 Pulmonary Medicine [address] [place] [address] Shara Mitchell MD [address] [facility] [address] [place] [address] documented as of this encounter Procedures Procedure Name Priority Date/Time Associated Diagnosis Comments LABORATORY REPORT 09/02/2023 documented in this encounter Results * LABORATORY REPORT (09/02/2023) Interface Provider DUMMY/OTHER/AR documented in this encounter Visit Diagnoses Not on filedocumented in this encounter Care Teams Roadmaster Relationship Specialty Start Date End Date Basilio Healy MD [facility] [address] [place] [address] PCP - General Family Practice 10/28/22 documented as of this encounter
== END 2023-12-03 10:35 | disposition home or self-care (01) ==
LOC: LKVREF 10:35
PROVIDERS: PCP Family Medicine; Visit Provider Family Medicine
DX: R53.83 Other fatigue (principal); I10 Essential (primary) hypertension; Z13.0 Encounter for screening for diseases of the blood and blood-forming organs and certain disorders involving the immune mechanism
CPT/HCPCS: 84443

== ENCOUNTER 2023-12-10 13:17 | Outpatient (CLI) | payer MEDICARE, OTHER, SELFPAY ==
--- OUTSIDE RECORDS SUMMARY | 2023-12-10 13:20 | XMS_ITS | Referral Summary ---
Author Organization [facility] Address [address] [place] [address] Care Team Providers Care Clinical Psychologist Licensed Name Role Phone Elsewhere, Pcp Primary Care Provider Unavailabl e Source Comments Patient records contain information from all sites at [facility]. For routine questions regarding patient records, call [phone] during business hours, M-F 8:00 AM - 5:00 PM Central Time. Record requests for emergency care only can be directed to [phone] at any time.[facility] Allergies Active Allergy Reactions Criticality Noted Date [...] mg /3 mL nebulizer solutionIndicati ons:Bronchiectas is ([facility]) USE 1 VIAL VIA NEBULIZER TWICE DAILY. USE PRIOR TO SALINE NEBULIZER SOLUTION FOR BRONCHIAL HYGIENE(MUCUS CLEARANCE) 180 mL 11 01/30/2022 Active sodium chloride (HYPERSAL) 7 % nebulizer solutionIndicati ons:Bronchiectas is ([facility]) USE 1 VIAL VIA NEBULIZER [...] any clubs o r organizations such as faith groups, unions, fraternal or athletic groups, or [...] and heating? Not hard at all 08/12/2022 [facility] - Occupational Stress Questionnaire Answer [...] 36.1 ??C (97 ??F) 08/17/2022 10:57 AM PASSENGER RATE CLERK Respiratory Rate 18 01/09/2022 8:24 AM [...] METABOLIC PANEL, S/P Routine 07/27/2023 11:41 AM PASSENGER RATE CLERK BI BREAST SCREENING BILATERAL WITH TOMOSYNTHESIS Routine 02/08/2019 1:03 PM CDT from Last 3 Months or Most Recently Relevant to Health Maintenance Advance Directives For more information, please contact: [phone] * DNR/DNI (Latest Code Status on File) Date Activated Date Inactivated Comments 12/28/2021 12:42 PM 01/09/2022 1:10 PM * DNR/DNI Date Activated Date Inactivated Comments 12/23/2020 8:47 PM 12/25/2020 5:38 PM * Full Code Date Activated Date Inactivated Comments 12/23/2020 8:20 PM 12/23/2020 8:47 PM Question Answer Comments Full Code: Discussed Care Teams Clinical Psychologist Licensed Relationship Specialty Start Date End Date Elsewhere, Pcp PCP - General 12/24/20
--- OUTSIDE RECORDS SUMMARY | 2023-12-10 13:20 | XMS_ITS | Clinical Summary ---
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 Patient discontinued 05/2012. 12/20/2012 start venlafaxine 37.5mg Osteopenia 12/07/2011 05/05/2023 Overview: School Traffic Supervisor wants patient to be on alendronate indefinitely [...] 04/21/2010 Overview: HGB 9.6 ON ADMIT TO [facility] 03/2009; ENDOSCOPY REVEALED SHALLOW GASTRIC ULCERATIONS [...] Department Care Team Description 11/12/2023 Lab Requisition [facility] [phone] Luci Meza NP 10/29/2023 Lab Requisition [facility] [phone] Juaquin Jones MD from Last 3 Months [...] Comments Blood Pressure 159/76 07/27/2023 1:14 PM AIRCRAFT LAYOUT WORKER Pulse 52 07/27/2023 1:14 PM AIRCRAFT LAYOUT WORKER Temperature 36.4 ??C (97.6 ??F) 07/01/2023 8:06 AM CS T Respiratory Rate 16 07/09/2023 3:27 PM AIRCRAFT LAYOUT WORKER Oxygen Saturation 97% 07/27/2023 1:14 PM AIRCRAFT LAYOUT WORKER Inhaled Oxygen Concentration - - Weight 80.3 kg (177 lb) 07/27/2023 1:14 PM AIRCRAFT LAYOUT WORKER Height 160 cm (5' 3) 07/27/2023 1:14 PM AIRCRAFT LAYOUT WORKER Body Mass Index 31.35 07/27/2023 1:14 PM AIRCRAFT LAYOUT WORKER Plan of Treatment Health Maintenance Due Date [...] 02/27/2015, 11/26/2011 Medical Devices Implanted Type Area Bottom Liquor Attendant Device Identifier Shelf Expiration Date Model / Serial / Lot Screw Tsrh Og Thin 6.5x50mm - [id number] Implanted:Qty: 3 on 04/28/[address] [facility] N/A: Spine SOFAMOR DANEK [id number]# / / Screw Locking 4x20mm Fine Tip Titnm - [id number] Implanted:Qty: 4 on 04/28/[address] [facility] Ondeego [id number] # / / Screw Thin Crest 6.5x45mm - [id number] Implanted:Qty: 1 on 04/28/2010 at [facility] [id number]# / / Set Screw 3dx - [id number] Implanted:Qty: 4 on 04/28/2010 at [facility] [id number]# / / Cnnctr Tsrh 3dx Sm - [id number] Implanted:Qty: 4 on 04/28/[address] [facility] Medtronic [id number]# / / Rios 3.5cmx5.5mm Pre-Cut - [id number] Implanted:Qty: 2 on 04/28/2010 at [facility] [id number]# / / Kit Infuse Md - [id number] Implanted:Qty: 1 on 04/28/[address] [facility] Spine SOFOR DAN 10/26/2012 [id number]# / / [id number] Filler Bio [id number] - [id number] Implanted:Qty: 1 on 04/28/2010 at [facility] [id number]# / / [id number] Synfix Lr 26mm Implanted:Qty: 1 on 04/28/[address] [facility] Spine FIZZAuy [employer] [id number] S / / [id number] Description:SYNFIX LR 26MM Procedures Procedure Name Priority [...] - 16.0 g/dL 11/16/2023 8:00 AM CDT [facility] MCV 111(H) 80 - 100 fL 11/16/2023 8:00 AM CDT [facility] Blood BLOOD SPECIMEN / Unknown Venipuncture / Unknown 11/16/2023 7:10 AM CDT 11/16/2023 7:54 AM CDT Luci Meza NP HEMATOLOGY Performing Organization Address [facility] Co de Phone Number [facility] [address] [place] [address] * (ABNORMAL) BASIC METABOLIC PANEL (11/16/2023 7:10 AM CDT) Only the most recent of2 resultswithin the time period is included. SODIUM 147(H) 136 - 145 mmol/L 11/16/2023 8:23 AM CDT [facility] POTASSIUM 4.2 3.5 - 5.1 mmol/L 11/16/2023 8:23 AM [facility] CHLORIDE 108(H) 98 - 107 mmol/L 11/16/2023 8:23 AM [facility] CO2,TOTAL 30(H) 22 - 29 mmol/L 11/16/2023 8:23 AM [facility] ANION GAP 9 5 - 18 11/16/2023 8:23 AM [facility] GLUCOSE 86 70 - 99 mg/dL 11/16/2023 8:23 AM [facility] CALCIUM 8.9 8.8 - 10.2 mg/dL 11/16/2023 8:23 AM [facility] BUN 27(H) 8 - 23 mg/dL 11/16/2023 8:23 AM [facility] CREATININE 1.18(H) 0.50 - 0.90 mg/dL 11/16/2023 8:23 AM [facility] BUN/CREAT RATIO 23(H) 10 - 20 8:23 AM [facility] eGFR 48(L) >90 mL/min/1.7 3m2 11/16/2023 8:23 AM [facility] Comment:As of 2021, eG FR [...] 7:54 AM T Luci Meza NP CHEMISTRY [facility] [address] [place] [address] * (ABNORMAL) CBC WITH AUTO DIFFERENTIAL (11/02/2023 8:05 AM T) WHITE BLOOD COUNT 7.4 4.5 - 11.0 thou/cu mm 11/02/2023 12:05 PM [facility] RED BLOOD COUNT 3.79(L) 4.00 - 5.20 mil/cu mm 11/02/2023 12:05 PM [facility] HEMOGLOBIN 12.4 12.0 - 16.0 g/dL 11/02/2023 12:05 PM [facility] HEMATOCRIT 39.9 33.0 - 51.0 % 11/02/2023 12:05 PM [facility] MCV 105(H) 80 - 100 fL 11/02/2023 12:05 PM [facility] MCH 32.7 26.0 - 34.0 pg 11/02/2023 12:05 PM [facility] MCHC 31.1(L) 32.0 - 36.0 g/dL 11/02/2023 12:05 PM [facility] RDW 16.1(H) 11.5 - 15.5 % 11/02/2023 12:05 PM [facility] PLATELET COUNT 148 140 - 440 thou/cu mm 11/02/2023 12:05 PM [facility] MPV 11.0 6.5 - 11.0 fL 11/02/2023 12:05 PM [facility] Blood BLOOD SPECIMEN / Unknown Butterfly / Unknown 11/02/2023 8:05 AM CDT 11/02/2023 10:00 AM CDT Juaquin Jones MD HEMATOLOGY [facility] [address] [place] [address] * (ABNORMAL) RED CELL MORPHOLOGY (11/02/2023 8:05 AM CDT) ELLIPTOCYTES Few 11/02/2023 12:05 PM [facility] RBC COMMENT Present(A) RBC morphology appears normal, RBC morphology within normal limits for newborns. 11/02/2023 12:05 PM [facility] LARGE PLATELETS Present 12:05 PM [facility] Blood BLOOD SPECIMEN / Unknown Butterfly / Unknown 11/02/2023 8:05 AM CDT 11/02/2023 10:00 AM CDT Juaquin Jones MD HEMATOLOGY Performing Organization Address City/[facility]/ZIP Co de Phone Number [facility] [address] [place] [address] * PLATELET ESTIMATE (11/02/2023 8:05 AM CDT) PLATELET ESTIMATE Adequate Adequate, No estimate 11/02/2023 12:05 PM [facility] Blood BLOOD SPECIMEN / Unknown Butterfly / Unknown 11/02/2023 8:05 AM CDT 11/02/2023 10:00 AM CDT Juaquin Jones MD HEMATOLOGY Performing Organization Address [facility] Co de Phone Number [facility] [address] [place] [address] * MANUAL DIFFERENTIAL (11/02/2023 8:05 AM CDT) % NEUTROPHILS 66.0 % 11/02/2023 12:05 PM [facility] % LYMPHOCYTES 29.0 % 11/02/2023 12:05 PM [facility] % MONOCYTES 4.0 % 11/02/2023 12:05 PM [facility] % EOSINOPHILS 1.0 % 11/02/2023 12:05 PM [facility] % BASOPHILS 0.0 % 11/02/2023 12:05 PM [facility] NEUTROPHILS ABSOLUTE 4.9 1.7 - 7.0 thou/cu mm 11/02/2023 12:05 PM [facility] LYMPHOCYTES ABSOLUTE 2.1 0.9 - 2.9 thou/cu mm 11/02/2023 12:05 PM [facility] MONOCYTES ABSOLUTE 0.3 <0.9 thou/cu mm 11/02/2023 12:05 PM [facility] EOSINOPHILS ABSOLUTE 0.1 <0.5 thou/cu mm 11/02/2023 12:05 PM CDT [facility] BASOPHILS ABSOLUTE 0.0 <0.3 thou/cu mm 11/02/2023 12:05 PM CDT [facility] Blood BLOOD SPECIMEN / Unknown Butterfly / Unknown 11/02/2023 8:05 AM CDT 11/02/2023 10:00 AM CDT Juaquin Jones MD HEMATOLOGY [facility] [address] [place] [address] * XR DXA BONE DENSITY 2 SITES AXIAL (02/02/2018 3:00 PM CDT) Anatomical Region Laterality Modality Spine, HIPS, HIPL, HIPR Other 02/02/2018 3:41 PM CDT Narrative 02/02/2018 3:44 PM CDT EXAM: XR DXA BONE DENSITY 2 SITES AXIAL INDICATION: Disorder of bone. ??Osteopenia. ??Postmenopausal. TECHNIQUE: Standardized bone density measurements were obtained using the [employer] bone densitometry system. COMPARISON: None. FINDINGS: SPINE: [...] bone density measurements were obtained using the [employer] bone densitometry system. COMPARISON: None. FINDINGS: SPINE: [...] Documents on File Type Date Recorded Patient Facility Designer Expl anation POLST 04/29/2021 POLST 02/02/2017 1:11 [...] Code Status Discussion: Reviewed Preferences Care Teams Machine Sneller Relationship Specialty Start Date End Date Kyle Healy MD [address] [place] [address] PCP - General Family Practice 07/14/23 Swapnil Henley MD Rheumatology 12/20/12 Marlys Woodruff, RD [address] [place] [address] Registered Dietitian Methane Gas Collection System Operator 07/05/18 Funmi Medina, [place] [address] [place], [place] [id number] Occupational Therapy 05/11/23 Mary Carpio Cardiology - Interventional 01/12/18 DR. Luo Dentistry - General 01/12/18
--- OUTSIDE RECORDS SUMMARY | 2023-12-10 13:20 | XMS_ITS ---
Author Organization [facility] Address [address] [place] [address] Care Team Providers Care Drug Safety Coordinator Name Role Phone Unavailable Unavailable Unavailable Surgery Details Not on file Complications Check Surgery Details section. Procedure Estimated Blood Loss Check Surgery Details section. Procedure Findings Check Surgery Details section. Procedure Specimens Taken Check Surgery Details section.
--- OUTSIDE RECORDS SUMMARY | 2023-12-10 13:20 | XMS_ITS | Clinical Summary ---
Author Organization [facility] Address [address] [place] [address] Care Team Providers Care Track Manager Name Role Phone Elsewhere, Pcp Primary Care Provider Unavailabl e Source Comments Patient records contain information from all sites at [facility]. For routine questions regarding patient records, call [phone] during business hours, M-F 8:00 AM - 5:00 PM Central Time. Record requests for emergency care only can be directed to [phone] at any time.[facility] Allergies Active Allergy Reactions Criticality Noted [...] mg /3 mL nebulizer solutionIndicati ons:Bronchiectas is ([facility]) USE 1 VIAL VIA NEBULIZER TWICE DAILY. USE PRIOR TO SALINE NEBULIZER SOLUTION FOR BRONCHIAL HYGIENE(MUCUS CLEARANCE) 180 mL 11 01/30/2022 Active sodium chloride (HYPERSAL) 7 % nebulizer solutionIndicati ons:Bronchiectas is ([facility]) USE 1 VIAL VIA NEBULIZER TWICE [...] any clubs o r organizations such as catholic groups, unions, fraternal or athletic groups, or [...] and heating? Not hard at all 08/12/2022 [facility] - Occupational Stress Questionnaire Answer [...] 36.1 ??C (97 ??F) 08/17/2022 10:57 AM SALES DIRECTOR Respiratory Rate 18 01/09/2022 8:24 AM [...] METABOLIC PANEL, S/P Routine 07/27/2023 11:41 AM SALES DIRECTOR BI BREAST SCREENING BILATERAL WITH TOMOSYNTHESIS Routine 02/08/2019 1:03 PM CDT from Last 3 Months or Most Recently Relevant to Health Maintenance Advance Directives For more information, please contact: [phone] * DNR/DNI (Latest Code Status on File) Date Activated Date Inactivated Comments 12/28/2021 12:42 PM 01/09/2022 1:10 PM * DNR/DNI Date Activated Date Inactivated Comments 12/23/2020 8:47 PM 12/25/2020 5:38 PM * Full Code Date Activated Date Inactivated Comments 12/23/2020 8:20 PM 12/23/2020 8:47 PM Question Answer Comments Full Code: Discussed Care Teams Track Manager Relationship Specialty Start Date End Date Elsewhere, Pcp PCP - General 12/24/20
--- OUTSIDE RECORDS SUMMARY | 2023-12-10 13:20 | XMS_ITS | Data Portability ---
Author Organization [facility] Address [address] [facility] [address] [place] [address] Assessment No assessment recorded. Plan of Treatment [...] with a nephrect gilmar. Lamont Bravo MD [address] [place] [address],[facility] [address] [place] [address], [phone], [facility] 16:32:18 Recurrent urinary tract infection Active 022 Managed with daily Bactrim Lamont Bravo MD [address] [place] [address],[address], [place], [address], [facility] 16:32:42 Problem Notes None recorded. Procedures Surgical History Date Name Laterality Status Provider Name and Address Organization Details Recorded Time 07/11/19 NEPHRECTOMY, HAND ASSISTED LAPAROSCOPIC (SURG) completed Mary moss [facility] 07/17/2021 09:46:04 Imaging Results None recorded. Procedure Notes None recorded. Medical Equipment None Reported. Allergies Allergen ID Allergen Name Allergen Category Reaction Reaction Severity Criticality Documentation Date Start Date Code Code System Note Provider Name and Address Organization Details Recorded Time 023607 Non-stero idal anti-infl ammatory agent (product) medicatio n Not available Not available Not available 03/20/2021 83742 005 SNOMED Lamont Bravo MD [address] [place] [address],[address], [place], [address], [facility] 1 16:22:56 062363 Levaquin medicatio n Not available Not available Not available 03/20/2021 38091 2 Bree Bravo MD [address] [place] [address],[address], [place], [address], [facility] 1 16:23:24 141415 levofloxa giorgio medicatio n other Not available Not available 08/11/20212021 38673 Bree Bravo MD [address] [place] [address],[address], [place], [address], [facility] 2 16:06:24 941995 terbinafi ne hydrochlo ride medicatio n fever headache Not available Not available Not available 08/11/20212019 11056 8 Bree Bravo MD [address] [place] [address],[address], [place], [address], [facility] 2 16:06:24 Medications Name Sig Start [...] Updated DateTime 03/20/2021 160.02 cm 33.7 kg/m2 14283.55 g Lamont Bravo MD [address] [place] [address],[address], [phone] [place] [address] Urolog 03/20/2021 16:22:47 Date Recorded Body height Body mass index (BMI) Body weight Provider Name and Address Organization Details Last Updated DateTime 08/11/2021 160.02 cm 28.3 kg/m2 06939.78 g Lamont Bravo MD [address] [place] [address],[address] 08/11/2021 16:06:06 Social History Question Answer Notes LastModified by Organizat ion Details LastModified Time Tobacco Smoking Status Never Smoker Lamont Bravo MD [address] [place] [address],[address] [address], [facility] 03/20/2021 16:24:21 What Is Your Level [...] polysaccharide PPV23 04/30/2010 completed Lamont Bravo MD [address] [place] [address],[address], [address], [facility] 08/11/2021 16:07:09 Pneumococcal conjugate PCV 13 01/31/2015 completed Lamont Bravo MD [address] [place] [address],[address], [place], [address], [facility] 08/11/2021 16:07:09 pneumococcal polysaccharide PPV23 03/28/2015 completed Lamont Bravo MD [address] [place] [address],[address], [place], [address], [facility] 08/11/2021 16:07:09 Pneumococcal conjugate PCV 13 03/28/2016 completed Lamont Bravo MD [address] [place] [address],[address], [place], [address], [facility] 08/11/2021 16:07:10 pneumococcal polysaccharide PPV23 03/09/2016 completed Lamont Bravo MD [address] [place] [address],[address], [place], [address], [facility] 08/11/2021 16:07:10 Past Encounters Encounter ID Performer Location Encounter Start Date Encounter Closed Date Diagnosis/Indication Diagnosis SNOMED-CT Code [id number] MD TAMIKA [place] [address] [place] [address] 03/20/2021 16:12:05 03/24/2021 11:06:39 Kidney stone [id number] MD TAMIKA Hudson_[place] 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 Health Concerns Section Related Observation LastModified by Organization Detai ls LastModified Time None Recorded Concern Status LastModified by Organization Details LastModified Time None Recorded Advance Directives Directive None Recorded Payers Encounter Date Sequence Insurance Name Policy Number Policy Oshea Covered Member ID Oshea Member ID Guarantor Name 08/11/2021 1 [place] [employer] [facility] Tanner James [id number] 1 Tanner Stephanie James 08/11/2021 2 [employer] [facility] (MEDICARE SUPPLEMENT) Tanner James [id number] Tanner Brown Erika 03/20/2021 1 [place] [employer] Tanner James [id number] 1 Tanner James 03/20/2021 2 [employer] [place] (MEDICARE SUPPLEMENT) Tanner James [id number] Tanner James Notes Date Note Type Note Provider Name and Address Organization Details Recorded Time 03/20/2021 text/html HPI Notes: New patient here to discuss nephrectomy. 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 She's had recurrent pyelonephritis as well. She had ESWL in 2002. She also has a poor aortic valve. Lamont Bravo MD [address] [place] [address],[address] [place] [address], [address], [facility] 03/20/2021 17:02:40 08/11/2021 text/html HPI Notes: She h as recovered well from surgery. 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 Lamont Bravo MD [address] [place] [address],[address], [place], [address], [facility] 08/11/2021 16:37:50 OBGyn Episode No OBEpisode recorded.
--- OUTSIDE RECORDS SUMMARY | 2023-12-10 13:21 | XMS_ITS | Encounter Summary ---
Author Organization [facility] Address [address] [place] [address] Care Team Providers Care Founder And Ceo Name Role Phone Basilio Healy MD Primary Care Provider [phone] Encounter Details Date Type Department Care Team (Late st Contact Info) Description 10/27/2023 Notes/Orders [place] [address] [place] [address]. [place], [place] [phone] Man Sánchez MD [address] [place] [address] [phone] Social History Tobacco Use Types Packs/Day Years [...] Info) Description 12/13/2023 1:00 PM CDT Appointment [facility] [address] [place] [address] Man Sánchez MD [address] [place], [place] [address] 12/14/2023 1:00 PM CDT Appointment [facility] 3931 Pulmonary Lab 39[address] [place] [address] 12/14/2023 2:00 PM CDT Office Visit [facility] 3931 Pulmonary Medicine [address]31 [place] [address] Shara Mitchell MD [address] [facility] [address] [place] [address] documented as of this encounter Visit Diagnoses Not on filedocumented in this encounter Care Teams Founder And Ceo Relationship Specialty Start Date End Date Basilio Healy MD [facility] [address] [place] [address] PCP - General Family Practice 10/28/22 documented as of this encounter
--- OUTSIDE RECORDS SUMMARY | 2023-12-10 13:21 | XMS_ITS | Encounter Summary ---
Author Organization [facility] Address [address] [place] [address] Care Team Providers Care Connection Worker Name Role Phone Basilio Healy MD Primary Care Provider [phone] Encounter Details Date Type Department Care Team (Latest Contact Info) Description 09/02/2023 Orders Only HIM DEPARTMENT Provider, [place] [address] Social History Tobacco Use Types Packs/Day Years [...] Info) Description 12/13/2023 1:[address] [facility] [address] [place] [address] Man Sánchez MD [facility] [place] [address] 12/14/2023 1:00 PM CDT Appointment [facility] 3931 Pulmonary Lab [address]31 [place] [address] 12/14/2023 2:00 PM CDT Office Visit [facility]ty [facility] 3931 Pulmonary Medicine 3931 [place] [address] Shara Mitchell MD [address]31 [facility] [address] [place] [address] documented as of this encounter Procedures Procedure Name Priority Date/Time Associated Diagnosis Comments LABORATORY REPORT 09/02/2023 documented in this encounter Results * LABORATORY REPORT (09/02/2023) Interface Provider DUMMY/OTHER/AR documented in this encounter Visit Diagnoses Not on filedocumented in this encounter Care Teams Connection Worker Relationship Specialty Start Date End Date Basilio Healy MD [facility] [address] [place] [address] PCP - General Family Practice 10/28/22 documented as of this encounter
--- OUTSIDE RECORDS SUMMARY | 2023-12-10 13:21 | XMS_ITS | Encounter Summary ---
Author Organization [facility] Address [address] [place] [address] Care Team Providers Care Body Trimmer Name Role Phone Basilio Healy MD Primary Care Provider [phone] Reason for Visit * Reason Comments Hospital / Follow Up Encounter Details Date Type Department Care Team (Late st Contact Info) Description 10/27/2023 Telephone [facility]ty [facility] 3931 Pulmonary Medicine [address] [place], [place] [phone] Shara Mitchell MD 3931 [facility] [address] [place], [place] [phone] Hospital / Follow Up Social History Tobacco [...] email to retrieve all chest films from [facility] in 2023. [facility], Please contact pt to reschedule. Thank you * Shara Mitchell MD - 10/27/2023 11:28 AM CDT I called and spoke with Dr. Vasquez, who is currently caring for Tanner at [facility]. She was recently admitted for a UTI and improved. She was at a shelter but developed a fever and hypoxia and returned to the hospital. CT imaging showed infiltrates, chronicity unclear. Pulmonary RNs: She was scheduled to see me tomorrow, October 27, but this appointment will need to be rescheduled. Please see if we can obtain the CT imaging from [facility], and then she will not need a repeat CT prior to her visit. Thanks. * Ame Asencio, RN - 10/27/2023 9:27 AM CDT Incoming call from Dr. Vasquez from [facility]. He states patient is currently admitted and he would like to speak with Dr. Mitchell. He is requesting a call back on his cell phone, . documented in this encounter Plan of Treatment Upcoming Encounters Date Type Department Care Team (Late st Contact Info) Description 12/13/2023 1:00 PM CDT Appointment [facility] [address] [place], [place] [address] Man Sánchez MD [facility] [place], [place] [address] 12/14/2023 1:00 PM CDT Appointment [facility] 3931 Pulmonary Lab [address]31 [place], [place] [address] 12/14/2023 2:00 PM CDT Office Visit [facility]ty Center 3931 Pulmonary Medicine [address] [place] [address] Shara Mitchell MD [address] [facility] [address] [place] [address] documented as of this encounter Visit Diagnoses Not on filedocumented in this encounter Care Teams Body Trimmer Relationship Specialty Start Date End Date Basilio Healy MD [facility] [address] [place] [address] PCP - General Family Practice 10/28/22 documented as of this encounter
--- OUTSIDE RECORDS SUMMARY | 2023-12-10 13:21 | XMS_ITS | Clinical Summary ---
Author Organization [facility] Address [address] [place] [address] Care Team Providers Care Dough Raiser Name Role Phone Basilio Healy MD Primary Care Provider [phone] Source Comments You are receiving this document as you are listed as the primary care provider,follow-up provider, or the patient has been referred to you for consultation.This is in compliance with the Medicare and[facility] Cent[facility] EHR Incentive Program,which states Providers who transition their patient to another setting of careor provider of care or refers their patient to another provider of care shouldprovide summary care record for each transition of care or referral. [employer] Allergies Active Allergy Reactions Criticality Noted Date [...] Patient receives drug assistance for Enbrel from [employer]. 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 Patient discontinued 05/2012. 12/20/2012 start venlafaxine 37.5mg Osteopenia 12/07/2011 Overview: Certified Personal Trainer wants patient to be on alendronate indefinitely [...] 04/21/2010 Overview: HGB 9.6 ON ADMIT TO [facility] 03/2009; ENDOSCOPY REVEALED SHALLOW GASTRIC ULCERATIONS [...] Type Department Care Team Description 10/27/2023 Notes/Orders [facility] 3800 Rheumatology [address]00 [place] [address] Man Sánchez MD 10/27/2023 Telephone [facility]ty Center 3931 Pulmonary Medicine [address]31 [place] [address] Shara Mitchell MD Hospital / Follow Up 10/26/2023 10:40 AM CDT Ancillary Procedure Radiology PACS [address] [place] [address] Provider, Foreign Images from Last 3 Months Immunizations Name Administration Dates Next Due Flu Vac (3+ yrs) 04/03/2013, 2,04/30/2010, 009,04/10/2003 Flu Vac Preserv Free (3+yrs) 04/30/2010,04/15/20 09 HepA Adult (19+ yrs) 10/20/2004,03/07/2004 HepA Ped/Adol (1-18 yrs) 10/20/2004 HepA, Pediatric (DO NOT USE; for MIIC only) 10/20/2004 IPV (Polio) 03/07/2004 Influenza (Fluad) 04/19/2018 Influenza IIV3 (Trivalent) Demetrice mendoza Highdose, 65+ Yrs (72315) 04/25/2019,03/09/2016,03/30/2014 Influenza IIV4 (Quadrivalent ) 0.5mL (98317) 04/23/2021,04/25/2019,04/19/2018, 016,03/30/2014,04/03/2013,04/15/2012,08/2009,04/15/2009,04/10/2003 Influenza IIV4 (Quadrivalent ) Fluzorebecca, 65+ Yrs 05/04/2022 OPV, Trivalent (Orimune or [...] Comments Blood Pressure 135/72 07/18/2019 3:38 PM COMPUTATIONAL MATHEMATICIAN Pulse 104 10/22/2022 1:45 PM CDT Temperature [...] Info) Description 12/13/2023 1:00 PM CDT Appointment [facility] [address] [place], [place] [address] Man Sánchez MD [address] [place], [place] [address] 12/14/2023 1:00 PM CDT Appointment [facility] 3931 Pulmonary Lab [address] [place] [address] 12/14/2023 2:00 PM CDT Office Visit Specialty Center 3931 Pulmonary Medicine [address] [place] [address] [phone] Shara Mitchell MD 3931 [facility] [address] [place] [address] Health Maintenance Due Date Last Done Comments [...] ANGIO CHEST Routine 10/26/2023 10:40 AM CDT DXA BONE DENSITY SPINE/HIP INC VERT FX [...] Images Provider RAD NON-REPORTAB LES POCT * DXA Bone Density Spine/Hip Inc Vert [...] not included. Patient Name: Tanner James Densitometer: [employer] W Appt Dept/Resource: Granda Bone Density GRANDA [...] (Femoral neck) N/A N/A N/A N/A Forearm (06/30) (Not Scanned) N/A N/A N/A N/A ??*N/A [...] trabecular bone, and is derived from the [id number] changes of bone density embedded in the [...] Performed by Real Time PCR CLIA Number [id number] HCV Quant iu/ml <12 IU/ml HP CONVERSION Comment:CLIA Number [id number] HCV Quant Log iu/ml <1.08 Log IU/ml HP CONVERSION Comment: Performed at [facility] [place], [address] [place] [id number] CLIA Number [id number] 12/12/2015 11:4 4 AM CDT 12/12/2015 3:01 PM CDT Swapnil Henley MD LAB_1 HP CONVERSION from Last 3 Months or Most Recently Relevant to Health Maintenance Advance Directives Documents on File Type Date Recorded Patient Receiving Clerk Expl dario POLST 02/02/2017 01/05/2017 Care Teams Dough Raiser Relationship Specialty Start Date End Date Basilio Healy MD [facility] [address] [place] [address] PCP - General Family Practice 10/28/22
--- OUTSIDE RECORDS SUMMARY | 2023-12-10 13:21 | XMS_ITS | Encounter Summary ---
Author Organization [facility] Address [address] [place] [address] Care Team Providers Care Echo Vascular Tech Name Role Phone Basilio Healy MD Primary Care Provider [phone] Reason for Visit * (Routine) - Incomplete Specialty Diagnoses / Procedures Referred By Contac t Referred To Contact Procedures Foreign Image(s) CT Angio Chest Provider, Foreign Images [address] [place] [address] Referral ID Status Reason Start Date Expiration Date V isits Requested Visits Authorized [id number] Incomplete 11/02/2023 01/31/2025 1 1 Encounter Details Date Type Department Care Team (Late st Contact Info) Description 10/26/2023 10:40 AM CDT Ancillary Procedure Radiology PACS [address] [place] [address] Provider, Foreign Images [address] [place] [address] Social History Tobacco Use Types Packs/Day Years [...] Info) Description 12/13/2023 1:00 PM CDT Appointment [facility] [address] [place] [address] Man Sánchez MD [address] [place], [place] [address] 12/14/2023 1:00 PM CDT Appointment [facility] 3931 Pulmonary Lab [address] [facility] [place] [address] 12/14/2023 2:00 PM CDT Office Visit Specialty Center 3931 Pulmonary Medicine [address] [place] [address] Shara Mitchell MD 3931 [facility] [address] [place], [place] [address] documented as of this encounter Procedures Procedure [...] on filedocumented in this encounter Care Teams Echo Vascular Tech Relationship Specialty Start Date End Date Basilio Healy MD [facility] [address] [place] [address] PCP - General Family Practice 10/28/22 documented as of this encounter
--- OUTSIDE RECORDS SUMMARY | 2023-12-10 13:21 | XMS_ITS | Encounter Summary ---
Author Organization [facility] Address [address] [place] [address] Care Team Providers Care Information Lead Name Role Phone Basilio Healy MD Primary Care Provider [phone] Reason for Visit * Reason Comments Refill Encounter Details Date Type Department Care Team (Late st Contact Info) Description 02/06/2016 Refill [place] [address] [place] [id number] Swapnil Henley MD [address] [place] [address] [phone] Refill Social History Tobacco Use Types Packs/Day Years Used Date Smoking Tobacco: Never Assessed Sex and Gender Information Value Date Recorded Sex Assigned at Not on file Gender Identity Not on file Sexual Orientation Not on file documented as of this encounter Plan of Treatment Upcoming Encounters Date Type Department Care Team (Late st Contact Info) Description 12/13/2023 1:00 PM CDT Appointment [facility] [address] [place] [address] Man Sán[place] [address] [place] [address] 12/14/2023 1:00 PM CDT Appointment [facility] 3931 Pulmonary Lab [facility] [place] [address] 12/14/2023 2:00 PM CDT Office Visit [facility]ty Center 3931 Pulmonary Medicine [address] [place] [address] Shara Mitchell MD [address] [place] [address] [place] [address] documented as of this encounter Visit Diagnoses Not on filedocumented in this encounter Care Teams Information Lead Relationship Specialty Start Date End Date Basilio Healy MD [facility] [address] [place] [address] PCP - General Family Practice 10/28/22 documented as of this encounter
== END 2023-12-10 13:18 | disposition home or self-care (01) ==
LOC: WOUND 13:17
PROVIDERS: PCP Family Medicine; Visit Provider Nurse Practitioner Family
DX: L89.894 Pressure ulcer of other site, stage 4 (principal)
CPT/HCPCS: 11042

== ENCOUNTER 2023-12-24 13:16 | Outpatient (CLI) | payer MEDICARE, OTHER, SELFPAY | END 2023-12-24 13:17 | disposition home or self-care (01) | LOC: WOUND 13:16 | PROVIDERS: PCP Family Medicine; Visit Provider Nurse Practitioner Family | DX: L89.894 Pressure ulcer of other site, stage 4 (principal); M62.81 Muscle weakness (generalized); D84.821 Immunodeficiency due to drugs | CPT/HCPCS: 11042 ==

== ENCOUNTER 2024-01-12 11:22 | Outpatient (CLI) | payer MEDICARE, OTHER, SELFPAY ==
--- OUTSIDE RECORDS SUMMARY | 2024-01-15 02:44 | XMS_ITS | Encounter Summary ---
[facility] [address], [place] [address] Care Team Providers Care Admissions Manager Rn Name Role Phone Basilio Healy MD Primary Care Provider [phone] Reason for Visit * Reason Comments Infusion * Infusion Therapy Plan (Routine) - Authorized Specialty Diagnoses / Procedures Referred By Contac t Referred To Contact Rheumatology Diagnoses Age-related osteoporosis without current pathological fracture (HRC) Man Sánchez MD [address] [place] [address] [facility] [address] [place] [address] Referral ID Status Reason Start Date Expiration Date V isits Requested Visits Authorized [id number] Authorized 01/07/2023 04/07/2024 [id number] Encounter Details Date Type Department Care Team (Latest Contact Info) Description 12/20/2023 9:17 AM CDT - 12/20/2023 11:59 PM CDT Hospital Encounter [facility] [address] [place] [address] Alycia Sosa MD [address] [place] [address] [phone] Age-related osteoporosis without current pathological fracture (HRC) [...] Info) Description 04/17/2024 12:00 PM CDT Appointment [facility] [address] [place] [address] Man Sánchez MD [address] [place] [address] documented as of this encounter Visit Diagnoses [...] mg documented in this encounter Care Teams Admissions Manager Rn Relationship Specialty Start Date End Date Basilio Healy MD [facility] [address] [place] [address] PCP - General Family Practice 10/28/22 documented as of this encounter
--- OUTSIDE RECORDS SUMMARY | 2024-01-15 02:44 | XMS_ITS | Clinical Summary ---
Author Organization [facility] Address [address] [place] [address] Care Team Providers Care Transportation Associate Name Role Phone Basilio Healy MD Primary Care Provider [phone] Source Comments You are receiving this document as you are listed as the primary care provider,follow-up provider, or the patient has been referred to you for consultation.This is in compliance with the Medicare and[facility] Hospital[facility] EHR Incentive Program,which states Providers who transition their patient to another setting of careor provider of care or refers their patient to another provider of care shouldprovide summary care record for each transition of care or referral. LOFTY Allergies Active Allergy Reactions Criticality Noted Date [...] Patient receives drug assistance for Enbrel from [employer]. 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 Patient discontinued 05/2012. 12/20/2012 start venlafaxine 37.5mg Osteopenia 12/07/2011 Overview: Precision Lathe Operator wants patient to be on alendronate [...] 04/21/2010 Overview: HGB 9.6 ON ADMIT TO [facility] 03/2009; ENDOSCOPY REVEALED SHALLOW GASTRIC ULCERATIONS [...] 12/20/2023 11:59 PM CDT Hospital Encounter [facility] [address] [place] [address] Alycia Sosa MD Age-related osteoporosis without current pathological fracture (HRC) (Primary Dx) 12/14/2023 2:00 PM CDT [facility] Visit [facility] [address] [place] [address] [place] [address] Shara Mitchell MD Lung infiltrate (Primary Dx); Bronchiectasis, uncomplicated (HRC) 12/14/2023 12:47 PM CDT - 12/14/2023 11:59 PM CDT Hospital Encounter [facility] Pul[facility] Lab [address] [place] [address] [place] [address] Bronchiectasis, uncomplicated (HRC) (Primary Dx) Discharge Disposition: Home 12/14/2023 Telephone [facility] [address] [place] [address] Man Sánchez MD IV,THERAPY 12/13/2023 3:10 PM CDT Lab Visit [facility] [address] [place] [address] Rheumatoid arthritis involving multiple joints (HRC); High risk medication use 12/13/2023 1:00 PM CDT Office Visit [facility] [address] [place] [address] Man Sánchez MD Rheumatoid arthritis involving multiple joints (HRC) (Primary Dx); High risk medication use; Primary osteoarthritis of both knees; Current chronic use of systemic steroids; Age related osteoporosis, unspecified pathological fracture presence (HRC) 10/27/2023 Notes/Orders [facility] [address] Rheumatology [address] [facility] [place] [address] Man Sánchez MD 10/27/2023 Telephone [facility] Pulmonary Medicine [address] [place] [address] Shara Mitchell MD Hospital / Follow Up 10/26/2023 10:40 AM CDT Ancillary Procedure Radiology PACS [address] [place] [address] Provider, Foreign Images from Last 3 Months Immunizations Name Administration Dates Next Due Flu Vac (3+ yrs) 04/03/2013, 2,04/30/2010, 009,04/10/2003 Flu Vac Preserv Free (3+yrs) 04/30/2010,04/15/20 09 HepA Adult (19+ yrs) 10/20/2004,03/07/2004 HepA Ped/Adol (1-18 yrs) 10/20/2004 HepA, Pediatric (DO NOT USE; for MIIC only) 10/20/2004 IPV (Polio) 03/07/2004 Influenza (Fluad) 04/19/2018 Influenza IIV3 (Trivalent) F luzone Highdose, 65+ Yrs (38234) 04/25/2019,03/09/2016,03/30/2014 Influenza IIV4 (Quadrivalent ) 0.5mL (19533) 04/23/2021,04/25/2019,04/19/2018, 016,03/30/2014,04/03/2013,04/15/2012,08/2009,04/15/2009,04/10/2003 Influenza IIV4 (Quadrivalent ) Fluzone, [...] Info) Description 04/17/2024 12:00 PM CDT Appointment [facility] [address] [place], [place] [phone] Man Sánchez MD [address] [place], [place] [phone] Health Maintenance Due Date Last Done Comments [...] - 0.5 mg/dL 12/13/2023 5:21 PM CDT [facility] Blood Venipuncture / Unknown 12/13/2023 1:56 PM CDT 12/13/2023 1:56 PM CDT Man Sánchez MD LAB_1 [facility] [address] [place] [address], [facility] * Sedimentation Rate (ESR) (12/13/2023 1:56 PM CDT) Sedimentation Rate 2 0 - 20 mm/hr 12/13/2023 2:32 PM CDT [facility] Blood Venipuncture / Unknown 12/13/2023 1:56 PM CDT 12/13/2023 1:56 PM CDT Man Sánchez MD LAB_1 Performing Organization Address [facility] Co de Phone Number [facility] [address] [place] [address] * Pulmonary Function Test - Complete (12/13/2023 8:05 AM CDT) 12/13/2023 8:05 AM CDT Shara Mitchell MD PN PFT ORDERABLES Performing Organization Address [facility] Co de Phone Number PN MAMTA * Foreign Image(s) CT Angio Chest (10/26/2023 10:40 AM CDT) Narrative POCT - 11/02/2023 10:36 AM CDT These outside images have been uploaded into PACS. If the results were provided, they will be located in the patient's chart under the Media or Imaging tab. Foreign Images Provider RAD NON-REPORTAB LES Performing Organization Address City/[facility] Co de Phone Number POCT * DXA [...] not included. Patient Name: Tanner James Densitometer: Lexara W Appt Dept/Resource: [facility] Bone Density GRANDA [...] trabecular bone, and is derived from the [id number] changes of bone density embedded in the [...] Performed by Real Time PCR CLIA Number [id number] HCV Quant iu/ml <12 IU/ml HP CONVERSION Comment:CLIA Number [id number] HCV Quant Log iu/ml <1.08 Log IU/ml HP CONVERSION Comment: Performed at [facility], [address] [place] [address] [place] [address] [place] Number [id number] 12/12/2015 11:4 4 AM CDT 12/12/2015 3:01 PM CDT Swapnil Henley MD LAB_1 HP CONVERSION from Last 3 Months or Most Recently Relevant to Health Maintenance Advance Directives Documents on File Type Date Recorded 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
--- OUTSIDE RECORDS SUMMARY | 2024-01-15 02:44 | XMS_ITS | Clinical Summary ---
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 Shoulder impingement 04/03/2013 017 Chronic anxiety 12/21/2011 [...] 04/21/2010 Overview: HGB 9.6 ON ADMIT TO [facility] 03/2009; ENDOSCOPY REVEALED SHALLOW GASTRIC ULCERATIONS WITH [...] Department Care Team Description 11/12/2023 Lab Requisition [facility] [phone] Luci Meza NP 10/29/2023 Lab Requisition [facility] [phone] Juaquin Jones MD from Last 3 Months [...] Comments Blood Pressure 159/76 07/27/2023 1:14 PM [employer] FORCES MEDICAL SERGEANT Pulse 52 07/27/2023 1:14 PM [employer]ICAL [employer]GEANT Temperature 36.4 ??C (97.6 ??F) 07/01/2023 8:06 AM CS T Respiratory Rate 16 07/09/2023 3:27 PM [employer]ICAL [employer]GEANT Oxygen Saturation 97% 07/27/2023 1:14 PM [employer] MEDICAL SERGEANT Inhaled Oxygen Concentration - - Weight 80.3 kg (177 lb) 07/27/2023 1:14 PM [employer]ICAL SERGEANT Height 160 cm (5' 3) 07/27/2023 1:14 PM [employer] MEDICAL SERGEANT Body Mass Index 31.35 07/27/2023 1:14 PM [employer]ICAL SERGEANT Plan of Treatment Health Maintenance Due Date [...] 02/27/2015, 11/26/2011 Medical Devices Implanted Type Area Winter Intern Device Identifier Shelf Expiration Date Model / Serial / Lot Screw Tsrh Og Thin 6.5x50mm - [id number] Implanted:Qty: 3 on 04/28/2010 at [facility] N/A: Spine [employer]ANE[employer] [id number]# / / Screw Locking 4x20mm Fine Tip Titnm - [id number] Implanted:Qty: 4 on 04/28/2010 at [facility] [employer] [id number] # / / Screw Thin Crest 6.5x45mm - [id number] Implanted:Qty: 1 on 04/28/2010 at [facility] [id number]# / / Set Screw 3dx - [id number] Implanted:Qty: 4 on 04/28/2010 at [facility] [id number]# / / Cnnctr Tsrh 3dx Sm - [id number] Implanted:Qty: 4 on 04/28/2010 at [facility] Medtronic [id number]# / / Rios 3.5cmx5.5mm Pre-Cut - [id number] Implanted:Qty: 2 on 04/28/2010 at [facility] [id number]# / / Kit Infuse Md - [id number] Implanted:Qty: 1 on 04/28/2010 at [facility] Spine SOFOR DAN 10/26/2012 [id number]# / / [id number] Filler Bio [id number] 5 - [id number] Implanted:Qty: 1 on 04/28/2010 at [facility] [id number]# / / [id number] Synfix Lr 26mm Implanted:Qty: 1 on 04/28/2010 at [facility] Spine [employer] [id number] S / / [id number] Description:SYNFIX LR 26MM Procedures Procedure Name Priority [...] - 16.0 g/dL 11/16/2023 8:00 AM CDT [facility] MCV 111(H) 80 - 100 fL 11/16/2023 8:00 AM CDT [facility] Blood BLOOD SPECIMEN / Unknown Venipuncture / Unknown 11/16/2023 7:10 AM CDT 11/16/2023 7:54 AM CDT Luci Meza NP HEMATOLOGY Performing Organization Address [facility] Co de Phone Number [facility] [address] [place] [address] * (ABNORMAL) BASIC METABOLIC PANEL (11/16/2023 7:10 AM CDT) Only the most recent of2 resultswithin the time period is included. SODIUM 147(H) 136 - 145 mmol/L 11/16/2023 8:23 AM CDT [facility] POTASSIUM 4.2 3.5 - 5.1 mmol/L 11/16/2023 8:23 AM [facility] CHLORIDE 108(H) 98 - 107 mmol/L 11/16/2023 8:23 AM [facility] CO2,TOTAL 30(H) 22 - 29 mmol/L 11/16/2023 8:23 AM [facility] ANION GAP 9 5 - 18 11/16/2023 8:23 AM [facility] GLUCOSE 86 70 - 99 mg/dL 11/16/2023 8:23 AM [facility] CALCIUM 8.9 8.8 - 10.2 mg/dL 11/16/2023 8:23 AM [facility] BUN 27(H) 8 - 23 mg/dL 11/16/2023 8:23 AM [facility] CREATININE 1.18(H) 0.50 - 0.90 mg/dL 11/16/2023 8:23 AM [facility] BUN/CREAT RATIO 23(H) 10 - 20 8:23 AM [facility] eGFR 48(L) >90 mL/min/1.7 3m2 11/16/2023 8:23 AM [facility] Comment:As of 2021, eG FR [...] 7:54 AM T Luci Meza NP CHEMISTRY [facility] [address] [place] [address] * (ABNORMAL) CBC WITH AUTO DIFFERENTIAL (11/02/2023 8:05 AM T) WHITE BLOOD COUNT 7.4 4.5 - 11.0 thou/cu mm 11/02/2023 12:05 PM [facility] RED BLOOD COUNT 3.79(L) 4.00 - 5.20 mil/cu mm 11/02/2023 12:05 PM [facility] HEMOGLOBIN 12.4 12.0 - 16.0 g/dL 11/02/2023 12:05 PM [facility] HEMATOCRIT 39.9 33.0 - 51.0 % 11/02/2023 12:05 PM [facility] MCV 105(H) 80 - 100 fL 11/02/2023 12:05 PM [facility] MCH 32.7 26.0 - 34.0 pg 11/02/2023 12:05 PM [facility] MCHC 31.1(L) 32.0 - 36.0 g/dL 11/02/2023 12:05 PM [facility] RDW 16.1(H) 11.5 - 15.5 % 11/02/2023 12:05 PM [facility] PLATELET COUNT 148 140 - 440 thou/cu mm 11/02/2023 12:05 PM [facility] MPV 11.0 6.5 - 11.0 fL 11/02/2023 12:05 PM [facility] Blood BLOOD SPECIMEN / Unknown Butterfly / Unknown 11/02/2023 8:05 AM CDT 11/02/2023 10:00 AM CDT Juaquin Jones MD HEMATOLOGY [facility] [address] [place] [address] * (ABNORMAL) RED CELL MORPHOLOGY (11/02/2023 8:05 AM CDT) ELLIPTOCYTES Few 11/02/2023 12:05 PM [facility] RBC COMMENT Present(A) RBC morphology appears normal, RBC morphology within normal limits for newborns. 11/02/2023 12:05 PM [facility] LARGE PLATELETS Present 12:05 PM [facility] Blood BLOOD SPECIMEN / Unknown Butterfly / Unknown 11/02/2023 8:05 AM CDT 11/02/2023 10:00 AM CDT Juaquin Jones MD HEMATOLOGY Performing Organization Address City/[facility]/ZIP Co de Phone Number [facility] [address] [place] [address] * PLATELET ESTIMATE (11/02/2023 8:05 AM CDT) PLATELET ESTIMATE Adequate Adequate, No estimate 11/02/2023 12:05 PM [facility] Blood BLOOD SPECIMEN / Unknown Butterfly / Unknown 11/02/2023 8:05 AM CDT 11/02/2023 10:00 AM CDT Juaquin Jones MD HEMATOLOGY Performing Organization Address [facility] Co de Phone Number [facility] [address] [place] [address] * MANUAL DIFFERENTIAL (11/02/2023 8:05 AM CDT) % NEUTROPHILS 66.0 % 11/02/2023 12:05 PM [facility] % LYMPHOCYTES 29.0 % 11/02/2023 12:05 PM [facility] % MONOCYTES 4.0 % 11/02/2023 12:05 PM [facility] % EOSINOPHILS 1.0 % 11/02/2023 12:05 PM [facility] % BASOPHILS 0.0 % 11/02/2023 12:05 PM [facility] NEUTROPHILS ABSOLUTE 4.9 1.7 - 7.0 thou/cu mm 11/02/2023 12:05 PM [facility] LYMPHOCYTES ABSOLUTE 2.1 0.9 - 2.9 thou/cu mm 11/02/2023 12:05 PM [facility] MONOCYTES ABSOLUTE 0.3 <0.9 thou/cu mm 11/02/2023 12:05 PM [facility] EOSINOPHILS ABSOLUTE 0.1 <0.5 thou/cu mm 11/02/2023 12:05 PM CDT [facility] BASOPHILS ABSOLUTE 0.0 <0.3 thou/cu mm 11/02/2023 12:05 PM CDT [facility] Blood BLOOD SPECIMEN / Unknown Butterfly / Unknown 11/02/2023 8:05 AM CDT 11/02/2023 10:00 AM CDT Juaquin Jones MD HEMATOLOGY [facility] [address] [place] [address] * XR DXA BONE DENSITY 2 SITES AXIAL (02/02/2018 3:00 PM CDT) Anatomical Region Laterality Modality Spine, HIPS, HIPL, HIPR Other 02/02/2018 3:41 PM CDT Narrative 02/02/2018 3:44 PM CDT EXAM: XR DXA BONE DENSITY 2 SITES AXIAL INDICATION: Disorder of bone. ??Osteopenia. ??Postmenopausal. TECHNIQUE: Standardized bone density measurements were obtained using the [facility]/[employer] bone densitometry system. COMPARISON: None. FINDINGS: SPINE: [...] bone density measurements were obtained using the [employer] bone densitometry system. COMPARISON: None. 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 Luo Dentistry - General 01/12/18"
--- OUTSIDE RECORDS SUMMARY | 2024-01-15 02:44 | XMS_ITS | Data Portability ---
Author Organization [facility], [facility] Address [address] [facility] [address] [place] [address] Assessment No assessment recorded. Plan of Treatment [...] with a nephrect gilmar. Lamont Bravo MD [address] [place] [address],[facility] [address] [place] [address], [phone], [facility] 16:32:18 Recurrent urinary tract infection Active 022 Managed with daily Bactrim Lamont Bravo MD [address] [place] [address],[address], [address], [facility] 16:32:42 Problem Notes None recorded. Procedures Surgical History Date Name Laterality Status Provider Name and Address Organization Details Recorded Time 07/11/19 22 NEPHRECTOMY, HAND ASSISTED LAPAROSCOPIC (SURG) completed Mary moss [facility] 07/17/2021 09:46:04 Imaging Results None recorded. Procedure Notes None recorded. Medical Equipment None Reported. Allergies Allergen ID Allergen Name Allergen Category Reaction Reaction Severity Criticality Documentation Date Start Date Code Code System Note Provider Name and Address Organization Details Recorded Time 312282 Non-stero idal anti-infl ammatory agent (product) medicatio n Not available Not available Not available 03/20/2021 73788 005 SNOMED Lamont Bravo MD [address] [place] [address],[address], [place], [address], [facility] 1 16:22:56 [id number] Levaquin medicatio n Not available Not available Not available 03/20/2021 16677 2 Bree Bravo MD [address] [place] [address],[address], [place], [address], [facility] 1 16:23:24 525310 levofloxa giorgio medicatio n other Not available Not available 08/11/20212021 63421 Bree Bravo MD [address] [place] [address],[address], [place], [address], [facility] 2 16:06:24 [id number] terbinafi ne hydrochlo ride medicatio n fever headache Not available Not available Not available 08/11/20212019 31323 8 Bree Bravo MD [address] [place] [address],[address], [place], [address], [facility] 2 16:06:24 Medications Name Sig [...] Updated DateTime 03/20/2021 160.02 cm 33.7 kg/m2 96301.55 g Lamont Bravo MD [address] [place] [address],[address], [phone] [place] [address] Urolog 03/20/2021 16:22:47 Date Recorded Body height Body mass index (BMI) Body weight Provider Name and Address Organization Details Last Updated DateTime 08/11/2021 160.02 cm 28.3 kg/m2 94052.78 g Lamont Bravo MD [address] [place] [address],[address] 08/11/2021 16:06:06 Social History Question Answer Notes LastModified by Organizat ion Details LastModified Time Tobacco Smoking Status Never Smoker Lamont Bravo MD [address] [place] [address],[address] [address], [facility] 03/20/2021 16:24:21 What Is Your Level [...] Nicotine? No Information not available 03/20/2021 Sex: Unknown Functional Status None recorded. Mental Status None recorded. Family History Relationship Description Onset Age of this Age Resolved Age Notes Father Family history of malignant neoplasm of prostate Mother Family history of br east cancer Medical History Condition Response High Blood Pressure Y Kidney Stones Y High Cholesterol Y Heart Disease Y Gynecological HistoryNo gynecological history recorded. Obstetrics History GPAL:G 0 P 0 0 0 0 Immunizations Vaccine Type Date Status Provider Name and Address Organization Details Recorded Time pneumococcal polysaccharide PPV23 04/30/2010 completed Lamont Bravo MD [address] [place] [address],[address], [address], [facility] 08/11/2021 16:07:09 Pneumococcal conjugate PCV 13 01/31/2015 completed Lamont Bravo MD [address] [place] [address],[address], [place], [address], [facility] 08/11/2021 16:07:09 pneumococcal polysaccharide PPV23 03/28/2015 completed Lamont Bravo MD [address] [place] [address],[address], [place], [address], [facility] 08/11/2021 16:07:09 Pneumococcal conjugate PCV 13 03/28/2016 completed Lamont Bravo MD [address] [place] [address],[address], [address], [facility] 08/11/2021 16:07:10 pneumococcal polysaccharide PPV23 03/09/2016 completed Lamont Bravo MD [address] [place] [address],[address], [place], [address], [facility] 08/11/2021 16:07:10 Past Encounters Encounter ID Performer Location Encounter Start Date Encounter Closed Date Diagnosis/Indication Diagnosis SNOMED-CT Code [id number] MD TAMIKA [place] [address] [place] [address] 03/20/2021 16:12:05 03/24/2021 11:06:39 Kidney stone [id number] MD TAMIKA [place] 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 Health Concerns Section Related Observation LastModified by Organization Detai ls LastModified Time None Recorded Concern Status LastModified by Organization Details LastModified Time None Recorded Advance Directives Directive None Recorded Payers Encounter Date Sequence Insurance Name Policy Number Policy Oshea Covered Member ID Oshea Member ID Guarantor Name 03/20/2021 1 [place] [employer] [facility] Tanner James [id number] 1 Tanner Brown Erika 03/20/2021 2 [employer] [facility] (MEDICARE SUPPLEMENT) Tanner James [id number] Tanner Brown Erika 08/11/2021 1 [place] [employer] Tanner James [id number] Tanner James 08/11/2021 2 [employer] [place] (MEDICARE SUPPLEMENT) Tanner James [id number] Tanner James Notes Date Note Type Note Provider Name and Address Organization Details Recorded Time 03/20/2021 text/html HPI Notes: New patient here to discuss nephrectomy. She fell when she was at [place] and that led to a CT scan that showed an atrophic kidney and a staghorn stone. She's had recurrent pyelonephritis as well. She had ESWL in 2002. She also has a poor aortic valve. Lamont Bravo MD [address] [place] [address],[address] [place] [address], [address], [facility] 03/20/2021 17:02:40 08/11/2021 text/html HPI Notes: She h as recovered well from surgery. 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 Lamont Bravo MD [address] [place] [address],[address], [place], [address], [facility] 08/11/2021 16:37:50 OBGyn Episode No OBEpisode recorded.
--- OUTSIDE RECORDS SUMMARY | 2024-01-15 02:44 | XMS_ITS | Encounter Summary ---
Author Organization [facility] Address [address], [place] [address] Care Team Providers Care Heel Cementer Machine Name Role Phone Basilio Healy MD Primary Care Provider [phone] Reason for Visit * Reason Comments IV,THERAPY Encounter Details Date Type Department Care Team ([facility] st Contact Info) Description 12/14/2023 Telephone [facility] [address] [place] [address] Man Sánchez MD [address] [place] [id number] IV,THERAPY Social History Tobacco Use Types [...] charting. Man Ramírez MD * Larissa Mckeon [facility] - 12/14/2023 10:31 AM CDT Tanner James???s [...] Info) Description 04/17/2024 12:00 PM CDT Appointment [facility] [address] [place] [address] Man Sánchez MD [facility] [place] [address] documented as of this encounter Visit Diagnoses Not on filedocumented in this encounter Care Teams Heel Cementer Machine Relationship Specialty Start Date End Date Basilio Healy MD [facility] [address] [place] [address] PCP - General Family Practice 10/28/22 documented as of this encounter
--- OUTSIDE RECORDS SUMMARY | 2024-01-15 02:45 | XMS_ITS | Encounter Summary ---
Author Organization [facility] Address [address] [place] [address] Care Team Providers Care Extraction Supervisor Name Role Phone Basilio Healy MD Primary Care Provider [phone] Reason for Visit * Reason Comments Hospital / Follow Up Encounter Details Date Type Department Care Team (Late st Contact Info) Description 10/27/2023 Telephone [facility] 3931 Pulmonary Medicine 3931 [place], [place] [phone] Shara Mitchell MD [address]31 [facility] [address] [place], [place] [phone] Hospital / Follow Up Social History Tobacco [...] email to retrieve all chest films from [facility] in 2023. Frontline, Please contact pt to reschedule. Thank you * Shara Mitchell MD - 10/27/2023 11:28 AM CDT I called and spoke with Dr. Vasquez, who is currently caring for Tanner at [facility]. She was recently admitted for a UTI and improved. She was at a custodial but developed a fever and hypoxia and returned to the hospital. CT imaging showed infiltrates, chronicity unclear. Pulmonary RNs: She was scheduled to see me tomorrow, October 27, but this appointment will need to be rescheduled. Please see if we can obtain the CT imaging from [facility], and then she will not need a repeat CT prior to her visit. Thanks. * Ame Asencio, PEEWEE - 10/27/2023 9:27 AM CDT Incoming call from Dr. Vasquez from [facility]. He states patient is currently admitted and he would like to speak with Dr. Mitchell. He is requesting a call back on his cell phone, . documented in this encounter Plan of Treatment Upcoming Encounters Date Type Department Care Team (Late st Contact Info) Description 04/17/2024 12:00 PM CDT Appointment [facility] [address] [place], [place] [phone] Man Sánchez MD [address] [place] [address] [phone] documented as of this encounter Visit Diagnoses Not on filedocumented in this encounter Care Teams Extraction Supervisor Relationship Specialty Start Date End Date Basilio Healy MD [facility] [address] [place] [address] PCP - General Family Practice 10/28/22 documented as of this encounter
--- OUTSIDE RECORDS SUMMARY | 2024-01-15 02:45 | XMS_ITS | Encounter Summary ---
Author Organization [facility] Address [address], [place] [address] Care Team Providers Care Clean In Places Operator Name Role Phone Basilio Healy MD Primary Care Provider [phone] Reason for Visit * Reason Comments Follow-up Encounter Details Date Type Department Care Team (Late st Contact Info) Description 12/13/2023 1:00 PM CDT Office Visit [facility] [address] [place], [place] [phone] Man Sánchez MD [address] [place] [phone] Rheumatoid arthritis involving multiple joints (HRC) (Primary [...] recent hospitalization. [facility] Patient has tried multiple immunosuppressive drugs [...] of 2021 when patient was admitted at [facility] with a clinical presentation of shortness of breath and upper respiratory tract infection. [facility] and[facility] for pneumonia. Presence of pleural effusion [...] PE Pulmonary embolism (HRC) 12/14/2016 Rheumatoid arthritis(714.0) ([facility]) 12/25/2008 Shoulder impingement 04/03/2013 Past Surgical History: Procedure Laterality Date COLONOSCOPY W/ POLYPECTOMY ([facility]) 10/26/2018 2 specimens (5 polyp). 3 year follow up ESOPHAGOGASTRODUODENOSCOPY ([facility]) 04/14/09 eswl LUMBAR FUSION ([facility]) 04/2010 lami and fusion; [...] HUT Reaction: GI Bleeding; HUT Severity: High; [facility] Noted: [id number] Levaquin [Levofloxacin] Other, see comments Muscles snapped [...] software. As a result, wrong word or '[id number]' substitutions may have occurred due to the inherent limitations of voice recognition software. There may be errors in the script that have gone undetected. Please consider this when interpreting information found in this chart. documented in this encounter Plan of Treatment Upcoming Encounters Date Type Department Care Team (Late st Contact Info) Description 04/17/2024 12:00 PM CDT Appointment [facility] [address] [place], [place] [phone] Man Sánchez MD [facility] [place], [place] [phone] Scheduled Orders Name Type Priority Associated Diagnoses [...] - 20 mm/hr 12/13/2023 2:32 PM CDT [facility] Blood Venipuncture / Unknown 12/13/2023 1:56 PM CDT 12/13/2023 1:56 PM CDT Man Sánchez MD LAB_1 Performing Organization Address [facility] de Phone Number [facility] [id number] [place], [place] [address] * C-Reactive Protein (12/13/2023 1:56 PM CDT) Pathologist [facility] C-Reactive Protein <0.5 0.0 - 0.5 mg/dL 12/13/2023 5:21 PM CDT [facility] Blood Venipuncture / Unknown 12/13/2023 1:56 PM CDT 12/13/2023 1:56 PM CDT Man Sánchez MD LAB_1 Performing Organization Address [facility] de Phone Number [place] [id number] documented in this encounter Visit Diagnoses Diagnosis Rheumatoid arthritis involving multiple joints (HRC)- Primary High risk medication use Encounter for long-term (current) use of other medications Primary osteoarthritis of both knees Primary localized osteoarthrosis, lower leg Current chronic use of systemic steroids Age related osteoporosis, unspecified pathological fracture presence (HRC) documented in this encounter Care Teams Clean In Places Operator Relationship Specialty Start Date End Date Basilio Healy MD [facility] [address] [place] [address] PCP - General Family Practice 10/28/22 documented as of this encounter
--- OUTSIDE RECORDS SUMMARY | 2024-01-15 02:45 | XMS_ITS | Encounter Summary ---
Author Organization [facility] Address [address] [place] [address] Care Team Providers Care Seed Cutter Name Role Phone Basilio Healy MD Primary Care Provider [phone] Reason for Visit * Reason Comments Refill Encounter Details Date Type Department Care Team (Late st Contact Info) Description 02/06/2016 Refill [place] [address] [place] [address]. [place], [place] [phone] Swapnil Henley MD [address] [place] [address] Refill Social History Tobacco Use Types Packs/Day Years Used Date Smoking Tobacco: Never Assessed Sex and Gender Information Value Date Recorded Sex Assigned at Not on file Gender Identity Not on file Sexual Orientation Not on file documented as of this encounter Plan of Treatment Upcoming Encounters Date Type Department Care Team (Late Contact Info) Description 04/17/2024 12:00 PM CDT Appointment [facility] [address] [place] [address] Man Sán[place] [address] [place] [phone] documented as of this encounter Visit Diagnoses Not on filedocumented in this encounter Care Teams Seed Cutter Relationship Specialty Start Date End Date Basilio Healy MD [facility] [address] [place] [address] PCP - General Family Practice 10/28/22 documented as of this encounter
--- OUTSIDE RECORDS SUMMARY | 2024-01-15 02:45 | XMS_ITS | Encounter Summary ---
Author Organization [facility] Address [address] [place] [address] Care Team Providers Care Programming Development Project Manager Name Role Phone Basilio Healy MD Primary Care Provider [phone] Reason for Referral * (Routine) - New Request Specialty Diagnoses / Procedures Referred By Contac t Referred To Contact Procedures Pulmonary Function Test - Complete Shara Mitchell MD [address] [facility] [address] [place] [address] Referral ID Status Reason Start Date Expiration Date V isits Requested Visits Authorized [id number] New Request 12/13/2023 03/13/2025 1 1 Encounter Details Date Type Department Care Team (Latest Contact Info) Description 12/14/2023 12:47 PM CDT - 12/14/2023 11:59 PM CDT Hospital Encounter Specialty Center 3931 Pulmonary Lab [facility] [place] [address] Bronchiectasis, uncomplicated (HRC) (Primary Dx) [...] MG tabletIndications:Rheum atoid arthritis involving multiple joints ([facility]),High risk medication use Take 3 Tablets (3 mg) by mouth daily. 270 Tablet 3 08/09/2023 furosemide (LASIX) 40 MG tablet Take 1 Tablet (40 mg) by mouth daily. 05/02/2023 guaiFENesin (MUCINEX) 600 MG 12 hour release tablet Take 2 Tablets (1,200 mg) by mouth two times a day. 120 Tablet 11 12/17/2022 HYDROcodone-acetaminoph en (NORCO) 5-325 MG tabletIndications:Psori atic arthropathy ([facility]) TAKE 1 TABLET BY MOUTH EVERY 6 [...] Info) Description 04/17/2024 12:00 PM CDT Appointment [facility] [address] [place], [place] [phone] Man Sánchez MD [address] [place] [address] documented as of this encounter Procedures Procedure Name Priority Date/Time Associated Diagnosis Comments COMPLETE PULMONARY FUNCTION TEST Routine 12/13/2023 8:05 AM CDT documented in this encounter Results * Pulmonary Function Test - Complete (12/13/2023 8:05 AM CDT) 12/13/2023 8:05 AM CDT Shara Micthell MD PN PFT ORDERABLES PN MAGGYE documented in this encounter Visit Diagnoses Diagnosis Bronchiectasis, uncomplicated (HRC)- Primary documented in this encounter Care Teams Programming Development Project Manager Relationship Specialty Start Date End Date Basilio Healy MD [facility] [address] [place] [address] PCP - General Family Practice 10/28/22 documented as of this encounter
--- OUTSIDE RECORDS SUMMARY | 2024-01-15 02:45 | XMS_ITS | Encounter Summary ---
Author Organization [facility] Address [address] [place] [address] Care Team Providers Care Horizontal Boring Mill Operator Name Role Phone Basilio Healy MD Primary Care Provider [phone] Reason for Referral * Procedure/Equipment (Routine) - Incomplete Specialty Diagnoses / Procedures Referred By Contac t Referred To Contact Diagnoses Lung infiltrate Procedures CT Chest WO IV Cont Shara Mitchell MD [address] [address] Referral ID Status Reason Start Date Expiration Date V isits Requested Visits Authorized [id number] Incomplete 12/14/2023 03/14/2025 1 1 Reason for Visit * Reason Comments Follow-up Encounter Details Date Type Department Care Team (Late st Contact Info) Description 12/14/2023 2:00 PM CDT Office Visit Specialty Center 3931 Pulmonary Medicine [address] [place] [phone] Shara Mitchell MD [address] [phone] Lung infiltrate (Primary Dx); Bronchiectasis, uncomplicated (HRC) [...] chest (okay to be done at the [place] location). Will call with results. Use Aerobika [...] 04/23/22. She had been previously followed at [facility]. Please see my original consult note for [...] hypoxic respiratory failure from possible pneumonia at [facility] in September 2023. Her MTX was [...] culture (Jul 2022), performed at lab outside [facility]): Positive for Strep (not pneumoniae) and Haemophilus influenza Last CT chest (10/26/23), [facility], images available for review, but official [...] Last pneumonia was September 2023 (hospitalized at [facility]). Feels well currently. PFTs improved. 2) ILD: ? Mild ILD, which could be due to RA vs MTX vs prior pneumonias. 3) Bilateral tree-in-bud infiltrates: Concerning for infection, such as atypical Mycobacterial infection. 4) Chronic cough: Improved. Due to bronchiectasis and recurrent infections. 5) Fractionization of care 6) History of PE: On anticoagulation. Hospitalized at [facility] March 2021 7) History bilateral hemothoraces: Hospitalized at [place] December 2021. Chest tube on right. Improved [...] indication for antibiotics Return to pulmonary clinic ([facility]) in 1 year with cherelle/DLCO and CT chest, sooner PRN. Shara Mitchell MD 12/14/2023 Pulmonary Medicine documented in this encounter Plan of Treatment Upcoming Encounters Date Type Department Care Team (Late st Contact Info) Description 04/17/2024 12:00 PM CDT Appointment [facility] [address] [place], [place] [phone] Man Sánchez MD [address] [place] [address] Scheduled Orders Name Type Priority Associated [...] (HRC) documented in this encounter Care Teams Horizontal Boring Mill Operator Relationship Specialty Start Date End Date Basilio Healy MD [facility] [address] [place] [address] PCP - General Family Practice 10/28/22 documented as of this encounter
--- OUTSIDE RECORDS SUMMARY | 2024-01-15 02:45 | XMS_ITS | Encounter Summary ---
Author Organization [facility] Address [address] [place] [address] Care Team Providers Care Chief Environmental Commitment Officer Name Role Phone Basilio Healy MD Primary Care Provider [phone] Encounter Details Date Type Department Care Team (Late st Contact Info) Description 10/27/2023 Notes/Orders [place] [address] [place] [address]. [place], [place] [phone] Man Sánchez MD [address] [place] [address] [phone] Social History Tobacco Use Types Packs/Day Years [...] Info) Description 04/17/2024 12:00 PM CDT Appointment [facility] [address] [place] [address] Man Sánchez MD [address] [place], [place] [address] documented as of this encounter Visit Diagnoses Not on filedocumented in this encounter Care Teams Chief Environmental Commitment Officer Relationship Specialty Start Date End Date Basilio Healy MD [facility] [address] [place] [address] PCP - General Family Practice 10/28/22 documented as of this encounter
--- OUTSIDE RECORDS SUMMARY | 2024-01-15 02:45 | XMS_ITS | Encounter Summary ---
Author Organization [facility] Address [address] [place] [address] Care Team Providers Care Head Grinder Name Role Phone Basilio Healy MD Primary Care Provider Reason for Visit * (Routine) - Incomplete Specialty Diagnoses / Procedures Referred By Contac t Referred To Contact Procedures Foreign Image(s) CT Angio Chest Provider, Foreign Images [address] [place] [address] Referral ID Status Reason Start Date Expiration Date V isits Requested Visits Authorized [id number] Incomplete 11/02/2023 01/31/2025 1 1 Encounter Details Date Type Department Care Team (Late st Contact Info) Description 10/26/2023 10:40 AM CDT Ancillary Procedure Radiology PACS [address] [place] [address] Provider, Foreign Images [address] [place] [address] Social History Tobacco Use Types Packs/Day Years [...] Info) Description 04/17/2024 12:00 PM CDT Appointment [facility] [address] [place], [place] [address] Man Sánchez MD [address] [place], [place] [phone] documented as of this encounter Procedures Procedure [...] on filedocumented in this encounter Care Teams Head Grinder Relationship Specialty Start Date End Date Basilio Healy MD [facility] [address] [place] [address] PCP - General Family Practice 10/28/22 documented as of this encounter
--- OUTSIDE RECORDS SUMMARY | 2024-01-15 02:45 | XMS_ITS | Encounter Summary ---
Author Organization [facility] Address [address], [place] [address] Care Team Providers Care Travel Counselor Name Role Phone Basilio Healy MD Primary Care Provider [phone] Encounter Details Date Type Department Care Team (Late st Contact Info) Description 12/13/2023 3:10 PM CDT Lab Visit [facility] [address] [place], [place] [phone] Rheumatoid arthritis involving multiple joints (HRC); High [...] Info) Description 04/17/2024 12:00 PM CDT Appointment [facility] [address] [place], [place] [address] Man Sánchez MD [facility] [place], [place] [address] documented as of this encounter Procedures Procedure [...] - 20 mm/hr 12/13/2023 2:32 PM CDT [facility] Blood Venipuncture / Unknown 12/13/2023 1:56 PM CDT 12/13/2023 1:56 PM CDT Man Sánchez MD LAB_1 Performing Organization Address [facility] Co de Phone Number [address] [phone] * C-Reactive Protein (12/13/2023 1:56 PM CDT) Pathologist [facility] C-Reactive Protein <0.5 0.0 - 0.5 mg/dL 12/13/2023 5:21 PM CDT [facility] Blood Venipuncture / Unknown 12/13/2023 1:56 PM CDT 12/13/2023 1:56 PM CDT Man Sánchez MD LAB_1 Performing Organization Address [facility]/ZIP Co de Phone Number [facility] [address] [place] [address] documented in this encounter Visit Diagnoses Diagnosis Rheumatoid arthritis involving multiple joints (HRC) High risk medication use Encounter for long-term (current) use of other medications documented in this encounter Care Teams Travel Counselor Relationship Specialty Start Date End Date Basilio Healy MD [facility] [address] [place] [address] PCP - General Family Practice 10/28/22 documented as of this encounter
== END 2024-01-12 11:23 | disposition home or self-care (01) ==
LOC: AMB 01-15 02:41
PROVIDERS: PCP Family Medicine; Visit Provider Family Medicine
DX: S79.911A Unspecified injury of right hip, initial encounter (principal); W18.30XA Fall on same level, unspecified, initial encounter; Y92.000 Kitchen of unspecified non-institutional (private) residence as the place of occurrence of the external cause
CPT/HCPCS: A0425; A0427

== ENCOUNTER 2024-01-12 12:07 | Emergency (ER) | payer MEDICARE, OTHER, SELFPAY ==
[2024-01-12 12:13] VITALS: BP 141/69; PULSE 72; RESP 18; TEMP 36; O2SAT 98; BMI 35.4
--- NOTE | 2024-01-12 12:27 | ED.FALL ---
HPI - Fall General Chief Complaint: Fall/Minor Trauma Stated Complaint: Fall w/blood thinners Time Seen by Provider: 01/12/24 12:08 Related Data Home Medications ?Medication ?Instructions ?Recorded ?Confirmed Lactobacillus acidophilus 0.5 mg 100 mmu cells PO DAILY 12/22/21 01/12/24 (100 million cell) tablet folic acid 1 mg tablet 3 mg PO DAILY 12/22/21 01/12/24 ascorbic acid (vitamin C) 500 mg 1 g PO DAILY 01/16/22 01/12/24 tablet cholecalciferol (vitamin D3) 50 50 mcg PO DAILY 01/16/22 01/12/24 mcg (2,000 unit) capsule multivitamin 1 tab PO QAM 01/16/22 12/29/23 ferrous gluconate 324 mg (38 mg 324 mg PO DAILY 10/21/23 01/12/24 iron) tablet rosuvastatin 5 mg tablet 5 mg PO HS 10/26/23 01/12/24 valganciclovir 450 mg tablet 450 mg PO DAILY 10/26/23 01/12/24 prednisone 5 mg tablet 12.5 mg PO DAILY 12/29/23 01/12/24 sulfasalazine 500 mg tablet 0.5 g PO QDAY 12/29/23 12/29/23 methotrexate sodium 2.5 mg tablet 17.5 mg PO 01/12/24 paroxetine HCl 20 mg tablet 20 mg PO DAILY 01/12/24 01/12/24 Previous Rx's ?Medication ?Instructions ?Recorded apixaban 5 mg tablet (Eliquis) 2.5 mg (1/2 x 5 mg) PO BID #90 tabs 08/24/23 metoprolol succinate 25 mg 25 mg PO BID #180 tabs 08/24/23 tablet,extended release 24 hr diclofenac sodium 1 % topical gel 2 g topical QID PRN #100 grams 10/25/23 (Voltaren Arthritis Pain) oxycodone 5 mg tablet 2.5 mg (1/2 x 5 mg) PO Q4H PRN 10/29/23 pain #30 tabs duloxetine 60 mg capsule,delayed 60 mg PO DAILY #90 caps 12/03/23 release pregabalin 50 mg capsule 50 mg PO BID #180 caps 12/03/23 potassium chloride 10 mEq 10 meq PO DAILY #90 caps 12/10/23 capsule,extended release hydrocodone 5 mg-acetaminophen 325 1 tab PO BID PRN pain #60 tabs 12/29/23 mg tablet tramadol 50 mg tablet 50 mg PO BID PRN pain #60 tabs 12/29/23 furosemide 40 mg tablet 40 mg PO DAILY #90 tabs 12/31/23 Allergies Allergy/AdvReac Type Severity Reaction Status Date / Time NSAIDS (Non-Steroidal Allergy Severe GI bleed Verified 12/29/23 12:46 Anti-Inflamma terbinafine Allergy Intermediate Headache Verified 12/29/23 12:46 levofloxacin AdvReac Severe tendon Verified 12/29/23 12:46 rupture Review of Systems Status of ROS: Reports: 10 or more systems reviewed and unremarkable except as noted in History and below Narrative: Constitutional: No fevers, no weight gain or loss. Eyes: No discharge. No vision changes. HENT: No congestion, no sore throat, no ear pain. Cardiovascular: No chest pain, no palpitations. Respiratory: No shortness of breath, no wheezes, no cough. Gastrointestinal: No abdominal pain, no vomiting, no diarrhea. Genitourinary: No dysuria, no hematuria. Musculoskeletal: Normal range of motion. Skin: No rashes, no pruritis. Neurological: No dizziness, weakness, sensory change, speech change. Endo/Heme/Allergies: No bruising or bleeding. No polydipsia. Pysch: no suicidality, no anxiety, no insomnia. All other systems reviewed and are negative. [facility] Medical History Congestive heart failure ?I50.9 - Heart failure, unspecified (ICD-10) Non-ST elevated myocardial infarction (non-STEMI) ?I21.4 - Non-ST elevation (NSTEMI) myocardial infarction (ICD-10) Immunocompromised state due to drug therapy ?D84.821 - Immunodeficiency due to drugs (ICD-10) ?Z79.899 - Other ferry terminal agent (current) drug therapy (ICD-10) 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 - Aneurysm of artery of lower extremity (ICD-10) Obesity (BMI 30.0-34.9) ?E66.9 - Obesity, unspecified (ICD-10) Alcohol use disorder ?F10.90 - Alcohol use, unspecified, uncomplicated (ICD-10) Pulmonary embolism ?I26.99 - Other pulmonary embolism without acute cor pulmonale (ICD-10) Gastrointestinal hemorrhage ?K92.2 - Gastrointestinal hemorrhage, unspecified (ICD-10) Aortic stenosis, severe ?I35.0 - Nonrheumatic aortic (valve) stenosis (ICD-10) Pleural effusion ?J90 - Pleural effusion, not elsewhere classified (ICD-10) History of kidney stones ?Z87.442 - Personal history of urinary calculi (ICD-10) Mitral annular calcification ?I05.9 - Rheumatic mitral valve disease, unspecified (ICD-10) Surgical History Status post transcatheter aortic valve replacement (TAVR) using bioprosthesis ?Z95.3 - Presence of xenogenic heart valve (ICD-10) S/P cataract extraction ?Z98.49 - Cataract extraction status, unspecified eye (ICD-10) S/P cholecystectomy ?Z90.49 - Acquired absence of other specified parts of digestive tract (ICD-10) History of left nephrectomy ?Z90.5 - Acquired absence of kidney (ICD-10) History of lumbar fusion (04/2010) ?Z98.1 - Arthrodesis status (ICD-10) History of lithotripsy ?Z98.890 - Other specified postprocedural states (ICD-10) Family History Mother Breast cancer, Onset Age: 70 Sister Breast cancer, Onset Age: 35 Social History Narrative: Discharged yesterday to [address] [place] [address]. Prior to the recent admission she has been living independently at [facility]. Struggling with providing self cares. Code status is DNR DNI. What is your current living situation?: I presently have a place to live Problems where you live: no known problems Problems where you live details: n/a In the past 12 months, utilities in danger of being shut off: no In past 12 months, lack of transportation kept you from medical appts, meetings, work, or getting things needed for daily living: no In the past 12 mos, have been you worried that your food would run out before you had money to buy more?: never true In the past 12 mos, the food you bought just didn't last and you didn't have money to buy more?: never true Highest level of school completed/degree received: high school graduate Smoking Status: Never smoker Do you use any of these nicotine containing products: None Second hand tobacco smoke exposure: Yes How often do you have a drink containing alcohol: never How often do you have six or more drinks on one occasion: Never AUDIT-C Alcohol total score: 0 Non-prescribed substance use: denies use Caffeine: Yes How often does anyone, including family, friends and others, physically hurt you: never How often does anyone, including family, friends and others, insult or talk down to you: never How often does anyone, including family, friends and others, threaten you with harm: never How often does anyone, including family, friends and others, scream or curse at you: never Little interest or pleasure in doing things: more than half the days Feeling down, depressed, or hopeless: more than half the days service: No Exam Narrative: Exam Narrative: Constitutional: Well-developed, well-nourished, no acute distress. HEENT: Normocephalic, atraumatic. Neck: Normal range of motion. Nontender. Supple. Heart: Regular. No murmurs. Normal rate. Intact distal pulses. Lungs: Clear to auscultation. No chest discomfort. No wheezes, rhonchi, or rales. Abdomen: Normal bowel sounds. Nontender. No rebound tenderness. Genitalia: Deferred. Back: No midline tenderness. Normal range of motion. Extremities: Normal range of motion. No injury. Skin: Intact. No rash. Warm. No erythema or pallor. Neurologic: No altered sensation. No weakness. Alert and oriented. Psychiatric: No suicidality. No anxiety or depression. No insomnia. Nursing notes and vitals signs are reviewed. Const: Vital Signs, click to edit/add: Vital Signs - 24 hr 01/12/24 12:13 Temperature 96.8 F L Pulse Rate [Pulse Oximeter] 72 Respiratory Rate 18 Blood Pressure [Le ft Upper Arm] 141/69 H Pulse Oximetry 98 Oxygen Delivery Me thod Room Air Course Vital Signs Vital signs: Initial Vital Signs Temperature 96.8 F L 01/12/24 12:13 Temperature Source Temporal Artery Scan 01/12/24 12:13 Pulse Rate 72 01/12/24 12:13 Respiratory Rate 18 01/12/24 12:13 Blood Pressure 141/69 H 01/12/24 12:13 Blood Pressure Mean 93 01/12/24 12:13 Blood Pressure Position Supine 01/12/24 12:13 Pulse Oximetry 98 01/12/24 12:13 Oxygen Delivery Method Room Air 01/12/24 12:13 Vital Signs Temperature 96.8 F L 01/12/24 12:13 Pulse Rate 72 01/12/24 12:13 Respiratory Rate 18 01/12/24 12:13 Blood Pressure 141/69 H 01/12/24 12:13 Pulse Oximetry 98 01/12/24 12:13 Oxygen Delivery Method Room Air 01/12/24 12:13 Temperature 96.8 F L 01/12/24 12:13 Pulse Rate 72 01/12/24 12:13 Respiratory Rate 18 01/12/24 12:13 Blood Pressure 141/69 H 01/12/24 12:13 Pulse Oximetry 98 01/12/24 12:13 Oxygen Delivery Method Room Air 01/12/24 12:13 MDM - Fall MDM Narrative Medical decision making narrative: This patient comes in for evaluation after a fall that occurred at home prior to arrival. She does use a walker when ambulating. She states that she does have chronic pain in her right hip and left shoulder. Today she somehow got off balance and went down. She was able to get up and bear weight after the fall. She does not report a headache but states that she did hit the left side of her face and has some mild discomfort there. She is taking Eliquis. A CT scan of her head is obtained and returns with no acute findings. She was reporting swelling and pain in her right leg and has had x-ray of her right hip and CT of her right femur. There is evidence of degenerative disease but no other significant findings. The patient does report also some sciatica symptoms that seem to improve after taking a steroid. She reports swelling and pain in her right leg and has bilateral pedal pitting edema. An ultrasound is obtained to evaluate her right leg and shows no evidence of deep venous thrombosis. The patient is taking pain medicine as prescribed by her primary physician and does have a appointment with the [facility] in the next week or 2. She is okay to be discharged home and will continue her current plans. Imaging Data CT scan - head: Radiologist's impression: No skull fracture or acute intracranial hemorrhage identified. Discharge Plan Discharge Clinical Impression: Generalized weakness, Sciatica, Pedal edema Chronic pain Qualifiers: Chronic pain type: chronic pain syndrome Qualified Code(s): G89.4 - Chronic pain syndrome Patient Disposition: Home w/ Parent or Adult Condition: Stable Additional Instructions: Continue current plans. Activity as tolerated. Follow up with MD return if worsening. Prescriptions: No Action pregabalin 50 mg capsule 50 mg PO BID Qty: 180 3RF duloxetine 60 mg capsule,delayed release(DR/EC) 60 mg PO DAILY Qty: 90 3RF prednisone 5 mg tablet 12.5 mg PO DAILY sulfasalazine 500 mg tablet 0.5 g PO QDAY Rx Instructions: give with food (meal/snack) hydrocodone-acetaminophen 5-325 mg tablet 1 tab PO BID PRN (Reason: pain) Qty: 60 0RF tramadol 50 mg tablet 50 mg PO BID PRN (Reason: pain) Qty: 60 2RF cholecalciferol (vitamin D3) 50 mcg (2,000 unit) capsule 50 mcg PO DAILY multivitamin Tablet 1 tab PO QAM ascorbic acid (vitamin C) 500 mg tablet 1 g PO DAILY metoprolol succinate 25 mg tablet extended release 24 hr 25 mg PO BID Qty: 180 3RF Eliquis 5 mg tablet 2.5 mg PO BID Qty: 90 3RF folic acid 1 mg tablet 3 mg PO DAILY Lactobacillus acidophilus 0.5 mg (100 million cell) tablet 100 mmu cells PO DAILY ferrous gluconate 324 mg (38 mg iron) tablet 324 mg PO DAILY diclofenac sodium [Voltaren Arthritis Pain] 1 % gel 2 g topical QID PRNQty: 100 0RF Rx Instructions: apply to single elbow, wrist or hand; for hand includes palm/fingers/back of hand valganciclovir 450 mg tablet 450 mg PO DAILY rosuvastatin 5 mg tablet 5 mg PO HS oxycodone 5 mg tablet 2.5 mg PO Q4H PRN (Reason: pain) Qty: 30 0RF methotrexate sodium 2.5 mg tablet 17.5 mg PO paroxetine HCl 20 mg tablet 20 mg PO DAILY potassium chloride 10 mEq capsule, extended release 10 meq PO DAILY Qty: 90 3RF furosemide 40 mg tablet 40 mg PO DAILY Qty: 90 3RF Follow Up/Referrals: Kyle Healy MD [Primary Care Provider] - Stand Alone Forms: [employer] Info Instructions
--- NOTE | 2024-01-12 12:53 | CRLHL7_ITS ---
For Patients: As a result of the 21st Century Cures Act, medical imaging exams and procedure reports are released immediately into your electronic medical record. You may view this report before your referring provider. If you have questions, please contact your health care provider. INDICATION: Fall, on Eliquis TECHNIQUE: Noncontrast axial CT of the head. Coronal and sagittal reformats. Bone and soft tissue algorithms. COMPARISON: CT head 07/08/2020 FINDINGS: The calvarium appears grossly intact. No acute intracranial hemorrhage or abnormal extra-axial fluid collection identified. Preserved toth-white matter differentiation. Calcific intracranial atherosclerotic plaquing. Partially empty sella configuration. Mucous retention cyst at the inferior left maxillary sinus. Clear mastoid air cells. Bilateral lens implants. IMPRESSION: 1. No skull fracture or acute intracranial hemorrhage identified. Please note that all CT scans at this facility use dose modulation, iterative reconstruction, and/or weight-based dosing when appropriate to reduce radiation dose to as low as reasonably achievable. Dictated by Maci Patricia MD @ 01/12/2024 1:57:17 PM (Electronically Signed)
--- NOTE | 2024-01-12 12:58 | CRLHL7_ITS ---
For Patients: As a result of the Century Cures Act, medical imaging exams and procedure reports are released immediately into your electronic medical record. You may view this report before your referring provider. If you have questions, please contact your health care provider. INDICATION: Leg pain and swelling. TECHNIQUE: Ultrasound venous duplex lower right extremity. Compression venous exam was performed using toth-scale, color Doppler, and spectral Doppler analysis. COMPARISON: None. FINDINGS: Deep veins: Sonographic imaging demonstrates the right common femoral, deep femoral, superficial femoral, popliteal, posterior tibial and the contralateral right common femoral veins to be fully compressible with normal color Doppler blood flow. Superficial veins: Greater saphenous vein is fully compressible. No popliteal cyst. IMPRESSION: Normal right lower extremity venous ultrasound, no sign of deep venous thrombosis. Dictated by Johan Pedersen MD @ 01/12/2024 2:29:18 PM (Electronically Signed)
== END 2024-01-12 14:50 | disposition home or self-care (01) ==
PROVIDERS: Emergency Provider Emergency Medicine Emergency Medical Services; PCP Family Medicine
DX: R53.1 Weakness (principal)
CPT/HCPCS: 70450; 93971; 99284

== ENCOUNTER 2024-01-14 12:37 | Emergency (ER) | payer MEDICARE, OTHER, SELFPAY ==
[2024-01-14] VITALS (8 sets, daily range): BP systolic 97–123; BP diastolic 58–69; PULSE 87–109; RESP 16; TEMP 36; O2SAT 94–98; BMI 35.4
--- NOTE | 2024-01-14 13:20 | CRLHL7_ITS ---
For Patients: As a result of the Century Cures Act, medical imaging exams and procedure reports are released immediately into your electronic medical record. You may view this report before your referring provider. If you have questions, please contact your health care provider. Indication: Fall Technique: Frontal view of the pelvis and frontal and lateral views of the left hip Comparison: None Findings/impression : No acute, displaced fracture or malalignment on provided views. Mild to moderate osteoarthritic degenerative changes of the bilateral femoroacetabular joints. Degenerative changes of the visualized lower lumbar spine with spinal fusion construct without evidence of hardware related complication. Multiple calcifications project over the midline pelvis, likely calcified fibroids. Surgical clips overlie the left pelvis. Calcific atherosclerosis is seen throughout the exam. There are few dystrophic calcifications seen within the subcutaneous fat of the left hip. Dictated by Scott Faulkner MD @ 01/14/2024 2:05:39 PM (Electronically Signed)
--- NOTE | 2024-01-14 13:20 | CRLHL7_ITS ---
For Patients: As a result of the Cures Act, medical imaging exams and procedure reports are released immediately into your electronic medical record. You may view this report before your referring provider. If you have questions, please contact your health care provider. Indication: Fall Technique: Three views of the left shoulder Comparison: None Findings/impression : No acute fracture or malalignment. Moderate osteoarthritic degenerative changes of the acromioclavicular joint and glenohumeral joint. No suspicious osseous lesions. The soft tissues are unremarkable. Dictated by Scott Faulkner MD @ 01/14/2024 2:08:06 PM (Electronically Signed)
--- NOTE | 2024-01-14 13:24 | ED_ITS ---
HPI - General Adult General Chief complaint: Fall/Minor Trauma Stated complaint: fall Time Seen by Provider: 01/14/24 13:07 History of Present Illness HPI narrative: This 78-year-old female comes in for evaluation of injuries from a fall that occurred just prior to arrival. She states that she was sitting on a bench in slid off to her left side landing on her left side. She reports pain in her left shoulder and left hip. She does not report headache. She is on anticoagulants. This is her 2nd fall this week. She was seen by me a few days ago with similar report of pain in the left shoulder. She also had pain in her right hip. Images including CT scan of the head done at that time were all negative. The patient does live in assisted living and has home health care 4 hours a day. Her family has come to help her more but still this is not enough for her declining function. She is unable to raise the right leg from the bed and reports a history of sciatica and right hip degenerative disease. She has edema throughout her whole leg bilaterally, right greater than left. An ultrasound of her right leg was done a couple days ago and showed no sign of deep venous thrombosis. Related Data Home Medications ?Medication ?Instructions ?Recorded ?Confirmed Lactobacillus acidophilus 0.5 mg 100 mmu cells PO DAILY 12/22/21 01/12/24 (100 million cell) tablet folic acid 1 mg tablet 3 mg PO DAILY 12/22/21 01/12/24 ascorbic acid (vitamin C) 500 mg 1 g PO DAILY 01/16/22 01/12/24 tablet cholecalciferol (vitamin D3) 50 50 mcg PO DAILY 01/16/22 01/12/24 mcg (2,000 unit) capsule multivitamin 1 tab PO QAM 01/16/22 12/29/23 ferrous gluconate 324 mg (38 mg 324 mg PO DAILY 10/21/23 01/12/24 iron) tablet rosuvastatin 5 mg tablet 5 mg PO HS 10/26/23 01/12/24 valganciclovir 450 mg tablet 450 mg PO DAILY 10/26/23 01/12/24 prednisone 5 mg tablet 12.5 mg PO DAILY 12/29/23 01/12/24 sulfasalazine 500 mg tablet 0.5 g PO QDAY 12/29/23 12/29/23 methotrexate sodium 2.5 mg tablet 17.5 mg PO 01/12/24 paroxetine HCl 20 mg tablet 20 mg PO DAILY 01/12/24 01/12/24 Previous Rx's ?Medication ?Instructions ?Recorded apixaban 5 mg tablet (Eliquis) 2.5 mg (1/2 x 5 mg) PO BID #90 tabs 08/24/23 metoprolol succinate 25 mg 25 mg PO BID #180 tabs 08/24/23 tablet,extended release 24 hr diclofenac sodium 1 % topical gel 2 g topical QID PRN #100 grams 10/25/23 (Voltaren Arthritis Pain) oxycodone 5 mg tablet 2.5 mg (1/2 x 5 mg) PO Q4H PRN 10/29/23 pain #30 tabs duloxetine 60 mg capsule,delayed 60 mg PO DAILY #90 caps 12/03/23 release pregabalin 50 mg capsule 50 mg PO BID #180 caps 12/03/23 potassium chloride 10 mEq 10 meq PO DAILY #90 caps 12/10/23 capsule,extended release hydrocodone 5 mg-acetaminophen 325 1 tab PO BID PRN pain #60 tabs 12/29/23 mg tablet tramadol 50 mg tablet 50 mg PO BID PRN pain #60 tabs 12/29/23 furosemide 40 mg tablet 40 mg PO DAILY #90 tabs 12/31/23 hydrocodone 5 mg-acetaminophen 325 1 tab PO Q4-6H PRN pain #20 tabs 01/14/24 mg tablet Allergies Allergy/AdvReac Type Severity Reaction Status Date / Time NSAIDS (Non-Steroidal Allergy Severe GI bleed Verified 01/14/24 12:40 Anti-Inflamma terbinafine Allergy Intermediate Headache Verified 01/14/24 12:40 levofloxacin AdvReac Severe tendon Verified 01/14/24 12:40 rupture Review of Systems Status of ROS: Reports: 10 or more systems reviewed and unremarkable except as noted in History and below Narrative: Constitutional: No fevers, no weight gain or loss. Eyes: No discharge. No vision changes. HENT: No congestion, no sore throat, no ear pain. Cardiovascular: No chest pain, no palpitations. Respiratory: No shortness of breath, no wheezes, no cough. Gastrointestinal: No abdominal pain, no vomiting, no diarrhea. Genitourinary: No dysuria, no hematuria. Musculoskeletal: Left shoulder and left hip pain. Her right hip and left shoulder have chronic pain. Skin: No rashes, no pruritis. Neurological: No dizziness, weakness, sensory change, speech change. Endo/Heme/Allergies: No bruising or bleeding. No polydipsia. Pysch: no suicidality, no anxiety, no insomnia. All other systems reviewed and are negative. [facility] Medical History Congestive heart failure ?I50.9 - Heart failure, unspecified (ICD-10) Non-ST elevated myocardial infarction (non-STEMI) ?I21.4 - Non-ST elevation (NSTEMI) myocardial infarction (ICD-10) Immunocompromised state due to drug therapy ?D84.821 - Immunodeficiency due to drugs (ICD-10) ?Z79.899 - Other middle or intermediate school principal (current) drug therapy (ICD-10) 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 - Aneurysm of artery of lower extremity (ICD-10) Obesity (BMI 30.0-34.9) ?E66.9 - Obesity, unspecified (ICD-10) Alcohol use disorder ?F10.90 - Alcohol use, unspecified, uncomplicated (ICD-10) Pulmonary embolism ?I26.99 - Other pulmonary embolism without acute cor pulmonale (ICD-10) Gastrointestinal hemorrhage ?K92.2 - Gastrointestinal hemorrhage, unspecified (ICD-10) Aortic stenosis, severe ?I35.0 - Nonrheumatic aortic (valve) stenosis (ICD-10) Pleural effusion ?J90 - Pleural effusion, not elsewhere classified (ICD-10) History of kidney stones ?Z87.442 - Personal history of urinary calculi (ICD-10) Mitral annular calcification ?I05.9 - Rheumatic mitral valve disease, unspecified (ICD-10) Surgical History Status post transcatheter aortic valve replacement (TAVR) using bioprosthesis ?Z95.3 - Presence of xenogenic heart valve (ICD-10) S/P cataract extraction ?Z98.49 - Cataract extraction status, unspecified eye (ICD-10) S/P cholecystectomy ?Z90.49 - Acquired absence of other specified parts of digestive tract (ICD- 10) History of left nephrectomy ?Z90.5 - Acquired absence of kidney (ICD-10) History of lumbar fusion (04/2010) ?Z98.1 - Arthrodesis status (ICD-10) History of lithotripsy ?Z98.890 - Other specified postprocedural states (ICD-10) Family History Mother Breast cancer, Onset Age: 70 Sister Breast cancer, Onset Age: 35 Social History Narrative: Discharged yesterday to [address] [place] [address]. Prior to the recent admission she has been living independently at [facility]. Struggling with providing self cares. Code status is DNR DNI. What is your current living situation?: I presently have a place to live Problems where you live: no known problems Problems where you live details: n/a In the past 12 months, utilities in danger of being shut off: no In past 12 months, lack of transportation kept you from medical appts, meetings, work, or getting things needed for daily living: no In the past 12 mos, have been you worried that your food would run out before you had money to buy more?: never true In the past 12 mos, the food you bought just didn't last and you didn't have money to buy more?: never true Highest level of school completed/degree received: high school graduate Smoking Status: Never smoker Do you use any of these nicotine containing products: None Second hand tobacco smoke exposure: Yes How often do you have a drink containing alcohol: never How often do you have six or more drinks on one occasion: Never AUDIT-C Alcohol total score: 0 Non-prescribed substance use: denies use Caffeine: Yes How often does anyone, including family, friends and others, physically hurt you : never How often does anyone, including family, friends and others, insult or talk down to you: never How often does anyone, including family, friends and others, threaten you with harm: never How often does anyone, including family, friends and others, scream or curse at you: never Little interest or pleasure in doing things: more than half the days Feeling down, depressed, or hopeless: more than half the days service: No Exam Narrative: Exam Narrative: Constitutional: Well-developed, well-nourished, no acute distress. HEENT: Normocephalic, atraumatic. Neck: Normal range of motion. Nontender. Supple. Heart: Intact distal pulses. Lungs: No chest discomfort. No wheezes, rhonchi, or rales. Abdomen: Nontender. Back: Normal range of motion. Extremities: Right leg has increased swelling compared to left. Bilateral pedal edema. She is unable to raise her right leg from the bed due to chronic symptoms. She also is unable to raise her left arm due to chronic shoulder pain and decreased range of motion. Skin: Intact. No rash. Warm. No erythema or pallor. Neurologic: No altered sensation. No weakness. Alert and oriented. Psychiatric: No suicidality. No anxiety or depression. No insomnia. Nursing notes and vitals signs are reviewed. Const: Vital Signs, click to edit/add: Vital Signs - 24 hr 01/14/24 12:41 01/14/24 13:09 01/14/24 13:15 Temperature 96.8 F L Pulse Rate 87 101 H Pulse Rate [Pulse Oximeter] 88 Respiratory Rate 16 Blood Pressure [Ri t Upper Arm] 123/69 Pulse Oximetry 94 96 98 Oxygen Delivery Me thod Room Air Course Vital Signs Vital signs: Initial Vital Signs Temperature 96.8 F L 01/14/24 12:41 Temperature Source Temporal Artery Scan 01/14/24 12:41 Pulse Rate 88 01/14/24 12:41 Respiratory Rate 16 01/14/24 12:41 Blood Pressure 123/69 01/14/24 12:41 Blood Pressure Mean 87 01/14/24 12:41 Blood Pressure Position High-Fowlers 01/14/24 12:41 Pulse Oximetry 94 01/14/24 12:41 Oxygen Delivery Method Room Air 01/14/24 12:41 Vital Signs Temperature 96.8 F L 01/14/24 12:41 Pulse Rate 88 01/14/24 12:41 Respiratory Rate 16 01/14/24 12:41 Blood Pressure 123/69 01/14/24 12:41 Pulse Oximetry 94 01/14/24 12:41 Oxygen Delivery Method Room Air 01/14/24 12:41 Temperature 96.8 F L 01/14/24 12:41 Pulse Rate 101 H 01/14/24 13:15 Respiratory Rate 16 01/14/24 12:41 Blood Pressure 123/69 01/14/24 12:41 Pulse Oximetry 98 01/14/24 13:15 Oxygen Delivery Method Room Air 01/14/24 12:41 Medical Decision Making MDM Narrative Medical decision making narrative: This patient comes in for evaluation of a fall that occurred just prior to a rrival. She fell from a sitting position and did not have a significant mechanism of injury but does have chronic pain issues with her shoulders and hips. X-ray images of her left shoulder left hip show no acute findings. She does have degenerative disease. The patient lives in an assisted living facility and has home health care 4 hours on 3 days a week. She is here with her son and plans to return to assisted living but will be able to increase the level of care where she has help from the facility and plans to forego the home health resource with this assisted living increase. She is taking hydrocodone twice a day but states that this is currently not adequate to manage her pain. She did have an appointment for a pain clinic visit today but did not make that appointment because of her visit here. I did agree to give her more tablets of hydrocodone for temporary increase of pain medicine given her 2 falls that occurred this week. She understands that this can contribute toward feeling unsteady and slow her responses however the pain relief may actually help her with strength to carry out activities of daily living. She understands that we will not refill this medicine in the ER and ongoing management will need to be from her primary providers. The patient's son is also agreeable with this plan. Imaging Data XR L Hip: Radiologist's impression: No acute, displaced fracture or malalignment on provided views. Mild to moderate osteoarthritic degenerative changes of the bilateral femoroacetabular joints. Degenerative changes of the visualized lower lumbar spine with spinal fusion construct without evidence of hardware related complication. Multiple calcifications project over the midline pelvis, likely calcified fibroids. Surgical clips overlie the left pelvis. Calcific atherosclerosis is seen throughout the exam. There are few dystrophic calcifications seen within the subcutaneous fat of the left hip. XR L Shoulder: Radiologist's impression: No acute fracture or malalignment. Moderate osteoarthritic degenerative changes of the acromioclavicular joint and glenohumeral joint. No suspicious osseous lesions. The soft tissues are unremarkable. Discharge Plan Discharge Clinical Impression: Fall, Chronic pain, Degenerative joint disease Patient Disposition: Home w/ Parent or Adult Condition: Stable Additional Instructions: Continue current plans and take pain medicine as needed and directed. Follow up with primary physician and Pain Clinic for ongoing management. Return if symptoms are recurrent or worsening. Prescriptions: New hydrocodone-acetaminophen 5-325 mg tablet 1 tab PO Q4-6H PRN (Reason: pain) Qty: 20 0RF No Action pregabalin 50 mg capsule 50 mg PO BID Qty: 180 3RF duloxetine 60 mg capsule,delayed release(DR/EC) 60 mg PO DAILY Qty: 90 3RF prednisone 5 mg tablet 12.5 mg PO DAILY sulfasalazine 500 mg tablet 0.5 g PO QDAY Rx Instructions: give with food (meal/snack) hydrocodone-acetaminophen 5-325 mg tablet 1 tab PO BID PRN (Reason: pain) Qty: 60 0RF tramadol 50 mg tablet 50 mg PO BID PRN (Reason: pain) Qty: 60 2RF cholecalciferol (vitamin D3) 50 mcg (2,000 unit) capsule 50 mcg PO DAILY multivitamin Tablet 1 tab PO QAM ascorbic acid (vitamin C) 500 mg tablet 1 g PO DAILY metoprolol succinate 25 mg tablet extended release 24 hr 25 mg PO BID Qty: 180 3RF Eliquis 5 mg tablet 2.5 mg PO BID Qty: 90 3RF folic acid 1 mg tablet 3 mg PO DAILY Lactobacillus acidophilus 0.5 mg (100 million cell) tablet 100 mmu cells PO DAILY ferrous gluconate 324 mg (38 mg iron) tablet 324 mg PO DAILY diclofenac sodium [Voltaren Arthritis Pain] 1 % gel 2 g topical QID PRNQty: 100 0RF Rx Instructions: apply to single elbow, wrist or hand; for hand includes palm/fingers/back of hand valganciclovir 450 mg tablet 450 mg PO DAILY rosuvastatin 5 mg tablet 5 mg PO HS oxycodone 5 mg tablet 2.5 mg PO Q4H PRN (Reason: pain) Qty: 30 0RF methotrexate sodium 2.5 mg tablet 17.5 mg PO paroxetine HCl 20 mg tablet 20 mg PO DAILY potassium chloride 10 mEq capsule, extended release 10 meq PO DAILY Qty: 90 3RF furosemide 40 mg tablet 40 mg PO DAILY Qty: 90 3RF Follow Up/Referrals: Kyle Healy MD [Primary Care Provider] - Stand Alone Forms: [employer] Info Instructions
--- OUTSIDE RECORDS SUMMARY | 2024-01-14 13:59 | XMS_ITS | Encounter Summary ---
[facility] [address] [place] [address] Care Team Providers Care Mixer Attendant Name Role Phone Basilio Healy MD Primary Care Provider [phone] Reason for Referral * Procedure/Equipment (Routine) - Incomplete Specialty Diagnoses / Procedures Referred By Contac t Referred To Contact Diagnoses Lung infiltrate Procedures CT Chest WO IV Cont Shara Mitchell MD [address] [address] Referral ID Status Reason Start Date Expiration Date V isits Requested Visits Authorized [id number] Incomplete 12/14/2023 03/14/2025 1 1 Reason for Visit * Reason Comments Follow-up Encounter Details Date Type Department Care Team (Late st Contact Info) Description 12/14/2023 2:00 PM CDT Office Visit Specialty Center [id number] [place] [address] [id number] Shara Mitchell MD [address] [id number] Lung infiltrate (Primary Dx); Bronchiectasis, uncomplicated (HRC) Social History Tobacco Use Types Packs/Day [...] Taken Comments Blood Pressure - - Pulse 86 12/14/2023 1:49 PM CDT Temperature - - Respiratory Rate - - Oxygen Saturation 98% 12/14/2023 1:49 PM CDT Inhaled Oxygen Concentration - - Weight 90.7 kg (200 lb) 12/14/2023 1:49 PM CDT Height 160 cm (5' 3) 12/14/2023 1:49 PM CDT Body Mass Index 35.43 12/14/2023 1:49 PM CDT documented in this encounter Patient Instructions * Patient Instructions* Shara Mitchell MD - 12/14/2023 2:[address] chest (okay to be done at the [facility] location). Will call with results. Use Aerobika if you notice more chest congestion Your breathing tests numbers improved since September 2022 documented in this encounter Progress Notes * Shara Mitchell MD - 12/14/2023 2:00 PM CDT PULMONARY FOLLOW-UP REASON FOR VISIT: Tanner James is a 78 y.o. female is here today for follow up of bronchiectasis and recurrent respiratory infections SUBJECTIVE: We last had a visit in September 2022. She is here today with her daughter. She was seen by me in initial consultation to establish care for bronchiectasis on 04/23/22. She had been previously followed at [facility]. Please see my original consult note for full details. Briefly, she has a complex PMH, including [facility] multiple pulmonary emboli, bronchiectasis, moderate-severe aortic stenosis, rheumatoid arthritis (on immunosuppression), prior psoriatic arthritis, atrial fibrillation, multiple hospitalization for pneumonia, anxiety, diastolic dysfunction, and a left nephrectomy 07/11/2021 for staghorn calculus. For her airway clearance she was using 7% sodium chloride nebs plus albuterol and her Aerobika b.i.d. She has not needed any nebulizer treatments since July 2023. At her prior visit, her spirometry was relatively normal, but her DLCO was 50%. Since her last visit, she had a TAVR in late May 2023. Since her procedure, her symptoms have dramatically improved. She was hospitalized with acute hypoxic respiratory failure from possible pneumonia at [facility] in September 2023. Her MTX was held. She was discharged to a TCU on 10/25/23, but has been home since 11/25/23. Currently, she feels well. She denies significant cough or dyspnea. Again, she has not needed neb treatments for several months. No fever, chills, night sweats, or chest pain. No recent URIs. She lives with her daughter, who has been very helpful. In prior goals of care discussions, they both noted she is DNR/DNI. She is a lifelong nonsmoker. OBJECTIVE: Pulse 86 Ht 5' 3 (1.6 m) Wt 200 lb (90.7 kg) SpO2 98% BMI 35.43 kg/m?? Ambulatory SpO2 95% on room air General: Alert, NAD, able to speak in full sentences HEENT: Sclerae anicteric, MMM Lungs: Scattered crackles bilaterally CV: RRR Neuro: Appropriate with questions. RESULTS: Prior sputum culture (Jul 2022), performed at lab outside [facility]): Positive for Strep (not pneumoniae) and Haemophilus influenza Last CT chest (10/26/23), [facility], images available for review, but official radiology report not available for review: No evidence of pulmonary embolism. Bilateral ground-glass opacities Small pleural effusions right greater than left PFTs (today): FVC 86%, FEV1 78%, and ratio 70, consistent with mild obstruction. Diffusion is mildly decreased at 70%. Compared to her last pulmonary function test from September 2022, her spirometry anddiffusion are improved. ASSESSMENT: 1) Bronchiectasis: Predominantly in bilateral lower lobes on CT from January 2022. Was on Aerobika, 7% saline, and albuterol nebs BID, but has been able to stop all of these in July 2023, after her symptoms dramatically improved post-TAVR. Last pneumonia was September 2023 (hospitalized at [facility]). Feels well currently. PFTs improved. 2) ILD: ? Mild ILD, which could be due to RA vs MTX vs prior pneumonias. 3) Bilateral tree-in-bud infiltrates: Concerning for infection, such as atypical Mycobacterial infection. 4) Chronic cough: Improved. Due to bronchiectasis and recurrent infections. 5) Fractionization of care 6) History of PE: On anticoagulation. Hospitalized at [facility] March 2021 7) History bilateral hemothoraces: Hospitalized at [place] December 2021. Chest tube on right. Improved onCT from January 2022. 8) Parakeet exposure (2019): Now removed from home. 9) Immunosuppressed status: Due to RA treatment with prednisone, Enbrel, and MTX. 10) Small bilateral pleural effusions: Etiology unclear. 11) DNR/DNI code status 12) Lifelong non-smoker RECOMMENDATIONS: 1) Reviewed symptoms, diagnosis, and treatment of bronchiectasis 2) Previously given a printed handout on bronchiectasis 3) Agree with continuing to hold neb treatments, as she has been feeling well. 4) Okay to use Aerobika PRN for chest congestion/increased cough 5) No indication for supplemental oxygen 6) Keep immunizations up-to-date 7) No current indication for antibiotics Return to pulmonary clinic ([facility]) in 1 year with cherelle/DLCO and CT chest, sooner PRN. Shara Mitchell MD 12/14/2023 Pulmonary Medicine documented in this encounter Plan of Treatment Upcoming Encounters Date Type Department Care Team (Late st Contact Info) Description 04/17/2024 12:00 PM CDT Appointment [facility] [address] [place], [place] [address] Man Sánchez MD [address] [place] [id number] Scheduled Orders Name Type Priority Associated Diagnoses Orde r Schedule CT Chest WO IV Cont Imaging New Routine Lung infiltrate Expected: 12/14/2023 (Approximate), Expires: 12/13/2024 Spirometry with Diffusion PFT Routine Lung infiltrate Bronchiectasis, uncomplicated (HRC) Expected: 12/18/2024, Expires: 06/19/2026 documented as of this encounter Visit Diagnoses Diagnosis Lung infiltrate- Primary Other nonspecific abnormal finding of lung field Bronchiectasis, uncomplicated (HRC) documented in this encounter Care Teams Mixer Attendant Relationship Specialty Start Date End Date Basilio Healy MD [facility] [address] [place] [address] PCP - General Family Practice 10/28/22 documented as of this encounter
--- OUTSIDE RECORDS SUMMARY | 2024-01-14 13:59 | XMS_ITS | Clinical Summary ---
Author Organization [facility] Address [address] [place] [address] Care Team Providers Care Hearing And Speech Assistant Name Role Phone Basilio Healy MD Primary Care Provider [phone] Source Comments You are receiving this document as you are listed as the primary care provider,follow-up provider, or the patient has been referred to you for consultation.This is in compliance with the Medicare and[facility] EHR Incentive Program,which states Providers who transition their patient to another setting of careor provider of care or refers their patient to another provider of care shouldprovide summary care record for each transition of care or referral. [employer] Data Allergies Active Allergy Reactions Criticality Noted Date [...] for Wheezing. 180 mL 11 04/23/2022 Active Additional Information Patient not taking.Reported on 12/13/2023 ferrous gluconate (FERGON) 324 (38 Fe) MG tablet Take 1 Tablet (324 mg) by mouth daily. Active ascorbic acid (VITAMINC) 250 MG tablet Take 1 Tablet (250 mg) by mouth daily. Active fluticasone-salmete rol (ADVAIR HFA) 115-21 mcg/actuation inhaler Inhale 2 Puffs two times a day. With spacer. Rinse mouth/gargle after use. 1 Each 11 11/04/2022 Active Additional Information Patient not taking.Reported on 08/09/2023 guaiFENesin (MUCINEX) 600 MG 12 hour release tablet Take 2 Tablets (1,200 mg) by mouth two times a day. 120 Tablet 11 12/17/2022 Active Additional Information Patient not taking.Reported on 12/13/2023 metoprolol succinate (TOPROL XL) 25 MG 24 hour release tablet Take 1 Tablet (25 mg) by mouth daily. 12/26/2022 Active furosemide (LASIX) 40 MG tablet Take 1 Tablet (40 mg) by mouth daily. 05/02/2023 Active PREDNISOLONE ACETATE OP Place 2 Drops into eye(s). Active folic acid 1 MG tabletIndications:R heumatoid arthritis involving multiple joints (HRC),High risk medication use Take 3 Tablets (3 mg) by mouth daily. 270 Tablet 3 08/09/2023 Active DULoxetine (CYMBALTA) 60 MG capsule Take 1 Capsule (60 mg) by mouth daily. Active DICLOFENAC SODIUM OP Apply 1 % topically every 4 hours. Active senna (SENOKOT) 8.6 MG tablet Take 1 Tablet by mouth daily. Active ketoprofen (ORUDIS) 50 MG capsule Take 1 Capsule (50 mg) by mouth 4 times daily as needed for Pain. Active sulfaSALAzine (AZULFIDINE) 500 MG tabletIndications:R heumatoid arthritis involving multiple joints (HRC),High risk medication use 1 tablet daily for a week then increase to 2 tablets daily for a week then increase to 2 tablets twice daily thereafter 120 Tablet 4 12/13/2023 Active predniSONE (DELTASONE) 5 MG tabletIndications:R heumatoid arthritis involving multiple joints (HRC),High risk medication use 12.5 mg daily for 2 weeks then decrease by 2.5 mg every 2 weeks as tolerated. 90 Tablet 1 12/13/2023 Active Active Problems Patient Care Coordination No te Formatting of this note migh t be different from the original. Rheumatology- Patient receives drug assistance for Enbrel from [employer]. 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 Patient discontinued 05/2012. 12/20/2012 start venlafaxine 37.5mg Osteopenia 12/07/2011 Overview: American History Teacher wants patient to be on alendronate [...] 04/21/2010 Overview: HGB 9.6 ON ADMIT TO [facility] 03/2009; ENDOSCOPY REVEALED SHALLOW [...] Encounters Date Type Department Care Team Description 12/20/2023 9:17 AM CDT - 12/20/2023 11:59 PM CDT Hospital Encounter [facility] [address] [place] [address] Alycia Sosa MD Age-related osteoporosis without current pathological fracture (HRC) (Primary Dx) 12/14/2023 2:00 PM CDT [facility] Visit [facility] [address] [place] [address] [place] [address] Shara Mitchell MD Lung infiltrate (Primary Dx); Bronchiectasis, uncomplicated (HRC) 12/14/2023 12:47 PM CDT - 12/14/2023 11:59 PM CDT Hospital Encounter [facility] Pulmonary Lab [address] [place] [address] [place] [address] Bronchiectasis, uncomplicated (HRC) (Primary Dx) Discharge Disposition: Home 12/14/2023 Telephone [facility] [address] [place] [address] Man Sánchez MD IV,THERAPY 12/13/2023 3:10 PM CDT Lab Visit [facility] [address] [place] [address] Rheumatoid arthritis involving multiple joints (HRC); High risk medication use 12/13/2023 1:00 PM CDT Office Visit [facility] [address] [place] [address] Man Sánchez MD Rheumatoid arthritis involving multiple joints (HRC) (Primary Dx); High risk medication use; Primary osteoarthritis of both knees; Current chronic use of systemic steroids; Age related osteoporosis, unspecified pathological fracture presence (HRC) 10/27/2023 Notes/Orders [facility] [address] Rheumatology [address] [place] [address] Man Sánchez MD 10/27/2023 Telephone [facility] Pulmonary Medicine [address] [place] [address] Shara Mitchell MD Hospital / Follow Up 10/26/2023 10:40 AM CDT Ancillary Procedure Radiology PACS [address] [place] [address] Provider, Foreign Images from Last 3 Months Immunizations Name Administration Dates Next Due Flu Vac (3+ yrs) 04/03/2013, 2,04/30/2010, 009,04/10/2003 Flu Vac Preserv Free (3+yrs) 04/30/2010,04/15/20 09 HepA Adult (19+ yrs) 10/20/2004,03/07/2004 HepA Ped/Adol (1-18 yrs) 10/20/2004 HepA, Pediatric (DO NOT USE; for MIIC only) 10/20/2004 IPV (Polio) 03/07/2004 Influenza (Fluad) 04/19/2018 Influenza IIV3 (Trivalent) F luzone Highdose, 65+ Yrs (28986) 04/25/2019,03/09/2016,03/30/2014 Influenza IIV4 (Quadrivalent ) 0.5mL (96278) 04/23/2021,04/25/2019,04/19/2018, 016,03/30/2014,04/03/2013,04/15/2012,08/2009,04/15/2009,04/10/2003 Influenza IIV4 (Quadrivalent ) Fluzone, [...] Sign Reading Time Taken Comments Blood Pressure 153/68 12/20/2023 9:34 AM CDT Pulse 79 12/20/2023 9:34 AM CDT Temperature 36.4 ??C (97.6 ??F) 12/20/2023 9:34 AM CD T Respiratory Rate 18 02/12/2014 11:42 AM CDT Oxygen Saturation 98% 12/14/2023 1:49 PM CDT Inhaled Oxygen Concentration - - Weight 90.7 kg (200 lb) 12/14/2023 1:49 PM CDT Height 160 cm (5' 3) 12/14/2023 1:49 PM CDT Body Mass Index 35.43 12/14/2023 1:49 PM CDT Plan of Treatment Upcoming Encounters Date Type Department Care Team (Late st Contact Info) Description 04/17/2024 12:00 PM CDT Appointment [facility] [address] [place], [place] [phone] Man Sánchez MD [address] [place], [place] [id number] Health Maintenance Due Date Last Done Comments Medicare Annual Wellness Visit 1945 COVID-19 Vaccine ( season) 2023 03/24/2022, 05/02/2021, 09/10/2020, Additional history exists Colonoscopy 10/27/2023 10/26/2018 (Comp leted), 11/12/2008 (Completed) Influenza (#1) 2024 04/15/2023, 11/12/2021, 04/23/2021, Additional history exists Dexa 10/07/2024 10/07/2022, 02/02/2018 DTaP/Tdap/Td (3 - [...] Procedure Name Priority Date/Time Associated Diagnosis Comments SEDIMENTATION RATE (ESR) Routine 12/13/2023 1:56 PM CDT Rheumatoid arthritis involving multiple joints (HRC) High risk medication use C-REACTIVE PROTEIN Routine 12/13/2023 1: 56 PM CDT Rheumatoid arthritis involving multiple joints (HRC) High risk medication use COMPLETE PULMONARY FUNCTION TEST Routine 12/13/2023 8:05 AM CDT FOREIGN IMAGE(S) CT ANGIO CHEST Routine 10/26/2023 [...] Recently Relevant to Health Maintenance Results * C-Reactive Protein (12/13/2023 1:56 PM CDT) C-Reactive Protein <0.5 0.0 - 0.5 mg/dL 12/13/2023 5:21 PM CDT [facility] Blood Venipuncture / Unknown 12/13/2023 1:56 PM CDT 12/13/2023 1:56 PM CDT Man Sánchez MD LAB_1 [facility] [address] [place] [address], [facility] * Sedimentation Rate (ESR) (12/13/2023 1:56 PM CDT) Sedimentation Rate 2 0 - 20 mm/hr 12/13/2023 2:32 PM CDT [facility] Blood Venipuncture / Unknown 12/13/2023 1:56 PM CDT 12/13/2023 1:56 PM CDT Man Sánchez MD LAB_1 Performing Organization Address [facility] Co de Phone Number [facility] [address] [place] [address] * Pulmonary Function Test - Complete (12/13/2023 8:05 AM CDT) 12/13/2023 8:05 AM CDT Shara Mitchell MD PN PFT ORDERABLES Performing Organization Address [facility] Co de Phone Number PN MAMTA * Foreign Image(s) CT Angio Chest (10/26/2023 10:40 AM CDT) Narrative POCT - 11/02/2023 10:36 AM CDT These outside images have been uploaded into PACS. If the results were provided, they will be located in the patient's chart under the Media or Imaging tab. Foreign Images Provider RAD NON-REPORTAB LES Performing Organization Address City/[facility] Co de Phone Number POCT * DXA Bone Density Spine[employer] [...] not included. Patient Name: Tanner James Densitometer: [employer] W Appt Dept/Resource: [facility] Bone Density [...] trabecular bone, and is derived from the [id number] changes of bone density embedded in the [...] Performed by Real Time PCR CLIA Number [id number] HCV Quant iu/ml <12 IU/ml HP CONVERSION Comment:CLIA Number [id number] HCV Quant Log iu/ml <1.08 Log IU/ml HP CONVERSION Comment: Performed at [facility], [address] [place] [address] [place] [address] [place] Number [id number] 12/12/2015 11:4 4 AM CDT 12/12/2015 3:01 PM CDT Swapnil Henley MD LAB_1 HP CONVERSION from Last 3 Months or Most Recently Relevant to Health Maintenance Advance Directives Documents on File Type Date Recorded Patient Office Clin Asst Expl anation POLST 02/02/2017 01/05/2017 Care Teams Hearing And Speech Assistant Relationship Specialty Start Date End Date Basilio Healy MD [facility] [address] [place] [address] PCP - General Family Practice 10/28/22
--- OUTSIDE RECORDS SUMMARY | 2024-01-14 13:59 | XMS_ITS | Clinical Summary ---
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 Patient discontinued 05/2012. 12/20/2012 start venlafaxine 37.5mg Osteopenia 12/07/2011 05/05/2023 Overview: Branch Maker wants patient to be on alendronate [...] 04/21/2010 Overview: HGB 9.6 ON ADMIT TO [facility] 03/2009; ENDOSCOPY REVEALED SHALLOW GASTRIC ULCERATIONS [...] Requisition [facility] [phone] Luci Meza NP 10/29/2023 Lab Requisition [facility] [phone] Juaquin Jones MD from Last 3 Months [...] Comments Blood Pressure 159/76 07/27/2023 1:14 PM METAL BONDING HELPER Pulse 52 07/27/2023 1:14 PM METAL BONDING HELPER Temperature 36.4 ??C (97.6 ??F) 07/01/2023 8:06 AM CS T Respiratory Rate 16 07/09/2023 3:27 PM METAL BONDING HELPER Oxygen Saturation 97% 07/27/2023 1:14 PM METAL BONDING HELPER Inhaled Oxygen Concentration - - Weight 80.3 kg (177 lb) 07/27/2023 1:14 PM METAL BONDING HELPER Height 160 cm (5' 3) 07/27/2023 1:14 PM METAL BONDING HELPER Body Mass Index 31.35 07/27/2023 1:14 PM METAL BONDING HELPER Plan of Treatment Health Maintenance Due Date [...] 02/27/2015, 11/26/2011 Medical Devices Implanted Type Area Rn Ante Partum Device Identifier Shelf Expiration Date Model / Serial / Lot Screw Tsrh Og Thin 6.5x50mm - [id number] Implanted:Qty: 3 on 04/28/2010 at [facility] N/A: Spine [employer] [id number]# / / Screw Locking 4x20mm Fine Tip Titnm - [id number] Implanted:Qty: 4 on 04/28/2010 at [facility] [employer] [id number] # / / Screw Thin Crest 6.5x45mm - [id number] Implanted:Qty: 1 on 04/28/2010 at [facility] [id number]# / / Set Screw 3dx - [id number] Implanted:Qty: 4 on 04/28/2010 at [facility] [id number]# / / Cnnctr Tsrh 3dx Sm - [id number] Implanted:Qty: 4 on 04/28/2010 at [facility] Medtronic [id number]# / / Rios 3.5cmx5.5mm Pre-Cut - [id number] Implanted:Qty: 2 on 04/28/2010 at [facility] [id number]# / / Kit Infuse Md - [id number] Implanted:Qty: 1 on 04/28/2010 at [facility] Spine SOFOR DAN 10/26/2012 [id number]# / / [id number] Filler Bio [id number] - [id number] Implanted:Qty: 1 on 04/28/2010 at [facility] [id number]# / / [id number] Synfix Lr 26mm Implanted:Qty: 1 on 04/28/2010 at [facility] Spine [employer] [id number] S / / [id number] Description:SYNFIX LR 26MM Procedures Procedure Name Priority [...] - 16.0 g/dL 11/16/2023 8:00 AM CDT [facility] MCV 111(H) 80 - 100 fL 11/16/2023 8:00 AM CDT [facility] Blood BLOOD SPECIMEN / Unknown Venipuncture / Unknown 11/16/2023 7:10 AM CDT 11/16/2023 7:54 AM CDT Luci Meza NP HEMATOLOGY Performing Organization Address [facility] Co de Phone Number [facility] [address] [place] [address] * (ABNORMAL) BASIC METABOLIC PANEL (11/16/2023 7:10 AM CDT) Only the most recent of2 resultswithin the time period is included. SODIUM 147(H) 136 - 145 mmol/L 11/16/2023 8:23 AM CDT [facility] POTASSIUM 4.2 3.5 - 5.1 mmol/L 11/16/2023 8:23 AM [facility] CHLORIDE 108(H) 98 - 107 mmol/L 11/16/2023 8:23 AM [facility] CO2,TOTAL 30(H) 22 - 29 mmol/L 11/16/2023 8:23 AM [facility] ANION GAP 9 5 - 18 11/16/2023 8:23 AM [facility] GLUCOSE 86 70 - 99 mg/dL 11/16/2023 8:23 AM [facility] CALCIUM 8.9 8.8 - 10.2 mg/dL 11/16/2023 8:23 AM [facility] BUN 27(H) 8 - 23 mg/dL 11/16/2023 8:23 AM [facility] CREATININE 1.18(H) 0.50 - 0.90 mg/dL 11/16/2023 8:23 AM [facility] BUN/CREAT RATIO 23(H) 10 - 20 8:23 AM [facility] eGFR 48(L) >90 mL/min/1.7 3m2 11/16/2023 8:23 AM [facility] Comment:As of 2021, eG FR [...] 7:54 AM T Luci Meza NP CHEMISTRY [facility] [address] [place] [address] * (ABNORMAL) CBC WITH AUTO DIFFERENTIAL (11/02/2023 8:05 AM T) WHITE BLOOD COUNT 7.4 4.5 - 11.0 thou/cu mm 11/02/2023 12:05 PM [facility] RED BLOOD COUNT 3.79(L) 4.00 - 5.20 mil/cu mm 11/02/2023 12:05 PM [facility] HEMOGLOBIN 12.4 12.0 - 16.0 g/dL 11/02/2023 12:05 PM [facility] HEMATOCRIT 39.9 33.0 - 51.0 % 11/02/2023 12:05 PM [facility] MCV 105(H) 80 - 100 fL 11/02/2023 12:05 PM [facility] MCH 32.7 26.0 - 34.0 pg 11/02/2023 12:05 PM [facility] MCHC 31.1(L) 32.0 - 36.0 g/dL 11/02/2023 12:05 PM [facility] RDW 16.1(H) 11.5 - 15.5 % 11/02/2023 12:05 PM [facility] PLATELET COUNT 148 140 - 440 thou/cu mm 11/02/2023 12:05 PM [facility] MPV 11.0 6.5 - 11.0 fL 11/02/2023 12:05 PM [facility] Blood BLOOD SPECIMEN / Unknown Butterfly / Unknown 11/02/2023 8:05 AM CDT 11/02/2023 10:00 AM CDT Juaquin Jones MD HEMATOLOGY [facility] [address] [place] [address] * (ABNORMAL) RED CELL MORPHOLOGY (11/02/2023 8:05 AM CDT) ELLIPTOCYTES Few 11/02/2023 12:05 PM [facility] RBC COMMENT Present(A) RBC morphology appears normal, RBC morphology within normal limits for newborns. 11/02/2023 12:05 PM [facility] LARGE PLATELETS Present 12:05 PM [facility] Blood BLOOD SPECIMEN / Unknown Butterfly / Unknown 11/02/2023 8:05 AM CDT 11/02/2023 10:00 AM CDT Juaquin Jones MD HEMATOLOGY Performing Organization Address City/[facility]/ZIP Co de Phone Number [facility] [address] [place] [address] * PLATELET ESTIMATE (11/02/2023 8:05 AM CDT) PLATELET ESTIMATE Adequate Adequate, No estimate 11/02/2023 12:05 PM [facility] Blood BLOOD SPECIMEN / Unknown Butterfly / Unknown 11/02/2023 8:05 AM CDT 11/02/2023 10:00 AM CDT Juaquin Jones MD HEMATOLOGY Performing Organization Address [facility] Co de Phone Number [facility] [address] [place] [address] * MANUAL DIFFERENTIAL (11/02/2023 8:05 AM CDT) % NEUTROPHILS 66.0 % 11/02/2023 12:05 PM [facility] % LYMPHOCYTES 29.0 % 11/02/2023 12:05 PM [facility] % MONOCYTES 4.0 % 11/02/2023 12:05 PM [facility] % EOSINOPHILS 1.0 % 11/02/2023 12:05 PM [facility] % BASOPHILS 0.0 % 11/02/2023 12:05 PM [facility] NEUTROPHILS ABSOLUTE 4.9 1.7 - 7.0 thou/cu mm 11/02/2023 12:05 PM [facility] LYMPHOCYTES ABSOLUTE 2.1 0.9 - 2.9 thou/cu mm 11/02/2023 12:05 PM [facility] MONOCYTES ABSOLUTE 0.3 <0.9 thou/cu mm 11/02/2023 12:05 PM [facility] EOSINOPHILS ABSOLUTE 0.1 <0.5 thou/cu mm 11/02/2023 12:05 PM CDT [facility] BASOPHILS ABSOLUTE 0.0 <0.3 thou/cu mm 11/02/2023 12:05 PM CDT [facility] Blood BLOOD SPECIMEN / Unknown Butterfly / Unknown 11/02/2023 8:05 AM CDT 11/02/2023 10:00 AM CDT Juaquin Jones MD HEMATOLOGY [facility] [address] [place] [address] * XR DXA BONE DENSITY 2 SITES AXIAL (02/02/2018 3:00 PM CDT) Anatomical Region Laterality Modality Spine, HIPS, HIPL, HIPR Other 02/02/2018 3:41 PM CDT Narrative 02/02/2018 3:44 PM CDT EXAM: XR DXA BONE DENSITY 2 SITES AXIAL INDICATION: Disorder of bone. ??Osteopenia. ??Postmenopausal. TECHNIQUE: Standardized bone density measurements were obtained using the Diassess/Swift Shift bone densitometry system. COMPARISON: None. FINDINGS: SPINE: [...] bone density measurements were obtained using the [employer]/Swift Shift bone densitometry system. COMPARISON: None. FINDINGS: SPINE: [...] Documents on File Type Date Recorded Patient Mortgage Clerk Expl anation POLST 04/29/2021 POLST 02/02/2017 1:11 [...] Code Status Discussion: Reviewed Preferences Care Teams Oxidation Engineer Relationship Specialty Start Date End Date Kyle Healy MD [address] [place] [address] PCP - General Family Practice 07/14/23 Swapnil Henley MD Rheumatology 12/20/12 Marlys Woodruff, RD [address] [place] [address] Registered Dietitian Cut Off Man 07/05/18 Funmi Medina, [place] [address] [place], [place] [phone] Occupational Therapy 05/11/23 Mary Carpio Cardiology - Interventional 01/12/18 DR. Luo Dentistry - General 01/12/18
--- OUTSIDE RECORDS SUMMARY | 2024-01-14 13:59 | XMS_ITS | Encounter Summary ---
Author Organization [facility] Address [address], [place] [address] Care Team Providers Care Sterilization Specialist Name Role Phone Basilio Healy MD Primary Care Provider [phone] Reason for Visit * Reason Comments IV,THERAPY Encounter Details Date Type Department Care Team ([facility] st Contact Info) Description 12/14/2023 Telephone [facility] [address] [place] [address] Man Sánchez MD [address] [place] [id number] IV,THERAPY Social History Tobacco Use Types Packs/Day Years [...] as of this encounter Nursing Notes * Man Sánchez MD - 12/14/2023 11:29 AM CDT Reclast therapy plan signed. * Joseline Mcdonald RN - 12/14/2023 10:35 AM CDT Osteoporosis Therapy Plan Renewal Medication: Reclast (zoledronic acid) Date of scheduled Infusion/Injection: 12/20/23 DXA: 10/07/22 Vitamin D: Date: 01/16/19 Result: 40.4 11/16/23 care everywhere labs: CALCIUM 8.8 - 10.2 mg/dL 8.9 CREATININE 0.50 - 0.90 mg/dL 1.18 High Last Visit Date: 12/13/23 Osteoporosis Plan from Last Visit: Assessment and Plan: Longstanding history of rheumatoid arthritis and presence of generalized osteoarthritis. Patient has not been able to tolerate the methotrexate secondary to recurrent infections predominantly UTIs and recently pneumonia. A concern for possible methotrexate toxicity or interstitial lung disease was raised on recent admission. Methotrexate was recently discontinued during her last admission in October. Currently on prednisone 15 mg daily. Presence of pitting edema in the lower extremities. Patient has been complaining of weight gain. Patient has tried multiple immunosuppressive therapy in the past as stated above. Discussed the option of leflunomide and sulfasalazine. The decision was made to do a trial of sulfasalazine as a steroid sparing agent. Recommend 1 tablet daily for a week then increase to 2 tablets daily the 2nd week then increase to 2 tablets twice daily thereafter. Continue folic acid 3 mg daily. Will do blood work today. Recommend blood work in 1 month then in 2-3 months thereafter while on sulfasalazine. Recommend slow taper of prednisone by 2.5 mg every 2 weeks if tolerated. Presence of generalized osteoarthritis. Osteoarthritis in the knees. Patient received steroid injection in the left knee. Recommend topical Voltaren gel 3-4 times daily. Tylenol as needed for joint pain. History of osteoporosis and chronic systemic steroid use. Previously could not tolerate oral Fosamax therapy secondary to musculoskeletal symptoms. Patient has been able to get the Reclast infusions secondary to recent admissions. Recommend starting treatment with Reclast infusions once a year. Recommend taking calcium and vitamin-D supplement daily. Return to clinic in 4 months for follow-up or sooner if needed. Excluding procedure time, total of 40 minutes was spent reviewing previous medical records, consulting patient and charting. Man Ramírez MD * Larissa Mckeon [facility] - 12/14/2023 10:31 AM CDT Tanner James???s Reclast (zoledronic acid) Therapy Plan orders, including all supportive care orders, are about to or have . This patient is scheduled for infusion on 12/19. Plan expires in December. Please review, select, and sign the orders in this plan as appropriate if you would like your patient to continue with their infusion therapy. Thank you, Larissa Mckeon, PharmD, BCPS 10:31 AM 12/14/2023 documented in this encounter Plan of Treatment Upcoming Encounters Date Type Department Care Team (Late st Contact Info) Description 04/17/2024 12:00 PM CDT Appointment [facility] [address] [place] [address] Man Sánchez MD [facility] [place] [address] documented as of this encounter Visit Diagnoses Not on filedocumented in this encounter Care Teams Sterilization Specialist Relationship Specialty Start Date End Date Basilio Healy MD [facility] [address] [place] [address] PCP - General Family Practice 10/28/22 documented as of this encounter
--- OUTSIDE RECORDS SUMMARY | 2024-01-14 13:59 | XMS_ITS | Encounter Summary ---
Author Organization [facility] Address [address] [address] Care Team Providers Care Meat Blender Name Role Phone Basilio Healy MD Primary Care Provider [phone] Reason for Visit * Reason Comments Infusion * Infusion Therapy Plan (Routine) - Authorized Specialty Diagnoses / Procedures Referred By Contac t Referred To Contact Rheumatology Diagnoses Age-related osteoporosis without current pathological fracture (HRC) Man Sánchez MD [address] [place] [address] [facility] [address] [place] [address] Referral ID Status Reason Start Date Expiration Date V isits Requested Visits Authorized [id number] Authorized 01/07/2023 04/07/2024 [id number] Encounter Details Date Type Department Care Team (Latest Contact Info) Description 12/20/2023 9:17 AM CDT - 12/20/2023 11:59 PM CDT Hospital Encounter [facility] [address] [place] [address] Alycia Sosa MD [address] [place] [address] [id number] Age-related osteoporosis without current pathological fracture (HRC) (Primary Dx) Social History Tobacco Use Types Packs/Day Years [...] 12/20/2023 9:34 AM CD T Respiratory Rate - - Oxygen Saturation - - Inhaled Oxygen Concentration - - Weight - - Height - - Body Mass Index - - documented in this encounter Medications at Time of Discharge Medication Sig Dispensed Refills Start Date End Date albuterol 2.5 mg/3 mL, 0.083%, (PROVENTIL) nebulizer solutionIndications:Bro nchiectasis, uncomplicated (HRC) 1 Vial (2.5 mg) by Nebulization route every 6 hours as needed for Wheezing. 180 mL 11 04/23/2022 Apixaban (ELIQUIS OR) 2.5 mg two times a day. Ascorbic Acid (VITAMIN C OR) ascorbic acid (VITAMINC) 250 MG tablet Take 1 Tablet (250 mg) by mouth daily. Cholecalciferol 2000 UNITS Take 2,000 Int'l Units by mouth daily. 10/29/2014 DICLOFENAC SODIUM OP Apply 1 % topically every 4 hours. DULoxetine (CYMBALTA) 60 MG capsule Take 1 Capsule (60 mg) by mouth daily. ferrous gluconate (FERGON) 324 (38 Fe) MG tablet Take 1 Tablet (324 mg) by mouth daily. fluticasone-salmeterol (ADVAIR HFA) 115-21 mcg/actuation inhaler Inhale 2 Puffs two times a day. With spacer. Rinse mouth/gargle after use. 1 Each 11 11/04/2022 folic acid 1 MG tabletIndications:Rheum atoid arthritis involving multiple joints (HRC),High risk medication use Take 3 Tablets (3 mg) by mouth daily. 270 Tablet 3 08/09/2023 furosemide (LASIX) 40 MG tablet Take 1 Tablet (40 mg) by mouth daily. 05/02/2023 guaiFENesin (MUCINEX) 600 MG 12 hour release tablet Take 2 Tablets (1,200 mg) by mouth two times a day. 120 Tablet 11 12/17/2022 HYDROcodone-acetaminoph en (NORCO) 5-325 MG tabletIndications:Psori atic arthropathy (HRC) TAKE 1 TABLET BY MOUTH EVERY 6 HOURS NEEDED. FOR PAIN 90 Tablet 01/17/2020 ketoprofen (ORUDIS) 50 MG capsule Take 1 Capsule (50 mg) by mouth 4 times daily as needed for Pain. metoprolol succinate (TOPROL XL) 25 MG 24 hour release tablet Take 1 Tablet (25 mg) by mouth daily. 12/26/2022 Multiple Vitamins-Minerals (MULTIVITAMIN ADULT OR) Take 1 tablet by mouth daily (every 24 hours). 11/04/[address] 2 Drops into eye(s). predniSONE (DELTASONE) 5 MG tabletIndications:Rheum atoid arthritis involving multiple joints (HRC),High risk medication use 12.5 mg daily for 2 weeks then decrease by 2.5 mg every 2 weeks as tolerated. 90 Tablet 1 12/13/2023 Probiotic Product (SUPER PROBIOTIC OR) daily. rosuvastatin (CRESTOR) 5 MG tablet Take 1 Tablet (5 mg) by mouth daily. senna (SENOKOT) 8.6 MG tablet Take 1 Tablet by mouth daily. sulfaSALAzine (AZULFIDINE) 500 MG tabletIndications:Rheum atoid arthritis involving multiple joints (HRC),High risk medication use 1 tablet daily for a week then increase to 2 tablets daily for a week then increase to 2 tablets twice daily thereafter 120 Tablet 4 12/13/2023 valGANciclovir (VALCYTE) 450 MG tablet Take 1 Tablet (450 mg) by mouth daily. documented as of this encounter Progress Notes * Gopal Munroe RN - 12/20/2023 9:30 AM CDT Dx: Osteoporosis Provider: Man Sánchez MD Is this the first dose: Yes, education provided History of previous infusion reactions? no Premedications: None Patient arrived for Reclast infusion. Vital signs stable. No signs of infection. Tolerated infusion well. Discharged in stable condition. Will return to clinic for next infusion asscheduled in 1 year . documented in this encounter Plan of Treatment Upcoming Encounters Date Type Department Care Team (Late st Contact Info) Description 04/17/2024 12:00 PM CDT Appointment [facility] [address] [place] [address] Man Sánchez MD [address] [place] [address] documented as of this encounter Visit Diagnoses Diagnosis Age-related osteoporosis without current pathological fracture (HRC)- Primary Senile osteoporosis documented in this encounter Administered Medications Inactive Administered Medications - up to 3 most recent administrations Medication Order MAR Action Action Date Dose Rate Site zoledronic acid (RECLAST) premade IVPB 5 mg 5 mg, Intravenous, Administer over 20 Minutes, ONCE, On 12/20/23 at 1000, For 1 dose, Preparation: Single glove, gown; face mask optional Administration: Single glove Started 12/20/2023 9:51 AM CDT 5 mg documented in this encounter Care Teams Meat Blender Relationship Specialty Start Date End Date Basilio Healy MD [facility] [address] [place] [address] PCP - General Family Practice 10/28/22 documented as of this encounter
--- OUTSIDE RECORDS SUMMARY | 2024-01-14 13:59 | XMS_ITS | Encounter Summary ---
Author Organization [facility] Address [address] [place] [address] Care Team Providers Care Social Services Name Role Phone Basilio Healy MD Primary Care Provider [phone] Reason for Referral * (Routine) - New Request Specialty Diagnoses / Procedures Referred By Contac t Referred To Contact Procedures Pulmonary Function Test - Complete Shara Mitchell MD [address] [facility] [address] [place] [address] Referral ID Status Reason Start Date Expiration Date V isits Requested Visits Authorized [id number] New Request 12/13/2023 03/13/2025 1 1 Encounter Details Date Type Department Care Team (Latest Contact Info) Description 12/14/2023 12:47 PM CDT - 12/14/2023 11:59 PM CDT Hospital Encounter [facility] [address] Pulmonary [facility] [place] [address] Bronchiectasis, uncomplicated (HRC) (Primary Dx) Discharge Disposition: Home Social History Tobacco Use Types Packs/Day Years [...] on file documented as of this encounter Medications at Time of Discharge [...] MG tabletIndications:Rheum atoid arthritis involving multiple joints ([facility]),High risk medication use Take 3 Tablets (3 mg) by mouth daily. 270 Tablet 3 08/09/2023 furosemide (LASIX) 40 MG tablet Take 1 Tablet (40 mg) by mouth daily. 05/02/2023 guaiFENesin (MUCINEX) 600 MG 12 hour release tablet Take 2 Tablets (1,200 mg) by mouth two times a day. 120 Tablet 11 12/17/2022 HYDROcodone-acetaminoph en (NORCO) 5-325 MG tabletIndications:Psori atic arthropathy ([facility]) TAKE 1 TABLET BY MOUTH EVERY 6 [...] mouth daily. documented as of this encounter Plan of Treatment Upcoming Encounters Date Type Department Care Team (Late st Contact Info) Description 04/17/2024 12:00 PM CDT Appointment [facility] [address] [place], [place] [phone] Man Sánchez MD [address] [place] [address] documented as of this encounter Procedures Procedure Name Priority Date/Time Associated Diagnosis Comments COMPLETE PULMONARY FUNCTION TEST Routine 12/13/2023 8:05 AM CDT documented in this encounter Results * Pulmonary Function Test - Complete (12/13/2023 8:05 AM CDT) 12/13/2023 8:05 AM CDT Shara Mitchell MD PN PFT ORDERABLES PN MAGGYE documented in this encounter Visit Diagnoses Diagnosis Bronchiectasis, uncomplicated (HRC)- Primary documented in this encounter Care Teams Social Services Relationship Specialty Start Date End Date Basilio Healy MD [facility] [address] [place] [address] PCP - General Family Practice 10/28/22 documented as of this encounter
--- OUTSIDE RECORDS SUMMARY | 2024-01-14 14:00 | XMS_ITS | Encounter Summary ---
Author Organization [facility] Address [address] [place] [address] Care Team Providers Care Salvage Determiner Name Role Phone Basilio Healy MD Primary Care Provider Encounter Details Date Type Department Care Team (Late st Contact Info) Description 10/27/2023 Notes/Orders [place] [address] [place] [address]. [place], [place] [phone] Man Sánchez MD [address] [place] [id number] Social History Tobacco Use Types Packs/Day Years [...] Info) Description 04/17/2024 12:00 PM CDT Appointment [facility] [address] [place] [address] Man Sánchez MD [address] [place], [place] [address] documented as of this encounter Visit Diagnoses Not on filedocumented in this encounter Care Teams Salvage Determiner Relationship Specialty Start Date End Date Basilio Healy MD [facility] [address] [place] [address] PCP - General Family Practice 10/28/22 documented as of this encounter
--- OUTSIDE RECORDS SUMMARY | 2024-01-14 14:00 | XMS_ITS | Encounter Summary ---
Author Organization [facility] Address [address], [place] [address] Care Team Providers Care Access Consultant Name Role Phone Basilio Healy MD Primary Care Provider [phone] Reason for Visit * Reason Comments Follow-up Encounter Details Date Type Department Care Team (Late st Contact Info) Description 12/13/2023 1:00 PM CDT Office Visit [facility] [address] [place], [place] [phone] Man Snáchez MD [address] [place] [phone] Rheumatoid arthritis involving multiple joints (HRC) (Primary [...] * Patient Instructions* Man Sánchez MD - 12/13/2023 1:00 PM CDT Longstanding history rheumatoid arthritis and presence of generalized osteoarthritis. Patient has not been able tolerate the methotrexate secondary to recurrent infections predominantlyUTIs and recently pneumonia. Methotrexate was recently discontinued during her recent admission. Currently on prednisone 15 mg daily. Presence of pitting edema in the lower extremities. Patient has been complaining of weight gain. Patient has tried multiple immunosuppressive therapy in the past. Recommend a trial of sulfasalazine as a steroid sparing agent. Recommend 1 tablet daily for week then increase to tablets daily the 2nd week then increase to 2 tablets twice daily thereafter. Continue folic acid 3 mg daily. Will do blood work today. Recommend blood work in 1 month then in 2-3 months thereafter while on sulfasalazine. Recommend slow taper prednisone by 2.5 mg every 2 weeks if tolerated. Patient received steroid injection in the left knee. Recommend topical Voltaren gel 3-4 times daily. Tylenol as needed for joint pain. History of osteoporosis and chronic systemic steroid use. Recommend starting treatment with Reclast infusions once a year. Recommend taking calcium and vitamin-D supplement daily. Return to clinic in 4 months for follow-up or sooner if needed. documented in this encounter Progress Notes * Man Sánchez MD - 12/13/2023 1:00 PM CDT Rheumatology Follow up Note Chief Complaint Patient presents with Follow-up HPI: Tanner James is a 78 y.o. female with medical history as stated below including longstanding history of seronegative inflammatory arthritis/rheumatoid arthritis and generalized osteoarthritis is coming today for follow-up accompanied by her daughter. Recently patient was readmitted in the hospital with increased shortness of breath and lethargy. Imaging studies showed increased ground-glass opacity in the lungs. A concern for hospital-acquired pneumonia was raised. Also a concern for methotrexate toxicity versus interstitial lung disease related to rheumatoid arthritis also was raised. I was contacted by the hospitalist Dr.Thomas Vasquez. The decision was made to hold the methotrexate and increase the prednisone dose. Currently patient has been on 15 mg daily in the last month. Patient has been complaining of weight gain. Complains of bilateral shoulder pain and left knee pain. Currently on Lyrica and Cymbalta for her back pain and sciatica. Was not able to get the Reclast infusions secondary to recent hospitalization. [facility] Patient has tried multiple immunosuppressive drugs including Humira, Orencia, Actemra, Remicade, rituximab, Rinvoq and recently Enbrel. Has been on methotrexate on off for many years. Patient was on Rinvoq only for a year than it was discontinued secondary to a history of PE. Patient was on Enbrel weekly injection, methotrexate 6 tablets once week and low-dose prednisone 5 mg daily until December of 2021 when patient was admitted at [facility] with a clinical presentation of shortness of breath and upper respiratory tract infection. Was transferred to [facility] and[facility] for pneumonia. Presence of pleural effusion for which she had to have a chest tube placed. Methotrexate and Enbrel was put on hold. Methotrexate was resumed a few months later and patient hasbeen on methotrexate on and off. Patient Active Problem List Diagnosis Psoriatic arthropathy [...] Morbid obesity with BMI of 40.0-44.9, adult (HRC) 11/15/2015 Pneumonia 12/10/2016 with PE Pulmonary embolism (HRC) 12/14/2016 Rheumatoid arthritis(714.0) ([facility]) 12/25/2008 Shoulder impingement 04/03/2013 Past Surgical History: Procedure Laterality Date COLONOSCOPY W/ POLYPECTOMY ([facility]) 10/26/2018 2 specimens (5 polyp). 3 year follow up ESOPHAGOGASTRODUODENOSCOPY ([facility]) 04/14/09 eswl LUMBAR FUSION ([facility]) 04/2010 lami and fusion; Dr Corea Outpatient Encounter Medications as of 12/13/2023 Medication Sig Dispense Refill albuterol 2.5 mg/3 mL, 0.083%, (PROVENTIL) nebulizer solution 1 Vial (2.5 mg) by Nebulization routeevery 6 hours as needed for Wheezing. (Patient not taking: Reported on 12/13/2023) 180 mL 11 Apixaban (ELIQUIS OR) 2.5 mg two times a day. Ascorbic Acid (VITAMIN C OR) ascorbic acid (VITAMINC) 250 MG tablet Take 1 Tablet (250 mg) by mouth daily. Cholecalciferol 2000 UNITS Take 2,000 Int'l Units by mouth daily. DICLOFENAC SODIUM OP Apply 1 % topically [...] a day. (Patient not taking: Reported on 12/13/2023) 120 Tablet 11 HYDROcodone-acetaminophen (NORCO) 5-325 MG tablet TAKE 1 TABLET BY MOUTH EVERY 6 HOURS NEEDED. FOR PAIN 90 Tablet 0 ketoprofen (ORUDIS) 50 MG capsule Take 1 [...] 1 Tablet (20 mg) by mouth daily. (Patient not taking: Reportedon 12/13/2023) PREDNISOLONE ACETATE OP Place 2 Drops into eye(s). predniSONE (DELTASONE) 5 MG tablet 12.5 mg daily for 2 weeks then decrease by 2.5 mg every 2 weeks as tolerated. 90 Tablet 1 Probiotic Product (SUPER PROBIOTIC OR) daily. rosuvastatin (CRESTOR) 5 MG tablet Take 1 Tablet (5 mg) by mouth daily. senna (SENOKOT) 8.6 MG tablet Take 1 Tablet by mouth daily. sodium chloride 3 % nebulizer solution Inhale 4 mL two times a day. (Patient not taking: Reported on 12/13/2023) 240 mL 11 sulfaSALAzine (AZULFIDINE) 500 MG tablet 1 tablet daily for a week then increase to 2 tablets dailyfor a week then increase to 2 tablets twice daily thereafter 120 Tablet 4 valGANciclovir (VALCYTE) 450 MG tablet Take 1 Tablet (450 mg) by mouth daily. [DISCONTINUED] methotrexate 2.5 MG tablet Take 7 Tablets (17.5 mg) by mouth once every week. (Patient not taking: Reported on 12/13/2023) 91 Tablet 1 [DISCONTINUED] predniSONE (DELTASONE) 5 MG tablet Take 1.5 Tablets (7.5 mg) by mouth daily. 135 Tablet 1 No facility-administered encounter medications on file as of 12/13/2023. Allergies Allergen Reactions Nsaids Other, see comments HUT Reaction: GI Bleeding; HUT Severity: High; [facility] Noted: [id number] Levaquin [Levofloxacin] Other, see comments Muscles snapped [...] murmur. Musculoskeletal Exam: Normal muscle bulk. Mild puffiness between the 2nd, 3rd and MCPs bilaterally.No significant signs of active synovitis. No joint effusion. Full range of motion in all 4 extremities. Normal muscle strength in all 4 extremities. Skin: no rash, pitting edema in the lower extremities below the knees down to the dorsum feet bilaterally. Neurologic Exam: Nonfocal, normal gross motor movement, tone, and coordination. No tremor. Lab: Lab Results Component Value Date EXT RSLT - WBC 9.16 08/24/2023 RBC 3.02 (L) 01/07/2023 HEMOGLOBIN 11.7 (L) 11/16/2023 HCT 33.2 (L) 01/07/2023 MCV 111 (H) 11/16/2023 RDW 17.1 (H) 01/07/2023 EXT RSLT - PLATELET COUNT 96 (L) 08/24/2023 Lab Results Component Value Date EXT RSLT - AST 39 (H) 08/24/2023 Lab Results Component Value Date EXT RSLT - CREATININE 1.0 08/24/2023 Assessment and Plan: Longstanding history of rheumatoid [...] consulting patient and charting. Man Sánchez. Rheumatology Sheila Whatley 12/13/2023 This note consists of symbols derived from keyboarding, and voice recognition software. As a result, wrong word or '[id number]' substitutions may have occurred due to the inherent limitations of voice recognition software. There may be errors in the script that have gone undetected. Please consider this when interpreting information found in this chart. documented in this encounter Plan of Treatment Upcoming Encounters Date Type Department Care Team (Late st Contact Info) Description 04/17/2024 12:00 PM CDT Appointment [facility] [address] [place], [place] [phone] Man Sánchez MD [facility] [place], [place] [phone] Scheduled Orders Name Type Priority Associated Diagnoses Orde r Schedule ALT (SGPT) (every 2-3 months) Lab Routine Rheumatoid arthritis involving multiple joints (HRC) High risk medication use PRN for 6 Occurrences starting 12/13/2023 until 12/12/2024 AST (every 2-3 months) Lab Routine Rheumatoid arthritis involving multiple joints (HRC) High risk medication use PRN for 6 Occurrences starting 12/13/2023 until 12/12/2024 CBC -W/Diff (every 2-3 months) Lab Routine Rheumatoid arthritis involving multiple joints (HRC) High risk medication use PRN for 6 Occurrences starting 12/13/2023 until 12/12/2024 Creatinine / GFR (every 2-3 months) Lab Routine Rheumatoid arthritis involving multiple joints (HRC) High risk medication use PRN for 6 Occurrences starting 12/13/2023 until 12/12/2024 documented as of this encounter Results * Sedimentation Rate (ESR) (12/13/2023 1:56 PM CDT) Sedimentation Rate 2 0 - 20 mm/hr 12/13/2023 2:32 PM CDT [facility] Blood Venipuncture / Unknown 12/13/2023 1:56 PM CDT 12/13/2023 1:56 PM CDT Man Sánchez MD LAB_1 Performing Organization Address [facility] de Phone Number [facility] [id number] [place], [place] [phone] * C-Reactive Protein (12/13/2023 1:56 PM CDT) Pathologist [facility] C-Reactive Protein <0.5 0.0 - 0.5 mg/dL 12/13/2023 5:21 PM CDT [facility] Blood Venipuncture / Unknown 12/13/2023 1:56 PM CDT 12/13/2023 1:56 PM CDT Man Sánchez MD LAB_1 Performing Organization Address [facility] de Phone Number [place] [phone] documented in this encounter Visit Diagnoses Diagnosis Rheumatoid arthritis involving multiple joints (HRC)- Primary High risk medication use Encounter for long-term (current) use of other medications Primary osteoarthritis of both knees Primary localized osteoarthrosis, lower leg Current chronic use of systemic steroids Age related osteoporosis, unspecified pathological fracture presence (HRC) documented in this encounter Care Teams Access Consultant Relationship Specialty Start Date End Date Basilio Healy MD [facility] [address] [place] [address] PCP - General Family Practice 10/28/22 documented as of this encounter
--- OUTSIDE RECORDS SUMMARY | 2024-01-14 14:00 | XMS_ITS | Encounter Summary ---
Author Organization [facility] Address [address] [place] [address] Care Team Providers Care Inspector Hairspring Truing Name Role Phone Basilio Healy MD Primary Care Provider [phone] Reason for Visit * Reason Comments Refill Encounter Details Date Type Department Care Team (Late st Contact Info) Description 02/06/2016 Refill [place] [address] [address]. [place], [place] [phone] Swapnil Henley MD [address] [place] [phone] Refill Social History Tobacco Use Types Packs/Day Years Used Date Smoking Tobacco: Never Assessed Sex and Gender Information Value Date Recorded Sex Assigned at Not on file Gender Identity Not on file Sexual Orientation Not on file documented as of this encounter Plan of Treatment Upcoming Encounters Date Type Department Care Team (Late Contact Info) Description 04/17/2024 12:00 PM CDT Appointment [facility] [address] [place] [address] Man Sán[place] [address] [place] [phone] documented as of this encounter Visit Diagnoses Not on filedocumented in this encounter Care Teams Inspector Hairspring Truing Relationship Specialty Start Date End Date Basilio Healy MD [facility] [address] [place] [address] PCP - General Family Practice 10/28/22 documented as of this encounter
--- OUTSIDE RECORDS SUMMARY | 2024-01-14 14:00 | XMS_ITS | Encounter Summary ---
Author Organization [facility] Address [address] [place] [address] Care Team Providers Care Sourcing Assistant Name Role Phone Basilio Healy MD Primary Care Provider [phone] Reason for Visit * (Routine) - Incomplete Specialty Diagnoses / Procedures Referred By Contac t Referred To Contact Procedures Foreign Image(s) CT Angio Chest Provider, [facility] [address] [place] [address] Referral ID Status Reason Start Date Expiration Date V isits Requested Visits Authorized [id number] Incomplete 11/02/2023 01/31/2025 1 1 Encounter Details Date Type Department Care Team (Late st Contact Info) Description 10/26/2023 10:40 AM CDT Ancillary Procedure Radiology PACS [address] [place] [address] Provider, [facility] [address] [place] [address] Social History Tobacco Use Types Packs/Day Years [...] Info) Description 04/17/2024 12:00 PM CDT Appointment [facility] [address] [place], [place] [phone] Man Sánchez MD [address] [place], [place] [address] documented as of this encounter Procedures Procedure [...] on filedocumented in this encounter Care Teams Sourcing Assistant Relationship Specialty Start Date End Date Basilio Healy MD [facility] [address] [place] [address] PCP - General Family Practice 10/28/22 documented as of this encounter
--- OUTSIDE RECORDS SUMMARY | 2024-01-14 14:00 | XMS_ITS | Encounter Summary ---
Author Organization [facility] Address [address] [place] [address] Care Team Providers Care Ventilated Rib Fitter Name Role Phone Basilio Healy MD Primary Care Provider [phone] Reason for Visit * Reason Comments Hospital / Follow Up Encounter Details Date Type Department Care Team (Late st Contact Info) Description 10/27/2023 Telephone [facility] Pulmonary Medicine [address] [place], [place] [phone] Shara Mitchell MD [address] [facility] [address] [place], [place] [phone] Hospital / Follow Up Social History Tobacco [...] email [facility]. Frontline, Please contact pt to reschedule. Thank you * Shara Mitchell MD - 10/27/2023 11:28 AM CDT I called and spoke with Dr. Vasquez, who is currently caring for Tanner at [facility]. She was recently admitted for a UTI and improved. She was at a [facility] but developed a fever and hypoxia and [...] to her visit. Thanks. * Ame Asencio, PEEWEE - 10/27/2023 9:27 AM CDT Incoming call [...] Info) Description 04/17/2024 12:00 PM CDT Appointment [facility] [address] [place], [place] [phone] Man Sánchez MD [address] [place] [phone] documented as of this encounter Visit Diagnoses Not on filedocumented in this encounter Care Teams Ventilated Rib Fitter Relationship Specialty Start Date End Date Basilio Healy MD [facility] [address] [place] [address] PCP - General Family Practice 10/28/22 documented as of this encounter
--- OUTSIDE RECORDS SUMMARY | 2024-01-14 14:00 | XMS_ITS | Encounter Summary ---
Author Organization [facility] Address [address], [place] [address] Care Team Providers Care Tractor Technician Name Role Phone Basilio Healy MD Primary Care Provider [phone] Encounter Details Date Type Department Care Team (Late st Contact Info) Description 12/13/2023 3:10 PM CDT Lab Visit [facility] [address] [place], [place] [address] Rheumatoid arthritis involving multiple joints (HRC); High [...] Info) Description 04/17/2024 12:00 PM CDT Appointment [facility] [address] [place], [place] [address] Man Sánchez MD [facility] [place], [place] [phone] documented as of this encounter Procedures Procedure Name Priority Date/Time Associated Diagnosis Comments C-REACTIVE PROTEIN Routine 12/13/2023 1: 56 PM CDT Rheumatoid arthritis involving multiple joints (HRC) High risk medication use SEDIMENTATION RATE (ESR) Routine 12/13/2023 1:56 PM CDT Rheumatoid arthritis involving multiple joints (HRC) High risk medication use documented in this encounter Results * Sedimentation Rate (ESR) (12/13/2023 1:56 PM CDT) Sedimentation Rate 2 0 - 20 mm/hr 12/13/2023 2:32 PM CDT [facility] Blood Venipuncture / Unknown 12/13/2023 1:56 PM CDT 12/13/2023 1:56 PM CDT Man Sánchez MD LAB_1 Performing Organization Address [facility] Co de Phone Number [address] [phone] * C-Reactive Protein (12/13/2023 1:56 PM CDT) Pathologist [facility] C-Reactive Protein <0.5 0.0 - 0.5 mg/dL 12/13/2023 5:21 PM CDT [facility] Blood Venipuncture / Unknown 12/13/2023 1:56 PM CDT 12/13/2023 1:56 PM CDT Man Sánchez MD LAB_1 Performing Organization Address [facility]/ZIP Co de Phone Number [facility] [address] [place] [address] documented in this encounter Visit Diagnoses Diagnosis Rheumatoid arthritis involving multiple joints (HRC) High risk medication use Encounter for long-term (current) use of other medications documented in this encounter Care Teams Tractor Technician Relationship Specialty Start Date End Date Basilio Healy MD [facility] [address] [place] [address] PCP - General Family Practice 10/28/22 documented as of this encounter
== END 2024-01-14 14:39 | disposition home or self-care (01) ==
PROVIDERS: Emergency Provider Emergency Medicine Emergency Medical Services; PCP Family Medicine
DX: M19.012 Primary osteoarthritis, left shoulder (principal); M16.12 Unilateral primary osteoarthritis, left hip; W19.XXXA Unspecified fall, initial encounter
CPT/HCPCS: 73030; 73502; 99283; 99284

== ENCOUNTER 2024-01-14 18:52 | Inpatient (IN) | payer MEDICARE, OTHER, SELFPAY ==
[2024-01-14] VITALS (18 sets, daily range): BP systolic 81–143; BP diastolic 43–91; PULSE 73–99; RESP 18; TEMP 36.1; O2SAT 53–100; BMI 35.4
--- NOTE | 2024-01-14 19:32 | ED.GENADULT ---
HPI - General Adult General Chief complaint: Weakness Stated complaint: short of breath, very confused since visit Time Seen by Provider: 01/14/24 18:57 History of Present Illness HPI narrative: This 78-year-old female returns to the emergency department after she was seen by me here 3 or 4 hours ago. She was seen earlier today because of a fall and was happy to hear of negative x-rays and okay to return home. This is the 2nd visit she has had this week because of a fall. She comes back now with her son who states that she had symptoms of confusion and shortness of breath while on the way home. He measured a temperature at home of 94.7? F. She returns back here with a systolic pressure of 90 and a repeat pressure in the low 80s. She does not report any cough. They do report a suspicion of urinary tract infection. Related Data Home Medications ?Medication ?Instructions ?Recorded ?Confirmed Lactobacillus acidophilus 0.5 mg 100 mmu cells PO DAILY 12/22/21 01/12/24 (100 million cell) tablet folic acid 1 mg tablet 3 mg PO DAILY 12/22/21 01/12/24 ascorbic acid (vitamin C) 500 mg 1 g PO DAILY 01/16/22 01/12/24 tablet cholecalciferol (vitamin D3) 50 50 mcg PO DAILY 01/16/22 01/12/24 mcg (2,000 unit) capsule multivitamin 1 tab PO QAM 01/16/22 12/29/23 ferrous gluconate 324 mg (38 mg 324 mg PO DAILY 10/21/23 01/12/24 iron) tablet rosuvastatin 5 mg tablet 5 mg PO HS 10/26/23 01/12/24 valganciclovir 450 mg tablet 450 mg PO DAILY 10/26/23 01/12/24 prednisone 5 mg tablet 12.5 mg PO DAILY 12/29/23 01/12/24 sulfasalazine 500 mg tablet 0.5 g PO QDAY 12/29/23 12/29/23 methotrexate sodium 2.5 mg tablet 17.5 mg PO 01/12/24 paroxetine HCl 20 mg tablet 20 mg PO DAILY 01/12/24 01/12/24 Previous Rx's ?Medication ?Instructions ?Recorded apixaban 5 mg tablet (Eliquis) 2.5 mg (1/2 x 5 mg) PO BID #90 tabs 08/24/23 metoprolol succinate 25 mg 25 mg PO BID #180 tabs 08/24/23 tablet,extended release 24 hr diclofenac sodium 1 % topical gel 2 g topical QID PRN #100 grams 10/25/23 (Voltaren Arthritis Pain) oxycodone 5 mg tablet 2.5 mg (1/2 x 5 mg) PO Q4H PRN 10/29/23 pain #30 tabs duloxetine 60 mg capsule,delayed 60 mg PO DAILY #90 caps 12/03/23 release pregabalin 50 mg capsule 50 mg PO BID #180 caps 12/03/23 potassium chloride 10 mEq 10 meq PO DAILY #90 caps 12/10/23 capsule,extended release hydrocodone 5 mg-acetaminophen 325 1 tab PO BID PRN pain #60 tabs 12/29/23 mg tablet tramadol 50 mg tablet 50 mg PO BID PRN pain #60 tabs 12/29/23 furosemide 40 mg tablet 40 mg PO DAILY #90 tabs 12/31/23 hydrocodone 5 mg-acetaminophen 325 1 tab PO Q4-6H PRN pain #20 tabs 01/14/24 mg tablet Allergies Allergy/AdvReac Type Severity Reaction Status Date / Time NSAIDS (Non-Steroidal Allergy Severe GI bleed Verified 01/14/24 19:22 Anti-Inflamma terbinafine Allergy Intermediate Headache Verified 01/14/24 19:22 levofloxacin AdvReac Severe tendon Verified 01/14/24 19:22 rupture Review of Systems Status of ROS: Reports: 10 or more systems reviewed and unremarkable except as noted in History and below Narrative: Constitutional: No fevers, no weight gain or loss. Eyes: No discharge. No vision changes. HENT: No congestion, no sore throat, no ear pain. Cardiovascular: No chest pain, no palpitations. Respiratory: No shortness of breath, no wheezes, no cough. Gastrointestinal: No abdominal pain, no vomiting, no diarrhea. Genitourinary: No dysuria, no hematuria. Musculoskeletal: Normal range of motion. Skin: No rashes, no pruritis. Neurological: No weakness, sensory change, speech change. She feels lightheadedness. She reports some confusion. Endo/Heme/Allergies: No bruising or bleeding. No polydipsia. Pysch: no suicidality, no anxiety, no insomnia. All other systems reviewed and are negative. [facility] Medical History Congestive heart failure ?I50.9 - Heart failure, unspecified (ICD-10) Non-ST elevated myocardial infarction (non-STEMI) ?I21.4 - Non-ST elevation (NSTEMI) myocardial infarction (ICD-10) Immunocompromised state due to drug therapy ?D84.821 - Immunodeficiency due to drugs (ICD-10) ?Z79.899 - Other termite treater (current) drug therapy (ICD-10) 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 - Aneurysm of artery of lower extremity (ICD-10) Obesity (BMI 30.0-34.9) ?E66.9 - Obesity, unspecified (ICD-10) Alcohol use disorder ?F10.90 - Alcohol use, unspecified, uncomplicated (ICD-10) Pulmonary embolism ?I26.99 - Other pulmonary embolism without acute cor pulmonale (ICD-10) Gastrointestinal hemorrhage ?K92.2 - Gastrointestinal hemorrhage, unspecified (ICD-10) Aortic stenosis, severe ?I35.0 - Nonrheumatic aortic (valve) stenosis (ICD-10) Pleural effusion ?J90 - Pleural effusion, not elsewhere classified (ICD-10) History of kidney stones ?Z87.442 - Personal history of urinary calculi (ICD-10) Mitral annular calcification ?I05.9 - Rheumatic mitral valve disease, unspecified (ICD-10) Surgical History Status post transcatheter aortic valve replacement (TAVR) using bioprosthesis ?Z95.3 - Presence of xenogenic heart valve (ICD-10) S/P cataract extraction ?Z98.49 - Cataract extraction status, unspecified eye (ICD-10) S/P cholecystectomy ?Z90.49 - Acquired absence of other specified parts of digestive tract (ICD-10) History of left nephrectomy ?Z90.5 - Acquired absence of kidney (ICD-10) History of lumbar fusion (04/2010) ?Z98.1 - Arthrodesis status (ICD-10) History of lithotripsy ?Z98.890 - Other specified postprocedural states (ICD-10) Family History Mother Breast cancer, Onset Age: 70 Sister Breast cancer, Onset Age: 35 Social History Narrative: Discharged yesterday to [address] [place] [address]. Prior to the recent admission she has been living independently at [facility]. Struggling with providing self cares. Code status is DNR DNI. What is your current living situation?: I presently have a place to live Problems where you live: no known problems Problems where you live details: n/a In the past 12 months, utilities in danger of being shut off: no In past 12 months, lack of transportation kept you from medical appts, meetings, work, or getting things needed for daily living: no In the past 12 mos, have been you worried that your food would run out before you had money to buy more?: never true In the past 12 mos, the food you bought just didn't last and you didn't have money to buy more?: never true Highest level of school completed/degree received: high school graduate Smoking Status: Never smoker Do you use any of these nicotine containing products: None Second hand tobacco smoke exposure: Yes How often do you have a drink containing alcohol: never How often do you have six or more drinks on one occasion: Never AUDIT-C Alcohol total score: 0 Non-prescribed substance use: denies use Caffeine: Yes How often does anyone, including family, friends and others, physically hurt you: never How often does anyone, including family, friends and others, insult or talk down to you: never How often does anyone, including family, friends and others, threaten you with harm: never How often does anyone, including family, friends and others, scream or curse at you: never Little interest or pleasure in doing things: more than half the days Feeling down, depressed, or hopeless: more than half the days service: No Exam Narrative: Exam Narrative: Constitutional: Well-developed, well-nourished, no acute distress. HEENT: Normocephalic, atraumatic. Neck: Normal range of motion. Nontender. Supple. Heart: Regular. No murmurs. Normal rate. Intact distal pulses. Lungs: Clear to auscultation. No chest discomfort. No wheezes, rhonchi, or rales. Abdomen: Normal bowel sounds. Nontender. No rebound tenderness. Genitalia: Deferred. Back: No midline tenderness. Normal range of motion. Extremities: Chronic pain in her hips and shoulders with decreased range of motion. Bilateral pedal edema, right greater than left. Skin: Intact. No rash. Warm. No erythema or pallor. Neurologic: No altered sensation. No weakness. Alert and oriented. Psychiatric: No suicidality. No anxiety or depression. No insomnia. Nursing notes and vitals signs are reviewed. Const: Vital Signs, click to edit/add: Vital Signs - 24 hr 01/14/24 19:20 Temperature 96.9 F L Pulse Rate [Right Pulse Oximeter] 99 Respiratory Rate 18 Blood Pressure [Ri ght Upper Arm] 91/63 Pulse Oximetry 99 Oxygen Delivery Me thod Room Air Course Vital Signs Vital signs: Initial Vital Signs Temperature 96.9 F L 01/14/24 19:20 Temperature Source Temporal Artery Scan 01/14/24 19:20 Pulse Rate 99 01/14/24 19:20 Respiratory Rate 18 01/14/24 19:20 Blood Pressure 91/63 01/14/24 19:20 Blood Pressure Mean 72 01/14/24 19:20 Blood Pressure Position Supine 01/14/24 19:20 Pulse Oximetry 99 01/14/24 19:20 Oxygen Delivery Method Room Air 01/14/24 19:20 Vital Signs Temperature 96.9 F L 01/14/24 19:20 Pulse Rate 99 01/14/24 19:20 Respiratory Rate 18 01/14/24 19:20 Blood Pressure 91/63 01/14/24 19:20 Pulse Oximetry 99 01/14/24 19:20 Oxygen Delivery Method Room Air 01/14/24 19:20 Temperature 96.9 F L 01/14/24 19:20 Pulse Rate 99 01/14/24 19:20 Respiratory Rate 18 01/14/24 19:20 Blood Pressure 91/63 01/14/24 19:20 Pulse Oximetry 99 01/14/24 19:20 Oxygen Delivery Method Room Air 01/14/24 19:20 Medications Administered Medications: Discontinued Medications Generic Name Dose Route Start Last Admin Trade Name Freq PRN Reason Stop Dose Admin Sodium Chloride 1,000 mls @ 1,000 mls/hr 01/14/24 19:30 01/14/24 20:23 0.9 % Sodium Chloride 1000 Ml IV 01/14/24 20:29 1,000 mls/hr .Q1H MICHELLE Administration Medical Decision Making MDM Narrative Medical decision making narrative: This patient comes in several hours after being discharged from here but had distinct change of symptoms on the way home where she became confused and did not feel well. She arrives here with lower blood pressures. Her initial blood pressure was a systolic value of 91 and repeat pressure was at 81. I placed order for IV and labs including fluids. An IV was established and she began to get a L of normal saline but labs were not so easily acquired. Blood cultures and lactate levels were not acquired for over 2 hours after the patient arrived. I did order another L of normal saline but was not unable to make progress for a workup of possible sepsis due to difficulty acquiring blood from the patient. I did speak with the hospitalist teacher selection specialist, Dr. Vasquez, who agrees to admit the patient regardless of lab results at this time. This is happening at the end of my shift so he will assume care the patient and continue the possible sepsis workup. Lab Data Labs: Lab Results 01/14/24 01/14/24 01/14/24 Range/Units 19:31 20:10 21:05 WBC 19.16 H (4.50-11.00) K/uL RBC 2.90 L (4.00-5.20) m/uL Hgb 9.4 L (12.0-16.0) gm/dL Hct 30.4 L (33.0-51.0) % MCV 105 H (80-100) fL MCH 32 (26-34) pg MCHC 31 L (32-36) gm/dL RDW Coeff of Navneet 14.4 (11.5-15.5) % Plt Count 112 L (140-440) K/uL Neut % (Auto) 84.9 H (42.0-72.0) % Lymph % (Auto) 6.4 L (20-44) % [place] % (Auto) 6.5 (0.0-11.0) % Eos % (Auto) 0.0 (0.0-7.0) % Baso % (Auto) 0.3 (0.0-3.0) % Neut # (Auto) 16.30 H (1.7-7.0) K/uL Lymph # (Auto) 1.20 (0.90-2.90) K/uL [place] # (Auto) 1.20 H (0.00-0.90) K/UL Eos # (Auto) 0.00 (0.00-0.50) K/uL Baso # (Auto) 0.10 (0.00-0.30) K/uL Abs Immat Gran (auto) 0.40 H (0.00-0.30) K/uL Imm/Tot Granulo (auto) 1.9 % Lactate 5.9 H* (0.5-1.9) mmol/L SARS-CoV-2 (PCR) Negative SARS-CoV-2 (Negative) Influenza Type A (PCR) Negative PCR FLU A (Negative) Influenza Type B (PCR) Negative PCR FLU B (Negative) RSV (PCR) Negative PCR RSV (Negative) POC Troponin I 0.04 (0.01-0.04) ng/ml ECG Data Attestation: I personally reviewed and interpreted this ECG as follows: Interpretation: Normal sinus rhythm. Rate is 85 beats per minute. There are no ST or T-wave abnormalities. Discharge Plan Discharge Clinical Impression: Generalized weakness Chronic pain Qualifiers: Chronic pain type: chronic pain syndrome Qualified Code(s): G89.4 - Chronic pain syndrome Patient Disposition: Admitted As Inpatient Condition: Unchanged Prescriptions: No Action pregabalin 50 mg capsule 50 mg PO BID Qty: 180 3RF duloxetine 60 mg capsule,delayed release(DR/EC) 60 mg PO DAILY Qty: 90 3RF prednisone 5 mg tablet 12.5 mg PO DAILY sulfasalazine 500 mg tablet 0.5 g PO QDAY Rx Instructions: give with food (meal/snack) hydrocodone-acetaminophen 5-325 mg tablet 1 tab PO BID PRN (Reason: pain) Qty: 60 0RF tramadol 50 mg tablet 50 mg PO BID PRN (Reason: pain) Qty: 60 2RF cholecalciferol (vitamin D3) 50 mcg (2,000 unit) capsule 50 mcg PO DAILY multivitamin Tablet 1 tab PO QAM ascorbic acid (vitamin C) 500 mg tablet 1 g PO DAILY metoprolol succinate 25 mg tablet extended release 24 hr 25 mg PO BID Qty: 180 3RF Eliquis 5 mg tablet 2.5 mg PO BID Qty: 90 3RF folic acid 1 mg tablet 3 mg PO DAILY Lactobacillus acidophilus 0.5 mg (100 million cell) tablet 100 mmu cells PO DAILY ferrous gluconate 324 mg (38 mg iron) tablet 324 mg PO DAILY diclofenac sodium [Voltaren Arthritis Pain] 1 % gel 2 g topical QID PRNQty: 100 0RF Rx Instructions: apply to single elbow, wrist or hand; for hand includes palm/fingers/back of hand valganciclovir 450 mg tablet 450 mg PO DAILY rosuvastatin 5 mg tablet 5 mg PO HS oxycodone 5 mg tablet 2.5 mg PO Q4H PRN (Reason: pain) Qty: 30 0RF methotrexate sodium 2.5 mg tablet 17.5 mg PO paroxetine HCl 20 mg tablet 20 mg PO DAILY hydrocodone-acetaminophen 5-325 mg tablet 1 tab PO Q4-6H PRN (Reason: pain) Qty: 20 0RF potassium chloride 10 mEq capsule, extended release 10 meq PO DAILY Qty: 90 3RF furosemide 40 mg tablet 40 mg PO DAILY Qty: 90 3RF Follow Up/Referrals: Kyle Healy MD [Primary Care Provider] -
[2024-01-14] MEDS: 0.9 % SODIUM CHLORIDE 1000 ml 1,000 ML IV (20:23)
[2024-01-14 20:40] LABS: Troponin, Point-of-Care* 0.04 ng/ml (0.01-0.04)
[2024-01-14 20:58] LABS: PCR FLU A Negative PCR FLU A (Negative); PCR FLU B Negative PCR FLU B (Negative); PCR RSV Negative PCR RSV (Negative); SARS PCR* Negative SARS-CoV-2 (Negative)
[2024-01-14 21:19] LABS: Basophils Percent Auto 0.3 % (0.0-3.0); Hematocrit 30.4 % (33.0-51.0); Hemoglobin* 9.4 gm/dL (12.0-16.0); Immature Granulocytes Pct Auto 1.9 %; Lymphocytes Percent Auto 6.4 % (20-44); Mean Corpuscular HGB Conc 31 gm/dL (32-36); Mean Corpuscular Hemoglobin 32 pg (26-34); Mean Corpuscular Volume 105 fL (80-100); Monocytes Percent Auto 6.5 % (0.0-11.0); Neutrophils Percent Auto 84.9 % (42.0-72.0); Platelet Count* 112 K/uL (140-440); RDW Coefficient of Variation % 14.4 % (11.5-15.5); White Blood Count* 19.16 K/uL (4.50-11.00)
[2024-01-14 21:22] LABS: Lactate* 5.9 mmol/L (0.5-1.9); Slide Review Reflex No
[2024-01-14 21:34] LABS: Chloride* 108 mmol/L (96-114); Potassium* 4.8 mmol/L (3.6-5.1); Sodium* 139 mmol/L (135-149)
[2024-01-14 21:36] LABS: Creatinine* 1.7 mg/dL (0.5-1.5); Est. Creatinine Clearance* 23.29; Estimated Glomerular Filt Rate 31 ml/min
[2024-01-14 21:37] LABS: Anion Gap 12 mEq/L (7-15); Blood Urea Nitrogen* 34 mg/dL (7-30); Calcium* 7.9 mg/dL (8.4-10.6); Carbon Dioxide* 19 mmol/L (20-32); Glucose* 145 mg/dL (60-115)
[2024-01-14 21:43] LABS: Appearance Urine Slightly Cloudy (Clear); Bilirubin Urine Negative (Negative); Blood Urine Negative (Negative); Color Urine Yellow (Yellow); Glucose Urine Negative (Negative); Ketones Urine Negative (Negative); Leukocyte Esterase Urine Negative (Negative); Nitrite Urine Negative (Negative); Protein Urine 2+ (Negative); Specific Gravity Urine >= 1.030 (1.000-1.030); Urobilinogen Urine 0.2 (0.2-1.0); pH Urine 5.5 (5.0-8.5)
[2024-01-14 21:49] LABS: Bacteria Urine Few; RBC Urine 0-2 (0-2); WBC Urine 0-2 (0-5)
--- NOTE | 2024-01-14 22:08 | CRLHL7_ITS ---
For Patients: As a result of the Century Cures Act, medical imaging exams and procedure reports are released immediately into your electronic medical record. You may view this report before your referring provider. If you have questions, please contact your health care provider. INDICATION: Sepsis. TECHNIQUE: Multiplanar CT examination of the chest, abdomen and pelvis was performed after the administration 98 mL of Isovue 370 intravenous contrast. COMPARISON: Prior CT examinations of the abdomen and pelvis are unavailable on PACS at time of dictation. FINDINGS: CHEST: Lower neck: Visualized thyroid appears unremarkable. Cardiovascular: Normal heart size. No significant atherosclerotic calcifications of the thoracic aorta. Normal caliber of the thoracic aorta and pulmonary artery. No CT evidence of acute aortic injury. Coronary arterial calcifications. Mitral annular calcifications. No large central pulmonary embolus. Ascending aortic stent graft. Mediastinum and lymph nodes: No pathologic lymphadenopathy by size criteria. Airways: The trachea remains patent and midline. Mild diffuse peribronchial wall thickening. Lungs: No focal consolidation. Subpleural reticulations likely due to scarring. Linear bandlike opacification of the lung bases bilaterally, likely due to subsegmental atelectasis and/or scarring. Dependent atelectasis. Tiny calcified granulomas within the right lower lobe. Pleura: No pleural effusions or pneumothorax. Chest wall: No axillary lymphadenopathy. Unremarkable. Bones: No acute osseous abnormalities. No acute displaced rib fractures. Diffuse idiopathic skeletal hyperostosis. Other: Ill-defined soft tissue attenuating density in the right greater than left paraspinal space, indeterminate ABDOMEN AND PELVIS: Liver: Unremarkable. Gallbladder: Cholecystectomy. Biliary: No biliary ductal dilatation. Pancreas: Within normal limits. Spleen: Numerous tiny splenic hypodensities, indeterminate. Comparison with prior imaging may be beneficial. Adrenals: Unremarkable. Kidneys/ureters/bladder: Status post left nephrectomy. Atrophic right kidney. No obstructive uropathy. Small simple appearing right renal cysts. The bladder is within normal limits. No suspicious renal masses. Gastrointestinal: No bowel wall thickening or bowel obstruction. Normal appendix. No significant colonic diverticulosis. Mild colonic stool burden. Pelvic structures: Calcified fibroid uterus. Vascular: Mild atherosclerotic calcifications of the abdominal aorta. No aneurysm. The portal vein remains patent. Peritoneum: No free fluid or pneumoperitoneum. No drainable fluid collections. Lymph nodes: No pathologic lymphadenopathy by size criteria. Abdominal wall/soft tissues: Ill-defined heterogeneous subcutaneous fat stranding involving the posterior soft tissues overlying the left gluteal region. Bones: No acute osseous abnormalities. Diffuse idiopathic skeletal hyperostosis. Dextroscoliosis of the lumbar spine. Postsurgical changes from prior posterior instrumented fusion of L4-L5. Multilevel degenerative changes of the lumbar spine. IMPRESSION: 1. No focal consolidation seen to suggest pneumonia. No acute intrathoracic pathology. 2. Tiny innumerable splenic hypodensities, comparison with previous imaging when available may be beneficial to assess stability. 3. Ill-defined inflammatory changes centered in the left gluteal region, can be seen in the setting of cellulitis. No drainable abscess identified. 4. No acute abdominopelvic pathology. 5. Ill-defined paraspinal soft tissue density in the thoracic spine, indeterminate and of uncertain etiology. Comparison with prior imaging when available may be beneficial for further evaluation. Please note that all CT scans at this facility use dose modulation, iterative reconstruction, and/or weight-based dosing when appropriate to reduce radiation dose to as low as reasonably achievable. Dictated by Edwin Lewis MD @ 01/15/2024 1:20:48 AM (Electronically Signed)
--- NOTE | 2024-01-14 22:17 | P.IMHP_ITS ---
Hospitalist- H&P: MARIO History of Present Illness Date Seen: 01/15/24 Chief complaint: short of breath, very confused since visit Narrative: Tanner James is a 78 year old female with complicated past medical history admitted through the emergency department with progressive weakness and recent falls. She has chronic weakness, rheumatoid arthritis, aortic stenosis status post TAVR, COPD, obesity, fibromyalgia, anxiety, stage 3 chronic kidney disease, history of pulmonary embolism on anticoagulation, history of left nephrectomy. She fell 2 days ago and was seen in our emergency department. Evaluation at that time did not show any serious injury. Evaluation included CT of her head, radiographs of the right hip, CT of her right femur and ultrasound of her leg. She returned home. She was feeling weak and having some pain from her soft tissue injuries. but otherwise not feeling ill. Today she fell again. She had radiographs of her left hip and shoulder which showed no acute fracture. She was discharged to home again. At home she was seen to be profoundly weak and cool to the touch. She had a temperature taken at home of 94 ? F. because of this she was brought back to the emergency room. In our emergency room she was hypotensive with cool extremities and altered mental status. Evaluation included blood tests and IV fluids. Subsequently IV antibiotics were started. She had elevated lactate at 5.9, elevated white blood count at 19 point 2, hemoglobin of 9.4 with a baseline of 12, lactate of 5.9, creatinine 1.7 with a baseline of 1. I am called to evaluate her for admission. Currently we have no availability of ICU level care and so patient is being assessed for appropriateness of admission here or at a higher level of care. With the resuscitation that she has received so far her blood pressure is now normalized. Her mentation is back to normal as well. Her vital signs are normal. There is no obvious source of sepsis. Summary from the past few months: Patient has had multiple hospital admissions over the last 9 months: April 2023 she was hospitalized here for weakness. At that time there was concern of multifactorial weakness including some heart failure with severe aortic stenosis, COPD, UTI, type 2 non STEMI. She had a CT of her chest which showed bilateral extensive interstitial airspace opacities consistent with pulmonary edema or multifocal infiltrates. At the time this was thought to be more likely heart failure. At the time she was on methotrexate and there was concern about some pulmonary toxicity so the methotrexate was held. She was admitted for a week, discharge to home, readmitted 2 days later with ongoing weakness and fever. She was transferred to [facility] because of her fever and heart disease. April 2023 hospitalized at [facility] after transfer from [facility] for fever and cardiac evaluation. Fever resolved spontaneously. She was deemed an appropriate candidate for TAVR. Discharge to nursing home facility for about 1 month. 06/16/2023 hospitalized at [place] for TAVR. Procedure went well. She reports resolution of her cardio-respiratory symptoms after TAVR. TAVR complicated by pseudoaneurysm, hematoma at the site of femoral artery puncture and retroperit prater hematoma. Readmitted on June 21 for management of this. The hematoma has resolved but she still reporting pain in the area of her right groin, right abdomen, right thigh. Repeat CT imaging on October 09 2023 showed resolution of the hematoma. 10/09/2023 she was seen in our emergency department with 2 weeks of right low back pain radiating into her leg and foot. CT at that time showed moderate to severe right foraminal stenosis at L5-S1. Previous fusion at L4-5 and posterior decompression at L2-4. CT abdomen and pelvis showed no residual hematoma. She was given a course of prednisone for treatment of possible sciatica. She tells me now that it might have helped a little bit but she is unsure of this. She has been taking hydrocodone acetaminophen as needed for pain, she has had approximately 53 tablets in 24 days. She was prescribed physical therapy which is of uncertain benefit. The course of therapy has been completed. 10/26/2023 she was readmitted to the hospital with somnolence, weakness, fever, hypoxia. At that time she had diagnosis of sepsis which was thought due to bilateral pneumonia with bronchiectasis. She was on prednisone and methotrexate for rheumatoid arthritis at that time. After discussion with Rheumatology decision was made to stop methotrexate. She received stress dose steroids during that hospital stay as well. She was discharged on October [address] [place] [address]. She has had follow-up with pulmonology on December 13 at that time she was diagnosed with establish bronchiectasis as well as possible interstitial lung disease which was possibly due to methotrexate verses pneumonia of verses rheumatoid arthritis. She had follow-up with Rheumatology on December 12 regarding rheumatoid arthritis and generalized osteoarthritis. Oil Expert recommended holding methotrexate, tapering prednisone from 15 mg down to her current 7.5 mg daily and starting on sulfasalazine now up to 500 mg 2 tablets b.i.d. also recommended Reclast for osteoporosis. Since the beginning of November she has been living at [facility] in independent apartment with a MAINS[employer]SEMBLY CLEANER, Melinda from in-home who is present for 4 hours on 3 days a week. This is generally been going well until the past week. In the past week she reports that she has been having poor appetite and not eating or drinking much. She has been feeling weaker. She is not aware of a fever I any other focus of illness or injury except as noted above. [facility] Medical History (Updated 01/15/24 @ 06:47 by Alejandro Vasquez MD) Sepsis ?A41.9 - Sepsis, unspecified organism (ICD-10) Congestive heart failure ?I50.9 - Heart failure, unspecified (ICD-10) Non-ST elevated myocardial infarction (non-STEMI) ?I21.4 - Non-ST elevation (NSTEMI) myocardial infarction (ICD-10) Immunocompromised state due to drug therapy ?D84.821 - Immunodeficiency due to drugs (ICD-10) ?Z79.899 - Other terminal supervisor (current) drug therapy (ICD-10) 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 - Aneurysm of artery of lower extremity (ICD-10) Obesity (BMI 30.0-34.9) ?E66.9 - Obesity, unspecified (ICD-10) Alcohol use disorder ?F10.90 - Alcohol use, unspecified, uncomplicated (ICD-10) Pulmonary embolism ?I26.99 - Other pulmonary embolism without acute cor pulmonale (ICD-10) Gastrointestinal hemorrhage ?K92.2 - Gastrointestinal hemorrhage, unspecified (ICD-10) Aortic stenosis, severe ?I35.0 - Nonrheumatic aortic (valve) stenosis (ICD-10) Pleural effusion ?J90 - Pleural effusion, not elsewhere classified (ICD-10) History of kidney stones ?Z87.442 - Personal history of urinary calculi (ICD-10) Mitral annular calcification ?I05.9 - Rheumatic mitral valve disease, unspecified (ICD-10) Surgical History Status post transcatheter aortic valve replacement (TAVR) using bioprosthesis ?Z95.3 - Presence of xenogenic heart valve (ICD-10) S/P cataract extraction ?Z98.49 - Cataract extraction status, unspecified eye (ICD-10) S/P cholecystectomy ?Z90.49 - Acquired absence of other specified parts of digestive tract (ICD- 10) History of left nephrectomy ?Z90.5 - Acquired absence of kidney (ICD-10) History of lumbar fusion (04/2010) ?Z98.1 - Arthrodesis status (ICD-10) History of lithotripsy ?Z98.890 - Other specified postprocedural states (ICD-10) Family History Mother Breast cancer, Onset Age: 70 Sister Breast cancer, Onset Age: 35 Social History (Updated 01/14/24 @ 22:37 by Alejandro Vasquez MD) Narrative: Has been living at [facility] an intrapartum apartment with a personal health coach present for 4 hours on 3 days a week. Manages her own medications. Code status is DNR DNI What is your current living situation?: I presently have a place to live Problems where you live: no known problems Problems where you live details: n/a In the past 12 months, utilities in danger of being shut off: no In past 12 months, lack of transportation kept you from medical appts, meetings, work, or getting things needed for daily living: no In the past 12 mos, have been you worried that your food would run out before you had money to buy more?: never true In the past 12 mos, the food you bought just didn't last and you didn't have money to buy more?: never true Highest level of school completed/degree received: high school graduate Smoking Status: Never smoker Do you use any of these nicotine containing products: None Second hand tobacco smoke exposure: Yes How often do you have a drink containing alcohol: never How often do you have six or more drinks on one occasion: Never AUDIT-C Alcohol total score: 0 Non-prescribed substance use: denies use Caffeine: Yes How often does anyone, including family, friends and others, physically hurt you : never How often does anyone, including family, friends and others, insult or talk down to you: never How often does anyone, including family, friends and others, threaten you with harm: never How often does anyone, including family, friends and others, scream or curse at you: never Little interest or pleasure in doing things: more than half the days Feeling down, depressed, or hopeless: more than half the days service: No Meds Home Medications and Allergies Home Medications ?Medication ?Instructions ?Recorded ?Confirmed ?Type Lactobacillus acidophilus 0.5 mg 100 mmu cells PO DAILY 12/22/21 01/12/24 H istory (100 million cell) tablet folic acid 1 mg tablet 3 mg PO DAILY 12/22/21 01/12/24 History ascorbic acid (vitamin C) 500 mg 1 g PO DAILY 01/16/22 01/12/24 History tablet cholecalciferol (vitamin D3) 50 50 mcg PO DAILY 01/16/22 01/12/24 History mcg (2,000 unit) capsule multivitamin 1 tab PO QAM 01/16/22 12/29/23 History ferrous gluconate 324 mg (38 mg 324 mg PO DAILY 10/21/23 01/12/24 History iron) tablet rosuvastatin 5 mg tablet 5 mg PO HS 10/26/23 01/12/24 History valganciclovir 450 mg tablet 450 mg PO DAILY 10/26/23 01/12/24 History prednisone 5 mg tablet 12.5 mg PO DAILY 12/29/23 01/12/24 History sulfasalazine 500 mg tablet 0.5 g PO QDAY 12/29/23 12/29/23 History methotrexate sodium 2.5 mg tablet 17.5 mg PO 01/12/24 History paroxetine HCl 20 mg tablet 20 mg PO DAILY 01/12/24 01/12/24 History Allergies Allergy/AdvReac Type Severity Reaction Status Date / Time NSAIDS (Non-Steroidal Allergy Severe GI bleed Verified 01/14/24 23:00 Anti-Inflamma terbinafine Allergy Intermediate Headache Verified 01/14/24 23:00 levofloxacin AdvReac Severe tendon Verified 01/14/24 23:00 rupture Exam Narrative: Exam Narrative: She is alert and appears in no distress. She is oriented to her circumstances and able to answer most questions except her son gives history of events that happened this afternoon when she had altered mental status and was profoundly weak at home. Head is without apparent trauma. Eyes normal. Oropharynx normal. Neck is supple without mass or adenopathy. Respirations with an occasional basilar crackle but otherwise clear to auscultation. No wheezing. Cardiovascular: S1, S2, relatively regular rhythm. 1/6 systolic murmur. No gallop or rub. Abdomen: Bowel sounds active. Abdomen is soft without tenderness or mass. External genitalia normal. Extremities with 2+ edema bilaterally. Extremities are cool to touch both hands and feet. She has intact pulses. She tolerates range of motion in both lower extremities fairly well. She is unable to lift her right leg off the bed due to reported pain in her right hip but can lift her left leg off the bed. Const: Vital Signs, click to edit/add: Vital Signs - 24 hr 01/14/24 19:20 Temperature 96.9 F L Pulse Rate [Right Pulse Oximeter] 99 Respiratory Rate 18 Blood Pressure [Ri ght Upper Arm] 91/63 Pulse Oximetry 99 Oxygen Delivery Me thod Room Air Documenting provider has reviewed patient's vital signs: yes Hospitalist - H&P: Result Labs Labs: Short CBC 01/14/24 Range/Units 21:05 WBC 19.16 H (4.50-11.00) K/uL Hgb 9.4 L (12.0-16.0) gm/dL Hct 30.4 L (33.0-51.0) % Plt Count 112 L (140-440) K/uL BMP 01/14/24 21:05 Sodium 139 Potassium 4.8 Chloride 108 Carbon Dioxide 19 L BUN 34 H Creatinine 1.7 H Glucose 145 H Calcium 7.9 L Urine 01/14/24 Range/Units 21:38 Urine Color Yellow (Yellow) Urine Appearance Slightly Cloudy A (Clear) Urine pH 5.5 (5.0-8.5) Ur Specific [place] >= 1.030 (1.000-1.030) Urine Protein 2+ A (Negative) Urine Glucose (UA) Negative (Negative) ECG Attestation: I personally reviewed and interpreted this ECG as follows: (Normal sinus rhythm with LVH. No acute ischemic changes) ECG interpretation date: 01/14/[address] Chest/Ab/Pelvis: Attestation: I have reviewed the pertinent imaging results. Radiologist's impression: INDICATION: Sepsis. TECHNIQUE: Multiplanar CT examination of the chest, abdomen and pelvis was performed after the administration 98 mL of Isovue 370 intravenous contrast. COMPARISON: Prior CT examinations of the abdomen and pelvis are unavailable on PACS at time of dictation. FINDINGS: CHEST: Lower neck: Visualized thyroid appears unremarkable. Cardiovascular: Normal heart size. No significant atherosclerotic calcifications of the thoracic aorta. Normal caliber of the thoracic aorta and pulmonary artery. No CT evidence of acute aortic injury. Coronary arterial calcifications. Mitral annular calcifications. No large central pulmonary embolus. Ascending aortic stent graft. Mediastinum and lymph nodes: No pathologic lymphadenopathy by size criteria. Airways: The trachea remains patent and midline. Mild diffuse peribronchial wall thickening. Lungs: No focal consolidation. Subpleural reticulations likely due to scarring. Linear bandlike opacification of the lung bases bilaterally, likely due to subsegmental atelectasis and/or scarring. Dependent atelectasis. Tiny calcified granulomas within the right lower lobe. Pleura: No pleural effusions or pneumothorax. Chest wall: No axillary lymphadenopathy. Unremarkable. Bones: No acute osseous abnormalities. No acute displaced rib fractures. Diffuse idiopathic skeletal hyperostosis. Other: Ill-defined soft tissue attenuating density in the right greater than left paraspinal space, indeterminate ABDOMEN AND PELVIS: Liver: Unremarkable. Gallbladder: Cholecystectomy. Biliary: No biliary ductal dilatation. Pancreas: Within normal limits. Spleen: Numerous tiny splenic hypodensities, indeterminate. Comparison with prior imaging may be beneficial. Adrenals: Unremarkable. Kidneys/ureters/bladder: Status post left nephrectomy. Atrophic right kidney. No obstructive uropathy. Small simple appearing right renal cysts. The bladder is within normal limits. No suspicious renal masses. Gastrointestinal: No bowel wall thickening or bowel obstruction. Normal appendix. No significant colonic diverticulosis. Mild colonic stool burden. Pelvic structures: Calcified fibroid uterus. Vascular: Mild atherosclerotic calcifications of the abdominal aorta. No aneurysm. The portal vein remains patent. Peritoneum: No free fluid or pneumoperitoneum. No drainable fluid collections. Lymph nodes: No pathologic lymphadenopathy by size criteria. Abdominal wall/soft tissues: Ill-defined heterogeneous subcutaneous fat stranding involving the posterior soft tissues overlying the left gluteal region. Bones: No acute osseous abnormalities. Diffuse idiopathic skeletal hyperostosis. Dextroscoliosis of the lumbar spine. Postsurgical changes from prior posterior instrumented fusion of L4-L5. Multilevel degenerative changes of the lumbar spine. IMPRESSION: 1. No focal consolidation seen to suggest pneumonia. No acute intrathoracic pathology. 2. Tiny innumerable splenic hypodensities, comparison with previous imaging when available may be beneficial to assess stability. 3. Ill-defined inflammatory changes centered in the left gluteal region, can be seen in the setting of cellulitis. No drainable abscess identified. 4. No acute abdominopelvic pathology. 5. Ill-defined paraspinal soft tissue density in the thoracic spine, indeterminate and of uncertain etiology. Comparison with prior imaging when available may be beneficial for further evaluation. Assessment and Plan Assessment and plan (1) Sepsis: Problem comment: Patient presents with altered mental status, profound weakness, hypothermia at home, tachycardia, elevated white blood count, lactate and acute kidney injury. Initially responding well to fluid resuscitation. Source of sepsis remains unclear. Status: Acute (2) Weakness: Status: Inactive (3) Adrenal insufficiency: Problem comment: She has had the appearance of adrenal insufficiency with each hospital admission. Chronically on prednisone 7.5 mg. Seems to respond very well to short course of IV hydrocortisone. Status: Inactive (4) Weakness: Problem comment: This is the patient's primary complaint with the last 2 admissions. She is also found to have other medical problems likely contributing to her acute on chronic weakness. Status: Inactive (5) Bronchiectasis: Status: Inactive (6) Altered mental status: Problem comment: On both admissions this past week patient had confusion and difficulty giving history. She gives me a history however of not really recalling any events that happened between the afternoon of discharge and the morning of re admission, about 2 days. Unclear if she was unconscious or just confused enough that she did not register her memories. Status: Inactive (7) Frailty syndrome in geriatric patient: Problem comment: Probably need nursing home facility for rehab prior to going home. PT and OT to evaluate Status: Inactive (8) Fall: Problem comment: Multiple bruises related to falls. No apparent significant injury or fracture. Status: Acute (9) Bronchiectasis: Problem comment: Patient's racebook writer indicates a diagnosis of bronchiectasis. She probably does not have COPD but may have some obstruction on PFTs due to bronchiectasis. Prior to TAVR had wheezing treated with inhalers. Since TAVR has been off inhalers and asymptomatic Status: Acute (10) Rheumatoid arthritis: Problem comment: Previously on methotrexate and prednisone. Methotrexate stopped in September. Prednisone increased to 15 mg daily in September and tapered now to 7.5 mg daily Status: Acute (11) Chronic pain: Problem comment: It appears fibromyalgia and rheumatoid arthritis pain are significant cause of pain as well. Started on Ange and changed to duloxetine. Has chronically use some hydrocodone Status: Acute (12) Fibromyalgia: Problem comment: Start on pregabalin. Switch from paroxetine to duloxetine. Status: Acute (13) Cognitive impairment: Problem comment: [place] on 10/22/2023 is 23/30. Status: Acute Plan Patient is admitted to the hospital for evaluation and management of signs and symptoms of sepsis. Total time spent is 110 minutes in critical care evaluation and treatment
[2024-01-14] MEDS: PIPERACILLIN/TAZOBACTAM 3.375 GM in 0.9 % SODIUM CHLORIDE Mini-bag 100 ML IVPB (22:26)
[2024-01-14 23:14] LABS: Lactate* 4.8 mmol/L (0.5-1.9)
[2024-01-14] MEDS: LACTATED RINGERS 1000 ML 1,000 ML IV (23:17)
[2024-01-15] VITALS (18 sets, daily range): BP systolic 114–135; BP diastolic 26–65; PULSE 82–118; RESP 16–22; TEMP 36.1–36.9; O2SAT 96–100; BMI 39.4
[2024-01-15] MEDS: 0.9 % SODIUM CHLORIDE 1000 ml 1,000 ML IV (01:44)
[2024-01-15] MEDS: HYDROCORTISONE SOD SUCCINATE 50 MG/ML inj 100 MG IVP (01:44)
[2024-01-15] MEDS: PIPERACILLIN/TAZOBACTAM 3.375 GM in 0.9 % SODIUM CHLORIDE Mini-bag 100 ML IVPB ×4 (04:40→22:16)
--- NOTE | 2024-01-15 04:41 | PC.NURSE ---
Shift note: Pt arrived at the unit at 0130 on ED bed in a conscious state. IV Vancomycin was infusing at 260ml/hr. Pt reported general bodily pain related to multiple falls sustained at the [facility]. On examination, multiple bruises on different areas of the skin, more prominent at left forearm and the left butt extending to the left lower back. No open area noted. Pt appeared confused occasionally and seems to talk to herself. Offered bedpan upon request but unable to urinate. Rather, had a smear of BM. Oliveros inserted per MD order and drained about 200ml of clear urine. Pt appeared unsteady. Oriented to room. Vital signs checked and charted and treatment started as ordered. Pt had adequate sleep. Rated pain at 8 but refused pain medication, stated she needs to sleep.
[2024-01-15] MEDS: ACETAMINOPHEN 325 MG TABLET 650 MG PO ×3 (07:49→18:25)
[2024-01-15] MEDS: OXYCODONE 5 MG TABLET PO ×3 (07:49→18:26)
[2024-01-15] MEDS: PREGABALIN 50 MG CAPSULE PO ×2 (09:35→21:13)
[2024-01-15 09:36] LABS: Basophils Percent Auto 0.3 % (0.0-3.0); Hematocrit 27.5 % (33.0-51.0); Hemoglobin* 8.4 gm/dL (12.0-16.0); Immature Granulocytes Pct Auto 0.8 %; Lymphocytes Percent Auto 8.1 % (20-44); Mean Corpuscular HGB Conc 31 gm/dL (32-36); Mean Corpuscular Hemoglobin 32 pg (26-34); Mean Corpuscular Volume 105 fL (80-100); Monocytes Percent Auto 3.4 % (0.0-11.0); Neutrophils Percent Auto 87.4 % (42.0-72.0); Platelet Count* 94 K/uL (140-440); RDW Coefficient of Variation % 14.5 % (11.5-15.5); Red Blood Count 2.61 m/uL (4.00-5.20); White Blood Count* 15.58 K/uL (4.50-11.00)
[2024-01-15] MEDS: sulfaSALAzine 500 MG TABLET 1000 MG PO ×2 (09:36→21:13)
[2024-01-15] MEDS: DULOXETINE 30 MG CAPSULE DR 60 MG PO (09:37)
[2024-01-15] MEDS: METOPROLOL SUCCINATE (XL) 25 MG TAB PO ×2 (09:37→21:11)
[2024-01-15] MEDS: MULTIVITAMIN/MINERALS 1 TABLET 1 TAB PO (09:38)
[2024-01-15 09:39] LABS: Slide Review Reflex No
[2024-01-15] MEDS: FERROUS SULFATE 325 MG TABLET PO (09:39)
[2024-01-15] MEDS: APIXABAN 5 MG TABLET 2.5 MG PO ×2 (09:40→21:11)
[2024-01-15] MEDS: SODIUM CHLORIDE 0.9 % (FLUSH) 10 ML SYRINGE 5 ML IVF ×2 (09:40→21:17)
[2024-01-15] MEDS: LACTOBACILLUS ACIDOPHILUS 1 TABLET 1 TAB PO (09:40)
[2024-01-15 09:50] LABS: Albumin* 3.1 g/dL (3.3-5.0); Chloride* 110 mmol/L (96-114)
[2024-01-15 09:51] LABS: Potassium* 4.4 mmol/L (3.6-5.1); Sodium* 138 mmol/L (135-149)
[2024-01-15 09:53] LABS: Creatinine* 1.3 mg/dL (0.5-1.5); Est. Creatinine Clearance* 30.45; Estimated Glomerular Filt Rate 43 ml/min
[2024-01-15 09:54] LABS: Alanine Aminotransferase* 40 U/L (4-35); Alkaline Phosphatase* 62 U/L (40-150); Anion Gap 9 mEq/L (7-15); Aspartate Amino Transferase* 78 U/L (12-35); Bilirubin Direct* 0.6 mg/dL (0.0-0.5); Bilirubin Total* 0.6 mg/dL (0.1-1.5); Blood Urea Nitrogen* 29 mg/dL (7-30); Calcium* 7.2 mg/dL (8.4-10.6); Carbon Dioxide* 19 mmol/L (20-32); Glucose* 167 mg/dL (60-115); Magnesium* 2.4 mg/dL (1.5-2.6); Phosphorus* 4.2 mg/dL (2.5-4.5)
[2024-01-15 09:56] LABS: C Reactive Protein* 2.6 mg/dL (0.5-1.0)
[2024-01-15] MEDS: HYDROCORTISONE SOD SUCCINATE 50 MG/ML inj IVP (10:06)
[2024-01-15] MEDS: VALGANCICLOVIR 450 MG PO (14:45)
--- NOTE | 2024-01-15 15:54 | P.IMPN_ITS ---
Progress Note: A&P Assessment and plan (1) Sepsis: Problem details: Patient presents with altered mental status, profound weakness, hypothermia at home, tachycardia, elevated white blood count, lactate and acute kidney injury. Initially responding well to fluid resuscitation. Source of sepsis remains unclear. Status: Acute (2) Weakness: Problem details: Relatively severe weakness at this point needing assist of 2 to get out of bed. Likely will require care home facility or higher level of care at discharge Status: Inactive (3) Adrenal insufficiency: Problem details: She has had the appearance of adrenal insufficiency with each hospital admission. Chronically on prednisone 7.5 mg. Seems to respond very well to short course of IV hydrocortisone. Switch to increased dose of oral prednisone Status: Inactive (4) Bronchiectasis: Problem details: Currently not symptomatic Status: Inactive (5) Altered mental status: Problem details: Patient had confusion and difficulty giving history on previous admissions. Mental status appears closer to baseline today. Status: Inactive (6) Frailty syndrome in geriatric patient: Problem details: Probably need care home facility for rehab prior to going home. PT and OT to evaluate Status: Inactive (7) Fall: Problem details: Multiple bruises related to falls. No apparent significant injury or fracture. Likely significant blood loss in her left hip soft tissue. Status: Acute (8) Rheumatoid arthritis: Problem details: Previously on methotrexate and prednisone. Methotrexate stopped in September. Prednisone increased to 15 mg daily in September and tapered now to 7.5 mg daily. Stress dose steroids Status: Acute (9) Chronic pain: Problem details: It appears fibromyalgia and rheumatoid arthritis pain are significant cause of pain as well. Started on Ange and changed to duloxetine. Has chronically use some hydrocodone Status: Acute (10) Fibromyalgia: Problem details: Start on pregabalin. Switch from paroxetine to duloxetine. Status: Acute (11) Cognitive impairment: Problem details: [place] on 10/22/2023 is 23/30. Status: Acute Plan Continue in hospital for ongoing evaluation and treatment for syndrome of sepsis with IV antibiotics and IV fluids and monitor vital signs,, cardia respiratory status. Time Spent With Patient Total time spent: Total time spent today is 60 minutes in evaluation management Subjective Date Seen: 01/15/24 Interval history: Tanner James is a 78 year old female with complicated past medical history admitted through the emergency department with progressive weakness and recent falls. She has chronic weakness, rheumatoid arthritis, aortic stenosis status post TAVR, COPD, obesity, fibromyalgia, anxiety, stage 3 chronic kidney disease, history of pulmonary embolism on anticoagulation, history of left nephrectomy. She fell 2 days ago and was seen in our emergency department. Evaluation at that time did not show any serious injury. Evaluation included CT of her head, radiographs of the right hip, CT of her right femur and ultrasound of her leg. She returned home. She was feeling weak and having some pain from her soft tissue injuries. but otherwise not feeling ill. Today she fell again. She had radiographs of her left hip and shoulder which showed no acute fracture. She was discharged to home again. At home she was seen to be profoundly weak and cool to the touch. She had a temperature taken at home of 94 ? F. because of this she was brought back to the emergency room. In our emergency room she was hypotensive with cool extremities and altered mental status. Evaluation included blood tests and IV fluids. Subsequently IV antibiotics were started. She had elevated lactate at 5.9, elevated white blood count at 19 point 2, hemoglobin of 9.4 with a baseline of 12, lactate of 5.9, creatinine 1.7 with a baseline of 1. I am called to evaluate her for admission. Currently we have no availability of ICU level care and so patient is being assessed for appropriateness of admission here or at a higher level of care. With the resuscitation that she has received so far her blood pressure is now normalized. Her mentation is back to normal as well. Her vital signs are normal. There is no obvious source of sepsis. January 14: Overnight with resuscitation for sepsis including fluids, antibiotics, steroids she has had improvement in her vital signs which are now relatively normal. She remains profoundly weak. She reports a very poor ap petite and has been eating little. She is not having and abdominal pain. No fever. No new symptoms overnight. Exam Narrative: Exam Narrative: She is alert and appears in no distress. She is more interactive and appears closer to baseline mental status than previously at. She has some conjunctival edema. Oropharynx is normal. Neck is supple without mass or adenopathy. Respirations are clear to auscultation without wheezing rales or rhonchi. Cardiovascular: S1, S2, regular rate and rhythm. Abdomen is soft without tenderness. Inspection of the back buttock and pelvis shows marked diffuse bruising over the left buttock hip area. No erythema. No break in the skin. Minimal bruising on the right. Lower extremity edema at 3+. Const: Vital Signs, click to edit/add: Vital Signs - 24 hr 01/14/24 19:20 01/14/24 20:10 01/14/24 20:30 Temperature 96.9 F L Pulse Rate 89 86 Pulse Rate [Pulse Oximeter] Pulse Rate [Right Pulse Oximeter] 99 Respiratory Rate 18 Blood Pressure Blood Pressure [Ri ght Arm] Blood Pressure [Ri ght Upper Arm] 91/63 Pulse Oximetry 99 100 [facility] 01/14/24 21:00 01/14/24 21:01 01/14/24 21:15 Temperature Pulse Rate 82 82 Pulse Rate [Pulse Oximeter] Pulse Rate [Right Pulse Oximeter] Respiratory Rate Blood Pressure 113/74 81/46 L Blood Pressure [Ri ght Arm] Blood Pressure [Ri ght Upper Arm] Pulse Oximetry 92 93 53 L [facility] 01/14/24 21:38 01/14/24 21:39 01/14/24 21:53 Temperature Pulse Rate 78 82 Pulse Rate [Pulse Oximeter] Pulse Rate [Right Pulse Oximeter] Respiratory Rate Blood Pressure 111/62 136/91 H Blood Pressure [Ri ght Arm] Blood Pressure [Ri ght Upper Arm] Pulse Oximetry 100 100 [facility] 01[facility]14/24 22:00 01/14/24 22:03 01/14/24 22:30 Temperature Pulse Rate 81 79 78 Pulse Rate [Pulse Oximeter] Pulse Rate [Right Pulse Oximeter] Respiratory Rate Blood Pressure 143/77 H Blood Pressure [Ri ght Arm] Blood Pressure [Ri ght Upper Arm] Pulse Oximetry 100 100 100 Oxygen Delivery [facility] 01/14/24 22:32 01/14/24 22:55 01/14/24 23:00 Temperature Pulse Rate 77 74 76 Pulse Rate [Pulse Oximeter] Pulse Rate [Right Pulse Oximeter] Respiratory Rate Blood Pressure 112/43 L 114/47 L Blood Pressure [Ri ght Arm] Blood Pressure [Ri ght Upper Arm] Pulse Oximetry 100 98 100 [facility] 01/14/24 23:02 01/14/24 23:30 01/14/24 23:35 Temperature Pulse Rate 73 80 81 Pulse Rate [Pulse Oximeter] Pulse Rate [Right Pulse Oximeter] Respiratory Rate Blood Pressure 124/48 L Blood Pressure [Ri ght Arm] Blood Pressure [Ri ght Upper Arm] Pulse Oximetry 99 98 99 Oxygen Delivery Nm thod 01/15/24 00:30 01/15/24 00:35 01/15/24 01:36 Temperature 96.9 F L Pulse Rate 85 Pulse Rate [Pulse Oximeter] Pulse Rate [Right Pulse Oximeter] 85 Respiratory Rate 20 20 Blood Pressure 115/55 L Blood Pressure [Ri ght Arm] Blood Pressure [Ri ght Upper Arm] 114/65 Pulse Oximetry 99 99 99 Oxygen Delivery Nm thod Room Air 01/15/24 01:39 01/15/24 01:42 01/15/24 02:19 Temperature 96.9 F L 96.9 F L Pulse Rate Pulse Rate [Pulse Oximeter] Pulse Rate [Right Pulse Oximeter] 85 Respiratory Rate 20 18 18 Blood Pressure Blood Pressure [Ri ght Arm] 131/58 L Blood Pressure [Ri ght Upper Arm] 114/65 Pulse Oximetry 100 100 [facility] 01/15/24 02:30 01/15/24 03:00 01/15/24 07:05 Temperature 96.9 F L Pulse Rate 90 87 Pulse Rate [Pulse Oximeter] Pulse Rate [Right Pulse Oximeter] Respiratory Rate 18 Blood Pressure Blood Pressure [Ri ght Arm] 131/58 L Blood Pressure [Ri ght Upper Arm] Pulse Oximetry 100 Oxygen Delivery Nm thod Room Air 01/15/24 07:54 01/15/24 07:54 01/15/24 11:12 Temperature 98.2 F 98 F Pulse Rate Pulse Rate [Pulse Oximeter] 100 100 92 Pulse Rate [Right Pulse Oximeter] Respiratory Rate 22 22 16 Blood Pressure Blood Pressure [Ri ght Arm] 130/40 L 135/45 L Blood Pressure [Ri ght Upper Arm] Pulse Oximetry 96 100 Oxygen Delivery Nm thod Room Air Room Air 01/15/24 14:48 01/15/24 14:51 01/15/24 15:00 Temperature 98.5 F Pulse Rate Pulse Rate [Pulse Oximeter] 97 91 91 Pulse Rate [Right Pulse Oximeter] Respiratory Rate 20 20 Blood Pressure Blood Pressure [Ri ght Arm] 120/26 L 125/46 L Blood Pressure [Ri ght Upper Arm] Pulse Oximetry 100 Oxygen Delivery Nm thod Room Air 01/15/24 15:04 Temperature Pulse Rate 82 Pulse Rate [Pulse Oximeter] Pulse Rate [Right Pulse Oximeter] Respiratory Rate Blood Pressure Blood Pressure [Ri ght Arm] Blood Pressure [Ri ght Upper Arm] Pulse Oximetry Oxygen Delivery Me thod Documenting provider has reviewed patient's vital signs: yes Labs Labs: Laboratory Results - last 24 hr 01/14/24 01/14/24 01/14/24 19:31 20:10 21:05 WBC 19.16 H RBC 2.90 L Hgb 9.4 L Hct 30.4 L MCV 105 H MCH 32 MCHC 31 L RDW Coeff of Navneet 14.4 Plt Count 112 L Neut % (Auto) 84.9 H Lymph % (Auto) 6.4 L [place] % (Auto) 6.5 Eos % (Auto) 0.0 Baso % (Auto) 0.3 Neut # (Auto) 16.30 H Lymph # (Auto) 1.20 [place] # (Auto) 1.20 H Eos # (Auto) 0.00 Baso # (Auto) 0.10 Abs Immat Gran (auto) 0.40 H Imm/Tot Granulo (auto) 1.9 Sodium 139 Potassium 4.8 Chloride 108 Carbon Dioxide 19 L Anion Gap 12 BUN 34 H Creatinine 1.7 H Estimated Creat Clear 23.29 Estimated GFR 31 Glucose 145 H Lactate 5.9 H* Calcium 7.9 L Phosphorus Magnesium Total Bilirubin Direct Bilirubin AST ALT Alkaline Phosphatase C-Reactive Protein Total Protein Albumin Urine Color Urine Appearance Urine pH Ur Specific [place] Urine Protein Urine Glucose (UA) Urine Ketones Urine Blood Urine Nitrite Urine Bilirubin Urine Urobilinogen Ur Leukocyte Esterase Urine RBC Urine WBC Ur Squamous Epith Cells Urine Bacteria SARS-CoV-2 (PCR) Negative SARS-CoV-2 Influenza Type A (PCR) Negative PCR FLU A Influenza Type B (PCR) Negative PCR FLU B RSV (PCR) Negative PCR RSV POC Troponin I 0.04 01/14/24 01/14/24 01/15/24 21:38 23:10 09:28 WBC 15.58 H RBC 2.61 L Hgb 8.4 L Hct 27.5 L MCV 105 H MCH 32 MCHC 31 L RDW Coeff of Navneet 14.5 Plt Count 94 L Neut % (Auto) 87.4 H Lymph % (Auto) 8.1 L [place] % (Auto) 3.4 Eos % (Auto) 0.0 Baso % (Auto) 0.3 Neut # (Auto) 13.60 H Lymph # (Auto) 1.30 [place] # (Auto) 0.50 Eos # (Auto) 0.00 Baso # (Auto) 0.00 Abs Immat Gran (auto) 0.10 Imm/Tot Granulo (auto) 0.8 Sodium 138 Potassium 4.4 Chloride 110 Carbon Dioxide 19 L Anion Gap 9 BUN 29 Creatinine 1.3 Estimated Creat Clear 30.45 Estimated GFR 43 Glucose 167 H Lactate 4.8 H* 4.0 H Calcium 7.2 L Phosphorus 4.2 Magnesium 2.4 Total Bilirubin 0.6 Direct Bilirubin 0.6 H AST 78 H ALT 40 H Alkaline Phosphatase 62 C-Reactive Protein 2.6 H Total Protein 5.0 L Albumin 3.1 L Urine Color Yellow Urine Appearance Slightly Cloudy A Urine pH 5.5 Ur Specific [place] >= 1.030 Urine Protein 2+ A Urine Glucose (UA) Negative Urine Ketones Negative Urine Blood Negative Urine Nitrite Negative Urine Bilirubin Negative Urine Urobilinogen 0.2 Ur Leukocyte Esterase Negative Urine RBC 0-2 Urine WBC 0-2 Ur Squamous Epith Cells None Urine Bacteria Few A SARS-CoV-2 (PCR) Influenza Type A (PCR) Influenza Type B (PCR) RSV (PCR) POC Troponin I
[2024-01-15] MEDS: predniSONE 20 MG TABLET PO (16:19)
--- NOTE | 2024-01-15 16:51 | PM.EN ---
Chart Event Note Time Seen by Provider: 16:40 Date Seen: 01/15/24 Chart Event Note: Nurse noted B[place] still has a low diastolic BP. UO since 7am is 250cc, light yellow urine. Bonita said she was feeling okay. Her friends were in the room and said she had been complaining of abdominal pain. BP 125/46 (automated), 150/65 (manual), HR 82, RR 20, T 98.5F, O2sat 100% RA General: No acute distress. Facial bruising noted. Awake, alert, oriented. Mild pallor. No jaundice. Oropharynx: Clear. Mucous membranes moist. Cardiovascular: Regular rate and rhythm. No murmurs, gallops, or rubs. Respiratory: Clear to auscultation bilaterally. No wheezes or crackles. Abdomen: Bowel sounds present. Soft, nondistended, nontender. Extremities: Bruising noted on both lower extremities. 3+ bilateral pedal edema. Sepsis: This morning's lactate was 4 which has trended down her admission lactate of 5.9. Manual blood pressure and map are okay I have recommended that if the automated blood pressure is of concern, the nurse will do a manual blood pressure to verify. Patient has had 3 L of IV fluid since admission. Recheck lactate and hemoglobin now. Will consider additional fluid bolus for decreased urine output if a lactate is still elevated. Encourage oral fluid intake. Continue current plan of care.
[2024-01-15 17:41] LABS: Hemoglobin* 7.4 gm/dL (12.0-16.0)
[2024-01-15 17:42] LABS: Cholesterol* 90 mg/dL (90-199)
[2024-01-15 17:43] LABS: HDL Cholesterol* 48 mg/dL (>=50); LDL Cholesterol Calculated 18 mg/dL (<100); Triglycerides* 121 mg/dL (40-149)
--- NOTE | 2024-01-15 18:09 | PC.NURSE ---
End of Shift: Patient pleasant and cooperative, alert and oriented but confused at times. Patient low diastolically but stable, lungs clear, BS WNL, IV currently running NS 500 bolus. Patient with pitting edema +2. Patient rates pain on her left side of body at most 7/10, tylenol and 5 of oxy given x2. Patient arango intact and draining. Patient 2 assist/walker/lizbeth steady/EZ-stand, depending on weakness level to chair/commode. Patient was up to chair once today. Patient had loose stool x3 on commode. Patient does not have a great appetite but has eaten for each meal. Tele=NSR
[2024-01-15] MEDS: LACTATED RINGERS 500 ML 500 ML IV (18:17)
[2024-01-15 20:28] LABS: Lactate* 2.1 mmol/L (0.5-1.9)
[2024-01-15] MEDS: ROSUVASTATIN CALCIUM 10 MG TABLET 5 MG PO (21:12)
[2024-01-15] MEDS: 0.9 % SODIUM CHLORIDE 250 ml IV (22:18)
[2024-01-16] VITALS (19 sets, daily range): BP systolic 110–166; BP diastolic 40–62; PULSE 78–101; RESP 16–20; TEMP 36.4–37.2; O2SAT 98–100
[2024-01-16] MEDS: PIPERACILLIN/TAZOBACTAM 3.375 GM in 0.9 % SODIUM CHLORIDE Mini-bag 100 ML IVPB ×4 (04:33→22:43)
[2024-01-16] MEDS: OXYCODONE 5 MG TABLET PO ×3 (04:33→18:32)
--- NOTE | 2024-01-16 05:18 | PC.NURSE ---
Shift note: Pt has been in bed throughout the shift. Confusion and disorientation noted but easily redirectible. Turn and reposition Q4h. Urine output of 400ml for 12 hour period. HR was above 100 at 0300 but dropped down within 70s before 0400. Pt continue to have weakness. Bruises to multiple areas of the body, more prominent at the left forearm and left butt extended to left lower back.
[2024-01-16 06:43] LABS: Basophils Percent Auto 0.3 % (0.0-3.0); Eosinophils Percent Auto 0.1 % (0.0-7.0); Hematocrit 21.4 % (33.0-51.0); Immature Granulocytes Pct Auto 0.6 %; Lymphocytes Percent Auto 9.7 % (20-44); Mean Corpuscular HGB Conc 31 gm/dL (32-36); Mean Corpuscular Hemoglobin 33 pg (26-34); Mean Corpuscular Volume 106 fL (80-100); Neutrophils Percent Auto 83.3 % (42.0-72.0); Platelet Count* 76 K/uL (140-440); RDW Coefficient of Variation % 14.9 % (11.5-15.5); Red Blood Count 2.02 m/uL (4.00-5.20); White Blood Count* 11.19 K/uL (4.50-11.00)
[2024-01-16 07:05] LABS: Hemoglobin* 6.6 gm/dL (12.0-16.0); Slide Review Reflex No
[2024-01-16 07:14] LABS: Chloride* 112 mmol/L (96-114)
[2024-01-16 07:15] LABS: Sodium* 138 mmol/L (135-149)
[2024-01-16 07:17] LABS: Creatinine* 1.2 mg/dL (0.5-1.5); Est. Creatinine Clearance* 32.99; Estimated Glomerular Filt Rate 47 ml/min
[2024-01-16 07:18] LABS: Anion Gap 2 mEq/L (7-15); Blood Urea Nitrogen* 22 mg/dL (7-30); Calcium* 7.1 mg/dL (8.4-10.6); Carbon Dioxide* 24 mmol/L (20-32); Glucose* 108 mg/dL (60-115)
[2024-01-16 07:21] LABS: C Reactive Protein* 4.6 mg/dL (0.5-1.0)
[2024-01-16 07:29] LABS: Fecal Occult Blood* Negative (Negative)
--- NOTE | 2024-01-16 07:44 | PM.IMPN1 ---
Progress Note: A&P Assessment and plan (1) Sepsis: Problem details: Patient presents with altered mental status, profound weakness, hypothermia at home, tachycardia, elevated white blood count, lactate and acute kidney injury. Initially responding well to fluid resuscitation. Source of sepsis remains unclear. Cultures negative so far Status: Acute (2) Weakness: Problem details: Relatively severe weakness at this point needing assist of 2 to get out of bed. Likely will require prison facility or higher level of care at discharge Status: Inactive (3) Adrenal insufficiency: Problem details: She has had the appearance of adrenal insufficiency with each hospital admission. Chronically on prednisone 7.5 mg. Seems to respond very well to short course of IV hydrocortisone. Switch to increased dose of oral prednisone. Plan taper back to 7.5 mg daily over the next few days Status: Inactive (4) Bronchiectasis: Problem details: Currently not symptomatic Status: Inactive (5) Altered mental status: Problem details: Patient had confusion and difficulty giving history on previous admissions. Mental status appears closer to baseline today. Status: Inactive (6) Frailty syndrome in geriatric patient: Problem details: Probably need prison facility for rehab prior to going home. PT and OT to evaluate Status: Inactive (7) Fall: Problem details: Multiple bruises related to falls. No apparent significant injury or fracture. Likely significant blood loss in her left hip soft tissue. Most likely explanation for acute anemia. Status: Acute (8) Rheumatoid arthritis: Problem details: Previously on methotrexate and prednisone. Methotrexate stopped in September. Prednisone increased to 15 mg daily in September and tapered now to 7.5 mg daily. Stress dose steroids Status: Acute (9) Chronic pain: Problem details: It appears fibromyalgia and rheumatoid arthritis pain are significant cause of pain as well. Started on Lyrica and changed to duloxetine. Has chronically use some hydrocodone Status: Acute (10) Fibromyalgia: Problem details: On Lyrica and duloxetine Status: Acute (11) Cognitive impairment: Problem details: [place] on 10/22/2023 is 23/30. Status: Acute (12) Hypotension: Problem details: Suspected to be due to sepsis on admission. Likely blood loss anemia is significant contributor if not the primary cause. Will hold metoprolol if heart rate allows. Status: Acute (13) Diarrhea: Problem details: Check for C diff. monitor for GI bleeding. Status: Acute (14) Edema: Problem details: Patient has edema from fluid resuscitation. Caution with ongoing fluid resuscitation. Caution with diuresis due to low blood pressure. Poor nutrition, low albumin also contributing. Status: Acute (15) Blood loss anemia: Problem details: Likely this is primarily due to fall with large area of bruising over the left flank and buttock. No obvious fracture. Continue to trend hemoglobin and today will transfuse 2 units packed red cells Status: Acute Plan Continue in-hospital for monitoring and management of acute blood loss, hypotension, possible sepsis, profound weakness and disability. Time Spent With Patient Total time spent: Total time spent today is 55 minutes in evaluation and management. Subjective Date Seen: 01/16/24 Interval history: Tanner James is a 78 year old female with complicated past medical history admitted through the emergency department with progressive weakness and recent falls. She has chronic weakness, rheumatoid arthritis, aortic stenosis status post TAVR, COPD, obesity, fibromyalgia, anxiety, stage 3 chronic kidney disease, history of pulmonary embolism on anticoagulation, history of left nephrectomy. She fell 2 days ago and was seen in our emergency department. Evaluation at that time did not show any serious injury. Evaluation included CT of her head, radiographs of the right hip, CT of her right femur and ultrasound of her leg. She returned home. She was feeling weak and having some pain from her soft tissue injuries. but otherwise not feeling ill. Today she fell again. She had radiographs of her left hip and shoulder which showed no acute fracture. She was discharged to home again. At home she was seen to be profoundly weak and cool to the touch. She had a temperature taken at home of 94 ? F. because of this she was brought back to the emergency room. In our emergency room she was hypotensive with cool extremities and altered mental status. Evaluation included blood tests and IV fluids. Subsequently IV antibiotics were started. She had elevated lactate at 5.9, elevated white blood count at 19 point 2, hemoglobin of 9.4 with a baseline of 12, lactate of 5.9, creatinine 1.7 with a baseline of 1. I am called to evaluate her for admission. Currently we have no availability of ICU level care and so patient is being assessed for appropriateness of admission here or at a higher level of care. With the resuscitation that she has received so far her blood pressure is now normalized. Her mentation is back to normal as well. Her vital signs are normal. There is no obvious source of sepsis. January 14: Overnight with resuscitation for sepsis including fluids, antibiotics, steroids she has had improvement in her vital signs which are now relatively normal. She remains profoundly weak. She reports a very poor appetite and has been eating little. She is not having and abdominal pain. No fever. No new symptoms overnight. January 15: Patient continued to have relative low blood pressure and poor urine output so received another bolus of fluid last night. Today she reports feeling profoundly weak. She reports having some back pain with activity. She is comfortable at rest but reports her low back hurts when she is moving around. She is requiring heavy assist of 2 to stand and transfer. She had a large loose diarrhea stool this morning. Exam Narrative: Exam Narrative: She is alert and appears in no distress. Mood and affect are brighter. Level of alertness is improved as well. She is oriented to her circumstances and carries on a conversation about current health status and goals of care with fair insight into her condition. Respirations with bibasilar crackles. Cardiovascular: S1, S2, regular rate and rhythm. Abdomen with active bowel sounds. Abdomen is soft without tenderness. She has a less than 1 cm ulcer in her epigastrium which is chronic. No significant surrounding erythema. She has large area of bruising over the left flank, left buttock, left hip. Lower extremities with 3+ edema bilaterally. She moves all 4 extremities well. Const: Vital Signs, click to edit/add: Vital Signs - 24 hr 01/15/24 07:54 01/15/24 07:54 01/15/24 11:12 Temperature 98.2 F 98 F Pulse Rate Pulse Rate [Pulse Oximeter] 100 100 92 Respiratory Rate 22 22 16 Blood Pressure [Ri ght Arm] 130/40 L 135/45 L Pulse Oximetry 96 100 Oxygen Delivery Me thod Room Air Room Air 01/15/24 14:48 01/15/24 14:51 01/15/24 15:00 Temperature 98.5 F Pulse Rate Pulse Rate [Pulse Oximeter] 97 91 91 Respiratory Rate 20 20 Blood Pressure [Ri ght Arm] 120/26 L 125/46 L Pulse Oximetry 100 Oxygen Delivery Me thod Room Air 01/15/24 15:04 01/15/24 19:00 01/15/24 22:20 Temperature 98 F Pulse Rate 82 Pulse Rate [Pulse Oximeter] 112 H 118 H Respiratory Rate 20 20 Blood Pressure [Ri ght Arm] 121/50 L Pulse Oximetry 100 Oxygen Delivery Me thod Room Air 01/15/24 22:20 01/15/24 23:00 01/16/24 01:54 Temperature 98 F 98.6 F Pulse Rate 101 H Pulse Rate [Pulse Oximeter] 118 H 101 H Respiratory Rate 20 20 Blood Pressure [Ri ght Arm] 127/56 L 110/40 L Pulse Oximetry 97 100 Oxygen Delivery Me thod Room Air Room Air Labs Labs: Laboratory Results - last 24 hr 01/15/24 01/15/24 01/15/24 09:28 17:18 20:15 WBC 15.58 H RBC 2.61 L Hgb 8.4 L 7.4 L* Hct 27.5 L MCV 105 H MCH 32 MCHC 31 L RDW Coeff of Navneet 14.5 Plt Count 94 L Neut % (Auto) 87.4 H Lymph % (Auto) 8.1 L [place] % (Auto) 3.4 Eos % (Auto) 0.0 Baso % (Auto) 0.3 Neut # (Auto) 13.60 H Lymph # (Auto) 1.30 [place] # (Auto) 0.50 Eos # (Auto) 0.00 Baso # (Auto) 0.00 Abs Immat Gran (auto) 0.10 Imm/Tot Granulo (auto) 0.8 Sodium 138 Potassium 4.4 Chloride 110 Carbon Dioxide 19 L Anion Gap 9 BUN 29 Creatinine 1.3 Estimated Creat Clear 30.45 Estimated GFR 43 Glucose 167 H Lactate 4.0 H 3.0 H 2.1 H Calcium 7.2 L Phosphorus 4.2 Magnesium 2.4 Total Bilirubin 0.6 Direct Bilirubin 0.6 H AST 78 H ALT 40 H Alkaline Phosphatase 62 C-Reactive Protein 2.6 H Total Protein 5.0 L Albumin 3.1 L Triglycerides 121 Cholesterol 90 LDL Cholesterol, Calc 18 HDL Cholesterol 48 L Stool Occult Blood 01/16/24 01/16/24 06:04 Unknown WBC 11.19 H RBC 2.02 L Hgb 6.6 L* Hct 21.4 L MCV 106 H MCH 33 MCHC 31 L RDW Coeff of Navneet 14.9 Plt Count 76 L Neut % (Auto) 83.3 H Lymph % (Auto) 9.7 L [place] % (Auto) 6.0 Eos % (Auto) 0.1 Baso % (Auto) 0.3 Neut # (Auto) 9.30 H Lymph # (Auto) 1.10 [place] # (Auto) 0.70 Eos # (Auto) 0.00 Baso # (Auto) 0.00 Abs Immat Gran (auto) 0.10 Imm/Tot Granulo (auto) 0.6 Sodium 138 Potassium 4.0 Chloride 112 Carbon Dioxide 24 Anion Gap 2 L BUN 22 Creatinine 1.2 Estimated Creat Clear 32.99 Estimated GFR 47 Glucose 108 Lactate Calcium 7.1 L Phosphorus Magnesium Total Bilirubin Direct Bilirubin AST ALT Alkaline Phosphatase C-Reactive Protein 4.6 H Total Protein Albumin Triglycerides Cholesterol LDL Cholesterol, Calc HDL Cholesterol Stool Occult Blood Negative
[2024-01-16] MEDS: predniSONE 20 MG TABLET PO (08:04)
[2024-01-16] MEDS: ACETAMINOPHEN 325 MG TABLET 650 MG PO ×2 (08:25→18:32)
[2024-01-16 08:41] LABS: C.Difficile Negative (Negative); CDIFFEPI 027 PRESUMPTIVE NEGATIVE (Negative)
[2024-01-16] MEDS: PREGABALIN 50 MG CAPSULE PO ×2 (09:22→21:11)
[2024-01-16] MEDS: sulfaSALAzine 500 MG TABLET 1000 MG PO ×2 (09:22→21:11)
[2024-01-16] MEDS: VALGANCICLOVIR 450 MG PO (09:23)
[2024-01-16] MEDS: LACTOBACILLUS ACIDOPHILUS 1 TABLET 1 TAB PO (09:23)
[2024-01-16] MEDS: MULTIVITAMIN/MINERALS 1 TABLET 1 TAB PO (09:23)
[2024-01-16] MEDS: DULOXETINE 30 MG CAPSULE DR 60 MG PO (09:23)
[2024-01-16] MEDS: FERROUS SULFATE 325 MG TABLET PO (09:23)
[2024-01-16] MEDS: SODIUM CHLORIDE 0.9 % (FLUSH) 10 ML SYRINGE 5 ML IVF ×2 (09:24→22:44)
[2024-01-16] MEDS: FUROSEMIDE 10 MG/ML inj 20 MG IVP (11:27)
--- NOTE | 2024-01-16 12:06 | REH.PT ---
Attempted to see pt this am. Pt with hgb of 6.6 and receiving blood transfusion. RN stated pt was about to receive 2nd unit. PT will follow up
[2024-01-16 15:40] LABS: Basophils Percent Auto 0.2 % (0.0-3.0); Hematocrit 32.6 % (33.0-51.0); Hemoglobin* 10.6 gm/dL (12.0-16.0); Immature Granulocytes Pct Auto 1.9 %; Lymphocytes Percent Auto 10.4 % (20-44); Mean Corpuscular HGB Conc 33 gm/dL (32-36); Mean Corpuscular Hemoglobin 32 pg (26-34); Mean Corpuscular Volume 97 fL (80-100); Monocytes Percent Auto 5.3 % (0.0-11.0); Neutrophils Percent Auto 82.2 % (42.0-72.0); Platelet Count* 59 K/uL (140-440); RDW Coefficient of Variation % 17.5 % (11.5-15.5); Red Blood Count 3.35 m/uL (4.00-5.20); White Blood Count* 14.45 K/uL (4.50-11.00)
[2024-01-16 15:41] LABS: Slide Review Reflex No
--- NOTE | 2024-01-16 17:29 | PC.NURSE ---
End of Shift: Patient pleasant and cooperative. Patient vitally stable, lungs course/diminished, BS WNL, IVs SL and intact. Patient rates generalized pain 6/10, tylenol and oxy 5 mg given once so far. Patient 2 assist/walker to commode, to this shift. Oliveros intact and draining. Patient received two units of blood and tolerated it well. Patient ordered two meals today and has drank 3 ensures. Patient is more awake and chatty today.
[2024-01-16] MEDS: ROSUVASTATIN CALCIUM 10 MG TABLET 5 MG PO (21:10)
[2024-01-16] MEDS: 0.9 % SODIUM CHLORIDE 250 ml IV (22:44)
[2024-01-17] VITALS (9 sets, daily range): BP systolic 117–153; BP diastolic 50–62; PULSE 86–105; RESP 16–20; TEMP 36.2–37; O2SAT 97–100
[2024-01-17] MEDS: OXYCODONE 5 MG TABLET PO ×4 (00:30→19:48)
[2024-01-17] MEDS: PIPERACILLIN/TAZOBACTAM 3.375 GM in 0.9 % SODIUM CHLORIDE Mini-bag 100 ML IVPB (04:16)
[2024-01-17 06:37] LABS: Basophils Absolute Auto 0.03 K/uL (0.00-0.30); Basophils Percent Auto 0.4 % (0.0-3.0); Eosinophils Absolute Auto 0.06 K/uL (0.00-0.50); Eosinophils Percent Auto 0.7 % (0.0-7.0); Hematocrit 28.7 % (33.0-51.0); Hemoglobin* 9.3 gm/dL (12.0-16.0); Immature Granulocytes Abs Auto 0.12 K/uL (0.00-0.30); Immature Granulocytes Pct Auto 1.4 %; Lymphocytes Percent Auto 15.4 % (20-44); Mean Corpuscular HGB Conc 32 gm/dL (32-36); Mean Corpuscular Hemoglobin 31 pg (26-34); Mean Corpuscular Volume 97 fL (80-100); Monocytes Percent Auto 6.8 % (0.0-11.0); Neutrophils Percent Auto 75.3 % (42.0-72.0); Platelet Count* 63 K/uL (140-440); RDW Coefficient of Variation % 18.9 % (11.5-15.5); Red Blood Count 2.96 m/uL (4.00-5.20); White Blood Count* 8.37 K/uL (4.50-11.00)
--- NOTE | 2024-01-17 06:45 | PC.NURSE ---
Shift note: Pt appeared more active, alert and oriented today compared to yesterday. Continue to be A2, walker and GB. Pain rated at 5. No fever, SOB and elevated HR noted. Vitally stable. Pt had adequate sleep. Pt had 1 loose greenish stool this morning. Oliveros draining clear yellowish colored urine.
[2024-01-17 06:48] LABS: Chloride* 114 mmol/L (96-114); Sodium* 138 mmol/L (135-149)
[2024-01-17 06:49] LABS: Potassium* 3.1 mmol/L (3.6-5.1)
[2024-01-17 06:51] LABS: Creatinine* 1.2 mg/dL (0.5-1.5); Est. Creatinine Clearance* 32.99; Estimated Glomerular Filt Rate 47 ml/min
[2024-01-17 06:52] LABS: Anion Gap 4 mEq/L (7-15); Blood Urea Nitrogen* 26 mg/dL (7-30); Carbon Dioxide* 20 mmol/L (20-32); Glucose* 87 mg/dL (60-115)
[2024-01-17 06:53] LABS: Calcium* 7.3 mg/dL (8.4-10.6)
[2024-01-17 07:03] LABS: Slide Review Reflex No
[2024-01-17] MEDS: POTASSIUM BICARB 25 MEQ EFFERVESCENT TAB 50 MEQ PO (07:54)
[2024-01-17] MEDS: predniSONE 20 MG TABLET PO (07:54)
[2024-01-17] MEDS: LACTOBACILLUS ACIDOPHILUS 1 TABLET 1 TAB PO (09:19)
[2024-01-17] MEDS: MULTIVITAMIN/MINERALS 1 TABLET 1 TAB PO (09:19)
[2024-01-17] MEDS: FERROUS SULFATE 325 MG TABLET PO (09:19)
[2024-01-17] MEDS: ACETAMINOPHEN 325 MG TABLET 650 MG PO ×2 (09:19→19:48)
[2024-01-17] MEDS: DULOXETINE 30 MG CAPSULE DR 60 MG PO (09:20)
[2024-01-17] MEDS: PREGABALIN 50 MG CAPSULE PO ×2 (09:21→21:11)
[2024-01-17] MEDS: VALGANCICLOVIR 450 MG PO (09:21)
[2024-01-17] MEDS: sulfaSALAzine 500 MG TABLET 1000 MG PO ×2 (10:57→21:12)
[2024-01-17] MEDS: SODIUM CHLORIDE 0.9 % (FLUSH) 10 ML SYRINGE 5 ML IVF ×2 (10:57→21:12)
--- NOTE | 2024-01-17 15:07 | PM.IMPN1 ---
Progress Note: A&P Assessment and plan (1) Sepsis: Problem details: Patient presents with altered mental status, profound weakness, hypothermia at home, tachycardia, elevated white blood count, lactate and acute kidney injury. Initially responding well to fluid resuscitation. Source of sepsis remains unclear. Cultures negative so far. Stop antibiotics. Status: Acute (2) Weakness: Problem details: Relatively severe weakness at this point needing assist of 2 to get out of bed. Likely will require retirement facility or higher level of care at discharge Status: Inactive (3) Adrenal insufficiency: Problem details: She has had the appearance of adrenal insufficiency with each hospital admission. Chronically on prednisone 7.5 mg. Seems to respond very well to short course of IV hydrocortisone. Switch to increased dose of oral prednisone. Plan taper back to 7.5 mg daily over the next few days Status: Inactive (4) Bronchiectasis: Problem details: Currently not symptomatic Status: Inactive (5) Altered mental status: Problem details: Patient had confusion and difficulty giving history on previous admissions. Mental status appears closer to baseline today. Status: Inactive (6) Frailty syndrome in geriatric patient: Problem details: Probably need retirement facility for rehab prior to going home. PT and OT to evaluate Status: Inactive (7) Fall: Problem details: Multiple bruises related to falls. No apparent significant injury or fracture. Likely significant blood loss in her left hip soft tissue. Most likely explanation for acute anemia. Status: Acute (8) Rheumatoid arthritis: Problem details: Previously on methotrexate and prednisone. Methotrexate stopped in September. Prednisone increased to 15 mg daily in September and tapered now to 7.5 mg daily. Stress dose steroids Status: Acute (9) Chronic pain: Problem details: It appears fibromyalgia and rheumatoid arthritis pain are significant cause of pain as well. Started on Lyrica and changed to duloxetine. Has chronically use some hydrocodone Status: Acute (10) Fibromyalgia: Problem details: On Lyrica and duloxetine Status: Acute (11) Cognitive impairment: Problem details: [place] on 10/22/2023 is 2330. Status: Acute (12) Hypotension: Problem details: Suspected to be due to sepsis on admission. Likely blood loss anemia is significant contributor if not the primary cause. Will hold metoprolol if heart rate allows. Status: Acute (13) Diarrhea: Problem details: Check for C diff. monitor for GI bleeding. Status: Acute (14) Edema: Problem details: Patient has edema from fluid resuscitation. Caution with ongoing fluid resuscitation. Caution with diuresis due to low blood pressure. Poor nutrition, low albumin also contributing. Status: Acute (15) Blood loss anemia: Problem details: Likely this is primarily due to fall with large area of bruising/hematoma over the left flank and buttock. No obvious fracture. Continue to trend hemoglobin and today will transfuse 2 units packed red cells Status: Acute (16) Hematoma: Problem details: Large left hip, thigh, buttock hematoma due to recent fall with probable large amount of bleeding secondary to apixaban therapy and fall. Status: Acute (17) Discharge planning issues: Problem details: Likely needs detention. Mission Worker making arrangements. Status: Acute Plan Continue in-hospital for monitoring of abnormal vitals, blood loss anemia, weakness pending detention placement Time Spent With Patient Total time spent: Total time spent today is 45 minutes in coordination of care Subjective Date Seen: 01/17/24 Interval history: Tanner James is a 78 year old female with complicated past medical history admitted through the emergency department with progressive weakness and recent falls. She has chronic weakness, rheumatoid arthritis, aortic stenosis status post TAVR, COPD, obesity, fibromyalgia, anxiety, stage 3 chronic kidney disease, history of pulmonary embolism on anticoagulation, history of left nephrectomy. She fell 2 days ago and was seen in our emergency department. Evaluation at that time did not show any serious injury. Evaluation included CT of her head, radiographs of the right hip, CT of her right femur and ultrasound of her leg. She returned home. She was feeling weak and having some pain from her soft tissue injuries. but otherwise not feeling ill. Today she fell again. She had radiographs of her left hip and shoulder which showed no acute fracture. She was discharged to home again. At home she was seen to be profoundly weak and cool to the touch. She had a temperature taken at home of 94 ? F. because of this she was brought back to the emergency room. In our emergency room she was hypotensive with cool extremities and altered mental status. Evaluation included blood tests and IV fluids. Subsequently IV antibiotics were started. She had elevated lactate at 5.9, elevated white blood count at 19 point 2, hemoglobin of 9.4 with a baseline of 12, lactate of 5.9, creatinine 1.7 with a baseline of 1. I am called to evaluate her for admission. Currently we have no availability of ICU level care and so patient is being assessed for appropriateness of admission here or at a higher level of care. With the resuscitation that she has received so far her blood pressure is now normalized. Her mentation is back to normal as well. Her vital signs are normal. There is no obvious source of sepsis. January 14: Overnight with resuscitation for sepsis including fluids, antibiotics, steroids she has had improvement in her vital signs which are now relatively normal. She remains profoundly weak. She reports a very poor appetite and has been eating little. She is not having and abdominal pain. No fever. No new symptoms overnight. January 15: Patient continued to have relative low blood pressure and poor urine output so received another bolus of fluid last night. Today she reports feeling profoundly weak. She reports having some back pain with activity. She is comfortable at rest but reports her low back hurts when she is moving around. She is requiring heavy assist of 2 to stand and transfer. She had a large loose diarrhea stool this morning. January 16: Patient reports feeling a little better today. She reports her appetite is improving a little bit. She still profoundly weak. Still needing heavy assist of 2 to transfer. No fever. No dyspnea or cough. She tolerated transfusions well with no adverse effect. Exam Narrative: Exam Narrative: She is alert and appears in no distress. Mood and affect are brighter today. Respirations with few basilar crackles bilaterally. Breathing is unlabored. Cardiovascular: S1, S2, regular rate and rhythm. Abdomen is soft without tenderness or mass. Two to 3+ edema in her extremities. Left hip with large amount of bruising Const: Vital Signs, click to edit/add: Vital Signs - 24 hr 01/16/24 15:41 01/16/24 15:42 01/16/24 15:42 Temperature 98.5 F Pulse Rate 81 Pulse Rate [Pulse Oximeter] 87 87 Respiratory Rate 20 20 Blood Pressure Blood Pressure [Ri ght Arm] 117/56 L Blood Pressure [le ft forarm] Pulse Oximetry 100 Oxygen Delivery Me thod Room Air 01/16/24 15:50 01/16/24 19:00 01/16/24 22:47 Temperature 98.5 F 97.5 F L Pulse Rate 87 Pulse Rate [Pulse Oximeter] 83 89 Respiratory Rate 20 20 20 Blood Pressure 117/56 L Blood Pressure [Ri ght Arm] 166/55 H Blood Pressure [le ft forarm] Pulse Oximetry 100 100 Oxygen Delivery Me thod Room Air 01/16/24 22:47 01/16/24 23:00 01/17/24 02:53 Temperature 97.7 F 97.7 F Pulse Rate 78 Pulse Rate [Pulse Oximeter] 89 86 Respiratory Rate 20 20 Blood Pressure Blood Pressure [Ri ght Arm] 134/53 L 139/62 Blood Pressure [le ft forarm] Pulse Oximetry 98 97 Oxygen Delivery Me thod Room Air Room Air 01/17/24 07:48 01/17/24 08:00 01/17/24 11:00 Temperature 97.2 F L 97.5 F L Pulse Rate 90 Pulse Rate [Pulse Oximeter] 105 H 97 Respiratory Rate 18 18 Blood Pressure Blood Pressure [Ri ght Arm] 153/60 H Blood Pressure [le ft forarm] 117/53 L Pulse Oximetry 100 100 Oxygen Delivery Me thod Room Air Nasal Cannula Documenting provider has reviewed patient's vital signs: yes Labs Labs: Laboratory Results - last 24 hr 01/16/24 01/16/24 01/17/24 06:04 15:26 06:00 WBC 14.45 H 8.37 RBC 3.35 L 2.96 L Hgb 10.6 L 9.3 L Hct 32.6 L 28.7 L MCV 97 97 MCH 32 31 MCHC 33 32 RDW Coeff of Navneet 17.5 H 18.9 H Plt Count 59 L 63 L Neut % (Auto) 82.2 H 75.3 H Lymph % (Auto) 10.4 L 15.4 L [place] % (Auto) 5.3 6.8 Eos % (Auto) 0.0 0.7 Baso % (Auto) 0.2 0.4 Neut # (Auto) 11.90 H 6.30 Lymph # (Auto) 1.50 1.30 [place] # (Auto) 0.80 0.60 Eos # (Auto) 0.00 0.06 Baso # (Auto) 0.00 0.03 Abs Immat Gran (auto) 0.30 0.12 Imm/Tot Granulo (auto) 1.9 1.4 Sodium 138 Potassium 3.1 L Chloride 114 Carbon Dioxide 20 Anion Gap 4 L BUN 26 Creatinine 1.2 Estimated Creat Clear 32.99 Estimated GFR 47 Glucose 87 Calcium 7.3 L C-Reactive Protein 3.0 H Crossmatch (AHG) See Detail
--- NOTE | 2024-01-17 16:18 | PC.SOCIAL ---
Addendum entered by VISHAL Fitzgerald 01/17/24 16:27: Faxed referral to [facility] in [place] for review. This is patient's second choice and family is ok with this. Original Note: Discharge planning- Per therapy, patient will need short-term rehab stay. Patient has been to [facility] in the past. Met with patient and discussed discharge plans. Patient would like to go to [facility]. Patient is open to going to [facility] in [place], if [facility] don't have openings. Patient would like her daughter, Claribel, to be updated. E-mail to Bell Collins in admissions at [facility], they have openings. Secure e-mailed referral for review. Phone call to patient's daughter, Claribel, to provide update. Claribel informs that she would like patient to return to [facility], if possible. Informed that referral was sent and this worker will update her on facility decision. Social work will continue to follow up as needed.
--- NOTE | 2024-01-17 19:07 | PC.NURSE ---
End of Shift: This AM the patient was noted to be orientated to self and month only, upon 1500 assessment the patient was A&Ox3. The patient has limited range of motion in BUE... L shoulder/ arm is noted to be worse since the fall. Ecchymosis and erythema noted on BUE.... L flank and buttock ecchymosis is noted. The patient rates her pain generalized between a 5-7 controlled with PRN oxy. Bilateral Lower Extremity edema... DANIELLE wraps applied, the patient complained that they were hurting her so I loosened them. Calls appropriately. Encouraging PO intake as her arango output has been minimal this shift @ 275.... was notified. Jenifer VIDES BSN
[2024-01-17] MEDS: ROSUVASTATIN CALCIUM 10 MG TABLET 5 MG PO (21:11)
[2024-01-18] MEDS: OXYCODONE 5 MG TABLET PO ×5 (00:41→20:46)
[2024-01-18] MEDS: ACETAMINOPHEN 325 MG TABLET 650 MG PO ×3 (00:41→20:47)
[2024-01-18 03:00] VITALS: BP 127/55; PULSE 89; RESP 16; TEMP 36.5; O2SAT 98
--- NOTE | 2024-01-18 05:28 | PC.NURSE ---
[id number]: Pt is A&O X3. Pt denies CP, N/V, SOB. Pt expressed generalized pain throughout the body during the shift rating it 7/10. PRN pain medication was given at the beginning of the shift and right before bedtime. Pt has a wound in the midline of her abdomen that is bandaged. Clean, dry, and intact. Ecchymosis and erythema noted on BUE. BLE edema, Pt asked to have a break from the DANIELLE wraps to rest. Removed. Continued encouragement given for PO intake. Pts arango is intact, patent, and draining. Uses call light appropriately. ?
[2024-01-18 06:53] LABS: Basophils Absolute Auto 0.04 K/uL (0.00-0.30); Basophils Percent Auto 0.5 % (0.0-3.0); Eosinophils Absolute Auto 0.07 K/uL (0.00-0.50); Eosinophils Percent Auto 0.9 % (0.0-7.0); Hematocrit 29.3 % (33.0-51.0); Hemoglobin* 9.3 gm/dL (12.0-16.0); Immature Granulocytes Pct Auto 1.3 %; Lymphocytes Absolute Auto 1.83 K/uL (0.90-2.90); Lymphocytes Percent Auto 23.1 % (20-44); Mean Corpuscular HGB Conc 32 gm/dL (32-36); Mean Corpuscular Hemoglobin 32 pg (26-34); Mean Corpuscular Volume 99 fL (80-100); Monocytes Percent Auto 6.6 % (0.0-11.0); Neutrophils Absolute Auto 5.35 K/uL (1.7-7.0); Neutrophils Percent Auto 67.6 % (42.0-72.0); Platelet Count* 61 K/uL (140-440); RDW Coefficient of Variation % 18.9 % (11.5-15.5); Red Blood Count 2.95 m/uL (4.00-5.20); White Blood Count* 7.91 K/uL (4.50-11.00)
[2024-01-18 07:01] LABS: Slide Review Reflex No
[2024-01-18 07:16] LABS: Chloride* 111 mmol/L (96-114); Potassium* 4.2 mmol/L (3.6-5.1); Sodium* 139 mmol/L (135-149)
[2024-01-18 07:19] LABS: Anion Gap 3 mEq/L (7-15); Blood Urea Nitrogen* 25 mg/dL (7-30); Carbon Dioxide* 25 mmol/L (20-32); Creatinine* 1.1 mg/dL (0.5-1.5); Est. Creatinine Clearance* 35.99; Estimated Glomerular Filt Rate 52 ml/min
[2024-01-18 07:20] LABS: Calcium* 8.1 mg/dL (8.4-10.6); Glucose* 84 mg/dL (60-115)
[2024-01-18 07:43] VITALS: BP 143/59; PULSE 91; RESP 18; TEMP 36.3; O2SAT 100
[2024-01-18] MEDS: VALGANCICLOVIR 450 MG PO (07:47)
[2024-01-18] MEDS: sulfaSALAzine 500 MG TABLET 1000 MG PO ×2 (07:48→20:47)
[2024-01-18] MEDS: PREGABALIN 50 MG CAPSULE PO ×2 (07:48→20:45)
[2024-01-18] MEDS: DULOXETINE 30 MG CAPSULE DR 60 MG PO (07:48)
[2024-01-18] MEDS: predniSONE 10 MG TABLET 15 MG PO (07:48)
[2024-01-18] MEDS: SODIUM CHLORIDE 0.9 % (FLUSH) 10 ML SYRINGE 5 ML IVF ×2 (07:49→20:47)
[2024-01-18] MEDS: FERROUS SULFATE 325 MG TABLET PO (07:49)
[2024-01-18] MEDS: LACTOBACILLUS ACIDOPHILUS 1 TABLET 1 TAB PO (07:49)
[2024-01-18] MEDS: MULTIVITAMIN/MINERALS 1 TABLET 1 TAB PO (07:49)
[2024-01-18 08:56] VITALS: PULSE 87
--- NOTE | 2024-01-18 11:49 | P.IMPN_ITS ---
Progress Note: A&P Assessment and plan (1) Sepsis: Problem details: Patient presents with altered mental status, profound weakness, hypothermia at home, tachycardia, elevated white blood count, lactate and acute kidney injury. Initially responding well to fluid resuscitation. Source of sepsis remains unclear. Cultures negative so far. Stop antibiotics. No ongoing evidence of serious infection Status: Acute (2) Weakness: Problem details: Relatively severe weakness at this point needing assist of 2 to get out of bed. Now transferring with EZ stand. Likely will require retirement facility or higher level of care at discharge Status: Inactive (3) Adrenal insufficiency: Problem details: She has had the appearance of adrenal insufficiency with each hospital admission. Chronically on prednisone 7.5 mg. Seems to respond very well to short course of IV hydrocortisone. Switch to increased dose of oral prednisone. Plan taper back to 7.5 mg daily over the next few days. Status: Inactive (4) Bronchiectasis: Problem details: Currently not symptomatic. Status: Inactive (5) Altered mental status: Problem details: Patient had confusion and difficulty giving history on previous admissions. Mental status appears back to baseline . Status: Inactive (6) Frailty syndrome in geriatric patient: Problem details: Probably need retirement facility for rehab prior to going home. PT and OT to evaluate Status: Inactive (7) Fall: Problem details: Multiple bruises related to falls. No apparent significant injury or fracture. Likely significant blood loss in her left hip soft tissue. Most likely explanation for acute anemia. Status: Acute (8) Rheumatoid arthritis: Problem details: Previously on methotrexate and prednisone. Methotrexate stopped in September. Prednisone increased to 15 mg daily in September and tapered now to 7.5 mg daily. Stress dose steroids Status: Acute (9) Chronic pain: Problem details: It appears fibromyalgia and rheumatoid arthritis pain are significant cause of pain as well. Started on Lyrica and changed to duloxetine. Has chronically use some hydrocodone. Low back pain may represent some sciatica going into her right leg. Status: Acute (10) Fibromyalgia: Problem details: On Lyrica and duloxetine Status: Acute (11) Cognitive impairment: Problem details: [place] on 10/22/2023 is 2330. Status: Acute (12) Hypotension: Problem details: Suspected to be due to sepsis on admission. Likely blood loss anemia is significant contributor if not the primary cause. Resume metoprolol for heart rate control. Continue to monitor blood pressure. Status: Acute (13) Diarrhea: Problem details: Check for C diff. monitor for GI bleeding. Status: Acute (14) Edema: Problem details: Patient has edema from fluid resuscitation. Caution with ongoing fluid resuscitation. Caution with diuresis due to low blood pressure. Poor nutrition, low albumin also contributing. Status: Acute (15) Blood loss anemia: Problem details: Likely this is primarily due to fall with large area of bruising/hematoma over the left flank and buttock. No obvious fracture. Continue to trend hemoglobin and today will transfuse 2 units packed red cells Status: Acute (16) Hematoma: Problem details: Large left hip, thigh, buttock hematoma due to recent fall with probable large amount of bleeding secondary to apixaban therapy and fall. Status: Acute (17) Discharge planning issues: Problem details: Likely needs fci. Nude Model making arrangements. Status: Acute Plan Continue in-hospital for monitoring of acute and chronic illness including laboratory tests and vital signs. Anticipate discharge to retirement facility. Time Spent With Patient Total time spent: Total time spent today is 40 minutes in coordination of care Subjective Date Seen: 01/18/24 Interval history: Tanner James is a 78 year old female with complicated past medical history admitted through the emergency department with progressive weakness and recent falls. She has chronic weakness, rheumatoid arthritis, aortic stenosis status post TAVR, COPD, obesity, fibromyalgia, anxiety, stage 3 chronic kidney disease, history of pulmonary embolism on anticoagulation, history of left nephrectomy. She fell 2 days ago and was seen in our emergency department. Evaluation at that time did not show any serious injury. Evaluation included CT of her head, radiographs of the right hip, CT of her right femur and ultrasound of her leg. She returned home. She was feeling weak and having some pain from her soft tissue injuries. but otherwise not feeling ill. Today she fell again. She had radiographs of her left hip and shoulder which showed no acute fracture. She was discharged to home again. At home she was seen to be profoundly weak and cool to the touch. She had a temperature taken at home of 94 ? F. because of this she was brought back to the emergency room. In our emergency room she was hypotensive with cool extremities and altered mental status. Evaluation included blood tests and IV fluids. Subsequently IV antibiotics were started. She had elevated lactate at 5.9, elevated white blood count at 19 point 2, hemoglobin of 9.4 with a baseline of 12, lactate of 5.9, creatinine 1.7 with a baseline of 1. I am called to evaluate her for admission. Currently we have no availability of ICU level care and so patient is being assessed for appropriateness of admission here or at a higher level of care. With the resuscitation that she has received so far her blood pressure is now normalized. Her mentation is back to normal as well. Her vital signs are normal. There is no obvious source of sepsis. January 14: Overnight with resuscitation for sepsis including fluids, antibiotics, steroids she has had improvement in her vital signs which are now relatively normal. She remains profoundly weak. She reports a very poor appetite and has been eating little. She is not having and abdominal pain. No fever. No new symptoms overnight. January 15: Patient continued to have relative low blood pressure and poor urine output so received another bolus of fluid last night. Today she reports feeling profoundly weak. She reports having some back pain with activity. She is comfortable at rest but reports her low back hurts when she is moving around. S he is requiring heavy assist of 2 to stand and transfer. She had a large loose diarrhea stool this morning. January 16: Patient reports feeling a little better today. She reports her appetite is improving a little bit. She still profoundly weak. Still needing heavy assist of 2 to transfer. No fever. No dyspnea or cough. She tolerated transfusions well with no adverse effect. January 17: Patient reports no new concerns today. Still continues to be quite weak. Still is having some back pain with activity. She reports transferring with the EZ stand is uncomfortable for her. Leg compression is also uncomfortable. She reports no dyspnea, cough, fever, chest pain, abdominal pain, nausea, diarrhea. Appetite is fairly good. Exam Narrative: Exam Narrative: She is alert and appears in no distress. Mood and affect are bright. Respirations are clear to auscultation with a rare basilar crackle. Cardiovascular: S1, S2, regular rate and rhythm. Abdomen: Bowel sounds active. Abdomen is soft without tenderness. Prominent left hip bruising unchanged. Lower extremity exam: She is unable to lift her right leg off the bed though she can get her foot few inches above the mattress. Right hip flexion is weak on the right. Knee flexion and extension and ankle dorsiflexion plantar flexion are normal. Edema is stable. Const: Vital Signs, click to edit/add: Vital Signs - 24 hr 01/17/24 16:00 01/17/24 16:23 01/17/24 19:00 Temperature 98.6 F 97.6 F Pulse Rate 96 Pulse Rate [Pulse Oximeter] 90 96 Respiratory Rate 18 16 Blood Pressure [le ft forarm] 130/57 L 139/50 L Pulse Oximetry 99 100 Oxygen Delivery Me thod Room Air Room Air 01/17/24 22:48 01/17/24 23:00 01/18/24 03:00 Temperature 98.2 F 97.7 F Pulse Rate 88 Pulse Rate [Pulse Oximeter] 88 89 Respiratory Rate 16 16 Blood Pressure [le ft forarm] 134/57 L 127/55 L Pulse Oximetry 100 98 Oxygen Delivery Me thod Room Air Room Air 01/18/24 07:43 01/18/24 08:56 Temperature 97.3 F L Pulse Rate 87 Pulse Rate [Pulse Oximeter] 91 Respiratory Rate 18 Blood Pressure [le ft forarm] 143/59 H Pulse Oximetry 100 Oxygen Delivery Me thod Room Air Documenting provider has reviewed patient's vital signs: yes Labs Labs: Laboratory Results - last 24 hr 01/18/24 06:13 WBC 7.91 RBC 2.95 L Hgb 9.3 L Hct 29.3 L MCV 99 MCH 32 MCHC 32 RDW Coeff of Navneet 18.9 H Plt Count 61 L Neut % (Auto) 67.6 Lymph % (Auto) 23.1 [place] % (Auto) 6.6 Eos % (Auto) 0.9 Baso % (Auto) 0.5 Neut # (Auto) 5.35 Lymph # (Auto) 1.83 [place] # (Auto) 0.50 Eos # (Auto) 0.07 Baso # (Auto) 0.04 Abs Immat Gran (auto) 0.10 Imm/Tot Granulo (auto) 1.3 Sodium 139 Potassium 4.2 Chloride 111 Carbon Dioxide 25 Anion Gap 3 L BUN 25 Creatinine 1.1 Estimated Creat Clear 35.99 Estimated GFR 52 Glucose 84 Calcium 8.1 L
--- NOTE | 2024-01-18 15:25 | PC.SOCIAL ---
Discharge planning- Patient's recommendation is SNF for rehab. Phone call to patient's daughter, Claribel, to provide update and get more SNF options. Patient's daughter is ok with [facility], [facility], and the facilities in [place]. Contacted the following SNF's for potential placement. 1. [facility]- Follow up phone call to Bell Collins in admissions. Sent referral yesterday. [facility] is declining patient for admission due to not having a bed. 2. [facility]- Faxed referral for review. Confirmed with FILEMON Phan that the referral was received and is being reviewed by Nursing. 3. [facility]- There are openings, faxed referral for review. 4. [facility]- Faxed referral for review to [phone]. 5. [facility] [place]- Faxed referral for review to [phone]. Social work will continue to follow up on locating SNF placement.
[2024-01-18 15:30] VITALS: BP 163/59; PULSE 98; RESP 20; TEMP 36.3; O2SAT 99
[2024-01-18 19:00] VITALS: BP 180/72; PULSE 114; RESP 18; TEMP 36.3; O2SAT 98
--- NOTE | 2024-01-18 19:37 | PC.NURSE ---
Alert and orientated, Oliveros removed today and harjeet care provided.... generalized/r hip pain controlled with PRN oxy and Ice pack. Ax2 w/ EZ stand voiding well after Oliveros removal. Encourage PO intake of fluids. WOC care for medial abdomen was performed.... noted to not have tunneling, appears to be healing well. Bilateral DANIELLE wraps applied tolerating well. Calls appropriately. Jenifer VIDES BSN
[2024-01-18] MEDS: ROSUVASTATIN CALCIUM 10 MG TABLET 5 MG PO (20:46)
[2024-01-18] MEDS: METOPROLOL SUCCINATE (XL) 25 MG TAB PO (20:46)
[2024-01-18 23:00] VITALS: BP 144/60; PULSE 106; RESP 16; TEMP 36.3; O2SAT 98
[2024-01-19 03:00] VITALS: BP 142/60; PULSE 93; RESP 18; TEMP 36.3; O2SAT 96
--- NOTE | 2024-01-19 06:05 | PC.NURSE ---
[id number]: Pt is A&O X3. Pt denies CP, N/V, SOB. Pt expressed that she is having intermittent headaches but stated ?not severe enough to talk about or need anything for.? Generalized pain throughout the body during the shift rating it 7/10. PRN pain medication was administered. Pt midline abdomen is C/D/I. Ecchymosis and erythema noted on BUE. BLE edema, Pt asked to have a break from the DANIELLE wraps to rest overnight. Removed. Pt uses call light appropriately. Pt is continent and transferred to toilet with EZ stand and assist x2.?
[2024-01-19 06:26] LABS: Basophils Absolute Auto 0.03 K/uL (0.00-0.30); Basophils Percent Auto 0.4 % (0.0-3.0); Eosinophils Absolute Auto 0.09 K/uL (0.00-0.50); Eosinophils Percent Auto 1.2 % (0.0-7.0); Hematocrit 28.8 % (33.0-51.0); Hemoglobin* 9.1 gm/dL (12.0-16.0); Immature Granulocytes Abs Auto 0.13 K/uL (0.00-0.30); Immature Granulocytes Pct Auto 1.7 %; Lymphocytes Absolute Auto 1.82 K/uL (0.90-2.90); Lymphocytes Percent Auto 23.5 % (20-44); Mean Corpuscular HGB Conc 32 gm/dL (32-36); Mean Corpuscular Hemoglobin 32 pg (26-34); Mean Corpuscular Volume 101 fL (80-100); Monocytes Percent Auto 6.6 % (0.0-11.0); Neutrophils Absolute Auto 5.15 K/uL (1.7-7.0); Neutrophils Percent Auto 66.6 % (42.0-72.0); Platelet Count* 71 K/uL (140-440); RDW Coefficient of Variation % 18.5 % (11.5-15.5); Red Blood Count 2.86 m/uL (4.00-5.20); White Blood Count* 7.73 K/uL (4.50-11.00)
[2024-01-19 06:29] LABS: Slide Review Reflex No
[2024-01-19 06:46] LABS: Chloride* 113 mmol/L (96-114); Potassium* 4.1 mmol/L (3.6-5.1); Sodium* 140 mmol/L (135-149)
[2024-01-19 06:49] LABS: Anion Gap 4 mEq/L (7-15); Blood Urea Nitrogen* 31 mg/dL (7-30); Carbon Dioxide* 23 mmol/L (20-32); Est. Creatinine Clearance* 39.59; Estimated Glomerular Filt Rate 58 ml/min
[2024-01-19 06:50] LABS: Calcium* 8.5 mg/dL (8.4-10.6); Glucose* 105 mg/dL (60-115)
[2024-01-19 08:30] VITALS: BP 136/66; PULSE 96; RESP 18; TEMP 36.2; O2SAT 100
[2024-01-19] MEDS: VALGANCICLOVIR 450 MG PO (09:11)
[2024-01-19] MEDS: predniSONE 10 MG TABLET PO (09:11)
[2024-01-19] MEDS: PREGABALIN 50 MG CAPSULE PO (09:11)
[2024-01-19] MEDS: LACTOBACILLUS ACIDOPHILUS 1 TABLET 1 TAB PO (09:11)
[2024-01-19] MEDS: MULTIVITAMIN/MINERALS 1 TABLET 1 TAB PO (09:11)
[2024-01-19] MEDS: sulfaSALAzine 500 MG TABLET 1000 MG PO (09:11)
[2024-01-19] MEDS: FERROUS SULFATE 325 MG TABLET PO (09:11)
[2024-01-19] MEDS: DULOXETINE 30 MG CAPSULE DR 60 MG PO (09:11)
[2024-01-19] MEDS: METOPROLOL SUCCINATE (XL) 25 MG TAB PO (09:11)
[2024-01-19] MEDS: ACETAMINOPHEN 325 MG TABLET 650 MG PO (09:30)
[2024-01-19] MEDS: OXYCODONE 5 MG TABLET PO (09:30)
--- NOTE | 2024-01-19 10:41 | PC.SOCIAL ---
Discharge planning- Received a phone call from Lizz in admissions at [facility] at [phone]. [facility] can accept patient for admission. They can offer a private room for $35/day or a shared room. Met with patient and discussed discharge plans. Patient will accept the bed at [facility]. Patient would like a shared room. Patient will transport via non-emergency EMS at 11:00 am. Patient is currently using an EZ Stand to transfer and is requiring two to transfer, so patient will not pay fee for EMS (covered under medicare). Completed preadmission screening. Confirmation #[id number]. Secure e-mailed copy of PAS and discharge orders to Lizz in admissions at [facility]. Social work will follow up as needed.
--- NOTE | 2024-01-19 12:56 | P.DS_ITS ---
DS: Providers Provider Date Seen: 01/19/24 Date of admission: 01/15/24 01:25 Primary care physician: Kyle Healy MD Admitting Clinician: Alejandro Vasquez MD Attending Physician on discharge: Alejandro Vasquez MD Date of Discharge: 01/19/24 DS: Diagnosis Discharge Diagnosis (1) Sepsis: Status: Acute Problem details: Patient presents with altered mental status, profound weakness, hypothermia at home, tachycardia, elevated white blood count, lactate and acute kidney injury. Initially responding well to fluid resuscitation. No identified infection. Patient responded well to resuscitation. IV antibiotics given for 3 days then discontinued. (2) Weakness: Status: Inactive Problem details: Relatively severe weakness at this point needing assist of 2 to get out of bed. Now transferring with EZ stand. Likely will require shelter facility or higher level of care at discharge (3) Adrenal insufficiency: Status: Inactive Problem details: She has had the appearance of adrenal insufficiency with each hospital admission. Chronically on prednisone 7.5 mg. Seems to respond very well to short course of IV hydrocortisone. Switch to increased dose of oral prednisone. Tapered back to 7.5 mg daily (4) Bronchiectasis: Status: Inactive Problem details: Currently not symptomatic. (5) Altered mental status: Status: Inactive Problem details: Patient had confusion and difficulty giving history on previous admissions. Mental status appears back to baseline . (6) Frailty syndrome in geriatric patient: Status: Inactive Problem details: Probably need shelter facility for rehab prior to going home. PT and OT to evaluate (7) Fall: Status: Acute Problem details: Multiple bruises related to falls. No apparent significant injury or fracture. Likely significant blood loss in her left hip soft tissue. Most likely explanation for acute anemia. (8) Rheumatoid arthritis: Status: Acute Problem details: Previously on methotrexate and prednisone. Methotrexate stopped in September. Prednisone increased to 15 mg daily in September and tapered now to 7.5 mg daily. Stress dose steroids (9) Chronic pain: Status: Acute Problem details: It appears fibromyalgia and rheumatoid arthritis pain are significant cause of pain as well. Started on Lyrica and changed to duloxetine. Has chronically use some hydrocodone. Low back pain may represent some sciatica going into her right leg. (10) Fibromyalgia: Status: Acute Problem details: On Lyrica and duloxetine (11) Cognitive impairment: Status: Acute Problem details: [place] on 10/22/2023 is 23/30. (12) Hypotension: Status: Acute Problem details: Suspected to be due to sepsis on admission. Now it seems likely that blood loss anemia is significant contributor if not the primary cause of hypotension. (13) Diarrhea: Status: Acute Problem details: Check for C diff. monitor for GI bleeding. (14) Edema: Status: Acute Problem details: Patient has edema from fluid resuscitation. Caution with ongoing fluid resuscitation. Caution with diuresis due to low blood pressure. Poor nutrition, low albumin also contributing. (15) Blood loss anemia: Status: Acute Problem details: Likely this is primarily due to fall with large area of bruising/hematoma over the left flank and buttock. No obvious fracture. Continue to trend hemoglobin and today will transfuse 2 units packed red cells (16) Hematoma: Status: Acute Problem details: Large left hip, thigh, buttock hematoma due to recent fall with probable large amount of bleeding secondary to apixaban therapy and fall. (17) Discharge planning issues: Status: Acute Problem details: Likely needs residential. [employer] Tender making arrangements. DS: Summary Hospital Course Hospital Course: Tanner James is a 78 year old female with complicated past medical history admitted through the emergency department with progressive weakness and recent falls. She has chronic weakness, rheumatoid arthritis, aortic stenosis status post TAVR, COPD, obesity, fibromyalgia, anxiety, stage 3 chronic kidney disease, history of pulmonary embolism on anticoagulation, history of left nephrectomy. She fell 2 days ago and was seen in our emergency department. Evaluation at that time did not show any serious injury. Evaluation included CT of her head, radiographs of the right hip, CT of her right femur and ultrasound of her leg. She returned home. She was feeling weak and having some pain from her soft tissue injuries. but otherwise not feeling ill. Today she fell again. She had radiographs of her left hip and shoulder which showed no acute fracture. She was discharged to home again. At home she was seen to be profoundly weak and cool to the touch. She had a temperature taken at home of 94 ? F. because of this she was brought back to the emergency room. In our emergency room she was hypotensive with cool extremities and altered mental status. Evaluation included blood tests and IV fluids. Subsequently IV antibiotics were started. She had elevated lactate at 5.9, elevated white blood count at 19 point 2, hemoglobin of 9.4 with a baseline of 12, lactate of 5.9, creatinine 1.7 with a baseline of 1. I am called to evaluate her for admission. Currently we have no availability of ICU level care and so patient is being assessed for appropriateness of admission here or at a higher level of care. With the resuscitation that she has received so far her blood pressure is now normalized. Her mentation is back to normal as well. Her vital signs are normal. There is no obvious source of sepsis. Since admission patient has done well. No definite infection was found and IV antibiotics were discontinued after 3 days. During those 3 days her left hip became remarkably bruised and she developed anemia suggesting that internal bleeding was the cause of her hypotension and other problems on admission. She received blood transfusion of 2 units and her hemoglobin has stabilized at 9.1 over the last 3 days. She remains profoundly weak and is requiring and EZ stand for transfers. Status at Discharge Functional status at discharge: uses cane/walker Overall status at discharge: patient is progressing back to baseline Time Spent with Patient Time attestation: Total time spent providing and/or coordinating discharge services: 40 minutes Time spent: Greater than 30 minutes Exam Narrative: Exam Narrative: She is alert appears in no distress. She is oriented to her circumstances. Respirations are clear to auscultation except a rare basilar crackle. Cardiovascular: S1, S2, regular rate and rhythm. Abdomen is soft without tenderness. Marked left hip, buttock and flank bruising. Ongoing 2 to 3+ lower extremity edema Const: Vital Signs, click to edit/add: Vital Signs - 24 hr 01/18/24 15:30 01/18/24 19:00 01/18/24 23:00 Temperature 97.4 F L 97.4 F L 97.3 F L Pulse Rate [Pulse Oximeter] 98 114 H 106 H Respiratory Rate 20 18 16 Blood Pressure [Ri ght Arm] 180/72 H 144/60 H Blood Pressure [le ft forarm] 163/59 H Pulse Oximetry 99 98 98 Oxygen Delivery Me thod Room Air Room Air Room Air 01/19/24 03:00 Temperature 97.3 F L Pulse Rate [Pulse Oximeter] 93 Respiratory Rate 18 Blood Pressure [Ri ght Arm] 142/60 H Blood Pressure [le ft forarm] Pulse Oximetry 96 Oxygen Delivery Me thod Room Air Documenting provider has reviewed patient's vital signs: yes DS: Data Data Completed and Pending Completed studies during hospitalization: Procedures Drainage of Right Pleural Cavity, Percutaneous Approach, Diagnostic (12/21/21) Insertion of Infusion Device into Left Internal Jugular Vein, Percutaneous Approach (12/21/21) Introduction of Other Gas into Respiratory Tract, Via Natural or Artificial Opening (04/26/23) Labs on day of discharge: Labs from last 24 hours 01/19/24 06:09 WBC 7.73 RBC 2.86 L Hgb 9.1 L Hct 28.8 L MCV 101 H MCH 32 MCHC 32 RDW Coeff of Navneet 18.5 H Plt Count 71 L Neut % (Auto) 66.6 Lymph % (Auto) 23.5 [place] % (Auto) 6.6 Eos % (Auto) 1.2 Baso % (Auto) 0.4 Neut # (Auto) 5.15 Lymph # (Auto) 1.82 [place]on # (Auto) 0.50 Eos # (Auto) 0.09 Baso # (Auto) 0.03 Abs Immat Gran (auto) 0.13 Imm/Tot Granulo (auto) 1.7 Sodium 140 Potassium 4.1 Chloride 113 Carbon Dioxide 23 Anion Gap 4 L BUN 31 H Creatinine 1.0 Estimated Creat Clear 39.59 Estimated GFR 58 Glucose 105 Calcium 8.5 Preliminary micro results at discharge 01/14/24 21:10 Blood Culture - Preliminary Blood NO GROWTH AFTER 96 HOURS 01/14/24 21:05 Blood Culture - Preliminary Blood NO GROWTH AFTER 96 HOURS Discharge Plan Discharge Disposition: [facility] Date of Admission: 01/15/24 01:25 Attending Provider on Discharge: Alejandro Vasquez Primary Care Provider: Kyle Healy Condition: Unchanged Discharge Medications: New ferrous sulfate 325 mg (65 mg iron) Tablet 325 mg PO DAILY Qty: 100 0RF Continued pregabalin 50 mg capsule 50 mg PO BID Qty: 180 3RF duloxetine 60 mg capsule,delayed release(DR/EC) 60 mg PO DAILY Qty: 90 3RF prednisone 5 mg tablet 7.5 mg PO DAILY sulfasalazine 500 mg tablet 1 g PO BID Rx Instructions: give with food (meal/snack) tramadol 50 mg tablet 50 mg PO BID PRN (Reason: pain) Qty: 60 2RF cholecalciferol (vitamin D3) 50 mcg (2,000 unit) capsule 50 mcg PO DAILY multivitamin Tablet 1 tab PO QAM metoprolol succinate 25 mg tablet extended release 24 hr 25 mg PO BID Qty: 180 3RF Eliquis 5 mg tablet 2.5 mg PO BID Qty: 90 3RF Lactobacillus acidophilus 0.5 mg (100 million cell) tablet 100 mmu cells PO DAILY diclofenac sodium [Voltaren Arthritis Pain] 1 % gel 2 g topical QID PRNQty: 100 0RF Rx Instructions: apply to single elbow, wrist or hand; for hand includes palm/fingers/back of hand valganciclovir 450 mg tablet 450 mg PO DAILY rosuvastatin 5 mg tablet 5 mg PO HS hydrocodone-acetaminophen 5-325 mg tablet 1 tab PO BID PRN (Reason: pain) potassium chloride 10 mEq capsule, extended release 10 meq PO DAILY Qty: 90 3RF furosemide 40 mg tablet 40 mg PO DAILY Qty: 90 3RF Discontinued ferrous fumarate-vitamin C 66-125 mg tablet,chewable 1 tab PO DAILY Discharge Orders: Discharge Order (Routine); Ordered 01/19/24 Ordered By: Alejandro Vasquez Activity Level: Activity as Tolerated, Up with assist and Use Walker Discharge Diet: Regular Follow Up Appointments: Kyle Healy MD [Primary Care Provider] - Forms: [facility] Info Instructions Admit to: SNF Discharge Potential: Fair Length of Stay: 30-90 days Can use facility standing orders?: Yes Code Status: DNR/DNI Rehab Potential: Fair Therapy: Physical Therapy and Occupational Therapy Therapy Orders: Evaluate and Treat Urinary Catheter: No Lab Orders: CBC and basic metabolic panel in one week
== END 2024-01-19 10:52 | DRG 813 ==
LOC: ED 21:35 → MEDSURG 01-15 01:24
PROVIDERS: Family Medicine; Admitting Provider Family Medicine; Emergency Provider Emergency Medicine Emergency Medical Services; PCP Family Medicine; Visit Provider Family Medicine
DX: D68.32 Hemorrhagic disorder due to extrinsic circulating anticoagulants (principal); D62 Acute posthemorrhagic anemia; E27.40 Unspecified adrenocortical insufficiency; I13.0 Hypertensive heart and chronic kidney disease with heart failure and stage 1 through stage 4 chronic kidney disease, or unspecified chronic kidney disease; R65.10 Systemic inflammatory response syndrome (SIRS) of non-infectious origin without acute organ dysfunction; N17.9 Acute kidney failure, unspecified; T45.515A Adverse effect of anticoagulants, initial encounter; S70.12XA Contusion of left thigh, initial encounter; S70.02XA Contusion of left hip, initial encounter; S30.0XXA Contusion of lower back and pelvis, initial encounter; J47.9 Bronchiectasis, uncomplicated; Z91.81 History of falling; M06.9 Rheumatoid arthritis, unspecified; G89.29 Other chronic pain; M79.7 Fibromyalgia; G31.84 Mild cognitive impairment of uncertain or unknown etiology; I95.89 Other hypotension; R19.7 Diarrhea, unspecified; R60.9 Edema, unspecified; W19.XXXA Unspecified fall, initial encounter; I50.9 Heart failure, unspecified; N18.30 Chronic kidney disease, stage 3 unspecified; Z90.5 Acquired absence of kidney; W18.30XA Fall on same level, unspecified, initial encounter
CPT/HCPCS: 36415; 36430; 51701; 70450; 71260; 73030; 73502; 74177; 80048; 80061; 80076; 81001; 82270; 83605; 83735; 84100; 84484; 85018; 85025; 86140; 86850; 86900; 86901; 86922; 87040; 87086; 87493; 87631; 93005; 93971; 94761; 97110; 97116; 97140; 97162; 97166; 97530; 97535; 99283; 99284; 99285; A9153; A9270; J1720; J1940; J2543; J3370; J7030; J7050; J7120; J7512; P9016; Q9967

== ENCOUNTER 2024-01-19 10:56 | Outpatient (CLI) | payer MEDICARE, OTHER, SELFPAY ==
--- OUTSIDE RECORDS SUMMARY | 2024-01-24 15:16 | XMS_ITS | Data Portability ---
Author Organization [facility], [facility] Address [address] [place] [address] Assessment No assessment recorded. Plan of Treatment [...] with a nephrect gilmar. Lamont Bravo MD [address] [place] [address],[facility] [address] [place] [address], [phone], [facility] 16:32:18 Recurrent urinary tract infection Active 022 Managed with daily Bactrim Lamont Bravo MD [address] [place] [address],[address], [place], [address], [facility] 16:32:42 Problem Notes None recorded. Procedures Surgical History Date Name Laterality Status Provider Name and Address Organization Details Recorded Time 07/11/19 NEPHRECTOMY, HAND ASSISTED LAPAROSCOPIC (SURG) completed Mary msos [facility] 07/17/2021 09:46:04 Imaging Results None recorded. Procedure Notes None recorded. Medical Equipment None Reported. Allergies Allergen ID Allergen Name Allergen Category Reaction Reaction Severity Criticality Documentation Date Start Date Code Code System Note Provider Name and Address Organization Details Recorded Time 581633 Non-stero idal anti-infl ammatory agent (product) medicatio n Not available Not available Not available 03/20/2021 78592 005 SNOMED Lamont Bravo MD [address] [place] [address],[address], [place], [address], [facility] 1 16:22:56 [id number] Levaquin medicatio n Not available Not available Not available 03/20/2021 [id number] Bree Bravo MD [address] [place] [address],[address], [place], [address], [facility] 1 16:23:24 [id number] levofloxa giorgio medicatio n other Not available Not available 08/11/20212021 [id number] Bree Bravo MD [address] [place] [address],[address], [place], [address], [facility] 2 16:06:24 [id number] terbinafi ne hydrochlo ride medicatio n fever headache Not available Not available Not available 08/11/20212019 [id number] 8 Bree Bravo MD [address] [place] [address],[address], [place], [address], [facility] 2 16:06:24 Medications Name Sig Start [...] Updated DateTime 03/20/2021 160.02 cm 33.7 kg/m2 02200.55 g Lamont Bravo MD [address] [place] [address],[address], [phone] [place] [address] Urolog 03/20/2021 16:22:47 Date Recorded Body height Body mass index (BMI) Body weight Provider Name and Address Organization Details Last Updated DateTime 08/11/2021 160.02 cm 28.3 kg/m2 14324.78 g Lamont Bravo MD [address] [place] [address],[address] 08/11/2021 16:06:06 Social History Question Answer Notes LastModified by Organizat ion Details LastModified Time Tobacco Smoking Status Never Smoker Lamont Bravo MD [address] [place] [address],[address] [address], [facility] 03/20/2021 16:24:21 What Is Your Level [...] polysaccharide PPV23 04/30/2010 completed Lamont Bravo MD [address] [place] [address],[address], [address], [facility] 08/11/2021 16:07:09 Pneumococcal conjugate PCV 13 01/31/2015 completed Lamont Bravo MD [address] [place] [address],[address], [place], [address], [facility] 08/11/2021 16:07:09 pneumococcal polysaccharide PPV23 03/28/2015 completed Lamont Bravo MD [address] [place] [address],[address], [place], [address], [facility] 08/11/2021 16:07:09 Pneumococcal conjugate PCV 13 03/28/2016 completed Lamont Bravo MD [address] [place] [address],[address], [place], [address], [facility] 08/11/2021 16:07:10 pneumococcal polysaccharide PPV23 03/09/2016 completed Lamont Bravo MD [address] [place] [address],[address], [place], [address], [facility] 08/11/2021 16:07:10 Past Encounters Encounter ID Performer Location Encounter Start Date Encounter Closed Date Diagnosis/Indication Diagnosis SNOMED-CT Code [id number] MD TAMIKA [place] [address] [place] [address] 03/20/2021 16:12:05 03/24/2021 11:06:39 Kidney stone [id number] MD TAMIKA [place] 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 Health Concerns Section Related Observation LastModified by Organization Detai ls LastModified Time None Recorded Concern Status LastModified by Organization Details LastModified Time None Recorded Advance Directives Directive None Recorded Payers Encounter Date Sequence Insurance Name Policy Number Policy Oshea Covered Member ID Oshea Member ID Guarantor Name 03/20/2021 1 [place] [employer] [facility] Tanner James [id number] Tanner Brown Erika 03/20/2021 2 [employer] [facility] (MEDICARE SUPPLEMENT) Tanner James [id number] Tanner Brown Erika 08/11/2021 1 [place] [employer] Tanner James [id number] Tanner James 08/11/2021 2 [employer] [place] (MEDICARE SUPPLEMENT) Tanner James [id number] Tanner James Notes Date Note Type Note Provider Name and Address Organization Details Recorded Time 03/20/2021 text/html HPI Notes: New patient here to discuss nephrectomy. She fell when she was at [facility] and that led to a CT scan that showed an atrophic kidney and a staghorn stone. She's had recurrent pyelonephritis as well. She had ESWL in 2002. She also has a poor aortic valve. Lamont Bravo MD [address] [place] [address],[address] [place] [address], [phone], [facility] 03/20/2021 17:02:40 08/11/2021 text/html HPI Notes: She h as recovered well from surgery. 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 Lamont Bravo MD [address] [place] [address],[address], [place], [address], [facility] 08/11/2021 16:37:50 OBGyn Episode No OBEpisode recorded.
--- OUTSIDE RECORDS SUMMARY | 2024-01-24 15:16 | XMS_ITS | Clinical Summary ---
Author Organization [facility] Address [place], [place] [address] Care Team Providers Care Piano Professor Name Role Phone Swapnil Henley MD Unavailable Marlys Woodruff RD Unavailable Funmi Medina Unavailable [phone] Kyle Healy MD Primary Care Provider [phone] Allergies Active Allergy Reactions Criticality Noted Date Comments Terbinafine Hcl Fever,Headache 04/29/2020 Headaches, fever Levofloxacin Other - Describe In Comment Field 07/09/2021 Severe tendon issues Nsaids (Non-Steroidal Anti-Inflammatory Drug) GI Bleeding 01/22/2017 Medications Medication Sig Dispensed Refills Start Date End Date Status Cholecalciferol, Vitamin D3, (VITAMIN D-3) 2,000 unit tabletIndications:Vi tamin D deficiency Take 1 tablet by mouth once daily. 0 5 Active multivit-min/iron/fo lic acid/K (ADULTS MULTIVITAMIN ORAL) Take 1 Tab by mouth once daily. 6 Active rosuvastatin (CRESTOR) 5 mg tabletIndications:Dy slipidemia Take 1 tablet by mouth at bedtime. 90 tablet 3 0 Active furosemide (Lasix) 20 mg tablet Take 40 mg by mouth every morning. Active ferrous sulfate, 65 mg elemental, (Iron) tablet Take 325 mg by mouth once daily with a meal. Active metoprolol succinate (TOPROL XL) 25 mg Sustained-Release tablet Take 1 Tablet (25 mg) by mouth two times daily. 3 Active apixaban (ELIQUIS) 2.5 mg tabletIndications:pu lmonary thromboembolism Take 1 Tablet (2.5 mg) by mouth two times daily. 4 Active DULoxetine (CYMBALTA) 60 mg Delayed-release capsule Take 60 mg by mouth once daily. Active Lactobacillus acidophilus 0.5 mg (100 million cell) tab Take 1 Tablet by mouth once daily in the morning. 4 Active potassium chloride (MICRO-K) 10 mEq Controlled-release capsule Take 10 mEq by mouth once daily. 4 Active predniSONE (DELTASONE) 5 mg tablet Take 1.5 Tablets (7.5 mg) by mouth once daily in the morning. 4 Active pregabalin (LYRICA) 50 mg capsule Take 50 mg by mouth two times daily. 4 Active sulfaSALAzine (AZULFIDINE) 500 mg tablet Take 1,000 mg by mouth two times daily. 4 Active diclofenac topical (VOLTAREN) 1 % gel Apply topically to affected area(s) 4 times daily if needed. Active acetaminophen (TYLENOL EXTRA STRGTH) 500 mg tablet Take 2 Tablets (1,000 mg) by mouth three times daily. Max acetaminophen dose: 4000mg in 24 hrs. 4 Active oxyCODONE (ROXICODONE) 5 mg immediate release tablet Take 1-2 Tablets (5-10 mg) by mouth every 4 hours if needed for Pain (Take 1 tablet for pain 1-5/10 and Take 2 tablets for pain 6-10/10). 4 Active sennosides (SENNA) 8.6 mg tablet Take 1 Tablet (8.6 mg) by mouth 2 times daily if needed for Constipation. 4 Active Lactobacillus acidophilus (PROBIOTIC) 10 billion cell cap Take 1 Capsule by mouth once daily. 01/21/20 Discontinue d(*Medicati on adjustment) folic acid 1 mg tablet Take 3 tablets by mouth once daily. 0 0 01/21/20 Discontinue d(*Patient states no longer taking) sodium chloride (OCEAN) 0.65 % nasal solutionIndications: Nasal dryness Inhale 2 Sprays into affected nostril(s) every 30 minutes if needed for Nasal Congestion or Nasal Dryness. 45 mL 1 01/21/20 Discontinue d(*Patient states no longer taking) predniSONE (DELTASONE) 5 mg tablet Take 10 mg by mouth once daily with a meal. 01/21/20 Discontinue d(*Medicati on adjustment) PARoxetine (PAXIL) 20 mg tablet Take 20 mg by mouth at bedtime. 01/21/20 Discontinue d(*Patient states no longer taking) valGANciclovir (Valcyte) 450 mg tablet Take 450 mg by mouth once daily with a meal. 01/21/20 Discontinue d(*Disconti nued by another clinician) acetaminophen (TYLENOL) 325 mg tabletIndications:Fi bromyalgia Take 2 Tablets (650 mg) by mouth every 4 hours if needed for Pain (For mild pain.). Max acetaminophen dose: 4000mg in 24 hrs. 0 3 01/21/20 Discontinue d(*Patient states no longer taking) albuterol (PROVENTIL) 0.083 % neb solution Inhale 3 mL (2.5 mg) via a nebulizer two times daily. May give an additional 2.5 mg via neb twice daily if needed. OK to mix albuterol neb solution and 3% sodium chloride solution together during BID administrations. 0 3 01/21/20 Discontinue d(*Patient states no longer taking) sodium chloride 3% nebulization 3 % nebulizer solutionIndications: Bronchiectasis with acute lower respiratory infection (HC) Inhale 4 ml (one vial) via nebulization route, twice daily. OK to mix albuterol neb solution and 3% sodium chloride solution together during BID administrations. 0 3 01/21/20 Discontinue d(*Patient states no longer taking) artificial tears, peg 400-propylene glycol, (Systane) 0.4-0.3 % ophthalmic dropperette Place 2 Drops into both eyes two times daily. 0 3 01/21/20 Discontinue d(*Patient states no longer taking) sennosides (SENNA) 8.6 mg tablet Take 1 Tablet (8.6 mg) by mouth two times daily. Hold for loose stools. 0 3 01/21/20 Discontinue d(*Patient states no longer taking) ascorbic acid, vitamin C, (Vitamin C) 1,000 mg tablet Take 0.5 Tablets (500 mg) by mouth once daily. 3 01/21/20 Discontinue d(*Patient states no longer taking) guaiFENesin (Mucinex) 600 mg Extended-Release tablet Take 2 Tablets (1,200 mg) by mouth 2 times daily if needed for Expectoration. 3 01/21/20 Discontinue d(*Patient states no longer taking) nystatin powder (MYCOSTATIN) powderIndications:Ye ast infection of the skin Apply topically to affected area(s) two times daily. 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 20 Tablet 4 01/21/20 Discontinue d(*Patient states no longer taking) polyethylene glycol (MIRALAX; GLYCOLAX) 17 g per packet packetIndications:Co nstipation, unspecified constipation type Take 17 g by mouth or nasogastric tube once daily if needed for Constipation. 4 01/21/20 Discontinue d(*Patient states no longer taking) HYDROcodone-acetamin ophen (5-325 mg/tablet) Take 1 Tablet by mouth 2 times daily if needed. 4 01/21/20 Discontinue d(*Disconti nued by another clinician) Lactobacillus acidophilus 0.5 mg (100 million cell) tab Take 2 Tablets by mouth once daily in the morning. 4 01/21/20 Discontinue d(*Medicati on adjustment) traMADoL (ULTRAM) 50 mg tablet Take 50 mg by mouth 2 times daily if needed. 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 Patient discontinued 05/2012. 12/20/2012 start venlafaxine 37.5mg Osteopenia 12/07/2011 05/05/2023 Overview: Welding Process Engineer wants patient to be on alendronate indefinitely [...] [facility]; ENDOSCOPY REVEALED SHALLOW GASTRIC [...] Encounters Date Type Department Care Team Description 01/24/2024 10:30 AM CDT [facility] [address] [address] Renae Pruett NP Transitional Care Visit (Initial) 01/24/2024 Lab Requisition [address] [address] Milvia Almeida MD 01/22/2024 Nurse Triage [address] [address] Renae Pruett NP Blood In Urine 01/21/2024 9:30 AM CDT [facility] [address] [address] Milvia Almeida MD Transitional Care Visit (Admit) 01/19/2024 Nurse Triage [address] [address] Renae Pruett NP Skin Problem 11/12/2023 Lab Requisition [facility] [phone] Luci Meza NP 10/29/2023 Lab Requisition [facility] [phone] Juaquin Jones MD from Last 3 Months [...] Comments Blood Pressure 159/76 07/27/2023 1:14 PM [facility]NER Pulse 52 07/27/2023 1:14 PM MENU PLANNER Temperature 36.4 ??C (97.6 ??F) 07/01/2023 8:06 AM CS T Respiratory Rate 16 07/09/2023 3:27 PM MENU PLANNER Oxygen Saturation 97% 07/27/2023 1:14 PM MENU PLANNER Inhaled Oxygen Concentration - - Weight 80.3 kg (177 lb) 07/27/2023 1:14 PM MENU PLANNER Height 160 cm (5' 3) 07/27/2023 1:14 PM MENU PLANNER Body Mass Index 31.35 07/27/2023 1:14 PM MENU PLANNER Plan of Treatment Health Maintenance Due Date Last Done Comments Hepatitis C screening for age 18-79 1963 Depression screening for age 12+ 01/18/2020 01/17/2019, 01/12/2018, 03/09/2016, Additional history exists Medicare Wellness for age 65+ 01/18/2020 01/17/2019, 01/12/2018, 12/20/2012 Tetanus booster 05/28/2022 05/28/2012, 03/15/2003 COVID-19 vaccine series (2022- season) 2023 03/24/2022, 05/02/2021, 09/10/2020, Additional [...] 02/27/2015, 11/26/2011 Medical Devices Implanted Type Area Stone Sawyer Device Identifier Shelf Expiration Date Model / Serial / Lot Screw Tsrh Og Thin 6.5x50mm - [id number] Implanted:Qty: 3 on 04/28/2010 at [facility] N/A: Spine [employer] [id number] / / Screw Locking 4x20mm Fine Tip Titnm - [id number] Implanted:Qty: 4 on 04/28/2010 at [facility] Commutable [id number] # / / Screw Thin Crest 6.5x45mm - [id number] Implanted:Qty: 1 on 04/28/2010 at [facility] [id number]# / / Set Screw 3dx - [id number] Implanted:Qty: 4 on 04/28/2010 at [facility] [id number]# / / Cnnctr Tsrh 3dx Sm - [id number] Implanted:Qty: 4 on 04/28/2010 at [facility] Medtronic [id number]# / / Rios 3.5cmx5.5mm Pre-Cut - [id number] Implanted:Qty: 2 on 04/28/2010 at [facility] [id number]# / / Kit Infuse Md - [id number] Implanted:Qty: 1 on 04/28/2010 at [facility] Spine [facility] 10/26/2012 [id number]# / / [id number] Filler Bio [id number] - [id number] Implanted:Qty: 1 on 04/28/2010 at [facility] [id number]# / / [id number] Synfix Lr 26mm Implanted:Qty: 1 on 04/28/2010 at [facility] Spine Commut[employer] [id number] S / / [id number] Description:SYNFIX LR 26MM Procedures Procedure Name Priority Date/Time Associated Diagnosis Comments HEMOGLOBIN Routine 01/24/2024 6:53 AM CDT Anemia, unspecified BASIC METABOLIC PANEL Routine 11/16/2023 7:10 AM [...] to Health Maintenance Results * (ABNORMAL) HEMOGLOBIN (01/24/2024 6:53 AM CDT) Only the most recent of2 resultswithin the time period is included. Pathologist [facility] HEMOGLOBIN 10.6(L) 12.0 - 16.0 g/dL 01/24/2024 7:05 AM CDT [facility] MCV 103(H) 80 - 100 fL 01/24/2024 7:05 AM CDT [facility] Blood BLOOD SPECIMEN / Unknown Venipuncture / Unknown 01/24/2024 6:53 AM CDT 01/24/2024 7:03 AM CDT Milvia Almeida MD HEMATOLOGY [facility] [address] [place] [address], * (ABNORMAL) BASIC METABOLIC PANEL (11/16/2023 7:10 AM CDT) Only the most recent of2 resultswithin the time period is included. Pathologist [facility] SODIUM 147(H) 136 - 145 mmol/L 11/16/2023 8:23 AM [facility] POTASSIUM 4.2 3.5 - 5.1 mmol/L 11/16/2023 8:23 AM [facility] CHLORIDE 108(H) 98 - 107 mmol/L 11/16/2023 8:23 AM [facility] CO2,TOTAL 30(H) 22 - 29 mmol/L 11/16/2023 8:23 AM [facility] ANION GAP 9 5 - 18 11/16/2023 8:23 AM [facility] GLUCOSE 86 70 - 99 mg/dL 11/16/2023 8:23 AM [facility] CALCIUM 8.9 8.8 - 10.2 mg/dL 11/16/2023 8:23 AM [facility] BUN 27(H) 8 - 23 mg/dL 11/16/2023 8:23 AM [facility] CREATININE 1.18(H) 0.50 - 0.90 mg/dL 11/16/2023 8:23 AM [facility] BUN/CREAT RATIO 23(H) 10 - 20 8:23 AM [facility] eGFR 48(L) >90 mL/min/1.7 3m2 11/16/2023 8:23 AM [facility] Comment:As of 2021, eG FR is calculated by the CKD-EPI creatinine equation without race adjustment. ??eGFR can be influenced by muscle mass, exercise, and diet. ??The reported eGFR is an estimation only and is only applicable if the renal function is stable. Blood BLOOD SPECIMEN / Unknown Venipuncture / Unknown 11/16/2023 7:10 AM CDT 11/16/2023 7:54 AM [facility] Luci Meza NP CHEMISTRY [facility] [address] [place] [address] * (ABNORMAL) CBC WITH AUTO DIFFERENTIAL (11/02/2023 8:05 AM CDT) WHITE BLOOD COUNT 7.4 4.5 - 11.0 thou/cu mm 11/02/2023 12:05 PM [facility] RED BLOOD COUNT 3.79(L) 4.00 - 5.20 mil/cu mm 11/02/2023 12:05 PM [facility] HEMOGLOBIN 12.4 12.0 - 16.0 g/dL 11/02/2023 12:05 PM [facility] HEMATOCRIT 39.9 33.0 - 51.0 % 11/02/2023 12:05 PM [facility] MCV 105(H) 80 - 100 fL 11/02/2023 12:05 PM [facility] MCH 32.7 26.0 - 34.0 pg 11/02/2023 12:05 PM [facility] MCHC 31.1(L) 32.0 - 36.0 g/dL 11/02/2023 12:05 PM [facility] RDW 16.1(H) 11.5 - 15.5 % 11/02/2023 12:05 PM [facility] PLATELET COUNT 148 140 - 440 thou/cu mm 11/02/2023 12:05 PM [facility] MPV 11.0 6.5 - 11.0 fL 11/02/2023 12:05 PM [facility] Blood BLOOD SPECIMEN / Unknown Butterfly / Unknown 11/02/2023 8:05 AM CDT 11/02/2023 10:00 AM CDT Juaquin Jones MD HEMATOLOGY [facility] [address] [place] [address] * (ABNORMAL) RED CELL MORPHOLOGY (11/02/2023 8:05 AM CDT) ELLIPTOCYTES Few 11/02/2023 12:05 PM [facility] RBC COMMENT Present(A) RBC morphology appears normal, RBC morphology within normal limits for newborns. 11/02/2023 12:05 PM T [facility] LARGE PLATELETS Present 12:05 PM T [facility] Blood BLOOD SPECIMEN / Unknown Butterfly / Unknown 11/02/2023 8:05 AM CDT 11/02/2023 10:00 AM CDT Juaquin Jones MD HEMATOLOGY Performing Organization Address City/[facility]/ZIP Co de Phone Number [facility] [address] [place] [address] * PLATELET ESTIMATE (11/02/2023 8:05 AM CDT) PLATELET ESTIMATE Adequate Adequate, No estimate 11/02/2023 12:05 PM T [facility] Blood BLOOD SPECIMEN / Unknown Butterfly / Unknown 11/02/2023 8:05 AM CDT 11/02/2023 10:00 AM CDT Juaquin Jones MD HEMATOLOGY [facility] [address] [place] [address] * MANUAL DIFFERENTIAL (11/02/2023 8:05 AM CDT) % NEUTROPHILS 66.0 % 11/02/2023 12:05 PM [facility] % LYMPHOCYTES 29.0 % 11/02/2023 12:05 PM [facility] % MONOCYTES 4.0 % 11/02/2023 12:05 PM [facility] % EOSINOPHILS 1.0 % 11/02/2023 12:05 PM [facility] % BASOPHILS 0.0 % 11/02/2023 12:05 PM [facility] NEUTROPHILS ABSOLUTE 4.9 1.7 - 7.0 thou/cu mm 11/02/2023 12:05 PM [facility] LYMPHOCYTES ABSOLUTE 2.1 0.9 - 2.9 thou/cu mm 11/02/2023 12:05 PM CDT [facility] MONOCYTES ABSOLUTE 0.3 <0.9 thou/cu mm 11/02/2023 12:05 PM CDT [facility] EOSINOPHILS ABSOLUTE 0.1 <0.5 thou/cu mm 11/02/2023 12:05 PM CDT [facility] BASOPHILS ABSOLUTE 0.0 <0.3 thou/cu mm 11/02/2023 12:05 PM CDT [facility] Blood BLOOD SPECIMEN / Unknown Butterfly / Unknown 11/02/2023 8:05 AM CDT 11/02/2023 10:00 AM CDT Juaquin Jones MD HEMATOLOGY Performing Organization Address City/State/[facility] Co de Phone Number [facility] [address] [place] [address] * XR DXA BONE DENSITY 2 SITES AXIAL (02/02/2018 3:00 PM CDT) Anatomical Region Laterality Modality Spine, HIPS, HIPL, HIPR Other 02/02/2018 3:41 PM CDT Narrative 02/02/2018 3:44 PM CDT EXAM: XR DXA BONE DENSITY 2 SITES AXIAL INDICATION: Disorder of bone. ??Osteopenia. ??Postmenopausal. TECHNIQUE: Standardized bone density measurements were obtained using the [employer] bone densitometry system. COMPARISON: None. FINDINGS: SPINE: [...] bone density measurements were obtained using the [employer] bone densitometry system. COMPARISON: None. 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 Luo Dentistry - General 01/12/18
--- OUTSIDE RECORDS SUMMARY | 2024-01-24 15:17 | XMS_ITS | Continuity of Care Document ---
Author Organization [facility] Address [address] [place] [address] Phone Care Team Providers Care Biometric Technician Name Role Phone Unavailable Unavailable Unavailable Advance Directives Directive Yes / No Effective Date File Name No Information Encounters Encounter Description Practice Location Reason(s) For Visit Diagnoses Date Provider Providers Copied on Encounter Z [facility], [address], [place], [address], [place] tel:[phone] [facility] [employer] [facility] No Information [phone] No Information Family [...]
--- OUTSIDE RECORDS SUMMARY | 2024-01-24 15:17 | XMS_ITS | Encounter Summary ---
Author Organization [facility] Address [address], [place] [address] Care Team Providers Care Lock Maintenance Supervisor Name Role Phone Basilio Healy MD Primary Care Provider [phone] Reason for Visit * Reason Comments Infusion * Infusion Therapy Plan (Routine) - Authorized Specialty Diagnoses / Procedures Referred By Contac t Referred To Contact Rheumatology Diagnoses Age-related osteoporosis without current pathological fracture (HRC) Man Sánchez MD [address] [place] [address] [facility] [address] [place] [address] Referral ID Status Reason Start Date Expiration Date V isits Requested Visits Authorized [id number] Authorized 01/07/2023 04/07/2024 [id number] Encounter Details Date Type Department Care Team (Latest Contact Info) Description 12/20/2023 9:17 AM CDT - 12/20/2023 11:59 PM CDT Hospital Encounter [facility] [address] [place] [address] Alycia Sosa MD [address] [place] [address] [phone] Age-related osteoporosis without current pathological fracture (HRC) [...] Info) Description 04/17/2024 12:00 PM CDT Appointment [facility] [address] [place] [address] Man Sánchez MD [address] [place] [address] documented as of this encounter Visit Diagnoses [...] mg documented in this encounter Care Teams Lock Maintenance Supervisor Relationship Specialty Start Date End Date Basilio Healy MD [facility] [address] [place] [address] PCP - General Family Practice 10/28/22 documented as of this encounter
--- OUTSIDE RECORDS SUMMARY | 2024-01-24 15:17 | XMS_ITS | Clinical Summary ---
Author Organization [facility] Address [address] [place] [address] Care Team Providers Care Nut Sorter Operator Name Role Phone Basilio Healy MD Primary Care Provider [phone] Source Comments You are receiving this document as you are listed as the primary care provider,follow-up provider, or the patient has been referred to you for consultation.This is in compliance with the Medicare andOhiohealth [facility] Hospitalcaid EHR Incentive Program,which states Providers who transition their patient to another setting of careor provider of care or refers their patient to another provider of care shouldprovide summary care record for each transition of care or referral. Bee Ware Allergies Active Allergy Reactions Criticality Noted Date [...] Patient receives drug assistance for Enbrel from [employer]. 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 Patient discontinued 05/2012. 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 Pulmonary Lab [address] [place] [address] [place] [address] Bronchiectasis, uncomplicated (HRC) (Primary Dx) Discharge Disposition: Home 12/14/2023 Telephone [facility] [address] [place] [address] Man Sánchez MD IV,THERAPY 12/13/2023 3:10 PM CDT Lab Visit [facility] [address] [place] [address] Rheumatoid arthritis involving multiple joints (HRC); High risk medication use 12/13/2023 1:00 PM CDT Office Visit [facility] [address] [place] [address] Man Sánchez MD Rheumatoid arthritis involving multiple joints (HRC) (Primary Dx); High risk medication use; Primary osteoarthritis of both knees; Current chronic use of systemic steroids; Age related osteoporosis, unspecified pathological fracture presence (HRC) 10/27/2023 Notes/Orders [facility] 3800 Rheumatology [address] [facility] [place] [address] Man Sánchez MD 10/27/2023 Telephone [facility] Pulmonary Medicine [address]31 [place] [address] Shara Mitchell MD Hospital / Follow Up 10/26/2023 10:40 AM CDT Ancillary Procedure Radiology PACS [address] [place] [address] Provider, Foreign Images from Last 3 Months Immunizations Name Administration Dates Next Due Flu Vac (3+ yrs) 04/03/2013, 2,04/30/2010, 009,04/10/2003 Flu Vac Preserv Free (3+yrs) 04/30/2010,04/15/20 09 HepA Adult (19+ yrs) 10/20/2004,03/07/2004 HepA Ped/Adol (1-18 yrs) 10/20/2004 HepA, Pediatric (DO NOT USE; for MIIC only) 10/20/2004 IPV (Polio) 03/07/2004 Influenza (Fluad) 04/19/2018 Influenza IIV3 (Trivalent) F luzone Highdose, 65+ Yrs (16916) 04/25/2019,03/09/2016,03/30/2014 Influenza IIV4 (Quadrivalent ) 0.5mL (09795) 04/23/2021,04/25/2019,04/19/2018, 016,03/30/2014,04/03/2013,04/15/2012,08/2009,04/15/2009,04/10/2003 Influenza IIV4 (Quadrivalent ) Fluzone, [...] Info) Description 04/17/2024 12:00 PM CDT Appointment [facility] [address] [place], [place] [address] Man Sánchez MD [address] [place], [place] [id number] Health Maintenance Due Date Last Done Comments [...] - 0.5 mg/dL 12/13/2023 5:21 PM CDT [facility] Blood Venipuncture / Unknown 12/13/2023 1:56 PM CDT 12/13/2023 1:56 PM CDT Man Sánchez MD LAB_1 [facility] [address] [place] [address], [facility] * Sedimentation Rate (ESR) (12/13/2023 1:56 PM CDT) Sedimentation Rate 2 0 - 20 mm/hr 12/13/2023 2:32 PM CDT [facility] Blood Venipuncture / Unknown 12/13/2023 1:56 PM CDT 12/13/2023 1:56 PM CDT Man Sánchez MD LAB_1 Performing Organization Address [facility] Co de Phone Number [facility] [address] [place] [address] * Pulmonary Function Test - Complete (12/13/2023 8:05 AM CDT) 12/13/2023 8:05 AM CDT Shara Mitchell MD PN PFT ORDERABLES Performing Organization Address [facility] Co de Phone Number PN MAMTA * Foreign Image(s) CT Angio Chest (10/26/2023 10:40 AM CDT) Narrative POCT - 11/02/2023 10:36 AM CDT These outside images have been uploaded into PACS. If the results were provided, they will be located in the patient's chart under the Media or Imaging tab. Foreign Images Provider RAD NON-REPORTAB LES Performing Organization Address City/[facility] Co de Phone Number POCT * [...] not included. Patient Name: Tanner James Densitometer: Money Dashboard W Appt Dept/Resource: Granda Bone Density GRANDA [...] trabecular bone, and is derived from the [id number]-nv-[id number] changes of bone density embedded in the [...] Performed by Real Time PCR CLIA Number [id number] HCV Quant iu/ml <12 IU/ml HP CONVERSION Comment:CLIA Number [id number] HCV Quant Log iu/ml <1.08 Log IU/ml HP CONVERSION Comment: Performed at [facility], [address] [place] [address] [place] ??[address] [place] Number [id number] 12/12/2015 11:4 4 AM CDT 12/12/2015 3:01 PM CDT Swapnil Henley MD LAB_1 HP CONVERSION from Last 3 Months or Most Recently Relevant to Health Maintenance Advance Directives Documents on File Type Date Recorded 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
--- OUTSIDE RECORDS SUMMARY | 2024-01-24 15:17 | XMS_ITS | Continuity of Care Document ---
Author Organization [facility] Address [address] [facility] [place] [address] Phone Care Team Providers Care Ground Crew Chief Name Role Phone Will Charles MASON Unavailable Unavailabl e Advance Directives Directive Yes / No Effective Date File Name No Information Encounters Encounter Description Practice Location Reason(s) For Visit Diagnoses Date Provider Providers Copied on Encounter [facility], [address] [place] [address], [id number], [place] tel:[phone] [facility] [place] No Information Will Charles. [address] [facility] [place], [place], [id number], [place]. tel:[phone] Family History Family Member Type Diagnosis Age [...]
--- OUTSIDE RECORDS SUMMARY | 2024-01-24 15:17 | XMS_ITS | Encounter Summary ---
Author Organization [facility] Address [address] [place] [address] Care Team Providers Care Enterprise Application Administrator Name Role Phone Basilio Healy MD Primary Care Provider [phone] Reason for Referral * Procedure/Equipment (Routine) - Incomplete Specialty Diagnoses / Procedures Referred By Contac t Referred To Contact Diagnoses Lung infiltrate Procedures CT Chest WO IV Cont Shara Mitchell MD [address] [address] Referral ID Status Reason Start Date Expiration Date V isits Requested Visits Authorized [id number] Incomplete 12/14/2023 03/14/2025 1 1 Reason for Visit * Reason Comments Follow-up Encounter Details Date Type Department Care Team (Late st Contact Info) Description 12/14/2023 2:00 PM CDT Office Visit [facility] [address] [place] [id number] Shara Mitchell MD [address] [phone] Lung infiltrate (Primary Dx); Bronchiectasis, uncomplicated (HRC) [...] chest (okay to be done at the [place] location). Will call with results. Use Aerobika [...] 04/23/22. She had been previously followed at [facility]. Please see my original consult note for [...] hypoxic respiratory failure from possible pneumonia at [facility] in September 2023. Her MTX was held. [...] culture (Jul 2022), performed at lab outside [facility]): Positive for Strep (not pneumoniae) and Haemophilus influenza Last CT chest (10/26/23), [facility], images available for review, but official radiology [...] Last pneumonia was September 2023 (hospitalized at [facility]). Feels well currently. PFTs improved. 2) ILD: ? Mild ILD, which could be due to RA vs MTX vs prior pneumonias. 3) Bilateral tree-in-bud infiltrates: Concerning for infection, such as atypical Mycobacterial infection. 4) Chronic cough: Improved. Due to bronchiectasis and recurrent infections. 5) Fractionization of care 6) History of PE: On anticoagulation. Hospitalized at [facility] March 2021 7) History bilateral hemothoraces: Hospitalized at [place] December 2021. Chest tube on right. Improved [...] indication for antibiotics Return to pulmonary clinic ([facility]) in 1 year with cherelle/DLCO and CT chest, sooner PRN. Shara Mitchell MD 12/14/2023 Pulmonary Medicine documented in this encounter Plan of Treatment Upcoming Encounters Date Type Department Care Team (Late st Contact Info) Description 04/17/2024 12:00 PM CDT Appointment [facility] [address] [place], [place] [address] Man Sánchez MD [address] [place] [address] Scheduled Orders Name Type Priority Associated [...] (HRC) documented in this encounter Care Teams Enterprise Application Administrator Relationship Specialty Start Date End Date Basilio Healy MD [facility] [address] [place] [address] PCP - General Family Practice 10/28/22 documented as of this encounter
--- OUTSIDE RECORDS SUMMARY | 2024-01-24 15:17 | XMS_ITS | Encounter Summary ---
Author Organization [facility] Address [address], [place] [address] Care Team Providers Care Flue Lining Dipper Name Role Phone Basilio Healy MD Primary Care Provider [phone] Reason for Visit * Reason Comments IV,THERAPY Encounter Details Date Type Department Care Team ([facility] st Contact Info) Description 12/14/2023 Telephone [facility] [address] [place] [address] Man Sánchez MD [address] [place] [address] IV,THERAPY Social History Tobacco Use Types [...] charting. Man Ramírez MD * Larissa Mckeon [facility] - 12/14/2023 10:31 AM CDT Tanner James???s [...] Info) Description 04/17/2024 12:00 PM CDT Appointment [facility] [address] [place] [address] Man Sánchez MD [facility] [place] [address] documented as of this encounter Visit Diagnoses Not on filedocumented in this encounter Care Teams Flue Lining Dipper Relationship Specialty Start Date End Date Basilio Healy MD [facility] [address] [place] [address] PCP - General Family Practice 10/28/22 documented as of this encounter
--- OUTSIDE RECORDS SUMMARY | 2024-01-24 15:17 | XMS_ITS | Encounter Summary ---
Author Organization [facility] Address [address] [place] [address] Care Team Providers Care Type Copyist Name Role Phone Basilio Healy MD Primary Care Provider Reason for Referral * (Routine) - New Request Specialty Diagnoses / Procedures Referred By Contac t Referred To Contact Procedures Pulmonary Function Test - Complete Shara Mitchell MD [address] [facility] [address] [place] [address] Referral ID Status Reason Start Date Expiration Date V isits Requested Visits Authorized [id number] New Request 12/13/2023 03/13/2025 1 1 Encounter Details Date Type Department Care Team (Latest Contact Info) Description 12/14/2023 12:47 PM CDT - 12/14/2023 11:59 PM CDT Hospital Encounter [facility] 3931 [facility] [place] [address] Bronchiectasis, uncomplicated (HRC) (Primary Dx) [...] MG tabletIndications:Rheum atoid arthritis involving multiple joints ([facility]),High risk medication use Take 3 Tablets (3 mg) by mouth daily. 270 Tablet 3 08/09/2023 furosemide (LASIX) 40 MG tablet Take 1 Tablet (40 mg) by mouth daily. 05/02/2023 guaiFENesin (MUCINEX) 600 MG 12 hour release tablet Take 2 Tablets (1,200 mg) by mouth two times a day. 120 Tablet 11 12/17/2022 HYDROcodone-acetaminoph en (NORCO) 5-325 MG tabletIndications:Psori atic arthropathy ([facility]) TAKE 1 TABLET BY MOUTH EVERY [...] Info) Description 04/17/2024 12:00 PM CDT Appointment [facility] [address] [place], [place] [address] Man Sánchez MD [address] [place] [address] documented as of this encounter Procedures [...] Primary documented in this encounter Care Teams Type Copyist Relationship Specialty Start Date End Date Basilio Healy MD [facility] [address] [place] [address] PCP - General Family Practice 10/28/22 documented as of this encounter
--- OUTSIDE RECORDS SUMMARY | 2024-01-24 15:17 | XMS_ITS | Encounter Summary ---
Author Organization [facility] Address [address] [address] Care Team Providers Care Wire Temperer Name Role Phone Basilio Healy MD Primary Care Provider [phone] Encounter Details Date Type Department Care Team (Late st Contact Info) Description 12/13/2023 3:10 PM CDT Lab Visit [facility] [address] [place], [place] [address] Rheumatoid arthritis involving multiple joints (HRC); High [...] Info) Description 04/17/2024 12:00 PM CDT Appointment [facility] [address] [place], [place] [address] Man Sánchez MD [facility] [place], [place] [address] documented as of this encounter Procedures Procedure [...] - 20 mm/hr 12/13/2023 2:32 PM CDT [facility] Blood Venipuncture / Unknown 12/13/2023 1:56 PM CDT 12/13/2023 1:56 PM CDT Man Sánchez MD LAB_1 Performing Organization Address [facility] Co de Phone Number [address] [address] * C-Reactive Protein (12/13/2023 1:56 PM CDT) Pathologist [facility] C-Reactive Protein <0.5 0.0 - 0.5 mg/dL 12/13/2023 5:21 PM CDT [facility] Blood Venipuncture / Unknown 12/13/2023 1:56 PM CDT 12/13/2023 1:56 PM CDT Man Sánchez MD LAB_1 Performing Organization Address [facility]/ZIP Co de Phone Number [facility] [address] [place] [address] documented in this encounter Visit Diagnoses Diagnosis Rheumatoid arthritis involving multiple joints (HRC) High risk medication use Encounter for long-term (current) use of other medications documented in this encounter Care Teams Wire Temperer Relationship Specialty Start Date End Date Basilio Healy MD [facility] [address] [place] [address] PCP - General Family Practice 10/28/22 documented as of this encounter
--- OUTSIDE RECORDS SUMMARY | 2024-01-24 15:17 | XMS_ITS | Encounter Summary ---
Author Organization [facility] Address [address] [address] Care Team Providers Care Plumbing Drafter Name Role Phone Basilio Healy MD Primary Care Provider [phone] Reason for Visit * Reason Comments Follow-up Encounter Details Date Type Department Care Team (Late st Contact Info) Description 12/13/2023 1:00 PM CDT Office Visit [facility] [address] [place], [place] [phone] Man Sánchez MD [address] [place] [id number] Rheumatoid arthritis involving multiple joints (HRC) (Primary [...] recent hospitalization. Patient currently isresiding in a fpc facility. Patient has tried multiple immunosuppressive drugs [...] of 2021 when patient was admitted at [facility] with a clinical presentation of shortness of breath and upper respiratory tract infection. [facility]. Presence of pleural effusion [...] PE Pulmonary embolism (HRC) 12/14/2016 Rheumatoid arthritis(714.0) ([facility]) 12/25/2008 Shoulder impingement 04/03/2013 Past Surgical History: Procedure Laterality Date COLONOSCOPY W/ POLYPECTOMY ([facility]) 10/26/2018 2 specimens (5 polyp). 3 year follow up ESOPHAGOGASTRODUODENOSCOPY ([facility]) 04/14/09 eswl LUMBAR FUSION ([facility]) 04/2010 lami and fusion; Dr oCrea Outpatient Encounter Medications as of 12/13/2023 Medication [...] HUT Reaction: GI Bleeding; HUT Severity: High; [facility] Noted: [id number] Levaquin [Levofloxacin] Other, see comments Muscles snapped [...] software. As a result, wrong word or 'rrdri-o-oywc' substitutions may have occurred due to the inherent limitations of voice recognition software. There may be errors in the script that have gone undetected. Please consider this when interpreting information found in this chart. documented in this encounter Plan of Treatment Upcoming Encounters Date Type Department Care Team (Late st Contact Info) Description 04/17/2024 12:00 PM CDT Appointment [facility] [address] [place], [place] [phone] Man Sánchez MD [facility] [place] [place], [place] [phone] Scheduled Orders Name Type Priority Associated Diagnoses [...] - 20 mm/hr 12/13/2023 2:32 PM CDT [facility] Blood Venipuncture / Unknown 12/13/2023 1:56 PM CDT 12/13/2023 1:56 PM CDT Man Sánchez MD LAB_1 Performing Organization Address [facility] de Phone Number [facility] [phone] [place], [place] [address] * C-Reactive Protein (12/13/2023 1:56 PM CDT) Pathologist [facility] C-Reactive Protein <0.5 0.0 - 0.5 mg/dL 12/13/2023 5:21 PM CDT [facility] Blood Venipuncture / Unknown 12/13/2023 1:56 PM CDT 12/13/2023 1:56 PM CDT Man Sánchez MD LAB_1 Performing Organization Address [facility] de Phone Number [place] [id number] documented in this encounter Visit Diagnoses Diagnosis Rheumatoid arthritis involving multiple joints (HRC)- Primary High risk medication use Encounter for long-term (current) use of other medications Primary osteoarthritis of both knees Primary localized osteoarthrosis, lower leg Current chronic use of systemic steroids Age related osteoporosis, unspecified pathological fracture presence (HRC) documented in this encounter Care Teams Plumbing Drafter Relationship Specialty Start Date End Date Basilio Healy MD [facility] [address] [place] [address] PCP - General Family Practice 10/28/22 documented as of this encounter
--- OUTSIDE RECORDS SUMMARY | 2024-01-24 15:17 | XMS_ITS | Continuity of Care Document ---
Author Organization [facility] Address [address] [facility] [address] [place] [address] Phone Care Team Providers Care Heel Room Supervisor Name Role Phone Corona EASTMAN MD, Bailee [...] mL (20 mg/mL) intravenous solution as per letter stamping machine operator - No Longer Active Rasuvo (PF) 12.5 mg/0.25 mL subcutaneous auto-injector per rheumatology - No Longer Active prednisone 5 mg tablet take 1 tablet by oral route every day 5 MG - No Longer Active Procedures Procedure Date Unlisted Eval & Mgmt Serv Offic outpt EM [facility] Advance Directives Directive Yes / No Effective Date File Name No Information Encounters Encounter Description Practice Location Reason(s) For Visit Diagnoses Date Provider Providers Copied on Encounter Unlisted Eval & Mgmt Serv [facility], [address], [place], [place], [id number], tel:[phone] [facility] Infusion. (chief complaint) Rheumatoid arthritis, unspecified Corona Morocho. [address] [place] [address].,, [address], [place], [place], [id number], . tel:[phone] Referring Provider: Bailee Jeter MD, [address] [place] [address], [address], [place], [address]. tel:[phone] Offic outpt EM [facility], [address], [place], [place], [id number], tel:[phone] [facility] HTN. (chief complaint)e st care (chief complaint) Elevated blood pressure readingEdema Corona Morocho. [address] [place] [address].,, [address], [place], [place], [id number], [place]. tel:[phone] Referring Provider: Bailee Jeter MD, [address] [place] [address]., [address], [place], [address]. tel:[phone] Family History Family Member Type Diagnosis Age At Onset Mother Problem (finding) malignant neop lasm of breast in first degree relative Mother Problem (finding) stroke Father Problem (finding) prostate cancer Mother Problem (finding) hypertension Payers Payer name Insurance type Covered democrat ID Authoriza tion(s) Medicare MB [id number] Nelson [id number] Social History Type Description Quantity Date Captured [...] retired. 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 Reports was seen in ER a few [...]
--- OUTSIDE RECORDS SUMMARY | 2024-01-24 15:18 | XMS_ITS | Encounter Summary ---
Author Organization [facility] Address [address] [place] [address] Care Team Providers Care Superintendent Electric Power Name Role Phone Basilio Healy MD Primary Care Provider [phone] Reason for Visit * (Routine) - Incomplete Specialty Diagnoses / Procedures Referred By Contac t Referred To Contact Procedures Foreign Image(s) CT Angio Chest Provider, Foreign Images [address] [place] [address] Referral ID Status Reason Start Date Expiration Date V isits Requested Visits Authorized [id number] Incomplete 11/02/2023 01/31/2025 1 1 Encounter Details Date Type Department Care Team (Late st Contact Info) Description 10/26/2023 10:40 AM CDT Ancillary Procedure Radiology PACS [address] [place] [address] Provider, Foreign Images [address] [place] [address] Social History Tobacco Use Types Packs/Day Years [...] Info) Description 04/17/2024 12:00 PM CDT Appointment [facility] [address] [place], [place] [address] Man Sánchez MD [address] [place], [place] [address] documented as of this encounter Procedures Procedure [...] on filedocumented in this encounter Care Teams Superintendent Electric Power Relationship Specialty Start Date End Date Basilio Healy MD [facility] [address] [place] [address] PCP - General Family Practice 10/28/22 documented as of this encounter
--- OUTSIDE RECORDS SUMMARY | 2024-01-24 15:18 | XMS_ITS | Encounter Summary ---
Author Organization [facility] Address [address] [place] [address] Care Team Providers Care Flat Drier Name Role Phone Basilio Healy MD Primary Care Provider [phone] Encounter Details Date Type Department Care Team (Late st Contact Info) Description 10/27/2023 Notes/Orders [place] [address] [place] [address]. [place], [place] [phone] Man Sánchez MD [address] [place] [address] [phone] Social History Tobacco Use Types Packs/Day Years [...] Info) Description 04/17/2024 12:00 PM CDT Appointment [facility] [address] [place] [address] Man Sánchez MD [address] [place], [place] [phone] documented as of this encounter Visit Diagnoses Not on filedocumented in this encounter Care Teams Flat Drier Relationship Specialty Start Date End Date Basilio Healy MD [facility] [address] [place] [address] PCP - General Family Practice 10/28/22 documented as of this encounter
--- OUTSIDE RECORDS SUMMARY | 2024-01-24 15:18 | XMS_ITS | Encounter Summary ---
Author Organization [facility] Address [address] [place] [address] Care Team Providers Care Revenue Director Name Role Phone Basilio Healy MD Primary Care Provider [phone] Reason for Visit * Reason Comments Refill Encounter Details Date Type Department Care Team (Late st Contact Info) Description 02/06/2016 Refill [place] [address] [place] [address]. [place], [place] [phone] Swapnil Henley MD [address] [place] [address] Refill Social History Tobacco Use Types Packs/Day Years Used Date Smoking Tobacco: Never Assessed Sex and Gender Information Value Date Recorded Sex Assigned at Not on file Gender Identity Not on file Sexual Orientation Not on file documented as of this encounter Plan of Treatment Upcoming Encounters Date Type Department Care Team (Late Contact Info) Description 04/17/2024 12:00 PM CDT Appointment [facility] [address] [place] [address] Man Sán[place] [address] [place] [address] [phone] documented as of this encounter Visit Diagnoses Not on filedocumented in this encounter Care Teams Revenue Director Relationship Specialty Start Date End Date Basilio Healy MD [facility] [address] [place] [address] PCP - General Family Practice 10/28/22 documented as of this encounter
--- OUTSIDE RECORDS SUMMARY | 2024-01-24 15:18 | XMS_ITS | Encounter Summary ---
Author Organization [facility] Address [address] [place] [address] Care Team Providers Care Staff Electrical Engineer Name Role Phone Basilio Healy MD Primary Care Provider [phone] Reason for Visit * Reason Comments Hospital / Follow Up Encounter Details Date Type Department Care Team (Late st Contact Info) Description 10/27/2023 Telephone [facility] Pulmonary Medicine [address] [place], [place] [phone] Shara Mitchell MD [address] [facility] [address] [place], [place] [phone] Hospital / Follow Up Social History Tobacco [...] email to retrieve all chest films from [facility] in 2023. Frontline, Please contact pt to [...] Info) Description 04/17/2024 12:00 PM CDT Appointment [facility] [address] [place], [place] [phone] Man Sánchez MD [address] [place] [phone] documented as of this encounter Visit Diagnoses Not on filedocumented in this encounter Care Teams Staff Electrical Engineer Relationship Specialty Start Date End Date Basilio Healy MD [facility] [address] [place] [address] PCP - General Family Practice 10/28/22 documented as of this encounter
== END 2024-01-19 10:57 | disposition home or self-care (01) ==
LOC: AMB 01-24 15:13
PROVIDERS: PCP Family Medicine; Visit Provider Emergency Medicine
DX: D50.0 Iron deficiency anemia secondary to blood loss (chronic) (principal)
CPT/HCPCS: A0425; A0428

== ENCOUNTER 2024-10-13 10:15 | Outpatient (RCR) | payer MEDICARE, OTHER, SELFPAY ==
--- NOTE | 2024-07-21 13:58 | OT.OPLE2 ---
OT Outpatient Lymphedema Eval* OT Outpatient Lymphedema Eval* Start: 07/18/24 15:09 Freq: Status: Active Protocol: Document 07/18/24 15:09 SUDARSHANAmadeo (Rec: 07/18/24 17:57 [email or web address] [id number]) E-signed By Genoveva Mishra, OTR/L, CLT OT Outpatient Evaluation Details Type Type Eval Complexity Medium Insurance Information Insurance Information Other Insurance medicare and [facility] Home Program Home Program Home Program Initiated Home Program Specifics LE HEP OT OP Lymphedema Evaluation Current Condition/Medical Diagnosis Referring Provider Niraj Medical Diagnoses I89.0 Lymphedema Treatment Diagnosis R22.43 Localized swelling, mass and lump, lower limb, bilateral Medical History Medical History Comments Left rotator cuff tear arthropathy (Acute) M75.102 - Unspecified rotator cuff tear or rupture of left shoulder, not specified as traumatic (ICD-10) M12.812 - Other specific arthropathies, not elsewhere classified, left shoulder (ICD -10) Osteoarthritis of knees, bilateral (Acute) M17.0 - Bilateral primary osteoarthritis of knee (ICD-10 ) Osteoarthritis of left shoulder (Acute) Severe, [id number] M19.012 - Primary osteoarthritis, left shoulder (ICD-10) Physical deconditioning (Acute ) R53.81 - Other malaise (ICD-10 ) Lymphedema (Acute) I89.0 - Lymphedema, not elsewhere classified (ICD-10) 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 Methotrexate stopped in September. Prednisone increased to 15 mg daily in September and tapered now to 7.5 mg daily. Stress dose steroids M06.9 - Rheumatoid arthritis, unspecified (ICD-10) Fibromyalgia (Acute) On Lyrica and duloxetine M79.7 - Fibromyalgia (ICD-10) Chronic anxiety (Chronic) F41.9 - Anxiety disorder, unspecified (ICD-10) Depression (Acute) Recent change from paroxetine to duloxetine F32.A - Depression, unspecified (ICD-10) Paroxysmal atrial fibrillation (Acute) I48.0 - Paroxysmal atrial fibrillation (ICD-10) Chronic kidney disease, stage 3a (Chronic) History of left nephrectomy. Avoid renal toxic drugs such as NSAIDs N18.31 - Chronic kidney disease, stage 3a (ICD-10) Anemia (Chronic) Likely due to blood loss with large bruising on left hip from fall. Monitor and transfuse as needed. Hold apixaban. 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 Has lost most vision in left eye H30.92 - Unspecified chorioretinal inflammation, left eye (ICD-10) B25.9 - Cytomegaloviral disease, unspecified (ICD-10) Cognitive impairment (Acute) [place] on 10/22/2023 is 23/30. R41.89 - Other symptoms and signs involving cognitive functions and awareness (ICD- 10) Bronchiectasis (Acute) Patient's warehouse operations associate indicates a diagnosis of bronchiectasis. She probably does not have COPD but may have some obstruction on PFTs due to bronchiectasis. Prior to TAVR had wheezing treated with inhalers. Since TAVR has been off inhalers and asymptomatic J47.9 - Bronchiectasis, uncomplicated (ICD-10) Blood loss anemia (Acute) D50.0 - Iron deficiency anemia secondary to blood loss ( chronic) (ICD-10) Edema (Acute) R60.9 - Edema, unspecified ( ICD-10) Degenerative joint disease ( Acute) M19.90 - Unspecified osteoarthritis, unspecified site (ICD-10) Chronic pain (Acute) G89.29 - Other chronic pain ( ICD-10) Degenerative joint disease of right hip (Acute) M16.11 - Unilateral primary osteoarthritis, right hip (ICD -10) Chronic pain (Acute) It appears fibromyalgia and rheumatoid arthritis pain are significant cause of pain as well. Started on Lyrica and changed to duloxetine. Has chronically use some hydrocodone. Low back pain may represent some sciatica going into her right leg. G89.29 - Other chronic pain ( ICD-10) Immunocompromised state due to drug therapy (Acute) On chronic methotrexate 17.5 mg weekly and prednisone 7.5 mg daily. Infectious disease sap business objects consultant recommended treatment for hospital- acquired pneumonia due to recent hospital stay. D84.821 - Immunodeficiency due to drugs (ICD-10) Z79.899 - Other mcc ( current) drug therapy (ICD-10) Sciatica of right side (Acute) M54.31 - Sciatica, right side (ICD-10) Pulmonary infiltrates (Acute) Patient has bilateral upper lobe patchy infiltrates in this clinical setting more suggestive of infectious rather than heart failure. Notably in September 2022 she had similar but less prominent infiltrates with a similar ground glass appearance and distribution primarily in the upper lobes. April of 2023 CT scan showed similar abnormal findings only appeared quite a bit worse. At that time she clinically had acute heart failure. She clinically responded to diuresis and then TAVR in May. Chronic dyspnea resolved with TAVR. Unclear if methotrexate is playing a role in pulmonary infiltrates. Other consideration is that infiltrates are related to rheumatoid arthritis and rheumatoid interstitial lung disease. I spoke with Infectious Disease sap business objects consultant , Dr. Osei, who recommended treatment for hospital- acquired pneumonia. He thinks it is premature to do an evaluation for opportunistic infections such as PJP, Nocardia, other fungal infections. She has received a 3 day course of a Zithromax sin and Zosyn and has not shown evidence of pneumonia, fever, hypoxia, elevated white count during her hospital stay. Her metal stud framer recommended holding her methotrexate for now and he would evaluate her on their next appointment on December 12. He recommended a higher dose of prednisone, 15 mg daily, pending that appointment Her warehouse operations associate noted that and a a CT scan done at their clinic she had some infiltrates a year ago. Covering And Lining Supervisor indicates that she does have definite bronchiectasis. PFTs have showed some obstruction but she thinks the obstruction is from bronchiectasis rather than COPD. She was supposed to have an appointment with pulmonology today and that is being rescheduled. Pulmonology is considering bronchoscopy. R91.8 - Other nonspecific abnormal finding of lung field (ICD-10) Sciatica (Acute) Has been on [place] prior to admission now on low-dose oxycodone. Will need physical therapy and optimally wean off of opioid pain medicines to maximize independent ambulation. Pain significantly improved during last hospital stay despite weaning opioids. Back/hip pain much better on this admission. Study: CT-Spine Lumbar W/IV- 2:34:37 PM Impression: 1. No acute osseous injury within the lumbar spine. 2. Postsurgical change of the anterior and posterior fusion at L4-5. 3. Prior posterior decompression at L2, L3 and L4 . 4. At L1-2, fsxa-nj-aymzjcin spinal canal and left neural foraminal narrowing. 5. At L5-S1, moderate to severe right and mild left neural foraminal stenosis. M54.30 - Sciatica, unspecified side (ICD-10) Enrolled in chronic care management (Chronic) Z78.9 - Other specified health status (ICD-10) Low back pain (Acute) M54.50 - Low back pain, unspecified (ICD-10) Fatty liver (Acute) K76.0 - Fatty (change of) liver, not elsewhere classified (ICD-10) History of adenomatous polyp of colon (Acute) x4 on 10/26/18, 1 advanced. 3Y repeat colonoscopy. Z86.010 - Personal history of colonic polyps (ICD-10) Left ventricular diastolic dysfunction (Chronic) I51.9 - Heart disease, unspecified (ICD-10) Mitral stenosis (Chronic) I05.0 - Rheumatic mitral stenosis (ICD-10) History of vitamin D deficiency (Acute) Z86.39 - Personal history of other endocrine, nutritional and metabolic disease (ICD-10) Pedal edema (Chronic) R60.0 - Localized edema (ICD- 10) Tinnitus of left ear (Chronic) H93.12 - Tinnitus, left ear ( ICD-10) Scalp psoriasis (Chronic) L40.9 - Psoriasis, unspecified (ICD-10) Osteopenia (Chronic) M85.80 - Other specified disorders of bone density and structure, unspecified site ( ICD-10) Chronic anticoagulation ( Chronic) History of unprovoked PEs in the past, and still has paroxysmal atrial fibrillation . Continue apixaban Z79.01 - FDC (current) use of anticoagulants (ICD-10) Gastroesophageal reflux disease (Chronic) K21.9 - Gastro-esophageal reflux disease without esophagitis (ICD-10) Pancytopenia (Chronic) Family History Family History of Lymphedema No Current Work Status Current Work Status Retired Subjective Subjective Pt seated in WC upon arrival, came by medical cab who wheeled her in. Pt unable to use arms to move her WC. Pt is paying privately for medical cabs and states transportation is an issue because of her mobility. Living Situation Current Living Situation LTC/HALF-WAY/Hospice Current Living Situation Comments Staff available to assist 18/01 , will not don her compression stockings as they state they are not allowed to. Patient Difficulties Difficulties With Any Of The Following Walking,Dressing,Reaching Feet & Toes,Bathing/Showering, Preparing Meals,Sleeping In Bed Impairments Impairments Loss of Mobility,Difficulties With ADLs,Limb Heaviness,Poor Clothing Fit Problem List Problem List Limited Knowledge of Lymphedema Treatment/Condition /Precautions,Limited Knowledge of Skin Care & Infection Precautions,Significant Risk For Infection For Lymphedema Related Complications,Does Not Have a HEP,Does Not Know How To Bandage For Limb Reduction, Does Not Have Appropriate Compression Garments For LT Management,Presents With Increased Fall Risk Secondary To Lymphedema,Presents With Impaired Mobility/ROM,Lack Of Caregiver Support,Financial Insecurity Exercise History Does Patient Exercise Regularly No Pain Pain Yes Pain Comments baseline arthritis and fibromyalgia ROM/Strength ROM/Strength Comments L arm recently injured, shoulder flexs only to 70 degs and is weak and shaky. Pt's R arm similar, shoulder can flex to 80 degs, more steady. Pt can't maneuver WC with hands. Previous Treatment Previous Treatment For Swelling/ MLD,Compression Garment,Multi- Lymphedema Layer Compression Bandages, Exercise,Elevation Previous Treatment/Current Home Program at [facility] in summer 2023 Compression History Does Patient Currently Wear Compression No During Daytime Does Patient Currently Wear Compression No At Night Current Swelling (Location/Pitting/Texture) Pitting Scale: 0 = No pitting 1+ Tissue returns to normal almost immediately 2+ Tissue returns after 15-30 seconds 3+ Tissue returns after 1-1/2 minutes 4+ Tissue returns after 2-3 minutes N/A Tissue no longer pits due to induration Tissue texture: Soft or indurated Clinical Presentation Area Pt?s bilateral lower extremities present with significant and chronic lymphedema from distal foot and toes to thighs. Skin intact. No lymphorrhea present; both limbs bilaterally fibrotic. No hair present; toe nails thick, and dorsum of fee displaying hyperkeratosis. 4+ pitting throughout bilateral limbs. Additionally, Pt also has a pannus on her R lateral side which has become fibrotic on the posterior portion. Triggering Event & Start Date of Summer 2023 Swelling/Lymphedema Skin Changes Hemosiderin Staining, Hyperkeratosis,Toe/Foot Deformities,Fibrosis,Limited Skin Mobility Positive Stemmer's Sign Yes Capillary Refill Slow Type of Swelling Secondary Staging Staging Stage 2 Circumferential Measurements Lower Extremity Left Lower Extremity 10 cm above Calcaneus Measurement 29.5 20 cm above Calcaneus Measurement 31 30 cm above Calcaneus Measurement 42 40 cm above Calcaneus Measurement 44 50 cm above Calcaneus Measurement 55 60 cm above Calcaneus Measurement 57 Total Girth in cm 258.5 Right Lower Extremity 10 cm above Calcaneus Measurement 29 20 cm above Calcaneus Measurement 31 30 cm above Calcaneus Measurement 41.5 40 cm above Calcaneus Measurement 48 50 cm above Calcaneus Measurement 56 60 cm above Calcaneus Measurement 61 Total Girth in cm 266.5 Assessment Assessment Pt is a 79yr old female with a recent complicated medical hx . In past 14months has been in and out of the hospital and extended TCU stays, now currently residing in an [facility] with 24/7 assist. Pt has experienced many recent falls and infections and for the past 6-8months has noticed increased swelling in her B LEs and at eval a R lateral fibrotic and fluid filled pannus on her midsection was noted. Pt received lymphedema therapies at the TCU, participate in compression bandaging and manual lymph drainage and was fitted for custom garments. Currently, Pt reports loosing much of the mobility gained at [facility] last summer, now dependent on aids for all dressing, bathing, ADLs, and transfers. Pt reports she sits in her manual WC with her legs in a dependent position most of the day, and is unable to maneuver the WC herself due to her limited arm ROM and strength. Patient referred for lymphedema evaluation and treat as indicated due to painful and swollen BLEs. Pt is limited by pain, and lymphedema in B LE causing a significant hardship. Skilled OT for lymphedema is indicated at this time to decrease edema and pain. Pt will benefit from decongestive therapy, education on skin care and integrity, home program and home exercise; all in order to increase ability to safely participate in functional mobility, ADLs and IADLs. Patient Goals Patient Goals Patient will demo a decrease in BLE edema as evidenced by a 5 cm decrease in overall girth and decreased tightness of skin on BLE in order to improve skin integrity, pain and improve fit of LE garment. Patient will demo a decrease in pannus edema as evidenced by a 5 cm decrease in overall girth and decreased tightness of skin on pannus in order to improve skin integrity, pain and improve fit of LE garment Patient will be able to teach back 100% of education on importance of skin care to prevent infection and maintain integrity of skin. Patient will be able to teach back 100% of education on manual lymphatic drainage HEP of BLEs and pannus to reduce lymphedema. Treatment Plan Treatment Plan Evaluation,Edema Control,Joint Mobilization,Manual Therapy, Ultrasound,Wound Care/Scar Management,Therapeutic Exercise,Therapeutic Activities,Self-Care/Home Management,Caregiver Training, Education,Other Expected Frequency 1-2x Week Expected Duration 4-6 Weeks Certification Certification Statement I Certify That: Therapy Services Provided, Therapy Plan Established, Therapy Plan Reviewed Certification Information Clinic ID # [id number] Initial Certification Date 07/18/24 Recertification Due Date 10/16/24 Provider Signature Required Yes Provider Signature Shows Agreement With POC & Medical Necessity Physician NPI Number Write NPI# Here Physician Comment/Change Comment or Changes Physician Signature & Date Requested Please Sign/Date Here
== END 2024-10-20 08:44 | disposition home or self-care (01) ==
PROVIDERS: PCP Family Medicine; Visit Provider Family Medicine
DX: I89.0 Lymphedema, not elsewhere classified (principal); R22.43 Localized swelling, mass and lump, lower limb, bilateral; Z51.89 Encounter for other specified aftercare
CPT/HCPCS: 97140; 97166; 97530; 97535

== ENCOUNTER 2024-10-18 14:47 | Outpatient (CLI) | payer MEDICARE, OTHER, SELFPAY | END 2024-10-18 14:48 | disposition home or self-care (01) | PROVIDERS: PCP Family Medicine; Visit Provider Family Medicine | DX: R63.5 Abnormal weight gain (principal); E78.2 Mixed hyperlipidemia | CPT/HCPCS: 80061; 84439; 84443 ==

== ENCOUNTER 2024-11-21 09:25 | Outpatient (CLI) | payer MEDICARE, OTHER, SELFPAY | END 2024-11-21 09:26 | disposition home or self-care (01) | LOC: AMB 11-23 09:23 | PROVIDERS: PCP Family Medicine; Visit Provider Family Medicine | DX: R35.0 Frequency of micturition (principal) | CPT/HCPCS: A0425; A0427 ==

== ENCOUNTER 2024-11-21 10:12 | Emergency (ER) | payer MEDICARE, OTHER, SELFPAY ==
--- OUTSIDE RECORDS SUMMARY | 2024-11-21 10:09 | XMS_ITS | Data Portability ---
Author Organization [facility], [facility], INTERNAL MEDICINE Address [address] [place] [address] Assessment No assessment recorded. Plan of Treatment Reminders Order Date Submit Date Provider Last Modified By Organization Details Last Modified Time Details Appointments None recorded. Lab folate, serum 2015 016 DBA_PATCH _[id number] [facility] - [facility], [facility] Noemi Carpio, [address], [place], [address], 6 04:26:18 CBC w/ auto diff 2015 016 DBA_PATCH _[id number] [facility], [facility] [address], [address], [place], [address], 6 04:26:18 CMP, serum or plasma 2015 016 [facility] - [facility], [facility] [address], [address], [place], [address], 6 04:26:19 TSH, serum or plasma 2015 016 [facility] ([facility]) - [facility], [address], [address], [place], [address], 6 04:26:19 vitamin D, 1,25-dihydr oxy, serum 2015 016 [facility] - [facility], [address], [address], [place], [address], 6 04:26:19 lipid panel, serum 2015 016 [facility] - [facility], [address] , [address], [place], [address], 6 04:26:19 Referral None recorded. Procedures None recorded. Surgeries None recorded. Imaging US, echocardiog theo 2015 016 DBA_PATCH _[id number] [facility], [address], [place], [address], 6 04:26:17 Medication Orders Remicade 100 mg intravenous solution 2015 016 [facility], [address], [place], [address], 6 04:26:16 Patient TargetsNo targets recorded. Patient Instructions Encounter Date Encounter Id Patient Instructions Last Modified By Organization Details Last Modified Time 05/14/2016 [id number] substance use disorder: care instructions [email or web address] Not available 05/15/2016 11:19:20 Reason for Referral None Reported. Results Created Date Observation Date Name Description Value Unit Range Abnormal Flag Note LastModifiedBy Organization Detail LastModifiedTime 06/11/20 16 06/12/2016 folat e, serum folic acid >20.0 ug/L see below INTER PRETI VE RANGE S DEFIC IENCY . . . . . . . . . . . . . . . UG/L <4.0 POSSI BLE DEFIC IENCY . . . . . . . . . . . UG/L 4.0-5 .9 SUFFI CIENT . . . . . . . . . . . . . . . UG/L >=6.0 Testi ng Perfo rmed At: [facility] [address] [place] [address] [place] [address] Plays.IO tor: Ron grider M.D. CLIA Numbe r [id number] [place] [id number] Not Available [facility] - Main Lab (Blood Not Drawn At This Location) Visit [facility] [place], [address], 06/12/2016 18:22:56 06/11/20 16 06/12/2016 TSH, serum or plasm a TSH 3.0 uIU/m L 0.5-4. 7 Testi ng Perfo rmed At: [facility] [address] [place] [address] Plays.IO tor: Shelli Mcduffie Numbe r [id number] [place] [id number] Not Available [facility] Main Lab (Blood Not Drawn At This Location) Visit [facility] [place], [address], 06/12/2016 18:22:56 06/11/20 16 06/12/2016 vitam in D, 1,25- dihyd andrew, serum vitamin D,1,25-dihyd andrew 117.0 pg/mL 20.0-8 2.0 high This assay is prima rily indic ated for evalu ation of hyper calce chyna and for asses sing patie nts with renal failu re. A boaz l resul t does not exclu de Vitam in D defic iency . To asses s for Vitam in D defic iency , consi esme 25-Hy droxy Vitam in D assay . Testi ng Perfo rmed At: [facility] [employer] [place] [address] Plays.IO tor: Shelli Mcduffiee r [id number] [place]. [id number] Not Available [facility] Main Lab (Blood Not Drawn At This Location) Visit [facility] [place], [address], 06/12/2016 18:22:57 06/11/20 16 06/12/2016 CBC w/ auto diff WBC 13.0 K/uL 4.0-11 .0 high Not Available [facility] Lab (Blood Not Drawn At This Location) Visit [facility] [place], [address], 06/12/2016 18:22:57 06/11/20 16 06/12/2016 CBC w/ auto diff RBC 5.15 M/uL 3.80-5 .10 high Not Available [facility] Main Lab (Blood Not Drawn At This Location) Visit [facility] [place], [address], 06/12/2016 18:22:57 06/11/20 16 06/12/2016 CBC w/ auto diff hemoglobin 15.5 g/dL 11.5-1 5.5 Not Available [facility] Main Lab (Blood Not Drawn At This Location) Visit [facility] [place], [address], 06/12/2016 18:22:57 06/11/20 16 06/12/2016 CBC w/ auto diff hematocrit 45.5 % 34.0-4 5.0 high Not Available [facility] Main Lab (Blood Not Drawn At This Location) Visit [facility] [place], [address], 06/12/2016 18:22:57 06/11/20 16 06/12/2016 CBC w/ auto diff MCV 88.3 fL 80.0-1 00.0 Not Available [facility] Main Lab (Blood Not Drawn At This Location) Visit [facility] [place], [address], 06/12/2016 18:22:57 06/11/20 16 06/12/2016 CBC w/ auto diff MCH 30.1 pg 27.0-3 4.0 Not Available [facility] Main Lab (Blood Not Drawn At This Location) Visit [facility] [place], [address], 06/12/2016 18:22:57 06/11/20 16 06/12/2016 CBC w/ auto diff MCHC 34.1 g/dL 32.0-3 5.5 Not Available [facility] Main Lab (Blood Not Drawn At This Location) Visit [facility] [place], [address], 06/12/2016 18:22:57 06/11/20 16 06/12/2016 CBC w/ auto diff RDW 14.0 % 11.0-1 5.0 Not Available [facility] Lab (Blood Not Drawn At This Location) Visit [facility] [place], [address], 06/12/2016 18:22:57 06/11/20 16 06/12/2016 CBC w/ auto diff neutrophils 79.3 % 40.0-7 4.0 high Not Available [facility] Main Lab (Blood Not Drawn At This Location) Visit [facility] [place], [address], 06/12/2016 18:22:57 06/11/20 16 06/12/2016 CBC w/ auto diff lymphocytes 8.9 % 19.0-4 8.0 low Not Available [facility] Main Lab (Blood Not Drawn At This Location) Visit [facility] [place], [address], 06/12/2016 18:22:57 06/11/20 16 06/12/2016 CBC w/ auto diff monocytes 9.9 % 4.0-13 .0 Not Available [facility] Main Lab (Blood Not Drawn At This Location) Visit [facility] [place], [address], 06/12/2016 18:22:57 06/11/20 16 06/12/2016 CBC w/ auto diff eosinophils 1.4 % 0.0-7. 0 Not Available [facility] Main Lab (Blood Not Drawn At This Location) Visit [facility] [place], [address], 06/12/2016 18:22:57 06/11/20 16 06/12/2016 CBC w/ auto diff basophils 0.5 % 0.0-2. 0 Not Available [facility] Main Lab (Blood Not Drawn At This Location) Visit [facility] [place], [address], 06/12/2016 18:22:57 06/11/20 16 06/12/2016 CBC w/ auto diff platelet count 168 K/uL 130-40 0 Testi ng Perfo rmed At: [facility] [address] [place] [address] Labor atory Dire tor: Shelli McduffieIA Numbe r [id number] [place] [id number] Not Available [facility] Main Lab (Blood Not Drawn At This Location) Visit [facility] [place], [address], 06/12/2016 18:22:57 06/11/20 16 06/12/2016 lipid panel , serum cholesterol 243 mg/dL <200 high Not Available [facility] - Main Lab (Blood Not Drawn At This Location) Visit [facility] [place], [address], 06/12/2016 18:22:57 06/11/20 16 06/12/2016 lipid panel , serum triglyceride s 193 mg/dL <150 high Not Available [facility] - Main Lab (Blood Not Drawn At This Location) Visit [facility] [place], [address], 06/12/2016 18:22:57 06/11/20 16 06/12/2016 lipid panel , serum HDL cholesterol 60 mg/dL >39 Not Available [facility] - Main Lab (Blood Not Drawn At This Location) Visit [facility] [place], [address], 06/12/2016 18:22:57 06/11/20 16 06/12/2016 lipid panel , serum calc LDL chol 144 mg/dL <100 high Not Available [facility] Main Lab (Blood Not Drawn At This Location) Visit [facility] [place], [address], 06/12/2016 18:22:57 06/11/20 16 06/12/2016 lipid panel , serum risk ratio LDL/HDL 2.41 ratio <3.22 Testi ng Perfo rmed At: [facility] [address] [place] [address] Labor atory Dire tor: Shelli Mcduffie [id number] [place] [id number] Not Available [facility] Main Lab (Blood Not Drawn At This Location) Visit [facility] [place], [address], 06/12/2016 18:22:57 06/11/20 16 06/12/2016 CMP, serum or plasm a glucose 109 mg/dL 70-99 high Not Available [facility] Main Lab (Blood Not Drawn At This Location) Visit [facility] [place], [address], 06/12/2016 18:22:58 06/11/20 16 06/12/2016 CMP, serum or plasm a BUN 20 mg/dL 8-23 Not Available [facility] Lab (Blood Not Drawn At This Location) Visit [facility] [place], [address], 06/12/2016 18:22:58 06/11/20 16 06/12/2016 CMP, serum or plasm a creatinine 1.17 mg/dL 0.60-1 .30 Not Available [facility] Lab (Blood Not Drawn At This Location) Visit [facility] [place], [address], 06/12/2016 18:22:58 06/11/20 16 06/12/2016 CMP, serum or plasm a eGFR amer. 55 mL/mi n/1.7 3 >60 low Not Available [facility] Lab (Blood Not Drawn At This Location) Visit [facility] [place], [address], 06/12/2016 18:22:58 06/11/20 16 06/12/2016 CMP, serum or plasm a eGFR non- amer. 48 mL/mi n/1.7 3 >60 low Not Available [facility] (Blood Not Drawn At This Location) Visit [facility] [place], [address], 06/12/2016 18:22:58 06/11/20 16 06/12/2016 CMP, serum or plasm a calc BUN/creat 17 ratio 6-28 Not Available [facility] Main Lab (Blood Not Drawn At This Location) Visit [facility] [place], [address], 06/12/2016 18:22:58 06/11/20 16 06/12/2016 CMP, serum or plasm a sodium 143 mEq/L 133-14 6 Not Available [facility] Lab (Blood Not Drawn At This Location) Visit [facility] [place], [address], 06/12/2016 18:22:58 06/11/20 16 06/12/2016 CMP, serum or plasm a potassium 4.3 mEq/L 3.5-5. 4 Not Available [facility] (Blood Not Drawn At This Location) Visit [facility] [place], [address], 06/12/2016 18:22:58 06/11/20 16 06/12/2016 CMP, serum or plasm a chloride 99 mEq/L 95-107 Not Available [facility] Lab (Blood Not Drawn At This Location) Visit [facility] [place], [address], 06/12/2016 18:22:58 06/11/20 16 06/12/2016 CMP, serum or plasm a carbon dioxide 25 mEq/L 18-29 Not Available [facility] Lab (Blood Not Drawn At This Location) Visit [facility] [place], [address], 06/12/2016 18:22:58 06/11/20 16 06/12/2016 CMP, serum or plasm a calcium 9.2 mg/dL 8.5-10 .5 Not Available [facility] Lab (Blood Not Drawn At This Location) Visit [facility] [place], [address], 06/12/2016 18:22:58 06/11/20 16 06/12/2016 CMP, serum or plasm a protein, total 6.3 g/dL 6.1-8. 3 Not Available [facility] Main Lab (Blood Not Drawn At This Location) Visit [facility] [place], [address], 06/12/2016 18:22:58 06/11/20 16 06/12/2016 CMP, serum or plasm a albumin 4.0 g/dL 3.5-5. 2 Not Available [facility] Lab (Blood Not Drawn At This Location) Visit [facility] [place], [address], 06/12/2016 18:22:58 06/11/20 16 06/12/2016 CMP, serum or plasm a calc globulin 2.3 g/dL 1.9-3. 7 Not Available [facility] Main Lab (Blood Not Drawn At This Location) Visit [facility] [place], [address], 06/12/2016 18:22:58 06/11/20 16 06/12/2016 CMP, serum or plasm a calc A/G ratio 1.7 ratio 1.0-2. 6 Not Available [facility] Main Lab (Blood Not Drawn At This Location) Visit [facility] [place], [address], 06/12/2016 18:22:58 06/11/20 16 06/12/2016 CMP, serum or plasm a bilirubin, total 0.7 mg/dL <=1.2 Not Available [facility] Lab (Blood Not Drawn At This Location) Visit [facility] [place], [address], 06/12/2016 18:22:58 06/11/20 16 06/12/2016 CMP, serum or plasm a alkaline phosphatase 81 U/L 38-146 Not Available [facility] - Main Lab (Blood Not Drawn At This Location) Visit [facility] [place], [address], 06/12/2016 18:22:58 06/11/20 16 06/12/2016 CMP, serum or plasm a AST 44 U/L 9-40 high Not Available [facility] Main Lab (Blood Not Drawn At This Location) Visit [facility] [place], [address], 06/12/2016 18:22:58 06/11/20 16 06/12/2016 CMP, serum or plasm a ALT 41 U/L 5-40 high Testi ng Perfo rmed At: [facility] [address] [place] [address] Labor atory Dire tor: Shelli McduffieBLAINE Hilario monica [id number] [place] [id number] Not Available [facility] Main Lab (Blood Not Drawn At This Location) Visit [facility] [place], [address], 06/12/2016 18:22:58 05/25/20 16 05/20/2016 , echo ardio gram No observ ation record ed. [email or web address] [facility] [address], [place], [address], 05/26/2016 17:55:40 06/16/20 16 XR, chest , 2 view No observ ation record ed. [email or web address] [facility] [address], [place], [address], 06/16/2016 15:05:56 08/05/19 17 XR, chest , 2 view No observ ation record ed. [email or web address] [facility] [address], [place], [address], 08/05/2016 14:53:38 Result Notes None recorded. Problems Name Problem SNOMED Code Status Onset Date Resolution Date Notes Provider Name and Address Organization Details Recorded Time Rheumatoid arthritis 94317180 Active Followed by Dr. Henley in [place] Esa Rachel, [address], [address], [facility], [facility]. 6 10:51:23 [facility]397884 [facility] 12:43:10 Alcoholism 3962438 Active 2015 sober since 2007 Esa Rachel, [address], [address], [facility], [facility]. 6 10:51:09 Diastolic heart failure 532836756 Active 2015 EF 70% Esa Rachel, [address], [address], [facility], [facility]. 6 19:25:07 Problem Notes None recorded. Procedures Surgical History Date Name Laterality Status Provider Name and Address Organization Details Recorded Time 01/27/20 16 Mammogram screening completed Luis Manuel [facility]. 05/14/2016 12:47:41 06/28/19 11 Colonoscopy and biopsy completed [facility]. 05/14/2016 12:48:03 Back Surgery, Lumbar completed [facility]. 05/13/2016 19:32:33 Cholecystectomy completed [facility]. 05/13/2016 19:32:38 Cataract Surgery completed [facility]. 05/14/2016 12:47:23 Tonsillectomy completed Luis Manuel [facility]. 05/14/2016 12:47:31 Imaging Results None recorded. Procedure Notes None recorded. Medical Equipment None Reported. Allergies Allergen ID Allergen Name Allergen Category Reaction Reaction Severity Criticality Documentation Date Start Date Code Code System Note Provider Name and Address Organization Details Recorded Time 7963 Non-stero idal anti-infl ammatory agent (product) medicatio n Not available Not available Not available 05/13/2016 49632 005 SNOMED Christina Underwood [facility], [facility]. 6 19:31:42 Medications Name Sig Start Date Stop Date Status Note LastModified by Organization Details LastModified Time furosemide 40 mg tablet Take 1 tablet every day by oral route. active Not Available Not Available No t Available prednisone 10 mg tablet Take 1 tablet every day by oral route. active Not Available Not Available No t Available Klor-Con 20 mEq tablet,extende d release Take 2 tablets every day by oral route. active Not Available Not Available No t Available hydrocodone 5 mg-acetaminoph en 325 mg tablet Take 1 tablet every 8 hours by oral route as needed. active Not Available Not Available No t Available atenolol 25 mg tablet Take 1 tablet every day by oral route. active Not Available Not Available No t Available Remicade 100 mg intravenous solution Infuse 3mg/kg every 8 weeks (120kg) 2015 active Not Available Not Available Not Avai lable folic acid 1 mg tablet Take 1 tablet every day by oral route. active Not Available Not Available No t Available methotrexate take 1 po weekly active Not Available Not Available No t Available Vitals Date Recorded Heart rate Respiratory rate Body weight Body height Body mass index (BMI) Systolic And Diastolic Provider Name and Address Organization Details Last Updated DateTime 6 74 /min 18 /min 903551. 25 g 162.56 cm 39.5 kg/m2 128/90 mm[Hg] Marcia [facility]. 6 12:41:18 Date Recorded Body height Heart rate Respiratory rate Body weight Body mass index (BMI) Systolic And Diastolic Provider Name and Address Organization Details Last Updated DateTime 6 162.56 cm 78 /min 18 /min 354375. 61 g 40.2 kg/m2 130/84 mm[Hg] Viviane [facility]. 6 10:47:34 Date Recorded Body height Heart rate Respiratory rate Body weight Body mass index (BMI) Systolic And Diastolic Provider Name and Address Organization Details Last Updated DateTime 6 162.56 cm 68 /min 18 /min 306787. 25 g 39.5 kg/m2 128/86 mm[Hg] [facility] 6 15:13:21 Social History Question Answer Notes LastModified by Latimer Education Details LastModified Time Tobacco Smoking Status Never Smoker Christina Kj [facility]. 05/13/2016 19:32:21 Which Illicit Or Recreational Drugs Have You Used? None Information not available 05/13/2016 How Much Tobacco Do You Smoke? No Information not available 05/15/2016 How Many Years Have You Smoked Tobacco? 0 Information not available 05/15/2016 Sex: Unknown Functional Status Question Answer Note LastModified by Lat[employer] Education Details LastModified Time What is your level of alcohol consumption? None Former Alcoholic for 25 years, Quit in 2007 Information not available 05/14/2016 What is your occupation? Retired [employer] [email or web address] Information not available 05/14/2016 Mental Status None recorded. Family History Relationship Description Onset Age of this Age Resolved Age Notes LastModified by Organization Details LastModified Time Mother Heart disease Not available 2015 19:32:15 Mother Malignant tumor of breast [email or web address] Not available 05/14 12:49:17 Father Malignant neoplasm of prostate Not available 05/14 12:49:30 Medical History No medical history recorded. Gynecological HistoryNo gynecological history recorded. Obstetrics History GPAL:G 0 P 0 0 0 0 Immunizations Vaccine Type Date Status Note Provider Nam e and Address Organization Details Recorded Time Influenza, split virus, quadrivalent, preservative 6 completed Luis Manuel moss, [facility]. 05/14/2016 12:49:44 Pneumococcal conjugate PCV 13 6 completed Luis Manuel moss, [facility]. 05/14/2016 12:49:57 pneumococcal polysaccharide PPV23 5 completed Luis Manuel moss, [facility]. 05/14/2016 12:50:21 Tdap 2 completed Luis Manuel moss, [facility], [facility]. 05/14/2016 12:51:27 Past Encounters Encounter ID Performer Location Encounter Start Date Encounter Closed Date Diagnosis/Indication Diagnosis SNOMED-CT Code Diagnosis ICD10 Code Diagnosis Note [id number] Esa Rachel DO [facility] [address] [place] [address] 05/14/2016 12:27:14 05/14/2016 13:08:02 Rheumatoid arthritis 89885323 M06.9 I rewrote the prescripti on with the same directions as Dr. Henley and faxed original and mine to hospital. Essential hypertension 01309651 I10 Echo ordered, I am unclear why she is on lasix. OK to take as needed. Alcoholism 5956722 F10.2 0 In remission. [id number] RADHA Dave [facility] [address] [place] [address] 06/11/2016 10:31:34 06/11/2016 11:25:29 Diastolic heart failure 059772699 I50.30 Recent ECHO--appe ars to be stable with Lasix daily. Rheumatoid arthritis 698 [address]506 M06.9 Followed by Rheumatolo gy Dyspnea on exertion 6084 5006 R06.09 Labs today Could be poss. side effect of Remicade. Alcoholism 8910040 F10.2 0 Sober since 2007 [id number] RADHA Dave [facility] [address] [place] [address] 06/25/2016 14:47:51 06/25/2016 15:57:24 Pneumonia 193314947 J18.9 Improving. Finish out antibiotic s. Going to check CXR in one month.RTC if symptoms return. Health Concerns Section Related Observation LastModified by Organization Vicki montoya LastModified Time None Recorded Concern Status LastModified by Organization Details LastModified Time None Recorded Advance Directives Directive None Recorded Payers Encounter Date Sequence Insurance Name Policy Number Policy Oshea Covered Member ID Oshea Member ID Guarantor Name 05/14/2016 2 [employer] James [id number] Tanner James 05/14/2016 1 [place] Tanner James [id number] Tanner James 06/11/2016 2 [employer] [id number] Tanner James 06/11/2016 1 [place] Tanner James [id number] Tanner James 06/25/2016 2 [employer] James [id number] Tanner James 06/25/2016 1 [place] Tanner James [id number] Tanner James Notes Date Note Type Note Provider Name and Address Organization Details Recorded Time 05/14/2016 text/html Lives in [facility] for 6 months then [place] for 6 months, Primary Doctor in [place] is Dr. Olguin. Her tenant selector has been prescribing her infusions while in [place]. 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 Unfortunately, I was unaware of the recurrent infusion and it was only when they asked for an updated prescription did it come to light. She is here to establish with local physician and have physician with [facility] oversee her infusions. RA- Has been DX for 20 years. Hands, feet and knee are the main source of pain. She failed humira, then arencia, then actemra, then retuxin and now she started Remicade. She underwent the 2 loading doses and then came to [place] and needs the 3rd loading dose and then every [address] Henley reviewed and is in chart. She is on prednisone, methotrexate and remicade now. Is taking lasix daily for edema 2 years ago she had a major attack of edema and has been on medication since. If she is going somewhere, such as taking a friend to the airport etc. If she doesn't taking lasix nothing happens. Esa Rachel, DO [address] [place], [address], [facility], [facility]. 05/15/2016 11:04:00 06/11/2016 text/html Lives in [facility] for 6 months then [place] for 6 months, Primary Doctor in [place] is Dr. Olguin. RA- Has been DX for 20 years. Hands, feet and knee are the main source of pain. She failed humira, then arencia, then actemra, then retuxin and now she started Remicade. She underwent the 2 loading doses and then came to [place] and needs the 3rd loading dose and then every [address] Henley reviewed and is in chart. She is on prednisone, methotrexate and remicade now. She complains of LEPE, fatigue, and slight dizziness x 1 month. Unsure if it is a side effect of Remicade. She had an ECHO last month that indicated EF of 70%. Trace edema with daily Lasix. Julia moss, [facility], [facility]. 06/11/2016 11:22:59 06/25/2016 text/html Er F/U- Had pneumonia, is feeling better. SOB is better but still is getting winded easily. Fatigue persists. She still has 3 days of Doxycycline left. No fever. Julia moss, [facility], [facility]. 06/29/2016 16:44:54 OBGyn Episode No OBEpisode recorded.
--- OUTSIDE RECORDS SUMMARY | 2024-11-21 10:09 | XMS_ITS | Encounter Summary ---
Author Organization [facility] Address [address] [place] [address] Care Team Providers Care Primer Press Operator Name Role Phone Basilio Healy MD Primary Care Provider [phone] Reason for Visit * Reason Comments Refill Encounter Details Date Type Department Care Team (Late Contact Info) Description 02/06/2016 Refill Rheumatology at [address] [place], [place] [id number] Swapnil Henley MD Refill Social History Tobacco Use Types Packs/Day Years Used Date Smoking Tobacco: Never Assessed Comments No Sex and Gender Information Value Date Recorded Sex Assigned at Not on file Legal Sex Female 6:13 AM CDT Gender Identity Not on file Sexual Orientation Not on file documented as of this encounter Plan of Treatment Upcoming Encounters Date Type Department Care Team ([facility] Contact Info) Description 01/15/2025 2:00 PM CDT Appointment Rheumatology at [address] [address] Man Sánchez MD [address] [place] [address] [phone] documented as of this encounter Visit Diagnoses Not on filedocumented in this encounter Care Teams Primer Press Operator Relationship Specialty Start Date End Date Basilio Healy MD [facility] [address] [place] [address] PCP - General Family Practice 10/28/22 documented as of this encounter
--- OUTSIDE RECORDS SUMMARY | 2024-11-21 10:09 | XMS_ITS | Clinical Summary ---
Author Organization formerly [facility] Address [address] [place] [address] Care Team Providers Care Inventory Control Associate Name Role Phone Bsailio Healy MD Primary Care Provider [phone] Source Comments You are receiving this document as you are listed as the primary care provider,follow-up provider, or the patient has been referred to you for consultation.This is in compliance with the Medicare and[facility] Hospital[facility] EHR Incentive Program,which states Providers who transition their patient to another setting of careor provider of care or refers their patient to another provider of care shouldprovide summary care record for each transition of care or referral. [facility] [employer] Allergies Active Allergy Reactions Criticality Noted Date Comments Levofloxacin Other, see comments 02/02/2022 Muscles snapped Nsaids Other, see comments High 03/18/2011 HUT Reaction: GI Bleeding; HUT Severity: High; HUT Noted: [id number] Terbinafine Muscle Aches/Weakness 02/02/2022 Medications Cholecalciferol 2000 UNITS Take 2,000 Int'l Units by mouth daily. 10/30/19 15 Active Multiple Vitamins-Minerals (MULTIVITAMIN ADULT OR) Take 1 tablet by mouth daily (every 24 hours). 11/04/19 16 Active Probiotic Product (SUPER PROBIOTIC OR) daily. Active rosuvastatin (CRESTOR) 5 MG tablet Take 1 Tablet (5 mg) by mouth daily. Active valGANciclovir (VALCYTE) 450 MG tablet Take 1 Tablet (450 mg) by mouth daily. Active Apixaban (ELIQUIS OR) 2.5 mg two times a day. Active albuterol 2.5 mg/3 mL, 0.083%, (PROVENTIL) nebulizer solutionIndicatio ns:Bronchiectasis , uncomplicated (HRC) 1 Vial (2.5 mg) by Nebulization route every 6 hours as needed for Wheezing. 180 mL 11 04/23/20 22 Active ferrous gluconate (FERGON) 324 (38 Fe) MG tablet Take 1 Tablet (324 mg) by mouth daily. Active ascorbic acid (VITAMINC) 250 MG tablet Take 1 Tablet (250 mg) by mouth daily. Active fluticasone-salme terol (ADVAIR HFA) 115-21 mcg/actuation inhaler Inhale 2 Puffs two times a day. With spacer. Rinse mouth/gargle after use. 1 Each 11/05/19 Active Additional Information Patient not taking.Reported on 09/11/2024 furosemide (LASIX) 40 MG tablet Take 1 Tablet (40 mg) by mouth daily. 05/02/20 Active DULoxetine (CYMBALTA) 60 MG capsule Take 1 Capsule (60 mg) by mouth daily. Active DICLOFENAC SODIUM OP Apply 1 % topically every 4 hours. Active predniSONE (DELTASONE) 5 MG tabletIndications :Rheumatoid arthritis involving multiple joints (HRC),High risk medication use 7.5 mg daily. Decrease by 2.5 mg every 2-4 weeks if tolerated. 135 Tablet 1 07/19/19 25 Active sulfaSALAzine (AZULFIDINE) 500 MG tabletIndications :Rheumatoid arthritis involving multiple joints (HRC),High risk medication use Take 2 Tablets (1,000 mg) by mouth two times a day. 360 Tablet 2 08/17/19 25 Active potassium chloride 10 MEQ controlled release capsule Take 1 Capsule (10 mEq) by mouth daily. Active pregabalin (LYRICA) 50 MG capsule Take 1 Capsule (50 mg) by mouth two times a day. Active metoprolol succinate (TOPROL XL) 25 MG 24 hour release tablet Take 1 Tablet (25 mg) by mouth two times a day. 03/23/20 24 Active folic acid 1 MG tabletIndications :Rheumatoid arthritis involving multiple joints (HRC),High risk medication use Take 1 Tablet (1 mg) by mouth daily. 90 Tablet 3 09/12/19 25 026 Active leflunomide (ARAVA) 20 MG tabletIndications :Rheumatoid arthritis involving multiple joints (HRC),High risk medication use Take 1 Tablet (20 mg) by mouth daily. 90 Tablet 2 09/12/19 25 Active Active Problems Patient Care Coordination No te Formatting of this note migh t be different from the original. Rheumatology- Patient receives drug assistance for Enbrel from [employer]. Approved until 06/27/22-jm Problem Noted Date Diagnosed Date History of pulmonary embolism 02/18/2024 Acute respiratory failure with hypoxia 3 Acute on chronic heart failu re with preserved ejection fraction 05/05/2023 Anticoagulated 05/05/2023 COPD (chronic obstructive pulmonary disease) 01/2023 NSTEMI (non-ST elevated myocardial infarction) 1 07/05/2022 DNR (do not resuscitate) 10/28/2022 Overview (10/28/2022): DNR/DNI code status. Confirmed with patient and [...] Closed fracture of second lumbar vertebra 2020 Overview (02/02/2022): L2 TP fracture L2 TP fracture History of fall 12/23/2020 Obesity due to excess calories with serious carlos rbidity 01/17/2019 Gout 10/10/2018 Long-term use of immunosuppressant medication Fibromyalgia 10/04/2018 Primary osteoarthritis of both knees 10/04/2018 Age related osteoporosis 10/04/2018 Essential hypertension 01/21/2018 Screening for colon cancer 01/12/2018 Overview (04/27/2019): Large 1cm tubular adenomatous polyp removed on colonoscopy on 10/26/18. 3 year follow up recommended (October 2021). Rheumatoid arthritis involving multiple sites Hyponatremia 12/10/2016 Ocular migraine 11/15/2015 Current chronic use of systemic steroids 016 Rheumatoid arthritis 04/18/2015 Psoriatic arthritis 01/16/2015 Fatty infiltration of liver 11/21/2013 Overview (04/27/2019): ULTRASOUND 10/2013; Abnormal liver function tests; history of Ethanol abuse; H/O alcohol abuse 11/10/2013 Overview (04/27/2019): Quit alcohol use 2007 Diastolic dysfunction, left ventricle 11/10/2013 Overview (04/27/2019): Echocardiogram 09/2013 [place]; Ejection fraction 65% CKD (chronic kidney disease) stage 3, GFR 30-59 ml/min 11/10/2013 Vitamin D deficiency 08/23/2013 Family history of breast cancer in first degree relative 05/14/2013 Overview (04/28/2019): Mother, daughter: Stress to patient need for annual mammogram; annual physical exam 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 Patient discontinued 05/2012. 12/20/2012 start venlafaxine 37.5mg Osteopenia 12/07/2011 Overview (04/28/2019): Outpatient Physical Therapist Assistant wants patient to be on alendronate indefinitely due to her prednisone use so she restarted it on 10/04/18. DXA 02/12/18 Hip T-score -1.9 FRAX = 10.8% / 2% STOP alendronate and repeat DXA in 1 year (January 2019) DXA 05/2015 Hip T -1.8 FRAX = 19.2% / 3.5% START alendronate DXA 6-12; T hip -1.61 FRAX = 14%/2.2% (Rx was not recommended; repeat DXA 2014) Mild aortic sclerosis 10/26/2011 Overview (04/28/2019): Systolic murmur. ECHO: 03/2009: EF WNL. Aortic stenosis, moderate 10/26/2011 Overview (02/02/2022): Systolic murmur. ECHO: 03/2009: EF WNL. Spinal stenosis, non-cervical 11/27/2010 Overview (02/17/2017): Spinal Stenosis GERD (gastroesophageal reflux disease) 0 Overview (04/28/2019): Atypical chest pain Degenerative spondylolisthesis 04/25/2010 Spinal stenosis, lumbar curtis on, without neurogenic claudication 11/13/2009 Overview (04/28/2019): History lumbar lamiX and Fusion Dr Corea 04/2010 Rheumatoid arthritis involving multiple joints 0 11/13/2009 Overview (04/28/2019): Followed by Dr Swapnil Henley: Sheila Burleson On MTX and prednisone. June 2012 tried plaquinil [no improvement ] Summer 2012 failed arenacea. 2014 Failed Rituxin; Start Remicade fall 2015 Psoriatic arthropathy 06/05/2004 Overview (02/17/2017): LW Onset: ; Arthritis Psoriatic Resolved Problems Problem Noted Date Diagnosed Date Resolved Date Pulmonary embolism 12/14/2016 9 Fever and chills 12/10/2016 10/10/2018 Renal insufficiency 12/10/2016 10/11/19 19 Pneumonia 12/10/2016 10/10/2018 Morbid obesity with BMI of 40.0-44.9, adult 11/15/2015 01/17/2019 Overview (04/27/2019): Morbid obesity with BMI of 40.0-44.9, adult (HC) Shoulder impingement 04/03/2013 017 Surgical wound infection 06/30/2010 Spinal stenosis, lumbar curtis on, without neurogenic claudication 04/25/2010 10/26/2011 Psoriatic arthritis 11/13/2009 11/14/19 10 Hypertension 04/13/2009 01/21/2018 Thrombocytopenia 04/13/2009 11/13/2009 Overview (04/28/2019): Thrombocytopenia UTI (urinary tract infection) 04/13/2009 04/21/2010 Loss of weight 04/13/2009 11/13/2009 Fatigue 04/13/2009 11/13/2009 Acute renal failure 04/13/2009 11/14/19 10 Blood in stool 04/13/2009 11/13/2009 Hypotension 04/13/2009 11/13/2009 Anemia 04/13/2009 04/21/2010 Overview (04/28/2019): HGB 9.6 ON ADMIT TO [facility] 03/2009; ENDOSCOPY REVEALED SHALLOW GASTRIC ULCERATIONS WITH CMV GASTRITIS AND H PYLORI; TREATED WITH CLARITHROMYCIN, AMPICILLIN AND OMEPRAZOLE Health maintenance examination 12/25/2008 11/02/2016 Overview (04/28/2019): Last PE, 11/26/11 Pap, 04/2011 negative Lipids, 11/26/11 total- 225 trig- 139 hdl- 72 ldl- 125 Mammo, 05/2011 normal Dexa, 11/26/11 osteopenia; Hip -1.61 Forearm -1.67 Colonoscopy, 11/12/08; normal; repeat at 5 year due to FH Td, 03/15/03 Rheumatoid arthritis 12/25/2008 010 Overview (04/28/2019): Rheumatoid arthritis(714.0) Encounters Date Type Department Care Team Description 09/20/2024 Orders Only HIM DEPARTMENT ProviderWendy MD 09/19/2024 Orders Only HIM DEPARTMENT ProviderWendy MD 09/11/2024 10:30 AM CDT Office Visit Rheumatology at [facility] [address] [address] Man Sánchez MD Rheumatoid arthritis involving multiple joints (HRC) (Primary Dx); High risk medication use; Primary osteoarthritis of both knees; Current chronic use of systemic steroids; Age related osteoporosis, unspecified pathological fracture presence (HRC) from Last 3 Months Immunizations Immunization Administration Dates Next Due Flu Vac (3+ yrs) 04/03/2013, 2,04/30/2010,2008,04/10/2003 Flu Vac Preserv Free (3+yrs) 04/30/2010,04/15/20 09 HepA Adult (19+ yrs) 10/20/2004,03/07/2004 HepA Ped/Adol (1-18 yrs) 10/20/2004 HepA, Pediatric (DO NOT USE; for MIIC only) 10/20/2004 IPV (Polio) 03/07/2004 Influenza IIV3 (Trivalent) F luzone Highdose, 65+ Yrs (46278) 04/25/2019,03/09/2016,03/30/2014 Influenza IIV4 (Quadrivalent ) 0.5mL (16006) 04/23/2021,04/25/2019,04/19/2018,2015,03/30/2014,04/03/2013,04/15/2012,1 06/30/2009,04/15/2009,04/10/2003 Influenza IIV4 (Quadrivalent ) Fluzone, 65+ Yrs 04/15/2023,05/04/2022 Influenza aIIV3 65+ Years (Fluad) 04/19/2018 OPV, Trivalent (Orimune or tOPV) 03/07/2004 PCV13 [...] - had been a very functional alcoholic Comments No Sex and Gender Information Value Date Recorded Sex Assigned at Not on file Legal Sex Female 6:13 AM CDT Gender Identity Not on file Sexual Orientation Not on file Last Filed Vital Signs Vital Sign Reading Time Taken Comments Blood Pressure 153/68 12/20/2023 9:34 AM CDT Pulse 79 12/20/2023 9:34 AM CDT Temperature 36.4 C (97.6 F) 12/20/2023 9:34 AM CDT Respiratory Rate 18 02/12/2014 11:42 AM CDT Oxygen Saturation 98% 12/14/2023 1:49 PM CDT Inhaled Oxygen Concentration - - Weight 90.7 kg (200 lb) 12/14/2023 1:49 PM CDT Height 160 cm (5' 3) 12/14/2023 1:49 PM CDT Body Mass Index 35.43 12/14/2023 1:49 PM CDT Plan of Treatment Upcoming Encounters Date Type Department Care Team (Late st Contact Info) Description 01/15/2025 2:00 PM CDT Appointment Rheumatology at [facility] [address] [address] [place], [place] [phone] Man Sánchez MD [employer] [place], [place] [phone] Health Maintenance Due Date Last Done Comments Medicare Annual Wellness Visit 1945 Tuberculosis Screening 1945 RSV Vaccine (1 - 1-dose 75+ series) 2022 Colonoscopy 10/27/2023 10/26/2018 (Comp leted), 11/12/2008 (Completed) COVID-19 Vaccine ( season) 2024 03/24/2022, 05/02/2021, 09/10/2020, Additional history exists Dexa 10/07/2024 10/07/2022, 08/0 01/2018, 02/02/2018, Additional history exists Influenza Vaccine (Season Ended) 2025 04/15/2023, 05/04/2022, 04/23/2021, Additional history exists DTaP/Tdap/Td Vaccine (3 - Tdap) 12/23/2030 12/23/2020, 05/28/2012, 03/15/2003 IPV (Polio) Vaccine Aged Out 03/07/2004, 4 No longer eligible based on patient's age to complete this topic HepA Vaccine Completed 10/20/2004, 09/27, 10/20/2004, Additional history exists Hep C Screening (Preventive Services) Completed 12/12/2015 Pneumococcal Vaccine 50+ Yrs Completed 06/2015, 03/09/2016, 03/28/2015, Additional history exists HepB Vaccine Aged Out No longer eligi ble based on patient's age to complete this topic Hib Vaccine Aged Out No longer eligi ble based on patient's age to complete this topic MCV4 Vaccine Aged Out No longer eligi ble based on patient's age to complete this topic Meningococcal B Vaccine Aged Out No l onger eligible based on patient's age to complete this topic Procedures Procedure Name Priority Date/Time Associated Diagnosis Comments LABORATORY REPORT 09/20/2024 LABORATORY REPORT 09/19/2024 EXT RSLT - SCANNED Routine 09/05/2024 EXT RSLT - ALT Routine 09/05/2024 EXT RSLT - WHITE BLOOD CELL COUNT (WBC) Routine 09/05/2024 EXT RSLT - HEMOGLOBIN Routine 09/05/2024 EXT RSLT - PLATELET COUNT Routine 09/05/2024 DXA BONE DENSITY SPINE/HIP INC VERT FX ASSESS Routine 10/07/2022 3:48 PM CDT Rheumatoid arthritis involving multiple joints (HRC) High risk medication use Current chronic use of systemic steroids Screening for osteoporosis HEPATITIS C PCR QUANTITATIVE Routine 12/12/2015 11:44 AM CDT Encounter for long-term (current) use of medications from Last 3 Months or Most Recently Relevant to Health Maintenance Results * LABORATORY REPORT (09/20/2024) Only the most recent of2 resultswithin the time period is included. us Interface Provider MD CLANCY/OTHER/AR Final Resu lt * White Blood Cell Count (WBC) (Ext Rslt) (09/05/2024) EXT RSLT - WBC 7.41 4.50 - 11.00 K/uL PN EXTERNAL LAB-SEE SCANNED DOCUMENT 09/05/2024 us Physician Unknown LAB EXTERNAL RESULT Final Resu lt PN EXTERNAL LAB-SEE SCANNED DOCUMENT Do Not Mail * (ABNORMAL) Hemoglobin (Ext Rslt) (09/05/2024) EXT RSLT - HGB 11.7(L) 12.0 - 16.0 gm/dL PN EXTERNAL LAB-SEE SCANNED DOCUMENT 09/05/2024 us Physician Unknown LAB EXTERNAL RESULT Final Resu lt PN EXTERNAL LAB-SEE SCANNED DOCUMENT Do Not Mail * Scanned result (Ext Rslt) (09/05/2024) Ext Rslt - Scanned EGFR, MCV PN EXTERNAL LAB-SEE SCANNED DOCUMENT 09/05/2024 us Physician Unknown LAB EXTERNAL RESULT Final Resu lt Performing Organization Address [facility] de Phone Number PN EXTERNAL LAB-SEE SCANNED DOCUMENT Do Not Mail * (ABNORMAL) Platelet Count (Ext Rslt) (09/05/2024) Pathologist [facility] EXT RSLT - PLATELET COUNT 90(L) 140 - 440 K/uL PN EXTERNAL LAB-SEE SCANNED DOCUMENT 09/05/2024 Physician Unknown LAB EXTERNAL RESULT Final Resu lt Performing Organization Address [facility] de Phone Number PN EXTERNAL LAB-SEE SCANNED DOCUMENT Do Not Mail * ALT (Ext Rslt) (09/05/2024) Pathologist [facility] EXT RSLT - ALT 18 4 - 35 U/L PN E XTERNAL LAB-SEE SCANNED DOCUMENT 09/05/2024 Physician Unknown LAB EXTERNAL RESULT Final Resu Performing Organization Address [facility] de Phone Number PN EXTERNAL LAB-SEE SCANNED DOCUMENT Do Not Mail * DXA Bone Density Spine/Hip Inc Vert FX Assess (10/07/2022 3:48 PM CDT) [facility] DXA Hip Left Bone Mineral Density 0.825 [...] not included. Patient Name: Tanner James Densitometer: [employer] W Appt Dept/Resource: Granda Bone Density GRANDA BONE Demographics Age: 77 y.o. Gender: Female Height: 5' 3 (1.6 m) Height at age 27: 5.5 Weight: 161 lb (73 kg) Race: Medical/Surgical History Menstrual periods: None Age of menopause: 47 Able to stand from a chair easily without use of the arms?: Yes, with difficulty How many falls indoors/outdoors within the last 12 months?: 0 History of fractures in parents: No History of previous fractures?: Yes Location: Spine Hip replacement?: No Oral cortisone or steroid medication for more than 3 months?: Yes, currently At least 5 mg prednisone or equivalent?: Yes Currently or have taken medications to treat osteoporosis?: No Taking any aromatase inhibitor medication for breast cancer - anti-estrogen excluding tamoxifen?: No Have had the following medical conditions: Rheumatoid [...] (1/3) (Not Scanned) N/A N/A N/A N/A *N/A indicates that measurements were either not needed [...] low bone mass to reduce fracture risk. Clinical correlation needed. Consider repeat bone density in 2 years or [...] trabecular bone, and is derived from the [id number] changes of bone density embedded in the [...] ? 20% based on the FRAX scores. Man Sánchez MD RAD DEXA Final Result * Hepatitis C PCR Quantitative (12/12/2015 11:44 AM CDT) HCV Quant Interp Not Detected Not Detected HP CONVERSION Comment: Test Performed by Real Time PCR CLIA Number [id number] HCV Quant iu/ml <12 IU/ml HP CONVERSION Comment:CLIA Number [id number] HCV Quant Log iu/ml <1.08 Log IU/ml HP CONVERSION Comment: Performed at [facility], [address] [address] [place] Number [id number] 12/12/2015 11:4 4 AM CDT 12/12/2015 3:01 PM CDT Swapnil Henley MD LAB_1 Final Result HP CONVERSION from Last 3 Months or Most Recently Relevant to Health Maintenance Insurance MEDICARE [place] Advance Directives Documents on File Type Date Recorded Patient Head [employer] Expl anation POLST 02/02/2017 01/05/2017 Care Teams Inventory Control Associate Relationship Specialty Start Date End Date Basilio Healy MD [facility] [address] [place] [address] PCP - General Family Practice 10/28/22
--- OUTSIDE RECORDS SUMMARY | 2024-11-21 10:10 | XMS_ITS | Data Portability ---
Author Organization [facility], [facility] Address [address] [place] [address] Assessment No assessment recorded. Plan of Treatment [...] Abnormal Flag Note LastModifiedBy Organization Detail LastModifiedTime Result Notes None recorded. 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 Lamont Bravo MD [address] [place] [address],[facility] [address] [place] [address], [phone], [facility] 2 16:32:18 Recurrent urinary tract infection 536007439 Active 2021 Managed with daily Bactrim Lamont Bravo MD [address] [place] [address],[place] [address] [place] [address], [phone], [facility] 2 16:32:42 Problem Notes None recorded. Procedures Surgical History Date Name Laterality Status Provider Name and Address Organization Details Recorded Time 07/11/19 NEPHRECTOMY, HAND ASSISTED LAPAROSCOPIC (SURG) completed Mary Monte [facility] 07/17/2021 09:46:04 Imaging Results None recorded. Procedure Notes None recorded. Medical Equipment None Reported. Allergies Allergen ID Allergen Name Allergen Category Reaction Reaction Severity Criticality Documentation Date Start Date Code Code System Note Provider Name and Address Organization Details Recorded Time 188954 Non-stero idal anti-infl ammatory agent (product) medicatio n Not available Not available Not available 03/20/2021 71004 005 SNOMED Lamont Bravo MD [address] [place] [address],[address], [place], [address], [facility] 1 16:22:56 301609 Levaquin medicatio n Not available Not available Not available 03/20/2021 66509 2 RxCarroll Bravo MD [address] [place] [address],[address] [address], [facility] 1 16:23:24 050629 levofloxa giorgio medicatio n other Not available Not available 08/11/20212021 88373 Bree Bravo MD [address] [place] [address],[address], [place], [address], [facility] 2 16:06:24 548798 terbinafi ne hydrochlo ride medicatio n fever headache Not available Not available Not available 08/11/20212019 80710 8 Bree Bravo MD [address] [place] [address],[address], [place], [address], [facility] 2 [...] Updated DateTime 08/11/2021 160.02 cm 28.3 kg/m2 94840.78 g Lamont Bravo MD [address] [place] [address],[address] [place] [address] Urolog 08/11/2021 16:06:06 Date Recorded Body height Body mass index (BMI) Body weight Provider Name and Address Organization Details Last Updated DateTime 03/20/2021 160.02 cm 33.7 kg/m2 46810.55 g Lamont Bravo MD [address] [place] [address],[address] [facility] 03/20/2021 16:22:47 Social History Question Answer Notes LastModified by View and [employer] Details LastModified Time Tobacco Smoking Status Never Smoker Lamont Bravo MD [address] [place] [address] Urology 03/20/2021 16:24:21 What Is Your Level Of Caffeine Consumption? Occasional Information not available 03/20/2021 What Was The Date Of Your Most Recent Tobacco Screening? 08/11/2021 Information not available 08/11/2021 Sex: Unknown Functional Status Question Answer Note LastModified by [employer] Details LastModified Time Do you use any illicit or recreational drugs? No Information not available 03/20/2021 Do you or have you ever used any other forms of tobacco or nicotine? No Information not available 03/20/2021 What is your level of alcohol consumption? None Information not available 03/20/2021 Mental Status None recorded. Family History Relationship Description Onset Age of this Age Resolved Age Notes LastModified by Organization Details LastModified Time Father Family history of malignant neoplasm of prostate csovell Not available 2020 16:23:48 Mother Family history of breast cancer csovell Not available 2020 16:23:54 Medical History Condition Response High Blood Pressure Y Kidney Stones Y High Cholesterol Y Heart Disease Y Gynecological HistoryNo gynecological history recorded. Obstetrics History GPAL:G 0 P 0 0 0 0 Immunizations Vaccine Type Date Status Note Provider Nam e and Address Organization Details Recorded Time pneumococcal polysaccharide PPV23 0 completed Lamont Bravo MD [address] [place] [address],[address], [place], [address], [facility] 08/11/2021 16:07:09 Pneumococcal conjugate PCV 13 5 completed Lamont Bravo MD [address] [place] [address],[address] [place] [address], [phone], [facility] 08/11/2021 16:07:09 pneumococcal polysaccharide PPV23 5 completed Lamont Bravo MD [address] [place] [address],[address], [phone], [facility] 08/11/2021 16:07:09 Pneumococcal conjugate PCV 13 6 completed Lamont Bravo MD [address] [place] [address],[address], [phone], [facility] 08/11/2021 16:07:10 pneumococcal polysaccharide PPV23 6 completed Lamont Bravo MD [address] [place] [address],[address], [phone], [facility] 08/11/2021 16:07:10 Past Encounters Encounter ID Performer Location Encounter Start Date Encounter Closed Date Diagnosis/Indication Diagnosis SNOMED-CT Code Diagnosis ICD10 Code Diagnosis Note [id number] MD TAMIKA Hudson_Nara 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 This can be managed with a left nephrectom y. She'll need a pretty thorough preop and the procedure is needed soon and cannot wait a couple of months. [id number] MD Sondra Hudson 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 She can now stop her daily Bactrim and see how she does. If UTIs recur, she could resume it. Health Concerns Section Related Observation LastModified by Organization Detai ls LastModified Time None Recorded Concern Status LastModified by Organization Details LastModified Time None Recorded Advance Directives Directive None Recorded Payers Insurance Date Sequence Insurance Name Policy Number Policy Oshea Covered Member ID Oshea Member ID Guarantor Name 08/08/2021 1 [place] [employer] Tanner James [id number] Tanner Brown Erika 08/08/2021 2 [employer] (MEDICARE SUPPLEMENT) Tanner Serna Erika [id number] Tanner Brown Erika Notes Date Note Type Note Provider Name and Address Organization Details Recorded Time 03/20/2021 text/html New patient here to discuss nephrectomy.She fell when she was at [place] and that led to a CT scan that showed an atrophic kidney and a staghorn stone. She's had recurrent pyelonephritis as well.She had ESWL in 2002. She also has a poor aortic valve. Lamont Bravo MD [address] [place] [address],[address] [place] [address], [phone], [facility] 03/20/2021 17:02:40 08/11/2021 text/html She has recovere d well from surgery. 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 Lamont Bravo MD [address] [place] [address],[address], [place], [address], [facility] 08/11/2021 16:37:50 OBGyn Episode No OBEpisode recorded.
--- OUTSIDE RECORDS SUMMARY | 2024-11-21 10:10 | XMS_ITS | Clinical Summary ---
Author Organization [employer] [facility] Address [address] [place] [id number] Care Team Providers Care End Finder Forming Department Name Role Phone Swapnil Henley MD Unavailable Unavailable Marlys Woodruff William RD Unavailable [phone] Funmi Medina Unavailable [phone] Kyle Healy MD Primary Care Provider [phone] [facility] [place] Unavailable Allergies Active Allergy Reactions Criticality Noted Date Comments Terbinafine Hcl Fever,Headache 04/29/2020 Headaches, fever Levofloxacin Other - Describe In Comment Field 07/09/2021 Severe tendon issues Nsaids (Non-Steroidal Anti-Inflammatory Drug) GI Bleeding 01/22/2017 Medications * This document contains information received from the source organization and may not represent a complete record from that organization. Cholecalciferol, Vitamin D3, (VITAMIN D-3) 2,000 unit tabletIndications: Vitamin D deficiency Take 1 tablet by mouth once daily. 0 02/01/20 15 Active multivit-min/iron/ folic acid/K (ADULTS MULTIVITAMIN ORAL) Take 1 Tab by mouth once daily. 11/04/19 16 Active ferrous sulfate, 65 mg elemental, (Iron) tablet Take 325 mg by mouth once daily with a meal. Active Lactobacillus acidophilus 0.5 mg (100 million cell) tab Take 1 Tablet by mouth once daily in the morning. 01/19/20 24 Active diclofenac topical (VOLTAREN) 1 % gel Apply topically to affected area(s) 4 times daily if needed. Active acetaminophen (TYLENOL EXTRA STRGTH) 500 mg tablet Take 2 Tablets (1,000 mg) by mouth three times daily. Max acetaminophen dose: 4000mg in 24 hrs. 01/21/20 Active sennosides (SENNA) 8.6 mg tablet Take 1 Tablet (8.6 mg) by mouth 2 times daily if needed for Constipation. 01/21/20 Active artificial tears, peg 400 0.4%-propylene glycol 0.3%, (SYSTANE) ophthalmic Place 2 Drops into both eyes two times daily. 01/29/20 24 Active guaiFENesin 100 mg/5 mL liquid Take 10 mL (200 mg) by mouth every 4 hours if needed for Expectoration. 03/15/20 24 Active apixaban (ELIQUIS) 2.5 mg tabletIndications: pulmonary thromboembolism Take 1 Tablet (2.5 mg) by mouth two times daily. 60 Tablet 03/23/20 24 Active DULoxetine (CYMBALTA) 60 mg Delayed-release capsuleIndications :Chronic pain syndrome Take 1 Capsule (60 mg) by mouth once daily. 30 Capsule 03/23/20 24 Active furosemide (LASIX) 40 mg tabletIndications: Heart failure with preserved ejection fraction, unspecified HF chronicity (HC) [The details of the medication are not available because there are pending changes by a home health clinician.] 60 Tablet 03/23/20 24 Active Additional Information Patient taking differently:40 mg OralDAILY, Reported on 10/24/2024 metoprolol succinate (TOPROL XL) 25 mg Sustained-Release tabletIndications: Nonrheumatic aortic (valve) stenosis Take 1 Tablet (25 mg) by mouth two times daily. 60 Tablet 03/23/20 24 Active potassium chloride (MICRO-K) 10 mEq Controlled-release capsuleIndications :Hypokalemia Take 1 Capsule (10 mEq) by mouth once daily. 30 Capsule 03/23/20 24 Active predniSONE (DELTASONE) 5 mg tabletIndications: Rheumatoid arthritis involving multiple sites with positive rheumatoid factor (HC) [The details of the medication are not available because there are pending changes by a home health clinician.] 45 Tablet 03/23/20 24 Active Additional Information Patient taking differently: 5 mgOral Q AM, Reported on 10/24/2024 rosuvastatin (CRESTOR) 5 mg tabletIndications: Dyslipidemia Take 1 Tablet (5 mg) by mouth at bedtime. 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 30 Tablet 03/23/20 24 Active pregabalin (LYRICA) 50 mg capsuleIndications :Chronic pain syndrome Take 1 Capsule (50 mg) by mouth two times daily. 60 Capsule 03/23/20 24 Active pregabalin (LYRICA) 50 mg capsuleIndications :Chronic pain syndrome TAKE 1 CAPSULE BY MOUTH TWICE DAILY 30 Capsule 5 03/30/20 24 Active folic acid 1 mg tablet Take 1 mg by mouth once daily. Take 1 tablet by mouth daily Active leflunomide 20 mg tablet Take 20 mg by mouth once daily. Take 1 tablet by mouth daily Active HYDROcodone-acetam inophen (5-325 mg/tablet) Take 1 Tablet by mouth 2 times daily if needed for Pain. Take 1 tablet by mouth twice daily as needed for pain Active oxyCODONE (ROXICODONE) 5 mg immediate release tabletIndications: Pain [The details of the medication are not available because there are pending changes by a home health clinician.] 25 Tablet 03/04/20 24 025 Disconti nued(*Me d complete /Regimen complete /Level of care change) oxyCODONE (ROXICODONE) 5 mg immediate release tabletIndications: Pain [The details of the medication are not available because there are pending changes by a home health clinician.] 30 Tablet 03/30/20 24 025 Disconti nued(*Me d complete /Regimen complete /Level of care change) oxyCODONE (ROXICODONE) 5 mg immediate release tabletIndications: Pain [The details of the medication are not available because there are pending changes by a home health clinician.] 26 Tablet 03/24/20 24 025 Disconti nued(*Me d complete /Regimen complete /Level of care change) Active Problems Problem Noted Date Diagnosed Date Thrombocytopenia 02/21/2024 Overview (02/21/2024): 02/21/2024 PLT: 79 02/18/2024 PLT: 55 Wounds, multiple 02/20/2024 Gram negative septicemia 02/19/2024 Severe sepsis 02/18/2024 Possible UTI (urinary tract infection) Chronic heart failure with p reserved ejection fraction (HFpEF) 02/18/2024 EMELI (acute kidney injury) 02/18/2024 History of pulmonary embolism 02/18/2024 Pseudoaneurysm of femoral artery following proce dure [...] Open abdominal wall wound 05/05/2023 Anticoagulated 05/05/2023 Paroxysmal atrial fibrillation 02/02/2022 Age related osteoporosis 10/04/2018 Fibromyalgia 10/04/2018 Essential hypertension 01/21/2018 Anxiety 05/14/2016 Current chronic use of systemic steroids 016 CKD (chronic kidney disease) stage 3, GFR 30-59 ml/min 11/10/2013 Rheumatoid arthritis involvi ng multiple sites with positive rheumatoid factor 11/13/2009 Overview (03/09/2016): Followed by Dr Swapnil Henley: Sheila Burleson [...] fracture of second lumbar vertebra 12/24/2020 05/05/2023 Overview (04/12/2021): L2 TP fracture Closed fracture of tibia 12/24/202001/2023 Laceration of forehead 12/24/202005/05 Rupture of ligament of wrist 12/24/2020 05/05/2023 Overview (04/12/2021): Concern for partial thickness scapholunate ligament tear History of falling 12/23/2020 Obesity due to excess calori es with serious comorbidity 01/17/2019 05/05/2023 Gout 10/10/2018 05/05/2023 Long-term use of immunosuppressant medication 10/05/19 19 05/05/2023 Primary osteoarthritis of both knees 10/04/2018 05/05/2023 Screening for colon cancer 01/12/2018 1 07/05/2022 Overview (11/01/2018): Large 1cm tubular adenomatous polyp removed on [...] adult 11/15/2015 01/17/2019 Psoriatic arthritis 01/16/2015 05/05/20 23 Fatty infiltration of liver 11/21/2013 05/05/2023 Overview (11/21/2013): ULTRASOUND 10/2013; Abnormal liver function tests; history of Ethanol abuse; Diastolic dysfunction, left ventricle 11/10/2013 05/05/2023 Overview (11/10/2013): Echocardiogram 09/2013 [place]; Ejection fraction 65% H/O alcohol abuse 11/10/2013 05/05/2023 Overview (12/08/2013): Quit alcohol use 2007 Vitamin D deficiency 08/23/2013 023 Family history of breast can cer in first degree relative 05/14/2013 05/05/2023 Overview (05/14/2013): Mother, daughter: Stress to patient need for annual mammogram; 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 Patient discontinued 05/2012. 12/20/2012 start venlafaxine 37.5mg Osteopenia 12/07/2011 05/05/2023 Overview (10/10/2018): Corn Cooker wants patient to be on alendronate indefinitely [...] repeat DXA 2014) Aortic stenosis, moderate 10/26/2011 Overview (10/26/2011): Systolic murmur. ECHO: 03/2009: EF WNL. Surgical wound infection 06/30/2010 GERD (gastroesophageal reflux disease) 04/29/2010 05/05/2023 Overview (11/15/2015): Atypical chest pain Spinal stenosis, lumbar curtis on, without neurogenic claudication 04/25/2010 10/26/2011 Degenerative spondylolisthesis 04/25/2010 05/05/2023 Psoriatic arthritis 11/13/2009 11/14/19 10 Spinal stenosis, lumbar curtis on, without neurogenic claudication 11/13/2009 05/05/2023 Overview (11/26/2011): History lumbar lamiX and Fusion Dr Corea 04/2010 Acute Anemia 04/13/2009 04/21/2010 Overview (11/13/2009): HGB 9.6 ON ADMIT TO [facility] [...] arthritis(714.0) 12/25/2008 11/13/2009 Health maintenance 12/25/2008 7 Overview (12/16/2012): Last PE, 11/26/11 Pap, 04/2011 negative Lipids, 11/26/11 total- 225 trig- 139 hdl- 72 ldl- 125 Mammo, 05/2011 normal Dexa, 11/26/11 osteopenia; Hip -1.61 Forearm -1.67 Colonoscopy, 11/12/08; normal; repeat at 5 year due to FH Td, 03/15/03 Hematuria 05/05/2023 Encounters Date Type Department Care Team Description 11/17/2024 1:15 PM CDT Home Care Visit [facility] [address] [place] [address] Miguelina Guzman ANGEL OT - HOME VISIT 11/16/2024 3:15 PM CDT Home Care Visit [facility] [address] [place] [address] Latosha Dimas, PT PT - REASSESSMENT 11/14/2024 1:30 PM CDT Home Care Visit [facility] [address] [place] [address] Miguelina Guzman COTA OT - HOME VISIT 11/13/2024 3:15 PM CDT Home Care Visit [facility] [address] [place] [address] Latosha Dimas, PT PT - HOME VISIT 11/13/2024 Home Care Visit [facility] [address] [place] [address] Latosha Dimas, PT CARE COORDINATION 11/09/2024 3:15 PM CDT Home Care Visit [facility] [address] [place] [address] Ltaosha Dimas, PT PT - HOME VISIT 11/09/2024 1:30 PM CDT Home Care Visit [facility] [address] [place] [address] Miguelina Guzman COTA OT - HOME VISIT 11/06/2024 3:15 PM CDT Home Care Visit [facility] [address] [place] [address] Latosha Dimas, PT PT - HOME VISIT 11/06/2024 Home Care Visit [facility] [address] [facility] [address] Latosha Dimas, PT CARE COORDINATION 11/02/2024 3:15 PM CDT Home Care Visit [facility] [address] [place] [address] Latosha Dimas, PT PT - HOME VISIT 10/31/2024 Orders Only [facility] [address] [place] [address] Renae Pruett NP <No scans attached> 10/30/2024 3:15 PM CDT Home Care Visit [facility] [address] [place] [address] Latosha Dimas, PT PT - HOME VISIT 10/30/2024 10:45 AM CDT Home Care Visit [facility] [address] [place] [address] Antelmo Del Castillo, OT OT - INITIAL ASSESSMENT 10/30/2024 Home Care Visit [facility] [address] [place] [address] Latosha Dimas, PT CARE COORDINATION 10/30/2024 Travel 10/26/2024 10:45 AM CDT Home Care Visit [facility] [address] [place] [address] Latosha Dimas, PT PT - HOME VISIT 10/24/2024 9:30 AM CDT Home Care Visit [facility] [address] [place] [phone] Francheska Cooley RN SN - [id number] ASSESSMENT 10/24/2024 Orders Only [facility] [address] [place] [address] Milvia Almeida MD <No scans attached> 10/23/2024 1:00 PM CDT Home Care Visit [facility] [address] [place] [phone] Latosha Dimas, PT PT - HOME VISIT 10/23/2024 Home Care Visit [facility] [address] [place] [address] Latosha Dimas, PT CARE COORDINATION 10/23/2024 Home Care Visit [facility] [address] [facility] [place] [address] Shara Wesley, RN CARE COORDINATION 10/20/2024 Home Care Visit [facility] [address] [facility] [place] [address] José Miguel Bentley, PT CARE COORDINATION 10/20/2024 Home Care Visit [facility] [address] [facility] [place] [address] José Miguel Bentley, PT CARE COORDINATION 10/19/2024 9:30 AM CDT Home Care Visit [facility] [address] [place] [address], [place] [address] José Miguel Bentley, PT PT - OASIS START OF CARE 10/19/2024 Plan of Care Documentation [facility] [address] [place] [address], [place] [address] 10/13/2024 Transcribe Orders [facility] [address] [place] [address], [place] [address] Kyle Healy MD 10/06/2024 Nurse Triage [address] [address] Kyle Healy MD Home Care (See Note. ) from Last 3 Months Immunizations Immunization Administration Dates Next Due AMB INFLUENZA IIV3 [...] 2 01/17/2019 Social Connections Answer Date Recorded Do you often feel lonely or isolated from those around you? 0 02/18/2024 Financial Resource Strain Answer Date R ecorded Difficulty of Paying Living Expenses 3 02/18/2024 Difficulty of Paying Living Expenses Not on file 02/18/2024 Food Insecurity Answer Date Recorded Do you worry your food will run out before you are able to buy more? 1 02/18/2024 Transportation Needs Answer Date Record ed Does lack of transportation keep you from medica l appointments? 2 02/18/2024 Does lack of transportation keep you from work, meetings or getting things that you need? 1 02/18/2024 Housing Stability Answer Date Recorded What is your housing situation today? 1 02/18/2024 Interpersonal Safety Answer Date Record ed Are you being hit, kicked, p ushed or yelled at (see row info)? No 02/18/2024 Interpersonal Safety Abuse 12 - 18 Not on file 02/18/2024 Interpersonal Safety Ambulatory Vulnerability No t on file 02/18/2024 Utilities Answer Date Recorded Do you have trouble paying f or utilities (for example, heat, electricity, water, phone)? 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 Gender Identity Not on file Sexual Orientation Not on file Obstetrics History Last Filed Vital Signs Vital Sign Reading Time Taken Comments Blood Pressure 122/56 11/17/2024 2:21 PM CDT Pulse 84 11/17/2024 2:21 PM CDT Temperature 36.2 C (97.1 F) 11/17/2024 2:21 PM CDT Respiratory Rate 18 11/17/2024 2:21 PM CDT Oxygen Saturation 97% 11/17/2024 2:21 PM CDT Inhaled Oxygen Concentration - - Weight 112.5 kg (248 lb) 10/24/2024 9:52 AM CDT stated Height 160 cm (5' 3) 02/18/2024 7:45 AM CDT Body Mass Index 43.93 02/18/2024 7:45 AM CDT Plan of Treatment Upcoming Encounters Date Type Department Care Team (Late st Contact Info) Description 11/21/2024 3:15 PM CDT Home Care Visit [address] [address] Latosha Dimas, PT [address] [place] [address] 11/22/2024 10:30 AM CDT Home Care Visit [address] [address] Miguelina Guzman COTA [address] [place] [address] 11/23/2024 3:15 PM CDT Home Care Visit [address] [address] Latosha Dimas, PT [address] [place] [address] 11/27/2024 3:00 AM CDT Home Care Visit [address] [address] Latosha Dimas, PT [address] [place] [address] 11/29/2024 4:30 AM CDT Home Care Visit [address] [place] [address] Antelmo Del Castillo, OT [address] [place] [address] 11/30/2024 3:00 AM CDT Home Care Visit [facility] [address] [place] [address], [place] [address] Latosha Dimas, PT [address] [place] [address] 12/04/2024 3:00 AM CDT Home Care Visit [facility] [address] [place] [address], [place] [address] Latosha Dimas, PT [address] [place] [address] 12/07/2024 3:00 AM CDT Home Care Visit [place] [id number] [place] [address], [place] [address] Latosha Dimas, PT [address] [place] [address] 12/11/2024 3:00 AM CDT Home Care Visit [place] [id number] [place] [address], [place] [address] Latosha Dimas, PT [address] [place] [address] 12/14/2024 3:00 AM CDT Home Care Visit [facility] [address] [place] [address], [place] [address] Latosha Dimas, PT [address] [place] [address] Health Maintenance Due Date Last Done Comments Hepatitis C screening for age 18-79 1963 Depression screening for age 12+ 01/18/2020 01/17/2019, 01/12/2018, 03/09/2016, Additional history exists Medicare Wellness for age 65+ 01/18/2020 01/17/2019, 01/12/2018, 12/20/2012 Tetanus booster 05/28/2022 05/28/2012, 03/15/2003 RSV vaccine for adults or (1 - 1-dose 75+ series) 2022 COVID-19 vaccine series ( season) 2024 03/24/2022, 05/02/2021, 09/10/2020, Additional history exists BMI (ht and wt on same day) for age 18+ 07/27/2024 07/27/2023, 06/11/2023, 07/02/2022, Additional history exists Influenza Vaccine (Season Ended) 2025 04/25/2019, 04/19/2018, 03/09/2016, Additional history exists Zoster (shingles) series for age 50+ (1 of 2) 06/27/2025 Postponed from 1966 (Other) Tdap Completed 05/28/2012 Pneumococcal series for age 50+ Completed 03/28/2016, 03/09/2016, 03/28/2015, Additional history exists DEXA/DXA scan for age 65+ Completed 2017, 02/27/2015, 11/26/2011 Hepatitis B series for 19+ Aged Out N o longer eligible based on patient's age to complete this topic Medical Devices Implanted Type Area Obstetrics And Gynecology Professor Device Identifier Shelf Expiration Date Model / Serial / Lot Screw Tsrh Og Thin 6.5x50mm - [id number] Implanted:Qty: 3 on 04/28/2010 at [facility] N/A: Spine [employer] [id number]# / / Screw Locking 4x20mm Fine Tip Titnm - [id number] Implanted:Qty: 4 on 04/28/2010 at [facility] [employer] [id number] # / / Screw Thin Crest 6.5x45mm - [id number] Implanted:Qty: 1 on 04/28/2010 at [facility] [employer] [id number]# / / Set Screw 3dx - [id number] Implanted:Qty: 4 on 04/28/2010 at [facility] [id number]# / / Cnnctr Tsrh 3dx Sm - [id number] Implanted:Qty: 4 on 04/28/2010 at [facility] Medtronic [id number]# / / Rios 3.5cmx5.5mm Pre-Cut - [id number] Implanted:Qty: 2 on 04/28/2010 at [facility] [id number]# / / Kit Infuse Md - [id number] Implanted:Qty: 1 on 04/28/2010 at [facility] Spine [facility] 10/26/2012 [id number]# / / [id number] Filler Bio [id number] - [id number] Implanted:Qty: 1 on 04/28/2010 at [facility] [id number]# / / [id number] Synfix Lr 26mm Implanted:Qty: 1 on 04/28/2010 at [facility] Spine [employer] 08.802.017 S / / [id number] Description:SYNFIX LR 26MM Procedures Procedure Name Priority [...] bone density measurements were obtained using the [employer] bone densitometry system. COMPARISON: None. FINDINGS: SPINE: BMD = 1.463 gm/cm2 for the L1-L3 levels. T-score = 2.3 Z-score = 3.4 The bone mineral density within the spine may be suboptimally evaluated due to degenerative changes. HIP: BMD = 0.781 gm/cm2 for the left neck region T-score = -1.9 Z-score = -0.5 IMPRESSION: 1. Normal BMD of the spine. However, bone mineral density the quantification of the lumbar spine may be limited by degenerative changes. 2. Osteopenia of the hip. FRAX Score: 10 year risk of major osteoporotic fracture is 10.8%. Risk of hip fracture is 2.0%. Procedure Note Wero Kirkpatrick MD - 02/02/2018 EXAM: XR DXA BONE DENSITY 2 SITES AXIAL INDICATION: Disorder of bone. Osteopenia. Postmenopausal. TECHNIQUE: Standardized bone density measurements were obtained using the [employer] bone densitometry system. COMPARISON: None. FINDINGS: SPINE: [...] fracture is 2.0%. Francis Ferro MD DEXA Final Result from Last 3 Months or Most Recently Relevant to Health Maintenance Insurance [employer] [facility] MEDICARE PART B HB ONLY MEDICARE PB ONLY MEDICARE PART A HB ONLY Member Subscriber Plan / Payer (Ef fective 2012-Present) Name:Tanner James Member ID:[id number] Relation to Subscriber:Self Name:Tanner James Subscriber ID:[id number] Payer ID:Not on file Group ID:Not on file Type:Not on file Address: ATTN: CLAIMS [address] [place] [phone] MEDICARE PROVIDER BASED [facility] [address] [place] [address] MEDICARE PROVIDER BASED [place] [address] HC MEDICARE PPS Advance Directives Documents on File Type Date 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 POLST 04/29/2021 POLST 02/02/2017 1:11 PM 06/29 12/17 Healthcare Directive 04/28/2010 010 * DNR (Latest Code Status on File) Date Activated Date Inactivated Comments 02/18/2024 11:17 AM 02/21/2024 3:14 PM Question Answer Comments Code Status Discussion: Reviewed Preferences * DNR Date Activated Date Inactivated Comments 06/21/2023 6:49 [...] Code Status Discussion: Reviewed Preferences Care Teams End Finder Forming Department Relationship Specialty Start Date End Date Kyle Healy MD [address] [place] [address] PCP - General Family Practice 07/14/23 Swapnil Henley MD Rheumatology 12/20/12 Marlys Woodruff, RD [address] [place] [address] Registered Dietitian Director Medical 07/05/18 Funmi Medina, ANGEL [address] [place], [place] [id number] Occupational Therapy 05/11/23 [facility] [address] [address] 10/13/24 Mary Carpio Cardiology - Interventional 01/12/18 DR. Luo Dentistry - General 01/12/18
[2024-11-21 10:14] VITALS: BP 148/59; PULSE 83; RESP 18; TEMP 36.2; O2SAT 97; BMI 43.6
--- NOTE | 2024-11-21 10:32 | ED.GENADULT ---
HPI - General Adult General Time Seen by Provider: 10:32 Date Seen: 11/21/24 Chief complaint: Diarrhea Stated complaint: General illness Time Seen by Provider: 11/21/24 10:31 Source: patient and RN notes reviewed Mode of arrival: ambulatory Limitations: no limitations History of Present Illness HPI narrative: Tanenr is a very pleasant 79-year-old female with a history of deconditioning/obesity/lymphedema, fibromyalgia, paroxysmal atrial fibrillation, stage 3 kidney disease, rheumatoid arthritis who comes to the emergency room via EMS for evaluation regarding diarrhea. Patient notes the onset of significant diarrhea on WednesdayNovember 17. It is nonbloody but it is often whenever she eats or drinks to the point where she has actually soiled her underwear. She is primarily wheelchair bound due to sciatica and currently lives in assisted living. She needs assistance to go to the bathroom. She has not had any fever chills. She did experience nausea on WednesdayNovember 19 and because of that has not had anything to eat or drink since that time. She does note a headache today but thinks this is because she is dehydrated. She has had occasional cough in the morning and a runny nose but no difficulty breathing. She states she is currently hungry. She denies any abdominal discomfort. Patient has noted occasional diarrhea and states that she has gone through 2 boxes of anti diarrheal medication since she has been at the [facility] but the diarrhea that started in the past few days is much worse than normal. She denies a history of adrenal insufficiency, C diff, recent fever, recent travel or recent antibiotics. Patient does note that she has increased right hip pain but states that is because she has not taken her Lyrica in approximately a week. She notes that it helps her pain greatly. Patient notes a history of TAVR procedure x2, history of PE x2 currently on apixaban. Related Data Home Medications ?Medication ?Instructions ?Recorded ?Confirmed Lactobacillus acidophilus 0.5 mg 100 mmu cells PO DAILY 12/22/21 10/18/24 (100 million cell) tablet cholecalciferol (vitamin D3) 50 50 mcg PO DAILY 01/16/22 10/18/24 mcg (2,000 unit) capsule multivitamin 1 tab PO QAM 01/16/22 10/18/24 prednisone 5 mg tablet 7.5 mg PO DAILY 12/29/23 10/18/24 sulfasalazine 500 mg tablet 1 g PO BID 12/29/23 10/18/24 ascorbic acid (vitamin C) 500 mg 500 mg PO QDAY 10/18/24 10/18/24 tablet folic acid 1 mg tablet 1 mg PO QDAY 10/18/24 10/18/24 leflunomide 20 mg tablet 20 mg PO DAILY 10/18/24 10/18/24 Previous Rx's ?Medication ?Instructions ?Recorded metoprolol succinate 25 mg 25 mg PO BID #180 tabs 08/24/23 tablet,extended release 24 hr diclofenac sodium 1 % topical gel 2 g topical QID PRN #100 grams 10/25/23 (Voltaren Arthritis Pain) duloxetine 60 mg capsule,delayed 60 mg PO DAILY #90 caps 12/03/23 release potassium chloride 10 mEq 10 meq PO DAILY #90 caps 12/10/23 capsule,extended release ferrous sulfate 325 mg (65 mg 325 mg PO DAILY #100 tabs 01/18/24 iron) tablet valganciclovir 450 mg tablet 450 mg PO DAILY #90 tabs 05/10/24 pregabalin 50 mg capsule 50 mg PO BID #180 caps 08/09/24 apixaban 5 mg tablet (Eliquis) 2.5 mg (1/2 x 5 mg) PO BID #90 tabs 10/10/24 rosuvastatin 5 mg tablet 5 mg PO HS #90 tabs 10/10/24 hydrocodone 5 mg-acetaminophen 325 1 tab PO BID PRN pain #60 tabs 11/08/24 mg tablet nystatin 100,000 unit/gram topical 1 applic topical BID #30 grams 11/08/24 powder furosemide 40 mg tablet 40 mg PO DAILY #90 tabs 11/09/24 Allergies Allergy/AdvReac Type Severity Reaction Status Date / Time NSAIDS (Non-Steroidal Allergy Severe GI bleed Verified 10/18/24 14:14 Anti-Inflamma terbinafine Allergy Intermediate Headache Verified 10/18/24 14:14 levofloxacin AdvReac Severe tendon Verified 10/18/24 14:14 rupture Review of Systems Status of ROS: Reports: 10 or more systems reviewed and unremarkable except as noted in History and below Const: Reports: fatigue; Denies: fever or chills Eyes: Denies: change in vision ENMT: Reports: nasal discharge; Denies: neck pain or throat swelling Cardio: Reports: swelling of feet/ankles (Chronic); Denies: chest pain, lightheadedness or shortness of breath with exertion Resp: Denies: shortness of breath or cough GI: Reports: nausea and diarrhea; Denies: abdominal pain, vomiting or blood in stool : Denies: painful urination Musculo: Reports: back pain (Chronic); Denies: neck pain Neuro: Reports: headache Endo: Reports: fatigue Allergy/Immuno: Denies: throat swelling PFSH PFS Medical History Pressure ulcer of other site, stage 4 ?L89.894 - Pressure ulcer of other site, stage 4 (ICD-10) Hematoma ?T14.8XXA - Other injury of unspecified body region, initial encounter (ICD-10) Congestive heart failure ?I50.9 - Heart failure, unspecified (ICD-10) Non-ST elevated myocardial infarction (non-STEMI) ?I21.4 - Non-ST elevation (NSTEMI) myocardial infarction (ICD-10) 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 - Aneurysm of artery of lower extremity (ICD-10) Obesity (BMI 30.0-34.9) ?E66.9 - Obesity, unspecified (ICD-10) Alcohol use disorder ?F10.90 - Alcohol use, unspecified, uncomplicated (ICD-10) Pulmonary embolism ?I26.99 - Other pulmonary embolism without acute cor pulmonale (ICD-10) Gastrointestinal hemorrhage ?K92.2 - Gastrointestinal hemorrhage, unspecified (ICD-10) Aortic stenosis, severe ?I35.0 - Nonrheumatic aortic (valve) stenosis (ICD-10) History of kidney stones ?Z87.442 - Personal history of urinary calculi (ICD-10) Mitral annular calcification ?I05.9 - Rheumatic mitral valve disease, unspecified (ICD-10) Surgical History Status post transcatheter aortic valve replacement (TAVR) using bioprosthesis ?Z95.3 - Presence of xenogenic heart valve (ICD-10) S/P cataract extraction ?Z98.49 - Cataract extraction status, unspecified eye (ICD-10) S/P cholecystectomy ?Z90.49 - Acquired absence of other specified parts of digestive tract (ICD-10) History of left nephrectomy ?Z90.5 - Acquired absence of kidney (ICD-10) History of lumbar fusion (04/2010) ?Z98.1 - Arthrodesis status (ICD-10) History of lithotripsy ?Z98.890 - Other specified postprocedural states (ICD-10) Family History Mother Breast cancer, Onset Age: 70 Sister Breast cancer, Onset Age: 35 Social History Narrative: Has been living at [facility] an intrapartum apartment with a retail personal banker present for 4 hours on 3 days a week. Manages her own medications. Code status is DNR DNI What is your current living situation?: I presently have a place to live Problems where you live: no known problems Problems where you live details: n/a In the past 12 months, utilities in danger of being shut off: no In past 12 months, lack of transportation kept you from medical appts, meetings, work, or getting things needed for daily living: no In the past 12 mos, have been you worried that your food would run out before you had money to buy more?: never true In the past 12 mos, the food you bought just didn't last and you didn't have money to buy more?: never true Highest level of school completed/degree received: high school graduate Smoking Status: Never smoker Do you use any of these nicotine containing products: None Second hand tobacco smoke exposure: Yes How often do you have a drink containing alcohol: never How often do you have six or more drinks on one occasion: Never AUDIT-C Alcohol total score: 0 Non-prescribed substance use: denies use Caffeine: Yes How often does anyone, including family, friends and others, physically hurt you: never How often does anyone, including family, friends and others, insult or talk down to you: never How often does anyone, including family, friends and others, threaten you with harm: never How often does anyone, including family, friends and others, scream or curse at you: never service: No Exam Narrative: Exam Narrative: Alert and oriented. Somewhat pale in appearance. Mentation and speech are normal. Face symmetrical. Lips do appear to be dry. Heart with a regular rate and rhythm. Lungs are with distant breath sounds but are clear. Abdomen is soft tenderness noted in the right lower quadrant. Lower extremities with 2 to 3+ lymphedema. Moving extremities without difficulty. Darkened skin changes consistent with venous stasis on lower extremities. Const: Vital Signs, click to edit/add: Vital Signs - 24 hr 11/21/24 10:14 11/21/24 13:21 Temperature 97.1 F L Pulse Rate [Pulse Oximeter] 83 72 Respiratory Rate 18 18 Blood Pressure [Le ft Upper Arm] 148/59 H 156/57 H Pulse Oximetry 97 95 Oxygen Delivery Me thod Room Air Room Air Documenting provider has reviewed patient's vital signs: yes Course Course ED Course: Differential diagnosis includes but is not limited to viral gastroenteritis, viral respiratory illness, C diff, colitis, food-borne illness. At this time will place IV, draw labs to include CBC, comprehensive, lactate, CRP. Check urinalysis and plan on CT of the abdomen. Zofran 4 mg IV and 1 L of normal saline will also be given. Patient is in agreement with this plan. Reevaluation(s) Reevaluation #1: CT reassuring. Laboratory values reassuring. Patient notes abrupt discontinuation of Lyrica 1 week ago. Given this it may be a cause of her diarrhea. She notes that she does simply ran out of the medication. She was on 50 mg b.i.d.. Will restart at 25 mg at this time. Reevaluation #2: Patient noted to be feeling much better and able to tolerate liquids. Vital Signs Vital signs: Initial Vital Signs Temperature 97.1 F L 11/21/24 10:14 Temperature Source Temporal Artery Scan 11/21/24 10:14 Pulse Rate 83 11/21/24 10:14 Respiratory Rate 18 11/21/24 10:14 Blood Pressure 148/59 H 11/21/24 10:14 Blood Pressure Mean 88 11/21/24 10:14 Pulse Oximetry 97 11/21/24 10:14 Oxygen Delivery Method Room Air 11/21/24 10:14 Vital Signs Temperature 97.1 F L 11/21/24 10:14 Pulse Rate 83 11/21/24 10:14 Respiratory Rate 18 11/21/24 10:14 Blood Pressure 148/59 H 11/21/24 10:14 Pulse Oximetry 97 11/21/24 10:14 Oxygen Delivery Method Room Air 11/21/24 10:14 Temperature 97.1 F L 11/21/24 10:14 Pulse Rate 72 11/21/24 13:21 Respiratory Rate 18 11/21/24 13:21 Blood Pressure 156/57 H 11/21/24 13:21 Pulse Oximetry 95 11/21/24 13:21 Oxygen Delivery Method Room Air 11/21/24 13:21 Medications Administered Medications: Discontinued Medications Generic Name Dose Route Start Last Admin Trade Name Opal PRN Reason Stop Dose Admin Sodium Chloride 500 mls @ 1,000 mls/hr 11/21/24 10:53 11/21/24 12:27 0.9 % Sodium Chloride 500 Ml IV 11/21/24 11:22 Infused .Q30M MICHELLE Infusion Ondansetron HCl 4 mg 11/21/24 10:53 11/21/24 14:15 Ondansetron 2 Mg/Ml Inj IVP 11/21/24 10:54 Not Given ONCE ONE Pregabalin 25 mg 11/21/24 13:53 11/21/24 14:33 Pregabalin 25 Mg Capsule PO 11/21/24 13:54 25 mg ONCE ONE Administration Medical Decision Making MDM Narrative Medical decision making narrative: 1. Diarrhea-patient had no further episodes of diarrhea while in the emergency room. Her electrolytes were reassuring as was her noncontrast CT of the abdomen with no evidence of colitis. Patient did receive a dose of Lyrica as she had not had her Lyrica for 1 week because she had run out of the prescription. Certainly the diarrhea could be a side effect from sudden discontinuance. We will be sending home the stool sample cup for her to bring back with stool should she have ongoing diarrhea. Patient received 1 L of normal saline as well as Zofran hand has been able to to take and keep p.o. down. 2. Right leg pain-neuropathic leg pain improved by Lyrica here. She may return to her normal dosing later this evening. 3. Disposition-home at this time. Patient is requesting ambulance transport back to her home which the nurses are trying to arrange at this time. Return to the ER for worsening symptoms and as needed. Lab Data Lab results reviewed: Yes I reviewed the patient's lab results Labs: Lab Results 11/21/24 11/21/24 11/21/24 Range/Units 11:17 11:18 12:20 WBC 5.39 (4.50-11.00) K/uL RBC 3.56 L (4.00-5.20) m/uL Hgb 11.9 L (12.0-16.0) gm/dL Hct 38.2 (33.0-51.0) % MCV 107 H (80-100) fL MCH 33 (26-34) pg MCHC 31 L (32-36) gm/dL RDW Coeff of Nav[place] 13.3 (11.5-15.5) % Plt Count 75 L (140-440) K/uL Neut % (Auto) 57.3 (42.0-72.0) % Lymph % (Auto) 32.3 (20-44) % [place] % (Auto) 8.0 (0.0-11.0) % Eos % (Auto) 1.3 (0.0-7.0) % Baso % (Auto) 0.7 (0.0-3.0) % Neut # (Auto) 3.09 (1.7-7.0) K/uL Lymph # (Auto) 1.74 (0.90-2.90) K/uL [place] # (Auto) 0.40 (0.00-0.90) K/UL Eos # (Auto) 0.07 (0.00-0.50) K/uL Baso # (Auto) 0.04 (0.00-0.30) K/uL Abs Immat Gran (auto) 0.02 (0.00-0.30) K/uL Imm/Tot Granulo (auto) 0.4 % Sodium 139 (135-149) mmol/L Potassium 3.9 (3.6-5.1) mmol/L Chloride 108 (96-114) mmol/L Carbon Dioxide 25 (20-32) mmol/L Anion Gap 6 L (7-15) mEq/L BUN 14 (7-30) mg/dL Creatinine 0.9 (0.5-1.5) mg/dL Estimated Creat Clear 38.97 Estimated GFR 66 ml/min Glucose 90 (60-115) mg/dL Lactate 1.4 (0.5-1.9) mmol/L Calcium 8.8 (8.4-10.6) mg/dL Total Bilirubin 0.9 (0.1-1.5) mg/dL AST 42 H (12-35) U/L ALT 19 (4-35) U/L Alkaline Phosphatase 89 (40-150) U/L C-Reactive Protein 0.5 (0.5-1.0) mg/dL Total Protein 6.5 (6.0-8.3) g/dL Albumin 4.0 (3.3-5.0) g/dL Urine Color Yellow (Yellow) Urine Appearance Slightly Cloudy A (Clear) Urine pH 6.0 (5.0-8.5) Ur Specific [place] <= 1.005 (1.000-1.030) Urine Protein Negative (Negative) Urine Glucose (UA) Negative (Negative) Urine Ketones Negative (Negative) Urine Blood Negative (Negative) Urine Nitrite Positive A (Negative) Urine Bilirubin Negative (Negative) Urine Urobilinogen 0.2 (0.2-1.0) Ur Leukocyte Esterase 1+ A (Negative) Urine RBC 0-2 (0-2) Urine WBC 5-10 A (0-5) Ur Squamous Epith Cells Moderate A (None-Few) Urine Bacteria Many A (None) SARS-CoV-2 (PCR) Negative SARS-CoV-2 (Negative) Influenza Type A (PCR) Negative PCR FLU A (Negative) Influenza Type B (PCR) Negative PCR FLU B (Negative) RSV (PCR) Negative PCR RSV (Negative) Imaging Data CT scan - abdomen: Attestation: I have reviewed the pertinent imaging results. My impression: No evidence of bowel obstruction or colitis. Radiologist's impression: Lower chest: TAVR. Motion. Calcified granulomas. Basilar linear opacities likely linear atelectasis/linear fibrosis. Dense calcification the mitral valve and central portions of the left ventricle. ABDOMEN: Liver: Normal attenuation. Calcified granuloma. Questionable cirrhotic morphology. Gallbladder and biliary: Cholecystectomy. Normal caliber aorta with atherosclerotic calcifications. Spleen: Calcified granulomas. Pancreas: The noncontrast pancreas is homogeneous in attenuation without peripancreatic inflammatory changes or ductal dilatation. Adrenal glands: Normal adrenal glands. Kidneys and ureters: Left nephrectomy. Likely area of fat necrosis in the posterior left perirenal space. Similar from prior exam. Normal attenuation of the right kidney. No nephrolithiasis. No hydroureteronephrosis. GI tract: The stomach is relatively decompressed. Normal caliber small and large bowel loops. Normal appendix. Vascular structures: Normal caliber aorta with atherosclerotic calcifications. Lymph nodes: No lymphadenopathy in the abdomen or pelvis by size criteria. Peritoneum: No free air, free fluid, or focal drainable fluid collection. PELVIS: Genitourinary system: Urinary bladder is decompressed. Likely multiple calcified uterine fibroids. Relatively atrophic uterus. SKELETAL STRUCTURES AND SOFT TISSUES: Lumbar laminectomies with fixation hardware. Lumbar spondylosis. Heterotopic ossification abutting the ischial tuberosities likely reflecting remote hamstrings injuries. Heterotopic ossification in the right distal iliopsoas musculature. IMPRESSION: No discrete acute abdominal or pelvic process. No obstruction. Normal appendix. No hydroureteronephrosis or nephrolithiasis. No imaging findings to explain the reported clinical symptoms. Discharge Plan Discharge Clinical Impression: Diarrhea Patient Disposition: Home, Self-Care Condition: Improved Additional Instructions: If you have continued diarrhea at home please bring back a stool sample for evaluation. Otherwise push fluids. You may return to your normal doses of medication this evening. Return to the ER as needed Prescriptions: No Action duloxetine 60 mg capsule,delayed release(DR/EC) 60 mg PO DAILY Qty: 90 3RF prednisone 5 mg tablet 7.5 mg PO DAILY sulfasalazine 500 mg tablet 1 g PO BID Rx Instructions: give with food (meal/snack) cholecalciferol (vitamin D3) 50 mcg (2,000 unit) capsule 50 mcg PO DAILY multivitamin Tablet 1 tab PO QAM metoprolol succinate 25 mg tablet extended release 24 hr 25 mg PO BID Qty: 180 3RF folic acid 1 mg tablet 1 mg PO QDAY ascorbic acid (vitamin C) 500 mg tablet 500 mg PO QDAY leflunomide 20 mg tablet 20 mg PO DAILY Lactobacillus acidophilus 0.5 mg (100 million cell) tablet 100 mmu cells PO DAILY diclofenac sodium [Voltaren Arthritis Pain] 1 % gel 2 g topical QID PRNQty: 100 0RF Rx Instructions: apply to single elbow, wrist or hand; for hand includes palm/fingers/back of hand ferrous sulfate 325 mg (65 mg iron) Tablet 325 mg PO DAILY Qty: 100 0RF potassium chloride 10 mEq capsule, extended release 10 meq PO DAILY Qty: 90 3RF valganciclovir 450 mg tablet 450 mg PO DAILY Qty: 90 3RF pregabalin 50 mg capsule 50 mg PO BID Qty: 180 3RF Eliquis 5 mg tablet 2.5 mg PO BID Qty: 90 0RF rosuvastatin 5 mg tablet 5 mg PO HS Qty: 90 3RF nystatin 100,000 unit/gram powder 1 applic topical BID Qty: 30 2RF hydrocodone-acetaminophen 5-325 mg tablet 1 tab PO BID PRN (Reason: pain) Qty: 60 0RF furosemide 40 mg tablet 40 mg PO DAILY Qty: 90 1RF Follow Up/Referrals: Kyle Healy MD [Primary Care Provider, Family Practice] Stand Alone Forms: [facility] Info Instructions
[2024-11-21] MEDS: 0.9 % SODIUM CHLORIDE 500 ML 500 ML 1000 ML IV (11:21)
[2024-11-21 11:27] LABS: Lactate* 1.4 mmol/L (0.5-1.9)
[2024-11-21 11:29] LABS: Basophils Absolute Auto 0.04 K/uL (0.00-0.30); Basophils Percent Auto 0.7 % (0.0-3.0); Eosinophils Absolute Auto 0.07 K/uL (0.00-0.50); Eosinophils Percent Auto 1.3 % (0.0-7.0); Hematocrit 38.2 % (33.0-51.0); Hemoglobin* 11.9 gm/dL (12.0-16.0); Immature Granulocytes Abs Auto 0.02 K/uL (0.00-0.30); Immature Granulocytes Pct Auto 0.4 %; Lymphocytes Absolute Auto 1.74 K/uL (0.90-2.90); Lymphocytes Percent Auto 32.3 % (20-44); Mean Corpuscular HGB Conc 31 gm/dL (32-36); Mean Corpuscular Hemoglobin 33 pg (26-34); Mean Corpuscular Volume 107 fL (80-100); Neutrophils Absolute Auto 3.09 K/uL (1.7-7.0); Neutrophils Percent Auto 57.3 % (42.0-72.0); Platelet Count* 75 K/uL (140-440); RDW Coefficient of Variation % 13.3 % (11.5-15.5); Red Blood Count 3.56 m/uL (4.00-5.20); White Blood Count* 5.39 K/uL (4.50-11.00)
[2024-11-21 11:35] LABS: Slide Review Reflex No
[2024-11-21 11:51] LABS: Chloride* 108 mmol/L (96-114)
[2024-11-21 11:52] LABS: Potassium* 3.9 mmol/L (3.6-5.1); Sodium* 139 mmol/L (135-149)
[2024-11-21 11:55] LABS: Alanine Aminotransferase* 19 U/L (4-35); Alkaline Phosphatase* 89 U/L (40-150); Anion Gap 6 mEq/L (7-15); Aspartate Amino Transferase* 42 U/L (12-35); Bilirubin Total* 0.9 mg/dL (0.1-1.5); Blood Urea Nitrogen* 14 mg/dL (7-30); Carbon Dioxide* 25 mmol/L (20-32); Creatinine* 0.9 mg/dL (0.5-1.5); Est. Creatinine Clearance* 38.97; Estimated Glomerular Filt Rate 66 ml/min; Total Protein* 6.5 g/dL (6.0-8.3)
[2024-11-21 11:56] LABS: Calcium* 8.8 mg/dL (8.4-10.6); Glucose* 90 mg/dL (60-115)
[2024-11-21 11:58] LABS: C Reactive Protein* 0.5 mg/dL (0.5-1.0)
[2024-11-21 12:05] LABS: PCR FLU A Negative PCR FLU A (Negative); PCR FLU B Negative PCR FLU B (Negative); PCR RSV Negative PCR RSV (Negative); SARS PCR* Negative SARS-CoV-2 (Negative)
--- NOTE | 2024-11-21 12:07 | CRLHL7_ITS ---
For Patients: As a result of the Century Cures Act, medical imaging exams and procedure reports are released immediately into your electronic medical record. You may view this report before your referring provider. If you have questions, please contact your health care provider. INDICATION: .RLQ PAIN AND DIARRHEA TECHNIQUE: CT abdomen and pelvis without contrast. COMPARISON: Exams dating back to 2021. FINDINGS: Lower chest: TAVR. Motion. Calcified granulomas. Basilar linear opacities likely linear atelectasis/linear fibrosis. Dense calcification the mitral valve and central portions of the left ventricle. ABDOMEN: Liver: Normal attenuation. Calcified granuloma. Questionable cirrhotic morphology. Gallbladder and biliary: Cholecystectomy. Normal caliber aorta with atherosclerotic calcifications. Spleen: Calcified granulomas. Pancreas: The noncontrast pancreas is homogeneous in attenuation without peripancreatic inflammatory changes or ductal dilatation. Adrenal glands: Normal adrenal glands. Kidneys and ureters: Left nephrectomy. Likely area of fat necrosis in the posterior left perirenal space. Similar from prior exam. Normal attenuation of the right kidney. No nephrolithiasis. No hydroureteronephrosis. GI tract: The stomach is relatively decompressed. Normal caliber small and large bowel loops. Normal appendix. Vascular structures: Normal caliber aorta with atherosclerotic calcifications. Lymph nodes: No lymphadenopathy in the abdomen or pelvis by size criteria. Peritoneum: No free air, free fluid, or focal drainable fluid collection. PELVIS: Genitourinary system: Urinary bladder is decompressed. Likely multiple calcified uterine fibroids. Relatively atrophic uterus. SKELETAL STRUCTURES AND SOFT TISSUES: Lumbar laminectomies with fixation hardware. Lumbar spondylosis. Heterotopic ossification abutting the ischial tuberosities likely reflecting remote hamstrings injuries. Heterotopic ossification in the right distal iliopsoas musculature. IMPRESSION: No discrete acute abdominal or pelvic process. No obstruction. Normal appendix. No hydroureteronephrosis or nephrolithiasis. No imaging findings to explain the reported clinical symptoms. Please note that all CT scans at this facility use dose modulation, iterative reconstruction, and/or weight-based dosing when appropriate to reduce radiation dose to as low as reasonably achievable. Dictated by José Miguel Gee MD @ 11/21/2024 12:50:52 PM (Electronically Signed)
[2024-11-21 12:33] LABS: Appearance Urine Slightly Cloudy (Clear); Bilirubin Urine Negative (Negative); Blood Urine Negative (Negative); Color Urine Yellow (Yellow); Glucose Urine Negative (Negative); Ketones Urine Negative (Negative); Leukocyte Esterase Urine 1+ (Negative); Nitrite Urine Positive (Negative); Protein Urine Negative (Negative); Specific Gravity Urine <= 1.005 (1.000-1.030); Urobilinogen Urine 0.2 (0.2-1.0)
[2024-11-21 12:43] LABS: Bacteria Urine Many; RBC Urine 0-2 (0-2); Squamous Epithelial Cell Urine Moderate (None-Few)
[2024-11-21 13:21] VITALS: BP 156/57; PULSE 72; RESP 18; O2SAT 95
[2024-11-21] MEDS: PREGABALIN 25 MG CAPSULE PO (14:33)
--- NOTE | 2024-11-21 15:52 | ED.NURSE ---
Called [facility] and spoke w/ Genoveva. Informed her that pt will be returning via stretcher transport. Pt feels she is unable to safely get in and out of a car and requested EMS transport home. Reviewed potential out of pocket cost w/ patient who was agreeable. Reviewed discharge instructions and provided pt w/ supplies for stool collection. Pt reports she has updated her daughter by phone on her plan of care and disposition.
== END 2024-11-21 15:57 | disposition home or self-care (01) ==
PROVIDERS: Emergency Provider Family Medicine; PCP Family Medicine
DX: R19.7 Diarrhea, unspecified (principal)
CPT/HCPCS: 36415; 74176; 80053; 81001; 83605; 85025; 86140; 87045; 87046; 87086; 87427; 87493; 87507; 87631; 99283; 99284; A9270; J7030

== ENCOUNTER 2024-11-21 15:59 | Outpatient (CLI) | payer MEDICARE, OTHER, SELFPAY | END 2024-11-21 16:00 | disposition home or self-care (01) | LOC: AMB 11-27 08:09 | PROVIDERS: PCP Family Medicine; Visit Provider Family Medicine | DX: R19.7 Diarrhea, unspecified (principal) | CPT/HCPCS: A0425; A0428 ==

== ENCOUNTER 2024-12-01 12:06 | Outpatient (CLI) | payer MEDICARE, OTHER, SELFPAY | END 2024-12-01 12:07 | disposition home or self-care (01) | PROVIDERS: PCP Family Medicine; Visit Provider Family Medicine | DX: R07.89 Other chest pain (principal) | CPT/HCPCS: A0425; A0427 ==

== ENCOUNTER 2024-12-01 13:01 | Emergency (ER) | payer MEDICARE, OTHER, SELFPAY ==
[2024-12-01] VITALS (45 sets, daily range): BP systolic 95–148; BP diastolic 38–78; PULSE 63–98; RESP 6–33; TEMP 35.9; O2SAT 89–100; BMI 39.0
[2024-12-01] MEDS: NITROGLYCERIN 0.4 MG TAB.SUBL SUBLINGUAL (13:02)
--- NOTE | 2024-12-01 13:02 | CRLHL7_ITS ---
For Patients: As a result of the Century Cures Act, medical imaging exams and procedure reports are released immediately into your electronic medical record. You may view this report before your referring provider. If you have questions, please contact your health care provider. INDICATION: Chest pain TECHNIQUE: PA and lateral COMPARISON: Chest CT of 10/26/2023 and chest x-ray of 05/04/2023 FINDINGS: Lungs low in volume with crowded markings. No obvious infiltrate. No pleural effusion. Heart size and pulmonary vasculature within normal limits, allowing for the shallow inspiration. No significant bony abnormality. IMPRESSION: Negative chest, allowing for shallow inspiration. Dictated by Alejandro Downey MD @ 12/01/2024 1:54:00 PM (Electronically Signed)
--- NOTE | 2024-12-01 13:06 | ED.GENADULT ---
HPI - General Adult General Chief complaint: Chest Pain Stated complaint: Chest pain Source: patient Mode of arrival: EMS Limitations: no limitations History of Present Illness HPI narrative: 79-year-old female with complicated medical history which includes chronic kidney disease, chronic pain, chronic lymphedema, pancytopenia, GERD, cognitive impairment, fibromyalgia, hypertension, hyperlipidemia, history of PE on chronic anticoagulation presents today with chest pain. Chest pain has been present for approximately 4 hours. It is located in the central chest. Nothing makes it better, deep breathing makes it worse. Patient states that she was in her usual state health when she woke up this morning. Had care kick for breakfast. Chest pain developed around 930 in the morning and then around 10:00 a.m. she went to her activity of the day which was singing. She states that she was only able to sing for a little bit of time before she went and saw the nurse. She then went back to her activity and was not able to sing any further because she felt slightly short of breath. She is not dizzy or diaphoretic. She denies recent illness. She has a morning cough which was normal the morning and no other coughing during the day. No changes to her appetite. Took all of her medications this morning as prescribed. Patient lives in assisted living, [facility]. Uses a wheelchair. Related Data Home Medications ?Medication ?Instructions ?Recorded ?Confirmed Lactobacillus acidophilus 0.5 mg 100 mmu cells PO DAILY 12/22/21 10/18/24 (100 million cell) tablet cholecalciferol (vitamin D3) 50 50 mcg PO DAILY 01/16/22 10/18/24 mcg (2,000 unit) capsule multivitamin 1 tab PO QAM 01/16/22 10/18/24 prednisone 5 mg tablet 7.5 mg PO DAILY 12/29/23 10/18/24 sulfasalazine 500 mg tablet 1 g PO BID 12/29/23 10/18/24 ascorbic acid (vitamin C) 500 mg 500 mg PO QDAY 10/18/24 10/18/24 tablet folic acid 1 mg tablet 1 mg PO QDAY 10/18/24 10/18/24 leflunomide 20 mg tablet 20 mg PO DAILY 10/18/24 10/18/24 Previous Rx's ?Medication ?Instructions ?Recorded diclofenac sodium 1 % topical gel 2 g topical QID PRN #100 grams 10/25/23 (Voltaren Arthritis Pain) potassium chloride 10 mEq 10 meq PO DAILY #90 caps 12/10/23 capsule,extended release ferrous sulfate 325 mg (65 mg 325 mg PO DAILY #100 tabs 01/18/24 iron) tablet valganciclovir 450 mg tablet 450 mg PO DAILY #90 tabs 05/10/24 pregabalin 50 mg capsule 50 mg PO BID #180 caps 08/09/24 apixaban 5 mg tablet (Eliquis) 2.5 mg (1/2 x 5 mg) PO BID #90 tabs 10/10/24 rosuvastatin 5 mg tablet 5 mg PO HS #90 tabs 10/10/24 hydrocodone 5 mg-acetaminophen 325 1 tab PO BID PRN pain #60 tabs 11/08/24 mg tablet nystatin 100,000 unit/gram topical 1 applic topical BID #30 grams 11/08/24 powder furosemide 40 mg tablet 40 mg PO DAILY #90 tabs 11/09/24 duloxetine 60 mg capsule,delayed 60 mg PO DAILY #90 caps 11/22/24 release metoprolol succinate 25 mg 25 mg PO BID #180 tabs 11/22/24 tablet,extended release 24 hr Allergies Allergy/AdvReac Type Severity Reaction Status Date / Time NSAIDS (Non-Steroidal Allergy Severe GI bleed Verified 12/01/24 12:58 Anti-Inflamma terbinafine Allergy Intermediate Headache Verified 12/01/24 12:58 levofloxacin AdvReac Severe tendon Verified 12/01/24 12:58 rupture Review of Systems Status of ROS: Reports: 10 or more systems reviewed and unremarkable except as noted in History and below [facility] Medical History Pressure ulcer of other site, stage 4 ?L89.894 - Pressure ulcer of other site, stage 4 (ICD-10) Hematoma ?T14.8XXA - Other injury of unspecified body region, initial encounter (ICD-10) Congestive heart failure ?I50.9 - Heart failure, unspecified (ICD-10) Non-ST elevated myocardial infarction (non-STEMI) ?I21.4 - Non-ST elevation (NSTEMI) myocardial infarction (ICD-10) 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 - Aneurysm of artery of lower extremity (ICD-10) Obesity (BMI 30.0-34.9) ?E66.9 - Obesity, unspecified (ICD-10) Alcohol use disorder ?F10.90 - Alcohol use, unspecified, uncomplicated (ICD-10) Pulmonary embolism ?I26.99 - Other pulmonary embolism without acute cor pulmonale (ICD-10) Gastrointestinal hemorrhage ?K92.2 - Gastrointestinal hemorrhage, unspecified (ICD-10) Aortic stenosis, severe ?I35.0 - Nonrheumatic aortic (valve) stenosis (ICD-10) History of kidney stones ?Z87.442 - Personal history of urinary calculi (ICD-10) Mitral annular calcification ?I05.9 - Rheumatic mitral valve disease, unspecified (ICD-10) Surgical History Status post transcatheter aortic valve replacement (TAVR) using bioprosthesis ?Z95.3 - Presence of xenogenic heart valve (ICD-10) S/P cataract extraction ?Z98.49 - Cataract extraction status, unspecified eye (ICD-10) S/P cholecystectomy ?Z90.49 - Acquired absence of other specified parts of digestive tract (ICD-10) History of left nephrectomy ?Z90.5 - Acquired absence of kidney (ICD-10) History of lumbar fusion (04/2010) ?Z98.1 - Arthrodesis status (ICD-10) History of lithotripsy ?Z98.890 - Other specified postprocedural states (ICD-10) Family History Mother Breast cancer, Onset Age: 70 Sister Breast cancer, Onset Age: 35 Social History Narrative: Has been living at [facility] an intrapartum apartment with a personalized living manager nurse present for 4 hours on 3 days a week. Manages her own medications. Code status is DNR DNI What is your current living situation?: I presently have a place to live Problems where you live: no known problems Problems where you live details: n/a In the past 12 months, utilities in danger of being shut off: no In past 12 months, lack of transportation kept you from medical appts, meetings, work, or getting things needed for daily living: no In the past 12 mos, have been you worried that your food would run out before you had money to buy more?: never true In the past 12 mos, the food you bought just didn't last and you didn't have money to buy more?: never true Highest level of school completed/degree received: high school graduate Smoking Status: Never smoker Do you use any of these nicotine containing products: None Second hand tobacco smoke exposure: Yes How often do you have a drink containing alcohol: never How often do you have six or more drinks on one occasion: Never AUDIT-C Alcohol total score: 0 Non-prescribed substance use: denies use Caffeine: Yes How often does anyone, including family, friends and others, physically hurt you: never How often does anyone, including family, friends and others, insult or talk down to you: never How often does anyone, including family, friends and others, threaten you with harm: never How often does anyone, including family, friends and others, scream or curse at you: never service: No Exam Narrative: Exam Narrative: Obese patient in no acute distress. Alert and oriented. Answers questions appropriately. Mood and affect are appropriate. Thoughts are goal oriented and rational. No tangential or magical thinking noted. Patient speaks in full sentences without needing to catch her breath. HEENT: Normocephalic atraumatic. Blind in left eye. Conjunctivae are moist without any icterus noted. Moist mucous membranes. Neck is supple. Cardiovascular: Heart is regular rate and rhythm S1 and S2 are present with a soft 1/6 systolic murmur. Lungs: Clear to auscultation bilaterally no wheezes rhonchi or rales are appreciated. Deep breathing causes discomfort. I can reproduce her pain with palpation of the anterior chest wall. Abdomen: Obese, soft and nontender nondistended with normal bowel sounds. Extremities: Bilateral lower extremities show chronic lymphedema with 2+ pitting edema bilaterally Skin: Well perfused. Scattered bruising throughout the upper extremities. Patient is not clammy or diaphoretic. Const: Vital Signs, click to edit/add: Vital Signs - 24 hr 12/01/24 12:54 12/01/24 13:00 12/01/24 13:00 Temperature 96.7 F L Pulse Rate 69 Pulse Rate [Pulse Oximeter] 72 Respiratory Rate 20 9 L Blood Pressure Blood Pressure [Ri ght Upper Arm] 148/78 H Pulse Oximetry 97 97 99 Oxygen Delivery Me thod Nasal Cannula Nasal Cannula Oxygen Flow Rate 2 12/01/24 13:15 12/01/24 13:44 12/01/24 13:45 Temperature Pulse Rate Pulse Rate [Pulse Oximeter] Respiratory Rate 10 L 24 6 L Blood Pressure Blood Pressure [Ri ght Upper Arm] Pulse Oximetry Oxygen Delivery Me thod Nasal Cannula Oxygen Flow Rate 2 12/01/24 13:48 12/01/24 13:50 12/01/24 13:51 Temperature Pulse Rate 68 66 76 Pulse Rate [Pulse Oximeter] Respiratory Rate 19 18 19 Blood Pressure 97/56 L 99/42 L Blood Pressure [Ri ght Upper Arm] Pulse Oximetry 91 93 91 Oxygen Delivery Me thod Room Air Room Air Oxygen Flow Rate 12/01/24 14:00 12/01/24 14:02 12/01/24 14:15 Temperature Pulse Rate 67 67 66 Pulse Rate [Pulse Oximeter] Respiratory Rate 22 9 L Blood Pressure 100/42 L Blood Pressure [Ri ght Upper Arm] Pulse Oximetry 95 93 95 Oxygen Delivery Me thod Oxygen Flow Rate 12/01/24 14:17 12/01/24 14:18 12/01/24 14:30 Temperature Pulse Rate 65 65 66 Pulse Rate [Pulse Oximeter] Respiratory Rate 15 22 23 Blood Pressure 102/45 L Blood Pressure [Ri ght Upper Arm] Pulse Oximetry 94 94 100 Oxygen Delivery Me thod Oxygen Flow Rate 12/01/24 14:32 12/01/24 14:33 12/01/24 14:45 Temperature Pulse Rate 67 70 63 Pulse Rate [Pulse Oximeter] Respiratory Rate 8 L 24 Blood Pressure 105/39 L Blood Pressure [Ri ght Upper Arm] Pulse Oximetry 100 100 100 Oxygen Delivery Me thod Oxygen Flow Rate 12/01/24 14:47 12/01/24 14:48 12/01/24 15:00 Temperature Pulse Rate 65 65 66 Pulse Rate [Pulse Oximeter] Respiratory Rate 12 12 23 Blood Pressure 108/45 L Blood Pressure [Ri ght Upper Arm] Pulse Oximetry 96 95 92 Oxygen Delivery Me thod Oxygen Flow Rate 12/01/24 15:03 12/01/24 15:04 12/01/24 15:15 Temperature Pulse Rate 70 69 Pulse Rate [Pulse Oximeter] Respiratory Rate 10 L 10 L 19 Blood Pressure 104/49 L Blood Pressure [Ri ght Upper Arm] Pulse Oximetry 95 95 Oxygen Delivery Me thod Room Air Oxygen Flow Rate 12/01/24 15:17 12/01/24 15:18 12/01/24 15:30 Temperature Pulse Rate 77 Pulse Rate [Pulse Oximeter] Respiratory Rate 19 23 14 Blood Pressure 96/58 L Blood Pressure [Ri ght Upper Arm] Pulse Oximetry 93 Oxygen Delivery Me thod Oxygen Flow Rate 12/01/24 15:32 12/01/24 15:45 12/01/24 15:47 Temperature Pulse Rate Pulse Rate [Pulse Oximeter] Respiratory Rate 24 19 Blood Pressure 108/56 L 107/52 L Blood Pressure [Ri ght Upper Arm] Pulse Oximetry 92 Oxygen Delivery Me thod Oxygen Flow Rate 12/01/24 16:00 12/01/24 16:02 12/01/24 16:15 Temperature Pulse Rate 98 79 78 Pulse Rate [Pulse Oximeter] Respiratory Rate 18 10 L 12 Blood Pressure 108/45 L Blood Pressure [Ri ght Upper Arm] Pulse Oximetry 90 Oxygen Delivery Me thod Oxygen Flow Rate 12/01/24 16:17 Temperature Pulse Rate 75 Pulse Rate [Pulse Oximeter] Respiratory Rate 22 Blood Pressure 118/38 L Blood Pressure [Ri ght Upper Arm] Pulse Oximetry Oxygen Delivery Me thod Oxygen Flow Rate Course Course ED Course: 325 mg aspirin given by EMS EN route. Patient is currently symptomatic-sublingual nitro given upon arrival. EKG, read by me, shows normal sinus rhythm with a pulse of 71. Normal QTC, CO and QRS intervals. Chest x-ray, read by me, is unremarkable. Sublingual nitro did not really impact her pain. Did drop her blood pressure to 97/56. Because of this she did receive 250 mL of normal saline over an hour. Her blood pressure did go back up into the low 100s systolic and into the 60s diastolic. Initial round of blood work was unremarkable. Troponin within normal limits. Repeat EKG and repeat troponin were unchanged. Third repeat troponin unchanged. At the time of her 3rd troponin it has been 7 hours since symptoms began. While she was here she also received 1 tablet of Drumright, this seemed to help her pain and she was feeling much better afterwards. Upon further conversation patient does tell me that she started a new physical therapy regimen yesterday that requires her to stand up and use her arms and upper body to remain standing. She is wondering if this could be the cause of her pain today. Given that her laboratory workup is unremarkable, sublingual nitro did not do anything for her discomfort and that her pain is reproducible on physical examination, I do think that her pain is likely musculoskeletal in nature does not represent an acute coronary syndrome. Patient is not tachypneic, tachycardic or hypoxic-I do not think patient has a PE. There is no evidence of pneumonia, pericarditis or myocarditis. No evidence of lung injury or pneumothorax. Symptoms would be inconsistent with an aortic dissection. Vital Signs Vital signs: Initial Vital Signs Temperature 96.7 F L 12/01/24 12:54 Temperature Source Temporal Artery Scan 12/01/24 12:54 Pulse Rate 72 12/01/24 12:54 Respiratory Rate 20 12/01/24 12:54 Blood Pressure 148/78 H 12/01/24 12:54 Blood Pressure Mean 101 12/01/24 12:54 Blood Pressure Position Sitting 12/01/24 12:54 Pulse Oximetry 97 12/01/24 12:54 Oxygen Delivery Method Nasal Cannula 12/01/24 12:54 Vital Signs Temperature 96.7 F L 12/01/24 12:54 Pulse Rate 72 12/01/24 12:54 Respiratory Rate 20 12/01/24 12:54 Blood Pressure 148/78 H 12/01/24 12:54 Pulse Oximetry 97 12/01/24 12:54 Oxygen Delivery Method Nasal Cannula 12/01/24 12:54 Temperature 96.7 F L 12/01/24 12:54 Pulse Rate 75 12/01/24 16:17 Respiratory Rate 22 12/01/24 16:17 Blood Pressure 118/38 L 12/01/24 16:17 Pulse Oximetry 90 12/01/24 16:02 Oxygen Delivery Method Room Air 12/01/24 15:03 Oxygen Flow Rate 2 12/01/24 13:15 Medications Administered Medications: Discontinued Medications Generic Name Dose Route Start Last Admin Trade Name Freq PRN Reason Stop Dose Admin Hydrocodone Bitart/Acetaminophen 1 tab 12/01/24 14:42 12/01/24 15:06 Hydrocodone-Acetamin 5-325 Mg 1 Tab PO 12/01/24 14:43 1 tab ONCE ONE Administration Sodium Chloride 250 mls @ 250 mls/hr 12/01/24 15:22 12/01/24 16:40 0.9 % Sodium Chloride 250 Ml IV 12/01/24 16:21 Infused .Q1H ONE Infusion Nitroglycerin 0.4 mg 12/01/24 13:02 12/01/24 13:02 Nitroglycerin 0.4 Mg Tab.Subl SUBLINGUAL 12/01/24 13:03 0.4 mg ONCE ONE Administration Nitroglycerin 0.4 mg 12/01/24 13:27 12/01/24 13:50 Nitroglycerin 0.4 Mg Tab.Subl SUBLINGUAL 12/01/24 13:28 Not Given ONCE ONE Medical Decision Making MDM Narrative Medical decision making narrative: 79-year-old female with chest pain that is reproducible on examination. Cardiac workup unremarkable. Likely represents musculoskeletal discomfort secondary to new workup regimen that was started yesterday. Medical Records Medical records reviewed: Yes I reviewed the patient's medical records Lab Data Lab results reviewed: Yes I reviewed the patient's lab results Labs: Lab Results 12/01/24 12/01/24 12/01/24 Range/Units 13:03 13:16 15:00 WBC 9.42 (4.50-11.00) K/uL RBC 3.49 L (4.00-5.20) m/uL Hgb 11.6 L (12.0-16.0) gm/dL Hct 37.8 (33.0-51.0) % MCV 108 H (80-100) fL MCH 33 (26-34) pg MCHC 31 L (32-36) gm/dL RDW Coeff of Navneet 13.1 (11.5-15.5) % Plt Count 85 L (140-440) K/uL Neut % (Auto) 71.8 (42.0-72.0) % Lymph % (Auto) 20.3 (20-44) % Carter % (Auto) 6.7 (0.0-11.0) % Eos % (Auto) 0.6 (0.0-7.0) % Baso % (Auto) 0.3 (0.0-3.0) % Neut # (Auto) 6.76 (1.7-7.0) K/uL Lymph # (Auto) 1.91 (0.90-2.90) K/uL Carter # (Auto) 0.60 (0.00-0.90) K/UL Eos # (Auto) 0.06 (0.00-0.50) K/uL Baso # (Auto) 0.03 (0.00-0.30) K/uL Abs Immat Gran (auto) 0.03 (0.00-0.30) K/uL Imm/Tot Granulo (auto) 0.3 % Sodium 139 (135-149) mmol/L Potassium 4.2 (3.6-5.1) mmol/L Chloride 107 (96-114) mmol/L Carbon Dioxide 27 (20-32) mmol/L Anion Gap 5 L (7-15) mEq/L BUN 15 (7-30) mg/dL Creatinine 0.9 (0.5-1.5) mg/dL Estimated Creat Clear 38.97 Estimated GFR 66 ml/min Glucose 104 (60-115) mg/dL Lactate 1.7 (0.5-1.9) mmol/L Calcium 9.0 (8.4-10.6) mg/dL Magnesium 2.0 (1.5-2.6) mg/dL Total Bilirubin 0.6 (0.1-1.5) mg/dL Direct Bilirubin (0.0-0.5) mg/dL AST 47 H (12-35) U/L ALT 21 (4-35) U/L Alkaline Phosphatase 86 (40-150) U/L Troponin I 0.02 (0.01-0.04) ng/mL C-Reactive Protein < 0.5 L (0.5-1.0) mg/dL NT-Pro-B Natriuret Pep 1710 H (See Note) pg/mL Total Protein 6.5 (6.0-8.3) g/dL Albumin 3.9 (3.3-5.0) g/dL Lipase 230 (23-300) U/L POC Troponin I 0.02 0.02 (0.01-0.04) ng/ml Imaging Data Chest x-ray: Attestation: I have reviewed the pertinent imaging results. Radiologist's impression: TECHNIQUE: PA and lateral COMPARISON: Chest CT of 10/26/2023 and chest x-ray of 05/04/2023 FINDINGS: Lungs low in volume with crowded markings. No obvious infiltrate. No pleural effusion. Heart size and pulmonary vasculature within normal limits, allowing for the shallow inspiration. No significant bony abnormality. IMPRESSION: Negative chest, allowing for shallow inspiration. ECG Data Attestation: I personally reviewed and interpreted this ECG as follows: Discharge Plan Discharge Clinical Impression: Chest pain, musculoskeletal Patient Disposition: Home, Self-Care Condition: Stable Additional Instructions: Your workup today did not reveal any evidence of heart attack or lung disease causing her discomfort. The discomfort is likely secondary to muscle strain. Recommend Tylenol as needed/as directed. Also recommend heating pad to the chest wall as needed. Do not apply heat directly to the skin and do not use for more than 20 minutes at a time. Recommend returning to the emergency room if your pain worsens or you develop difficulty breathing. Prescriptions: No Action prednisone 5 mg tablet 7.5 mg PO DAILY sulfasalazine 500 mg tablet 1 g PO BID Rx Instructions: give with food (meal/snack) cholecalciferol (vitamin D3) 50 mcg (2,000 unit) capsule 50 mcg PO DAILY multivitamin Tablet 1 tab PO QAM folic acid 1 mg tablet 1 mg PO QDAY ascorbic acid (vitamin C) 500 mg tablet 500 mg PO QDAY leflunomide 20 mg tablet 20 mg PO DAILY Lactobacillus acidophilus 0.5 mg (100 million cell) tablet 100 mmu cells PO DAILY diclofenac sodium [Voltaren Arthritis Pain] 1 % gel 2 g topical QID PRNQty: 100 0RF Rx Instructions: apply to single elbow, wrist or hand; for hand includes palm/fingers/back of hand ferrous sulfate 325 mg (65 mg iron) Tablet 325 mg PO DAILY Qty: 100 0RF potassium chloride 10 mEq capsule, extended release 10 meq PO DAILY Qty: 90 3RF valganciclovir 450 mg tablet 450 mg PO DAILY Qty: 90 3RF pregabalin 50 mg capsule 50 mg PO BID Qty: 180 3RF Eliquis 5 mg tablet 2.5 mg PO BID Qty: 90 0RF rosuvastatin 5 mg tablet 5 mg PO HS Qty: 90 3RF nystatin 100,000 unit/gram powder 1 applic topical BID Qty: 30 2RF hydrocodone-acetaminophen 5-325 mg tablet 1 tab PO BID PRN (Reason: pain) Qty: 60 0RF furosemide 40 mg tablet 40 mg PO DAILY Qty: 90 1RF metoprolol succinate 25 mg tablet extended release 24 hr 25 mg PO BID Qty: 180 3RF duloxetine 60 mg capsule,delayed release(DR/EC) 60 mg PO DAILY Qty: 90 1RF Follow Up/Referrals: Kyle Healy MD [Primary Care Provider, Family Practice] Stand Alone Forms: [employer] Info Instructions
[2024-12-01 13:26] LABS: Lactate* 1.7 mmol/L (0.5-1.9)
--- OUTSIDE RECORDS SUMMARY | 2024-12-01 13:26 | XMS_ITS | Data Portability ---
Author Organization [facility], [facility], INTERNAL MEDICINE Address [address] [place] [address] Assessment No assessment recorded. Plan of Treatment Reminders Order Date Submit Date Provider Last Modified By Organization Details Last Modified Time Details Appointments None recorded. Lab folate, serum 2015 016 DBA_PATCH _[id number] [facility] - [facility], [facility] Noemi Carpio, [address], [place], [address], 6 04:26:18 CBC w/ auto diff 2015 016 DBA_PATCH _[id number] [facility] - [facility], [facility] [address], [address], [place], [address], 6 04:26:18 CMP, serum or plasma 2015 016 [facility] - [facility], [facility] [address], [address], [place], [address], 6 04:26:19 TSH, serum or plasma 2015 016 [facility] ([facility]) - [facility], [address], [address], [place], [address], 6 04:26:19 vitamin D, 1,25-dihydr oxy, serum 2015 016 [facility] ([facility] - [facility], [address], [address], [place], [address], 6 04:26:19 lipid panel, serum 2015 016 [facility] ([facility] - [facility], [address] , [address], [place], [address], 6 04:26:19 Referral None recorded. Procedures None recorded. Surgeries None recorded. Imaging US, echocardiog theo 2015 016 DBA_PATCH _[id number] [facility], [address], [place], [address], 6 04:26:17 Medication Orders Remicade 100 mg intravenous solution 2015 016 [facility], [address], [place], [address], 6 04:26:16 Patient TargetsNo targets recorded. Patient Instructions Encounter Date Encounter Id Patient Instructions Last Modified By Organization Details Last Modified Time 05/14/2016 [id number] substance use disorder: care instructions [email or web address] Not available 05/15/2016 11:19:20 Reason for Referral [...] [facility] [address] [place] [address] [place] [address] [place]: Ron grider M.D. CLIA Numbe r [id number] [place]. [id number] Not Available [facility] - Main Lab (Blood Not Drawn At This Location) Visit [facility] [place], [address], 06/12/2016 18:22:56 06/11/20 16 06/12/2016 TSH, serum or plasm a TSH 3.0 uIU/m L 0.5-4. 7 Testi ng Perfo rmed At: [facility] [address] [place] [address] [place]: Shelli Mcduffie Numbe r [id number] [place] [id number] -01 Not Available [facility] - Main Lab (Blood Not Drawn At This Location) Visit [facility] [place], [address], 06/12/2016 18:22:56 06/11/20 16 06/12/2016 vitam in [...] assay . Testi ng Perfo rmed At: [employer] [facility] [address] [place] [address] [place]: Shelli Mcduffiee r [id number] [place] [id number] -01 Not Available [facility] Main Lab (Blood Not Drawn At This Location) Visit [facility] [place], [address], 06/12/2016 18:22:57 06/11/20 16 06/12/2016 CBC w/ auto diff WBC 13.0 K/uL 4.0-11 .0 high Not Available [facility] - Main Lab (Blood Not Drawn At This Location) Visit [facility] [place], [address], 06/12/2016 18:22:57 06/11/20 16 06/12/2016 CBC w/ auto diff RBC 5.15 M/uL 3.80-5 .10 high Not Available [facility] Main Lab (Blood Not Drawn At This Location) Visit [facility] [place], [address], 06/12/2016 18:22:57 06/11/20 16 06/12/2016 CBC w/ auto diff hemoglobin 15.5 g/dL 11.5-1 5.5 Not Available [facility] - Main Lab (Blood Not Drawn At This Location) Visit [facility] [place], [address], 06/12/2016 18:22:57 06/11/20 16 06/12/2016 CBC w/ auto diff hematocrit 45.5 % 34.0-4 5.0 high Not Available [facility] Main Lab (Blood Not Drawn At This Location) Visit [facility] [place], [address], 06/12/2016 18:22:57 06/11/20 16 06/12/2016 CBC w/ auto diff MCV 88.3 fL 80.0-1 00.0 Not Available [facility] - Main Lab (Blood Not Drawn At This Location) Visit [facility] [place], [address], 06/12/2016 18:22:57 06/11/20 16 06/12/2016 CBC w/ auto diff MCH 30.1 pg 27.0-3 4.0 Not Available [facility] - Main Lab (Blood Not Drawn At This Location) Visit [facility] [place], [address], 06/12/2016 18:22:57 06/11/20 16 06/12/2016 CBC w/ auto diff MCHC 34.1 g/dL 32.0-3 5.5 Not Available [facility] Main Lab (Blood Not Drawn At This Location) Visit [facility] [place], [address], 06/12/2016 18:22:57 06/11/20 16 06/12/2016 CBC w/ auto diff RDW 14.0 % 11.0-1 5.0 Not Available [facility] - Main Lab (Blood Not Drawn At This Location) Visit [facility] [place], [address], 06/12/2016 18:22:57 06/11/20 16 06/12/2016 CBC w/ auto diff neutrophils 79.3 % 40.0-7 4.0 high Not Available [facility] - Main Lab (Blood Not Drawn At This Location) Visit [facility] [place], [address], 06/12/2016 18:22:57 06/11/20 16 06/12/2016 CBC w/ auto diff lymphocytes 8.9 % 19.0-4 8.0 low Not Available [facility] - Main Lab (Blood Not Drawn At This Location) Visit [facility] [place], [address], 06/12/2016 18:22:57 06/11/20 16 06/12/2016 CBC w/ auto diff monocytes 9.9 % 4.0-13 .0 Not Available [facility] - Main Lab (Blood Not Drawn At This Location) Visit [facility] [place], [address], 06/12/2016 18:22:57 06/11/20 16 06/12/2016 CBC w/ auto diff eosinophils 1.4 % 0.0-7. 0 Not Available [facility] - Main Lab (Blood Not Drawn At This Location) Visit [facility] [place], [address], 06/12/2016 18:22:57 06/11/20 16 06/12/2016 CBC w/ auto diff basophils 0.5 % 0.0-2. 0 Not Available [facility] - Main Lab (Blood Not Drawn At This Location) Visit [facility] [place], [address], 06/12/2016 18:22:57 06/11/20 16 06/12/2016 CBC w/ auto diff platelet count 168 K/uL 130-40 0 Testi ng Perfo rmed At: [facility] [address] [place] [address] Labor [facility] Dire tor: Shelli McduffieIA Numbe r [id number] [place] [id number] -01 Not Available [facility] - Main Lab (Blood Not Drawn At This Location) Visit [facility] [place], [address], 06/12/2016 18:22:57 06/11/20 16 06/12/2016 lipid panel , serum cholesterol 243 mg/dL <200 high Not Available [facility] - Main Lab (Blood Not Drawn At This Location) Visit [facility] [place], [address], 06/12/2016 18:22:57 06/11/20 16 06/12/2016 lipid panel , serum triglyceride s 193 mg/dL <150 high Not Available [facility] - Main Lab (Blood Not Drawn At This Location) Visit [facility] [place], [address], 06/12/2016 18:22:57 06/11/20 16 06/12/2016 lipid panel , serum HDL cholesterol 60 mg/dL >39 Not Available [facility] - Main Lab (Blood Not Drawn At This Location) Visit [facility] [place], [address], 06/12/2016 18:22:57 06/11/20 16 06/12/2016 lipid panel , serum calc LDL chol 144 mg/dL <100 high Not Available [facility] - Main Lab (Blood Not Drawn At This Location) Visit [facility] [place], [address], 06/12/2016 18:22:57 06/11/20 16 06/12/2016 lipid panel , serum risk ratio LDL/HDL 2.41 ratio <3.22 Testi ng Perfo rmed At: [facility] [address] [place] [address] Labor atory Dire tor: Shelli Mcduffie [id number] [place] [id number] -01 Not Available [facility] - Main Lab (Blood Not Drawn At This Location) Visit [facility] [place], [address], 06/12/2016 18:22:57 06/11/20 16 06/12/2016 CMP, serum or plasm a glucose 109 mg/dL 70-99 high Not Available [facility] - Main Lab (Blood Not Drawn At This Location) Visit [facility] [place], [address], 06/12/2016 18:22:58 06/11/20 16 06/12/2016 CMP, serum or plasm a BUN 20 mg/dL 8-23 Not Available [facility] Main Lab (Blood Not Drawn At This Location) Visit [facility] [place], [address], 06/12/2016 18:22:58 06/11/20 16 06/12/2016 CMP, serum or plasm a creatinine 1.17 mg/dL 0.60-1 .30 Not Available [facility] - Main Lab (Blood Not Drawn At This Location) Visit [facility] [place], [address], 06/12/2016 18:22:58 06/11/20 16 06/12/2016 CMP, serum or plasm a eGFR amer. 55 mL/mi n/1.7 3 >60 low Not Available [facility] Main Lab (Blood Not Drawn At This Location) Visit [facility] [place], [address], 06/12/2016 18:22:58 06/11/20 16 06/12/2016 CMP, serum or plasm a eGFR non- amer. 48 mL/mi n/1.7 3 >60 low Not Available [facility] Main Lab (Blood Not Drawn At This Location) Visit [facility] [place], [address], 06/12/2016 18:22:58 06/11/20 16 06/12/2016 CMP, serum or plasm a calc BUN/creat 17 ratio 6-28 Not Available [facility] - Main Lab (Blood Not Drawn At This Location) Visit [facility] [place], [address], 06/12/2016 18:22:58 06/11/20 16 06/12/2016 CMP, serum or plasm a sodium 143 mEq/L 133-14 6 Not Available [facility] - Main Lab (Blood Not Drawn At This Location) Visit [facility] [place], [address], 06/12/2016 18:22:58 06/11/20 16 06/12/2016 CMP, serum or plasm a potassium 4.3 mEq/L 3.5-5. 4 Not Available [facility] - Main Lab (Blood Not Drawn At This Location) Visit [facility] [place], [address], 06/12/2016 18:22:58 06/11/20 16 06/12/2016 CMP, serum or plasm a chloride 99 mEq/L 95-107 Not Available [facility] - Main Lab (Blood Not Drawn At This Location) Visit [facility] [place], [address], 06/12/2016 18:22:58 06/11/20 16 06/12/2016 CMP, serum or plasm a carbon dioxide 25 mEq/L 18-29 Not Available [facility] - Main Lab (Blood Not Drawn At This Location) Visit [facility] [place], [address], 06/12/2016 18:22:58 06/11/20 16 06/12/2016 CMP, serum or plasm a calcium 9.2 mg/dL 8.5-10 .5 Not Available [facility] - Main Lab (Blood Not Drawn At This Location) Visit [facility] [place], [address], 06/12/2016 18:22:58 06/11/20 16 06/12/2016 CMP, serum or plasm a protein, total 6.3 g/dL 6.1-8. 3 Not Available [facility] - Main Lab (Blood Not Drawn At This Location) Visit [facility] [place], [address], 06/12/2016 18:22:58 06/11/20 16 06/12/2016 CMP, serum or plasm a albumin 4.0 g/dL 3.5-5. 2 Not Available [facility] - Main Lab (Blood Not Drawn At This Location) Visit [facility] [place], [address], 06/12/2016 18:22:58 06/11/20 16 06/12/2016 CMP, serum or plasm a calc globulin 2.3 g/dL 1.9-3. 7 Not Available [facility] - Main Lab (Blood Not Drawn At This Location) Visit [facility] [place], [address], 06/12/2016 18:22:58 06/11/20 16 06/12/2016 CMP, serum or plasm a calc A/G ratio 1.7 ratio 1.0-2. 6 Not Available [facility] - Main Lab (Blood Not Drawn At This Location) Visit [facility] [place], [address], 06/12/2016 18:22:58 06/11/20 16 06/12/2016 CMP, serum or plasm a bilirubin, total 0.7 mg/dL <=1.2 Not Available [facility] - Main Lab (Blood Not Drawn At This Location) Visit [facility] [place], [address], 06/12/2016 18:22:58 06/11/20 16 06/12/2016 CMP, serum or plasm a alkaline phosphatase 81 U/L 38-146 Not Available [facility] - Main Lab (Blood Not Drawn At This Location) Visit [facility] [place], [address], 06/12/2016 18:22:58 06/11/20 16 06/12/2016 CMP, serum or plasm a AST 44 U/L 9-40 high Not Available [facility] - Main Lab (Blood Not Drawn At This Location) Visit [facility] [place], [address], 06/12/2016 18:22:58 06/11/20 16 06/12/2016 CMP, serum or plasm a ALT 41 U/L 5-40 high Testi ng Perfo rmed At: [facility] [address] [place] [address] Labor atory Dire tor: Shelli McduffieBLAINE Hilario monica [id number] [place] [id number] -01 Not Available [facility] - Main Lab (Blood Not Drawn At This Location) Visit [facility] [place], [address], 06/12/2016 18:22:58 05/25/20 16 05/20/2016 , echo ardio gram No observ ation record ed. [email or web address] [address], [place], [address], 05/26/2016 17:55:40 06/16/20 16 XR, chest , 2 view No observ ation record ed. [facility] [address], [place], [address], 06/16/2016 15:05:56 08/05/19 17 XR, chest , 2 view No observ ation record ed. [email or web address] [facility] [address], [place], [address], 08/05/2016 14:53:38 Result Notes None recorded. Problems Name Problem SNOMED Code Status Onset Date Resolution Date Notes Provider Name and Address Organization Details Recorded Time Rheumatoid arthritis 41055190 Active Followed by Dr. Henley in [place] Esa Rachel, [address], [address], [facility], [facility]. 6 10:51:23 [facility] 26601276 [facility] 12:43:10 Alcoholism 7273205 Active 2015 sober since 2007 Esa Rachel, [address], [address], [facility], [facility]. 6 10:51:09 Diastolic heart failure 911146805 Active 2015 EF 70% Esa Rachel, [address], [address], [facility], [facility]. 6 19:25:07 Problem Notes None recorded. Procedures Surgical History Date Name Laterality Status Provider Name and Address Organization Details Recorded Time 01/27/20 16 Mammogram screening completed Luis Manuel [facility]. 05/14/2016 12:47:41 06/28/19 11 Colonoscopy and biopsy completed [facility]. 05/14/2016 12:48:03 Back Surgery, Lumbar completed [facility]. 05/13/2016 19:32:33 Cholecystectomy completed Christinajordi Underwood [facility]. 05/13/2016 19:32:38 Cataract Surgery completed [facility]. 05/14/2016 12:47:23 Tonsillectomy completed Luis Manuel Pierre [facility]. 05/14/2016 12:47:31 Imaging Results None recorded. Procedure Notes None recorded. Medical Equipment None Reported. Allergies Allergen ID Allergen Name Allergen Category Reaction Reaction Severity Criticality Documentation Date Start Date Code Code System Note Provider Name and Address Organization Details Recorded Time 7963 Non-stero idal anti-infl ammatory agent (product) medicatio n Not available Not available Not available 05/13/2016 15197 005 SNOMED Christina Underwood [facility], [facility]. 6 19:31:42 Medications Name Sig Start Date [...] Body height Body mass index (BMI) Systolic blood pressure Diastolic blood pressure Provider Name and Address Organization Details Last Updated DateTime 6 74 /min 18 /min 934861. 25 g 162.56 cm 39.5 kg/m2 128 mm[Hg] 90 mm[Hg] Marcia Sykes [facility]. 6 12:41:18 Date Recorded Body height Heart rate Respiratory rate Body weight Body mass index (BMI) Systolic blood pressure Diastolic blood pressure Provider Name and Address Organization Details Last Updated DateTime 6 162.56 cm 78 /min 18 /min 556296. 61 g 40.2 kg/m2 130 mm[Hg] 84 mm[Hg] [facility]. 6 10:47:34 Date Recorded Body height Heart rate Respiratory rate Body weight Body mass index (BMI) Systolic blood pressure Diastolic blood pressure Provider Name and Address Organization Details Last Updated DateTime 6 162.56 cm 68 /min 18 /min 774298. 25 g 39.5 kg/m2 128 mm[Hg] 86 mm[Hg] Viviane [facility]. 6 15:13:21 Social History Question Answer Notes LastModified by [employer] Details LastModified Time Tobacco Smoking Status Never Smoker [facility] 05/13/2016 19:32:21 Which Illicit Or Recreational Drugs Have You Used? None Information not available 05/13/2016 How Much Tobacco Do You Smoke? No Information not available 05/15/2016 How Many Years Have You Smoked Tobacco? 0 Information not available 05/15/2016 Sex: Unknown Functional Status Question Answer Note LastModified by [employer] Details LastModified Time What is your level of alcohol consumption? 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 Family History Relationship Description Onset Age of this Age Resolved Age Notes LastModified by Organization Details LastModified Time Mother Heart disease Not available 2015 19:32:15 Mother Malignant tumor of breast Not available 05/14 12:49:17 Father Malignant neoplasm of prostate [email or web address] Not available 05/14 12:49:30 Medical History No medical history recorded. Gynecological HistoryNo gynecological history recorded. Obstetrics History GPAL:G 0 P 0 0 0 0 Immunizations Vaccine Type Date Status Note Provider Nam e and Address Organization Details Recorded Time Influenza, split virus, quadrivalent, preservative 6 completed Luis Manuel moss, [facility], [facility]. 05/14/2016 12:49:44 Pneumococcal conjugate PCV 13 6 completed Luis Manuel moss, [facility], [facility]. 05/14/2016 12:49:57 pneumococcal polysaccharide PPV23 5 completed Luis Manuelryland moss, [facility], [facility]. 05/14/2016 12:50:21 Tdap 2 completed Luis Manuel moss, [facility], [facility]. 05/14/2016 12:51:27 Past Encounters Encounter ID Performer Location Encounter Start Date Encounter Closed Date Diagnosis/Indication Diagnosis SNOMED-CT Code Diagnosis ICD10 Code Diagnosis Note [id number] Esa Rachel DO [facility] [address] [place] [address] 05/14/2016 12:27:14 05/14/2016 13:08:02 Rheumatoid arthritis 51725843 M06.9 I rewrote the prescripti on with the same directions as Dr. Henley and faxed original and mine to hospital. Essential hypertension 42073361 I10 Echo ordered, I am unclear why she is on lasix. OK to take as needed. Alcoholism 3542972 F10.2 0 In remission. [id number] RADHA Dave [facility] [address] [place] [address] 06/11/2016 10:31:34 06/11/2016 11:25:29 Diastolic heart failure 969805649 I50.30 Recent ECHO--appe ars to be stable with Lasix daily. Rheumatoid arthritis 698 [address]5700 M06.9 Followed by Rheumatolo gy Dyspnea on exertion 6084 5006 R06.09 Labs today Could be poss. side effect of Remicade. Alcoholism 0439424 F10.2 0 Sober since 2007 [id number] RADHA Dave [facility] [address] [place] [address] 06/25/2016 14:47:51 06/25/2016 15:57:24 Pneumonia 941752385 J18.9 Improving. Finish out antibiotic s. Going [...] Member ID Guarantor Name 05/14/2016 2 MUTUAL AME James [id number] Tanner James 05/14/2016 1 [place] Tanner James [id number] Tanner James 06/11/2016 2 MUTUAL OF [employer]ILIO James [id number] Tanner James 06/11/2016 1 [place] Tanner James [id number] Tanner James 06/25/2016 2 [employer] James [id number] Tanner James 06/25/2016 1 [place] Tanner James [id number] Tanner James Notes Date Note Type Note Provider Name and Address Organization Details Recorded Time 05/14/2016 text/html Lives in [facility] for 6 months then [place] for 6 months, Primary Doctor in [place] is Dr. Olguin. Her teaseler has been prescribing her infusions while in [place]. 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 Unfortunately, I was unaware of the recurrent infusion and it was only when they asked for an updated prescription did it come to light. She is here to establish with local physician and have physician with [facility] oversee her infusions. RA- Has been DX [...] lasix nothing happens. Esa Rachel, DO [address] [facility], [place], [address], [place] [facility], [facility]. 05/15/2016 11:04:00 06/11/2016 text/html Lives in [facility] for 6 months then [place] for 6 months, Primary Doctor in [place] is Dr. Olguin. RA- Has been DX [...] Trace edema with daily Lasix. Julia moss, [facility], [facility]. 06/11/2016 11:22:59 06/25/2016 text/html Er F/U- Had pneumonia, is feeling better. SOB is better but still is getting winded easily. Fatigue persists. She still has 3 days of Doxycycline left. No fever. Julia moss, [facility], [facility]. 06/29/2016 16:44:54 OBGyn Episode No OBEpisode recorded.
--- OUTSIDE RECORDS SUMMARY | 2024-12-01 13:26 | XMS_ITS | Encounter Summary ---
Author Organization [facility] Address [address] [place] [address] Care Team Providers Care Kitchen Manager Name Role Phone Basilio Healy MD Primary Care Provider [phone] Reason for Visit * Reason Comments Refill Encounter Details Date Type Department Care Team (Late st Contact Info) Description 02/06/2016 Refill Rheumatology at [address] [place], [place] [id number] Swapnil Henley MD Refill Social History Tobacco Use Types Packs/Day Years Used Date Smoking Tobacco: Never Assessed Comments No Sex and Gender Information Value Date Recorded Sex Assigned at Not on file Legal Sex Female 6:13 AM CDT Gender Identity Not on file Sexual Orientation Not on file documented as of this encounter Plan of Treatment Upcoming Encounters Date Type Department Care Team ([facility] Contact Info) Description 01/15/2025 2:00 PM CDT Appointment Rheumatology at [address] [address] Man Sánchez MD [address] [place] [phone] documented as of this encounter Visit Diagnoses Not on filedocumented in this encounter Care Teams Kitchen Manager Relationship Specialty Start Date End Date Basilio Healy MD [facility] [address] [place] [address] PCP - General Family Practice 10/28/22 documented as of this encounter
--- OUTSIDE RECORDS SUMMARY | 2024-12-01 13:26 | XMS_ITS | Clinical Summary ---
Author Organization [facility] Address [address] [place] [address] Care Team Providers Care Sweatband Separator Name Role Phone Basilio Healy MD Primary Care Provider [phone] Source Comments You are receiving this document as you are listed as the primary care provider,follow-up provider, or the patient has been referred to you for consultation.This is in compliance with the Medicare and[facility] EHR Incentive Program,which states Providers who transition their patient to another setting of careor provider of care or refers their patient to another provider of care shouldprovide summary care record for each transition of care or referral. [facility] Allergies Active Allergy Reactions Criticality Noted Date Comments Levofloxacin Other, see comments 02/02/2022 Muscles snapped Nsaids Other, see comments High 03/18/2011 HUT Reaction: GI Bleeding; HUT Severity: High; HUT Noted: [id number] Terbinafine Muscle Aches/Weakness 02/02/2022 Medications Cholecalciferol 2000 [...] Patient receives drug assistance for Enbrel from [employer]. 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 Patient discontinued 05/2012. 12/20/2012 start venlafaxine 37.5mg Osteopenia 12/07/2011 Overview (04/28/2019): Historian [employer] wants patient to be on alendronate indefinitely [...] Overview (04/28/2019): HGB 9.6 ON ADMIT TO [facility] 03/2009; ENDOSCOPY REVEALED SHALLOW GASTRIC [...] 10:30 AM CDT Office Visit Rheumatology at [facility] [address] [address] Man Sánchez MD Rheumatoid arthritis involving multiple [...] IIV3 (Trivalent) F luzone Highdose, 65+ Yrs (51149) 04/25/2019,03/09/2016,03/30/2014 Influenza IIV4 (Quadrivalent ) 0.5mL (94264) 04/23/2021,04/25/2019,04/19/2018,2015,03/30/2014,04/03/2013,04/15/2012,1 06/30/2009,04/15/2009,04/10/2003 Influenza IIV4 (Quadrivalent ) Fluzone, [...] 01/15/2025 2:00 PM CDT Appointment Rheumatology at [facility] [address] [address] [place], [place] [id number] Man Sánchez MD [facility] [place], [place] [id number] Health Maintenance Due Date Last Done Comments [...] RESULT Final Resu lt Performing Organization Address [facility] de Phone Number PN EXTERNAL LAB-SEE SCANNED DOCUMENT Do Not Mail * (ABNORMAL) Platelet Count (Ext Rslt) (09/05/2024) Pathologist [facility] EXT RSLT - PLATELET COUNT 90(L) 140 - 440 K/uL PN EXTERNAL LAB-SEE SCANNED DOCUMENT 09/05/2024 Physician Unknown LAB EXTERNAL RESULT Final Resu lt Performing Organization Address [facility] de Phone Number PN EXTERNAL LAB-SEE SCANNED DOCUMENT Do Not Mail * ALT (Ext Rslt) (09/05/2024) Pathologist [facility] EXT RSLT - ALT 18 4 - 35 U/L PN E XTERNAL LAB-SEE SCANNED DOCUMENT 09/05/2024 Physician Unknown LAB EXTERNAL RESULT Final Resu Performing Organization Address [facility] de Phone Number PN EXTERNAL LAB-SEE SCANNED DOCUMENT Do Not Mail * DXA Bone Density Spine[employer] Vert FX Assess (10/07/2022 3:48 PM CDT) [facility] DXA Hip Left Bone Mineral Density [...] not included. Patient Name: Tanner James Densitometer: Langtice W Appt Dept/Resource: Granda Bone Density GRANDA [...] trabecular bone, and is derived from the [id number] changes of bone density embedded in the [...] Performed by Real Time PCR CLIA Number [id number] HCV Quant iu/ml <12 IU/ml HP CONVERSION Comment:CLIA Number [id number] HCV Quant Log iu/ml <1.08 Log IU/ml HP CONVERSION Comment: Performed at [facility], [address] [address] [place] Number [id number] 12/12/2015 11:4 4 AM CDT 12/12/2015 3:01 PM CDT Swapnil Henley MD LAB_1 Final Result HP CONVERSION from Last 3 Months or Most Recently Relevant to Health Maintenance Insurance MEDICARE [place] Advance Directives Documents on File Type Date Recorded Patient Internal Controls Manager Expl anation POLST 02/02/2017 01/05/2017 Care Teams Sweatband Separator Relationship Specialty Start Date End Date Basilio Healy MD [facility] [address] [place] [address] PCP - General Family Practice 10/28/22
--- OUTSIDE RECORDS SUMMARY | 2024-12-01 13:26 | XMS_ITS ---
Author Organization [facility] Care Team Providers Care Medical Technologist Clinical Name Role Phone Nancy Myers Unavailable Unavailable Luci Meza Unavailable Unavailable Juaquin Jones Unavailable Unavailable Allergies and adverse reactions Code CodeSystem Substance Reaction Severity StartDate Concern Status 73322 RXNORM Terbinafine Moderate 10/25/[address] NSAIDs Severe 07/01/2023 active 00969 RXNORM levoFLOXacin Moderate 07/01/2023 active 71273 RXNORM LamISIL Mild 07/01/2023 active Care Team Name Role Address Phone Organization Dates Juaquin Jones PCP [address], [address], [place], [address], [place] (Office): [facility] 10/29/2023 - 11/25/2023 Nancy Myers [facility] 10/29/2023 - 11/25/2023 Luci Meza [facility] [address], [place], [address], [place] (Office): : [facility] 10/29/2023 - 11/25/2023 Immunizations Immunization Status Vaccine Details Vaccine Code CodeSystem Date Notes TB 2 Step Mantoux Skin Test completed tuberculin skin test; unspecified formulation lotNumber: [id number] expiry: 10/25/2026 Mfg: Sanofi Given 0.1 ml Right Forearm intradermally Step 2 of Multi-step with next step required 98 CVX created date: 11/12/2023 consent date: 11/12/2023 administer ed date: 11/12/2023 Educated by on 05/08/2024 TB 2 Step Mantoux Skin Test completed tuberculin skin test; unspecified formulation lotNumber: [id number] expiry: 10/25/2026 Mfg: Sanofi [employer] Given 0.1 ml Left Forearm intradermally Step 1 of Multi-step with next step required 98 CVX created date: 10/30/2023 consent date: 10/29/2023 administer ed date: 10/29/2023 TB 2 Step Mantoux Skin Test completed tuberculin skin test; unspecified formulation lotNumber: [id number] expiry: 09/26/2026 Mfg: Sanofi Given 0.1 ml Left Forearm intradermally Step 1 of Multi-step with next step required 98 CVX created date: 10/25/2023 consent date: 10/25/2023 administer ed date: 10/14/2023 Educated by esthela rojas on 05/08/2024 TB 2 Step Mantoux Skin Test completed tuberculin skin test; unspecified formulation lotNumber: [id number] expiry: 07/28/2023 Mfg: tubersol Given 0.1 ml Left Forearm subcutaneously Step 1 of Multi-step with next step required 98 CVX created date: 07/01/2023 consent date: 07/01/2023 administer ed date: 07/01/2023 Educated by Shonda Badillo on 05/08/2024 TDAP completed tetanus toxoid, reduced diphtheria toxoid, and acellular pertussis vaccine, adsorbed 115 CVX created date: 07/01/2023 administer ed date: 12/23/2020 TDAP completed tetanus toxoid, reduced diphtheria toxoid, and acellular pertussis vaccine, adsorbed 115 CVX created date: 07/01/2023 consent date: 07/01/2023 administer ed date: 05/28/2012 PPSV23, Pneumovax 23 completed pneumococcal polysaccharide vaccine, 23 valent 33 CVX created date: 07/01/2023 administer ed date: 03/09/2016 PPSV23, Pneumovax 23 completed pneumococcal polysaccharide vaccine, 23 valent 33 CVX created date: 07/01/2023 administer ed date: 04/30/2010 PCV13, [id number] completed pneumococcal conjugate vaccine, 13 valent 133 CVX created date: 07/01/2023 administer ed date: 01/31/2015 Typhoid Vaccination completed typhoid Vi capsular polysaccharide vaccine 101 CVX created date: 07/01/2023 administer ed date: 03/07/2004 Influenza-High Dose completed Influenza, high-dose, split virus, quadrivalent, injectable, preservative free 197 CVX created date: 07/01/2023 administer ed date: 04/15/2023 Hepatitis A completed hepatitis A vaccine, adult dosage 52 CVX created date: 07/01/2023 administer ed date: 10/20/2004 Hepatitis A completed hepatitis A vaccine, adult dosage 52 CVX created date: 07/01/2023 administer ed date: 03/07/2004 Td completed tetanus and diphtheria toxoids, adsorbed, preservative free, for adult use, Lf unspecified 196 CVX created date: 07/01/2023 administer ed date: 03/15/2003 Polio (inactive) completed poliovirus vaccine, inactivated 10 CVX created date: 07/01/2023 administer ed date: 03/07/2004 COVID-19 Vaccine dose 1 completed SARS-COV-2 (COVID-19) vaccine, mRNA, spike protein, LNP, preservative free, 30 mcg/0.3mL dose Mfg: Pfizer 208 CVX created date: 07/01/2023 administer ed date: 08/20/2020 COVID-19 Vaccine dose 2 completed SARS-COV-2 (COVID-19) vaccine, mRNA, spike protein, LNP, preservative free, 30 mcg/0.3mL dose Mfg: [employer] 208 CVX created date: 07/01/2023 administer ed date: 09/10/2020 COVID-19 Vaccine dose 3 completed unknown vaccine or immune globulin Mfg: [employer] 999 CVX created date: 07/01/2023 administer ed date: 05/02/2021 COVID-19 Vaccine dose 4 completed SARS-COV-2 (COVID-19) vaccine, mRNA, spike protein, LNP, preservative free, 30 mcg/0.3mL dose Mfg: [employer] 208 CVX created date: 07/01/2023 administer ed date: 03/24/2022 PCV20, Prevnar 20 cancelled Pneumococcal conjugate vaccine 20-valent (PCV20), polysaccharide [id number] conjugate, adjuvant, preservative free 216 CVX created date: 11/16/2023 consent date: 11/16/2023 RSV (respiratory syncytial virus)Vaccine cancelled Respiratory syncytial virus (RSV), vaccine, bivalent, protein subunit RSV prefusion F, diluent reconstituted, 0.5 mL, preservative free 305 CVX created date: 11/16/2023 consent date: 11/16/2023 COVID-19 Vaccine Booster dose 8 cancelled SARS-COV-2 (COVID-19) vaccine, mRNA, spike protein, LNP, preservative free, 50 mcg/0.5 mL dose 312 CVX created date: 11/16/2023 consent date: 11/16/2023 Mental Status Section Date Assessment Total Score Description 11/25/2023 BIMS 15 cognitively int act CAM 0 No delirium ind icated PHQ-9 00 11/04/2023 BIMS 15 cognitively int act PHQ-9 05 mild depression Problems Problem # Description Date of onset Resolved Date Code CodeSystem Concern Status 1 OTHER CYTOMEGALOVIRAL DISEASES 11/02/[address] active 2 BRONCHIECTASIS, UNCOMPLICATED 10/29/[address] active 3 DEPRESSION, UNSPECIFIED 10/29/[address] active 4 OTHER CHRONIC PAIN 10/29/[address] active 5 OTHER SYMPTOMS AND SIGNS INVOLVING COGNITIVE FUNCTIONS AND AWARENESS 10/29/[address] active 6 PNEUMONIA, UNSPECIFIED ORGANISM 10/29/[address] active 7 ALCOHOL USE, UNSPECIFIED, UNCOMPLICATED 10/25/[address] active 8 CHRONIC KIDNEY DISEASE, STAGE 3A 10/25/[address] active 9 IMMUNODEFICIENCY DUE TO DRUGS 10/25/[address] active 10 KLEBSIELLA PNEUMONIAE [K. 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 10/25/[address] active 15 PERSONAL HISTORY OF URINARY CALCULI 10/25/[address] active 16 URINARY TRACT INFECTION, SITE NOT SPECIFIED 10/25/[address] active 17 OTHER SPECIFIED PERSONAL RISK FACTORS, NOT ELSEWHERE CLASSIFIED 07/07/1907/14/[address] completed 18 PAROXYSMAL ATRIAL FIBRILLATION 07/05/[address] active 19 ACQUIRED ABSENCE OF KIDNEY 07/01/[address] active 20 ACUTE POSTHEMORRHAGIC ANEMIA 07/01/19 24 07/14/[address] completed 21 ANXIETY DISORDER, UNSPECIFIED 07/01/[address] active 22 ATHEROSCLEROTIC HEART DISEASE OF [place] CORONARY ARTERY WITHOUT ANGINA PECTORIS 07/01/[address] active 23 CHRONIC DIASTOLIC (CONGESTIVE) HEART FAILURE 07/01/[address] active 24 CHRONIC KIDNEY DISEASE, STAGE 3 UNSPECIFIED 07/01/19 24 07/14/[address] completed 25 CHRONIC OBSTRUCTIVE PULMONARY DISEASE, UNSPECIFIED 07/01/[address] active 26 CONSTIPATION, UNSPECIFIED 07/01/[address] active 27 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[place] 07/01/[address] active 28 ENCOUNTER FOR CHANGE OR REMOVAL OF SURGICAL WOUND DRESSING 07/01/19 07/14/[address] completed 29 ENCOUNTER FOR SURGICAL AFTERCARE FOLLOWING SURGERY ON THE CIRCULATORY SYSTEM 07/01/19 24 07/14/[address] completed 30 ESSENTIAL (PRIMARY) HYPERTENSION 07/01/[address] active 31 FIBROMYALGIA 07/01/[address] active 32 NONRHEUMATIC AORTIC (VALVE) STENOSIS 07/01/[address] active 33 OBESITY, UNSPECIFIED 07/01/[address] active 34 OTHER PANCYTOPENIA 07/01/[address] active 35 OTHER PRIMARY THROMBOPHILIA 07/01/[address] active 36 OTHER RHEUMATOID ARTHRITIS WITH RHEUMATOID FACTOR OF MULTIPLE SITES 07/01/[address] active 37 PERSONAL HISTORY OF PULMONARY EMBOLISM 07/01/[address] active 38 POLYOSTEOARTHRITIS, UNSPECIFIED 07/01/[address] active 39 PRESENCE OF PROSTHETIC HEART VALVE 07/01/[address] active 40 RETROPERITONEAL HEMATOMA 07/01/19 24 07/14/[address] completed 41 SPINAL STENOSIS, LUMBAR REGION WITHOUT NEUROGENIC CLAUDICATION 07/01/[address] active Reason for Referral No Reasons for Referral Entered Social History Social History Observation Description Start Date End Date Code Code System Current Smoking Status Tobacco smoking consumption unknown 193394892 SNOMED CT Sex Assigned At Female 1945 6[address]00-3 [facility] Gender Identity Vital Signs Code Code System Vitals Name Values and Units Timing Information 64967-2 [facility] Pain Level Value=5.0 11/25/2023 9279-1 INC Respiratory Rate Value=18.0 Units=/m in 11/25/2023 8462-4 [facility] Blood Pressure-Diastolic Value=75 Un its=mmHg 11/25/2023 8480-6 LOINC Blood Pressure-Systolic Dopvw=033 Un its=mmHg 11/25/2023 8310-5 LOINC Body Temperature Value=97.9 Units= F 11/25/2023 8867-4 LOINC Heart rate Value=76.0 Units=/min 91355-2 [facility] O2 % BldC Oximetry Value=98.0 Units= % 11/25/2023 51825-8 [facility] Weight Yaufo=232.0 Units=Lbs 8302-2 [facility] Height Value=63.0 Units=Inches 11/10/2023
[2024-12-01 13:27] LABS: Basophils Absolute Auto 0.03 K/uL (0.00-0.30); Basophils Percent Auto 0.3 % (0.0-3.0); Eosinophils Absolute Auto 0.06 K/uL (0.00-0.50); Eosinophils Percent Auto 0.6 % (0.0-7.0); Hematocrit 37.8 % (33.0-51.0); Hemoglobin* 11.6 gm/dL (12.0-16.0); Immature Granulocytes Abs Auto 0.03 K/uL (0.00-0.30); Immature Granulocytes Pct Auto 0.3 %; Lymphocytes Absolute Auto 1.91 K/uL (0.90-2.90); Lymphocytes Percent Auto 20.3 % (20-44); Mean Corpuscular HGB Conc 31 gm/dL (32-36); Mean Corpuscular Hemoglobin 33 pg (26-34); Mean Corpuscular Volume 108 fL (80-100); Monocytes Percent Auto 6.7 % (0.0-11.0); Neutrophils Absolute Auto 6.76 K/uL (1.7-7.0); Neutrophils Percent Auto 71.8 % (42.0-72.0); Platelet Count* 85 K/uL (140-440); RDW Coefficient of Variation % 13.1 % (11.5-15.5); Red Blood Count 3.49 m/uL (4.00-5.20); White Blood Count* 9.42 K/uL (4.50-11.00)
--- OUTSIDE RECORDS SUMMARY | 2024-12-01 13:27 | XMS_ITS | Clinical Summary ---
Author Organization awe.sm [facility] s & [facility] Address [address] [place] [address] Care Team Providers Care Training Associate Name Role Phone Swapnil Henley MD Unavailable Unavailable Marlys Woodruff William RD Unavailable [phone] Funmi Medina Unavailable [phone] Kyle Healy MD Primary Care Provider [facility] [place] Unavailable Allergies Active Allergy Reactions Criticality Noted [...] into both eyes two times daily. 01/29/20 Active guaiFENesin 100 mg/5 mL liquid Take 10 mL (200 mg) by mouth every 4 hours if needed for Expectoration. 03/15/20 Active apixaban (ELIQUIS) 2.5 mg tabletIndications:p ulmonary thromboembolism Take 1 Tablet (2.5 mg) by mouth two times daily. 60 Tablet 03/23/20 Active DULoxetine (CYMBALTA) 60 mg Delayed-release capsuleIndications: Chronic pain syndrome Take 1 Capsule (60 mg) by mouth once daily. 30 Capsule 03/23/20 24 Active furosemide (LASIX) 40 mg tabletIndications:H eart failure with preserved ejection fraction, unspecified HF chronicity (HC) [The details of the medication are not available because there are pending changes by a home health clinician.] 60 Tablet 03/23/20 24 Active Additional Information Patient taking differently:40 mg OralDAILY, Reported on 10/24/2024 metoprolol succinate (TOPROL XL) 25 mg Sustained-Release tabletIndications:N onrheumatic aortic (valve) stenosis Take 1 Tablet (25 mg) by mouth two times daily. 60 Tablet 03/23/20 24 Active potassium chloride (MICRO-K) 10 mEq Controlled-release capsuleIndications: Hypokalemia Take 1 Capsule (10 mEq) by mouth once daily. 30 Capsule 03/23/20 24 Active predniSONE (DELTASONE) 5 mg tabletIndications:R heumatoid arthritis involving multiple sites with positive rheumatoid factor (HC) [The details of the medication are not available because there are pending changes by a home health clinician.] 45 Tablet 03/23/20 24 Active Additional Information Patient taking differently: 5 mgOral Q AM, Reported on 10/24/2024 rosuvastatin (CRESTOR) 5 mg tabletIndications:D yslipidemia Take 1 Tablet (5 mg) by mouth at bedtime. 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 120 Tablet 03/23/20 24 Active valGANciclovir (VALCYTE) 450 mg tabletIndications:I mmunodeficiency due to drugs (HC) Take 1 Tablet (450 mg) by mouth once daily. 30 Tablet 03/23/20 24 Active pregabalin (LYRICA) 50 mg capsuleIndications: Chronic pain syndrome Take 1 Capsule (50 mg) by mouth two times daily. 60 Capsule 03/23/20 24 Active pregabalin (LYRICA) 50 mg capsuleIndications: Chronic pain syndrome TAKE 1 CAPSULE BY MOUTH TWICE DAILY 30 Capsule 5 03/30/20 24 Active folic acid 1 mg tablet Take 1 mg by mouth once daily. Take 1 tablet by mouth daily Active leflunomide 20 mg tablet Take 20 mg by mouth once daily. Take 1 tablet by mouth daily Active HYDROcodone-acetami nophen (5-325 mg/tablet) Take 1 Tablet by mouth 2 times daily if needed for Pain. Take 1 tablet by mouth twice daily as needed for pain Active cephalexin 500 mg capsule Take 500 mg by mouth every 6 hours. Active Active Problems Problem Noted Date Diagnosed Date Thrombocytopenia 02/21/2024 Overview (02/21/2024): 02/21/2024 PLT: 79 02/18/2024 PLT: 55 Wounds, multiple 02/20/2024 Gram negative septicemia 02/19/2024 Severe sepsis 02/18/2024 Possible UTI (urinary tract infection) 4 Chronic heart failure with p reserved ejection fraction (HFpEF) 02/18/2024 EMELI (acute kidney injury) 02/18/2024 History of pulmonary embolism 02/18/2024 Pseudoaneurysm of femoral artery following proce dure 06/29/2023 Retroperitoneal hematoma 06/21/2023 Acute blood loss anemia 06/21/2023 Acute respiratory failure with hypoxia 3 Morbid (severe) obesity due to excess calories [...] annual mammogram; 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 Patient discontinued 05/2012. 12/20/2012 start venlafaxine 37.5mg Osteopenia 12/07/2011 05/05/2023 Overview (10/10/2018): Flight Operations Coordinator wants patient to be on alendronate indefinitely [...] Overview (11/13/2009): HGB 9.6 ON ADMIT TO [facility] 03/2009; ENDOSCOPY REVEALED SHALLOW GASTRIC [...] Encounters Date Type Department Care Team Description 11/30/2024 3:15 PM CDT Home Care Visit [facility]ly [facility] [address] [facility] [place] [address] Latosha Dimas, PT PT - HOME VISIT 11/27/2024 3:15 PM CDT Home Care Visit [facility]ly [facility] [address] [facility] [place] [address] Latosha Dimas, PT PT - HOME VISIT 11/26/2024 Home Care Visit [facility] [address] [facility] [place] [address] Latosha Dimas, PT CARE COORDINATION 11/23/2024 3:15 PM CDT Home Care Visit [facility] [address] [facility] [place] [address] Latosha Dimas, PT PT - HOME VISIT 11/21/2024 Home Care Visit [facility] [address] [facility] [place] [address] Latosha Dimas, PT CARE TRANSITION NOTE 11/17/2024 1:15 PM CDT Home Care Visit [facility] [address] [facility] [place] [address] Miguelina Guzman ANGEL OT - HOME VISIT 11/16/2024 3:15 PM CDT Home Care Visit [facility] [address] [facility] [place] [address] Latosha Dimas, PT PT - REASSESSMENT 11/14/2024 1:30 PM CDT Home Care Visit [facility] [address] [facility] [place] [address] Miguelina Guzman ANGEL OT - HOME VISIT 11/13/2024 3:15 PM CDT Home Care Visit [facility] [address] [facility] [place] [address] Latosha Dimas, PT PT - HOME VISIT 11/13/2024 Home Care Visit [facility] [address] [facility] [place] [address] Latosha Dimas, PT CARE COORDINATION 11/09/2024 3:15 PM CDT Home Care Visit [facility] [address] [facility] [place] [address] Latosha Dimas, PT PT - HOME VISIT 11/09/2024 1:30 PM CDT Home Care Visit [facility] [address] [facility] [place] [address] Miguelina Guzman ANGEL OT - HOME VISIT 11/06/2024 3:15 PM CDT Home Care Visit [facility] [address] [facility] [place] [address] Latosha Dimas, PT PT - HOME VISIT 11/06/2024 Home Care Visit [facility] [address] [place] [phone] Latosha Dimas, PT CARE COORDINATION 11/02/2024 3:15 PM CDT Home Care Visit [facility] [address] [place] [phone] Latosha Dimas, PT PT - HOME VISIT 10/31/2024 Orders Only [facility] [address] [place] [address] Renae Pruett NP <No scans attached> 10/30/2024 3:15 PM CDT Home Care Visit [facility] [address] [place] [phone] Latosha Dimas, PT PT - HOME VISIT 10/30/2024 10:45 AM CDT Home Care Visit [facility] [address] [place] [phone] Antelmo Del Castillo, OT OT - INITIAL ASSESSMENT 10/30/2024 Home Care Visit [facility] [address] [place] [phone] Latosha Dimas, PT CARE COORDINATION 10/30/2024 Travel 10/26/2024 10:45 AM CDT Home Care Visit [facility] [address] [place] [phone] Latosha Dimas, PT PT - HOME VISIT 10/24/2024 9:30 AM CDT Home Care Visit [facility] [address] [place] [phone] Francheska Cooley RN SN - [id number] ASSESSMENT 10/24/2024 Orders Only [address] [address] Milvia Almeida MD <No scans attached> 10/23/2024 1:00 PM CDT Home Care Visit [facility] [address] [place] [phone] Latosha Dimas, PT PT - HOME VISIT 10/23/2024 Home Care Visit [facility] [address] [place] [address], [place] [address] Latosha Dimas, PT CARE COORDINATION 10/23/2024 Home Care Visit [facility] [address] [place] [address], [place] [address] Shara Wesley, RN CARE COORDINATION 10/20/2024 Home Care Visit [facility] [address] [place] [address], [place] [address] José Miguel Bentley, PT CARE COORDINATION 10/20/2024 Home Care Visit [facility] [address] [place] [address], [place] [address] José Miguel Bentley, PT CARE COORDINATION 10/19/2024 9:30 AM CDT Home Care Visit [facility] [address] [place] [address], [place] [address] José Miguel Bentley, PT PT - OASIS START OF CARE 10/19/2024 Plan of Care Documentation Formerly [facility] [address] [place] [address], [place] [address] 10/13/2024 Transcribe Orders [address] [place] [address] Kyle Healy MD 10/06/2024 Nurse Triage [address] [address] Kyle Healy MD Home Care (See Note. 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 Gender Identity Not on file Sexual Orientation Not on file Obstetrics History Last Filed Vital Signs Vital Sign Reading Time Taken Comments Blood Pressure 144/89 11/30/2024 3:18 PM CDT Pulse 78 11/30/2024 3:18 PM CDT Temperature 36.3 C (97.4 F) 11/30/2024 3:18 PM CDT Respiratory Rate 16 11/30/2024 3:18 PM CDT Oxygen Saturation 98% 11/30/2024 3:18 PM CDT Inhaled Oxygen Concentration - - Weight 112.5 kg (248 lb) 10/24/2024 9:52 AM CDT stated Height 160 cm (5' 3) 02/18/2024 7:45 AM CDT Body Mass Index 43.93 02/18/2024 7:45 AM CDT Plan of Treatment Upcoming Encounters Date Type Department Care Team (Late st Contact Info) Description 12/01/2024 2:45 PM CDT Home Care Visit [place] [id number] [place] [phone] Antelmo Del Castillo, OT [address] [place] [address] 12/04/2024 3:15 PM CDT Home Care Visit [place] [address] [place] [phone] Latosha Dimas, PT [address] [place] [address] 12/07/2024 3:15 PM CDT Home Care Visit [facility] [address] [place] [address] Latosha Dimas, PT [address] [place] [address] 12/11/2024 3:00 AM CDT Home Care Visit [place] [address] [place] [address] Latosha Dimas, PT [address] [place] [address] 12/15/2024 3:00 AM CDT Home Care Visit [facility] [address] [place] [address] VasiliyLatosha martin, PT [address] [place] [address] Health Maintenance Due Date Last Done Comments [...] this topic Medical Devices Implanted Type Area Acid Correction Hand Device Identifier Shelf Expiration Date Model / Serial / Lot Screw Tsrh Og Thin 6.5x50mm - [id number] Implanted:Qty: 3 on 04/28/2010 at [facility] N/A: Spine SOFAM[employer] DANEK [id number]# / / Screw Locking 4x20mm Fine Tip Titnm - [id number] Implanted:Qty: 4 on 04/28/2010 at [facility] CaseRev 04802.211 # / / Screw Thin Crest 6.5x45mm - [id number] Implanted:Qty: 1 on 04/28/2010 at [facility] [id number]# / / Set Screw 3dx - [id number] Implanted:Qty: 4 on 04/28/2010 at [facility] [id number]# / / Cnnctr Tsrh 3dx Sm - [id number] Implanted:Qty: 4 on 04/28/2010 at [facility] Medtronic [id number]# / / Rios 3.5cmx5.5mm Pre-Cut - [id number] Implanted:Qty: 2 on 04/28/2010 at [facility] [id number]# / / Kit Infuse Md - [id number] Implanted:Qty: 1 on 04/28/2010 at [facility] 10/26/2012 [id number]# / / [id number] Filler Bio [id number] 5 - [id number] Implanted:Qty: 1 on 04/28/2010 at [facility] [id number]# / / [id number] Synfix Lr 26mm Implanted:Qty: 1 on 04/28/2010 at [facility] Spine CaseRev 08.802.017 S / / [id number] Description:SYNFIX LR 26MM Procedures Procedure Name Priority [...] bone density measurements were obtained using the [employer] bone densitometry system. COMPARISON: None. FINDINGS: SPINE: [...] bone density measurements were obtained using the [employer] bone densitometry system. COMPARISON: None. FINDINGS: SPINE: [...] Most Recently Relevant to Health Maintenance Insurance [employer] [place] MEDICARE PART B HB ONLY MEDICARE PB ONLY MEDICARE PART A HB ONLY MEDICARE PROVIDER BASED [employer] [place] [address] [employer] [place] Member Subscriber Plan / Payer (Ef fective 2016-Present) Name:Tanner James Relation to Subscriber:Self Name:Tanner James Payer ID:Not on file Group ID:Not on file Type:Not on file Address: [address] [place], [facility] MEDICARE PROVIDER BASED ([address] [address] [employer] [place] MEDICARE PPS Advance Directives Documents on File Type Date Recorded 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 Luo Dentistry - General 01/12/18
--- OUTSIDE RECORDS SUMMARY | 2024-12-01 13:27 | XMS_ITS | Data Portability ---
Author Organization [facility], [facility] Address [address] [facility] [address] [place] [address] Assessment No assessment recorded. 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 Lamont Bravo MD [address] [place] [address],[facility] [address] [place] [address], [phone], [facility] 2 16:32:18 Recurrent urinary tract infection 909610209 Active 2021 Managed with daily Bactrim Lamont Bravo MD [address] [place] [address],[place] [address] [place] [address], [phone], [facility] 2 16:32:42 Problem Notes None recorded. Procedures Surgical History Date Name Laterality Status Provider Name and Address Organization Details Recorded Time 07/11/19 NEPHRECTOMY, HAND ASSISTED LAPAROSCOPIC (SURG) completed Mary Monte [facility] 07/17/2021 09:46:04 Imaging Results None recorded. Procedure Notes None recorded. Medical Equipment None Reported. Allergies Allergen ID Allergen Name Allergen Category Reaction Reaction Severity Criticality Documentation Date Start Date Code Code System Note Provider Name and Address Organization Details Recorded Time 108875 Non-stero idal anti-infl ammatory agent (product) medicatio n Not available Not available Not available 03/20/2021 80276 005 SNOMED Lamont Bravo MD [address] [place] [address],[address], [place], [address], [facility] 1 16:22:56 625143 Levaquin medicatio n Not available Not available Not available 03/20/2021 39435 2 RxCarroll Bravo MD [address] [place] [address],[address] [address], [facility] 1 16:23:24 251923 levofloxa giorgio medicatio n other Not available Not available 08/11/20212021 30445 Bree Bravo MD [address] [place] [address],[address], [place], [address], [facility] 2 16:06:24 063516 terbinafi ne hydrochlo ride medicatio n fever headache Not available Not available Not available 08/11/20212019 14843 8 Bree Bravo MD [address] [place] [address],[address], [place], [address], [facility] 2 16:06:24 Medications Name Sig Start [...] Updated DateTime 08/11/2021 160.02 cm 28.3 kg/m2 88000.78 g Lamont Bravo MD [address] [place] [address],[address] [place] [address] Urolog 08/11/2021 16:06:06 Date Recorded Body height Body mass index (BMI) Body weight Provider Name and Address Organization Details Last Updated DateTime 03/20/2021 160.02 cm 33.7 kg/m2 74579.55 g Lamont Bravo MD [address] [place] [address],[address] Urology 03/20/2021 16:22:47 Social History Question Answer Notes LastModified by [employer] Details LastModified Time Tobacco Smoking Status Never Smoker Lamont Bravo MD [address] [place] [address] Urology 03/20/2021 16:24:21 What Is Your Level Of Caffeine Consumption? Occasional Information not available 03/20/2021 What Was The Date Of Your Most Recent Tobacco Screening? 08/11/2021 Information not available 08/11/2021 Sex: Unknown Functional Status Question Answer Note LastModified by [employer] [facility] Details LastModified Time Do you use any [...] polysaccharide PPV23 0 completed Lamont Bravo MD [address] [place] [address],[address], [place], [address], [facility] 08/11/2021 16:07:09 Pneumococcal conjugate PCV 13 5 completed Lamont Bravo MD [address] [place] [address],[address] [place] [address], [address], [facility] 08/11/2021 16:07:09 pneumococcal polysaccharide PPV23 5 completed Lamont Bravo MD [address] [place] [address],[address], [address], [facility] 08/11/2021 16:07:09 Pneumococcal conjugate PCV 13 6 completed Lamont Bravo MD [address] [place] [address],[address], [address], [facility] 08/11/2021 16:07:10 pneumococcal polysaccharide PPV23 6 completed Lamont Bravo MD [address] [place] [address],[address], [address], [facility] 08/11/2021 16:07:10 Past Encounters Encounter ID Performer Location Encounter Start Date Encounter Closed Date Diagnosis/Indication Diagnosis SNOMED-CT Code Diagnosis ICD10 Code Diagnosis Note [id number] MD TAMIKA Hudson_Nara 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 This can be managed with a left nephrectom y. She'll need a pretty thorough preop and the procedure is needed soon and cannot wait a couple of months. [id number] MD Sondra Hudson 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 She can now stop [...] ID Guarantor Name 08/08/2021 1 [place]ICARE [place]: [employer] Tanner James [id number] 1 Tanner Brown Erika 08/08/2021 2 [employer] [place] (MEDICARE SUPPLEMENT) Tanner Serna Erika [id number] Tanner Brown Erika Notes Date Note Type Note Provider Name and Address Organization Details Recorded Time 03/20/2021 text/html New patient here to discuss nephrectomy.She fell when she was at [place] and that led to a CT scan that showed an atrophic kidney and a staghorn stone. She's had recurrent pyelonephritis as well.She had ESWL in 2002. She also has a poor aortic valve. Lamont Bravo MD [address] [place] [address],[address] [place] [address], [phone], [facility] 03/20/2021 17:02:40 08/11/2021 text/html She has recovere d well from surgery. 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 Lamont Bravo MD [address] [place] [address],[address], [place], [address], [facility] 08/11/2021 16:37:50 OBGyn Episode No OBEpisode recorded.
[2024-12-01 13:29] LABS: Slide Review Reflex No
[2024-12-01 13:42] LABS: Chloride* 107 mmol/L (96-114)
[2024-12-01 13:43] LABS: Albumin* 3.9 g/dL (3.3-5.0); Potassium* 4.2 mmol/L (3.6-5.1); Sodium* 139 mmol/L (135-149)
[2024-12-01 13:45] LABS: Blood Urea Nitrogen* 15 mg/dL (7-30); Creatinine* 0.9 mg/dL (0.5-1.5); Est. Creatinine Clearance* 38.97; Estimated Glomerular Filt Rate 66 ml/min
[2024-12-01 13:46] LABS: Alanine Aminotransferase* 21 U/L (4-35); Alkaline Phosphatase* 86 U/L (40-150); Anion Gap 5 mEq/L (7-15); Aspartate Amino Transferase* 47 U/L (12-35); Bilirubin Total* 0.6 mg/dL (0.1-1.5); Carbon Dioxide* 27 mmol/L (20-32); Glucose* 104 mg/dL (60-115); Lipase* 230 U/L (23-300); Total Protein* 6.5 g/dL (6.0-8.3)
[2024-12-01 13:50] LABS: Troponin, Point-of-Care* 0.02 ng/ml (0.01-0.04)
[2024-12-01 13:53] LABS: C Reactive Protein* < 0.5 mg/dL (0.5-1.0)
[2024-12-01 13:58] LABS: Troponin I* 0.02 ng/mL (0.01-0.04)
[2024-12-01 14:15] LABS: NT Pro B Type NatriureticPept* 1710 pg/mL (See Note)
[2024-12-01] MEDS: HYDROCODONE-ACETAMIN 5-325 MG 1 TAB PO (15:06)
[2024-12-01 15:28] LABS: Troponin, Point-of-Care* 0.02 ng/ml (0.01-0.04)
[2024-12-01] MEDS: 0.9 % SODIUM CHLORIDE 250 ml 250 ML IV (15:30)
[2024-12-01 18:15] LABS: Troponin, Point-of-Care* 0.02 ng/ml (0.01-0.04)
== END 2024-12-01 18:18 | disposition home or self-care (01) ==
PROVIDERS: Emergency Provider Family Medicine; PCP Family Medicine
DX: R07.9 Chest pain, unspecified (principal); R06.02 Shortness of breath; R05.3 Chronic cough; Z79.01 Long term (current) use of anticoagulants
CPT/HCPCS: 36415; 71046; 80048; 80076; 83605; 83690; 83735; 83880; 84484; 85025; 86140; 93005; 94761; 96360; 99284; 99285; A9270; J7050

== ENCOUNTER 2024-12-01 18:05 | Outpatient (CLI) | payer MEDICARE, OTHER, SELFPAY | END 2024-12-01 18:06 | disposition home or self-care (01) | PROVIDERS: PCP Family Medicine; Visit Provider Family Medicine | DX: R07.89 Other chest pain (principal) | CPT/HCPCS: A0425; A0428 ==

== ENCOUNTER 2024-12-19 08:49 | Outpatient (CLI) | payer MEDICARE, OTHER, SELFPAY | END 2024-12-19 08:50 | disposition home or self-care (01) | PROVIDERS: PCP Family Medicine; Visit Provider Family Medicine | DX: R53.1 Weakness (principal) | CPT/HCPCS: A0425; A0427 ==

== ENCOUNTER 2024-12-19 09:25 | Emergency (ER) | payer MEDICARE, OTHER, SELFPAY ==
[2024-12-19 09:36] VITALS: BP 116/54; PULSE 96; RESP 18; TEMP 37; O2SAT 92; BMI 48.7
--- OUTSIDE RECORDS SUMMARY | 2024-12-19 09:53 | XMS_ITS | Clinical Summary ---
Author Organization [facility] Address [address] [place] [address] Care Team Providers Care Boiler Operator Helper Name Role Phone Basilio Healy MD Primary Care Provider [phone] Source Comments You are receiving this document as you are listed as the primary care provider,follow-up provider, or the patient has been referred to you for consultation.This is in compliance with the Medicare and[facility] EHR Incentive Program,which states Providers who transition their patient to another setting of careor provider of care or refers their patient to another provider of care shouldprovide summary care record for each transition of care or referral. [employer] Allergies Active Allergy Reactions Criticality Noted Date Comments Levofloxacin Other, see comments 02/02/2022 Muscles snapped Nsaids Other, see comments High 03/18/2011 HUT Reaction: GI Bleeding; HUT Severity: High; HUT Noted: [id number] Terbinafine Muscle Aches/Weakness 02/02/2022 Medications Cholecalciferol 2000 [...] Patient receives drug assistance for Enbrel from [employer]. 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 Patient discontinued 05/2012. 12/20/2012 start venlafaxine 37.5mg Osteopenia 12/07/2011 Overview (04/28/2019): Emotional Disabilities Teacher wants patient to be on alendronate [...] Overview (04/28/2019): HGB 9.6 ON ADMIT TO [facility] 03/2009; ENDOSCOPY REVEALED SHALLOW GASTRIC ULCERATIONS [...] ProviderWendy MD 09/19/2024 Orders Only HIM DEPARTMENT Provider, MD Wendy from Last 3 Months Immunizations Immunization Administration Dates Next Due Flu Vac (3+ yrs) 04/03/2013, 2,04/30/2010,2008,04/10/2003 Flu Vac Preserv Free (3+yrs) 04/30/2010,04/15/20 09 HepA Adult (19+ yrs) 10/20/2004,03/07/2004 HepA Ped/Adol (1-18 yrs) 10/20/2004 HepA, Pediatric (DO NOT USE; for MIIC only) 10/20/2004 IPV (Polio) 03/07/2004 Influenza IIV3 (Trivalent) F luzone Highdose, 65+ Yrs (13796) 04/25/2019,03/09/2016,03/30/2014 Influenza IIV4 (Quadrivalent ) 0.5mL (88941) 04/23/2021,04/25/2019,04/19/2018,2015,03/30/2014,04/03/2013,04/15/2012,1 06/30/2009,04/15/2009,04/10/2003 Influenza IIV4 (Quadrivalent ) Fluzone, [...] 01/15/2025 2:00 PM CDT Appointment Rheumatology at [facility] [address] [address] Man Sánchez MD [address] [place], [place] [id number] Health Maintenance Due Date Last Done Comments Medicare Annual Wellness Visit 1945 Tuberculosis Screening 1945 RSV Vaccine (1 - 1-dose 75+ series) 2022 Colonoscopy 10/27/2023 10/26/2018 (Comp leted), 11/12/2008 (Completed) COVID-19 Vaccine ( season) 2024 03/24/2022, 05/02/2021, 09/10/2020, Additional history exists Dexa 10/07/2024 10/07/2022, 01/2018, 02/02/2018, Additional history exists Influenza Vaccine (Season Ended) 2025 04/15/2023, 05/04/2022, 04/23/2021, Additional history exists DTaP/Tdap/Td Vaccine (3 - Tdap) 12/23/2030 12/23/2020, 05/28/2012, 03/15/2003 HepA Vaccine Completed 10/20/2004, 09/27, 10/20/2004, Additional [...] Comments LABORATORY REPORT 09/20/2024 LABORATORY REPORT 09/19/2024 DXA BONE DENSITY SPINE/HIP INC VERT FX [...] Provider MD CLANCY/OTHER/AR Final Resu lt * DXA Bone Density Spine/Hip Inc Vert [...] not included. Patient Name: Tanner James Densitometer: Phenomix W Appt Dept/Resource: Granda Bone Density GRANDA [...] (06/30) (Not Scanned) N/A N/A N/A N/A *N/A [...] trabecular bone, and is derived from the aonlz-hl-cpvif changes of bone density embedded in the [...] Performed by Real Time PCR CLIA Number [id number] HCV Quant iu/ml <12 IU/ml HP CONVERSION Comment:CLIA Number [id number] HCV Quant Log iu/ml <1.08 Log IU/ml HP CONVERSION Comment: Performed at [facility], [address] [place] [address] CLIA Number [id number] 12/12/2015 11:4 4 AM CDT 12/12/2015 3:01 PM CDT Swapnil Henley MD LAB_1 Final Result HP CONVERSION from Last 3 Months or Most Recently Relevant to Health Maintenance Insurance MEDICARE [place] [id number] [facility] [place] [id number] Advance Directives Documents on File Type Date Recorded 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
--- OUTSIDE RECORDS SUMMARY | 2024-12-19 09:54 | XMS_ITS | Encounter Summary ---
Author Organization [facility] Address [address] [place] [address] Care Team Providers Care Automotive Electrical Helper Name Role Phone Basilio Healy MD Primary Care Provider Reason for Visit * Reason Comments Refill Encounter Details Date Type Department Care Team (Late Contact Info) Description 02/06/2016 Refill Rheumatology at [address] [place], [place] [id number] Swapnil Henley MD Refill Social History Tobacco Use Types Packs/Day Years Used Date Smoking Tobacco: Never Assessed Comments No Sex and Gender Information Value Date Recorded Sex Assigned at Not on file Legal Sex Female 6:13 AM CDT Gender Identity Not on file Sexual Orientation Not on file documented as of this encounter Plan of Treatment Upcoming Encounters Date Type Department Care Team ([facility] Contact Info) Description 01/15/2025 2:00 PM CDT Appointment Rheumatology at [address] [address] Man Sánchez MD [address] [place] [address] documented as of this encounter Visit Diagnoses Not on filedocumented in this encounter Care Teams Automotive Electrical Helper Relationship Specialty Start Date End Date Basilio Healy MD [facility] [address] [place] [address] PCP - General Family Practice 10/28/22 documented as of this encounter
--- OUTSIDE RECORDS SUMMARY | 2024-12-19 09:54 | XMS_ITS | Clinical Summary ---
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 Patient discontinued 05/2012. 12/20/2012 start venlafaxine 37.5mg Osteopenia 12/07/2011 05/05/2023 Overview (10/10/2018): Manager Radiation wants patient to be on alendronate indefinitely [...] Overview (11/13/2009): HGB 9.[address] [facility] 03/2009; ENDOSCOPY REVEALED SHALLOW GASTRIC ULCERATIONS [...] Encounters Date Type Department Care Team Description 12/15/2024 3:15 PM CDT [facility] [address] [place] [address] Latosha Dimas, PT PT - OASIS RECERTIFICATION 12/15/2024 Plan of Care Documentation [facility] [address] [place] [address] 12/13/2024 [facility] Visit [facility] [address] [place] [address] Antelmo Del Castillo, OT CARE COORDINATION 12/12/2024 1:30 PM CDT [facility] Visit [facility] [address] [place] [address] Antelmo Del Castillo, OT OT - DISCIPLINE DISCHARGE 12/11/2024 3:15 PM CDT [facility] Visit [facility] [address] [place] [address] Latosha Dimas, PT PT - HOME VISIT 12/09/2024 Home [facility] Visit [facility] [address] [place] [address] Latosha Dimas, PT CARE COORDINATION 12/07/2024 3:15 PM CDT [facility] Visit [facility] [address] [place] [address] Latosha Dimas, PT PT - HOME VISIT 12/07/2024 1:00 PM CDT [facility] Visit [facility] [address] [place] [address] Miguelina Guzman COTA OT - HOME VISIT 12/06/2024 Home [facility] Visit [facility] [address] [place] [address] Antelmo Del Castillo, OT CARE COORDINATION 12/04/2024 3:15 PM CDT [facility] [address] [place] [address] Latosha Dimas, PT PT - HOME VISIT 12/04/2024 2:00 PM CDT [facility] [address] [place] [address] Antelmo Del Castillo, OT OT - REASSESSMENT 12/04/2024 Travel 11/30/2024 3:15 PM CDT [facility] [address] [place] [address] Latosha Dimas, PT PT - HOME VISIT 11/27/2024 3:15 PM CDT [facility] [address] [place] [address] Latosha Dimas, PT PT - HOME VISIT 11/26/2024 Home [facility] Visit [facility] [address] [place] [address] Latosha Dimas, PT CARE COORDINATION 11/23/2024 3:15 PM CDT [facility] [address] [place] [address] Latosha Dimas, PT PT - HOME VISIT 11/21/2024 Home [facility] Visit [facility] [address] [place] [address] Latosha Dimas, PT CARE TRANSITION NOTE 11/17/2024 1:15 PM CDT [facility] Visit [facility] [address] [place] [address] Miguelina Guzman COTA OT - HOME VISIT 11/16/2024 3:15 PM CDT [facility] Visit [facility] [address] [place] [address] Latosha Dimas, PT PT - REASSESSMENT 11/14/2024 1:30 PM CDT [facility] Visit [facility] [address] [place] [address] Miguelina Guzman COTA OT - HOME VISIT 11/13/2024 3:15 PM CDT [facility] Visit [facility] [address] [place] [address] Latosha Dimas, PT PT - HOME VISIT 11/13/2024 Home [facility] Visit [facility] [address] [place] [address] Latosha Dimas, PT CARE COORDINATION 11/09/2024 3:15 PM CDT [facility] Visit [facility] [address] [place] [address] Latosha Dimas, PT PT - HOME VISIT 11/09/2024 1:30 PM CDT [facility] Visit [facility] [address] [place] [address] Miguelina Guzman COTA OT - HOME VISIT 11/06/2024 3:15 PM CDT [facility] Visit [facility] [address] [place] [address] Latosha Dimas, PT PT - HOME VISIT 11/06/2024 Home [facility] Visit [facility] [address] [place] [address] Latosha Dimas, PT CARE COORDINATION 11/02/2024 3:15 PM CDT [facility] Visit [facility] [address] [place] [address] Latosha Dimas, PT PT - HOME VISIT 10/31/2024 Orders Only [facility] [address] [place] [address] Renae Pruett NP <No scans attached> 10/30/2024 3:15 PM CDT [facility] Visit [facility] [address] [place] [phone] Latosha Dimas, PT PT - HOME VISIT 10/30/2024 10:45 AM CDT [facility] Visit [facility] [address] [place] [phone] Antelmo Del Castillo, OT OT - INITIAL ASSESSMENT 10/30/2024 Home [facility] Visit [facility] [address] [place] [phone] Latosha Dimas, PT CARE COORDINATION 10/30/2024 Travel 10/26/2024 10:45 AM CDT [facility] [address] [place] [phone] Latosha Dimas, PT PT - HOME VISIT 10/24/2024 9:30 AM CDT [facility] Visit [facility] [address] [place] [phone] Francheska Cooley, PEEWEE SN - VNR-PVNI-COCW ASSESSMENT 10/24/2024 Orders Only [facility] [address] [place] [address] Milvia Almeida MD <No scans attached> 10/23/2024 1:00 PM CDT [facility] Visit [facility] [address] [place] [address], [place] [address] Latosha Dimas, PT PT - HOME VISIT 10/23/2024 [facility] Visit [facility] [address] [place] [phone] Latosha Dimas, PT CARE COORDINATION 10/23/2024 [facility] Visit [facility] [address] [place] [phone] Shara Wesley RN CARE COORDINATION 10/20/2024 Home Care Visit [address] [address] José Miguel Bentley, PT CARE COORDINATION 10/20/2024 [facility] Visit [facility] [address] [place] [phone] José Miguel Bentley, PT CARE COORDINATION 10/19/2024 9:30 AM CDT [facility] Visit [facility] [address] [place] [phone] José Miguel Bentley, PT PT - OASIS START OF CARE 10/19/2024 Plan of Care Documentation [address] [address] 10/13/2024 Transcribe Orders [address] [address] Kyle Healy MD 10/06/2024 Nurse Triage [address] [address] Kyle Healy MD Home Care (See Note. 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 Gender Identity Not on file Sexual Orientation Not on file Obstetrics History Last Filed Vital Signs Vital Sign Reading Time Taken Comments Blood Pressure 105/60 12/15/2024 3:53 PM CDT Pulse 81 12/15/2024 3:53 PM CDT Temperature 36.2 C (97.2 F) 12/15/2024 3:53 PM CDT Respiratory Rate 16 12/15/2024 3:53 PM CDT Oxygen Saturation 92% 12/15/2024 3:53 PM CDT Inhaled Oxygen Concentration - - Weight 112.5 kg (248 lb) 10/24/2024 9:52 AM CDT stated Height 160 cm (5' 3) 02/18/2024 7:45 AM CDT Body Mass Index 43.93 02/18/2024 7:45 AM CDT Plan of Treatment Upcoming Encounters Date Type Department Care Team (Late st Contact Info) Description 12/21/2024 3:15 PM CDT Home Care Visit [place] [address] [place] [address] Latosha Dimas, PT [address] [place] [address] 12/28/2024 3:00 AM CDT [facility] [address] [place] [address] Latosha Dimas, PT [address] [place] [address] 01/04/2025 3:00 AM CDT [facility] Visit [facility] [address] [place] [address] Latosha Dimas, PT [address] [place] [address] 01/11/2025 3:00 AM CDT [facility] [address] [place] [address] Latosha Dimas, PT [address] [facility] [place] [address] Health Maintenance Due Date Last Done Comments [...] this topic Medical Devices Implanted Type Area Inspection Manager Device Identifier Shelf Expiration Date Model / Serial / Lot Screw Tsrh Og Thin 6.5x50mm - [id number] Implanted:Qty: 3 on 04/28/2010 at [facility] N/A: Spine [employer] [id number]# / / Screw Locking 4x20mm Fine Tip Titnm - [id number] Implanted:Qty: 4 on 04/28/2010 at [facility] [employer] 04.802.211 # / / Screw Thin Crest 6.5x45mm - [id number] Implanted:Qty: 1 on 04/28/2010 at [facility] [id number]# / / Set Screw 3dx - [id number] Implanted:Qty: 4 on 04/28/2010 at [facility] [id number]# / / Cnnctr Tsrh 3dx Sm - [id number] Implanted:Qty: 4 on 04/28/2010 at [facility] Med[employer] [id number]# / / Rios 3.5cmx5.5mm Pre-Cut - [id number] Implanted:Qty: 2 on 04/28/2010 at [facility] [id number]# / / Kit Infuse Md - [id number] Implanted:Qty: 1 on 04/28/2010 at [facility] Spine [facility] 10/26/2012 [id number]# / / [id number] Filler Bio [id number] - [id number] Implanted:Qty: 1 on 04/28/2010 at [facility] [id number]# / / [id number] Synfix Lr 26mm Implanted:Qty: 1 on 04/28/2010 at [facility] Spine [employer] 08.802.017 S / / [id number] Description:SYNFIX LR 26MM Procedures Procedure Name Priority [...] bone density measurements were obtained using the [employer] bone densitometry system. COMPARISON: None. FINDINGS: SPINE: [...] bone density measurements were obtained using the [employer] bone densitometry system. COMPARISON: None. 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 [address] [address] 10/13/24 Mary Carpio Cardiology - Interventional 01/12/18 DR. Luo Dentistry - General 01/12/18
--- OUTSIDE RECORDS SUMMARY | 2024-12-19 09:54 | XMS_ITS ---
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 Role Phone Nancy Myers Unavailable Unavailable Luci Meza Unavailable Unavailable Juaquin Jones Unavailable Unavailable Allergies and adverse reactions Code CodeSystem Substance Reaction Severity StartDate Concern Status 53512 RXNORM Terbinafine Moderate 10/25/[address] NSAIDs Severe 07/01/2023 active 11818 RXNORM levoFLOXacin Moderate 07/01/2023 active 62747 RXNORM LamISIL Mild 07/01/2023 active Care Team Name Role Address Phone Organization Dates Juaquin Jones PCP [address], [address], [place], [address], [place] (Office): [facility] 10/29/2023 - 11/25/2023 Nancy Myers [facility], [facility] 10/29/2023 - 11/25/2023 Luci Meza [facility] [address], [place], [address], [place] (Office): : [facility] 10/29/2023 - 11/25/2023 Immunizations Immunization Status Vaccine Details Vaccine Code CodeSystem Date Notes TB 2 Step Mantoux Skin Test completed tuberculin skin test; unspecified formulation lotNumber: [id number] expiry: 10/25/2026 Mfg: Sanofi Given 0.1 ml Right Forearm intradermally Step 2 of Multi-step with next step required 98 CVX created date: 11/12/2023 consent date: 11/12/2023 administer ed date: 11/12/2023 Educated by on 05/08/2024 TB 2 Step Mantoux Skin Test completed tuberculin skin test; unspecified formulation lotNumber: [id number] expiry: 10/25/2026 Mfg: Sanofi [employer] Given 0.1 ml Left Forearm intradermally Step 1 of Multi-step with next step required 98 CVX created date: 10/30/2023 consent date: 10/29/2023 administer ed date: 10/29/2023 TB 2 Step Mantoux Skin Test completed tuberculin skin test; unspecified formulation lotNumber: [id number] expiry: 09/26/2026 Mfg: Sanofi Given 0.1 ml Left Forearm intradermally Step 1 of Multi-step with next step required 98 CVX created date: 10/25/2023 consent date: 10/25/2023 administer ed date: 10/14/2023 Educated by esthela rojas on 05/08/2024 TB 2 Step Mantoux Skin Test completed tuberculin skin test; unspecified formulation lotNumber: [id number] expiry: 07/28/2023 Mfg: tubersol Given 0.1 ml [...] date: 07/01/2023 administer ed date: 04/30/2010 PCV13, [id number] completed pneumococcal conjugate vaccine, 13 valent 133 [...] LNP, preservative free, 30 mcg/0.3mL dose Mfg: Quantum Voyage 208 CVX created date: 07/01/2023 administer ed date: 09/10/2020 COVID-19 Vaccine dose 3 completed unknown vaccine or immune globulin Mfg: Quantum Voyage 999 CVX created date: 07/01/2023 administer ed date: 05/02/2021 COVID-19 Vaccine dose 4 completed SARS-COV-2 (COVID-19) vaccine, mRNA, spike protein, LNP, preservative free, 30 mcg/0.3mL dose Mfg: Quantum Voyage 208 CVX created date: 07/01/2023 administer ed date: 03/24/2022 PCV20, Prevnar 20 cancelled Pneumococcal conjugate vaccine 20-valent (PCV20), polysaccharide [id number] conjugate, adjuvant, preservative free 216 CVX created [...] Concern Status 1 OTHER CYTOMEGALOVIRAL DISEASES 11/02/[address] active 2 BRONCHIECTASIS, UNCOMPLICATED 10/29/[address] active 3 DEPRESSION, UNSPECIFIED 10/29/[address] active 4 OTHER CHRONIC PAIN 10/29/[address] active 5 OTHER SYMPTOMS AND SIGNS INVOLVING COGNITIVE FUNCTIONS AND AWARENESS 10/29/[address] active 6 PNEUMONIA, UNSPECIFIED ORGANISM 10/29/[address] active 7 ALCOHOL USE, UNSPECIFIED, UNCOMPLICATED 10/25/[address] active 8 CHRONIC KIDNEY DISEASE, STAGE 3A 10/25/[address] active 9 IMMUNODEFICIENCY DUE TO DRUGS 10/25/[address] active 10 KLEBSIELLA PNEUMONIAE [K. PNEUMONIAE] THE CAUSE OF DISEASES CLASSIFIED ELSEWHERE 10/25/[address] active 11 LUMBAGO WITH SCIATICA, RIGHT SIDE 10/25/[address] active 12 MILD COGNITIVE IMPAIRMENT OF UNCERTAIN OR UNKNOWN ETIOLOGY 10/25/[address] active 13 MUSCLE WEAKNESS (GENERALIZED) 10/25/[address] active 14 OTHER CARE HOME (CURRENT) DRUG THERAPY 10/25/[address] active 15 PERSONAL HISTORY OF URINARY CALCULI 10/25/[address] active 16 URINARY TRACT INFECTION, SITE NOT SPECIFIED 10/25/[address] active 17 OTHER SPECIFIED PERSONAL RISK FACTORS, NOT ELSEWHERE CLASSIFIED 07/07/1907/14/[address] completed 18 PAROXYSMAL ATRIAL FIBRILLATION 07/05/[address] active 19 ACQUIRED ABSENCE OF KIDNEY 07/01/[address] active 20 ACUTE POSTHEMORRHAGIC ANEMIA 07/01/19 24 07/14/[address] completed 21 ANXIETY DISORDER, UNSPECIFIED 07/01/[address] active 22 ATHEROSCLEROTIC HEART DISEASE OF [place] CORONARY ARTERY WITHOUT ANGINA PECTORIS 07/01/[address] active 23 CHRONIC DIASTOLIC (CONGESTIVE) HEART FAILURE 07/01/[address] active 24 CHRONIC KIDNEY DISEASE, STAGE 3 UNSPECIFIED 07/01/19 24 07/14/[address] completed 25 CHRONIC OBSTRUCTIVE PULMONARY DISEASE, UNSPECIFIED 07/01/[address] active 26 CONSTIPATION, UNSPECIFIED 07/01/[address] active 27 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[place] 07/01/[address] active 28 ENCOUNTER FOR CHANGE OR REMOVAL OF SURGICAL WOUND DRESSING 07/01/19 07/14/[address] completed 29 ENCOUNTER FOR SURGICAL AFTERCARE FOLLOWING SURGERY ON THE CIRCULATORY SYSTEM 07/01/19 24 07/14/[address] completed 30 ESSENTIAL (PRIMARY) HYPERTENSION 07/01/[address] active 31 FIBROMYALGIA 07/01/[address] active 32 NONRHEUMATIC AORTIC (VALVE) STENOSIS 07/01/[address] active 33 OBESITY, UNSPECIFIED 07/01/[address] active 34 OTHER PANCYTOPENIA 07/01/[address] active 35 OTHER PRIMARY THROMBOPHILIA 07/01/[address] active 36 OTHER RHEUMATOID ARTHRITIS WITH RHEUMATOID FACTOR OF MULTIPLE SITES 07/01/[address] active 37 PERSONAL HISTORY OF PULMONARY EMBOLISM 07/01/[address] active 38 POLYOSTEOARTHRITIS, UNSPECIFIED 07/01/[address] active 39 PRESENCE OF PROSTHETIC HEART VALVE 07/01/[address] active 40 RETROPERITONEAL HEMATOMA 07/01/19 24 07/14/[address] completed 41 SPINAL STENOSIS, LUMBAR REGION WITHOUT NEUROGENIC CLAUDICATION 07/01/[address] active Reason for Referral No Reasons for Referral Entered Social History Social History Observation Description Start Date End Date Code Code System Current Smoking Status Tobacco smoking consumption unknown 947934518 SNOMED CT Sex Assigned At Female 1945 [address]-2 [facility] Gender Identity Vital Signs Code Code System Vitals Name Values and Units Timing Information 01481-7 [facility] Pain Level Value=5.0 11/25/2023 9279-1 INC Respiratory Rate Value=18.0 Units=/m in 11/25/2023 8462-4 LOINC Blood Pressure-Diastolic Value=75 Un its=mmHg 11/25/2023 8480-6 LOINC Blood Pressure-Systolic Hklsl=766 Un its=mmHg 11/25/2023 8310-5 LOINC Body Temperature Value=97.9 Units= F 11/25/2023 8867-4 LOINC Heart rate Value=76.0 Units=/min 21734-3 [facility] O2 % BldC Oximetry Value=98.0 Units= % 11/25/2023 71601-1 LOINC Weight Rmcma=575.0 Units=Lbs 8302-2 [facility] Height Value=63.0 Units=Inches 11/10/2023
--- OUTSIDE RECORDS SUMMARY | 2024-12-19 09:54 | XMS_ITS | Data Portability ---
Author Organization [facility], [facility] Address [address] [place] [address] Assessment No assessment recorded. 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 Lamont Bravo MD [address] [place] [address], [phone], [facility] 2 16:32:18 Recurrent urinary tract infection 579758407 Active 2021 Managed with daily Bactrim Lamont Bravo MD [address] [place] [address], [phone], [facility] 2 16:32:42 Problem Notes None recorded. Procedures Surgical History Date Name Laterality Status Provider Name and Address Organization Details Recorded Time 07/11/19 NEPHRECTOMY, HAND ASSISTED LAPAROSCOPIC (SURG) completed Mary Monte [facility] 07/17/2021 09:46:04 Imaging Results None recorded. Procedure Notes None recorded. Medical Equipment None Reported. Allergies Allergen ID Allergen Name Allergen Category Reaction Reaction Severity Criticality Documentation Date Start Date Code Code System Note Provider Name and Address Organization Details Recorded Time 173089 Non-stero idal anti-infl ammatory agent (product) medicatio n Not available Not available Not available 03/20/2021 14006 005 SNOMED Lamont Bravo MD [address] [place] [address],[address] [place] [address], [phone], [facility] 1 16:22:56 321822 Levaquin medicatio n Not available Not available Not available 03/20/2021 [id number] 2 Bree Bravo MD [address] [place] [address],[facility] [address] [place] [address], [phone], [facility] 1 16:23:24 520336 levofloxa giorgio medicatio n other Not available Not available 08/11/20212021 70211 Bree Bravo MD [address] [place] [address],[address], [place], [phone], [facility] 2 16:06:24 269521 terbinafi ne hydrochlo ride medicatio n fever headache Not available Not available Not available 08/11/20212019 91361 8 Bree Bravo MD [address] [place] [address] [place] [address], [phone], [facility] 2 16:06:24 Medications Name Sig Start [...] Updated DateTime 08/11/2021 160.02 cm 28.3 kg/m2 97853.78 g Lamont Bravo MD [address] [place] [address] [facility] 08/11/2021 16:06:06 Date Recorded Body height Body mass index (BMI) Body weight Provider Name and Address Organization Details Last Updated DateTime 03/20/2021 160.02 cm 33.7 kg/m2 09310.55 g Lamont Bravo MD [address] [place] [address],[address] [facility] 03/20/2021 16:22:47 Social History Question Answer Notes LastModified by [employer] Details LastModified Time Tobacco Smoking Status Never Smoker Lamont Bravo MD [address] [place] [address] Urology 03/20/2021 16:24:21 What Is Your Level Of Caffeine Consumption? Occasional Information not available 03/20/2021 What Was The Date Of Your Most Recent Tobacco Screening? 08/11/2021 Information not available 08/11/2021 Sex: Unknown Functional Status Question Answer Note LastModified by [employer] Details LastModified Time Do you use any [...] available 2020 16:23:54 Medical History Condition Response Heart Disease Y High Blood Pressure Y Kidney Stones Y High Cholesterol Y Gynecological HistoryNo gynecological history recorded. Obstetrics History GPAL:G 0 P 0 0 0 0 Immunizations Vaccine Type Date Status Note Provider Nam e and Address Organization Details Recorded Time pneumococcal polysaccharide PPV23 0 completed Lamont Bravo MD [address] [place] [address],[address], [place], [address], [facility] 08/11/2021 16:07:09 Pneumococcal conjugate PCV 13 5 completed Lamont Barvo MD [address] [place] [address],[address], [place], [address], [facility] 08/11/2021 16:07:09 pneumococcal polysaccharide PPV23 5 completed Lamont Bravo MD [address] [place] [address],[address], [phone], [facility] 08/11/2021 16:07:09 Pneumococcal conjugate PCV 13 6 completed Lamont Bravo MD [address] [place] [address],[address], [phone], [facility] 08/11/2021 16:07:10 pneumococcal polysaccharide PPV23 6 completed Lamont Bravo MD [address] [place] [address],[address], [phone], [facility] 08/11/2021 16:07:10 Past Encounters Encounter ID Performer Location Encounter Start Date Encounter Closed Date Diagnosis/Indication Diagnosis SNOMED-CT Code Diagnosis ICD10 Code Diagnosis Note [id number] MD TAMIKA Hudson_Nara 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 This can be managed with a left nephrectom y. She'll need a pretty thorough preop and the procedure is needed soon and cannot wait a couple of months. [id number] MD Sondra Hudson 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 She can now stop [...] ID Guarantor Name 08/08/2021 1 MEDICARE [place]: [email or web address] Tanner James [id number] Tanner Brown Erika 08/08/2021 2 [employer] (MEDICARE SUPPLEMENT) Tanner Serna Erika [id number] Tanner James Notes Date Note Type Note Provider Name and Address Organization Details Recorded Time 03/20/2021 text/html New patient here to discuss nephrectomy.She fell when she was at [place] and that led to a CT scan that showed an atrophic kidney and a staghorn stone. She's had recurrent pyelonephritis as well.She had ESWL in 2002. She also has a poor aortic valve. Lamont Bravo MD [address] [place] [address],[address], [phone], [facility] 03/20/2021 17:02:40 08/11/2021 text/html She has recovere d well from surgery. 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 Lamont Bravo MD [address] [place] [address],[address], [place], [address], [facility] 08/11/2021 16:37:50 OBGyn Episode No OBEpisode recorded.
[2024-12-19 09:56] VITALS: O2SAT 95
--- NOTE | 2024-12-19 09:56 | CRLHL7_ITS ---
For Patients: As a result of the Cures Act, medical imaging exams and procedure reports are released immediately into your electronic medical record. You may view this report before your referring provider. If you have questions, please contact your health care provider. INDICATION: : weakness, shortness of breath COMPARISON: Chest radiograph on December 01, 2024 and priors TECHNIQUE: Two view(s) of the chest FINDINGS: The cardiomediastinal silhouette and pulmonary vasculature are unremarkable. There is no focal airspace consolidation, pleural effusion, or pneumothorax. No displaced fractures. Degenerative changes of the shoulders and spine. IMPRESSION: No acute cardiopulmonary process. Dictated by Scott Faulkner MD @ 12/19/2024 10:54:22 AM (Electronically Signed)
--- NOTE | 2024-12-19 09:59 | ED.WEAKNESS ---
HPI - Weakness General Date Seen: 12/19/24 Chief complaint: Weakness Stated complaint: weakness Time Seen by Provider: 12/19/24 09:45 Source: patient, EMS, RN notes reviewed and old records reviewed Mode of arrival: EMS Limitations: no limitations History of Present Illness HPI Narrative: Patient is a 79-year-old female who presents by EMS for weakness, she is in assisted living in [place], and could not get herself up out of the bed this morning. Normally can get herself into a wheelchair. She does not know exactly what is going on, but tells me in the past with a UTI she has presented like this. She has some very mild shortness of breath, no chest pain associated with this, no redness rashes fevers chills an 8 normally yesterday she has had no nausea no vomiting she always has diarrhea she says but not more than usual. She denies any abdominal pain she denies any numbness tingling or weakness, unilaterally or different than it normally is. She has been taking her medications normally. MD Complaint: generalized weakness Onset (ago): hour(s) Location: generalized Migration: none Severity: moderate Relieving factors: none Exacerbating factors: movement Related Data Home Medications ?Medication ?Instructions ?Recorded ?Confirmed Lactobacillus acidophilus 0.5 mg 100 mmu cells PO DAILY 12/22/21 10/18/24 (100 million cell) tablet cholecalciferol (vitamin D3) 50 50 mcg PO DAILY 01/16/22 10/18/24 mcg (2,000 unit) capsule multivitamin 1 tab PO QAM 01/16/22 10/18/24 prednisone 5 mg tablet 7.5 mg PO DAILY 12/29/23 10/18/24 sulfasalazine 500 mg tablet 1 g PO BID 12/29/23 10/18/24 ascorbic acid (vitamin C) 500 mg 500 mg PO QDAY 10/18/24 10/18/24 tablet folic acid 1 mg tablet 1 mg PO QDAY 10/18/24 10/18/24 leflunomide 20 mg tablet 20 mg PO DAILY 10/18/24 10/18/24 Previous Rx's ?Medication ?Instructions ?Recorded diclofenac sodium 1 % topical gel 2 g topical QID PRN #100 grams 10/25/23 (Voltaren Arthritis Pain) potassium chloride 10 mEq 10 meq PO DAILY #90 caps 12/10/23 capsule,extended release ferrous sulfate 325 mg (65 mg 325 mg PO DAILY #100 tabs 01/18/24 iron) tablet valganciclovir 450 mg tablet 450 mg PO DAILY #90 tabs 05/10/24 pregabalin 50 mg capsule 50 mg PO BID #180 caps 08/09/24 apixaban 5 mg tablet (Eliquis) 2.5 mg (1/2 x 5 mg) PO BID #90 tabs 10/10/24 rosuvastatin 5 mg tablet 5 mg PO HS #90 tabs 10/10/24 nystatin 100,000 unit/gram topical 1 applic topical BID #30 grams 11/08/24 powder furosemide 40 mg tablet 40 mg PO DAILY #90 tabs 11/09/24 duloxetine 60 mg capsule,delayed 60 mg PO DAILY #90 caps 11/22/24 release metoprolol succinate 25 mg 25 mg PO BID #180 tabs 11/22/24 tablet,extended release 24 hr hydrocodone 5 mg-acetaminophen 325 1 tab PO BID PRN pain #60 tabs 12/07/24 mg tablet Allergies Allergy/AdvReac Type Severity Reaction Status Date / Time NSAIDS (Non-Steroidal Allergy Severe GI bleed Verified 12/19/24 13:26 Anti-Inflamma terbinafine Allergy Intermediate Headache Verified 12/19/24 13:26 levofloxacin AdvReac Severe tendon Verified 12/19/24 13:26 rupture Review of Systems Status of ROS: Reports: 10 or more systems reviewed and unremarkable except as noted in History and below [facility] Medical History Pressure ulcer of other site, stage 4 ?L89.894 - Pressure ulcer of other site, stage 4 (ICD-10) Hematoma ?T14.8XXA - Other injury of unspecified body region, initial encounter (ICD-10) Congestive heart failure ?I50.9 - Heart failure, unspecified (ICD-10) Non-ST elevated myocardial infarction (non-STEMI) ?I21.4 - Non-ST elevation (NSTEMI) myocardial infarction (ICD-10) 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 - Aneurysm of artery of lower extremity (ICD-10) Obesity (BMI 30.0-34.9) ?E66.9 - Obesity, unspecified (ICD-10) Alcohol use disorder ?F10.90 - Alcohol use, unspecified, uncomplicated (ICD-10) Pulmonary embolism ?I26.99 - Other pulmonary embolism without acute cor pulmonale (ICD-10) Gastrointestinal hemorrhage ?K92.2 - Gastrointestinal hemorrhage, unspecified (ICD-10) Aortic stenosis, severe ?I35.0 - Nonrheumatic aortic (valve) stenosis (ICD-10) History of kidney stones ?Z87.442 - Personal history of urinary calculi (ICD-10) Mitral annular calcification ?I05.9 - Rheumatic mitral valve disease, unspecified (ICD-10) Surgical History Status post transcatheter aortic valve replacement (TAVR) using bioprosthesis ?Z95.3 - Presence of xenogenic heart valve (ICD-10) S/P cataract extraction ?Z98.49 - Cataract extraction status, unspecified eye (ICD-10) S/P cholecystectomy ?Z90.49 - Acquired absence of other specified parts of digestive tract (ICD-10) History of left nephrectomy ?Z90.5 - Acquired absence of kidney (ICD-10) History of lumbar fusion (04/2010) ?Z98.1 - Arthrodesis status (ICD-10) History of lithotripsy ?Z98.890 - Other specified postprocedural states (ICD-10) Family History Mother Breast cancer, Onset Age: 70 Sister Breast cancer, Onset Age: 35 Social History Narrative: Has been living at [facility] an intrapartum apartment with a personal insurance advisor present for 4 hours on 3 days a week. Manages her own medications. Code status is DNR DNI What is your current living situation?: I presently have a place to live Problems where you live: no known problems Problems where you live details: n/a In the past 12 months, utilities in danger of being shut off: no In past 12 months, lack of transportation kept you from medical appts, meetings, work, or getting things needed for daily living: no In the past 12 mos, have been you worried that your food would run out before you had money to buy more?: never true In the past 12 mos, the food you bought just didn't last and you didn't have money to buy more?: never true Highest level of school completed/degree received: high school graduate Smoking Status: Never smoker Do you use any of these nicotine containing products: None Second hand tobacco smoke exposure: Yes How often do you have a drink containing alcohol: never How often do you have six or more drinks on one occasion: Never AUDIT-C Alcohol total score: 0 Non-prescribed substance use: denies use Caffeine: Yes How often does anyone, including family, friends and others, physically hurt you: never How often does anyone, including family, friends and others, insult or talk down to you: never How often does anyone, including family, friends and others, threaten you with harm: never How often does anyone, including family, friends and others, scream or curse at you: never service: No Exam Narrative: Exam Narrative: On examination stabilization room 2 she is in no apparent distress. Speaking to me normally nontoxic, able lift her arms and her legs off the bed, but really tough for her to sit up. Pupils equal round reactive to light there is no scleral icterus redness, TMs are normal oropharynx normal, neck is supple full range of motion, no meningismus chest is good air entry bilaterally with no wheezing crackles noted her heart sounds no clicks murmurs or gallops, abdomen is soft and very obese, there is no tenderness to palpation no masses she has normal bowel sounds. Log-rolled, her back shows no evidence of any ulcers falls trauma over head, cervical spine thoracic spine lumbar spine palpate is normal, her buttock show no evidence of pressure ulcers or hematomas. She has 2 to 3+ nonpitting lymphedema of the lower extremities, no redness to suggest infection. Const: Vital Signs, click to edit/add: Vital Signs - 24 hr 12/19/24 09:36 Temperature 98.6 F Pulse Rate [Pulse Oximeter] 96 Respiratory Rate 18 Blood Pressure [Ri ght Upper Arm] 116/54 L Pulse Oximetry 92 Oxygen Delivery Me thod Room Air Course Course ED Course: Patient did well in the emergency room, the remainder of her laboratory tests did not show any acute findings, she was mildly low and hemoglobin at 9.8 she has been in the 90s before. I went over the findings of her CTs, her chest abdomen and pelvis, this did not show any huge clots, she has the old nephrectomy, the 0 chronic changes but nothing new. Her BNP was slightly elevated, but she was not even short of breath here. I think it would be reasonable let her go home now, she felt better after the fluids. Follow-up with primary care suggested, return to the emergency room if worsening. No evidence of acute CVA. And she is in agreement with this plan. She is able to pivot and walk air using a walker. Vital Signs Vital signs: Initial Vital Signs Temperature 98.6 F 12/19/24 09:36 Temperature Source Temporal Artery Scan 12/19/24 09:36 Pulse Rate 96 12/19/24 09:36 Respiratory Rate 18 12/19/24 09:36 Blood Pressure 116/54 L 12/19/24 09:36 Blood Pressure Mean 74 12/19/24 09:36 Pulse Oximetry 92 12/19/24 09:36 Oxygen Delivery Method Room Air 12/19/24 09:36 Vital Signs Temperature 98.6 F 12/19/24 09:36 Pulse Rate 96 12/19/24 09:36 Respiratory Rate 18 12/19/24 09:36 Blood Pressure 116/54 L 12/19/24 09:36 Pulse Oximetry 92 12/19/24 09:36 Oxygen Delivery Method Room Air 12/19/24 09:36 Temperature 98.6 F 12/19/24 09:36 Pulse Rate 96 12/19/24 09:36 Respiratory Rate 18 12/19/24 09:36 Blood Pressure 116/54 L 12/19/24 09:36 Pulse Oximetry 92 12/19/24 09:36 Oxygen Delivery Method Room Air 12/19/24 09:36 Medications Administered Medications: Discontinued Medications Generic Name Dose Route Start Last Admin Trade Name Freq PRN Reason Stop Dose Admin Sodium Chloride 1,000 mls @ 1,000 mls/hr 12/19/24 10:00 12/19/24 13:24 0.9 % Sodium Chloride 1000 Ml IV 12/19/24 10:59 Infused .Q1H MICHELLE Infusion Sodium Chloride 1,000 mls @ 1,000 mls/hr 12/19/24 13:00 12/19/24 13:23 0.9 % Sodium Chloride 1000 Ml IV 12/19/24 13:59 1,000 mls/hr .Q1H MICHELLE Administration MDM - Weakness MDM Narrative Medical decision making narrative: Life-threatening differential diagnosis considered include stroke, coronary artery disease, pneumonia, and heart failure. Other differential diagnosis include but are not limited to electrolyte imbalances, anemia, medication reactions, and urinary tract infection Medical Records Attestation: I reviewed the patient's medical records. Lab Data Attestation: I reviewed the patient's lab results. Labs: Lab Results 12/19/24 12/19/24 12/19/24 Range/Units 09:57 10:15 10:38 WBC 6.25 (4.50-11.00) K/uL RBC 2.97 L (4.00-5.20) m/uL Hgb 9.8 L (12.0-16.0) gm/dL Hct 32.1 L (33.0-51.0) % MCV 108 H (80-100) fL MCH 33 (26-34) pg MCHC 31 L (32-36) gm/dL RDW Coeff of Navneet 13.7 (11.5-15.5) % Plt Count 105 L (140-440) K/uL Neut % (Auto) 63.6 (42.0-72.0) % Lymph % (Auto) 22.6 (20-44) % Dyer % (Auto) 12.3 H (0.0-11.0) % Eos % (Auto) 0.6 (0.0-7.0) % Baso % (Auto) 0.6 (0.0-3.0) % Neut # (Auto) 3.97 (1.7-7.0) K/uL Lymph # (Auto) 1.41 (0.90-2.90) K/uL Dyer # (Auto) 0.80 (0.00-0.90) K/UL Eos # (Auto) 0.04 (0.00-0.50) K/uL Baso # (Auto) 0.04 (0.00-0.30) K/uL Abs Immat Gran (auto) 0.02 (0.00-0.30) K/uL Imm/Tot Granulo (auto) 0.3 % D-Dimer Quant (PE/DVT) 2.49 H (0.00-0.50) ug/ml Sodium 137 (135-149) mmol/L Potassium 4.1 (3.6-5.1) mmol/L Chloride 107 (96-114) mmol/L Carbon Dioxide 27 (20-32) mmol/L Anion Gap 3 L (7-15) mEq/L BUN 11 (7-30) mg/dL Creatinine 1.0 (0.5-1.5) mg/dL Estimated Creat Clear 38.97 Estimated GFR 58 ml/min Glucose 103 (60-115) mg/dL Lactate 1.6 (0.5-1.9) mmol/L Calcium 8.6 (8.4-10.6) mg/dL Magnesium 2.0 (1.5-2.6) mg/dL C-Reactive Protein 4.7 H (0.5-1.0) mg/dL NT-Pro-B Natriuret Pep 3360 H (See Note) pg/mL Procalcitonin 0.14 (<0.50) ng/mL Urine Color (Yellow) Urine Appearance (Clear) Urine pH (5.0-8.5) Ur Specific Butler (1.000-1.030) Urine Protein (Negative) Urine Glucose (UA) (Negative) Urine Ketones (Negative) Urine Blood (Negative) Urine Nitrite (Negative) Urine Bilirubin (Negative) Urine Urobilinogen (0.2-1.0) Ur Leukocyte Esterase (Negative) Urine RBC (0-2) Urine WBC (0-5) Ur Squamous Epith Cells (None-Few) Urine Bacteria (None) SARS-CoV-2 (PCR) Negative SARS-CoV-2 (Negative) Influenza Type A (PCR) Negative PCR FLU A (Negative) Influenza Type B (PCR) Negative PCR FLU B (Negative) RSV (PCR) Negative PCR RSV (Negative) POC Troponin I 0.03 (0.01-0.04) ng/ml 12/19/24 Range/Units 14:40 WBC (4.50-11.00) K/uL RBC (4.00-5.20) m/uL Hgb (12.0-16.0) gm/dL Hct (33.0-51.0) % MCV (80-100) fL MCH (26-34) pg MCHC (32-36) gm/dL RDW Coeff of Navneet (11.5-15.5) % Plt Count (140-440) K/uL Neut % (Auto) (42.0-72.0) % Lymph % (Auto) (20-44) % Dyer % (Auto) (0.0-11.0) % Eos % (Auto) (0.0-7.0) % Baso % (Auto) (0.0-3.0) % Neut # (Auto) (1.7-7.0) K/uL Lymph # (Auto) (0.90-2.90) K/uL Dyer # (Auto) (0.00-0.90) K/UL Eos # (Auto) (0.00-0.50) K/uL Baso # (Auto) (0.00-0.30) K/uL Abs Immat Gran (auto) (0.00-0.30) K/uL Imm/Tot Granulo (auto) % D-Dimer Quant (PE/DVT) (0.00-0.50) ug/ml Sodium (135-149) mmol/L Potassium (3.6-5.1) mmol/L Chloride (96-114) mmol/L Carbon Dioxide (20-32) mmol/L Anion Gap (7-15) mEq/L BUN (7-30) mg/dL Creatinine (0.5-1.5) mg/dL Estimated Creat Clear Estimated GFR ml/min Glucose (60-115) mg/dL Lactate (0.5-1.9) mmol/L Calcium (8.4-10.6) mg/dL Magnesium (1.5-2.6) mg/dL C-Reactive Protein (0.5-1.0) mg/dL NT-Pro-B Natriuret Pep (See Note) pg/mL Procalcitonin (<0.50) ng/mL Urine Color Yellow (Yellow) Urine Appearance Cloudy A (Clear) Urine pH 6.5 (5.0-8.5) Ur Specific Butler 1.010 (1.000-1.030) Urine Protein Negative (Negative) Urine Glucose (UA) Negative (Negative) Urine Ketones Negative (Negative) Urine Blood Negative (Negative) Urine Nitrite Negative (Negative) Urine Bilirubin Negative (Negative) Urine Urobilinogen 0.2 (0.2-1.0) Ur Leukocyte Esterase Trace A (Negative) Urine RBC 0-2 (0-2) Urine WBC 2-5 (0-5) Ur Squamous Epith Cells Moderate A (None-Few) Urine Bacteria Few A (None) SARS-CoV-2 (PCR) (Negative) Influenza Type A (PCR) (Negative) Influenza Type B (PCR) (Negative) RSV (PCR) (Negative) POC Troponin I (0.01-0.04) ng/ml Imaging Data CT scan - chest: Radiologist's impression: [place] [address] Diagnostic Imaging Report Patient: Tanner James MR#: [id number] : 1945 Acct:[id number] Loc: ED Service Date: 12/19/[address]: Ordering Physician: Fernando Brown M.D. Date of Service: 12/19/24 Procedure(s): CT angio chest PE protocol Accession Number(s): [id number] cc: Kyle Healy M.D.; Fernando Brown M.D.~ For Patients: As a result of the Century Cures Act, medical imaging exams and procedure reports are released immediately into your electronic medical record. You may view this report before your referring provider. If you have questions, please contact your health care provider. INDICATION: SOB. WEAKNESS, ELEV D DIMER. (Sic) COMPARISON: 10/26/2023 and 04/29/2023 TECHNIQUE: CT pulmonary angiography with 135 cc of Isovue 370 intravenous contrast. Reconstructed multiplanar MIP series were done. Please note that all CT scans at this facility use dose modulation, iterative reconstruction, and/or weight-based dosing when appropriate to reduce radiation dose to as low as reasonably achievable. FINDINGS: THORAX Pulmonary Arterial Vasculature: Opacification of the pulmonary arterial tree is adequate for assessment of pulmonary embolism. No intraluminal pulmonary arterial filling defect is identified to indicate a pulmonary embolism. Visualized Lower Neck: No lower cervical adenopathy. Lungs: Interpretation is limited by patient motion artifact and suboptimal inspiratory effort. Biapical and bilateral posterior segment lower lobe subsegmental bronchial wall thickening consistent with nonspecific small airways disease (bronchitis). Differential diagnostic considerations include interstitial edema. Pleura: Trace bilateral pleural effusions. Loculated fluid is noted within the left oblique fissure. No pneumothorax. Mediastinum: Thoracic aorta and pulmonary trunk are normal in caliber. Aortic valve replacement. Small pericardial effusion without extrinsic mass effect upon the cardiac chambers indicate tamponade physiology. Mild left anterior descending atherosclerotic coronary artery calcification. Chronic extensive dystrophic calcification of the interventricular septum. Left atrial enlargement, unchanged. Trachea and esophagus are normal in appearance. No mediastinal lymphadenopathy. ABDOMEN Visualized Upper Abdomen: No significant findings. Cholecystectomy. SKELETON AND BODY WALL No acute findings. High-riding right humeral head consistent with rotator cuff arthropathy. Hypertrophic proliferative bilateral glenohumeral osteoarthrosis. Left glenohumeral periarticular soft tissue calcifications consistent with calcific tendinitis and/or calcified loose intra-articular bodies. Distended left subacromial bursa consistent with bursitis. IMPRESSION: 1. No evidence of pulmonary embolism. 2. Biapical and bilateral posterior segment lower lobe subsegmental bronchial wall thickening consistent with nonspecific small airways disease (bronchitis). Differential diagnostic considerations include interstitial edema. No other significant pulmonary findings to explain shortness of breath. 3. Small pericardial effusion without extrinsic mass effect upon the cardiac chamber is to indicate tamponade physiology. 4. Incidental findings described in the body of the report. Please note that all CT scans at this facility use dose modulation, iterative reconstruction, and/or weight-based dosing when appropriate to reduce radiation dose to as low as reasonably achievable. Dictated by Robert Shaikh MD @ 12/19/2024 1:39:08 [place] [address] Diagnostic Imaging Report Patient: Tanner James MR#: [id number] : 1945 Acct:[id number] Loc: ED Service Date: 12/19/[address]: Ordering Physician: Fernando Brown M.D. Date of Service: 12/19/24 Procedure(s): CT abdomen pelvis w con Accession Number(s): [id number] cc: Kyle Healy M.D.; Fernando Brown M.D.~ For Patients: As a result of the 21st Century Cures Act, medical imaging exams and procedure reports are released immediately into your electronic medical record. You may view this report before your referring provider. If you have questions, please contact your health care provider. INDICATION: SOB. WEAKNESS, ELEV D DIMER. TECHNIQUE: CT abdomen and pelvis acquired with 135 cc Isovue 370 IV contrast. COMPARISON: November 21, 2024. October 09, 2023. May 2023 FINDINGS: Lower chest: Mild bibasilar atelectasis. Partially visualized TAVR changes and mitral annular calcifications. Calcifications extend into the septum. Trace pericardial effusion. Please see separately dictated CT of the chest for further details. Liver: Unremarkable. Normal in size and attenuation. No suspicious masses. Gallbladder and bile ducts: Gallbladder is absent. No intra or extrahepatic biliary ductal dilatation. Pancreas: Unremarkable. No mass or inflammation. Spleen: Heterogeneous enhancement of the spleen with small rounded hypodense lesions throughout the spleen, nonspecific. This is stable compared to May 2023. A few calcifications are noted likely related to prior granulomatous disease. Adrenal glands: Unremarkable. No nodules. Kidneys: Status post left nephrectomy. Stable soft tissue in the left retroperitoneal region likely related to scarring and stable compared to prior dating back to May 2023. GI tract: Unremarkable. Normal in caliber. No sign of mass or inflammation. Normal appendix. Vasculature: Abdominal aorta is normal in caliber. Mesenteric arteries are patent. Mild diffuse calcific atherosclerosis of the aorta and iliac vessels. Lymph nodes: No lymphadenopathy. Peritoneum/Abdominal Wall: Midline abdominal scar with underlying calcifications. Diffuse atrophy of the visualized muscles. No sign of mass or infiltration. No free air or significant free fluid. Pelvis: Fibroid uterus. Bladder is unremarkable. Bones: Lumbar fixation hardware. Diffuse degenerative changes. Coarse calcifications about the right hip may be related to prior trauma. IMPRESSION: 1. no acute intra-abdominal process identified. 2. Status post cholecystectomy. 3. Status post left nephrectomy. Please note that all CT scans at this facility use dose modulation, iterative reconstruction, and/or weight-based dosing when appropriate to reduce radiation dose to as low as reasonably achievable. Dictated by Domingo Lagunas MD @ 12/19/2024 1:39:17 PM (Electronically Signed)(Electronically Signed) ECG Data Attestation: I personally reviewed and interpreted this ECG as follows: ECG interpretation date: 12/19/24 Interpretation: EKG shows normal sinus rhythm with a ventricular rate of 89, inferiorly and laterally, there is ST wavews not present on previous EKG, her current EKG has QRS of 88 milliseconds QT 370 and a QTC of 450. Assessment: Abnormal EKG with inferior changes not present previously. Discharge Plan Discharge Clinical Impression: Weakness Patient Disposition: Home, Self-Care Condition: Stable Instructions: Weakness (ED), How to Help a Person Change Position Safely (DC) Additional Instructions: Home rest continue with fluids, this may be a element of dehydration, reassuring testing reassuring recovery here in the emergency room, no acute findings suggest anything severe. See how it goes. Activity Level: Light activity Prescriptions: No Action prednisone 5 mg tablet 7.5 mg PO DAILY sulfasalazine 500 mg tablet 1 g PO BID Rx Instructions: give with food (meal/snack) cholecalciferol (vitamin D3) 50 mcg (2,000 unit) capsule 50 mcg PO DAILY multivitamin Tablet 1 tab PO QAM folic acid 1 mg tablet 1 mg PO QDAY ascorbic acid (vitamin C) 500 mg tablet 500 mg PO QDAY leflunomide 20 mg tablet 20 mg PO DAILY Lactobacillus acidophilus 0.5 mg (100 million cell) tablet 100 mmu cells PO DAILY diclofenac sodium [Voltaren Arthritis Pain] 1 % gel 2 g topical QID PRNQty: 100 0RF Rx Instructions: apply to single elbow, wrist or hand; for hand includes palm/fingers/back of hand ferrous sulfate 325 mg (65 mg iron) Tablet 325 mg PO DAILY Qty: 100 0RF potassium chloride 10 mEq capsule, extended release 10 meq PO DAILY Qty: 90 3RF valganciclovir 450 mg tablet 450 mg PO DAILY Qty: 90 3RF pregabalin 50 mg capsule 50 mg PO BID Qty: 180 3RF Eliquis 5 mg tablet 2.5 mg PO BID Qty: 90 0RF rosuvastatin 5 mg tablet 5 mg PO HS Qty: 90 3RF nystatin 100,000 unit/gram powder 1 applic topical BID Qty: 30 2RF furosemide 40 mg tablet 40 mg PO DAILY Qty: 90 1RF metoprolol succinate 25 mg tablet extended release 24 hr 25 mg PO BID Qty: 180 3RF duloxetine 60 mg capsule,delayed release(DR/EC) 60 mg PO DAILY Qty: 90 1RF hydrocodone-acetaminophen 5-325 mg tablet 1 tab PO BID PRN (Reason: pain) Qty: 60 0RF Follow Up/Referrals: Kyle Healy MD [Primary Care Provider, Family Practice] Stand Alone Forms: MyHealth Info Instructions
[2024-12-19] MEDS: 0.9 % SODIUM CHLORIDE 1000 ml 1,000 ML IV ×2 (10:20→13:23)
[2024-12-19 10:37] LABS: Lactate* 1.6 mmol/L (0.5-1.9)
[2024-12-19 10:38] LABS: Basophils Absolute Auto 0.04 K/uL (0.00-0.30); Basophils Percent Auto 0.6 % (0.0-3.0); Eosinophils Absolute Auto 0.04 K/uL (0.00-0.50); Eosinophils Percent Auto 0.6 % (0.0-7.0); Hematocrit 32.1 % (33.0-51.0); Hemoglobin* 9.8 gm/dL (12.0-16.0); Immature Granulocytes Abs Auto 0.02 K/uL (0.00-0.30); Immature Granulocytes Pct Auto 0.3 %; Lymphocytes Absolute Auto 1.41 K/uL (0.90-2.90); Lymphocytes Percent Auto 22.6 % (20-44); Mean Corpuscular HGB Conc 31 gm/dL (32-36); Mean Corpuscular Hemoglobin 33 pg (26-34); Mean Corpuscular Volume 108 fL (80-100); Monocytes Percent Auto 12.3 % (0.0-11.0); Neutrophils Absolute Auto 3.97 K/uL (1.7-7.0); Neutrophils Percent Auto 63.6 % (42.0-72.0); Platelet Count* 105 K/uL (140-440); RDW Coefficient of Variation % 13.7 % (11.5-15.5); Red Blood Count 2.97 m/uL (4.00-5.20); White Blood Count* 6.25 K/uL (4.50-11.00)
[2024-12-19 10:42] LABS: Troponin, Point-of-Care* 0.03 ng/ml (0.01-0.04)
[2024-12-19 10:42] LABS: Slide Review Reflex No
[2024-12-19 11:09] LABS: Chloride* 107 mmol/L (96-114); Potassium* 4.1 mmol/L (3.6-5.1); Sodium* 137 mmol/L (135-149)
[2024-12-19 11:12] LABS: Anion Gap 3 mEq/L (7-15); Blood Urea Nitrogen* 11 mg/dL (7-30); Calcium* 8.6 mg/dL (8.4-10.6); Carbon Dioxide* 27 mmol/L (20-32); Est. Creatinine Clearance* 38.97; Estimated Glomerular Filt Rate 58 ml/min; Glucose* 103 mg/dL (60-115)
[2024-12-19 11:15] LABS: C Reactive Protein* 4.7 mg/dL (0.5-1.0)
[2024-12-19 11:21] LABS: PCR FLU A Negative PCR FLU A (Negative); PCR FLU B Negative PCR FLU B (Negative); PCR RSV Negative PCR RSV (Negative); SARS PCR* Negative SARS-CoV-2 (Negative)
[2024-12-19 11:25] LABS: D Dimer Quantitative* 2.49 ug/ml (0.00-0.50); NT Pro B Type NatriureticPept* 3360 pg/mL (See Note)
[2024-12-19 11:29] LABS: Procalcitonin* 0.14 ng/mL (<0.50)
--- NOTE | 2024-12-19 12:44 | CRLHL7_ITS ---
For Patients: As a result of the Century Cures Act, medical imaging exams and procedure reports are released immediately into your electronic medical record. You may view this report before your referring provider. If you have questions, please contact your health care provider. INDICATION: SOB. WEAKNESS, ELEV D DIMER. TECHNIQUE: CT abdomen and pelvis acquired with 135 cc Isovue 370 IV contrast. COMPARISON: November 21, 2024. October 09, 2023. May 2023 FINDINGS: Lower chest: Mild bibasilar atelectasis. Partially visualized TAVR changes and mitral annular calcifications. Calcifications extend into the septum. Trace pericardial effusion. Please see separately dictated CT of the chest for further details. Liver: Unremarkable. Normal in size and attenuation. No suspicious masses. Gallbladder and bile ducts: Gallbladder is absent. No intra or extrahepatic biliary ductal dilatation. Pancreas: Unremarkable. No mass or inflammation. Spleen: Heterogeneous enhancement of the spleen with small rounded hypodense lesions throughout the spleen, nonspecific. This is stable compared to May 2023. A few calcifications are noted likely related to prior granulomatous disease. Adrenal glands: Unremarkable. No nodules. Kidneys: Status post left nephrectomy. Stable soft tissue in the left retroperitoneal region likely related to scarring and stable compared to prior dating back to May 2023. GI tract: Unremarkable. Normal in caliber. No sign of mass or inflammation. Normal appendix. Vasculature: Abdominal aorta is normal in caliber. Mesenteric arteries are patent. Mild diffuse calcific atherosclerosis of the aorta and iliac vessels. Lymph nodes: No lymphadenopathy. Peritoneum/Abdominal Wall: Midline abdominal scar with underlying calcifications. Diffuse atrophy of the visualized muscles. No sign of mass or infiltration. No free air or significant free fluid. Pelvis: Fibroid uterus. Bladder is unremarkable. Bones: Lumbar fixation hardware. Diffuse degenerative changes. Coarse calcifications about the right hip may be related to prior trauma. IMPRESSION: 1. no acute intra-abdominal process identified. 2. Status post cholecystectomy. 3. Status post left nephrectomy. Please note that all CT scans at this facility use dose modulation, iterative reconstruction, and/or weight-based dosing when appropriate to reduce radiation dose to as low as reasonably achievable. Dictated by Domingo Lagunas MD @ 12/19/2024 1:39:17 PM (Electronically Signed)
--- NOTE | 2024-12-19 12:44 | CRLHL7_ITS ---
For Patients: As a result of the 21st Century Cures Act, medical imaging exams and procedure reports are released immediately into your electronic medical record. You may view this report before your referring provider. If you have questions, please contact your health care provider. INDICATION: SOB. WEAKNESS, ELEV D DIMER. (Sic) COMPARISON: 10/26/2023 and 04/29/2023 TECHNIQUE: CT pulmonary angiography with 135 cc of Isovue 370 intravenous contrast. Reconstructed multiplanar MIP series were done. Please note that all CT scans at this facility use dose modulation, iterative reconstruction, and/or weight-based dosing when appropriate to reduce radiation dose to as low as reasonably achievable. FINDINGS: THORAX Pulmonary Arterial Vasculature: Opacification of the pulmonary arterial tree is adequate for assessment of pulmonary embolism. No intraluminal pulmonary arterial filling defect is identified to indicate a pulmonary embolism. Visualized Lower Neck: No lower cervical adenopathy. Lungs: Interpretation is limited by patient motion artifact and suboptimal inspiratory effort. Biapical and bilateral posterior segment lower lobe subsegmental bronchial wall thickening consistent with nonspecific small airways disease (bronchitis). Differential diagnostic considerations include interstitial edema. Pleura: Trace bilateral pleural effusions. Loculated fluid is noted within the left oblique fissure. No pneumothorax. Mediastinum: Thoracic aorta and pulmonary trunk are normal in caliber. Aortic valve replacement. Small pericardial effusion without extrinsic mass effect upon the cardiac chambers indicate tamponade physiology. Mild left anterior descending atherosclerotic coronary artery calcification. Chronic extensive dystrophic calcification of the interventricular septum. Left atrial enlargement, unchanged. Trachea and esophagus are normal in appearance. No mediastinal lymphadenopathy. ABDOMEN Visualized Upper Abdomen: No significant findings. Cholecystectomy. SKELETON AND BODY WALL No acute findings. High-riding right humeral head consistent with rotator cuff arthropathy. Hypertrophic proliferative bilateral glenohumeral osteoarthrosis. Left glenohumeral periarticular soft tissue calcifications consistent with calcific tendinitis and/or calcified loose intra-articular bodies. Distended left subacromial bursa consistent with bursitis. IMPRESSION: 1. No evidence of pulmonary embolism. 2. Biapical and bilateral posterior segment lower lobe subsegmental bronchial wall thickening consistent with nonspecific small airways disease (bronchitis). Differential diagnostic considerations include interstitial edema. No other significant pulmonary findings to explain shortness of breath. 3. Small pericardial effusion without extrinsic mass effect upon the cardiac chamber is to indicate tamponade physiology. 4. Incidental findings described in the body of the report. Please note that all CT scans at this facility use dose modulation, iterative reconstruction, and/or weight-based dosing when appropriate to reduce radiation dose to as low as reasonably achievable. Dictated by Robert Shaikh MD @ 12/19/2024 1:39:08 PM (Electronically Signed)
[2024-12-19 14:49] LABS: Appearance Urine Cloudy (Clear); Bilirubin Urine Negative (Negative); Blood Urine Negative (Negative); Color Urine Yellow (Yellow); Glucose Urine Negative (Negative); Ketones Urine Negative (Negative); Leukocyte Esterase Urine Trace (Negative); Nitrite Urine Negative (Negative); Protein Urine Negative (Negative); Urobilinogen Urine 0.2 (0.2-1.0); pH Urine 6.5 (5.0-8.5)
[2024-12-19 14:58] LABS: Bacteria Urine Few; RBC Urine 0-2 (0-2); Squamous Epithelial Cell Urine Moderate (None-Few)
== END 2024-12-19 15:51 | disposition home or self-care (01) ==
PROVIDERS: Emergency Provider Family Medicine; PCP Family Medicine
DX: R53.1 Weakness (principal); R06.02 Shortness of breath; R19.7 Diarrhea, unspecified
CPT/HCPCS: 36415; 71046; 71275; 74177; 80048; 81001; 82270; 83605; 83735; 83880; 84145; 84484; 85025; 85379; 86140; 87086; 87631; 93005; 94761; 96360; 99284; 99285; J7030; Q9967

== ENCOUNTER 2024-12-19 15:40 | Outpatient (CLI) | payer MEDICARE, OTHER, SELFPAY ==
--- OUTSIDE RECORDS SUMMARY | 2024-12-22 00:38 | XMS_ITS | Clinical Summary ---
Author Organization [facility] Address [address] [place] [address] Care Team Providers Care Ribbon Hand Name Role Phone Basilio Healy MD Primary Care Provider [phone] Source Comments You are receiving this document as you are listed as the primary care provider,follow-up provider, or the patient has been referred to you for consultation.This is in compliance with the Medicare and[facility] EHR Incentive Program,which states Providers who transition their patient to another setting of careor provider of care or refers their patient to another provider of care shouldprovide summary care record for each transition of care or referral. [facility] Allergies Active Allergy Reactions Criticality Noted Date Comments Levofloxacin Other, see comments 02/02/2022 Muscles snapped Nsaids Other, see comments High 03/18/2011 HUT Reaction: GI Bleeding; HUT Severity: High; HUT Noted: [id number] Terbinafine Muscle Aches/Weakness 02/02/2022 Medications Cholecalciferol 2000 [...] Patient receives drug assistance for Enbrel from [employer]. 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 Patient discontinued 05/2012. 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 wants patient to be on alendronate indefinitely [...] Overview (04/28/2019): HGB 9.6 ON ADMIT TO [facility] 03/2009; ENDOSCOPY REVEALED SHALLOW GASTRIC ULCERATIONS WITH CMV GASTRITIS AND H PYLORI; TREATED WITH CLARITHROMYCIN, AMPICILLIN AND OMEPRAZOLE Health maintenance examination 12/25/2008 11/02/2016 Overview (04/28/2019): Last PE, 11/26/11 Pap, 04/2011 negative Lipids, 11/26/11 total- 225 trig- 139 hdl- 72 ldl- 125 Mammo, 05/2011 normal Dexa, 11/26/11 osteopenia; Hip -1.61 Forearm -1.67 Colonoscopy, 11/12/08; normal; repeat at 5 year due to Td, 03/15/03 Rheumatoid arthritis 12/25/2008 010 Overview (04/28/2019): Rheumatoid arthritis(714.0) Immunizations Immunization Administration Dates Next Due Flu Vac (3+ yrs) 04/03/2013, 2,04/30/2010,2008,04/10/2003 Flu Vac Preserv Free (3+yrs) 04/30/2010,04/15/20 09 HepA Adult (19+ yrs) 10/20/2004,03/07/2004 HepA Ped/Adol (1-18 yrs) 10/20/2004 HepA, Pediatric (DO NOT USE; for MIIC only) 10/20/2004 IPV (Polio) 03/07/2004 Influenza IIV3 (Trivalent) F luzone Highdose, 65+ Yrs (57140) 04/25/2019,03/09/2016,03/30/2014 Influenza IIV4 (Quadrivalent ) 0.5mL (51085) 04/23/2021,04/25/2019,04/19/2018,2015,03/30/2014,04/03/2013,04/15/2012,1 06/30/2009,04/15/2009,04/10/2003 Influenza IIV4 (Quadrivalent ) Fluzone, [...] 01/15/2025 2:00 PM CDT Appointment Rheumatology at [facility] [address] [id number] Man Sánchez MD [address] [place], [place] [id number] Health Maintenance Due Date Last Done Comments Medicare Annual Wellness Visit 1945 Tuberculosis Screening 1945 RSV Vaccine (1 - 1-dose 75+ series) 2022 Colonoscopy 10/27/2023 10/26/2018 (Comp leted), 11/12/2008 (Completed) COVID-19 Vaccine ( season) 2024 03/24/2022, 05/02/2021, 09/10/2020, Additional history exists Dexa 10/07/2024 10/07/2022, 0801/2018, 02/02/2018, Additional history exists Influenza Vaccine (Season [...] Recently Relevant to Health Maintenance Results * DXA Bone Density Spine/Hip Inc [...] not included. Patient Name: Tanner James Densitometer: [employer] W Appt Dept/Resource: Granda Bone Density GRANDA [...] (Femoral neck) N/A N/A N/A N/A Forearm (1/) (Not Scanned) N/A N/A N/A N/A *N/A [...] trabecular bone, and is derived from the [id number] changes of bone density embedded in the [...] Performed by Real Time PCR CLIA Number [id number] HCV Quant iu/ml <12 IU/ml HP CONVERSION Comment:CLIA Number [id number] HCV Quant Log iu/ml <1.08 Log IU/ml HP CONVERSION Comment: Performed at [facility], [address] [place] [id number] CLIA Number [id number] 12/12/2015 11:4 4 AM CDT 12/12/2015 3:01 PM CDT us Swapnil Henley MD LAB_1 Final Result HP CONVERSION from Last 3 Months or Most Recently Relevant to Health Maintenance Insurance MEDICARE [place] Advance Directives Documents on File Type Date Recorded 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
--- OUTSIDE RECORDS SUMMARY | 2024-12-22 00:39 | XMS_ITS ---
Author Organization [facility] Care Team Providers Care Business Continuity Planning Director Name Role Phone Nancy Myers Unavailable Unavailable Luci Meza Unavailable Unavailable Juaquin Jones Unavailable Unavailable Allergies and adverse reactions Code CodeSystem Substance Reaction Severity StartDate Concern Status 27479 RXNORM Terbinafine Moderate 10/25/[address] NSAIDs Severe 07/01/2023 active 83610 RXNORM levoFLOXacin Moderate 07/01/2023 active 65551 RXNORM LamISIL Mild 07/01/2023 active Care Team Name Role Address Phone Organization Dates Juaquin Jones PCP [address], [address], [place], [address], [place] (Office): [facility] 10/29/2023 - 11/25/2023 Nancy Myers [facility] 10/29/2023 - 11/25/2023 Luci Meza [facility] [address], [place], [address], [place] (Office): : [facility] 10/29/2023 - 11/25/2023 Immunizations Immunization Status Vaccine Details Vaccine Code CodeSystem Date Notes TB 2 Step Mantoux Skin Test completed tuberculin skin test; unspecified formulation lotNumber: [id number] expiry: 10/25/2026 Mfg: Sanofi Given 0.1 ml Right Forearm intradermally Step 2 of Multi-step with next step required 98 CVX created date: 11/12/2023 consent date: 11/12/2023 administer ed date: 11/12/2023 Educated by on 05/08/2024 TB 2 Step Mantoux Skin Test completed tuberculin skin test; unspecified formulation lotNumber: [id number] expiry: 10/25/2026 Mfg: Sanofi [employer] Given 0.1 ml Left Forearm intradermally Step 1 of Multi-step with next step required 98 CVX created date: 10/30/2023 consent date: 10/29/2023 administer ed date: 10/29/2023 TB 2 Step Mantoux Skin Test completed tuberculin skin test; unspecified formulation lotNumber: [id number] expiry: 09/26/2026 Mfg: Sanofi Given 0.1 ml Left Forearm intradermally Step 1 of Multi-step with next step required 98 CVX created date: 10/25/2023 consent date: 10/25/2023 administer ed date: 10/14/2023 Educated by esthela rojas on 05/08/2024 TB 2 Step Mantoux Skin Test completed tuberculin skin test; unspecified formulation lotNumber: [id number] expiry: 07/28/2023 Mfg: tubersol Given 0.1 ml [...] date: 07/01/2023 administer ed date: 04/30/2010 PCV13, [id number] completed pneumococcal conjugate vaccine, 13 valent 133 [...] LNP, preservative free, 30 mcg/0.3mL dose Mfg: Thuuz 208 CVX created date: 07/01/2023 administer ed date: 09/10/2020 COVID-19 Vaccine dose 3 completed unknown vaccine or immune globulin Mfg: Thuuz 999 CVX created date: 07/01/2023 administer ed date: 05/02/2021 COVID-19 Vaccine dose 4 completed SARS-COV-2 (COVID-19) vaccine, mRNA, spike protein, LNP, preservative free, 30 mcg/0.3mL dose Mfg: Thuuz 208 CVX created date: 07/01/2023 administer ed date: 03/24/2022 PCV20, Prevnar 20 cancelled Pneumococcal conjugate vaccine 20-valent (PCV20), polysaccharide [id number] conjugate, adjuvant, preservative free 216 CVX created [...] Concern Status 1 OTHER CYTOMEGALOVIRAL DISEASES 11/02/[address] active 2 BRONCHIECTASIS, UNCOMPLICATED 10/29/[address] active 3 DEPRESSION, UNSPECIFIED 10/29/[address] active 4 OTHER CHRONIC PAIN 10/29/[address] active 5 OTHER SYMPTOMS AND SIGNS INVOLVING COGNITIVE FUNCTIONS AND AWARENESS 10/29/[address] active 6 PNEUMONIA, UNSPECIFIED ORGANISM 10/29/[address] active 7 ALCOHOL USE, UNSPECIFIED, UNCOMPLICATED 10/25/[address] active 8 CHRONIC KIDNEY DISEASE, STAGE 3A 10/25/[address] active 9 IMMUNODEFICIENCY DUE TO DRUGS 10/25/[address] active 10 KLEBSIELLA PNEUMONIAE [K. PNEUMONIAE] THE CAUSE OF DISEASES CLASSIFIED ELSEWHERE 10/25/[address] active 11 LUMBAGO WITH SCIATICA, RIGHT SIDE 10/25/[address] active 12 MILD COGNITIVE IMPAIRMENT OF UNCERTAIN OR UNKNOWN ETIOLOGY 10/25/[address] active 13 MUSCLE WEAKNESS (GENERALIZED) 10/25/[address] active 14 OTHER SENIOR CARE (CURRENT) DRUG THERAPY 10/25/[address] active 15 PERSONAL HISTORY OF URINARY CALCULI 10/25/[address] active 16 URINARY TRACT INFECTION, SITE NOT SPECIFIED 10/25/[address] active 17 OTHER SPECIFIED PERSONAL RISK FACTORS, NOT ELSEWHERE CLASSIFIED 07/07/1907/14/[address] completed 18 PAROXYSMAL ATRIAL FIBRILLATION 07/05/[address] active 19 ACQUIRED ABSENCE OF KIDNEY 07/01/[address] active 20 ACUTE POSTHEMORRHAGIC ANEMIA 07/01/19 24 07/14/[address] completed 21 ANXIETY DISORDER, UNSPECIFIED 07/01/[address] active 22 ATHEROSCLEROTIC HEART DISEASE OF [place] CORONARY ARTERY WITHOUT ANGINA PECTORIS 07/01/[address] active 23 CHRONIC DIASTOLIC (CONGESTIVE) HEART FAILURE 07/01/[address] active 24 CHRONIC KIDNEY DISEASE, STAGE 3 UNSPECIFIED 07/01/19 24 07/14/[address] completed 25 CHRONIC OBSTRUCTIVE PULMONARY DISEASE, UNSPECIFIED 07/01/[address] active 26 CONSTIPATION, UNSPECIFIED 07/01/[address] active 27 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[place] 07/01/[address] active 28 ENCOUNTER FOR CHANGE OR REMOVAL OF SURGICAL WOUND DRESSING 07/01/19 07/14/[address] completed 29 ENCOUNTER FOR SURGICAL AFTERCARE FOLLOWING SURGERY ON THE CIRCULATORY SYSTEM 07/01/19 24 07/14/[address] completed 30 ESSENTIAL (PRIMARY) HYPERTENSION 07/01/[address] active 31 FIBROMYALGIA 07/01/[address] active 32 NONRHEUMATIC AORTIC (VALVE) STENOSIS 07/01/[address] active 33 OBESITY, UNSPECIFIED 07/01/[address] active 34 OTHER PANCYTOPENIA 07/01/[address] active 35 OTHER PRIMARY THROMBOPHILIA 07/01/[address] active 36 OTHER RHEUMATOID ARTHRITIS WITH RHEUMATOID FACTOR OF MULTIPLE SITES 07/01/[address] active 37 PERSONAL HISTORY OF PULMONARY EMBOLISM 07/01/[address] active 38 POLYOSTEOARTHRITIS, UNSPECIFIED 07/01/[address] active 39 PRESENCE OF PROSTHETIC HEART VALVE 07/01/[address] active 40 RETROPERITONEAL HEMATOMA 07/01/19 24 07/14/[address] completed 41 SPINAL STENOSIS, LUMBAR REGION WITHOUT NEUROGENIC CLAUDICATION 07/01/[address] active Reason for Referral No Reasons for Referral Entered Social History Social History Observation Description Start Date End Date Code Code System Current Smoking Status Tobacco smoking consumption unknown 270977147 SNOMED CT Sex Assigned At Female 1945 57310-2 [facility] Gender Identity Vital Signs Code Code System Vitals Name Values and Units Timing Information 37298-3 [facility] Pain Level Value=5.0 11/25/2023 9279-1 INC Respiratory Rate Value=18.0 Units=/m in 11/25/2023 8462-4 LOINC Blood Pressure-Diastolic Value=75 Un its=mmHg 11/25/2023 8480-6 LOINC Blood Pressure-Systolic Drynb=511 Un its=mmHg 11/25/2023 8310-5 LOINC Body Temperature Value=97.9 Units= F 11/25/2023 8867-4 LOINC Heart rate Value=76.0 Units=/min 65220-2 [facility] O2 % BldC Oximetry Value=98.0 Units= % 11/25/2023 11941-9 LOINC Weight Arzja=852.0 Units=Lbs 8302-2 [facility] Height Value=63.0 Units=Inches 11/10/2023
--- OUTSIDE RECORDS SUMMARY | 2024-12-22 00:40 | XMS_ITS | Clinical Summary ---
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 Patient discontinued 05/2012. 12/20/2012 start venlafaxine 37.5mg Osteopenia 12/07/2011 05/05/2023 Overview (10/10/2018): Patient Transport Orderly wants patient to be on alendronate indefinitely [...] 12/15/2024 3:15 PM CDT [facility] [address] [place] [address] Latosha Dimas, PT PT - OASIS RECERTIFICATION 12/15/2024 Plan of Care Documentation [facility] [address] [place] [address] 12/13/2024 [facility] [address] [place] [address] Antelmo Del Castillo, OT CARE COORDINATION 12/12/2024 1:30 PM CDT [facility] [address] [place] [address] Antelmo Del Castillo, OT OT - DISCIPLINE DISCHARGE 12/11/2024 3:15 PM CDT [facility] [address] [place] [address] Latosha Dimas, PT PT - HOME VISIT 12/09/2024 [facility] [address] [place] [address] Latosha Dimas, PT CARE COORDINATION 12/07/2024 3:15 PM CDT [facility] [address] [place] [address] Latosha Dimas, PT PT - HOME VISIT 12/07/2024 1:00 PM CDT [facility] [address] [place] [address] Miguelina Guzman COTA OT - HOME VISIT 12/06/2024 [facility] [address] [place] [address] Antelmo Del Castillo, OT CARE COORDINATION 12/04/2024 3:15 PM CDT [facility] [address] [place] [address] Latosha Dimas, PT PT - HOME VISIT 12/04/2024 2:00 PM CDT [facility] [address] [place] [address] Antelmo Del Castillo, OT OT - REASSESSMENT 12/04/2024 Travel 11/30/2024 3:15 PM CDT [facility] [address] [place] [address] Latosha Dimas, PT PT - HOME VISIT 11/27/2024 3:15 PM CDT [facility] [address] [place] [address] Latosha Dimas, PT PT - HOME VISIT 11/26/2024 [facility] [address] [place] [address] Latosha Dimas, PT CARE COORDINATION 11/23/2024 3:15 PM CDT [facility] [address] [place] [address] Latosha Dimas, PT PT - HOME VISIT 11/21/2024 [facility] Visit [facility] [address] [place] [address] Latosha Dimas, PT CARE TRANSITION NOTE 11/17/2024 1:15 PM CDT [facility] [address] [place] [address] Miguelina Guzman COTA OT - HOME VISIT 11/16/2024 3:15 PM CDT [facility] [address] [place] [address] Latosha Dimas, PT PT - REASSESSMENT 11/14/2024 1:30 PM CDT [facility] [address] [place] [address] Miguelina Guzman COTA OT - HOME VISIT 11/13/2024 3:15 PM CDT [facility] [address] [place] [address] Latosha Dimas, PT PT - HOME VISIT 11/13/2024 [facility] Visit [facility] [address] [place] [address] Latosha Dimas, PT CARE COORDINATION 11/09/2024 3:15 PM CDT [facility] [address] [place] [address] Latosha Dimas, PT PT - HOME VISIT 11/09/2024 1:30 PM CDT [facility] [address] [place] [address] Miguelina Guzman COTA OT - HOME VISIT 11/06/2024 3:15 PM CDT [facility] [address] [place] [address] Latosha Dimas, PT PT - HOME VISIT 11/06/2024 [facility] [address] [place] [address] Latosha Dimas, PT CARE COORDINATION 11/02/2024 3:15 PM CDT [facility] [address] [place] [address] Latosha Dimas, PT PT - HOME VISIT 10/31/2024 Orders Only [facility] [address] [place] [address] Renae Pruett NP <No scans attached> 10/30/2024 3:15 PM CDT [facility] [address] [place] [phone] Latosha Dimas, PT PT - HOME VISIT 10/30/2024 10:45 AM CDT [facility] [address] [place] [phone] Antelmo Del Castillo, OT OT - INITIAL ASSESSMENT 10/30/2024 [facility] [address] [place] [phone] Latosha Dimas, PT CARE COORDINATION 10/30/2024 Travel 10/26/2024 10:45 AM CDT [facility] [address] [place] [phone] Latosha Dimas, PT PT - HOME VISIT 10/24/2024 9:30 AM CDT [facility] [address] [place] [phone] Francheska Cooley, PEEWEE SN - GII-MGTX-ILRY ASSESSMENT 10/24/2024 Orders Only [facility] [address] [place] [address] Milvia Almeida MD <No scans attached> 10/23/2024 1:00 PM CDT [facility] [address] [place] [address], [place] [address] Latosha Dimas, PT PT - HOME VISIT 10/23/2024 [facility] [address] [place] [phone] Latosha Dimas, PT CARE COORDINATION 10/23/2024 [facility] [address] [place] [phone] Shara Wesley RN CARE COORDINATION 10/20/2024 Home Care Visit [address] [address] José Miguel Bentley, PT CARE COORDINATION 10/20/2024 [facility] [address] [place] [phone] José Miguel Bentley, PT CARE COORDINATION 10/19/2024 9:30 AM CDT [facility] [address] [place] [phone] José Miguel Bentley, PT PT - OASIS START OF CARE 10/19/2024 Plan of Care Documentation [address] [address] 10/13/2024 Transcribe Orders [address] [address] Kyle Healy MD 10/06/2024 Nurse Triage [address] [address] Kyle Healy MD Home Care (See Note. 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 Gender Identity Not on file Sexual Orientation [...] Care Team (Late st Contact Info) Description 12/28/2024 3:15 PM CDT Home Care Visit [place] [id number] [place] [address] Latosha Dimas, PT [address] [place] [address] 01/04/2025 3:00 AM CDT [facility] [address] [place] [address] Latosha Dimas, PT [address] [place] [address] 01/11/2025 3:00 AM CDT [facility] [address] [place] [address] Latosha Dimas, PT [address] [place] [address] Health Maintenance Due Date Last Done Comments [...] this topic Medical Devices Implanted Type Area Market Analysis Director Device Identifier Shelf Expiration Date Model / Serial / Lot Screw Tsrh Og Thin 6.5x50mm - [id number] Implanted:Qty: 3 on 04/28/2010 at [facility] N/A: Spine [employer] [id number]# / / Screw Locking 4x20mm Fine Tip Titnm - [id number] Implanted:Qty: 4 on 04/28/2010 at [facility] Xanga 04.802.211 # / / Screw Thin Crest 6.5x45mm - [id number] Implanted:Qty: 1 on 04/28/[address] [facility] [id number]# / / Set Screw 3dx - [id number] Implanted:Qty: 4 on 04/28/[address] [facility] [id number]# / / Cnnctr Tsrh 3dx Sm - [id number] Implanted:Qty: 4 on 04/28/2010 at [facility] Medtronic [id number]# / / Rios 3.5cmx5.5mm Pre-Cut - [id number] Implanted:Qty: 2 on 04/28/[address] [facility] [id number]# / / Kit Infuse Md - [id number] Implanted:Qty: 1 on 04/28/2010 at [facility] Spine [facility] 10/26/2012 [id number]# / / [id number] Filler Bio [id number] 5 - [id number] Implanted:Qty: 1 on 04/28/[address] [facility] [id number]# / / [id number] Synfix Lr 26mm Implanted:Qty: 1 on 04/28/2010 at [facility] Spine [employer] 08.802.017 S / / [id number] Description:SYNFIX LR 26MM Procedures Procedure Name Priority [...] bone density measurements were obtained using the [employer] Arrays bone densitometry system. COMPARISON: None. FINDINGS: SPINE: [...] bone density measurements were obtained using the [employer] bone densitometry system. COMPARISON: None. 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 POLST 04/29/2021 POLST 02/02/2017 1:11 [...] Code Status Discussion: Reviewed Preferences Care Teams Truck Operator Relationship Specialty Start Date End Date Kyle Healy MD [address] [place] [address] PCP - General Family Practice 07/14/23 Swapnil Henley MD Rheumatology 12/20/12 Marlys Woodruff, RD [address] [place] [address] Registered Dietitian Fire Eater 07/05/18 Funmi [place] COTA [address] [place] [address] Occupational Therapy 05/11/23 [facility] [address] [address] 10/13/24 Mary Carpio Cardiology - Interventional 01/12/18 DR. Luo Dentistry - General 01/12/18
--- OUTSIDE RECORDS SUMMARY | 2024-12-22 00:40 | XMS_ITS | Data Portability ---
Author Organization [facility], [facility] Address [address] [address] [place] [address] Assessment No assessment recorded. 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 Lamont Bravo MD [address] [place] [address], [phone], [facility] 2 16:32:18 Recurrent urinary tract infection 050563778 Active 2021 Managed with daily Bactrim Lamont Bravo MD [address] [place] [address], [phone], [facility] 2 16:32:42 Problem Notes None recorded. Procedures Surgical History Date Name Laterality Status Provider Name and Address Organization Details Recorded Time 07/11/19 NEPHRECTOMY, HAND ASSISTED LAPAROSCOPIC (SURG) completed Mary Monte [facility] 07/17/2021 09:46:04 Imaging Results None recorded. Procedure Notes None recorded. Medical Equipment None Reported. Allergies Allergen ID Allergen Name Allergen Category Reaction Reaction Severity Criticality Documentation Date Start Date Code Code System Note Provider Name and Address Organization Details Recorded Time 346746 Non-stero idal anti-infl ammatory agent (product) medicatio n Not available Not available Not available 03/20/2021 75577 005 SNOMED Lamnot Bravo MD [address] [place] [address],[address] [place] [address], [phone], [facility] 1 16:22:56 685389 Levaquin medicatio n Not available Not available Not available 03/20/2021 20228 2 Bree Bravo MD [address] [place] [address],[facility] [address] [place] [address], [phone], [facility] 1 16:23:24 997790 levofloxa giorgio medicatio n other Not available Not available 08/11/20212021 55304 Bree Bravo MD [address] [place] [address],[address], [place], [phone], [facility] 2 16:06:24 [id number] terbinafi ne hydrochlo ride medicatio n fever headache Not available Not available Not available 08/11/20212019 20713 8 Bree Bravo MD [address] [place] [address] [place] [address], [phone], [facility] 2 16:06:24 Medications Name [...] Updated DateTime 08/11/2021 160.02 cm 28.3 kg/m2 71928.78 g Lamont Bravo MD [address] [place] [address] Urology 08/11/2021 16:06:06 Date Recorded Body height Body mass index (BMI) Body weight Provider Name and Address Organization Details Last Updated DateTime 03/20/2021 160.02 cm 33.7 kg/m2 43250.55 g Lamont Bravo MD [address] [place] [address],[address] [facility] 03/20/2021 16:22:47 Social History Question Answer Notes LastModified by [employer] Details LastModified Time Tobacco Smoking Status Never Smoker Lamont Bravo MD [address] [place] [address] Urology 03/20/2021 16:24:21 What Is Your Level Of Caffeine Consumption? Occasional Information not available 03/20/2021 What Was The Date Of Your Most Recent Tobacco Screening? 08/11/2021 Information not available 08/11/2021 Sex: Unknown Functional Status Question Answer Note LastModified by [employer] Details LastModified Time Do you use any [...] polysaccharide PPV23 0 completed Lamont Bravo MD [address] [place] [address],[address], [place], [address], [facility] 08/11/2021 16:07:09 Pneumococcal conjugate PCV 13 5 completed Lamont Bravo MD [address] [place] [address],[address], [place], [address], [facility] 08/11/2021 16:07:09 pneumococcal polysaccharide PPV23 5 completed Lamont Bravo MD [address] [place] [address],[address], [phone], [facility] 08/11/2021 16:07:09 Pneumococcal conjugate PCV 13 6 completed Lamont Bravo MD [address] [place] [address],[address], [address], [facility] 08/11/2021 16:07:10 pneumococcal polysaccharide PPV23 6 completed Lamont Bravo MD [address] [place] [address],[address], [phone], [facility] 08/11/2021 16:07:10 Past Encounters Encounter ID Performer Location Encounter Start Date Encounter Closed Date Diagnosis/Indication Diagnosis SNOMED-CT Code Diagnosis ICD10 Code Diagnosis Note [id number] MD TAMIKA Hudson_Nara 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 This can be managed with a left nephrectom y. She'll need a pretty thorough preop and the procedure is needed soon and cannot wait a couple of months. [id number] MD Sondra Hudson 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 She can now stop [...] ID Guarantor Name 08/08/2021 1 [place]IC[place]: GOkey Tanner James [id number] 1 Tanner Brown Erika 08/08/2021 2 [employer] [place] (MEDICARE SUPPLEMENT) Tanner Serna Erika [id number] Tanner James Notes Date Note Type Note Provider Name and Address Organization Details Recorded Time 03/20/2021 text/html New patient here to discuss nephrectomy.She fell when she was at [employer] and that led to a CT scan that showed an atrophic kidney and a staghorn stone. She's had recurrent pyelonephritis as well.She had ESWL in 2002. She also has a poor aortic valve. Lamont Bravo MD [address] [place] [address],[address], [address], [facility] 03/20/2021 17:02:40 08/11/2021 text/html She has recovere d well from surgery. 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 Lamont Bravo MD [address] [place] [address],[address], [place], [address], [facility] 08/11/2021 16:37:50 OBGyn Episode No OBEpisode recorded.
--- OUTSIDE RECORDS SUMMARY | 2024-12-22 00:40 | XMS_ITS | Data Portability ---
Author Organization [place] - [facility], [facility], INTERNAL MEDICINE Address [address] [place] [address] Assessment No assessment recorded. Plan of Treatment Reminders Order Date Submit Date Provider Last Modified By Organization Details Last Modified Time Details Appointments None recorded. Lab folate, serum 2015 016 DBA_PATCH _[id number] [facility] - [facility], [address] [place] [address] , [address], [place], [address], 6 04:26:18 CBC w/ auto diff 2015 016 [facility] ([facility]) - [facility], [facility] [address] , [address], [place], [address], 6 04:26:18 CMP, serum or plasma 2015 016 [facility] - [facility], [facility], [address], [place], [address], 6 04:26:19 TSH, serum or plasma 2015 016 [facility] ([facility]) - [facility], [facility] Noemi Carpio, [address], [place], [address], 6 04:26:19 vitamin D, 1,25-dihydr oxy, serum 2015 016 [facility] - [facility], [address] , [address], [place], [address], 6 04:26:19 lipid panel, serum 2015 016 DBA_PATCH _[id number] [facility] - [facility], [address] , [address], [place], [address], 6 04:26:19 Referral None recorded. Procedures None recorded. Surgeries None recorded. Imaging US, echocardiog theo 2015 016 [facility], [facility] [address], [place], [address], 6 04:26:17 Medication Orders Remicade 100 mg intravenous solution 2015 [facility], [facility] [address], [place], [address], 6 04:26:16 Patient TargetsNo targets recorded. Patient Instructions Encounter Date Encounter Id Patient Instructions Last Modified By Organization Details Last Modified Time 05/14/2016 [id number] substance use disorder: care instructions [email or web address] Not available 05/15/2016 11:19:20 Reason for Referral [...] [facility] [address] [place] [address] Labor Hotlist tor: Shelli Mcduffie Numbe r [id number] [place]. [id number] -01 Not Available [facility] - Main Lab (Blood Not Drawn At This Location) Visit Public [facility] [place], [address], 06/12/2016 18:22:56 06/11/20 16 06/12/2016 TSH, serum or plasm a TSH 3.0 uIU/m L 0.5-4. 7 Testi ng Perfo rmed At: [facility] [place] [address] Serveron tor: Shelli Mcduffiee r [id number] [place] [id number] - Not Available [facility] Main Lab (Blood Not Drawn At This Location) Visit Public [facility] [place], [address], 06/12/2016 18:22:56 06/11/20 16 06/12/2016 vitam in [...] assay . Testi ng Perfo rmed At: [facility] [employer] [address] [place] [address] Labor Hotlist tor: Shelli Mcduffie r [id number] [place] [id number] -01 Not Available [facility] Main Lab (Blood Not Drawn At This Location) Visit Public [facility] [place], [address], 06/12/2016 18:22:57 06/11/20 16 06/12/2016 CBC w/ auto diff WBC 13.0 K/uL 4.0-11 .0 high Not Available [facility] Main Lab (Blood Not Drawn At This Location) Visit Public [place], [address], 06/12/2016 18:22:57 06/11/20 16 06/12/2016 CBC w/ auto diff RBC 5.15 M/uL 3.80-5 .10 high Not Available [facility] Main Lab (Blood Not Drawn At This Location) Visit Public [facility] [place], [address], 06/12/2016 18:22:57 06/11/20 16 06/12/2016 CBC w/ auto diff hemoglobin 15.5 g/dL 11.5-1 5.5 Not Available [facility] Main Lab (Blood Not Drawn At This Location) Visit Public [facility] [place], [address], 06/12/2016 18:22:57 06/11/20 16 06/12/2016 CBC w/ auto diff hematocrit 45.5 % 34.0-4 5.0 high Not Available [facility] Main Lab (Blood Not Drawn At This Location) Visit Public [facility] [place], [address], 06/12/2016 18:22:57 06/11/20 16 06/12/2016 CBC w/ auto diff MCV 88.3 fL 80.0-1 00.0 Not Available [facility] Main Lab (Blood Not Drawn At This Location) Visit Public [place], [address], 06/12/2016 18:22:57 06/11/20 16 06/12/2016 CBC w/ auto diff MCH 30.1 pg 27.0-3 4.0 Not Available [facility] Main Lab (Blood Not Drawn At This Location) Visit Public [place], [address], 06/12/2016 18:22:57 06/11/20 16 06/12/2016 CBC w/ auto diff MCHC 34.1 g/dL 32.0-3 5.5 Not Available [facility] Main Lab (Blood Not Drawn At This Location) Visit Public [place], [address], 06/12/2016 18:22:57 06/11/20 16 06/12/2016 CBC w/ auto diff RDW 14.0 % 11.0-1 5.0 Not Available [facility] Main Lab (Blood Not Drawn At This Location) Visit Public [facility] [place], [address], 06/12/2016 18:22:57 06/11/20 16 06/12/2016 CBC w/ auto diff neutrophils 79.3 % 40.0-7 4.0 high Not Available [facility] Main Lab (Blood Not Drawn At This Location) Visit Public [place], [address], 06/12/2016 18:22:57 06/11/20 16 06/12/2016 CBC w/ auto diff lymphocytes 8.9 % 19.0-4 8.0 low Not Available [facility] - Main Lab (Blood Not Drawn At This Location) Visit Public [place], [address], 06/12/2016 18:22:57 06/11/20 16 06/12/2016 CBC w/ auto diff monocytes 9.9 % 4.0-13 .0 Not Available [facility] Main Lab (Blood Not Drawn At This Location) Visit Public [place], [address], 06/12/2016 18:22:57 06/11/20 16 06/12/2016 CBC w/ auto diff eosinophils 1.4 % 0.0-7. 0 Not Available [facility] Main Lab (Blood Not Drawn At This Location) Visit Public [place], [address], 06/12/2016 18:22:57 06/11/20 16 06/12/2016 CBC w/ auto diff basophils 0.5 % 0.0-2. 0 Not Available [facility] Main Lab (Blood Not Drawn At This Location) Visit Public [place], [address], 06/12/2016 18:22:57 06/11/20 16 06/12/2016 CBC w/ auto diff platelet count 168 K/uL 130-40 0 Testi ng Perfo rmed At: [facility] [address] [place] [address] Labor atory Dire tor: Shelli McduffieIA Numbe r [id number] [place]. [id number] -01 Not Available [facility] - Main Lab (Blood Not Drawn At This Location) Visit Public [place], [address], 06/12/2016 18:22:57 06/11/20 16 06/12/2016 lipid panel , serum cholesterol 243 mg/dL <200 high Not Available [facility] Lab (Blood Not Drawn At This Location) Visit Public [place], [address], 06/12/2016 18:22:57 06/11/20 16 06/12/2016 lipid panel , serum triglyceride s 193 mg/dL <150 high Not Available [facility] (Blood Not Drawn At This Location) Visit Public [place], [address], 06/12/2016 18:22:57 06/11/20 16 06/12/2016 lipid panel , serum HDL cholesterol 60 mg/dL >39 Not Available [facility] - Main Lab (Blood Not Drawn At This Location) Visit Public [place], [address], 06/12/2016 18:22:57 06/11/20 16 06/12/2016 lipid panel , serum calc LDL chol 144 mg/dL <100 high Not Available [facility] - Main Lab (Blood Not Drawn At This Location) Visit Public [place], [address], 06/12/2016 18:22:57 06/11/20 16 06/12/2016 lipid panel , serum risk ratio LDL/HDL 2.41 ratio <3.22 Testi ng Perfo rmed At: [facility] [address] [place] [address] Labor atory [facility] tor: Shelli Mcduffie [id number] [place]. [id number] -01 Not Available [facility] - Main Lab (Blood Not Drawn At This Location) Visit Public [facility] [place], [address], 06/12/2016 18:22:57 06/11/20 16 06/12/2016 CMP, serum or plasm a glucose 109 mg/dL 70-99 high Not Available [facility] Main Lab (Blood Not Drawn At This Location) Visit Public [place], [address], 06/12/2016 18:22:58 06/11/20 16 06/12/2016 CMP, serum or plasm a BUN 20 mg/dL 8-23 Not Available [facility] Main Lab (Blood Not Drawn At This Location) Visit Public [place], [address], 06/12/2016 18:22:58 06/11/20 16 06/12/2016 CMP, serum or plasm a creatinine 1.17 mg/dL 0.60-1 .30 Not Available [facility] Main Lab (Blood Not Drawn At This Location) Visit Public [place], [address], 06/12/2016 18:22:58 06/11/20 16 06/12/2016 CMP, serum or plasm a eGFR amer. 55 mL/mi n/1.7 3 >60 low Not Available [facility] Main Lab (Blood Not Drawn At This Location) Visit Public Solution [place], [address], 06/12/2016 18:22:58 06/11/20 16 06/12/2016 CMP, serum or plasm a eGFR non- amer. 48 mL/mi n/1.7 3 >60 low Not Available [facility] Main Lab (Blood Not Drawn At This Location) Visit Public [place], [address], 06/12/2016 18:22:58 06/11/20 16 06/12/2016 CMP, serum or plasm a calc BUN/creat 17 ratio 6-28 Not Available [facility] - Main Lab (Blood Not Drawn At This Location) Visit Public [place], [address], 06/12/2016 18:22:58 06/11/20 16 06/12/2016 CMP, serum or plasm a sodium 143 mEq/L 133-14 6 Not Available [facility] Main Lab (Blood Not Drawn At This Location) Visit Public [place], [address], 06/12/2016 18:22:58 06/11/20 16 06/12/2016 CMP, serum or plasm a potassium 4.3 mEq/L 3.5-5. 4 Not Available [facility] Main Lab (Blood Not Drawn At This Location) Visit Public [place], [address], 06/12/2016 18:22:58 06/11/20 16 06/12/2016 CMP, serum or plasm a chloride 99 mEq/L 95-107 Not Available [facility] Main Lab (Blood Not Drawn At This Location) Visit Public [place], [address], 06/12/2016 18:22:58 06/11/20 16 06/12/2016 CMP, serum or plasm a carbon dioxide 25 mEq/L 18-29 Not Available [facility] - Main Lab (Blood Not Drawn At This Location) Visit Public [place], [address], 06/12/2016 18:22:58 06/11/20 16 06/12/2016 CMP, serum or plasm a calcium 9.2 mg/dL 8.5-10 .5 Not Available [facility] Main Lab (Blood Not Drawn At This Location) Visit Public [place], [address], 06/12/2016 18:22:58 06/11/20 16 06/12/2016 CMP, serum or plasm a protein, total 6.3 g/dL 6.1-8. 3 Not Available [facility] Main Lab (Blood Not Drawn At This Location) Visit Public Solution [place], [address], 06/12/2016 18:22:58 06/11/20 16 06/12/2016 CMP, serum or plasm a albumin 4.0 g/dL 3.5-5. 2 Not Available [facility] Main Lab (Blood Not Drawn At This Location) Visit Public Solution [place], [address], 06/12/2016 18:22:58 06/11/20 16 06/12/2016 CMP, serum or plasm a calc globulin 2.3 g/dL 1.9-3. 7 Not Available [facility] Main Lab (Blood Not Drawn At This Location) Visit Public [facility] [place], [address], 06/12/2016 18:22:58 06/11/20 16 06/12/2016 CMP, serum or plasm a calc A/G ratio 1.7 ratio 1.0-2. 6 Not Available [facility] Main Lab (Blood Not Drawn At This Location) Visit Public Solution [place], [address], 06/12/2016 18:22:58 06/11/20 16 06/12/2016 CMP, serum or plasm a bilirubin, total 0.7 mg/dL <=1.2 Not Available [facility] - Main Lab (Blood Not Drawn At This Location) Visit Public [place], [address], 06/12/2016 18:22:58 06/11/20 16 06/12/2016 CMP, serum or plasm a alkaline phosphatase 81 U/L 38-146 Not Available [facility] - Main Lab (Blood Not Drawn At This Location) Visit Public [place], [address], 06/12/2016 18:22:58 06/11/20 16 06/12/2016 CMP, serum or plasm a AST 44 U/L 9-40 high Not Available [facility] Main Lab (Blood Not Drawn At This Location) Visit Public [place], [address], 06/12/2016 18:22:58 06/11/20 16 06/12/2016 CMP, serum or plasm a ALT 41 U/L 5-40 high Testi ng Perfo rmed At: [facility] [address] [place] [address] Labor atory Dire tor: Shelli McduffieIA Numbe r [id number] [place] [id number] -01 Not Available [facility] Main Lab (Blood Not Drawn At This Location) Visit Public [place], [address], 06/12/2016 18:22:58 05/25/20 16 05/20/2016 US, echoc ardio gram No observ ation record ed. [email or web address] [facility] [address], [place], [address], 05/26/2016 17:55:40 06/16/20 16 XR, chest , 2 view No observ ation record ed. [email or web address] [facility] [address], [place], [address], 06/16/2016 15:05:56 08/05/19 17 XR, chest , 2 view No observ ation record ed. [facility] [address], [place], [address], 08/05/2016 14:53:38 Result Notes None recorded. Problems Name Problem SNOMED Code Status Onset Date Resolution Date Notes Provider Name and Address Organization Details Recorded Time Rheumatoid arthritis 02081359 Active Followed by Dr. Henley in [place] Esa Rachel, [address], [address], [facility], [facility]. 6 10:51:23 Anxiety 20292456 [facility]. 6 12:43:10 Alcoholism 0831237 Active 2015 sober since 2007 Esa Rachel, [address], [address], [facility], [facility]. 6 10:51:09 Diastolic heart failure 960483596 Active 2015 EF 70% Esa Rachel, [address], [address], [facility], [facility]. 6 19:25:07 Problem Notes None recorded. Procedures Surgical History Date Name Laterality Status Provider Name and Address Organization Details Recorded Time 01/27/20 16 Mammogram screening completed Luis Manuel [facility]. 05/14/2016 12:47:41 06/28/19 11 Colonoscopy and biopsy completed Luis Manuelryland Pierre [facility]. 05/14/2016 12:48:03 Back Surgery, Lumbar completed Christina Kj [facility]. 05/13/2016 19:32:33 Cholecystectomy completed Christina Underwood [facility], [facility]. 05/13/2016 19:32:38 Cataract Surgery completed Luis Manuel [facility]. 05/14/2016 12:47:23 Tonsillectomy completed Luis Manuel [facility]. 05/14/2016 12:47:31 Imaging Results None recorded. Procedure Notes None recorded. Medical Equipment None Reported. Allergies Allergen ID Allergen Name Allergen Category Reaction Reaction Severity Criticality Documentation Date Start Date Code Code System Note Provider Name and Address Organization Details Recorded Time 7963 Non-stero idal anti-infl ammatory agent (product) medicatio n Not available Not available Not available 05/13/2016 60282 005 SNOMED Christina Underwood [facility]. 6 19:31:42 Medications Name Sig Start [...] Updated DateTime 6 74 /min 18 /min 899394. 25 g 162.56 cm 39.5 kg/m2 128 mm[Hg] 90 mm[Hg] Marcia Sykes [facility]. 6 12:41:18 Date Recorded Body height Heart rate Respiratory rate Body weight Body mass index (BMI) Systolic blood pressure Diastolic blood pressure Provider Name and Address Organization Details Last Updated DateTime 6 162.56 cm 78 /min 18 /min 182458. 61 g 40.2 kg/m2 130 mm[Hg] 84 mm[Hg] Viviane [facility]. 6 10:47:34 Date Recorded Body height Heart rate Respiratory rate Body weight Body mass index (BMI) Systolic blood pressure Diastolic blood pressure Provider Name and Address Organization Details Last Updated DateTime 6 162.56 cm 68 /min 18 /min 150214. 25 g 39.5 kg/m2 128 mm[Hg] 86 mm[Hg] Viviane [facility]. 6 15:13:21 Social History Question Answer Notes LastModified by [employer] Details LastModified Time Tobacco Smoking Status Never Smoker Christina Underwood ajay, [facility]. 05/13/2016 19:32:21 Which Illicit Or Recreational Drugs Have You Used? None [email or web address] Information not available 05/13/2016 How Much Tobacco Do You Smoke? No Information not available 05/15/2016 How Many Years Have You Smoked Tobacco? 0 Information not available 05/15/2016 Sex: Unknown Functional Status Question Answer Note LastModified by [employer] Details LastModified Time What is your level of alcohol consumption? 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 Family History Relationship Description Onset Age of this Age Resolved Age Notes LastModified by Organization Details LastModified Time Mother Heart disease [email or web address] Not available 2015 19:32:15 Mother Malignant tumor of breast [email or web address] Not available 05/14 12:49:17 Father Malignant neoplasm of prostate [email or web address] Not available 05/14 12:49:30 Medical History No medical history recorded. Gynecological HistoryNo gynecological history recorded. Obstetrics History GPAL:G 0 P 0 0 0 0 Immunizations Vaccine Type Date Status Note Provider Nam e and Address Organization Details Recorded Time Influenza, split virus, quadrivalent, preservative 6 completed Luis Manuel moss, [facility]. 05/14/2016 12:49:44 Pneumococcal conjugate PCV 13 6 completed Luis Manuel moss, [facility]. 05/14/2016 12:49:57 pneumococcal polysaccharide PPV23 5 completed Luis Manuelryland moss, [facility]. 05/14/2016 12:50:21 Tdap 2 completed Luis Manuel moss, [facility]. 05/14/2016 12:51:27 Past Encounters Encounter ID Performer Location Encounter Start Date Encounter Closed Date Diagnosis/Indication Diagnosis SNOMED-CT Code Diagnosis ICD10 Code Diagnosis Note [id number] Esa Rachel DO [facility] [address] [place] [address] 05/14/2016 12:27:14 05/14/2016 13:08:02 Rheumatoid arthritis 87360875 M06.9 I rewrote the prescripti on with the same directions as Dr. Henley and faxed original and mine to hospital. Essential hypertension 93443299 I10 Echo ordered, I am unclear why she is on lasix. OK to take as needed. Alcoholism 9005679 F10.2 0 In remission. [id number] RADHA Dave [facility] [address] [place] [address] 06/11/2016 10:31:34 06/11/2016 11:25:29 Diastolic heart failure 788567543 I50.30 Recent ECHO--appe ars to be stable with Lasix daily. Rheumatoid arthritis 698 72001 M06.9 Followed by Rheumatolo gy Dyspnea on exertion 6084 5006 R06.09 Labs today Could be poss. side effect of Remicade. Alcoholism 0077548 F10.2 0 Sober since 2007 [id number] RADHA Dave [facility] [address] [place] [address] 06/25/2016 14:47:51 06/25/2016 15:57:24 Pneumonia 180496018 J18.9 Improving. Finish out antibiotic s. Going to check CXR in one month.RTC if symptoms return. Health Concerns Section Related Observation LastModified by Organization Detai ls LastModified Time None Recorded Concern Status LastModified by Organization Details LastModified Time None Recorded Advance Directives Directive None Recorded Payers Insurance Date Sequence Insurance Name Policy Number Policy Oshea Covered Member ID Oshea Member ID Guarantor Name 06/30/2016 2 MUTUAL AME James [id number] Tanner James 01/25/2017 1 [place] Tanner James [id number] Tanner James Notes Date Note Type Note Provider Name and Address Organization Details Recorded Time 05/14/2016 text/html Lives in [facility] for 6 months then [place] for 6 months, Primary Doctor in [place] is Dr. Olguin. Her retail security professional has been prescribing her infusions while in [place]. 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 Unfortunately, I was unaware of the recurrent infusion and it was only when they asked for an updated prescription did it come to light. She is here to establish with local physician and have physician with [facility] oversee her infusions. RA- Has been DX for 20 years. Hands, feet and knee are the main source of pain. She failed humira, then arencia, then actemra, then retuxin and now she started Remicade. She underwent the 2 loading doses and then came to [place] and needs the 3rd loading dose and [...] lasix nothing happens. Esa Rachel, DO [address] [facility], [place], [address], [email or web address] - [facility], [facility]. 05/15/2016 11:04:00 06/11/2016 text/html Lives in [facility] for 6 months then [place] for 6 months, Primary Doctor in [place] is Dr. Olguin. RA- Has been DX for 20 years. Hands, feet and knee are the main source of pain. She failed humira, then arencia, then actemra, then retuxin and now she started Remicade. She underwent the 2 loading doses and then came to [place] and needs the 3rd loading dose and [...] Trace edema with daily Lasix. Julia moss, [facility], [facility]. 06/11/2016 11:22:59 06/25/2016 text/html Er F/U- Had pneumonia, is feeling better. SOB is better but still is getting winded easily. Fatigue persists. She still has 3 days of Doxycycline left. No fever. Julia moss, [facility], [facility]. 06/29/2016 16:44:54 OBGyn Episode No OBEpisode recorded.
== END 2024-12-19 15:41 | disposition home or self-care (01) ==
PROVIDERS: PCP Family Medicine; Visit Provider Family Medicine
DX: R53.1 Weakness (principal)
CPT/HCPCS: A0425; A0428

== ENCOUNTER 2025-01-14 04:10 | Outpatient (CLI) | payer MEDICARE, OTHER, SELFPAY | END 2025-01-14 04:11 | disposition home or self-care (01) | PROVIDERS: PCP Family Medicine; Visit Provider Internal Medicine | DX: R53.1 Weakness (principal) | CPT/HCPCS: A0425; A0429 ==

== ENCOUNTER 2025-01-14 04:44 | Emergency (ER) | payer MEDICARE, OTHER, SELFPAY ==
--- OUTSIDE RECORDS SUMMARY | 2009-04-15 19:00 | XMS_ITS | Continuity of Care Document ---
Author Organization [facility] Address [address] [address] [place] [address] Phone Care Team Providers Care Truck Loader Name Role Phone Tosha West Unavailable Unavailable Procedures Procedure Date Subsqt Hosp-da E&m Minr Compl 9 Subsqt Hosp-da E&m Minr Compl 9 Init Inpt Cons New/est Mod-hi 9 Ugi Endo; W/bx 1/mx Advance Directives Directive Yes / No Effective Date File Name No Information Encounters Encounter Description Practice Location Reason(s) For Visit Diagnoses Date Provider Providers Copied on Encounter Subsqt Hosp-da E&m Minr Compl [facility], [address] [address], [place], [place], [id number], [place] tel:[phone] [facility] No Information 9 Stephen Givens. [address] [facility] [address], [place], [place], [id number], [place]. tel:[phone] Subsqt Hosp-da E&m Minr Compl [facility], [address] [address], [place], [place], [id number], [place] tel:[phone] [facility] No Information 9 No Information Init Inpt Cons New/est Mod-hi [facility], [address] [address], [place], [place], [id number], [place] tel:[phone] [facility] No Information 9 No Information Family History Family Member Type Diagnosis Age At Onset No Information Payers Payer name Insurance type Covered constitution party ID Authoriza tion(s) No Information Social History Type Description Quantity Date Captured Comments Sex Female Smoking Status No Information Chief Complaint And Reason For Visit No Information Reason For Referral Reason For Referral No Information History Of Present Illness Encounter Date Complaint History Of Prese nt Illness No Information Functional Status Date Functional Assessmen t No Information Instructions Date Instruction Additional Infor mation No Information Assessments Type Assessment Date No Information Patient Care Teams Name Effective Dates (start - stop) Status Members No Information
--- OUTSIDE RECORDS SUMMARY | 2016-05-06 04:20 | XMS_ITS | Continuity of Care Document ---
Author Organization [facility] Address [address] [facility] [address] [place] [address] Phone Care Team Providers Care Associate Media Director Name Role Phone Corona EASTMAN MD, Bailee Unavailable Unavailab le Allergies, Adverse Reactions, Alerts Substance Reaction Status Criticality NSAIDS (Non-Steroidal Anti-Inflammatory Drug) Intolera nt Active No Information Medications Medication Instructions Dosage Effective Dates (start - stop) Status Comments Trexall 5 mg tablet take 2 tablet by oral route every week 10 MG - Active omeprazole 20 mg capsule,delayed release take 1 capsule by oral route every day before a meal 20 MG - Active prednisone 5 mg tablet take 2 tablet by oral route every day 10 MG - Active potassium chloride ER 20 mEq tablet,extended release take 2 tablet by oral route every day with food 40 MEQ - Active Remicade 100 mg intravenous solution infuse (5MG/KG) by intravenous route every 8 weeks over no less than 5 MG/KG - Active hydrocodone 5 mg-acetaminophen 325 mg tablet take 1 tablet by oral route every 6 hours as needed for pain 1.00 tablet - Active furosemide 40 mg tablet take 1 tablet by oral route every day 40 MG - Active folic acid 1 mg tablet take 1 tablet by oral route every day 1 MG - Active atenolol 25 mg tablet take 1 tablet by oral route every day 25 MG - Active prednisone 20 mg tablet take2 tablets by oral route every day - No Longer Active omeprazole 40 mg capsule,delayed release take 1 capsule by oral route every day before a meal 40 MG - No Longer Active potassium chloride ER 20 mEq tablet,extended release take 1 tablet by oral route every day with food 20 MEQ - No Longer Active Actemra 400 mg/20 mL (20 mg/mL) intravenous solution as per pipe jeeper - No Longer Active Rasuvo (PF) 12.5 mg/0.25 mL subcutaneous auto-injector per rheumatology - No Longer Active prednisone 5 mg tablet take 1 tablet by oral route every day 5 MG - No Longer Active Procedures Procedure Date Unlisted Eval & Mgmt Serv Offic outpt EM [facility] Advance Directives Directive Yes / No Effective Date File Name No Information Encounters Encounter Description Practice Location Reason(s) For Visit Diagnoses Date Provider Providers Copied on Encounter Unlisted Eval & Mgmt Serv [facility] [place], [address], [place], [place], [id number], tel:[phone] [facility] [place] Infusion. (chief complaint) Rheumatoid arthritis, unspecified Corona Morocho. [address] [place] [address].,, [address], [place], [place], [id number], . tel:[phone] Referring Provider: Bailee Jeter MD, [address] [place] [address], [address], [place], [address]. tel:[phone] [facility], [address], [place], [place], [id number], tel:[phone] [facility] [place] HTN. (chief complaint)e st care (chief complaint) Elevated blood pressure readingEdema Corona Morocho. [address] [place] [address].,, [address], [place], [place], [id number], [place]. tel:[phone] Referring Provider: Bailee Jeter MD, [address] [place] [address]., [address], [place], [address]. tel:[phone] Family History Family Member Type Diagnosis Age At Onset Mother Problem (finding) malignant neop lasm of breast in first degree relative Mother Problem (finding) stroke Father Problem (finding) prostate cancer Mother Problem (finding) hypertension Payers Payer name Insurance type Covered constitution party ID Authoriza tion(s) Medicare MB [id number] Nelson [id number] Social History Type Description Quantity Date Captured Comments Alcohol Use Details Unknown Caffeine Use Details Unknown Tobacco Use Status No Information Smoking Status No Information Sex Female Vital Signs Date / Time: Height Weight BMI Pulse Rate Blood Pressure Temperature Respiratory Rate Body Surface Area Head Circumference Head Circ. Percentile Wt./Fran. Percentile BMI percentile Pulse Ox Inhaled Ox 9:25 AM 63.75 in 107.048 kg (236.00 lbs) 40.8 2 kg/m eter (2) 86 /min 150/95 mm[Hg] 18 /min 96 % 21 % Chief Complaint And Reason For Visit From encounter dated '05/06/2016 09:20'. Infusion. (chief complaint). Description: Pt presents for infusion orders for remicade taken for RA. Pt has received loading doses for 2 weeks and 4 weeks. Pt needs her 6 week loading dose but needs a prescription from a Roshan EASTMAN. Reason For Referral Reason For Referral No Information History Of Present Illness Encounter Date Complaint History Of Prese nt Illness Infusion. Pt presents for infusion orders for remicade taken for RA. Pt has received loading doses for 2 weeks and 4 weeks. Pt needs her 6 week loading dose but needs a prescription from a Roshan EASTMAN. est care HTN. New pt presents for f/u of HTN. Previous PCP retired. 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 Reports hx of RA, followed by pipe jeeper in [place]. Reports was seen in ER a few days ago for swelling rt. supraclavicular region. Unknown trigger. Not painful, hot or red. Reports the swelling has gone down but not completely resolved. Otherwise feeling ok, no URI sx or fevers. Reports bp was elevated while in the ER, but thinks they checked it with a regular cuff, not large. Denies hx of HTN. Checks occasionally at home with a wrist cuff and reports getting similar readings at home, 130/80 range. Takes atenolol for anxiety. Functional Status Date Functional Assessmen t No Information Instructions Date Instruction Additional Infor mation No Information Assessments Type Assessment Date assessment Rheumatoid arthritis, unspecifie d impression offered referral to rheumatologaustin merrill she will call back. Patient Care Teams Name Effective Dates (start - stop) Status Members No Information
--- OUTSIDE RECORDS SUMMARY | 2024-01-11 11:19 | XMS_ITS | Continuity of Care Document ---
Author Organization [facility] Address [address] [facility] [place] [address] Phone Care Team Providers Care Electrician Office Name Role Phone Will Charles MASON Unavailable Unavailabl e Advance Directives Directive Yes / No Effective Date File Name No Information Encounters Encounter Description Practice Location Reason(s) For Visit Diagnoses Date Provider Providers Copied on Encounter [facility], [address] [place] [address], [id number], [place] tel:[phone] [facility] [place] No Information Will Charles. [address] [facility] [place], [place], [id number], [place]. tel:[phone] Family History Family Member Type Diagnosis Age At Onset No Information Payers Payer name Insurance type Covered alliance party ID Authoriza tion(s) No Information Social History Type Description Quantity Date Captured Comments Alcohol Use Details Unknown Caffeine Use Details Unknown Tobacco Use Status No Information Smoking Status No Information Sex Female Chief Complaint And Reason For Visit No Information Reason For Referral Reason For Referral No Information Plan Of Treatment Date Type Action Status Goal Update Social History. Due o n due Goal Zoster vaccine (1st). Due on due Goal Height. Due on d ue Goal Review Allergy List. Due on due Goal PHQ-9. Due on du e Goal Hepatitis C screening. Due o n due Goal Unhealthy drug use screening . Due on due Goal Weight. Due on d ue Goal Tobacco Use. Due on 024 due Goal Medication Reconciliation. D ue on due History Of Present Illness Encounter Date Complaint History Of Prese nt Illness No Information Functional Status Date Functional Assessmen t No Information Instructions Date Instruction Additional Infor mation No Information Assessments Type Assessment Date No Information Patient Care Teams Name Effective Dates (start - stop) Status Members No Information
[2025-01-14 04:52] VITALS: BP 139/63; RESP 18; TEMP 36.6; O2SAT 92; BMI 40.7
--- NOTE | 2025-01-14 05:03 | ED.GENADULT ---
HPI - General Adult General Chief complaint: Weakness Stated complaint: weakness Time Seen by Provider: 01/14/25 05:06 History of Present Illness HPI narrative: Patient is a 79-year-old woman who lives in assisted living at the [facility] who presents for generalized weakness. She is present in the past for generalized weakness. She said she had a rough day yesterday and has not been eating well. She typically gets up twice a night to urinate in the 2nd time tonight the patient was unable to get a completely up. She called defer an 80 and the aide found her sitting on the edge of the bed. The patient slid down the side of the bed onto the floor but does not feel any hip or pelvic pain. She has no signs of any fractures. Patient states that she is just generally weak. No palpitations no chest pain no shortness of breath no nausea no vomiting. Related Data Home Medications ?Medication ?Instructions ?Recorded ?Confirmed Lactobacillus acidophilus 0.5 mg 100 mmu cells PO DAILY 12/22/21 10/18/24 (100 million cell) tablet cholecalciferol (vitamin D3) 50 50 mcg PO DAILY 01/16/22 10/18/24 mcg (2,000 unit) capsule multivitamin 1 tab PO QAM 01/16/22 10/18/24 prednisone 5 mg tablet 7.5 mg PO DAILY 12/29/23 10/18/24 sulfasalazine 500 mg tablet 1 g PO BID 12/29/23 10/18/24 ascorbic acid (vitamin C) 500 mg 500 mg PO QDAY 10/18/24 10/18/24 tablet folic acid 1 mg tablet 1 mg PO QDAY 10/18/24 10/18/24 leflunomide 20 mg tablet 20 mg PO DAILY 10/18/24 10/18/24 Previous Rx's ?Medication ?Instructions ?Recorded diclofenac sodium 1 % topical gel 2 g topical QID PRN #100 grams 10/25/23 (Voltaren Arthritis Pain) potassium chloride 10 mEq 10 meq PO DAILY #90 caps 12/10/23 capsule,extended release ferrous sulfate 325 mg (65 mg 325 mg PO DAILY #100 tabs 01/18/24 iron) tablet valganciclovir 450 mg tablet 450 mg PO DAILY #90 tabs 05/10/24 pregabalin 50 mg capsule 50 mg PO BID #180 caps 08/09/24 rosuvastatin 5 mg tablet 5 mg PO HS #90 tabs 10/10/24 nystatin 100,000 unit/gram topical 1 applic topical BID #30 grams 11/08/24 powder furosemide 40 mg tablet 40 mg PO DAILY #90 tabs 11/09/24 duloxetine 60 mg capsule,delayed 60 mg PO DAILY #90 caps 11/22/24 release metoprolol succinate 25 mg 25 mg PO BID #180 tabs 11/22/24 tablet,extended release 24 hr cefuroxime axetil 250 mg tablet 250 mg PO BID #14 tabs 12/26/24 apixaban 5 mg tablet (Eliquis) 2.5 mg (1/2 x 5 mg) PO BID #90 tabs 01/04/25 hydrocodone 5 mg-acetaminophen 325 1 tab PO BID PRN pain #60 tabs 01/05/25 mg tablet sulfamethoxazole 800 1 tab PO BID #10 tabs 01/14/25 mg-trimethoprim 160 mg tablet (Bactrim DS) Allergies Allergy/AdvReac Type Severity Reaction Status Date / Time NSAIDS (Non-Steroidal Allergy Severe GI bleed Verified 12/19/24 13:26 Anti-Inflamma terbinafine Allergy Intermediate Headache Verified 12/19/24 13:26 levofloxacin AdvReac Severe tendon Verified 12/19/24 13:26 rupture Review of Systems Status of ROS: Reports: 10 or more systems reviewed and unremarkable except as noted in History and below [facility] Medical History Pressure ulcer of other site, stage 4 ?L89.894 - Pressure ulcer of other site, stage 4 (ICD-10) Hematoma ?T14.8XXA - Other injury of unspecified body region, initial encounter (ICD-10) Congestive heart failure ?I50.9 - Heart failure, unspecified (ICD-10) Non-ST elevated myocardial infarction (non-STEMI) ?I21.4 - Non-ST elevation (NSTEMI) myocardial infarction (ICD-10) 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 - Aneurysm of artery of lower extremity (ICD-10) Obesity (BMI 30.0-34.9) ?E66.9 - Obesity, unspecified (ICD-10) Alcohol use disorder ?F10.90 - Alcohol use, unspecified, uncomplicated (ICD-10) Pulmonary embolism ?I26.99 - Other pulmonary embolism without acute cor pulmonale (ICD-10) Gastrointestinal hemorrhage ?K92.2 - Gastrointestinal hemorrhage, unspecified (ICD-10) Aortic stenosis, severe ?I35.0 - Nonrheumatic aortic (valve) stenosis (ICD-10) History of kidney stones ?Z87.442 - Personal history of urinary calculi (ICD-10) Mitral annular calcification ?I05.9 - Rheumatic mitral valve disease, unspecified (ICD-10) Surgical History Status post transcatheter aortic valve replacement (TAVR) using bioprosthesis ?Z95.3 - Presence of xenogenic heart valve (ICD-10) S/P cataract extraction ?Z98.49 - Cataract extraction status, unspecified eye (ICD-10) S/P cholecystectomy ?Z90.49 - Acquired absence of other specified parts of digestive tract (ICD-10) History of left nephrectomy ?Z90.5 - Acquired absence of kidney (ICD-10) History of lumbar fusion (04/2010) ?Z98.1 - Arthrodesis status (ICD-10) History of lithotripsy ?Z98.890 - Other specified postprocedural states (ICD-10) Family History Mother Breast cancer, Onset Age: 70 Sister Breast cancer, Onset Age: 35 Social History Narrative: Has been living at [facility] an intrapartum apartment with a personal chef present for 4 hours on 3 days a week. Manages her own medications. Code status is DNR DNI What is your current living situation?: I presently have a place to live Problems where you live: no known problems Problems where you live details: n/a In the past 12 months, utilities in danger of being shut off: no In past 12 months, lack of transportation kept you from medical appts, meetings, work, or getting things needed for daily living: no In the past 12 mos, have been you worried that your food would run out before you had money to buy more?: never true In the past 12 mos, the food you bought just didn't last and you didn't have money to buy more?: never true Highest level of school completed/degree received: high school graduate Smoking Status: Never smoker Do you use any of these nicotine containing products: None Second hand tobacco smoke exposure: Yes How often do you have a drink containing alcohol: never How often do you have six or more drinks on one occasion: Never AUDIT-C Alcohol total score: 0 Non-prescribed substance use: denies use Caffeine: Yes How often does anyone, including family, friends and others, physically hurt you: never How often does anyone, including family, friends and others, insult or talk down to you: never How often does anyone, including family, friends and others, threaten you with harm: never How often does anyone, including family, friends and others, scream or curse at you: never service: No Exam Narrative: Exam Narrative: EXAM GENERAL: Patient appears comfortable and well. She is obese. EYES: No scleral icterus. LYMPH: No supraclavicular or cervical lymphadenopathy. SKIN: Visible skin seen during exam normal or with benign process only. EXT: No dependent lower extremity pedal edema. HEART: Regular rate and rhythm with no murmurs, rubs, or gallops. LUNGS: Clear to auscultation bilaterally with no crackles or wheezes. ABD: Soft, non tender, non distended. PSYCH: Good eye contact, speech is not pressured. Const: Vital Signs, click to edit/add: Vital Signs - 24 hr 01/14/25 04:52 Temperature 97.8 F Respiratory Rate 18 Blood Pressure [Le ft Forearm] 139/63 Pulse Oximetry 92 Oxygen Delivery Me thod Room Air Course Course ED Course: Mom my primary exam shows no obvious etiology for her symptoms I do note normal vital signs. Will start with a comprehensive metabolic panel CBC UA EKG and reassess. Vital Signs Vital signs: Initial Vital Signs Temperature 97.8 F 01/14/25 04:52 Temperature Source Temporal Artery Scan 01/14/25 04:52 Respiratory Rate 18 01/14/25 04:52 Blood Pressure 139/63 01/14/25 04:52 Blood Pressure Mean 88 01/14/25 04:52 Blood Pressure Position Semi-Fowlers 01/14/25 04:52 Pulse Oximetry 92 01/14/25 04:52 Oxygen Delivery Method Room Air 01/14/25 04:52 Vital Signs Temperature 97.8 F 01/14/25 04:52 Respiratory Rate 18 01/14/25 04:52 Blood Pressure 139/63 01/14/25 04:52 Pulse Oximetry 92 01/14/25 04:52 Oxygen Delivery Method Room Air 01/14/25 04:52 Temperature 97.8 F 01/14/25 04:52 Respiratory Rate 18 01/14/25 04:52 Blood Pressure 139/63 01/14/25 04:52 Pulse Oximetry 92 01/14/25 04:52 Oxygen Delivery Method Room Air 01/14/25 04:52 Medical Decision Making MDM Narrative Medical decision making narrative: Patient presents from the [facility] with weakness. Her hemoglobin is 9.9 which is fairly stable. Her electrolytes are reasonable. She does have evidence of a urinary tract infection. She does not believe she is injured she is able move all of her extremities without any difficulty. She does not think she will have any trouble regaining her usual level of functioning. I did treat with Bactrim for the next 5 days and recommended continued care at the [facility]. Show continue current medications and follow-up at her next scheduled visit. Lab Data Labs: Lab Results 01/14/25 01/14/25 Range/Units 05:11 05:20 WBC 9.26 (4.50-11.00) K/uL RBC 3.16 L (4.00-5.20) m/uL Hgb 9.9 L (12.0-16.0) gm/dL Hct 32.2 L (33.0-51.0) % MCV 102 H (80-100) fL MCH 31 (26-34) pg MCHC 31 L (32-36) gm/dL RDW Coeff of Navneet 15.3 (11.5-15.5) % Plt Count 123 L (140-440) K/uL Neut % (Auto) 75.5 H (42.0-72.0) % Lymph % (Auto) 14.7 L (20-44) % [place] % (Auto) 8.6 (0.0-11.0) % Eos % (Auto) 0.4 (0.0-7.0) % Baso % (Auto) 0.4 (0.0-3.0) % Neut # (Auto) 7.00 (1.7-7.0) K/uL Lymph # (Auto) 1.40 (0.90-2.90) K/uL [place] # (Auto) 0.80 (0.00-0.90) K/UL Eos # (Auto) 0.04 (0.00-0.50) K/uL Baso # (Auto) 0.04 (0.00-0.30) K/uL Abs Immat Gran (auto) 0.04 (0.00-0.30) K/uL Imm/Tot Granulo (auto) 0.4 % Sodium 136 (135-149) mmol/L Potassium 4.1 (3.6-5.1) mmol/L Chloride 105 (96-114) mmol/L Carbon Dioxide 27 (20-32) mmol/L Anion Gap 4 L (7-15) mEq/L BUN 25 (7-30) mg/dL Creatinine 0.8 (0.5-1.5) mg/dL Estimated Creat Clear 38.97 Estimated GFR 76 ml/min Glucose 101 (60-115) mg/dL Calcium 9.3 (8.4-10.6) mg/dL Total Bilirubin 0.6 (0.1-1.5) mg/dL AST 36 H (12-35) U/L ALT 19 (4-35) U/L Alkaline Phosphatase 119 (40-150) U/L Total Protein 6.2 (6.0-8.3) g/dL Albumin 3.4 (3.3-5.0) g/dL Urine Color Yellow (Yellow) Urine Appearance Slightly Cloudy A (Clear) Urine pH 6.0 (5.0-8.5) Ur Specific [place] 1.020 (1.000-1.030) Urine Protein 1+ A (Negative) Urine Glucose (UA) Negative (Negative) Urine Ketones Negative (Negative) Urine Blood Negative (Negative) Urine Nitrite Positive A (Negative) Urine Bilirubin Negative (Negative) Urine Urobilinogen 0.2 (0.2-1.0) Ur Leukocyte Esterase 1+ A (Negative) Discharge Plan Discharge Clinical Impression: Urinary tract infection Patient Disposition: Home, Self-Care Condition: Stable Instructions: Urinary Tract Infection in Older Adults (ED) Additional Instructions: Bactrim as directed Continue current care Follow-up with your doctor as needed. Activity Level: No Restrictions Discharge Diet: Regular Prescriptions: New sulfamethoxazole-trimethoprim [Bactrim DS] 800-160 mg tablet 1 tab PO BID Qty: 10 0RF No Action prednisone 5 mg tablet 7.5 mg PO DAILY sulfasalazine 500 mg tablet 1 g PO BID Rx Instructions: give with food (meal/snack) cholecalciferol (vitamin D3) 50 mcg (2,000 unit) capsule 50 mcg PO DAILY multivitamin Tablet 1 tab PO QAM folic acid 1 mg tablet 1 mg PO QDAY ascorbic acid (vitamin C) 500 mg tablet 500 mg PO QDAY leflunomide 20 mg tablet 20 mg PO DAILY Lactobacillus acidophilus 0.5 mg (100 million cell) tablet 100 mmu cells PO DAILY diclofenac sodium [Voltaren Arthritis Pain] 1 % gel 2 g topical QID PRNQty: 100 0RF Rx Instructions: apply to single elbow, wrist or hand; for hand includes palm/fingers/back of hand ferrous sulfate 325 mg (65 mg iron) Tablet 325 mg PO DAILY Qty: 100 0RF potassium chloride 10 mEq capsule, extended release 10 meq PO DAILY Qty: 90 3RF valganciclovir 450 mg tablet 450 mg PO DAILY Qty: 90 3RF pregabalin 50 mg capsule 50 mg PO BID Qty: 180 3RF rosuvastatin 5 mg tablet 5 mg PO HS Qty: 90 3RF nystatin 100,000 unit/gram powder 1 applic topical BID Qty: 30 2RF furosemide 40 mg tablet 40 mg PO DAILY Qty: 90 1RF metoprolol succinate 25 mg tablet extended release 24 hr 25 mg PO BID Qty: 180 3RF duloxetine 60 mg capsule,delayed release(DR/EC) 60 mg PO DAILY Qty: 90 1RF cefuroxime axetil 250 mg tablet 250 mg PO BID Qty: 14 0RF Eliquis 5 mg tablet 2.5 mg PO BID Qty: 90 2RF hydrocodone-acetaminophen 5-325 mg tablet 1 tab PO BID PRN (Reason: pain) Qty: 60 0RF Follow Up/Referrals: Kyle Healy MD [Primary Care Provider, Family Practice] Stand Alone Forms: [facility] Info Instructions
--- OUTSIDE RECORDS SUMMARY | 2025-01-14 05:10 | XMS_ITS | Clinical Summary ---
Author Organization Formerly [facility], [facility] Address [address] [place] [address] Care Team Providers Care Assistant Community Manager Name Role Phone Basilio Healy MD Primary Care Provider [phone] Source Comments You are receiving this document as you are listed as the primary care provider,follow-up provider, or the patient has been referred to you for consultation.This is in compliance with the Medicare and[facility] EHR Incentive Program,which states Providers who transition their patient to another setting of careor provider of care or refers their patient to another provider of care shouldprovide summary care record for each transition of care or referral. [facility] Allergies Active Allergy Reactions Criticality Noted Date Comments Levofloxacin Other, see comments 02/02/2022 Muscles snapped Nsaids Other, see comments High 03/18/2011 HUT Reaction: GI Bleeding; HUT Severity: High; HUT Noted: [id number] Terbinafine Muscle Aches/Weakness 02/02/2022 Medications Cholecalciferol 2000 [...] Patient receives drug assistance for Enbrel from [employer]. 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 Patient discontinued 05/2012. 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 wants patient to be on alendronate [...] Overview (04/28/2019): HGB 9.6 ON ADMIT TO [facility] 03/2009; ENDOSCOPY REVEALED SHALLOW GASTRIC [...] IIV3 (Trivalent) F luzone Highdose, 65+ Yrs (48881) 04/25/2019,03/09/2016,03/30/2014 Influenza IIV4 (Quadrivalent ) 0.5mL ([id number]) 04/23/2021,04/25/2019,04/19/2018,2015,03/30/2014,04/03/2013,04/15/2012,1 06/30/2009,04/15/2009,04/10/2003 Influenza IIV4 (Quadrivalent ) Fluzone, [...] 01/15/2025 2:00 PM CDT Appointment Rheumatology at [facility] [address] [phone] Man Sánchez MD [address] [place], [place] [id number] Health Maintenance Due Date Last Done Comments Medicare Annual Wellness Visit 1945 Tuberculosis Screening 1945 RSV Vaccine (1 - 1-dose 75+ series) 2022 Colonoscopy 10/27/2023 10/26/2018 (Comp leted), 11/12/2008 (Completed) COVID-19 Vaccine ( season) 2024 03/24/2022, 05/02/2021, 09/10/2020, Additional history exists Dexa 10/07/2024 10/07/2022, 0801/2018, 02/02/2018, Additional history exists Influenza Vaccine (#1) 2025 , 05/04/2022, 04/23/2021, Additional history exists DTaP/Tdap/Td Vaccine [...] not included. Patient Name: Tanner James Densitometer: My Friend[address] W Appt Dept/Resource: Granda Bone Density GRANDA [...] trabecular bone, and is derived from the [id number] changes of bone density embedded in the [...] Performed by Real Time PCR CLIA Number [id number] HCV Quant iu/ml <12 IU/ml HP CONVERSION Comment:CLIA Number [id number] HCV Quant Log iu/ml <1.08 Log IU/ml HP CONVERSION Comment: Performed at [facility], [address] [place] [id number] CLIA Number [id number] 12/12/2015 11:4 4 AM CDT 12/12/2015 3:01 PM CDT us Swapnil Henley MD LAB_[email or web address] Final Result HP CONVERSION from Last 3 Months or Most Recently Relevant to Health Maintenance Insurance MEDICARE [place] Advance Directives Documents on File Type Date 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
--- OUTSIDE RECORDS SUMMARY | 2025-01-14 05:10 | XMS_ITS | Clinical Summary ---
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 Patient discontinued 05/2012. 12/20/2012 start venlafaxine 37.5mg Osteopenia 12/07/2011 05/05/2023 Overview (10/10/2018): Search Marketing Analyst wants patient to be on alendronate indefinitely [...] Overview (11/13/2009): HGB 9.6 ON ADMIT TO [facility] [...] Encounters Date Type Department Care Team Description 01/11/2025 3:15 PM CDT Home Care Visit [facility] [address] [place] [address] Latosha Dimas, PT PT - OASIS DISCHARGE 01/11/2025 Home Care Visit [facility] [address] [place] [address] Latosha Dimas, PT CARE COORDINATION 01/04/2025 3:15 PM CDT Home Care Visit [facility] [address] [place] [phone] Latosha Dimas, PT PT - HOME VISIT 12/22/2024 Home Care Visit [facility] [address] [place] [address] Latosha Dimas, PT CARE COORDINATION 12/15/2024 3:15 PM CDT Home Care Visit [facility] [address] [place] [address] Latosha Dimas, PT PT - OASIS RECERTIFICATION 12/15/2024 Plan of Care Documentation [facility] [address] [place] [address] 12/13/2024 Home Care Visit [facility] [address] [place] [address], [place] [address] Antelmo Del Castillo, OT CARE COORDINATION 12/12/2024 1:30 PM CDT Home Care Visit [facility] [address] [place] [address], [place] [address] Antelmo Del Castillo, OT OT - DISCIPLINE DISCHARGE 12/11/2024 3:15 PM CDT Home Care Visit [facility] [address] [place] [address] Latosha Dimas, PT PT - HOME VISIT 12/09/2024 Home Care Visit [facility] [address] [place] [address], [place] [address] Latosha Dimas, PT CARE COORDINATION 12/07/2024 3:15 PM CDT Home Care Visit [facility] [address] [place] [address], [place] [address] Latosha Dimas, PT PT - HOME VISIT 12/07/2024 1:00 PM CDT Home Care Visit [facility] [address] [place] [address], [place] [address] Miguelina Guzman COTA OT - HOME VISIT 12/06/2024 Home Care Visit [facility] [address] [place] [address], [place] [address] Antelmo Del Castillo, OT CARE COORDINATION 12/04/2024 3:15 PM CDT Home Care Visit [facility] [address] [place] [address], [place] [address] Latosha Dimas, PT PT - HOME VISIT 12/04/2024 2:00 PM CDT Home Care Visit [facility] [address] [place] [address] Antelmo Del Castillo, OT OT - REASSESSMENT 12/04/2024 Travel 11/30/2024 3:15 PM CDT Home Care Visit [facility] [address] [place] [address] Latosha Dimas, PT PT - HOME VISIT 11/27/2024 3:15 PM CDT Home Care Visit [facility] [address] [place] [address] Latosha Dimas, PT PT - HOME VISIT 11/26/2024 Home Care Visit [facility] [address] [place] [address] Latosha Dimas, PT CARE COORDINATION 11/23/2024 3:15 PM CDT Home Care Visit [facility] [address] [place] [address] Latosha Dimas, PT PT - HOME VISIT 11/21/2024 Home Care Visit [facility] [address] [place] [address] Latosha Dimas, PT CARE TRANSITION NOTE 11/17/2024 1:15 PM CDT Home Care Visit [facility] [address] [place] [address] Miguelina Guzman COTA OT - HOME VISIT 11/16/2024 3:15 PM CDT Home Care Visit [facility] [address] [place] [address] Latosha Dimas, PT PT - REASSESSMENT 11/14/2024 1:30 PM CDT Home Care Visit [facility] [address] [place] [address] Miguelina Guzman COTA OT - HOME VISIT 11/13/2024 3:15 PM CDT Home Care Visit [facility] [address] [place] [address] Latosha Dimas, PT PT - HOME VISIT 11/13/2024 Home Care Visit [facility] [address] [place] [address] Latosha Dmias, PT CARE COORDINATION 11/09/2024 3:15 PM CDT Home Care Visit [facility] [address] [place] [address] Latosha Dimas, PT PT - HOME VISIT 11/09/2024 1:30 PM CDT Home Care Visit [facility] [address] [place] [address] Miguelina Guzman COTA OT - HOME VISIT 11/06/2024 3:15 PM CDT Home Care Visit [facility] [address] [place] [phone] Latosha Dimas, PT PT - HOME VISIT 11/06/2024 Home Care Visit [facility] [address] [place] [phone] Latosha Dimas, PT CARE COORDINATION 11/02/2024 3:15 PM CDT Home Care Visit [facility] [address] [place] [phone] Latosha Dimas, PT PT - HOME VISIT 10/31/2024 Orders Only [facility] [address] [place], [place] [phone] Renae Pruett NP <No scans attached> 10/30/2024 3:15 PM CDT Home Care Visit [facility] [address] [place] [phone] Latosha Dimas, PT PT - HOME VISIT 10/30/2024 10:45 AM CDT Home Care Visit [facility] [address] [place] [phone] Antelmo Del Castillo, OT OT - INITIAL ASSESSMENT 10/30/2024 Home Care Visit [facility] [address] [place] [address], [place] [address] Latosha Dimas, PT CARE COORDINATION 10/30/2024 Travel 10/26/2024 10:45 AM CDT Home Care Visit [facility] [address] [place] [phone] Latosha Dimas, PT PT - HOME VISIT 10/24/2024 9:30 AM CDT Home Care Visit [facility] [address] [place] [phone] Francheska Cooley, PEEWEE SN - AIS-KDKI-TARI ASSESSMENT 10/24/2024 Orders Only [facility] [address] [place] [address] Milvia Almeida MD <No scans attached> 10/23/2024 1:00 PM CDT Home Care Visit [facility] [address] [place] [phone] Latosha Dimas, PT PT - HOME VISIT 10/23/2024 Home Care Visit [facility] [address] [place] [phone] Latosha Dimas, PT CARE COORDINATION 10/23/2024 Home Care Visit [facility] [address] [place] [phone] Shara Wesley, RN CARE COORDINATION 10/20/2024 Home Care Visit [facility] [address] [place] [phone] José Miguel Bentley, PT CARE COORDINATION 10/20/2024 Home Care Visit [facility] [address] [place] [phone] José Miguel Bentley, PT CARE COORDINATION 10/19/2024 9:30 AM CDT Home Care Visit [facility] [address] [place] [phone] José Miguel Bentley, PT PT - OASIS START OF CARE 10/19/2024 Plan of Care Documentation [facility] [address] [facility] [address] from Last 3 Months Immunizations Immunization Administration [...] on file 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 Gender Identity Not on file Sexual Orientation Not on file Obstetrics History Last Filed Vital Signs Vital Sign Reading Time Taken Comments Blood Pressure 120/82 01/11/2025 3:47 PM CDT Pulse 82 01/11/2025 3:47 PM CDT Temperature 36.2 C (97.2 F) 01/11/2025 3:47 PM CDT Respiratory Rate 16 01/11/2025 3:47 PM CDT Oxygen Saturation 97% 01/11/2025 3:47 PM CDT Inhaled Oxygen Concentration - - Weight 112.5 kg (248 lb) 10/24/2024 9:52 AM CDT stated Height 160 cm (5' 3) 02/18/2024 7:45 AM CDT Body Mass Index 43.93 02/18/2024 7:45 AM CDT Plan of Treatment Health Maintenance [...] 06/11/2023, 07/02/2022, Additional history exists Influenza Vaccine (#1) 2025 9, 04/19/2018, 03/09/2016, Additional history exists Zoster (shingles) series for age 50+ (1 of 2) 06/27/2025 Postponed from 1966 (Other) Pneumococcal series for age 50+ Completed 03/28/2016, 03/09/2016, 03/28/2015, Additional history exists DEXA/DXA scan for age 65+ Completed 2017, 02/27/2015, 11/26/2011 Hepatitis B series for 19+ Aged Out N o longer eligible based on patient's age to complete this topic Medical Devices Implanted Type 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 N/A: Spine SOFAMOR DANEK [id number]# / / Screw Locking 4x20mm Fine Tip Titnm - [id number] Implanted:Qty: 4 on 04/28/[address] [facility] Text A Cab [id number] # / / Screw Thin Crest 6.5x45mm - [id number] Implanted:Qty: 1 on 04/28/[address] [facility] SOFAMOR DANEK [id number]# / / Set Screw 3dx - [id number] Implanted:Qty: 4 on 04/28/[address] [facility] DANEK [id number]# / / Cnnctr Tsrh 3dx Sm - [id number] Implanted:Qty: 4 on 04/28/[address] [facility] Medtronic [id number]# / / Rios 3.5cmx5.5mm Pre-Cut - [id number] Implanted:Qty: 2 on 04/28/[address] [facility] DANEK [id number]# / / Kit Infuse Md - [id number] Implanted:Qty: 1 on 04/28/[address] [facility] Spine CORONA DANEK 10/26/2012 [id number]# / / [id number] Filler Bio [id number] - [id number] Implanted:Qty: 1 on 04/28/[address] [facility] CORONA BOLANDEK [id number]# / / [id number] Synfix Lr 26mm Implanted:Qty: 1 on 04/28/[address] [facility] Spine Text A Cab 08.802.017 S / / [id number] Description:SYNFIX LR 26MM Procedures Procedure Name Priority [...] bone density measurements were obtained using the poLight/[employer] bone densitometry system. COMPARISON: None. FINDINGS: SPINE: [...] bone density measurements were obtained using the Solaiemes/[employer] bone densitometry system. COMPARISON: None. 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 POLST 04/29/2021 POLST 02/02/2017 1:11 [...] Code Status Discussion: Reviewed Preferences Care Teams Staff Certified Nurse Midwife Relationship Specialty Start Date End Date Kyle Healy MD [address] [place] [address] PCP - General Family Practice 07/14/23 Swapnil Henley MD Rheumatology 12/20/12 Marlys Woodruff, RD [address] [address] Registered Dietitian Superintendent [employer] 07/05/18 Funmi Medina, STANLEY [address] [place] [address] Occupational Therapy 05/11/23 [facility] [address], [place] [address] 10/13/24 Mary Carpio Cardiology - Interventional 01/12/18 DR. Luo Dentistry - General 01/12/18
--- OUTSIDE RECORDS SUMMARY | 2025-01-14 05:10 | XMS_ITS | Data Portability ---
Author Organization [facility], [facility] Address [address] [place] [address] Assessment No assessment recorded. 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 Lamont Bravo MD [address] [place] [address], [phone], [facility] 2 16:32:18 Recurrent urinary tract infection 468068912 Active 2021 Managed with daily Bactrim Lamont Bravo MD [address] [place] [address], [phone], [facility] 2 16:32:42 Problem Notes None recorded. Procedures Surgical History Date Name Laterality Status Provider Name and Address Organization Details Recorded Time 07/11/19 22 NEPHRECTOMY, HAND ASSISTED LAPAROSCOPIC (SURG) completed Mary Monte [facility] 07/17/2021 09:46:04 Imaging Results None recorded. Procedure Notes None recorded. Medical Equipment None Reported. Allergies Allergen ID Allergen Name Allergen Category Reaction Reaction Severity Criticality Documentation Date Start Date Code Code System Note Provider Name and Address Organization Details Recorded Time 210378 Non-stero idal anti-infl ammatory agent (product) medicatio n Not available Not available Not available 03/20/2021 95190 005 SNOMED Lamont Bravo MD [address] [place] [address],IT [address] [place] [address], [phone], [facility] 1 16:22:56 783089 Levaquin medicatio n Not available Not available Not available 03/20/2021 [id number] 2 Bree Bravo MD [address] [place] [address],[facility] E [address] [place] [address], [phone], [facility] 1 16:23:24 729209 levofloxa giorgio medicatio n other Not available Not available 08/11/20212021 94130 Bree Bravo MD [address] [place] [address],[address], [place], [address], [facility] 2 16:06:24 [id number] terbinafi ne hydrochlo ride medicatio n fever headache Not available Not available Not available 08/11/20212019 76182 8 Bree Bravo MD [address] [place] [address] [place] [address], [phone], [facility] 2 16:06:24 Medications Name [...] Updated DateTime 08/11/2021 160.02 cm 28.3 kg/m2 68009.78 g Lamont Bravo MD [address] [place] [address] Urology 08/11/2021 16:06:06 Date Recorded Body height Body mass index (BMI) Body weight Provider Name and Address Organization Details Last Updated DateTime 03/20/2021 160.02 cm 33.7 kg/m2 94924.55 g Lamont Bravo MD [address] [place] [address],[address] [facility] 03/20/2021 16:22:47 Social History Question Answer Notes LastModified by [employer] Details LastModified Time Tobacco Smoking Status Never Smoker Lamont Bravo MD [address] [place] [address] Urology 03/20/2021 16:24:21 What Is Your Level Of Caffeine Consumption? Occasional Information not available 03/20/2021 What Was The Date Of Your Most Recent Tobacco Screening? 08/11/2021 Information not available 08/11/2021 Sex: Unknown Functional Status Question Answer Note LastModified by Organ[employer] Details LastModified Time Do you use any [...] polysaccharide PPV23 0 completed Lamont Bravo MD [address] [place] [address],[address], [place], [address], [facility] 08/11/2021 16:07:09 Pneumococcal conjugate PCV 13 5 completed Lamont Bravo MD [address] [place] [address],[address], [place], [address], [facility] 08/11/2021 16:07:09 pneumococcal polysaccharide PPV23 5 completed Lamont Bravo MD [address] [place] [address],[address], [address], [facility] 08/11/2021 16:07:09 Pneumococcal conjugate PCV 13 6 completed Lamont Bravo MD [address] [place] [address],[address], [address], [facility] 08/11/2021 16:07:10 pneumococcal polysaccharide PPV23 6 completed Lamont Bravo MD [address] [place] [address],[address], [address], [facility] 08/11/2021 16:07:10 Past Encounters Encounter ID Performer Location Encounter Start Date Encounter Closed Date Diagnosis/Indication Diagnosis SNOMED-CT Code Diagnosis ICD10 Code Diagnosis Note [id number] MD TAMIKA Hudson_Nara 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 This can be managed with a left nephrectom y. She'll need a pretty thorough preop and the procedure is needed soon and cannot wait a couple of months. [id number] MD Sondra Hudson 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 She can now stop [...] ID Guarantor Name 08/08/2021 1 [place]IC[place]: [employer] Tanner James [id number] 1 Tanner Brown Erika 08/08/2021 2 [employer] [place] (MEDICARE SUPPLEMENT) Tanner Serna Erika [id number] Tanner James Notes Date Note Type Note Provider Name and Address Organization Details Recorded Time 03/20/2021 text/html New patient here to discuss nephrectomy.She fell when she was at [employer] and that led to a CT scan that showed an atrophic kidney and a staghorn stone. She's had recurrent pyelonephritis as well.She had ESWL in 2002. She also has a poor aortic valve. Lamont Bravo MD [address] [place] [address],[address], [address], [facility] 03/20/2021 17:02:40 08/11/2021 text/html She has recovere d well from surgery. 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 Lamont Bravo MD [address] [place] [address],[address], [place], [address], [facility] 08/11/2021 16:37:50 OBGyn Episode No OBEpisode recorded.
--- OUTSIDE RECORDS SUMMARY | 2025-01-14 05:10 | XMS_ITS | Encounter Summary ---
Author Organization [facility] Address [address] [place] [address] Care Team Providers Care Sql Tech Name Role Phone Basilio Healy MD Primary Care Provider [phone] Reason for Visit * Reason Comments Refill Encounter Details Date Type Department Care Team (Late st Contact Info) Description 02/06/2016 Refill Rheumatology at [address] [place], [place] [address] Swapnil Henley MD Refill Social History Tobacco Use Types Packs/Day Years Used Date Smoking Tobacco: Never Assessed Comments No Sex and Gender Information Value Date Recorded Sex Assigned at Not on file Legal Sex Female 6:13 AM CDT Gender Identity Not on file Sexual Orientation Not on file documented as of this encounter Plan of Treatment Upcoming Encounters Date Type Department Care Team ([facility] Contact Info) Description 01/15/2025 2:00 PM CDT Appointment Rheumatology at [address] [address] Man Sánchez MD [address] [place] [address] documented as of this encounter Visit Diagnoses Not on filedocumented in this encounter Care Teams Sql Tech Relationship Specialty Start Date End Date Basilio Healy MD [facility] [address] [place] [address] PCP - General Family Practice 10/28/22 documented as of this encounter
--- OUTSIDE RECORDS SUMMARY | 2025-01-14 05:10 | XMS_ITS | Data Portability ---
Author Organization [place] - [facility], [facility], INTERNAL MEDICINE Address [address] [place] [address] Assessment No assessment recorded. Plan of Treatment Reminders Order Date Submit Date Provider Last Modified By Organization Details Last Modified Time Details Appointments None recorded. Lab folate, serum 2015 016 DBA_PATCH _[id number] [facility] - [facility], [address] [place] [address] , [address], [place], [address], 6 04:26:18 CBC w/ auto diff 2015 016 [facility] ([facility]) - [facility], [facility] [address] , [address], [place], [address], 6 04:26:18 CMP, serum or plasma 2015 016 [facility] - [facility], [facility] [address] [address], [address], [place], [address], 6 04:26:19 TSH, serum or plasma 2015 016 [facility] ([facility]) - [facility], [facility] Noemi Carpio, [address], [place], [address], 6 04:26:19 vitamin D, 1,25-dihydr oxy, serum 2015 016 [facility] - [facility], [address] , [address], [place], [address], 6 04:26:19 lipid panel, serum 2015 016 DBA_PATCH _[id number] [facility] - [facility], [address] , [address], [place], [address], 6 04:26:19 Referral None recorded. Procedures None recorded. Surgeries None recorded. Imaging US, echocardiog theo 2015 016 [facility], [facility] [address], [place], [address], 6 04:26:17 Medication Orders Remicade 100 mg intravenous solution 2015 [facility], [facility] [address], [place], [address], 6 04:26:16 Patient TargetsNo targets recorded. Patient Instructions Encounter Date Encounter Id Patient Instructions Last Modified By Organization Details Last Modified Time 05/14/2016 [id number] substance use disorder: care instructions [email or web address] Not available 05/15/2016 11:19:20 Reason for Referral [...] [facility] [address] [place] [address] Labor [facility] tor: Shelli Mcduffie Numbe r [id number] [place] [id number] -[id number] Not Available [facility] - Main Lab (Blood Not Drawn At This Location) Visit [facility] [place], [address], 06/12/2016 18:22:56 06/11/20 16 06/12/2016 TSH, serum or plasm a TSH 3.0 uIU/m L 0.5-4. 7 Testi ng Perfo rmed At: [facility] [facility] [address] [place] [address] Vaultive tor: Shelli Mcduffiee r [id number] [place]. [id number] - Not Available [facility] - Main Lab (Blood Not Drawn At This Location) Visit [facility] [place], [address], 06/12/2016 18:22:56 06/11/20 16 06/12/2016 vitam in [...] assay . Testi ng Perfo rmed At: [facility] [employer] [facility] [employer] [address] [place] [address] Labor [facility] tor: Shelli Mcduffie r [id number] [place] [id number] -01 Not Available [facility] Main Lab (Blood Not Drawn At This Location) Visit [facility] [place], [address], 06/12/2016 18:22:57 06/11/20 16 06/12/2016 CBC w/ auto diff WBC 13.0 K/uL 4.0-11 .0 high Not Available [facility] - Main Lab (Blood Not Drawn At This Location) Visit [facility] [place], [address], 06/12/2016 18:22:57 06/11/20 16 06/12/2016 CBC w/ auto diff RBC 5.15 M/uL 3.80-5 .10 high Not Available [facility] - Main Lab (Blood Not Drawn At This Location) Visit [facility] [place], [address], 06/12/2016 18:22:57 06/11/20 16 06/12/2016 CBC w/ auto diff hemoglobin 15.5 g/dL 11.5-1 5.5 Not Available [facility] - Main Lab (Blood Not Drawn At This Location) Visit [facility] [place], [address], 06/12/2016 18:22:57 06/11/20 16 06/12/2016 CBC w/ auto diff hematocrit 45.5 % 34.0-4 5.0 high Not Available [facility] Main Lab (Blood Not Drawn At This Location) Visit [facility] For [place], [address], 06/12/2016 18:22:57 06/11/20 16 06/12/2016 CBC w/ auto diff MCV 88.3 fL 80.0-1 00.0 Not Available [facility] - Main Lab (Blood Not Drawn At This Location) Visit [facility] [place], [address], 06/12/2016 18:22:57 06/11/20 16 06/12/2016 CBC w/ auto diff MCH 30.1 pg 27.0-3 4.0 Not Available [facility] - Main Lab (Blood Not Drawn At This Location) Visit [facility] [place], [address], 06/12/2016 18:22:57 06/11/20 16 06/12/2016 CBC w/ auto diff MCHC 34.1 g/dL 32.0-3 5.5 Not Available [facility] Main Lab (Blood Not Drawn At This Location) Visit [facility] [place], [address], 06/12/2016 18:22:57 06/11/20 16 06/12/2016 CBC w/ auto diff RDW 14.0 % 11.0-1 5.0 Not Available [facility] - Main Lab (Blood Not Drawn At This Location) Visit [facility] For [place], [address], 06/12/2016 18:22:57 06/11/20 16 06/12/2016 CBC w/ auto diff neutrophils 79.3 % 40.0-7 4.0 high Not Available [facility] - Main Lab (Blood Not Drawn At This Location) Visit [facility] [place], [address], 06/12/2016 18:22:57 06/11/20 16 06/12/2016 CBC w/ auto diff lymphocytes 8.9 % 19.0-4 8.0 low Not Available [facility] - Main Lab (Blood Not Drawn At This Location) Visit [facility] [place], [address], 06/12/2016 18:22:57 06/11/20 16 06/12/2016 CBC w/ auto diff monocytes 9.9 % 4.0-13 .0 Not Available [facility] - Main Lab (Blood Not Drawn At This Location) Visit [facility] [place], [address], 06/12/2016 18:22:57 06/11/20 16 06/12/2016 CBC w/ auto diff eosinophils 1.4 % 0.0-7. 0 Not Available [facility] - Main Lab (Blood Not Drawn At This Location) Visit [facility] [place], [address], 06/12/2016 18:22:57 06/11/20 16 06/12/2016 CBC w/ auto diff basophils 0.5 % 0.0-2. 0 Not Available [facility] - Main Lab (Blood Not Drawn At This Location) Visit [facility] [place], [address], 06/12/2016 18:22:57 06/11/20 16 06/12/2016 CBC w/ auto diff platelet count 168 K/uL 130-40 0 Testi ng Perfo rmed At: [facility] [address] [place] [address] Labor at[facility] D[facility] tor: Shelli McduffieIA Numbe r [id number] [place] [id number] -01 Not Available [facility] - Main Lab (Blood Not Drawn At This Location) Visit [facility] [place], [address], 06/12/2016 18:22:57 06/11/20 16 06/12/2016 lipid panel , serum cholesterol 243 mg/dL <200 high Not Available [facility] - Main Lab (Blood Not Drawn At This Location) Visit [facility] [place], [address], 06/12/2016 18:22:57 06/11/20 16 06/12/2016 lipid panel , serum triglyceride s 193 mg/dL <150 high Not Available [facility] - Main Lab (Blood Not Drawn At This Location) Visit [facility] [place], [address], 06/12/2016 18:22:57 06/11/20 16 06/12/2016 lipid panel , serum HDL cholesterol 60 mg/dL >39 Not Available [facility] - Main Lab (Blood Not Drawn At This Location) Visit [facility] [place], [address], 06/12/2016 18:22:57 06/11/20 16 06/12/2016 lipid panel , serum calc LDL chol 144 mg/dL <100 high Not Available [facility] - Main Lab (Blood Not Drawn At This Location) Visit [facility] [place], [address], 06/12/2016 18:22:57 06/11/20 16 06/12/2016 lipid panel , serum risk ratio LDL/HDL 2.41 ratio <3.22 Testi ng Perfo rmed At: [facility] [address] [place] [address] Labor atory [facility] tor: Shelli Mcduffie [id number] [place] [id number] -01 Not Available [facility] - Main Lab (Blood Not Drawn At This Location) Visit [facility] [place], [address], 06/12/2016 18:22:57 06/11/20 16 06/12/2016 CMP, serum or plasm a glucose 109 mg/dL 70-99 high Not Available [facility] - Main Lab (Blood Not Drawn At This Location) Visit [facility] [place], [address], 06/12/2016 18:22:58 06/11/20 16 06/12/2016 CMP, serum or plasm a BUN 20 mg/dL 8-23 Not Available [facility] - Main Lab (Blood Not Drawn At This Location) Visit [facility] [place], [address], 06/12/2016 18:22:58 06/11/20 16 06/12/2016 CMP, serum or plasm a creatinine 1.17 mg/dL 0.60-1 .30 Not Available [facility] - Main Lab (Blood Not Drawn At This Location) Visit [facility] [place], [address], 06/12/2016 18:22:58 06/11/20 16 06/12/2016 CMP, serum or plasm a eGFR amer. 55 mL/mi n/1.7 3 >60 low Not Available [facility] - Main Lab (Blood Not Drawn At This Location) Visit [facility] For [place], [address], 06/12/2016 18:22:58 06/11/20 16 06/12/2016 CMP, serum or plasm a eGFR non- amer. 48 mL/mi n/1.7 3 >60 low Not Available [facility] - Main Lab (Blood Not Drawn At This Location) Visit [facility] [place], [address], 06/12/2016 18:22:58 06/11/20 16 06/12/2016 CMP, serum or plasm a calc BUN/creat 17 ratio 6-28 Not Available [facility] - Main Lab (Blood Not Drawn At This Location) Visit [facility] [place], [address], 06/12/2016 18:22:58 06/11/20 16 06/12/2016 CMP, serum or plasm a sodium 143 mEq/L 133-14 6 Not Available [facility] - Main Lab (Blood Not Drawn At This Location) Visit [facility] [place], [address], 06/12/2016 18:22:58 06/11/20 16 06/12/2016 CMP, serum or plasm a potassium 4.3 mEq/L 3.5-5. 4 Not Available [facility] - Main Lab (Blood Not Drawn At This Location) Visit [facility] [place], [address], 06/12/2016 18:22:58 06/11/20 16 06/12/2016 CMP, serum or plasm a chloride 99 mEq/L 95-107 Not Available [facility] - Main Lab (Blood Not Drawn At This Location) Visit [facility] [place], [address], 06/12/2016 18:22:58 06/11/20 16 06/12/2016 CMP, serum or plasm a carbon dioxide 25 mEq/L 18-29 Not Available [facility] - Main Lab (Blood Not Drawn At This Location) Visit [facility] [place], [address], 06/12/2016 18:22:58 06/11/20 16 06/12/2016 CMP, serum or plasm a calcium 9.2 mg/dL 8.5-10 .5 Not Available [facility] - Main Lab (Blood Not Drawn At This Location) Visit [facility] [place], [address], 06/12/2016 18:22:58 06/11/20 16 06/12/2016 CMP, serum or plasm a protein, total 6.3 g/dL 6.1-8. 3 Not Available [facility] - Main Lab (Blood Not Drawn At This Location) Visit [facility] [place], [address], 06/12/2016 18:22:58 06/11/20 16 06/12/2016 CMP, serum or plasm a albumin 4.0 g/dL 3.5-5. 2 Not Available [facility] - Main Lab (Blood Not Drawn At This Location) Visit [facility] [place], [address], 06/12/2016 18:22:58 06/11/20 16 06/12/2016 CMP, serum or plasm a calc globulin 2.3 g/dL 1.9-3. 7 Not Available [facility] - Main Lab (Blood Not Drawn At This Location) Visit [facility] [place], [address], 06/12/2016 18:22:58 06/11/20 16 06/12/2016 CMP, serum or plasm a calc A/G ratio 1.7 ratio 1.0-2. 6 Not Available [facility] - Main Lab (Blood Not Drawn At This Location) Visit [facility] For [place], [address], 06/12/2016 18:22:58 06/11/20 16 06/12/2016 CMP, serum or plasm a bilirubin, total 0.7 mg/dL <=1.2 Not Available [facility] - Main Lab (Blood Not Drawn At This Location) Visit [facility] [place], [address], 06/12/2016 18:22:58 06/11/20 16 06/12/2016 CMP, serum or plasm a alkaline phosphatase 81 U/L 38-146 Not Available [facility] - Main Lab (Blood Not Drawn At This Location) Visit [facility] [place], [address], 06/12/2016 18:22:58 06/11/20 16 06/12/2016 CMP, serum or plasm a AST 44 U/L 9-40 high Not Available [facility] - Main Lab (Blood Not Drawn At This Location) Visit [facility] [place], [address], 06/12/2016 18:22:58 06/11/20 16 06/12/2016 CMP, serum or plasm a ALT 41 U/L 5-40 high Testi ng Perfo rmed At: [facility] [address] [place] [address] Labor atory Dire tor: Shelli McduffieIA Numbe r [id number] [place] [id number] -01 Not Available [facility] - Main Lab (Blood Not Drawn At This Location) Visit [facility] [place], [address], 06/12/2016 18:22:58 05/25/20 16 05/20/2016 US, echoc ardio gram No observ ation record ed. [email or web address] [facility] [address], [place], [address], 05/26/2016 17:55:40 06/16/20 16 XR, chest , 2 view No observ ation record ed. [email or web address] [facility] [address], [place], [address], 06/16/2016 15:05:56 08/05/19 17 XR, chest , 2 view No observ ation record ed. [email or web address] [facility] [address], [place], [address], 08/05/2016 14:53:38 Result Notes None recorded. Problems Name Problem SNOMED Code Status Onset Date Resolution Date Notes Provider Name and Address Organization Details Recorded Time Rheumatoid arthritis 78848003 Active Followed by Dr. Henley in [place] Esa Rachel, [address], [address], [facility], [facility]. 6 10:51:23 An[facility] 80502979 [facility]. 6 12:43:10 Alcoholism 7489391 Active 2015 sober since 2007 Esa Rachel, [address], [address], [facility], [facility]. 6 10:51:09 Diastolic heart failure 275879726 Active 2015 EF 70% Esa Rachel, [address], [address], [facility], [facility]. 6 19:25:07 Problem Notes None recorded. Procedures Surgical History Date Name Laterality Status Provider Name and Address Organization Details Recorded Time 01/27/20 16 Mammogram screening completed Luis Manuel Ignacio [facility]. 05/14/2016 12:47:41 06/28/19 11 Colonoscopy and biopsy completed Luis Manuelryland Pierre [facility]. 05/14/2016 12:48:03 Back Surgery, Lumbar completed Christina Kj [facility]. 05/13/2016 19:32:33 Cholecystectomy completed Christina Underwood [facility], [facility]. 05/13/2016 19:32:38 Cataract Surgery completed Luis Manuel Pierre [facility]. 05/14/2016 12:47:23 Tonsillectomy completed Luis Manuel Pierre [facility]. 05/14/2016 12:47:31 Imaging Results None recorded. Procedure Notes None recorded. Medical Equipment None Reported. Allergies Allergen ID Allergen Name Allergen Category Reaction Reaction Severity Criticality Documentation Date Start Date Code Code System Note Provider Name and Address Organization Details Recorded Time 7963 Non-stero idal anti-infl ammatory agent (product) medicatio n Not available Not available Not available 05/13/2016 08246 005 SNOMED Christina Underwood [facility]. 6 19:31:42 Medications Name Sig [...] Updated DateTime 6 74 /min 18 /min 453522. 25 g 162.56 cm 39.5 kg/m2 128/90 mm[Hg] Marcia Sykes [facility]. 6 12:41:18 Date Recorded Body height Heart rate Respiratory rate Body weight Body mass index (BMI) Systolic And Diastolic Provider Name and Address Organization Details Last Updated DateTime 6 162.56 cm 78 /min 18 /min 244872. 61 g 40.2 kg/m2 130/84 mm[Hg] [facility]. 6 10:47:34 Date Recorded Body height Heart rate Respiratory rate Body weight Body mass index (BMI) Systolic And Diastolic Provider Name and Address Organization Details Last Updated DateTime 6 162.56 cm 68 /min 18 /min 518619. 25 g 39.5 kg/m2 128/86 mm[Hg] [facility]. 6 15:13:21 Social History Question Answer Notes LastModified by [employer] Details LastModified Time Tobacco Smoking Status Never Smoker Christina moss, [facility]. 05/13/2016 19:32:21 Which Illicit Or Recreational Drugs Have You Used? None [email or web address] Information not available 05/13/2016 How Much Tobacco Do You Smoke? No Information not available 05/15/2016 How Many Years Have You Smoked Tobacco? 0 Information not available 05/15/2016 Sex: Unknown Functional Status Question Answer Note LastModified by [employer] Details LastModified Time What is your level of alcohol consumption? 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 Family History Relationship Description Onset Age of this Age Resolved Age Notes LastModified by Organization Details LastModified Time Mother Heart disease [email or web address] Not available 2015 19:32:15 Mother Malignant tumor of breast [email or web address] Not available 05/14 12:49:17 Father Malignant neoplasm of prostate Not available 05/14 12:49:30 Medical History No medical history recorded. Gynecological HistoryNo gynecological history recorded. Obstetrics History GPAL:G 0 P 0 0 0 0 Immunizations Vaccine Type Date Status Note Provider Nam e and Address Organization Details Recorded Time Influenza, split virus, quadrivalent, preservative 6 completed Luis Manuel moss, [facility]. 05/14/2016 12:49:44 Pneumococcal conjugate PCV 13 6 angel moss, [facility]. 05/14/2016 12:49:57 pneumococcal polysaccharide PPV23 5 angel moss, [facility]. 05/14/2016 12:50:21 Tdap 2 angel moss, [facility]. 05/14/2016 12:51:27 Past Encounters Encounter ID Performer Location Encounter Start Date Encounter Closed Date Diagnosis/Indication Diagnosis SNOMED-CT Code Diagnosis ICD10 Code Diagnosis Note [id number] Esa Rachel DO [facility] [address] [place] [address] 05/14/2016 12:27:14 05/14/2016 13:08:02 Rheumatoid arthritis 03278750 M06.9 I rewrote the prescripti on with the same directions as Dr. Henley and faxed original and mine to hospital. Essential hypertension 40060673 I10 Echo ordered, I am unclear why she is on lasix. OK to take as needed. Alcoholism 5146612 F10.2 0 In remission. [id number] RADHA Dave [facility] [address] [place] [address] 06/11/2016 10:31:34 06/11/2016 11:25:29 Diastolic heart failure 481509507 I50.30 Recent ECHO--appe ars to be stable with Lasix daily. Rheumatoid arthritis 698 56796 M06.9 Followed by Rheumatolo gy Dyspnea on exertion 6084 5006 R06.09 Labs today Could be poss. side effect of Remicade. Alcoholism 6234097 F10.2 0 Sober since 2007 [id number] RADHA Dave [facility] [address] [place] [address] 06/25/2016 14:47:51 06/25/2016 15:57:24 Pneumonia 997484139 J18.9 Improving. Finish out antibiotic s. Going [...] Guarantor Name 06/30/2016 2 MUTUAL AME James [id number] Tanner James 01/25/2017 1 [place]IC[place] Tanner James [id number] Tanner James Notes Date Note Type Note Provider Name and Address Organization Details Recorded Time 05/14/2016 text/html Lives in [facility] for 6 months then [place] for 6 months, Primary Doctor in [place] is Dr. Olguin. Her superintendent marine has been prescribing her infusions while in [place]. 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 Unfortunately, I was unaware of the recurrent infusion and it was only when they asked for an updated prescription did it come to light. She is here to establish with local physician and have physician with [facility] oversee her infusions. RA- Has been DX for 20 years. Hands, feet and knee are the main source of pain. She failed humira, then arencia, then actemra, then retuxin and now she started Remicade. She underwent the 2 loading doses and then came to [place] and needs the 3rd loading dose and [...] lasix nothing happens. Esa Rachel, DO [address] [facility], [place], [address], [facility] - [facility], [facility]. 05/15/2016 11:04:00 06/11/2016 text/html Lives in [facility] for 6 months then [place] for 6 months, Primary Doctor in [place] is Dr. Olguin. RA- Has been DX for 20 years. Hands, feet and knee are the main source of pain. She failed humira, then arencia, then actemra, then retuxin and now she started Remicade. She underwent the 2 loading doses and then came to [place] and needs the 3rd loading dose and [...] edema with daily Lasix. Julia moss, [facility], [facility]. 06/11/2016 11:22:59 06/25/2016 text/html Er F/U- Had pneumonia, is feeling better. SOB is better but still is getting winded easily. Fatigue persists. She still has 3 days of Doxycycline left. No fever. Julia moss, [facility], [facility]. 06/29/2016 16:44:54 OBGyn Episode No OBEpisode recorded.
[2025-01-14 05:18] LABS: Hematocrit 32.2 % (33.0-51.0); Hemoglobin* 9.9 gm/dL (12.0-16.0); Immature Granulocytes Abs Auto 0.04 K/uL (0.00-0.30); Immature Granulocytes Pct Auto 0.4 %; Mean Corpuscular HGB Conc 31 gm/dL (32-36); Mean Corpuscular Hemoglobin 31 pg (26-34); Mean Corpuscular Volume 102 fL (80-100); RDW Coefficient of Variation % 15.3 % (11.5-15.5); Red Blood Count 3.16 m/uL (4.00-5.20); White Blood Count* 9.26 K/uL (4.50-11.00)
[2025-01-14 05:25] LABS: Lymphocytes Absolute Auto 1.40 K/uL (0.90-2.90); Slide Review Reflex No
[2025-01-14 05:27] LABS: Appearance Urine Slightly Cloudy (Clear)
[2025-01-14 05:31] LABS: Albumin* 3.4 g/dL (3.3-5.0); Chloride* 105 mmol/L (96-114)
[2025-01-14 05:32] LABS: Potassium* 4.1 mmol/L (3.6-5.1); Sodium* 136 mmol/L (135-149)
[2025-01-14 05:34] LABS: Alanine Aminotransferase* 19 U/L (4-35); Anion Gap 4 mEq/L (7-15); Aspartate Amino Transferase* 36 U/L (12-35); Blood Urea Nitrogen* 25 mg/dL (7-30); Carbon Dioxide* 27 mmol/L (20-32); Creatinine* 0.8 mg/dL (0.5-1.5); Est. Creatinine Clearance* 38.97; Estimated Glomerular Filt Rate 76 ml/min
[2025-01-14 05:35] LABS: Alkaline Phosphatase* 119 U/L (40-150); Bilirubin Total* 0.6 mg/dL (0.1-1.5); Calcium* 9.3 mg/dL (8.4-10.6); Glucose* 101 mg/dL (60-115); Total Protein* 6.2 g/dL (6.0-8.3)
--- NOTE | 2025-01-14 06:06 | ED.NURSE ---
Pt states she has private paid for a wheelchair ride home before, back to [facility] at [place]. RN at [facility] was called and given report and knows that pt is positive for a UTI. Pt will get abx via their pharmacy service as well. RN and pt okay with plan of care. Dispatch called for ride, EMS arrival approx 0730 per Eder at dispatch.
== END 2025-01-14 07:38 | disposition home or self-care (01) ==
PROVIDERS: Emergency Provider Internal Medicine; PCP Family Medicine
DX: N39.0 Urinary tract infection, site not specified (principal)
CPT/HCPCS: 36415; 80053; 81001; 81003; 85025; 87086; 93005; 99283

== ENCOUNTER 2025-01-14 07:20 | Outpatient (CLI) | payer MEDICARE, OTHER, SELFPAY | END 2025-01-14 07:21 | disposition home or self-care (01) | PROVIDERS: PCP Family Medicine; Visit Provider Internal Medicine | DX: R53.1 Weakness (principal) | CPT/HCPCS: A0425; A0428 ==

== ENCOUNTER 2025-02-01 12:10 | Outpatient (CLI) | payer MEDICARE, OTHER, SELFPAY | END 2025-02-01 12:11 | disposition home or self-care (01) | PROVIDERS: PCP Family Medicine; Visit Provider Student in an Organized Health Care Education/Training Program | DX: R07.89 Other chest pain (principal) | CPT/HCPCS: A0425; A0433 ==

== ENCOUNTER 2025-02-01 12:58 | Emergency (ER) | payer MEDICARE, OTHER, SELFPAY ==
--- OUTSIDE RECORDS SUMMARY | 2025-01-15 14:00 | XMS_ITS | Encounter Summary ---
Author Organization [facility] Address [address] [place] [address] Care Team Providers Care Spa Supervisor Name Role Phone Basilio Healy MD Primary Care Provider [phone] Reason for Referral * (Routine) - New Request Specialty Diagnoses / Procedures Referred By Contac t Referred To Contact Diagnoses Primary osteoarthritis of both knees Procedures Triamcinolone Acet Inj Nos: (per 10 mg) Man Sánchez MD [address] [place] [address] Phone: tel: fax: Referral ID Status Reason Start Date Expiration Date V isits Requested Visits Authorized [id number] New Request 01/16/2025 04/17/2026 1 1 * (Routine) - New Request Specialty Diagnoses / Procedures Referred By Contac t Referred To Contact Diagnoses Acute pain of left shoulder Procedures Triamcinolone Acet Inj Nos: (per 10 mg) Man Sánchez MD [address] [place] [address] Phone: tel: fax: Referral ID Status Reason Start Date Expiration Date V isits Requested Visits Authorized [id number] New Request 01/16/2025 04/17/2026 1 1 Reason for Visit * Reason Comments Follow-up Encounter Details Date Type Department Care Team (Late st Contact Info) Description 01/15/2025 2:00 PM CDT Office Visit Rheumatology at [facility] [address] [address] Man Sánchez MD [address] [place] [address] Rheumatoid arthritis involving multiple joints (HRC) (Primary Dx); High risk medication use; Primary osteoarthritis of both knees; Current chronic use of systemic steroids; Acute pain of left shoulder Social History Tobacco Use Types Packs/Day Years [...] * Patient Instructions* Man Sánchez MD - 01/15/2025 2:00 PM CDT Longstanding history of seropositive rheumatoid arthritis and generalized osteoarthritis. Patient has been dependent on systemic prednisone. Was recently started on leflunomide 20 mg daily with improvement in the joint symptoms. Patient hasbeen able to slowly taper down prednisone. Currently on 5 mg daily. On sulfasalazine 2 tablets twice daily. No significant signs of active synovitis on physical exam. Recommend slow taper of prednisone by 2.5 mg every 2-4 weeks if tolerated. Will continue leflunomide 20 mg daily and sulfasalazine 2 tablets twice daily. Recommend folic acid daily. Recommend blood work every 3-4 months to monitor kidney, liver function and CBC. Patient received steroid injection in the left shoulder and left knee. Recommend using topical treatment like Voltaren gel or Aspercreme with lidocaine cream 3-4 times daily. Recommend using Tylenol together with the hydrocodone as needed for joint pain. History of osteoporosis. Recommend scheduling the 2nd Reclast infusion. Will repeat DEXA scan in a year to monitor bone mineral density. Recommend taking calcium and vitamin-D supplement daily. Return to clinic in 4 months for follow-up or sooner if needed. documented in this encounter Progress Notes * Man Sánchez MD - 01/15/2025 2:00 PM CDT Rheumatology Follow up Note Chief Complaint Patient presents with Follow-up HPI: Tanner James is a 79 y.o. female with medical history as stated below including longstanding history of seronegative inflammatory arthritis/rheumatoid arthritis and generalized osteoarthritis is coming today for follow-up. Patient has been dependent on systemic prednisone. Was on sulfasalazine 2 tablets twice daily with mild relief in her symptoms. On her last appointment she was started on leflunomide 20 mg daily together with sulfasalazine 2 tablets twice daily. Patient is seen improvement in her joint symptoms. Has been able to slowly taper down the systemic prednisone. Currently on 5 mg daily. Recently she fell on her buttock. Tried to catch herself with extended left arm. Has been complaining of discomfort in the left shoulder. Previous steroid injection in the knees was beneficial. Denies any fevers or chills. Denies any red, hot, swollen joints. On Reclast infusion. Had her 1st Reclast infusion last year, tolerated therapy well. Patient Active Problem List Diagnosis Psoriatic arthropathy [...] (HRC) Chronic cough DNR (do not resuscitate) Acute on chronic heart failure with preserved ejection fraction (HRC) Acute respiratory failure with hypoxia (HRC) Anticoagulated COPD (chronic obstructive pulmonary disease) (HR) History of pulmonary embolism NSTEMI (non-ST elevated myocardial infarction) (HR) Past Medical History: Diagnosis Date ETOH abuse went through rehab 2007 Gastritis 03/2009 Hypertension ([facility]) 04/13/2009 Kidney stone LBP (low back pain) Morbid obesity with BMI of 40.0-44.9, adult ([facility]) 11/15/2015 Pneumonia 12/10/2016 with PE Pulmonary embolism ([facility]) 12/14/2016 Rheumatoid arthritis(714.0) ([facility]) 12/25/2008 Shoulder impingement 04/03/2013 Past Surgical History: Procedure Laterality Date COLONOSCOPY W/ POLYPECTOMY ([facility]) 10/26/2018 2 specimens (5 polyp). 3 year follow up ESOPHAGOGASTRODUODENOSCOPY ([facility]) 04/14/09 eswl LUMBAR FUSION ([facility]) 04/2010 lami and fusion; Dr Corea Outpatient Encounter Medications as of 01/15/2025 Medication Sig Note Dispense Refill albuterol 2.5 mg/3 mL, 0.083%, (PROVENTIL) nebulizer solution 1 Vial (2.5 mg) by Nebulization routeevery 6 hours as needed for Wheezing. (Patient not taking: Reported on 01/15/2025) 180 mL 11 Apixaban (ELIQUIS OR) 2.5 mg two times a day. ascorbic acid (VITAMINC) 250 MG tablet Take 1 Tablet (250 mg) by mouth daily. Cholecalciferol 2000 UNITS Take 2,000 Int'l Units by mouth daily. DICLOFENAC SODIUM OP Apply 1 % topically every 4 hours. (Patient not taking: Reported on 01/15/2025) DULoxetine (CYMBALTA) 60 MG capsule Take 1 Capsule (60 mg) by mouth daily. ferrous gluconate (FERGON) 324 (38 Fe) MG tablet Take 1 Tablet (324 mg) by mouth daily. fluticasone-salmeterol (ADVAIR HFA) 115-21 mcg/actuation inhaler Inhale 2 Puffs two times a day. With spacer. Rinse mouth/gargle after use. (Patient not taking: Reported on 08/09/2023) 1 Each 11 folic acid 1 MG tablet Take 1 Tablet (1 mg) by mouth daily. 90 Tablet 3 furosemide (LASIX) 40 MG tablet Take 1 Tablet (40 mg) by mouth daily. 09/11/2024: Pt takes 80 mg daily leflunomide (ARAVA) 20 MG tablet Take 1 Tablet (20 mg) by mouth daily. 90 Tablet 2 metoprolol succinate (TOPROL XL) 25 MG 24 hour release tablet Take 1 Tablet (25 mg) by mouth two times a day. Multiple Vitamins-Minerals (MULTIVITAMIN ADULT OR) Take 1 tablet by mouth daily (every 24 hours). potassium chloride 10 MEQ controlled release capsule Take 1 Capsule (10 mEq) by mouth daily. predniSONE (DELTASONE) 5 MG tablet 7.5 mg daily. Decrease by 2.5 mg every 2-4 weeks if tolerated. 01/15/2025: Pt is currently taking 5 mg daily. 135 Tablet 1 pregabalin (LYRICA) 50 MG capsule Take 1 Capsule (50 mg) by mouth two times a day. Probiotic Product (SUPER PROBIOTIC OR) daily. rosuvastatin (CRESTOR) 5 MG tablet Take 1 Tablet (5 mg) by mouth daily. sulfaSALAzine (AZULFIDINE) 500 MG tablet Take 2 Tablets (1,000 mg) by mouth two times a day. 360 Tablet 2 valGANciclovir (VALCYTE) 450 MG tablet Take 1 Tablet (450 mg) by mouth daily. [DISCONTINUED] leflunomide (ARAVA) 20 MG tablet Take 1 Tablet (20 mg) by mouth daily. 90 Tablet 2 [DISCONTINUED] sulfaSALAzine (AZULFIDINE) 500 MG tablet Take 2 Tablets (1,000 mg) by mouth two times a day. 360 Tablet 2 No facility-administered encounter medications on file as of 01/15/2025. Allergies Allergen Reactions Nsaids Other, see comments HUT Reaction: GI Bleeding; HUT Severity: High; [facility] Noted: [id number] Levaquin [Levofloxacin] Other, see comments Muscles snapped [...] no murmur. Musculoskeletal Exam: Normal muscle bulk. No signs of active synovitis. No joint effusion. Mild tenderness in the left shoulder with abduction and internal rotation. Normal muscle strength in all 4 extremities. Skin: no rash Neurologic Exam: Nonfocal, normal gross motor movement, tone, and coordination. No tremor. Lab: Lab Results Component Value Date WBC 9.5 01/15/2025 RBC 3.04 (L) 01/15/2025 Hemoglobin 9.5 (L) 01/15/2025 HCT 30.7 (L) 01/15/2025 MCV 101.0 (H) 01/15/2025 RDW 15.7 (H) 01/15/2025 Platelets 127 (L) 01/15/2025 Lab Results Component Value Date AST (SGOT) 42 01/15/2025 Lab Results Component Value Date Creatinine 0.99 01/15/2025 Procedure note: Left shoulder steroid injection. After discussing the risks and benefits and taking verbal consent, area was cleaned with chlorhexidine/alcohol swab, ethyl chloride spray was used to numb the area. Patient received 40 mg of Kenalog mixed with 2 cc of lidocaine 1% in the left shoulder, posterior approach using 25-gauge -07/02 needle. Patient tolerated the procedure well, no complications. Band-Aid was applied. Procedure note: Left knee intra-articular steroid injections After discussing the risks and benefits and taking verbal consent, area was cleaned with chlorhexidine/alcohol swab, ethyl chloride spray was used to numb the area. Patient received 40 mg of Kenalog mixed with 2 cc of lidocaine 1% in the left knee, lateral approach using 25-gauge 1-07/02 needle. Patient tolerated the procedure well, no complications. Band-Aid was applied. Assessment and Plan: Longstanding history of seropositive rheumatoid arthritis and generalized osteoarthritis. Patient has been dependent on systemic prednisone. Was recently started on leflunomide 20 mg daily with improvement in the joint symptoms. Patient hasbeen able to slowly taper down prednisone. Currently on 5 mg daily. On sulfasalazine 2 tablets twice daily. No significant signs of active synovitis on physical exam. Recommend slow taper of prednisone by 2.5 mg every 2-4 weeks if tolerated. Will continue leflunomide 20 mg daily and sulfasalazine 2 tablets twice daily. Recommend folic acid daily. Recommend blood work every 3-4 months to monitor kidney, liver function and CBC. Presence of generalized osteoarthritis. There is a component of degenerative changes and rotator cuff tendinopathy in the left shoulder. Patient received steroid injection in the left shoulder and left knee. Recommend using topical treatment like Voltaren gel or Aspercreme with lidocaine cream 3-4 times daily. Recommend using Tylenol together with the hydrocodone as needed for joint pain. History of osteoporosis. Recommend scheduling the 2nd Reclast infusion. Will repeat DEXA scan in a year to monitor bone mineral density. Recommend taking calcium and vitamin-D supplement daily. Return to clinic in 4 months for follow-up or sooner if needed. Man Sánchez. Rheumatology Sheila Whatley 01/16/2025 This note consists of symbols derived from keyboarding, and voice recognition software. As a result, wrong word or '[id number]' substitutions may have occurred due to the inherent limitations of voice recognition software. There may be errors in the script that have gone undetected. Please consider this when interpreting information found in this chart. documented in this encounter Plan of Treatment Upcoming Encounters Date Type Department Care Team (Late st Contact Info) Description 05/14/2025 11:30 AM BIRD SITTER Appointment Rheumatology at [facility] [place] [address] Man Sánchez MD [address] [place] [address] Scheduled Orders Name Type Priority Associated Diagnoses Orde r Schedule ALT (SGPT) (every 3 months) Lab Routine Rheumatoid arthritis involving multiple joints (HRC) High risk medication use Every 3 Months for 4 Occurrences starting 01/15/2025 until 01/15/2026, 1 completed AST (every 3 months) Lab Routine Rheumatoid arthritis involving multiple joints (HRC) High risk medication use Every 3 Months for 4 Occurrences starting 01/15/2025 until 01/15/2026, 1 completed CBC -W/Diff (every 3 months) Lab Routine Rheumatoid arthritis involving multiple joints (HRC) High risk medication use Every 3 Months for 4 Occurrences starting 01/15/2025 until 01/15/2026, 1 completed Creatinine / GFR (every 3 months) Lab Routine Rheumatoid arthritis involving multiple joints (HRC) High risk medication use Every 3 Months for 4 Occurrences starting 01/15/2025 until 01/15/2026, 1 completed documented as of this encounter Results * (ABNORMAL) Creatinine / GFR (every 3 months) (01/15/2025 2:47 PM CDT) Creatinine 0.99 0.55 - 1.02 mg/dL 01/15/2025 3:47 PM CDT [facility] GFR, Estimated 59(L) >60 mL/min/1.7 3m2 01/15/2025 3:47 PM CDT [facility] Blood Venipuncture / Unknown 01/15/2025 2:47 PM CDT 01/15/2025 2:47 PM CDT Narrative [facility] - 01/15/2025 3:47 PM CDT The National Kidney Disease Education Program suggests measuring Cystatin C in patients with eGFRcrea of 45 to 59 ml/min/1.73^2 who do not have other markers of kidney damage (i.e. elevated urine Albumin/Creatinine Ratio or a prior Cystatin C confirming the presence of chronic kidney disease). us Man Sánchez MD LAB_1 Final Result [facility] [id number] [place] [address] * AST (every 3 months) (01/15/2025 2:47 PM CDT) AST (SGOT) 42 16 - 46 U/L 01/15/2025 3:47 PM CDT [facility] Blood Venipuncture / Unknown 01/15/2025 2:47 PM CDT 01/15/2025 2:47 PM CDT Man Sánchez MD LAB_1 Final Result Performing Organization Address [facility] Co de Phone Number [address] * ALT (SGPT) (every 3 months) (01/15/2025 2:47 PM CDT) ALT (SGPT) 16 0 - 55 U/L 01/15/2025 3:47 PM CDT [facility] Blood Venipuncture / Unknown 01/15/2025 2:47 PM CDT 01/15/2025 2:47 PM CDT Man Sánchez MD LAB_1 Final Result Performing Organization Address [facility] Co de Phone Number [address] documented in this encounter Visit Diagnoses Diagnosis Rheumatoid arthritis involving multiple joints (HRC)- Primary High risk medication use Encounter for long-term (current) use of other medications Primary osteoarthritis of both knees Primary localized osteoarthrosis, lower leg Current chronic use of systemic steroids Acute pain of left shoulder documented in this encounter Care Teams Spa Supervisor Relationship Specialty Start Date End Date Basilio Healy MD [facility] [address] [place] [address] PCP - General Family Practice 10/28/22 documented as of this encounter
--- OUTSIDE RECORDS SUMMARY | 2025-01-15 14:40 | XMS_ITS | Encounter Summary ---
Author Organization [facility] Address [address] [place] [address] Care Team Providers Care Riffler Tender Name Role Phone Basilio Healy MD Primary Care Provider [phone] Encounter Details Date Type Department Care Team (Late Contact Info) Description 01/15/2025 2:40 PM CDT Lab Visit [facility] [address] [place] [address] Rheumatoid arthritis involving multiple joints [...] Department Care Team (Late Contact Info) Description 05/14/2025 11:30 AM FIBERGLASS GRINDER Appointment Rheumatology at [facility] [place] [address] [address] [address] [place], [place] [address] Man Sánchez MD [address] [place], [place] [id number] documented as of this encounter Procedures Procedure Name Priority Date/Time Associated Diagnosis Comments CBC AND DIFFERENTIAL PANEL Routine 01/15/2025 2:47 PM CDT Rheumatoid arthritis involving multiple joints (HRC) High risk medication use CREATININE / GFR Routine 01/15/2025 2:47 PM CDT Rheumatoid arthritis involving multiple joints (HRC) High risk medication use COMPLETE BLOOD COUNT-W/DIFF Routine 01/15/2025 2:47 PM CDT Rheumatoid arthritis involving multiple joints (HRC) High risk medication use ALT (SGPT) Routine 01/15/2025 2:47 PM CDT Rheumatoid arthritis involving multiple joints (HRC) High risk medication use AST Routine 01/15/2025 2:47 PM CDT Rheumatoid arthritis involving multiple joints (HRC) High risk medication use documented in this encounter Results * (ABNORMAL) Complete Blood Count-W/Diff (01/15/2025 2:47 PM CDT) [facility] WBC 9.5 3.5 - 10.5 x10(9)/L 01/15/2025 2:[facility] RBC 3.04(L) 3.90 - 5.03 x10(12)/L 01/15/2025 2:53 PM [facility] Hemoglobin 9.5(L) 12.0 - 15.5 g/dL 01/15/2025 2:53 PM [facility] HCT 30.7(L) 34.9 - 44.5 % 01/15/2025 2:53 PM [facility] MCV 101.0(H) 80.0 - 100.0 fL 01/15/2025 2:53 PM [facility] MCH 31.3 27.6 - 33.3 pg 01/15/2025 2:53 PM CDT [facility] MCHC 30.9(L) 31.5 - 35.2 g/dL 01/15/2025 2:53 PM [facility] RDW 15.7(H) 11.9 - 15.5 % 01/15/2025 2:53 PM [facility] Platelets 127(L) 150 - 450 x10(9)/L 01/15/2025 2:53 PM CDT [facility] Automated NRBC 0 <=0 /100 WBC 01/15/2025 2:53 PM CDT [facility] Neutrophil Absolute 7.4(H) 1.7 - 7.0 10(9)/L 01/15/2025 2:53 PM CDT [facility] Lymphocyte Absolute 1.4 1.0 - 4.8 10(9)/L 01/15/2025 2:53 PM CDT [facility] Monocyte Absolute 0.6 0.2 - 0.9 10(9)/L 01/15/2025 2:53 PM CDT [facility] Eosinophil Absolute 0.0 0.0 - 0.5 10(9)/L 01/15/2025 2:53 PM CDT [facility] Basophil Absolute 0.1 0.0 - 0.3 10(9)/L 01/15/2025 2:53 PM CDT [facility] Immature Granulocyte % 0.7(H) 0.0 - 0.5 % 01/15/2025 2:53 PM CDT [facility] Blood Venipuncture / Unknown 01/15/2025 2:47 PM CDT 01/15/2025 2:47 PM CDT Man Sánchez MD LAB_1 Final Result [facility] [address] [place] [address], [facility] * (ABNORMAL) Creatinine / GFR (every 3 months) (01/15/2025 2:47 PM CDT) Creatinine 0.99 0.55 - 1.02 mg/dL 01/15/2025 3:47 PM CDT [facility] GFR, Estimated 59(L) >60 mL/min/1.7 3m2 01/15/2025 3:47 PM CDT [facility] Blood Venipuncture / Unknown 01/15/2025 2:47 PM CDT 01/15/2025 2:47 PM CDT Narrative [facility] - 01/15/2025 3:47 PM CDT The National Kidney Disease Education Program suggests measuring Cystatin C in patients with eGFRcrea of 45 to 59 ml/min/1.73^2 who do not have other markers of kidney damage (i.e. elevated urine Albumin/Creatinine Ratio or a prior Cystatin C confirming the presence of chronic kidney disease). Man Sánchez MD LAB_1 Final Result Performing Organization Address [facility] Co de Phone Number [address] * AST (every 3 months) (01/15/2025 2:47 PM CDT) AST (SGOT) 42 16 - 46 U/L 01/15/2025 3:47 PM CDT [facility] Blood Venipuncture / Unknown 01/15/2025 2:47 PM CDT 01/15/2025 2:47 PM CDT Man Sánchez MD LAB_1 Final Result Performing Organization Address [facility] Co de Phone Number [address] * ALT (SGPT) (every 3 months) (01/15/2025 2:47 PM CDT) ALT (SGPT) 16 0 - 55 U/L 01/15/2025 3:47 PM CDT [facility] Blood Venipuncture / Unknown 01/15/2025 2:47 PM CDT 01/15/2025 2:47 PM CDT Result [facility] Man Sánchez MD LAB_1 Final Result Performing Organization Address [facility] Co de Phone Number [address] documented in this encounter Visit Diagnoses Diagnosis Rheumatoid arthritis involving multiple joints (HRC) High risk medication use Encounter for long-term (current) use of other medications documented in this encounter Care Teams Riffler Tender Relationship Specialty Start Date End Date Basilio Healy MD [facility] [address] [place] [address] PCP - General Family Practice 10/28/22 documented as of this encounter
--- OUTSIDE RECORDS SUMMARY | 2025-01-23 12:55 | XMS_ITS | Encounter Summary ---
[facility] Address [address] [place] [address] Care Team Providers Care Track Repairer Helper Name Role Phone Basilio Healy MD Primary Care Provider [phone] Reason for Visit * Reason Comments Infusion * Infusion Therapy Plan (Routine) - Authorized Specialty Diagnoses / Procedures Referred By Contac t Referred To Contact Rheumatology Diagnoses Age-related osteoporosis without current pathological fracture (HRC) Man Sánchez MD [address] [place] [address] Phone: tel: fax: Rheumatology at [facility] [address] [address] [place] [address] Phone: tel: fax: Referral ID Status Reason Start Date Expiration Date V isits Requested Visits Authorized [id number] Authorized 01/07/2023 04/07/2025 [id number] Encounter Details Date Type Department Care Team (Late st Contact Info) Description 01/23/2025 12:55 PM CDT - 01/23/2025 11:59 PM CDT Hospital Encounter [facility] [id number] [place] [address] [place] [address] [place] [phone] Age-related osteoporosis without current pathological fracture (HRC) [...] Sign Reading Time Taken Comments Blood Pressure 154/62 01/23/2025 2:29 PM CDT Pulse 83 01/23/2025 2:29 PM CDT Temperature 35.7 C (96.2 F) 01/23/2025 1:58 PM CDT Respiratory Rate - - Oxygen Saturation 100% 01/23/2025 1:58 PM CDT Inhaled Oxygen Concentration - - Weight - - Height - - Body Mass Index - - documented in this encounter Medications at Time of Discharge albuterol 2.5 mg/3 mL, 0.083%, (PROVENTIL) nebulizer solutionIndication s:Bronchiectasis, uncomplicated (HRC) 1 Vial (2.5 mg) by [...] 1 Tablet (324 mg) by mouth daily. fluticasone-salmet kaiden (ADVAIR HFA) 115-21 mcg/actuation inhaler Inhale 2 Puffs two times a day. With spacer. Rinse mouth/gargle after use. 1 Each 11 11/04/2022 folic acid 1 MG tabletIndications: Rheumatoid arthritis involving multiple joints (HRC),High risk medication use Take 1 Tablet (1 mg) by mouth daily. 90 Tablet 3 09/11/2024 03/17/20 26 furosemide (LASIX) 40 MG tablet Take 1 Tablet (40 mg) by mouth daily. 05/02/2023 leflunomide (ARAVA) 20 MG tabletIndications: Rheumatoid arthritis involving multiple joints (HRC),High risk medication use Take 1 Tablet (20 mg) by mouth daily. 90 Tablet 2 01/15/2025 metoprolol succinate (TOPROL XL) 25 MG 24 hour release tablet Take 1 Tablet (25 mg) by mouth two times a day. 03/23/2024 Multiple Vitamins-Minerals (MULTIVITAMIN ADULT OR) Take 1 tablet by mouth daily (every 24 hours). 11/04/2015 potassium chloride 10 MEQ controlled release capsule Take 1 Capsule (10 mEq) by mouth daily. predniSONE (DELTASONE) 5 MG tabletIndications: Rheumatoid arthritis involving multiple joints (HRC),High risk medication use 7.5 mg daily. Decrease by 2.5 mg every 2-4 weeks if tolerated. 135 Tablet 1 07/19/2024 pregabalin (LYRICA) 50 MG capsule Take 1 Capsule (50 mg) by mouth two times a day. Probiotic Product (SUPER PROBIOTIC OR) daily. rosuvastatin (CRESTOR) 5 MG tablet Take 1 Tablet (5 mg) by mouth daily. sulfaSALAzine (AZULFIDINE) 500 MG tabletIndications: Rheumatoid arthritis involving multiple joints (HRC),High risk medication use Take 2 Tablets (1,000 mg) by mouth two times a day. 360 Tablet 2 01/15/2025 valGANciclovir (VALCYTE) 450 MG tablet Take 1 Tablet (450 mg) by mouth daily. documented as of this encounter Progress Notes * Heidy Morales RN - 01/23/2025 1:30 PM CDT Dx: Osteoporosis Provider: Man Sánchez MD Is this the first dose: No. History of previous infusion reactions? no Premedications: None Patient arrived for #2 Reclast infusion. Vital signs stable. No signs of infection. CreatCl 67.5, Ca 9.4. No invasive dental work. Takes Ca and VitD supplements. Tolerated infusion well. Discharged in stable condition. Will return to clinic for next infusion asscheduled in 1 year . 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 Appointment Rheumatology at [facility] [place] [id number] [place] [address] [place], [place] [phone] Man Sánchez MD [address] [place], [place] [phone] documented as of this encounter Visit Diagnoses Diagnosis Age-related osteoporosis without current pathological fracture (HRC)- Primary Senile osteoporosis documented in this encounter Administered Medications Inactive Administered Medications - up to 3 most recent administrations Medication Order MAR Action Action Date Dose Rate Site sodium chloride 0.9% injection 10-60 mL 10-60 mL, Intravenous, PRN BEFORE&AFTER MEDICATIONS OR LAB DRAW, Line Patency, Starting on Wed01/23/25 at 1346, Until Wed01/23/25 at 1736, For 1 dayIndications:Age-related osteoporosis without current pathological fracture (HRC) Given 01/23/2025 1:58 PM CDT 10 mL zoledronic acid (RECLAST) premade IVPB 5 mg 5 mg, Intravenous, Administer over 20 Minutes, ONCE, On Wed01/23/25 at 1415, For 1 dose, HAZARDOUS DRUGIndications:Age-related osteoporosis without current pathological fracture (HRC) Started 01/23/2025 1:58 PM CDT 5 mg documented in this encounter Care Teams Track Repairer Helper Relationship Specialty Start Date End Date Basilio Healy MD [facility] [address] [place] [address] PCP - General Family Practice 10/28/22 documented as of this encounter
[2025-02-01] VITALS (26 sets, daily range): BP systolic 125–147; BP diastolic 51–68; PULSE 87–97; RESP 12–25; TEMP 36.2; O2SAT 96–98; BMI 44.3
--- OUTSIDE RECORDS SUMMARY | 2025-02-01 13:01 | XMS_ITS | Encounter Summary ---
Author Organization [facility] Address [address] [place] [address] Care Team Providers Care Planner Scheduler Name Role Phone Basilio Healy MD Primary Care Provider [phone] Reason for Visit * Reason Comments Refill Encounter Details Date Type Department Care Team (Late st Contact Info) Description 02/06/2016 Refill Rheumatology at [address] [place], [place] [phone] Swapnil Henley MD Refill Social History Tobacco [...] (Late Contact Info) Description 05/14/2025 11:30 AM MODERN DANCER Appointment Rheumatology at [facility] [address] [address] Man Sánchez MD [address] [place] [phone] documented as of this encounter Visit Diagnoses Not on filedocumented in this encounter Care Teams Planner Scheduler Relationship Specialty Start Date End Date Basilio Healy MD [facility] [address] [place] [address] PCP - General Family Practice 10/28/22 documented as of this encounter
--- OUTSIDE RECORDS SUMMARY | 2025-02-01 13:01 | XMS_ITS | Clinical Summary ---
Author Organization [facility] Address [address] [place] [address] Care Team Providers Care Photography Manager Name Role Phone Basilio Healy MD Primary Care Provider [phone] Source Comments You are receiving this document as you are listed as the primary care provider,follow-up provider, or the patient has been referred to you for consultation.This is in compliance with the Medicare and[facility] EHR Incentive Program,which states Providers who transition their patient to another setting of careor provider of care or refers their patient to another provider of care shouldprovide summary care record for each transition of care or referral. [facility] Allergies Active Allergy Reactions Criticality Noted Date Comments Levofloxacin Other, see comments 02/02/2022 Muscles snapped Nsaids Other, see comments High 03/18/2011 HUT Reaction: GI Bleeding; HUT Severity: High; HUT Noted: [id number] Terbinafine Muscle Aches/Weakness 02/02/2022 Medications Cholecalciferol 2000 [...] needed for Wheezing. 180 mL 11 04/23/20 Active Additional Information Patient not taking.Reported on 01/15/2025 ferrous gluconate (FERGON) 324 (38 Fe) MG tablet Take 1 Tablet (324 mg) by mouth daily. Active ascorbic acid (VITAMINC) 250 MG tablet Take 1 Tablet (250 mg) by mouth daily. Active fluticasone-salme terol (ADVAIR HFA) 115-21 mcg/actuation inhaler Inhale 2 Puffs two times a day. With spacer. Rinse mouth/gargle after use. 1 Each 11/05/19 Active Additional Information Patient not taking.Reported on 01/15/2025 furosemide (LASIX) 40 MG tablet Take 1 [...] tolerated. 135 Tablet 1 07/19/19 25 Active potassium chloride 10 MEQ controlled [...] 90 Tablet 3 09/12/19 25 026 Active sulfaSALAzine (AZULFIDINE) 500 MG tabletIndications :Rheumatoid arthritis involving multiple joints (HRC),High risk medication use Take 2 Tablets (1,000 mg) by mouth two times a day. 360 Tablet 2 07/21/20 25 Active leflunomide (ARAVA) 20 MG tabletIndications :Rheumatoid arthritis involving multiple joints (HRC),High risk medication use Take 1 Tablet (20 mg) by mouth daily. 90 Tablet 2 01/16/20 25 Active sulfaSALAzine (AZULFIDINE) 500 MG tabletIndications :Rheumatoid arthritis involving multiple joints (HRC),High risk medication use Take 2 Tablets (1,000 mg) by mouth two times a day. 360 Tablet 2 08/17/19 25 025 Discontin ued(*Med change OR same med OR reorder, new dose/dire ctions) leflunomide (ARAVA) 20 MG tabletIndications :Rheumatoid arthritis involving multiple joints (HRC),High risk medication use Take 1 Tablet (20 mg) by mouth daily. 90 Tablet 2 09/12/19 25 025 Discontin ued(*Med change OR same med OR reorder, new dose/dire ctions) Active Problems Patient Care Coordination No te Formatting of this note migh t be different from the original. Rheumatology- Patient receives drug assistance for Enbrel from [employer]. 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 Patient discontinued 05/2012. 12/20/2012 start venlafaxine 37.5mg Osteopenia 12/07/2011 Overview (04/28/2019): Business Account Leader wants patient to be on alendronate indefinitely [...] 0 11/13/2009 Overview (04/28/2019): Followed by Dr Sawpnil Henley: Sheila Burleson On MTX and prednisone. [...] Overview (04/28/2019): HGB 9.6 ON ADMIT TO [facility] 03/2009; ENDOSCOPY REVEALED SHALLOW GASTRIC ULCERATIONS [...] Encounters Date Type Department Care Team Description 01/23/2025 12:55 PM CDT - 01/23/2025 11:59 PM CDT Hospital Encounter [facility] [address] [place] [address] Aki Landon MD Age-related osteoporosis without current pathological fracture (HRC) (Primary Dx) 01/15/2025 2:40 PM CDT Lab Visit [facility] [address] [place] [address] Rheumatoid arthritis involving multiple joints (HRC); High risk medication use 01/15/2025 2:00 PM CDT Office Visit Rheumatology at [facility] [place] [address] [address] [address] [place] [address] Man Sánchez MD Rheumatoid arthritis involving multiple joints (HRC) (Primary Dx); High risk medication use; Primary osteoarthritis of both knees; Current chronic use of systemic steroids; Acute pain of left shoulder from Last 3 Months Immunizations Immunization Administration Dates Next Due Flu Vac (3+ yrs) 04/03/2013, 2,04/30/2010,2008,04/10/2003 Flu Vac Preserv Free (3+yrs) 04/30/2010,04/15/20 09 HepA Adult (19+ yrs) 10/20/2004,03/07/2004 HepA Ped/Adol (1-18 yrs) 10/20/2004 HepA, Pediatric (DO NOT USE; for MIIC only) 10/20/2004 IPV (Polio) 03/07/2004 Influenza IIV3 (Trivalent) F luzone Highdose, 65+ Yrs (85889) 04/25/2019,03/09/2016,03/30/2014 Influenza IIV4 (Quadrivalent ) 0.5mL (42864) 04/23/2021,04/25/2019,04/19/2018,2015,03/30/2014,04/03/2013,04/15/2012,1 06/30/2009,04/15/2009,04/10/2003 Influenza IIV4 (Quadrivalent ) Fluzone, [...] F) 01/23/2025 1:58 PM CDT Respiratory Rate 18 02/12/2014 11:42 AM CDT Oxygen Saturation 100% 01/23/2025 1:58 PM CDT Inhaled Oxygen Concentration - - Weight 90.7 kg (200 lb) 12/14/2023 1:49 PM CDT Height 160 cm (5' 3) 12/14/2023 1:49 PM CDT Body Mass Index 35.43 12/14/2023 1:49 PM CDT Plan of Treatment Upcoming Encounters Date Type Department Care Team (Late st Contact Info) Description 05/14/2025 11:30 AM DIRECTOR FAMILY Appointment Rheumatology at [facility] [place] [address] [place] [address] [place], [place] [phone] Man Sánchez MD [address] [place], [place] [phone] Health Maintenance Due Date Last Done Comments Medicare Annual Wellness Visit 1945 Tuberculosis Screening 1945 RSV Vaccine (1 - 1-dose 75+ series) 2022 Colonoscopy 10/27/2023 10/26/2018 (Comp leted), 11/12/2008 (Completed) COVID-19 Vaccine ( season) 2024 03/24/2022, 05/02/2021, 09/10/2020, Additional history exists Dexa 10/07/2024 10/07/2022, 08/01/2018, 02/02/2018, Additional history exists Influenza Vaccine (#1) 2025 3, 05/04/2022, 04/23/2021, Additional history exists DTaP/Tdap/Td Vaccine [...] Name Priority Date/Time Associated Diagnosis Comments COMPLETE BLOOD COUNT-W/DIFF Routine 01/15/2025 2:47 PM CDT Rheumatoid arthritis involving multiple joints (HRC) High risk medication use CREATININE / GFR Routine 01/15/2025 2:47 PM CDT Rheumatoid arthritis involving multiple joints (HRC) High risk medication use CBC AND DIFFERENTIAL PANEL Routine 01/15/2025 2:47 PM CDT Rheumatoid arthritis involving multiple joints (HRC) High risk medication use AST Routine 01/15/2025 2:47 PM CDT Rheumatoid arthritis involving multiple joints (HRC) High risk medication use ALT (SGPT) Routine 01/15/2025 2:47 PM CDT Rheumatoid arthritis involving multiple joints (HRC) High risk medication use DXA BONE DENSITY SPINE/HIP INC VERT FX ASSESS Routine 10/07/2022 3:48 PM CDT Rheumatoid arthritis involving multiple joints (HRC) High risk medication use Current chronic use of systemic steroids Screening for osteoporosis HEPATITIS C PCR QUANTITATIVE Routine 12/12/2015 11:44 AM CDT Encounter for long-term (current) use of medications from Last 3 Months or Most Recently Relevant to Health Maintenance Results * (ABNORMAL) Creatinine / GFR (every 3 months) (01/15/2025 2:47 PM CDT) Creatinine 0.99 0.55 - 1.02 mg/dL 01/15/2025 3:47 PM T [facility] GFR, Estimated 59(L) >60 mL/min/1.7 3m2 01/15/2025 3:47 PM [facility] Blood Venipuncture / Unknown 01/15/2025 2:47 PM CDT 01/15/2025 2:47 PM CDT Narrative [facility] - 01/15/2025 3:47 PM CDT The National Kidney Disease Education Program suggests measuring Cystatin C in patients with eGFRcrea of 45 to 59 ml/min/1.73^2 who do not have other markers of kidney damage (i.e. elevated urine Albumin/Creatinine Ratio or a prior Cystatin C confirming the presence of chronic kidney disease). us Man Sánchez MD LAB_1 Final Result [facility] [address] [place] [address], [facility] * (ABNORMAL) Complete Blood Count-W/Diff (01/15/2025 2:47 PM CDT) WBC 9.5 3.5 - 10.5 x10(9)/L 01/15/2025 2:53 PM [facility] RBC 3.04(L) 3.90 - 5.03 x10(12)/L 01/15/2025 2:53 PM [facility] Hemoglobin 9.5(L) 12.0 - 15.5 g/dL 01/15/2025 2:53 PM [facility] HCT 30.7(L) 34.9 - 44.5 % 01/15/2025 2:53 PM [facility] MCV 101.0(H) 80.0 - 100.0 fL 01/15/2025 2:53 PM [facility] MCH 31.3 27.6 - 33.3 pg 01/15/2025 2:53 PM [facility] MCHC 30.9(L) 31.5 - 35.2 g/dL 01/15/2025 2:53 PM [facility] RDW 15.7(H) 11.9 - 15.5 % 01/15/2025 2:53 PM [facility] Platelets 127(L) 150 - 450 x10(9)/L 01/15/2025 2:53 PM [facility] Automated NRBC 0 <=0 /100 WBC 01/15/2025 2:53 PM CDT [facility] Neutrophil Absolute 7.4(H) 1.7 - 7.0 10(9)/L 01/15/2025 2:53 PM CDT [facility] Lymphocyte Absolute 1.4 1.0 - 4.8 10(9)/L 01/15/2025 2:53 PM CDT [facility] Monocyte Absolute 0.6 0.2 - 0.9 10(9)/L 01/15/2025 2:53 PM CDT [facility] Eosinophil Absolute 0.0 0.0 - 0.5 10(9)/L 01/15/2025 2:53 PM CDT [facility] Basophil Absolute 0.1 0.0 - 0.3 10(9)/L 01/15/2025 2:53 PM CDT [facility] Immature Granulocyte % 0.7(H) 0.0 - 0.5 % 01/15/2025 2:53 PM CDT [facility] Blood Venipuncture / Unknown 01/15/2025 2:47 PM CDT 01/15/2025 2:47 PM CDT Man Sánchez MD LAB_1 Final Result Performing Organization Address [facility]/ZIP Co de Phone Number [place] [phone] * ALT (SGPT) (every 3 months) (01/15/2025 2:47 PM CDT) ALT (SGPT) 16 0 - 55 U/L 01/15/2025 3:47 PM CDT [facility] Blood Venipuncture / Unknown 01/15/2025 2:47 PM CDT 01/15/2025 2:47 PM CDT Man Sánchez MD LAB_1 Final Result Performing Organization Address [facility]/ZIP Co de Phone Number [facility] [address] [place] [phone] * AST (every 3 months) (01/15/2025 2:47 PM CDT) Pathologist [facility] AST (SGOT) 42 16 - 46 U/L 01/15/2025 3:47 PM CDT [facility] Blood Venipuncture / Unknown 01/15/2025 2:47 PM CDT 01/15/2025 2:47 PM CDT us Man Sánchez MD LAB_1 Final Result [facility] [address] [place] [address] * DXA Bone Density Spine/[employer]ip Inc Vert FX Assess (10/07/2022 3:48 PM CDT) [facility] DXA Hip Left Bone Mineral Density 0.825 [...] not included. Patient Name: Tanner James Densitometer: [employer] HORIZON W Appt Dept/Resource: [place] Bone Density [place] BONE Demographics Age: 77 y.o. Gender: Female [...] (/) (Not Scanned) N/A N/A N/A N/A *N/A [...] trabecular bone, and is derived from the [id number] changes of bone density embedded in the [...] Performed by Real Time PCR CLIA Number [id number] HCV Quant iu/ml <12 IU/ml HP CONVERSION Comment:CLIA Number [id number] HCV Quant Log iu/ml <1.08 Log IU/ml HP CONVERSION Comment: Performed at [facility], [address] [place] [address] CLIA Number [id number] 12/12/2015 11:4 4 AM CDT 12/12/2015 3:01 PM CDT Swapnil Henley MD LAB_1 Final Result HP CONVERSION from Last 3 Months or Most Recently Relevant to Health Maintenance Insurance MEDICARE [place] Advance Directives Documents on File Type Date Recorded 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
--- OUTSIDE RECORDS SUMMARY | 2025-02-01 13:01 | XMS_ITS | Clinical Summary ---
Author Organization [facility] Address [address] [place] [id number] Care Team Providers Care City Carrier Name Role Phone Swapnil Henley MD Unavailable Unavailable Marlys Woodruff William RD Unavailable [phone] Silvia Medinajackyuridia Garcia ANGEL Unavailable [phone] Kyle Healy MD Primary Care Provider [phone] Allergies Active Allergy Reactions Criticality Noted Date [...] by mouth once daily. 30 Capsule 03/23/20 Active furosemide (LASIX) 40 mg tabletIndications:H eart failure with preserved ejection fraction, unspecified HF chronicity (HC) [The details of the medication are not available because there are pending changes by a home health clinician.] 60 Tablet 03/23/20 Active Additional Information Patient taking differently:40 mg [...] a home health clinician.] 45 Tablet 03/23/20 Active Additional Information Patient taking differently: 5 mgOral Q AM, Reported on 10/24/2024 rosuvastatin (CRESTOR) 5 mg tabletIndications:D yslipidemia Take 1 Tablet (5 mg) by mouth at bedtime. 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 30 Tablet 03/23/20 Active pregabalin (LYRICA) 50 mg capsuleIndications: Chronic pain syndrome Take 1 Capsule (50 mg) by mouth two times daily. 60 Capsule 03/23/20 Active pregabalin (LYRICA) 50 mg capsuleIndications: Chronic pain syndrome TAKE 1 CAPSULE BY MOUTH TWICE DAILY 30 Capsule 5 03/30/20 Active folic acid 1 mg tablet Take [...] ventricle 11/10/2013 05/05/2023 Overview (11/10/2013): Echocardiogram 09/2013 [place]; Ejection fraction 65% H/O alcohol abuse 11/10/2013 05/05/2023 Overview (12/08/2013): Quit alcohol use 2007 Vitamin D deficiency 08/23/2013 023 Family history of breast can cer in first degree relative 05/14/2013 05/05/2023 Overview (05/14/2013): Mother, daughter: Stress to patient need for annual mammogram; annual physical exam 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 Patient discontinued 05/2012. 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 to be on alendronate indefinitely [...] (11/13/2009): HGB 9.6 ON ADMIT TO [facility] 03/2009; ENDOSCOPY REVEALED SHALLOW GASTRIC ULCERATIONS WITH [...] 01/11/2025 3:15 PM CDT Home Care Visit Formerly [facility] [address] [place] [id number] Latosha Dimas, PT PT - OASIS DISCHARGE 01/11/2025 Home Care Visit Formerly [facility] [address] [place] [address] Latosha Dimas, PT CARE COORDINATION 01/04/2025 3:15 PM CDT Home Care Visit Formerly [facility] [address] [place] [address] Latosha Dimas, PT PT - HOME VISIT 12/22/2024 Home Care Visit Formerly [facility] [address] [place] [address] Latosha Dimas, PT CARE COORDINATION 12/15/2024 3:15 PM CDT Home Care Visit Formerly [facility] [address] [place] [address] Latosha Dimas, PT PT - OASIS RECERTIFICATION 12/15/2024 Plan of Care Documentation Formerly [facility] [address] [place] [address] 12/13/2024 Home Care Visit Formerly [facility] [address] [place] [address] Antelmo Del Castillo, OT CARE COORDINATION 12/12/2024 1:30 PM CDT Home Care Visit Formerly [facility] [address] [place] [address] Antelmo Del Castillo, OT OT - DISCIPLINE DISCHARGE 12/11/2024 3:15 PM CDT Home Care Visit Formerly [facility] [address] [place] [address] Latosha Dimas, PT PT - HOME VISIT 12/09/2024 Home Care Visit Formerly [facility] [address] [place] [address] Latosha Dimas, PT CARE COORDINATION 12/07/2024 3:15 PM CDT Home Care Visit Formerly [facility] [address] [place] [address] Latosha Dimas, PT PT - HOME VISIT 12/07/2024 1:00 PM CDT Home Care Visit Formerly [facility] [address] [place] [address] Miguelina Guzman COTA OT - HOME VISIT 12/06/2024 Home Care Visit Formerly [facility] [address] [place] [address], [place] [address] Antelmo Del Castillo, OT CARE COORDINATION 12/04/2024 3:15 PM CDT Home Care Visit Formerly [facility] [address] [place] [address] Latosha Dimas, PT PT - HOME VISIT 12/04/2024 2:00 PM CDT Home Care Visit Formerly [facility] [address] [place] [address] Antelmo Del Castillo, OT OT - REASSESSMENT 12/04/2024 Travel 11/30/2024 3:15 PM CDT Home Care Visit Formerly [facility] [address] [place] [address] Latosha Dimas, PT PT - HOME VISIT 11/27/2024 3:15 PM CDT Home Care Visit Formerly [facility] [address] [place] [address] Latosha Dimas, PT PT - HOME VISIT 11/26/2024 Home Care Visit Formerly [facility] [address] [place] [address] Latosha Dimas, PT CARE COORDINATION 11/23/2024 3:15 PM CDT Home Care Visit Formerly [facility] [address] [place] [address] Latosha Dimas, PT PT - HOME VISIT 11/21/2024 Home Care Visit Formerly [facility] [address] [place] [address] Latosha Dimas, PT CARE TRANSITION NOTE 11/17/2024 1:15 PM CDT Home Care Visit Formerly [facility] [address] [place] [address] Miguelina Guzman COTA OT - HOME VISIT 11/16/2024 3:15 PM CDT Home Care Visit Formerly [facility] [address] [place] [address] Latosha Dimas, PT PT - REASSESSMENT 11/14/2024 1:30 PM CDT Home Care Visit Formerly [facility] [address] [place] [address] Miguelina Guzman COTA OT - HOME VISIT 11/13/2024 3:15 PM CDT Home Care Visit Formerly [facility] [address] [place] [address] Latosha Dimas, PT PT - HOME VISIT 11/13/2024 Home Care Visit Formerly [facility] [address] [place] [address] Latosha Dimas, PT CARE COORDINATION 11/09/2024 3:15 PM CDT Home Care Visit Formerly [facility] [address] [place] [address] Latosha Dimas, PT PT - HOME VISIT 11/09/2024 1:30 PM CDT Home Care Visit [facility]ly [facility] [address] [place] [address] Miguelina Guzman COTA OT - HOME VISIT 11/06/2024 3:15 PM CDT Home Care Visit Formerly [facility] [address] [place] [address] Latosha Dimas, PT PT - HOME VISIT 11/06/2024 Home Care Visit [facility]ly [facility] [address] [place] [address] Latosha Dimas, PT CARE COORDINATION 11/02/2024 3:15 PM CDT Home Care Visit Formerly [facility] [address] [place] [address] Latosha Dimas, PT PT - HOME VISIT from Last 3 Months Immunizations Immunization Administration [...] on file 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 Gender Identity Not on file Sexual Orientation [...] this topic Medical Devices Implanted Type Area Purification Supervisor Device Identifier Shelf Expiration Date Model / Serial / Lot Screw Tsrh Og Thin 6.5x50mm - [id number] Implanted:Qty: 3 on 04/28/2010 at [facility] N/A: Sp[facility] [id number] / / Screw Locking 4x20mm Fine Tip Titnm - [id number] Implanted:Qty: 4 on 04/28/2010 at [facility] [employer] [id number] # / / Screw Thin Crest 6.5x45mm - [id number] Implanted:Qty: 1 on 04/28/2010 at [facility] [id number] / / Set Screw 3dx - [id number] Implanted:Qty: 4 on 04/28/2010 at [facility] [id number]# / / Cnnctr Tsrh 3dx Sm - [id number] Implanted:Qty: 4 on 04/28/2010 at [facility] [employer] [id number]# / / Rios 3.5cmx5.5mm Pre-Cut - [id number] Implanted:Qty: 2 on 04/28/2010 at [facility] [id number]# / / Kit Infuse Md - [id number] Implanted:Qty: 1 on 04/28/2010 at [facility] 10/26/2012 [id number]# / / [id number] Filler Bio [id number] - [id number] Implanted:Qty: 1 on 04/28/2010 at [facility] [id number]# / / [id number] Synfix Lr 26mm Implanted:Qty: 1 on 04/28/2010 at [facility] Spine [employer] 08.802.017 S / / [id number] Description:SYNFIX LR 26MM Procedures Procedure Name Priority [...] bone density measurements were obtained using the Ridley bone densitometry system. COMPARISON: None. FINDINGS: SPINE: [...] bone density measurements were obtained using the [employer]/Hydrocapsule bone densitometry system. COMPARISON: None. 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 Luo Dentistry - General 01/12/18
[2025-02-01 13:26] LABS: Appearance Urine Cloudy (Clear)
--- NOTE | 2025-02-01 13:35 | ED.GENADULT ---
HPI - General Adult General Date Seen: 02/01/25 Chief complaint: Weakness Stated complaint: chest pain Time Seen by Provider: 02/01/25 13:05 History of Present Illness HPI narrative: Patient is a 79-year-old woman here by EMS. She lives at an assisted living in [place]. She says over the past several days she has been feeling progressively more weak. She is concerned about possible recurrent urinary tract infection as she has had a couple of UTIs in the recent month or so. This has been accompanied by feelings of weakness, she has not had any urinary symptoms fevers vomiting etcetera. Past few days she has also had some epigastric pain. She has not had much of an appetite. She is status post cholecystectomy. She was seen here on January 14 also for weakness and had a thorough evaluation including CT scan of the abdomen chest and pelvis which was unremarkable. Labs were normal at that time as well. She denies any other acute symptoms such as fevers, chills, focal weakness or other neurologic changes. She does note that the medics thought her eyes looked a little yellow. Review of her record shows prior TAVR, cholecystectomy, she does have a history of upper GI bleeding secondary to a ulcers. She is anticoagulated chronically on Eliquis due to history of pulmonary embolism. Remote history of alcohol use, none current. She does not smoke. Related Data Home Medications ?Medication ?Instructions ?Recorded ?Confirmed Lactobacillus acidophilus 0.5 mg 100 mmu cells PO DAILY 12/22/21 10/18/24 (100 million cell) tablet cholecalciferol (vitamin D3) 50 50 mcg PO DAILY 01/16/22 10/18/24 mcg (2,000 unit) capsule multivitamin 1 tab PO QAM 01/16/22 10/18/24 prednisone 5 mg tablet 7.5 mg PO DAILY 12/29/23 10/18/24 sulfasalazine 500 mg tablet 1 g PO BID 12/29/23 10/18/24 ascorbic acid (vitamin C) 500 mg 500 mg PO QDAY 10/18/24 10/18/24 tablet folic acid 1 mg tablet 1 mg PO QDAY 10/18/24 10/18/24 leflunomide 20 mg tablet 20 mg PO DAILY 10/18/24 10/18/24 Previous Rx's ?Medication ?Instructions ?Recorded diclofenac sodium 1 % topical gel 2 g topical QID PRN #100 grams 10/25/23 (Voltaren Arthritis Pain) ferrous sulfate 325 mg (65 mg 325 mg PO DAILY #100 tabs 01/18/24 iron) tablet valganciclovir 450 mg tablet 450 mg PO DAILY #90 tabs 05/10/24 pregabalin 50 mg capsule 50 mg PO BID #180 caps 08/09/24 rosuvastatin 5 mg tablet 5 mg PO HS #90 tabs 10/10/24 nystatin 100,000 unit/gram topical 1 applic topical BID #30 grams 11/08/24 powder furosemide 40 mg tablet 40 mg PO DAILY #90 tabs 11/09/24 duloxetine 60 mg capsule,delayed 60 mg PO DAILY #90 caps 11/22/24 release metoprolol succinate 25 mg 25 mg PO BID #180 tabs 11/22/24 tablet,extended release 24 hr apixaban 5 mg tablet (Eliquis) 2.5 mg (1/2 x 5 mg) PO BID #90 tabs 01/04/25 hydrocodone 5 mg-acetaminophen 325 1 tab PO BID PRN pain #60 tabs 01/05/25 mg tablet potassium chloride 10 mEq 10 meq PO DAILY #90 caps 01/22/25 capsule,extended release Allergies Allergy/AdvReac Type Severity Reaction Status Date / Time NSAIDS (Non-Steroidal Allergy Severe GI bleed Verified 02/01/25 15:23 Anti-Inflamma terbinafine Allergy Intermediate Headache Verified 02/01/25 15:23 levofloxacin AdvReac Severe tendon Verified 02/01/25 15:23 rupture Review of Systems Status of ROS: Reports: 6 or more systems reviewed and unremarkable except as noted in History and below [facility] Medical History (Updated 02/01/25 @ 16:52 by Christina Dixon MD) Urinary tract infection ?N39.0 - Urinary tract infection, site not specified (ICD-10) Chronic pain ?G89.29 - Other chronic pain (ICD-10) Pressure ulcer of other site, stage 4 ?L89.894 - Pressure ulcer of other site, stage 4 (ICD-10) Hematoma ?T14.8XXA - Other injury of unspecified body region, initial encounter (ICD-10) Congestive heart failure ?I50.9 - Heart failure, unspecified (ICD-10) Non-ST elevated myocardial infarction (non-STEMI) ?I21.4 - Non-ST elevation (NSTEMI) myocardial infarction (ICD-10) 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 - Aneurysm of artery of lower extremity (ICD-10) Obesity (BMI 30.0-34.9) ?E66.9 - Obesity, unspecified (ICD-10) Alcohol use disorder ?F10.90 - Alcohol use, unspecified, uncomplicated (ICD-10) Pulmonary embolism ?I26.99 - Other pulmonary embolism without acute cor pulmonale (ICD-10) Gastrointestinal hemorrhage ?K92.2 - Gastrointestinal hemorrhage, unspecified (ICD-10) Aortic stenosis, severe ?I35.0 - Nonrheumatic aortic (valve) stenosis (ICD-10) History of kidney stones ?Z87.442 - Personal history of urinary calculi (ICD-10) Mitral annular calcification ?I05.9 - Rheumatic mitral valve disease, unspecified (ICD-10) Surgical History (Updated 01/16/25 @ 16:56 by Randa Renee ~ RN, RN) Status post transcatheter aortic valve replacement (TAVR) using bioprosthesis ?Z95.3 - Presence of xenogenic heart valve (ICD-10) S/P cataract extraction ?Z98.49 - Cataract extraction status, unspecified eye (ICD-10) S/P cholecystectomy ?Z90.49 - Acquired absence of other specified parts of digestive tract (ICD-10) History of left nephrectomy ?Z90.5 - Acquired absence of kidney (ICD-10) History of lumbar fusion (04/2010) ?Z98.1 - Arthrodesis status (ICD-10) History of lithotripsy ?Z98.890 - Other specified postprocedural states (ICD-10) Family History Mother Breast cancer, Onset Age: 70 Sister Breast cancer, Onset Age: 35 Social History Narrative: Has been living at [facility] an intrapartum apartment with a personal care aide present for 4 hours on 3 days a week. Manages her own medications. Code status is DNR DNI What is your current living situation?: I presently have a place to live Problems where you live: no known problems Problems where you live details: n/a In the past 12 months, utilities in danger of being shut off: no In past 12 months, lack of transportation kept you from medical appts, meetings, work, or getting things needed for daily living: no In the past 12 mos, have been you worried that your food would run out before you had money to buy more?: never true In the past 12 mos, the food you bought just didn't last and you didn't have money to buy more?: never true Highest level of school completed/degree received: high school graduate Smoking Status: Never smoker Do you use any of these nicotine containing products: None Second hand tobacco smoke exposure: Yes How often do you have a drink containing alcohol: never How often do you have six or more drinks on one occasion: Never AUDIT-C Alcohol total score: 0 Non-prescribed substance use: denies use Caffeine: Yes How often does anyone, including family, friends and others, physically hurt you: never How often does anyone, including family, friends and others, insult or talk down to you: never How often does anyone, including family, friends and others, threaten you with harm: never How often does anyone, including family, friends and others, scream or curse at you: never service: No Exam Narrative: Exam Narrative: Vital signs reviewed In general, alert, nontoxic elderly woman. She does look somewhat fatigued. Head: Normocephalic, atraumatic. Eyes: There is perhaps a suggestion of scleral icterus although this may just be age related. Conjunctiva otherwise normal. ENT: Mucous membranes moist. Neck: Supple without adenopathy. Heart: Regular rate and rhythm without murmur. Lungs: Clear. No increased work of breathing, crackles or wheezes. Abdomen: Obese, soft. No significant tenderness in the majority of the abdomen. Perhaps some mild epigastric and right upper quadrant tenderness. No rebound guarding or rigidity. Extremities: Chronic lymphedema, no significant erythema or tenderness. Neurologic: Alert, conversant. Speech fluent, face symmetric. Moves all extremities equally. Skin: Warm, dry well perfused. Affect: Normal. Const: Vital Signs, click to edit/add: Vital Signs - 24 hr 02/01/25 13:08 02/01/25 13:24 02/01/25 13:30 Temperature 97.1 F L Pulse Rate Pulse Rate [Pulse Oximeter] 88 Respiratory Rate 20 15 20 Blood Pressure Blood Pressure [Ri ght Upper Arm] 147/62 H Pulse Oximetry 98 Oxygen Delivery Me thod Room Air 02/01/25 13:45 02/01/25 14:00 02/01/25 14:15 Temperature Pulse Rate Pulse Rate [Pulse Oximeter] Respiratory Rate 24 23 25 H Blood Pressure Blood Pressure [Ri ght Upper Arm] Pulse Oximetry Oxygen Delivery Me thod 02/01/25 14:30 02/01/25 14:45 02/01/25 15:00 Temperature Pulse Rate Pulse Rate [Pulse Oximeter] Respiratory Rate 22 23 23 Blood Pressure Blood Pressure [Ri ght Upper Arm] Pulse Oximetry Oxygen Delivery Me thod 02/01/25 15:23 02/01/25 15:30 02/01/25 15:41 Temperature Pulse Rate 87 Pulse Rate [Pulse Oximeter] Respiratory Rate 16 21 23 Blood Pressure 140/58 H Blood Pressure [Ri ght Upper Arm] Pulse Oximetry 97 Oxygen Delivery Me thod Course Course ED Course: On arrival patient had an EKG which by my review shows a sinus rhythm with a ventricular rate of 88. No acute ST segment changes. T-waves are unremarkable. A catheterized urine sample was obtained. I looked back through prior records and recent visits. She has been seen several times recently once for chest pain, once for weakness, once for UTI. Recent urine cultures have grown an E coli which has been treated appropriately. No markers for sepsis today. She had recent CT scan of chest abdomen pelvis, so I certainly think it is reasonable start with labs today and if those are reassuring that I do not know that there is an indication for repeat imaging. Bilirubin was 0.6 as of January 14. Labs are notable for slightly more significant elevations in transaminases as well as an elevated alk-phos, which was normal in November. She also has an elevated CRP of almost 18 and an elevated sed rate of 92. She does carry a prior diagnosis of rheumatoid arthritis but this is been well-controlled for 20 years, not sure that that would cause these significant elevations in inflammatory markers. I did elect to repeat her abdominal CT to look for any evidence of biliary dilation or inflammatory changes, lipase was [address] scan by my review did not show any peripancreatic inflammation. Radiology read her scan as essentially stable compared to previous, she has some chronic findings which are unchanged but nothing acute to explain her symptoms. TSH was normal, urinalysis here was once again-0-2 2 white cells 0-2 red cells. She has grown out E coli and previous cultures, but I think we should wait for the culture as she does not have any urinary symptoms to strongly suggest urinary tract infection. I did do a viral swab and that was negative. I reviewed all of this with her. Discussed that there may well be further evaluation that can be done as an outpatient, I do think that some of this is deconditioning, which she acknowledges. A couple of years ago she says she walked with a cane but had a few falls and has been wheelchair bound for a while now. She was working with physical therapy but discontinued a couple of months ago due to insurance, and has not kept up with exercises and her strength is deteriorated as a result. She also notes some depression around her current state in terms of not being able to get up and around. She is on Cymbalta, but there may be benefit to addressing depression more directly. She has an appointment with Dr. Tubbs, her primary doctor tomorrow. She does feel that she can manage at home until then would prefer to go home. Will discharge at this time, reviewed reasons to return. Vital Signs Vital signs: Initial Vital Signs Temperature 97.1 F L 02/01/25 13:08 Temperature Source Temporal Artery Scan 02/01/25 13:08 Pulse Rate 88 02/01/25 13:08 Respiratory Rate 20 02/01/25 13:08 Blood Pressure 147/62 H 02/01/25 13:08 Blood Pressure Mean 90 02/01/25 13:08 Blood Pressure Position Sitting 02/01/25 13:08 Pulse Oximetry 98 02/01/25 13:08 Oxygen Delivery Method Room Air 02/01/25 13:08 Vital Signs Temperature 97.1 F L 02/01/25 13:08 Pulse Rate 88 02/01/25 13:08 Respiratory Rate 20 02/01/25 13:08 Blood Pressure 147/62 H 02/01/25 13:08 Pulse Oximetry 98 02/01/25 13:08 Oxygen Delivery Method Room Air 02/01/25 13:08 Temperature 97.1 F L 02/01/25 13:08 Pulse Rate 87 02/01/25 15:41 Respiratory Rate 23 02/01/25 15:41 Blood Pressure 140/58 H 02/01/25 15:41 Pulse Oximetry 97 02/01/25 15:41 Oxygen Delivery Method Room Air 02/01/25 13:08 Medical Decision Making Lab Data Lab results reviewed: Yes I reviewed the patient's lab results Labs: Lab Results 02/01/25 02/01/25 Range/Units 13:07 13:45 WBC 9.77 (4.50-11.00) K/uL RBC 3.19 L (4.00-5.20) m/uL Hgb 10.0 L (12.0-16.0) gm/dL Hct 32.9 L (33.0-51.0) % MCV 103 H (80-100) fL MCH 31 (26-34) pg MCHC 30 L (32-36) gm/dL RDW Coeff of Navne[place] 18.8 H (11.5-15.5) % Plt Count 84 L (140-440) K/uL Neut % (Auto) 83.1 H (42.0-72.0) % Lymph % (Auto) 11.6 L (20-44) % [place] % (Auto) 4.5 (0.0-11.0) % Eos % (Auto) 0.3 (0.0-7.0) % Baso % (Auto) 0.3 (0.0-3.0) % Neut # (Auto) 8.10 H (1.7-7.0) K/uL Lymph # (Auto) 1.10 (0.90-2.90) K/uL [place] # (Auto) 0.40 (0.00-0.90) K/UL Eos # (Auto) 0.03 (0.00-0.50) K/uL Baso # (Auto) 0.03 (0.00-0.30) K/uL Abs Immat Gran (auto) 0.02 (0.00-0.30) K/uL Imm/Tot Granulo (auto) 0.2 % ESR 92 H (2-20) mm/hr Sodium 135 (135-149) mmol/L Potassium 3.8 (3.6-5.1) mmol/L Chloride 107 (96-114) mmol/L Carbon Dioxide 22 (20-32) mmol/L Anion Gap 6 L (7-15) mEq/L BUN 27 (7-30) mg/dL Creatinine 1.0 (0.5-1.5) mg/dL Estimated Creat Clear 38.97 Estimated GFR 58 ml/min Glucose 100 (60-115) mg/dL Lactate 1.0 (0.5-1.9) mmol/L Calcium 9.7 (8.4-10.6) mg/dL Magnesium 2.3 (1.5-2.6) mg/dL Total Bilirubin 1.1 (0.1-1.5) mg/dL Direct Bilirubin 1.1 H (0.0-0.5) mg/dL AST 123 H (12-35) U/L ALT 84 H (4-35) U/L Alkaline Phosphatase 231 H (40-150) U/L Troponin I 0.03 (0.01-0.04) ng/mL C-Reactive Protein 17.4 H (0.5-1.0) mg/dL Total Protein 6.8 (6.0-8.3) g/dL Albumin 3.6 (3.3-5.0) g/dL Lipase 258 (23-300) U/L TSH 2.430 (0.270-4.200) uIU/mL Urine Color Corinne A (Yellow) Urine Appearance Cloudy A (Clear) Urine pH 6.0 (5.0-8.5) Ur Specific [place] 1.020 (1.000-1.030) Urine Protein 3+ A (Negative) Urine Glucose (UA) Negative (Negative) Urine Ketones Negative (Negative) Urine Blood Trace-intact A (Negative) Urine Nitrite Negative (Negative) Urine Bilirubin 1+ A (Negative) Urine Urobilinogen 0.2 (0.2-1.0) Ur Leukocyte Esterase Negative (Negative) Urine RBC 0-2 (0-2) Urine WBC 0-2 (0-5) Ur Squamous Epith Cells Few (None-Few) Amorphous Sediment Moderate A (None) Other Sediment FEW GRANULAR CASTS (None) Urine Bacteria Few A (None) SARS-CoV-2 (PCR) Negative SARS-CoV-2 (Negative) Influenza Type A (PCR) Negative PCR FLU A (Negative) Influenza Type B (PCR) Negative PCR FLU B (Negative) RSV (PCR) Negative PCR RSV (Negative) Imaging Data CT scan - abdomen: Attestation: I have reviewed the pertinent imaging results. Radiologist's impression: Patient: Tanner James MR#: [id number] : 1945 Acct:[id number] Loc: ED Service Date: 02/01/[address]: Ordering Physician: Christina Dixon M.D. Date of Service: 02/01/25 Procedure(s): CT abdomen pelvis w con Accession Number(s): [id number] cc: Christina Dixon M.D.; Kyle Healy M.D.~ For Patients: As a result of the Cures Act, medical imaging exams and procedure reports are released immediately into your electronic medical record. You may view this report before your referring provider. If you have questions, please contact your health care provider. INDICATION: Epigastric pain TECHNIQUE: CT abdomen and pelvis acquired with 122 cc Isovue 370 IV contrast. COMPARISON: CT abdomen pelvis 12/19/2024, CT abdomen pelvis 10/26/2023, CT abdomen pelvis 10/26/2023 FINDINGS: Lower chest: Aortic valve replacement. Paraspinal soft tissue lesions with internal fat are more conspicuous when compared to 10/26/2023. Severe calcification of the interventricular septum, likely related to prior infarct. Liver: Calcified granuloma. Gallbladder and bile ducts: Cholecystectomy. No biliary ductal dilation. Pancreas: Unremarkable. Spleen: Scattered calcified granulomas. Scattered hypodense lesions throughout the spleen is similar since 2022, favoring benign etiologies. Spleen is at the upper limits of normal. Adrenal glands: Unremarkable. No nodules. Kidneys: Left nephrectomy without nodularity in the nephrectomy bed. Right renal cyst. GI tract: No obstruction. Colonic diverticulosis without diverticulitis. Normal appendix. Vasculature: Abdominal aorta is normal in caliber. Moderate aortoiliac atherosclerosis. Mesenteric arteries are patent. Calcification at the origin of the SMA without evidence of poststenotic dilation. Lymph nodes: No lymphadenopathy. Peritoneum/Abdominal Wall: Anterior abdominal wall scar. Scattered calcifications in the anterior abdominal wall, likely injection granulomas. Calcification in the right iliacus muscle, likely related to prior trauma. Diffuse moderate atrophy of the visualized musculature. Pelvis: Atrophic fibroid uterus. Bones: L4-L5 PLIF and anterior fusion. IMPRESSION: No acute findings to explain symptoms. 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 Please note that all CT scans at this facility use dose modulation, iterative reconstruction, and/or weight-based dosing when appropriate to reduce radiation dose to as low as reasonably achievable. Dictated by Day Perdomo MD @ 02/01/2025 3:56:36 PM Discharge Plan Discharge Clinical Impression: Generalized weakness, Physical deconditioning Patient Disposition: Home, Self-Care Condition: Stable Instructions: Weakness (ED) Additional Instructions: Follow-up with Dr. Tubbs tomorrow as planned. On your evaluation today, your inflammatory markers as well as your liver function tests were somewhat elevated. There is likely a component of conditioning contributing to your symptoms, and as discussed, depression may be affecting your ability to work on that as well. I would discuss these things with Dr. Tubbs, see if you can get physical therapy back working with you. If you are feeling worse, are not able to function at home, have new symptoms such as fevers, worsening abdominal pain, vomiting, etcetera, return to the emergency department at any time. Prescriptions: No Action prednisone 5 mg tablet 7.5 mg PO DAILY sulfasalazine 500 mg tablet 1 g PO BID Rx Instructions: give with food (meal/snack) cholecalciferol (vitamin D3) 50 mcg (2,000 unit) capsule 50 mcg PO DAILY multivitamin Tablet 1 tab PO QAM folic acid 1 mg tablet 1 mg PO QDAY ascorbic acid (vitamin C) 500 mg tablet 500 mg PO QDAY leflunomide 20 mg tablet 20 mg PO DAILY Lactobacillus acidophilus 0.5 mg (100 million cell) tablet 100 mmu cells PO DAILY diclofenac sodium [Voltaren Arthritis Pain] 1 % gel 2 g topical QID PRNQty: 100 0RF Rx Instructions: apply to single elbow, wrist or hand; for hand includes palm/fingers/back of hand ferrous sulfate 325 mg (65 mg iron) Tablet 325 mg PO DAILY Qty: 100 0RF valganciclovir 450 mg tablet 450 mg PO DAILY Qty: 90 3RF pregabalin 50 mg capsule 50 mg PO BID Qty: 180 3RF rosuvastatin 5 mg tablet 5 mg PO HS Qty: 90 3RF nystatin 100,000 unit/gram powder 1 applic topical BID Qty: 30 2RF furosemide 40 mg tablet 40 mg PO DAILY Qty: 90 1RF metoprolol succinate 25 mg tablet extended release 24 hr 25 mg PO BID Qty: 180 3RF duloxetine 60 mg capsule,delayed release(DR/EC) 60 mg PO DAILY Qty: 90 1RF Eliquis 5 mg tablet 2.5 mg PO BID Qty: 90 2RF hydrocodone-acetaminophen 5-325 mg tablet 1 tab PO BID PRN (Reason: pain) Qty: 60 0RF potassium chloride 10 mEq capsule, extended release 10 meq PO DAILY Qty: 90 3RF Follow Up/Referrals: Kyle Healy MD [Primary Care Provider, Family Practice] Stand Alone Forms: [employer] Info Instructions
[2025-02-01 13:52] LABS: Lactate Sepsis w/Reflex* 1.0 mmol/L (0.5-1.9)
[2025-02-01 13:53] LABS: Hematocrit 32.9 % (33.0-51.0); Hemoglobin* 10.0 gm/dL (12.0-16.0); Immature Granulocytes Abs Auto 0.02 K/uL (0.00-0.30); Immature Granulocytes Pct Auto 0.2 %; Mean Corpuscular HGB Conc 30 gm/dL (32-36); Mean Corpuscular Hemoglobin 31 pg (26-34); Mean Corpuscular Volume 103 fL (80-100); RDW Coefficient of Variation % 18.8 % (11.5-15.5); Red Blood Count 3.19 m/uL (4.00-5.20); White Blood Count* 9.77 K/uL (4.50-11.00)
[2025-02-01 14:05] LABS: Lymphocytes Absolute Auto 1.10 K/uL (0.90-2.90); Slide Review Reflex No
[2025-02-01 14:09] LABS: Other Sediment Urine FEW GRANULAR CASTS
[2025-02-01 14:20] LABS: Albumin* 3.6 g/dL (3.3-5.0); Chloride* 107 mmol/L (96-114); Sodium* 135 mmol/L (135-149)
[2025-02-01 14:21] LABS: Potassium* 3.8 mmol/L (3.6-5.1)
[2025-02-01 14:23] LABS: Alanine Aminotransferase* 84 U/L (4-35); Alkaline Phosphatase* 231 U/L (40-150); Anion Gap 6 mEq/L (7-15); Aspartate Amino Transferase* 123 U/L (12-35); Bilirubin Total* 1.1 mg/dL (0.1-1.5); Blood Urea Nitrogen* 27 mg/dL (7-30); Carbon Dioxide* 22 mmol/L (20-32); Creatinine* 1.0 mg/dL (0.5-1.5); Est. Creatinine Clearance* 38.97; Estimated Glomerular Filt Rate 58 ml/min; Total Protein* 6.8 g/dL (6.0-8.3)
[2025-02-01 14:24] LABS: Calcium* 9.7 mg/dL (8.4-10.6); Glucose* 100 mg/dL (60-115)
[2025-02-01 14:37] LABS: PCR FLU A Negative PCR FLU A (Negative); PCR FLU B Negative PCR FLU B (Negative); PCR RSV Negative PCR RSV (Negative); SARS PCR* Negative SARS-CoV-2 (Negative)
--- NOTE | 2025-02-01 14:49 | CRLHL7_ITS ---
For Patients: As a result of the Century Cures Act, medical imaging exams and procedure reports are released immediately into your electronic medical record. You may view this report before your referring provider. If you have questions, please contact your health care provider. INDICATION: Epigastric pain TECHNIQUE: CT abdomen and pelvis acquired with 122 cc Isovue 370 IV contrast. COMPARISON: CT abdomen pelvis 12/19/2024, CT abdomen pelvis 10/26/2023, CT abdomen pelvis 10/26/2023 FINDINGS: Lower chest: Aortic valve replacement. Paraspinal soft tissue lesions with internal fat are more conspicuous when compared to 10/26/2023. Severe calcification of the interventricular septum, likely related to prior infarct. Liver: Calcified granuloma. Gallbladder and bile ducts: Cholecystectomy. No biliary ductal dilation. Pancreas: Unremarkable. Spleen: Scattered calcified granulomas. Scattered hypodense lesions throughout the spleen is similar since 2022, favoring benign etiologies. Spleen is at the upper limits of normal. Adrenal glands: Unremarkable. No nodules. Kidneys: Left nephrectomy without nodularity in the nephrectomy bed. Right renal cyst. GI tract: No obstruction. Colonic diverticulosis without diverticulitis. Normal appendix. Vasculature: Abdominal aorta is normal in caliber. Moderate aortoiliac atherosclerosis. Mesenteric arteries are patent. Calcification at the origin of the SMA without evidence of poststenotic dilation. Lymph nodes: No lymphadenopathy. Peritoneum/Abdominal Wall: Anterior abdominal wall scar. Scattered calcifications in the anterior abdominal wall, likely injection granulomas. Calcification in the right iliacus muscle, likely related to prior trauma. Diffuse moderate atrophy of the visualized musculature. Pelvis: Atrophic fibroid uterus. Bones: L4-L5 PLIF and anterior fusion. IMPRESSION: No acute findings to explain symptoms. 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 Please note that all CT scans at this facility use dose modulation, iterative reconstruction, and/or weight-based dosing when appropriate to reduce radiation dose to as low as reasonably achievable. Dictated by Day Perdomo MD @ 02/01/2025 3:56:36 PM (Electronically Signed)
[2025-02-01 15:15] LABS: Erythrocyte SedimentationRate* 92 mm/hr (2-20)
[2025-02-01 15:16] LABS: Bilirubin Direct* 1.1 mg/dL (0.0-0.5)
[2025-02-01 16:03] LABS: TSH With Reflex to FT4* 2.430 uIU/mL (0.270-4.200)
== END 2025-02-01 17:50 | disposition home or self-care (01) ==
PROVIDERS: Emergency Provider Emergency Medicine; PCP Family Medicine
DX: R53.1 Weakness (principal); R53.81 Other malaise
CPT/HCPCS: 36415; 74177; 80048; 80076; 81001; 83605; 83690; 83735; 84443; 84484; 85025; 85651; 86140; 87086; 87631; 93005; 99284; 99285; Q9967

== ENCOUNTER 2025-02-01 17:38 | Outpatient (CLI) | payer MEDICARE, OTHER, SELFPAY | END 2025-02-01 17:39 | disposition home or self-care (01) | LOC: AMB 02-02 15:05 | PROVIDERS: PCP Family Medicine; Visit Provider Student in an Organized Health Care Education/Training Program | DX: R53.1 Weakness (principal); R53.81 Other malaise | CPT/HCPCS: A0425; A0428 ==

== ENCOUNTER 2025-04-28 10:04 | Outpatient (CLI) | payer MEDICARE, OTHER, SELFPAY | END 2025-04-28 10:05 | disposition home or self-care (01) | LOC: AMB 05-01 16:13 | PROVIDERS: PCP Family Medicine; Visit Provider Family Medicine | DX: R22.40 Localized swelling, mass and lump, unspecified lower limb (principal); M54.9 Dorsalgia, unspecified | CPT/HCPCS: A0425; A0427 ==

== ENCOUNTER 2025-04-28 10:46 | Emergency (ER) | payer MEDICARE, OTHER, SELFPAY ==
--- OUTSIDE RECORDS SUMMARY | 2025-04-28 10:49 | XMS_ITS | Encounter Summary ---
[facility] Organization [facility] Address [address] [place] [address] Care Team Providers Care Infection Prevention Specialist Name Role Phone Basilio Healy MD Primary Care Provider [phone] Encounter Details Date Type Department Care Team (Late st Contact Info) Description 02/02/2025 Results Follow-Up Rheumatology at [address] [place], [place] [id number] Man Sánchez MD [address] [place] [id number] Social History Tobacco Use Types Packs/Day [...] Progress Notes * Man Sánchez MD - 02/02/2025 10:46 AM CDT Recent blood work shows stable kidney function. There is anemia which has progressed when compared with previous measurements. There is decrease in the platelet count. Normal white blood cells. Normal liver function. Recommend increasing folic acid to 2 mg daily. Will send a new prescription to the pharmacy. 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 [address] [address] Man Sánchez MD [address] [place] [address] documented as of this encounter Visit Diagnoses Not on filedocumented in this encounter Care Teams Infection Prevention Specialist Relationship Specialty Start Date End Date Basilio Healy MD [facility] [address] [place] [address] PCP - General Family Practice 10/28/22 documented as of this encounter
--- OUTSIDE RECORDS SUMMARY | 2025-04-28 10:49 | XMS_ITS | Clinical Summary ---
Author Organization [facility] Address [address] [place] [address] Care Team Providers Care Compensation And Benefits Analyst Name Role Phone Basilio Healy MD Primary Care Provider [phone] Source Comments You are receiving this document as you are listed as the primary care provider,follow-up provider, or the patient has been referred to you for consultation.This is in compliance with the Medicare and[facility] EHR Incentive Program,which states Providers who transition their patient to another setting of careor provider of care or refers their patient to another provider of care shouldprovide summary care record for each transition of care or referral. [employer] Corporation[facility] Hospital[facility] Allergies Active Allergy Reactions Criticality Noted Date Comments Levofloxacin Other, see comments 02/02/2022 Muscles snapped Nsaids Other, see comments High 03/18/2011 HUT Reaction: GI Bleeding; HUT Severity: High; HUT Noted: [id number] Terbinafine Muscle Aches/Weakness 02/02/2022 Medications Cholecalciferol 2000 [...] weeks if tolerated. 135 Tablet 1 07/19/19 Active potassium chloride 10 MEQ controlled release capsule Take 1 Capsule (10 mEq) by mouth daily. Active pregabalin (LYRICA) 50 MG capsule Take 1 Capsule (50 mg) by mouth two times a day. Active metoprolol succinate (TOPROL XL) 25 MG 24 hour release tablet Take 1 Tablet (25 mg) by mouth two times a day. 03/23/20 24 Active sulfaSALAzine (AZULFIDINE) 500 MG tabletIndications :Rheumatoid arthritis involving multiple joints (HRC),High risk medication use Take 2 Tablets (1,000 mg) by mouth two times a day. 360 Tablet 2 01/16/20 25 Active leflunomide (ARAVA) 20 MG tabletIndications :Rheumatoid arthritis involving multiple joints (HRC),High risk medication use Take 1 Tablet (20 mg) by mouth daily. 90 Tablet 2 01/16/20 25 Active folic acid 1 MG tabletIndications :Rheumatoid arthritis involving multiple joints (HRC),High risk medication use Take 2 Tablets (2 mg) by mouth daily. 180 Tablet 3 02/03/20 25 026 Active Active Problems Patient Care Coordination No te Formatting of this note migh t be different from the original. Rheumatology- Patient receives drug assistance for Enbrel from [employer]. 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 Patient discontinued 05/2012. 12/20/2012 start venlafaxine 37.5mg Osteopenia 12/07/2011 Overview (04/28/2019): Lodging Facilities Manager wants patient to be on alendronate indefinitely due to her prednisone use so she restarted it on 10/04/18. DXA 02/12/18 Hip T-score -1.9 FRAX = 10.8% / 2% STOP alendronate and repeat DXA in 1 year (January 2019) DXA 05/2015 Hip T -1.8 FRAX = 19.2% / 3.5% START alendronate DXA -12; T hip -1.61 FRAX = 14%/2.2% (Rx [...] Overview (04/28/2019): HGB 9.6 ON ADMIT TO [facility] 03/2009; ENDOSCOPY REVEALED SHALLOW GASTRIC [...] Encounters Date Type Department Care Team Description 02/02/2025 Notes/Orders Rheumatology at [place] [address] [place] [address]. [place] [address] Man Sánchez MD Rheumatoid arthritis involving multiple joints (HRC); High risk medication use 02/02/2025 Results Follow-Up Rheumatology at [place] [address] [address] [place] [address] Man Sánchez MD from Last 3 Months Immunizations Immunization Administration Dates Next Due Flu Vac (3+ yrs) 04/03/2013, 2,04/30/2010,2008,04/10/2003 Flu Vac Preserv Free (3+yrs) 04/30/2010,04/15/20 09 HepA Adult (19+ yrs) 10/20/2004,03/07/2004 HepA Ped/Adol (1-18 yrs) 10/20/2004 HepA, Pediatric (DO NOT USE; for MIIC only) 10/20/2004 IPV (Polio) 03/07/2004 Influenza IIV3 (Trivalent) F luzone Highdose, 65+ Yrs (53632) 04/25/2019,03/09/2016,03/30/2014 Influenza IIV4 (Quadrivalent ) 0.5mL (21585) 04/23/2021,04/25/2019,04/19/2018,2015,03/30/2014,04/03/2013,04/15/2012,1 06/30/2009,04/15/2009,04/10/2003 Influenza IIV4 (Quadrivalent ) Fluzone, [...] st Contact Info) Description 05/14/2025 11:30 AM SOUR BLEACHING PLEATER Appointment Rheumatology at [facility] [address] [address] Man Sánchez MD [facility] [place], [place] [phone] Health Maintenance Due Date Last Done Comments Medicare Annual Wellness Visit 1945 Pneumococcal PCV20 Immunization Discussion 1945 Tuberculosis Screening 1945 RSV Vaccine (1 - 1-dose 75+ series) 2022 Colonoscopy 10/27/2023 10/26/2018 (Comp leted), 11/12/2008 (Completed) Dexa 10/07/2024 10/07/2022, 01/2018, 02/02/2018, Additional history exists COVID-19 Vaccine ( season) 2025 03/24/2022, 05/02/2021, 09/10/2020, Additional history exists Influenza Vaccine (#1) 2025 [...] not included. Patient Name: Tanner James Densitometer: Advaction W Appt Dept/Resource: Granda Bone Density GRANDA [...] trabecular bone, and is derived from the tamvm-rx-dheah changes of bone density embedded in the [...] Performed by Real Time PCR CLIA Number [id number] HCV Quant iu/ml <12 IU/ml HP CONVERSION Comment:CLIA Number [id number] HCV Quant Log iu/ml <1.08 Log IU/ml HP CONVERSION Comment: Performed at [facility], [address] [place] [address] CLIA Number [id number] 12/12/2015 11:4 4 AM CDT 12/12/2015 3:01 PM CDT us Swapnil Henley MD LAB_1 Final Result HP CONVERSION from Last 3 Months or Most Recently Relevant to Health Maintenance Insurance MEDICARE [place] [id number] [facility] [place] [id number] Advance Directives Documents on File Type Date Recorded Patient Interior Decorator Expl anation POLST 02/02/2017 01/05/2017 Care Teams Compensation And Benefits Analyst Relationship Specialty Start Date End Date Basilio Healy MD [facility] [address] [place] [address] PCP - General Family Practice 10/28/22
--- OUTSIDE RECORDS SUMMARY | 2025-04-28 10:49 | XMS_ITS | Clinical Summary ---
Author Organization [facility] Address [address] [place] [address] Care Team Providers Care Instructional Design Technologist Name Role Phone Swapnil Henley MD Unavailable Unavailable Marlys Woodruff William RD Unavailable [phone] Silvia Medinajackyuridia Garcia ANGEL Unavailable [phone] Kyle Healy MD Primary Care Provider [phone] Allergies Active Allergy Reactions Criticality Noted Date [...] arthritis involving multiple sites 12/11/19 17 05/05/2023 Overview (04/06/2025): Diagnosis Code replaced due to regulatory update Diastolic heart failure 05/25/201601/2023 Alcoholism 05/14/2016 05/05/2023 Ocular migraine 11/15/2015 05/05/2023 Morbid obesity with BMI of 40.0-44.9, adult 11/15/2015 01/17/2019 Psoriatic arthritis 01/16/2015 05/05/20 23 Fatty infiltration of liver 11/21/2013 05/05/2023 Overview (11/21/2013): ULTRASOUND 10/2013; Abnormal liver function tests; history of Ethanol abuse; Diastolic dysfunction, left ventricle 11/10/2013 05/05/2023 Overview (11/10/2013): Echocardiogram 09/2013 [place]; Ejection fraction 65% H/O alcohol abuse 11/10/2013 05/05/2023 Overview (12/08/2013): Quit alcohol use 2007 Vitamin D deficiency 08/23/2013 023 Family history of breast can cer in first degree relative 05/14/2013 05/05/2023 Overview (05/14/2013): Mother, daughter: Stress to patient need for annual mammogram; 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 Patient discontinued 05/2012. 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 Gender Identity Not on file Sexual Orientation [...] or (1 - 1-dose 75+ series) 2022 BMI (ht and wt on same day) [...] this topic Medical Devices Implanted Type Area Heating And Ventilating Worker Device Identifier Shelf Expiration Date Model / Serial / Lot Screw Tsrh Og Thin 6.5x50mm - [id number] Implanted:Qty: 3 on 04/28/2010 at [facility] N/A: Spine [employer] [id number]# / / Screw Locking 4x20mm Fine Tip Titnm - [id number] Implanted:Qty: 4 on 04/28/2010 at [facility] [employer] [id number] # / / Screw Thin Crest 6.5x45mm - [id number] Implanted:Qty: 1 on 04/28/2010 at [facility] [id number]# / / Set Screw 3dx - [id number] Implanted:Qty: 4 on 04/28/2010 at [facility] [id number]# / / Cnnctr Tsrh 3dx Sm - [id number] Implanted:Qty: 4 on 04/28/2010 at [facility] Medtronic [id number]# / / Rios 3.5cmx5.5mm Pre-Cut - [id number] Implanted:Qty: 2 on 04/28/2010 at [facility] [id number]# / / Kit Infuse Md - [id number] Implanted:Qty: 1 on 04/28/2010 at [facility] Spine [facility] 10/26/2012 [id number]# / / [id number] Filler Bio [id number] - [id number] Implanted:Qty: 1 on 04/28/2010 at [facility] [id number]# / / [id number] Synfix Lr 26mm Implanted:Qty: 1 on 04/28/2010 at [facility] [employer] [id number] S / / [id number] Description:SYNFIX LR 26MM Procedures Procedure Name Priority [...] bone density measurements were obtained using the [employer] bone densitometry system. COMPARISON: None. FINDINGS: SPINE: [...] bone density measurements were obtained using the [employer]/T[employer] bone densitometry system. COMPARISON: None. FINDINGS: SPINE: [...] Most Recently Relevant to Health Maintenance Insurance [facility] [place] MEDICARE PART B HB ONLY MEDICARE PB ONLY MEDICARE PART A HB ONLY MEDICARE PROVIDER BASED [employer] [place] [address] [employer] [place] [address] MEDICARE PROVIDER BASED [employer] ADAL YAÑEZ MEDICARE PPS Advance Directives Documents on File Type Date Recorded Patient Assistance Specialist Expl anation POLST 04/29/2021 POLST 02/02/2017 1:11 [...] Code Status Discussion: Reviewed Preferences Care Teams Instructional Design Technologist Relationship Specialty Start Date End Date Kyle Healy MD [address] [address] PCP - General Family Practice 07/14/23 Swapnil Henley MD Rheumatology 12/20/12 Marlys Woodruff, RD [address] [place] [address] Registered Dietitian Quality Assurance Director 07/05/18 Funmi Medina, ANGEL [address] [place], [place] [phone] Occupational Therapy 05/11/23 Mary Carpio Cardiology - Interventional 01/12/18 DR. Luo Dentistry - General 01/12/18
--- OUTSIDE RECORDS SUMMARY | 2025-04-28 10:49 | XMS_ITS | Data Portability ---
Author Organization [facility], [facility] Address [address] [facility] [address] [place] [address] Assessment No assessment recorded. 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 Lamont Bravo MD [address] [place] [address], [phone], [facility] 2 16:32:18 Recurrent urinary tract infection 140396932 Active 2021 Managed with daily Bactrim Lamont Bravo MD [address] [place] [address], [phone], [facility] 2 16:32:42 Problem Notes None recorded. Procedures Surgical History Date Name Laterality Status Provider Name and Address Organization Details Recorded Time 07/11/19 NEPHRECTOMY, HAND ASSISTED LAPAROSCOPIC (SURG) completed Mary Monte [facility] 07/17/2021 09:46:04 Imaging Results None recorded. Procedure Notes None recorded. Medical Equipment None Reported. Allergies Allergen ID Allergen Name Allergen Category Reaction Reaction Severity Criticality Documentation Date Start Date Code Code System Note Provider Name and Address Organization Details Recorded Time 441547 Non-stero idal anti-infl ammatory agent (substanc e) medicatio n Not available Not available Not available 03/20/2021 48761 5008 SNOMED Lamont Bravo MD [address] [place] [address],[address] [place] [address], [phone], [facility] 1 16:22:56 297531 Levaquin medicatio n Not available Not available Not available 03/20/2021 15680 2 RxCarroll Bravo MD [address] [place] [address],[address] [place] [address], [phone], [facility] 1 16:23:24 313401 levofloxa giorgio medicatio n other Not available Not available 08/11/20212021 95804 Bree Bravo MD [address] [place] [address],[address], [place], [address], [facility] 2 16:06:24 326046 terbinafi ne hydrochlo ride medicatio n fever headache Not available Not available Not available 08/11/20212019 21612 8 Bree Bravo MD [address] [place] [address],[address] [place] [address], [phone], [facility] 2 16:06:24 Medications Name [...] Updated DateTime 08/11/2021 160.02 cm 28.3 kg/m2 79366.78 g Lamont Bravo MD [address] [place] [address],[address] [place] [address] Urology 08/11/2021 16:06:06 Date Recorded Body height Body mass index (BMI) Body weight Provider Name and Address Organization Details Last Updated DateTime 03/20/2021 160.02 cm 33.7 kg/m2 19105.55 g Lamont Bravo MD [address] [place] [address],[address] Urology 03/20/2021 16:22:47 Social History Question Answer Notes LastModified by [employer] Details LastModified Time Tobacco Smoking Status Never Smoker Lamont Bravo MD [address] [place] [address],[address], [address], [facility] 03/20/2021 16:24:21 What Is Your Level Of Caffeine Consumption? Occasional Information not available 03/20/2021 What Was The Date Of Your Most Recent Tobacco Screening? 08/11/2021 Information not available 08/11/2021 Sex: Unknown Functional Status Question Answer Note LastModified by [employer] Details LastModified Time Do you use any [...] polysaccharide PPV23 0 completed Lamont Bravo MD [address] [place] [address],[address], [place], [address], [facility] 08/11/2021 16:07:09 Pneumococcal conjugate PCV 13 5 completed Lamont Bravo MD [address] [place] [address],[address], [place], [address], [facility] 08/11/2021 16:07:09 pneumococcal polysaccharide PPV23 5 completed Lamont Bravo MD [address] [place] [address],[address], [phone], [facility] 08/11/2021 16:07:09 Pneumococcal conjugate PCV 13 6 completed Lamont Bravo MD [address] [place] [address],[address], [address], [facility] 08/11/2021 16:07:10 pneumococcal polysaccharide PPV23 6 completed Lamont Bravo MD [address] [place] [address],[address], [phone], [facility] 08/11/2021 16:07:10 Past Encounters Encounter ID Performer Location Encounter Start Date Encounter Closed Date Diagnosis/Indication Diagnosis SNOMED-CT Code Diagnosis ICD10 Code Diagnosis IMO Codes Diagnosis Note [id number] MD TAMIKA Hudson_Nara 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 This can be managed with a left nephrectom y. She'll need a pretty thorough preop and the procedure is needed soon and cannot wait a couple of months. [id number] MD Sondra Hudson 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 She can now stop [...] ID Guarantor Name 08/08/2021 1 MEDICARE [place]: [facility] Tanner James [id number] 1 Tanner Brown Erika 08/08/2021 2 [employer] [place] (MEDICARE SUPPLEMENT) Tanner Serna Erika [id number] Tanner Brown Erika Notes Date Note Type Note Provider Name and Address Organization Details Recorded Time 03/20/2021 text/html New patient here to discuss nephrectomy.She fell when she was at [place] and that led to a CT scan that showed an atrophic kidney and a staghorn stone. She's had recurrent pyelonephritis as well.She had ESWL in 2002. She also has a poor aortic valve. Lamont Bravo MD [address] [place] [address],[address], [address], [facility] 03/20/2021 17:02:40 08/11/2021 text/html She has recovered well from surgery. 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 Lamont Bravo MD [address] [place] [address],[address], [place], [address], [facility] 08/11/2021 16:37:50 OBGyn Episode No OBEpisode recorded.
--- OUTSIDE RECORDS SUMMARY | 2025-04-28 10:49 | XMS_ITS | Encounter Summary ---
Author Organization [facility] Address [address] [place] [address] Care Team Providers Care Hand Glove Cleaner Name Role Phone Basilio Healy MD Primary Care Provider Reason for Visit * Reason Comments Refill Encounter Details Date Type Department Care Team (Late st Contact Info) Description 02/06/2016 Refill Rheumatology at [address] [place], [place] [phone] Swapnil Henley MD Refill Social History Tobacco [...] (Late Contact Info) Description 05/14/2025 11:30 AM SKIVER COUNTER Appointment Rheumatology at [facility] [address] [address] Man Sánchez MD [address] [place] [phone] documented as of this encounter Visit Diagnoses Not on filedocumented in this encounter Care Teams Hand Glove Cleaner Relationship Specialty Start Date End Date Basilio Healy MD [facility] [address] [place] [address] PCP - General Family Practice 10/28/22 documented as of this encounter
[2025-04-28 10:51] VITALS: BP 151/56; PULSE 75; RESP 18; TEMP 36.6; O2SAT 98
--- NOTE | 2025-04-28 11:13 | ED.GENADULT ---
HPI - General Adult General Chief complaint: Lower Extremity Swelling Stated complaint: Swollen Legs Time Seen by Provider: 04/28/25 10:57 History of Present Illness HPI narrative: This 79-year-old female comes in with bilateral lower extremity swelling. She had a home nurse visit today who recommended that she come in here because of this pedal edema. This is not new for her. She has been on Lasix in the past and decided to discontinue this medicine. She was also wearing compression stockings and discontinue this also. She does have a history of atrial fibrillation and aortic valve replacement. She is on anticoagulants. She does not report any chest pain or shortness of breath. She has not had any fevers. She arrives here with normal vital signs. Related Data Home Medications ?Medication ?Instructions ?Recorded ?Confirmed Lactobacillus acidophilus 0.5 mg 100 mmu cells PO DAILY 12/22/21 02/02/25 (100 million cell) tablet cholecalciferol (vitamin D3) 50 50 mcg PO DAILY 01/16/22 02/02/25 mcg (2,000 unit) capsule multivitamin 1 tab PO QAM 01/16/22 02/02/25 sulfasalazine 500 mg tablet 1 g PO BID 12/29/23 02/02/25 ascorbic acid (vitamin C) 500 mg 500 mg PO QDAY 10/18/24 02/02/25 tablet folic acid 1 mg tablet 1 mg PO QDAY 10/18/24 02/02/25 leflunomide 20 mg tablet 20 mg PO DAILY 10/18/24 02/02/25 nystatin 100,000 unit/gram topical 1 applic topical BID PRN 02/02/25 02/02/25 powder prednisone 5 mg tablet 2.5 mg PO DAILY 02/02/25 02/02/25 Previous Rx's ?Medication ?Instructions ?Recorded diclofenac sodium 1 % topical gel 2 g topical QID PRN #100 grams 10/25/23 (Voltaren Arthritis Pain) valganciclovir 450 mg tablet 450 mg PO DAILY #90 tabs 05/10/24 rosuvastatin 5 mg tablet 5 mg PO HS #90 tabs 10/10/24 furosemide 40 mg tablet 40 mg PO DAILY #90 tabs 11/09/24 duloxetine 60 mg capsule,delayed 60 mg PO DAILY #90 caps 11/22/24 release metoprolol succinate 25 mg 25 mg PO BID #180 tabs 11/22/24 tablet,extended release 24 hr apixaban 5 mg tablet (Eliquis) 2.5 mg (1/2 x 5 mg) PO BID #90 tabs 01/04/25 potassium chloride 10 mEq 10 meq PO DAILY #90 caps 01/22/25 capsule,extended release prednisone 5 mg tablet See Rx Instructions PO QDAY #100 02/02/25 tabs pregabalin 50 mg capsule 50 mg PO BID #180 caps 02/21/25 hydrocodone 5 mg-acetaminophen 325 1 tab PO BID PRN pain #60 tabs 03/30/25 mg tablet Allergies Allergy/AdvReac Type Severity Reaction Status Date / Time NSAIDS (Non-Steroidal Allergy Severe GI bleed Verified 04/28/25 10:56 Anti-Inflamma terbinafine Allergy Intermediate Headache Verified 04/28/25 10:56 levofloxacin AdvReac Severe tendon Verified 04/28/25 10:56 rupture Review of Systems Status of ROS: Reports: 10 or more systems reviewed and unremarkable except as noted in History and below Narrative: Constitutional: No fevers, no weight gain or loss. Eyes: No discharge. No vision changes. HENT: No congestion, no sore throat, no ear pain. Cardiovascular: No chest pain, no palpitations. Respiratory: No shortness of breath, no wheezes, no cough. Gastrointestinal: No abdominal pain, no vomiting, no diarrhea. Genitourinary: No dysuria, no hematuria. Musculoskeletal: Normal range of motion. Generalized weakness and deconditioning. She states that she is resuming physical therapy. Skin: No rashes, no pruritis. Neurological: No dizziness, weakness, sensory change, speech change. Endo/Heme/Allergies: No bruising or bleeding. No polydipsia. Pysch: no suicidality, no anxiety, no insomnia. All other systems reviewed and are negative. 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) History of adenomatous polyp of colon ?Z86.010 - Personal history of colonic polyps (ICD-10) Pulmonary infiltrates ?R91.8 - Other nonspecific abnormal finding of lung field (ICD-10) Urinary tract infection ?N39.0 - Urinary tract infection, site not specified (ICD-10) Chronic pain ?G89.29 - Other chronic pain (ICD-10) Pressure ulcer of other site, stage 4 ?L89.894 - Pressure ulcer of other site, stage 4 (ICD-10) Hematoma ?T14.8XXA - Other injury of unspecified body region, initial encounter (ICD-10) Congestive heart failure ?I50.9 - Heart failure, unspecified (ICD-10) Non-ST elevated myocardial infarction (non-STEMI) ?I21.4 - Non-ST elevation (NSTEMI) myocardial infarction (ICD-10) 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 - Aneurysm of artery of lower extremity (ICD-10) Obesity (BMI 30.0-34.9) ?E66.9 - Obesity, unspecified (ICD-10) Alcohol use disorder ?F10.90 - Alcohol use, unspecified, uncomplicated (ICD-10) Pulmonary embolism ?I26.99 - Other pulmonary embolism without acute cor pulmonale (ICD-10) Gastrointestinal hemorrhage ?K92.2 - Gastrointestinal hemorrhage, unspecified (ICD-10) Aortic stenosis, severe ?I35.0 - Nonrheumatic aortic (valve) stenosis (ICD-10) History of kidney stones ?Z87.442 - Personal history of urinary calculi (ICD-10) Mitral annular calcification ?I05.9 - Rheumatic mitral valve disease, unspecified (ICD-10) Surgical History Status post transcatheter aortic valve replacement (TAVR) using bioprosthesis ?Z95.3 - Presence of xenogenic heart valve (ICD-10) S/P cataract extraction ?Z98.49 - Cataract extraction status, unspecified eye (ICD-10) S/P cholecystectomy ?Z90.49 - Acquired absence of other specified parts of digestive tract (ICD-10) History of left nephrectomy ?Z90.5 - Acquired absence of kidney (ICD-10) History of lumbar fusion (04/2010) ?Z98.1 - Arthrodesis status (ICD-10) History of lithotripsy ?Z98.890 - Other specified postprocedural states (ICD-10) Family History Mother Breast cancer, Onset Age: 70 Sister Breast cancer, Onset Age: 35 Social History Narrative: Has been living at [facility] an intrapartum apartment with a household personal assistant present for 4 hours on 3 days a week. Manages her own medications. Code status is DNR DNI What is your current living situation?: I presently have a place to live Problems where you live: no known problems Problems where you live details: n/a In the past 12 months, utilities in danger of being shut off: no In past 12 months, lack of transportation kept you from medical appts, meetings, work, or getting things needed for daily living: no In the past 12 mos, have been you worried that your food would run out before you had money to buy more?: never true In the past 12 mos, the food you bought just didn't last and you didn't have money to buy more?: never true Highest level of school completed/degree received: high school graduate Smoking Status: Never smoker Do you use any of these nicotine containing products: None Second hand tobacco smoke exposure: Yes How often do you have a drink containing alcohol: never How often do you have six or more drinks on one occasion: Never AUDIT-C Alcohol total score: 0 Non-prescribed substance use: denies use Caffeine: Yes How often does anyone, including family, friends and others, physically hurt you: never How often does anyone, including family, friends and others, insult or talk down to you: never How often does anyone, including family, friends and others, threaten you with harm: never How often does anyone, including family, friends and others, scream or curse at you: never service: No Exam Narrative: Exam Narrative: Constitutional: Well-developed, well-nourished, no acute distress. HEENT: Normocephalic, atraumatic. Neck: Normal range of motion. Nontender. Supple. Heart: Regular. No murmurs. Normal rate. Intact distal pulses. Lungs: Clear to auscultation. No chest discomfort. No wheezes, rhonchi, or rales. Abdomen: Normal bowel sounds. Nontender. No rebound tenderness. Genitalia: Deferred. Back: No midline tenderness. Normal range of motion. Extremities: Normal range of motion. No injury. Bilateral pedal edema. No sign of infection. Skin: Intact. No rash. Warm. No erythema or pallor. Neurologic: No altered sensation. No weakness. Alert and oriented. Psychiatric: No suicidality. No anxiety or depression. No insomnia. Nursing notes and vitals signs are reviewed. Const: Vital Signs, click to edit/add: Vital Signs - 24 hr 04/28/25 10:51 Temperature 98 F Pulse Rate [Right Pulse Oximeter] 75 Respiratory Rate 18 Blood Pressure [Ri ght Upper Arm] 151/56 H Pulse Oximetry 98 Oxygen Delivery Me thod Room Air Course Vital Signs Vital signs: Initial Vital Signs Temperature 98 F 04/28/25 10:51 Temperature Source Temporal Artery Scan 04/28/25 10:51 Pulse Rate 75 04/28/25 10:51 Pulse Rhythm Regular 04/28/25 10:51 Pulse Strength 3+ Normal 04/28/25 10:51 Respiratory Rate 18 04/28/25 10:51 Blood Pressure 151/56 H 04/28/25 10:51 Blood Pressure Mean 87 04/28/25 10:51 Blood Pressure Position Semi-Fowlers 04/28/25 10:51 Pulse Oximetry 98 04/28/25 10:51 Oxygen Delivery Method Room Air 04/28/25 10:51 Vital Signs Temperature 98 F 04/28/25 10:51 Pulse Rate 75 04/28/25 10:51 Respiratory Rate 18 04/28/25 10:51 Blood Pressure 151/56 H 04/28/25 10:51 Pulse Oximetry 98 04/28/25 10:51 Oxygen Delivery Method Room Air 04/28/25 10:51 Temperature 98 F 04/28/25 10:51 Pulse Rate 75 04/28/25 10:51 Respiratory Rate 18 04/28/25 10:51 Blood Pressure 151/56 H 04/28/25 10:51 Pulse Oximetry 98 04/28/25 10:51 Oxygen Delivery Method Room Air 04/28/25 10:51 Medical Decision Making MDM Narrative Medical decision making narrative: This patient had been on Lasix for congestive heart failure and pedal edema and decided to discontinue this medicine. She comes in now with worsening pedal edema. She does have velcro compression bands around her left lower extremity. She does see physical therapy and home nurse cares. She states that she has plenty of Lasix at home. She does not have any other complaints. I stated that the only way to truly get rid of this fluid is to urinate it out. She needs to be on Lasix for this kind of fluid management. The patient did receive a 40 mg an dose orally here. I did discuss lab and imaging options and indicated that there is reassurance with her vital signs. She will resume Lasix and follow up with her primary physician. Discharge Plan Discharge Clinical Impression: Pedal edema Patient Disposition: Home, Self-Care Condition: Stable Additional Instructions: Resume Lasix as prescribed. Wear compression stockings and keep legs elevated when sitting. Follow up with MD for ongoing management. Return if worsening. Prescriptions: No Action sulfasalazine 500 mg tablet 1 g PO BID Rx Instructions: give with food (meal/snack) prednisone 5 mg tablet 2.5 mg PO DAILY nystatin 100,000 unit/gram powder 1 applic topical BID PRN prednisone 5 mg tablet See Rx Instructions PO QDAY Qty: 100 0RF Rx Instructions: 20 mg QD for 4D, then 15 mg QD for 6D, then 10 mg QD. Take with food orally every day; cholecalciferol (vitamin D3) 50 mcg (2,000 unit) capsule 50 mcg PO DAILY multivitamin Tablet 1 tab PO QAM folic acid 1 mg tablet 1 mg PO QDAY ascorbic acid (vitamin C) 500 mg tablet 500 mg PO QDAY leflunomide 20 mg tablet 20 mg PO DAILY Lactobacillus acidophilus 0.5 mg (100 million cell) tablet 100 mmu cells PO DAILY diclofenac sodium [Voltaren Arthritis Pain] 1 % gel 2 g topical QID PRNQty: 100 0RF Rx Instructions: apply to single elbow, wrist or hand; for hand includes palm/fingers/back of hand valganciclovir 450 mg tablet 450 mg PO DAILY Qty: 90 3RF rosuvastatin 5 mg tablet 5 mg PO HS Qty: 90 3RF furosemide 40 mg tablet 40 mg PO DAILY Qty: 90 1RF metoprolol succinate 25 mg tablet extended release 24 hr 25 mg PO BID Qty: 180 3RF duloxetine 60 mg capsule,delayed release(DR/EC) 60 mg PO DAILY Qty: 90 1RF Eliquis 5 mg tablet 2.5 mg PO BID Qty: 90 2RF potassium chloride 10 mEq capsule, extended release 10 meq PO DAILY Qty: 90 3RF pregabalin 50 mg capsule 50 mg PO BID Qty: 180 2RF hydrocodone-acetaminophen 5-325 mg tablet 1 tab PO BID PRN (Reason: pain) Qty: 60 0RF Follow Up/Referrals: Kyle Healy MD [Primary Care Provider, Family Practice] Stand Alone Forms: ClrTouch Info Instructions
[2025-04-28] MEDS: FUROSEMIDE 40 MG TABLET PO (11:25)
[2025-04-28 12:00] VITALS: BP 150/50; PULSE 86; RESP 16; O2SAT 95
== END 2025-04-28 12:00 | disposition home or self-care (01) ==
LOC: ED 11:18
PROVIDERS: Emergency Provider Emergency Medicine Emergency Medical Services; PCP Family Medicine
DX: R60.0 Localized edema (principal)
CPT/HCPCS: 99283; 99284; A9270

== ENCOUNTER 2025-04-28 11:44 | Outpatient (CLI) | payer MEDICARE, OTHER, SELFPAY | END 2025-04-28 11:45 | disposition home or self-care (01) | LOC: AMB 05-12 02:53 | PROVIDERS: PCP Family Medicine; Visit Provider Emergency Medicine Emergency Medical Services | DX: R60.1 Generalized edema (principal); Z99.3 Dependence on wheelchair | CPT/HCPCS: A0425; A0428 ==

== ENCOUNTER 2025-05-21 10:07 | Outpatient (CLI) | payer MEDICARE, OTHER, SELFPAY | END 2025-05-21 10:08 | disposition home or self-care (01) | LOC: AMB 05-25 23:01 | PROVIDERS: PCP Family Medicine; Visit Provider Family Medicine | DX: R07.89 Other chest pain (principal) | CPT/HCPCS: A0425; A0427 ==

== ENCOUNTER 2025-05-21 11:03 | Inpatient (IN) | payer MEDICARE, OTHER, SELFPAY ==
--- OUTSIDE RECORDS SUMMARY | 2025-05-17 15:00 | XMS_ITS | Encounter Summary ---
Author Organization Formerly [facility] Address [address], [place] [address] Care Team Providers Care Swing Ride Operator Name Role Phone Basilio Healy MD Primary Care Provider [phone] Reason for Referral * Procedure/Equipment (Routine) - Incomplete Specialty Diagnoses / Procedures Referred By Contac t Referred To Contact Diagnoses Age related osteoporosis, unspecified pathological fracture presence (HRC) Procedures DXA Bone Density Spine/Hip Man Sánchez MD [address] [place] [address] Phone: tel: fax: Referral ID Status Reason Start Date Expiration Date V isits Requested Visits Authorized [id number] Incomplete 05/17/2025 08/16/2026 1 1 CCO SPRAYER * Consult/Transfer Care (Routine) - New Request Specialty Diagnoses / Procedures Referred By Contac t Referred To Contact Diagnoses 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) Man Sánchez MD [address] [place] [address] Phone: tel: fax: Referral ID Status Reason Start Date Expiration Date V isits Requested Visits Authorized [id number] New Request 05/17/2025 08/16/2026 1 1 Scheduling Instructions Your clinician has recommended an appointment with [facility]. You can quickly make your appointment online at [facility]/schedule. You can also call [phone] for help scheduling your appointment. We suggest you call your health insurance company about your coverage and benefits for this appointment. Question Answer Appointment Urgency? Non-Urgent CCO SPRAYER Reason for Visit * Reason Comments Follow-up Encounter Details Date Type Department Care Team (Late st Contact Info) Description 05/17/2025 3:00 PM TOBACCO SPRAYER Office Visit Rheumatology at [facility] [address] [address] Man Sánchez MD [address] [place] [address] Rheumatoid arthritis involving multiple joints (HRC) (Primary Dx); 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); High risk medication use; Primary osteoarthritis of [...] * Patient Instructions* Man Sánchez MD - 05/17/2025 3:00 PM TOBACCO SPRAYER Longstanding history of seropositive rheumatoid arthritis and generalized osteoarthritis. Patient has been dependent on systemic prednisone mg daily. Recently had to take higher dose of systemic prednisone secondary to upper respiratory symptoms. Curently on leflunomide 20 mg daily and sulfasalazine 2 tablets twice daily. No significant signs of active synovitis on physical exam. Recommend slow taper of prednisone if tolerated. Recommend follow-up with the pulmonology to monitor pulmonary function. Will continue leflunomide 20 mg daily and sulfasalazine 2 tablets twice daily. Recommend folic acid daily. Recommend blood work every 3-4 months to monitor kidney, liver function and CBC. Recent blood work shows mild elevation of liver enzymes. This can be multifactorial including current immunosuppressive therapy. Will monitor closely. Presence of generalized osteoarthritis. There is a component of degenerative changes and rotator cuff tendinopathy in the left shoulder. Patient received steroid injection in the left shoulder and left knee. Recommend using topical treatment like Voltaren gel or Aspercreme with lidocaine cream 3-4 times daily. Recommend using Tylenol together with the hydrocodone as needed for joint pain. History of osteoporosis. Patient received the 2nd Reclast infusion in December. Will repeat DEXA scan next year to monitor bone mineral density. Recommend taking calcium and vitamin-D supplement daily. Patient has been complaining of chronic low back pain with intermittent sciatica in the right lowerextremity. Recommend physical medicine and rehabilitation for a multimodality approach. Return to clinic in 5 months for follow-up or sooner if needed. CCO SPRAYER CCO SPRAYER documented in this encounter Progress Notes * Man Sánchez MD - 05/17/2025 3:00 PM CST Rheumatology Follow up Note Chief Complaint Patient presents with Follow-up HPI: Tanner James is a 79 y.o. female with medical history as stated below including longstanding history of seronegative inflammatory arthritis/rheumatoid arthritis and generalized osteoarthritis is coming today for follow-up. Has been complaining of left shoulder and left knee pain. Has a hard time walking. Has had physical therapy with no significant benefit. Was previously seen by Ortho and was recommended to continue symptomatic management. Has lymphedema in the lower extremities. Uses compression wrappings 3 times a week. Patient lives in the assisted living. Denies any fevers or chills. Recently was treated for an upper respiratory tract infection. Was restarted on prednisone 20 mg daily with slow taper. Currently on 10 mg daily for the last month. On leflunomide 20 mg daily and Sulfasalazine 2 tablets twice daily. Recently slipped off the bed. Has been complaining of chronic low back pain and buttock pain. On hydrocodone. Last year patient was readmitted in the hospital with increased shortness of breath and lethargy. Imaging studies showed increased ground-glass opacity in the lungs. A concern for hospital-acquired pneumonia was raised. Also a concern for methotrexate toxicity versus interstitial lung disease related to rheumatoid arthritis also was raised. The decision was made to discontinue methotrexate and increase the systemic prednisone dose. Patient was on prednisone 15 mg daily which slowly was tapered down to a maintenance dose of 5 mg daily. Patient has tried multiple immunosuppressive drugs including [...] of 2021 when patient was admitted at [facility] with a clinical presentation of shortness of breath and upper respiratory tract infection. Was transferred to [facility] and[facility] for pneumonia. Presence of pleural effusion for which she had to have a chest tube placed. Methotrexate and Enbrel was put on hold. Methotrexate was resumed a few months later and patient hasbeen on methotrexate on and off. Problem List[1] Past Medical History[2] Past Surgical History[3] Outpatient Encounter Medications as of 05/17/2025 Medication Sig Note Dispense Refill Apixaban (ELIQUIS OR) 2.5 mg two times a day. ascorbic acid (VITAMINC) 250 MG tablet Take 1 Tablet (250 mg) by mouth daily. Cholecalciferol 2000 UNITS Take 2,000 Int'l Units by mouth daily. DICLOFENAC SODIUM OP Apply 1 % topically every 4 hours. DULoxetine (CYMBALTA) 60 MG capsule Take 1 Capsule (60 mg) by mouth daily. folic acid 1 MG tablet Take 2 Tablets (2 mg) by mouth daily. 180 Tablet 3 furosemide (LASIX) 40 MG tablet Take 1 Tablet (40 mg) by mouth daily. leflunomide (ARAVA) 20 MG tablet Take 1 [...] 2.5 mg every 2-4 weeks if tolerated. 05/17/2025: Pt takes mg daily 135 Tablet 1 pregabalin (LYRICA) 50 MG [...] Tablet (450 mg) by mouth daily. [DISCONTINUED] albuterol 2.5 mg/3 mL, 0.083%, (PROVENTIL) nebulizer solution 1 Vial (2.5 mg) by Nebulization route every 6 hours as needed for Wheezing. (Patient not taking: Reported on 01/15/2025) 180 mL 11 [DISCONTINUED] ferrous gluconate (FERGON) 324 (38 Fe) MG tablet Take 1 Tablet (324 mg) by mouth daily. [DISCONTINUED] fluticasone-salmeterol (ADVAIR HFA) 115-21 mcg/actuation inhaler Inhale 2 Puffs two times a day. With spacer. Rinse mouth/gargle after use. (Patient not taking: Reported on 08/09/2023) 1 Each 11 No facility-administered encounter medications on file as of 05/17/2025. Allergies Allergen Reactions Nsaids Other, see comments HUT Reaction: GI Bleeding; HUT Severity: High; [facility] Noted: [id number] Levaquin [Levofloxacin] Other, see comments Muscles snapped Terbinafine Muscle Aches/Weakness Social History Substance and Sexual Activity Alcohol Use No Alcohol/week: 0.0 standard drinks of alcohol Comment: Went through treatment for alcoholism in 2007 - had been a very functional alcoholic Tobacco Use History[4] EXAM General Appearance: Pleasant, alert, appropriate appearance [...] Lab Results Component Value Date AST (SGOT) 52 (H) 05/11/2025 Lab Results Component Value Date CREATININE 1.06 (H) 05/11/2025 Procedure note: Left shoulder steroid injection. After discussing the risks and benefits and taking verbal consent, area was cleaned with chlorhexidine/alcohol swab, ethyl chloride spray was used to numb the area. Patient received 40 mg of Kenalog mixed with 2 cc of lidocaine 1% in the left shoulder, anterior lateral approach using 25-gauge 1-/5needle. Patient tolerated the procedure well, no complications. Band-Aid was applied. Procedure note: Left knee intra-articular steroid injections After discussing the risks and benefits and taking verbal consent, area was cleaned with chlorhexidine/alcohol swab, ethyl chloride spray was used to numb the area. Patient received 40 mg of Kenalog mixed with 2 cc of lidocaine 1% in the left knee, medial to the infrapatellar ligament with the kneebent at 90?? using 25-gauge 1-/5 needle. Patient tolerated the procedure well, no complications. Band-Aid was applied. Assessment and Plan: Longstanding history of seropositive rheumatoid arthritis and generalized osteoarthritis. Patient has been dependent on systemic prednisone 5 mg daily. Recently had to take higher dose of systemic prednisone secondary to upper respiratory symptoms. Last year patient had a clinical presentation of interstitial lung disease. Has failed to follow-upwith pulmonology. Curently on leflunomide 20 mg daily and sulfasalazine 2 tablets twice daily. No significant signs of active synovitis on physical exam. Recommend slow taper of prednisone if tolerated. Recommend follow-up with the pulmonology to monitor pulmonary function. Will continue leflunomide 20 mg daily and sulfasalazine 2 tablets twice daily. Recommend folic acid daily. Recommend blood work every 3-4 months to monitor kidney, liver function and CBC. Recent blood work shows mild elevation of liver enzymes. This can be multifactorial including current immunosuppressive therapy. Will monitor closely. Presence of generalized osteoarthritis. Osteoarthritis in both knees. There is a component of degenerative changes and rotator cuff tendinopathy in the left shoulder. Patient received steroid injection in the left shoulder and left knee. Recommend using topical treatment like Voltaren gel or Aspercreme with lidocaine cream 3-4 times daily. Recommend using Tylenol together with the hydrocodone as needed for joint pain. History of osteoporosis. Patient received the 2nd Reclast infusion in December. Will repeat DEXA scan next year to monitor bone mineral density. Recommend taking calcium and vitamin-D supplement daily. Patient has been complaining of chronic low back pain with intermittent sciatica in the right lowerextremity. Recommend physical medicine and rehabilitation for a multimodality approach. Return to clinic in 5 months for follow-up or sooner if needed. Excluding procedure time, total of 40 minutes was spent reviewing previous medical records, consulting patient and charting. Man Sánchez. Rhe[facility] 05/17/2025 This note consists of symbols derived from keyboarding, and voice recognition software. As a result, wrong word or 'isigy-p-lumo' substitutions may have occurred due to the inherent limitations of voice recognition software. There may be errors in the script that have gone undetected. Please consider this when interpreting information found in this chart. [1] Patient Active Problem List Diagnosis Psoriatic arthropathy [...] H/O alcohol abuse Diastolic dysfunction, left ventricle Stage 3a chronic kidney disease (HRC) Vitamin D deficiency (HRC) Family history [...] (HRC) Anticoagulated COPD (chronic obstructive pulmonary disease) (HRC) History of pulmonary embolism History of non-ST elevation myocardial infarction (NSTEMI) (HR) [2] Past Medical History: Diagnosis Date ETOH abuse went through rehab 2007 Gastritis 03/2009 Hypertension ([facility]) 04/13/2009 Kidney stone LBP (low back pain) Morbid obesity with BMI of 40.0-44.9, adult ([facility]) 11/15/2015 Pneumonia 12/10/2016 with PE Pulmonary embolism ([facility]) 12/14/2016 Rheumatoid arthritis(714.0) ([facility]) 12/25/2008 Shoulder impingement 04/03/2013 [3] Past Surgical History: Procedure Laterality Date COLONOSCOPY W/ POLYPECTOMY ([facility]) 10/26/2018 2 specimens (5 polyp). 3 year follow up ESOPHAGOGASTRODUODENOSCOPY ([facility]) 04/14/09 eswl LUMBAR FUSION ([facility]) 04/2010 lami and fusion; Dr Corea [4] Social History Tobacco Use Smoking Status Never Smokeless Tobacco Never CCO SPRAYER documented in this encounter Plan of Treatment Upcoming Encounters Date Type Department Care Team (Late st Contact Info) Description 10/15/2025 11:30 AM CDT Appointment Rheumatology at [facility] [address] [address] Man Sánchez MD [address] [place] [address] 10/15/2025 12:00 PM CDT Appointment [facility] [address] [place] [address] Man Sánchez MD [address] [place] [address] Scheduled Orders Name Type Priority Associated Diagnoses Orde r Schedule DXA Bone Density Spine/Hip Imaging New Routine Age related osteoporosis, unspecified pathological fracture presence (HRC) Expected: 05/17/2025 (Approximate), Expires: 06/16/2027 Scheduled Referrals Name Type Priority Associated Diagnoses Orde r Schedule Physical Medicine & Rehab Consult-Adults Referral Routine 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) Ordered: 05/17/2025 documented as of this encounter Visit Diagnoses Diagnosis Rheumatoid arthritis involving multiple joints (HRC)- Primary 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) High risk medication use Encounter for long-term (current) use of other medications Primary osteoarthritis of both knees Primary localized osteoarthrosis, lower leg Current chronic use of systemic steroids Age related osteoporosis, unspecified pathological fracture presence (HRC) Transaminitis Nonspecific elevation of levels of transaminase or lactic acid dehydrogenase (LDH) documented in this encounter Care Teams Swing Ride Operator Relationship Specialty Start Date End Date Basilio Healy MD [facility] [address] [place] [address] PCP - General Family Practice 10/28/22 documented as of this encounter
[2025-05-21] VITALS (57 sets, daily range): BP systolic 86–141; BP diastolic 30–121; PULSE 87–124; RESP 12–30; TEMP 36.1–38.4; O2SAT 88–100; BMI 39.8
--- OUTSIDE RECORDS SUMMARY | 2025-05-21 11:09 | XMS_ITS | Clinical Summary ---
Author Organization [facility] Address [address] [place] [address] Care Team Providers Care Area Loss Prevention Manager Name Role Phone Basilio Healy MD Primary Care Provider [phone] Source Comments You are receiving this document [...] for each transition of care or referral. [facility] Allergies Active Allergy Reactions Criticality Noted Date Comments Levofloxacin Other, see comments 02/02/2022 Muscles snapped Nsaids Other, see comments High 03/18/2011 HUT Reaction: GI Bleeding; HUT Severity: High; [facility] Noted: [id number] Terbinafine Muscle Aches/Weakness 02/02/2022 Medications Cholecalciferol 2000 UNITS Take 2,000 Int'l Units by mouth daily. 015 Active Multiple Vitamins-Mineral s (MULTIVITAMIN ADULT OR) Take 1 tablet by mouth daily (every 24 hours). 016 Active Probiotic Product (SUPER PROBIOTIC OR) daily. Active rosuvastatin (CRESTOR) 5 MG tablet Take 1 Tablet (5 mg) by mouth daily. Active valGANciclovir (VALCYTE) 450 MG tablet Take 1 Tablet (450 mg) by mouth daily. Active Apixaban (ELIQUIS OR) 2.5 mg two times a day. Active ascorbic acid (VITAMINC) 250 MG tablet Take 1 Tablet (250 mg) by mouth daily. Active furosemide (LASIX) 40 MG tablet Take 1 Tablet (40 mg) by mouth daily. 023 Active DULoxetine (CYMBALTA) 60 MG capsule Take 1 Capsule (60 mg) by mouth daily. Active DICLOFENAC SODIUM OP Apply 1 % topically every 4 hours. Active predniSONE (DELTASONE) 5 MG tabletIndication s:Rheumatoid arthritis involving multiple joints (HRC),High risk medication use 7.5 mg daily. Decrease by 2.5 mg every 2-4 weeks if tolerated. 135 Tablet 1 025 Active potassium chloride 10 MEQ controlled release capsule Take 1 Capsule (10 mEq) by mouth daily. Active pregabalin (LYRICA) 50 MG capsule Take 1 Capsule (50 mg) by mouth two times a day. Active metoprolol succinate (TOPROL XL) 25 MG 24 hour release tablet Take 1 Tablet (25 mg) by mouth two times a day. 024 Active sulfaSALAzine (AZULFIDINE) 500 MG tabletIndication s:Rheumatoid arthritis involving multiple joints (HRC),High risk medication use Take 2 Tablets (1,000 mg) by mouth two times a day. 360 Tablet 2 025 Active leflunomide (ARAVA) 20 MG tabletIndication s:Rheumatoid arthritis involving multiple joints (HRC),High risk medication use Take 1 Tablet (20 mg) by mouth daily. 90 Tablet 2 025 Active folic acid 1 MG tabletIndication s:Rheumatoid arthritis involving multiple joints (HRC),High risk medication use Take 2 Tablets (2 mg) by mouth daily. 180 Tablet 3 025 2025 Active albuterol 2.5 mg/3 mL, 0.083%, (PROVENTIL) nebulizer solutionIndicati ons:Bronchiectas is, uncomplicated (HRC) 1 Vial (2.5 mg) by Nebulization route every 6 hours as needed for Wheezing. 180 mL 11 022 2024 Discontinued ferrous gluconate (FERGON) 324 (38 Fe) MG tablet Take 1 Tablet (324 mg) by mouth daily. 2024 Discontinued fluticasone-salm eterol (ADVAIR HFA) 115-21 mcg/actuation inhaler Inhale 2 Puffs two times a day. With spacer. Rinse mouth/gargle after use. 1 Each 11 023 2024 Discontinued Active Problems Patient Care Coordination No te Formatting of this note migh t be different from the original. Rheumatology- Patient receives drug assistance for Enbrel from [employer]. Approved until 06/27/22-jm Problem Noted Date Diagnosed Date History of pulmonary embolism 02/18/2024 Acute respiratory failure with hypoxia 3 Acute on chronic heart failu re with preserved ejection fraction 05/05/2023 Anticoagulated 05/05/2023 COPD (chronic obstructive pulmonary disease) 01/2023 History of non-ST elevation myocardial infarctio n (NSTEMI) 05/05/2023 DNR (do not resuscitate) 10/28/2022 Overview (10/28/2022): [...] left ventricle 11/10/2013 Overview (04/27/2019): Echocardiogram 09/2013 [place]; Ejection fraction 65% Stage 3a chronic kidney disease 11/10/2013 Vitamin D deficiency 08/23/2013 Family history of breast cancer in first degree relative 05/14/2013 Overview (04/28/2019): Mother, daughter: Stress to patient need for annual mammogram; annual physical exam breast and bobbin washer Chronic anxiety 12/21/2011 Overview (04/28/2019): Start sertraline 11/26/11; improved although residual; increase dose from 50mg to 100mg 12/21/2011. Patient discontinued 05/2012. 12/20/2012 start venlafaxine 37.5mg Osteopenia 12/07/2011 Overview (04/28/2019): Digital Media Director wants patient to be on alendronate indefinitely [...] Psoriatic arthropathy 06/05/2004 Overview (02/17/2017): LW Onset: [id number] ; Arthritis Psoriatic Resolved Problems Problem Noted [...] Overview (04/28/2019): HGB 9.6 ON ADMIT TO [facility] 03/2009; ENDOSCOPY REVEALED SHALLOW GASTRIC ULCERATIONS [...] Encounters Date Type Department Care Team Description 05/17/2025 3:00 PM CONSUMER EXPERIENCE CONSULTANT Office Visit Rheumatology at [facility] [place] [id number] Man Sánchez MD Rheumatoid arthritis involving multiple joints (HRC) (Primary Dx); 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); High risk medication use; Primary osteoarthritis of both knees; Current chronic use of systemic steroids; Age related osteoporosis, unspecified pathological fracture presence (HRC); Transaminitis from Last 3 Months Immunizations Immunization Administration Dates Next Due Flu Vac (3+ yrs) 04/03/2013, 2,04/30/2010,2008,04/10/2003 Flu Vac Preserv Free (3+yrs) 04/30/2010,04/15/20 09 HepA Adult (19+ yrs) 10/20/2004,03/07/2004 HepA Ped/Adol (1-18 yrs) 10/20/2004 HepA, Pediatric (DO NOT USE; for MIIC only) 10/20/2004 IPV (Polio) 03/07/2004 Influenza IIV3 (Trivalent) F luzone Highdose, 65+ Yrs (29824) 04/25/2019,03/09/2016,03/30/2014 Influenza IIV4 (Quadrivalent ) 0.5mL (37817) 04/23/2021,04/25/2019,04/19/2018,2015,03/30/2014,04/03/2013,04/15/2012,1 06/30/2009,04/15/2009,04/10/2003 Influenza IIV4 (Quadrivalent ) Fluzone, [...] 10/15/2025 11:30 AM CDT Appointment Rheumatology at [facility] [place] [address] [address] [address] [place], [place] [address] Man Sánchez MD [address] [place] [phone] 10/15/2025 12:00 PM CDT Appointment [facility] [facility] [address] [place], [place] [phone] Man Sánchez MD [address] [place] [address] Health Maintenance Due Date Last Done Comments Medicare Annual Wellness Visit 1945 Pneumococcal PCV20 Immunization Discussion 1945 Tuberculosis Screening 1945 RSV Vaccine (1 - 1-dose 75+ series) 2022 Colonoscopy 10/27/2023 10/26/2018 (Comp leted), 11/12/2008 (Completed) Dexa 10/07/2024 10/07/2022, 01/2018, 02/02/2018, Additional history exists COVID-19 Vaccine ( season) 2025 03/24/2022, 05/02/2021, 09/10/2020, Additional history exists DTaP/Tdap/Td Vaccine (3 - Tdap) 12/23/2030 12/23/2020, 05/28/2012, 03/15/2003 HepA Vaccine Completed 10/20/2004, 09/27, 10/20/2004, Additional history exists Hep C Screening (Preventive Services) Completed 12/12/2015 Pneumococcal Vaccine 50+ Yrs Completed 06/2015, 03/09/2016, 03/28/2015, Additional history exists Influenza Vaccine Completed 04/18/2025, , 05/04/2022, Additional history exists HepB Vaccine Aged Out [...] not included. Patient Name: Tanner James Densitometer: [employer] W Appt Dept/Resource: [facility] [...] trabecular bone, and is derived from the [id number] changes of bone density embedded in the [...] Performed by Real Time PCR CLIA Number [id number] HCV Quant iu/ml <12 IU/ml HP CONVERSION Comment:CLIA Number [id number] HCV Quant Log iu/ml <1.08 Log IU/ml HP CONVERSION Comment: Performed at [facility], [address] [place] [id number] CLIA Number [id number] 12/12/2015 11:4 4 AM CDT 12/12/2015 3:01 PM CDT Swapnil Henley MD LAB_1 Final Result HP CONVERSION from Last 3 Months or Most Recently Relevant to Health Maintenance Insurance MEDICARE [place] [id number] [facility] [place] [id number] Advance Directives Documents on File Type Date Recorded Patient Poultice Machine Operator Expl anation POLST 02/02/2017 01/05/2017 Care Teams Area Loss Prevention Manager Relationship Specialty Start Date End Date Basilio Healy MD [facility] [address] [place] [id number] PCP - General Family Practice 10/28/22
--- OUTSIDE RECORDS SUMMARY | 2025-05-21 11:09 | XMS_ITS | Clinical Summary ---
Author Organization [facility] Address [address] [place] [address] Care Team Providers Care Plastic Mixer Name Role Phone Swapnil Henley MD Unavailable Unavailable Marlys Woodruff William RD Unavailable [phone] Silvia Medinajackyuirdia Garcia ANGEL Unavailable [phone] Kyle Healy MD Primary Care Provider [phone] Allergies Active Allergy Reactions Criticality Noted Date [...] mg by mouth every 6 hours. Active amoxicillin 500 mg capsuleIndications: Need for antibiotic prophylaxis for dental procedure Take 4 capsules (2,000 mg) by mouth as needed 30-60 minutes prior to dental appointments. 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 Patient discontinued 05/2012. 12/20/2012 start venlafaxine 37.5mg Osteopenia 12/07/2011 05/05/2023 Overview (10/10/2018): Satellite Tv Installer wants patient to be on alendronate [...] Overview (11/13/2009): HGB 9.6 ON ADMIT TO [facility] 03/2009; ENDOSCOPY REVEALED SHALLOW GASTRIC ULCERATIONS WITH [...] Encounters Date Type Department Care Team Description 05/11/2025 Lab Requisition [facility] [address] [place] [address] Man Sánchez MD 05/11/2025 Travel 05/04/2025 [facility] [address] [place] [address] Stella Jacobo RN Heart Problem (s/p TAVR /SBE prophylaxis) 03/20/2025 [facility] [address] [facility] [place] [address] Kyle Healy MD from Last 3 Months [...] file Legal Sex Female 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 Gender Identity Not on file Sexual [...] this topic Medical Devices Implanted Type Area Signaling Project Engineer Device Identifier Shelf Expiration Date Model / Serial / Lot Screw Tsrh Og Thin 6.5x50mm - [id number] Implanted:Qty: 3 on 04/28/2010 at [facility] N/A: Spine [employer] [id number]# / / Screw Locking 4x20mm Fine Tip Titnm - [id number] Implanted:Qty: 4 on 04/28/2010 at [facility] Design [employer] [id number] # / / Screw Thin Crest 6.5x45mm - [id number] Implanted:Qty: 1 on 04/28/2010 at [facility] [id number]# / / Set Screw 3dx - [id number] Implanted:Qty: 4 on 04/28/2010 at [facility] [id number]# / / Cnnctr Tsrh 3dx Sm - [id number] Implanted:Qty: 4 on 04/28/2010 at [facility] Medtronic [id number]# / / Rios 3.5cmx5.5mm Pre-Cut - [id number] Implanted:Qty: 2 on 04/28/2010 at [facility] [id number]# / / Kit Infuse Md - [id number] Implanted:Qty: 1 on 04/28/2010 at [facility] Spine [facility] 10/26/2012 [id number]# / / [id number] Filler Bio [id number] - [id number] Implanted:Qty: 1 on 04/28/2010 at [facility] [id number]# / / [id number] Synfix Lr 26mm Implanted:Qty: 1 on 04/28/2010 at [facility] Spine [employer] 08.802.017 S / / [id number] Description:SYNFIX LR 26MM Procedures Procedure Name Priority Date/Time Associated Diagnosis Comments PLATELET ESTIMATE Routine 05/11/2025 8:2 5 AM 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 PUNCH PRESS OPERATOR Rheumatoid arthritis, unspecified (HC) CBC WITH AUTO DIFFERENTIAL Routine 05/11/2025 8:25 AM AUTOMATIC PUNCH PRESS OPERATOR Rheumatoid arthritis, unspecified (HC) CREATININE Routine 05/11/2025 8:25 AM AUTOMATIC PUNCH PRESS OPERATOR Rheumatoid arthritis, unspecified (HC) AST (SGOT) Routine 05/11/2025 8:25 AM AUTOMATIC PUNCH PRESS OPERATOR Rheumatoid arthritis, unspecified (HC) ALT (SGPT) Routine 05/11/2025 8:25 AM AUTOMATIC PUNCH PRESS OPERATOR Rheumatoid arthritis, unspecified (HC) CBC WITH AUTO DIFFERENTIAL Routine 05/11/2025 8:25 AM AUTOMATIC PUNCH PRESS OPERATOR Rheumatoid arthritis, unspecified (HC) XR DXA BONE DENSITY 2 SITES AXIAL Routine 02/02/2018 3:00 PM CDT Disorder of bone Osteopenia, unspecified location from Last 3 Months or Most Recently Relevant to Health Maintenance Results * (ABNORMAL) CBC WITH AUTO DIFFERENTIAL (05/11/2025 8:25 AM AUTOMATIC PUNCH PRESS OPERATOR) WHITE BLOOD COUNT 5.8 4.5 - 11.0 thou/cu mm 05/11/2025 10:24 AM [facility] RED BLOOD COUNT 3.84(L) 4.00 - 5.20 mil/cu mm 05/11/2025 10:24 AM [facility] HEMOGLOBIN 12.4 12.0 - 16.0 g/dL 05/11/2025 10:24 AM [facility] HEMATOCRIT 39.0 33.0 - 51.0 % 05/11/2025 10:24 AM [facility] MCV 102(H) 80 - 100 fL 05/11/2025 10:24 AM [facility] MCH 32.3 26.0 - 34.0 pg 05/11/2025 10:24 AM [facility] MCHC 31.8(L) 32.0 - 36.0 g/dL 05/11/2025 10:24 AM [facility] RDW 14.2 11.5 - 15.5 % 05/11/2025 10:24 AM [facility] PLATELET COUNT 89(L) 140 - 440 thou/cu mm 05/11/2025 10:24 AM [facility] MPV 12.2(H) 6.5 - 11.0 fL 05/11/2025 10:24 AM [facility] NRBC 0.0 % 05/11/2025 10:24 AM [facility] ABS NRBC 0.0 thou /cu mm 05/11/2025 10:24 AM [facility] % NEUT 52.6 % 05/11/2025 10:24 AM [facility] % LYMPH 36.3 % 05/11/2025 10:24 AM [facility] % MONO 8.0 % 05/11/2025 10:24 AM [facility] % EOS 2.1 % 05/11/2025 10:24 AM [facility] % BASO 0.7 % 05/11/2025 10:24 AM [facility] % IMMATURE GRAN (METAS,MYELOS,FL OS) 0.3 % 05/11/2025 10:24 AM [facility] ABSOLUTE NEUTROPHILS 3.1 1.7 - 7.0 thou/cu mm 05/11/2025 10:24 AM [facility] ABSOLUTE LYMPHOCYTES 2.1 0.9 - 2.9 thou/cu mm 05/11/2025 10:24 AM [facility] ABSOLUTE MONOCYTES 0.5 <0.9 thou/cu mm 05/11/2025 10:24 AM [facility] ABSOLUTE EOSINOPHILS 0.1 <0.5 thou/cu mm 05/11/2025 10:24 AM [facility] ABSOLUTE BASOPHILS 0.0 <0.3 thou/cu mm 05/11/2025 10:24 AM [facility] ABSOLUTE IMMATURE GRANULOCYTES(MET ,MYELOS,PROS) 0.0 <0.3 thou/cu mm 05/11/2025 10:24 AM [facility] Blood BLOOD SPECIMEN / Unknown Non-Lab Venipuncture / Unknown 05/11/2025 8:25 AM AUTOMATIC PUNCH PRESS OPERATOR 05/11/2025 9:46 AM AUTOMATIC PUNCH PRESS OPERATOR Result Salvador Sánchez MD HEMATOLOGY Final Result Performing Organization Address City/[facility]/ZIP Co de Phone Number [facility] SENDOUT INTERNAL ZIP [address] [place] [address] * (ABNORMAL) PLATELET ESTIMATE (05/11/2025 8:25 AM AUTOMATIC PUNCH PRESS OPERATOR) Pathologist [facility] PLATELET ESTIMATE Decreased (A) Adequate, No estimate 05/11/2025 10:24 AM AUTOMATIC PUNCH PRESS OPERATOR [facility] Blood BLOOD SPECIMEN / Unknown Non-Lab Venipuncture / Unknown 05/11/2025 8:25 AM AUTOMATIC PUNCH PRESS OPERATOR 05/11/2025 9:46 AM AUTOMATIC PUNCH PRESS OPERATOR Result Salvador Sánchez MD HEMATOLOGY Final Result Performing Organization Address [facility] SENDOUT INTERNAL ZIP [phone] [place] [phone] * (ABNORMAL) CREATININE (05/11/2025 8:25 AM AUTOMATIC PUNCH PRESS OPERATOR) Pathologist [facility] eGFR 54(L) >90 mL/min/1.7 3m2 05/11/2025 10:08 AM AUTOMATIC PUNCH PRESS OPERATOR [facility] Comment:As of 2021, eG FR is calculated by the CKD-EPI creatinine equation without race adjustment. eGFR can be influenced by muscle mass, exercise, and diet. The reported eGFR is an estimation only and is only applicable if the renal function is stable. CREATININE 1.06(H) 0.50 - 0.90 mg/dL 05/11/2025 10:08 AM AUTOMATIC PUNCH PRESS OPERATOR [facility] Blood BLOOD SPECIMEN / Unknown Non-Lab Venipuncture / Unknown 05/11/2025 8:25 AM AUTOMATIC PUNCH PRESS OPERATOR 05/11/2025 9:46 AM AUTOMATIC PUNCH PRESS OPERATOR Result Salvador Sánchez MD CHEMISTRY Final Result Performing Organization Address [facility] Co de Phone Number [facility] SENDOUT INTERNAL ZIP [phone] [place] [address] [place] [address] * (ABNORMAL) ALT (SGPT) (05/11/2025 8:25 AM AUTOMATIC PUNCH PRESS OPERATOR) ALT (SGPT) 39(H) 10 - 35 IU/L 05/11/2025 10:08 AM AUTOMATIC PUNCH PRESS OPERATOR [facility] Blood BLOOD SPECIMEN / Unknown Non-Lab Venipuncture / Unknown 05/11/2025 8:25 AM AUTOMATIC PUNCH PRESS OPERATOR 05/11/2025 9:46 AM AUTOMATIC PUNCH PRESS OPERATOR Man Sánchez MD CHEMISTRY Final Result [facility] SENDOUT INTERNAL ZIP [address] [place] [address] * (ABNORMAL) AST (SGOT) (05/11/2025 8:25 AM AUTOMATIC PUNCH PRESS OPERATOR) AST (SGOT) 52(H) 10 - 35 IU/L 05/11/2025 10:08 AM AUTOMATIC PUNCH PRESS OPERATOR [facility] Blood BLOOD SPECIMEN / Unknown Non-Lab Venipuncture / Unknown 05/11/2025 8:25 AM AUTOMATIC PUNCH PRESS OPERATOR 05/11/2025 9:46 AM AUTOMATIC PUNCH PRESS OPERATOR Man Sánchez MD CHEMISTRY Final Result [facility] SENDOUT INTERNAL ZIP [address] [place] [address] * XR DXA BONE DENSITY 2 SITES AXIAL (02/02/2018 3:00 PM CDT) Anatomical Region Laterality Modality Spine, HIPS, HIPL, HIPR Other 02/02/2018 3:41 PM CDT Narrative 02/02/2018 3:44 PM CDT EXAM: XR DXA BONE DENSITY 2 SITES AXIAL INDICATION: Disorder of bone. Osteopenia. Postmenopausal. TECHNIQUE: Standardized bone density measurements were obtained using the [employer] bone densitometry system. COMPARISON: None. FINDINGS: SPINE: [...] bone density measurements were obtained using the [employer] bone densitometry system. COMPARISON: None. FINDINGS: SPINE: [...] Most Recently Relevant to Health Maintenance Insurance [facility] MEDICARE PART B HB ONLY MEDICARE PB ONLY MEDICARE PART A HB ONLY MEDICARE PROVIDER BASED [facility] [place] [address] [employer] [place] [address] MEDICARE PROVIDER BASED [employer] [place] [address] HC MEDICARE PPS Advance Directives Documents on File Type Date Recorded Patient Interpretative Dancer Expl anation POLST 04/29/2021 POLST 02/02/2017 1:11 [...] Code Status Discussion: Reviewed Preferences Care Teams Plastic Mixer Relationship Specialty Start Date End Date Kyle Healy MD [address] [place] [address] PCP - General Family Practice 07/14/23 Swapnil Henley MD Rheumatology 12/20/12 Marlys Woodruff, RD [address] [place] [address] Registered Dietitian Supervisor Asphalt Paving 07/05/18 Funmi Medina, ANGEL [address] [place], [place] [phone] Occupational Therapy 05/11/23 Mary Carpio Cardiology - Interventional 01/12/18 DR. Luo Dentistry - General 01/12/18
--- OUTSIDE RECORDS SUMMARY | 2025-05-21 11:09 | XMS_ITS | Encounter Summary ---
Author Organization [facility] Address [address] [place] [address] Care Team Providers Care Lead Rider Name Role Phone Basilio Healy MD Primary Care Provider [phone] Reason for Visit * Reason Comments Refill Encounter Details Date Type Department Care Team (Late st Contact Info) Description 02/06/2016 Refill Rheumatology at [address] [place], [place] [phone] Swapnil Henley MD Refill Social History Tobacco [...] Department Care Team (Late Contact Info) Description 10/15/2025 11:30 AM CDT Appointment Rheumatology at [facility] [address] [address] [address] [place] [address] Man Sánchez MD [address] [place] [phone] 10/15/2025 12:00 PM CDT Appointment [facility] [address] [place] [address] Man Sánchez MD [address] [place] [address] documented as of this encounter Visit Diagnoses Not on filedocumented in this encounter Care Teams Lead Rider Relationship Specialty Start Date End Date Basilio Healy MD [facility] [address] [place] [address] PCP - General Family Practice 10/28/22 documented as of this encounter
--- NOTE | 2025-05-21 11:22 | ED.FEVER ---
HPI - Fever General Time Seen by Provider: : Date Seen: 05/21/25 Chief Complaint: Fever Stated Complaint: SOB Time Seen by Provider: 05/21/25 11:22 Source: patient, EMS and RN notes reviewed Mode of arrival: EMS History of Present Illness HPI Narrative: Nursing staff came to get me on this patient, she was brought in by EMS from [facility] and they were concerned about sepsis. Her temperature is 101.2 F on arrival. Staff called as patient was not feeling well and did not look good. She has history of atrial fibrillation and is anticoagulated but is tachycardic. She was complaining of shortness of breath, does have COPD. She was 88% on arrival here, not on chronic oxygen. We did place her on 1 L nasal cannula, EMS did give her a DuoNeb in route. She is known to have history of UTI issues as well. Patient states she does feel a little better after the DuoNeb from EMS, she is also notably on 1 L nasal cannula oxygen. She states she has been coughing since Wednesday, no known ill contacts. Denies any urinary symptoms, no abdominal pain, no nausea vomiting or diarrhea. She does feel some chest discomfort with this. She is chronically anticoagulated with Eliquis for her atrial fibrillation. She has a history of aortic stenosis and status post TAVR. She also has had a history of pulmonary embolism. Patient has had a history non STEMI mi, UTIs. She has had a history kidney stones. She does have COPD. She has had left nephrectomy, cholecystectomy, history of lithotripsy. She is also on Lasix for history of CHF. She does have rheumatoid arthritis, is on prednisone daily. May need to consider stress doses of steroids for her. elicited complaint: fever Related Data Home Medications ?Medication ?Instructions ?Recorded ?Confirmed Lactobacillus acidophilus 0.5 mg 100 mmu cells PO DAILY 12/22/21 05/21/25 (100 million cell) tablet cholecalciferol (vitamin D3) 50 50 mcg PO DAILY 01/16/22 05/21/25 mcg (2,000 unit) capsule multivitamin 1 tab PO QAM 01/16/22 05/21/25 sulfasalazine 500 mg tablet 1 g PO BID 12/29/23 05/21/25 ascorbic acid (vitamin C) 500 mg 500 mg PO QDAY 10/18/24 05/21/25 tablet folic acid 1 mg tablet 1 mg PO QDAY 10/18/24 05/21/25 leflunomide 20 mg tablet 20 mg PO DAILY 10/18/24 05/21/25 nystatin 100,000 unit/gram topical 1 applic topical BID PRN 02/02/25 05/21/25 powder prednisone 5 mg tablet 7.5 mg PO DAILY 02/02/25 05/21/25 Previous Rx's ?Medication ?Instructions ?Recorded valganciclovir 450 mg tablet 450 mg PO DAILY #90 tabs 05/10/24 rosuvastatin 5 mg tablet 5 mg PO HS #90 tabs 10/10/24 furosemide 40 mg tablet 40 mg PO DAILY #90 tabs 11/09/24 metoprolol succinate 25 mg 25 mg PO BID #180 tabs 11/22/24 tablet,extended release 24 hr apixaban 5 mg tablet (Eliquis) 2.5 mg (1/2 x 5 mg) PO BID #90 tabs 01/04/25 potassium chloride 10 mEq 10 meq PO DAILY #90 caps 01/22/25 capsule,extended release pregabalin 50 mg capsule 50 mg PO BID #180 caps 02/21/25 hydrocodone 5 mg-acetaminophen 325 1 tab PO BID PRN pain #60 tabs 04/30/25 mg tablet duloxetine 60 mg capsule,delayed 60 mg PO DAILY #90 caps 05/21/25 release Allergies Allergy/AdvReac Type Severity Reaction Status Date / Time NSAIDS (Non-Steroidal Allergy Severe GI bleed Verified 04/28/25 10:56 Anti-Inflamma terbinafine Allergy Intermediate Headache Verified 04/28/25 10:56 levofloxacin AdvReac Severe tendon Verified 04/28/25 10:56 rupture Review of Systems Status of ROS Reports: 6 or more systems reviewed and unremarkable except as noted in History and below [facility] Medical History 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) History of adenomatous polyp of colon ?Z86.010 - Personal history of colonic polyps (ICD-10) Pulmonary infiltrates ?R91.8 - Other nonspecific abnormal finding of lung field (ICD-10) Urinary tract infection ?N39.0 - Urinary tract infection, site not specified (ICD-10) Chronic pain ?G89.29 - Other chronic pain (ICD-10) Pressure ulcer of other site, stage 4 ?L89.894 - Pressure ulcer of other site, stage 4 (ICD-10) Hematoma ?T14.8XXA - Other injury of unspecified body region, initial encounter (ICD-10) Congestive heart failure ?I50.9 - Heart failure, unspecified (ICD-10) Non-ST elevated myocardial infarction (non-STEMI) ?I21.4 - Non-ST elevation (NSTEMI) myocardial infarction (ICD-10) 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 - Aneurysm of artery of lower extremity (ICD-10) Obesity (BMI 30.0-34.9) ?E66.9 - Obesity, unspecified (ICD-10) Alcohol use disorder ?F10.90 - Alcohol use, unspecified, uncomplicated (ICD-10) Pulmonary embolism ?I26.99 - Other pulmonary embolism without acute cor pulmonale (ICD-10) Gastrointestinal hemorrhage ?K92.2 - Gastrointestinal hemorrhage, unspecified (ICD-10) Aortic stenosis, severe ?I35.0 - Nonrheumatic aortic (valve) stenosis (ICD-10) History of kidney stones ?Z87.442 - Personal history of urinary calculi (ICD-10) Mitral annular calcification ?I05.9 - Rheumatic mitral valve disease, unspecified (ICD-10) Surgical History Status post transcatheter aortic valve replacement (TAVR) using bioprosthesis ?Z95.3 - Presence of xenogenic heart valve (ICD-10) S/P cataract extraction ?Z98.49 - Cataract extraction status, unspecified eye (ICD-10) S/P cholecystectomy ?Z90.49 - Acquired absence of other specified parts of digestive tract (ICD-10) History of left nephrectomy ?Z90.5 - Acquired absence of kidney (ICD-10) History of lumbar fusion (04/2010) ?Z98.1 - Arthrodesis status (ICD-10) History of lithotripsy ?Z98.890 - Other specified postprocedural states (ICD-10) Family History Mother Breast cancer, Onset Age: 70 Sister Breast cancer, Onset Age: 35 Social History Narrative: Has been living at [facility] an intrapartum apartment with a interpersonal communications professor present for 4 hours on 3 days a week. Manages her own medications. Code status is DNR DNI What is your current living situation?: I presently have a place to live Problems where you live: no known problems Problems where you live details: n/a In the past 12 months, utilities in danger of being shut off: no In past 12 months, lack of transportation kept you from medical appts, meetings, work, or getting things needed for daily living: no In the past 12 mos, have been you worried that your food would run out before you had money to buy more?: never true In the past 12 mos, the food you bought just didn't last and you didn't have money to buy more?: never true Highest level of school completed/degree received: high school graduate Smoking Status: Never smoker Do you use any of these nicotine containing products: None Second hand tobacco smoke exposure: Yes How often do you have a drink containing alcohol: never How often do you have six or more drinks on one occasion: Never AUDIT-C Alcohol total score: 0 Non-prescribed substance use: denies use Caffeine: Yes How often does anyone, including family, friends and others, physically hurt you: never How often does anyone, including family, friends and others, insult or talk down to you: never How often does anyone, including family, friends and others, threaten you with harm: never How often does anyone, including family, friends and others, scream or curse at you: never service: No Exam Const Vital Signs, click to edit/add: Vital Signs - 24 hr 05/21/25 11:19 05/21/25 11:22 05/21/25 11:23 Temperature 101.2 F H Pulse Rate 111 H Pulse Rate [Pulse Oximeter] 124 H Respiratory Rate 28 H 26 H Blood Pressure Blood Pressure [Left Upper Arm] 118/48 L Pulse Oximetry 88 90 92 Oxygen Delivery Method Room Air Nasal Cannula Oxygen Flow Rate 1 05/21/25 11:23 05/21/25 11:30 05/21/25 11:31 Temperature Pulse Rate 97 119 H Pulse Rate [Pulse Oximeter] Respiratory Rate 18 22 Blood Pressure 141/121 H Blood Pressure [Left Upper Arm] Pulse Oximetry 92 94 95 Oxygen Delivery Method Nasal Cannula Oxygen Flow Rate 1 05/21/25 11:40 05/21/25 11:45 05/21/25 11:50 Temperature Pulse Rate 112 H Pulse Rate [Pulse Oximeter] Respiratory Rate 26 H 22 30 H Blood Pressure Blood Pressure [Left Upper Arm] Pulse Oximetry 100 100 Oxygen Delivery Method Nasal Cannula Oxygen Flow Rate 1 05/21/25 12:00 05/21/25 12:10 05/21/25 12:15 Temperature Pulse Rate 113 H 103 H Pulse Rate [Pulse Oximeter] Respiratory Rate 13 20 17 Blood Pressure Blood Pressure [Left Upper Arm] Pulse Oximetry 94 93 93 Oxygen Delivery Method Oxygen Flow Rate 05/21/25 12:20 05/21/25 12:25 05/21/25 12:30 Temperature Pulse Rate 110 H 109 H Pulse Rate [Pulse Oximeter] Respiratory Rate 20 25 H 27 H Blood Pressure 129/45 L Blood Pressure [Left Upper Arm] Pulse Oximetry 90 95 93 Oxygen Delivery Method Oxygen Flow Rate 05/21/25 12:32 05/21/25 12:33 05/21/25 12:40 Temperature Pulse Rate 108 H 111 H Pulse Rate [Pulse Oximeter] Respiratory Rate 18 20 20 Blood Pressure 112/54 L Blood Pressure [Left Upper Arm] Pulse Oximetry 94 94 94 Oxygen Delivery Method Oxygen Flow Rate 05/21/25 12:43 05/21/25 12:45 05/21/25 12:45 Temperature 99.2 F 99.2 F Pulse Rate 114 H Pulse Rate [Pulse Oximeter] Respiratory Rate 20 Blood Pressure Blood Pressure [Left Upper Arm] Pulse Oximetry 97 Oxygen Delivery Method Oxygen Flow Rate 05/21/25 12:46 05/21/25 12:50 05/21/25 13:00 Temperature 99.2 F Pulse Rate 109 H Pulse Rate [Pulse Oximeter] Respiratory Rate 24 Blood Pressure Blood Pressure [Left Upper Arm] Pulse Oximetry 94 95 Oxygen Delivery Method Oxygen Flow Rate 05/21/25 13:01 05/21/25 13:02 05/21/25 13:10 Temperature Pulse Rate 110 H 112 H Pulse Rate [Pulse Oximeter] Respiratory Rate 16 12 20 Blood Pressure 105/42 L Blood Pressure [Left Upper Arm] Pulse Oximetry 95 95 95 Oxygen Delivery Method Oxygen Flow Rate 05/21/25 13:15 05/21/25 13:20 05/21/25 13:30 Temperature Pulse Rate 108 H 107 H Pulse Rate [Pulse Oximeter] Respiratory Rate 20 20 18 Blood Pressure Blood Pressure [Left Upper Arm] Pulse Oximetry 95 95 94 Oxygen Delivery Method Oxygen Flow Rate 05/21/25 13:31 05/21/25 13:32 05/21/25 13:40 Temperature Pulse Rate 108 H 107 H Pulse Rate [Pulse Oximeter] Respiratory Rate 18 23 20 Blood Pressure 93/33 L Blood Pressure [Left Upper Arm] Pulse Oximetry 95 96 95 Oxygen Delivery Method Oxygen Flow Rate 05/21/25 13:43 05/21/25 13:44 05/21/25 13:45 Temperature Pulse Rate 104 H 103 H 105 H Pulse Rate [Pulse Oximeter] Respiratory Rate 22 21 25 H Blood Pressure 86/30 L Blood Pressure [Left Upper Arm] Pulse Oximetry 96 96 95 Oxygen Delivery Method Oxygen Flow Rate 05/21/25 13:50 05/21/25 13:58 05/21/25 13:59 Temperature Pulse Rate 98 99 Pulse Rate [Pulse Oximeter] Respiratory Rate 27 H 22 15 Blood Pressure 104/37 L Blood Pressure [Left Upper Arm] Pulse Oximetry 95 94 97 Oxygen Delivery Method Oxygen Flow Rate 05/21/25 14:00 05/21/25 14:15 05/21/25 14:29 Temperature Pulse Rate 99 99 Pulse Rate [Pulse Oximeter] Respiratory Rate 20 23 23 Blood Pressure 103/33 L Blood Pressure [Left Upper Arm] Pulse Oximetry 96 91 89 Oxygen Delivery Method Room Air Oxygen Flow Rate 05/21/25 14:30 05/21/25 14:31 05/21/25 14:45 Temperature Pulse Rate 99 99 101 H Pulse Rate [Pulse Oximeter] Respiratory Rate 22 25 H 25 H Blood Pressure 99/39 L Blood Pressure [Left Upper Arm] Pulse Oximetry 88 89 92 Oxygen Delivery Method Oxygen Flow Rate 05/21/25 15:00 05/21/25 15:01 05/21/25 15:06 Temperature Pulse Rate 98 97 100 Pulse Rate [Pulse Oximeter] Respiratory Rate 28 H 21 24 Blood Pressure 103/44 L 106/37 L Blood Pressure [Left Upper Arm] Pulse Oximetry 91 90 89 Oxygen Delivery Method Oxygen Flow Rate 05/21/25 15:15 05/21/25 15:30 05/21/25 15:31 Temperature Pulse Rate 95 93 94 Pulse Rate [Pulse Oximeter] Respiratory Rate 16 25 H 20 Blood Pressure 104/47 L Blood Pressure [Left Upper Arm] Pulse Oximetry 92 90 92 Oxygen Delivery Method Oxygen Flow Rate 05/21/25 15:45 Temperature Pulse Rate 95 Pulse Rate [Pulse Oximeter] Respiratory Rate 30 H Blood Pressure Blood Pressure [Left Upper Arm] Pulse Oximetry 92 Oxygen Delivery Method Oxygen Flow Rate Patient is seen in stab 1 due to her illness and that being only but open in the ED at this time. She is alert, interactive, looks like she does not feel well, is shaking, question if she is having rigors. Her speech is normal, no hoarseness. Sclera clear, symmetrical facial function. Lungs with poor effort on on breathing but do not hear any wheezing or crackles. She is tachycardic in the 120s on the monitor, looks to be AFib, CV is irregular fast, normal S1-S2, do not hear any murmur. Abdomen is obese but soft, no organomegaly, no masses, nontender. She does have venous stasis changes and chronic edema of both lower extremities, unclear what her baseline is but there is edema. Note no significant erythema or warmth that would indicate cellulitis. Documenting provider has reviewed patient's vital signs: yes Course Course ED Course: Patient is meeting criteria for sepsis, possible pulmonary source given her current complaints. Will try to get a UTI quickly. Will be getting a portable chest x-ray. Patient is had tendon rupture with levofloxacin before, will need to avoid fluoroquinolones. Nursing staff is going to need to collect urine as quickly as possible, may need to cath her. Have ordered blood cultures, have ordered sepsis fluids with ideal body weight given this patient does have a history of congestive heart failure. Do not want to fluid overload her. Will order Tylenol for her fever. Need to try to find source to tailor antibiotics otherwise his will consider vanco and cefepime. Reevaluation(s) Time of Reevaluation #1: 11:55 Reevaluation #1: Have asked nursing staff to make sure fluids are getting started, urine being collected. Her portable chest x-ray reading is back. This is possible that this could be something viral but given her chronic rheumatoid arthritis Time of Reevaluation #2: 13:41 Reevaluation #2: Have ordered a noncontrast chest abdomen pelvis. We definitely need to rule out any underlying kidney stones as urinalysis is positive. Patient is endorsing cough and respiratory symptoms. Noncontrast chest CT will help us elucidate any further lung pathology not seen on the portable chest x-ray. Her hemodynamics are improved as far as decrease temperature, better pulse, increased oxygenation. Blood pressure seems like it is trending down, last just put into the chart and is 93/33. Will see if it is time to repeat a lactate, initial 1 was 2.5. I am also ordering hydrocortisone 100 mg IV, could represent adrenal insufficiency as she is on chronic steroids. Obviously this could represent hypotension from sepsis. Will watch closely here and initiate vasopressors if needed. Did talk to patient and her daughter. Her blood pressure is now 86/30, heart rate down to 104. She is alert, conversive and looks much better. Her daughter agrees that she looks much better, felt her mom was confused this morning. We have discussed her situation, reviewed sepsis as well as adrenal insufficiency. Patient's advanced directive is DNR DNI. We have discussed that she will be going for CT imaging. Patient does have 1 kidney, does have a history kidney stones. We reviewed that if she were to have an obstructive infected kidney stone, that is a surgical emergency and would require transfer. The CT imaging will let us get a better look at the lungs as well. We did discuss that I am opting to do this without contrast, I feel like can get enough information with out the contrast based on the workup we have so far. They would prefer to stay here if possible. I did let them know that I will talk to the hospitalist but it is pending CT imaging and how she is doing after she gets her hydrocortisone and response to IV norepinephrine. She has gotten vancomycin and cefepime. We do need to repeat her lactate, will likely do a repeat troponin at that time. Patient did get 2000 mg vancomycin and 2 g IV cefepime. Her most recent urine culture in December grew E coli, resistant to Ancef, ampicillin and Unasyn. Sensitive to other cephalosporins. Time of Reevaluation #3: 14:14 Reevaluation #3: Patient systolic blood pressures up to 104, she is completing the last 3rd of her IV fluid bolus for sepsis. Nursing staff did not start the norepinephrine drip. Patient did get the hydrocortisone. Will continue to monitor the blood pressure and pulse. She has also been titrated off her 1 L of oxygen, is above 90%, will continue to monitor. We are waiting her CT to be done, will talk to the hospitalist in the interim. Consultations Consultation #1: Dr. Vasquez is here. Would like her to have chest CT PE protocol as she is on low-dose Eliquis and has had a history of pulmonary emboli. We will thus just do the abdomen pelvis after and will be with IV contrast. Patient was complaining of a headache to him, he would like a head CT done as well. These orders have been updated. He will accept this patient pending any outcomes on the imaging that we would not be able to attend to here. Her most recent blood pressure was at systolic 104 but had been lower when he was in the room. She is getting ideal body weight sepsis fluids. We are going to initiate 1 L of LR over 2 hours. Time: 15:04 Vital Signs Vital signs: Initial Vital Signs Temperature 101.2 F H 05/21/25 11:19 Temperature Source Temporal Artery Scan 05/21/25 11:19 Pulse Rate 124 H 05/21/25 11:19 Respiratory Rate 28 H 05/21/25 11:19 Blood Pressure 118/48 L 05/21/25 11:19 Blood Pressure Mean 71 05/21/25 11:19 Blood Pressure Position Supine 05/21/25 11:19 Pulse Oximetry 88 05/21/25 11:19 Oxygen Delivery Method Room Air 05/21/25 11:19 Vital Signs Temperature 101.2 F H 05/21/25 11:19 Pulse Rate 124 H 05/21/25 11:19 Respiratory Rate 28 H 05/21/25 11:19 Blood Pressure 118/48 L 05/21/25 11:19 Pulse Oximetry 88 05/21/25 11:19 Oxygen Delivery Method Room Air 05/21/25 11:19 Temperature 99.2 F 05/21/25 12:46 Pulse Rate 95 05/21/25 15:45 Respiratory Rate 30 H 05/21/25 15:45 Blood Pressure 104/47 L 05/21/25 15:31 Pulse Oximetry 92 05/21/25 15:45 Oxygen Delivery Method Room Air 05/21/25 14:00 Oxygen Flow Rate 1 05/21/25 11:40 Medications Administered Medications: Discontinued Medications Generic Name Dose Route Start Last Admin Trade Name Patoq PRN Reason Stop Dose Admin Hydrocortisone Sodium Succinate 100 mg 05/21/25 13:43 05/21/25 14:00 Hydrocortisone Sod Succinate 50 Mg/Ml Inj IVP 05/21/25 13:44 100 mg ONCE ONE Administration Sodium Chloride 3,060 mls @ 1,020 mls/hr 05/21/25 11:30 05/21/25 12:01 0.9 % Sodium Chloride 1000 Ml 30 ml/kg infuse over 3 hr (3060 ml) 05/21/25 14:29 Not Given IV .Q3H MICHELLE Acetaminophen 1,000 mg in 100 mls @ 400 mls/hr 05/21/25 11:26 05/21/25 12:35 Acetaminophen Inj IVPB 05/21/25 11:40 Infused ONCE ONE Infusion Sodium Chloride 1,572 mls @ 524 mls/hr 05/21/25 11:45 05/21/25 15:18 0.9 % Sodium Chloride 1000 Ml 30 ml/kg infuse over 3 hr (1572 ml) 05/21/25 14:44 Infused IV Infusion .Q3H MICHELLE Vancomycin/PEG/NADA/Lysine/Water 2 gm in 400 mls @ 200 mls/hr 05/21/25 11:58 05/21/25 15:22 Vancomycin 2 Gm/400 Ml IVPB 05/21/25 13:57 Infused ONCE ONE Infusion Protocol Cefepime HCl 2 gm/ Sodium 100 mls @ 200 mls/hr 05/21/25 11:58 05/21/25 13:14 Chloride IVPB 05/21/25 11:59 Infused ONCE ONE Infusion Lactated Ringer's 1,000 mls @ 500 mls/hr 05/21/25 15:08 05/21/25 16:12 Lactated Ringers 1000 Ml IV 05/21/25 17:07 500 mls/hr .Q2H MICHELLE Administration MDM - Fever Lab Data Attestation: I reviewed the patient's lab results. Labs: Lab Results 05/21/25 05/21/25 05/21/25 Range/Units 11: 12:15 14:14 WBC 14.28 H (4.50-11.00) K/uL RBC 4.00 (4.00-5.20) m/uL Hgb 13.1 (12.0-16.0) gm/dL Hct 42.5 (33.0-51.0) % MCV 106 H (80-100) fL MCH 33 (26-34) pg MCHC 31 L (32-36) gm/dL RDW Coeff of Nav[place] 14.4 (11.5-15.5) % Plt Count 81 L (140-440) K/uL Neut % (Auto) 77.4 H (42.0-72.0) % Lymph % (Auto) 16.7 L (20-44) % Catron % (Auto) 5.1 (0.0-11.0) % Eos % (Auto) 0.1 (0.0-7.0) % Baso % (Auto) 0.3 (0.0-3.0) % Neut # (Auto) 11.10 H (1.7-7.0) K/uL Lymph # (Auto) 2.40 (0.90-2.90) K/uL Catron # (Auto) 0.70 (0.00-0.90) K/UL Eos # (Auto) 0.00 (0.00-0.50) K/uL Baso # (Auto) 0.00 (0.00-0.30) K/uL Abs Immat Gran (auto) 0.10 (0.00-0.30) K/uL Imm/Tot Granulo (auto) 0.4 % VBG pH 7.385 (7.32-7.43) VBG pCO2 49 (40-50) mmHG VBG pO2 < 30.1 (25-47) mmHG VBG HCO3 29 H (21-28) mmol/L Sodium 137 (135-149) mmol/L Potassium 4.4 (3.6-5.1) mmol/L Chloride 100 (96-114) mmol/L Carbon Dioxide 28 (20-32) mmol/L Anion Gap 9 (7-15) mEq/L BUN 24 (7-30) mg/dL Creatinine 1.1 (0.5-1.5) mg/dL Estimated Creat Clear 35.43 Estimated GFR 52 ml/min Glucose 133 H (60-115) mg/dL Lactate 2.5 H 1.4 (0.5-1.9) mmol/L Calcium 9.0 (8.4-10.6) mg/dL Total Bilirubin 1.3 (0.1-1.5) mg/dL Direct Bilirubin 0.0 (0.0-0.5) mg/dL AST 77 H (12-35) U/L ALT 55 H (4-35) U/L Alkaline Phosphatase 148 (40-150) U/L Troponin I 0.06 H* 0.09 H* (0.01-0.04) ng/mL C-Reactive Protein 7.0 H (0.5-1.0) mg/dL NT-Pro-B Natriuret Pep 5230 H (See Note) pg/mL Total Protein 6.9 (6.0-8.3) g/dL Albumin 4.0 (3.3-5.0) g/dL Urine Color Dark yellow (Yellow) Urine Appearance Cloudy A (Clear) Urine pH 7.0 (5.0-8.5) Ur Specific [place] 1.015 (1.000-1.030) Urine Protein 1+ A (Negative) Urine Glucose (UA) Negative (Negative) Urine Ketones Negative (Negative) Urine Blood Negative (Negative) Urine Nitrite Positive A (Negative) Urine Bilirubin 1+ A (Negative) Urine Urobilinogen 0.2 (0.2-1.0) Ur Leukocyte Esterase Negative (Negative) Urine RBC 0-2 (0-2) Urine WBC 0-2 (0-5) Ur Squamous Epith Cells None (None-Few) Urine Bacteria Many A (None) SARS-CoV-2 (PCR) Negative SARS-CoV-2 (Negative) Influenza Type A (PCR) Negative PCR FLU A (Negative) Influenza Type B (PCR) Negative PCR FLU B (Negative) RSV (PCR) Negative PCR RSV (Negative) Imaging Data Chest x-ray: Attestation: I have reviewed the pertinent imaging results. My impression: Visualize portable chest x-ray will in the room, do not see any definitive infiltrate or congestive heart failure but poor inspiratory effort on my preliminary review. Radiologist's impression: Patient: BRYCE STALLINGS Facility:?[facility] Patient ID:?[id number] Site Patient ID:?[id number]. Site :?[id number] Study:?XRay-Chest PORTABLE-05/21/2025 11:40:31 AM Ordering Physician:?Mona Hagan Final Report: Indication: COUGH, FEVER Technique: AP view of the chest. Comparison: 12/19/2024. Findings: No lung volumes. Normal cardiomediastinal silhouette. Transcatheter aortic valve replacement. Mild peribronchial cuffing. No focal consolidation, pleural effusions, or visualized pneumothorax. Impression: Mild peribronchial cuffing may relate to low lung volumes or represent airways infection or inflammation. Dictated by Dequan Mata MD @ 05/21/2025 11:53:53 AM (Electronic Signature) CT scan - head: Attestation: I have reviewed the pertinent imaging results. Radiologist's impression: Patient: BRYCE STALLINGS Facility:?[facility] Patient ID:?[id number] Site Patient ID:?[id number]. Site :?[id number] Study:?CT-Head W/O-05/21/2025 4:01:04 PM Ordering Physician:?Mona Hagan Final Report: INDICATION: Headache TECHNIQUE: CT of the head without contrast. Coronal and sagittal reformats. Bone and soft tissue algorithms. COMPARISON: CT 01/12/2024 FINDINGS: No acute intracranial hemorrhage or extra-axial collection. No evidence of acute cortical infarction. No mass effect or midline shift. Mild generalized parenchymal volume loss. Mild regions of decreased attenuation within the periventricular and subcortical white matter of both cerebral hemispheres most likely reflect chronic microvascular ischemic disease and age related change in this patient. Vascular calcifications within the carotid siphons. Bilateral lens replacement. No calvarial fractures. No lytic or sclerotic osseous lesions within the calvarium or skull base. Scalp and other imaged soft tissue structures are normal. Mastoid air cells are clear. Cerumen in the right external ear canal. IMPRESSION: No acute intracranial abnormality. No significant changes compared to the prior exam. Please note that all CT scans at this facility use dose modulation, iterative reconstruction, and/or weight-based dosing when appropriate to reduce radiation dose to as low as reasonably achievable. Dictated by José Miguel Cuevas MD @ 05/21/2025 4:10:06 PM (Electronic Signature) CT Chest/Ab/Pelvis: Attestation: I have reviewed the pertinent imaging results. Radiologist's impression: Patient: BRYCE STALLINGS Facility:?[facility] Patient ID:?[id number] Site Patient ID:?[id number]. Site :?[id number] Study:?CT-Chest Angio W/IV PE PROTOCOL-05/21/2025 4:14:40 PM Ordering Physician:?Mona Hagan Final Report: Indication: Shortness of breath, tachycardia, history of PE Technique: Volumetric multidetector CT images of the chest were obtained after the administration of IV contrast. 95 cc Isovue 370 low osmolar intravenous contrast Comparison: CT chest December 19, 2024 Findings: The thoracic inlet and thyroid gland are unremarkable. The thoracic aorta is nonaneurysmal with scattered atherosclerotic calcification and aortic valve prosthesis. No obvious central filling defect to suggest pulmonary embolus. Mildly limited evaluation of the lower lobe pulmonary arteries secondary to respiratory motion artifact. No obvious central filling defect. There is no mediastinal, hilar or axillary adenopathy. There is persistent moderate central bronchial thickening. There is dependent basilar atelectasis and parenchymal scarring with questionable mild interstitial prominence within the peripheral upper lobes commensurate with pulmonary edema. There is no evidence of pulmonary mass or suspicious pulmonary nodule. The partially visualized upper abdomen demonstrates prior cholecystectomy. Again seen is exaggerated thoracic kyphosis with moderate degenerative disc disease and flowing anterior osteophytosis. 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 Impression: 1. Persistent moderate central bronchial thickening with dependent basilar atelectasis and/or infiltrates. No definite filling defect to suggest pulmonary embolus. Mild interstitial prominence within the upper lobes which may represent mild pulmonary vascular congestion. Please note that all CT scans at this facility use dose modulation, iterative reconstruction, and/or weight-based dosing when appropriate to reduce radiation dose to as low as reasonably achievable. Dictated by Ugo Carlisle MD @ 05/21/2025 4:46:33 PM (Electronic Signature) Patient: BRYCE STALLINGS Facility:?[facility] Patient ID:?[id number] Site Patient ID:?[id number]. Site :?[id number] Study:?CT-Abdomen/Pelvis W/IV-05/21/2025 4:15:54 PM Ordering Physician:?Mona Hagan Final Report: Indication: Shortness of breath, tachycardia history of pulmonary embolus sepsis and kidney stones with single right kidney. Technique: Volumetric multidetector CT images of the abdomen and pelvis were obtained after the administration of intravenous contrast. 95 cc Isovue 370 low osmolar intravenous contrast Comparison: CT abdomen and pelvis February 01, 2025 Findings: There is persistent basilar pleural thickening with atelectasis and/or parenchymal scar versus residual infiltrates. The liver is normal in attenuation without intrahepatic biliary ductal dilatation. The portal vein is patent. Prior cholecystectomy. There is no significant common biliary ductal dilatation or abrupt cut off. The spleen again demonstrates a somewhat heterogeneous appearance with scattered splenic calcifications. The stomach and duodenum are grossly unremarkable. The pancreas is normal in enhancement without significant atrophy. The adrenal glands are unremarkable. There is prior left nephrectomy. Stable appearance of the right kidney with mild compensatory hypertrophy. No obstructive changes. Jlrr-bl-kwurozhs stool is seen within the mid to distal colon without focal abnormality. The appendix is surgically absent. There is no significant mesenteric, retroperitoneal, or pelvic sidewall lymph nodes. The aorta is nonaneurysmal. There is no significant atherosclerotic disease appreciated. Calcified uterine fibroids are appreciated. There is no free fluid or free air. Postoperative changes of the ventral abdomen are again seen. The lumbar vertebral body heights are stable from comparison with moderate to severe degenerative disc disease with disc height loss and marginal osteophyte formation. Stable pedicle screw fixation of the L4-L5 level. Impression: Prior left nephrectomy, cholecystectomy and appendectomy similar to previous exam without new acute intra-abdominal abnormalities. Please note that all CT scans at this facility use dose modulation, iterative reconstruction, and/or weight-based dosing when appropriate to reduce radiation dose to as low as reasonably achievable. Dictated by Ugo Carlisle MD @ 05/21/2025 4:58:02 PM (Electronic Signature) ECG Data Attestation: I personally reviewed and interpreted this ECG as follows: (Sinus tachycardia, 109 beats per minute. LVH with repolarization changes.) ECG interpretation date: 05/21/25 ECG interpretation time: 13:20 Prior ECG tracings: available for review (Prior EKGs with nonspecific ST segment changes, not with tachycardia.) Critical Care Time Critical Care Time Critical Care Time: Yes Attestation: The patient required my highest level preparedness to intervene emergently and I personally spent this critical care time directly and personally managing the patient. This critical care time included: Obtaining a history; Examining the patient; Pulse oximetry; Ordering and reviewing of studies; Arranging urgent treatment with development of a management plan; Evaluation of patients response to treatment; Frequent reassessment discussions with other providers. This critical care time was performed to assess and manage the high probability of imminent life-threatening deterioration that could result in multiorgan failure. It was exclusive of separate billable procedures and treating other patients and teaching time. Total Critical Care Time in Minutes: 30 Discharge Plan Discharge Clinical Impression: Sepsis Qualifiers: Sepsis type: sepsis due to unspecified organism Sepsis acute organ dysfunction status: without acute organ dysfunction Qualified Code(s): A41.9 - Sepsis, unspecified organism Urinary tract infection Qualifiers: Urinary tract infection type: acute cystitis Hematuria presence: without hematuria Qualified Code(s): N30.00 - Acute cystitis without hematuria Patient Disposition: Admitted As Inpatient Procedures ABG Interpretation ABG Results: 05/21/25 11:25 VBG pH 7.385 VBG pCO2 49 VBG pO2 < 30.1 VBG HCO3 29 H
--- NOTE | 2025-05-21 11:23 | CRLHL7_ITS ---
For Patients: As a result of the Century Cures Act, medical imaging exams and procedure reports are released immediately into your electronic medical record. You may view this report before your referring provider. If you have questions, please contact your health care provider. Indication: COUGH, FEVER Technique: AP view of the chest. Comparison: 12/19/2024. Findings: No lung volumes. Normal cardiomediastinal silhouette. Transcatheter aortic valve replacement. Mild peribronchial cuffing. No focal consolidation, pleural effusions, or visualized pneumothorax. Impression: Mild peribronchial cuffing may relate to low lung volumes or represent airways infection or inflammation. Dictated by Dequan Mata MD @ 05/21/2025 11:53:53 AM (Electronically Signed)
[2025-05-21 11:38] LABS: HCO3 VBG 29 mmol/L (21-28); Lactate* 2.5 mmol/L (0.5-1.9); PCO2 VBG 49 mmHG (40-50); PO2 VBG < 30.1 mmHG (25-47); pH VBG 7.385 (7.32-7.43)
[2025-05-21 11:42] LABS: Hematocrit* 42.5 % (33.0-51.0); Hemoglobin* 13.1 gm/dL (12.0-16.0); Immature Granulocytes Pct Auto 0.4 %; Mean Corpuscular HGB Conc 31 gm/dL (32-36); Mean Corpuscular Hemoglobin 33 pg (26-34); Mean Corpuscular Volume 106 fL (80-100); RDW Coefficient of Variation % 14.4 % (11.5-15.5); Red Blood Count* 4.00 m/uL (4.00-5.20); White Blood Count* 14.28 K/uL (4.50-11.00)
[2025-05-21 11:46] LABS: Immature Granulocytes Abs Auto 0.10 K/uL (0.00-0.30); Lymphocytes Absolute Auto 2.40 K/uL (0.90-2.90); Slide Review Reflex No
[2025-05-21] MEDS: ACETAMINOPHEN INJ 1,000 MG/100 ML VIAL 400 MG IVPB (12:08)
[2025-05-21 12:15] LABS: Albumin* 4.0 g/dL (3.3-5.0); Chloride* 100 mmol/L (96-114); Sodium* 137 mmol/L (135-149)
[2025-05-21 12:16] LABS: Potassium* 4.4 mmol/L (3.6-5.1)
[2025-05-21 12:18] LABS: Anion Gap 9 mEq/L (7-15); Blood Urea Nitrogen* 24 mg/dL (7-30); Carbon Dioxide* 28 mmol/L (20-32); Creatinine* 1.1 mg/dL (0.5-1.5); Est. Creatinine Clearance* 35.43; Estimated Glomerular Filt Rate 52 ml/min
[2025-05-21 12:19] LABS: Alanine Aminotransferase* 55 U/L (4-35); Alkaline Phosphatase* 148 U/L (40-150); Aspartate Amino Transferase* 77 U/L (12-35); Bilirubin Total* 1.3 mg/dL (0.1-1.5); Calcium* 9.0 mg/dL (8.4-10.6); Glucose* 133 mg/dL (60-115); Total Protein* 6.9 g/dL (6.0-8.3)
[2025-05-21 12:22] LABS: PCR FLU A Negative PCR FLU A (Negative); PCR FLU B Negative PCR FLU B (Negative); PCR RSV Negative PCR RSV (Negative); SARS PCR* Negative SARS-CoV-2 (Negative)
[2025-05-21] MEDS: CEFEPIME HCL 2 GM in 0.9 % SODIUM CHLORIDE Mini-bag 100 ML IVPB (12:36)
[2025-05-21 12:40] LABS: NT Pro B Type NatriureticPept* 5230 pg/mL (See Note)
[2025-05-21 12:53] LABS: Appearance Urine Cloudy (Clear)
[2025-05-21 12:53] LABS: Bilirubin Direct* 0.0 mg/dL (0.0-0.5)
[2025-05-21] MEDS: VANCOMYCIN 2 GM/400 ML 2 GM/400 ML PIGGYBACK IVPB (13:14)
[2025-05-21] MEDS: HYDROCORTISONE SOD SUCCINATE 50 MG/ML inj 100 MG IVP (14:00)
[2025-05-21 14:17] LABS: Lactate* 1.4 mmol/L (0.5-1.9)
--- NOTE | 2025-05-21 15:00 | CRLHL7_ITS ---
For Patients: As a result of the Century Cures Act, medical imaging exams and procedure reports are released immediately into your electronic medical record. You may view this report before your referring provider. If you have questions, please contact your health care provider. Indication: Shortness of breath, tachycardia, history of PE Technique: Volumetric multidetector CT images of the chest were obtained after the administration of IV contrast. 95 cc Isovue 370 low osmolar intravenous contrast Comparison: CT chest December 19, 2024 Findings: The thoracic inlet and thyroid gland are unremarkable. The thoracic aorta is nonaneurysmal with scattered atherosclerotic calcification and aortic valve prosthesis. No obvious central filling defect to suggest pulmonary embolus. Mildly limited evaluation of the lower lobe pulmonary arteries secondary to respiratory motion artifact. No obvious central filling defect. There is no mediastinal, hilar or axillary adenopathy. There is persistent moderate central bronchial thickening. There is dependent basilar atelectasis and parenchymal scarring with questionable mild interstitial prominence within the peripheral upper lobes commensurate with pulmonary edema. There is no evidence of pulmonary mass or suspicious pulmonary nodule. The partially visualized upper abdomen demonstrates prior cholecystectomy. Again seen is exaggerated thoracic kyphosis with moderate degenerative disc disease and flowing anterior osteophytosis. 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 Impression: 1. Persistent moderate central bronchial thickening with dependent basilar atelectasis and/or infiltrates. No definite filling defect to suggest pulmonary embolus. Mild interstitial prominence within the upper lobes which may represent mild pulmonary vascular congestion. Please note that all CT scans at this facility use dose modulation, iterative reconstruction, and/or weight-based dosing when appropriate to reduce radiation dose to as low as reasonably achievable. Dictated by Ugo Carlisle MD @ 05/21/2025 4:46:33 PM (Electronically Signed)
--- NOTE | 2025-05-21 15:01 | CRLHL7_ITS ---
For Patients: As a result of the Century Cures Act, medical imaging exams and procedure reports are released immediately into your electronic medical record. You may view this report before your referring provider. If you have questions, please contact your health care provider. Indication: Shortness of breath, tachycardia history of pulmonary embolus sepsis and kidney stones with single right kidney. Technique: Volumetric multidetector CT images of the abdomen and pelvis were obtained after the administration of intravenous contrast. 95 cc Isovue 370 low osmolar intravenous contrast Comparison: CT abdomen and pelvis February 01, 2025 Findings: There is persistent basilar pleural thickening with atelectasis and/or parenchymal scar versus residual infiltrates. The liver is normal in attenuation without intrahepatic biliary ductal dilatation. The portal vein is patent. Prior cholecystectomy. There is no significant common biliary ductal dilatation or abrupt cut off. The spleen again demonstrates a somewhat heterogeneous appearance with scattered splenic calcifications. The stomach and duodenum are grossly unremarkable. The pancreas is normal in enhancement without significant atrophy. The adrenal glands are unremarkable. There is prior left nephrectomy. Stable appearance of the right kidney with mild compensatory hypertrophy. No obstructive changes. Jzus-bm-uqmtqkvi stool is seen within the mid to distal colon without focal abnormality. The appendix is surgically absent. There is no significant mesenteric, retroperitoneal, or pelvic sidewall lymph nodes. The aorta is nonaneurysmal. There is no significant atherosclerotic disease appreciated. Calcified uterine fibroids are appreciated. There is no free fluid or free air. Postoperative changes of the ventral abdomen are again seen. The lumbar vertebral body heights are stable from comparison with moderate to severe degenerative disc disease with disc height loss and marginal osteophyte formation. Stable pedicle screw fixation of the L4-L5 level. Impression: Prior left nephrectomy, cholecystectomy and appendectomy similar to previous exam without new acute intra-abdominal abnormalities. Please note that all CT scans at this facility use dose modulation, iterative reconstruction, and/or weight-based dosing when appropriate to reduce radiation dose to as low as reasonably achievable. Dictated by Ugo Carlisle MD @ 05/21/2025 4:58:02 PM (Electronically Signed)
--- NOTE | 2025-05-21 15:01 | CRLHL7_ITS ---
For Patients: As a result of the Century Cures Act, medical imaging exams and procedure reports are released immediately into your electronic medical record. You may view this report before your referring provider. If you have questions, please contact your health care provider. INDICATION: Headache TECHNIQUE: CT of the head without contrast. Coronal and sagittal reformats. Bone and soft tissue algorithms. COMPARISON: CT 01/12/2024 FINDINGS: No acute intracranial hemorrhage or extra-axial collection. No evidence of acute cortical infarction. No mass effect or midline shift. Mild generalized parenchymal volume loss. Mild regions of decreased attenuation within the periventricular and subcortical white matter of both cerebral hemispheres most likely reflect chronic microvascular ischemic disease and age related change in this patient. Vascular calcifications within the carotid siphons. Bilateral lens replacement. No calvarial fractures. No lytic or sclerotic osseous lesions within the calvarium or skull base. Scalp and other imaged soft tissue structures are normal. Mastoid air cells are clear. Cerumen in the right external ear canal. IMPRESSION: No acute intracranial abnormality. No significant changes compared to the prior exam. Please note that all CT scans at this facility use dose modulation, iterative reconstruction, and/or weight-based dosing when appropriate to reduce radiation dose to as low as reasonably achievable. Dictated by José Miguel Cuevas MD @ 05/21/2025 4:10:06 PM (Electronically Signed)
[2025-05-21] MEDS: LACTATED RINGERS 1000 ML 1,000 ML 500 ML IV ×2 (16:12→22:33)
--- NOTE | 2025-05-21 19:15 | PM.IMHP1 ---
Assessment and Plan Assessment and plan (1) Sepsis: Problem comment: On presentation emergency department appear to have fairly severe sepsis. With fluid boluses and IV hydrocortisone she got better. Norepinephrine was ordered but then not administered because she clinically improved. Source of sepsis remains uncertain. Status: Acute (2) Immunocompromised state due to drug therapy: Problem comment: On chronic prednisone 7.5 mg daily plus leflunomide. In the past month was started on prednisone 20 mg daily and tapered down to 10 mg daily last week and now 7.5 mg daily. Continue IV steroids pending clinical course Status: Chronic (3) Pancytopenia: Problem comment: Cause is uncertain. Multiple medications and comorbid diseases Status: Chronic (4) S/P TAVR (transcatheter aortic valve replacement): Problem comment: Status post TAVR May 2023 [facility] with good results but complicated by bleeding from femoral artery Status: Chronic (5) Chronic anticoagulation: Problem comment: History of unprovoked PEs in the past, and still has paroxysmal atrial fibrillation. Continue apixaban 2.5 mg twice daily for VTE prophylaxis Status: Chronic (6) Bronchiectasis: Problem comment: Patient's tail puller indicates a diagnosis of bronchiectasis. She probably does not have COPD but may have some obstruction on PFTs due to bronchiectasis. Prior to TAVR had wheezing treated with inhalers. Since TAVR has been off inhalers and asymptomatic Status: Chronic (7) Paroxysmal atrial fibrillation: Problem comment: Currently in sinus rhythm Status: Chronic (8) Fibromyalgia: Problem comment: On Lyrica and duloxetine Status: Chronic (9) Rheumatoid arthritis: Problem comment: Has been on multiple immunosuppressive drugs including Humira, Orencia, Actemra, Remicade, are rituximab, Rinvoq, Enbrel. Has been on and off methotrexate for many years. Currently on leflunomide, sulfasalazine and prednisone Status: Chronic (10) Lymphedema: Problem comment: Chronic Status: Chronic (11) Physical deconditioning: Problem comment: Baseline fairly severe physical deconditioning. 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 In March was started on prednisone 20 mg daily with a taper down to 10 mg daily last week, May 17. Now at 7.5 mg daily. Stress dose steroids with IV hydrocortisone for now Status: Acute Plan 79-year-old female admitted to the hospital with sepsis. Continue in hospital for broad-spectrum on a biotics pending clinical course and culture results. Continue to manage sepsis with fluids and steroids. Continue to evaluate for source of sepsis. Continue to address multiple comorbid medical problems identified above. Total Time Spent Total Time Spent: Total time spent today is 80 minutes in critical care evaluation and management, review of outside records, discussion with patient, daughter and other providers ongoing evaluation and management of sepsis with multiple comorbid conditions Hospitalist- H&P: HPI History of Present Illness Time Seen by Provider: 15:00 Date Seen: 05/21/25 Chief complaint: SOB Narrative: Tanner James is a 79 year old female with rheumatoid arthritis on prednisone and sulfasalazine and leflunomide, pulmonary embolism on apixaban 2.5 b.i.d., aortic stenosis status post TAVR, coronary artery disease, COPD, history of alcohol abuse, morbid obesity, deconditioning admitted to the hospital with a 2-3 day history of headache, chest pain, anorexia, fatigue, malaise. This morning staff at her assisted living found that she was difficult to arouse. At that time she had a fever, low blood pressure, tachycardia. Because of this they called 911. She does have some cough and feeling shaky in the last few days as well. She has not noted significant shortness of breath though she was hypoxic on arrival in the emergency department. She has not been vomiting or had abdominal pain but has a very poor appetite and has been eating very little. No bowel problems. She is not aware of urinary symptoms. No upper respiratory illness symptoms. No other areas of pain or redness. She does have chronic lymphedema. Evaluation in the emergency department did not identify a definite source of infection for her sepsis. Viral studies for respiratory viruses negative, urinalysis unremarkable. Head CT unremarkable. Chest abdomen pelvis CT also without significant focus of infection. Physical examination was unremarkable. She did get multiple boluses of fluid per sepsis protocol. She was started on systemic corticosteroids because of her history of recent increased prednisone use. Due to persisting hypotension norepinephrine was considered but never started. Over about 3 hour period of time the resuscitation was effective in normalizing her blood pressure and helping her to feel better. In March she had a respiratory infection was placed on prednisone 20 mg daily that was tapered down to 10 mg daily as of last week and on May 17 her rail detector car operator tapered her to 7.5 mg daily with the hope of getting her off prednisone, reducing by 2.5 mg every 2-4 weeks. 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) History of adenomatous polyp of colon ?Z86.010 - Personal history of colonic polyps (ICD-10) Pulmonary infiltrates ?R91.8 - Other nonspecific abnormal finding of lung field (ICD-10) Urinary tract infection ?N39.0 - Urinary tract infection, site not specified (ICD-10) Chronic pain ?G89.29 - Other chronic pain (ICD-10) Pressure ulcer of other site, stage 4 ?L89.894 - Pressure ulcer of other site, stage 4 (ICD-10) Hematoma ?T14.8XXA - Other injury of unspecified body region, initial encounter (ICD-10) Congestive heart failure ?I50.9 - Heart failure, unspecified (ICD-10) Non-ST elevated myocardial infarction (non-STEMI) ?I21.4 - Non-ST elevation (NSTEMI) myocardial infarction (ICD-10) 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 - Aneurysm of artery of lower extremity (ICD-10) Obesity (BMI 30.0-34.9) ?E66.9 - Obesity, unspecified (ICD-10) Alcohol use disorder ?F10.90 - Alcohol use, unspecified, uncomplicated (ICD-10) Pulmonary embolism ?I26.99 - Other pulmonary embolism without acute cor pulmonale (ICD-10) Gastrointestinal hemorrhage ?K92.2 - Gastrointestinal hemorrhage, unspecified (ICD-10) Aortic stenosis, severe ?I35.0 - Nonrheumatic aortic (valve) stenosis (ICD-10) History of kidney stones ?Z87.442 - Personal history of urinary calculi (ICD-10) Mitral annular calcification ?I05.9 - Rheumatic mitral valve disease, unspecified (ICD-10) Surgical History Status post transcatheter aortic valve replacement (TAVR) using bioprosthesis ?Z95.3 - Presence of xenogenic heart valve (ICD-10) S/P cataract extraction ?Z98.49 - Cataract extraction status, unspecified eye (ICD-10) S/P cholecystectomy ?Z90.49 - Acquired absence of other specified parts of digestive tract (ICD-10) History of left nephrectomy ?Z90.5 - Acquired absence of kidney (ICD-10) History of lumbar fusion (04/2010) ?Z98.1 - Arthrodesis status (ICD-10) History of lithotripsy ?Z98.890 - Other specified postprocedural states (ICD-10) Family History Mother Breast cancer, Onset Age: 70 Sister Breast cancer, Onset Age: 35 Social History (Updated 05/21/25 @ 19:24 by Alejandro Vasquez MD) Narrative: Has been living at [facility] an apartment with a cottage attendant present for 4 hours on 3 days a week. Manages her own medications. Code status is DNR DNI What is your current living situation?: I presently have a place to live Problems where you live: no known problems Problems where you live details: n/a In the past 12 months, utilities in danger of being shut off: no In past 12 months, lack of transportation kept you from medical appts, meetings, work, or getting things needed for daily living: no In the past 12 mos, have been you worried that your food would run out before you had money to buy more?: never true In the past 12 mos, the food you bought just didn't last and you didn't have money to buy more?: never true Highest level of school completed/degree received: high school graduate Smoking Status: Unknown if ever smoked Do you use any of these nicotine containing products: None Second hand tobacco smoke exposure: Yes How often do you have a drink containing alcohol: never How often do you have six or more drinks on one occasion: Never AUDIT-C Alcohol total score: 0 Non-prescribed substance use: denies use Caffeine: Yes (Coffee in the morning) How often does anyone, including family, friends and others, physically hurt you: never How often does anyone, including family, friends and others, insult or talk down to you: never How often does anyone, including family, friends and others, threaten you with harm: never How often does anyone, including family, friends and others, scream or curse at you: never service: No Meds Home Medications and Allergies Home Medications ?Medication ?Instructions ?Recorded ?Confirmed ?Type Lactobacillus acidophilus 0.5 mg 100 mmu cells PO DAILY 12/22/21 05/21/25 History (100 million cell) tablet cholecalciferol (vitamin D3) 50 50 mcg PO DAILY 01/16/22 05/21/25 History mcg (2,000 unit) capsule multivitamin 1 tab PO QAM 01/16/22 05/21/25 History sulfasalazine 500 mg tablet 1 g PO BID 12/29/23 05/21/25 History valganciclovir 450 mg tablet 450 mg PO DAILY #90 tabs 05/10/24 05/21/25 Rx rosuvastatin 5 mg tablet 5 mg PO HS #90 tabs 10/10/24 05/21/25 Rx ascorbic acid (vitamin C) 500 mg 500 mg PO QDAY 10/18/24 05/21/25 History tablet folic acid 1 mg tablet 1 mg PO QDAY 10/18/24 05/21/25 History leflunomide 20 mg tablet 20 mg PO DAILY 10/18/24 05/21/25 History furosemide 40 mg tablet 40 mg PO DAILY #90 tabs 11/09/24 05/21/25 Rx metoprolol succinate 25 mg 25 mg PO BID #180 tabs 11/22/24 05/21/25 Rx tablet,extended release 24 hr apixaban 5 mg tablet (Eliquis) 2.5 mg (1/2 x 5 mg) PO BID #90 tabs 01/04/25 05/21/25 Rx potassium chloride 10 mEq 10 meq PO DAILY #90 caps 01/22/25 05/21/25 Rx capsule,extended release nystatin 100,000 unit/gram topical 1 applic topical BID PRN 02/02/25 05/21/25 History powder prednisone 5 mg tablet 7.5 mg PO DAILY 02/02/25 05/21/25 History pregabalin 50 mg capsule 50 mg PO BID #180 caps 02/21/25 05/21/25 Rx hydrocodone 5 mg-acetaminophen 325 1 tab PO BID PRN pain #60 tabs 04/30/25 05/21/25 Rx mg tablet duloxetine 60 mg capsule,delayed 60 mg PO DAILY #90 caps 05/21/25 05/21/25 Rx release Allergies Allergy/AdvReac Type Severity Reaction Status Date / Time NSAIDS (Non-Steroidal Allergy Severe GI bleed Verified 05/21/25 17:24 Anti-Inflamma terbinafine Allergy Intermediate Headache Verified 05/21/25 17:24 levofloxacin AdvReac Severe tendon Verified 05/21/25 17:24 rupture Exam Narrative: Exam Narrative: She is tired appearing but otherwise oriented to her circumstances. Speech is normal. She gives her own history with a few lapses in details about recent events and a little uncertainty about some of her medications. This is filled in by her daughter. Head is without trauma. Eyes normal. Extraocular movements are full. Oropharynx with small airway and dry mucous membranes. Neck is supple without mass or adenopathy. respirations are clear to auscultation except for a few fine basilar crackles which I believe are chronic. No wheezing. No consolidation. Cardiovascular: S1, S2, regular tachycardia. Abdomen: Bowel sounds are present. Abdomen is soft with no tenderness or mass. External genitalia normal. Extremities with noted lymphedema and some bruising. She has some very superficial shallow ulcers covered with Band-Aids which are otherwise without obvious infection. Extremities are mildly cool to touch with slightly sluggish capillary refill. She has relative weakness in dorsiflexion of the right foot compared to the the left foot but otherwise relatively symmetric strength. Const: Vital Signs, click to edit/add: Vital Signs - 24 hr 05/21/25 11:19 05/21/25 11:22 05/21/25 11:23 Temperature 101.2 F H Pulse Rate 111 H Pulse Rate [Pulse Oximeter] 124 H Respiratory Rate 28 H 26 H Blood Pressure Blood Pressure [Le ft Arm] Blood Pressure [Le ft Upper Arm] 118/48 L Pulse Oximetry 88 90 92 Oxygen Delivery Me thod Room Air Nasal Cannula Oxygen Flow Rate 1 05/21/25 11:23 05/21/25 11:30 05/21/25 11:31 Temperature Pulse Rate 97 119 H Pulse Rate [Pulse Oximeter] Respiratory Rate 18 22 Blood Pressure 141/121 H Blood Pressure [Le ft Arm] Blood Pressure [Le ft Upper Arm] Pulse Oximetry 92 94 95 Oxygen Delivery Me thod Nasal Cannula Oxygen Flow Rate 1 05/21/25 11:40 05/21/25 11:45 05/21/25 11:50 Temperature Pulse Rate 112 H Pulse Rate [Pulse Oximeter] Respiratory Rate 26 H 22 30 H Blood Pressure Blood Pressure [Le ft Arm] Blood Pressure [Le ft Upper Arm] Pulse Oximetry 100 100 Oxygen Delivery Me thod Nasal Cannula Oxygen Flow Rate 1 05/21/25 12:00 05/21/25 12:10 05/21/25 12:15 Temperature Pulse Rate 113 H 103 H Pulse Rate [Pulse Oximeter] Respiratory Rate 13 20 17 Blood Pressure Blood Pressure [Le ft Arm] Blood Pressure [Le ft Upper Arm] Pulse Oximetry 94 93 93 Oxygen Delivery Me thod Oxygen Flow Rate 05/21/25 12:20 05/21/25 12:25 05/21/25 12:30 Temperature Pulse Rate 110 H 109 H Pulse Rate [Pulse Oximeter] Respiratory Rate 20 25 H 27 H Blood Pressure 129/45 L Blood Pressure [Le ft Arm] Blood Pressure [Le ft Upper Arm] Pulse Oximetry 90 95 93 Oxygen Delivery Me thod Oxygen Flow Rate 05/21/25 12:32 05/21/25 12:33 05/21/25 12:40 Temperature Pulse Rate 108 H 111 H Pulse Rate [Pulse Oximeter] Respiratory Rate 18 20 20 Blood Pressure 112/54 L Blood Pressure [Le ft Arm] Blood Pressure [Le ft Upper Arm] Pulse Oximetry 94 94 94 Oxygen Delivery Me thod Oxygen Flow Rate 05/21/25 12:43 05/21/25 12:45 05/21/25 12:45 Temperature 99.2 F 99.2 F Pulse Rate 114 H Pulse Rate [Pulse Oximeter] Respiratory Rate 20 Blood Pressure Blood Pressure [Le ft Arm] Blood Pressure [Le ft Upper Arm] Pulse Oximetry 97 Oxygen Delivery Me thod Oxygen Flow Rate 05/21/25 12:46 05/21/25 12:50 05/21/25 13:00 Temperature 99.2 F Pulse Rate 109 H Pulse Rate [Pulse Oximeter] Respiratory Rate 24 Blood Pressure Blood Pressure [Le ft Arm] Blood Pressure [Le ft Upper Arm] Pulse Oximetry 94 95 Oxygen Delivery Me thod Oxygen Flow Rate 05/21/25 13:01 05/21/25 13:02 05/21/25 13:10 Temperature Pulse Rate 110 H 112 H Pulse Rate [Pulse Oximeter] Respiratory Rate 16 12 20 Blood Pressure 105/42 L Blood Pressure [Le ft Arm] Blood Pressure [Le ft Upper Arm] Pulse Oximetry 95 95 95 Oxygen Delivery Me thod Oxygen Flow Rate 05/21/25 13:15 05/21/25 13:20 05/21/25 13:30 Temperature Pulse Rate 108 H 107 H Pulse Rate [Pulse Oximeter] Respiratory Rate 20 20 18 Blood Pressure Blood Pressure [Le ft Arm] Blood Pressure [Le ft Upper Arm] Pulse Oximetry 95 95 94 Oxygen Delivery Me thod Oxygen Flow Rate 05/21/25 13:31 05/21/25 13:32 05/21/25 13:40 Temperature Pulse Rate 108 H 107 H Pulse Rate [Pulse Oximeter] Respiratory Rate 18 23 20 Blood Pressure 93/33 L Blood Pressure [Le ft Arm] Blood Pressure [Le ft Upper Arm] Pulse Oximetry 95 96 95 Oxygen Delivery Me thod Oxygen Flow Rate 05/21/25 13:43 05/21/25 13:44 05/21/25 13:45 Temperature Pulse Rate 104 H 103 H 105 H Pulse Rate [Pulse Oximeter] Respiratory Rate 22 21 25 H Blood Pressure 86/30 L Blood Pressure [Le ft Arm] Blood Pressure [Le ft Upper Arm] Pulse Oximetry 96 96 95 Oxygen Delivery Me thod Oxygen Flow Rate 05/21/25 13:50 05/21/25 13:58 05/21/25 13:59 Temperature Pulse Rate 98 99 Pulse Rate [Pulse Oximeter] Respiratory Rate 27 H 22 15 Blood Pressure 104/37 L Blood Pressure [Le ft Arm] Blood Pressure [Le ft Upper Arm] Pulse Oximetry 95 94 97 Oxygen Delivery Me thod Oxygen Flow Rate 05/21/25 14:00 05/21/25 14:15 05/21/25 14:29 Temperature Pulse Rate 99 99 Pulse Rate [Pulse Oximeter] Respiratory Rate 20 23 23 Blood Pressure 103/33 L Blood Pressure [Le ft Arm] Blood Pressure [Le ft Upper Arm] Pulse Oximetry 96 91 89 Oxygen Delivery Me thod Room Air Oxygen Flow Rate 05/21/25 14:30 05/21/25 14:31 05/21/25 14:45 Temperature Pulse Rate 99 99 101 H Pulse Rate [Pulse Oximeter] Respiratory Rate 22 25 H 25 H Blood Pressure 99/39 L Blood Pressure [Le ft Arm] Blood Pressure [Le ft Upper Arm] Pulse Oximetry 88 89 92 Oxygen Delivery Me thod Oxygen Flow Rate 05/21/25 15:00 05/21/25 15:01 05/21/25 15:06 Temperature Pulse Rate 98 97 100 Pulse Rate [Pulse Oximeter] Respiratory Rate 28 H 21 24 Blood Pressure 103/44 L 106/37 L Blood Pressure [Le ft Arm] Blood Pressure [Le ft Upper Arm] Pulse Oximetry 91 90 89 Oxygen Delivery Me thod Oxygen Flow Rate 05/21/25 15:15 05/21/25 15:30 05/21/25 15:31 Temperature Pulse Rate 95 93 94 Pulse Rate [Pulse Oximeter] Respiratory Rate 16 25 H 20 Blood Pressure 104/47 L Blood Pressure [Le ft Arm] Blood Pressure [Le ft Upper Arm] Pulse Oximetry 92 90 92 Oxygen Delivery Me thod Oxygen Flow Rate 05/21/25 15:45 05/21/25 17:04 05/21/25 17:04 Temperature 99.3 F Pulse Rate 95 Pulse Rate [Pulse Oximeter] 96 Respiratory Rate 30 H 20 22 Blood Pressure Blood Pressure [Le ft Arm] 138/51 L Blood Pressure [Le ft Upper Arm] Pulse Oximetry 92 95 93 Oxygen Delivery Me thod Room Air Room Air Oxygen Flow Rate 05/21/25 18:00 Temperature 97 F L Pulse Rate Pulse Rate [Pulse Oximeter] 94 Respiratory Rate 22 Blood Pressure Blood Pressure [Le ft Arm] 134/51 L Blood Pressure [Le ft Upper Arm] Pulse Oximetry 93 Oxygen Delivery Me thod Room Air Oxygen Flow Rate 1 Hospitalist - H&P: Result Labs Labs: Short CBC 05/21/25 Range/Units 11:25 WBC 14.28 H (4.50-11.00) K/uL Hgb 13.1 (12.0-16.0) gm/dL Hct 42.5 (33.0-51.0) % Plt Count 81 L (140-440) K/uL BMP 05/21/25 11:25 Sodium 137 Potassium 4.4 Chloride 100 Carbon Dioxide 28 BUN 24 Creatinine 1.1 Glucose 133 H Calcium 9.0 Cardiac Enzymes 05/21/25 05/21/25 Range/Units 11:25 14:14 Troponin I 0.06 H* 0.09 H* (0.01-0.04) ng/mL Liver Function 05/21/25 Range/Units 11:25 Total Bilirubin 1.3 (0.1-1.5) mg/dL Direct Bilirubin 0.0 (0.0-0.5) mg/dL AST 77 H (12-35) U/L ALT 55 H (4-35) U/L Alkaline Phosphatase 148 (40-150) U/L Albumin 4.0 (3.3-5.0) g/dL Urine 05/21/25 Range/Units 12:15 Urine Color Dark yellow (Yellow) Urine Appearance Cloudy A (Clear) Urine pH 7.0 (5.0-8.5) Ur Specific [place] 1.015 (1.000-1.030) Urine Protein 1+ A (Negative) Urine Glucose (UA) Negative (Negative) ECG Attestation: I personally reviewed and interpreted this ECG as follows: (Normal sinus rhythm with LVH and repolarization changes. These are perhaps a little bit more prominent than seen in January of this year, specifically ST depression in lead 1 and aVL and reciprocal changes in AVR.) ECG interpretation date: 05/21/[address] scan - abdomen: Radiologist's impression: Indication: Shortness of breath, tachycardia history of pulmonary embolus sepsis and kidney stones with single right kidney. Technique: Volumetric multidetector CT images of the abdomen and pelvis were obtained after the administration of intravenous contrast. 95 cc Isovue 370 low osmolar intravenous contrast Comparison: CT abdomen and pelvis February 01, 2025 Findings: There is persistent basilar pleural thickening with atelectasis and/or parenchymal scar versus residual infiltrates. The liver is normal in attenuation without intrahepatic biliary ductal dilatation. The portal vein is patent. Prior cholecystectomy. There is no significant common biliary ductal dilatation or abrupt cut off. The spleen again demonstrates a somewhat heterogeneous appearance with scattered splenic calcifications. The stomach and duodenum are grossly unremarkable. The pancreas is normal in enhancement without significant atrophy. The adrenal glands are unremarkable. There is prior left nephrectomy. Stable appearance of the right kidney with mild compensatory hypertrophy. No obstructive changes. Dyun-gt-[id number] stool is seen within the mid to distal colon without focal abnormality. The appendix is surgically absent. There is no significant mesenteric, retroperitoneal, or pelvic sidewall lymph nodes. The aorta is nonaneurysmal. There is no significant atherosclerotic disease appreciated. Calcified uterine fibroids are appreciated. There is no free fluid or free air. Postoperative changes of the ventral abdomen are again seen. The lumbar vertebral body heights are stable from comparison with moderate to severe degenerative disc disease with disc height loss and marginal osteophyte formation. Stable pedicle screw fixation of the L4-L5 level. Impression: Prior left nephrectomy, cholecystectomy and appendectomy similar to previous exam without new acute intra-abdominal abnormalities. CT scan - chest: Radiologist's impression: Indication: Shortness of breath, tachycardia, history of PE Technique: Volumetric multidetector CT images of the chest were obtained after the administration of IV contrast. 95 cc Isovue 370 low osmolar intravenous contrast Comparison: CT chest December 19, 2024 Findings: The thoracic inlet and thyroid gland are unremarkable. The thoracic aorta is nonaneurysmal with scattered atherosclerotic calcification and aortic valve prosthesis. No obvious central filling defect to suggest pulmonary embolus. Mildly limited evaluation of the lower lobe pulmonary arteries secondary to respiratory motion artifact. No obvious central filling defect. There is no mediastinal, hilar or axillary adenopathy. There is persistent moderate central bronchial thickening. There is dependent basilar atelectasis and parenchymal scarring with questionable mild interstitial prominence within the peripheral upper lobes commensurate with pulmonary edema. There is no evidence of pulmonary mass or suspicious pulmonary nodule. The partially visualized upper abdomen demonstrates prior cholecystectomy. Again seen is exaggerated thoracic kyphosis with moderate degenerative disc disease and flowing anterior osteophytosis. 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 Impression: 1. Persistent moderate central bronchial thickening with dependent basilar atelectasis and/or infiltrates. No definite filling defect to suggest pulmonary embolus. Mild interstitial prominence within the upper lobes which may represent mild pulmonary vascular congestion. CT scan - head: Radiologist's impression: INDICATION: Headache TECHNIQUE: CT of the head without contrast. Coronal and sagittal reformats. Bone and soft tissue algorithms. COMPARISON: CT 01/12/2024 FINDINGS: No acute intracranial hemorrhage or extra-axial collection. No evidence of acute cortical infarction. No mass effect or midline shift. Mild generalized parenchymal volume loss. Mild regions of decreased attenuation within the periventricular and subcortical white matter of both cerebral hemispheres most likely reflect chronic microvascular ischemic disease and age related change in this patient. Vascular calcifications within the carotid siphons. Bilateral lens replacement. No calvarial fractures. No lytic or sclerotic osseous lesions within the calvarium or skull base. Scalp and other imaged soft tissue structures are normal. Mastoid air cells are clear. Cerumen in the right external ear canal. IMPRESSION: No acute intracranial abnormality. No significant changes compared to the prior exam.
[2025-05-21] MEDS: HYDROCORTISONE SOD SUCCINATE 50 MG/ML inj IVP (20:36)
[2025-05-21] MEDS: ROSUVASTATIN CALCIUM 10 MG TABLET 5 MG PO (20:37)
[2025-05-21] MEDS: APIXABAN 5 MG TABLET 2.5 MG PO (20:38)
[2025-05-21] MEDS: METOPROLOL SUCCINATE (XL) 25 MG TAB PO (20:38)
[2025-05-21] MEDS: PREGABALIN 50 MG CAPSULE PO (20:38)
[2025-05-21] MEDS: ACETAMINOPHEN 325 MG TABLET 650 MG PO (20:39)
[2025-05-21] MEDS: SODIUM CHLORIDE 0.9 % (FLUSH) 10 ML SYRINGE 5 ML IVF (20:40)
[2025-05-21] MEDS: CARBOXYMETHYLCELLULOSE (REFRESH PLUS) TEARS 1 DROP EYE-BOTH (21:15)
[2025-05-21 21:19] LABS: Lactate* 2.9 mmol/L (0.5-1.9)
[2025-05-21] MEDS: CEFEPIME HCL 1 GM in 0.9 % SODIUM CHLORIDE Mini-bag 100 ML IVPB (21:40)
[2025-05-21] MEDS: HYDROCODONE-ACETAMIN 5-325 MG 1 TAB PO (21:50)
--- NOTE | 2025-05-21 22:23 | P.CCEN_ITS ---
Critical Care Event Note Summary Time Seen by Provider: 22:23 Date Seen: 05/21/25 Code activated: No Narrative: Patient admitted with sepsis of uncertain source. Her blood pressure has responded well to fluid boluses and hydrocortisone. On vancomycin and cefepime. Continuing to be cautious with fluid boluses due to risk for heart failure and renal failure. She is feeling better. Her chest pain is resolved. She is still having some h eadache. No shortness of breath. Extremities are warm to touch with good capillary refill. Strong peripheral pulses. Legs with bilateral mild erythema, moderate edema and a few superficial ulcers in eschar. No definite cellulitis or abscess. Troponin went up to 0.38 from 0.09 and lactate went up to 2.9 from 1.4. Electrocardiogram showed less prominent ST-T changes then earlier today. Assessment: 79-year-old female with sepsis. Clinically improving with vital signs and clinical assessment but not with lab markers. Repeat fluid bolus and reassess. I favor elevated troponin to be a type 2 myocardial injury from sepsis rather than a primary acute coronary syndrome. Continue to monitor. At risk for volume overload from fluid resuscitation. Total time in critical care today is 115 minutes. This case had a high probability of a clinically significant, sudden, or life threatening deterioration of this patient's condition which required my full and direct attention, intervention and personal management. Critical care time: 105 - 134 mins
[2025-05-21 23:30] LABS: Lactate* 3.2 mmol/L (0.5-1.9)
[2025-05-22] VITALS (14 sets, daily range): BP systolic 130–177; BP diastolic 56–94; PULSE 73–96; RESP 20–24; TEMP 36.2–36.8; O2SAT 93–98
[2025-05-22] MEDS: LACTATED RINGERS 1000 ML 1,000 ML 75 ML IV (00:32)
[2025-05-22] MEDS: ACETAMINOPHEN 325 MG TABLET 650 MG PO (02:18)
[2025-05-22] MEDS: HYDROCORTISONE SOD SUCCINATE 50 MG/ML inj IVP ×4 (02:18→21:19)
[2025-05-22 06:26] LABS: Hematocrit* 36.0 % (33.0-51.0); Hemoglobin* 11.0 gm/dL (12.0-16.0); Immature Granulocytes Pct Auto 0.3 %; Mean Corpuscular HGB Conc 31 gm/dL (32-36); Mean Corpuscular Hemoglobin 33 pg (26-34); Mean Corpuscular Volume 108 fL (80-100); RDW Coefficient of Variation % 14.3 % (11.5-15.5); Red Blood Count* 3.35 m/uL (4.00-5.20); White Blood Count* 11.44 K/uL (4.50-11.00)
[2025-05-22 06:28] LABS: Immature Granulocytes Abs Auto 0.00 K/uL (0.00-0.30); Lymphocytes Absolute Auto 1.10 K/uL (0.90-2.90)
[2025-05-22 06:29] LABS: Slide Review Reflex No
[2025-05-22 06:37] LABS: Albumin* 3.3 g/dL (3.3-5.0); Chloride* 105 mmol/L (96-114)
[2025-05-22 06:38] LABS: Potassium* 3.9 mmol/L (3.6-5.1); Sodium* 138 mmol/L (135-149)
[2025-05-22 06:40] LABS: Blood Urea Nitrogen* 21 mg/dL (7-30); Creatinine* 1.0 mg/dL (0.5-1.5); Est. Creatinine Clearance* 38.97; Estimated Glomerular Filt Rate 58 ml/min
[2025-05-22 06:41] LABS: Alanine Aminotransferase* 43 U/L (4-35); Alkaline Phosphatase* 104 U/L (40-150); Anion Gap 8 mEq/L (7-15); Aspartate Amino Transferase* 60 U/L (12-35); Bilirubin Total* 1.0 mg/dL (0.1-1.5); Calcium* 8.2 mg/dL (8.4-10.6); Carbon Dioxide* 25 mmol/L (20-32); Glucose* 119 mg/dL (60-115); Total Protein* 5.8 g/dL (6.0-8.3)
[2025-05-22 06:55] LABS: Bilirubin Direct* 0.1 mg/dL (0.0-0.5)
--- NOTE | 2025-05-22 07:30 | PC.NURSE ---
Shift Note: pt friendly and cooperative, able to verbalize her needs. C/o 7/10 headache overnight, PRN Tylenol and ice pack behind her neck was effective and pt now rates generalized pain 2/10. VS WNL and pt has been afebrile. Tele= NSR. Moves well with assist x2 to BSC. Pt did desat to mid 80's and experience dyspnea with activity. She does well and maintains sats at 90% with 2L/O2 for activity. ECHO planned for today.
[2025-05-22 07:38] LABS: Lab Add On Test New Spec Needed
[2025-05-22 07:39] LABS: Lactate* 1.0 mmol/L (0.5-1.9)
[2025-05-22] MEDS: APIXABAN 5 MG TABLET 2.5 MG PO ×2 (09:12→21:19)
[2025-05-22] MEDS: CEFEPIME HCL 2 GM in 0.9 % SODIUM CHLORIDE Mini-bag 100 ML IVPB ×2 (09:12→21:18)
[2025-05-22] MEDS: DULOXETINE 30 MG CAPSULE DR 60 MG PO (09:12)
[2025-05-22] MEDS: PREGABALIN 50 MG CAPSULE PO ×2 (09:13→21:18)
[2025-05-22] MEDS: METOPROLOL SUCCINATE (XL) 25 MG TAB PO ×2 (09:13→21:18)
[2025-05-22] MEDS: SODIUM CHLORIDE 0.9 % (FLUSH) 10 ML SYRINGE 5 ML IVF ×4 (09:13→21:21)
--- NOTE | 2025-05-22 09:45 | CRLHL7_ITS ---
For Patients: As a result of the Century Cures Act, medical imaging exams and procedure reports are released immediately into your electronic medical record. You may view this report before your referring provider. If you have questions, please contact your health care provider. Indication: Dyspnea Technique: Chest 1 view Comparison: Chest x-ray 05/21/2025 Findings/Impression: Cardiovascular and mediastinum: Normal heart size with atherosclerotic calcification. Lungs and pleural space: No pleural effusion or pneumothorax. Discoid atelectasis left lung base. Right basilar pulmonary nodule measures 3 millimeters, similar to the prior exam. Mild bronchial wall thickening bilaterally with slight reticular interstitial prominence, possibly bronchitis or bronchiolitis, also appears similar to the prior exam. Bones and soft tissues: Bilateral glenohumeral osteoarthritis. Acromiohumeral narrowing bilaterally consistent with rotator cuff disease. Dictated by Cruzito Kang MD @ 05/22/2025 10:55:24 AM (Electronically Signed)
[2025-05-22] MEDS: FUROSEMIDE 10 MG/ML inj 40 MG IVP (09:54)
[2025-05-22] MEDS: HYDROCODONE-ACETAMIN 5-325 MG 1 TAB PO (12:08)
[2025-05-22] MEDS: VANCOMYCIN 1.75 GM/350 ML 1.75 GM/350 ML PIGGYBACK IVPB (13:56)
--- NOTE | 2025-05-22 14:28 | PC.SOCIAL ---
Addendum entered by VISHAL Correa 05/22/25 16:23: Discharge planning: Progress notes were faxed to [facility] at fax number #[phone] on behalf of the pt. Social work to follow-up as needed. 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 See the below information... Patient?s baseline prior to hospitalization 1. How does patient transfer/ambulate? Pivot transfers mainly. Some walking in the hallways with staff to the dining room from her apartment, but not for every meal. 2. Who administers patient?s medication? Pt does her own medication. Pharmacy providing medications? N/A. 3. Does patient use oxygen?? No. 4. Patient?s diet at facility? Regular. ??? - Does patient need assistance with eating? No. 5. What assistance does the facility staff provide to patient? Meals, laundry, cleaning once a week, 18/01 assistance available if needed with pendant, bathing, pivot transfer assistance/standby assistance. 6. Does patient have any behaviors hospital staff need to be aware of? No. 7. Any cognitive impairments? Mental Status? No. Alert and oriented. 8. Any additional information to help hospital staff successfully care for patient? No. 9. Does patient have a health care directive, POLST, or guardian? POLST on file at facility. 10. Are there any outside providers involved in patient?s care (PT, Home Care, Hospice)? Yes. [employer] is providing RN 2x a week for wound care(blisters on feet) and monitoring/labs and PT/OT. They will need resumption of care orders when the pt is ready for discharge from the hospital. 11. Is patient?s bed held? No. MAGEN. She rents her apartment. ? - Can patient return to the facility (including a weekend return)? She can return, but cannot be more than a two person assist. A weekend return would need to be coordinated ahead of time. 12. How does patient normally transport? Non-emergent EMS. 13. Primary contacts name and phone number for care facility: PEEWEE Hernandez #[phone] Facility phone number is #[phone] Fax number is #[phone]. Social work to follow-up as needed.
[2025-05-22] MEDS: PERFLUTREN LIPID MICROSPHERES 2 ML VIAL IVP (16:10)
--- NOTE | 2025-05-22 16:53 | PM.IMPN1 ---
Assessment and Plan Assessment and plan (1) Sepsis: Problem comment: On presentation emergency department appear to have fairly severe sepsis. With fluid boluses and IV hydrocortisone she got better. Norepinephrine was ordered but then not administered because she clinically improved. Source of sepsis remains uncertain. 05/22/25 Sepsis is resolved. Source unclear. I have reviewed UA, CTA chest, CT abd/pelvis; I did exam including extensive skin exam today and have not identified source. UC pending. BCx2 growing G+cocci. If this results Staph, consider MRI spine. Status: Acute (2) Gram-positive cocci bacteremia: Problem comment: Continue cefepime and vancomycin. Daily blood cultures while awaiting species and sensitivities and until all cultures are clear for 72 hours. Echocardiogram pending. Status: Acute (3) Immunocompromised state due to drug therapy: Problem comment: On chronic prednisone 7.5 mg daily plus leflunomide. In the past month was started on prednisone 20 mg daily and tapered down to 10 mg daily last week and now 7.5 mg daily. Continue IV steroids pending clinical course - 05/22/25 Vitals improved, stable today. Continue stress dose steroids for 48 hours, then resume usual dosing Status: Chronic (4) Adrenal insufficiency due to steroid withdrawal: Problem comment: Chronically on prednisone 7.5 mg daily. In March was started on prednisone 20 mg daily with a taper down to 10 mg daily last week, May 17. Now at 7.5 mg daily. Stress dose steroids with IV hydrocortisone for now Status: Acute (5) Pancytopenia: Problem comment: Cause is uncertain. Multiple medications and comorbid diseases - 05/22/25 Plts lower today, 64. If lower than 60 by tomorrow, will need to hold apixaban. Status: Chronic (6) S/P TAVR (transcatheter aortic valve replacement): Problem comment: Status post TAVR May 2023 [facility] with good results but complicated by bleeding from femoral artery Status: Chronic (7) Chronic anticoagulation: Problem comment: History of unprovoked PEs in the past, and still has paroxysmal atrial fibrillation. Continue apixaban 2.5 mg twice daily for VTE prophylaxis - 05/22 may need to hold if plts less than 60 Status: Chronic (8) Bronchiectasis: Problem comment: Patient's pvc monitor indicates a diagnosis of bronchiectasis. She probably does not have COPD but may have some obstruction on PFTs due to bronchiectasis. Prior to TAVR had wheezing treated with inhalers. Since TAVR has been off inhalers and asymptomatic Status: Chronic (9) Paroxysmal atrial fibrillation: Problem comment: Currently in sinus rhythm Status: Chronic (10) Fibromyalgia: Problem comment: On Lyrica and duloxetine Status: Chronic (11) Rheumatoid arthritis: Problem comment: Has been on multiple immunosuppressive drugs including Humira, Orencia, Actemra, Remicade, are rituximab, Rinvoq, Enbrel. Has been on and off methotrexate for many years. Currently on leflunomide, sulfasalazine and prednisone Status: Chronic (12) Lymphedema: Problem comment: Chronic Status: Chronic (13) Physical deconditioning: Problem comment: Baseline fairly severe physical deconditioning. Recently started therapy again Status: Chronic Plan 79-year-old female admitted to the hospital with sepsis. Continue in hospital for broad-spectrum on antibiotics pending clinical course and culture results. Continue to manage sepsis with fluids and steroids. Continue to evaluate for source of sepsis. Continue to address multiple comorbid medical problems identified above. I stopped IVF and gave dose of IV lasix with good results and improved dyspnea. Total Time Spent Total Time Spent: Today I spent 50 minutes seeing the patient, reviewing [facility]panse and EPIC notes/diagnostics/labs, discussing the care plan with our care team that includes social work, PT/OT, pharmacy, RT, correction and documenting my impressions and plan in the medical record. Subjective Time Seen by Provider: 08:15 Date Seen: 05/22/25 Interval history: Jean is feeling much better than she did yesterday. Blood pressures have been much better overnight, stable. Did not require any pressors. She had dyspnea after I saw her, so I came back and reevaluated. She denies CP. She notes a long h/o sciatica. Exam Narrative: Exam Narrative: General: No acute distress. Awake, alert, oriented x3. No pallor. No jaundice. Oropharynx: Clear. Mucous membranes moist. Cardiovascular: Regular rate and rhythm. No murmurs, gallops, or rubs. Respiratory: Clear to auscultation bilaterally. No wheezes or crackles. Abdomen: Bowel sounds present. Soft, nondistended, nontender. Back: Nontender to palpation along the cervical, thoracic, lumbar, or sacral spine. Lumbar spine scar from previous surgery, well healed. Both SI joints are tender to palpation, left greater than right. Extremities: 2+ bilateral lower extremity lymphedema with chronic venous stasis changes knee anteriorly and a superficial ulcer on the left price with a scale/scab over it. There is no induration or excessive warmth to the lower extremities. Skin: I had the nurses help me stand her up and I was able to visualize all areas of her skin she has many small areas of bruising, especially prevalent over her thighs. She has mild candidiasis of the breast folds. No erythema or induration or other rashes seen. Const: Vital Signs, click to edit/add: Vital Signs - 24 hr 05/21/25 17:04 05/21/25 17:04 05/21/25 18:00 Temperature 99.3 F 97 F L Pulse Rate Pulse Rate [Pulse Oximeter] 96 94 Respiratory Rate 20 22 22 Blood Pressure [Le ft Arm] 138/51 L 134/51 L Pulse Oximetry 95 93 93 Oxygen Delivery Me thod Room Air Room Air Room Air Oxygen Flow Rate 1 05/21/25 20:00 05/21/25 21:00 05/21/25 22:00 Temperature 97.9 F 97.9 F 98.3 F Pulse Rate Pulse Rate [Pulse Oximeter] 99 91 89 Respiratory Rate 18 18 18 Blood Pressure [Le ft Arm] 140/53 H 132/57 L 136/56 L Pulse Oximetry 97 95 94 Oxygen Delivery Me od Room Air Room Air Room Air Oxygen Flow Rate 05/21/25 22:42 05/21/25 22:42 05/21/25 23:00 Temperature Pulse Rate Pulse Rate [Pulse Oximeter] 94 Respiratory Rate 18 18 Blood Pressure [Le ft Arm] Pulse Oximetry 93 93 Oxygen Delivery Me thod Room Air Oxygen Flow Rate 05/21/25 23:00 05/21/25 23:00 05/22/25 02:00 Temperature 97.4 F L 97.2 F L Pulse Rate 87 Pulse Rate [Pulse Oximeter] 94 91 Respiratory Rate 18 22 Blood Pressure [Le ft Arm] 123/53 L 130/86 Pulse Oximetry 91 96 [facility] Flow Rate 05/22/25 03:00 05/22/25 03:00 05/22/25 04:00 Temperature 97.1 F L Pulse Rate 77 Pulse Rate [Pulse Oximeter] 73 92 Respiratory Rate 22 22 Blood Pressure [Le ft Arm] 140/63 H Pulse Oximetry 96 Oxygen Delivery Me thod Room Air Oxygen Flow Rate 05/22/25 06:00 05/22/25 07:00 05/22/25 07:00 Temperature 97.5 F L Pulse Rate 89 Pulse Rate [Pulse Oximeter] 80 Respiratory Rate 22 Blood Pressure [Le ft Arm] 130/94 H Pulse Oximetry 97 97 Oxygen Delivery Me thod Room Air Oxygen Flow Rate 05/22/25 07:00 05/22/25 08:00 05/22/25 10:00 Temperature 97.7 F Pulse Rate Pulse Rate [Pulse Oximeter] 92 87 Respiratory Rate 20 20 20 Blood Pressure [Le ft Arm] 159/89 H 140/76 H Pulse Oximetry 97 97 96 Oxygen Delivery Me thod Room Air Room Air Room Air Oxygen Flow Rate 05/22/25 12:00 05/22/25 12:20 05/22/25 14:00 Temperature 98.1 F 98.0 F Pulse Rate 96 Pulse Rate [Pulse Oximeter] 85 91 Respiratory Rate 24 20 Blood Pressure [Le ft Arm] 177/68 H 139/81 Pulse Oximetry 98 97 Oxygen Delivery Me thod Room Air Room Air Oxygen Flow Rate 05/22/25 15:00 05/22/25 15:00 05/22/25 16:00 Temperature 98.2 F Pulse Rate Pulse Rate [Pulse Oximeter] 91 Respiratory Rate 24 24 Blood Pressure [Le ft Arm] 136/56 L Pulse Oximetry 93 93 93 Oxygen Delivery Me thod Room Air Room Air Oxygen Flow Rate Labs Labs: Laboratory Results - last 24 hr 05/21/25 05/21/25 05/22/25 21:15 23:25 06:15 WBC 11.44 H RBC 3.35 L Hgb 11.0 L Hct 36.0 MCV 108 H MCH 33 MCHC 31 L RDW Coeff of [place] 14.3 Plt Count 64 L Neut % (Auto) 87.1 H Lymph % (Auto) 9.5 L Iron % (Auto) 2.9 Eos % (Auto) 0.0 Baso % (Auto) 0.2 Neut # (Auto) 10.00 H Lymph # (Auto) 1.10 Iron # (Auto) 0.30 Eos # (Auto) 0.00 Baso # (Auto) 0.00 Abs Immat Gran (auto) 0.00 Imm/Tot Granulo (auto) 0.3 Sodium 138 Potassium 3.9 Chloride 105 Carbon Dioxide 25 Anion Gap 8 BUN 21 Creatinine 1.0 Estimated Creat Clear 38.97 Estimated GFR 58 Glucose 119 H Lactate 2.9 H 3.2 H Calcium 8.2 L Total Bilirubin 1.0 Direct Bilirubin 0.1 AST 60 H ALT 43 H Alkaline Phosphatase 104 Troponin I 0.38 H* 0.55 H* 0.49 H* C-Reactive Protein 16.9 H Total Protein 5.8 L Albumin 3.3 Lab Acknowledgement 05/22/25 05/22/25 05/22/25 07:04 07:05 07:32 WBC RBC Hgb Hct MCV MCH MCHC RDW Coeff of [place] Plt Count Neut % (Auto) Lymph % (Auto) Iron % (Auto) Eos % (Auto) Baso % (Auto) Neut # (Auto) Lymph # (Auto) Iron # (Auto) Eos # (Auto) Baso # (Auto) Abs Immat Gran (auto) Imm/Tot Granulo (auto) Sodium Potassium Chloride Carbon Dioxide Anion Gap BUN Creatinine Estimated Creat Clear Estimated GFR Glucose Lactate 1.0 Calcium Total Bilirubin Direct Bilirubin AST ALT Alkaline Phosphatase Troponin I C-Reactive Protein Total Protein Albumin Lab Acknowledgement Test Added New Spec Needed A
--- NOTE | 2025-05-22 19:37 | PC.NURSE ---
End of shift [id number] - Pt alert, oriented, cooperative. Up with standby assistance and stand/pivot to commode and chair. Pt reported pain in R hip as 5/10, given medication per MAR to improve pain to 3/10. Pt noted to be have increased WOB after breakfast, made aware. Given diuretic per AUG with pt reporting improved WOB at rest. Tolerating RA but noted to be SOB with exertion. Pt uses effective breathing techniques to recover from exertion. VSS, afebrile during shift. Continent of bowel and bladder. Family at bedside during shift. Appears to be resting comfortably in bed at end of shift with call light within reach.
[2025-05-22] MEDS: ROSUVASTATIN CALCIUM 10 MG TABLET 5 MG PO (21:20)
[2025-05-23] MEDS: HYDROCORTISONE SOD SUCCINATE 50 MG/ML inj IVP ×3 (01:49→14:20)
[2025-05-23 03:00] VITALS: BP 160/62; PULSE 89; RESP 20; TEMP 36.4; O2SAT 93
[2025-05-23] MEDS: HYDROCODONE-ACETAMIN 5-325 MG 1 TAB PO ×2 (06:00→08:46)
--- NOTE | 2025-05-23 06:16 | PC.NURSE ---
Shift Note: Shift unremarkable. VS WNL overnight. Pt initially denied pain, but did verbalize 5/10 discomfort and request her PRN [place] early this morning after daily weight/BSC use. Pt states she is feeling better than she has since admission. Urine remains concentrated. Encouraged pt to continue sipping fluids throughout the day.
[2025-05-23 06:49] LABS: Hematocrit* 34.7 % (33.0-51.0); Hemoglobin* 10.7 gm/dL (12.0-16.0); Immature Granulocytes Abs Auto 0.04 K/uL (0.00-0.30); Immature Granulocytes Pct Auto 0.4 %; Mean Corpuscular HGB Conc 31 gm/dL (32-36); Mean Corpuscular Hemoglobin 33 pg (26-34); Mean Corpuscular Volume 106 fL (80-100); RDW Coefficient of Variation % 14.3 % (11.5-15.5); Red Blood Count* 3.29 m/uL (4.00-5.20); White Blood Count* 10.68 K/uL (4.50-11.00)
[2025-05-23 06:51] LABS: Lymphocytes Absolute Auto 1.10 K/uL (0.90-2.90); Slide Review Reflex No
[2025-05-23 07:00] VITALS: BP 174/70; PULSE 89; PULSE 91; RESP 22; TEMP 36.4; O2SAT 93
[2025-05-23 07:03] LABS: Chloride* 107 mmol/L (96-114); Sodium* 137 mmol/L (135-149)
[2025-05-23 07:07] LABS: Anion Gap 8 mEq/L (7-15); Blood Urea Nitrogen* 25 mg/dL (7-30); Calcium* 8.1 mg/dL (8.4-10.6); Carbon Dioxide* 22 mmol/L (20-32); Creatinine* 1.0 mg/dL (0.5-1.5); Est. Creatinine Clearance* 38.97; Estimated Glomerular Filt Rate 58 ml/min; Glucose* 151 mg/dL (60-115)
[2025-05-23 07:22] LABS: Potassium* 2.8 mmol/L (3.6-5.1)
[2025-05-23] MEDS: POTASSIUM BICARB 25 MEQ EFFERVESCENT TAB 50 MEQ PO (08:34)
[2025-05-23] MEDS: PREGABALIN 50 MG CAPSULE PO (08:35)
[2025-05-23] MEDS: METOPROLOL SUCCINATE (XL) 25 MG TAB PO (08:35)
[2025-05-23] MEDS: APIXABAN 5 MG TABLET 2.5 MG PO (08:35)
[2025-05-23] MEDS: CEFEPIME HCL 2 GM in 0.9 % SODIUM CHLORIDE Mini-bag 100 ML IVPB (08:36)
[2025-05-23] MEDS: DULOXETINE 30 MG CAPSULE DR 60 MG PO (08:36)
[2025-05-23] MEDS: SODIUM CHLORIDE 0.9 % (FLUSH) 10 ML SYRINGE 5 ML IVF (08:37)
--- NOTE | 2025-05-23 10:30 | P.DS_ITS ---
Transfer Discharge Sum: Prov Provider Date Seen: 05/23/25 Date of admission: 05/21/25 16:43 Primary care physician: Kyle Healy MD Admitting clinician: Alejandro Vasquez Consults: PT, OT, ID Attending physician on discharge: Glenna Rodgers Anticipated date of transfer: 05/23/25 Receiving physician/facility: [facility] DS: Diagnosis Discharge Diagnosis (1) Sepsis: Status: Acute Problem details: - 05/21: presented with severe sepsis, improved with IVF boluses and IV hydrocortisone. Did not require pressors, Cefepime/Vancomycin initiated - 05/22: clinically improved, source remains unclear (reassuring UA, CTA of chest, CT A/P, skin exam), + BCX 07/30, TTE reassuring - 05/23: Both blood cultures from admission + for Strep Mutans, reviewed with Dr. Falcon of ID who recommends transfer for [facility] given this + h/o TAVR (2) Immunocompromised state due to drug therapy: Status: Chronic Problem details: - chronic prednisone 7.5mg daily plus leflunomide; in the month prior to admission was on Prednisone 20 mg Qday, tapered to 10mg QD, now on 7.5mg QD - IV steroids on admission, 48 hour course ends 05/23 at 1999 (3) Adrenal insufficiency due to steroid withdrawal: Status: Acute Problem details: - see above (4) Pancytopenia: Status: Chronic Problem details: - history of this, iatrogenic vs related to chronic disease. Notably normal WBC during this stay - 05/23: Hgb 10.7, platelets 77, WBC 10.6 (5) S/P TAVR (transcatheter aortic valve replacement): Status: Chronic Problem details: - s/p TAVR May 2023 [facility] with good results but complicated by bleeding from femoral artery (6) Chronic anticoagulation: Status: Chronic Problem details: - history of unprovoked PEs + paroxysmal atrial fibrillation - On apixaban 2.5 mg twice daily for VTE prophylaxis (7) Bronchiectasis: Status: Chronic Problem details: - Patient's pulmonology notes indicate a diagnosis of bronchiectasis with as sociated obstruction and wheezing - has not required any inhalers since TAVR (8) Paroxysmal atrial fibrillation: Status: Chronic Problem details: - currently SR (9) Fibromyalgia: Status: Chronic Problem details: - Lyrica and duloxetine (10) Rheumatoid arthritis: Status: Chronic Problem details: - currently on leflunomide, sulfasalazine and prednisone - over the years on: Humira, Orencia, Actemra, Remicade, are rituximab, Rinvoq, Enbrel. Has been on and off methotrexate for many years. (11) Lymphedema: Status: Chronic Problem details: - baseline, chronic (12) Physical deconditioning: Status: Chronic Problem details: - Baseline fairly severe physical deconditioning. Recently started therapy again Transfer Discharge Sum: Med Medications Active and Home Medications: Home Medications Lactobacillus acidophilus 0.5 mg (100 million cell) tablet 100 mmu cells PO DAILY 12/22/21 [History Confirmed 05/21/25] cholecalciferol (vitamin D3) 50 mcg (2,000 unit) capsule 50 mcg PO DAILY 01/16/22 [History Confirmed 05/21/25] multivitamin 1 tab PO QAM 01/16/22 [History Confirmed 05/21/25] sulfasalazine 500 mg tablet 1 g PO BID 12/29/23 [History Confirmed 05/21/25] valganciclovir 450 mg tablet 450 mg PO DAILY #90 tabs 05/10/24 [Rx Confirmed 05/21/25] rosuvastatin 5 mg tablet 5 mg PO HS #90 tabs 10/10/24 [Rx Confirmed 05/21/25] ascorbic acid (vitamin C) 500 mg tablet 500 mg PO QDAY 10/18/24 [History Conf irmed 05/21/25] folic acid 1 mg tablet 1 mg PO QDAY 10/18/24 [History Confirmed 05/21/25] leflunomide 20 mg tablet 20 mg PO DAILY 10/18/24 [History Confirmed 05/21/25] furosemide 40 mg tablet 40 mg PO DAILY #90 tabs 11/09/24 [Rx Confirmed 05/21/25] metoprolol succinate 25 mg tablet,extended release 24 hr 25 mg PO BID #180 tabs 11/22/24 [Rx Confirmed 05/21/25] apixaban 5 mg tablet (Eliquis) 2.5 mg (1/2 x 5 mg) PO BID #90 tabs 01/04/25 [Rx Confirmed 05/21/25] potassium chloride 10 mEq capsule,extended release 10 meq PO DAILY #90 caps 01/22/25 [Rx Confirmed 05/21/25] nystatin 100,000 unit/gram topical powder 1 applic topical BID PRN 02/02/25 [History Confirmed 05/21/25] prednisone 5 mg tablet 7.5 mg PO DAILY 02/02/25 [History Confirmed 05/21/25] pregabalin 50 mg capsule 50 mg PO BID #180 caps 02/21/25 [Rx Confirmed 05/21/25] hydrocodone 5 mg-acetaminophen 325 mg tablet 1 tab PO BID PRN pain #60 tabs 04/30/25 [Rx Confirmed 05/21/25] duloxetine 60 mg capsule,delayed release 60 mg PO DAILY #90 caps 05/21/25 [Rx Confirmed 05/21/25] Active Medications Acetaminophen (Acetaminophen 325 Mg Tablet) 650 mg PO Q4H PRN Last Admin: 05/22/25 02:18 Dose: 650 mg Hydrocodone Bitart/Acetaminophen (Hydrocodone-Acetamin 5-325 Mg 1 Tab) 1 - 2 tab PO TID PRN PRN Reason: Pain Last Admin: 05/23/25 08:46 Dose: 2 tab Apixaban (Apixaban 5 Mg Tablet) 2.5 mg PO BID MICHELLE Last Admin: 05/23/25 08:35 Dose: 2.5 mg Artificial Tears (Carboxymethylcellulose (Refresh Plus) Tears) 1 drop EYE-BOTH BID PRN PRN Reason: Ocular lubricant Last Admin: 05/21/25 21:15 Dose: 1 drop Duloxetine HCl (Duloxetine [address]) 60 mg PO DAILY [facility] Last Admin: 05/23/25 08:36 Dose: 60 mg Hydrocortisone Sodium Succinate (Hydrocortisone Sod Succinate 50 Mg/Ml Inj) 50 mg IVP Q6H MICHELLE Last Admin: 05/23/25 08:35 Dose: 50 mg Vancomycin/PEG/NADA/Lysine/Water (Vancomycin 1.75 Gm/350 Ml) 1.75 gm in 350 mls @ 200 mls/hr IVPB Q24H MICHELLE; Protocol Last Infusion: 05/22/25 21:46 Dose: Infused Lactated Ringer's (Lactated Ringers 1000 Ml) 1,000 mls @ 75 mls/hr IV .[id number] [facility] Last Admin: 05/23/25 06:00 Dose: Not Given Cefepime HCl 2 gm/ Sodium (Chloride) 100 mls @ 200 mls/hr IVPB Q12H [facility] Last Admin: 05/23/25 08:36 Dose: 200 mls/hr IV Miscellaneous Supplies (Pharmacist Consult) 1 each MC Q24H [facility]; Protocol Melatonin (Melatonin 3 Mg Tablet) 3 mg PO HS PRN Metoprolol Succinate (Metoprolol Succinate (Xl) 25 Mg Tab) 25 mg PO BID [facility] Last Admin: 05/23/25 08:35 Dose: 25 mg Valganciclovir 450 (Mg Tablet) 0 mg PO DAILY [facility] Last Admin: 05/23/25 08:38 Dose: 450 mg Leflunomide 20 Mg (Tablet) 0 mg PO DAILY [facility] Ondansetron HCl (Ondansetron 2 Mg/Ml Inj) 4 mg IVP Q4H PRN PRN Reason: Nausea Perflutren Lipid Microsphere (Perflutren Lipid Microspheres 2 Ml Vial) 2 ml IVP ONCE PRN Last Admin: 05/22/25 16:10 Dose: 2 ml Pregabalin (Pregabalin 50 Mg Capsule) 50 mg PO BID [facility] Last Admin: 05/23/25 08:35 Dose: 50 mg Rosuvastatin Calcium (Rosuvastatin Calcium 10 Mg Tablet) 5 mg PO HS [facility] Last Admin: 05/22/25 21:20 Dose: 5 mg Sodium Chloride (Sodium Chloride 0.9 % (Flush) 10 Ml Syringe) 5 ml IVF BID [facility] Last Admin: 05/23/25 08:37 Dose: 5 ml Sodium Chloride (Sodium Chloride 0.9 % (Flush) 10 Ml Syringe) 5 ml IVF .FLUSH PRN Last Admin: 05/22/25 14:00 Dose: 5 ml Transfer Discharge Sum: Hosp Hospital Course Hospital course: Tanner James is a 79 year old female who presented to the ER on 05/21 with a fever of 101.2, hypotension, hypoxia, weakness. Labs and imaging did not reveal a source of her severe sepsis picture. TTE reassuring/baseline. Comorbidities include rheumatoid arthritis, history of TAVR 05/2023, chronic steroid use, fibromyalgia, paroxysmal AFib and history of PEs, anticoagulated on Eliquis. She was admitted on Vancomcyin and Cefepime, in addition to stress dose steroids, clinically improved. Blood cultures +; on 05/23 both of her admission blood cultures resulted as Strep Mutans. Had been to the dentist 10 days ago; had XRays taken but aborted a formal cleaning as she had forgotten to premedicate with Amoxicillin. Reviewed blood culture results with ID who agrees that patient needs transfer to tertiary care center for [facility]ANNON, discussed with Dr. Hernández who accepts patient in transfer on 05/23/25. Time Spent with Patient Time attestation: Total time spent providing and/or coordinating transfer services: Total time spent: Greater than 30 minutes Exam Narrative: Exam Narrative: GEN: Alert and oriented, sitting up in bed and answering questions appropriately HEENT: EOMIs bilaterally, no scleral icterus CV: RRR, blowing early systolic murmur heard across precordium R: Intermittently tachypneic, fine bibasilar rales, air movement adequate Ext: Bilateral lower extremity lymphedema, wearing edema wear Skin: Scattered bruising of extremities, no other concerning findings Neuro: Nonfocal, no resting tremor, gait not observed Psych: Appropriate Const: Vital Signs, click to edit/add: Vital Signs - 24 hr 05/22/25 12:00 05/22/25 12:20 05/22/25 14:00 Temperature 98.1 F 98.0 F Pulse Rate 96 Pulse Rate [Pulse Oximeter] 85 91 Respiratory Rate 24 20 Blood Pressure [Le ft Arm] 177/68 H 139/81 Pulse Oximetry 98 97 Oxygen Delivery Me thod Room Air Room Air Oxygen Flow Rate 05/22/25 15:00 05/22/25 15:00 05/22/25 16:00 Temperature 98.2 F Pulse Rate Pulse Rate [Pulse Oximeter] 91 Respiratory Rate 24 24 Blood Pressure [Le ft Arm] 136/56 L Pulse Oximetry 93 93 [facility] Flow Rate 05/22/25 16:00 05/22/25 19:00 05/22/25 23:00 Temperature 98.2 F Pulse Rate 92 85 Pulse Rate [Pulse Oximeter] 92 Respiratory Rate 22 Blood Pressure [Le ft Arm] 146/85 H Pulse Oximetry 97 Oxygen Delivery Wi thod Room Air Oxygen Flow Rate 05/22/25 23:00 05/22/25 23:00 05/22/25 23:00 Temperature 97.8 F Pulse Rate Pulse Rate [Pulse Oximeter] 89 89 Respiratory Rate 22 22 22 Blood Pressure [Le ft Arm] 150/66 H Pulse Oximetry 93 93 Oxygen Delivery Me thod Room Air Room Air Oxygen Flow Rate 05/23/25 03:00 05/23/25 07:00 05/23/25 07:00 Temperature 97.6 F 97.6 F Pulse Rate 89 Pulse Rate [Pulse Oximeter] 89 91 Respiratory Rate 20 22 Blood Pressure [Le ft Arm] 160/62 H 174/70 H Pulse Oximetry 93 93 Oxygen Delivery Me thod Room Air Room Air Oxygen Flow Rate 05/23/25 07:00 05/23/25 07:00 Temperature Pulse Rate Pulse Rate [Pulse Oximeter] 91 Respiratory Rate 22 22 Blood Pressure [Le ft Arm] Pulse Oximetry 93 Oxygen Delivery Me thod Room Air Oxygen Flow Rate 1 Transfer Discharge Sum: Data Data Completed and Pending Completed studies during hospitalization: Procedures Drainage of Right Pleural Cavity, Percutaneous Approach, Diagnostic (12/21/21) Insertion of Infusion Device into Left Internal Jugular Vein, Percutaneous Approach (12/21/21) Introduction of Other Gas into Respiratory Tract, Via Natural or Artificial Opening (04/26/23) Transfusion of Nonautologous Red Blood Cells into Peripheral Vein, Percutaneous Approach (01/15/24) Discharge Plan Discharge Disposition: General Acute Hospital Date of Admission: 05/21/25 16:43 Attending Provider on Discharge: Glenna Rodgers Primary Care Provider: Kyle Healy Discharge Orders: Transfer of Care to Other Hospital (ORDER); Ordered 05/23/25 Ordered By: Glenna Rodgers Oxygen: Yes Oxygen Delivery Method: Nasal Cannula Oxygen Flow Rate: 1-2 Urinary Catheter: No Services not available here: [facility]
[2025-05-23 11:00] VITALS: BP 174/67; PULSE 90; RESP 18; TEMP 36.6; O2SAT 97
--- NOTE | 2025-05-23 11:16 | PC.SOCIAL ---
Addendum entered by VISHAL Correa 05/23/25 12:01: Discharge planning: Pt will transfer to [facility] for [facility] today. This social services analyst notified Jannie at [facility] and also faxed over the pt's discharge summary to [facility] at fax number #[phone]. This social services analyst also notified [facility] of the pt's transfer status. Social work to follow-up as needed. Original Note: Discharge planning: janitorial maintenance worker notified Jannie Pineda RN at [facility] today that the pt will most likely be transferring to a different hospital for a higher level of care. Social work to follow-up as needed.
[2025-05-23] MEDS: VANCOMYCIN 1.75 GM/350 ML 1.75 GM/350 ML PIGGYBACK IVPB (12:44)
[2025-05-23 15:00] VITALS: RESP 18; O2SAT 97
[2025-05-23 16:00] VITALS: BP 167/78; PULSE 86; RESP 18; TEMP 36.3; O2SAT 95
--- NOTE | 2025-05-23 19:20 | PC.NURSE ---
VSS, transferred to higher level of care via EMS
--- NOTE | 2025-05-23 20:34 | PC.NURSE ---
Chart accessed by this rfp writer at this time as pharmacist from [facility] called for clarification question on Vancomycin ordered as well as an RN from [place] requesting H&P and d/c summary be refaxed as not all of this information was received by [facility]. [facility] refaxed requested paperwork to number [phone] that was provided.
== END 2025-05-23 18:15 | disposition short-term general hospital (02) | DRG 871 ==
LOC: ED 14:55 → MEDSURG 16:43
PROVIDERS: Admitting Provider Family Medicine; Emergency Provider Family Medicine; PCP Family Medicine; Visit Provider Family Medicine
DX: A41.9 Sepsis, unspecified organism (principal); I21.A1 Myocardial infarction type 2; D84.821 Immunodeficiency due to drugs; D61.818 Other pancytopenia; E27.3 Drug-induced adrenocortical insufficiency; Z68.42 Body mass index [BMI] 45.0-49.9, adult; R65.20 Severe sepsis without septic shock; B96.89 Other specified bacterial agents as the cause of diseases classified elsewhere; I48.0 Paroxysmal atrial fibrillation; M79.7 Fibromyalgia; M06.9 Rheumatoid arthritis, unspecified; I25.10 Atherosclerotic heart disease of native coronary artery without angina pectoris; J47.9 Bronchiectasis, uncomplicated; I89.0 Lymphedema, not elsewhere classified; R53.81 Other malaise; I50.9 Heart failure, unspecified; Z79.899 Other long term (current) drug therapy; Z79.01 Long term (current) use of anticoagulants; T38.0X5A Adverse effect of glucocorticoids and synthetic analogues, initial encounter; Z95.2 Presence of prosthetic heart valve; I25.2 Old myocardial infarction; Z66 Do not resuscitate; Z86.711 Personal history of pulmonary embolism; E66.01 Morbid (severe) obesity due to excess calories; Z90.5 Acquired absence of kidney
CPT/HCPCS: 36415; 51798; 70450; 71045; 71275; 74177; 80048; 80053; 80076; 81001; 82248; 82803; 83605; 83880; 84484; 85025; 86140; 87040; 87086; 87186; 87631; 93005; 93306; 94761; 97161; 97165; 97530; 97535; 99285; 99291; 99292; A9270; J0131; J0692; J1720; J1938; J3375; J7030; J7120; Q9957; Q9967

== ENCOUNTER 2025-05-23 18:20 | Outpatient (CLI) | payer MEDICARE, OTHER, SELFPAY | END 2025-05-23 18:21 | disposition home or self-care (01) | LOC: AMB 05-25 23:49 | PROVIDERS: PCP Family Medicine; Visit Provider Family Medicine | DX: R78.81 Bacteremia (principal); D84.821 Immunodeficiency due to drugs; D61.818 Other pancytopenia | CPT/HCPCS: A0425; A0427 ==